=== PATIENT | female | born 1945 | race Hispanic/Latino ===

== ENCOUNTER 2021-03-24 02:32 | Observation (INO) | payer OTHER ==
[2021-03-24] MEDS ORDERED: D5 0.45 NS 0 ML IV ONE ×2 (02:41→08:39)
--- OUTSIDE RECORDS SUMMARY | 2021-03-24 02:44 | XMS REPORT | Continuity of Care Document ---
:1945 Author Organization [place] [facility] t Address [address] [place] [address] Care Team Providers Name Role Phone LINDY, Sunday Primary Care Physician Unavailable Mansoor Gallo Attending Clinician Unavailable JAMAR LAN Attending Clinician Unavailable Jamar Lan MD Attending Clinician Only, Test Attending Clinician Unavailable Doctor Unassigned, Name Attending Clinician Unavailable Lindy SUH, Sunday Attending Clinician Pob, Lab Main Attending Clinician Unavailable LINDY, Sunday Attending Clinician Unavailable JAMAR LAN Admitting Clinician Unavailable Jamar Lan MD Admitting Clinician Payers Payer Name Policy Type Policy Number Effective Date Expiration Date Anahy asher [employer] [id number] 2020spring 00:00:00 MEDICARE PART A [id number] 2000 \\T\\ B 00:00:00 Problems Condition Condition Condition Status Onset Resolution Last Treating Co mments Source Name Details Category Date Date Treatment Clinician Date Cervical Cervical Disease Active Unive rs nerve root nerve root 3-08 [place] Spinal Spinal Disease Active Univers stenosis stenosis 3-08 [place] of of lumbar of [place] without without Branch neurogenic neurogenic claudicati claudicati on on Decreased Decreased Disease Active Uni vers activities activities 3-08 it y of of daily of daily 00:00: [place] living living 00 Medical (ADL) (ADL) Branch Chronic Chronic Disease Active Univers midline midline 3-08 ity of low back low back 00:00: [place] pain with pain with 00 Medi charito right-side right-side Br anch d sciatica d sciatica Vitamin B1 Vitamin B1 Disease Active U nivers deficiency deficiency 3-08 it y of 00:00: [place] [facility] B12 B12 Disease Active Univers deficiency deficiency 3-08 it y of 00:00: [place] [facility] Pyridoxine 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 3-08 it y of 00:00: [place] [facility] Vitamin D Vitamin D Disease Active Uni vers deficiency deficiency 3-08 it y of 00:00: [place] 00 Medical Branch Hypothyroi Hypothyroi Disease Active U nivers dism dism 2-19 ity of (acquired) (acquired) 00:[place] [facility] [place] Glaucoma Glaucoma Disease Active Unive rs suspect of suspect of 3-04 it y of both eyes both [facility] Senile Senile Disease Active Univers nuclear 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 00:[place] [facility] [place] Diabetes 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 00:00: [place] without without 00 Medical retinopath retinopath Br anch y y Osteopenia Osteopenia Disease Active U nivers 3-05 ity of 00:00: [place] 00 Medical Branch Arthropath Arthropath Disease Active Overview : Univers y of hand y of hand 3-05 ICD10 ity of 00:00: Diagnosis Term Medical 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 ICD10 Diagnosis Term Unified [employer] Engineer Utility Generalize Generalize Disease Active U nivers d d 08-25 ity of osteoarthr osteoarthr 00:00: [place] osis, osis, 00 Medical unspecifie unspecifie Br anch d site d site Allergies, Adverse Reactions, Alerts Allergy Allergy Status Severity Reaction(s) Onset Inactive Treating Comm ents Source Name Type Date Date Clinician Iodine Propensi Active Hives 2005-02 Univers ty to 02-14 ity of adverse 00:00: [place] reaction 00 Medical s Branch IODINE DRUG Active Hives 2005-02 Univers INGREDI 02-14 ity of 00:00: [place] 00 Medical Branch Codeine Propensi Active Rash Univers ty to 12 ity of adverse 00:00: [place] reaction 00 Medical s Branch CODEINE DRUG Active Rash Univers INGREDI 12 ity of 00:00: [place] 00 Medical Branch Social History Social Habit Start Date Stop Date Quantity Comments Source Exposure to Not sure [facility] SARS-CoV-2 [place] Medical (event) Branch Alcohol intake 2020-11-25 2020-11-25 Current University of 00:00:00 00:00:00 non-drinker of [facility] alcohol Branch (finding) Tobacco use and 2020-10-21 2020-10-21 Never used Universit y of exposure 00:00:00 00:00:00 [facility] Sex [birth year] Universit y of 00:00:00 00:00:00 [facility] Smoking Status Start Date Stop Date Source Never smoker [facility] Medications Ordered Filled Start Stop Current Ordering Indication Dosage Frequency Signature Comments Components Source Medication Medication Date Date Medication? Clinician (SIG) Name Name tetracaine 2020-02 Yes PRN, Univers (PONTOCAINE 0-14 Starting ity of ) 0.5 % 14:59: on [facility] ophthalmic 00 11/27/20 Medic al drops at 0959, Branch Until Discontinu ed, Routine, Intra-op gentamicin 2020-02 Yes PRN, Univers injection 0-14 Starting ity of 14:59: on [facility] 00 11/27/20 Medical at 0959, [place] Until Discontinu ed, JAYLEN, Intra-op eye block 2020-02 Yes PRN, Univers syringe 11 0-14 Starting ity o f mL 14:59: on [facility] 11/27/20 Medical at 0959, [place] Until Discontinu ed, Intra-op EPINEPHrine 2020-02 Yes PRN, Univer s (PF) 0-14 Starting ity of 1:1,000 (1 14:59: on [facility] mg/mL) 00 11/27/20 Medical (ADRENALIN at 0959, Bran h (PF)) Until injection Discontinu ed, Routine, Intra-op DUOVISC 2020-02 Yes PRN, Univers (DUOVISC 0-14 Starting ity of VISCO 14:59: on [facility] ELASTIC) 3 00 11/27/20 Medic al %-4 %(0.5 at 0959, Branch mL) 1 % Until (0.55 mL) Discontinu intraocular ed, injection Routine, Intra-op tetracaine 2020-02- No PRN, Univer s (PONTOCAINE 0-14 10-14 Starting ity of ) 0.5 % 14:59: 18:15 on [facility] ophthalmic 00 :30 11/27/20 Medic al drops at 0959, Branch Until [facility] 11/27/20 at 1315, Routine, Intra-op gentamicin 2020-02- No PRN, Univer s injection 0-14 10-14 Starting ity o f 14:59: 18:15 on [facility] [place] 00 :30 11/27/20 Medical at 0959, Branch Until [facility]ya 11/27/20 at 1315, JAYLEN, Intra-op eye block 2020-02- No PRN, Univers syringe 11 0-14 14 Starting ity of mL 14:59: 18:15 on [facility] [place] 00 :30 11/27/20 Medical at 0959, Branch Until [facility]ya 11/27/20 at 1315, Intra-op EPINEPHrine 2020-02- No PRN, Unive rs (PF) 0-14 14 Starting ity of 1:1,000 (1 14:59: 18:15 on [place] mg/mL) 00 :30 11/27/20 Medical (ADRENALIN at 0959, Bran h (PF)) Until Niya injection 11/27/20 at 1315, Routine, Intra-op DUOVISC 2020-02- No PRN, Univers (DUOVISC 0-11-27 Starting ity of VISCO 14:59: 18:15 on [facility] [place] ELASTIC) 3 00 :30 11/27/20 Medic al %-4 %(0.5 at 0959, Branch mL) 1 % Until Niya (0.55 mL) 11/27/20 intraocular at 1315, injection Routine, Intra-op dexamethaso 2020-02 Yes PRN, Univer s ne 0-14 Starting ity of (DECADRON 14:58: on [facility] [place] PHOSPHATE) 00 11/27/20 Medic al injection at 0958, Branch Until Discontinu ed, Routine, Intra-op ceFAZolin 2020-02 Yes CONTINUOUS Un concepción (ANCEF) 0-14 PRN, ity of injection 14:58: [place] 00 on [facility] Medical 11/27/20 Branch at 0958, Until Discontinu ed, JAYLEN, Intra-op dexamethaso 2020-02- No PRN, Unive rs ne 0-14 10-14 Starting ity of (DECADRON 14:58: 18:15 on [facility] [place] PHOSPHATE) 00 :30 11/27/20 Medic al injection at 0958, Branch Until Niya 11/27/20 at 1315, Routine, Intra-op ceFAZolin 2020-02- No CONTINUOUS U nivers (ANCEF) 0-14 10-14 PRN, ity of injection 14:58: 18:15 Starting [place] 00 :30 on [facility] Medical 11/27/20 Branch at 0958, Until [place] 11/27/20 at 1315, JAYLEN, Intra-op balanced 2020-02 Yes PRN, Univers salt soln 0-14 Starting ity of no.2 irrig. 14:57: on [place] (BSS) 00 11/27/20 Medical ophthalmic at 0957, Branc h solution Until Discontinu ed, Routine, Intra-op balanced 2020-02- No PRN, Univers salt soln 0-14 10-14 Starting ity o f no.2 irrig. 14:57: 18:15 on [place] (BSS) 00 :30 11/27/20 Medical ophthalmic at 0957, Branc h solution Until Niya 11/27/20 at 1315, Routine, Intra-op mydriatic 2020-02- No .5mL 0.5 mL, Univ ers #5 0-14 10-14 Right Eye, ity of ophthalmic 12:45: 13:03 ONCE, 1 [place] solution 00 :00 dose, On Medical 0.5 mL [facility]ya Branch syringe 11/27/20 at 0745, Routine, DSU Pre-op lactated 2020-02- No 1000mL at 42 Unive rs ringers IV 0-14 10-14 mL/hr, ity of infusion 12:45: 13:03 1,000 mL, [place] 1,000 mL 00 :00 IV Medical Infusion, Branch ONCE, 1 dose, On [place]ya 11/27/20 at 0745, Routine, DSU Pre-op mydriatic 2020-02- No .5mL 0.5 mL, Univ ers #5 0-14 10-14 Right Eye, ity of ophthalmic 12:45: 13:03 ONCE, 1 [place] solution 00 :00 dose, On Medical 0.5 mL [place] Branch syringe 11/27/20 at 0745, Routine, DSU Pre-op lactated 2020-02- No 1000mL at 42 Unive rs ringers IV 0-14 10-14 mL/hr, ity of infusion 12:45: 13:03 1,000 mL, [place] 1,000 mL 00 :00 IV Medical Infusion, Branch ONCE, 1 dose, On Niya 11/27/20 at 0745, Routine, DSU Pre-op BD VEO 2020-02 Yes [id number] USE Univ ers INSULIN 0-04 DIRECTED 4 ity of SYR, HALF 00:00: TIMES [place] UNIT, 0.3 00 DAILY Medical mL 31 gauge Branch x 15/64" Syrg BD VEO 2020-02 Yes [id number] USE Univ ers INSULIN 0-04 DIRECTED 4 ity of SYR, HALF 00:00: TIMES [place] UNIT, 0.3 00 DAILY Medical mL 31 gauge Branch x 15/64" Syrg BD VEO 2020-02 Yes [id number] USE Univ ers INSULIN 0-04 DIRECTED 4 ity of SYR, HALF 00:00: TIMES [place] UNIT, 0.3 00 DAILY Medical mL 31 gauge Branch x 15/64" Syrg gentamicin Yes PRN, Univers injection 10-23 Starting ity of 14:04: Niya 10/23/20 [place] 00 at 0904, Medical Until Branch Discontinu ed, JAYLEN, Intra-op EPINEPHrine Yes PRN, Univer s (PF) 10-23 Starting ity of 1:1,000 (1 14:04: [place] 10/23/20 [place] mg/mL) 00 at 0904, Medical (ADRENALIN Until Branch (PF)) Discontinu injection ed, Routine, Intra-op gentamicin Yes PRN, Univers injection 10-23 Starting ity of 14:04: [facility] 10/23/20 [place] 00 at 0904, Medical Until Branch Discontinu ed, JAYLEN, Intra-op EPINEPHrine Yes PRN, Univer s (PF) 10-23 Starting ity of 1:1,000 (1 14:04: [place] 10/23/20 [place] mg/mL) 00 at 0904, Medical (ADRENALIN Until Branch (PF)) Discontinu injection ed, Routine, Intra-op gentamicin 2020- No PRN, Univer s injection 10-23 Starting ity o f 14:04: 17:14 [facility]ya 10/23/20 [place] 00 :08 at 0904, Medical Until Niya Branch 10/23/20 at 1214, JAYLEN, Intra-op EPINEPHrine 2020- No PRN, Unive rs (PF) 10-23 Starting ity of 1:1,000 (1 14:04: 17:14 Niya 10/23/20 [place] mg/mL) 00 :08 at 0904, Medical (ADRENALIN Until Niya Bran ch (PF)) 10/23/20 at injection 1214, Routine, Intra-op gentamicin 2020- No PRN, Univer s injection 10-23 Starting ity o f 14:04: 17:14 Niya 10/23/20 [place] 00 :08 at 0904, Medical Until Niya Branch 10/23/20 at 1214, JAYLEN, Intra-op EPINEPHrine 2020- No PRN, Unive rs (PF) 10-23 Starting ity of 1:1,000 (1 14:04: 17:14 [facility]ya 10/23/20 [place] mg/mL) 00 :08 at 0904, Medical (ADRENALIN Until Niya Bran ch (PF)) 10/23/20 at injection 1214, Routine, Intra-op dexamethaso Yes PRN, Univer s ne 10-23 Starting ity of (DECADRON 14:03: [place] 10/23/20 [place] PHOSPHATE[place] 00 at 0903, Medic al injection Until Branch Discontinu ed, Routine, Intra-op ceFAZolin 0 Yes PRN, Univers (ANCEF) 10-23 Starting ity of injection 14:03: [place] 10/23/20 [place] 00 at 09, Medical Until Branch Discontinu ed, JAYLEN, Intra-op balanced 0 Yes PRN, Univers salt soln 10-23 Starting ity of no.2 irrig. 14:03: [place] 10/23/20 [place] (BSS) 00 at 09, Medical ophthalmic Until Branch solution Discontinu ed, Routine, Intra-op dexamethaso 0 Yes PRN, Univer s ne 10-23 Starting ity of (DECADRON 14:03: [place] 10/23/20 [place] PHOSPHATE[place] 00 at 0903, Medic al injection Until Branch Discontinu ed, Routine, Intra-op ceFAZolin Yes PRN, Univers (ANC) 10-23 Starting ity of injection 14:03: [place] 10/23/20 [place] 00 at 0903, Medical Until Branch Discontinu ed, JAYLEN, Intra-op balanced Yes PRN, [facility] 10-23 Starting ity of no.2 irrig. 14:03: [place] 10/23/20 [place] (BSS) 00 at 0903, Medical ophthalmic Until Branch solution Discontinu ed, Routine, Intra-op dexamethaso 2020- No PRN, Unive rs ne 10-23 Starting ity of (DECADRON 14:03: 17:14 [place] 10/23/20 [place] PHOSPHATE) 00 :08 at 09, Medic al injection Until Niya Branc h 10/23/20 at 1214, Routine, Intra-op ceFAZolin 2020- No PRN, Univers (ANC) 10-23 Starting ity of injection 14:03: 17:14 [place] 10/23/20 [place] 00 :08 at 0903, Medical Until [facility] Branch 10/23/20 at 1214, JAYLEN, Intra-op balanced 2020- No PRN, [facility] 10-23 Starting ity o f no.2 irrig. 14:03: 17:14 [place]ya 10/23/20 [place] (BSS) 00 :08 at 0903, Medical ophthalmic Until Niya Bran ch solution 10/23/20 at 1214, Routine, Intra-op dexamethaso 2020- No PRN, Unive rs ne 10-23 Starting ity of (DECADRON 14:03: 17:14 [place] 10/23/20 [place] PHOSPHATE) 00 :08 at 0903, Medic al injection Until Niya Branc h 10/23/20 at 1214, Routine, Intra-op ceFAZolin 2020- No PRN, Univers (ANC) 10-23 Starting ity of injection 14:03: 17:14 [place] 10/23/20 [place] 00 :08 at 0903, Medical Until [facility] Branch 10/23/20 at 1214, JAYLEN, Intra-op balanced 2020- No PRN, Univers [facility] soln 10-23 Starting ity o f no.2 irrig. 14:03: 17:14 Niya 10/23/20 [place] (BSS) 00 :08 at 0903, Medical ophthalmic Until Niya Bran ch solution 10/23/20 at 1214, Routine, Intra-op mydriatic 2020- No .5mL 0.5 mL, Univ ers #5 10-23 Left Eye, ity of ophthalmic 12:15: 12:22 ONCE, 1 [place] solution 00 :00 dose, Niya Medica l 0.5 mL 10/23/20 at Branch syringe 0715, Routine, DSU Pre-op lactated 2020- No 1000mL at 42 [facility] [place] [facility]ers IV 10-23 mL/hr, ity of infusion 12:15: 12:22 1,000 mL, [place] 1,000 mL 00 :00 IV Medical Infusion, Branch ONCE, 1 dose, Niya 10/23/20 at 0715, Routine, DSU Pre-op mydriatic 2020- No .5mL 0.5 mL, Univ ers #5 10-23 Left Eye, ity of ophthalmic 12:15: 12:22 ONCE, 1 [place] solution 00 :00 dose, Niya Medica l 0.5 mL 10/23/20 at Branch syringe 0715, Routine, DSU Pre-op lactated 2020- No 1000mL at 42 [facility] [place] [facility] ringers IV 10-23 mL/hr, ity of infusion 12:15: 12:22 1,000 mL, [place] 1,000 mL 00 :00 IV Medical Infusion, Branch ONCE, 1 dose, Niya 10/23/20 at 0715, Routine, DSU Pre-op mydriatic 2020- No .5mL 0.5 mL, Univ ers #5 10-23 Left Eye, ity of ophthalmic 12:15: 12:22 ONCE, 1 [place] solution 00 :00 dose, Niya Medica l 0.5 mL 10/23/20 at Branch syringe 0715, Routine, DSU Pre-op lactated 2020- No 1000mL at 42 Unive rs ringers IV 10-23 mL/hr, ity of infusion 12:15: 12:22 1,000 mL, [place] 1,000 mL 00 :00 IV Medical Infusion, Branch ONCE, 1 dose, Niya 10/23/20 at 0715, Routine, DSU Pre-op mydriatic 2020- No .5mL 0.5 mL, Univ ers #5 10-23 Left Eye, ity of ophthalmic 12:15: 12:22 ONCE, 1 [place] solution 00 :00 dose, Niya Medica l 0.5 mL 10/23/20 at Branch syringe 0715, Routine, DSU Pre-op lactated 2020- No 1000mL at 42 Unive rs ringers IV 10-23 mL/hr, ity of infusion 12:15: 12:22 1,000 mL, [place] 1,000 mL 00 :00 IV Medical Infusion, Branch ONCE, 1 dose, Niya 10/23/20 at 0715, Routine, DSU Pre-op BD VEO 2020-0 Yes [id number] USE Univ ers INSULIN 8-19 DIRECTED 4 ity of SYRINGE UF 00:00: TIMES [place] 0.3 mL DAILY Medical gauge x Branch 15/64" Syrg BD VEO 2020-0 Yes [id number] USE Univ ers INSULIN 8-19 DIRECTED 4 ity of SYRINGE UF 00:00: TIMES [place] 0.3 mL DAILY Medical gauge x Branch 15/64" Syrg BD VEO 2020-0 Yes [id number] USE Univ ers INSULIN 8-19 DIRECTED 4 ity of SYRINGE UF 00:00: TIMES [place] 0.3 mL DAILY Medical gauge x Branch 15/64" Syrg BD VEO 2020-0 Yes [id number] USE Univ ers INSULIN 8-19 DIRECTED 4 ity of SYRINGE UF 00:00: TIMES [place] 0.3 mL DAILY Medical gauge x Branch 15/64" Syrg BD VEO 2020-0 Yes [id number] USE Univ ers INSULIN 8-19 DIRECTED 4 ity of SYRINGE UF 00:00: TIMES [place] 0.3 mL DAILY Medical gauge x Branch 15/64" Syrg BD VEO 2020-0 Yes [id number] USE Univ ers INSULIN 8-19 DIRECTED 4 ity of SYRINGE UF 00:00: TIMES [place] 0.3 mL 31 DAILY Medical gauge x Branch 15/64" Syrg BD VEO 2020-0 Yes [id number] USE Univ ers INSULIN 8-19 DIRECTED 4 ity of SYRINGE UF 00:00: TIMES [place] 0.3 mL 31 DAILY Medical gauge x Branch 15/64" Syrg BD VEO 2020-0 Yes [id number] USE Univ ers INSULIN 8-19 DIRECTED 4 ity of SYRINGE UF 00:00: TIMES [place] 0.3 mL DAILY Medical gauge x Branch 15/64" Syrg BD VEO 2020-0 Yes [id number] USE Univ ers INSULIN 8-19 DIRECTED 4 ity of SYRINGE UF 00:00: TIMES [place] 0.3 mL DAILY Medical gauge x Branch 15/64" Syrg BD VEO 2020-0 Yes [id number] USE Univ ers INSULIN 8-19 DIRECTED 4 ity of SYRINGE UF 00:00: TIMES [place] 0.3 mL DAILY Medical gauge x Branch 15/64" Syrg BD VEO 2020-0 Yes [id number] USE Univ ers INSULIN 8-19 DIRECTED 4 ity of SYRINGE UF 00:00: TIMES [place] 0.3 mL DAILY Medical gauge x Branch 15/64" Syrg BD VEO 2020-0 Yes [id number] USE Univ ers INSULIN 8-19 DIRECTED 4 ity of SYRINGE UF 00:00: TIMES [place] 0.3 mL 31 DAILY Medical gauge x Branch 15/64" Syrg BD VEO 2020-0 Yes [id number] USE Univ ers INSULIN 8-19 DIRECTED 4 ity of SYRINGE UF 00:00: TIMES [place] 0.3 mL DAILY Medical gauge x Branch 15/64" Syrg BD VEO 2020-0 Yes [id number] USE Univ ers INSULIN 8-19 DIRECTED 4 ity of SYRINGE UF 00:00: TIMES [place] 0.3 mL 31 DAILY Medical gauge x Branch 15/64" Syrg BD VEO 2020-0 Yes [id number] USE Univ ers INSULIN 8-19 DIRECTED 4 ity of SYRINGE UF 00:00: TIMES [place] 0.3 mL 31 DAILY Medical gauge x Branch 15/64" Syrg BD VEO 2020-0 Yes [id number] USE Univ ers INSULIN 8-19 DIRECTED 4 ity of SYRINGE UF 00:00: TIMES [place] 0.3 mL 31 00 DAILY Medical gauge x Branch " Syrg EUTHYROX 2020-0 Yes [id number] TAKE 1 Un concepción 125 mcg 7-30 TABLET BY ity of tablet 00:00: MOUTH ONCE [place] 00 DAILY IN [facility] MORNING EUTHYROX 2020-0 Yes [id number] TAKE 1 Un concepción 125 mcg 7-30 TABLET BY ity of tablet 00:00: MOUTH ONCE [place] 00 DAILY IN [facility] MORNING EUTHYROX 2020-0 Yes [id number] TAKE 1 Un concepción 125 mcg 7-30 TABLET BY ity of tablet 00:00: MOUTH ONCE [place] 00 DAILY IN [facility] MORNING EUTHYROX 2020-0 Yes [id number] TAKE 1 Un concepción 125 mcg 7-30 TABLET BY ity of tablet 00:00: MOUTH ONCE [place] 00 DAILY IN [facility] MORNING EUTHYROX 2020-0 Yes [id number] TAKE 1 Un concepción 125 mcg 7-30 TABLET BY ity of tablet 00:00: MOUTH ONCE [place] 00 DAILY IN [facility] MORNING EUTHYROX 2020-0 Yes [id number] TAKE 1 Un concepción 125 mcg 7-30 TABLET BY ity of tablet 00:00: MOUTH ONCE [place] 00 DAILY IN [facility] MORNING EUTHYROX 2020-0 Yes [id number] TAKE 1 Un concepción 125 mcg 7-30 TABLET BY ity of tablet 00:00: MOUTH ONCE [place] 00 DAILY IN [facility] MORNING EUTHYROX 2020-0 Yes [id number] TAKE 1 Un concepción 125 mcg 7-30 TABLET BY ity of tablet 00:00: MOUTH ONCE [place] 00 DAILY IN [facility] MORNING EUTHYROX 2020-0 Yes [id number] TAKE 1 Un concepción 125 mcg 7-30 TABLET BY ity of tablet 00:00: MOUTH ONCE [place] 00 DAILY IN [facility] MORNING EUTHYROX 2020-0 Yes [id number] TAKE 1 Un concepción 125 mcg 7-30 TABLET BY ity of tablet 00:00: MOUTH ONCE [place] 00 DAILY IN [facility] MORNING EUTHYROX 2020-0 Yes [id number] TAKE 1 Un concepción 125 mcg 7-30 TABLET BY ity of tablet 00:00: MOUTH ONCE [place] 00 DAILY IN [facility] MORNING EUTHYROX 2020-0 Yes [id number] TAKE 1 Un concepción 125 mcg 7-30 TABLET BY ity of tablet 00:00: MOUTH ONCE [place] 00 DAILY IN [facility] MORNING EUTHYROX 2020-0 Yes [id number] TAKE 1 Un concepción 125 mcg 7-30 TABLET BY ity of tablet 00:00: MOUTH ONCE [place] 00 DAILY IN [facility] MORNING EUTHYROX 2020-0 Yes [id number] TAKE 1 Un concepción 125 mcg 7-30 TABLET BY ity of tablet 00:00: MOUTH ONCE [place] 00 DAILY IN [facility] [place] MORNING EUTHYROX 2020-0 Yes [id number] TAKE 1 Un concepción 125 mcg 7-30 TABLET BY ity of tablet 00:00: MOUTH ONCE [place] 00 DAILY IN [facility] MORNING EUTHYROX 2020-0 Yes [id number] TAKE 1 Un concepción 125 mcg 7-30 TABLET BY ity of tablet 00:00: MOUTH ONCE [place] 00 DAILY IN [facility] MORNING EUTHYROX 2020-0 Yes [id number] TAKE 1 Un concepción 125 mcg 7-30 TABLET BY ity of tablet 00:00: MOUTH ONCE [place] 00 DAILY IN [facility] [place] MORNING PREGABALIN 2020-0 Yes [id number] Take 1 Univers 300 mg 6-05 capsule by ity of capsule 00:00: mouth [place] 00 twice Medical daily Branch PREGABALIN 2020-0 Yes [id number] Take 1 Univers 300 mg 6-05 capsule by ity of capsule 00:00: mouth [place] 00 twice Medical daily Branch PREGABALIN 2020-0 Yes [id number] Take 1 Univers 300 mg 6-05 capsule by ity of capsule 00:00: mouth [place] 00 twice Medical daily Branch PREGABALIN 2020-0 Yes [id number] Take 1 Univers 300 mg 6-05 capsule by ity of capsule 00:00: mouth [place] 00 twice Medical daily Branch PREGABALIN 2020-0 Yes [id number] Take 1 Univers 300 mg 6-05 capsule by ity of capsule 00:00: mouth [place] 00 twice Medical daily Branch PREGABALIN 2020-0 Yes [id number] Take 1 Univers 300 mg 6-05 capsule by ity of capsule 00:00: mouth [place] 00 twice Medical daily Branch PREGABALIN 2020-0 Yes [id number] Take 1 Univers 300 mg 6-05 capsule by ity of capsule 00:00: mouth [place] 00 twice Medical daily Branch PREGABALIN 2020-0 Yes [id number] Take 1 Univers 300 mg 6-05 capsule by ity of capsule 00:00: mouth twice Medical daily Branch PREGABALIN 2020-0 Yes [id number] Take 1 Univers 300 mg 6-05 capsule by ity of capsule 00:00: mouth twice Medical daily Branch PREGABALIN 2020-0 Yes [id number] Take 1 Univers 300 mg 6-05 capsule by ity of capsule 00:00: mouth twice Medical daily Branch PREGABALIN 2020-0 Yes [id number] Take 1 Univers 300 mg 6-05 capsule by ity of capsule 00:00: mouth twice Medical daily Branch PREGABALIN 2020-0 Yes [id number] Take 1 Univers 300 mg 6-05 capsule by ity of capsule 00:00: mouth twice Medical daily Branch PREGABALIN 2020-0 Yes [id number] Take 1 Univers 300 mg 6-05 capsule by ity of capsule 00:00: mouth twice Medical daily Branch PREGABALIN 2020-0 Yes [id number] Take 1 Univers 300 mg 6-05 capsule by ity of capsule 00:00: mouth twice Medical daily Branch PREGABALIN 2020-0 Yes [id number] Take 1 Univers 300 mg 6-05 capsule by ity of capsule 00:00: mouth twice Medical daily Branch PREGABALIN 2020-0 Yes [id number] Take 1 Univers 300 mg 6-05 capsule by ity of capsule 00:00: mouth twice Medical daily Branch PREGABALIN 2020-0 Yes [id number] Take 1 Univers 300 mg 6-05 capsule by ity of capsule 00:00: mouth twice Medical daily Branch PREGABALIN 2020-0 Yes [id number] Take 1 Univers 300 mg 6-05 capsule by ity of capsule 00:00: mouth twice Medical daily Branch PREGABALIN 2020-0 Yes [id number] Take 1 Univers 300 mg 6-05 capsule by ity of capsule 00:00: mouth twice Medical daily Branch PREGABALIN 2020-0 Yes [id number] Take 1 Univers 300 mg 6-05 capsule by ity of capsule 00:00: mouth twice Medical daily Branch PREGABALIN 2020-0 Yes [id number] Take 1 Univers 300 mg 6-05 capsule by [facility] capsule 00:00: mouth twice Medical daily Branch PREGABALIN 2020-0 Yes [id number] Take 1 [facility] 300 mg 6-05 capsule by [facility] capsule 00:00: mouth 00 twice Medical daily Branch METFORMIN 2020-0 Yes [id number] TAKE 1 [facility] 1,000 mg 3-19 TABLET BY [facility] tablet 00:00: MOUTH 00 TWICE Medical DAILY WITH Branch MEALS FOR DIABETES METFORMIN 2020-0 Yes [id number] TAKE 1 [facility] 1,000 mg 3-19 TABLET BY [facility] of tablet 00:00: MOUTH 00 TWICE Medical DAILY WITH Branch MEALS FOR DIABETES METFORMIN 2020-0 Yes [id number] TAKE 1 [facility] 1,000 mg 3-19 TABLET BY [facility] tablet 00:00: MOUTH 00 TWICE Medical DAILY WITH Branch MEALS FOR DIABETES METFORMIN 2020-0 Yes [id number] TAKE 1 [facility] 1,000 mg 3-19 TABLET BY [facility] tablet 00:00: MOUTH 00 TWICE Medical DAILY WITH Branch MEALS FOR DIABETES METFORMIN 2020-0 Yes [id number] TAKE 1 [facility] 1,000 mg 3-19 TABLET BY [facility] of tablet 00:00: MOUTH TWICE Medical DAILY WITH Branch MEALS FOR DIABETES METFORMIN 2020-0 Yes [id number] TAKE 1 [facility] 1,000 mg 3-19 TABLET BY [facility] of tablet 00:00: MOUTH TWICE Medical DAILY WITH Branch MEALS FOR DIABETES METFORMIN 2020-0 Yes [id number] TAKE 1 [facility] 1,000 mg 3-19 TABLET BY [facility] tablet 00:00: MOUTH TWICE Medical DAILY WITH Branch MEALS FOR DIABETES METFORMIN 2020-0 Yes [id number] TAKE 1 [facility] 1,000 mg 3-19 TABLET BY [facility] of tablet 00:00: MOUTH TWICE Medical DAILY WITH Branch MEALS FOR DIABETES METFORMIN 2020-0 Yes [id number] TAKE 1 [facility] 1,000 mg 3-19 TABLET BY [facility] of tablet 00:00: MOUTH 00 TWICE Medical DAILY WITH Branch MEALS FOR DIABETES METFORMIN 2020-0 Yes [id number] TAKE 1 [facility] 1,000 mg 3-19 TABLET BY [facility] of tablet 00:00: MOUTH 00 TWICE Medical DAILY WITH Branch MEALS FOR DIABETES METFORMIN 2020-0 Yes [id number] TAKE 1 [facility] 1,000 mg 3-19 TABLET BY [facility] of tablet 00:00: MOUTH 00 TWICE Medical DAILY WITH Branch MEALS FOR DIABETES METFORMIN 2020-0 Yes [id number] TAKE 1 [facility] 1,000 mg 3-19 TABLET BY [facility] of tablet 00:00: MOUTH 00 TWICE Medical DAILY WITH Branch MEALS FOR DIABETES METFORMIN 2020-0 Yes [id number] TAKE 1 [facility] 1,000 mg 3-19 TABLET BY [facility] of tablet 00:00: MOUTH 00 TWICE Medical DAILY WITH Branch MEALS FOR DIABETES METFORMIN 2020-0 Yes [id number] TAKE 1 [facility] 1,000 mg 3-19 TABLET BY [facility] of tablet 00:00: MOUTH 00 TWICE Medical DAILY WITH Branch MEALS FOR DIABETES METFORMIN 2020-0 Yes [id number] TAKE 1 [facility] 1,000 mg 3-19 TABLET BY [facility] tablet 00:00: MOUTH 00 TWICE Medical DAILY WITH Branch MEALS FOR DIABETES METFORMIN 2020-0 Yes [id number] TAKE 1 [facility] 1,000 mg 3-19 TABLET BY [facility] of tablet 00:00: MOUTH 00 TWICE Medical DAILY WITH Branch MEALS FOR DIABETES METFORMIN 2020-0 Yes [id number] TAKE 1 [facility] 1,000 mg 3-19 TABLET BY [facility] of tablet 00:00: MOUTH 00 TWICE Medical DAILY WITH Branch MEALS FOR DIABETES METFORMIN 2020-0 Yes [id number] TAKE 1 [facility] 1,000 mg 3-19 TABLET BY [facility] of tablet 00:00: MOUTH 00 TWICE Medical DAILY WITH Branch MEALS FOR DIABETES METFORMIN 2020-0 Yes [id number] TAKE 1 [facility] 1,000 mg 3-19 TABLET BY [facility] of tablet 00:00: MOUTH 00 TWICE Medical DAILY WITH Branch MEALS FOR DIABETES METFORMIN 2020-0 Yes [id number] TAKE 1 [facility] 1,000 mg 3-19 TABLET BY [facility] of tablet 00:00: MOUTH 00 TWICE Medical DAILY WITH Branch MEALS FOR DIABETES METFORMIN 2020-0 Yes [id number] TAKE 1 [facility] 1,000 mg 3-19 TABLET BY [facility] of tablet 00:00: MOUTH 00 TWICE Medical DAILY WITH Branch MEALS FOR DIABETES METFORMIN 2020-0 Yes [id number] TAKE 1 [facility] 1,000 mg 3-19 TABLET BY [facility] of tablet 00:00: MOUTH 00 TWICE Medical DAILY WITH Branch MEALS FOR DIABETES METFORMIN 2020-0 Yes [id number] TAKE 1 [facility] 1,000 mg 3-19 TABLET BY [facility] tablet 00:00: MOUTH 00 TWICE Medical DAILY WITH Branch MEALS FOR DIABETES METFORMIN 2020-0 Yes [id number] TAKE 1 [facility] 1,000 mg 3-19 TABLET BY [facility] tablet 00:00: MOUTH TWICE Medical DAILY WITH Branch MEALS FOR DIABETES METFORMIN 2020-0 Yes [id number] TAKE 1 [facility] 1,000 mg 3-19 TABLET BY [facility] of tablet 00:00: MOUTH TWICE Medical DAILY WITH Branch MEALS FOR DIABETES blood sugar 2020-0 Yes [id number] Check [facility] diagnostic 3-06 sugars 2-3 [facility] of strip 00:00: times a day. Dx Medical Code Branch E11.9. Accu[employer]k guide me brand. blood sugar 2020-0 Yes [id number] Check [facility] diagnostic 3-06 sugars 2-3 ity of strip 00:00: times a day. Dx Medical Code Branch E11.9. Accu[employer]k guide me brand. blood sugar 2020-0 Yes [id number] Check [facility] diagnostic 3-06 sugars 2-3 ity of strip 00:00: times a day. Dx Medical Code Branch E11.9. [employer]k guide me brand. blood sugar 2020-0 Yes [id number] Check [facility] diagnostic 3-06 sugars 2-3 ity of strip 00:00: times a day. Dx Medical Code Branch E11.9. [employer]k guide me brand. blood sugar 2020-0 Yes [id number] Check [facility] diagnostic 3-06 sugars 2-3 ity of strip 00:00: times a day. Dx Medical Code Branch E11.9. [employer]k guide me brand. blood sugar 2020-0 Yes [id number] Check [facility] diagnostic 3-06 sugars 2-3 ity of strip 00:00: times a day. Dx Medical Code Branch E11.9. [employer] guide me brand. blood sugar 2020-0 Yes [id number] Check [facility] diagnostic 3-06 sugars 2-3 ity of strip 00:00: times a day. Dx Medical Code Branch E11.9. [employer] guide me brand. blood sugar 2020-0 Yes [id number] Check [facility] diagnostic 3-06 sugars 2-3 ity of strip 00:00: times a day. Dx Medical Code Branch E11.9. [employer]k guide me brand. blood sugar 2020-0 Yes [id number] Check [facility] diagnostic 3-06 sugars 2-3 ity of strip 00:00: times a day. Dx Medical Code Branch E11.9. [employer]k guide me brand. blood sugar 2020-0 Yes [id number] Check [facility] diagnostic 3-06 sugars 2-3 ity of strip 00:00: times a day. Dx Medical Code Branch E11.9. [employer]k guide me brand. blood sugar 2020-0 Yes [id number] Check [facility] diagnostic 3-06 sugars 2-3 ity of strip 00:00: times a day. Dx Medical Code Branch E11.9. [employer]k guide me brand. blood sugar 2020-0 Yes [id number] Check [facility] diagnostic 3-06 sugars 2-3 ity of strip 00:00: times a day. Dx Medical Code Branch E11.9. [employer]k guide me brand. blood sugar 2020-0 Yes [id number] Check [facility] diagnostic 3-06 sugars 2-3 ity of strip 00:00: times a day. Dx Medical Code Branch E11.9. Acc[employer]k guide me brand. blood sugar 2020-0 Yes [id number] Check [facility] diagnostic 3-06 sugars 2-3 ity of strip 00:00: times a day. Dx Medical Code Branch E11.9. Acc[employer]k guide me brand. blood sugar 2020-0 Yes [id number] Check [facility] diagnostic 3-06 sugars 2-3 ity of strip 00:00: times a day. Dx Medical Code Branch E11.9. [employer]k guide me brand. blood sugar 2020-0 Yes [id number] Check [facility] diagnostic 3-06 sugars 2-3 ity of strip 00:00: times a day. Dx Medical Code Branch E11.9. Acc[employer]k guide me brand. blood sugar 2020-0 Yes [id number] Check [facility] diagnostic 3-06 sugars 2-3 ity of strip 00:00: times a day. Dx Medical Code Branch E11.9. [employer]k guide me brand. blood sugar 2020-0 Yes [id number] Check [facility] diagnostic 3-06 sugars 2-3 ity of strip 00:00: times a day. Dx Medical Code Branch E11.9. [employer]k guide me brand. blood sugar 2020-0 Yes [id number] Check [facility] diagnostic 3-06 sugars 2-3 ity of strip 00:00: times a day. Dx Medical Code Branch E11.9. Acc[employer]k guide me brand. blood sugar 2020-0 Yes [id number] Check [facility] diagnostic 3-06 sugars 2-3 ity of strip 00:00: times a [place] 00 day. Dx Medical Code Branch E11.9. Accu[employer]k guide me brand. blood sugar 2020-0 Yes [id number] Check [facility] diagnostic 3-06 sugars 2-3 ity of strip 00:00: times a day. Dx Medical Code Branch E11.9. Accu[employer]k guide me brand. blood sugar 2020-0 Yes [id number] Check [facility] diagnostic 3-06 sugars 2-3 ity of strip 00:00: times a 00 day. Dx Medical Code Branch E11.9. Acc[employer]k guide me brand. blood sugar 2020-0 Yes [id number] Check [facility] diagnostic 3-06 sugars 2-3 ity of strip 00:00: times a day. Dx Medical Code Branch E11.9. Acc[employer]k guide me brand. blood sugar 2020-0 Yes [id number] Check [facility] diagnostic 3-06 sugars 2-3 ity of strip 00:00: times a day. Dx Medical Code Branch E11.9. Accu[employer]k guide me brand. blood sugar 2020-0 Yes [id number] Check [facility] diagnostic 3-06 sugars 2-3 ity of strip 00:00: times a day. Dx Medical Code Branch E11.9. Acc[employer]k guide me brand. blood sugar 2020-0 Yes [id number] Check [facility] diagnostic 3-06 sugars 2-3 ity of strip 00:00: times a day. Dx Medical Code Branch E11.9. Acc[employer]k guide me brand. blood sugar 2020-0 Yes [id number] Check [facility] diagnostic 3-06 sugars 2-3 ity of strip 00:00: times a 00 day. Dx Medical Code Branch E11.9. Acc[employer]k guide me brand. blood sugar 2020-0 Yes [id number] Check [facility] diagnostic 3-06 sugars 2-3 ity of strip 00:00: times a [place] day. Dx Medical Code Branch E11.9. AccuChek guide me brand. blood sugar 2020-0 Yes [id number] Check [facility] diagnostic 3-06 sugars 2-3 ity of strip 00:00: times a 00 day. Dx Medical Code Branch E11.9. Accu[employer]k guide me brand. pregabalin 2019-1 Yes [id number] 300mg Take 1 [facility] 300 mg 2-02 capsule by [facility] capsule 00:00: mouth 2 [place] (two) Medical times Branch daily. pregabalin 2018-02 Yes [id number] 300mg Take 1 [facility] 300 mg 2-02 capsule by [facility] of capsule 00:00: mouth 2 00 (two) Medical times Branch daily. pregabalin 2018-02 Yes [id number] 300mg Take 1 [facility] 300 mg 2-02 capsule by [facility] of capsule 00:00: mouth 2 [place] (two) Medical times Branch daily. pregabalin 2018-02 Yes [id number] 300mg Take 1 [facility] 300 mg 2-02 capsule by [facility] of capsule 00:00: mouth 2 [place] (two) Medical times Branch daily. pregabalin 2018-02 Yes [id number] 300mg Take 1 [facility] 300 mg 2-02 capsule by [facility] of capsule 00:00: mouth 2 [place] 00 (two) Medical times Branch daily. pregabalin 2018-02 Yes [id number] 300mg Take 1 [facility] 300 mg 2-02 capsule by [facility] of capsule 00:00: mouth 2 [place] (two) Medical times Branch daily. pregabalin 2018-02 Yes [id number] 300mg Take 1 [facility] 300 mg 2-02 capsule by [facility] of capsule 00:00: mouth 2 [place] (two) Medical times Branch daily. pregabalin 2018-02 Yes [id number] 300mg Take 1 [facility] 300 mg 2-02 capsule by [facility] of capsule 00:00: mouth 2 [place] 00 (two) Medical times Branch daily. pregabalin 2018-02 2020- No [id number] 300mg Take 1 [facility] 300 mg 2-02 06-05 capsule by [facility] of capsule 00:00: 00:00 mouth 2 [place] 00 :00 (two) Medical times Branch daily. losartan 2018-02 Yes [id number] 100mg Take 1 [facility] vers 100 mg 1-08 tablet by [facility] of tablet 00:00: mouth [place] 00 daily. For Medical blood Branch pressure atorvastati 2018-02 Yes [id number] 20mg Take 1 [facility] n (LIPITOR) 1-08 tablet by ity of 20 mg 00:00: mouth at [place] tablet 00 bedtime. Medical For Branch cholestero l insulin 2018-02 Yes [id number] 30U inject 30 [facility] glargine 1-08 Units ity of (LANTUS 00:00: under the [place] U-100 00 skin at Medical INSULIN) bedtime. Branch 100 unit/mL injection hydroCHLORO 2018-02 Yes [id number] 50mg Take 1 [facility] thiazide 50 1-08 tablet by [facility] of mg tablet 00:00: mouth [place] 00 daily. For Medical blood Branch pressure. losartan 2018-02 Yes [id number] 100mg Take 1 [facility] vers 100 mg 1-08 tablet by [facility] of tablet 00:00: mouth [place] 00 daily. For Medical blood Branch pressure atorvastati 2018-02 Yes [id number] 20mg Take 1 [facility] n (LIPITOR) 1-08 tablet by it[facility] of 20 mg 00:00: mouth at [place] tablet 00 bedtime. Medical For Branch cholestero l insulin 2018-02 Yes [id number] 30U inject 30 [facility] glargine 1-08 Units ity of (LANTUS 00:00: under the [place] U-100 00 skin at Medical INSULIN) bedtime. Branch 100 unit/mL injection hydroCHLORO 2018-02 Yes [id number] 50mg Take 1 [facility] thiazide 50 1-08 tablet by [facility] of mg tablet 00:00: mouth [place] 00 daily. For Medical blood Branch pressure. losartan 2018-02 Yes [id number] 100mg Take 1 [facility] vers 100 mg 1-08 tablet by [facility] of tablet 00:00: mouth [place] 00 daily. For Medical blood Branch pressure atorvastati 2018-02 Yes [id number] 20mg Take 1 [facility] n (LIPITOR) 1-08 tablet by [facility] of 20 mg 00:00: mouth at [place] tablet 00 bedtime. Medical For Branch cholestero l insulin 2018-02 Yes [id number] 30U inject 30 [facility] glargine 1-08 Units ity of (LANTUS 00:00: under the [place] U-100 00 skin at Medical INSULIN) bedtime. Branch 100 unit/mL injection hydroCHLORO 2018-02 Yes [id number] 50mg Take 1 [facility] thiazide 50 1-08 tablet by [facility] of mg tablet 00:00: mouth [place] 00 daily. For Medical blood Branch pressure. losartan 2018-02 Yes [id number] 100mg Take 1 [facility] vers 100 mg 1-08 tablet by [facility] of tablet 00:00: mouth [place] 00 daily. For Medical blood Branch pressure atorvastati 2018-02 Yes [id number] 20mg Take 1 [facility] n (LIPITOR) 1-08 tablet by ity of 20 mg 00:00: mouth at [place] tablet 00 bedtime. Medical For Branch cholestero l insulin 2018-02 Yes [id number] 30U inject 30 [facility] glargine 1-08 Units ity of (LANTUS 00:00: under the [place] U-100 00 skin at Medical INSULIN) bedtime. Branch 100 unit/mL injection hydroCHLORO 2018-02 Yes [id number] 50mg Take 1 [facility] thiazide 50 1-08 tablet by [facility] of mg tablet 00:00: mouth [place] 00 daily. For Medical blood Branch pressure. losartan 2018-02 Yes [id number] 100mg Take 1 [facility] vers 100 mg 1-08 tablet by [facility] of tablet 00:00: mouth [place] 00 daily. For Medical blood Branch pressure atorvastati 2018-02 Yes [id number] 20mg Take 1 [facility] n (LIPITOR) 1-08 tablet by ity of 20 mg 00:00: mouth at [place] tablet 00 bedtime. Medical For Branch cholestero l insulin 2018-02 Yes [id number] 30U inject 30 [facility] glargine 1-08 Units ity of (LANTUS 00:00: under the [place] U-100 00 skin at Medical INSULIN) bedtime. Branch 100 unit/mL injection hydroCHLORO 2018-02 Yes [id number] 50mg Take 1 [facility] n[facility] thiazide 50 1-08 tablet by [facility] of mg tablet 00:00: mouth [place] 00 daily. For Medical blood Branch pressure. losartan 2018-02 Yes [id number] 100mg Take 1 [facility] vers 100 mg 1-08 tablet by [facility] of tablet 00:00: mouth [place] 00 daily. For Medical blood Branch pressure atorvastati 2018-02 Yes [id number] 20mg Take 1 [facility] n (LIPITOR) 1-08 tablet by ity of 20 mg 00:00: mouth at [place] tablet 00 bedtime. Medical For Branch cholestero l insulin 2018-02 Yes [id number] 30U inject 30 [facility] glargine 1-08 Units ity of (LANTUS 00:00: under the [place] U-100 00 skin at Medical INSULIN) bedtime. Branch 100 unit/mL injection hydroCHLORO 2018-02 Yes [id number] 50mg Take 1 [facility] n[facility] thiazide 50 1-08 tablet by [facility] of mg tablet 00:00: mouth [place] 00 daily. For Medical blood Branch pressure. losartan 2018-02 Yes [id number] 100mg Take 1 [facility] vers 100 mg 1-08 tablet by [facility] of tablet 00:00: mouth [place] 00 daily. For Medical blood Branch pressure atorvastati 2018-02 Yes [id number] 20mg Take 1 [facility] n (LIPITOR) 1-08 tablet by ity of 20 mg 00:00: mouth at [place] tablet 00 bedtime. Medical For Branch cholestero l insulin 2018-02 Yes [id number] 30U inject 30 [facility] glargine 1-08 Units ity of (LANTUS 00:00: under the [place] U-100 00 skin at Medical INSULIN) bedtime. Branch 100 unit/mL injection hydroCHLORO 2018-02 Yes [id number] 50mg Take 1 [facility] n[facility] thiazide 50 1-08 tablet by ity of mg tablet 00:00: mouth [place] 00 daily. For Medical blood Branch pressure. losartan 2018-02 Yes [id number] 100mg Take 1 [facility] vers 100 mg 1-08 tablet by [facility] of tablet 00:00: mouth [place] 00 daily. For Medical blood Branch pressure atorvastati 2018-02 Yes [id number] 20mg Take 1 [facility] n (LIPITOR) 1-08 tablet by ity of 20 mg 00:00: mouth at [place] tablet 00 bedtime. Medical For Branch cholestero l insulin 2018-02 Yes [id number] 30U inject 30 [facility] glargine 1-08 Units ity of (LANTUS 00:00: under the [place] U-100 00 skin at Medical INSULIN) bedtime. Branch 100 unit/mL injection hydroCHLORO 2018-02 Yes [id number] 50mg Take 1 [facility] nivers thiazide 50 1-08 tablet by ity of mg tablet 00:00: mouth [place] 00 daily. For Medical blood Branch pressure. losartan 2018-02 Yes [id number] 100mg Take 1 [facility] vers 100 mg 1-08 tablet by [facility] of tablet 00:00: mouth [place] 00 daily. For Medical blood Branch pressure atorvastati 2018-02 Yes [id number] 20mg Take 1 [facility] n (LIPITOR) 1-08 tablet by ity of 20 mg 00:00: mouth at [place] tablet 00 bedtime. Medical For Branch cholestero l insulin 2018-02 Yes [id number] 30U inject 30 [facility] glargine 1-08 Units ity of (LANTUS 00:00: under the [place] U-100 00 skin at Medical INSULIN) bedtime. Branch 100 unit/mL injection hydroCHLORO 2018-02 Yes [id number] 50mg Take 1 [facility] nivers thiazide 50 1-08 tablet by ity of mg tablet 00:00: mouth [place] 00 daily. For Medical blood Branch pressure. losartan 2018-02 Yes [id number] 100mg Take 1 [facility] vers 100 mg 1-08 tablet by [facility]y of tablet 00:00: mouth [place] 00 daily. For Medical blood Branch pressure atorvastati 2018-02 Yes [id number] 20mg Take 1 [facility] n (LIPITOR) 1-08 tablet by ity of 20 mg 00:00: mouth at [place] tablet 00 bedtime. Medical For Branch cholestero l insulin 2018-02 Yes [id number] 30U inject 30 [facility] glargine 1-08 Units ity of (LANTUS 00:00: under the [place] U-100 00 skin at Medical INSULIN) bedtime. Branch 100 unit/mL injection hydroCHLORO 2018-02 Yes [id number] 50mg Take 1 [facility] n[facility] thiazide 50 1-08 tablet by ity of mg tablet 00:00: mouth [place] 00 daily. For Medical blood Branch pressure. losartan 2018-02 Yes [id number] 100mg Take 1 [facility] vers 100 mg 1-08 tablet by ity of tablet 00:00: mouth [place] 00 daily. For Medical blood Branch pressure atorvastati 2018-02 Yes [id number] 20mg Take 1 [facility] n (LIPITOR) 1-08 tablet by ity of 20 mg 00:00: mouth at [place] tablet 00 bedtime. Medical For Branch cholestero l insulin 2018-02 Yes [id number] 30U inject 30 [facility] glargine 1-08 Units ity of (LANTUS 00:00: under the [place] U-100 00 skin at Medical INSULIN) bedtime. Branch 100 unit/mL injection hydroCHLORO 2018-02 Yes [id number] 50mg Take 1 [facility] nivers thiazide 50 1-08 tablet by ity of mg tablet 00:00: mouth [place] 00 daily. For Medical blood Branch pressure. losartan 2018-02 Yes [id number] 100mg Take 1 [facility] vers 100 mg 1-08 tablet by ity of tablet 00:00: mouth [place] 00 daily. For Medical blood Branch pressure atorvastati 2018-02 Yes [id number] 20mg Take 1 [facility] n (LIPITOR) 1-08 tablet by ity of 20 mg 00:00: mouth at [place] tablet 00 bedtime. Medical For Branch cholestero l insulin 2018-02 Yes [id number] 30U inject 30 [facility] glargine 1-08 Units ity of (LANTUS 00:00: under the [place] U-100 00 skin at Medical INSULIN) bedtime. Branch 100 unit/mL injection hydroCHLORO 2018-02 Yes [id number] 50mg Take 1 [facility] nivers thiazide 50 1-08 tablet by ity of mg tablet 00:00: mouth [place] 00 daily. For Medical blood Branch pressure. losartan 2018-02 Yes [id number] 100mg Take 1 [facility] vers 100 mg 1-08 tablet by ity of tablet 00:00: mouth [place] 00 daily. For Medical blood Branch pressure atorvastati 2018-02 Yes [id number] 20mg Take 1 [facility] n (LIPITOR) 1-08 tablet by ity of 20 mg 00:00: mouth at [place] tablet 00 bedtime. Medical For Branch cholestero l insulin 2018-02 Yes [id number] 30U inject 30 [facility] glargine 1-08 Units ity of (LANTUS 00:00: under the [place] U-100 00 skin at Medical INSULIN) bedtime. Branch 100 unit/mL injection hydroCHLORO 2018-02 Yes [id number] 50mg Take 1 [facility] nivers thiazide 50 1-08 tablet by ity of mg tablet 00:00: mouth [place] 00 daily. For Medical blood Branch pressure. losartan 2018-02 Yes [id number] 100mg Take 1 [facility] vers 100 mg 1-08 tablet by ity of tablet 00:00: mouth [place] 00 daily. For Medical blood Branch pressure atorvastati 2018-02 Yes [id number] 20mg Take 1 [facility] n (LIPITOR) 1-08 tablet by ity of 20 mg 00:00: mouth at [place] tablet 00 bedtime. Medical For Branch cholestero l insulin 2018-02 Yes [id number] 30U inject 30 [facility] glargine 1-08 Units ity of (LANTUS 00:00: under the [place] U-100 00 skin at Medical INSULIN) bedtime. Branch 100 unit/mL injection hydroCHLORO 2018-02 Yes [id number] 50mg Take 1 [facility] nivers thiazide 50 1-08 tablet by ity of mg tablet 00:00: mouth [place] 00 daily. For Medical blood Branch pressure. losartan 2018-02 Yes [id number] 100mg Take 1 [facility] vers 100 mg 1-08 tablet by ity of tablet 00:00: mouth [place] 00 daily. For Medical blood Branch pressure atorvastati 2018-02 Yes [id number] 20mg Take 1 [facility] n (LIPITOR) 1-08 tablet by ity of 20 mg 00:00: mouth at [place] tablet 00 bedtime. Medical For Branch cholestero l losartan 2018-02 Yes [id number] 100mg Take 1 [facility] vers 100 mg 1-08 tablet by ity of tablet 00:00: mouth [place] 00 daily. For Medical blood Branch pressure atorvastati 2018-02 Yes [id number] 20mg Take 1 [facility] n (LIPITOR) 1-08 tablet by ity of 20 mg 00:00: mouth at [place] tablet 00 bedtime. Medical For Branch cholestero l insulin 2018-02 Yes [id number] 30U inject 30 [facility] glargine 1-08 Units ity of (LANTUS 00:00: under the [place] U-100 00 skin at Medical INSULIN) bedtime. Branch 100 unit/mL injection hydroCHLORO 2018-02 Yes [id number] 50mg Take 1 [facility] nivers thiazide 50 1-08 tablet by ity of mg tablet 00:00: mouth [place] 00 daily. For Medical blood Branch pressure. insulin 2018-02 Yes [id number] 30U inject 30 [facility] glargine 1-08 Units ity of (LANTUS 00:00: under the [place] U-100 00 skin at Medical INSULIN) bedtime. Branch 100 unit/mL injection hydroCHLORO 2018-02 Yes [id number] 50mg Take 1 [facility] nivers thiazide 50 1-08 tablet by ity of mg tablet 00:00: mouth [place] 00 daily. For Medical blood Branch pressure. losartan 2018-02 Yes [id number] 100mg Take 1 [facility] vers 100 mg 1-08 tablet by ity of tablet 00:00: mouth [place] 00 daily. For Medical blood Branch pressure atorvastati 2018-02 Yes [id number] 20mg Take 1 [facility] n (LIPITOR) 1-08 tablet by ity of 20 mg 00:00: mouth at [place] tablet 00 bedtime. Medical For Branch cholestero l insulin 2018-02 Yes [id number] 30U inject 30 [facility] glargine 1-08 Units ity of (LANTUS 00:00: under the [place] U-100 00 skin at Medical INSULIN) bedtime. Branch 100 unit/mL injection hydroCHLORO 2018-02 Yes [id number] 50mg Take 1 [facility] nivers thiazide 50 1-08 tablet by ity of mg tablet 00:00: mouth [place] 00 daily. For Medical blood Branch pressure. losartan 2018-02 Yes [id number] 100mg Take 1 [facility] vers 100 mg 1-08 tablet by ity of tablet 00:00: mouth [place] 00 daily. For Medical blood Branch pressure atorvastati 2018-02 Yes [id number] 20mg Take 1 [facility] n (LIPITOR) 1-08 tablet by ity of 20 mg 00:00: mouth at [place] tablet 00 bedtime. Medical For Branch cholestero l insulin 2018-02 Yes [id number] 30U inject 30 [facility] glargine 1-08 Units ity of (LANTUS 00:00: under the [place] U-100 00 skin at Medical INSULIN) bedtime. Branch 100 unit/mL injection hydroCHLORO 2018-02 Yes [id number] 50mg Take 1 [facility] nivers thiazide 50 1-08 tablet by ity of mg tablet 00:00: mouth [place] 00 daily. For Medical blood Branch pressure. losartan 2018-02 Yes [id number] 100mg Take 1 [facility] vers 100 mg 1-08 tablet by ity of tablet 00:00: mouth [place] 00 daily. For Medical blood Branch pressure atorvastati 2018-02 Yes [id number] 20mg Take 1 [facility] n (LIPITOR) 1-08 tablet by ity of 20 mg 00:00: mouth at [place] tablet 00 bedtime. Medical For Branch cholestero l insulin 2018-02 Yes [id number] 30U inject 30 [facility] glargine 1-08 Units ity of (LANTUS 00:00: under the [place] U-100 00 skin at Medical INSULIN) bedtime. Branch 100 unit/mL injection hydroCHLORO 2018-02 Yes [id number] 50mg Take 1 [facility] nivers thiazide 50 1-08 tablet by ity of mg tablet 00:00: mouth [place] 00 daily. For Medical blood Branch pressure. losartan 2018-02 Yes [id number] 100mg Take 1 [facility] vers 100 mg 1-08 tablet by ity of tablet 00:00: mouth [place] 00 daily. For Medical blood Branch pressure atorvastati 2018-02 Yes [id number] 20mg Take 1 [facility] n (LIPITOR) 1-08 tablet by ity of 20 mg 00:00: mouth at [place] tablet 00 bedtime. Medical For Branch cholestero l insulin 2018-02 Yes [id number] 30U inject 30 [facility] glargine 1-08 Units ity of (LANTUS 00:00: under the [place] U-100 00 skin at Medical INSULIN) bedtime. Branch 100 unit/mL injection hydroCHLORO 2018-02 Yes [id number] 50mg Take 1 [facility] nivers thiazide 50 1-08 tablet by ity of mg tablet 00:00: mouth [place] 00 daily. For Medical blood Branch pressure. losartan 2018-02 Yes [id number] 100mg Take 1 [facility] vers 100 mg 1-08 tablet by ity of tablet 00:00: mouth [place] 00 daily. For Medical blood Branch pressure atorvastati 2018-02 Yes [id number] 20mg Take 1 [facility] n (LIPITOR) 1-08 tablet by ity of 20 mg 00:00: mouth at [place] tablet 00 bedtime. Medical For Branch cholestero l insulin 2018-02 Yes [id number] 30U inject 30 [facility] glargine 1-08 Units ity of (LANTUS 00:00: under the [place] U-100 00 skin at Medical INSULIN) bedtime. Branch 100 unit/mL injection hydroCHLORO 2018-02 Yes [id number] 50mg Take 1 [facility] nivers thiazide 50 1-08 tablet by ity of mg tablet 00:00: mouth [place] 00 daily. For Medical blood Branch pressure. losartan 2018-02 Yes [id number] 100mg Take 1 [facility] vers 100 mg 1-08 tablet by ity of tablet 00:00: mouth [place] 00 daily. For Medical blood Branch pressure atorvastati 2018-02 Yes [id number] 20mg Take 1 [facility] (LIPITOR) 1-08 tablet by ity of 20 mg 00:00: mouth at [place] tablet 00 bedtime. Medical For Branch cholestero l insulin 2018-02 Yes [id number] 30U inject 30 [facility] glargine 1-08 Units ity of (LANTUS 00:00: under the [place] U-100 00 skin at Medical INSULIN) bedtime. Branch 100 unit/mL injection hydroCHLORO 2018-02 Yes [id number] 50mg Take 1 U nivers thiazide 50 1-08 tablet by ity of mg tablet 00:00: mouth [place] 00 daily. For Medical blood Branch pressure. losartan 2018-02 Yes [id number] 100mg Take 1 [facility] vers 100 mg 1-08 tablet by ity of tablet 00:00: mouth [place] 00 daily. For Medical blood Branch pressure atorvastati 2018-02 Yes [id number] 20mg Take 1 [facility] n (LIPITOR) 1-08 tablet by ity of 20 mg 00:00: mouth at [place] tablet 00 bedtime. Medical For Branch cholestero l insulin 2018-02 Yes [id number] 30U inject 30 [facility] glargine 1-08 Units ity of (LANTUS 00:00: under the [place] U-100 00 skin at Medical INSULIN) bedtime. Branch 100 unit/mL injection hydroCHLORO 2018-02 Yes [id number] 50mg Take 1 U nivers thiazide 50 1-08 tablet by ity of mg tablet 00:00: mouth [place] 00 daily. For Medical blood Branch pressure. losartan 2018-02 Yes [id number] 100mg Take 1 [facility] vers 100 mg 1-08 tablet by ity of tablet 00:00: mouth [place] 00 daily. For Medical blood Branch pressure atorvastati 2018-02 Yes [id number] 20mg Take 1 [facility] n (LIPITOR) 1-08 tablet by ity of 20 mg 00:00: mouth at [place] tablet 00 bedtime. Medical For Branch cholestero l insulin 2018-02 Yes [id number] 30U inject 30 [facility] glargine 1-08 Units ity of (LANTUS 00:00: under the [place] U-100 00 skin at Medical INSULIN) bedtime. Branch 100 unit/mL injection hydroCHLORO 2018-02 Yes [id number] 50mg Take 1 U nivers thiazide 50 1-08 tablet by ity of mg tablet 00:00: mouth [place] 00 daily. For Medical blood Branch pressure. losartan 2018-02 Yes [id number] 100mg Take 1 [facility] vers 100 mg 1-08 tablet by ity of tablet 00:00: mouth [place] 00 daily. For Medical blood Branch pressure atorvastati 2018-02 Yes [id number] 20mg Take 1 [facility] n (LIPITOR) 1-08 tablet by ity of 20 mg 00:00: mouth at [place] tablet 00 bedtime. Medical For Branch cholestero l insulin 2018-02 Yes [id number] 30U inject 30 [facility] glargine 1-08 Units ity of (LANTUS 00:00: under the [place] U-100 00 skin at Medical INSULIN) bedtime. Branch 100 unit/mL injection hydroCHLORO 2018-02 Yes [id number] 50mg Take 1 U nivers thiazide 50 1-08 tablet by ity of mg tablet 00:00: mouth [place] 00 daily. For Medical blood Branch pressure. losartan 2018-02 Yes [id number] 100mg Take 1 [facility] vers 100 mg 1-08 tablet by ity of tablet 00:00: mouth [place] 00 daily. For Medical blood Branch pressure atorvastati 2018-02 Yes [id number] 20mg Take 1 [facility] n (LIPITOR) 1-08 tablet by ity of 20 mg 00:00: mouth at [place] tablet 00 bedtime. Medical For Branch cholestero l insulin 2018-02 Yes [id number] 30U inject 30 [facility] glargine 1-08 Units ity of (LANTUS 00:00: under the [place] U-100 00 skin at Medical INSULIN) bedtime. Branch 100 unit/mL injection hydroCHLORO 2018-02 Yes [id number] 50mg Take 1 [facility] nivers thiazide 50 1-08 tablet by ity of mg tablet 00:00: mouth [place] 00 daily. For Medical blood Branch pressure. losartan 2018-02 Yes [id number] 100mg Take 1 [facility] vers 100 mg 1-08 tablet by ity of tablet 00:00: mouth [place] 00 daily. For Medical blood Branch pressure losartan 2018-02 Yes [id number] 100mg Take 1 [facility] vers 100 mg 1-08 tablet by ity of tablet 00:00: mouth [place] 00 daily. For Medical blood Branch pressure atorvastati 2018-02 Yes [id number] 20mg Take 1 [facility] n (LIPITOR) 1-08 tablet by ity of 20 mg 00:00: mouth at [place] tablet 00 bedtime. Medical For Branch cholestero l insulin 2018-02 Yes [id number] 30U inject 30 [facility] glargine 1-08 Units ity of (LANTUS 00:00: under the [place] U-100 00 skin at Medical INSULIN) bedtime. Branch 100 unit/mL injection hydroCHLORO 2018-02 Yes [id number] 50mg Take 1 U nivers thiazide 50 1-08 tablet by ity of mg tablet 00:00: mouth [place] 00 daily. For Medical blood Branch pressure. atorvastati 2018-02 Yes [id number] 20mg Take 1 [facility] n (LIPITOR) 1-08 tablet by ity of 20 mg 00:00: mouth at [place] tablet 00 bedtime. Medical For Branch cholestero l insulin 2018-02 Yes [id number] 30U inject 30 [facility] glargine 1-08 Units ity of (LANTUS 00:00: under the [place] U-100 00 skin at Medical INSULIN) bedtime. Branch 100 unit/mL injection hydroCHLORO 2018-02 Yes [id number] 50mg Take 1 U nivers thiazide 50 1-08 tablet by ity of mg tablet 00:00: mouth [place] 00 daily. For Medical blood Branch pressure. losartan 2018-02 Yes [id number] 100mg Take 1 [facility] vers 100 mg 1-08 tablet by ity of tablet 00:00: mouth [place] 00 daily. For Medical blood Branch pressure atorvastati 2018-02 Yes [id number] 20mg Take 1 [facility] n (LIPITOR) 1-08 tablet by ity of 20 mg 00:00: mouth at [place] tablet 00 bedtime. Medical For Branch cholestero l insulin 2018-02 Yes [id number] 30U inject 30 [facility] glargine 1-08 Units ity of (LANTUS 00:00: under the [place] U-100 00 skin at Medical INSULIN) bedtime. Branch 100 unit/mL injection hydroCHLORO 2018-02 Yes [id number] 50mg Take 1 U nivers thiazide 50 1-08 tablet by ity of mg tablet 00:00: mouth [place] 00 daily. For Medical blood Branch pressure. losartan 2018-02 Yes [id number] 100mg Take 1 [facility] vers 100 mg 1-08 tablet by ity of tablet 00:00: mouth [place] 00 daily. For Medical blood Branch pressure atorvastati 2018-02 Yes [id number] 20mg Take 1 [facility] n (LIPITOR) 1-08 tablet by ity of 20 mg 00:00: mouth at [place] tablet 00 bedtime. Medical For Branch cholestero l insulin 2018-02 Yes [id number] 30U inject 30 [facility] glargine 1-08 Units ity of (LANTUS 00:00: under the [place] U-100 00 skin at Medical INSULIN) bedtime. Branch 100 unit/mL injection hydroCHLORO 2018-02 Yes [id number] 50mg Take 1 [facility] nivers thiazide 50 1-08 tablet by ity of mg tablet 00:00: mouth [place] 00 daily. For Medical blood Branch pressure. losartan 2018-02 Yes [id number] 100mg Take 1 [facility] vers 100 mg 1-08 tablet by ity of tablet 00:00: mouth [place] 00 daily. For Medical blood Branch pressure atorvastati 2018-02 Yes [id number] 20mg Take 1 [facility] n (LIPITOR) 1-08 tablet by ity of 20 mg 00:00: mouth at [place] tablet 00 bedtime. Medical For Branch cholestero l insulin 2018-02 Yes [id number] 30U inject 30 [facility] glargine 1-08 Units ity of (LANTUS 00:00: under the [place] U-100 00 skin at Medical INSULIN) bedtime. Branch 100 unit/mL injection hydroCHLORO 2018-02 Yes [id number] 50mg Take 1 U nivers thiazide 50 1-08 tablet by ity of mg tablet 00:00: mouth [place] 00 daily. For Medical blood Branch pressure. insulin 2018-02 Yes [id number] 5U inject 5 U nivers regular 0-14 Units ity of human 00:00: under the [place] (HUMULIN R 00 skin 3 Medical REGULAR (three) Branch U-100 times INSULN) 100 daily unit/mL before injection meals. insulin 2018-02 Yes [id number] 5U inject 5 U nivers regular 0-14 Units ity of human 00:00: under the [place] (HUMULIN R 00 skin 3 Medical REGULAR (three) Branch U-100 times INSULN) 100 daily unit/mL before injection meals. insulin 2018-02 Yes [id number] 5U inject 5 U nivers regular 0-14 Units ity of human 00:00: under the [place] (HUMULIN R 00 skin 3 Medical REGULAR (three) Branch U-100 times INSULN) 100 daily unit/mL before injection meals. insulin 2018-02 Yes [id number] 5U inject 5 U nivers regular 0-14 Units ity of human 00:00: under the [place] (HUMULIN R 00 skin 3 Medical REGULAR (three) Branch U-100 times INSULN) 100 daily unit/mL before injection meals. insulin 2018-02 Yes [id number] 5U inject 5 U nivers regular 0-14 Units ity of human 00:00: under the [place] (HUMULIN R 00 skin 3 Medical REGULAR (three) Branch U-100 times INSULN) 100 daily unit/mL before injection meals. insulin 2018-02 Yes [id number] 5U inject 5 U nivers regular 0-14 Units ity of human 00:00: under the [place] (HUMULIN R 00 skin 3 Medical REGULAR (three) Branch U-100 times INSULN) 100 daily unit/mL before injection meals. insulin 2018-02 Yes [id number] 5U inject 5 U nivers regular 0-14 Units ity of human 00:00: under the [place] (HUMULIN R 00 skin 3 Medical REGULAR (three) Branch U-100 times INSULN) 100 daily unit/mL before injection meals. insulin 2018-02 Yes [id number] 5U inject 5 U nivers regular 0-14 Units ity of human 00:00: under the [place] (HUMULIN R 00 skin 3 Medical REGULAR (three) Branch U-100 times INSULN) 100 daily unit/mL before injection meals. insulin 2018-02 Yes [id number] 5U inject 5 U nivers regular 0-14 Units ity of human 00:00: under the [place] (HUMULIN R 00 skin 3 Medical REGULAR (three) Branch U-100 times INSULN) 100 daily unit/mL before injection meals. insulin 2018-02 Yes [id number] 5U inject 5 U nivers regular 0-14 Units ity of human 00:00: under the [place] (HUMULIN R 00 skin 3 Medical REGULAR (three) Branch U-100 times INSULN) 100 daily unit/mL before injection meals. insulin 2018-02 Yes [id number] 5U inject 5 U nivers regular 0-14 Units ity of human 00:00: under the [place] (HUMULIN R 00 skin 3 Medical REGULAR (three) Branch U-100 times INSULN) 100 daily unit/mL before injection meals. insulin 2018-02 Yes [id number] 5U inject 5 U nivers regular 0-14 Units ity of human 00:00: under the [place] (HUMULIN R 00 skin 3 Medical REGULAR (three) Branch U-100 times INSULN) 100 daily unit/mL before injection meals. insulin 2018-02 Yes [id number] 5U inject 5 U nivers regular 0-14 Units ity of human 00:00: under the [place] (HUMULIN R 00 skin 3 Medical REGULAR (three) Branch U-100 times INSULN) 100 daily unit/mL before injection meals. insulin 2018-02 Yes [id number] 5U inject 5 U nivers regular 0-14 Units ity of human 00:00: under the [place] (HUMULIN R 00 skin 3 Medical REGULAR (three) Branch U-100 times INSULN) 100 daily unit/mL before injection meals. insulin 2018-02 Yes [id number] 5U inject 5 U nivers regular 0-14 Units ity of human 00:00: under the [place] (HUMULIN R 00 skin 3 Medical REGULAR (three) Branch U-100 times INSULN) 100 daily unit/mL before injection meals. insulin 2018-02 Yes [id number] 5U inject 5 U nivers regular 0-14 Units ity of human 00:00: under the [place] (HUMULIN R 00 skin 3 Medical REGULAR (three) Branch U-100 times INSULN) 100 daily unit/mL before injection meals. insulin 2018-02 Yes [id number] 5U inject 5 U nivers regular 0-14 Units ity of human 00:00: under the [place] (HUMULIN R 00 skin 3 Medical REGULAR (three) Branch U-100 times INSULN) 100 daily unit/mL before injection meals. insulin 2018-02 Yes [id number] 5U inject 5 U nivers regular 0-14 Units ity of human 00:00: under the [place] (HUMULIN R 00 skin 3 Medical REGULAR (three) Branch U-100 times INSULN) 100 daily unit/mL before injection meals. insulin 2018-02 Yes [id number] 5U inject 5 U nivers regular 0-14 Units ity of human 00:00: under the [place] (HUMULIN R 00 skin 3 Medical REGULAR (three) Branch U-100 times INSULN) 100 daily unit/mL before injection meals. insulin 2018-02 Yes [id number] 5U inject 5 U nivers regular 0-14 Units ity of human 00:00: under the [place] (HUMULIN R 00 skin 3 Medical REGULAR (three) Branch U-100 times INSULN) 100 daily unit/mL before injection meals. insulin 2018-02 Yes [id number] 5U inject 5 U nivers regular 0-14 Units ity of human 00:00: under the [place] (HUMULIN R 00 skin 3 Medical REGULAR (three) Branch U-100 times INSULN) 100 daily unit/mL before injection meals. insulin 2018-02 Yes [id number] 5U inject 5 U nivers regular 0-14 Units ity of human 00:00: under the [place] (HUMULIN R 00 skin 3 Medical REGULAR (three) Branch U-100 times INSULN) 100 daily unit/mL before injection meals. insulin 2018-02 Yes [id number] 5U inject 5 U nivers regular 0-14 Units ity of human 00:00: under the [place] (HUMULIN R 00 skin 3 Medical REGULAR (three) Branch U-100 times INSULN) 100 daily unit/mL before injection meals. insulin 2018-02 Yes [id number] 5U inject 5 U nivers regular 0-14 Units ity of human 00:00: under the [place] (HUMULIN R 00 skin 3 Medical REGULAR (three) Branch U-100 times INSULN) 100 daily unit/mL before injection meals. insulin 2018-02 Yes [id number] 5U inject 5 U nivers regular 0-14 Units ity of human 00:00: under the [place] (HUMULIN R 00 skin 3 Medical REGULAR (three) Branch U-100 times INSULN) 100 daily unit/mL before injection meals. insulin 2018-02 Yes [id number] 5U inject 5 U nivers regular 0-14 Units ity of human 00:00: under the [place] (HUMULIN R 00 skin 3 Medical REGULAR (three) Branch U-100 times INSULN) 100 daily unit/mL before injection meals. insulin 2018-02 Yes [id number] 5U inject 5 U nivers regular 0-14 Units ity of human 00:00: under the [place] (HUMULIN R 00 skin 3 Medical REGULAR (three) Branch U-100 times INSULN) 100 daily unit/mL before injection meals. insulin 2018-02 Yes [id number] 5U inject 5 U nivers regular 0-14 Units ity of human 00:00: under the [place] (HUMULIN R 00 skin 3 Medical REGULAR (three) Branch U-100 times INSULN) 100 daily unit/mL before injection meals. insulin 2018-02 Yes [id number] 5U inject 5 U nivers regular 0-14 Units ity of human 00:00: under the [place] (HUMULIN R 00 skin 3 Medical REGULAR (three) Branch U-100 times INSULN) 100 daily unit/mL before injection meals. insulin 2018-02 Yes [id number] 5U inject 5 U nivers regular 0-14 Units ity of human 00:00: under the [place] (HUMULIN R 00 skin 3 Medical REGULAR (three) Branch U-100 times INSULN) 100 daily unit/mL before injection meals. insulin 2018- Yes [id number] 5U inject 5 U nivers regular 0-14 Units ity of human 00:00: under the [place] (HUMULIN R 00 skin 3 Medical REGULAR (three) Branch U-100 times INSULN) 100 daily unit/mL before injection meals. metFORMIN 2018-02 Yes [id number] 1000mg Take 1 [facility] 1,000 mg 0-07 tablet by ity of tablet 00:00: mouth (two) Medical times Branch daily with meals. For diabetes metFORMIN 2018-02 Yes [id number] 1000mg Take 1 [facility] 1,000 mg 0-07 tablet by ity of tablet 00:00: mouth (two) Medical times Branch daily with meals. For diabetes metFORMIN 2018-02 Yes [id number] 1000mg Take 1 [facility] 1,000 mg 0-07 tablet by ity of tablet 00:00: mouth (two) Medical times Branch daily with meals. For diabetes metFORMIN 2018-02 Yes [id number] 1000mg Take 1 [facility] 1,000 mg 0-07 tablet by ity of tablet 00:00: mouth (two) Medical times Branch daily with meals. For diabetes metFORMIN 2018-02 Yes [id number] 1000mg Take 1 [facility] 1,000 mg 0-07 tablet by ity of tablet 00:00: mouth [place] (two) Medical times Branch daily with meals. For diabetes metFORMIN 2018-02 Yes [id number] 1000mg Take 1 [facility] 1,000 mg 0-07 tablet by ity of tablet 00:00: mouth [place] (two) Medical times Branch daily with meals. For diabetes metFORMIN 2018-02 2020- No [id number] 1000mg Take 1 [facility] 1,000 mg 0-07 03-19 tablet by ity o f tablet 00:00: 00:00 mouth 2 [place] 00 :00 (two) Medical times Branch daily with meals. For diabetes meloxicam 2018- Yes [id number] 15mg Take 1 U nivers 15 mg 9-09 tablet by ity of tablet 00:00: mouth [place] 00 daily. Medical Branch meloxicam 2019-0 Yes [id number] 15mg Take 1 U nivers 15 mg 9-09 tablet by ity of tablet 00:00: mouth [place] 00 daily. Medical Branch meloxicam 2019-0 Yes [id number] 15mg Take 1 U nivers 15 mg 9-09 tablet by ity of tablet 00:00: mouth [place] 00 daily. [facility] Branch meloxicam 2018-0 Yes [id number] 15mg Take 1 U nivers 15 mg 9-09 tablet by ity of tablet 00:00: mouth [place] 00 daily. [facility] Branch meloxicam 2018-0 Yes [id number] 15mg Take 1 U nivers 15 mg 9-09 tablet by ity of tablet 00:00: mouth [place] 00 daily. [facility] Branch meloxicam 0 Yes [id number] 15mg Take 1 U nivers 15 mg 9-09 tablet by ity of tablet 00:00: mouth [place] 00 daily. [facility] Branch meloxicam 0 Yes [id number] 15mg Take 1 U nivers 15 mg 9-09 tablet by ity of tablet 00:00: mouth [place] 00 daily. [facility] Branch meloxicam 0 Yes [id number] 15mg Take 1 U nivers 15 mg 9-09 tablet by ity of tablet 00:00: mouth [place] 00 daily. [facility] Branch meloxicam 0 Yes [id number] 15mg Take 1 U nivers 15 mg 9-09 tablet by ity of tablet 00:00: mouth [place] 00 daily. [facility] Branch meloxicam 0 Yes [id number] 15mg Take 1 U nivers 15 mg 9-09 tablet by ity of tablet 00:00: mouth [place] 00 daily. [facility] Branch meloxicam 0 Yes [id number] 15mg Take 1 U nivers 15 mg 9-09 tablet by ity of tablet 00:00: mouth [place] 00 daily. [facility] Branch meloxicam 0 Yes [id number] 15mg Take 1 U nivers 15 mg 9-09 tablet by ity of tablet 00:00: mouth [place] 00 daily. [facility] Branch meloxicam 2019-0 Yes [id number] 15mg Take 1 U nivers 15 mg 9-09 tablet by ity of tablet 00:00: mouth [place] 00 daily. [facility] Branch meloxicam 2018-0 Yes [id number] 15mg Take 1 U nivers 15 mg 9-09 tablet by ity of tablet 00:00: mouth [place] 00 daily. [facility] Branch meloxicam 2018-0 Yes [id number] 15mg Take 1 U nivers 15 mg 9-09 tablet by ity of tablet 00:00: mouth [place] 00 daily. [facility] levothyroxi 20190 Yes [id number] 125ug Take 1 Univers ne 125 mcg 9-09 tablet by ity of tablet 00:00: mouth [place] 00 every Medical morning. [place] meloxicam 0 Yes [id number] 15mg Take 1 U nivers 15 mg 9-09 tablet by ity of tablet 00:00: mouth [place] 00 daily. [facility] levothyroxi 0 Yes [id number] 125ug Take 1 [facility] ne 125 mcg 9-09 tablet by ity of tablet 00:00: mouth [place] 00 every Medical morning. [place] meloxicam Yes [id number] 15mg Take 1 U nivers 15 mg 9-09 tablet by ity of tablet 00:00: mouth [place] 00 daily. [facility] levothyroxi 0 Yes [id number] 125ug Take 1 [facility] ne 125 mcg 9-09 tablet by ity of tablet 00:00: mouth [place] 00 every Medical morning. [place] meloxicam 0 Yes [id number] 15mg Take 1 U nivers 15 mg 9-09 tablet by ity of tablet 00:00: mouth [place] 00 daily. [facility] levothyroxi 0 Yes [id number] 125ug Take 1 [facility] ne 125 mcg 9-09 tablet by ity of tablet 00:00: mouth [place] 00 every Medical morning. [place] meloxicam 0 Yes [id number] 15mg Take 1 U nivers 15 mg 9-09 tablet by ity of tablet 00:00: mouth [place] 00 daily. [facility] levothyroxi 0 Yes [id number] 125ug Take 1 [facility] ne 125 mcg 9-09 tablet by ity of tablet 00:00: mouth [place] 00 every Medical morning. [place] meloxicam 0 Yes [id number] 15mg Take 1 U nivers 15 mg 9-09 tablet by ity of tablet 00:00: mouth [place] 00 daily. [facility] levothyroxi 0 Yes [id number] 125ug Take 1 [facility] ne 125 mcg 9-09 tablet by ity of tablet 00:00: mouth [place] 00 every Medical morning. [place] meloxicam 0 Yes [id number] 15mg Take 1 U nivers 15 mg 9-09 tablet by ity of tablet 00:00: mouth [place] 00 daily. [facility] levothyroxi 0 Yes [id number] 125ug Take 1 [facility] ne 125 mcg 9-09 tablet by ity of tablet 00:00: mouth [place] 00 every Medical morning. [place] meloxicam 0 Yes [id number] 15mg Take 1 U nivers 15 mg 9-09 tablet by ity of tablet 00:00: mouth [place] 00 daily. [facility] Branch levothyroxi 0 Yes [id number] 125ug Take 1 [facility] ne 125 mcg 9-09 tablet by ity of tablet 00:00: mouth [place] 00 every Medical morning. [place] meloxicam 0 Yes [id number] 15mg Take 1 U nivers 15 mg 9-09 tablet by ity of tablet 00:00: mouth [place] 00 daily. [facility] Branch levothyroxi Yes [id number] 125ug Take 1 [facility] ne 125 mcg 9-09 tablet by ity of tablet 00:00: mouth [place] 00 every Medical morning. [place] meloxicam Yes [id number] 15mg Take 1 U nivers 15 mg 9-09 tablet by ity of tablet 00:00: mouth [place] 00 daily. [facility] levothyroxi Yes [id number] 125ug Take 1 [facility] ne 125 mcg 9-09 tablet by ity of tablet 00:00: mouth [place] 00 every Medical morning. [place] meloxicam Yes [id number] 15mg Take 1 U nivers 15 mg 9-09 tablet by ity of tablet 00:00: mouth [place] 00 daily. [facility] levothyroxi 0 Yes [id number] 125ug Take 1 [facility] ne 125 mcg 9-09 tablet by ity of tablet 00:00: mouth [place] 00 every Medical morning. [place] meloxicam 0 Yes [id number] 15mg Take 1 U nivers 15 mg 9-09 tablet by ity of tablet 00:00: mouth [place] 00 daily. [facility] Branch levothyroxi 0 Yes [id number] 125ug Take 1 [facility] ne 125 mcg 9-09 tablet by ity of tablet 00:00: mouth [place] 00 every Medical morning. [place] meloxicam 0 Yes [id number] 15mg Take 1 U nivers 15 mg 9-09 tablet by ity of tablet 00:00: mouth [place] 00 daily. [facility] meloxicam 0 Yes [id number] 15mg Take 1 U nivers 15 mg 9-09 tablet by ity of tablet 00:00: mouth [place] 00 daily. [facility] Branch levothyroxi Yes [id number] 125ug Take 1 [facility] ne 125 mcg 9-09 tablet by ity of tablet 00:00: mouth [place] 00 every Medical morning. Branch meloxicam Yes [id number] 15mg Take 1 U nivers 15 mg 9-09 tablet by ity of tablet 00:00: mouth [place] 00 daily. [facility] Branch levothyroxi Yes [id number] 125ug Take 1 [facility] ne 125 mcg 9-09 tablet by ity of tablet 00:00: mouth [place] 00 every Medical morning. [place] meloxicam Yes [id number] 15mg Take 1 U nivers 15 mg 9-09 tablet by ity of tablet 00:00: mouth [place] 00 daily. [facility] levothyroxi Yes [id number] 125ug Take 1 [facility] ne 125 mcg 9-09 tablet by ity of tablet 00:00: mouth [place] 00 every Medical morning. [place] meloxicam Yes [id number] 15mg Take 1 U nivers 15 mg 9-09 tablet by ity of tablet 00:00: mouth [place] 00 daily. [facility] meloxicam Yes [id number] 15mg Take 1 U nivers 15 mg 9-09 tablet by ity of tablet 00:00: mouth [place] 00 daily. [facility] levothyroxi 2020- No [id number] 125ug Take 1 [facility] ne 125 mcg 9-09 07-30 tablet by ity of tablet 00:00: 00:00 mouth [place] 00 :00 every Medical morning. Branch GABAPENTIN Yes [id number] TAKE 3 [facility] 300 mg 8-19 CAPSULES ity of capsule 00:00: BY MOUTH [place] 00 THREE Medical TIMES Branch DAILY GABAPENTIN 2018- Yes [id number] TAKE 3 [facility] 300 mg 8-19 CAPSULES ity of capsule 00:00: BY MOUTH [place] 00 THREE Medical TIMES Branch DAILY GABAPENTIN 2019- Yes [id number] TAKE 3 [facility] 300 mg 8-19 CAPSULES ity of capsule 00:00: BY MOUTH [place] 00 THREE Medical TIMES Branch DAILY BD VEO Yes [id number] USE Univ ers INSULIN 09-14 DIRECTED ity of SYRINGE UF 00:00: FOUR [place] 0.3 mL 31 00 TIMES A Medica l gauge x DAY Branch " Syrg BD VEO 2019-0 Yes [id number] USE Univ ers INSULIN 8- DIRECTED ity of SYRING[place] UF 00:00: FOUR [place] 0.3 mL 31 00 TIMES A Medica l gauge x DAY Branch " Syrg BD VEO 2019-0 Yes [id number] USE Univ ers INSULIN 09-14 DIRECTED ity of SYRINGE UF 00:00: FOUR [place] 0.3 mL 31 00 TIMES A Medica l gauge x DAY Branch " Syrg BD VEO 2019-0 Yes [id number] USE Univ ers INSULIN 09-14 DIRECTED ity of SYRINGE UF 00:00: FOUR [place] 0.3 mL 31 00 TIMES A Medica l gauge x DAY Branch " Syrg BD VEO 2019-0 Yes [id number] USE Univ ers INSULIN 09-14 DIRECTED ity of SYRINGE UF 00:00: FOUR [place] 0.3 mL 00 TIMES A Medica l gauge x DAY Branch " Syrg BD VEO 2019-0 Yes [id number] USE Univ ers INSULIN 09-14 DIRECTED ity of SYRING[place] UF 00:00: FOUR [place] 0.3 mL 31 00 TIMES A Medica l gauge x DAY Branch " Syrg BD VEO 2019-0 Yes [id number] USE Univ ers INSULIN 09-14 DIRECTED ity of SYRINGE UF 00:00: FOUR [place] 0.3 mL 00 TIMES A Medica l gauge x DAY Branch " Syrg BD VEO 2019-0 Yes [id number] USE Univ ers INSULIN 09-14 DIRECTED ity of SYRINGE UF 00:00: FOUR [place] 0.3 mL 31 00 TIMES A Medica l gauge x DAY Branch " Syrg BD VEO 2019-0 Yes [id number] USE Univ ers INSULIN 09-14 DIRECTED ity of SYRINGE UF 00:00: FOUR [place] 0.3 mL 31 00 TIMES A Medica l gauge x DAY Branch " Syrg BD VEO 2019-0 Yes [id number] USE Univ ers INSULIN 8 DIRECTED ity of SYRING[place] UF 00:00: FOUR [place] 0.3 mL 31 00 TIMES A Medica l gauge x DAY Branch " Syrg BD VEO 2019-0 Yes [id number] USE Univ ers INSULIN 8- DIRECTED ity of SYRING[place] UF 00:00: FOUR [place] 0.3 mL 31 00 TIMES A Medica l gauge x DAY Branch 64" Syrg BD VEO 2019-0 Yes [id number] USE Univ ers INSULIN 09-14 DIRECTED ity of SYRING[place] UF 00:00: FOUR [place] 0.3 mL 31 00 TIMES A Medica l gauge x DAY Branch 64" Syrg BD VEO 2019-0 Yes [id number] USE Univ ers INSULIN 09-14 DIRECTED ity of SYRING[place] UF 00:00: FOUR [place] 0.3 mL 31 00 TIMES A Medica l gauge x DAY Branch " Syrg BD VEO 2019-0 Yes [id number] USE Univ ers INSULIN 09-14 DIRECTED ity of [place] UF 00:00: FOUR [place] 0.3 mL 31 00 TIMES A Medica l gauge x DAY Branch " Syrg BD VEO 2019-0 Yes [id number] USE Univ ers INSULIN 09-14 DIRECTED ity of [facility] 00:00: FOUR [place] 0.3 mL 31 00 TIMES A Medica l gauge x DAY Branch " Syrg BD VEO 2019-0 Yes [id number] USE Univ ers INSULIN 09-14 DIRECTED ity of [facility] 00:00: FOUR [place] 0.3 mL 31 00 TIMES A Medica l gauge x DAY Branch " Syrg BD VEO 2019-0 Yes [id number] USE Univ ers INSULIN 09-14 DIRECTED ity of [facility] 00:00: FOUR [place] 0.3 mL 31 00 TIMES A Medica l gauge x DAY Branch 64" Syrg BD VEO 2019-0 Yes [id number] USE Univ ers INSULIN 09-14 DIRECTED ity of [facility] 00:00: FOUR [place] 0.3 mL 31 00 TIMES A Medica l gauge x DAY Branch " Syrg BD VEO 2019-0 Yes [id number] USE Univ ers INSULIN 09-14 DIRECTED ity of [facility] 00:00: FOUR [place] 0.3 mL 31 00 TIMES A Medica l gauge x DAY Branch 1564" Syrg BD VEO 2019-0 2020- No [id number] USE Uni vers INSULIN 810-02 DIRECTED ity of [facility] 00:00: 00:00 FOUR [place] 0.3 mL 31 00 :00 TIMES A Medica l gauge x DAY Branch 1564" Syrg insulin 20190 Yes Use as Univers syringe-nee 7-26 directed, ity of dle U-100 00:00: QID, [place] 0.3 mL 31 DX:E11.9 Medica l gauge x Branch 15/64" Syrg insulin 2019-0 Yes Use as Univers syringe-nee 7-26 directed, ity of dle U-100 00:00: QID, [place] 0.3 mL DX:E11.9 Medica l gauge x Branch 1564" Syrg insulin 2019-0 Yes Use as Univers syringe-nee 7-26 directed, ity of dle U-100 00:00: QID, [place] 0.3 mL DX:E11.9 Medica l gauge x Branch 1564" Syrg insulin 2019-0 Yes Use as Univers syringe-nee 7-26 directed, ity of dle U-100 00:00: [facility], [place] 0.3 mL DX:E11.9 Medica l gauge x Branch 1564" Syrg insulin 2019-0 Yes Use as Univers syringe-nee 7-26 directed, ity of dle U-100 00:00: D [place] 0.3 mL DX:E11.9 Medica l gauge x Branch 1564" Syrg insulin 2019-0 Yes Use as Univers syringe-nee 7-26 directed, ity of dle U-100 00:00: [facility] [place] 0.3 mL DX:E11.9 Medica l gauge x Branch 1564" Syrg insulin 2019-0 Yes Use as Univers syringe-nee 7-26 directed, ity of dle U-100 00:00: [facility] [place] 0.3 mL DX:E11.9 Medica l gauge x Branch 1564" Syrg insulin 2019-0 Yes Use as Univers syringe-nee 7-26 directed, ity of dle U-100 00:00: D [place] 0.3 mL DX:E11.9 Medica l gauge x Branch 1564" Syrg insulin 2019-0 Yes Use as Univers syringe-nee 7-26 directed, ity of dle U-100 00:00: [facility]ley [place] 0.3 mL DX:E11.9 Medica l gauge x Branch 1564" Syrg insulin 2019-0 Yes Use as Univers syringe-nee 7-26 directed, ity of dle U-100 00:00: QID, [place] 0.3 mL 31 DX:E11.9 Medica l gauge x Branch 1564" Syrg insulin 2019-0 Yes Use as Univers syringe-nee 7-26 directed, ity of dle U-100 00:00: QID, [place] 0.3 mL 31 DX:E11.9 Medica l gauge x Branch 1564" Syrg insulin 2019-0 Yes Use as Univers syringe-nee 7-26 directed, ity of dle U-100 00:00: QID, [place] 0.3 mL DX:E11.9 Medica l gauge x Branch 1564" Syrg insulin 2019-0 Yes Use as Univers syringe-nee 7-26 directed, ity of dle U-100 00:00: QID, [place] 0.3 mL DX:E11.9 Medica l gauge x Branch 1564" Syrg insulin 2019-0 Yes Use as Univers syringe-nee 7-26 directed, ity of dle U-100 00:00: QID, [place] 0.3 mL DX:E11.9 Medica l gauge x Branch 1564" Syrg insulin 2019-0 Yes Use as Univers syringe-nee 7-26 directed, ity of dle U-100 00:00: QID, [place] 0.3 mL 31 DX:E11.9 Medica l gauge x Branch 1564" Syrg insulin 2019-0 Yes Use as Univers syringe-nee 7-26 directed, ity of dle U-100 00:00: QID, [place] 0.3 mL DX:E11.9 Medica l gauge x Branch 1564" Syrg insulin 2019-0 Yes Use as Univers syringe-nee 7-26 directed, ity of dle U-100 00:00: QID, [place] 0.3 mL DX:E11.9 Medica l gauge x Branch 1564" Syrg insulin 2019-0 Yes Use as Univers syringe-nee 7-26 directed, ity of dle U-100 00:00: QID, [place] 0.3 mL DX:E11.9 Medica l gauge x Branch 15/64" Syrg insulin 2019-0 Yes Use as Univers syringe-nee 09-08 directed, ity of dle U-100 00:00: QID, [place] 0.3 mL 31 00 DX:E11.9 Medica l gauge x Branch " Syrg insulin Yes Use as Univers syringe-nee 09-08 directed, ity of dle U-100 00:00: QID, [place] 0.3 mL 31 00 DX:E11.9 Medica l gauge x Branch " Syrg insulin 2020- No Use as Univers syringe-nee 09-0819 directed, it y of dle U-100 00:00: 00:00 QID, [place] 0.3 mL 31 00 :00 DX:E11.9 Medica l gauge x Branch " Syrg cholecalcif Yes [id number] Unsure of Univers tamika, 7-08 dose. ity of vitamin D3, 00:00: [place] 1,000 unit 00 Medical tablet Branch vitamin 2018- Yes [id number] 5000ug Take 5 U nivers B-12 1,000 7-08 tablets by ity of mcg tablet 00:00: mouth [place] 00 daily. Medical Branch vitamin B-1 Yes [id number] 50mg Take 1 Univers (VITAMIN 7-08 tablet by ity of B-1) 50 mg 00:00: mouth [place] tablet 00 daily. Medical Branch cholecalcif Yes [id number] Unsure of Univers tamika, 7-08 dose. ity of vitamin D3, 00:00: [place] 1,000 unit 00 Medical tablet Branch vitamin 2018- Yes [id number] 5000ug Take 5 U nivers B-12 1,000 7-08 tablets by ity of mcg tablet 00:00: mouth [place] 00 daily. Medical Branch vitamin B-1 Yes [id number] 50mg Take 1 Univers (VITAMIN 7-08 tablet by ity of B-1) 50 mg 00:00: mouth [place] tablet 00 daily. Medical Branch cholecalcif Yes [id number] Unsure of Univers tamika, 7-08 dose. ity of vitamin D3, 00:00: [place] 1,000 unit 00 Medical tablet Branch vitamin Yes [id number] 5000ug Take 5 U nivers B-12 1,000 7-08 tablets by ity of mcg tablet 00:00: mouth [place] 00 daily. Medical Branch vitamin B-1 Yes [id number] 50mg Take 1 Univers (VITAMIN 7-08 tablet by ity of B-1) 50 mg 00:00: mouth [place] tablet 00 daily. Medical Branch cholecalcif Yes [id number] Unsure of Univers tamika, 7-08 dose. ity of vitamin D3, 00:00: [place] 1,000 unit 00 Medical tablet Branch vitamin 2018-0 Yes [id number] 5000ug Take 5 U nivers B-12 1,000 7-08 tablets by ity of mcg tablet 00:00: mouth [place] 00 daily. Medical Branch vitamin B-1 Yes [id number] 50mg Take 1 Univers (VITAMIN 7-08 tablet by ity of B-1) 50 mg 00:00: mouth [place] tablet 00 daily. Medical Branch cholecalcif Yes [id number] Unsure of Univers tamika, 7-08 dose. ity of vitamin D3, 00:00: [place] 1,000 unit 00 Medical tablet Branch vitamin 2018-0 Yes [id number] 5000ug Take 5 U nivers B-12 1,000 7-08 tablets by ity of mcg tablet 00:00: mouth [place] 00 daily. Medical Branch vitamin B-1 Yes [id number] 50mg Take 1 Univers (VITAMIN 7-08 tablet by ity of B-1) 50 mg 00:00: mouth [place] tablet 00 daily. Medical Branch cholecalcif Yes [id number] Unsure of Univers tamika, 7-08 dose. ity of vitamin D3, 00:00: [place] 1,000 unit 00 Medical tablet Branch vitamin 2018-0 Yes [id number] 5000ug Take 5 U nivers B-12 1,000 7-08 tablets by ity of mcg tablet 00:00: mouth [place] 00 daily. Medical Branch vitamin B-1 Yes [id number] 50mg Take 1 Univers (VITAMIN 7-08 tablet by ity of B-1) 50 mg 00:00: mouth [place] tablet 00 daily. Medical Branch cholecalcif Yes [id number] Unsure of Univers tamika, 7-08 dose. ity of vitamin D3, 00:00: [place] 1,000 unit 00 Medical tablet Branch vitamin 2019-0 Yes [id number] 5000ug Take 5 U nivers B-12 1,000 7-08 tablets by ity of mcg tablet 00:00: mouth [place] 00 daily. Medical Branch vitamin B-1 Yes [id number] 50mg Take 1 Univers (VITAMIN 7-08 tablet by ity of B-1) 50 mg 00:00: mouth [place] tablet 00 daily. Medical Branch cholecalcif Yes [id number] Unsure of Univers tamika, 7-08 dose. ity of vitamin D3, 00:00: [place] 1,000 unit 00 Medical tablet Branch vitamin 2018- Yes [id number] 5000ug Take 5 U nivers B-12 1,000 7-08 tablets by ity of mcg tablet 00:00: mouth [place] 00 daily. Medical Branch vitamin B-1 Yes [id number] 50mg Take 1 Univers (VITAMIN 7-08 tablet by ity of B-1) 50 mg 00:00: mouth [place] tablet 00 daily. Medical Branch cholecalcif Yes [id number] Unsure of Univers tamika, 7-08 dose. ity of vitamin D3, 00:00: [place] 1,000 unit 00 Medical tablet Branch vitamin 2018- Yes [id number] 5000ug Take 5 U nivers B-12 1,000 7-08 tablets by ity of mcg tablet 00:00: mouth [place] 00 daily. Medical Branch vitamin B-1 Yes [id number] 50mg Take 1 Univers (VITAMIN 7-08 tablet by ity of B-1) 50 mg 00:00: mouth [place] tablet 00 daily. Medical Branch cholecalcif 2018- Yes [id number] Unsure of Univers tamika, 7-08 dose. ity of vitamin D3, 00:00: [place] 1,000 unit 00 Medical tablet Branch vitamin 2018- Yes [id number] 5000ug Take 5 U nivers B-12 1,000 7-08 tablets by ity of mcg tablet 00:00: mouth [place] 00 daily. Medical Branch vitamin B-1 Yes [id number] 50mg Take 1 Univers (VITAMIN 7-08 tablet by ity of B-1) 50 mg 00:00: mouth [place] tablet 00 daily. Medical Branch cholecalcif Yes [id number] Unsure of Univers tamika, 7-08 dose. ity of vitamin D3, 00:00: [place] 1,000 unit 00 Medical tablet Branch vitamin 2019-0 Yes [id number] 5000ug Take 5 U nivers B-12 1,000 7-08 tablets by ity of mcg tablet 00:00: mouth [place] 00 daily. Medical Branch vitamin B-1 Yes [id number] 50mg Take 1 Univers (VITAMIN 7-08 tablet by ity of B-1) 50 mg 00:00: mouth [place] tablet 00 daily. Medical Branch cholecalcif Yes [id number] Unsure of Univers tamika, 7-08 dose. ity of vitamin D3, 00:00: [place] 1,000 unit 00 Medical tablet Branch vitamin 2018- Yes [id number] 5000ug Take 5 U nivers B-12 1,000 7-08 tablets by ity of mcg tablet 00:00: mouth [place] 00 daily. Medical Branch vitamin B-1 Yes [id number] 50mg Take 1 Univers (VITAMIN 7-08 tablet by ity of B-1) 50 mg 00:00: mouth [place] tablet 00 daily. Medical Branch cholecalcif Yes [id number] Unsure of Univers tamika, 7-08 dose. ity of vitamin D3, 00:00: [place] 1,000 unit 00 Medical tablet Branch vitamin 2019-0 Yes [id number] 5000ug Take 5 U nivers B-12 1,000 7-08 tablets by ity of mcg tablet 00:00: mouth [place] 00 daily. Medical Branch vitamin B-1 Yes [id number] 50mg Take 1 Univers (VITAMIN 7-08 tablet by ity of B-1) 50 mg 00:00: mouth [place] tablet 00 daily. Medical Branch cholecalcif Yes [id number] Unsure of Univers tamika, 7-08 dose. ity of vitamin D3, 00:00: [place] 1,000 unit 00 Medical tablet Branch vitamin 2019- Yes [id number] 5000ug Take 5 U nivers B-12 1,000 7-08 tablets by ity of mcg tablet 00:00: mouth [place] 00 daily. Medical Branch vitamin B-1 2018- Yes [id number] 50mg Take 1 Univers (VITAMIN 7-08 tablet by ity of B-1) 50 mg 00:00: mouth [place] tablet 00 daily. Medical Branch cholecalcif 2018- Yes [id number] Unsure of Univers tamika, 7-08 dose. ity of vitamin D3, 00:00: [place] 1,000 unit 00 Medical tablet Branch vitamin 2018-0 Yes [id number] 5000ug Take 5 U nivers B-12 1,000 7-08 tablets by ity of mcg tablet 00:00: mouth [place] 00 daily. Medical Branch vitamin B-1 2018- Yes [id number] 50mg Take 1 Univers (VITAMIN 7-08 tablet by ity of B-1) 50 mg 00:00: mouth [place] tablet 00 daily. Medical Branch cholecalcif Yes [id number] Unsure of Univers tamika, 7-08 dose. ity of vitamin D3, 00:00: [place] 1,000 unit 00 Medical tablet Branch vitamin 2018-0 Yes [id number] 5000ug Take 5 U nivers B-12 1,000 7-08 tablets by ity of mcg tablet 00:00: mouth [place] 00 daily. Medical Branch vitamin B-1 Yes [id number] 50mg Take 1 Univers (VITAMIN 7-08 tablet by ity of B-1) 50 mg 00:00: mouth [place] tablet 00 daily. Medical Branch cholecalcif 2018- Yes [id number] Unsure of Univers tamika, 7-08 dose. ity of vitamin D3, 00:00: [place] 1,000 unit 00 Medical tablet Branch vitamin 2019-0 Yes [id number] 5000ug Take 5 U nivers B-12 1,000 7-08 tablets by ity of mcg tablet 00:00: mouth [place] 00 daily. Medical Branch vitamin B-1 2018- Yes [id number] 50mg Take 1 Univers (VITAMIN 7-08 tablet by ity of B-1) 50 mg 00:00: mouth [place] tablet 00 daily. Medical Branch cholecalcif 2018- Yes [id number] Unsure of Univers tamika, 7-08 dose. ity of vitamin D3, 00:00: [place] 1,000 unit 00 Medical tablet Branch vitamin 2019-0 Yes [id number] 5000ug Take 5 U nivers B-12 1,000 7-08 tablets by ity of mcg tablet 00:00: mouth [place] 00 daily. Medical Branch vitamin B-1 2018- Yes [id number] 50mg Take 1 Univers (VITAMIN 7-08 tablet by ity of B-1) 50 mg 00:00: mouth [place] tablet 00 daily. Medical Branch cholecalcif 2019- Yes [id number] Unsure of Univers tamika, 7-08 dose. ity of vitamin D3, 00:00: [place] 1,000 unit 00 Medical tablet Branch vitamin 2019-0 Yes [id number] 5000ug Take 5 U nivers B-12 1,000 7-08 tablets by ity of mcg tablet 00:00: mouth [place] 00 daily. Medical Branch vitamin B-1 2018- Yes [id number] 50mg Take 1 Univers (VITAMIN 7-08 tablet by ity of B-1) 50 mg 00:00: mouth [place] tablet 00 daily. Medical Branch cholecalcif 2018- Yes [id number] Unsure of Univers tamika, 7-08 dose. ity of vitamin D3, 00:00: [place] 1,000 unit 00 Medical tablet Branch vitamin 2019-0 Yes [id number] 5000ug Take 5 U nivers B-12 1,000 7-08 tablets by ity of mcg tablet 00:00: mouth [place] 00 daily. Medical Branch vitamin B-1 2018- Yes [id number] 50mg Take 1 Univers (VITAMIN 7-08 tablet by ity of B-1) 50 mg 00:00: mouth [place] tablet 00 daily. Medical Branch cholecalcif 2018- Yes [id number] Unsure of Univers tamika, 7-08 dose. ity of vitamin D3, 00:00: [place] 1,000 unit 00 Medical tablet Branch vitamin 2019-0 Yes [id number] 5000ug Take 5 U nivers B-12 1,000 7-08 tablets by ity of mcg tablet 00:00: mouth [place] 00 daily. Medical Branch vitamin B-1 2018- Yes [id number] 50mg Take 1 Univers (VITAMIN 7-08 tablet by ity of B-1) 50 mg 00:00: mouth [place] tablet 00 daily. Medical Branch cholecalcif 2018- Yes [id number] Unsure of Univers tamika, 7-08 dose. ity of vitamin D3, 00:00: [place] 1,000 unit 00 Medical tablet Branch vitamin 2019-0 Yes [id number] 5000ug Take 5 U nivers B-12 1,000 7-08 tablets by ity of mcg tablet 00:00: mouth [place] 00 daily. Medical Branch vitamin B-1 Yes [id number] 50mg Take 1 Univers (VITAMIN 7-08 tablet by ity of B-1) 50 mg 00:00: mouth [place] tablet 00 daily. Medical Branch cholecalcif Yes [id number] Unsure of Univers tamika, 7-08 dose. ity of vitamin D3, 00:00: [place] 1,000 unit 00 Medical tablet Branch vitamin 2018-0 Yes [id number] 5000ug Take 5 U nivers B-12 1,000 7-08 tablets by ity of mcg tablet 00:00: mouth [place] 00 daily. Medical Branch vitamin B-1 Yes [id number] 50mg Take 1 Univers (VITAMIN 7-08 tablet by ity of B-1) 50 mg 00:00: mouth [place] tablet 00 daily. Medical Branch cholecalcif Yes [id number] Unsure of Univers tamika, 7-08 dose. ity of vitamin D3, 00:00: [place] 1,000 unit 00 Medical tablet Branch vitamin 2019-0 Yes [id number] 5000ug Take 5 U nivers B-12 1,000 7-08 tablets by ity of mcg tablet 00:00: mouth [place] 00 daily. Medical Branch vitamin B-1 Yes [id number] 50mg Take 1 Univers (VITAMIN 7-08 tablet by ity of B-1) 50 mg 00:00: mouth [place] tablet 00 daily. Medical Branch cholecalcif Yes [id number] Unsure of Univers tamika, 7-08 dose. ity of vitamin D3, 00:00: [place] 1,000 unit 00 Medical tablet Branch vitamin 2019- Yes [id number] 5000ug Take 5 U nivers B-12 1,000 7-08 tablets by ity of mcg tablet 00:00: mouth [place] 00 daily. Medical Branch vitamin B-1 Yes [id number] 50mg Take 1 [facility] (VITAMIN 7-08 tablet by ity of B-1) 50 mg 00:00: mouth [place] tablet 00 daily. Medical Branch cholecalcif Yes [id number] Unsure of [facility] tamika, 7-08 dose. ity of vitamin D3, 00:00: [place] 1,000 unit 00 Medical tablet Branch vitamin 2019- Yes [id number] 5000ug Take 5 U nivers B-12 1,000 7-08 tablets by ity of mcg tablet 00:00: mouth [place] 00 daily. Medical Branch vitamin B-1 2018- Yes [id number] 50mg Take 1 [facility] (VITAMIN 7-08 tablet by ity of B-1) 50 mg 00:00: mouth [place] tablet 00 daily. Medical Branch cholecalcif 2018- Yes [id number] Unsure of [facility] tamika, 7-08 dose. ity of vitamin D3, 00:00: [place] 1,000 unit 00 Medical tablet Branch vitamin 2019-0 Yes [id number] 5000ug Take 5 U nivers B-12 1,000 7-08 tablets by ity of mcg tablet 00:00: mouth [place] 00 daily. Medical Branch vitamin B-1 Yes [id number] 50mg Take 1 [facility] (VITAMIN 7-08 tablet by ity of B-1) 50 mg 00:00: mouth [place] tablet 00 daily. Medical Branch cholecalcif 2018- Yes [id number] Unsure of [facility] tamika, 7-08 dose. ity of vitamin D3, 00:00: [place] 1,000 unit 00 Medical tablet Branch vitamin 2019-0 Yes [id number] 5000ug Take 5 U nivers B-12 1,000 7-08 tablets by ity of mcg tablet 00:00: mouth [place] 00 daily. Medical Branch vitamin B-1 Yes [id number] 50mg Take 1 Univers (VITAMIN 7-08 tablet by ity of B-1) 50 mg 00:00: mouth [place] tablet 00 daily. Medical Branch cholecalcif 2018- Yes [id number] Unsure of Univers tamika, 7-08 dose. ity of vitamin D3, 00:00: [place] 1,000 unit 00 Medical tablet Branch vitamin 2019-0 Yes [id number] 5000ug Take 5 U nivers B-12 1,000 7-08 tablets by ity of mcg tablet 00:00: mouth [place] 00 daily. Medical Branch vitamin B-1 2018- Yes [id number] 50mg Take 1 Univers (VITAMIN 7-08 tablet by ity of B-1) 50 mg 00:00: mouth [place] tablet 00 daily. Medical Branch cholecalcif 2018- Yes [id number] Unsure of Univers tamika, 7-08 dose. ity of vitamin D3, 00:00: [place] 1,000 unit 00 Medical tablet Branch vitamin 2019-0 Yes [id number] 5000ug Take 5 U nivers B-12 1,000 7-08 tablets by ity of mcg tablet 00:00: mouth [place] 00 daily. Medical Branch vitamin B-1 2018- Yes [id number] 50mg Take 1 Univers (VITAMIN 7-08 tablet by ity of B-1) 50 mg 00:00: mouth [place] tablet 00 daily. Medical Branch cholecalcif 2018- Yes [id number] Unsure of [facility] tamika, 7-08 dose. ity of vitamin D3, 00:00: [place] 1,000 unit 00 Medical tablet Branch cholecalcif 2018- Yes [id number] Unsure of [facility] tamika, 7-08 dose. ity of vitamin D3, 00:00: [place] 1,000 unit 00 Medical tablet Branch vitamin 2018-0 Yes [id number] 5000ug Take 5 U nivers B-12 1,000 7-08 tablets by ity of mcg tablet 00:00: mouth [place] 00 daily. Medical Branch vitamin B-1 Yes [id number] 50mg Take 1 Univers (VITAMIN 7-08 tablet by ity of B-1) 50 mg 00:00: mouth [place] tablet 00 daily. Medical Branch vitamin 2019-0 Yes [id number] 5000ug Take 5 U nivers B-12 1,000 7-08 tablets by ity of mcg tablet 00:00: mouth [place] 00 daily. Medical Branch vitamin B-1 Yes [id number] 50mg Take 1 [facility] (VITAMIN 7-08 tablet by ity of B-1) 50 mg 00:00: mouth [place] tablet 00 daily. Medical Branch cholecalcif 2018- Yes [id number] Unsure of [facility] tamika, 7-08 dose. ity of vitamin D3, 00:00: [place] 1,000 unit 00 Medical tablet Branch vitamin 2019-0 Yes [id number] 5000ug Take 5 U nivers B-12 1,000 7-08 tablets by ity of mcg tablet 00:00: mouth [place] 00 daily. Medical Branch vitamin B-1 Yes [id number] 50mg Take 1 [facility] (VITAMIN 7-08 tablet by ity of B-1) 50 mg 00:00: mouth [place] tablet 00 daily. Medical Branch cholecalcif 2018- Yes [id number] Unsure of Univers tamika, 7-08 dose. ity of vitamin D3, 00:00: [place] 1,000 unit 00 Medical tablet Branch vitamin Yes [id number] 5000ug Take 5 U nivers B-12 1,000 7-08 tablets by ity of mcg tablet 00:00: mouth [place] 00 daily. Medical Branch vitamin B-1 Yes [id number] 50mg Take 1 [facility] (VITAMIN 7-08 tablet by ity of B-1) 50 mg 00:00: mouth [place] tablet 00 daily. Medical Branch cholecalcif Yes [id number] Unsure of [facility] tamika, 7-08 dose. ity of vitamin D3, 00:00: [place] 1,000 unit 00 Medical tablet Branch vitamin Yes [id number] 5000ug Take 5 U nivers B-12 1,000 7-08 tablets by ity of mcg tablet 00:00: mouth [place] 00 daily. Medical Branch vitamin B-1 Yes [id number] 50mg Take 1 [facility] (VITAMIN 7-08 tablet by ity of B-1) 50 mg 00:00: mouth [place] tablet 00 daily. Medical Branch cholecalcif Yes [id number] Unsure of [facility] tamika, 7-08 dose. ity of vitamin D3, 00:00: [place] 1,000 unit 00 Medical tablet Branch vitamin Yes [id number] 5000ug Take 5 U nivers B-12 1,000 7-08 tablets by ity of mcg tablet 00:00: mouth [place] 00 daily. Medical [place] vitamin B-1 Yes [id number] 50mg Take 1 Univers (VITAMIN 7-08 tablet by ity of B-1) 50 mg 00:00: mouth [place] tablet 00 daily. Medical Branch Insulin 2019- No DX: E11.9 [facility] [place] [facility] ers Syringe-Nee 08-03 Use as ity o f dle U-100 00:00: 00:00 Skip [facility] (BD INSULIN 00 :00 QID Medical S[facility]ING[facility] Branch ULTRA-FINE) 0.3 mL 31 gauge x 5/16" Syrg turmeric 2018- Yes [id number] 1{tbl} Take 1 Univers root 4-11 tablet by ity of extract 500 00:00: mouth [place] mg Cap 00 daily. Medical Branch turmeric 2018- Yes [id number] 1{tbl} Take 1 [facility] root 4-11 tablet by ity of extract 500 00:00: mouth [place] mg Cap 00 daily. Medical Branch turmeric Yes [id number] 1{tbl} Take 1 [facility] root 4-11 tablet by ity of extract 500 00:00: mouth [place] mg Cap 00 daily. Medical Branch turmeric Yes [id number] 1{tbl} Take 1 Univers root 4-11 tablet by ity of extract 500 00:00: mouth [place] mg Cap 00 daily. Medical Branch turmeric Yes [id number] 1{tbl} Take 1 [facility] root 4-11 tablet by ity of extract 500 00:00: mouth [place] mg Cap 00 daily. Medical Branch turmeric Yes [id number] 1{tbl} Take 1 [facility] root 4-11 tablet by ity of extract 500 00:00: mouth [place] mg Cap 00 daily. Medical Branch turmeric Yes [id number] 1{tbl} Take 1 [facility] root 4-11 tablet by ity of extract 500 00:00: mouth [place] mg Cap 00 daily. Medical Branch turmeric Yes [id number] 1{tbl} Take 1 [facility] root 4-11 tablet by ity of extract 500 00:00: mouth [place] mg Cap 00 daily. Medical Branch turmeric Yes [id number] 1{tbl} Take 1 [facility] root 4-11 tablet by ity of extract 500 00:00: mouth [place] mg Cap 00 daily. Medical Branch turmeric Yes [id number] 1{tbl} Take 1 [facility] root 4-11 tablet by ity of extract 500 00:00: mouth [place] mg Cap 00 daily. Medical Branch turmeric 0 Yes [id number] 1{tbl} Take 1 [facility] root 4-11 tablet by ity of extract 500 00:00: mouth [place] mg Cap 00 daily. Medical Branch turmeric Yes [id number] 1{tbl} Take 1 [facility] root 4-11 tablet by ity of extract 500 00:00: mouth [place] mg Cap 00 daily. Medical Branch turmeric Yes [id number] 1{tbl} Take 1 [facility] root 4-11 tablet by ity of extract 500 00:00: mouth [place] mg Cap 00 daily. Medical Branch turmeric Yes [id number] 1{tbl} Take 1 [facility] root 4-11 tablet by ity of extract 500 00:00: mouth [place] mg Cap 00 daily. Medical Branch meloxicam Yes [id number] 15mg Take 1 U nivers 15 mg 4-11 tablet by ity of tablet 00:00: mouth [place] 00 daily. Medical Branch turmeric Yes [id number] 1{tbl} Take 1 [facility] root 4-11 tablet by ity of extract 500 00:00: mouth [place] mg Cap 00 daily. Medical Branch meloxicam Yes [id number] 15mg Take 1 U nivers 15 mg 4-11 tablet by ity of tablet 00:00: mouth [place] 00 daily. Medical Branch turmeric Yes [id number] 1{tbl} Take 1 [facility] root 4-11 tablet by ity of extract 500 00:00: mouth [place] mg Cap 00 daily. Medical Branch meloxicam Yes [id number] 15mg Take 1 U nivers 15 mg 4-11 tablet by ity of tablet 00:00: mouth [place] 00 daily. Medical Branch turmeric Yes [id number] 1{tbl} Take 1 [facility] root 4-11 tablet by ity of extract 500 00:00: mouth [place] mg Cap 00 daily. Medical Branch meloxicam Yes [id number] 15mg Take 1 U nivers 15 mg 4-11 tablet by ity of tablet 00:00: mouth [place] 00 daily. Medical Branch turmeric Yes [id number] 1{tbl} Take 1 [facility] root 4-11 tablet by ity of extract 500 00:00: mouth [place] mg Cap 00 daily. Medical Branch turmeric Yes [id number] 1{tbl} Take 1 [facility] root 4-11 tablet by ity of extract 500 00:00: mouth [place] mg Cap 00 daily. Medical Branch turmeric Yes [id number] 1{tbl} Take 1 [facility] root 4-11 tablet by ity of extract 500 00:00: mouth [place] mg Cap 00 daily. Medical Branch turmeric Yes [id number] 1{tbl} Take 1 [facility] root 4-11 tablet by ity of extract 500 00:00: mouth [place] mg Cap 00 daily. Medical Branch turmeric Yes [id number] 1{tbl} Take 1 [facility] root 4-11 tablet by ity of extract 500 00:00: mouth [place] mg Cap 00 daily. Medical Branch turmeric 0 Yes [id number] 1{tbl} Take 1 [facility] root 4-11 tablet by ity of extract 500 00:00: mouth [place] mg Cap 00 daily. Medical Branch turmeric Yes [id number] 1{tbl} Take 1 [facility] root 4-11 tablet by ity of extract 500 00:00: mouth [place] mg Cap 00 daily. Medical Branch turmeric 0 Yes [id number] 1{tbl} Take 1 [facility] root 4-11 tablet by ity of extract 500 00:00: mouth [place] mg Cap 00 daily. Medical Branch turmeric Yes [id number] 1{tbl} Take 1 [facility] root 4-11 tablet by ity of extract 500 00:00: mouth [place] mg Cap 00 daily. Medical Branch turmeric Yes [id number] 1{tbl} Take 1 [facility] root 4-11 tablet by ity of extract 500 00:00: mouth [place] mg Cap 00 daily. Medical Branch turmeric Yes [id number] 1{tbl} Take 1 [facility] root 4-11 tablet by ity of extract 500 00:00: mouth [place] mg Cap 00 daily. Medical Branch turmeric Yes [id number] 1{tbl} Take 1 [facility] root 4-11 tablet by ity of extract 500 00:00: mouth [place] mg Cap 00 daily. Medical Branch turmeric Yes [id number] 1{tbl} Take 1 [facility] root 4-11 tablet by ity of extract 500 00:00: mouth [place] mg Cap 00 daily. Medical Branch turmeric 0 Yes [id number] 1{tbl} Take 1 [facility] root 4-11 tablet by ity of extract 500 00:00: mouth [place] mg Cap 00 daily. Medical Branch turmeric 0 Yes [id number] 1{tbl} Take 1 [facility] root 4-11 tablet by ity of extract 500 00:00: mouth [place] mg Cap 00 daily. Medical Branch turmeric Yes [id number] 1{tbl} Take 1 [facility] root 4-11 tablet by ity of extract 500 00:00: mouth [place] mg Cap 00 daily. Medical Branch turmeric Yes [id number] 1{tbl} Take 1 [facility] root 4-11 tablet by ity of extract 500 00:00: mouth [place] mg Cap 00 daily. Medical Branch turmeric 2019- Yes [id number] 1{tbl} Take 1 [facility] root 4-11 tablet by ity of extract 500 00:00: mouth [place] mg Cap 00 daily. Medical Branch turmeric 2018- Yes [id number] 1{tbl} Take 1 [facility] root 4-11 tablet by ity of extract 500 00:00: mouth [place] mg Cap 00 daily. Medical Branch meloxicam 2019- No [id number] 15mg Take 1 [facility] 15 mg 4-11 09-09 tablet by ity of tablet 00:00: 00:00 mouth [place] 00 :00 daily. Medical [facility] gabapentin 2018- Yes [id number] 900mg Take 3 [facility] 300 mg 2-22 capsules [facility] capsule 00:00: [place] (three) [facility] times Branch daily. gabapentin 2018- Yes [id number] 900mg Take 3 [facility] 300 mg 2-22 capsules [facility] capsule 00:00: [place] (three) [facility] times [facility] daily. gabapentin 2019- No [id number] 900mg Take 3 [facility] 300 mg 2-22 08-15 capsules ity of capsule 00:00: 00:00 by mouth 3 [place] 00 :00 (three) Medical times Branch daily. levothyroxi Yes [id number] 125ug Take 1 [facility] ne 125 mcg 2-10 tablet by ity of tablet 00:00: mouth [place] 00 every Medical morning. Branch levothyroxi 2018- Yes [id number] 125ug Take 1 [facility] ne 125 mcg 2-10 tablet by ity of tablet 00:00: mouth [place] 00 every Medical morning. Branch levothyroxi Yes [id number] 125ug Take 1 [facility] ne 125 mcg 2-10 tablet by ity of tablet 00:00: mouth [place] 00 every Medical morning. Branch levothyroxi Yes [id number] 125ug Take 1 [facility] ne 125 mcg 2-10 tablet by ity of tablet 00:00: mouth [place] 00 every Medical morning. Branch levothyroxi 0 2019- No [id number] 125ug Take 1 [facility] ne 125 mcg 2-10 - tablet by ity of tablet 00:00: 00:00 mouth [place] 00 :00 every Medical morning. Branch hydroCHLORO 2017-02 Yes [id number] 50mg Take 1 U nivers thiazide 50 1-30 tablet by ity of mg tablet 00:00: mouth [place] 00 daily. For Medical blood Branch pressure. hydroCHLORO 2017-02 Yes [id number] 50mg Take 1 U nivers thiazide 50 1-30 tablet by ity of mg tablet 00:00: mouth [place] 00 daily. For Medical blood Branch pressure. hydroCHLORO 2017-02 Yes [id number] 50mg Take 1 U nivers thiazide 50 1-30 tablet by ity of mg tablet 00:00: mouth [place] 00 daily. For Medical blood Branch pressure. hydroCHLORO 2017-02 Yes [id number] 50mg Take 1 U nivers thiazide 50 1-30 tablet by ity of mg tablet 00:00: mouth [place] 00 daily. For Medical blood Branch pressure. hydroCHLORO 2017-02 Yes [id number] 50mg Take 1 U nivers thiazide 50 1-30 tablet by ity of mg tablet 00:00: mouth [place] 00 daily. For Medical blood Branch pressure. atorvastati 2017-02 Yes 20mg Take 1 [facility] ers n (LIPITOR) 1-12 tablet by ity of 20 mg 00:00: mouth at [place] tablet 00 bedtime. Medical For Branch cholestero l insulin 2017-02 Yes [id number] 5U inject 5 U nivers regular 1-12 Units ity of human 00:00: under the [place] (HUMULIN R 00 skin 3 Medical REGULAR (three) Branch U-100 times INSULN) 100 daily unit/mL before injection meals. losartan 2017-02 Yes [id number] 100mg Take 1 [facility] vers 100 mg 1-12 tablet by ity of tablet 00:00: mouth [place] 00 daily. For Medical blood Branch pressure metFORMIN 2017-02 Yes [id number] 1000mg Take 1 [facility] 1,000 mg 1-12 tablet by ity of tablet 00:00: mouth 2 [place] 00 (two) Medical times Branch daily with meals. For diabetes insulin 2017-02 Yes [id number] 30U inject 30 [facility] glargine 1-12 Units ity of (LANTUS 00:00: under the [place] U-100 00 skin at Medical INSULIN) bedtime. Branch 100 unit/mL injection atorvastati 2017-02 Yes 20mg Take 1 [facility] ers n (LIPITOR) 1-12 tablet by ity of 20 mg 00:00: mouth at [place] tablet 00 bedtime. Medical For Branch cholestero l insulin 2017-02 Yes [id number] 5U inject 5 U nivers regular 1-12 Units ity of human 00:00: under the [place] (HUMULIN R 00 skin 3 Medical REGULAR (three) Branch U-100 times INSULN) 100 daily unit/mL before injection meals. losartan 2017-02 Yes [id number] 100mg Take 1 [facility] vers 100 mg 1-12 tablet by ity of tablet 00:00: mouth [place] 00 daily. For Medical blood Branch pressure metFORMIN 2017-02 Yes [id number] 1000mg Take 1 [facility] 1,000 mg 1-12 tablet by ity of tablet 00:00: mouth 2 00 (two) Medical times Branch daily with meals. For diabetes insulin 2017-02 Yes [id number] 30U inject 30 [facility] glargine 1-12 Units ity of (LANTUS 00:00: under the [place] U-100 00 skin at Medical INSULIN) bedtime. Branch 100 unit/mL injection atorvastati 2017-02 Yes 20mg Take 1 [facility] ers n (LIPITOR) 1-12 tablet by ity of 20 mg 00:00: mouth at [place] tablet 00 bedtime. Medical For Branch cholestero l insulin 2017-02 Yes [id number] 5U inject 5 U nivers regular 1-12 Units ity of human 00:00: under the [place] (HUMULIN R 00 skin 3 Medical REGULAR (three) Branch U-100 times INSULN) 100 daily unit/mL before injection meals. losartan 2017-02 Yes [id number] 100mg Take 1 [facility] vers 100 mg 1-12 tablet by ity of tablet 00:00: mouth [place] 00 daily. For Medical blood Branch pressure metFORMIN 2017-02 Yes [id number] 1000mg Take 1 [facility] 1,000 mg 1-12 tablet by ity of tablet 00:00: mouth 2 00 (two) Medical times Branch daily with meals. For diabetes insulin 2017-02 Yes [id number] 30U inject 30 [facility] glargine 1-12 Units ity of (LANTUS 00:00: under the [place] U-100 00 skin at Medical INSULIN) bedtime. Branch 100 unit/mL injection atorvastati 2017-02 Yes 20mg Take 1 [facility] ers n (LIPITOR) 1-12 tablet by ity of 20 mg 00:00: mouth at [place] tablet 00 bedtime. Medical For Branch cholestero l insulin 2017-02 Yes [id number] 5U inject 5 U nivers regular 1-12 Units ity of human 00:00: under the [place] (HUMULIN R 00 skin 3 Medical REGULAR (three) Branch U-100 times INSULN) 100 daily unit/mL before injection meals. losartan 2017-02 Yes [id number] 100mg Take 1 [facility] vers 100 mg 1-12 tablet by ity of tablet 00:00: mouth [place] 00 daily. For Medical blood Branch pressure metFORMIN 2017-02 Yes [id number] 1000mg Take 1 [facility] 1,000 mg 1-12 tablet by ity of tablet 00:00: mouth 2 00 (two) Medical times Branch daily with meals. For diabetes insulin 2017-02 Yes [id number] 30U inject 30 [facility] glargine 1-12 Units ity of (LANTUS 00:00: under the [place] U-100 00 skin at Medical INSULIN) bedtime. Branch 100 unit/mL injection atorvastati 2017-02 Yes 20mg Take 1 [facility] ers n (LIPITOR) 1-12 tablet by ity of 20 mg 00:00: mouth at [place] tablet 00 bedtime. Medical For Branch cholestero l insulin 2017-02 Yes [id number] 5U inject 5 U nivers regular 1-12 Units ity of human 00:00: under the [place] (HUMULIN R 00 skin 3 Medical REGULAR (three) Branch U-100 times INSULN) 100 daily unit/mL before injection meals. losartan 2017-02 Yes [id number] 100mg Take 1 [facility] vers 100 mg 1-12 tablet by ity of tablet 00:00: mouth [place] 00 daily. For Medical blood Branch pressure metFORMIN 2017-02 Yes [id number] 1000mg Take 1 [facility] 1,000 mg 1-12 tablet by ity of tablet 00:00: mouth 2 [place] 00 (two) Medical times Branch daily with meals. For diabetes insulin 2017-02 Yes [id number] 30U inject 30 [facility] glargine 1-12 Units ity of (LANTUS 00:00: under the [place] U-100 00 skin at Medical INSULIN) bedtime. Branch 100 unit/mL injection Insulin Yes Check [facility] Syringes, 1-22 Fingerstic ity of Disposable, 00:00: k blood [place] 1 mL Syrg 00 glucose Medical qid. Branch Please dispense the relion syringes. RX#[id number] 4 ICD-E11.9 Insulin 0 Yes Check [facility] Syringes, 1-22 Fingerstic ity of Disposable, 00:00: k blood [place] 1 mL Syrg 00 glucose Medical qid. Branch Please dispense the [facility]ion syringes. RX#[id number] 4 ICD-E11.9 Insulin Yes Check [facility] Syringes, 1-22 Fingerstic ity of Disposable, 00:00: k blood [place] 1 mL Syrg 00 glucose Medical qid. Branch Please dispense the relion syringes. RX#[id number] 4 ICD-E11.9 Insulin Yes Check [facility] Syringes, 1-22 Fingerstic ity of Disposable, 00:00: k blood [place] 1 mL Syrg 00 glucose Medical qid. Branch Please dispense the relion syringes. RX#[id number] 4 ICD-E11.9 Insulin Yes Check [facility] Syringes, 1-22 Fingerstic ity of Disposable, 00:00: k blood [place] 1 mL Syrg 00 glucose Medical qid. Branch Please dispense the relion syringes. RX#[id number] 4 ICD-E11.9 Insulin Yes Check [facility] Syringes, 1-22 Fingerstic ity of Disposable, 00:00: k blood [place] 1 mL Syrg 00 glucose Medical qid. Branch Please dispense the relion syringes. RX#[id number] 4 ICD-E11.9 Insulin Yes Check [facility] Syringes, 1-22 Fingerstic ity of Disposable, 00:00: k blood [place] 1 mL Syrg 00 glucose Medical qid. Branch Please dispense the relion syringes. RX#[id number] 4 ICD-E11.9 Insulin Yes Check [facility] Syringes, 1-22 Fingerstic ity of Disposable, 00:00: k blood [place] 1 mL Syrg 00 glucose Medical qid. Branch Please dispense the relion syringes. RX#[id number] 4 ICD-E11.9 Insulin 0 Yes Check [facility] Syringes, 1-22 Fingerstic ity of Disposable, 00:00: k blood [place] 1 mL Syrg 00 glucose Medical qid. Branch Please dispense the relion syringes. RX#[id number] 4 ICD-E11.9 Insulin Yes Check [facility] Syringes, 1-22 Fingerstic ity of Disposable, 00:00: k blood [place] 1 mL Syrg 00 glucose Medical qid. Branch Please dispense the relion syringes. RX#[id number] 4 ICD-E11.9 Insulin Yes Check [facility] Syringes, 1-22 Fingerstic ity of Disposable, 00:00: k blood [place] 1 mL Syrg 00 glucose Medical qid. Branch Please dispense the relion syringes. RX#[id number] 4 ICD-E11.9 Insulin Yes Check [facility] Syringes, 1-22 Fingerstic ity of Disposable, 00:00: k blood [place] 1 mL Syrg 00 glucose Medical qid. Branch Please dispense the relion syringes. RX#[id number] 4 ICD-E11.9 Insulin Yes Check [facility] Syringes, 1-22 Fingerstic ity of Disposable, 00:00: k blood [place] 1 mL Syrg 00 glucose Medical qid. Branch Please dispense the relion syringes. RX#[id number] 4 ICD-E11.9 Insulin Yes Check [facility] Syringes, 1-22 Fingerstic ity of Disposable, 00:00: k blood [place] 1 mL Syrg 00 glucose Medical qid. Branch Please dispense the relion syringes. RX#[id number] 4 ICD-E11.9 Insulin Yes Check [facility] Syringes, 1-22 Fingerstic ity of Disposable, 00:00: k blood [place] 1 mL Syrg 00 glucose Medical qid. Branch Please dispense the relion syringes. RX#[id number] 4 ICD-E11.9 Insulin Yes Check [facility] Syringes, 1-22 Fingerstic ity of Disposable, 00:00: k blood [place] 1 mL Syrg 00 glucose Medical qid. Branch Please dispense the relion syringes. RX#[id number] 4 ICD-E11.9 Insulin Yes Check [facility] Syringes, 1-22 Fingerstic ity of Disposable, 00:00: k blood [place] 1 mL Syrg 00 glucose Medical qid. Branch Please dispense the relion syringes. RX#[id number] 4 ICD-E11.9 Insulin Yes Check [facility] Syringes, 1-22 Fingerstic ity of Disposable, 00:00: k blood [place] 1 mL Syrg 00 glucose Medical qid. Branch Please dispense the relion syringes. RX#[id number] 4 ICD-E11.9 Insulin 0 Yes Check [facility] Syringes, 1-22 Fingerstic ity of Disposable, 00:00: k blood [place] 1 mL Syrg 00 glucose Medical qid. Branch Please dispense the relion syringes. RX#[id number] 4 ICD-E11.9 Insulin 0 Yes Check [facility] Syringes, 1-22 Fingerstic ity of Disposable, 00:00: k blood [place] 1 mL Syrg 00 glucose Medical qid. Branch Please dispense the relion syringes. RX#[id number] 4 ICD-E11.9 Insulin Yes Check [facility] Syringes, 1-22 Fingerstic ity of Disposable, 00:00: k blood [place] 1 mL Syrg 00 glucose Medical qid. Branch Please dispense the relion syringes. RX#[id number] 4 ICD-E11.9 Insulin Yes Check [facility] Syringes, 1-22 Fingerstic ity of Disposable, 00:00: k blood [place] 1 mL Syrg 00 glucose Medical qid. Branch Please dispense the relion syringes. RX#[id number] 4 ICD-E11.9 Insulin 0 Yes Check [facility] Syringes, 1-22 Fingerstic ity of Disposable, 00:00: k blood [place] 1 mL Syrg 00 glucose Medical qid. Branch Please dispense the relion syringes. RX#[id number] 4 ICD-E11.9 Insulin Yes Check [facility] Syringes, 1-22 Fingerstic ity of Disposable, 00:00: k blood [place] 1 mL Syrg 00 glucose Medical qid. Branch Please dispense the relion syringes. RX#[id number] 4 ICD-E11.9 Insulin 0 Yes Check [facility] Syringes, 1-22 Fingerstic ity of Disposable, 00:00: k blood [place] 1 mL Syrg 00 glucose Medical qid. Branch Please dispense the relion syringes. RX#[id number] 4 ICD-E11.9 Insulin 0 Yes Check [facility] Syringes, 1-22 Fingerstic ity of Disposable, 00:00: k blood [place] 1 mL Syrg 00 glucose Medical qid. Branch Please dispense the relion syringes. RX#[id number] 4 ICD-E11.9 Insulin 0 Yes Check [facility] Syringes, 1-22 Fingerstic ity of Disposable, 00:00: k blood [place] 1 mL Syrg 00 glucose Medical qid. Branch Please dispense the relion syringes. RX#[id number] 4 ICD-E11.9 Insulin Yes Check [facility] Syringes, 1-22 Fingerstic ity of Disposable, 00:00: k blood [place] 1 mL Syrg 00 glucose Medical qid. Branch Please dispense the relion syringes. RX#[id number] 4 ICD-E11.9 Insulin Yes Check [facility] Syringes, 1-22 Fingerstic ity of Disposable, 00:00: k blood [place] 1 mL Syrg 00 glucose Medical qid. Branch Please dispense the relion syringes. RX#[id number] 4 ICD-E11.9 Insulin Yes Check [facility] Syringes, 1-22 Fingerstic ity of Disposable, 00:00: k blood [place] 1 mL Syrg 00 glucose Medical qid. Branch Please dispense the relion syringes. RX#[id number] 4 ICD-E11.9 Insulin Yes Check [facility] Syringes, 1-22 Fingerstic ity of Disposable, 00:00: k blood [place] 1 mL Syrg 00 glucose Medical qid. Branch Please dispense the relion syringes. RX#[id number] 4 ICD-E11.9 Insulin Yes Check [facility] Syringes, 1-22 Fingerstic ity of Disposable, 00:00: k blood [place] 1 mL Syrg 00 glucose Medical qid. Branch Please dispense the relion syringes. RX#[id number] 4 ICD-E11.9 Insulin Yes Check [facility] Syringes, 1-22 Fingerstic ity of Disposable, 00:00: k blood [place] 1 mL Syrg 00 glucose Medical qid. Branch Please dispense the relion syringes. RX#[id number] 4 ICD-E11.9 Insulin 0 Yes Check [facility] Syringes, 1-22 Fingerstic ity of Disposable, 00:00: k blood [place] 1 mL Syrg 00 glucose Medical qid. Branch Please dispense the relion syringes. RX#[id number] 4 ICD-E11.9 Insulin 2018-0 Yes Check [facility] Syringes, 1-22 Fingerstic ity of Disposable, 00:00: k blood [place] 1 mL Syrg 00 glucose Medical qid. Branch Please dispense the relion syringes. RX#[id number] 4 ICD-E11.9 Insulin 2017-0 Yes Check [facility] Syringes, 1-22 Fingerstic ity of Disposable, 00:00: k blood [place] 1 mL Syrg 00 glucose Medical qid. Branch Please dispense the relion syringes. RX#[id number] ICD-E11.9 Lancets & 2013-0 Yes [id number] Univ ers Blood 8-12 ity of Glucose 00:00: [place] Strips (ONE 00 Medical TOUCH Branch COMBO) Cmpk Lancets & 2013-0 Yes [id number] Univ ers Blood 8-12 ity of Glucose 00:00: [place] Strips ( 00 Medical TOUCH Branch COMBO) Cmpk Lancets & 2013-0 Yes [id number] [facility] ers Blood 8-12 ity of Glucose 00:00: [place] Strips ( 00 Medical TOUCH Branch COMBO) Cmpk Lancets & 2013-0 Yes [id number] [facility] ers Blood 8-12 ity of Glucose 00:00: [place] Strips (ONE 00 Medical TOUCH Branch COMBO) Cmpk Lancets & 2013-0 Yes [id number] Univ ers Blood 8-12 ity of Glucose 00:00: [place] Strips ( 00 Medical TOUCH Branch COMBO) Cmpk Lancets & 2013-0 Yes [id number] Univ ers Blood 8-12 ity of Glucose 00:00: [place] Strips ( 00 Medical TOUCH Branch COMBO) Cmpk Lancets & 2013-0 Yes [id number] Univ ers Blood 8-12 ity of Glucose 00:00: [place] Strips ( 00 Medical TOUCH Branch COMBO) Cmpk Lancets & 2013-0 Yes [id number] Univ ers Blood 8-12 ity of Glucose 00:00: [place] Strips ( 00 Medical TOUCH Branch COMBO) Cmpk Lancets & 2013-0 Yes [id number] Univ ers Blood 8-12 ity of Glucose 00:00: [place] Strips ( 00 Medical TOUCH Branch COMBO) Cmpk Lancets & 2013-0 Yes [id number] Univ ers Blood 8-12 ity of Glucose 00:00: [place] Strips ( 00 Medical TOUCH Branch COMBO) Cmpk Lancets & 2013-0 Yes [id number] Univ ers Blood 8-12 ity of Glucose 00:00: [place] Strips (ONE 00 Medical TOUCH Branch COMBO) Cmpk Lancets & 2013-0 Yes [id number] Univ ers Blood 8-12 ity of Glucose 00:00: [place] Strips (ONE 00 Medical TOUCH Branch COMBO) Cmpk Lancets & 2013-0 Yes [id number] Univ ers Blood 8-12 ity of Glucose 00:00: [place] Strips (ONE 00 Medical TOUCH Branch COMBO) Cmpk Lancets & 2013-0 Yes [id number] Univ ers Blood 8-12 ity of Glucose 00:00: [place] Strips (ONE 00 Medical TOUCH Branch COMBO) Cmpk Lancets & 2013-0 Yes [id number] Univ ers Blood 8-12 ity of Glucose 00:00: [place] Strips (ONE 00 Medical TOUCH Branch COMBO) Cmpk Lancets & 2013-0 Yes [id number] Univ ers Blood 8-12 ity of Glucose 00:00: [place] Strips (ONE 00 Medical TOUCH Branch COMBO) Cmpk Lancets & 2013-0 Yes [id number] Univ ers Blood 8-12 ity of Glucose 00:00: [place] Strips (ONE 00 Medical TOUCH Branch COMBO) Cmpk Lancets & 2013-0 Yes [id number] Univ ers Blood 8-12 ity of Glucose 00:00: [place] Strips (ONE 00 Medical TOUCH Branch COMBO) Cmpk Lancets & 2013-0 Yes [id number] Univ ers Blood 8-12 ity of Glucose 00:00: [place] Strips ( 00 Medical TOUCH Branch COMBO) Cmpk Lancets & 2013-0 Yes [id number] Univ ers Blood 8-12 ity of Glucose 00:00: [place] Strips (ONE 00 Medical TOUCH Branch COMBO) Cmpk Lancets & 2013-0 Yes [id number] Univ ers Blood 8-12 ity of Glucose 00:00: [place] Strips (ONE 00 Medical TOUCH Branch COMBO) Cmpk Lancets & 2013-0 Yes [id number] Univ ers Blood 8-12 ity of Glucose 00:00: [place] Strips (ONE 00 Medical TOUCH Branch COMBO) Cmpk Lancets & 2013-0 Yes [id number] Univ ers Blood 8-12 ity of Glucose 00:00: [place] Strips ( 00 Medical TOUCH Branch COMBO) Cmpk Lancets & 2013-0 Yes [id number] Univ ers Blood 8-12 ity of Glucose 00:00: [place] Strips (ONE 00 Medical TOUCH Branch COMBO) Cmpk Lancets & 2013-0 Yes [id number] Univ ers Blood 8-12 ity of Glucose 00:00: [place] Strips (ONE 00 Medical TOUCH Branch COMBO) Cmpk Lancets & 2013-0 Yes [id number] Univ ers Blood 8-12 ity of Glucose 00:00: [place] Strips (ONE 00 Medical TOUCH Branch COMBO) Cmpk Lancets & 2013-0 Yes [id number] Univ ers Blood 8-12 ity of Glucose 00:00: [place] Strips (ONE 00 Medical TOUCH Branch COMBO) Cmpk Lancets & 2013-0 Yes [id number] Univ ers Blood 8-12 ity of Glucose 00:00: [place] Strips (ONE 00 Medical TOUCH Branch COMBO) Cmpk Lancets & 2012-0 Yes [id number] Univ ers Blood 8-12 ity of Glucose 00:00: [place] Strips ( 00 Medical TOUCH Branch COMBO) Cmpk Lancets & 2013-0 Yes [id number] Univ ers Blood 8-12 ity of Glucose 00:00: [place] Strips ( 00 Medical TOUCH Branch COMBO) Cmpk Lancets & 2012-0 Yes [id number] Univ ers Blood 8-12 ity of Glucose 00:00: [place] Strips (ONE 00 Medical TOUCH Branch COMBO) Cmpk Lancets & 2013-0 Yes [id number] Univ ers Blood 8-12 ity of Glucose 00:00: [place] Strips ( 00 Medical TOUCH Branch COMBO) Cmpk Lancets & 2013-0 Yes [id number] Univ ers Blood 8-12 ity of Glucose 00:00: [place] Strips (ONE 00 Medical TOUCH Branch COMBO) Cmpk Lancets & 2013-0 Yes [id number] Univ ers Blood 8-12 ity of Glucose 00:00: [place] Strips ( 00 Medical TOUCH Branch COMBO) Cmpk Lancets & 2013-0 Yes [id number] Univ ers Blood 8-12 ity of Glucose 00:00: [place] Strips ( 00 Medical TOUCH Branch COMBO) Cmpk Lancets & 2013-0 Yes [id number] Univ ers Blood 8-12 ity of Glucose 00:00: [place] Strips ( 00 Medical TOUCH Branch COMBO) Cmpk Cushion 2011-02 Yes [id number] Univer s (CERVICAL 1-26 ity of PILLOW/COVE 00:00: [place] R) Mis 00 Medical Branch Cushion 2011-02 Yes [id number] Univer s (CERVICAL 1-26 ity of PILLOW/COVE 00:00: [place] R) Mis 00 Medical Branch Cushion 2011-02 Yes [id number] Univer s (CERVICAL 1-26 ity of PILLOW/COVE 00:00: [place] R) Mis 00 Medical Branch Cushion 2011-02 Yes [id number] Univer s (CERVICAL 1-26 ity of PILLOW/COVE 00:00: [place] R) Mis 00 Medical Branch Cushion 2011-02 Yes [id number] Univer s (CERVICAL 1-26 ity of PILLOW/COVE 00:00: [place] R) Mis 00 Medical Branch Cushion 2011-02 Yes [id number] Univer s (CERVICAL 1-26 ity of PILLOW/COVE 00:00: [place] R) Mis 00 Medical Branch Cushion 2011-02 Yes [id number] Univer s (CERVICAL 1-26 ity of PILLOW/COVE 00:00: [place] R) Mis 00 Medical Branch Cushion 2011-02 Yes [id number] Univer s (CERVICAL 1-26 ity of PILLOW/COVE 00:00: [place] R) Mis 00 Medical Branch Cushion 2011-02 Yes [id number] Univer s (CERVICAL 1-26 ity of PILLOW/COVE 00:00: [place] R) Mis 00 Medical Branch Cushion 2011-02 Yes [id number] Univer s (CERVICAL 1-26 ity of PILLOW/COVE 00:00: [place] R) Mis 00 Medical Branch Cushion 2011-02 Yes [id number] Univer s (CERVICAL 1-26 ity of PILLOW/COVE 00:00: [place] R) Mis 00 Medical Branch Cushion 2011-02 Yes [id number] Univer s (CERVICAL 1-26 ity of PILLOW/COVE 00:00: [place] R) Mis 00 Medical Branch Cushion 2011-02 Yes [id number] Univer s (CERVICAL 1-26 ity of PILLOW/COVE 00:00: [place] R) Mis 00 Medical Branch Cushion 2011-02 Yes [id number] Univer s (CERVICAL 1-26 ity of PILLOW/COVE 00:00: [place] R) Mis 00 Medical Branch Cushion 2011-02 Yes [id number] Univer s (CERVICAL 1-26 ity of PILLOW/COVE 00:00: [place] R) Mis 00 Medical Branch Cushion 2011-02 Yes [id number] Univer s (CERVICAL 1-26 ity of PILLOW/COVE 00:00: [place] R) Mis 00 Medical Branch Cushion 2011-02 Yes [id number] Univer s (CERVICAL 1-26 ity of PILLOW/COVE 00:00: [place] R) Mis 00 Medical Branch Cushion 2011-02 Yes [id number] Univer s (CERVICAL 1-26 ity of PILLOW/COVE 00:00: [place] R) Mis 00 Medical Branch Cushion 2011-02 Yes [id number] Univer s (CERVICAL 1-26 ity of PILLOW/COVE 00:00: [place] R) Mis Medical Branch Cushion 2011-02 Yes [id number] Univer s (CERVICAL 1-26 ity of PILLOW/COVE 00:00: [place] R) [facility] 00 Medical Branch Cushion 2011-02 Yes [id number] Univer s (CERVICAL 1-26 ity of PILLOW/COVE 00:00: [place] R) Mis 00 Medical Branch Cushion 2011-02 Yes [id number] Univer s (CERVICAL 1-26 ity of PILLOW/COVE 00:00: [place] R) Mis 00 Medical Branch Cushion 2011-02 Yes [id number] Univer s (CERVICAL 1-26 ity of PILLOW/COVE 00:00: [place] R) Mis 00 Medical Branch Cushion 2011-02 Yes [id number] Univer s (CERVICAL 1-26 ity of PILLOW/COVE 00:00: [place] R) Mis 00 Medical Branch Cushion 2011-02 Yes [id number] Univer s (CERVICAL 1-26 ity of PILLOW/COVE 00:00: [place] R) Mis 00 Medical Branch Cushion 2011-02 Yes [id number] Univer s (CERVICAL 1-26 ity of PILLOW/COVE 00:00: [place] R) Mis 00 Medical Branch Cushion 2011-02 Yes [id number] Univer s (CERVICAL 1-26 ity of PILLOW/COVE 00:00: [place] R) Mis 00 Medical Branch Cushion 2011-02 Yes [id number] Univer s (CERVICAL 1-26 ity of PILLOW/COVE 00:00: [place] R) [facility] 00 Medical Branch Cushion 2011-02 Yes [id number] Univer s (CERVICAL 1-26 ity of PILLOW/COVE 00:00: [place] R) [facility] 00 Medical Branch Cushion 2011-02 Yes [id number] Univer s (CERVICAL 1-26 ity of PILLOW/COVE 00:00: [place] R) [facility] 00 Medical Branch Cushion 2011-02 Yes [id number] Univer s (CERVICAL 1-26 ity of PILLOW/COVE 00:00: [place] R) [facility] 00 Medical Branch Cushion 2011-02 Yes [id number] Univer s (CERVICAL 1-26 ity of PILLOW/COVE 00:00: [place] R) [facility] 00 Medical Branch Cushion 2011-02 Yes [id number] Univer s (CERVICAL 1-26 ity of PILLOW/COVE 00:00: [place] R) [facility] 00 Medical Branch Cushion 2011-02 Yes [id number] Univer s (CERVICAL 1-26 ity of PILLOW/COVE 00:00: [place] R) [facility] 00 Medical Branch Cushion 2011-02 Yes [id number] Univer s (CERVICAL 1-26 ity of PILLOW/COVE 00:00: [place] R) [facility] 00 Medical Branch Cushion 2011-02 Yes [id number] Univer s (CERVICAL 1-26 ity of PILLOW/COVE 00:00: [place] R) [facility] 00 Medical Branch Immunizations Ordered Filled Immunization Date Status Comments [facility] e Immunization Name Name SARS-COV-2 COVID-19 2020-04-12 Completed Unive rsity of PFIZER VACCINE 00:00:00 [facility] SARS-COV-2 COVID-19 2020-04-12 Completed Unive rsity of PFIZER VACCINE 00:00:00 [facility] SARS-COV-2 COVID-19 2020-04-12 Completed Unive rsity of PFIZER VACCINE 00:00:00 [facility] SARS-COV-2 COVID-19 2020-04-12 Completed Unive rsity of PFIZER VACCINE 00:00:00 [facility] SARS-COV-2 COVID-19 2020-04-12 Completed Unive rsity of PFIZER VACCINE 00:00:00 [facility] SARS-COV-2 COVID-19 2020-04-12 Completed Unive rsity of PFIZER VACCINE 00:00:00 [facility] SARS-COV-2 COVID-19 2020-04-12 Completed Unive rsity of PFIZER VACCINE 00:00:00 [facility] SARS-COV-2 COVID-19 2020-04-12 Completed [facility] PFIZER VACCINE 00:00:00 [facility] SARS-COV-2 COVID-19 2020-04-12 Completed [facility] PFIZER VACCINE 00:00:00 [facility] SARS-COV-2 COVID-19 2020-04-12 Completed [facility] PFIZER VACCINE 00:00:00 [facility] SARS-COV-2 COVID-19 2020-04-12 Completed [facility] PFIZER VACCINE 00:00:00 [facility] SARS-COV-2 COVID-19 2020-04-12 Completed [facility] PFIZER VACCINE 00:00:00 [facility] SARS-COV-2 COVID-19 2020-04-12 Completed [facility] PFIZER VACCINE 00:00:00 [facility] SARS-COV-2 COVID-19 2020-04-12 Completed [facility] PFIZER VACCINE 00:00:00 [facility] SARS-COV-2 COVID-19 2020-04-12 Completed [facility] PFIZER VACCINE 00:00:00 [facility] SARS-COV-2 COVID-19 2020-03-15 Completed [facility] PFIZER VACCINE 00:00:00 [facility] SARS-COV-2 COVID-19 2020-03-15 Completed [facility] PFIZER VACCINE 00:00:00 [facility] SARS-COV-2 COVID-19 2020-03-15 Completed [facility] PFIZER VACCINE 00:00:00 [facility] SARS-COV-2 COVID-19 2020-03-15 Completed [facility] PFIZER VACCINE 00:00:00 [facility] SARS-COV-2 COVID-19 2020-03-15 Completed [facility] PFIZER VACCINE 00:00:00 [facility] SARS-COV-2 COVID-19 2020-03-15 Completed [facility] PFIZER VACCINE 00:00:00 [facility] SARS-COV-2 COVID-19 2020-03-15 Completed [facility] PFIZER VACCINE 00:00:00 [facility] SARS-COV-2 COVID-19 2020-03-15 Completed [facility] PFIZER VACCINE 00:00:00 [facility] SARS-COV-2 COVID-19 2020-03-15 Completed [facility] PFIZER VACCINE 00:00:00 [facility] SARS-COV-2 COVID-19 2020-03-15 Completed [facility] PFIZER VACCINE 00:00:00 [facility] SARS-COV-2 COVID-19 2020-03-15 Completed [facility] PFIZER VACCINE 00:00:00 [facility] SARS-COV-2 COVID-19 2020-03-15 Completed [facility] PFIZER VACCINE 00:00:00 [facility] SARS-COV-2 COVID-19 2020-03-15 Completed [facility] PFIZER VACCINE 00:00:00 [facility] SARS-COV-2 COVID-19 2020-03-15 Completed [facility] PFIZER VACCINE 00:00:00 [facility] SARS-COV-2 COVID-19 2020-03-15 Completed [facility] PFIZER VACCINE 00:00:00 [facility] Zoster Vaccine 2018-11-13 Completed [facility] Recombinant 00:00:00 [facility] Zoster Vaccine 2018-11-13 Completed [facility] Recombinant 00:00:00 [facility] Zoster Vaccine 2018-11-13 Completed [facility] Recombinant 00:00:00 [facility] Zoster Vaccine 2018-11-13 Completed [facility] Recombinant 00:00:00 [facility] Zoster Vaccine 2018-11-13 Completed [facility] Recombinant 00:00:00 [facility] Zoster Vaccine 2018-11-13 Completed [facility] Recombinant 00:00:00 [facility] Zoster Vaccine 2018-11-13 Completed [facility] Recombinant 00:00:00 [facility] Zoster Vaccine 2018-11-13 Completed [facility] Recombinant 00:00:00 [facility] Zoster Vaccine 2018-11-13 Completed [facility] Recombinant 00:00:00 [facility] Zoster Vaccine 2018-11-13 Completed [facility] Recombinant 00:00:00 [facility] Zoster Vaccine 2018-11-13 Completed [facility] Recombinant 00:00:00 [facility] Zoster Vaccine 2018-11-13 Completed [facility] Recombinant 00:00:00 [facility] Zoster Vaccine 2018-11-13 Completed [facility] Recombinant 00:00:00 [facility] Zoster Vaccine 2018-11-13 Completed [facility] Recombinant 00:00:00 [facility] Zoster Vaccine 2018-11-13 Completed [facility] Recombinant 00:00:00 [facility] Zoster Vaccine 2018-11-13 Completed [facility] Recombinant 00:00:00 [facility] Zoster Vaccine 2018-11-13 Completed [facility] Recombinant 00:00:00 [facility] Zoster Vaccine 2018-11-13 Completed [facility] Recombinant 00:00:00 [facility] Zoster Vaccine 2018-11-13 Completed [facility] Recombinant 00:00:00 [facility] Zoster Vaccine 2018-11-13 Completed [facility] Recombinant 00:00:00 [facility] Zoster Vaccine 2018-11-13 Completed [facility] Recombinant 00:00:00 [facility] Zoster Vaccine 2018-11-13 Completed [facility] Recombinant 00:00:00 [facility] Zoster Vaccine 2018-11-13 Completed [facility] Recombinant 00:00:00 [facility] Zoster Vaccine 2018-11-13 Completed [facility] Recombinant 00:00:00 [facility] Zoster Vaccine 2018-11-13 Completed [facility] Recombinant 00:00:00 [facility] Zoster Vaccine 2018-11-13 Completed [facility] Recombinant 00:00:00 [facility] Zoster Vaccine 2018-11-13 Completed [facility] Recombinant 00:00:00 [facility] Zoster Vaccine 2018-11-13 Completed [facility] Recombinant 00:00:00 [facility] Zoster Vaccine 2018-11-13 Completed [facility] Recombinant 00:00:00 [facility] Zoster Vaccine 2018-11-13 Completed [facility] Recombinant 00:00:00 [facility] Zoster Vaccine 2018-11-13 Completed [facility] Recombinant 00:00:00 [facility] Influenza Virus 2018-11-10 Completed [facility] Vaccine 00:00:00 [facility] Influenza Virus 2018-11-10 Completed [facility] Vaccine 00:00:00 [facility] Influenza Virus 2018-11-10 Completed [facility] Vaccine 00:00:00 [facility] Influenza Virus 2018-11-10 Completed [facility] Vaccine 00:00:00 [facility] Influenza Virus 2018-11-10 Completed [facility] Vaccine 00:00:00 [facility] Influenza Virus 2018-11-10 Completed [facility] Vaccine 00:00:00 [facility] Influenza Virus 2018-11-10 Completed [facility] Vaccine 00:00:00 [facility] Influenza Virus 2018-11-10 Completed [facility] Vaccine 00:00:00 [facility] Influenza Virus 2018-11-10 Completed [facility] Vaccine 00:00:00 [facility] Influenza Virus 2018-11-10 Completed [facility] Vaccine 00:00:00 [facility] Influenza Virus 2018-11-10 Completed [facility] Vaccine 00:00:00 [facility] Influenza Virus 2018-11-10 Completed [facility] Vaccine 00:00:00 [facility] Influenza Virus 2018-11-10 Completed [facility] Vaccine 00:00:00 [facility] Influenza Virus 2018-11-10 Completed [facility] Vaccine 00:00:00 [facility] Influenza Virus 2018-11-10 Completed [facility] Vaccine 00:00:00 [facility] Influenza Virus 2018-11-10 Completed [facility] Vaccine 00:00:00 [facility] Influenza Virus 2018-11-10 Completed [facility] Vaccine 00:00:00 [facility] Influenza Virus 2018-11-10 Completed [facility] Vaccine 00:00:00 [facility] Influenza Virus 2018-11-10 Completed [facility] Vaccine 00:00:00 [facility] Influenza Virus 2018-11-10 Completed [facility] Vaccine 00:00:00 [facility] Influenza Virus 2018-11-10 Completed [facility] Vaccine 00:00:00 [facility] Influenza Virus 2018-11-10 Completed [facility] Vaccine 00:00:00 [facility] Influenza Virus 2018-11-10 Completed [facility] Vaccine 00:00:00 [facility] Influenza Virus 2018-11-10 Completed [facility] Vaccine 00:00:00 [facility] Influenza Virus 2018-11-10 Completed [facility] Vaccine 00:00:00 [facility] Influenza Virus 2018-11-10 Completed [facility] Vaccine 00:00:00 [facility] Influenza Virus 2018-11-10 Completed [facility] Vaccine 00:00:00 [facility] Influenza Virus 2018-11-10 Completed [facility] Vaccine 00:00:00 [facility] Influenza Virus 2018-11-10 Completed [facility] Vaccine 00:00:00 [facility] Influenza Virus 2018-11-10 Completed [facility] Vaccine 00:00:00 [facility] Influenza Virus 2018-11-10 Completed [facility] Vaccine 00:00:00 [facility] Zoster Vaccine 2018-09-12 Completed [facility] Recombinant 00:00:00 [facility] Zoster Vaccine 2018-09-12 Completed [facility] Recombinant 00:00:00 [facility] Zoster Vaccine 2018-09-12 Completed [facility] Recombinant 00:00:00 [facility] Zoster Vaccine 2018-09-12 Completed [facility] Recombinant 00:00:00 [facility] Zoster Vaccine 2018-09-12 Completed [facility] Recombinant 00:00:00 [facility] Zoster Vaccine 2018-09-12 Completed [facility] Recombinant 00:00:00 [facility] Zoster Vaccine 2018-09-12 Completed [facility] Recombinant 00:00:00 [facility] Zoster Vaccine 2018-09-12 Completed [facility] Recombinant 00:00:00 [facility] Zoster Vaccine 2018-09-12 Completed [facility] Recombinant 00:00:00 [facility] Zoster Vaccine 2018-09-12 Completed [facility] Recombinant 00:00:00 [facility] Zoster Vaccine 2018-09-12 Completed [facility] Recombinant 00:00:00 [facility] Zoster Vaccine 2018-09-12 Completed [facility] Recombinant 00:00:00 [facility] Zoster Vaccine 2018-09-12 Completed [facility] Recombinant 00:00:00 [facility] Zoster Vaccine 2018-09-12 Completed [facility] Recombinant 00:00:00 [facility] Zoster Vaccine 2018-09-12 Completed [facility] Recombinant 00:00:00 [facility] Zoster Vaccine 2018-09-12 Completed [facility] Recombinant 00:00:00 [facility] Zoster Vaccine 2018-09-12 Completed [facility] Recombinant 00:00:00 [facility] Zoster Vaccine 2018-09-12 Completed [facility] Recombinant 00:00:00 [facility] Zoster Vaccine 2018-09-12 Completed [facility] Recombinant 00:00:00 [facility] Zoster Vaccine 2018-09-12 Completed [facility] Recombinant 00:00:00 [facility] Zoster Vaccine 2018-09-12 Completed [facility] Recombinant 00:00:00 [facility] Zoster Vaccine 2018-09-12 Completed [facility] Recombinant 00:00:00 [facility] Zoster Vaccine 2018-09-12 Completed [facility] Recombinant 00:00:00 [facility] Zoster Vaccine 2018-09-12 Completed [facility] Recombinant 00:00:00 [facility] Zoster Vaccine 2018-09-12 Completed [facility] Recombinant 00:00:00 [facility] Zoster Vaccine 2018-09-12 Completed [facility] Recombinant 00:00:00 [facility] Zoster Vaccine 2018-09-12 Completed [facility] Recombinant 00:00:00 [facility] Zoster Vaccine 2018-09-12 Completed [facility] Recombinant 00:00:00 [facility] Zoster Vaccine 2018-09-12 Completed [facility] Recombinant 00:00:00 [facility] Zoster Vaccine 2018-09-12 Completed [facility] Recombinant 00:00:00 [facility] Zoster Vaccine 2018-09-12 Completed [facility] Recombinant 00:00:00 [facility] Influenza Virus 2017-10-28 Completed [facility] Vaccine - Whole 00:00:00 [facility] Influenza Virus 2017-10-28 Completed [facility] Vaccine - Whole 00:00:00 [facility] Influenza Virus 2017-10-28 Completed [facility] Vaccine - Whole 00:00:00 [facility] Influenza Virus 2017-10-28 Completed [facility] Vaccine - Whole 00:00:00 [facility] Influenza Virus 2017-10-28 Completed [facility] Vaccine - Whole 00:00:00 [facility] Influenza Virus 2017-10-28 Completed [facility] Vaccine - Whole 00:00:00 [facility] Influenza Virus 2017-10-28 Completed [facility] Vaccine - Whole 00:00:00 [facility] Influenza Virus 2017-10-28 Completed [facility] Vaccine - Whole 00:00:00 [facility] Influenza Virus 2017-10-28 Completed [facility] Vaccine - Whole 00:00:00 [facility] Influenza Virus 2017-10-28 Completed [facility] Vaccine - Whole 00:00:00 [facility] Influenza Virus 2017-10-28 Completed [facility] Vaccine - Whole 00:00:00 [facility] Influenza Virus 2017-10-28 Completed [facility] Vaccine - Whole 00:00:00 [facility] Influenza Virus 2017-10-28 Completed [facility] Vaccine - Whole 00:00:00 [facility] Influenza Virus 2017-10-28 Completed [facility] Vaccine - Whole 00:00:00 [facility] Influenza Virus 2017-10-28 Completed [facility] Vaccine - Whole 00:00:00 [facility] Influenza Virus 2017-10-28 Completed [facility] Vaccine - Whole 00:00:00 [facility] Influenza Virus 2017-10-28 Completed [facility] Vaccine - Whole 00:00:00 [facility] Influenza Virus 2017-10-28 Completed [facility] Vaccine - Whole 00:00:00 [facility] Influenza Virus 2017-10-28 Completed [facility] Vaccine - Whole 00:00:00 [facility] Influenza Virus 2017-10-28 Completed [facility] Vaccine - Whole 00:00:00 [facility] Influenza Virus 2017-10-28 Completed [facility] Vaccine - Whole 00:00:00 [facility] Influenza Virus 2017-10-28 Completed [facility] Vaccine - Whole 00:00:00 [facility] Influenza Virus 2017-10-28 Completed [facility] Vaccine - Whole 00:00:00 [facility] Influenza Virus 2017-10-28 Completed [facility] Vaccine - Whole 00:00:00 [facility] Influenza Virus 2017-10-28 Completed [facility] Vaccine - Whole 00:00:00 [facility] Influenza Virus 2017-10-28 Completed [facility] Vaccine - Whole 00:00:00 [facility] Influenza Virus 2017-10-28 Completed [facility] Vaccine - Whole 00:00:00 [facility] Influenza Virus 2017-10-28 Completed [facility] Vaccine - Whole 00:00:00 [facility] Influenza Virus 2017-10-28 Completed [facility] Vaccine - Whole 00:00:00 [facility] Influenza Virus 2017-10-28 Completed [facility] Vaccine - Whole 00:00:00 [facility] Influenza Virus 2017-10-28 Completed [facility] Vaccine - Whole 00:00:00 [facility] Influenza Virus 2017-10-28 Completed [facility] Vaccine - Whole 00:00:00 [facility] Influenza Virus 2017-10-28 Completed [facility] Vaccine - Whole 00:00:00 [facility] Influenza Virus 2017-10-28 Completed [facility] Vaccine - Whole 00:00:00 [facility] Influenza Virus 2017-10-28 Completed [facility] Vaccine - Whole 00:00:00 [facility] Influenza Virus 2017-10-28 Completed [facility] Vaccine - Whole 00:00:00 [facility] Influenza High Dose 2015-11-21 Completed [facility] of 00:00:00 [facility] Influenza High Dose 2015-11-21 Completed [facility] of 00:00:00 [facility] Influenza High Dose 2015-11-21 Completed [facility] of 00:00:00 [facility] Influenza High Dose 2015-11-21 Completed [facility] of 00:00:00 [facility] Influenza High Dose 2015-11-21 Completed [facility] of 00:00:00 [facility] Influenza High Dose 2015-11-21 Completed [facility] of 00:00:00 [facility] Influenza High Dose 2015-11-21 Completed [facility] of 00:00:00 [facility] Influenza High Dose 2015-11-21 Completed [facility] of 00:00:00 [facility] Influenza High Dose 2015-11-21 Completed [facility] of 00:00:00 [facility] Influenza High Dose 2015-11-21 Completed [facility] of 00:00:00 [facility] Influenza High Dose 2015-11-21 Completed [facility] of 00:00:00 [facility] Influenza High Dose 2015-11-21 Completed [facility] of 00:00:00 [facility] Influenza High Dose 2015-11-21 Completed [facility] of 00:00:00 [facility] Influenza High Dose 2015-11-21 Completed [facility] of 00:00:00 [facility] Influenza High Dose 2015-11-21 Completed [facility] of 00:00:00 [facility] Influenza High Dose 2015-11-21 Completed [facility] of 00:00:00 [facility] Influenza High Dose 2015-11-21 Completed [facility] of 00:00:00 [facility] Influenza High Dose 2015-11-21 Completed [facility] of 00:00:00 [facility] Influenza High Dose 2015-11-21 Completed [facility] of 00:00:00 [facility] Influenza High Dose 2015-11-21 Completed [facility] of 00:00:00 [facility] Influenza High Dose 2015-11-21 Completed [facility] of 00:00:00 [facility] Influenza High Dose 2015-11-21 Completed [facility] of 00:00:00 [facility] Influenza High Dose 2015-11-21 Completed [facility] of 00:00:00 [facility] Influenza High Dose 2015-11-21 Completed [facility] of 00:00:00 [facility] Influenza High Dose 2015-11-21 Completed [facility] of 00:00:00 [facility] Influenza High Dose 2015-11-21 Completed [facility] of 00:00:00 [facility] Influenza High Dose 2015-11-21 Completed [facility] of 00:00:00 [facility] Influenza High Dose 2015-11-21 Completed [facility] of 00:00:00 [facility] Influenza High Dose 2015-11-21 Completed [facility] of 00:00:00 [facility] Influenza High Dose 2015-11-21 Completed [facility] of 00:00:00 [facility] Influenza High Dose 2015-11-21 Completed [facility] of 00:00:00 [facility] Influenza High Dose 2015-11-21 Completed [facility] of 00:00:00 [facility] Influenza High Dose 2015-11-21 Completed [facility] of 00:00:00 [facility] Influenza High Dose 2015-11-21 Completed [facility] of 00:00:00 [facility] Influenza High Dose 2015-11-21 Completed [facility] 00:00:00 [facility] Influenza High Dose 2015-11-21 Completed [facility] 00:00:00 [facility] Pneumococcal 2014-05-31 Completed [facility] Polysaccharide, 00:00:00 [place] [facility] PPSV[facility] (PNEUMOVAX) [facility] Pneumococcal 2014-05-31 Completed [facility] Polysaccharide, 00:00:00 [place] [facility] PPSV23 (PNEUMOVAX) [facility] Pneumococcal 2014-05-31 Completed [facility] Polysaccharide, 00:00:00 [place] [facility] PPSV23 (PNEUMOVAX) [facility] Pneumococcal 2014-05-31 Completed [facility] Polysaccharide, 00:00:00 [place] [facility] PPSV23 (PNEUMOVAX) [facility] Pneumococcal 2014-05-31 Completed [facility] f Polysaccharide, 00:00:00 [place] [facility] PPSV23 (PNEUMOVAX) [facility] Pneumococcal 2014-05-31 Completed [facility] f Polysaccharide, 00:00:00 [place] [facility] PPSV23 (PNEUMOVAX) [facility] Pneumococcal 2014-05-31 Completed [facility] f Polysaccharide, 00:00:00 [place] [facility] PPSV23 (PNEUMOVAX) [facility] Pneumococcal 2014-05-31 Completed [facility] f Polysaccharide, 00:00:00 [place] [facility] PPSV23 (PNEUMOVAX) [facility] Pneumococcal 2014-05-31 Completed [facility] f Polysaccharide, 00:00:00 [place] [facility] PPSV23 (PNEUMOVAX) [facility] Pneumococcal 2014-05-31 Completed [facility] f Polysaccharide, 00:00:00 [place] [facility] PPSV23 (PNEUMOVAX) [facility] Pneumococcal 2014-05-31 Completed [facility] f Polysaccharide, 00:00:00 [place] [facility] PPSV23 (PNEUMOVAX) [facility] Pneumococcal 2014-05-31 Completed [facility] f Polysaccharide, 00:00:00 [place] [facility] PPSV23 (PNEUMOVAX) [facility] Pneumococcal 2014-05-31 Completed [facility] f Polysaccharide, 00:00:00 [place] [facility] PPSV23 (PNEUMOVAX) [facility] Pneumococcal 2014-05-31 Completed [facility] f Polysaccharide, 00:00:00 [place] [facility] PPSV23 (PNEUMOVAX) [facility] Pneumococcal 2014-05-31 Completed [facility] f Polysaccharide, 00:00:00 [place] [facility] PPSV23 (PNEUMOVAX) [facility] Pneumococcal 2014-05-31 Completed [facility] f Polysaccharide, 00:00:00 [place] [facility] PPSV23 (PNEUMOVAX) [facility] Pneumococcal 2014-05-31 Completed [facility] Polysaccharide, 00:00:00 [place] [facility] PPSV23 (PNEUMOVAX) [facility] Pneumococcal 2014-05-31 Completed [facility] f Polysaccharide, 00:00:00 [place] [facility] PPSV23 (PNEUMOVAX) [facility] Pneumococcal 2014-05-31 Completed [facility] f Polysaccharide, 00:00:00 [place] [facility] PPSV23 (PNEUMOVAX) [facility] Pneumococcal 2014-05-31 Completed [facility] Polysaccharide, 00:00:00 [place] [facility] PPSV23 (PNEUMOVAX) [facility] Pneumococcal 2014-05-31 Completed [facility] f Polysaccharide, 00:00:00 [place] [facility] PPSV23 (PNEUMOVAX) [facility] Pneumococcal 2014-05-31 Completed [facility] Polysaccharide, 00:00:00 [place] [facility] PPSV23 (PNEUMOVAX) [facility] Pneumococcal 2014-05-31 Completed [facility] f Polysaccharide, 00:00:00 [place] [facility] PPSV23 (PNEUMOVAX) [facility] Pneumococcal 2014-05-31 Completed [facility] f Polysaccharide, 00:00:00 [place] [facility] PPSV23 (PNEUMOVAX) [facility] Pneumococcal 2014-05-31 Completed [facility] f Polysaccharide, 00:00:00 [place] [facility] PPSV23 (PNEUMOVAX) [facility] Pneumococcal 2014-05-31 Completed [facility] f Polysaccharide, 00:00:00 [place] [facility] PPSV23 (PNEUMOVAX) [facility] Pneumococcal 2014-05-31 Completed [facility] f Polysaccharide, 00:00:00 [place] [facility] PPSV23 (PNEUMOVAX) [facility] Pneumococcal 2014-05-31 Completed [facility] Polysaccharide, 00:00:00 [place] [facility] PPSV23 (PNEUMOVAX) [facility] Pneumococcal 2014-05-31 Completed [facility] f Polysaccharide, 00:00:00 [place] [facility] PPSV23 (PNEUMOVAX) [facility] Pneumococcal 2014-05-31 Completed [facility] Polysaccharide, 00:00:00 [place] [facility] PPSV23 (PNEUMOVAX) [facility] Pneumococcal 2014-05-31 Completed [facility] Polysaccharide, 00:00:00 [place] [facility] PPSV23 (PNEUMOVAX) Branch Pneumococcal 2014-05-31 Completed [facility] Polysaccharide, 00:00:00 [place] [facility] PPSV23 (PNEUMOVAX) Branch Pneumococcal 2014-05-31 Completed [facility] o f Polysaccharide, 00:00:00 [place] [facility] PPSV23 (PNEUMOVAX) Branch Pneumococcal 2014-05-31 Completed [facility] o f Polysaccharide, 00:00:00 [place] [facility] PPSV23 (PNEUMOVAX) Branch Pneumococcal 2014-05-31 Completed [facility] o f Polysaccharide, 00:00:00 [place] [facility] PPSV23 (PNEUMOVAX) Branch Pneumococcal 2014-05-31 Completed [facility] o f Polysaccharide, 00:00:00 [place] [facility] PPSV23 (PNEUMOVAX) Branch Influenza High Dose 2013-11-09 Completed Unive rsity of 00:00:00 [facility] Influenza High Dose 2013-11-09 Completed Unive rsity of 00:00:00 [facility] Influenza High Dose 2013-11-09 Completed Unive rsity of 00:00:00 [facility] Influenza High Dose 2013-11-09 Completed Unive rsity of 00:00:00 [facility] Influenza High Dose 2013-11-09 Completed Unive rsity of 00:00:00 [facility] Influenza High Dose 2013-11-09 Completed Unive rsity of 00:00:00 [facility] Influenza High Dose 2013-11-09 Completed Unive rsity of 00:00:00 [facility] Influenza High Dose 2013-11-09 Completed [facility]ive rsity of 00:00:00 [facility] Influenza High Dose 2013-11-09 Completed [facility]ive rsity of 00:00:00 [facility] Influenza High Dose 2013-11-09 Completed Unive rsity of 00:00:00 [facility] Influenza High Dose 2013-11-09 Completed [facility]ive rsity of 00:00:00 [facility] Influenza High Dose 2013-11-09 Completed [facility]ive rsity of 00:00:00 [facility] Influenza High Dose 2013-11-09 Completed [facility]ive rsity of 00:00:00 [facility] Influenza High Dose 2013-11-09 Completed Unive rsity of 00:00:00 [facility] Influenza High Dose 2013-11-09 Completed Unive rsity of 00:00:00 [facility] Influenza High Dose 2013-11-09 Completed [facility]ive rsity of 00:00:00 [facility] Influenza High Dose 2013-11-09 Completed Unive rsity of 00:00:00 [facility] Influenza High Dose 2013-11-09 Completed Unive rsity of 00:00:00 [facility] Influenza High Dose 2013-11-09 Completed Unive rsity of 00:00:00 [facility] Influenza High Dose 2013-11-09 Completed [facility]ive rsity of 00:00:00 [facility] Influenza High Dose 2013-11-09 Completed Unive rsity of 00:00:00 [facility] Influenza High Dose 2013-11-09 Completed Unive rsity of 00:00:00 [facility] Influenza High Dose 2013-11-09 Completed Unive rsity of 00:00:00 [facility] Influenza High Dose 2013-11-09 Completed Unive rsity of 00:00:00 [facility] Influenza High Dose 2013-11-09 Completed Unive rsity of 00:00:00 [facility] Influenza High Dose 2013-11-09 Completed [facility]ive rsity of 00:00:00 [facility] Influenza High Dose 2013-11-09 Completed Unive rsity of 00:00:00 [facility] Influenza High Dose 2013-11-09 Completed Unive rsity of 00:00:00 [facility] Influenza High Dose 2013-11-09 Completed Unive rsity of 00:00:00 [facility] Influenza High Dose 2013-11-09 Completed Unive rsity of 00:00:00 [facility] Influenza High Dose 2013-11-09 Completed Unive rsity of 00:00:00 [facility] Influenza High Dose 2013-11-09 Completed Unive rsity of 00:00:00 [facility] Influenza High Dose 2013-11-09 Completed Unive rsity of 00:00:00 [facility] Influenza High Dose 2013-11-09 Completed [facility]ive rsity of 00:00:00 [facility] Influenza High Dose 2013-11-09 Completed [facility]ive rsity of 00:00:00 [facility] Influenza High Dose 2013-11-09 Completed Unive rsity of 00:00:00 [facility] Pneumococcal 7 2012-11-29 Completed University of Conjugate, PCV7 00:00:00 [place] [facility] (Prevnar7) Branch Pneumococcal 7 2012-11-29 Completed [facility] of Conjugate, PCV7 00:00:00 [place] [facility] (Prevnar7) [facility] Pneumococcal 7 2012-11-29 Completed [facility] of Conjugate, PCV7 00:00:00 [place] [facility] (Prevnar7) [facility] Pneumococcal 7 2012-11-29 Completed [facility] of Conjugate, PCV7 00:00:00 [place] [facility] (Prevnar7) Branch Pneumococcal 7 2012-11-29 Completed [facility] of Conjugate, PCV7 00:00:00 [place] [facility] (Prevnar7) [facility] Pneumococcal 7 2012-11-29 Completed [facility] of Conjugate, PCV7 00:00:00 [place] [facility] (Prevnar7) [facility] Pneumococcal 7 2012-11-29 Completed [facility] of Conjugate, PCV7 00:00:00 [place] [facility] (Prevnar7) [facility] Pneumococcal 7 2012-11-29 Completed [facility] of Conjugate, PCV7 00:00:00 [place] [facility] (Prevnar7) [facility] Pneumococcal 7 2012-11-29 Completed [facility] of Conjugate, PCV7 00:00:00 [place] [facility] (Prevnar7) [facility] Pneumococcal 7 2012-11-29 Completed [facility] of Conjugate, PCV7 00:00:00 [place] [facility] (Prevnar7) [facility] Pneumococcal 7 2012-11-29 Completed [facility] of Conjugate, PCV7 00:00:00 [place] [facility] (Prevnar7) [facility] Pneumococcal 7 2012-11-29 Completed [facility] of Conjugate, PCV7 00:00:00 [place] [facility] (Prevnar7) [facility] Pneumococcal 7 2012-11-29 Completed [facility] of Conjugate, PCV7 00:00:00 [place] [facility] (Prevnar7) [facility] Pneumococcal 7 2012-11-29 Completed [facility] of Conjugate, PCV7 00:00:00 [place] [facility] (Prevnar7) Branch Pneumococcal 7 2012-11-29 Completed [facility] of Conjugate, PCV7 00:00:00 [place] [facility] (Prevnar7) Branch Pneumococcal 7 2012-11-29 Completed [facility] of Conjugate, PCV7 00:00:00 [place] [facility] (Prevnar7) [facility] Pneumococcal 7 2012-11-29 Completed [facility] of Conjugate, PCV7 00:00:00 [place] [facility] (Prevnar7) [facility] Pneumococcal 7 2012-11-29 Completed [facility] of Conjugate, PCV7 00:00:00 [place] [facility] (Prevnar7) [facility] Pneumococcal 7 2012-11-29 Completed [facility] of Conjugate, PCV7 00:00:00 [place] [facility] (Prevnar7) [facility] Pneumococcal 7 2012-11-29 Completed [facility] of Conjugate, PCV7 00:00:00 [place] [facility] (Prevnar7) [facility] Pneumococcal 7 2012-11-29 Completed [facility] of Conjugate, PCV7 00:00:00 [place] [facility] (Prevnar7) [facility] Pneumococcal 7 2012-11-29 Completed [facility] of Conjugate, PCV7 00:00:00 [place] [facility] (Prevnar7) [facility] Pneumococcal 7 2012-11-29 Completed [facility] of Conjugate, PCV7 00:00:00 [place] [facility] (Prevnar7) [facility] Pneumococcal 7 2012-11-29 Completed [facility] of Conjugate, PCV7 00:00:00 [place] [facility] (Prevnar7) [facility] Pneumococcal 7 2012-11-29 Completed [facility] of Conjugate, PCV7 00:00:00 [place] [facility] (Prevnar7) [facility] Pneumococcal 7 2012-11-29 Completed [facility] of Conjugate, PCV7 00:00:00 [place] [facility] (Prevnar7) [facility] Pneumococcal 7 2012-11-29 Completed [facility] of Conjugate, PCV7 00:00:00 [place] [facility] (Prevnar7) [facility] Pneumococcal 7 2012-11-29 Completed [facility] of Conjugate, PCV7 00:00:00 [place] [facility] (Prevnar7) [facility] Pneumococcal 7 2012-11-29 Completed [facility] of Conjugate, PCV7 00:00:00 [place] [facility] (Prevnar7) [facility] Pneumococcal 7 2012-11-29 Completed [facility] of Conjugate, PCV7 00:00:00 [place] [facility] (Prevnar7) [facility] Pneumococcal 7 2012-11-29 Completed [facility] of Conjugate, PCV7 00:00:00 [place] [facility] (Prevnar7) [facility] Pneumococcal 7 2012-11-29 Completed [facility] of Conjugate, PCV7 00:00:00 [place] [facility] (Prevnar7) [facility] Pneumococcal 7 2012-11-29 Completed [facility] of Conjugate, PCV7 00:00:00 [place] [facility] (Prevnar7) [facility] Pneumococcal 7 2012-11-29 Completed [facility] of Conjugate, PCV7 00:00:00 [place] [facility] (Prevnar7) Branch Pneumococcal 7 2012-11-29 Completed [facility] of Conjugate, PCV7 00:00:00 [place] [facility] (Prevnar7) [facility] Pneumococcal 7 2012-11-29 Completed [facility] of Conjugate, PCV7 00:00:00 [place] [facility] (Prevnar7) [facility] TD 2012-01-10 Completed [facility] of 00:00:00 [facility] 2012-01-10 Completed University of 00:00:00 [facility] Zoster(Zostavax)( 2012-01-10 Completed Unive rsity of ingles) 00:00:00 [facility] 2012-01-10 Completed University of 00:00:00 [facility] Zoster(Zostavax)( 2012-01-10 Completed Unive rsity of ingles) 00:00:00 [facility] Zoster(Zostavax)( 2012-01-10 Completed Unive rsity of ingles) 00:00:00 [facility] 2012-01-10 Completed University of 00:00:00 [facility] Zoster(Zostavax)( 2012-01-10 Completed Unive rsity of ingles) 00:00:00 [facility] 2012-01-10 Completed University of 00:00:00 [facility] Zoster(Zostavax)( 2012-01-10 Completed Unive rsity of ingles) 00:00:00 [facility] 2012-01-10 Completed University of 00:00:00 [facility] Zoster(Zostavax)( 2012-01-10 Completed Unive rsity of ingles) 00:00:00 [facility] 2012-01-10 Completed University of 00:00:00 [facility] Zoster(Zostavax)( 2012-01-10 Completed Unive rsity of ingles) 00:00:00 [facility] 2012-01-10 Completed University of 00:00:00 [facility] Zoster(Zostavax)( 2012-01-10 Completed Unive rsity of ingles) 00:00:00 [facility] 2012-01-10 Completed University of 00:00:00 [facility] Zoster(Zostavax)( 2012-01-10 Completed Unive rsity of ingles) 00:00:00 [facility] 2012-01-10 Completed University of 00:00:00 [facility] Zoster(Zostavax)( 2012-01-10 Completed Unive rsity of ingles) 00:00:00 [facility] 2012-01-10 Completed University of 00:00:00 [facility] Zoster(Zostavax)( 2012-01-10 Completed Unive rsity of ingles) 00:00:00 [facility] 2012-01-10 Completed University of 00:00:00 [facility] Zoster(Zostavax)( 2012-01-10 Completed Unive rsity of ingles) 00:00:00 [facility] 2012-01-10 Completed University of 00:00:00 [facility] 2012-01-10 Completed University of 00:00:00 [facility] Zoster(Zostavax)( 2012-01-10 Completed Unive rsity of ingles) 00:00:00 [facility] Zoster(Zostavax)( 2012-01-10 Completed Unive rsity of ingles) 00:00:00 [facility] 2012-01-10 Completed University of 00:00:00 [facility] Zoster(Zostavax)( 2012-01-10 Completed Unive rsity of ingles) 00:00:00 [facility] 2012-01-10 Completed University of 00:00:00 [facility] Zoster(Zostavax)( 2012-01-10 Completed Unive rsity of ingles) 00:00:00 [facility] 2012-01-10 Completed University of 00:00:00 [facility] Zoster(Zostavax)( 2012-01-10 Completed Unive rsity of ingles) 00:00:00 [facility] 2012-01-10 Completed University of 00:00:00 [facility] Zoster(Zostavax)( 2012-01-10 Completed Unive rsity of ingles) 00:00:00 [facility] 2012-01-10 Completed University of 00:00:00 [facility] Zoster(Zostavax)( 2012-01-10 Completed Unive rsity of ingles) 00:00:00 [facility] 2012-01-10 Completed University of 00:00:00 [facility] Zoster(Zostavax)( 2012-01-10 Completed Unive rsity of ingles) 00:00:00 [facility] 2012-01-10 Completed University of 00:00:00 [facility] Zoster(Zostavax)( 2012-01-10 Completed Unive rsity of ingles) 00:00:00 [facility] 2012-01-10 Completed University of 00:00:00 [facility] Zoster(Zostavax)( 2012-01-10 Completed Unive rsity of ingles) 00:00:00 [facility] 2012-01-10 Completed University of 00:00:00 [facility] Zoster(Zostavax)( 2012-01-10 Completed Unive rsity of ingles) 00:00:00 [facility] 2012-01-10 Completed University of 00:00:00 [facility] Zoster(Zostavax)( 2012-01-10 Completed Unive rsity of ingles) 00:00:00 [facility] 2012-01-10 Completed University of 00:00:00 [facility] 2012-01-10 Completed University of 00:00:00 [facility] Zoster(Zostavax)( 2012-01-10 Completed Unive rsity of ingles) 00:00:00 [facility] Zoster(Zostavax)( 2012-01-10 Completed Unive rsity of ingles) 00:00:00 [facility] 2012-01-10 Completed University of 00:00:00 [facility] Zoster(Zostavax)( 2012-01-10 Completed Unive rsity of ingles) 00:00:00 [facility] 2012-01-10 Completed University of 00:00:00 [facility] Zoster(Zostavax)( 2012-01-10 Completed Unive rsity of ingles) 00:00:00 [facility] 2012-01-10 Completed University of 00:00:00 [facility] Zoster(Zostavax)( 2012-01-10 Completed [facility] ingles) 00:00:00 [facility] Com[facility] of 00:00:00 [facility] Zoster(Zostavax)( 2012-01-10 Completed Unive rsity of ingles) 00:00:00 [facility] 2012-01-10 Completed University of 00:00:00 [facility] Zoster(Zostavax)( 2012-01-10 Completed Unive rsity of ingles) 00:00:00 [facility] 2012-01-10 Completed University of 00:00:00 [facility] Zoster(Zostavax)( 2012-01-10 Completed Unive rsity of ingles) 00:00:00 [facility] 2012-01-10 Completed University of 00:00:00 [facility] Zoster(Zostavax)( 2012-01-10 Completed Unive rsity of ingles) 00:00:00 [facility] 2012-01-10 Completed University of 00:00:00 [facility] Zoster(Zostavax)( 2012-01-10 Completed Unive rsity of ingles) 00:00:00 [facility] 2012-01-10 Completed University of 00:00:00 [facility] Zoster(Zostavax)( 2012-01-10 Completed Unive rsity of ingles) 00:00:00 [facility] 2012-01-10 Completed University of 00:00:00 [facility] Zoster(Zostavax)( 2012-01-10 Completed Unive rsity of ingles) 00:00:00 [facility] Influenza Virus 2011-12-16 Completed Universit y of Vaccine 00:00:00 [facility] Influenza Virus 2011-12-16 Completed Universit y of Vaccine 00:00:00 [facility] Influenza Virus 2011-12-16 Completed Universit y of Vaccine 00:00:00 [facility] Influenza Virus 2011-12-16 Completed Universit y of Vaccine 00:00:00 [facility] Influenza Virus 2011-12-16 Completed Universit y of Vaccine 00:00:00 [facility] Influenza Virus 2011-12-16 Completed Universit y of Vaccine 00:00:00 [facility] Influenza Virus 2011-12-16 Completed Universit y of Vaccine 00:00:00 [facility] Influenza Virus 2011-12-16 Completed Universit y of Vaccine 00:00:00 [facility] Influenza Virus 2011-12-16 Completed Universit y of Vaccine 00:00:00 [facility] Influenza Virus 2011-12-16 Completed Universit y of Vaccine 00:00:00 [facility] Influenza Virus 2011-12-16 Completed Universit y of Vaccine 00:00:00 [facility] Influenza Virus 2011-12-16 Completed Universit y of Vaccine 00:00:00 [facility] Influenza Virus 2011-12-16 Completed Universit y of Vaccine 00:00:00 [facility] Influenza Virus 2011-12-16 Completed Universit y of Vaccine 00:00:00 [facility] Influenza Virus 2011-12-16 Completed Universit y of Vaccine 00:00:00 [facility] Influenza Virus 2011-12-16 Completed [facility]it y of Vaccine 00:00:00 [facility] Influenza Virus 2011-12-16 Completed Universit y of Vaccine 00:00:00 [facility] Influenza Virus 2011-12-16 Completed [facility]it y of Vaccine 00:00:00 [facility] Influenza Virus 2011-12-16 Completed [facility]it y of Vaccine 00:00:00 [facility] Influenza Virus 2011-12-16 Completed Universit y of Vaccine 00:00:00 [facility] Influenza Virus 2011-12-16 Completed Universit y of Vaccine 00:00:00 [facility] Influenza Virus 2011-12-16 Completed Universit y of Vaccine 00:00:00 [facility] Influenza Virus 2011-12-16 Completed [facility]it y of Vaccine 00:00:00 [facility] Influenza Virus 2011-12-16 Completed [facility]it y of Vaccine 00:00:00 [facility] Influenza Virus 2011-12-16 Completed Universit y of Vaccine 00:00:00 [facility] Influenza Virus 2011-12-16 Completed Universit y of Vaccine 00:00:00 [facility] Influenza Virus 2011-12-16 Completed [facility]it y of Vaccine 00:00:00 [facility] Influenza Virus 2011-12-16 Completed [facility]it y of Vaccine 00:00:00 [facility] Influenza Virus 2011-12-16 Completed [facility]it y of Vaccine 00:00:00 [facility] Influenza Virus 2011-12-16 Completed [facility]it y of Vaccine 00:00:00 [facility] Influenza Virus 2011-12-16 Completed [facility]it y of Vaccine 00:00:00 [facility] Influenza Virus 2011-12-16 Completed [facility]it y of Vaccine 00:00:00 [facility] Influenza Virus 2011-12-16 Completed [facility]it y of Vaccine 00:00:00 [facility] Influenza Virus 2011-12-16 Completed [facility]it y of Vaccine 00:00:00 [facility] Influenza Virus 2011-12-16 Completed [facility]it y of Vaccine 00:00:00 [facility] Influenza Virus 2011-12-16 Completed [facility]it y of Vaccine 00:00:00 [facility] Influenza Virus 2008-11-18 Completed [facility]it y of Vaccine 00:00:00 [facility] Influenza Virus 2008-11-18 Completed [facility]it y of Vaccine 00:00:00 [facility] Influenza Virus 2008-11-18 Completed [facility]it y of Vaccine 00:00:00 [facility] Influenza Virus 2008-11-18 Completed [facility]it y of Vaccine 00:00:00 [facility] Influenza Virus 2008-11-18 Completed [facility]it y of Vaccine 00:00:00 [facility] Influenza Virus 2008-11-18 Completed [facility]it y of Vaccine 00:00:00 [facility] Influenza Virus 2008-11-18 Completed [facility]it y of Vaccine 00:00:00 [facility] Influenza Virus 2008-11-18 Completed [facility]it y of Vaccine 00:00:00 [facility] Influenza Virus 2008-11-18 Completed [facility]it y of Vaccine 00:00:00 [facility] Influenza Virus 2008-11-18 Completed [facility]it y of Vaccine 00:00:00 [facility] Influenza Virus 2008-11-18 Completed [facility]it y of Vaccine 00:00:00 [facility] Influenza Virus 2008-11-18 Completed [facility]it y of Vaccine 00:00:00 [facility] Influenza Virus 2008-11-18 Completed [facility]it y of Vaccine 00:00:00 [facility] Influenza Virus 2008-11-18 Completed [facility]it y of Vaccine 00:00:00 [facility] Influenza Virus 2008-11-18 Completed [facility]it y of Vaccine 00:00:00 [facility] Influenza Virus 2008-11-18 Completed [facility]it y of Vaccine 00:00:00 [facility] Influenza Virus 2008-11-18 Completed [facility]it y of Vaccine 00:00:00 [facility] Influenza Virus 2008-11-18 Completed [facility]it y of Vaccine 00:00:00 [facility] Influenza Virus 2008-11-18 Completed [facility]it y of Vaccine 00:00:00 [facility] Influenza Virus 2008-11-18 Completed [facility]it y of Vaccine 00:00:00 [facility] Influenza Virus 2008-11-18 Completed [facility]it y of Vaccine 00:00:00 [facility] Influenza Virus 2008-11-18 Completed [facility]it y of Vaccine 00:00:00 [facility] Influenza Virus 2008-11-18 Completed [facility]it y of Vaccine 00:00:00 [facility] Influenza Virus 2008-11-18 Completed [facility]it y of Vaccine 00:00:00 [facility] Influenza Virus 2008-11-18 Completed [facility]it y of Vaccine 00:00:00 [facility] Influenza Virus 2008-11-18 Completed [facility]it y of Vaccine 00:00:00 [facility] Influenza Virus 2008-11-18 Completed [facility]it y of Vaccine 00:00:00 [facility] Influenza Virus 2008-11-18 Completed Universit y of Vaccine 00:00:00 [facility] Influenza Virus 2008-11-18 Completed Universit y of Vaccine 00:00:00 [facility] Influenza Virus 2008-11-18 Completed [facility]it y of Vaccine 00:00:00 [facility] Influenza Virus 2008-11-18 Completed [facility]it y of Vaccine 00:00:00 [facility] Influenza Virus 2008-11-18 Completed [facility]it y of Vaccine 00:00:00 [facility] Influenza Virus 2008-11-18 Completed Universit y of Vaccine 00:00:00 [facility] Influenza Virus 2008-11-18 Completed Universit y of Vaccine 00:00:00 [facility] Influenza Virus 2008-11-18 Completed Universit y of Vaccine 00:00:00 [facility] Influenza Virus 2008-11-18 Completed Universit y of Vaccine 00:00:00 [facility] Pneumococcal 7 2007-03-13 Completed University of Conjugate, PCV7 00:00:00 [place] [facility] (Prevnar7) Branch Pneumococcal 7 2007-03-13 Completed University of Conjugate, PCV7 00:00:00 [place] [facility] (Prevnar7) [facility] Pneumococcal 7 2007-03-13 Completed [facility] of Conjugate, PCV7 00:00:00 [place] [facility] (Prevnar7) Branch Pneumococcal 7 2007-03-13 Completed [facility] of Conjugate, PCV7 00:00:00 [place] [facility] (Prevnar7) [facility] Pneumococcal 7 2007-03-13 Completed [facility] of Conjugate, PCV7 00:00:00 [place] [facility] (Prevnar7) [facility] Pneumococcal 7 2007-03-13 Completed [facility] of Conjugate, PCV7 00:00:00 [place] [facility] (Prevnar7) Branch Pneumococcal 7 2007-03-13 Completed [facility] of Conjugate, PCV7 00:00:00 [place] [facility] (Prevnar7) Branch Pneumococcal 7 2007-03-13 Completed [facility] of Conjugate, PCV7 00:00:00 [place] [facility] (Prevnar7) Branch Pneumococcal 7 2007-03-13 Completed [facility] of Conjugate, PCV7 00:00:00 [place] [facility] (Prevnar7) Branch Pneumococcal 7 2007-03-13 Completed [facility] of Conjugate, PCV7 00:00:00 [place] [facility] (Prevnar7) Branch Pneumococcal 7 2007-03-13 Completed [facility] of Conjugate, PCV7 00:00:00 [place] [facility] (Prevnar7) [facility] Pneumococcal 7 2007-03-13 Completed [facility] of Conjugate, PCV7 00:00:00 [place] [facility] (Prevnar7) Branch Pneumococcal 7 2007-03-13 Completed [facility] of Conjugate, PCV7 00:00:00 [place] [facility] (Prevnar7) Branch Pneumococcal 7 2007-03-13 Completed [facility] of Conjugate, PCV7 00:00:00 [place] [facility] (Prevnar7) Branch Pneumococcal 7 2007-03-13 Completed [facility] of Conjugate, PCV7 00:00:00 [place] [facility] (Prevnar7) [facility] Pneumococcal 7 2007-03-13 Completed [facility] of Conjugate, PCV7 00:00:00 [place] [facility] (Prevnar7) [facility] Pneumococcal 7 2007-03-13 Completed University of Conjugate, PCV7 00:00:00 [place] [facility] (Prevnar7) Branch Pneumococcal 7 2007-03-13 Completed University of Conjugate, PCV7 00:00:00 [place] [facility] (Prevnar7) [facility] Pneumococcal 7 2007-03-13 Completed University of Conjugate, PCV7 00:00:00 [place] [facility] (Prevnar7) [facility] Pneumococcal 7 2007-03-13 Completed University of Conjugate, PCV7 00:00:00 [place] [facility] (Prevnar7) [facility] Pneumococcal 7 2007-03-13 Completed University of Conjugate, PCV7 00:00:00 [place] [facility] (Prevnar7) [facility] Pneumococcal 7 2007-03-13 Completed University of Conjugate, PCV7 00:00:00 [place] [facility] (Prevnar7) [facility] Pneumococcal 7 2007-03-13 Completed University of Conjugate, PCV7 00:00:00 [place] [facility] (Prevnar7) [facility] Pneumococcal 7 2007-03-13 Completed University of Conjugate, PCV7 00:00:00 [place] [facility] (Prevnar7) [facility] Pneumococcal 7 2007-03-13 Completed University of Conjugate, PCV7 00:00:00 [place] [facility] (Prevnar7) [facility] Pneumococcal 7 2007-03-13 Completed University of Conjugate, PCV7 00:00:00 [place] [facility] (Prevnar7) [facility] Pneumococcal 7 2007-03-13 Completed University of Conjugate, PCV7 00:00:00 [place] [facility] (Prevnar7) [facility] Pneumococcal 7 2007-03-13 Completed University of Conjugate, PCV7 00:00:00 [place] [facility] (Prevnar7) [facility] Pneumococcal 7 2007-03-13 Completed University of Conjugate, PCV7 00:00:00 [place] [facility] (Prevnar7) [facility] Pneumococcal 7 2007-03-13 Completed University of Conjugate, PCV7 00:00:00 [place] [facility] (Prevnar7) [facility] Pneumococcal 7 2007-03-13 Completed University of Conjugate, PCV7 00:00:00 [place] [facility] (Prevnar7) [facility] Pneumococcal 7 2007-03-13 Completed University of Conjugate, PCV7 00:00:00 [place] [facility] (Prevnar7) [facility] Pneumococcal 7 2007-03-13 Completed University of Conjugate, PCV7 00:00:00 [place] [facility] (Prevnar7) [facility] Pneumococcal 7 2007-03-13 Completed University of Conjugate, PCV7 00:00:00 [place] [facility] (Prevnar7) [facility] Pneumococcal 7 2007-03-13 Completed University of Conjugate, PCV7 00:00:00 [place] [facility] (Prevnar7) [facility] Pneumococcal 7 2007-03-13 Completed University of Conjugate, PCV7 00:00:00 [place] [facility] (Prevnar7) [facility] Vital Signs Vital Name Observation Time Observation Value Comments Source Systolic blood 2020-11-27 15:26:00 138 mm[Hg] Univer sity of pressure [facility] Diastolic blood 2020-11-27 15:26:00 73 mm[Hg] Unive rsity of pressure [facility] Heart rate 2020-11-27 15:26:00 66 /min [facility] [place] [facility] Respiratory rate 2020-11-27 15:26:00 18 /min Univ ersity of [facility] Oxygen saturation in 2020-11-27 15:26:00 98 /min University of Arterial blood by [facility] charito Pulse oximetry Branch Body temperature 2020-11-27 15:11:00 36.11 Lena Univ [facility]ity [facility] [place] [facility] [place] Body weight 2020-11-14 15:22:00 74.8 kg [facility] [place] [facility] [place] BMI 2020-11-14 15:22:00 33.31 kg/m2 [facility] [place] [facility] Systolic blood 2020-11-27 15:26:00 138 mm[Hg] Univer sity of pressure [place] [facility] Diastolic blood 2020-11-27 15:26:00 73 mm[Hg] Unive rsity of pressure [facility] Heart rate 2020-11-27 15:26:00 66 /min [facility] [place] [facility] Respiratory rate 2020-11-27 15:26:00 18 /min Univ ers[facility] [place] [facility] Oxygen saturation in 2020-11-27 15:26:00 98 /min University of Arterial blood by [facility] charito Pulse oximetry Branch Body temperature 2020-11-27 15:11:00 36.11 Lena Univ [facility] [place] [facility] Body weight 2020-11-14 15:22:00 74.8 kg [facility] [place] [facility] BMI 2020-11-14 15:22:00 33.31 kg/m2 [facility] [place] [facility] Systolic blood 2020-10-23 14:43:00 150 mm[Hg] Univer sity of pressure [place] [facility] Diastolic blood 2020-10-23 14:43:00 66 mm[Hg] Unive rsity of pressure [place] [facility] Heart rate 2020-10-23 14:43:00 68 /min [facility] [place] [facility] Oxygen saturation in 2020-10-23 14:43:00 98 /min University of Arterial blood by [facility] charito Pulse oximetry Branch Respiratory rate 2020-10-23 14:30:00 9 /min Univ ers[facility] [place] [facility] Body temperature 2020-10-23 14:17:00 36.5 Lena [facility] [place] [facility] Body height 2020-10-21 16:49:00 149.9 cm [facility] [place] [facility] Body weight 2020-10-21 16:49:00 74.844 kg [facility] [place] [facility] BMI 2020-10-21 16:49:00 33.33 kg/m2 [facility] [place] [facility] Systolic blood 2020-10-23 14:43:00 150 mm[Hg] Univer sity of pressure [place] [facility] Diastolic blood 2020-10-23 14:43:00 66 mm[Hg] Unive rsity of pressure [place] [facility] Heart rate 2020-10-23 14:43:00 68 /min [facility] [place] [facility] Oxygen saturation in 2020-10-23 14:43:00 98 /min University of Arterial blood by [facility] charito Pulse oximetry Branch Respiratory rate 2020-10-23 14:30:00 9 /min Univ [facility] [place] [facility] Body temperature 2020-10-23 14:17:00 36.5 Lena [facility] [place] [facility] Body height 2020-10-21 16:49:00 149.9 cm [facility] [place] [facility] Body weight 2020-10-21 16:49:00 74.844 kg [facility] [place] [facility] BMI 2020-10-21 16:49:00 33.33 kg/m2 [facility] [place] [facility] Systolic blood 2019-08-10 17:19:00 113 mm[Hg] Univer sity of pressure [place] [facility] Diastolic blood 2019-08-10 17:19:00 58 mm[Hg] Unive rsity of pressure [place] [facility] Heart rate 2019-08-10 17:19:00 88 /min [facility] [place] [facility] Body temperature 2019-08-10 17:19:00 36.28 Lena [facility] [place] [facility] Respiratory rate 2019-08-10 17:19:00 18 /min Univ [facility] [place] [facility] Body weight 2019-08-10 17:19:00 75.751 kg [facility] [place] [facility] BMI 2019-08-10 17:19:00 33.17 kg/m2 [facility] [place] [facility] Oxygen saturation in 2019-08-10 17:19:00 96 /min University of Arterial blood by [facility] Pulse oximetry Branch Systolic blood 2019-08-10 17:19:00 113 mm[Hg] Univer sity of pressure [place] [facility] Diastolic blood 2019-08-10 17:19:00 58 mm[Hg] Unive rsity of pressure [place] [facility] Heart rate 2019-08-10 17:19:00 88 /min [facility] [place] [facility] Body temperature 2019-08-10 17:19:00 36.28 Lena [facility] [place] [facility] Respiratory rate 2019-08-10 17:19:00 18 /min Univ [facility] [place] [facility] Body weight 2019-08-10 17:19:00 75.751 kg [facility] [place] [facility] BMI 2019-08-10 17:19:00 33.17 kg/m2 [facility] [place] [facility] Oxygen saturation in 2019-08-10 17:19:00 96 /min University of Arterial blood by [facility] Pulse oximetry Branch Systolic blood 2019-04-20 16:06:00 123 mm[Hg] Univer sity of pressure [place] [facility] Diastolic blood 2019-04-20 16:06:00 75 mm[Hg] Unive rsity of pressure [place] [facility] Heart rate 2019-04-20 16:06:00 83 /min [facility] [place] [facility] Body temperature 2019-04-20 16:06:00 35.83 Lena [facility] [place] [facility] Respiratory rate 2019-04-20 16:06:00 20 /min [facility] [place] [facility] Body weight 2019-04-20 16:06:00 75.161 kg [facility] [place] [facility] BMI 2019-04-20 16:06:00 32.91 kg/m2 [facility] [place] [facility] Oxygen saturation in 2019-04-20 16:06:00 98 /min University of Arterial blood by [facility] Pulse oximetry Branch Procedures Procedure Date / Time Performing Source Performed Clinician PHACOEMULSIFICATION OF 2020-11-27 Edyta [facility] CATARACT WITH INTRAOCULAR 14:38:00 Jamar Nicholson l [place] LENS IMPLANT POCT GLUCOSE (AUTOMATED) 2020-11-27 Edyta [facility] 12:52:00 [facility] POCT GLUCOSE (AUTOMATED) 2020-11-27 Edyta [facility] 12:52:00 [facility] COVID-19 (ID NOW RAPID [facility] 16:23[facility]00 [facility] ASSIGNMENT OF BENEFITS 2020-11-25 Doctor Unassigned, [facility] 16:10:46 [facility] PHACOEMULSIFICATION OF 2020-10-23 Edyta [facility] CATARACT WITH INTRAOCULAR 13:42:00 Jamar Nicholson l [place] LENS IMPLANT POCT GLUCOSE(AGE >30DAYS) 2020-10-23 Hortensia Wu [facility] 12:00:00 Medical [place] POCT GLUCOSE(AGE >30DAYS) 2020-10-23 Hortensia Wu [facility] 12:00:00 Medical [place] POCT GLUCOSE (AUTOMATED) 2020-10-23 Edyta [facility] 11:59:00 [facility] POCT GLUCOSE (AUTOMATED) 2020-10-23 Edyta [facility] 11:59:00 [facility] CBC WITH DIFF 2020-10-16 Edyta [facility] 17:47:00 [facility] ASSIGNMENT OF BENEFITS 2020-10-16 Doctor Unassigned, [facility] 17:07:52 [facility] DME/SUPPLY JUSTIFICATION 2019-08-16 Doctor Unassigned, [facility] 05:01:00 [facility] POCT HEMOGLOBIN A1C TEST [facility]:57[facility] Zehra [facility] ASSIGNMENT OF BENEFITS 2019-04-20 Doctor Unassigned, [facility] 15:34:46 [facility] REFERRAL- REQUEST/RESPONSE 2019-01-23 Doctor Unassgeorge, [facility] 06:01:00 [facility] Encounters Start End Encounter Admission Attending Care Care Encounter Source Date/Time Date/Time Type Type Clinicians Facility Department ID 2021-03-11 Outpatient Gallo, [facility] [id number] [facility] 14:40:07 [facility] 2021-03-11 Outpatient Gallo, [facility] STL[facility] [id number] [facility] 14:16:28 [facility] [id number] 2021-03-11 Outpatient Gallo, [facility] STLC [id number] [facility] 14:11:10 Roland [id number] [facility] 2021-03-11 Outpatient Gallo, [facility] STLC [id number] [facility] 14:10:16 Roland [id number] [facility] 2020-12-16 Outpatient R EDYTA [facility] [id number] Univers 05:02:12 [facility] 2020-12-15 Outpatient EDYTA [facility] [id number] Univers 19:17:29 [facility] 2021-03-19 2021-03-19 ambulatory [facility]LMLC [facility] [id number] [facility] 2021-03-18 2021-03-18 ambulatory [facility]LML[facility] [id number] [facility] 2021-03-13 2021-03-13 ambulatory [facility]LMLC [facility]C [id number] [facility] 2021-03-10 2021-03-10 ambulatory [facility]LMLC [facility] [id number] [facility] 2021-03-09 2021-03-09 ambulatory [facility]LMLC [facility]LMLC [id number] [facility] 2021-01-23 2021-01-23 ambulatory [facility]LMLC [facility] [id number] [facility] 2020-12-24 2020-12-24 ambulatory [facility]LMLC [facility] [id number] [facility] 2020-12-22 2020-12-22 ambulatory [facility]LMLC STLMLC [id number] [facility] 00[facility]00 [facility] 2020-11-27 2020-11-27 [facility] 1.2.840.114 [id number] Univers 07:37:00 10:50:00 Encounter Khoi Mancilla [id number] ity [place] [phone] [facility] 071 Branch 2020-11-27 2020-11-27 Surgery [facility] 1.2.840.114 [id number] Univers 09:51:00 10:28:00 Khoi Mancilla 350.1.13.10 i ty of [place] 4.2.7.2.686 [facility] Surgical [phone] [facility] 020 Branch 2020-11-25 2020-11-25 Outpatient R [facility] [id number] Univers 11:30:00 11:30:00 [id number] ity of [facility] 2020-11-25 2020-11-25 [facility] [id number] Univers 11:30:00 11:30:00 KHOI cotto [facility] 2020-11-25 2020-11-25 Laboratory Only, Adc Test [facility] 1.2.840. 114 [id number] Univers 11:13:10 11:28:10 Only Khoi Lan 350.1.1 3.10 it[place].2.686 [place] [phone] [facility] 353 Branch 2020-11-25 2020-11-25 Orders Doctor NAE 1.2.840.114 [id number] Univers 00:00:00 00:00:00 Only Unassigned, JESUS 350.1.13.10 ity of [place] [facility] 4.2.7.2.686 Kyle as [phone] [facility] 009 Branch 2020-11-11 2020-11-11 [facility] 1.2.840.114 [id number] Univers 00:00:00 00:00:00 Zehra Mancilla 350.1.13.10 [place] [phone] [facility] 231 Branch [facility] 2020-10-23 2020-10-23 Hospital [facility] 1.2.840.114 [id number] Univers 06:56:00 10:08:00 Encounter Khoi Mancilla 350.1.13.10 ity [place] 4[place]2.[place] [phone] [facility] 071 Branch 2020-10-23 2020-10-23 Surgery [facility] 1.2.840.114 [id number] Univers 09:07:00 09:44:00 Khoi Mancilla 350.1.13.10 i ty of [place] 4[place]2.686 [place] [phone] [facility] 020 Branch 2020-10-21 2020-10-21 Laboratory Only, Adc Test [facility] 1.2.840. 114 [id number] Univers 11:48:01 12:03:01 Only Khoi Lan 350.1.1 3.10 [place].2.686 [place] [phone] [facility] 353 Branch 2020-10-21 2020-10-21 Outpatient R [facility] [id number] Univers 11:45:00 11:45:00 [id number] ity [facility] 2020-10-21 2020-10-21 Outpatient R [facility] [id number] Univers 11:45:00 11:45:00 ity of [facility] 2020-10-16 2020-10-16 Outpatient R [facility] [id number] Univers 13:45:00 13:45:00 [id number] ity of [facility] 2020-10-16 2020-10-16 Outpatient R EDYTA [facility] [id number] Univers 13:45:00 13:45:00 KHOI ity [facility] 2020-10-16 2020-10-16 [employer] Korin, [place] Lab Main [facility] 1.2.8 40.114 [id number] Univers 12:13:01 12:28:01 Visit Khoi Lan Laurent 350.1.1 3.10 ity [place] [phone] Wi dical nal [address] [place] [address] 2020-10-16 2020-10-16 Orders Doctor NAE 1.2.840.114 [id number] Univers 00:00:00 00:00:00 Only Unassigned, JESUS 350.1.13.10 ity of [facility] 4.2.7.2.686 Kyle as [phone] [address] 2020-04-12 2020-04-12 Outpatient [facility] [id number] Univers 08:45:00 08:45:00 ity of [facility] 2020-04-05 2020-04-05 Outpatient [facility] [id number] Univers 08:45:00 08:45:00 ity [facility] 2020-03-15 2020-03-15 Outpatient [facility] [id number] Univers 10:30:00 [facility]30[facility] 2019-10-30 2019-10-30 [facility] [id number] Univers 10:20:00 10:20:00 ZEHRA [id number] ity [facility] 2019-10-08 2019-10-08 [facility] [id number] Univers 09:20:00 09:20:00 ZEHRA [id number] [facility] 2019-09-29 2019-09-29 [facility] 1.2.840.114 [id number] Univers 00:00:00 00:00:00 Zehra Mancilla 350.1.13.10 ity [place] [phone] Wi dical nal [address] [facility] 2019-09-29 2019-09-29 Refill [facility], [facility] 1.2.840.114 [id number] 00:00:00 00:00:00 Zehra Mancilla 350.1.13.10 [place] 4.2.7.2.686 Professio [phone] [address] 2019-09-08 2019-09-08 Refill [facility], [facility] 1.2.840.114 [id number] [facility] 00:00:00 00:00:00 Zehramatteo Mancilla 350.1.13.10 ity [place] 4[place].2.[place] [phone] [address] 2019-09-08 2019-09-08 Refill [facility], [facility] 1.2.840.114 [id number] 00:00:00 00:00:00 Zehra Mancilla 350.1.13.10 [place] 4.2.7.2.686 Professio [phone] [address] 2019-08-16 2019-08-16 Orders Doctor NAE 1.2.840.114 [id number] Univers 00:00:00 00:00:00 Only Unassigned, JESUS 350.1.13.10 ity of [place] [facility] 4.2.7.2.686 Kyle as [phone] [address] 2019-08-16 2019-08-16 Orders Doctor SONI 1.2.840.114 [id number] 00:00:00 00:00:00 Only Unassigned, JESUS 350.1.13.10 [facility] 4.2.7.2.686 [id number] [facility] 2019-08-10 2019-08-10 Office [facility] 1.2.840.114 [id number] [facility] 12:12:21 12:52:21 Visit Zehra Mancilla 350.1.13.10 ity [place] [phone] [address] 2019-08-10 2019-08-10 [facility] 1.2.840.114 [id number] 12:12:21 12:52:21 Visit Zehra Alvaradoton 350.1.13.10 [place] 4.2.7.2.686 Professio [phone] [address] 2019-08-10 2019-08-10 [facility] [id number] Univers 12:20:00 12:20:00 ZEHRA [id number] ity [facility] 2019-08-10 2019-08-10 [facility] [id number] Univers 12:20:00 12:20:00 [facility] 2019-08-07 2019-08-07 [facility] 12.840.114 [id number] Univers 00:00:00 00:00:00 Zehra A [place] 350.1.13.10 ity [place] 4[place]2.7.2.[place] [phone] [address] 2019-07-20 2019-07-20 [facility] 1.2.840.114 [id number] Univers 00:00:00 00:00:00 Zehra A [place] 350.1.13.10 ity [place] 4.2.7.2.[place] [phone] [address] 2019-07-19 2019-07-19 [facility] 1.2.840.114 [id number] Univers 00:00:00 00:00:00 Zehra A [place] 350.1.13.10 ity [place] 4[place]2.[place].2.[place] [phone] [address] 2019-07-16 2019-07-16 [facility] 1.2.840.114 [id number] Univers 00:00:00 00:00:00 Zehra A [place] 350.1.13.10 ity [place] 4[place].2.[place] [phone] [address] 2019-05-21 2019-05-21 Outpatient R LINDY [facility] [id number] Univers 00:00:00 00:00:00 ZEHRA [id number] ity [facility] 2019-05-02 2019-05-02 [facility] 1.2.840.114 [id number] Univers 00:00:00 00:00:00 Zehra Mancilla 350.1.13.10 it[place] 4[place].2.[place] [phone] [address] 2019-04-24 2019-04-24 [facility] 1.2.840.114 [id number] Univers 00:00:00 00:00:00 Zehra Mancilla 350.1.13.10 ity [place] 4[place].2.[place] [phone] [address] 2019-04-20 2019-04-20 [facility] 1.2.840.114 [id number] Univers 09:35:10 11:39:26 Visit Zehra Mancilla 350.1.13.10 ity [place] 4[place].2.[place] [phone] [address] 2019-04-20 2019-04-20 [facility] [id number] Univers 09:40:00 09:40:00 ZEHRA [id number] ity of [facility] 2019-04-20 2019-04-20 [facility] [id number] Univers 09:40:00 09:40:00 ZEHRA ity of [facility] 2019-04-20 2019-04-20 Orders Doctor SONI 1.2.840.114 [id number] Univers 00:00:00 00:00:00 Only Unassigned, JESUS 350.1.13.10 ity of [place] [facility] 4.2.7.2.686 Kyle as [phone] [address] 2019-01-23 2019-01-23 Orders Doctor NAE 1.2.840.114 [id number] Univers 00:00:00 00:00:00 Only Unassigned, JESUS 350.1.13.10 ity of [place] [facility] 4.2.7.2.686 Kyle as [phone] [address] 2018-10-20 2018-10-20 [facility] [place], [facility] 1.2.840.114 [id number] Univers 00:00:00 00:00:00 Zehra A [place] 350.1.13.10 it[place] 4[place] [phone] [facility] 0[address] [facility] 2018-10-19 2018-10-19 [facility] 1.2.840.114 [id number] Univers 00:00:00 00:00:00 Zehra A [place] 350.1.13.10 ity [place] [phone] [facility] [address] [facility] 2018-09-28 2018-09-28 [facility] 1.2.840.114 [id number] Univers 00:00:00 00:00:00 Zehra A [place] 350.1.13.10 ity [place] 4[place].2.[place] [phone] [address] 2018-09-08 2018-09-08 [place] [facility] 1.2.840.114 [id number] Univers 00:00:00 00:00:00 Zehra A [place] 350.1.13.10 ity [place] 4[place].2.[place] [phone] [address] 2018-09-08 2018-09-[address] [facility] 1.2.840.114 [id number] Univers 00:00:00 00:00:00 Zehra A [place] 350.1.13.10 it[place] 4[place].2.[place] [phone] [address] Results Test Description Test Time Test Comments Results Result Comments Source POCT GLUCOSE (AUTOMATED) 2020-11-27 13:02:24 Test Item Value Reference Range Interpretation Comme nts POCT GLU (test code = 6400751212) 152 mg/dL 70-110 H Lab Interpretation (test code = 98635-2) Abnormal [facility] GLUCOSE (AUTOMATED)2020-11-27 13:02:24 Test Item Value Reference Range Interpretation Comments POCT GLU (test code = 6872529463) 152 mg/dL 70-110 H Lab Interpretation (test code = Abnormal 20477-3) [facility] [id number] 12:52:00 Test Item Value Reference Range Interpretation Comments POCT Glu (age>30days) (test code = 152 mg/dL 70-110 A 3342) Lab Interpretation (test code = Abnormal 70613-1) [facility] [id number] 12:52:00 Test Item Value Reference Range Interpretation Comments POCT Glu (age>30days) (test code = 152 mg/dL 70-110 A 3342) Lab Interpretation (test code = Abnormal 11511-1) [facility] GLUCOSE (AUTOMATED)2020-10-23 12:02:13 Test Item Value Reference Range Interpretation Comments POCT GLU (test code = 5210143370) 90 mg/dL 70-110 Lab Interpretation (test code = Normal 36418-0) [facility] GLUCOSE (AUTOMATED)2020-10-23 12:02:13 Test Item Value Reference Range Interpretation Comments POCT GLU (test code = 9055766233) 90 mg/dL 70-110 Lab Interpretation (test code = Normal 08433-7) [facility] GLUCOSE (AUTOMATED)2020-10-23 12:02:13 Test Item Value Reference Range Interpretation Comments POCT GLU (test code = 3035424787) 90 mg/dL 70-110 Lab Interpretation (test code = Normal 71781-7) [facility] GLUCOSE (AUTOMATED)2020-10-23 12:02:13 Test Item Value Reference Range Interpretation Comments POCT GLU (test code = 8106757556) 90 mg/dL 70-110 Lab Interpretation (test code = Normal 89928-5) [facility] [id number] 12:00:00 Test Item Value Reference Range Interpretation Comments POCT Glu (age>30days) (test code = 90 mg/dL 70-110 3342) [facility] [id number] 12:00:00 Test Item Value Reference Range Interpretation Comments POCT Glu (age>30days) (test code = 90 mg/dL 70-110 3342) [facility] [id number] 12:00:00 Test Item Value Reference Range Interpretation Comments POCT Glu (age>30days) (test code = 90 mg/dL 70-110 3342) [facility] [id number] 12:00:00 Test Item Value Reference Range Interpretation Comments POCT Glu (age>30days) (test code = 90 mg/dL 70-110 3342) [facility] WITH [id number] 17:49:32 Test Item Value Reference Range Interpretation Comments WBC (test code = See_Comment [Automated 3553-2) message] The sy stem which generated this result transmitted reference range : 4.30 - 11.10 10*3/?L. The reference range was not used to interpret this result as normal/abnormal . RBC (test code = See_Comment [Automated 9-8) message] The sy stem which generated this result transmitted reference range : 3.93 - 5.25 10*6/?L. The reference range was not used to interpret this result as normal/abnormal . HGB (test code = 12.0 g/dL 11.6-15.0 718-7) HCT (test code = 37.6 % 35.7-45.2 4544-3) MCV (test code = 93.8 fL 80.6-95.5 787-2) MCH (test code = 29.9 pg 25.9-32.8 785-6) MCHC (test code = 31.9 g/dL 31.6-35.1 786-4) RDW-SD (test code = 52.9 fL 39.0-49.9 H 16779-4) RDW-CV (test code = 15.3 % 12.0-15.5 788-0) PLT (test code = See_Comment [Automated 497-3) message] The sy stem which generated this result transmitted reference range : 166 - 358 10*3/ ?L. The reference r loree was not used to interpret this result as normal/abnormal . MPV (test code = 10.8 fL 9.5-12.9 65956-2) NRBC/100 WBC (test See_Comment [Automat ed code = 0674162099) message] The system which generated this result transmitted reference range : 0.0 - 10.0 /100 WBCs. The refer ence range was not u sed to interpret th is result as normal/abnormal . NRBC x10^3 (test code <0.01 See_Comment [Auto mated = [id number]) message] The s ystem which generated this result transmitted reference range : 10*3/?L. The reference range was not used to interpret this result as normal/abnormal . GRAN MAT (NEUT) % 66.3 % (test code = 770-8) IMM GRAN % (test code 0.40 % = 5497792814) LYMPH % (test code = 23.9 % 736-9) MONO % (test code = 6.6 % 5905-5) EOS % (test code = 1.9 % 713-8) BASO % (test code = 0.9 % 706-2) GRAN MAT x10^3(ANC) 5.19 10*3/uL 1.88-7.09 (test code = 4891887848) IMM GRAN x10^3 (test 0.03 10*3/uL 0.00-0.06 code = 3367673125) LYMPH x10^3 (test code 1.87 10*3/uL 1.32-3.29 = 731-0) MONO x10^3 (test code 0.52 10*3/uL 0.33-0.92 = 742-7) EOS x10^3 (test code = 0.15 10*3/uL 0.03-0.39 711-2) BASO x10^3 (test code 0.07 10*3/uL 0.01-0.07 = 704-7) Lab Interpretation Abnormal (test code = 98835-8) [facility] WITH [id number] 17:49:32 Test Item Value Reference Range Interpretation Comments WBC (test code = See_Comment [Automated 6690-2) message] The sy stem which generated this result transmitted reference range : 4.30 - 11.10 10*3/?L. The reference range was not used to interpret this result as normal/abnormal . RBC (test code = See_Comment [Automated 789-8) message] The sy stem which generated this result transmitted reference range : 3.93 - 5.25 10*6/?L. The reference range was not used to interpret this result as normal/abnormal . HGB (test code = 12.0 g/dL 11.6-15.0 718-7) HCT (test code = 37.6 % 35.7-45.2 4544-3) MCV (test code = 93.8 fL 80.6-95.5 787-2) MCH (test code = 29.9 pg 25.9-32.8 785-6) MCHC (test code = 31.9 g/dL 31.6-35.1 786-4) RDW-SD (test code = 52.9 fL 39.0-49.9 H 85584-3) RDW-CV (test code = 15.3 % 12.0-15.5 788-0) PLT (test code = See_Comment [Automated 777-3) message] The sy stem which generated this result transmitted reference range : 166 - 358 10*3/ ?L. The reference r loree was not used to interpret this result as normal/abnormal . MPV (test code = 10.8 fL 9.5-12.9 13838-9) NRBC/100 WBC (test See_Comment [Automat ed code = 8316885159) message] The system which generated this result transmitted reference range : 0.0 - 10.0 /100 WBCs. The refer ence range was not u sed to interpret th is result as normal/abnormal . NRBC x10^3 (test code <0.01 See_Comment [Auto mated = 1169017005) message] The s ystem which generated this result transmitted reference range : 10*3/?L. The reference range was not used to interpret this result as normal/abnormal . GRAN MAT (NEUT) % 66.3 % (test code = 770-8) IMM GRAN % (test code 0.40 % = 1653497986) LYMPH % (test code = 23.9 % 736-9) MONO % (test code = 6.6 % 5905-5) EOS % (test code = 1.9 % 713-8) BASO % (test code = 0.9 % 706-2) GRAN MAT x10^3(ANC) 5.19 10*3/uL 1.88-7.09 (test code = 2066233258) IMM GRAN x10^3 (test 0.03 10*3/uL 0.00-0.06 code = 4385422127) LYMPH x10^3 (test code 1.87 10*3/uL 1.32-3.29 = 731-0) MONO x10^3 (test code 0.52 10*3/uL 0.33-0.92 = 742-7) EOS x10^3 (test code = 0.15 10*3/uL 0.03-0.39 711-2) BASO x10^3 (test code 0.07 10*3/uL 0.01-0.07 = 704-7) Lab Interpretation Abnormal (test code = 09852-6) [facility] HEMOGLOBIN A1C [id number] 16:57:00 Test Item Value Reference Range Interpretation Comments POCT HBA1C (test code = 4548-4) 7.6 % 4-6 A Lab Interpretation (test code = Abnormal 33507-3) [facility] HEMOGLOBIN A1C [id number] 16:57:00 Test Item Value Reference Range Interpretation Comments POCT HBA1C (test code = 4548-4) 7.6 % 4-6 A Lab Interpretation (test code = Abnormal 08439-7) [facility]
[2021-03-24 03:09] LABS: Protime INR 1.02
[2021-03-24 03:10] LABS: Absolute Lymphocytes (CBC) 1.1 K/uL (0.7-4.9); Hematocrit 33.1 % (36.0-45.0); Lymphocytes % 7.3 % (15.3-44.8); MPV 9.2 fL (7.6-11.3); RBC Red Blood Cell Count 3.62 M/uL (3.86-4.86)
[2021-03-24 03:24] LABS: Albumin 3.3 g/dL (3.4-5.0); Bilirubin Direct 0.1 mg/dL (0-0.2); Bilirubin Total 0.3 mg/dL (0.2-1.0); Potassium 3.2 mmol/L (3.5-5.1); Troponin High Sensitivity 9.2 pg/mL (<58.9)
[2021-03-24 03:38] LABS: Urine Blood Negative (Negative); Urine Glucose Negative (Negative); Urine Protein Negative (Negative); Urine pH 6.5 (5.0-7.0)
[2021-03-24 04:08] LABS: Blood Morphology Comment NOT SEEN (NOT SEEN); Platelet Estimate ADEQ
--- NOTE | 2021-03-24 04:25 | EDPHYS ---
Physician Documentation [facility] Name: Hortensia Bergman Age: 75 yrs Sex: Female : 1945 Arrival Date: 03/24/2021 Time: 02:34 Bed 8 Private MD: ED Physician Miguel Vieira HPI: 03/24 02:41 This 75 yrs old Female presents to ER via EMS with complaints of LOW bg and zay dysuria. 02:41 The patient presents with urinary symptoms, dysuria, frequency, hesitancy, urgency. zay Onset: The symptoms/episode began/occurred just prior to arrival. Modifying factors: The symptoms are alleviated by nothing, the symptoms are aggravated by nothing. Associated signs and symptoms: Pertinent positives: dysuria, urinary frequency. Severity of symptoms: At their worst the symptoms were moderate, in the emergency department the symptoms are unchanged. Onset: The symptoms/episode began/occurred just prior to arrival. Associated signs and symptoms: Pertinent positives: decreased urine output, urinary incontinence. The patient presents with confusion, decreased mental status, decreased responsiveness. Possible causes: low blood sugar, the patient uses insulin, the patient takes and oral hypoglycemic, seizure, sepsis. Historical: - Allergies: 02:38 Codeine; as6 02:38 Iodine; as6 - Home Meds: 02:38 atorvastatin 20 mg Oral tab [Active]; Humulin R 100 unit/mL cap [Active]; as6 hydrochlorothiazide 50 mg Oral tab 1 tab once daily [Active]; Lantus 100 unit/mL Sub-Q cap [Active]; levothyroxine 100 mcg tab 1 tab once daily [Active]; losartan 100 mg Oral tab [Active]; metformin 1,000 mg Oral tab 1 tab 2 times per day [Active]; - PMHx: 02:38 abd hernia; diabetes mellitus; Hypercholesterolemia; Hypertensive disorder; as6 - Immunization history:: Client reports receiving the 2nd dose of the Covid vaccine, pfizer. - Social history:: Smoking status: Patient denies any tobacco usage or history of. ROS: 02:43 Constitutional: Negative for fever, chills, and weight loss, Eyes: Negative for injury, zay pain, redness, and discharge, ENT: Negative for injury, pain, and discharge, Neck: Negative for injury, pain, and swelling, Cardiovascular: Negative for chest pain, palpitations, and edema, Respiratory: Negative for shortness of breath, cough, wheezing, and pleuritic chest pain, Abdomen/GI: Negative for abdominal pain, nausea, vomiting, diarrhea, and constipation, Back: Negative for injury and pain, MS/Extremity: Negative for injury and deformity, Skin: Negative for injury, rash, and discoloration, Psych: Negative for depression, anxiety, suicide ideation, homicidal ideation, and hallucinations, Allergy/Immunology: Negative for hives, rash, and allergies, Endocrine: Negative for neck swelling, polydipsia, polyuria, polyphagia, and marked weight changes, Hematologic/Lymphatic: Negative for swollen nodes, abnormal bleeding, and unusual bruising. 02:43 : Positive for urinary symptoms, burning with urination. Exam: 02:43 Constitutional: This is a well developed, well nourished patient who is awake, alert, zay and in no acute distress. Head/Face: Normocephalic, atraumatic. Eyes: Pupils equal round and reactive to light, extra-ocular motions intact. Lids and lashes normal. Conjunctiva and sclera are non-icteric and not injected. Cornea within normal limits. Periorbital areas with no swelling, redness, or edema. ENT: Nares patent. No nasal discharge, no septal abnormalities noted. Tympanic membranes are normal and external auditory canals are clear. Oropharynx with no redness, swelling, or masses, exudates, or evidence of obstruction, uvula midline. Mucous membranes moist. Neck: Trachea midline, no thyromegaly or masses palpated, and no cervical lymphadenopathy. Supple, full range of motion without nuchal rigidity, or vertebral point tenderness. No Meningismus. Chest/axilla: Normal chest wall appearance and motion. Nontender with no deformity. No lesions are appreciated. Cardiovascular: Regular rate and rhythm with a normal S1 and S2. No gallops, murmurs, or rubs. Normal PMI, no JVD. No pulse deficits. Respiratory: Lungs have equal breath sounds bilaterally, clear to auscultation and percussion. No rales, rhonchi or wheezes noted. No increased work of breathing, no retractions or nasal flaring. Back: No spinal tenderness. No costovertebral tenderness. Full range of motion. Female : Normal external genitalia. Skin: Warm, dry with normal turgor. Normal color with no rashes, no lesions, and no evidence of cellulitis. MS/ Extremity: Pulses equal, no cyanosis. Neurovascular intact. Full, normal range of motion. Neuro: Awake and alert, GCS 15, oriented to person, place, time, and situation. Cranial nerves II-XII grossly intact. Motor strength 5/5 in all extremities. Sensory grossly intact. Cerebellar exam normal. Normal gait. Psych: Awake, alert, with orientation to person, place and time. Behavior, mood, and affect are within normal limits. 02:43 Abdomen/GI: Inspection: abdomen appears normal, Bowel sounds: normal, Palpation: mild abdominal tenderness, in the suprapubic area, Liver: no appreciated palpable abnormalities, Hernia: not appreciated. 02:43 Back: pain, is absent, ROM is normal, normal spinal alignment noted, CVA tenderness, is absent, vertebral tenderness, is not appreciated, muscle spasm, is not present, Straight leg raises: of both lower extremities does not illicit pain. 03:13 ECG was reviewed by the Attending Physician. zay Vital Signs: 02:35 BP 125 / 51; Pulse 91; Resp 21 S; Temp 97.9(TE); Pulse Ox 96% on R/A; Weight 74.84 kg as6 (R); Height 4 ft. 11 in. (149.86 cm) (R); Pain 9/10; 04:10 BP 129 / 41; Pulse 82; Resp 20 S; Pulse Ox 96% on R/A; al4 05:00 BP 121 / 65; Pulse 82; Resp 18; Pulse Ox 98% ; al4 06:00 BP 124 / 60; Pulse 85; Resp 16; Pulse Ox 97% on R/A; al4 02:35 Body Mass Index 33.33 (74.84 kg, 149.86 cm) as6 MDM: 02:41 Patient medically screened. zay 02:45 Differential diagnosis: kidney stone. Differential Diagnosis: electrolyte abnormality, zay hypoglycemia, overdose, volume depletion. Data reviewed: vital signs, nurses notes, lab test result(s), EKG, radiologic studies, CT scan, plain films. Data interpreted: feather stitcher: rate is 91 beats/min, rhythm is regular, Pulse oximetry: on room air is 96 %. Test interpretation: by ED physician or midlevel provider: ECG, plain radiologic studies. Counseling: I had a detailed discussion with the patient and/or guardian regarding: the historical points, exam findings, and any diagnostic results supporting the discharge/admit diagnosis, lab results, radiology results. 03/24 02:36 Order name: Basic Metabolic Panel; Complete Time: 05:59 [facility] 03/24 02:36 Order name: CBC with Diff; Complete Time: 04:24 [facility] 03/24 02:36 Order name: LFT's; Complete Time: 05:59 [facility] 03/24 02:36 Order name: Magnesium; Complete Time: 05:59 [facility] 03/24 02:36 Order name: NT PRO-BNP; Complete Time: 05:59 [facility] 03/24 02:36 Order name: PT-INR; Complete Time: 03:17 [facility] 03/24 02:36 Order name: Troponin HS; Complete Time: 05:59 [facility] 03/24 02:41 Order name: Urine Culture [facility] 03/24 02:48 Order name: Glucose, Ancillary Testing; Complete Time: 03:17 [facility] 03/24 03:15 Order name: Manual Differential; Complete Time: 04:24 [facility] 03/24 03:39 Order name: Urine Dipstick-Ancillary; Complete Time: 03:46 [facility] 03/24 05:29 Order name: Glucose, Ancillary Testing; Complete Time: 05:59 [facility] 03/24 07:30 Order name: Glucose, Ancillary Testing [facility] 03/24 11:50 Order name: Glucose, Ancillary Testing [facility] 03/24 02:36 Order name: XRAY Chest (1 view) [facility] 03/24 02:36 Order name: EKG; Complete Time: 02:37 [facility] 03/24 02:36 Order name: Cardiac monitoring; Complete Time: 02:37 [facility] 03/24 02:36 Order name: EKG - Nurse/Tech; Complete Time: 02:41 [facility] 03/24 02:36 Order name: IV Saline Lock; Complete Time: 02:45 [facility] 03/24 02:36 Order name: Diet Regular; Complete Time: 02:37 [facility] 03/24 02:46 Order name: CT Stone Protocol [facility] 03/24 13:00 Order name: COVID-19/FLU A+B [facility] 03/24 14:38 Order name: US [facility] 03/24 15:01 Order name: Glucose, Ancillary Testing [facility] 03/24 02:36 Order name: Labs collected and sent; Complete Time: 03:17 [facility] 03/24 02:36 Order name: O2 Per Protocol; Complete Time: 02:37 [facility] 03/24 02:36 Order name: O2 Sat Monitoring; Complete Time: 02:37 [facility] 03/24 02:36 Order name: Urine Dipstick-Ancillary (obtain specimen); Complete Time: 04:22 [facility] 03/24 02:41 Order name: Bladder Scanner: PVR; Complete Time: 03:34 zay 03/24 03:47 Order name: PO challenge: juice x2; Complete Time: 05:29 [facility] 03/24 04:25 Order name: Valdez; Complete Time: 04:28 [facility] EC:13 Rate is 84 beats/min. Rhythm is regular. QRS [place] is Normal. [place] interval is normal. QRS zay interval is normal. QT interval is normal. No Q waves. T waves are Normal. No ST changes noted. Clinical impression: NSR w/ Non-specific ST/T Changes and No evidence of ischemia. Interpreted by me. Reviewed by me. Administered Medications: 02:48 Drug: D5-1/2 NS 1000 ml Route: IV; Rate: 125 ml/hr; Site: left antecubital; as6 04:24 CANCELLED (Duplicate Order): Cipro (ciprofloxacin) 500 mg PO once zay 05:28 Drug: Cipro (ciprofloxacin) 400 mg Volume: 200 ml; Route: IVPB; Infused Over: 60 mins; as6 Site: left antecubital; 06:30 Follow up: IV Status: Completed infusion al4 05:28 Drug: D50W 50 ml Route: IVP; Site: left antecubital; as6 05:28 CANCELLED (Duplicate Order): D50W 50 ml IVP once; (1 amp) [facility] 06:29 Drug: Magnesium Sulfate 1 grams Route: IVPB; Infused Over: 30 mins; Site: left al4 antecubital; 07:01 Follow up: IV Status: Completed infusion al4 Disposition Summary: 03/24/21 04:23 Hospitalization Ordered Hospitalization Status: Observation zay Provider: Faustino Barksdale cha Condition: Fair(03/24/21 04:23) zay Problem: new(03/24/21 04:23) zay Symptoms: have improved(03/24/21 04:23) zay Bed/Room Type: Standard zay Location: Telemetry/MedSurg (observation)(03/24/21 14:09) bd Room Assignment: 221(03/24/21 14:09) bd Diagnosis - UTI/ Urinary tract infection, site not specified(03/24/21 04:23) zay - Adverse effect of insulin and oral hypoglycemic [antidiabetic] drugs(03/24/21 04:23)zay - Hypoglycemia, unspecified(03/24/21 04:23) zay - Altered mental status, unspecified - hypoglycemia zay - Hypokalemia(03/24/21 04:23) zay - Elevated white blood cell count zay - Retention of urine, unspecified - 1500 cc(03/24/21 04:27) zay - Hypomagnesemia zay Forms: - Medication Reconciliation Form zay - SBAR form zay Signatures: Dispatcher [employer] EDMel Cancino Corey, MD MD cha Garcia, Cindy, RN RN Agustin Hernández RN RN as6 Freddy Lopez Corrections: (The following items were deleted from the chart) 04:19 04:18 Home zay zay 04:19 04:18 new zay zay 04:19 04:18 have improved zay zay 04:19 04:18 Stable zay zay 04:19 04:18 Hypoglycemia, unspecified zay zay 04:19 04:18 Adverse effect of insulin and oral hypoglycemic [antidiabetic] drugs zay zay 04:19 04:18 UTI/ Urinary tract infection, site not specified zay zay 04:19 04:18 Retention of urine, unspecified zay zay 04:19 04:18 Hypokalemia zay zay 04:24 04:02 Cipro (ciprofloxacin) 500 mg PO once ordered. zay zay 04:27 04:23 Retention of urine, unspecified zay zay 05:05 04:23 Telemetry/MedSurg (observation) zay cg 05:05 04:23 zay cg 05:28 05:28 D50W 50 ml IVP once; (1 amp) ordered. zay zay 14: 05:05 [facility] ER HOLD cg bd 14: 05:05 ERHOLD- cg bd
--- NOTE | 2021-03-24 04:25 | ER ---
Nurse's Notes [facility] Name: Hortensia Bergman Age: 75 yrs Sex: Female : 1945 Arrival Date: 03/24/2021 Time: 02:34 Bed 8 Private MD: Diagnosis: UTI/ Urinary tract infection, site not specified;Adverse effect of insulin and oral hypoglycemic [antidiabetic] drugs;Hypoglycemia, unspecified;Altered mental status, unspecified-hypoglycemia;Hypokalemia;Retention of urine, unspecified-1500 cc;Elevated white blood cell count;Hypomagnesemia Presentation: 03/24 02:35 Chief complaint: EMS states: called out for altered mental status and hypoglycemia. on as6 seen pt blood sugar was 59, EMS gave oral glucose gel, blood sugar improved to 116. Coronavirus screen: At this time, the client does not indicate any symptoms associated with coronavirus-19. Ebola Screen: No symptoms or risks identified at this time. Initial Sepsis Screen: Does the patient meet any 2 criteria? No. Patient's initial sepsis screen is negative. Does the patient have a suspected source of infection? No. Patient's initial sepsis screen is negative. Risk Assessment: Do you want to hurt yourself or someone else? Patient reports no desire to harm self or others. Onset of symptoms was March 24, 2021. 02:35 Method Of Arrival: EMS: [facility] as6 02:35 Acuity: SPARKLE 3 as6 Historical: - Allergies: 02:38 Codeine; as6 02:38 Iodine; as6 - Home Meds: 02:38 atorvastatin 20 mg Oral tab [Active]; Humulin R 100 unit/mL cap [Active]; as6 hydrochlorothiazide 50 mg Oral tab 1 tab once daily [Active]; Lantus 100 unit/mL Sub-Q cap [Active]; levothyroxine 100 mcg tab 1 tab once daily [Active]; losartan 100 mg Oral tab [Active]; metformin 1,000 mg Oral tab 1 tab 2 times per day [Active]; - PMHx: 02:38 abd hernia; diabetes mellitus; Hypercholesterolemia; Hypertensive disorder; as6 - Immunization history:: Client reports receiving the 2nd dose of the Covid vaccine, pfizer. - Social history:: Smoking status: Patient denies any tobacco usage or history of. Screenin:41 Abuse screen: Denies threats or abuse. Denies injuries from another. Nutritional as6 screening: No deficits noted. Nutritional screening: No deficits noted. Tuberculosis screening: No symptoms or risk factors identified. Fall Risk None identified. Assessment: 02:42 General: Appears in no apparent distress. Pain: Complains of pain in back Is chronic. as6 : Reports urinary frequency. 04:19 Reassessment: Patient and/or family updated on plan of care and expected duration. Pain al4 level reassessed. Daughter at bedside. . 05:30 Reassessment: Patient and/or family updated on plan of care and expected duration. Pain al4 level reassessed. 06:25 Reassessment: Patient and/or family updated on plan of care and expected duration. Pain al4 level reassessed. Daughter at bedside. Vital Signs: 02:35 BP 125 / 51; Pulse 91; Resp 21 S; Temp 97.9(TE); Pulse Ox 96% on R/A; Weight 74.84 kg as6 (R); Height 4 ft. 11 in. (149.86 cm) (R); Pain 9/10; 04:10 BP 129 / 41; Pulse 82; Resp 20 S; Pulse Ox 96% on R/A; al4 05:00 BP 121 / 65; Pulse 82; Resp 18; Pulse Ox 98% ; al4 06:00 BP 124 / 60; Pulse 85; Resp 16; Pulse Ox 97% on R/A; al4 02:35 Body Mass Index 33.33 (74.84 kg, 149.86 cm) as6 ED Course: 02:34 Patient arrived in ED. as6 02:34 Miguel Vieira MD is Attending Physician. zay 02:38 Triage completed. as6 02:41 Arm band placed on right wrist. as6 02:41 Placed in gown. Bed in low position. Call light in reach. Side rails up X2. Cardiac as6 monitor on. Pulse ox on. NIBP on. Warm blanket given. 02:43 Agustin Yepez, LUDY is Primary Nurse. as6 02:45 Inserted saline lock: 22 gauge in left antecubital area, using aseptic technique. Blood as6 collected. 02:53 XRAY Chest (1 view) In Process Unspecified. EDMS 03:32 CT Stone Protocol In Process Unspecified. EDMS 04:13 Valdez cath inserted, using sterile technique, 16 Fr., by in, balloon inflated, other al4 with LUDY Velez, Edward Anne, Dr. Vieira. 04:18 Emeterio Mcginnis MD is Referral Physician. zay 04:20 Faustino Barksdale is Hospitalizing Provider. zay 07:47 Primary Nurse role handed off by Agustin Yepez, LUDY bd Administered Medications: 02:48 Drug: D5-1/2 NS 1000 ml Route: IV; Rate: 125 ml/hr; Site: left antecubital; as6 04:24 CANCELLED (Duplicate Order): Cipro (ciprofloxacin) 500 mg PO once zay 05:28 Drug: Cipro (ciprofloxacin) 400 mg Volume: 200 ml; Route: IVPB; Infused Over: 60 mins; as6 Site: left antecubital; 06:30 Follow up: IV Status: Completed infusion al4 05:28 Drug: D50W 50 ml Route: IVP; Site: left antecubital; as6 05:28 CANCELLED (Duplicate Order): D50W 50 ml IVP once; (1 amp) zay 06:29 Drug: Magnesium Sulfate 1 grams Route: IVPB; Infused Over: 30 mins; Site: left al4 antecubital; 07:01 Follow up: IV Status: Completed infusion al4 Outcome: 04:18 Discharge ordered by . zay 04:23 Decision to Hospitalize by Provider. zay 15:14 Patient left the ED. ph Signatures: Dispatcher [employer] EDMS Mel Guan Corey, MD MD cha Hall, Patricia RN RN Agustin Yepez RN RN as6 Freddy Lopez al4 Corrections: (The following items were deleted from the chart) 02:49 02:45 Inserted saline lock: 22 gauge in right antecubital area, using aseptic as6 technique. Blood collected. as6 06:25 06:25 Reassessment: Patient is alert, oriented x 3, equal unlabored respirations, skin al4 warm/dry/pink. al4
[2021-03-24] MEDS ORDERED: CIPROFLOXACIN 400mg IV 0 MG/0 ML BAG IV ONE (05:21)
[2021-03-24] MEDS ORDERED: D50W 25 GM/50 ML SYRINGE IV ONE (05:21)
--- NOTE | 2021-03-24 05:24 | P.HP ---
Certification for Inpatient Patient admitted to: Inpatient With expected LOS: <2 Midnights Patient will require the following post-hospital care: None Practitioner: I am a practitioner with admitting privileges, knowledge of patient current condition, hospital course, and medical plan of care. Services: Services provided to patient in accordance with Admission requirements found in Title 42 Section 412.3 of the Code of Federal Regulations Patient History Date of Service: 03/24/21 Reason for admission: UTI, urinary retention, hypoglycemia History of Present Illness: Ms. Bergman is a 75 yo F with DM, HLD, HTN, hypothyroidism who presents with episode of hypoglycemia and previous diagnosis of UTI. She was diagnosed with a UTI by her PCP and has been taking cefpodoxime since 03/19. She reports dysuria, hesitancy, urgency, urinary retention. Denies fever, nausea, vomiting, diarrhea. At home, her sister noticed that she was talking and not making any sense. She checked her blood sugar and it was 59. They called EMS who administered oral glucose and her BG improved to 116. She is on insulin and metformin at home. At bedside, she is alert and oriented and able to answer questions. She says she does not remember the episode with her sister. WBC 15.3 Hgb 10.8 Na 135 K 3.2 BUN 22 Cr 1.39 GFR 37 Allergies codeine Allergy (Unverified 01/31/14 17:15) Unknown iodine Allergy (Unverified 01/31/14 17:15) Unknown - Past Medical/Surgical History -: DM -: HLD -: hypothyroidism -: HTN -: neuropathy -: sugar -: back surgery -: hernia repair - Family History Family History: Reviewed- Non-Contributory - Social History Smoking Status: Never smoker Alcohol use: No CD- Drugs: No Caffeine use: Yes Place of Residence: Home Review of Systems 10-point ROS is otherwise unremarkable General: Unremarkable Eyes: Unremarkable ENT: Unremarkable Respiratory: Unremarkable Cardiovascular: Unremarkable Gastrointestinal: Unremarkable Genitourinary: Dysuria, Urgency, Retention, As per HPI Musculoskeletal: Unremarkable Integumentary: Unremarkable Neurological: Confusion Physical Examination - Physical Exam General: Alert, In no apparent distress HEENT: Atraumatic, PERRLA, Mucous membr. moist/pink, EOMI, Sclerae nonicteric Neck: Supple, 2+ carotid pulse no bruit, No LAD, Without JVD or thyroid abnormality Respiratory: Clear to auscultation bilaterally, Normal air movement Cardiovascular: Regular rate/rhythm, Normal S1 S2 Gastrointestinal: Normal bowel sounds, No tenderness Musculoskeletal: No tenderness Integumentary: No rashes Neurological: Normal speech, Normal strength at 5/5 x4 extr, Normal tone, Normal affect Lymphatics: No axilla or inguinal lymphadenopathy Urinary: Brewer catheter - Studies Laboratory Data (last 24 hrs) 03/24/21 02:45: PT 11.7, INR 1.02 03/24/21 02:45: WBC 15.30 H D, Hgb 10.8 L, Hct 33.1 L, Plt Count 208 03/24/21 02:45: Sodium 135 L, Potassium 3.2 L, BUN 22 H, Creatinine 1.39 H, Glucose 80, Total Bilirubin 0.3, AST 12 L, ALT 18, Alkaline Phosphatase 62 Assessment and Plan - Problems (Diagnosis) (1) UTI (urinary tract infection) Current Visit: Yes Status: Acute Qualifiers: Urinary tract infection type: site unspecified Hematuria presence: without hematuria Qualified Code(s): N39.0 - Urinary tract infection, site not specifi ed (2) Urinary retention Current Visit: Yes Status: Acute (3) T2DM (type 2 diabetes mellitus) Current Visit: Yes Status: Acute Qualifiers: Diabetes mellitus half-way insulin use: with termite technician use Diabetes mellitus complication status: with hypoglycemia Diabetes mellitus complication detail: without coma Qualified Code(s): E11.649 - Type 2 diabetes mellitus with hypoglycemia without coma; Z79.4 - medical terminologist (current) use of insulin (4) HLD (hyperlipidemia) Current Visit: Yes Status: Chronic Qualifiers: Hyperlipidemia type: unspecified Qualified Code(s): E78.5 - Hyperlipidemia, unspecified (5) HTN (hypertension) Current Visit: Yes Status: Chronic Qualifiers: Hypertension type: primary hypertension Qualified Code(s): I10 - Essential (primary) hypertension (6) Hypothyroid Current Visit: Yes Status: Chronic Qualifiers: Hypothyroidism type: unspecified Qualified Code(s): E03.9 - Hypothyroidism, unspecified - Plan continue IV ciprofloxacin brewer placed UA, urine culture, blood culture pending continue IV D5 1/2 NS, monitor BG frequently, A1c pending anemia workup pending potassium replacement protocol reconcile home medications DVT ppx Discharge Plan: Home Plan to discharge in: 48 Hours - Advance Directives Does patient have a Living Will: No Does patient have a Durable POA for Healthcare: No - Code Status/Comfort Care Code Status Assessed: Yes (full code ) Critical Care: No Time Spent Managing Pts Care (In Minutes): 70
[2021-03-24] MEDS ORDERED: ONDANSETRON 4 MG/2 ML VIAL IV PRN (05:31)
[2021-03-24] MEDS ORDERED: D5 0.45 NS 1,000 ML IV SCH (05:31)
[2021-03-24 05:57] LABS: Magnesium 1.4
[2021-03-24] MEDS: CIPROFLOXACIN 400mg IV 400 MG/200 ML BAG IV SCH ×2 (06:00→17:12)
[2021-03-24] MEDS ORDERED: MAGNESIUM SULFATE 1 gm IVPB 1 GM/100 ML BAG IV ONE (06:05)
[2021-03-24] MEDS: INSULIN -REGULAR HUMAN 50 UNIT/0.5 ML ML SQ SCH ×4 (07:30→20:18)
--- NOTE | 2021-03-24 07:59 | RAD REPORT ---
EXAM DESCRIPTION: Phu Single View03/24/2021 2:53 am CLINICAL HISTORY: Cough COMPARISON: March 24 2021 FINDINGS: The lungs appear clear of acute infiltrate. The heart is normal size IMPRESSION: No acute abnormalities displayed
[2021-03-24] MEDS ORDERED: CIPROFLOXACIN 400mg IV 400 MG/200 ML BAG IV ONE (08:39)
[2021-03-24] MEDS ORDERED: ENOXAPARIN 30 MG/0.3 ML SQ ONE (08:39)
--- NOTE | 2021-03-24 08:58 | EKG ---
Test Date: 2021-03-24 Test Time: 02:52:25 Dust Mixer: DRU MEASUREMENT RESULTS: Intervals: Rate: 84 WV: 162 QRSD: 74 QT: 434 QTc: 512 [place]: P: 48 WV: 162 QRS: 16 T: 56 INTERPRETIVE STATEMENTS: Normal sinus rhythm Nonspecific T wave abnormality Abnormal ECG Compared to ECG 03/18/2021 18:52:47 No significant changes Electronically Signed On 03-24-21 08:57:16 LOAN UNDERWRITER by Rock Langley
[2021-03-24] MEDS: ENOXAPARIN 30 MG/0.3 ML SQ SCH (09:00)
[2021-03-24 09:49] VITALS: BMI 33.3
[2021-03-24] MEDS ORDERED: INSULIN -REGULAR HUMAN 50 UNIT/0.5 ML ML ONE (12:43)
[2021-03-24] MEDS ORDERED: D5 0.45 NS 1,000 ML IV ONE (12:43)
[2021-03-24 12:59] LABS: SARS-COV-2 RT PCR NEGATIVE (NEGATIVE)
[2021-03-24] MEDS ORDERED: NA CHLORIDE 0.9% 1,000 ML ONE (14:04)
--- NOTE | 2021-03-24 14:35 | RAD REPORT ---
EXAM DESCRIPTION: US - Renal Ultrasound-Complete - 03/24/2021 2:19 pm CLINICAL HISTORY: [place] COMPARISON: Stone Protocol dated 03/24/2021 FINDINGS: The right kidney measures 11.6 x 4.8 x 4.2 cm. The left kidney measures 11.0 x 5.3 x 4.3 cm. Renal cortical thickness and echogenicity are normal. No hydronephrosis or suspicious renal mass. A 13 millimeter simple cyst is present lateral right kidney. Urinary bladder fully contracted around a Valdez catheter. IMPRESSION: No hydronephrosis or suspicious renal mass. Bladder fully contracted around a Valdez catheter.
--- NOTE | 2021-03-24 14:49 | RAD REPORT ---
EXAM DESCRIPTION: CT - Stone Protocol - 03/24/2021 5:23 am CLINICAL HISTORY: ABD PAIN COMPARISON: None Available. TECHNIQUE: CT of the abdomen and pelvis without IV contrast. Evaluation of the solid organs and vasc ulature is suboptimal due to lack of IV contrast. This exam was performed according to our department al dose-optimization program, which includes automated exposure control, adjustment of the mA and/or kV according to patient size and/or use of iterative reconstruction technique. FINDINGS: Lung Bases: The visualized lung bases are clear. Bones: Multilevel endplate spondylosis and facet arthropathy. Osteoarthritic change of the hips. Abdomen: Liver: The liver has normal size and density. Gallbladder: Prior cholecystectomy. Spleen, Pancreas, and Adrenal Glands: The spleen, pancreas, and adrenal glands are unremarkable. Kidneys: The kidneys have normal size without evidence of hydronephrosis. No obstructing ureteral charito culi. Vasculature: Aortoiliac atherosclerosis. IVC is unremarkable. Stomach: The stomach and duodenum have normal course. Duodenal diverticulum. Other: No free intraperitoneal air. No free fluid or lymphadenopathy. Pelvis: Bladder: Distention of the urinary bladder with mild trabeculation. Bowel: No dilated loops of large or small bowel. Large right ventral hernia containing nondilated l oops of small bowel. Scattered diverticula colon. Wall thickening of the cecum. Appendix: Not visualized. Pelvis: Uterus is not enlarged. IMPRESSION: 1. Large right ventral hernia containing nondilated loops of small bowel. 2. Wall thickening of the cecum. This could be seen with nonspecific colitis. Correlation for histo ry of appropriate colorectal cancer screening recommended. Colonoscopy may be beneficial to exclude o ther causes of bowel wall thickening. 3. Distention of the urinary bladder with mild trabeculation. This could be seen with chronic bladd er outlet obstruction or neuromuscular dysfunction. 4. Diverticulosis without evidence of acute diverticulitis. Electronically signed by: Sunny Macias 03/24/2021 3:50 AM ERECTING ENGINEER Due to temporary technical issues with the PACS/Fluency reporting system, reports are being signed by the in house radiologists without review as a courtesy to insure prompt reporting. The interpreting radiologist is fully responsible for the content of the report.
[2021-03-24] MEDS ORDERED: MAGNESIUM OXIDE 400 MG TAB PO ONE (15:19)
[2021-03-24] MEDS ORDERED: POTASSIUM 25 MEQ EFFERV TAB PO ONE (15:19)
[2021-03-24 15:36] VITALS: O2SAT 97
[2021-03-24] MEDS: NA CHLORIDE 0.9% 1,000 ML IV SCH (15:54)
[2021-03-24] MEDS: ACETAMINOPHEN 500 MG TAB PO PRN ×2 (15:58→20:23)
[2021-03-24] MEDS ORDERED: CIPROFLOXACIN 400mg IV 400 MG/200 ML BAG IV SCH (17:00)
[2021-03-25] MEDS: NA CHLORIDE 0.9% 1,000 ML IV SCH ×2 (05:00→10:06)
[2021-03-25 05:53] LABS: Albumin 2.8 g/dL (3.4-5.0); Bilirubin Total 0.3 mg/dL (0.2-1.0); Ferritin 64.3 ng/mL (8-388); Phosphorus 2.4 mg/dL (2.5-4.9); Potassium 4.1 mmol/L (3.5-5.1); Protein, Total 6.1 g/dL (6.4-8.2)
[2021-03-25 05:55] LABS: Absolute Lymphocytes (CBC) 1.5 K/uL (0.7-4.9); Hematocrit 32.7 % (36.0-45.0); Lymphocytes % 19.3 % (15.3-44.8); MPV 9.5 fL (7.6-11.3); RBC Red Blood Cell Count 3.55 M/uL (3.86-4.86)
[2021-03-25] MEDS: CIPROFLOXACIN 400mg IV 400 MG/200 ML BAG IV SCH (06:00)
[2021-03-25 06:25] LABS: Thyroid Stimulating Hormone 3.65 uIU/mL (0.360-3.740)
[2021-03-25] MEDS: INSULIN -REGULAR HUMAN 50 UNIT/0.5 ML ML SQ SCH ×2 (07:30→11:30)
[2021-03-25] MEDS: ENOXAPARIN 30 MG/0.3 ML SQ SCH (09:32)
[2021-03-25] MEDS: POTASS/SODIUM PHOSPHATE 1 PKT POWD.PACK PO SCH ×3 (09:32→12:31)
[2021-03-25] MEDS ORDERED: SOD FERRIC GLUC COMPLX/SUCROSE 250 MG in NA CHLORIDE 0.9% 250 ML IV SCH (12:00)
[2021-03-25] MEDS ORDERED: CYANOCOBALAMIN 1000MCG/ML INJ IM ONE (12:00)
[2021-03-25 12:15] LABS: Magnesium 1.5
[2021-03-25 13:24] VITALS: BP 135/62; TEMP 97
== END 2021-03-25 16:05 | disposition home or self-care (01) ==
LOC: ER 02:32 → ERHOLD 04:37 → INTOOBSV 04:37 → 2ND 15:09
PROVIDERS: ADMIT Hospitalist; ATTEND Hospitalist
DX: E11.649 Type 2 diabetes mellitus with hypoglycemia without coma (principal); N39.0 Urinary tract infection, site not specified; R33.9 Retention of urine, unspecified; E11.40 Type 2 diabetes mellitus with diabetic neuropathy, unspecified; I10 Essential (primary) hypertension; E78.5 Hyperlipidemia, unspecified; E03.9 Hypothyroidism, unspecified; E87.6 Hypokalemia; E83.42 Hypomagnesemia; Z79.4 Long term (current) use of insulin; Z88.6 Allergy status to analgesic agent; Z91.041 Radiographic dye allergy status; Z90.49 Acquired absence of other specified parts of digestive tract; Z20.822 Contact with and (suspected) exposure to COVID-19
CPT/HCPCS: 96365; 93005; 87088; 85025 ×2; 87086; 80048; 36415 ×2; 83735 ×2; 84100; 85610; 80061; 82947 ×9; 80076; 84443; 87077; 87186; 81003; 83036; 84484; 84439; 82728; 82607; 83540; 80053; 83880; 0240U; 82747; 84466; 76377; 74176; 71045; 76770; 51702; 96375; 99285; J3420; J1650 ×2; J3475; J2916; J7799; J7050; J7030 ×3; J0744 ×3; G0378 ×3

== ENCOUNTER 2021-03-27 09:56 | Emergency (ER) | payer OTHER ==
--- OUTSIDE RECORDS SUMMARY | 2021-03-27 10:09 | XMS REPORT | Continuity of Care Document ---
:1945 Author Organization [facility] t Address [address] [place] [address] Care Team Providers Name Role Phone LINDY, [...] Number Effective Date Expiration Date Anahy asher Vurb [id number] 2020spring 00:00:00 MEDICARE PART A [id number] 2000 \\T\\ B 00:00:00 Problems Condition Condition [...] y of both eyes [facility] Senile Senile Disease Active [...] ICD10 ity of 00:00: Diagnosis Term Medical Stitcher Operator Branch Utility Cervicalgi Cervicalgi Disease Active U nivers a a 3-05 ity of 00:00: [place] 00 Medical Branch Encounter Encounter Disease Active Overview: Univers for for 5-23 ICD10 ity of routine routine 00:00: Diagnosis [place] gynecologi gynecologi 00 Term Me dical charito charito Stitcher Operator Branch examinatio examinatio Utility n n Insomnia Insomnia Disease Active Overview: Un concepción 2-26 Formattin ity of 00:00: g of this [place] 00 note Medical might be Branch different from the original. 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 use of use of ICD10 insulin insulin Diagnosis Term Stitcher Operator Utility Essential Essential Disease Active Uni vers hypertensi hypertensi 7-12 it y of on, benign [place] HLD HLD Disease Active Overview: Shira alejo (hyperlipi (hyperlipi 08-25 Formattin ity of demia) demia) 00:00: g of this [place] 00 note Medical might be Branch different from the original. ICD10 Diagnosis Term Stitcher Operator Utility Generalize Generalize Disease Active U nivers [...] Quantity Comments Source Exposure to Not sure [facility] SARS-CoV-2 [place] Medical (event) Branch Alcohol intake 2020-11-25 2020-11-25 Current University of 00:00:00 00:00:00 non-drinker of [facility] alcohol Branch (finding) Tobacco use and 2020-10-21 2020-10-21 Never used Universit y of exposure 00:00:00 00:00:00 [facility] Sex [birth year] Universit y of 00:00:00 00:00:00 [facility] Smoking Status Start Date Stop Date Source Never smoker [facility] Medications Ordered Filled Start Stop Current Ordering Indication Dosage Frequency Signature Comments Components Source Medication Medication Date Date Medication? Clinician (SIG) Name Name tetracaine 2020-02 Yes PRN, Univers (PONTOCAINE 0-14 Starting ity of ) 0.5 % 14:59: on [facility] ophthalmic 00 11/27/20 Medic al drops at 0959, Branch Until Discontinu ed, Routine, Intra-op gentamicin 2020-02 Yes PRN, Univers injection 0-14 Starting ity of 14:59: on [place] [facility] 00 11/27/20 Medical at 0959, [place] Until Discontinu ed, JAYLEN, Intra-op eye block 2020-02 Yes PRN, Univers syringe 11 0-14 Starting ity o f mL 14:59: on [place] [facility] 11/27/20 Medical at 0959, [place] Until Discontinu ed, Intra-op EPINEPHrine 2020-02 Yes PRN, Univer s (PF) 0-14 Starting ity of 1:1,000 (1 14:59: on [place] [facility] mg/mL) 00 11/27/20 Medical (ADRENALIN at 0959, Bran h (PF)) Until injection Discontinu ed, Routine, Intra-op DUOVISC 2020-02 Yes PRN, Univers (DUOVISC 0-14 Starting ity of VISCO 14:59: on [place] [facility] ELASTIC) 3 00 11/27/20 Medic al %-4 %(0.5 at 0959, Branch mL) 1 % Until (0.55 mL) Discontinu intraocular ed, injection Routine, Intra-op tetracaine 2020-02- No PRN, Univer s (PONTOCAINE 0-14 10-14 Starting ity of ) 0.5 % 14:59: 18:15 on [place] [facility] ophthalmic 00 :30 11/27/20 Medic al drops at 0959, Branch Until [facility] 11/27/20 at 1315, Routine, Intra-op gentamicin 2020-02- [...] Routine, DSU Pre-op BD VEO 2020-02 Yes [id number] USE Univ ers INSULIN 0-04 DIRECTED 4 ity of SYR, HALF 00:00: TIMES [place] UNIT, 0.3 00 DAILY Medical mL 31 gauge Branch x 15/64" Syrg BD VEO 2020-02 Yes [id number] USE Univ ers INSULIN 0-04 DIRECTED 4 ity of SYR, HALF 00:00: TIMES [place] UNIT, 0.3 00 DAILY Medical mL 31 gauge Branch x 15/64" Syrg BD VEO 2020-02 Yes [id number] USE Univ ers INSULIN 0-04 DIRECTED 4 [...] Discontinu ed, JAYLEN, Intra-op balanced Yes PRN, [facility] 10-23 Starting ity of no.2 irrig. 14:03: [...] [place] 00 :08 at 0903, Medical Until [facility] Branch 10/23/20 at 1214, JAYLEN, Intra-op balanced 2020- No PRN, [facility] 10-23 Starting ity o f no.2 irrig. [...] [place] 00 :08 at 0903, Medical Until [facility] Branch 10/23/20 at 1214, JAYLEN, Intra-op balanced 2020- No PRN, Univers [facility] 10-23 Starting ity o f no.2 [...] Pre-op lactated 2020- No [facility] mL/hr, ity of [...] Pre-op lactated 2020- No 1000mL [facility] 10-23 mL/hr, ity of [...] 1 [place] as solution 00 :00 dose, [place] Med[facility] l 0.5 mL 10/23/20 at Branch syringe 0715, Routine, DSU Pre-op lactated 2020- No 1000mL at 42 Unive rs ringers IV 10-23 mL/hr, ity of infusion 12:15: 12:22 1,000 mL, [place] as 1,000 mL 00 :00 IV Medical Infusion, Branch ONCE, 1 dose, Niya 10/23/20 at 0715, Routine, DSU Pre-op BD VEO 2020-0 Yes [id number] USE Univ ers INSULIN 8-19 DIRECTED 4 ity of SYRINGE UF 00:00: TIMES [place] 0.3 mL DAILY Medical gauge x Branch 15/64" Syrg BD VEO 2020-0 Yes [id number] USE Univ ers INSULIN 8-19 DIRECTED 4 ity of SYRINGE UF 00:00: TIMES [place] 0.3 mL DAILY Medical gauge x Branch 15/64" Syrg BD VEO 2020-0 Yes [id number] USE Univ ers INSULIN 8-19 DIRECTED 4 ity of SYRINGE UF 00:00: TIMES [place] 0.3 mL DAILY Medical gauge x Branch 15/64" Syrg BD VEO 2020-0 Yes [id number] USE Univ ers INSULIN 8-19 DIRECTED 4 ity of SYRINGE UF 00:00: TIMES [place] 0.3 mL DAILY Medical gauge x Branch 15/64" Syrg BD VEO 2020-0 Yes [id number] USE Univ ers INSULIN 8-19 DIRECTED 4 ity of SYRINGE UF 00:00: TIMES [place] 0.3 mL DAILY Medical gauge x Branch 15/64" Syrg BD VEO 2020-0 Yes [id number] USE Univ ers INSULIN 8-19 DIRECTED 4 ity of SYRINGE UF 00:00: TIMES [place] 0.3 mL 31 DAILY Medical gauge x Branch 15/64" Syrg BD VEO 2020-0 Yes [id number] USE Univ ers INSULIN 8-19 DIRECTED 4 ity of SYRINGE UF 00:00: TIMES [place] 0.3 mL 31 DAILY Medical gauge x Branch 15/64" Syrg BD VEO 2020-0 Yes [id number] USE Univ ers INSULIN 8-19 DIRECTED 4 ity of SYRINGE UF 00:00: TIMES [place] 0.3 mL DAILY Medical gauge x Branch 15/64" Syrg BD VEO 2020-0 Yes [id number] USE Univ ers INSULIN 8-19 DIRECTED 4 ity of SYRINGE UF 00:00: TIMES [place] 0.3 mL DAILY Medical gauge x Branch 15/64" Syrg BD VEO 2020-0 Yes [id number] USE Univ ers INSULIN 8-19 DIRECTED 4 ity of SYRINGE UF 00:00: TIMES [place] 0.3 mL DAILY Medical gauge x Branch 15/64" Syrg BD VEO 2020-0 Yes [id number] USE Univ ers INSULIN 8-19 DIRECTED 4 ity of SYRINGE UF 00:00: TIMES [place] 0.3 mL DAILY Medical gauge x Branch 15/64" Syrg BD VEO 2020-0 Yes [id number] USE Univ ers INSULIN 8-19 DIRECTED 4 ity of SYRINGE UF 00:00: TIMES [place] 0.3 mL 31 DAILY Medical gauge x Branch 15/64" Syrg BD VEO 2020-0 Yes [id number] USE Univ ers INSULIN 8-19 DIRECTED 4 ity of SYRINGE UF 00:00: TIMES [place] 0.3 mL DAILY Medical gauge x Branch 15/64" Syrg BD VEO 2020-0 Yes [id number] USE Univ ers INSULIN 8-19 DIRECTED 4 ity of SYRINGE UF 00:00: TIMES [place] 0.3 mL 31 DAILY Medical gauge x Branch 15/64" Syrg BD VEO 2020-0 Yes [id number] USE Univ ers INSULIN 8-19 DIRECTED 4 ity of SYRINGE UF 00:00: TIMES [place] 0.3 mL 31 DAILY Medical gauge x Branch 15/64" Syrg BD VEO 2020-0 Yes [id number] USE Univ ers INSULIN 8-19 DIRECTED 4 ity of SYRINGE UF 00:00: TIMES [place] 0.3 mL 31 00 DAILY Medical gauge x Branch " Syrg EUTHYROX 2020-0 Yes [id number] TAKE 1 Un concepción 125 mcg 7-30 TABLET BY ity of tablet 00:00: MOUTH ONCE [place] 00 DAILY IN [facility] MORNING EUTHYROX 2020-0 Yes [id number] TAKE 1 Un concepción 125 mcg 7-30 TABLET BY ity of tablet 00:00: MOUTH ONCE [place] 00 DAILY IN [facility] MORNING EUTHYROX 2020-0 Yes [id number] TAKE 1 Un concepción 125 mcg 7-30 TABLET BY ity of tablet 00:00: MOUTH ONCE [place] 00 DAILY IN [facility] MORNING EUTHYROX 2020-0 Yes [id number] TAKE 1 Un concepción 125 mcg 7-30 TABLET BY ity of tablet 00:00: MOUTH ONCE [place] 00 DAILY IN [facility] MORNING EUTHYROX 2020-0 Yes [id number] TAKE 1 Un concepción 125 mcg 7-30 TABLET BY ity of tablet 00:00: MOUTH ONCE [place] 00 DAILY IN [facility] MORNING EUTHYROX 2020-0 Yes [id number] TAKE 1 Un concepción 125 mcg 7-30 TABLET BY ity of tablet 00:00: MOUTH ONCE [place] 00 DAILY IN [facility] MORNING EUTHYROX 2020-0 Yes [id number] TAKE 1 Un concepción 125 mcg 7-30 TABLET BY ity of tablet 00:00: MOUTH ONCE [place] 00 DAILY IN [facility] MORNING EUTHYROX 2020-0 Yes [id number] TAKE 1 Un concepción 125 mcg 7-30 TABLET BY ity of tablet 00:00: MOUTH ONCE [place] 00 DAILY IN [facility] MORNING EUTHYROX 2020-0 Yes [id number] TAKE 1 Un concepción 125 mcg 7-30 TABLET BY ity of tablet 00:00: MOUTH ONCE [place] 00 DAILY IN [facility] MORNING EUTHYROX 2020-0 Yes [id number] TAKE 1 Un concepción 125 mcg 7-30 TABLET BY ity of tablet 00:00: MOUTH ONCE [place] 00 DAILY IN [facility] MORNING EUTHYROX 2020-0 Yes [id number] TAKE 1 Un concepción 125 mcg 7-30 TABLET BY ity of tablet 00:00: MOUTH ONCE [place] 00 DAILY IN [facility] MORNING EUTHYROX 2020-0 Yes [id number] TAKE 1 Un concepción 125 mcg 7-30 TABLET BY ity of tablet 00:00: MOUTH ONCE [place] 00 DAILY IN [facility] MORNING EUTHYROX 2020-0 Yes [id number] TAKE 1 Un concepción 125 mcg 7-30 TABLET BY ity of tablet 00:00: MOUTH ONCE [place] 00 DAILY IN [facility] MORNING EUTHYROX 2020-0 Yes [id number] TAKE 1 Un concepción 125 mcg 7-30 TABLET BY ity of tablet 00:00: MOUTH ONCE [place] 00 DAILY IN [facility] [place] MORNING EUTHYROX 2020-0 Yes [id number] TAKE 1 Un concepción 125 mcg 7-30 TABLET BY ity of tablet 00:00: MOUTH ONCE [place] 00 DAILY IN [facility] MORNING EUTHYROX 2020-0 Yes [id number] TAKE 1 Un concepción 125 mcg 7-30 TABLET BY ity of tablet 00:00: MOUTH ONCE [place] 00 DAILY IN [facility] MORNING EUTHYROX 2020-0 Yes [id number] TAKE 1 Un concepción 125 mcg 7-30 TABLET BY ity of tablet 00:00: MOUTH ONCE [place] 00 DAILY IN [facility] [place] MORNING PREGABALIN 2020-0 Yes [id number] Take 1 Univers 300 mg 6-05 capsule by ity of capsule 00:00: mouth [place] 00 twice Medical daily Branch PREGABALIN 2020-0 Yes [id number] Take 1 Univers 300 mg 6-05 capsule by ity of capsule 00:00: mouth [place] 00 twice Medical daily Branch PREGABALIN 2020-0 Yes [id number] Take 1 Univers 300 mg 6-05 capsule by ity of capsule 00:00: mouth [place] 00 twice Medical daily Branch PREGABALIN 2020-0 Yes [id number] Take 1 Univers 300 mg 6-05 capsule by ity of capsule 00:00: mouth [place] 00 twice Medical daily Branch PREGABALIN 2020-0 Yes [id number] Take 1 Univers 300 mg 6-05 capsule by ity of capsule 00:00: mouth [place] 00 twice Medical daily Branch PREGABALIN 2020-0 Yes [id number] Take 1 Univers 300 mg 6-05 capsule by ity of capsule 00:00: mouth [place] 00 twice Medical daily Branch PREGABALIN 2020-0 Yes [id number] Take 1 Univers 300 mg 6-05 capsule by ity of capsule 00:00: mouth [place] 00 twice Medical daily Branch PREGABALIN 2020-0 Yes [id number] Take 1 Univers 300 mg 6-05 capsule by ity of capsule 00:00: mouth twice Medical daily Branch PREGABALIN 2020-0 Yes [id number] Take 1 Univers 300 mg 6-05 capsule by ity of capsule 00:00: mouth twice Medical daily Branch PREGABALIN 2020-0 Yes [id number] Take 1 Univers 300 mg 6-05 capsule by ity of capsule 00:00: mouth twice Medical daily Branch PREGABALIN 2020-0 Yes [id number] Take 1 Univers 300 mg 6-05 capsule by ity of capsule 00:00: mouth twice Medical daily Branch PREGABALIN 2020-0 Yes [id number] Take 1 Univers 300 mg 6-05 capsule by ity of capsule 00:00: mouth twice Medical daily Branch PREGABALIN 2020-0 Yes [id number] Take 1 Univers 300 mg 6-05 capsule by ity of capsule 00:00: mouth twice Medical daily Branch PREGABALIN 2020-0 Yes [id number] Take 1 Univers 300 mg 6-05 capsule by ity of capsule 00:00: mouth twice Medical daily Branch PREGABALIN 2020-0 Yes [id number] Take 1 Univers 300 mg 6-05 capsule by ity of capsule 00:00: mouth twice Medical daily Branch PREGABALIN 2020-0 Yes [id number] Take 1 Univers 300 mg 6-05 capsule by ity of capsule 00:00: mouth twice Medical daily Branch PREGABALIN 2020-0 Yes [id number] Take 1 Univers 300 mg 6-05 capsule by ity of capsule 00:00: mouth twice Medical daily Branch PREGABALIN 2020-0 Yes [id number] Take 1 Univers 300 mg 6-05 capsule by ity of capsule 00:00: mouth twice Medical daily Branch PREGABALIN 2020-0 Yes [id number] Take 1 Univers 300 mg 6-05 capsule by ity of capsule 00:00: mouth twice Medical daily Branch PREGABALIN 2020-0 Yes [id number] Take 1 Univers 300 mg 6-05 capsule by ity of capsule 00:00: mouth twice Medical daily Branch PREGABALIN 2020-0 Yes [id number] Take 1 Univers 300 mg 6-05 capsule by ity of capsule 00:00: mouth twice Medical daily Branch PREGABALIN 2020-0 Yes [id number] Take 1 Univers 300 mg 6-05 capsule by ity of capsule 00:00: mouth 00 twice Medical daily Branch METFORMIN 2020-0 Yes [id number] TAKE 1 U nivers 1,000 mg 3-19 TABLET BY ity of tablet 00:00: MOUTH 00 TWICE Medical DAILY WITH Branch MEALS FOR DIABETES METFORMIN 2020-0 Yes [id number] TAKE 1 U nivers 1,000 mg 3-19 TABLET BY ity of tablet 00:00: MOUTH 00 TWICE Medical DAILY WITH Branch MEALS FOR DIABETES METFORMIN 2020-0 Yes [id number] TAKE 1 U nivers 1,000 mg 3-19 TABLET BY ity of tablet 00:00: MOUTH 00 TWICE Medical DAILY WITH Branch MEALS FOR DIABETES METFORMIN 2020-0 Yes [id number] TAKE 1 U nivers 1,000 mg 3-19 TABLET BY ity of tablet 00:00: MOUTH 00 TWICE Medical DAILY WITH Branch MEALS FOR DIABETES METFORMIN 2020-0 Yes [id number] TAKE 1 U nivers 1,000 mg 3-19 TABLET BY ity of tablet 00:00: MOUTH TWICE Medical DAILY WITH Branch MEALS FOR DIABETES METFORMIN 2020-0 Yes [id number] TAKE 1 U nivers 1,000 mg 3-19 TABLET BY ity of tablet 00:00: MOUTH TWICE Medical DAILY WITH Branch MEALS FOR DIABETES METFORMIN 2020-0 Yes [id number] TAKE 1 U nivers 1,000 mg 3-19 TABLET BY ity of tablet 00:00: MOUTH TWICE Medical DAILY WITH Branch MEALS FOR DIABETES METFORMIN 2020-0 Yes [id number] TAKE 1 U nivers 1,000 mg 3-19 TABLET BY ity of tablet 00:00: MOUTH TWICE Medical DAILY WITH Branch MEALS FOR DIABETES METFORMIN 2020-0 Yes [id number] TAKE 1 U nivers 1,000 mg 3-19 TABLET BY ity of tablet 00:00: MOUTH 00 TWICE Medical DAILY WITH Branch MEALS FOR DIABETES METFORMIN 2020-0 Yes [id number] TAKE 1 U nivers 1,000 mg 3-19 TABLET BY ity of tablet 00:00: MOUTH 00 TWICE Medical DAILY WITH Branch MEALS FOR DIABETES METFORMIN 2020-0 Yes [id number] TAKE 1 U nivers 1,000 mg 3-19 TABLET BY ity of tablet 00:00: MOUTH 00 TWICE Medical DAILY WITH Branch MEALS FOR DIABETES METFORMIN 2020-0 Yes [id number] TAKE 1 U nivers 1,000 mg 3-19 TABLET BY ity of tablet 00:00: MOUTH 00 TWICE Medical DAILY WITH Branch MEALS FOR DIABETES METFORMIN 2020-0 Yes [id number] TAKE 1 U nivers 1,000 mg 3-19 TABLET BY ity of tablet 00:00: MOUTH 00 TWICE Medical DAILY WITH Branch MEALS FOR DIABETES METFORMIN 2020-0 Yes [id number] TAKE 1 U nivers 1,000 mg 3-19 TABLET BY ity of tablet 00:00: MOUTH 00 TWICE Medical DAILY WITH Branch MEALS FOR DIABETES METFORMIN 2020-0 Yes [id number] TAKE 1 U nivers 1,000 mg 3-19 TABLET BY ity of tablet 00:00: MOUTH 00 TWICE Medical DAILY WITH Branch MEALS FOR DIABETES METFORMIN 2020-0 Yes [id number] TAKE 1 U nivers 1,000 mg 3-19 TABLET BY ity of tablet 00:00: MOUTH 00 TWICE Medical DAILY WITH Branch MEALS FOR DIABETES METFORMIN 2020-0 Yes [id number] TAKE 1 U nivers 1,000 mg 3-19 TABLET BY ity of tablet 00:00: MOUTH 00 TWICE Medical DAILY WITH Branch MEALS FOR DIABETES METFORMIN 2020-0 Yes [id number] TAKE 1 U nivers 1,000 mg 3-19 TABLET BY ity of tablet 00:00: MOUTH 00 TWICE Medical DAILY WITH Branch MEALS FOR DIABETES METFORMIN 2020-0 Yes [id number] TAKE 1 U nivers 1,000 mg 3-19 TABLET BY ity of tablet 00:00: MOUTH 00 TWICE Medical DAILY WITH Branch MEALS FOR DIABETES METFORMIN 2020-0 Yes [id number] TAKE 1 U nivers 1,000 mg 3-19 TABLET BY ity of tablet 00:00: MOUTH 00 TWICE Medical DAILY WITH Branch MEALS FOR DIABETES METFORMIN 2020-0 Yes [id number] TAKE 1 U nivers 1,000 mg 3-19 TABLET BY ity of tablet 00:00: MOUTH 00 TWICE Medical DAILY WITH Branch MEALS FOR DIABETES METFORMIN 2020-0 Yes [id number] TAKE 1 U nivers 1,000 mg 3-19 TABLET BY ity of tablet 00:00: MOUTH 00 TWICE Medical DAILY WITH Branch MEALS FOR DIABETES METFORMIN 2020-0 Yes [id number] TAKE 1 U nivers 1,000 mg 3-19 TABLET BY ity of tablet 00:00: MOUTH 00 TWICE Medical DAILY WITH Branch MEALS FOR DIABETES METFORMIN 2020-0 Yes [id number] TAKE 1 U nivers 1,000 mg 3-19 TABLET BY ity of tablet 00:00: MOUTH TWICE Medical DAILY WITH Branch MEALS FOR DIABETES METFORMIN 2020-0 Yes [id number] TAKE 1 U nivers 1,000 mg 3-19 TABLET BY ity of tablet 00:00: MOUTH TWICE Medical DAILY WITH Branch MEALS FOR DIABETES blood sugar 2020-0 Yes [id number] Check Univers diagnostic 3-06 sugars 2-3 ity of strip 00:00: times a day. Dx Medical Code Branch E11.9. AccuChek guide me brand. blood sugar 2020-0 Yes [id number] Check Univers diagnostic 3-06 sugars 2-3 ity of strip 00:00: times a day. Dx Medical Code Branch E11.9. AccuChek guide me brand. blood sugar 2020-0 Yes [id number] Check Univers diagnostic 3-06 sugars 2-3 ity of strip 00:00: times a day. Dx Medical Code Branch E11.9. AccuChek guide me brand. blood sugar 2020-0 Yes [id number] Check Univers diagnostic 3-06 sugars 2-3 ity of strip 00:00: times a day. Dx Medical Code Branch E11.9. AccuChek guide me brand. blood sugar 2020-0 Yes [id number] Check Univers diagnostic 3-06 sugars 2-3 ity of strip 00:00: times a day. Dx Medical Code Branch E11.9. AccuChek guide me brand. blood sugar 2020-0 Yes [id number] Check Univers diagnostic 3-06 sugars 2-3 ity of strip 00:00: times a day. Dx Medical Code Branch E11.9. AccuChek guide me brand. blood sugar 2020-0 Yes [id number] Check Univers diagnostic 3-06 sugars 2-3 ity of strip 00:00: times a day. Dx Medical Code Branch E11.9. AccuChek guide me brand. blood sugar 2020-0 Yes [id number] Check Univers diagnostic 3-06 sugars 2-3 ity of strip 00:00: times a day. Dx Medical Code Branch E11.9. AccuChek guide me brand. blood sugar 2020-0 Yes [id number] Check Univers diagnostic 3-06 sugars 2-3 ity of strip 00:00: times a day. Dx Medical Code Branch E11.9. AccuChek guide me brand. blood sugar 2020-0 Yes [id number] Check Univers diagnostic 3-06 sugars 2-3 ity of strip 00:00: times a day. Dx Medical Code Branch E11.9. AccuChek guide me brand. blood sugar 2020-0 Yes [id number] Check Univers diagnostic 3-06 sugars 2-3 ity of strip 00:00: times a day. Dx Medical Code Branch E11.9. AccuChek guide me brand. blood sugar 2020-0 Yes [id number] Check Univers diagnostic 3-06 sugars 2-3 ity of strip 00:00: times a day. Dx Medical Code Branch E11.9. AccuChek guide me brand. blood sugar 2020-0 Yes [id number] Check Univers diagnostic 3-06 sugars 2-3 ity of strip 00:00: times a day. Dx Medical Code Branch E11.9. AccuChek guide me brand. blood sugar 2020-0 Yes [id number] Check Univers diagnostic 3-06 sugars 2-3 ity of strip 00:00: times a day. Dx Medical Code Branch E11.9. AccuChek guide me brand. blood sugar 2020-0 Yes [id number] Check Univers diagnostic 3-06 sugars 2-3 ity of strip 00:00: times a day. Dx Medical Code Branch E11.9. AccuChek guide me brand. blood sugar 2020-0 Yes [id number] Check Univers diagnostic 3-06 sugars 2-3 ity of strip 00:00: times a day. Dx Medical Code Branch E11.9. AccuChek guide me brand. blood sugar 2020-0 Yes [id number] Check Univers diagnostic 3-06 sugars 2-3 ity of strip 00:00: times a day. Dx Medical Code Branch E11.9. AccuChek guide me brand. blood sugar 2020-0 Yes [id number] Check Univers diagnostic 3-06 sugars 2-3 ity of strip 00:00: times a day. Dx Medical Code Branch E11.9. AccuChek guide me brand. blood sugar 2020-0 Yes [id number] Check Univers diagnostic 3-06 sugars 2-3 ity of strip 00:00: times a day. Dx Medical Code Branch E11.9. AccuChek guide me brand. blood sugar 2020-0 Yes [id number] Check Univers diagnostic 3-06 sugars 2-3 ity of strip 00:00: times a [place] 00 day. Dx Medical Code Branch E11.9. AccuChek guide me brand. blood sugar 2020-0 Yes [id number] Check Univers diagnostic 3-06 sugars 2-3 ity of strip 00:00: times a day. Dx Medical Code Branch E11.9. AccuChek guide me brand. blood sugar 2020-0 Yes [id number] Check Univers diagnostic 3-06 sugars 2-3 ity of strip 00:00: times a 00 day. Dx Medical Code Branch E11.9. AccuChek guide me brand. blood sugar 2020-0 Yes [id number] Check Univers diagnostic 3-06 sugars 2-3 ity of strip 00:00: times a day. Dx Medical Code Branch E11.9. AccuChek guide me brand. blood sugar 2020-0 Yes [id number] Check Univers diagnostic 3-06 sugars 2-3 ity of strip 00:00: times a day. Dx Medical Code Branch E11.9. AccuChek guide me brand. blood sugar 2020-0 Yes [id number] Check Univers diagnostic 3-06 sugars 2-3 ity of strip 00:00: times a day. Dx Medical Code Branch E11.9. AccuChek guide me brand. blood sugar 2020-0 Yes [id number] Check Univers diagnostic 3-06 sugars 2-3 ity of strip 00:00: times a day. Dx Medical Code Branch E11.9. AccuChek guide me brand. blood sugar 2020-0 Yes [id number] Check Univers diagnostic 3-06 sugars 2-3 ity of strip 00:00: times a 00 day. Dx Medical Code Branch E11.9. AccuChek guide me brand. blood sugar 2020-0 Yes [id number] Check Univers diagnostic 3-06 sugars 2-3 ity of strip 00:00: times a [place] day. Dx Medical Code Branch E11.9. AccuChek guide me brand. blood sugar 2020-0 Yes [id number] Check Univers diagnostic 3-06 sugars 2-3 ity of strip 00:00: times a 00 day. Dx Medical Code Branch E11.9. AccuChek guide me brand. pregabalin 2019-1 Yes [id number] 300mg Take 1 Univers 300 mg 2-02 capsule by ity of capsule 00:00: mouth 2 [place] (two) Medical times Branch daily. pregabalin 2018-02 Yes [id number] 300mg Take 1 Univers 300 mg 2-02 capsule by ity of capsule 00:00: mouth 2 00 (two) Medical times Branch daily. pregabalin 2018-02 Yes [id number] 300mg Take 1 Univers 300 mg 2-02 capsule by ity of capsule 00:00: mouth 2 [place] (two) Medical times Branch daily. pregabalin 2018-02 Yes [id number] 300mg Take 1 Univers 300 mg 2-02 capsule by ity of capsule 00:00: mouth 2 [place] (two) Medical times Branch daily. pregabalin 2018-02 Yes [id number] 300mg Take 1 Univers 300 mg 2-02 capsule by ity of capsule 00:00: mouth 2 [place] 00 (two) Medical times Branch daily. pregabalin 2018-02 Yes [id number] 300mg Take 1 Univers 300 mg 2-02 capsule by ity of capsule 00:00: mouth 2 [place] (two) Medical times Branch daily. pregabalin 2018-02 Yes [id number] 300mg Take 1 Univers 300 mg 2-02 capsule by ity of capsule 00:00: mouth 2 [place] (two) Medical times Branch daily. pregabalin 2018-02 Yes [id number] 300mg Take 1 Univers 300 mg 2-02 capsule by ity of capsule 00:00: mouth 2 [place] 00 (two) Medical times Branch daily. pregabalin 2018-02 2020- No [id number] 300mg Take 1 Univers 300 mg 2-02 06-05 capsule by ity of capsule 00:00: 00:00 mouth 2 [place] 00 :00 (two) Medical times Branch daily. losartan 2018-02 Yes [id number] 100mg Take 1 Uni vers 100 mg 1-08 tablet by ity of tablet 00:00: mouth [place] 00 daily. For Medical blood Branch pressure atorvastati 2018-02 Yes [id number] 20mg Take 1 Univers n (LIPITOR) 1-08 tablet by ity of 20 mg 00:00: mouth at [place] tablet 00 bedtime. Medical For Branch cholestero l insulin 2018-02 Yes [id number] 30U inject 30 Univers glargine 1-08 Units ity of (LANTUS 00:00: under the [place] U-100 00 skin at Medical INSULIN) bedtime. Branch 100 unit/mL injection hydroCHLORO 2018-02 Yes [id number] 50mg Take 1 [facility] thiazide 50 1-08 tablet by [facility] of mg tablet 00:00: mouth [place] 00 daily. For Medical blood Branch pressure. losartan 2018-02 Yes [id number] 100mg Take 1 [facility] vers 100 mg 1-08 tablet by [facility] of tablet 00:00: mouth [place] 00 daily. For Medical blood Branch pressure atorvastati 2018-02 Yes [id number] 20mg Take 1 [facility] (LIPITOR) 1-08 tablet by it[facility] of 20 mg 00:00: mouth at [place] tablet 00 bedtime. Medical For [facility] cholestero l insulin 2018-02 Yes [id number] 30U inject 30 [facility] glargine 1-08 Units ity of (LANTUS 00:00: under the [place] U-100 00 skin at Medical INSULIN) bedtime. Branch 100 unit/mL injection hydroCHLORO 2018-02 Yes [id number] 50mg Take 1 [facility] n[facility] thiazide 50 1-08 tablet by [facility]y of mg tablet 00:00: mouth [place] 00 daily. For Medical blood Branch pressure. losartan 2018-02 Yes [id number] 100mg Take 1 [facility] vers 100 mg 1-08 tablet by [facility] of tablet 00:00: mouth [place] 00 daily. For Medical blood Branch pressure atorvastati 2018-02 Yes [id number] 20mg Take 1 [facility] (LIPITOR) 1-08 tablet by ity of 20 mg 00:00: mouth at [place] tablet 00 bedtime. Medical For [facility] cholestero l insulin 2018-02 Yes [id number] 30U inject 30 [facility] glargine 1-08 Units ity of (LANTUS 00:00: under the [place] U-100 00 skin at Medical INSULIN) bedtime. Branch 100 unit/mL injection hydroCHLORO 2018-02 Yes [id number] 50mg Take 1 [facility] thiazide 50 1-08 tablet by [facility] of mg tablet 00:00: mouth [place] 00 daily. For Medical blood Branch pressure. losartan 2018-02 Yes [id number] 100mg Take 1 [facility] vers 100 mg 1-08 tablet by [facility] of tablet 00:00: mouth [place] 00 daily. For Medical blood Branch pressure atorvastati 2018-02 Yes [id number] 20mg Take 1 [facility] (LIPITOR) 1-08 tablet by ity of 20 mg 00:00: mouth at [place] tablet 00 bedtime. Medical For [facility] cholestero l insulin 2018-02 Yes [id number] 30U inject 30 [facility] glargine 1-08 Units ity of (LANTUS 00:00: under the [place] U-100 00 skin at Medical INSULIN) bedtime. Branch 100 unit/mL injection hydroCHLORO 2018-02 Yes [id number] 50mg Take 1 [facility] n[facility] thiazide 50 1-08 tablet by [facility] of mg tablet 00:00: mouth [place] 00 daily. For Medical blood Branch pressure. losartan 2018-02 Yes [id number] 100mg Take 1 [facility] vers 100 mg 1-08 tablet by [facility] of tablet 00:00: mouth [place] 00 daily. For Medical blood Branch pressure atorvastati 2018-02 Yes [id number] 20mg Take 1 [facility] (LIPITOR) 1-08 tablet by ity of 20 mg 00:00: mouth at [place] tablet 00 bedtime. Medical For [facility] cholestero l insulin 2018-02 Yes [id number] 30U inject 30 [facility] glargine 1-08 Units ity of (LANTUS 00:00: under the [place] U-100 00 skin at Medical INSULIN) bedtime. Branch 100 unit/mL injection hydroCHLORO 2018-02 Yes [id number] 50mg Take 1 [facility] thiazide 50 1-08 tablet by [facility] of mg tablet 00:00: mouth [place] 00 daily. For Medical blood Branch pressure. losartan 2018-02 Yes [id number] 100mg Take 1 [facility] vers 100 mg 1-08 tablet by [facility] of tablet 00:00: mouth [place] 00 daily. For Medical blood Branch pressure atorvastati 2018-02 Yes [id number] 20mg Take 1 [facility] (LIPITOR) 1-08 tablet by [facility] of 20 mg 00:00: mouth at [place] tablet 00 bedtime. Medical For [facility] cholestero l insulin 2018-02 Yes [id number] 30U inject 30 [facility] glargine 1-08 Units ity of (LANTUS 00:00: under the [place] U-100 00 skin at Medical INSULIN) bedtime. Branch 100 unit/mL injection hydroCHLORO 2018-02 Yes [id number] 50mg Take 1 [facility] n[facility] thiazide 50 1-08 tablet by ity of mg tablet 00:00: mouth [place] 00 daily. For Medical blood Branch pressure. losartan 2018-02 Yes [id number] 100mg Take 1 [facility] vers 100 mg 1-08 tablet by [facility] of tablet 00:00: mouth [place] 00 daily. For Medical blood Branch pressure atorvastati 2018-02 Yes [id number] 20mg Take 1 [facility] (LIPITOR) 1-08 tablet by ity of 20 mg 00:00: mouth at [place] tablet 00 bedtime. Medical For [facility] cholestero l insulin 2018-02 Yes [id number] 30U inject 30 [facility] glargine 1-08 Units ity of (LANTUS 00:00: under the [place] U-100 00 skin at Medical INSULIN) bedtime. Branch 100 unit/mL injection hydroCHLORO 2018-02 Yes [id number] 50mg Take 1 [facility] n[facility] thiazide 50 1-08 tablet by [facility]y of mg tablet 00:00: mouth [place] 00 daily. For Medical blood Branch pressure. losartan 2018-02 Yes [id number] 100mg Take 1 [facility] vers 100 mg 1-08 tablet by [facility] of tablet 00:00: mouth [place] 00 daily. For Medical blood Branch pressure atorvastati 2018-02 Yes [id number] 20mg Take 1 [facility] (LIPITOR) 1-08 tablet by ity of 20 mg 00:00: mouth at [place] tablet 00 bedtime. Medical For [facility] cholestero l insulin 2018-02 Yes [id number] 30U inject 30 [facility] glargine 1-08 Units ity of (LANTUS 00:00: under the [place] U-100 00 skin at Medical INSULIN) bedtime. Branch 100 unit/mL injection hydroCHLORO 2018-02 Yes [id number] 50mg Take 1 [facility] nivers thiazide 50 1-08 tablet by ity of mg tablet 00:00: mouth [place] 00 daily. For Medical blood Branch pressure. losartan 2018-02 Yes [id number] 100mg Take 1 [facility] vers 100 mg 1-08 tablet by [facility] of tablet 00:00: mouth [place] 00 daily. For Medical blood Branch pressure atorvastati 2018-02 Yes [id number] 20mg Take 1 [facility] (LIPITOR) 1-08 tablet by ity of 20 mg 00:00: mouth at [place] tablet 00 bedtime. Medical For [facility] cholestero l insulin 2018-02 Yes [id number] 30U inject 30 [facility] glargine 1-08 Units ity of (LANTUS 00:00: under the [place] U-100 00 skin at Medical INSULIN) bedtime. Branch 100 unit/mL injection hydroCHLORO 2018-02 Yes [id number] 50mg Take 1 [facility] n[facility] thiazide 50 1-08 tablet by ity of mg tablet 00:00: mouth [place] 00 daily. For Medical blood Branch pressure. losartan 2018-02 Yes [id number] 100mg Take 1 [facility] vers 100 mg 1-08 tablet by [facility] of tablet 00:00: mouth [place] 00 daily. For Medical blood Branch pressure atorvastati 2018-02 Yes [id number] 20mg Take 1 [facility] (LIPITOR) 1-08 tablet by ity of 20 mg 00:00: mouth at [place] tablet 00 bedtime. Medical For [facility] cholestero l insulin 2018-02 Yes [id number] 30U inject 30 [facility] glargine 1-08 Units ity of (LANTUS 00:00: under the [place] U-100 00 skin at Medical INSULIN) bedtime. Branch 100 unit/mL injection hydroCHLORO 2018-02 Yes [id number] 50mg Take 1 [facility] n[facility] thiazide 50 1-08 tablet by ity of mg tablet 00:00: mouth [place] 00 daily. For Medical blood Branch pressure. losartan 2018-02 Yes [id number] 100mg Take 1 [facility] vers 100 mg 1-08 tablet by [facility] of tablet 00:00: mouth [place] 00 daily. For Medical blood Branch pressure atorvastati 2018-02 Yes [id number] 20mg Take 1 [facility] (LIPITOR) 1-08 tablet by ity of 20 mg 00:00: mouth at [place] tablet 00 bedtime. Medical For Branch cholestero l insulin 2018-02 Yes [id number] 30U inject 30 [facility] glargine 1-08 Units ity of (LANTUS 00:00: under the [place] U-100 00 skin at Medical INSULIN) bedtime. Branch 100 unit/mL injection hydroCHLORO 2018-02 Yes [id number] 50mg Take 1 [facility] n[facility] thiazide 50 1-08 tablet by ity of mg tablet 00:00: mouth [place] 00 daily. For Medical blood Branch pressure. losartan 2018-02 Yes [id number] 100mg Take 1 [facility] vers 100 mg 1-08 tablet by [facility] of tablet 00:00: mouth [place] 00 daily. For Medical blood Branch pressure atorvastati 2018-02 Yes [id number] 20mg Take 1 [facility] (LIPITOR) 1-08 tablet by ity of 20 mg 00:00: mouth at [place] tablet 00 bedtime. Medical For Branch cholestero l insulin 2018-02 Yes [id number] 30U inject 30 [facility] glargine 1-08 Units ity of (LANTUS 00:00: under the [place] U-100 00 skin at Medical INSULIN) bedtime. Branch 100 unit/mL injection hydroCHLORO 2018-02 Yes [id number] 50mg Take 1 [facility] n[facility] thiazide 50 1-08 tablet by ity of mg tablet 00:00: mouth [place] 00 daily. For Medical blood Branch pressure. losartan 2018-02 Yes [id number] 100mg Take 1 [facility] vers 100 mg 1-08 tablet by [facility] of tablet 00:00: mouth [place] 00 daily. For Medical blood Branch pressure atorvastati 2018-02 Yes [id number] 20mg Take 1 [facility] (LIPITOR) 1-08 tablet by ity of 20 mg 00:00: mouth at [place] tablet 00 bedtime. Medical For [facility] cholestero l insulin 2018-02 Yes [id number] 30U inject 30 [facility] glargine 1-08 Units ity of (LANTUS 00:00: under the [place] U-100 00 skin at Medical INSULIN) bedtime. Branch 100 unit/mL injection hydroCHLORO 2018-02 Yes [id number] 50mg Take 1 [facility] n[facility] thiazide 50 1-08 tablet by ity of mg tablet 00:00: mouth [place] 00 daily. For Medical blood Branch pressure. losartan 2018-02 Yes [id number] 100mg Take 1 [facility] vers 100 mg 1-08 tablet by [facility] of tablet 00:00: mouth [place] 00 daily. For Medical blood Branch pressure atorvastati 2018-02 Yes [id number] 20mg Take 1 [facility] (LIPITOR) 1-08 tablet by ity of 20 mg 00:00: mouth at [place] tablet 00 bedtime. Medical For [facility] cholestero l insulin 2018-02 Yes [id number] 30U inject 30 [facility] glargine 1-08 Units ity of (LANTUS 00:00: under the [place] U-100 00 skin at Medical INSULIN) bedtime. Branch 100 unit/mL injection hydroCHLORO 2018-02 Yes [id number] 50mg Take 1 [facility] n[facility] thiazide 50 1-08 tablet by ity of mg tablet 00:00: mouth [place] 00 daily. For Medical blood Branch pressure. losartan 2018-02 Yes [id number] 100mg Take 1 [facility] vers 100 mg 1-08 tablet by [facility] of tablet 00:00: mouth [place] 00 daily. For Medical blood Branch pressure atorvastati 2018-02 Yes [id number] 20mg Take 1 [facility] (LIPITOR) 1-08 tablet by ity of 20 mg 00:00: mouth at [place] tablet 00 bedtime. Medical For Branch cholestero l losartan 2018-02 Yes [id number] 100mg Take 1 [facility] vers 100 mg 1-08 tablet by ity of tablet 00:00: mouth [place] 00 daily. For Medical blood Branch pressure atorvastati 2018-02 Yes [id number] 20mg Take 1 [facility] (LIPITOR) 1-08 tablet by ity of 20 mg 00:00: mouth at [place] tablet 00 bedtime. Medical For Branch cholestero l insulin 2018-02 Yes [id number] 30U inject 30 [facility] glargine 1-08 Units ity of (LANTUS 00:00: under the [place] U-100 00 skin at Medical INSULIN) bedtime. Branch 100 unit/mL injection hydroCHLORO 2018-02 Yes [id number] 50mg Take 1 [facility] nivers thiazide 50 1-08 tablet by ity of mg tablet 00:00: mouth [place] 00 daily. For Medical blood Branch pressure. insulin 2018-02 Yes [id number] 30U inject 30 [facility] glargine 1-08 Units ity of (LANTUS 00:00: under the [place] U-100 00 skin at Medical INSULIN) bedtime. Branch 100 unit/mL injection hydroCHLORO 2018-02 Yes [id number] 50mg Take 1 [facility] nivers thiazide 50 1-08 tablet by ity of mg tablet 00:00: mouth [place] 00 daily. For Medical blood Branch pressure. losartan 2018-02 Yes [id number] 100mg Take 1 [facility] vers 100 mg 1-08 tablet by [facility]y of tablet 00:00: mouth [place] 00 daily. For Medical blood Branch pressure atorvastati 2018-02 Yes [id number] 20mg Take 1 [facility] (LIPITOR) 1-08 tablet by ity of 20 mg 00:00: mouth at [place] tablet 00 bedtime. Medical For Branch cholestero l insulin 2018-02 Yes [id number] 30U inject 30 [facility] glargine 1-08 Units ity of (LANTUS 00:00: under the [place] U-100 00 skin at Medical INSULIN) bedtime. Branch 100 unit/mL injection hydroCHLORO 2018-02 Yes [id number] 50mg Take 1 [facility] nivers thiazide 50 1-08 tablet by ity of mg tablet 00:00: mouth [place] 00 daily. For Medical blood Branch pressure. losartan 2018-02 Yes [id number] 100mg Take 1 [facility] vers 100 mg 1-08 tablet by [facility]y of tablet 00:00: mouth [place] 00 daily. For Medical blood Branch pressure atorvastati 2018-02 Yes [id number] 20mg Take 1 [facility] n (LIPITOR) 1-08 tablet by ity of 20 mg 00:00: mouth at [place] tablet 00 bedtime. Medical For Branch cholestero l insulin 2018-02 Yes [id number] 30U inject 30 [facility] glargine 1-08 Units ity of (LANTUS 00:00: under the [place] U-100 00 skin at Medical INSULIN) bedtime. Branch 100 unit/mL injection hydroCHLORO 2018-02 Yes [id number] 50mg Take 1 [facility] nivers thiazide 50 1-08 tablet by ity of mg tablet 00:00: mouth [place] 00 daily. For Medical blood Branch pressure. losartan 2018-02 Yes [id number] 100mg Take 1 [facility] vers 100 mg 1-08 tablet by [facility]y of tablet 00:00: mouth [place] 00 daily. For Medical blood Branch pressure atorvastati 2018-02 Yes [id number] 20mg Take 1 [facility] n (LIPITOR) 1-08 tablet by ity of 20 mg 00:00: mouth at [place] tablet 00 bedtime. Medical For Branch cholestero l insulin 2018-02 Yes [id number] 30U inject 30 [facility] glargine 1-08 Units ity of (LANTUS 00:00: under the [place] U-100 00 skin at Medical INSULIN) bedtime. Branch 100 unit/mL injection hydroCHLORO 2018-02 Yes [id number] 50mg Take 1 [facility] nivers thiazide 50 1-08 tablet by ity of mg tablet 00:00: mouth [place] 00 daily. For Medical blood Branch pressure. losartan 2018-02 Yes [id number] 100mg Take 1 [facility] vers 100 mg 1-08 tablet by [facility]y of tablet 00:00: mouth [place] 00 daily. For Medical blood Branch pressure atorvastati 2018-02 Yes [id number] 20mg Take 1 [facility] n (LIPITOR) 1-08 tablet by ity of 20 mg 00:00: mouth at [place] tablet 00 bedtime. Medical For Branch cholestero l insulin 2018-02 Yes [id number] 30U inject 30 [facility] glargine 1-08 Units ity of (LANTUS 00:00: under the [place] U-100 00 skin at Medical INSULIN) bedtime. Branch 100 unit/mL injection hydroCHLORO 2018-02 Yes [id number] 50mg Take 1 [facility] nivers thiazide 50 1-08 tablet by ity of mg tablet 00:00: mouth [place] 00 daily. For Medical blood Branch pressure. losartan 2018-02 Yes [id number] 100mg Take 1 [facility] vers 100 mg 1-08 tablet by [facility]y of tablet 00:00: mouth [place] 00 daily. For Medical blood Branch pressure atorvastati 2018-02 Yes [id number] 20mg Take 1 [facility] n (LIPITOR) 1-08 tablet by ity of 20 mg 00:00: mouth at [place] tablet 00 bedtime. Medical For [facility] cholestero l insulin 2018-02 Yes [id number] 30U inject 30 [facility] glargine 1-08 Units ity of (LANTUS 00:00: under the [place] U-100 00 skin at Medical INSULIN) bedtime. Branch 100 unit/mL injection hydroCHLORO 2018-02 Yes [id number] 50mg Take 1 [facility] nivers thiazide 50 1-08 tablet by ity of mg tablet 00:00: mouth [place] 00 daily. For Medical blood Branch pressure. losartan 2018-02 Yes [id number] 100mg Take 1 [facility] vers 100 mg 1-08 tablet by ity of tablet 00:00: mouth [place] 00 daily. For Medical blood Branch pressure atorvastati 2018-02 Yes [id number] 20mg Take 1 [facility] n (LIPITOR) 1-08 tablet by ity of 20 mg 00:00: mouth at [place] tablet 00 bedtime. Medical For Branch cholestero l insulin 2018-02 Yes [id number] 30U inject 30 [facility] glargine 1-08 Units ity of (LANTUS 00:00: under the [place] U-100 00 skin at Medical INSULIN) bedtime. Branch 100 unit/mL injection hydroCHLORO 2018-02 Yes [id number] 50mg Take 1 [facility] nivers thiazide 50 1-08 tablet by ity of mg tablet 00:00: mouth [place] 00 daily. For Medical blood Branch pressure. losartan 2018-02 Yes [id number] 100mg Take 1 [facility] vers 100 mg 1-08 tablet by [facility]y of tablet 00:00: mouth [place] 00 daily. For Medical blood Branch pressure atorvastati 2018-02 Yes [id number] 20mg Take 1 [facility] n (LIPITOR) 1-08 tablet by ity of 20 mg 00:00: mouth at [place] tablet 00 bedtime. Medical For Branch cholestero l insulin 2018-02 Yes [id number] 30U inject 30 [facility] glargine 1-08 Units ity of (LANTUS 00:00: under the [place] U-100 00 skin at Medical INSULIN) bedtime. Branch 100 unit/mL injection hydroCHLORO 2018-02 Yes [id number] 50mg Take 1 [facility] nivers thiazide 50 1-08 tablet by ity of mg tablet 00:00: mouth [place] 00 daily. For Medical blood Branch pressure. losartan 2018-02 Yes [id number] 100mg Take 1 [facility] vers 100 mg 1-08 tablet by ity of tablet 00:00: mouth [place] 00 daily. For Medical blood Branch pressure atorvastati 2018-02 Yes [id number] 20mg Take 1 [facility] n (LIPITOR) 1-08 tablet by ity of 20 mg 00:00: mouth at [place] tablet 00 bedtime. Medical For Branch cholestero l insulin 2018-02 Yes [id number] 30U inject 30 [facility] glargine 1-08 Units ity of (LANTUS 00:00: under the [place] U-100 00 skin at Medical INSULIN) bedtime. Branch 100 unit/mL injection hydroCHLORO 2018-02 Yes [id number] 50mg Take 1 [facility] nivers thiazide 50 1-08 tablet by ity of mg tablet 00:00: mouth [place] 00 daily. For Medical blood Branch pressure. losartan 2018-02 Yes [id number] 100mg Take 1 [facility] vers 100 mg 1-08 tablet by ity of tablet 00:00: mouth [place] 00 daily. For Medical blood Branch pressure atorvastati 2018-02 Yes [id number] 20mg Take 1 [facility] n (LIPITOR) 1-08 tablet by ity of 20 mg 00:00: mouth at [place] tablet 00 bedtime. Medical For Branch cholestero l insulin 2018-02 Yes [id number] 30U inject 30 [facility] glargine 1-08 Units ity of (LANTUS 00:00: under the [place] U-100 00 skin at Medical INSULIN) bedtime. Branch 100 unit/mL injection hydroCHLORO 2018-02 Yes [id number] 50mg Take 1 [facility] nivers thiazide 50 1-08 tablet by ity of mg tablet 00:00: mouth [place] 00 daily. For Medical blood Branch pressure. losartan 2018-02 Yes [id number] 100mg Take 1 [facility] vers 100 mg 1-08 tablet by ity of tablet 00:00: mouth [place] 00 daily. For Medical blood Branch pressure atorvastati 2018-02 Yes [id number] 20mg Take 1 [facility] n (LIPITOR) 1-08 tablet by ity of 20 mg 00:00: mouth at [place] tablet 00 bedtime. Medical For Branch cholestero l insulin 2018-02 Yes [id number] 30U inject 30 [facility] glargine 1-08 Units ity of (LANTUS 00:00: under the [place] U-100 00 skin at Medical INSULIN) bedtime. Branch 100 unit/mL injection hydroCHLORO 2018-02 Yes [id number] 50mg Take 1 [facility] nivers thiazide 50 1-08 tablet by ity of mg tablet 00:00: mouth [place] 00 daily. For Medical blood Branch pressure. losartan 2018-02 Yes [id number] 100mg Take 1 [facility] vers 100 mg 1-08 tablet by ity of tablet 00:00: mouth [place] 00 daily. For Medical blood Branch pressure losartan 2018-02 Yes [id number] 100mg Take 1 [facility] vers 100 mg 1-08 tablet by ity of tablet 00:00: mouth [place] 00 daily. For Medical blood Branch pressure atorvastati 2018-02 Yes [id number] 20mg Take 1 [facility] n (LIPITOR) 1-08 tablet by ity of 20 mg 00:00: mouth at [place] tablet 00 bedtime. Medical For Branch cholestero l insulin 2018-02 Yes [id number] 30U inject 30 [facility] glargine 1-08 Units ity of (LANTUS 00:00: under the [place] U-100 00 skin at Medical INSULIN) bedtime. Branch 100 unit/mL injection hydroCHLORO 2018-02 Yes [id number] 50mg Take 1 U nivers thiazide 50 1-08 tablet by ity of mg tablet 00:00: mouth [place] 00 daily. For Medical blood Branch pressure. atorvastati 2018-02 Yes [id number] 20mg Take 1 [facility] n (LIPITOR) 1-08 tablet by ity of 20 mg 00:00: mouth at [place] tablet 00 bedtime. Medical For Branch cholestero l insulin 2018-02 Yes [id number] 30U inject 30 [facility] glargine 1-08 Units ity of (LANTUS 00:00: under the [place] U-100 00 skin at Medical INSULIN) bedtime. Branch 100 unit/mL injection hydroCHLORO 2018-02 Yes [id number] 50mg Take 1 U nivers thiazide 50 1-08 tablet by ity of mg tablet 00:00: mouth [place] 00 daily. For Medical blood Branch pressure. losartan 2018-02 Yes [id number] 100mg Take 1 [facility] vers 100 mg 1-08 tablet by ity of tablet 00:00: mouth [place] 00 daily. For Medical blood Branch pressure atorvastati 2018-02 Yes [id number] 20mg Take 1 [facility] n (LIPITOR) 1-08 tablet by ity of 20 mg 00:00: mouth at [place] tablet 00 bedtime. Medical For Branch cholestero l insulin 2018-02 Yes [id number] 30U inject 30 [facility] glargine 1-08 Units ity of (LANTUS 00:00: under the [place] U-100 00 skin at Medical INSULIN) bedtime. Branch 100 unit/mL injection hydroCHLORO 2018-02 Yes [id number] 50mg Take 1 U nivers thiazide 50 1-08 tablet by ity of mg tablet 00:00: mouth [place] 00 daily. For Medical blood Branch pressure. losartan 2018-02 Yes [id number] 100mg Take 1 [facility] vers 100 mg 1-08 tablet by ity of tablet 00:00: mouth [place] 00 daily. For Medical blood Branch pressure atorvastati 2018-02 Yes [id number] 20mg Take 1 [facility] n (LIPITOR) 1-08 tablet by ity of 20 mg 00:00: mouth at [place] tablet 00 bedtime. Medical For Branch cholestero l insulin 2018-02 Yes [id number] 30U inject 30 [facility] glargine 1-08 Units ity of (LANTUS 00:00: under the [place] U-100 00 skin at Medical INSULIN) bedtime. Branch 100 unit/mL injection hydroCHLORO 2018-02 Yes [id number] 50mg Take 1 [facility] nivers thiazide 50 1-08 tablet by ity of mg tablet 00:00: mouth [place] 00 daily. For Medical blood Branch pressure. losartan 2018-02 Yes [id number] 100mg Take 1 [facility] vers 100 mg 1-08 tablet by [facility]y of tablet 00:00: mouth [place] 00 daily. For Medical blood Branch pressure atorvastati 2018-02 Yes [id number] 20mg Take 1 [facility] n (LIPITOR) 1-08 tablet by ity of 20 mg 00:00: mouth at [place] tablet 00 bedtime. Medical For Branch cholestero l insulin 2018-02 Yes [id number] 30U inject 30 [facility] glargine 1-08 Units ity of (LANTUS 00:00: under the [place] U-100 00 skin at Medical INSULIN) bedtime. Branch 100 unit/mL injection hydroCHLORO 2018-02 Yes [id number] 50mg Take 1 U nivers thiazide 50 1-08 tablet by ity of mg tablet 00:00: mouth [place] 00 daily. For Medical blood Branch pressure. insulin 2018-02 Yes [id number] 5U inject 5 U nivers regular 0-14 Units ity of human 00:00: under the [place] (HUMULIN R 00 skin 3 Medical REGULAR (three) Branch U-100 times INSULN) 100 daily unit/mL before injection meals. insulin 2018-02 Yes [id number] 5U inject 5 U nivers regular 0-14 Units ity of human 00:00: under the [place] (HUMULIN R 00 skin 3 Medical REGULAR (three) Branch U-100 times INSULN) 100 daily unit/mL before injection meals. insulin 2018-02 Yes [id number] 5U inject 5 U nivers regular 0-14 Units ity of human 00:00: under the [place] (HUMULIN R 00 skin 3 Medical REGULAR (three) Branch U-100 times INSULN) 100 daily unit/mL before injection meals. insulin 2018-02 Yes [id number] 5U inject 5 U nivers regular 0-14 Units ity of human 00:00: under the [place] (HUMULIN R 00 skin 3 Medical REGULAR (three) Branch U-100 times INSULN) 100 daily unit/mL before injection meals. insulin 2018-02 Yes [id number] 5U inject 5 U nivers regular 0-14 Units ity of human 00:00: under the [place] (HUMULIN R 00 skin 3 Medical REGULAR (three) Branch U-100 times INSULN) 100 daily unit/mL before injection meals. insulin 2018-02 Yes [id number] 5U inject 5 U nivers regular 0-14 Units ity of human 00:00: under the [place] (HUMULIN R 00 skin 3 Medical REGULAR (three) Branch U-100 times INSULN) 100 daily unit/mL before injection meals. insulin 2018-02 Yes [id number] 5U inject 5 U nivers regular 0-14 Units ity of human 00:00: under the [place] (HUMULIN R 00 skin 3 Medical REGULAR (three) Branch U-100 times INSULN) 100 daily unit/mL before injection meals. insulin 2018-02 Yes [id number] 5U inject 5 U nivers regular 0-14 Units ity of human 00:00: under the [place] (HUMULIN R 00 skin 3 Medical REGULAR (three) Branch U-100 times INSULN) 100 daily unit/mL before injection meals. insulin 2018-02 Yes [id number] 5U inject 5 U nivers regular 0-14 Units ity of human 00:00: under the [place] (HUMULIN R 00 skin 3 Medical REGULAR (three) Branch U-100 times INSULN) 100 daily unit/mL before injection meals. insulin 2018-02 Yes [id number] 5U inject 5 U nivers regular 0-14 Units ity of human 00:00: under the [place] (HUMULIN R 00 skin 3 Medical REGULAR (three) Branch U-100 times INSULN) 100 daily unit/mL before injection meals. insulin 2018-02 Yes [id number] 5U inject 5 U nivers regular 0-14 Units ity of human 00:00: under the [place] (HUMULIN R 00 skin 3 Medical REGULAR (three) Branch U-100 times INSULN) 100 daily unit/mL before injection meals. insulin 2018-02 Yes [id number] 5U inject 5 U nivers regular 0-14 Units ity of human 00:00: under the [place] (HUMULIN R 00 skin 3 Medical REGULAR (three) Branch U-100 times INSULN) 100 daily unit/mL before injection meals. insulin 2018-02 Yes [id number] 5U inject 5 U nivers regular 0-14 Units ity of human 00:00: under the [place] (HUMULIN R 00 skin 3 Medical REGULAR (three) Branch U-100 times INSULN) 100 daily unit/mL before injection meals. insulin 2018-02 Yes [id number] 5U inject 5 U nivers regular 0-14 Units ity of human 00:00: under the [place] (HUMULIN R 00 skin 3 Medical REGULAR (three) Branch U-100 times INSULN) 100 daily unit/mL before injection meals. insulin 2018-02 Yes [id number] 5U inject 5 U nivers regular 0-14 Units ity of human 00:00: under the [place] (HUMULIN R 00 skin 3 Medical REGULAR (three) Branch U-100 times INSULN) 100 daily unit/mL before injection meals. insulin 2018-02 Yes [id number] 5U inject 5 U nivers regular 0-14 Units ity of human 00:00: under the [place] (HUMULIN R 00 skin 3 Medical REGULAR (three) Branch U-100 times INSULN) 100 daily unit/mL before injection meals. insulin 2018-02 Yes [id number] 5U inject 5 U nivers regular 0-14 Units ity of human 00:00: under the [place] (HUMULIN R 00 skin 3 Medical REGULAR (three) Branch U-100 times INSULN) 100 daily unit/mL before injection meals. insulin 2018-02 Yes [id number] 5U inject 5 U nivers regular 0-14 Units ity of human 00:00: under the [place] (HUMULIN R 00 skin 3 Medical REGULAR (three) Branch U-100 times INSULN) 100 daily unit/mL before injection meals. insulin 2018-02 Yes [id number] 5U inject 5 U nivers regular 0-14 Units ity of human 00:00: under the [place] (HUMULIN R 00 skin 3 Medical REGULAR (three) Branch U-100 times INSULN) 100 daily unit/mL before injection meals. insulin 2018-02 Yes [id number] 5U inject 5 U nivers regular 0-14 Units ity of human 00:00: under the [place] (HUMULIN R 00 skin 3 Medical REGULAR (three) Branch U-100 times INSULN) 100 daily unit/mL before injection meals. insulin 2018-02 Yes [id number] 5U inject 5 U nivers regular 0-14 Units ity of human 00:00: under the [place] (HUMULIN R 00 skin 3 Medical REGULAR (three) Branch U-100 times INSULN) 100 daily unit/mL before injection meals. insulin 2018-02 Yes [id number] 5U inject 5 U nivers regular 0-14 Units ity of human 00:00: under the [place] (HUMULIN R 00 skin 3 Medical REGULAR (three) Branch U-100 times INSULN) 100 daily unit/mL before injection meals. insulin 2018-02 Yes [id number] 5U inject 5 U nivers regular 0-14 Units ity of human 00:00: under the [place] (HUMULIN R 00 skin 3 Medical REGULAR (three) Branch U-100 times INSULN) 100 daily unit/mL before injection meals. insulin 2018-02 Yes [id number] 5U inject 5 U nivers regular 0-14 Units ity of human 00:00: under the [place] (HUMULIN R 00 skin 3 Medical REGULAR (three) Branch U-100 times INSULN) 100 daily unit/mL before injection meals. insulin 2018-02 Yes [id number] 5U inject 5 U nivers regular 0-14 Units ity of human 00:00: under the [place] (HUMULIN R 00 skin 3 Medical REGULAR (three) Branch U-100 times INSULN) 100 daily unit/mL before injection meals. insulin 2018-02 Yes [id number] 5U inject 5 U nivers regular 0-14 Units ity of human 00:00: under the [place] (HUMULIN R 00 skin 3 Medical REGULAR (three) Branch U-100 times INSULN) 100 daily unit/mL before injection meals. insulin 2018-02 Yes [id number] 5U inject 5 U nivers regular 0-14 Units ity of human 00:00: under the [place] (HUMULIN R 00 skin 3 Medical REGULAR (three) Branch U-100 times INSULN) 100 daily unit/mL before injection meals. insulin 2018-02 Yes [id number] 5U inject 5 U nivers regular 0-14 Units ity of human 00:00: under the [place] (HUMULIN R 00 skin 3 Medical REGULAR (three) Branch U-100 times INSULN) 100 daily unit/mL before injection meals. insulin 2018-02 Yes [id number] 5U inject 5 U nivers regular 0-14 Units ity of human 00:00: under the [place] (HUMULIN R 00 skin 3 Medical REGULAR (three) Branch U-100 times INSULN) 100 daily unit/mL before injection meals. insulin 2018-02 Yes [id number] 5U inject 5 U nivers regular 0-14 Units ity of human 00:00: under the [place] (HUMULIN R 00 skin 3 Medical REGULAR (three) Branch U-100 times INSULN) 100 daily unit/mL before injection meals. insulin 2018- Yes [id number] 5U inject 5 U nivers regular 0-14 Units ity of human 00:00: under the [place] (HUMULIN R 00 skin 3 Medical REGULAR (three) Branch U-100 times INSULN) 100 daily unit/mL before injection meals. metFORMIN 2018-02 Yes [id number] 1000mg Take 1 [facility] 1,000 mg 0-07 tablet by ity of tablet 00:00: mouth (two) Medical times Branch daily with meals. For diabetes metFORMIN 2018-02 Yes [id number] 1000mg Take 1 [facility] 1,000 mg 0-07 tablet by ity of tablet 00:00: mouth (two) Medical times Branch daily with meals. For diabetes metFORMIN 2018-02 Yes [id number] 1000mg Take 1 [facility] 1,000 mg 0-07 tablet by ity of tablet 00:00: mouth (two) Medical times Branch daily with meals. For diabetes metFORMIN 2018-02 Yes [id number] 1000mg Take 1 [facility] 1,000 mg 0-07 tablet by ity of tablet 00:00: mouth (two) Medical times Branch daily with meals. For diabetes metFORMIN 2018-02 Yes [id number] 1000mg Take 1 [facility] 1,000 mg 0-07 tablet by ity of tablet 00:00: mouth [place] (two) Medical times Branch daily with meals. For diabetes metFORMIN 2018-02 Yes [id number] 1000mg Take 1 [facility] 1,000 mg 0-07 tablet by ity of tablet 00:00: mouth [place] (two) Medical times Branch daily with meals. For diabetes metFORMIN 2018-02 2020- No [id number] 1000mg Take 1 [facility] 1,000 mg 0-07 03-19 tablet by ity o f tablet 00:00: 00:00 mouth 2 [place] 00 :00 (two) Medical times Branch daily with meals. For diabetes meloxicam 2018- Yes [id number] 15mg Take 1 U nivers 15 mg 9-09 tablet by ity of tablet 00:00: mouth [place] 00 daily. Medical Branch meloxicam 2019-0 Yes [id number] 15mg Take 1 U nivers 15 mg 9-09 tablet by ity of tablet 00:00: mouth [place] 00 daily. Medical Branch meloxicam 2019-0 Yes [id number] 15mg Take 1 U nivers 15 mg 9-09 tablet by ity of tablet 00:00: mouth [place] 00 daily. [facility] Branch meloxicam 2018-0 Yes [id number] 15mg Take 1 U nivers 15 mg 9-09 tablet by ity of tablet 00:00: mouth [place] 00 daily. [facility] Branch meloxicam 2018-0 Yes [id number] 15mg Take 1 U nivers 15 mg 9-09 tablet by ity of tablet 00:00: mouth [place] 00 daily. [facility] Branch meloxicam 0 Yes [id number] 15mg Take 1 U nivers 15 mg 9-09 tablet by ity of tablet 00:00: mouth [place] 00 daily. [facility] Branch meloxicam 0 Yes [id number] 15mg Take 1 U nivers 15 mg 9-09 tablet by ity of tablet 00:00: mouth [place] 00 daily. [facility] Branch meloxicam 0 Yes [id number] 15mg Take 1 U nivers 15 mg 9-09 tablet by ity of tablet 00:00: mouth [place] 00 daily. [facility] Branch meloxicam 0 Yes [id number] 15mg Take 1 U nivers 15 mg 9-09 tablet by ity of tablet 00:00: mouth [place] 00 daily. [facility] Branch meloxicam 0 Yes [id number] 15mg Take 1 U nivers 15 mg 9-09 tablet by ity of tablet 00:00: mouth [place] 00 daily. [facility] Branch meloxicam 0 Yes [id number] 15mg Take 1 U nivers 15 mg 9-09 tablet by ity of tablet 00:00: mouth [place] 00 daily. [facility] Branch meloxicam 0 Yes [id number] 15mg Take 1 U nivers 15 mg 9-09 tablet by ity of tablet 00:00: mouth [place] 00 daily. [facility] Branch meloxicam 2019-0 Yes [id number] 15mg Take 1 U nivers 15 mg 9-09 tablet by ity of tablet 00:00: mouth [place] 00 daily. [facility] Branch meloxicam 2018-0 Yes [id number] 15mg Take 1 U nivers 15 mg 9-09 tablet by ity of tablet 00:00: mouth [place] 00 daily. [facility] Branch meloxicam 2018-0 Yes [id number] 15mg Take 1 U nivers 15 mg 9-09 tablet by ity of tablet 00:00: mouth [place] 00 daily. [facility] levothyroxi 20190 Yes [id number] 125ug Take 1 [facility] ne 125 mcg 9-09 tablet by ity of tablet 00:00: mouth [place] 00 every Medical morning. [place] meloxicam 0 Yes [id number] 15mg Take 1 U nivers 15 mg 9-09 tablet by ity of tablet 00:00: mouth [place] 00 daily. [facility] levothyroxi 0 Yes [id number] 125ug Take 1 [facility] ne 125 mcg 9-09 tablet by ity of tablet 00:00: mouth [place] 00 every Medical morning. [place] meloxicam Yes [id number] 15mg Take 1 U nivers 15 mg 9-09 tablet by ity of tablet 00:00: mouth [place] 00 daily. [facility] levothyroxi 0 Yes [id number] 125ug Take 1 [facility] ne 125 mcg 9-09 tablet by ity of tablet 00:00: mouth [place] 00 every Medical morning. [place] meloxicam 0 Yes [id number] 15mg Take 1 U nivers 15 mg 9-09 tablet by ity of tablet 00:00: mouth [place] 00 daily. [facility] levothyroxi 0 Yes [id number] 125ug Take 1 [facility] ne 125 mcg 9-09 tablet by ity of tablet 00:00: mouth [place] 00 every Medical morning. [place] meloxicam 0 Yes [id number] 15mg Take 1 U nivers 15 mg 9-09 tablet by ity of tablet 00:00: mouth [place] 00 daily. [facility] levothyroxi 0 Yes [id number] 125ug Take 1 [facility] ne 125 mcg 9-09 tablet by ity of tablet 00:00: mouth [place] 00 every Medical morning. [place] meloxicam 0 Yes [id number] 15mg Take 1 U nivers 15 mg 9-09 tablet by ity of tablet 00:00: mouth [place] 00 daily. [facility] levothyroxi 0 Yes [id number] 125ug Take 1 [facility] ne 125 mcg 9-09 tablet by ity of tablet 00:00: mouth [place] 00 every Medical morning. [place] meloxicam 0 Yes [id number] 15mg Take 1 U nivers 15 mg 9-09 tablet by ity of tablet 00:00: mouth [place] 00 daily. [facility] levothyroxi 0 Yes [id number] 125ug Take 1 [facility] ne 125 mcg 9-09 tablet by ity of tablet 00:00: mouth [place] 00 every Medical morning. [place] meloxicam 0 Yes [id number] 15mg Take 1 U nivers 15 mg 9-09 tablet by ity of tablet 00:00: mouth [place] 00 daily. [facility] Branch levothyroxi 0 Yes [id number] 125ug Take 1 [facility] ne 125 mcg 9-09 tablet by ity of tablet 00:00: mouth [place] 00 every Medical morning. [place] meloxicam 0 Yes [id number] 15mg Take 1 U nivers 15 mg 9-09 tablet by ity of tablet 00:00: mouth [place] 00 daily. [facility] Branch levothyroxi Yes [id number] 125ug Take 1 [facility] ne 125 mcg 9-09 tablet by ity of tablet 00:00: mouth [place] 00 every Medical morning. [place] meloxicam Yes [id number] 15mg Take 1 U nivers 15 mg 9-09 tablet by ity of tablet 00:00: mouth [place] 00 daily. [facility] levothyroxi Yes [id number] 125ug Take 1 [facility] ne 125 mcg 9-09 tablet by ity of tablet 00:00: mouth [place] 00 every Medical morning. [place] meloxicam Yes [id number] 15mg Take 1 U nivers 15 mg 9-09 tablet by ity of tablet 00:00: mouth [place] 00 daily. [facility] levothyroxi 0 Yes [id number] 125ug Take 1 [facility] ne 125 mcg 9-09 tablet by ity of tablet 00:00: mouth [place] 00 every Medical morning. [place] meloxicam 0 Yes [id number] 15mg Take 1 U nivers 15 mg 9-09 tablet by ity of tablet 00:00: mouth [place] 00 daily. [facility] Branch levothyroxi 0 Yes [id number] 125ug Take 1 [facility] ne 125 mcg 9-09 tablet by ity of tablet 00:00: mouth [place] 00 every Medical morning. [place] meloxicam 0 Yes [id number] 15mg Take 1 U nivers 15 mg 9-09 tablet by ity of tablet 00:00: mouth [place] 00 daily. [facility] meloxicam 0 Yes [id number] 15mg Take 1 U nivers 15 mg 9-09 tablet by ity of tablet 00:00: mouth [place] 00 daily. [facility] Branch levothyroxi Yes [id number] 125ug Take 1 [facility] ne 125 mcg 9-09 tablet by ity of tablet 00:00: mouth [place] 00 every Medical morning. Branch meloxicam Yes [id number] 15mg Take 1 U nivers 15 mg 9-09 tablet by ity of tablet 00:00: mouth [place] 00 daily. [facility] Branch levothyroxi Yes [id number] 125ug Take 1 [facility] ne 125 mcg 9-09 tablet by ity of tablet 00:00: mouth [place] 00 every Medical morning. [place] meloxicam Yes [id number] 15mg Take 1 U nivers 15 mg 9-09 tablet by ity of tablet 00:00: mouth [place] 00 daily. [facility] levothyroxi Yes [id number] 125ug Take 1 [facility] ne 125 mcg 9-09 tablet by ity of tablet 00:00: mouth [place] 00 every Medical morning. [place] meloxicam Yes [id number] 15mg Take 1 U nivers 15 mg 9-09 tablet by ity of tablet 00:00: mouth [place] 00 daily. [facility] meloxicam Yes [id number] 15mg Take 1 U nivers 15 mg 9-09 tablet by ity of tablet 00:00: mouth [place] 00 daily. [facility] levothyroxi 2020- No [id number] 125ug Take 1 [facility] ne 125 mcg 9-09 07-30 tablet by ity of tablet 00:00: 00:00 mouth [place] 00 :00 every Medical morning. Branch GABAPENTIN Yes [id number] TAKE 3 [facility] 300 mg 8-19 CAPSULES ity of capsule 00:00: BY MOUTH [place] 00 THREE Medical TIMES Branch DAILY GABAPENTIN 2018- Yes [id number] TAKE 3 [facility] 300 mg 8-19 CAPSULES ity of capsule 00:00: BY MOUTH [place] 00 THREE Medical TIMES Branch DAILY GABAPENTIN 2019- Yes [id number] TAKE 3 [facility] 300 mg 8-19 CAPSULES ity of capsule 00:00: BY MOUTH [place] 00 THREE Medical TIMES Branch DAILY BD VEO Yes [id number] USE Univ ers INSULIN 09-14 DIRECTED ity of SYRINGE UF 00:00: FOUR [place] 0.3 mL 31 00 TIMES A Medica l gauge x DAY Branch " Syrg BD VEO 2019-0 Yes [id number] USE Univ ers INSULIN 8- DIRECTED ity of [place] UF 00:00: FOUR [place] 0.3 mL 31 00 TIMES A Medica l gauge x DAY Branch " Syrg BD VEO 2019-0 Yes [id number] USE Univ ers INSULIN 09-14 DIRECTED ity of [place]YR[place] UF 00:00: FOUR [place] 0.3 mL 31 00 TIMES A Medica l gauge x DAY Branch " Syrg BD VEO 2019-0 Yes [id number] USE Univ ers INSULIN 09-14 DIRECTED ity of SYR[place] UF 00:00: FOUR [place] 0.3 mL 31 00 TIMES A Medica l gauge x DAY Branch " Syrg BD VEO 2019-0 Yes [id number] USE Univ ers INSULIN 09-14 DIRECTED ity of SYRING[place] UF 00:00: FOUR [place] 0.3 mL 00 TIMES A Medica l gauge x DAY Branch " Syrg BD VEO 2019-0 Yes [id number] USE Univ ers INSULIN 09-14 DIRECTED ity of [place]YR[place] UF 00:00: FOUR [place] 0.3 mL 31 00 TIMES A Medica l gauge x DAY Branch " Syrg BD VEO 2019-0 Yes [id number] USE Univ ers INSULIN 09-14 DIRECTED ity of SYRING[place] UF 00:00: FOUR [place] 0.3 mL 00 TIMES A Medica l gauge x DAY Branch " Syrg BD VEO 2019-0 Yes [id number] USE Univ ers INSULIN 09-14 DIRECTED ity of [place] UF 00:00: FOUR [place] 0.3 mL 31 00 TIMES A Medica l gauge x DAY Branch " Syrg BD VEO 2019-0 Yes [id number] USE Univ ers INSULIN 09-14 DIRECTED ity of [place]YR[place] UF 00:00: FOUR [place] 0.3 mL 31 00 TIMES A Medica l gauge x DAY Branch " Syrg BD VEO 2019-0 Yes [id number] USE Univ ers INSULIN 8 DIRECTED ity of [place]YR[place] UF 00:00: FOUR [place] 0.3 mL 31 00 TIMES A Medica l gauge x DAY Branch " Syrg BD VEO 2019-0 Yes [id number] USE Univ ers INSULIN 8- DIRECTED ity of [place] UF 00:00: FOUR [place] 0.3 mL 31 00 TIMES A Medica l gauge x DAY Branch 64" Syrg BD VEO 2019-0 Yes [id number] USE Univ ers INSULIN 09-14 DIRECTED ity of [place]YR[place] UF 00:00: FOUR [place] 0.3 mL 31 00 TIMES A Medica l gauge x DAY Branch 64" Syrg BD VEO 2019-0 Yes [id number] USE Univ ers INSULIN 09-14 DIRECTED ity of [place] UF 00:00: FOUR [place] 0.3 mL 31 00 TIMES A Medica l gauge x DAY Branch " Syrg BD VEO 2019-0 Yes [id number] USE Univ ers INSULIN 09-14 DIRECTED ity of [place] UF 00:00: FOUR [place] 0.3 mL 31 00 TIMES A Medica l gauge x DAY Branch " Syrg BD VEO 2019-0 Yes [id number] USE Univ ers INSULIN 09-14 DIRECTED ity of [place] UF 00:00: FOUR [place] 0.3 mL 31 00 TIMES A Medica l gauge x DAY Branch " Syrg BD VEO 2019-0 Yes [id number] USE Univ ers INSULIN 09-14 DIRECTED ity of [place] UF 00:00: FOUR [place] 0.3 mL 31 00 TIMES A Medica l gauge x DAY Branch " Syrg BD VEO 2019-0 Yes [id number] USE Univ ers INSULIN 09-14 DIRECTED ity of [place] UF 00:00: FOUR [place] 0.3 mL 31 00 TIMES A Medica l gauge x DAY Branch 64" Syrg BD VEO 2019-0 Yes [id number] USE Univ ers INSULIN 09-14 DIRECTED ity of [place] UF 00:00: FOUR [place] 0.3 mL 31 00 TIMES A Medica l gauge x DAY Branch " Syrg BD VEO 2019-0 Yes [id number] USE Univ ers INSULIN 09-14 DIRECTED ity of [place] UF 00:00: FOUR [place] 0.3 mL 31 00 TIMES A Medica l gauge x DAY Branch 1564" Syrg BD VEO 2019-0 2020- No [id number] USE Uni vers INSULIN 810-02 DIRECTED ity [...] 7-26 directed, ity of dle U-100 00:00: [facility], [place] 0.3 mL DX:E11.9 Medica l gauge x Branch 1564" Syrg insulin 2019-0 Yes Use as Univers syringe-nee 7-26 directed, ity of dle U-100 00:00: D [place] 0.3 mL DX:E11.9 Medica l gauge x Branch 1564" Syrg insulin 2019-0 Yes Use as Univers syringe-nee 7-26 directed, ity of dle U-100 00:00: [facility] [place] 0.3 mL DX:E11.9 Medica l gauge x Branch 1564" Syrg insulin 2019-0 Yes Use as Univers syringe-nee 7-26 directed, ity of dle U-100 00:00: [facility] [place] 0.3 mL DX:E11.9 Medica l [...] gauge x Branch " Syrg cholecalcif Yes [id number] Unsure of [facility] tamika, 7-08 dose. ity of vitamin D3, 00:00: [place] 1,000 unit 00 Medical tablet Branch vitamin 2018- Yes [id number] 5000ug Take 5 U nivers B-12 1,000 7-08 tablets by ity of mcg tablet 00:00: mouth [place] 00 daily. Medical Branch vitamin B-1 Yes [id number] 50mg Take 1 [facility] (VITAMIN 7-08 tablet by ity of B-1) 50 mg 00:00: mouth [place] tablet 00 daily. Medical Branch cholecalcif Yes [id number] Unsure of [facility] tamika, 7-08 dose. ity of vitamin D3, 00:00: [place] 1,000 unit 00 Medical tablet Branch vitamin 2018- Yes [id number] 5000ug Take 5 U nivers B-12 1,000 7-08 tablets by ity of mcg tablet 00:00: mouth [place] 00 daily. Medical Branch vitamin B-1 Yes [id number] 50mg Take 1 [facility] (VITAMIN 7-08 tablet by ity of B-1) 50 mg 00:00: mouth [place] tablet 00 daily. Medical Branch cholecalcif Yes [id number] Unsure of [facility] tamika, 7-08 dose. ity of vitamin D3, 00:00: [place] 1,000 unit 00 Medical tablet Branch vitamin Yes [id number] 5000ug Take 5 U nivers B-12 1,000 7-08 tablets by ity of mcg tablet 00:00: mouth [place] 00 daily. Medical Branch vitamin B-1 Yes [id number] 50mg Take 1 [facility] (VITAMIN 7-08 tablet by ity of B-1) 50 mg 00:00: mouth [place] tablet 00 daily. Medical Branch cholecalcif Yes [id number] Unsure of [facility] tamika, 7-08 dose. ity of vitamin D3, 00:00: [place] 1,000 unit 00 Medical tablet Branch vitamin 2018-0 Yes [id number] 5000ug Take 5 U nivers B-12 1,000 7-08 tablets by ity of mcg tablet 00:00: mouth [place] 00 daily. Medical Branch vitamin B-1 Yes [id number] 50mg Take 1 [facility] (VITAMIN 7-08 tablet by ity of B-1) 50 mg 00:00: mouth [place] tablet 00 daily. Medical Branch cholecalcif Yes [id number] Unsure of [facility] tamika, 7-08 dose. ity of vitamin D3, 00:00: [place] 1,000 unit 00 Medical tablet Branch vitamin 2018-0 Yes [id number] 5000ug Take 5 U nivers B-12 1,000 7-08 tablets by ity of mcg tablet 00:00: mouth [place] 00 daily. Medical Branch vitamin B-1 Yes [id number] 50mg Take 1 [facility] (VITAMIN 7-08 tablet by ity of B-1) 50 mg 00:00: mouth [place] tablet 00 daily. Medical Branch cholecalcif Yes [id number] Unsure of [facility] tamika, 7-08 dose. ity of vitamin D3, 00:00: [place] 1,000 unit 00 Medical tablet Branch vitamin 2018-0 Yes [id number] 5000ug Take 5 U nivers B-12 1,000 7-08 tablets by ity of mcg tablet 00:00: mouth [place] 00 daily. Medical Branch vitamin B-1 Yes [id number] 50mg Take 1 [facility] (VITAMIN 7-08 tablet by ity of B-1) 50 mg 00:00: mouth [place] tablet 00 daily. Medical Branch cholecalcif Yes [id number] Unsure of [facility] tamika, 7-08 dose. ity of vitamin D3, 00:00: [place] 1,000 unit 00 Medical tablet Branch vitamin 2019-0 Yes [id number] 5000ug Take 5 U nivers B-12 1,000 7-08 tablets by ity of mcg tablet 00:00: mouth [place] 00 daily. Medical Branch vitamin B-1 Yes [id number] 50mg Take 1 [facility] (VITAMIN 7-08 tablet by ity of B-1) 50 mg 00:00: mouth [place] tablet 00 daily. Medical Branch cholecalcif Yes [id number] Unsure of [facility] tamika, 7-08 dose. ity of vitamin D3, 00:00: [place] 1,000 unit 00 Medical tablet Branch vitamin 2018- Yes [id number] 5000ug Take 5 U nivers B-12 1,000 7-08 tablets by ity of mcg tablet 00:00: mouth [place] 00 daily. Medical Branch vitamin B-1 Yes [id number] 50mg Take 1 [facility] (VITAMIN 7-08 tablet by ity of B-1) 50 mg 00:00: mouth [place] tablet 00 daily. Medical Branch cholecalcif Yes [id number] Unsure of [facility] tamika, 7-08 dose. ity of vitamin D3, 00:00: [place] 1,000 unit 00 Medical tablet Branch vitamin 2018- Yes [id number] 5000ug Take 5 U nivers B-12 1,000 7-08 tablets by ity of mcg tablet 00:00: mouth [place] 00 daily. Medical Branch vitamin B-1 Yes [id number] 50mg Take 1 [facility] (VITAMIN 7-08 tablet by ity of B-1) 50 mg 00:00: mouth [place] tablet 00 daily. Medical Branch cholecalcif 2018- Yes [id number] Unsure of [facility] tamika, 7-08 dose. ity of vitamin D3, 00:00: [place] 1,000 unit 00 Medical tablet Branch vitamin 2018- Yes [id number] 5000ug Take 5 U nivers B-12 1,000 7-08 tablets by ity of mcg tablet 00:00: mouth [place] 00 daily. Medical Branch vitamin B-1 Yes [id number] 50mg Take 1 [facility] (VITAMIN 7-08 tablet by ity of B-1) 50 mg 00:00: mouth [place] tablet 00 daily. Medical Branch cholecalcif Yes [id number] Unsure of [facility] tamika, 7-08 dose. ity of vitamin D3, 00:00: [place] 1,000 unit 00 Medical tablet Branch vitamin 2019-0 Yes [id number] 5000ug Take 5 U nivers B-12 1,000 7-08 tablets by ity of mcg tablet 00:00: mouth [place] 00 daily. Medical Branch vitamin B-1 Yes [id number] 50mg Take 1 [facility] (VITAMIN 7-08 tablet by ity of B-1) 50 mg 00:00: mouth [place] tablet 00 daily. Medical Branch cholecalcif Yes [id number] Unsure of [facility] tamika, 7-08 dose. ity of vitamin D3, 00:00: [place] 1,000 unit 00 Medical tablet Branch vitamin 2018- Yes [id number] 5000ug Take 5 U nivers B-12 1,000 7-08 tablets by ity of mcg tablet 00:00: mouth [place] 00 daily. Medical Branch vitamin B-1 Yes [id number] 50mg Take 1 [facility] (VITAMIN 7-08 tablet by ity of B-1) 50 mg 00:00: mouth [place] tablet 00 daily. Medical Branch cholecalcif Yes [id number] Unsure of [facility] tamika, 7-08 dose. ity of vitamin D3, 00:00: [place] 1,000 unit 00 Medical tablet Branch vitamin 2019-0 Yes [id number] 5000ug Take 5 U nivers B-12 1,000 7-08 tablets by ity of mcg tablet 00:00: mouth [place] 00 daily. Medical Branch vitamin B-1 Yes [id number] 50mg Take 1 [facility] (VITAMIN 7-08 tablet by ity of B-1) 50 mg 00:00: mouth [place] tablet 00 daily. Medical Branch cholecalcif Yes [id number] Unsure of [facility] tamika, 7-08 dose. ity of vitamin D3, 00:00: [place] 1,000 unit 00 Medical tablet Branch vitamin 2019- Yes [id number] 5000ug Take 5 U nivers B-12 1,000 7-08 tablets by ity of mcg tablet 00:00: mouth [place] 00 daily. Medical Branch vitamin B-1 2018- Yes [id number] 50mg Take 1 [facility] (VITAMIN 7-08 tablet by ity of B-1) 50 mg 00:00: mouth [place] tablet 00 daily. Medical Branch cholecalcif 2018- Yes [id number] Unsure of [facility] tamika, 7-08 dose. ity of vitamin D3, 00:00: [place] 1,000 unit 00 Medical tablet Branch vitamin 2018-0 Yes [id number] 5000ug Take 5 U nivers B-12 1,000 7-08 tablets by ity of mcg tablet 00:00: mouth [place] 00 daily. Medical Branch vitamin B-1 2018- Yes [id number] 50mg Take 1 [facility] (VITAMIN 7-08 tablet by ity of B-1) 50 mg 00:00: mouth [place] tablet 00 daily. Medical Branch cholecalcif Yes [id number] Unsure of [facility] tamika, 7-08 dose. ity of vitamin D3, 00:00: [place] 1,000 unit 00 Medical tablet Branch vitamin 2018-0 Yes [id number] 5000ug Take 5 U nivers B-12 1,000 7-08 tablets by ity of mcg tablet 00:00: mouth [place] 00 daily. Medical Branch vitamin B-1 Yes [id number] 50mg Take 1 [facility] (VITAMIN 7-08 tablet by ity of B-1) 50 mg 00:00: mouth [place] tablet 00 daily. Medical Branch cholecalcif 2018- Yes [id number] Unsure of [facility] tamika, 7-08 dose. ity of vitamin D3, 00:00: [place] 1,000 unit 00 Medical tablet Branch vitamin 2019-0 Yes [id number] 5000ug Take 5 U nivers B-12 1,000 7-08 tablets by ity of mcg tablet 00:00: mouth [place] 00 daily. Medical Branch vitamin B-1 2018- Yes [id number] 50mg Take 1 [facility] (VITAMIN 7-08 tablet by ity of B-1) 50 mg 00:00: mouth [place] tablet 00 daily. Medical Branch cholecalcif 2018- Yes [id number] Unsure of [facility] tamika, 7-08 dose. ity of vitamin D3, 00:00: [place] 1,000 unit 00 Medical tablet Branch vitamin 2019-0 Yes [id number] 5000ug Take 5 U nivers B-12 1,000 7-08 tablets by ity of mcg tablet 00:00: mouth [place] 00 daily. Medical Branch vitamin B-1 2018- Yes [id number] 50mg Take 1 [facility] (VITAMIN 7-08 tablet by ity of B-1) 50 mg 00:00: mouth [place] tablet 00 daily. Medical Branch cholecalcif 2019- Yes [id number] Unsure of [facility] tamika, 7-08 dose. ity of vitamin D3, 00:00: [place] 1,000 unit 00 Medical tablet Branch vitamin 2019-0 Yes [id number] 5000ug Take 5 U nivers B-12 1,000 7-08 tablets by ity of mcg tablet 00:00: mouth [place] 00 daily. Medical Branch vitamin B-1 2018- Yes [id number] 50mg Take 1 [facility] (VITAMIN 7-08 tablet by ity of B-1) 50 mg 00:00: mouth [place] tablet 00 daily. Medical Branch cholecalcif 2018- Yes [id number] Unsure of [facility] tamika, 7-08 dose. ity of vitamin D3, 00:00: [place] 1,000 unit 00 Medical tablet Branch vitamin 2019-0 Yes [id number] 5000ug Take 5 U nivers B-12 1,000 7-08 tablets by ity of mcg tablet 00:00: mouth [place] 00 daily. Medical Branch vitamin B-1 2018- Yes [id number] 50mg Take 1 [facility] (VITAMIN 7-08 tablet by ity of B-1) 50 mg 00:00: mouth [place] tablet 00 daily. Medical Branch cholecalcif 2018- Yes [id number] Unsure of [facility] tamika, 7-08 dose. ity of vitamin D3, 00:00: [place] 1,000 unit 00 Medical tablet Branch vitamin 2019-0 Yes [id number] 5000ug Take 5 U nivers B-12 1,000 7-08 tablets by ity of mcg tablet 00:00: mouth [place] 00 daily. Medical Branch vitamin B-1 2018- Yes [id number] 50mg Take 1 [facility] (VITAMIN 7-08 tablet by ity of B-1) 50 mg 00:00: mouth [place] tablet 00 daily. Medical Branch cholecalcif 2018- Yes [id number] Unsure of [facility] tamika, 7-08 dose. ity of vitamin D3, 00:00: [place] 1,000 unit 00 Medical tablet Branch vitamin 2019-0 Yes [id number] 5000ug Take 5 U nivers B-12 1,000 7-08 tablets by ity of mcg tablet 00:00: mouth [place] 00 daily. Medical Branch vitamin B-1 Yes [id number] 50mg Take 1 [facility] (VITAMIN 7-08 tablet by ity of B-1) 50 mg 00:00: mouth [place] tablet 00 daily. Medical Branch cholecalcif Yes [id number] Unsure of [facility] tamika, 7-08 dose. ity of vitamin D3, 00:00: [place] 1,000 unit 00 Medical tablet Branch vitamin 2018-0 Yes [id number] 5000ug Take 5 U nivers B-12 1,000 7-08 tablets by ity of mcg tablet 00:00: mouth [place] 00 daily. Medical Branch vitamin B-1 Yes [id number] 50mg Take 1 [facility] (VITAMIN 7-08 tablet by ity of B-1) 50 mg 00:00: mouth [place] tablet 00 daily. Medical Branch cholecalcif Yes [id number] Unsure of [facility] tamika, 7-08 dose. ity of vitamin D3, 00:00: [place] 1,000 unit 00 Medical tablet Branch vitamin 2019-0 Yes [id number] 5000ug Take 5 U nivers B-12 1,000 7-08 tablets by ity of mcg tablet 00:00: mouth [place] 00 daily. Medical Branch vitamin B-1 Yes [id number] 50mg Take 1 [facility] (VITAMIN 7-08 tablet by ity of B-1) 50 mg 00:00: mouth [place] tablet 00 daily. Medical Branch cholecalcif Yes [id number] Unsure of [facility] tamika, 7-08 dose. ity of vitamin D3, 00:00: [place] 1,000 unit 00 Medical tablet Branch vitamin 2019- Yes [id number] 5000ug Take 5 U nivers B-12 1,000 7-08 tablets by ity of mcg tablet 00:00: mouth [place] 00 daily. Medical Branch vitamin B-1 Yes [id number] 50mg Take 1 [facility] (VITAMIN 7-08 tablet by ity of B-1) 50 mg 00:00: mouth [place] tablet 00 daily. Medical Branch cholecalcif Yes [id number] Unsure of [facility] tamika, 7-08 dose. ity of vitamin D3, 00:00: [place] 1,000 unit 00 Medical tablet Branch vitamin 2019- Yes [id number] 5000ug Take 5 U nivers B-12 1,000 7-08 tablets by ity of mcg tablet 00:00: mouth [place] 00 daily. Medical Branch vitamin B-1 2018- Yes [id number] 50mg Take 1 [facility] (VITAMIN 7-08 tablet by ity of B-1) 50 mg 00:00: mouth [place] tablet 00 daily. Medical Branch cholecalcif 2018- Yes [id number] Unsure of [facility] tamika, 7-08 dose. ity of vitamin D3, 00:00: [place] 1,000 unit 00 Medical tablet Branch vitamin 2019-0 Yes [id number] 5000ug Take 5 U nivers B-12 1,000 7-08 tablets by ity of mcg tablet 00:00: mouth [place] 00 daily. Medical Branch vitamin B-1 Yes [id number] 50mg Take 1 [facility] (VITAMIN 7-08 tablet by ity of B-1) 50 mg 00:00: mouth [place] tablet 00 daily. Medical Branch cholecalcif 2018- Yes [id number] Unsure of [facility] tamika, 7-08 dose. ity of vitamin D3, 00:00: [place] 1,000 unit 00 Medical tablet Branch vitamin 2019-0 Yes [id number] 5000ug Take 5 U nivers B-12 1,000 7-08 tablets by ity of mcg tablet 00:00: mouth [place] 00 daily. Medical Branch vitamin B-1 Yes [id number] 50mg Take 1 [facility] (VITAMIN 7-08 tablet by ity of B-1) 50 mg 00:00: mouth [place] tablet 00 daily. Medical Branch cholecalcif 2018- Yes [id number] Unsure of [facility] tamika, 7-08 dose. ity of vitamin D3, 00:00: [place] 1,000 unit 00 Medical tablet Branch vitamin 2019-0 Yes [id number] 5000ug Take 5 U nivers B-12 1,000 7-08 tablets by ity of mcg tablet 00:00: mouth [place] 00 daily. Medical Branch vitamin B-1 2018- Yes [id number] 50mg Take 1 [facility] (VITAMIN 7-08 tablet by ity of B-1) 50 mg 00:00: mouth [place] tablet 00 daily. Medical Branch cholecalcif 2018- Yes [id number] Unsure of [facility] tamika, 7-08 dose. ity of vitamin D3, 00:00: [place] 1,000 unit 00 Medical tablet Branch vitamin 2019-0 Yes [id number] 5000ug Take 5 U nivers B-12 1,000 7-08 tablets by ity of mcg tablet 00:00: mouth [place] 00 daily. Medical Branch vitamin B-1 2018- Yes [id number] 50mg Take 1 [facility] (VITAMIN 7-08 tablet by ity of B-1) 50 mg 00:00: mouth [place] tablet 00 daily. Medical Branch cholecalcif 2018- Yes [id number] Unsure of [facility] tamika, 7-08 dose. ity of vitamin D3, 00:00: [place] 1,000 unit 00 Medical tablet Branch cholecalcif 2018- Yes [id number] Unsure of [facility] tamika, 7-08 dose. ity of vitamin D3, 00:00: [place] 1,000 unit 00 Medical tablet Branch vitamin 2018-0 Yes [id number] 5000ug Take 5 U nivers B-12 1,000 7-08 tablets by ity of mcg tablet 00:00: mouth [place] 00 daily. Medical Branch vitamin B-1 Yes [id number] 50mg Take 1 [facility] (VITAMIN 7-08 tablet by ity of B-1) 50 mg 00:00: mouth [place] tablet 00 daily. Medical Branch vitamin 2019-0 Yes [id number] 5000ug Take 5 U nivers B-12 1,000 7-08 tablets by ity of mcg tablet 00:00: mouth [place] 00 daily. Medical Branch vitamin B-1 Yes [id number] 50mg Take 1 [facility] (VITAMIN 7-08 tablet by ity of B-1) 50 mg 00:00: mouth [place] tablet 00 daily. Medical Branch cholecalcif 2018- Yes [id number] Unsure of [facility] tamika, 7-08 dose. ity of vitamin D3, 00:00: [place] 1,000 unit 00 Medical tablet Branch vitamin 2019-0 Yes [id number] 5000ug Take 5 U nivers B-12 1,000 7-08 tablets by ity of mcg tablet 00:00: mouth [place] 00 daily. Medical Branch vitamin B-1 Yes [id number] 50mg Take 1 [facility] (VITAMIN 7-08 tablet by ity of B-1) 50 mg 00:00: mouth [place] tablet 00 daily. Medical Branch cholecalcif 2018- Yes [id number] Unsure of [facility] tamika, 7-08 dose. ity of vitamin D3, 00:00: [place] 1,000 unit 00 Medical tablet Branch vitamin Yes [id number] 5000ug Take 5 U nivers B-12 1,000 7-08 tablets by ity of mcg tablet 00:00: mouth [place] 00 daily. Medical Branch vitamin B-1 Yes [id number] 50mg Take 1 [facility] (VITAMIN 7-08 tablet by ity of B-1) 50 mg 00:00: mouth [place] tablet 00 daily. Medical Branch cholecalcif Yes [id number] Unsure of [facility] tamika, 7-08 dose. ity of vitamin D3, 00:00: [place] 1,000 unit 00 Medical tablet Branch vitamin Yes [id number] 5000ug Take 5 U nivers B-12 1,000 7-08 tablets by ity of mcg tablet 00:00: mouth [place] 00 daily. Medical Branch vitamin B-1 Yes [id number] 50mg Take 1 [facility] (VITAMIN 7-08 tablet by ity of B-1) 50 mg 00:00: mouth [place] tablet 00 daily. Medical Branch cholecalcif Yes [id number] Unsure of [facility] tamika, 7-08 dose. ity of vitamin D3, 00:00: [place] 1,000 unit 00 Medical tablet Branch vitamin Yes [id number] 5000ug Take 5 U nivers B-12 1,000 7-08 tablets by ity of mcg tablet 00:00: mouth [place] 00 daily. Medical [place] vitamin B-1 Yes [id number] 50mg Take 1 [facility] (VITAMIN 7-08 tablet by ity of B-1) 50 mg 00:00: mouth [place] tablet 00 daily. Medical Branch Insulin 2019- No DX: E11.9 [facility] ers Syringe-Nee 08-03 Use as ity o f dle U-100 00:00: 00:00 [place] (BD INSULIN 00 :00 QID Medical SYRINGE Branch ULTRA-FINE) 0.3 mL 31 gauge x 5/16" Syrg turmeric 2018- Yes [id number] 1{tbl} Take 1 [facility] root 4-11 tablet by ity of extract 500 00:00: mouth [place] mg Cap 00 daily. Medical Branch turmeric 2018- Yes [id number] 1{tbl} Take 1 [facility] root 4-11 tablet by ity of extract 500 00:00: mouth [place] mg Cap 00 daily. Medical Branch turmeric Yes [id number] 1{tbl} Take 1 [facility] root 4-11 tablet by ity of extract 500 00:00: mouth [place] mg Cap 00 daily. Medical Branch turmeric Yes [id number] 1{tbl} Take 1 [facility] root 4-11 tablet by ity of extract 500 00:00: mouth [place] mg Cap 00 daily. Medical Branch turmeric Yes [id number] 1{tbl} Take 1 [facility] root 4-11 tablet by ity of extract 500 00:00: mouth [place] mg Cap 00 daily. Medical Branch turmeric Yes [id number] 1{tbl} Take 1 [facility] root 4-11 tablet by ity of extract 500 00:00: mouth [place] mg Cap 00 daily. Medical Branch turmeric Yes [id number] 1{tbl} Take 1 [facility] root 4-11 tablet by ity of extract 500 00:00: mouth [place] mg Cap 00 daily. Medical Branch turmeric Yes [id number] 1{tbl} Take 1 [facility] root 4-11 tablet by ity of extract 500 00:00: mouth [place] mg Cap 00 daily. Medical Branch turmeric Yes [id number] 1{tbl} Take 1 [facility] root 4-11 tablet by ity of extract 500 00:00: mouth [place] mg Cap 00 daily. Medical Branch turmeric Yes [id number] 1{tbl} Take 1 [facility] root 4-11 tablet by ity of extract 500 00:00: mouth [place] mg Cap 00 daily. Medical Branch turmeric 0 Yes [id number] 1{tbl} Take 1 [facility] root 4-11 tablet by ity of extract 500 00:00: mouth [place] mg Cap 00 daily. Medical Branch turmeric Yes [id number] 1{tbl} Take 1 [facility] root 4-11 tablet by ity of extract 500 00:00: mouth [place] mg Cap 00 daily. Medical Branch turmeric Yes [id number] 1{tbl} Take 1 [facility] root 4-11 tablet by ity of extract 500 00:00: mouth [place] mg Cap 00 daily. Medical Branch turmeric Yes [id number] 1{tbl} Take 1 [facility] root 4-11 tablet by ity of extract 500 00:00: mouth [place] mg Cap 00 daily. Medical Branch meloxicam Yes [id number] 15mg Take 1 U nivers 15 mg 4-11 tablet by ity of tablet 00:00: mouth [place] 00 daily. Medical Branch turmeric Yes [id number] 1{tbl} Take 1 [facility] root 4-11 tablet by ity of extract 500 00:00: mouth [place] mg Cap 00 daily. Medical Branch meloxicam Yes [id number] 15mg Take 1 U nivers 15 mg 4-11 tablet by ity of tablet 00:00: mouth [place] 00 daily. Medical Branch turmeric Yes [id number] 1{tbl} Take 1 [facility] root 4-11 tablet by ity of extract 500 00:00: mouth [place] mg Cap 00 daily. Medical Branch meloxicam Yes [id number] 15mg Take 1 U nivers 15 mg 4-11 tablet by ity of tablet 00:00: mouth [place] 00 daily. Medical Branch turmeric Yes [id number] 1{tbl} Take 1 [facility] root 4-11 tablet by ity of extract 500 00:00: mouth [place] mg Cap 00 daily. Medical Branch meloxicam Yes [id number] 15mg Take 1 U nivers 15 mg 4-11 tablet by ity of tablet 00:00: mouth [place] 00 daily. Medical Branch turmeric Yes [id number] 1{tbl} Take 1 [facility] root 4-11 tablet by ity of extract 500 00:00: mouth [place] mg Cap 00 daily. Medical Branch turmeric Yes [id number] 1{tbl} Take 1 [facility] root 4-11 tablet by ity of extract 500 00:00: mouth [place] mg Cap 00 daily. Medical Branch turmeric Yes [id number] 1{tbl} Take 1 [facility] root 4-11 tablet by ity of extract 500 00:00: mouth [place] mg Cap 00 daily. Medical Branch turmeric Yes [id number] 1{tbl} Take 1 [facility] root 4-11 tablet by ity of extract 500 00:00: mouth [place] mg Cap 00 daily. Medical Branch turmeric Yes [id number] 1{tbl} Take 1 [facility] root 4-11 tablet by ity of extract 500 00:00: mouth [place] mg Cap 00 daily. Medical Branch turmeric 0 Yes [id number] 1{tbl} Take 1 [facility] root 4-11 tablet by ity of extract 500 00:00: mouth [place] mg Cap 00 daily. Medical Branch turmeric Yes [id number] 1{tbl} Take 1 [facility] root 4-11 tablet by ity of extract 500 00:00: mouth [place] mg Cap 00 daily. Medical Branch turmeric 0 Yes [id number] 1{tbl} Take 1 [facility] root 4-11 tablet by ity of extract 500 00:00: mouth [place] mg Cap 00 daily. Medical Branch turmeric Yes [id number] 1{tbl} Take 1 [facility] root 4-11 tablet by ity of extract 500 00:00: mouth [place] mg Cap 00 daily. Medical Branch turmeric Yes [id number] 1{tbl} Take 1 [facility] root 4-11 tablet by ity of extract 500 00:00: mouth [place] mg Cap 00 daily. Medical Branch turmeric Yes [id number] 1{tbl} Take 1 [facility] root 4-11 tablet by ity of extract 500 00:00: mouth [place] mg Cap 00 daily. Medical Branch turmeric Yes [id number] 1{tbl} Take 1 [facility] root 4-11 tablet by ity of extract 500 00:00: mouth [place] mg Cap 00 daily. Medical Branch turmeric Yes [id number] 1{tbl} Take 1 [facility] root 4-11 tablet by ity of extract 500 00:00: mouth [place] mg Cap 00 daily. Medical Branch turmeric 0 Yes [id number] 1{tbl} Take 1 [facility] root 4-11 tablet by ity of extract 500 00:00: mouth [place] mg Cap 00 daily. Medical Branch turmeric 0 Yes [id number] 1{tbl} Take 1 [facility] root 4-11 tablet by ity of extract 500 00:00: mouth [place] mg Cap 00 daily. Medical Branch turmeric Yes [id number] 1{tbl} Take 1 [facility] root 4-11 tablet by ity of extract 500 00:00: mouth [place] mg Cap 00 daily. Medical Branch turmeric Yes [id number] 1{tbl} Take 1 [facility] root 4-11 tablet by ity of extract 500 00:00: mouth [place] mg Cap 00 daily. Medical Branch turmeric 2019- Yes [id number] 1{tbl} Take 1 [facility] root 4-11 tablet by ity of extract 500 00:00: mouth [place] mg Cap 00 daily. Medical Branch turmeric 2018- Yes [id number] 1{tbl} Take 1 [facility] root 4-11 tablet by ity of extract 500 00:00: mouth [place] mg Cap 00 daily. Medical Branch meloxicam 2019- No [id number] 15mg Take 1 [facility] 15 mg 4-11 09-09 tablet by ity of tablet 00:00: 00:00 mouth [place] 00 :00 daily. Medical Branch gabapentin 2018- Yes [id number] 900mg Take 3 [facility] 300 mg 2-22 capsules ity of capsule 00:00: [place] mouth 3 [place] 00 (three) Medical times Branch daily. gabapentin 2018- Yes [id number] 900mg Take 3 [facility] 300 mg 2-22 capsules ity of capsule 00:00: [place] mouth 3 [place] 00 (three) Medical times Branch daily. gabapentin 2019- No [id number] 900mg Take 3 [facility] 300 mg 2-22 08-15 capsules ity of capsule 00:00: 00:00 by mouth 3 [place] 00 :00 (three) Medical times Branch daily. levothyroxi Yes [id number] 125ug Take 1 [facility] ne 125 mcg 2-10 tablet by ity of tablet 00:00: mouth [place] 00 every Medical morning. Branch levothyroxi 2018- Yes [id number] 125ug Take 1 [facility] ne 125 mcg 2-10 tablet by ity of tablet 00:00: mouth [place] 00 every Medical morning. Branch levothyroxi Yes [id number] 125ug Take 1 [facility] ne 125 mcg 2-10 tablet by ity of tablet 00:00: mouth [place] 00 every Medical morning. Branch levothyroxi Yes [id number] 125ug Take 1 [facility] ne 125 mcg 2-10 tablet by ity of tablet 00:00: mouth [place] 00 every Medical morning. Branch levothyroxi 0 2019- No [id number] 125ug Take 1 [facility] ne 125 mcg 2-10 - tablet by ity of tablet 00:00: 00:00 mouth [place] 00 :00 every Medical morning. Branch hydroCHLORO 2017-02 Yes [id number] 50mg Take 1 U nivers thiazide 50 1-30 tablet by ity of mg tablet 00:00: mouth [place] 00 daily. For Medical blood Branch pressure. hydroCHLORO 2017-02 Yes [id number] 50mg Take 1 U nivers thiazide 50 1-30 tablet by ity of mg tablet 00:00: mouth [place] 00 daily. For Medical blood Branch pressure. hydroCHLORO 2017-02 Yes [id number] 50mg Take 1 U nivers thiazide 50 1-30 tablet by ity of mg tablet 00:00: mouth [place] 00 daily. For Medical blood Branch pressure. hydroCHLORO 2017-02 Yes [id number] 50mg Take 1 U nivers thiazide 50 1-30 tablet by ity of mg tablet 00:00: mouth [place] 00 daily. For Medical blood Branch pressure. hydroCHLORO 2017-02 Yes [id number] 50mg Take 1 U nivers thiazide 50 1-30 tablet by ity of mg tablet 00:00: mouth [place] 00 daily. For Medical blood Branch pressure. atorvastati 2017-02 Yes 20mg Take 1 Univ ers n (LIPITOR) 1-12 tablet by ity of 20 mg 00:00: mouth at [place] tablet 00 bedtime. Medical For Branch cholestero l insulin 2017-02 Yes [id number] 5U inject 5 U nivers regular 1-12 Units ity of human 00:00: under the [place] (HUMULIN R 00 skin 3 Medical REGULAR (three) Branch U-100 times INSULN) 100 daily unit/mL before injection meals. losartan 2017-02 Yes [id number] 100mg Take 1 [facility] vers 100 mg 1-12 tablet by ity of tablet 00:00: mouth [place] 00 daily. For Medical blood Branch pressure metFORMIN 2017-02 Yes [id number] 1000mg Take 1 [facility] 1,000 mg 1-12 tablet by ity of tablet 00:00: mouth 2 [place] 00 (two) Medical times Branch daily with meals. For diabetes insulin 2017-02 Yes [id number] 30U inject 30 [facility] glargine 1-12 Units ity of (LANTUS 00:00: under the [place] U-100 00 skin at Medical INSULIN) bedtime. Branch 100 unit/mL injection atorvastati 2017-02 Yes 20mg Take 1 [facility] ers n (LIPITOR) 1-12 tablet by ity of 20 mg 00:00: mouth at [place] tablet 00 bedtime. Medical For Branch cholestero l insulin 2017-02 Yes [id number] 5U inject 5 U nivers regular 1-12 Units ity of human 00:00: under the [place] (HUMULIN R 00 skin 3 Medical REGULAR (three) Branch U-100 times INSULN) 100 daily unit/mL before injection meals. losartan 2017-02 Yes [id number] 100mg Take 1 [facility] vers 100 mg 1-12 tablet by ity of tablet 00:00: mouth [place] 00 daily. For Medical blood Branch pressure metFORMIN 2017-02 Yes [id number] 1000mg Take 1 [facility] 1,000 mg 1-12 tablet by ity of tablet 00:00: mouth 2 00 (two) Medical times Branch daily with meals. For diabetes insulin 2017-02 Yes [id number] 30U inject 30 [facility] glargine 1-12 Units ity of (LANTUS 00:00: under the [place] U-100 00 skin at Medical INSULIN) bedtime. Branch 100 unit/mL injection atorvastati 2017-02 Yes 20mg Take 1 Univ ers n (LIPITOR) 1-12 tablet by ity of 20 mg 00:00: mouth at [place] tablet 00 bedtime. Medical For Branch cholestero l insulin 2017-02 Yes [id number] 5U inject 5 U nivers regular 1-12 Units ity of human 00:00: under the [place] (HUMULIN R 00 skin 3 Medical REGULAR (three) Branch U-100 times INSULN) 100 daily unit/mL before injection meals. losartan 2017-02 Yes [id number] 100mg Take 1 [facility] vers 100 mg 1-12 tablet by ity of tablet 00:00: mouth [place] 00 daily. For Medical blood Branch pressure metFORMIN 2017-02 Yes [id number] 1000mg Take 1 [facility] 1,000 mg 1-12 tablet by ity of tablet 00:00: mouth 2 00 (two) Medical times Branch daily with meals. For diabetes insulin 2017-02 Yes [id number] 30U inject 30 [facility] glargine 1-12 Units ity of (LANTUS 00:00: under the [place] U-100 00 skin at Medical INSULIN) bedtime. Branch 100 unit/mL injection atorvastati 2017-02 Yes 20mg Take 1 [facility] ers n (LIPITOR) 1-12 tablet by ity of 20 mg 00:00: mouth at [place] tablet 00 bedtime. Medical For Branch cholestero l insulin 2017-02 Yes [id number] 5U inject 5 U nivers regular 1-12 Units ity of human 00:00: under the [place] (HUMULIN R 00 skin 3 Medical REGULAR (three) Branch U-100 times INSULN) 100 daily unit/mL before injection meals. losartan 2017-02 Yes [id number] 100mg Take 1 [facility] vers 100 mg 1-12 tablet by ity of tablet 00:00: mouth [place] 00 daily. For Medical blood Branch pressure metFORMIN 2017-02 Yes [id number] 1000mg Take 1 [facility] 1,000 mg 1-12 tablet by ity of tablet 00:00: mouth 2 00 (two) Medical times Branch daily with meals. For diabetes insulin 2017-02 Yes [id number] 30U inject 30 [facility] glargine 1-12 Units ity of (LANTUS 00:00: under the [place] U-100 00 skin at Medical INSULIN) bedtime. Branch 100 unit/mL injection atorvastati 2017-02 Yes 20mg Take 1 [facility] ers n (LIPITOR) 1-12 tablet by ity of 20 mg 00:00: mouth at [place] tablet 00 bedtime. Medical For Branch cholestero l insulin 2017-02 Yes [id number] 5U inject 5 U nivers regular 1-12 Units ity of human 00:00: under the [place] (HUMULIN R 00 skin 3 Medical REGULAR (three) Branch U-100 times INSULN) 100 daily unit/mL before injection meals. losartan 2017-02 Yes [id number] 100mg Take 1 [facility] vers 100 mg 1-12 tablet by ity of tablet 00:00: mouth [place] 00 daily. For Medical blood Branch pressure metFORMIN 2017-02 Yes [id number] 1000mg Take 1 [facility] 1,000 mg 1-12 tablet by ity of tablet 00:00: mouth 2 [place] 00 (two) Medical times Branch daily with meals. For diabetes insulin 2017-02 Yes [id number] 30U inject 30 [facility] glargine 1-12 Units ity of (LANTUS 00:00: under the [place] U-100 00 skin at Medical INSULIN) bedtime. Branch 100 unit/mL injection Insulin Yes Check [facility] Syringes, 1-22 Fingerstic ity of Disposable, 00:00: k blood [place] 1 mL Syrg 00 glucose Medical qid. Branch Please dispense the relion syringes. RX#[id number] 4 ICD-E11.9 Insulin 0 Yes Check [facility] Syringes, 1-22 Fingerstic ity of Disposable, 00:00: k blood [place] 1 mL Syrg 00 glucose Medical qid. Branch Please dispense the relion syringes. RX#[id number] 4 ICD-E11.9 Insulin Yes Check [facility] Syringes, 1-22 Fingerstic ity of Disposable, 00:00: k blood [place] 1 mL Syrg 00 glucose Medical qid. Branch Please dispense the relion syringes. RX#[id number] 4 ICD-E11.9 Insulin Yes Check [facility] Syringes, 1-22 Fingerstic ity of Disposable, 00:00: k blood [place] 1 mL Syrg 00 glucose Medical qid. Branch Please dispense the relion syringes. RX#[id number] 4 ICD-E11.9 Insulin Yes Check [facility] Syringes, 1-22 [place]ingerstic ity of Disposable, 00:00: k blood [place] 1 mL Syrg 00 glucose Medical qid. Branch Please dispense the relion syringes. [id number] 4 ICD-E11.9 Insulin Yes Check [facility] Syringes, 1-22 Fingerstic ity of Disposable, 00:00: k blood [place] 1 mL Syrg 00 glucose Medical qid. Branch Please dispense the relion syringes. RX#[id number] 4 ICD-E11.9 Insulin Yes Check [facility] Syringes, 1-22 Fingerstic ity of Disposable, 00:00: k blood [place] 1 mL Syrg 00 glucose Medical qid. Branch Please dispense the relion syringes. [id number] 4 ICD-E11.9 Insulin Yes Check [facility] Syringes, 1-22 [place]ingerstic ity of Disposable, 00:00: k blood [place] 1 mL Syrg 00 glucose Medical qid. Branch Please dispense the relion syringes. RX#[id number] 4 ICD-E11.9 Insulin 0 Yes Check [facility] Syringes, 1-22 [place] ity of Disposable, 00:00: k blood [place] 1 mL Syrg 00 glucose Medical qid. Branch Please dispense the relion syringes. [id number] 4 ICD-E11.9 Insulin Yes Check [facility] Syringes, 1-22 [place]ingerstic ity of Disposable, 00:00: k blood [place] 1 mL Syrg 00 glucose Medical qid. Branch Please dispense the relion syringes. [id number] 4 ICD-E11.9 Insulin Yes Check [facility] Syringes, 1-22 [place] ity of Disposable, 00:00: k blood [place] 1 mL Syrg 00 glucose Medical qid. Branch Please dispense the relion syringes. [id number] 4 ICD-E11.9 Insulin Yes Check [facility] Syringes, 1-22 [place] ity of Disposable, 00:00: k blood [place] 1 mL Syrg 00 glucose Medical qid. Branch Please dispense the relion syringes. [id number] 4 ICD-E11.9 Insulin Yes Check [facility] Syringes, 1-22 [place] ity of Disposable, 00:00: k blood [place] 1 mL Syrg 00 glucose Medical qid. Branch Please dispense the relion syringes. RX#[id number] 4 ICD-E11.9 Insulin Yes Check [facility] Syringes, 1-22 [place]ingerstic ity of Disposable, 00:00: k blood [place] 1 mL Syrg 00 glucose Medical qid. Branch Please dispense the relion syringes. [id number] 4 ICD-E11.9 Insulin Yes Check [facility] Syringes, 1-22 [place]ingerstic ity of Disposable, 00:00: k blood [place] 1 mL Syrg 00 glucose Medical qid. Branch Please dispense the relion syringes. [id number] 4 ICD-E11.9 Insulin Yes Check [facility] Syringes, 1-22 [place]ingerstic ity of Disposable, 00:00: k blood [place] 1 mL Syrg 00 glucose Medical qid. Branch Please dispense the relion syringes. [id number] 4 ICD-E11.9 Insulin Yes Check [facility] Syringes, 1-22 [place]ingerstic ity of Disposable, 00:00: k blood [place] 1 mL Syrg 00 glucose Medical qid. Branch Please dispense the relion syringes. [id number] 4 ICD-E11.9 Insulin Yes Check [facility] Syringes, 1-22 Fingerstic ity of Disposable, 00:00: k blood [place] 1 mL Syrg 00 glucose Medical qid. Branch Please dispense the relion syringes. RX#[id number] 4 ICD-E11.9 Insulin 0 Yes Check [facility] Syringes, 1-22 Fingerstic ity of Disposable, 00:00: k blood [place] 1 mL Syrg 00 glucose Medical qid. Branch Please dispense the relion syringes. [id number] 4 ICD-E11.9 Insulin 0 Yes Check [facility] Syringes, 1-22 Fingerstic ity of Disposable, 00:00: k blood [place] 1 mL Syrg 00 glucose Medical qid. Branch Please dispense the relion syringes. [id number] 4 ICD-E11.9 Insulin Yes Check [facility] Syringes, 1-22 Fingerstic ity of Disposable, 00:00: k blood [place] 1 mL Syrg 00 glucose Medical qid. Branch Please dispense the relion syringes. [id number] 4 ICD-E11.9 Insulin Yes Check [facility] Syringes, 1-22 Fingerstic ity of Disposable, 00:00: k blood [place] 1 mL Syrg 00 glucose Medical qid. Branch Please dispense the relion syringes. RX#[id number] 4 ICD-E11.9 Insulin 0 Yes Check [facility] Syringes, 1-22 Fingerstic ity of Disposable, 00:00: k blood [place] 1 mL Syrg 00 glucose Medical qid. Branch Please dispense the relion syringes. [id number] 4 ICD-E11.9 Insulin Yes Check [facility] Syringes, 1-22 Fingerstic ity of Disposable, 00:00: k blood [place] 1 mL Syrg 00 glucose Medical qid. Branch Please dispense the relion syringes. [id number] 4 ICD-E11.9 Insulin 0 Yes Check [facility] Syringes, 1-22 Fingerstic ity of Disposable, 00:00: k blood [place] 1 mL Syrg 00 glucose Medical qid. Branch Please dispense the relion syringes. RX#[id number] 4 ICD-E11.9 Insulin 0 Yes Check [facility] Syringes, 1-22 Fingerstic ity of Disposable, 00:00: k blood [place] 1 mL Syrg 00 glucose Medical qid. Branch Please dispense the relion syringes. [id number] 4 ICD-E11.9 Insulin 0 Yes Check [facility] Syringes, 1-22 Fingerstic ity of Disposable, 00:00: k blood [place] 1 mL Syrg 00 glucose Medical qid. Branch Please dispense the relion syringes. [id number] 4 ICD-E11.9 Insulin Yes Check [facility] Syringes, 1-22 Fingerstic ity of Disposable, 00:00: k blood [place] 1 mL Syrg 00 glucose Medical qid. Branch Please dispense the relion syringes. [id number] 4 ICD-E11.9 Insulin Yes Check [facility] Syringes, 1-22 Fingerstic ity of Disposable, 00:00: k blood [place] 1 mL Syrg 00 glucose Medical qid. Branch Please dispense the relion syringes. RX#[id number] 4 ICD-E11.9 Insulin Yes Check [facility] Syringes, 1-22 Fingerstic ity of Disposable, 00:00: k blood [place] 1 mL Syrg 00 glucose Medical qid. Branch Please dispense the relion syringes. RX#[id number] 4 ICD-E11.9 Insulin Yes Check [facility] Syringes, 1-22 Fingerstic ity of Disposable, 00:00: k blood [place] 1 mL Syrg 00 glucose Medical qid. Branch Please dispense the relion syringes. RX#[id number] ICD-E11.9 Insulin Yes Check Univers Syringes, 1-22 Fingerstic ity of Disposable, 00:00: k blood [place] as 1 mL Syrg 00 glucose Medical qid. Branch Please dispense the relion syringes. RX#[id number] ICD-E11.9 Insulin Yes Check Univers Syringes, 1-22 Fingerstic ity of Disposable, 00:00: k blood [place] as 1 mL Syrg 00 glucose Medical qid. Branch Please dispense the relion syringes. RX#[id number] ICD-E11.9 Insulin 0 Yes Check Univers Syringes, 1-22 Fingerstic ity of Disposable, 00:00: k blood [place] as 1 mL Syrg 00 glucose Medical qid. Branch Please dispense the relion syringes. RX#[id number] ICD-E11.9 Insulin 2018-0 Yes Check Univers Syringes, 1-22 Fingerstic ity of Disposable, 00:00: k blood [place] as 1 mL Syrg 00 glucose Medical qid. Branch Please dispense the relion syringes. RX#[id number] ICD-E11.9 Insulin 2017-0 Yes Check Univers Syringes, 1-22 Fingerstic ity of Disposable, 00:00: k blood [place] as 1 mL Syrg 00 glucose Medical qid. Branch Please dispense the relion syringes. RX#[id number] ICD-E11.9 Lancets & 2013-0 Yes [id number] Univ ers Blood 8-12 ity of Glucose 00:00: [place] Strips (ONE 00 Medical TOUCH Branch COMBO) Cmpk Lancets & 2013-0 Yes [id number] Univ ers Blood 8-12 ity of Glucose 00:00: [place] Strips ( 00 Medical TOUCH Branch COMBO) Cmpk Lancets & 2013-0 Yes [id number] Univ ers Blood 8-12 ity of Glucose 00:00: [place] Strips ( 00 Medical TOUCH Branch COMBO) Cmpk Lancets & 2013-0 Yes [id number] Univ ers Blood 8-12 ity of Glucose 00:00: [place] Strips (ONE 00 Medical TOUCH Branch COMBO) Cmpk Lancets & 2013-0 Yes [id number] Univ ers Blood 8-12 ity of Glucose 00:00: [place] Strips ( 00 Medical TOUCH Branch COMBO) Cmpk Lancets & 2013-0 Yes [id number] Univ ers Blood 8-12 ity of Glucose 00:00: [place] Strips ( 00 Medical TOUCH Branch COMBO) Cmpk Lancets & 2013-0 Yes [id number] Univ ers Blood 8-12 ity of Glucose 00:00: [place] Strips ( 00 Medical TOUCH Branch COMBO) Cmpk Lancets & 2013-0 Yes [id number] Univ ers Blood 8-12 ity of Glucose 00:00: [place] Strips ( 00 Medical TOUCH Branch COMBO) Cmpk Lancets & 2013-0 Yes [id number] Univ ers Blood 8-12 ity of Glucose 00:00: [place] Strips ( 00 Medical TOUCH Branch COMBO) Cmpk Lancets & 2013-0 Yes [id number] Univ ers Blood 8-12 ity of Glucose 00:00: [place] Strips ( 00 Medical TOUCH Branch COMBO) Cmpk Lancets & 2013-0 Yes [id number] Univ ers Blood 8-12 ity of Glucose 00:00: [place] Strips (ONE 00 Medical TOUCH Branch COMBO) Cmpk Lancets & 2013-0 Yes [id number] Univ ers Blood 8-12 ity of Glucose 00:00: [place] Strips (ONE 00 Medical TOUCH Branch COMBO) Cmpk Lancets & 2013-0 Yes [id number] Univ ers Blood 8-12 ity of Glucose 00:00: [place] Strips (ONE 00 Medical TOUCH Branch COMBO) Cmpk Lancets & 2013-0 Yes [id number] Univ ers Blood 8-12 ity of Glucose 00:00: [place] Strips (ONE 00 Medical TOUCH Branch COMBO) Cmpk Lancets & 2013-0 Yes [id number] Univ ers Blood 8-12 ity of Glucose 00:00: [place] Strips (ONE 00 Medical TOUCH Branch COMBO) Cmpk Lancets & 2013-0 Yes [id number] Univ ers Blood 8-12 ity of Glucose 00:00: [place] Strips (ONE 00 Medical TOUCH Branch COMBO) Cmpk Lancets & 2013-0 Yes [id number] Univ ers Blood 8-12 ity of Glucose 00:00: [place] Strips (ONE 00 Medical TOUCH Branch COMBO) Cmpk Lancets & 2013-0 Yes [id number] Univ ers Blood 8-12 ity of Glucose 00:00: [place] Strips (ONE 00 Medical TOUCH Branch COMBO) Cmpk Lancets & 2013-0 Yes [id number] Univ ers Blood 8-12 ity of Glucose 00:00: [place] Strips ( 00 Medical TOUCH Branch COMBO) Cmpk Lancets & 2013-0 Yes [id number] Univ ers Blood 8-12 ity of Glucose 00:00: [place] Strips (ONE 00 Medical TOUCH Branch COMBO) Cmpk Lancets & 2013-0 Yes [id number] Univ ers Blood 8-12 ity of Glucose 00:00: [place] Strips (ONE 00 Medical TOUCH Branch COMBO) Cmpk Lancets & 2013-0 Yes [id number] Univ ers Blood 8-12 ity of Glucose 00:00: [place] Strips (ONE 00 Medical TOUCH Branch COMBO) Cmpk Lancets & 2013-0 Yes [id number] Univ ers Blood 8-12 ity of Glucose 00:00: [place] Strips ( 00 Medical TOUCH Branch COMBO) Cmpk Lancets & 2013-0 Yes [id number] Univ ers Blood 8-12 ity of Glucose 00:00: [place] Strips (ONE 00 Medical TOUCH Branch COMBO) Cmpk Lancets & 2013-0 Yes [id number] Univ ers Blood 8-12 ity of Glucose 00:00: [place] Strips (ONE 00 Medical TOUCH Branch COMBO) Cmpk Lancets & 2013-0 Yes [id number] Univ ers Blood 8-12 ity of Glucose 00:00: [place] Strips (ONE 00 Medical TOUCH Branch COMBO) Cmpk Lancets & 2013-0 Yes [id number] Univ ers Blood 8-12 ity of Glucose 00:00: [place] Strips (ONE 00 Medical TOUCH Branch COMBO) Cmpk Lancets & 2013-0 Yes [id number] Univ ers Blood 8-12 ity of Glucose 00:00: [place] Strips (ONE 00 Medical TOUCH Branch COMBO) Cmpk Lancets & 2012-0 Yes [id number] Univ ers Blood 8-12 ity of Glucose 00:00: [place] Strips ( 00 Medical TOUCH Branch COMBO) Cmpk Lancets & 2013-0 Yes [id number] Univ ers Blood 8-12 ity of Glucose 00:00: [place] Strips ( 00 Medical TOUCH Branch COMBO) Cmpk Lancets & 2012-0 Yes [id number] Univ ers Blood 8-12 ity of Glucose 00:00: [place] Strips (ONE 00 Medical TOUCH Branch COMBO) Cmpk Lancets & 2013-0 Yes [id number] Univ ers Blood 8-12 ity of Glucose 00:00: [place] Strips ( 00 Medical TOUCH Branch COMBO) Cmpk Lancets & 2013-0 Yes [id number] Univ ers Blood 8-12 ity of Glucose 00:00: [place] Strips (ONE 00 Medical TOUCH Branch COMBO) Cmpk Lancets & 2013-0 Yes [id number] Univ ers Blood 8-12 ity of Glucose 00:00: [place] Strips ( 00 Medical TOUCH Branch COMBO) Cmpk Lancets & 2013-0 Yes [id number] Univ ers Blood 8-12 ity of Glucose 00:00: [place] Strips ( 00 Medical TOUCH Branch COMBO) Cmpk Lancets & 2013-0 Yes [id number] Univ ers Blood 8-12 ity of Glucose 00:00: [place] Strips ( 00 Medical TOUCH Branch COMBO) Cmpk Cushion 2011-02 Yes [id number] Univer s (CERVICAL 1-26 ity of PILLOW/COVE 00:00: [place] R) Mis 00 Medical Branch Cushion 2011-02 Yes [id number] Univer s (CERVICAL 1-26 ity of PILLOW/COVE 00:00: [place] R) Mis 00 Medical Branch Cushion 2011-02 Yes [id number] Univer s (CERVICAL 1-26 ity of PILLOW/COVE 00:00: [place] R) Mis 00 Medical Branch Cushion 2011-02 Yes [id number] Univer s (CERVICAL 1-26 ity of PILLOW/COVE 00:00: [place] R) Mis 00 Medical Branch Cushion 2011-02 Yes [id number] Univer s (CERVICAL 1-26 ity of PILLOW/COVE 00:00: [place] R) Mis 00 Medical Branch Cushion 2011-02 Yes [id number] Univer s (CERVICAL 1-26 ity of PILLOW/COVE 00:00: [place] R) Mis 00 Medical Branch Cushion 2011-02 Yes [id number] Univer s (CERVICAL 1-26 ity of PILLOW/COVE 00:00: [place] R) Mis 00 Medical Branch Cushion 2011-02 Yes [id number] Univer s (CERVICAL 1-26 ity of PILLOW/COVE 00:00: [place] R) Mis 00 Medical Branch Cushion 2011-02 Yes [id number] Univer s (CERVICAL 1-26 ity of PILLOW/COVE 00:00: [place] R) Mis 00 Medical Branch Cushion 2011-02 Yes [id number] Univer s (CERVICAL 1-26 ity of PILLOW/COVE 00:00: [place] R) Mis 00 Medical Branch Cushion 2011-02 Yes [id number] Univer s (CERVICAL 1-26 ity of PILLOW/COVE 00:00: [place] R) Mis 00 Medical Branch Cushion 2011-02 Yes [id number] Univer s (CERVICAL 1-26 ity of PILLOW/COVE 00:00: [place] R) Mis 00 Medical Branch Cushion 2011-02 Yes [id number] Univer s (CERVICAL 1-26 ity of PILLOW/COVE 00:00: [place] R) Mis 00 Medical Branch Cushion 2011-02 Yes [id number] Univer s (CERVICAL 1-26 ity of PILLOW/COVE 00:00: [place] R) Mis 00 Medical Branch Cushion 2011-02 Yes [id number] Univer s (CERVICAL 1-26 ity of PILLOW/COVE 00:00: [place] R) Mis 00 Medical Branch Cushion 2011-02 Yes [id number] Univer s (CERVICAL 1-26 ity of PILLOW/COVE 00:00: [place] R) Mis 00 Medical Branch Cushion 2011-02 Yes [id number] Univer s (CERVICAL 1-26 ity of PILLOW/COVE 00:00: [place] R) Mis 00 Medical Branch Cushion 2011-02 Yes [id number] Univer s (CERVICAL 1-26 ity of PILLOW/COVE 00:00: [place] R) Mis 00 Medical Branch Cushion 2011-02 Yes [id number] Univer s (CERVICAL 1-26 ity of PILLOW/COVE 00:00: [place] R) Mis Medical Branch Cushion 2011-02 Yes [id number] Univer s (CERVICAL 1-26 ity of PILLOW/COVE 00:00: [place] R) [facility] 00 Medical Branch Cushion 2011-02 Yes [id number] Univer s (CERVICAL 1-26 ity of PILLOW/COVE 00:00: [place] R) Mis 00 Medical Branch Cushion 2011-02 Yes [id number] Univer s (CERVICAL 1-26 ity of PILLOW/COVE 00:00: [place] R) Mis 00 Medical Branch Cushion 2011-02 Yes [id number] Univer s (CERVICAL 1-26 ity of PILLOW/COVE 00:00: [place] R) Mis 00 Medical Branch Cushion 2011-02 Yes [id number] Univer s (CERVICAL 1-26 ity of PILLOW/COVE 00:00: [place] R) Mis 00 Medical Branch Cushion 2011-02 Yes [id number] Univer s (CERVICAL 1-26 ity of PILLOW/COVE 00:00: [place] R) Mis 00 Medical Branch Cushion 2011-02 Yes [id number] Univer s (CERVICAL 1-26 ity of PILLOW/COVE 00:00: [place] R) Mis 00 Medical Branch Cushion 2011-02 Yes [id number] Univer s (CERVICAL 1-26 ity of PILLOW/COVE 00:00: [place] R) Mis 00 Medical Branch Cushion 2011-02 Yes [id number] Univer s (CERVICAL 1-26 ity of PILLOW/COVE 00:00: [place] R) [facility] 00 Medical Branch Cushion 2011-02 Yes [id number] Univer s (CERVICAL 1-26 ity of PILLOW/COVE 00:00: [place] R) [facility] 00 Medical Branch Cushion 2011-02 Yes [id number] Univer s (CERVICAL 1-26 ity of PILLOW/COVE 00:00: [place] R) [facility] 00 Medical Branch Cushion 2011-02 Yes [id number] Univer s (CERVICAL 1-26 ity of PILLOW/COVE 00:00: [place] R) [facility] 00 Medical Branch Cushion 2011-02 Yes [id number] Univer s (CERVICAL 1-26 ity of PILLOW/COVE 00:00: [place] R) [facility] 00 Medical Branch Cushion 2011-02 Yes [id number] Univer s (CERVICAL 1-26 ity of PILLOW/COVE 00:00: [place] R) [facility] 00 Medical Branch Cushion 2011-02 Yes [id number] Univer s (CERVICAL 1-26 ity of PILLOW/COVE 00:00: [place] R) [facility] 00 Medical Branch Cushion 2011-02 Yes [id number] Univer s (CERVICAL 1-26 ity of PILLOW/COVE 00:00: [place] R) [facility] 00 Medical Branch Cushion 2011-02 Yes [id number] Univer s (CERVICAL 1-26 ity of PILLOW/COVE 00:00: [place] R) [facility] 00 Medical Branch Immunizations Ordered Filled Immunization Date Status Comments [facility] e Immunization Name Name SARS-COV-2 COVID-19 2020-04-12 Completed Unive rsity of PFIZER VACCINE 00:00:00 [facility] SARS-COV-2 COVID-19 2020-04-12 Completed Unive rsity of PFIZER VACCINE 00:00:00 [facility] SARS-COV-2 COVID-19 2020-04-12 Completed Unive rsity of PFIZER VACCINE 00:00:00 [facility] SARS-COV-2 COVID-19 2020-04-12 Completed Unive rsity of PFIZER VACCINE 00:00:00 [facility] SARS-COV-2 COVID-19 2020-04-12 Completed Unive rsity of PFIZER VACCINE 00:00:00 [facility] SARS-COV-2 COVID-19 2020-04-12 Completed Unive rsity of PFIZER VACCINE 00:00:00 [facility] SARS-COV-2 COVID-19 2020-04-12 Completed Unive rsity of PFIZER VACCINE 00:00:00 [facility] SARS-COV-2 COVID-19 2020-04-12 Completed Unive rsity of PFIZER VACCINE 00:00:00 [facility] SARS-COV-2 COVID-19 2020-04-12 Completed Unive rsity of PFIZER VACCINE 00:00:00 [facility] SARS-COV-2 COVID-19 2020-04-12 Completed Unive rsity of PFIZER VACCINE 00:00:00 [facility] SARS-COV-2 COVID-19 2020-04-12 Completed Unive rsity of PFIZER VACCINE 00:00:00 [facility] SARS-COV-2 COVID-19 2020-04-12 Completed Unive rsity of PFIZER VACCINE 00:00:00 [facility] SARS-COV-2 COVID-19 2020-04-12 Completed Unive rsity of PFIZER VACCINE 00:00:00 [facility] SARS-COV-2 COVID-19 2020-04-12 Completed Unive rsity of PFIZER VACCINE 00:00:00 [facility] SARS-COV-2 COVID-19 2020-04-12 Completed Unive rsity of PFIZER VACCINE 00:00:00 [facility] SARS-COV-2 COVID-19 2020-03-15 Completed Unive rsity of PFIZER VACCINE 00:00:00 [facility] SARS-COV-2 COVID-19 2020-03-15 Completed Unive rsity of PFIZER VACCINE 00:00:00 [facility] SARS-COV-2 COVID-19 2020-03-15 Completed Unive rsity of PFIZER VACCINE 00:00:00 [facility] SARS-COV-2 COVID-19 2020-03-15 Completed Unive rsity of PFIZER VACCINE 00:00:00 [facility] SARS-COV-2 COVID-19 2020-03-15 Completed Unive rsity of PFIZER VACCINE 00:00:00 [facility] SARS-COV-2 COVID-19 2020-03-15 Completed Unive rsity of PFIZER VACCINE 00:00:00 [facility] SARS-COV-2 COVID-19 2020-03-15 Completed Unive rsity of PFIZER VACCINE 00:00:00 [facility] SARS-COV-2 COVID-19 2020-03-15 Completed Unive rsity of PFIZER VACCINE 00:00:00 [facility] SARS-COV-2 COVID-19 2020-03-15 Completed Unive rsity of PFIZER VACCINE 00:00:00 [facility] SARS-COV-2 COVID-19 2020-03-15 Completed Unive rsity of PFIZER VACCINE 00:00:00 [facility] SARS-COV-2 COVID-19 2020-03-15 Completed Unive rsity of PFIZER VACCINE 00:00:00 [facility] SARS-COV-2 COVID-19 2020-03-15 Completed Unive rsity of PFIZER VACCINE 00:00:00 [facility] SARS-COV-2 COVID-19 2020-03-15 Completed Unive rsity of PFIZER VACCINE 00:00:00 [facility] SARS-COV-2 COVID-19 2020-03-15 Completed Unive rsity of PFIZER VACCINE 00:00:00 [facility] SARS-COV-2 COVID-19 2020-03-15 Completed Unive rsity of PFIZER VACCINE 00:00:00 [facility] Zoster Vaccine 2018-11-13 Completed University of Recombinant 00:00:00 [facility] Zoster Vaccine 2018-11-13 Completed University of Recombinant 00:00:00 [facility] Zoster Vaccine 2018-11-13 Completed University of Recombinant 00:00:00 [facility] Zoster Vaccine 2018-11-13 Completed University of Recombinant 00:00:00 [facility] Zoster Vaccine 2018-11-13 Completed University of Recombinant 00:00:00 [facility] Zoster Vaccine 2018-11-13 Completed University of Recombinant 00:00:00 [facility] Zoster Vaccine 2018-11-13 Completed University of Recombinant 00:00:00 [facility] Zoster Vaccine 2018-11-13 Completed University of Recombinant 00:00:00 [facility] Zoster Vaccine 2018-11-13 Completed University of Recombinant 00:00:00 [facility] Zoster Vaccine 2018-11-13 Completed University of Recombinant 00:00:00 [facility] Zoster Vaccine 2018-11-13 Completed University of Recombinant 00:00:00 [facility] Zoster Vaccine 2018-11-13 Completed University of Recombinant 00:00:00 [facility] Zoster Vaccine 2018-11-13 Completed University of Recombinant 00:00:00 [facility] Zoster Vaccine 2018-11-13 Completed University of Recombinant 00:00:00 [facility] Zoster Vaccine 2018-11-13 Completed University of Recombinant 00:00:00 [facility] Zoster Vaccine 2018-11-13 Completed University of Recombinant 00:00:00 [facility] Zoster Vaccine 2018-11-13 Completed University of Recombinant 00:00:00 [facility] Zoster Vaccine 2018-11-13 Completed University of Recombinant 00:00:00 [facility] Zoster Vaccine 2018-11-13 Completed University of Recombinant 00:00:00 [facility] Zoster Vaccine 2018-11-13 Completed University of Recombinant 00:00:00 [facility] Zoster Vaccine 2018-11-13 Completed University of Recombinant 00:00:00 [facility] Zoster Vaccine 2018-11-13 Completed University of Recombinant 00:00:00 [facility] Zoster Vaccine 2018-11-13 Completed University of Recombinant 00:00:00 [facility] Zoster Vaccine 2018-11-13 Completed University of Recombinant 00:00:00 [facility] Zoster Vaccine 2018-11-13 Completed University of Recombinant 00:00:00 [facility] Zoster Vaccine 2018-11-13 Completed University of Recombinant 00:00:00 [facility] Zoster Vaccine 2018-11-13 Completed University of Recombinant 00:00:00 [facility] Zoster Vaccine 2018-11-13 Completed University of Recombinant 00:00:00 [facility] Zoster Vaccine 2018-11-13 Completed University of Recombinant 00:00:00 [facility] Zoster Vaccine 2018-11-13 Completed University of Recombinant 00:00:00 [facility] Zoster Vaccine 2018-11-13 Completed University of Recombinant 00:00:00 [facility] Influenza Virus 2018-11-10 Completed Universit y of Vaccine 00:00:00 [facility] Influenza Virus 2018-11-10 Completed Universit y of Vaccine 00:00:00 [facility] Influenza Virus 2018-11-10 Completed Universit y of Vaccine 00:00:00 [facility] Influenza Virus 2018-11-10 Completed Universit y of Vaccine 00:00:00 [facility] Influenza Virus 2018-11-10 Completed Universit y of Vaccine 00:00:00 [facility] Influenza Virus 2018-11-10 Completed Universit y of Vaccine 00:00:00 [facility] Influenza Virus 2018-11-10 Completed Universit y of Vaccine 00:00:00 [facility] Influenza Virus 2018-11-10 Completed Universit y of Vaccine 00:00:00 [facility] Influenza Virus 2018-11-10 Completed Universit y of Vaccine 00:00:00 [facility] Influenza Virus 2018-11-10 Completed Universit y of Vaccine 00:00:00 [facility] Influenza Virus 2018-11-10 Completed Universit y of Vaccine 00:00:00 [facility] Influenza Virus 2018-11-10 Completed Universit y of Vaccine 00:00:00 [facility] Influenza Virus 2018-11-10 Completed Universit y of Vaccine 00:00:00 [facility] Influenza Virus 2018-11-10 Completed Universit y of Vaccine 00:00:00 [facility] Influenza Virus 2018-11-10 Completed Universit y of Vaccine 00:00:00 [facility] Influenza Virus 2018-11-10 Completed Universit y of Vaccine 00:00:00 [facility] Influenza Virus 2018-11-10 Completed Universit y of Vaccine 00:00:00 [facility] Influenza Virus 2018-11-10 Completed Universit y of Vaccine 00:00:00 [facility] Influenza Virus 2018-11-10 Completed Universit y of Vaccine 00:00:00 [facility] Influenza Virus 2018-11-10 Completed Universit y of Vaccine 00:00:00 [facility] Influenza Virus 2018-11-10 Completed Universit y of Vaccine 00:00:00 [facility] Influenza Virus 2018-11-10 Completed Universit y of Vaccine 00:00:00 [facility] Influenza Virus 2018-11-10 Completed Universit y of Vaccine 00:00:00 [facility] Influenza Virus 2018-11-10 Completed Universit y of Vaccine 00:00:00 [facility] Influenza Virus 2018-11-10 Completed Universit y of Vaccine 00:00:00 [facility] Influenza Virus 2018-11-10 Completed Universit y of Vaccine 00:00:00 [facility] Influenza Virus 2018-11-10 Completed Universit y of Vaccine 00:00:00 [facility] Influenza Virus 2018-11-10 Completed Universit y of Vaccine 00:00:00 [facility] Influenza Virus 2018-11-10 Completed Universit y of Vaccine 00:00:00 [facility] Influenza Virus 2018-11-10 Completed Universit y of Vaccine 00:00:00 [facility] Influenza Virus 2018-11-10 Completed Universit y of Vaccine 00:00:00 [facility] Zoster Vaccine 2018-09-12 Completed University of Recombinant 00:00:00 [facility] Zoster Vaccine 2018-09-12 Completed University of Recombinant 00:00:00 [facility] Zoster Vaccine 2018-09-12 Completed University of Recombinant 00:00:00 [facility] Zoster Vaccine 2018-09-12 Completed University of Recombinant 00:00:00 [facility] Zoster Vaccine 2018-09-12 Completed University of Recombinant 00:00:00 [facility] Zoster Vaccine 2018-09-12 Completed University of Recombinant 00:00:00 [facility] Zoster Vaccine 2018-09-12 Completed University of Recombinant 00:00:00 [facility] Zoster Vaccine 2018-09-12 Completed University of Recombinant 00:00:00 [facility] Zoster Vaccine 2018-09-12 Completed University of Recombinant 00:00:00 [facility] Zoster Vaccine 2018-09-12 Completed University of Recombinant 00:00:00 [facility] Zoster Vaccine 2018-09-12 Completed University of Recombinant 00:00:00 [facility] Zoster Vaccine 2018-09-12 Completed University of Recombinant 00:00:00 [facility] Zoster Vaccine 2018-09-12 Completed University of Recombinant 00:00:00 [facility] Zoster Vaccine 2018-09-12 Completed University of Recombinant 00:00:00 [facility] Zoster Vaccine 2018-09-12 Completed University of Recombinant 00:00:00 [facility] Zoster Vaccine 2018-09-12 Completed University of Recombinant 00:00:00 [facility] Zoster Vaccine 2018-09-12 Completed University of Recombinant 00:00:00 [facility] Zoster Vaccine 2018-09-12 Completed University of Recombinant 00:00:00 [facility] Zoster Vaccine 2018-09-12 Completed University of Recombinant 00:00:00 [facility] Zoster Vaccine 2018-09-12 Completed University of Recombinant 00:00:00 [facility] Zoster Vaccine 2018-09-12 Completed University of Recombinant 00:00:00 [facility] Zoster Vaccine 2018-09-12 Completed University of Recombinant 00:00:00 [facility] Zoster Vaccine 2018-09-12 Completed University of Recombinant 00:00:00 [facility] Zoster Vaccine 2018-09-12 Completed University of Recombinant 00:00:00 [facility] Zoster Vaccine 2018-09-12 Completed University of Recombinant 00:00:00 [facility] Zoster Vaccine 2018-09-12 Completed University of Recombinant 00:00:00 [facility] Zoster Vaccine 2018-09-12 Completed University of Recombinant 00:00:00 [facility] Zoster Vaccine 2018-09-12 Completed University of Recombinant 00:00:00 [facility] Zoster Vaccine 2018-09-12 Completed [facility] of Recombinant 00:00:00 [facility] Zoster Vaccine 2018-09-12 Completed [facility] of Recombinant 00:00:00 [facility] Zoster Vaccine 2018-09-12 Completed [facility] of Recombinant 00:00:00 [facility] Influenza Virus 2017-10-28 Completed Universit y of Vaccine - Whole 00:00:[address] [facility] Influenza Virus 2017-10-28 Completed Universit y of Vaccine - Whole 00:00:[address] [facility] Influenza Virus 2017-10-28 Completed Universit y of Vaccine - Whole 00:00:[address] [facility] Influenza Virus 2017-10-28 Completed Universit y of Vaccine - Whole 00:00:[address] [facility] Influenza Virus 2017-10-28 Completed Universit y of Vaccine - Whole 00:00:[address] [facility] Influenza Virus 2017-10-28 Completed Universit y of Vaccine - Whole 00:00:[address] [facility] Influenza Virus 2017-10-28 Completed Universit y of Vaccine - Whole 00:00:[address] [facility] Influenza Virus 2017-10-28 Completed Universit y of Vaccine - Whole 00:00:[address] [facility] Influenza Virus 2017-10-28 Completed Universit y of Vaccine - Whole 00:00:[address] [facility] Influenza Virus 2017-10-28 Completed Universit y of Vaccine - Whole 00:00:[address] [facility] Influenza Virus 2017-10-28 Completed Universit y of Vaccine - Whole 00:00:[address] [facility] Influenza Virus 2017-10-28 Completed Universit y of Vaccine - Whole 00:00:[address] [facility] Influenza Virus 2017-10-28 Completed Universit y of Vaccine - Whole 00:00:[address] [facility] Influenza Virus 2017-10-28 Completed Universit y of Vaccine - Whole 00:00:[address] [facility] Influenza Virus 2017-10-28 Completed Universit y of Vaccine - Whole 00:00:[address] [facility] Influenza Virus 2017-10-28 Completed Universit y of Vaccine - Whole 00:00:[address] [facility] Influenza Virus 2017-10-28 Completed [facility]it y of Vaccine - Whole 00:00:[address] [facility] Influenza Virus 2017-10-28 Completed [facility]it y of Vaccine - Whole 00:00:[address] [facility] Influenza Virus 2017-10-28 Completed Universit y of Vaccine - Whole 00:00:[address] [facility] Influenza Virus 2017-10-28 Completed [facility]it y of Vaccine - Whole 00:00:[address] [facility] Influenza Virus 2017-10-28 Completed Universit y of Vaccine - Whole 00:00:[address] [facility] Influenza Virus 2017-10-28 Completed Universit y of Vaccine - Whole 00:00:[address] [facility] Influenza Virus 2017-10-28 Completed [facility]it y of Vaccine - Whole 00:00:[address] [facility] Influenza Virus 2017-10-28 Completed Universit y of Vaccine - Whole 00:00:[address] [facility] Influenza Virus 2017-10-28 Completed Universit y of Vaccine - Whole 00:00:[address] [facility] Influenza Virus 2017-10-28 Completed Universit y of Vaccine - Whole 00:00:[address] [facility] Influenza Virus 2017-10-28 Completed [facility]it y of Vaccine - Whole 00:00:[address] [facility] Influenza Virus 2017-10-28 Completed [facility]it y of Vaccine - Whole 00:00:[address] [facility] Influenza Virus 2017-10-28 Completed [facility]it y of Vaccine - Whole 00:00:[address] [facility] Influenza Virus 2017-10-28 Completed [facility]it y of Vaccine - Whole 00:00:[address] [facility] Influenza Virus 2017-10-28 Completed [facility]it y of Vaccine - Whole 00:00:[address] [facility] Influenza Virus 2017-10-28 Completed Universit y of Vaccine - Whole 00:00:[address] [facility] Influenza Virus 2017-10-28 Completed Universit y of Vaccine - Whole 00:00:[address] [facility] Influenza Virus 2017-10-28 Completed Universit y of Vaccine - Whole 00:00:[address] [facility] Influenza Virus 2017-10-28 Completed Universit y of Vaccine - Whole 00:00:[address] [facility] Influenza Virus 2017-10-28 Completed Universit y of Vaccine - Whole 00:00:[address] [facility] Influenza High Dose 2015-11-21 Completed Unive rsity of 00:00:00 [facility] Influenza High Dose 2015-11-21 Completed Unive rsity of 00:00:00 [facility] Influenza High Dose 2015-11-21 Completed Unive rsity of 00:00:00 [facility] Influenza High Dose 2015-11-21 Completed Unive rsity of 00:00:00 [facility] Influenza High Dose 2015-11-21 Completed Unive rsity of 00:00:00 [facility] Influenza High Dose 2015-11-21 Completed Unive rsity of 00:00:00 [facility] Influenza High Dose 2015-11-21 Completed Unive rsity of 00:00:00 [facility] Influenza High Dose 2015-11-21 Completed Unive rsity of 00:00:00 [facility] Influenza High Dose 2015-11-21 Completed Unive rsity of 00:00:00 [facility] Influenza High Dose 2015-11-21 Completed Unive rsity of 00:00:00 [facility] Influenza High Dose 2015-11-21 Completed Unive rsity of 00:00:00 [facility] Influenza High Dose 2015-11-21 Completed Unive rsity of 00:00:00 [facility] Influenza High Dose 2015-11-21 Completed Unive rsity of 00:00:00 [facility] Influenza High Dose 2015-11-21 Completed Unive rsity of 00:00:00 [facility] Influenza High Dose 2015-11-21 Completed Unive rsity of 00:00:00 [facility] Influenza High Dose 2015-11-21 Completed Unive rsity of 00:00:00 [facility] Influenza High Dose 2015-11-21 Completed Unive rsity of 00:00:00 [facility] Influenza High Dose 2015-11-21 Completed Unive rsity of 00:00:00 [facility] Influenza High Dose 2015-11-21 Completed Unive rsity of 00:00:00 [facility] Influenza High Dose 2015-11-21 Completed Unive rsity of 00:00:00 [facility] Influenza High Dose 2015-11-21 Completed Unive rsity of 00:00:00 [facility] Influenza High Dose 2015-11-21 Completed Unive rsity of 00:00:00 [facility] Influenza High Dose 2015-11-21 Completed Unive rsity of 00:00:00 [facility] Influenza High Dose 2015-11-21 Completed Unive rsity of 00:00:00 [facility] Influenza High Dose 2015-11-21 Completed Unive rsity of 00:00:00 [facility] Influenza High Dose 2015-11-21 Completed Unive rsity of 00:00:00 [facility] Influenza High Dose 2015-11-21 Completed Unive rsity of 00:00:00 [facility] Influenza High Dose 2015-11-21 Completed Unive rsity of 00:00:00 [facility] Influenza High Dose 2015-11-21 Completed Unive rsity of 00:00:00 [facility] Influenza High Dose 2015-11-21 Completed Unive rsity of 00:00:00 [facility] Influenza High Dose 2015-11-21 Completed Unive rsity of 00:00:00 [facility] Influenza High Dose 2015-11-21 Completed Unive rsity of 00:00:00 [facility] Influenza High Dose 2015-11-21 Completed Unive rsity of 00:00:00 [facility] Influenza High Dose 2015-11-21 Completed Unive rsity of 00:00:00 [facility] Influenza High Dose 2015-11-21 Completed Unive rsity of 00:00:00 [facility] Influenza High Dose 2015-11-21 Completed Unive rsity of 00:00:00 [facility] Pneumococcal 2014-05-31 Completed University o f Polysaccharide, [...] Dose 2013-11-09 Completed Unive rsity of 00:00:00 [facility] Influenza High Dose 2013-11-09 Completed Unive rsity of 00:00:00 [facility] Influenza High Dose 2013-11-09 Completed Unive rsity of 00:00:00 [facility] Influenza High Dose 2013-11-09 Completed Unive rsity of 00:00:00 [facility] Influenza High Dose 2013-11-09 Completed Unive rsity of 00:00:00 [facility] Influenza High Dose 2013-11-09 Completed Unive rsity of 00:00:00 [facility] Influenza High Dose 2013-11-09 Completed Unive rsity of 00:00:00 [facility] Influenza High Dose 2013-11-09 Completed Unive rsity of 00:00:00 [facility] Influenza High Dose 2013-11-09 Completed Unive rsity of 00:00:00 [facility] Influenza High Dose 2013-11-09 Completed Unive rsity of 00:00:00 [facility] Influenza High Dose 2013-11-09 Completed Unive rsity of 00:00:00 [facility] Influenza High Dose 2013-11-09 Completed Unive rsity of 00:00:00 [facility] Influenza High Dose 2013-11-09 Completed Unive rsity of 00:00:00 [facility] Influenza High Dose 2013-11-09 Completed Unive rsity of 00:00:00 [facility] Influenza High Dose 2013-11-09 Completed Unive rsity of 00:00:00 [facility] Influenza High Dose 2013-11-09 Completed Unive rsity of 00:00:00 [facility] Influenza High Dose 2013-11-09 Completed Unive rsity of 00:00:00 [facility] Influenza High Dose 2013-11-09 Completed Unive rsity of 00:00:00 [facility] Influenza High Dose 2013-11-09 Completed Unive rsity of 00:00:00 [facility] Influenza High Dose 2013-11-09 Completed Unive rsity of 00:00:00 [facility] Influenza High Dose 2013-11-09 Completed Unive rsity of 00:00:00 [facility] Influenza High Dose 2013-11-09 Completed Unive rsity of 00:00:00 [facility] Influenza High Dose 2013-11-09 Completed Unive rsity of 00:00:00 [facility] Influenza High Dose 2013-11-09 Completed Unive rsity of 00:00:00 [facility] Influenza High Dose 2013-11-09 Completed Unive rsity of 00:00:00 [facility] Influenza High Dose 2013-11-09 Completed Unive rsity of 00:00:00 [facility] Influenza High Dose 2013-11-09 Completed Unive rsity of 00:00:00 [facility] Influenza High Dose 2013-11-09 Completed Unive rsity of 00:00:00 [facility] Influenza High Dose 2013-11-09 Completed Unive rsity of 00:00:00 [facility] Influenza High Dose 2013-11-09 Completed Unive rsity of 00:00:00 [facility] Influenza High Dose 2013-11-09 Completed Unive rsity of 00:00:00 [facility] Influenza High Dose 2013-11-09 Completed Unive rsity of 00:00:00 [facility] Influenza High Dose 2013-11-09 Completed Unive rsity of 00:00:00 [facility] Influenza High Dose 2013-11-09 Completed Unive rsity of 00:00:00 [facility] Influenza High Dose 2013-11-09 Completed Unive rsity of 00:00:00 [facility] Influenza High Dose 2013-11-09 Completed Unive rsity of 00:00:00 [facility] Pneumococcal 7 2012-11-29 Completed University of Conjugate, [...] Branch TD 2012-01-10 Completed [facility] of 00:00:00 [facility] 2012-01-10 Completed [facility] of 00:00:00 [facility] Zoster(Zostavax)( 2012-01-10 Completed Unive rsity of ingles) 00:00:00 [facility] 2012-01-10 Completed [facility] of 00:00:00 [facility] Zoster(Zostavax)( 2012-01-10 Completed Unive rsity of ingles) 00:00:00 [facility] Zoster(Zostavax)( 2012-01-10 Completed Unive rsity of ingles) 00:00:00 [facility] 2012-01-10 Completed [facility] of 00:00:00 [facility] Zoster(Zostavax)( 2012-01-10 Completed Unive rsity of ingles) 00:00:00 [facility] 2012-01-10 Completed University of 00:00:00 [facility] Zoster(Zostavax)( 2012-01-10 Completed Unive rsity of ingles) 00:00:00 [facility] 2012-01-10 Completed University of 00:00:00 [facility] Zoster(Zostavax)( 2012-01-10 Completed Unive rsity of ingles) 00:00:00 [facility] 2012-01-10 Completed University of 00:00:00 [facility] Zoster(Zostavax)( 2012-01-10 Completed Unive rsity of ingles) 00:00:00 [facility] 2012-01-10 Completed University of 00:00:00 [facility] Zoster(Zostavax)( 2012-01-10 Completed Unive rsity of ingles) 00:00:00 [facility] 2012-01-10 Completed University of 00:00:00 [facility] Zoster(Zostavax)( 2012-01-10 Completed Unive rsity of ingles) 00:00:00 [facility] 2012-01-10 Completed University of 00:00:00 [facility] Zoster(Zostavax)( 2012-01-10 Completed Unive rsity of ingles) 00:00:00 [facility] 2012-01-10 Completed University of 00:00:00 [facility] Zoster(Zostavax)( 2012-01-10 Completed Unive rsity of ingles) 00:00:00 [facility] 2012-01-10 Completed University of 00:00:00 [facility] Zoster(Zostavax)( 2012-01-10 Completed Unive rsity of ingles) 00:00:00 [facility] 2012-01-10 Completed University of 00:00:00 [facility] 2012-01-10 Completed [facility] of 00:00:00 [facility] Zoster(Zostavax)( 2012-01-10 Completed Unive rsity of ingles) 00:00:00 [facility] Zoster(Zostavax)( 2012-01-10 Completed Unive rsity of ingles) 00:00:00 [facility] 2012-01-10 Completed University of 00:00:00 [facility] Zoster(Zostavax)( 2012-01-10 Completed Unive rsity of ingles) 00:00:00 [facility] 2012-01-10 Completed University of 00:00:00 [facility] Zoster(Zostavax)( 2012-01-10 Completed Unive rsity of ingles) 00:00:00 [facility] 2012-01-10 Completed University of 00:00:00 [facility] Zoster(Zostavax)( 2012-01-10 Completed Unive rsity of ingles) 00:00:00 [facility] 2012-01-10 Completed University of 00:00:00 [facility] Zoster(Zostavax)( 2012-01-10 Completed Unive rsity of ingles) 00:00:00 [facility] 2012-01-10 Completed University of 00:00:00 [facility] Zoster(Zostavax)( 2012-01-10 Completed Unive rsity of ingles) 00:00:00 [facility] 2012-01-10 Completed [facility] of 00:00:00 [facility] Zoster(Zostavax)( 2012-01-10 Completed Unive rsity of ingles) 00:00:00 [facility] 2012-01-10 Completed University of 00:00:00 [facility] Zoster(Zostavax)( 2012-01-10 Completed Unive rsity of ingles) 00:00:00 [facility] 2012-01-10 Completed [facility] of 00:00:00 [facility] Zoster(Zostavax)( 2012-01-10 Completed Unive rsity of ingles) 00:00:00 [facility] 2012-01-10 Completed [facility] of 00:00:00 [facility] Zoster(Zostavax)( 2012-01-10 Completed Unive rsity of ingles) 00:00:00 [facility] 2012-01-10 Completed [facility] of 00:00:00 [facility] Zoster(Zostavax)( 2012-01-10 Completed Unive rsity of ingles) 00:00:00 [facility] 2012-01-10 Completed University of 00:00:00 [facility] 2012-01-10 Completed [facility] of 00:00:00 [facility] Zoster(Zostavax)( 2012-01-10 Completed Unive rsity of ingles) 00:00:00 [facility] Zoster(Zostavax)( 2012-01-10 Completed Unive rsity of ingles) 00:00:00 [facility] 2012-01-10 Completed [facility] of 00:00:00 [facility] Zoster(Zostavax)( 2012-01-10 Completed Unive rsity of ingles) 00:00:00 [facility] 2012-01-10 Completed [facility] of 00:00:00 [facility] Zoster(Zostavax)( 2012-01-10 Completed Unive rsity of ingles) 00:00:00 [facility] 2012-01-10 Completed [facility] of 00:00:00 [facility] Zoster(Zostavax)( 2012-01-10 Completed Unive rsity of ingles) 00:00:00 [facility] 2012-01-10 Completed [facility] of 00:00:00 [facility] Zoster(Zostavax)( 2012-01-10 Completed Unive rsity of ingles) 00:00:00 [facility] 2012-01-10 Completed [facility] of 00:00:00 [facility] Zoster(Zostavax)( 2012-01-10 Completed Unive rsity of ingles) 00:00:00 [facility] 2012-01-10 Completed [facility] of 00:00:00 [facility] Zoster(Zostavax)( 2012-01-10 Completed Unive rsity of ingles) 00:00:00 [facility] 2012-01-10 Completed [facility] of 00:00:00 [facility] Zoster(Zostavax)( 2012-01-10 Completed Unive rsity of ingles) 00:00:00 [facility] 2012-01-10 Completed [facility] of 00:00:00 [facility] Zoster(Zostavax)( 2012-01-10 Completed Unive rsity of ingles) 00:00:00 [facility] 2012-01-10 Completed [facility] of 00:00:00 [facility] Zoster(Zostavax)( 2012-01-10 Completed Unive rsity of ingles) 00:00:00 [facility] 2012-01-10 Completed University of 00:00:00 [facility] Zoster(Zostavax)( 2012-01-10 Completed Unive rsity of ingles) 00:00:00 [facility] Influenza Virus 2011-12-16 Completed Universit y of Vaccine 00:00:00 [facility] Influenza Virus 2011-12-16 Completed Universit y of Vaccine 00:00:00 [facility] Influenza Virus 2011-12-16 Completed Universit y of Vaccine 00:00:00 [facility] Influenza Virus 2011-12-16 Completed Universit y of Vaccine 00:00:00 [facility] Influenza Virus 2011-12-16 Completed Universit y of Vaccine 00:00:00 [facility] Influenza Virus 2011-12-16 Completed Universit y of Vaccine 00:00:00 [facility] Influenza Virus 2011-12-16 Completed Universit y of Vaccine 00:00:00 [facility] Influenza Virus 2011-12-16 Completed Universit y of Vaccine 00:00:00 [facility] Influenza Virus 2011-12-16 Completed Universit y of Vaccine 00:00:00 [facility] Influenza Virus 2011-12-16 Completed Universit y of Vaccine 00:00:00 [facility] Influenza Virus 2011-12-16 Completed Universit y of Vaccine 00:00:00 [facility] Influenza Virus 2011-12-16 Completed Universit y of Vaccine 00:00:00 [facility] Influenza Virus 2011-12-16 Completed Universit y of Vaccine 00:00:00 [facility] Influenza Virus 2011-12-16 Completed Universit y of Vaccine 00:00:00 [facility] Influenza Virus 2011-12-16 Completed Universit y of Vaccine 00:00:00 [facility] Influenza Virus 2011-12-16 Completed Universit y of Vaccine 00:00:00 [facility] Influenza Virus 2011-12-16 Completed Universit y of Vaccine 00:00:00 [facility] Influenza Virus 2011-12-16 Completed Universit y of Vaccine 00:00:00 [facility] Influenza Virus 2011-12-16 Completed Universit y of Vaccine 00:00:00 [facility] Influenza Virus 2011-12-16 Completed Universit y of Vaccine 00:00:00 [facility] Influenza Virus 2011-12-16 Completed Universit y of Vaccine 00:00:00 [facility] Influenza Virus 2011-12-16 Completed Universit y of Vaccine 00:00:00 [facility] Influenza Virus 2011-12-16 Completed Universit y of Vaccine 00:00:00 [facility] Influenza Virus 2011-12-16 Completed Universit y of Vaccine 00:00:00 [facility] Influenza Virus 2011-12-16 Completed Universit y of Vaccine 00:00:00 [facility] Influenza Virus 2011-12-16 Completed Universit y of Vaccine 00:00:00 [facility] Influenza Virus 2011-12-16 Completed Universit y of Vaccine 00:00:00 [facility] Influenza Virus 2011-12-16 Completed Universit y of Vaccine 00:00:00 [facility] Influenza Virus 2011-12-16 Completed Universit y of Vaccine 00:00:00 [facility] Influenza Virus 2011-12-16 Completed Universit y of Vaccine 00:00:00 [facility] Influenza Virus 2011-12-16 Completed Universit y of Vaccine 00:00:00 [facility] Influenza Virus 2011-12-16 Completed [facility] y [facility] Vaccine 00:00:00 [facility] [facility] Influenza Virus 2011-12-16 Completed Universit y of Vaccine 00:00:00 [facility] Influenza Virus 2011-12-16 Completed Universit y of Vaccine 00:00:00 [facility] Influenza Virus 2011-12-16 Completed Universit y of Vaccine 00:00:00 [facility] Influenza Virus 2011-12-16 Completed Universit y of Vaccine 00:00:00 [facility] Influenza Virus 2008-11-18 Completed Universit y of Vaccine 00:00:00 [facility] Influenza Virus 2008-11-18 Completed Universit y of Vaccine 00:00:00 [facility] Influenza Virus 2008-11-18 Completed Universit y of Vaccine 00:00:00 [facility] Influenza Virus 2008-11-18 Completed Universit y of Vaccine 00:00:00 [facility] Influenza Virus 2008-11-18 Completed Universit y of Vaccine 00:00:00 [facility] Influenza Virus 2008-11-18 Completed Universit y of Vaccine 00:00:00 [facility] Influenza Virus 2008-11-18 Completed Universit y of Vaccine 00:00:00 [facility] Influenza Virus 2008-11-18 Completed Universit y of Vaccine 00:00:00 [facility] Influenza Virus 2008-11-18 Completed Universit y of Vaccine 00:00:00 [facility] Influenza Virus 2008-11-18 Completed Universit y of Vaccine 00:00:00 [facility] Influenza Virus 2008-11-18 Completed Universit y of Vaccine 00:00:00 [facility] Influenza Virus 2008-11-18 Completed Universit y of Vaccine 00:00:00 [facility] Influenza Virus 2008-11-18 Completed Universit y of Vaccine 00:00:00 [facility] Influenza Virus 2008-11-18 Completed Universit y of Vaccine 00:00:00 [facility] Influenza Virus 2008-11-18 Completed Universit y of Vaccine 00:00:00 [facility] Influenza Virus 2008-11-18 Completed Universit y of Vaccine 00:00:00 [facility] Influenza Virus 2008-11-18 Completed Universit y of Vaccine 00:00:00 [facility] Influenza Virus 2008-11-18 Completed Universit y of Vaccine 00:00:00 [facility] Influenza Virus 2008-11-18 Completed Universit y of Vaccine 00:00:00 [facility] Influenza Virus 2008-11-18 Completed Universit y of Vaccine 00:00:00 [facility] Influenza Virus 2008-11-18 Completed Universit y of Vaccine 00:00:00 [facility] Influenza Virus 2008-11-18 Completed Universit y of Vaccine 00:00:00 [facility] Influenza Virus 2008-11-18 Completed Universit y of Vaccine 00:00:00 [facility] Influenza Virus 2008-11-18 Completed Universit y of Vaccine 00:00:00 [facility] Influenza Virus 2008-11-18 Completed Universit y of Vaccine 00:00:00 [facility] Influenza Virus 2008-11-18 Completed Universit y of Vaccine 00:00:00 [facility] Influenza Virus 2008-11-18 Completed Universit y of Vaccine 00:00:00 [facility] Influenza Virus 2008-11-18 Completed Universit y of Vaccine 00:00:00 [facility] Influenza Virus 2008-11-18 Completed Universit y of Vaccine 00:00:00 [facility] Influenza Virus 2008-11-18 Completed Universit y of Vaccine 00:00:00 [facility] Influenza Virus 2008-11-18 Completed Universit y of Vaccine 00:00:00 [facility] Influenza Virus 2008-11-18 Completed Universit y of Vaccine 00:00:00 [facility] Influenza Virus 2008-11-18 Completed Universit y of Vaccine 00:00:00 [facility] Influenza Virus 2008-11-18 Completed Universit y of Vaccine 00:00:00 [facility] Influenza Virus 2008-11-18 Completed Universit y of Vaccine 00:00:00 [facility] Influenza Virus 2008-11-18 Completed Universit y of [...] 15:26:00 138 mm[Hg] Univer sity of pressure [facility] Diastolic blood 2020-11-27 15:26:00 73 mm[Hg] Unive rsity of pressure [facility] Heart rate 2020-11-27 15:26:00 66 /min [facility] [place] [facility] Respiratory rate 2020-11-27 15:26:00 18 /min Univ ersity of [facility] Branch Oxygen saturation in 2020-11-27 15:26:00 98 /min University of Arterial blood by [facility] charito Pulse oximetry Branch Body temperature 2020-11-27 15:11:00 36.11 Lena Univ [facility] [place] [facility] [place] Body weight 2020-11-14 15:22:00 74.8 kg [facility] [place] [facility] [place] BMI 2020-11-14 15:22:00 33.31 kg/m2 Universi ty [...] 98 /min University of Arterial blood by [facility] charito Pulse oximetry Branch Body temperature 2020-11-27 [...] 98 /min University of Arterial blood by [facility] charito Pulse oximetry Branch Respiratory rate 2020-10-23 [...] 98 /min University of Arterial blood by [facility] charito Pulse oximetry Branch Respiratory rate 2020-10-23 [...] 96 /min University of Arterial blood by [facility] Pulse oximetry Branch Systolic blood 2019-08-10 17:19:00 [...] 96 /min University of Arterial blood by [facility] Pulse oximetry Branch Systolic blood 2019-04-20 16:06:00 [...] 98 /min University of Arterial blood by [facility] Pulse oximetry Branch Procedures Procedure Date / Time Performing Source Performed Clinician PHACOEMULSIFICATION OF 2020-11-27 Edyta [facility] CATARACT WITH INTRAOCULAR 14:38:00 Jamar Nicholson l [place] LENS IMPLANT POCT GLUCOSE (AUTOMATED) 2020-11-27 Edyta [facility] 12:52:00 [facility] POCT GLUCOSE (AUTOMATED) 2020-11-27 Edyta [facility] 12:52:00 [facility] COVID-19 (ID NOW RAPID 2020-11-25 [facility] TESTING) 16:23:00 [facility] ASSIGNMENT OF BENEFITS 2020-11-25 [facility] 16[facility]10:46 [facility] PHACOEMULSIFICATION OF 2020-10-23 Edyta [facility] CATARACT WITH INTRAOCULAR 13:42:00 Jamar Nicholson l [place] LENS IMPLANT POCT GLUCOSE(AGE >30DAYS) 2020-10-23 [facility] 12:00:00 Medical [place] POCT GLUCOSE(AGE >30DAYS) 2020-10-23 [facility] 12:00:00 Medical [place] POCT GLUCOSE (AUTOMATED) 2020-10-23 Edyta [facility] 11:59:00 [facility] POCT GLUCOSE (AUTOMATED) 2020-10-23 Edyta [facility] 11:59:00 [facility] CBC WITH DIFF 2020-10-16 Edyta [facility] 17:47:00 [facility] ASSIGNMENT OF BENEFITS 2020-10-16 [facility] 17:07:52 [facility] DME/SUPPLY JUSTIFICATION 2019-08-16 Doctor Unassigned, [facility] 05:01:00 [facility] POCT HEMOGLOBIN A1C TEST [facility] 16[facility]57:[facility] Zehra Brand [facility] ASSIGNMENT OF BENEFITS 2019-04-20 [facility] 15:34:46 [facility] REFERRAL- REQUEST/RESPONSE 2019-01-23 Doctor Unassgeorge, [facility] 06:01:00 [facility] Encounters Start End Encounter Admission Attending Care Care Encounter Source Date/Time Date/Time Type Type Clinicians Facility Department ID 2021-03-26 [facility] [id number] 13:28:02 [facility] 2021-03-11 Outpatient Gallo, [facility] [id number] 14:40:07 [facility] 2021-03-11 Outpatient Gallo, [facility] [id number] 14:16:28 [facility] [id number] [facility] 2021-03-11 Out[facility] Gallo, [facility] [id number] 14:11:10 Roland [id number] [facility] 2021-03-11 Outpatient Gallo, [facility] [id number] 14:10:16 Roland [id number] [facility] 2020-12-16 Outpatient R EDYTA, [facility] [id number] Univers 05:02:12 [facility] 2020-12-15 Outpatient EDYTA, [facility] [id number] Univers 19:17:29 [facility] 2021-03-26 2021-03-26 [facility] [id number] [facility] 2021-03-25 2021-03-25 ambulatory [facility] [id number] [facility] 2021-03-19 2021-03-19 ambulatory [facility] [id number] [facility] 2021-03-18 2021-03-18 ambulatory [facility] [id number] [facility] 2021-03-13 2021-03-13 ambulatory [facility] [id number] [facility] 2021-03-10 2021-03-10 ambulatory [facility] [id number] [facility] 2021-03-09 2021-03-09 ambulatory [facility] [id number] [facility] 2021-01-23 2021-01-23 ambulatory [facility] [id number] [facility] 2020-12-24 2020-12-24 ambulatory [facility] [id number] [facility] 2020-12-22 2020-12-22 ambulatory [facility] [id number] [facility] 2020-11-27 2020-11-27 [facility] 1.2.840.114 [id number] Univers 07:37:00 10:50:00 Encounter Khoi Mancilla [id number] ity [place] [phone] [facility] 071 [place] 2020-11-27 2020-11-27 Surgery [facility] 1.2.840.114 [id number] Univers 09:51:00 10:28:00 Khoi Mancilla 350.1.13.10 i ty of [place] [phone] [facility] 020 Branch 2020-11-25 2020-11-25 Outpatient R [facility] [id number] Univers 11:30:00 11:30:00 [id number] [facility] 2020-11-25 2020-11-25 Outpatient [facility] [id number] Univers 11:30:00 11:30:00 KHOI [facility] 2020-11-25 2020-11-25 Laboratory Only, Adc Test [facility] 1.2.840. 114 [id number] Univers 11:13:10 11:28:10 Only Khoi Lan Laurent 350.1.1 3.10 [place] [phone] [facility] 353 Branch 2020-11-25 2020-11-25 Orders Doctor NAE 1.2.840.114 [id number] Univers 00:00:00 00:00:00 Only Unassigned, JESUS 350.1.13.10 ity of [place] [facility] 4.2.7.2.686 Kyle as [phone] [facility] 009 Branch 2020-11-11 2020-11-11 [facility] 1.2.840.114 [id number] Univers 00:00:00 00:00:00 Zehra Mancilla 350.1.13.10 [place] [phone] Nd dical nal 231 Branch Building 2020-10-23 2020-10-23 Hospital [facility] 1.2.840.114 [id number] Univers 06:56:00 10:08:00 Encounter Khoi Mancilla 350.1.13.10 ity of [place] [phone] [facility] 071 Branch 2020-10-23 2020-10-23 Surgery [facility] 1.2.840.114 [id number] Univers 09:07:00 09:44:00 Khoi Mancilla 350.1.13.10 i ty of [place] [phone] [facility] 020 Branch 2020-10-21 2020-10-21 Laboratory Only, Adc Test [facility] 1.2.840. 114 [id number] Univers 11:48:01 12:03:01 Only Khoi Lan Jamar Mancilla 350.1.1 3.10 [place] [phone] [facility] 353 Branch 2020-10-21 2020-10-21 Outpatient R [facility] [id number] Univers 11:45:00 11:45:00 [id number] ity of [facility] 2020-10-21 2020-10-21 Outpatient R [facility] [id number] Univers 11:45:00 11:45:00 ity of [facility] 2020-10-16 2020-10-16 Outpatient R [facility] [id number] Univers 13:45:00 13:45:00 [id number] ity of [facility] 2020-10-16 2020-10-16 Outpatient R EDYTA, [facility] [id number] Univers 13:45:00 13:45:00 KHOI ity [facility] 2020-10-16 2020-10-16 Truss Builder Korin, [facility] Main [facility] 1.2.8 40.114 [id number] Univers 12:13:01 12:28:01 Visit Khoi Lan 350.1.1 3.10 it[place] [phone] Nd dical [facility] 353 [facility] 2020-10-16 2020-10-16 Orders Doctor NAE 1.2.840.114 [id number] Univers 00:00:00 00:00:00 Only Unassigned, JESUS 350.1.13.10 ity of [place] [facility] 4.2.7.2.686 Kyle as [phone] [address] 2020-04-12 2020-04-12 Outpatient [facility] [id number] Univers 08:45:00 08:45:00 ity of [facility] 2020-04-05 2020-04-05 Outpatient [facility] [id number] Univers 08:45:00 08:45:00 ity of [facility] 2020-03-15 2020-03-15 Outpatient [facility] [id number] Univers 10:30:00 10:30:00 ity [facility] 2019-10-30 2019-10-30 Outpatient R LINDY, [facility] [id number] Univers 10:20:00 10:20:00 [facility] [id number] 2019-10-08 2019-10-08 [facility] [id number] Univers 09:20:00 09:20:00 ZEHRA [id number] ity [facility] 2019-09-29 2019-09-29 [facility] 1.2.840.114 [id number] 00:00:00 00:00:00 Zehra Mancilla 350.1.13.10 [place] 4.2.7.2.686 Professio [phone] [address] 2019-09-29 2019-09-29 Refill [place], [facility] 1.2.840.114 [id number] [facility] 00:00:00 00:00:00 Zehra Alvaradoton 350.1.13.10 [place] [phone] [address] 2019-09-08 2019-09-08 [facility] [place] 1.2.840.114 [id number] 00:00:00 00:00:00 Zehra Alvaradoton 350.1.13.10 [place] 4.2.7.2.686 Professio [phone] [address] 2019-09-08 2019-09-08 [facility] [place], [facility] 1.2.840.114 [id number] Univers 00:00:00 00:00:00 Zehra Alvaradoton 350.1.13.10 [place] [phone] [address] 2019-08-16 2019-08-16 Orders Doctor SONI 1.2.840.114 [id number] 00:00:00 00:00:00 Only Unassigned, JESUS 350.1.13.10 [place] [facility] 4.2.7.2.686 [id number] 009 2019-08-16 2019-08-16 Orders Doctor SONI 1.2.840.114 [id number] Univers 00:00:00 00:00:00 Only Unassigned, JESUS 350.1.13.10 ity of [place] [facility] 4.2.7.2.686 Kyle as [phone] [address] 2019-08-10 2019-08-10 Office [place], [facility] 1.2.840.114 [id number] 12:12:21 12:52:21 Visit Zehra Mancilla 350.1.13.10 [place] 4.2.7.2.686 Professio [phone] [address] 2019-08-10 2019-08-10 [facility] 1.2.840.114 [id number] [facility] 12:12:21 12:52:21 Visit Zehra Mancilla 350.1.13.10 it[place] [phone] [address] 2019-08-10 2019-08-10 [facility] [id number] Univers 12:20:00 12:20:00 [facility]EHRA [id number] [facility] 2019-08-10 2019-08-10 [id number] Univers 12:20:00 12:20:00 ZEHRA [facility] 2019-08-07 2019-08-07 Telephone [facility] 1.2.840.114 [id number] Univers 00:00:00 00:00:00 Zehra Mancilla 350.1.13.10 it[place] [phone] [address] 2019-07-20 2019-07-20 [facility] 1.2.840.114 [id number] Univers 00:00:00 00:00:00 Zehra Mancilla 350.1.13.10 ity [place]2.[place] [phone] [address] 2019-07-19 2019-07-19 [facility] 1.2.840.114 [id number] Univers 00:00:00 00:00:00 Zehra Brand [place] 350.1.13.10 ity [place] 4[place].2.[place] [phone] [address] 2019-07-16 2019-07-16 [facility] 12.840.114 [id number] [facility] 00:00:00 00:00:00 Zehra Brand [place] 350.1.13.10 ity [place] 4[place].2.[place] [phone] [address] 2019-05-21 2019-05-21 [facility] [id number] Univers 00:00:00 00:00:00 ZEHRA ity [facility] 2019-05-02 2019-05-02 [facility] 1.2.840.114 [id number] [facility] 00:00:00 00:00:00 Zehra Alvaradoton 350.1.13.10 ity of [place]2.[place] [phone] [address] 2019-04-24 2019-04-[address] [facility] 1.2.840.114 [id number] [facility] 00:00:00 00:00:00 Zehra Alvaradoton 350.1.13.10 ity of [place] 4[place].2.[place] [phone] [address] 2019-04-20 2019-04-[address] [facility] 12.840.114 [id number] Univers 09:35:10 11:39:26 Visit Zehra Alvaradoton 350.1.13.10 ity of [place].2.[place] [phone] [address] 2019-04-20 2019-04-20 [facility] [id number] Univers 09:40:00 09:40:00 ZEHRA ity [facility] 2019-04-20 2019-04-20 Outpatient R LINDY [facility] [id number] Univers 09:40:00 09:40:00 ZEHRA ity of [facility] 2019-04-20 2019-04-20 Orders Doctor NAE 1.2.840.114 [id number] Univers 00:00:00 00:00:00 Only Unassigned, JESUS 350.1.13.10 ity of [place] [facility] 4.2.7.2.686 Kyle as [phone] [address] 2019-01-23 2019-01-23 Orders Doctor NAE 1.2.840.114 [id number] Univers 00:00:00 00:00:00 Only Unassigned, JESUS 350.1.13.10 ity of [place] [facility] 4.2.7.2.686 Kyle as [phone] [address] 2018-10-20 2018-10-20 [facility] 1.2.840.114 [id number] Univers 00:00:00 00:00:00 Zehra A [place] 350.1.13.10 ity [place] [phone] [facility] 044 [facility] 2018-10-19 2018-10-19 Telephone [facility] 1.2.840.114 [id number] Univers 00:00:00 00:00:00 Zehra A [place] 350.1.13.10 ity [place] 4[place].2.[place] [phone] [address] 2018-09-28 2018-09-28 [facility] 1.2.840.114 [id number] Univers 00:00:00 00:00:00 Zehra A [place] 350.1.13.10 ity [place] 4[place].2.[place] [phone] [address] 2018-09-08 2018-09-08 Telephone [place], [facility] 1.2.840.114 [id number] Univers 00:00:00 00:00:00 Zehra A [place] 350.1.13.10 ity of [place] 4[place].2.[place] [phone] Nd dic[address] 2018-09-08 2018-09-08 Talya Israel [facility] 1.2.840.114 [id number] Univers 00:00:00 00:00:00 Zehra Mancilla 350.1.13.10 it[place]2.[place] [phone] [address] Results Test Description Test Time Test Comments Results Result Comments Source POCT GLUCOSE (AUTOMATED) 2020-11-27 13:02:24 Test Item Value Reference Range Interpretation Comme nts POCT GLU (test code = 9866803134) 152 mg/dL 70-110 H Lab Interpretation (test code = 76506-8) Abnormal [facility] GLUCOSE (AUTOMATED)2020-11-27 13:02:24 Test Item Value Reference Range Interpretation Comments POCT GLU (test code = 6161701780) 152 mg/dL 70-110 H Lab Interpretation (test code = Abnormal 91188-9) [facility] [id number] 12:52:00 Test Item Value Reference Range Interpretation Comments POCT Glu (age>30days) (test code = 152 mg/dL 70-110 A 3342) Lab Interpretation (test code = Abnormal 09331-1) [facility] [id number] 12:52:00 Test Item Value Reference Range Interpretation Comments POCT Glu (age>30days) (test code = 152 mg/dL 70-110 A 3342) Lab Interpretation (test code = Abnormal 95131-6) [facility] GLUCOSE (AUTOMATED)2020-10-23 12:02:13 Test Item Value Reference Range Interpretation Comments POCT GLU (test code = 5839114739) 90 mg/dL 70-110 Lab Interpretation (test code = Normal 83134-3) [facility] GLUCOSE (AUTOMATED)2020-10-23 12:02:13 Test Item Value Reference Range Interpretation Comments POCT GLU (test code = 5736837977) 90 mg/dL 70-110 Lab Interpretation (test code = Normal 64125-5) [facility] GLUCOSE (AUTOMATED)2020-10-23 12:02:13 Test Item Value Reference Range Interpretation Comments POCT GLU (test code = 0132448765) 90 mg/dL 70-110 Lab Interpretation (test code = Normal 34204-6) [facility] GLUCOSE (AUTOMATED)2020-10-23 12:02:13 Test Item Value Reference Range Interpretation Comments POCT GLU (test code = 1352930847) 90 mg/dL 70-110 Lab Interpretation (test code = Normal 66860-1) [facility] [id number] 12:00:00 Test Item Value Reference Range Interpretation Comments POCT Glu (age>30days) (test code = 90 mg/dL 70-110 3342) [facility] [id number] 12:00:00 Test Item Value Reference Range Interpretation Comments POCT Glu (age>30days) (test code = 90 mg/dL 70-110 3342) [facility] [id number] 12:00:00 Test Item Value Reference Range Interpretation Comments POCT Glu (age>30days) (test code = 90 mg/dL 70-110 3342) [facility] [id number] 12:00:00 Test Item Value Reference Range Interpretation Comments POCT Glu (age>30days) (test code = 90 mg/dL 70-110 3342) [facility] WITH [id number] 17:49:32 Test Item Value Reference Range Interpretation Comments WBC (test code = See_Comment [Automated 3790-2) message] The sy stem which generated this result transmitted reference range : 4.30 - 11.10 10*3/?L. The reference range was not used to interpret this result as normal/abnormal . RBC (test code = See_Comment [Automated 149-8) message] The sy stem which generated this [...] (test code = 52.9 fL 39.0-49.9 H 82871-9) RDW-CV (test code = 15.3 % 12.0-15.5 788-0) PLT (test code = See_Comment [Automated 777-3) message] The sy stem which generated this result transmitted reference range : 166 - 358 10*3/ ?L. The reference r loree was not used to interpret this result as normal/abnormal . MPV (test code = 10.8 fL 9.5-12.9 51377-3) NRBC/100 WBC (test See_Comment [Automat ed code = 3241309477) message] The system which generated this result transmitted reference range : 0.0 - 10.0 /100 WBCs. The refer ence range was not u sed to interpret th is result as normal/abnormal . NRBC x10^3 (test code <0.01 See_Comment [Auto mated = 0623761757) message] The s ystem which generated this result transmitted reference range : 10*3/?L. The reference range was not used to interpret this result as normal/abnormal . GRAN MAT (NEUT) % 66.3 % (test code = 770-8) IMM GRAN % (test code 0.40 % = 1332842616) LYMPH % (test code = 23.9 % 736-9) MONO % (test code = 6.6 % 5905-5) EOS % (test code = 1.9 % 713-8) BASO % (test code = 0.9 % 706-2) GRAN MAT x10^3(ANC) 5.19 10*3/uL 1.88-7.09 (test code = 7661609070) IMM GRAN x10^3 (test 0.03 10*3/uL 0.00-0.06 code = 5912111717) LYMPH x10^3 (test code 1.87 10*3/uL 1.32-3.29 = 731-0) MONO x10^3 (test code 0.52 10*3/uL 0.33-0.92 = 742-7) EOS x10^3 (test code = 0.15 10*3/uL 0.03-0.39 711-2) BASO x10^3 (test code 0.07 10*3/uL 0.01-0.07 = 704-7) Lab Interpretation Abnormal (test code = 99598-5) [facility] WITH [id number] 17:49:32 Test Item Value Reference Range Interpretation [...] (test code = 52.9 fL 39.0-49.9 H 95161-6) RDW-CV (test code = 15.3 % 12.0-15.5 788-0) PLT (test code = See_Comment [Automated 777-3) message] The sy stem which generated this result transmitted reference range : 166 - 358 10*3/ ?L. The reference r loree was not used to interpret this result as normal/abnormal . MPV (test code = 10.8 fL 9.5-12.9 27155-9) NRBC/100 WBC (test See_Comment [Automat ed code = [id number]) message] The system which generated this result transmitted reference range : 0.0 - 10.0 /100 WBCs. The refer ence range was not u sed to interpret th is result as normal/abnormal . NRBC x10^3 (test code <0.01 See_Comment [Auto mated = [id number]) message] The s ystem which generated this result transmitted reference range : 10*3/?L. The reference range was not used to interpret this result as normal/abnormal . GRAN MAT (NEUT) % 66.3 % (test code = 770-8) IMM GRAN % (test code 0.40 % = 4786393018) LYMPH % (test code = 23.9 % 736-9) MONO % (test code = 6.6 % 5905-5) EOS % (test code = 1.9 % 713-8) BASO % (test code = 0.9 % 706-2) GRAN MAT x10^3(ANC) 5.19 10*3/uL 1.88-7.09 (test code = 3189379035) IMM GRAN x10^3 (test 0.03 10*3/uL 0.00-0.06 code = 5554477359) LYMPH x10^3 (test code 1.87 10*3/uL 1.32-3.29 = 731-0) MONO x10^3 (test code 0.52 10*3/uL 0.33-0.92 = 742-7) EOS x10^3 (test code = 0.15 10*3/uL 0.03-0.39 711-2) BASO x10^3 (test code 0.07 10*3/uL 0.01-0.07 = 704-7) Lab Interpretation Abnormal (test code = 37581-1) [facility] HEMOGLOBIN A1C [id number] 16:57:00 Test Item Value Reference Range Interpretation Comments POCT HBA1C (test code = 4548-4) 7.6 % 4-6 A Lab Interpretation (test code = Abnormal 65599-3) [facility] HEMOGLOBIN A1C [id number] 16:57:00 Test Item Value Reference Range Interpretation Comments POCT HBA1C (test code = 4548-4) 7.6 % 4-6 A Lab Interpretation (test code = Abnormal 67835-4) [facility]
[2021-03-27 11:08] LABS: Absolute Lymphocytes (CBC) 1.7 K/uL (0.7-4.9); Hematocrit 33.5 % (36.0-45.0); Lymphocytes % 21.6 % (15.3-44.8); MPV 8.9 fL (7.6-11.3); RBC Red Blood Cell Count 3.64 M/uL (3.86-4.86)
[2021-03-27 11:26] LABS: Potassium 3.6 mmol/L (3.5-5.1)
--- NOTE | 2021-03-27 11:35 | RAD REPORT ---
EXAM DESCRIPTION: CT - Stone Protocol - 03/27/2021 11:10 am CLINICAL HISTORY: Flank pain. urinary retention COMPARISON: Stone Protocol dated 03/24/2021 TECHNIQUE: Axial images were obtained without oral or IV contrast. Lack of contrast limits solid org an and vascular assessment. The [id number] spans the entirety of the system partially obscuring uppermost abdomen and lung bases. Coronal reformatted images were obtained and reviewed. All CT scans are performed using dose optimization technique as appropriate and may include automated exposure control or mA/KV adjustment according to patient size. FINDINGS: The lower lung [place] are clear. Cholecystectomy. Imaged portions of the liver and spleen show no suspicious findings on non-contrast imaging. The panc reas and adrenal glands are normal. No pathologic lymphadenopathy in the abdomen or pelvis. No urinary tract stones or obstructive uropathy. Urinary bladder is decompressed by means of a Valdez catheter. No bowel obstruction, free air, free fluid or abscess. The appendix is not identified as a discrete s tructure, however, no secondary findings of appendicitis are identified. Mild sigmoid diverticulosis is present. Moderate to large right lower quadrant ventral hernia containing fat and predominately s mall bowel without obstruction or incarceration. Moderate lumbosacral degenerative changes. IMPRESSION: No urinary tract stones or obstructive uropathy. Moderate right lower quadrant ventral hernia to the right of midline containing small bowel without o bstruction.
[2021-03-27 12:55] LABS: Urine Blood Trace-intact (Negative); Urine Glucose Negative (Negative); Urine Protein Negative (Negative); Urine Specific Gravity <=1.005 (1.005-1.030)
[2021-03-27 13:14] LABS: Urine Bacteria NONE SEEN /HPF (<20); Urine RBC NONE SEEN /HPF (NONE SEEN)
--- NOTE | 2021-03-27 13:17 | ER ---
Nurse's Notes [facility] Name: Hortensia Bergman Age: 75 yrs Sex: Female : 1945 Arrival Date: 03/27/2021 Time: 10:00 Bed 26 Private MD: Roland Gallo Diagnosis: Retention of urine, unspecified Presentation: 03/27 10:09 Chief complaint: Patient states: Unable to urinate well since last night, just ll1 dribbling. States she was admitted last week with a similar problem (had brewer during last admission). Fighting this UTI for at least 3 weeks. Currently on Cipro. No fever. Coronavirus screen: Vaccine status: Patient reports receiving the 2nd dose of the covid vaccine. Client denies travel out of the [place] in the last 14 days. At this time, the client does not indicate any symptoms associated with coronavirus-19. Ebola Screen: Patient denies travel to an Ebola-affected area in the 21 days before illness onset. Initial Sepsis Screen: Does the patient meet any 2 criteria? No. Patient's initial sepsis screen is negative. Does the patient have a suspected source of infection? Yes: Dysuria/Frequency/Urgency/UTI. Risk Assessment: Do you want to hurt yourself or someone else? Patient reports no desire to harm self or others. Onset of symptoms was March 07, 2021. 10:09 Method Of Arrival: Ambulatory ll1 10:09 Acuity: SPARKLE 3 ll1 Triage Assessment: 10:13 General: Appears uncomfortable, Behavior is calm, cooperative, appropriate for age. ll1 Pain: Complains of pain in pelvis Quality of pain is described as pressure. : Reports burning with urination, inability to void, urgency, urinary frequency. Historical: - Allergies: 10:12 Codeine; ll1 10:12 Iodine; ll1 - Home Meds: 11:22 atorvastatin 20 mg Oral tab [Active]; Humulin R 100 unit/mL cap [Active]; eo2 hydrochlorothiazide 50 mg Oral tab 1 tab once daily [Active]; Lantus 100 unit/mL Sub-Q cap [Active]; levothyroxine 100 mcg tab 1 tab once daily [Active]; losartan 100 mg Oral tab [Active]; metformin 1,000 mg Oral tab 1 tab 2 times per day [Active]; - PMHx: 10:12 abd hernia; diabetes mellitus; Hypercholesterolemia; Hypertensive disorder; ll1 - PSHx: 10:12 None; ll1 - Immunization history:: Client reports receiving the 2nd dose of the Covid vaccine. - Social history:: Smoking status: Patient denies any tobacco usage or history of. Screenin:30 Abuse screen: Denies threats or abuse. Denies injuries from another. Has been eo2 threatened or abused. Nutritional screening: No deficits noted. Tuberculosis screening: No symptoms or risk factors identified. Fall Risk Ambulatory Aid- Crutches/Cane/Walker (15 pts). Assessment: 10:45 General: Appears in no apparent distress. uncomfortable, Behavior is calm, cooperative. eo2 Neuro: Level of Consciousness is awake, alert, obeys commands, Oriented to person, place, time, situation, Denies dizziness, headache. Cardiovascular: Denies chest pain, shortness of breath. Respiratory: Airway is patent Trachea midline Respiratory effort is even, unlabored, Respiratory pattern is regular, symmetrical, Breath sounds are clear bilaterally. Denies shortness of breath. GI: Abdomen is round Bowel sounds present X 4 quads. Patient currently denies abdominal pain. : Urine is clear, Reports burning with urination, inability to void, since last night. Vital Signs: 10:09 BP 99 / 53; Pulse 88; Resp 17; Temp 98.1; Pulse Ox 98% ; Weight 74.39 kg; Height 4 ft. ll1 11 in. (149.86 cm); Pain 3/10; 10:30 BP 109 / 50; Pulse 80; Resp 15; Pulse Ox 99% ; eo2 12:21 BP 108 / 55; Pulse 74; Resp 15; Pulse Ox 99% ; Pain 8/10; eo2 13:00 BP 115 / 60; Pulse 72; Resp 15; Pulse Ox 98% ; Pain 8/10; eo2 13:44 BP 122 / 62; Pulse 78; Resp 15; Pulse Ox 97% ; Pain 7/10; eo2 10:09 Body Mass Index 33.12 (74.39 kg, 149.86 cm) ll1 12:21 pt reports headache eo2 ED Course: 10:00 Patient arrived in ED. mr 10:00 Roland Gallo DO is Private Physician. mr 10:10 Helen Hester, RN is Primary Nurse. eo2 10:12 Triage completed. ll1 10:12 Arm band placed on Patient placed in an exam room, on a stretcher. ll1 10:30 Patient has correct armband on for positive identification. Pulse ox on. NIBP on. Door eo2 closed. Noise minimized. Warm blanket given. 10:30 No provider procedures requiring assistance completed. eo2 10:33 C[facility] Mu[facility]C [facility] kb 10:34 Miguel Vieira MD is Attending Physician. kb 10:47 Bladder scan completed. 979ml. eo2 10:50 Inserted saline lock: 22 gauge in right antecubital area, using aseptic technique. eo2 Blood collected. 10:58 Brewer cath inserted, using sterile technique, 16 Fr., by la, balloon inflated, to eo2 gravity drainage. 11:10 CT Stone Protocol In Process Unspecified. EDMS 11:23 Basic Metabolic Panel Sent. eo2 13:15 Emeterio Mcginnis MD is Referral Physician. kb 13:58 IV discontinued, intact. eo2 Administered Medications: 13:50 Drug: Tylenol 1000 mg Route: PO; eo2 13:58 Follow up: Response: No adverse reaction eo2 Outcome: 13:17 Discharge ordered by . kb 13:58 Discharged to home ambulatory, with family. eo2 13:58 Condition: stable 13:58 Discharge instructions given to patient, family, Instructed on discharge instructions, follow up and referral plans. Demonstrated understanding of instructions, follow-up care. 14:06 Patient left the ED. eo2 Signatures: Dispatcher [employer] EDGA Carly Muñoz FNP-C FNP-Ckb Ann Little Juana Gutierrez, RN RN ll1 Helen Hester, LUDY RN eo2
--- NOTE | 2021-03-27 13:17 | EDPHYS ---
Physician Documentation [facility] Name: Hortensia Bergman Age: 75 yrs Sex: Female : 1945 Arrival Date: 03/27/2021 Time: 10:00 Bed 26 Private MD: Sabino [facility] ED Physician Miguel Vieira HPI: 03/27 10:46 This 75 yrs old Female presents to ER via Ambulatory with complaints of kb Urinary Problem. 10:46 The patient presents with urinary symptoms, urinary retention. Onset: The kb symptoms/episode began/occurred 2 week(s) ago. Modifying factors: The symptoms are alleviated by nothing, the symptoms are aggravated by nothing. Associated signs and symptoms: Pertinent positives: urinary retention. Severity of symptoms: At their worst the symptoms were moderate, in the emergency department the symptoms are unchanged. The patient has experienced a previous episode. The patient has been recently seen by a physician:. Pt states she has the urge to urinate, but is unable to fully empty bladder. States she can only go a little bit at a time. Daughter states this has been going on for 2 weeks and pt has been in and out of the hospital for it. . Historical: - Allergies: 10:12 Codeine; ll1 10:12 Iodine; ll1 - Home Meds: 11:22 atorvastatin 20 mg Oral tab [Active]; Humulin R 100 unit/mL cap [Active]; eo2 hydrochlorothiazide 50 mg Oral tab 1 tab once daily [Active]; Lantus 100 unit/mL Sub-Q cap [Active]; levothyroxine 100 mcg tab 1 tab once daily [Active]; losartan 100 mg Oral tab [Active]; metformin 1,000 mg Oral tab 1 tab 2 times per day [Active]; - PMHx: 10:12 abd hernia; diabetes mellitus; Hypercholesterolemia; Hypertensive disorder; ll1 - PSHx: 10:12 None; ll1 - Immunization history:: Client reports receiving the 2nd dose of the Covid vaccine. - Social history:: Smoking status: Patient denies any tobacco usage or history of. ROS: 10:43 Constitutional: Negative for fever, chills, and weight loss. kb 10:43 : Positive for difficulty urinating. 10:43 All other systems are negative. Exam: 10:43 Constitutional: This is a well developed, well nourished patient who is awake, alert, kb and in no acute distress. Head/Face: Normocephalic, atraumatic. ENT: Moist Mucous membranes Respiratory: Respirations even and unlabored. No increased work of breathing. Talking in full sentences Skin: Warm, dry with normal turgor. Normal color. MS/ Extremity: Pulses equal, no cyanosis. Neurovascular intact. Full, normal range of motion. Neuro: Awake and alert, GCS 15, oriented to person, place, time, and situation. Moves all extremities. Normal gait. Psych: Awake, alert, with orientation to person, place and time. Behavior, mood, and affect are within normal limits. 10:43 Abdomen/GI: Inspection: abdomen appears normal, Bowel sounds: normal, Palpation: soft, in all quadrants, moderate abdominal tenderness, in the suprapubic area. Vital Signs: 10:09 BP 99 / 53; Pulse 88; Resp 17; Temp 98.1; Pulse Ox 98% ; Weight 74.39 kg; Height 4 ft. ll1 11 in. (149.86 cm); Pain 3/10; 10:30 BP 109 / 50; Pulse 80; Resp 15; Pulse Ox 99% ; eo2 12:21 BP 108 / 55; Pulse 74; Resp 15; Pulse Ox 99% ; Pain 8/10; eo2 13:00 BP 115 / 60; Pulse 72; Resp 15; Pulse Ox 98% ; Pain 8/10; eo2 13:44 BP 122 / 62; Pulse 78; Resp 15; Pulse Ox 97% ; Pain 7/10; eo2 10:09 Body Mass Index 33.12 (74.39 kg, 149.86 cm) ll1 12:21 pt reports headache eo2 MDM: 10:34 Patient medically screened. kb 10:43 Data reviewed: vital signs, nurses notes. Data interpreted: Pulse oximetry: on room air kb is 98 %. Interpretation: normal. 13:15 Counseling: I had a detailed discussion with the patient and/or guardian regarding: the kb historical points, exam findings, and any diagnostic results supporting the discharge/admit diagnosis, lab results, radiology results, the need for outpatient follow up, a family practitioner, to return to the emergency department if symptoms worsen or persist or if there are any questions or concerns that arise at home. 03/27 10:37 Order name: CBC with Diff; Complete Time: 11:19 kb 03/27 10:37 Order name: Basic Metabolic Panel; Complete Time: 11:26 kb 03/27 10:37 Order name: CT Stone Protocol; Complete Time: 11:46 kb 03/27 12:38 Order name: Urine Microscopic Only; Complete Time: 13:14 kb 03/27 12:55 Order name: Urine Dipstick-Ancillary; Complete Time: 13:06 EDMS 03/27 10:35 Order name: Bladder Scanner; Complete Time: 11:17 kb 03/27 10:37 Order name: IV Start; Complete Time: 11:17 kb 03/27 10:46 Order name: Valdez; Complete Time: 11:17 kb 03/27 12:38 Order name: Urine Dipstick-Ancillary (obtain specimen); Complete Time: 13:35 kb 03/27 13:15 Order name: Leg Bag; Complete Time: 13:56 kb Administered Medications: 13:50 Drug: Tylenol 1000 mg Route: PO; eo2 13:58 Follow up: Response: No adverse reaction eo2 Disposition: 15:22 Co-signature as Attending Physician, Miguel Vieira MD I agree with the assessment and zay plan of care. Disposition Summary: 03/27/21 13:17 Discharge Ordered Location: Home kb Condition: Stable kb Diagnosis - Retention of urine, unspecified kb Followup: kb - With: Emergency Department - When: As needed - Reason: Worsening of condition Followup: kb - With: Private Physician - When: 2 - 3 days - Reason: Recheck today's complaints, Continuance of care, Re-evaluation by your physician Followup: kb - With: Emeterio Mcginnis MD - When: 2 - 3 days - Reason: Recheck today's complaints Discharge Instructions: - Discharge Summary Sheet kb - Acute Urinary Retention, Female, [id number] kb Forms: - Medication Reconciliation Form kb - Thank You Letter kb - Antibiotic Education kb - Prescription Opioid Use kb Signatures: Dispatcher [employer] Carly Rudolph FNP-C FNP-Miguel Weeks MD MD cha Lewis, Lynsay, RN RN ll1 Helen Hester RN RN eo2
[2021-03-27] MEDS ORDERED: ACETAMINOPHEN 500 MG TAB ONE (13:39)
[2021-03-27 14:34] VITALS: TEMP 98.1
[2021-03-27 14:39] VITALS: BP 122/62; O2SAT 97
== END 2021-03-27 14:06 | disposition home or self-care (01) ==
LOC: ER 09:56
DX: R33.9 Retention of urine, unspecified (principal); I10 Essential (primary) hypertension; E11.9 Type 2 diabetes mellitus without complications; E78.00 Pure hypercholesterolemia, unspecified; Z79.4 Long term (current) use of insulin; Z88.5 Allergy status to narcotic agent; Z91.048 Other nonmedicinal substance allergy status
CPT/HCPCS: 36415; 51702; 74176; 76377; 80048; 81003; 81015; 85025; 99284

== ENCOUNTER 2021-03-30 15:17 | Emergency (ER) | payer OTHER ==
--- OUTSIDE RECORDS SUMMARY | 2021-03-30 15:31 | XMS REPORT | Continuity of Care Document ---
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 00:00: [place] without without 00 Medical retinopath retinopath Br anch y y Osteopenia Osteopenia Disease Active U nivers 3-05 ity of 00:00: [place] 00 Medical Branch Arthropath Arthropath Disease Active Overview : Univers y of hand y of hand 3-05 ICD10 ity of 00:00: Diagnosis Term Medical Ssn/Ssbn Assistant Navigator Branch Utility Cervicalgi Cervicalgi Disease Active U nivers a a 3-05 ity of 00:00: [place] 00 Medical Branch Encounter Encounter Disease Active Overview: Univers for for 5-23 ICD10 ity of routine routine 00:00: Diagnosis [place] gynecologi gynecologi 00 Term Me dical charito charito Ssn/Ssbn Assistant Navigator Branch examinatio examinatio Utility n n Insomnia Insomnia Disease Active Overview: Un concepción 2-26 Formattin ity of 00:00: g of this [place] 00 note Medical might be Branch different from the original. ICD10 Diagnosis Term Ssn/Ssbn Assistant Navigator Utility Type 2 Type 2 Disease Active Overview: Shira alejo diabetes diabetes 12 Formattin ity of mellitus mellitus 00:00: g of this [place] as without without 00 note Medical complicati complicati might be Branch on, with on, with different long-term long-term from the current current original. use of use of ICD10 insulin insulin Diagnosis Term Ssn/Ssbn Assistant Navigator Utility Essential Essential Disease Active Uni vers hypertensi hypertensi 7-12 it y of on, benign [place], benign 00:[place]: [place] 00 [place] HLD HLD Disease Active Overview: Shira alejo (hyperlipi (hyperlipi 08-25 Formattin ity of demia) demia) 00:00: g of this [place] 00 note Medical might be Branch different from the original. ICD10 Diagnosis Term Ssn/Ssbn Assistant Navigator Utility Generalize Generalize Disease Active U nivers [...] Quantity Comments Source Exposure to Not sure [facility] SARS-CoV-2 [place] Medical (event) Branch Alcohol intake 2020-11-25 2020-11-25 Current University of 00:00:00 00:00:00 non-drinker of [facility] [place] [facility] alcohol Branch (finding) Tobacco use and 2020-10-21 2020-10-21 Never used Universit y of exposure 00:00:00 00:00:00 [facility] Sex [birth year] Universit y of 00:00:00 00:00:00 [facility] Smoking Status Start Date Stop Date Source Never smoker [facility] Medications Ordered Filled Start Stop Current Ordering Indication Dosage Frequency Signature Comments Components Source Medication Medication Date Date Medication? Clinician (SIG) Name Name tetracaine 2020-02 Yes PRN, Univers (PONTOCAINE 0-14 Starting ity of ) 0.5 % 14:59: on [facility] ophthalmic 00 11/27/20 Medic al drops at 0959, Branch Until Discontinu ed, Routine, Intra-op gentamicin 2020-02 Yes PRN, Univers injection 0-14 Starting ity of 14:59: on [facility] 00 11/27/20 Medical at 0959, [place] Until Discontinu ed, JAYLEN, Intra-op eye block 2020-02 Yes PRN, Univers syringe 11 0-14 Starting ity o f mL 14:59: on [facility] 11/27/20 Medical at 0959, [place] Until Discontinu ed, Intra-op EPINEPHrine 2020-02 Yes PRN, Univer s (PF) 0-14 Starting ity of 1:1,000 (1 14:59: on [facility] mg/mL) 00 11/27/20 Medical (ADRENALIN at 0959, Bran h (PF)) Until injection Discontinu ed, Routine, Intra-op DUOVISC 2020-02 Yes PRN, Univers (DUOVISC 0-14 Starting ity of VISCO 14:59: on [facility] ELASTIC) 3 00 11/27/20 Medic al %-4 %(0.5 at 0959, Branch mL) 1 % Until (0.55 mL) Discontinu intraocular ed, injection Routine, Intra-op tetracaine 2020-02- No PRN, Univer s (PONTOCAINE 0-14 10-14 Starting ity of ) 0.5 % 14:59: 18:15 on [facility] ophthalmic 00 :30 11/27/20 Medic al drops at 0959, Branch Until [facility] 11/27/20 at 1315, Routine, Intra-op gentamicin 2020-02- [...] Routine, DSU Pre-op BD VEO 2020-02 Yes [id number] USE Univ ers INSULIN 0-04 DIRECTED 4 ity of SYR, HALF 00:00: TIMES [place] UNIT, 0.3 00 DAILY Medical mL 31 gauge Branch x 15/64" Syrg BD VEO 2020-02 Yes [id number] USE Univ ers INSULIN 0-04 DIRECTED 4 ity of SYR, HALF 00:00: TIMES [place] UNIT, 0.3 00 DAILY Medical mL 31 gauge Branch x 15/64" Syrg BD VEO 2020-02 Yes [id number] USE Univ ers INSULIN 0-04 DIRECTED 4 [...] ity of no.2 irrig. 14:03: [place] 10/23/20 [place] (BSS) 00 at 09, Medical ophthalmic Until [...] Discontinu ed, JAYLEN, Intra-op balanced Yes PRN, [facility] 10-23 Starting ity of no.2 irrig. [...] [place]as 00 :08 at 0903, Medical Until [facility] Branch 10/23/20 at 1214, JAYLEN, Intra-op balanced 2020- No PRN, [facility] 10-23 Starting ity o f no.2 [...] [place] 00 :08 at 0903, Medical Until [facility] Branch 10/23/20 at 1214, JAYLEN, Intra-op balanced 2020- No PRN, Univers [facility] 10-23 Starting ity o f no.2 [...] Pre-op lactated 2020- [facility] mL/hr, ity of [...] Pre-op lactated 2020- No 1000[facility] 10-23 mL/hr, ity of [...] Routine, DSU Pre-op BD VEO 2020-0 Yes [id number] USE Univ ers INSULIN 8-19 DIRECTED 4 ity of SYRINGE UF 00:00: TIMES [place] 0.3 mL DAILY Medical gauge x Branch 15/64" Syrg BD VEO 2020-0 Yes [id number] USE Univ ers INSULIN 8-19 DIRECTED 4 ity of SYRINGE UF 00:00: TIMES [place] 0.3 mL DAILY Medical gauge x Branch 15/64" Syrg BD VEO 2020-0 Yes [id number] USE Univ ers INSULIN 8-19 DIRECTED 4 ity of SYRINGE UF 00:00: TIMES [place] 0.3 mL DAILY Medical gauge x Branch 15/64" Syrg BD VEO 2020-0 Yes [id number] USE Univ ers INSULIN 8-19 DIRECTED 4 ity of SYRINGE UF 00:00: TIMES [place] 0.3 mL DAILY Medical gauge x Branch 15/64" Syrg BD VEO 2020-0 Yes [id number] USE Univ ers INSULIN 8-19 DIRECTED 4 ity of SYRINGE UF 00:00: TIMES [place] 0.3 mL DAILY Medical gauge x Branch 15/64" Syrg BD VEO 2020-0 Yes [id number] USE Univ ers INSULIN 8-19 DIRECTED 4 ity of SYRINGE UF 00:00: TIMES [place] 0.3 mL 31 DAILY Medical gauge x Branch 15/64" Syrg BD VEO 2020-0 Yes [id number] USE Univ ers INSULIN 8-19 DIRECTED 4 ity of SYRINGE UF 00:00: TIMES [place] 0.3 mL 31 DAILY Medical gauge x Branch 15/64" Syrg BD VEO 2020-0 Yes [id number] USE Univ ers INSULIN 8-19 DIRECTED 4 ity of SYRINGE UF 00:00: TIMES [place] 0.3 mL DAILY Medical gauge x Branch 15/64" Syrg BD VEO 2020-0 Yes [id number] USE Univ ers INSULIN 8-19 DIRECTED 4 ity of SYRINGE UF 00:00: TIMES [place] 0.3 mL DAILY Medical gauge x Branch 15/64" Syrg BD VEO 2020-0 Yes [id number] USE Univ ers INSULIN 8-19 DIRECTED 4 ity of SYRINGE UF 00:00: TIMES [place] 0.3 mL DAILY Medical gauge x Branch 15/64" Syrg BD VEO 2020-0 Yes [id number] USE Univ ers INSULIN 8-19 DIRECTED 4 ity of SYRINGE UF 00:00: TIMES [place] 0.3 mL DAILY Medical gauge x Branch 15/64" Syrg BD VEO 2020-0 Yes [id number] USE Univ ers INSULIN 8-19 DIRECTED 4 ity of SYRINGE UF 00:00: TIMES [place] 0.3 mL 31 DAILY Medical gauge x Branch 15/64" Syrg BD VEO 2020-0 Yes [id number] USE Univ ers INSULIN 8-19 DIRECTED 4 ity of SYRINGE UF 00:00: TIMES [place] 0.3 mL DAILY Medical gauge x Branch 15/64" Syrg BD VEO 2020-0 Yes [id number] USE Univ ers INSULIN 8-19 DIRECTED 4 ity of SYRINGE UF 00:00: TIMES [place] 0.3 mL 31 DAILY Medical gauge x Branch 15/64" Syrg BD VEO 2020-0 Yes [id number] USE Univ ers INSULIN 8-19 DIRECTED 4 ity of SYRINGE UF 00:00: TIMES [place] 0.3 mL 31 DAILY Medical gauge x Branch 15/64" Syrg BD VEO 2020-0 Yes [id number] USE Univ ers INSULIN 8-19 DIRECTED 4 ity of SYRINGE UF 00:00: TIMES [place] 0.3 mL 31 00 DAILY Medical gauge x Branch " Syrg EUTHYROX 2020-0 Yes [id number] TAKE 1 Un concepción 125 mcg 7-30 TABLET BY ity of tablet 00:00: MOUTH ONCE [place] 00 DAILY IN [facility] MORNING EUTHYROX 2020-0 Yes [id number] TAKE 1 Un concepción 125 mcg 7-30 TABLET BY ity of tablet 00:00: MOUTH ONCE [place] 00 DAILY IN [facility] MORNING EUTHYROX 2020-0 Yes [id number] TAKE 1 Un concepción 125 mcg 7-30 TABLET BY ity of tablet 00:00: MOUTH ONCE [place] 00 DAILY IN [facility] MORNING EUTHYROX 2020-0 Yes [id number] TAKE 1 Un concepción 125 mcg 7-30 TABLET BY ity of tablet 00:00: MOUTH ONCE [place] 00 DAILY IN [facility] MORNING EUTHYROX 2020-0 Yes [id number] TAKE 1 Un concepción 125 mcg 7-30 TABLET BY ity of tablet 00:00: MOUTH ONCE [place] 00 DAILY IN [facility] MORNING EUTHYROX 2020-0 Yes [id number] TAKE 1 Un concepción 125 mcg 7-30 TABLET BY ity of tablet 00:00: MOUTH ONCE [place] 00 DAILY IN [facility] MORNING EUTHYROX 2020-0 Yes [id number] TAKE 1 Un concepción 125 mcg 7-30 TABLET BY ity of tablet 00:00: MOUTH ONCE [place] 00 DAILY IN [facility] MORNING EUTHYROX 2020-0 Yes [id number] TAKE 1 Un concepción 125 mcg 7-30 TABLET BY ity of tablet 00:00: MOUTH ONCE [place] 00 DAILY IN [facility] MORNING EUTHYROX 2020-0 Yes [id number] TAKE 1 Un concepción 125 mcg 7-30 TABLET BY ity of tablet 00:00: MOUTH ONCE [place] 00 DAILY IN [facility] MORNING EUTHYROX 2020-0 Yes [id number] TAKE 1 Un concepción 125 mcg 7-30 TABLET BY ity of tablet 00:00: MOUTH ONCE [place] 00 DAILY IN [facility] MORNING EUTHYROX 2020-0 Yes [id number] TAKE 1 Un concepción 125 mcg 7-30 TABLET BY ity of tablet 00:00: MOUTH ONCE [place] 00 DAILY IN [facility] MORNING EUTHYROX 2020-0 Yes [id number] TAKE 1 Un concepción 125 mcg 7-30 TABLET BY ity of tablet 00:00: MOUTH ONCE [place] 00 DAILY IN [facility] MORNING EUTHYROX 2020-0 Yes [id number] TAKE 1 Un concepción 125 mcg 7-30 TABLET BY ity of tablet 00:00: MOUTH ONCE [place] 00 DAILY IN [facility] MORNING EUTHYROX 2020-0 Yes [id number] TAKE 1 Un concepción 125 mcg 7-30 TABLET BY ity of tablet 00:00: MOUTH ONCE [place] 00 DAILY IN [facility] THE [place] MORNING EUTHYROX 2020-0 Yes [id number] TAKE 1 Un concepción 125 mcg 7-30 TABLET BY ity of tablet 00:00: MOUTH ONCE [place] 00 DAILY IN [facility] MORNING EUTHYROX 2020-0 Yes [id number] TAKE 1 Un concepción 125 mcg 7-30 TABLET BY ity of tablet 00:00: MOUTH ONCE [place] 00 DAILY IN [facility] MORNING EUTHYROX 2020-0 Yes [id number] TAKE 1 Un concepción 125 mcg 7-30 TABLET BY ity of tablet 00:00: MOUTH ONCE [place] 00 DAILY IN [facility] THE [place] MORNING PREGABALIN 2020-0 Yes [id number] Take 1 Univers 300 mg 6-05 capsule by ity of capsule 00:00: mouth [place] 00 twice Medical daily Branch PREGABALIN 2020-0 Yes [id number] Take 1 Univers 300 mg 6-05 capsule by ity of capsule 00:00: mouth [place] 00 twice Medical daily Branch PREGABALIN 2020-0 Yes [id number] Take 1 Univers 300 mg 6-05 capsule by ity of capsule 00:00: mouth [place] 00 twice Medical daily Branch PREGABALIN 2020-0 Yes [id number] Take 1 Univers 300 mg 6-05 capsule by ity of capsule 00:00: mouth [place] 00 twice Medical daily Branch PREGABALIN 2020-0 Yes [id number] Take 1 Univers 300 mg 6-05 capsule by ity of capsule 00:00: mouth [place] 00 twice Medical daily Branch PREGABALIN 2020-0 Yes [id number] Take 1 Univers 300 mg 6-05 capsule by ity of capsule 00:00: mouth [place] 00 twice Medical daily Branch PREGABALIN 2020-0 Yes [id number] Take 1 Univers 300 mg 6-05 capsule by ity of capsule 00:00: mouth [place] 00 twice Medical daily Branch PREGABALIN 2020-0 Yes [id number] Take 1 Univers 300 mg 6-05 capsule by ity of capsule 00:00: mouth twice Medical daily Branch PREGABALIN 2020-0 Yes [id number] Take 1 Univers 300 mg 6-05 capsule by ity of capsule 00:00: mouth twice Medical daily Branch PREGABALIN 2020-0 Yes [id number] Take 1 Univers 300 mg 6-05 capsule by ity of capsule 00:00: mouth twice Medical daily Branch PREGABALIN 2020-0 Yes [id number] Take 1 Univers 300 mg 6-05 capsule by ity of capsule 00:00: mouth twice Medical daily Branch PREGABALIN 2020-0 Yes [id number] Take 1 Univers 300 mg 6-05 capsule by ity of capsule 00:00: mouth twice Medical daily Branch PREGABALIN 2020-0 Yes [id number] Take 1 Univers 300 mg 6-05 capsule by ity of capsule 00:00: mouth twice Medical daily Branch PREGABALIN 2020-0 Yes [id number] Take 1 Univers 300 mg 6-05 capsule by ity of capsule 00:00: mouth twice Medical daily Branch PREGABALIN 2020-0 Yes [id number] Take 1 Univers 300 mg 6-05 capsule by ity of capsule 00:00: mouth twice Medical daily Branch PREGABALIN 2020-0 Yes [id number] Take 1 Univers 300 mg 6-05 capsule by ity of capsule 00:00: mouth twice Medical daily Branch PREGABALIN 2020-0 Yes [id number] Take 1 Univers 300 mg 6-05 capsule by ity of capsule 00:00: mouth twice Medical daily Branch PREGABALIN 2020-0 Yes [id number] Take 1 Univers 300 mg 6-05 capsule by ity of capsule 00:00: mouth twice Medical daily Branch PREGABALIN 2020-0 Yes [id number] Take 1 Univers 300 mg 6-05 capsule by ity of capsule 00:00: mouth twice Medical daily Branch PREGABALIN 2020-0 Yes [id number] Take 1 Univers 300 mg 6-05 capsule by ity of capsule 00:00: mouth twice Medical daily Branch PREGABALIN 2020-0 Yes [id number] Take 1 Univers 300 mg 6-05 capsule by ity of capsule 00:00: mouth twice Medical daily Branch PREGABALIN 2020-0 Yes [id number] Take 1 Univers 300 mg 6-05 capsule by ity of capsule 00:00: mouth 00 twice Medical daily Branch METFORMIN 2020-0 Yes [id number] TAKE 1 U nivers 1,000 mg 3-19 TABLET BY ity of tablet 00:00: MOUTH 00 TWICE Medical DAILY WITH Branch MEALS FOR DIABETES METFORMIN 2020-0 Yes [id number] TAKE 1 U nivers 1,000 mg 3-19 TABLET BY ity of tablet 00:00: MOUTH 00 TWICE Medical DAILY WITH Branch MEALS FOR DIABETES METFORMIN 2020-0 Yes [id number] TAKE 1 U nivers 1,000 mg 3-19 TABLET BY ity of tablet 00:00: MOUTH 00 TWICE Medical DAILY WITH Branch MEALS FOR DIABETES METFORMIN 2020-0 Yes [id number] TAKE 1 U nivers 1,000 mg 3-19 TABLET BY ity of tablet 00:00: MOUTH 00 TWICE Medical DAILY WITH Branch MEALS FOR DIABETES METFORMIN 2020-0 Yes [id number] TAKE 1 U nivers 1,000 mg 3-19 TABLET BY ity of tablet 00:00: MOUTH TWICE Medical DAILY WITH Branch MEALS FOR DIABETES METFORMIN 2020-0 Yes [id number] TAKE 1 U nivers 1,000 mg 3-19 TABLET BY ity of tablet 00:00: MOUTH TWICE Medical DAILY WITH Branch MEALS FOR DIABETES METFORMIN 2020-0 Yes [id number] TAKE 1 U nivers 1,000 mg 3-19 TABLET BY ity of tablet 00:00: MOUTH TWICE Medical DAILY WITH Branch MEALS FOR DIABETES METFORMIN 2020-0 Yes [id number] TAKE 1 U nivers 1,000 mg 3-19 TABLET BY ity of tablet 00:00: MOUTH TWICE Medical DAILY WITH Branch MEALS FOR DIABETES METFORMIN 2020-0 Yes [id number] TAKE 1 U nivers 1,000 mg 3-19 TABLET BY ity of tablet 00:00: MOUTH 00 TWICE Medical DAILY WITH Branch MEALS FOR DIABETES METFORMIN 2020-0 Yes [id number] TAKE 1 U nivers 1,000 mg 3-19 TABLET BY ity of tablet 00:00: MOUTH 00 TWICE Medical DAILY WITH Branch MEALS FOR DIABETES METFORMIN 2020-0 Yes [id number] TAKE 1 U nivers 1,000 mg 3-19 TABLET BY ity of tablet 00:00: MOUTH 00 TWICE Medical DAILY WITH Branch MEALS FOR DIABETES METFORMIN 2020-0 Yes [id number] TAKE 1 U nivers 1,000 mg 3-19 TABLET BY ity of tablet 00:00: MOUTH 00 TWICE Medical DAILY WITH Branch MEALS FOR DIABETES METFORMIN 2020-0 Yes [id number] TAKE 1 U nivers 1,000 mg 3-19 TABLET BY ity of tablet 00:00: MOUTH 00 TWICE Medical DAILY WITH Branch MEALS FOR DIABETES METFORMIN 2020-0 Yes [id number] TAKE 1 U nivers 1,000 mg 3-19 TABLET BY ity of tablet 00:00: MOUTH 00 TWICE Medical DAILY WITH Branch MEALS FOR DIABETES METFORMIN 2020-0 Yes [id number] TAKE 1 U nivers 1,000 mg 3-19 TABLET BY ity of tablet 00:00: MOUTH 00 TWICE Medical DAILY WITH Branch MEALS FOR DIABETES METFORMIN 2020-0 Yes [id number] TAKE 1 U nivers 1,000 mg 3-19 TABLET BY ity of tablet 00:00: MOUTH 00 TWICE Medical DAILY WITH Branch MEALS FOR DIABETES METFORMIN 2020-0 Yes [id number] TAKE 1 U nivers 1,000 mg 3-19 TABLET BY ity of tablet 00:00: MOUTH 00 TWICE Medical DAILY WITH Branch MEALS FOR DIABETES METFORMIN 2020-0 Yes [id number] TAKE 1 U nivers 1,000 mg 3-19 TABLET BY ity of tablet 00:00: MOUTH 00 TWICE Medical DAILY WITH Branch MEALS FOR DIABETES METFORMIN 2020-0 Yes [id number] TAKE 1 U nivers 1,000 mg 3-19 TABLET BY ity of tablet 00:00: MOUTH 00 TWICE Medical DAILY WITH Branch MEALS FOR DIABETES METFORMIN 2020-0 Yes [id number] TAKE 1 U nivers 1,000 mg 3-19 TABLET BY ity of tablet 00:00: MOUTH 00 TWICE Medical DAILY WITH Branch MEALS FOR DIABETES METFORMIN 2020-0 Yes [id number] TAKE 1 U nivers 1,000 mg 3-19 TABLET BY ity of tablet 00:00: MOUTH 00 TWICE Medical DAILY WITH Branch MEALS FOR DIABETES METFORMIN 2020-0 Yes [id number] TAKE 1 U nivers 1,000 mg 3-19 TABLET BY ity of tablet 00:00: MOUTH 00 TWICE Medical DAILY WITH Branch MEALS FOR DIABETES METFORMIN 2020-0 Yes [id number] TAKE 1 U nivers 1,000 mg 3-19 TABLET BY ity of tablet 00:00: MOUTH 00 TWICE Medical DAILY WITH Branch MEALS FOR DIABETES METFORMIN 2020-0 Yes [id number] TAKE 1 U nivers 1,000 mg 3-19 TABLET BY ity of tablet 00:00: MOUTH TWICE Medical DAILY WITH Branch MEALS FOR DIABETES METFORMIN 2020-0 Yes [id number] TAKE 1 U nivers 1,000 mg 3-19 TABLET BY ity of tablet 00:00: MOUTH TWICE Medical DAILY WITH Branch MEALS FOR DIABETES blood sugar 2020-0 Yes [id number] Check Univers diagnostic 3-06 sugars 2-3 ity of strip 00:00: times a day. Dx Medical Code Branch E11.9. AccuChek guide me brand. blood sugar 2020-0 Yes [id number] Check Univers diagnostic 3-06 sugars 2-3 ity of strip 00:00: times a day. Dx Medical Code Branch E11.9. AccuChek guide me brand. blood sugar 2020-0 Yes [id number] Check Univers diagnostic 3-06 sugars 2-3 ity of strip 00:00: times a day. Dx Medical Code Branch E11.9. AccuChek guide me brand. blood sugar 2020-0 Yes [id number] Check Univers diagnostic 3-06 sugars 2-3 ity of strip 00:00: times a day. Dx Medical Code Branch E11.9. AccuChek guide me brand. blood sugar 2020-0 Yes [id number] Check Univers diagnostic 3-06 sugars 2-3 ity of strip 00:00: times a day. Dx Medical Code Branch E11.9. AccuChek guide me brand. blood sugar 2020-0 Yes [id number] Check Univers diagnostic 3-06 sugars 2-3 ity of strip 00:00: times a day. Dx Medical Code Branch E11.9. AccuChek guide me brand. blood sugar 2020-0 Yes [id number] Check Univers diagnostic 3-06 sugars 2-3 ity of strip 00:00: times a day. Dx Medical Code Branch E11.9. AccuChek guide me brand. blood sugar 2020-0 Yes [id number] Check Univers diagnostic 3-06 sugars 2-3 ity of strip 00:00: times a day. Dx Medical Code Branch E11.9. AccuChek guide me brand. blood sugar 2020-0 Yes [id number] Check Univers diagnostic 3-06 sugars 2-3 ity of strip 00:00: times a day. Dx Medical Code Branch E11.9. AccuChek guide me brand. blood sugar 2020-0 Yes [id number] Check Univers diagnostic 3-06 sugars 2-3 ity of strip 00:00: times a day. Dx Medical Code Branch E11.9. AccuChek guide me brand. blood sugar 2020-0 Yes [id number] Check Univers diagnostic 3-06 sugars 2-3 ity of strip 00:00: times a day. Dx Medical Code Branch E11.9. AccuChek guide me brand. blood sugar 2020-0 Yes [id number] Check Univers diagnostic 3-06 sugars 2-3 ity of strip 00:00: times a day. Dx Medical Code Branch E11.9. AccuChek guide me brand. blood sugar 2020-0 Yes [id number] Check Univers diagnostic 3-06 sugars 2-3 ity of strip 00:00: times a day. Dx Medical Code Branch E11.9. AccuChek guide me brand. blood sugar 2020-0 Yes [id number] Check Univers diagnostic 3-06 sugars 2-3 ity of strip 00:00: times a day. Dx Medical Code Branch E11.9. AccuChek guide me brand. blood sugar 2020-0 Yes [id number] Check Univers diagnostic 3-06 sugars 2-3 ity of strip 00:00: times a day. Dx Medical Code Branch E11.9. AccuChek guide me brand. blood sugar 2020-0 Yes [id number] Check Univers diagnostic 3-06 sugars 2-3 ity of strip 00:00: times a day. Dx Medical Code Branch E11.9. AccuChek guide me brand. blood sugar 2020-0 Yes [id number] Check Univers diagnostic 3-06 sugars 2-3 ity of strip 00:00: times a day. Dx Medical Code Branch E11.9. AccuChek guide me brand. blood sugar 2020-0 Yes [id number] Check Univers diagnostic 3-06 sugars 2-3 ity of strip 00:00: times a day. Dx Medical Code Branch E11.9. AccuChek guide me brand. blood sugar 2020-0 Yes [id number] Check Univers diagnostic 3-06 sugars 2-3 ity of strip 00:00: times a day. Dx Medical Code Branch E11.9. AccuChek guide me brand. blood sugar 2020-0 Yes [id number] Check Univers diagnostic 3-06 sugars 2-3 ity of strip 00:00: times a [place] 00 day. Dx Medical Code Branch E11.9. AccuChek guide me brand. blood sugar 2020-0 Yes [id number] Check Univers diagnostic 3-06 sugars 2-3 ity of strip 00:00: times a day. Dx Medical Code Branch E11.9. AccuChek guide me brand. blood sugar 2020-0 Yes [id number] Check Univers diagnostic 3-06 sugars 2-3 ity of strip 00:00: times a 00 day. Dx Medical Code Branch E11.9. AccuChek guide me brand. blood sugar 2020-0 Yes [id number] Check Univers diagnostic 3-06 sugars 2-3 ity of strip 00:00: times a day. Dx Medical Code Branch E11.9. AccuChek guide me brand. blood sugar 2020-0 Yes [id number] Check Univers diagnostic 3-06 sugars 2-3 ity of strip 00:00: times a day. Dx Medical Code Branch E11.9. AccuChek guide me brand. blood sugar 2020-0 Yes [id number] Check Univers diagnostic 3-06 sugars 2-3 ity of strip 00:00: times a day. Dx Medical Code Branch E11.9. AccuChek guide me brand. blood sugar 2020-0 Yes [id number] Check Univers diagnostic 3-06 sugars 2-3 ity of strip 00:00: times a day. Dx Medical Code Branch E11.9. AccuChek guide me brand. blood sugar 2020-0 Yes [id number] Check Univers diagnostic 3-06 sugars 2-3 ity of strip 00:00: times a 00 day. Dx Medical Code Branch E11.9. AccuChek guide me brand. blood sugar 2020-0 Yes [id number] Check Univers diagnostic 3-06 sugars 2-3 ity of strip 00:00: times a [place] day. Dx Medical Code Branch E11.9. AccuChek guide me brand. blood sugar 2020-0 Yes [id number] Check Univers diagnostic 3-06 sugars 2-3 ity of strip 00:00: times a 00 day. Dx Medical Code Branch E11.9. AccuChek guide me brand. pregabalin 2019-1 Yes [id number] 300mg Take 1 [facility] 300 mg 2-02 capsule by ity of capsule 00:00: mouth 2 [place] (two) Medical times Branch daily. pregabalin 2018-02 Yes [id number] 300mg Take 1 [facility] 300 mg 2-02 capsule by ity of capsule 00:00: mouth 2 00 (two) Medical times Branch daily. pregabalin 2018-02 Yes [id number] 300mg Take 1 [facility] 300 mg 2-02 capsule by ity of capsule 00:00: mouth 2 [place] (two) Medical times Branch daily. pregabalin 2018-02 Yes [id number] 300mg Take 1 [facility] 300 mg 2-02 capsule by ity of capsule 00:00: mouth 2 [place] (two) Medical times Branch daily. pregabalin 2018-02 Yes [id number] 300mg Take 1 [facility] 300 mg 2-02 capsule by ity of capsule 00:00: mouth 2 [place] 00 (two) Medical times Branch daily. pregabalin 2018-02 Yes [id number] 300mg Take 1 [facility] 300 mg 2-02 capsule by ity of capsule 00:00: mouth 2 [place] (two) Medical times Branch daily. pregabalin 2018-02 Yes [id number] 300mg Take 1 [facility] 300 mg 2-02 capsule by ity of capsule 00:00: mouth 2 [place] (two) Medical times Branch daily. pregabalin 2018-02 Yes [id number] 300mg Take 1 [facility] 300 mg 2-02 capsule by ity of capsule 00:00: mouth 2 [place] 00 (two) Medical times Branch daily. pregabalin 2018-02 2020- No [id number] 300mg Take 1 [facility] 300 mg 2-02 06-05 capsule by ity of capsule 00:00: 00:00 mouth 2 [place] 00 :00 (two) Medical times Branch daily. losartan 2018-02 Yes [id number] 100mg Take 1 Uni vers 100 mg 1-08 tablet by ity of tablet 00:00: mouth [place] 00 daily. For Medical blood Branch pressure atorvastati 2018-02 Yes [id number] 20mg Take 1 Univers n (LIPITOR) 1-08 tablet by ity of 20 mg 00:00: mouth at [place] tablet 00 bedtime. Medical For Branch cholestero l insulin 2018-02 Yes [id number] 30U inject 30 [facility] glargine 1-08 Units ity of (LANTUS 00:00: under the [place] U-100 00 skin at Medical INSULIN) bedtime. Branch 100 unit/mL injection hydroCHLORO 2018-02 Yes [id number] 50mg Take 1 [facility] nivers thiazide 50 1-08 tablet by ity of mg tablet 00:00: mouth [place] 00 daily. For Medical blood Branch pressure. losartan 2018-02 Yes [id number] 100mg Take 1 [facility] vers 100 mg 1-08 tablet by ity of tablet 00:00: mouth [place] 00 daily. For Medical blood Branch pressure atorvastati 2018-02 Yes [id number] 20mg Take 1 [facility] n (LIPITOR) 1-08 tablet by ity of 20 mg 00:00: mouth at [place] tablet 00 bedtime. Medical For Branch cholestero l insulin 2018-02 Yes [id number] 30U inject 30 [facility] glargine 1-08 Units ity of (LANTUS 00:00: under the [place] U-100 00 skin at Medical INSULIN) bedtime. Branch 100 unit/mL injection hydroCHLORO 2018-02 Yes [id number] 50mg Take 1 [facility] nivers thiazide 50 1-08 tablet by ity of mg tablet 00:00: mouth [place] 00 daily. For Medical blood Branch pressure. losartan 2018-02 Yes [id number] 100mg Take 1 [facility] vers 100 mg 1-08 tablet by ity of tablet 00:00: mouth [place] 00 daily. For Medical blood Branch pressure atorvastati 2018-02 Yes [id number] 20mg Take 1 [facility] n (LIPITOR) 1-08 tablet by ity of 20 mg 00:00: mouth at [place] tablet 00 bedtime. Medical For Branch cholestero l insulin 2018-02 Yes [id number] 30U inject 30 [facility] glargine 1-08 Units ity of (LANTUS 00:00: under the [place] U-100 00 skin at Medical INSULIN) bedtime. Branch 100 unit/mL injection hydroCHLORO 2018-02 Yes [id number] 50mg Take 1 [facility] nivers thiazide 50 1-08 tablet by ity of mg tablet 00:00: mouth [place] 00 daily. For Medical blood Branch pressure. losartan 2018-02 Yes [id number] 100mg Take 1 [facility] vers 100 mg 1-08 tablet by ity of tablet 00:00: mouth [place] 00 daily. For Medical blood Branch pressure atorvastati 2018-02 Yes [id number] 20mg Take 1 [facility] n (LIPITOR) 1-08 tablet by ity of 20 mg 00:00: mouth at [place] tablet 00 bedtime. Medical For Branch cholestero l insulin 2018-02 Yes [id number] 30U inject 30 [facility] glargine 1-08 Units ity of (LANTUS 00:00: under the [place] U-100 00 skin at Medical INSULIN) bedtime. Branch 100 unit/mL injection hydroCHLORO 2018-02 Yes [id number] 50mg Take 1 [facility] nivers thiazide 50 1-08 tablet by ity of mg tablet 00:00: mouth [place] 00 daily. For Medical blood Branch pressure. losartan 2018-02 Yes [id number] 100mg Take 1 [facility] vers 100 mg 1-08 tablet by ity of tablet 00:00: mouth [place] 00 daily. For Medical blood Branch pressure atorvastati 2018-02 Yes [id number] 20mg Take 1 [facility] n (LIPITOR) 1-08 tablet by ity of 20 mg 00:00: mouth at [place] tablet 00 bedtime. Medical For Branch cholestero l insulin 2018-02 Yes [id number] 30U inject 30 [facility] glargine 1-08 Units ity of (LANTUS 00:00: under the [place] U-100 00 skin at Medical INSULIN) bedtime. Branch 100 unit/mL injection hydroCHLORO 2018-02 Yes [id number] 50mg Take 1 [facility] nivers thiazide 50 1-08 tablet by ity of mg tablet 00:00: mouth [place] 00 daily. For Medical blood Branch pressure. losartan 2018-02 Yes [id number] 100mg Take 1 [facility] vers 100 mg 1-08 tablet by ity of tablet 00:00: mouth [place] 00 daily. For Medical blood Branch pressure atorvastati 2018-02 Yes [id number] 20mg Take 1 [facility] n (LIPITOR) 1-08 tablet by ity of 20 mg 00:00: mouth at [place] tablet 00 bedtime. Medical For Branch cholestero l insulin 2018-02 Yes [id number] 30U inject 30 [facility] glargine 1-08 Units ity of (LANTUS 00:00: under the [place] U-100 00 skin at Medical INSULIN) bedtime. Branch 100 unit/mL injection hydroCHLORO 2018-02 Yes [id number] 50mg Take 1 [facility] nivers thiazide 50 1-08 tablet by ity of mg tablet 00:00: mouth [place] 00 daily. For Medical blood Branch pressure. losartan 2018-02 Yes [id number] 100mg Take 1 [facility] vers 100 mg 1-08 tablet by ity of tablet 00:00: mouth [place] 00 daily. For Medical blood Branch pressure atorvastati 2018-02 Yes [id number] 20mg Take 1 [facility] n (LIPITOR) 1-08 tablet by ity of 20 mg 00:00: mouth at [place] tablet 00 bedtime. Medical For Branch cholestero l insulin 2018-02 Yes [id number] 30U inject 30 [facility] glargine 1-08 Units ity of (LANTUS 00:00: under the [place] U-100 00 skin at Medical INSULIN) bedtime. Branch 100 unit/mL injection hydroCHLORO 2018-02 Yes [id number] 50mg Take 1 [facility] nivers thiazide 50 1-08 tablet by ity of mg tablet 00:00: mouth [place] 00 daily. For Medical blood Branch pressure. losartan 2018-02 Yes [id number] 100mg Take 1 [facility] vers 100 mg 1-08 tablet by ity of tablet 00:00: mouth [place] 00 daily. For Medical blood Branch pressure atorvastati 2018-02 Yes [id number] 20mg Take 1 [facility] n (LIPITOR) 1-08 tablet by ity of 20 mg 00:00: mouth at [place] tablet 00 bedtime. Medical For Branch cholestero l insulin 2018-02 Yes [id number] 30U inject 30 [facility] glargine 1-08 Units ity of (LANTUS 00:00: under the [place] U-100 00 skin at Medical INSULIN) bedtime. Branch 100 unit/mL injection hydroCHLORO 2018-02 Yes [id number] 50mg Take 1 U nivers thiazide 50 1-08 tablet by ity of mg tablet 00:00: mouth [place] 00 daily. For Medical blood Branch pressure. losartan 2018-02 Yes [id number] 100mg Take 1 [facility] vers 100 mg 1-08 tablet by ity of tablet 00:00: mouth [place] 00 daily. For Medical blood Branch pressure atorvastati 2018-02 Yes [id number] 20mg Take 1 [facility] n (LIPITOR) 1-08 tablet by ity of 20 mg 00:00: mouth at [place] tablet 00 bedtime. Medical For Branch cholestero l insulin 2018-02 Yes [id number] 30U inject 30 [facility] glargine 1-08 Units ity of (LANTUS 00:00: under the [place] U-100 00 skin at Medical INSULIN) bedtime. Branch 100 unit/mL injection hydroCHLORO 2018-02 Yes [id number] 50mg Take 1 [facility] nivers thiazide 50 1-08 tablet by ity of mg tablet 00:00: mouth [place] 00 daily. For Medical blood Branch pressure. losartan 2018-02 Yes [id number] 100mg Take 1 [facility] vers 100 mg 1-08 tablet by ity of tablet 00:00: mouth [place] 00 daily. For Medical blood Branch pressure atorvastati 2018-02 Yes [id number] 20mg Take 1 [facility] n (LIPITOR) 1-08 tablet by ity of 20 mg 00:00: mouth at [place] tablet 00 bedtime. Medical For Branch cholestero l insulin 2018-02 Yes [id number] 30U inject 30 [facility] glargine 1-08 Units ity of (LANTUS 00:00: under the [place] U-100 00 skin at Medical INSULIN) bedtime. Branch 100 unit/mL injection hydroCHLORO 2018-02 Yes [id number] 50mg Take 1 [facility] nivers thiazide 50 1-08 tablet by ity of mg tablet 00:00: mouth [place] 00 daily. For Medical blood Branch pressure. losartan 2018-02 Yes [id number] 100mg Take 1 [facility] vers 100 mg 1-08 tablet by ity of tablet 00:00: mouth [place] 00 daily. For Medical blood Branch pressure atorvastati 2018-02 Yes [id number] 20mg Take 1 [facility] n (LIPITOR) 1-08 tablet by ity of 20 mg 00:00: mouth at [place] tablet 00 bedtime. Medical For Branch cholestero l insulin 2018-02 Yes [id number] 30U inject 30 [facility] glargine 1-08 Units ity of (LANTUS 00:00: under the [place] U-100 00 skin at Medical INSULIN) bedtime. Branch 100 unit/mL injection hydroCHLORO 2018-02 Yes [id number] 50mg Take 1 [facility] nivers thiazide 50 1-08 tablet by ity of mg tablet 00:00: mouth [place] 00 daily. For Medical blood Branch pressure. losartan 2018-02 Yes [id number] 100mg Take 1 [facility] vers 100 mg 1-08 tablet by ity of tablet 00:00: mouth [place] 00 daily. For Medical blood Branch pressure atorvastati 2018-02 Yes [id number] 20mg Take 1 [facility] n (LIPITOR) 1-08 tablet by ity of 20 mg 00:00: mouth at [place] tablet 00 bedtime. Medical For Branch cholestero l insulin 2018-02 Yes [id number] 30U inject 30 [facility] glargine 1-08 Units ity of (LANTUS 00:00: under the [place] U-100 00 skin at Medical INSULIN) bedtime. Branch 100 unit/mL injection hydroCHLORO 2018-02 Yes [id number] 50mg Take 1 U nivers thiazide 50 1-08 tablet by ity of mg tablet 00:00: mouth [place] 00 daily. For Medical blood Branch pressure. losartan 2018-02 Yes [id number] 100mg Take 1 [facility] vers 100 mg 1-08 tablet by ity of tablet 00:00: mouth [place] 00 daily. For Medical blood Branch pressure atorvastati 2018-02 Yes [id number] 20mg Take 1 [facility] n (LIPITOR) 1-08 tablet by ity of 20 mg 00:00: mouth at [place] tablet 00 bedtime. Medical For Branch cholestero l insulin 2018-02 Yes [id number] 30U inject 30 [facility] glargine 1-08 Units ity of (LANTUS 00:00: under the [place] U-100 00 skin at Medical INSULIN) bedtime. Branch 100 unit/mL injection hydroCHLORO 2018-02 Yes [id number] 50mg Take 1 U nivers thiazide 50 1-08 tablet by ity of mg tablet 00:00: mouth [place] 00 daily. For Medical blood Branch pressure. losartan 2018-02 Yes [id number] 100mg Take 1 [facility] vers 100 mg 1-08 tablet by ity of tablet 00:00: mouth [place] 00 daily. For Medical blood Branch pressure atorvastati 2018-02 Yes [id number] 20mg Take 1 [facility] n (LIPITOR) 1-08 tablet by ity of 20 mg 00:00: mouth at [place] tablet 00 bedtime. Medical For Branch cholestero l insulin 2018-02 Yes [id number] 30U inject 30 [facility] glargine 1-08 Units ity of (LANTUS 00:00: under the [place] U-100 00 skin at Medical INSULIN) bedtime. Branch 100 unit/mL injection hydroCHLORO 2018-02 Yes [id number] 50mg Take 1 U nivers thiazide 50 1-08 tablet by ity of mg tablet 00:00: mouth [place] 00 daily. For Medical blood Branch pressure. losartan 2018-02 Yes [id number] 100mg Take 1 [facility] vers 100 mg 1-08 tablet by ity of tablet 00:00: mouth [place] 00 daily. For Medical blood Branch pressure atorvastati 2018-02 Yes [id number] 20mg Take 1 [facility] n (LIPITOR) 1-08 tablet by ity of 20 mg 00:00: mouth at [place] tablet 00 bedtime. Medical For Branch cholestero l losartan 2018-02 Yes [id number] 100mg Take 1 [facility] vers 100 mg 1-08 tablet by ity of tablet 00:00: mouth [place] 00 daily. For Medical blood Branch pressure atorvastati 2018-02 Yes [id number] 20mg Take 1 [facility] n (LIPITOR) 1-08 tablet by ity of 20 mg 00:00: mouth at [place] tablet 00 bedtime. Medical For Branch cholestero l insulin 2018-02 Yes [id number] 30U inject 30 [facility] glargine 1-08 Units ity of (LANTUS 00:00: under the [place] U-100 00 skin at Medical INSULIN) bedtime. Branch 100 unit/mL injection hydroCHLORO 2018-02 Yes [id number] 50mg Take 1 U nivers thiazide 50 1-08 tablet by ity of mg tablet 00:00: mouth [place] 00 daily. For Medical blood Branch pressure. insulin 2018-02 Yes [id number] 30U inject 30 [facility] glargine 1-08 Units ity of (LANTUS 00:00: under the [place] U-100 00 skin at Medical INSULIN) bedtime. Branch 100 unit/mL injection hydroCHLORO 2018-02 Yes [id number] 50mg Take 1 U nivers thiazide 50 1-08 tablet by ity of mg tablet 00:00: mouth [place] 00 daily. For Medical blood Branch pressure. losartan 2018-02 Yes [id number] 100mg Take 1 [facility] vers 100 mg 1-08 tablet by ity of tablet 00:00: mouth [place] 00 daily. For Medical blood Branch pressure atorvastati 2018-02 Yes [id number] 20mg Take 1 [facility] n (LIPITOR) 1-08 tablet by ity of 20 mg 00:00: mouth at [place] tablet 00 bedtime. Medical For Branch cholestero l insulin 2018-02 Yes [id number] 30U inject 30 [facility] glargine 1-08 Units ity of (LANTUS 00:00: under the [place] U-100 00 skin at Medical INSULIN) bedtime. Branch 100 unit/mL injection hydroCHLORO 2018-02 Yes [id number] 50mg Take 1 U nivers thiazide 50 1-08 tablet by ity of mg tablet 00:00: mouth [place] 00 daily. For Medical blood Branch pressure. losartan 2018-02 Yes [id number] 100mg Take 1 [facility] vers 100 mg 1-08 tablet by ity of tablet 00:00: mouth [place] 00 daily. For Medical blood Branch pressure atorvastati 2018-02 Yes [id number] 20mg Take 1 [facility] n (LIPITOR) 1-08 tablet by ity of 20 mg 00:00: mouth at [place] tablet 00 bedtime. Medical For Branch cholestero l insulin 2018-02 Yes [id number] 30U inject 30 [facility] glargine 1-08 Units ity of (LANTUS 00:00: under the [place] U-100 00 skin at Medical INSULIN) bedtime. Branch 100 unit/mL injection hydroCHLORO 2018-02 Yes [id number] 50mg Take 1 U nivers thiazide 50 1-08 tablet by ity of mg tablet 00:00: mouth [place] 00 daily. For Medical blood Branch pressure. losartan 2018-02 Yes [id number] 100mg Take 1 [facility] vers 100 mg 1-08 tablet by ity of tablet 00:00: mouth [place] 00 daily. For Medical blood Branch pressure atorvastati 2018-02 Yes [id number] 20mg Take 1 [facility] n (LIPITOR) 1-08 tablet by ity of 20 mg 00:00: mouth at [place] tablet 00 bedtime. Medical For Branch cholestero l insulin 2018-02 Yes [id number] 30U inject 30 [facility] glargine 1-08 Units ity of (LANTUS 00:00: under the [place] U-100 00 skin at Medical INSULIN) bedtime. Branch 100 unit/mL injection hydroCHLORO 2018-02 Yes [id number] 50mg Take 1 U nivers thiazide 50 1-08 tablet by ity of mg tablet 00:00: mouth [place] 00 daily. For Medical blood Branch pressure. losartan 2018-02 Yes [id number] 100mg Take 1 [facility] vers 100 mg 1-08 tablet by ity of tablet 00:00: mouth [place] 00 daily. For Medical blood Branch pressure atorvastati 2018-02 Yes [id number] 20mg Take 1 [facility] n (LIPITOR) 1-08 tablet by ity of 20 mg 00:00: mouth at [place] tablet 00 bedtime. Medical For Branch cholestero l insulin 2018-02 Yes [id number] 30U inject 30 [facility] glargine 1-08 Units ity of (LANTUS 00:00: under the [place] U-100 00 skin at Medical INSULIN) bedtime. Branch 100 unit/mL injection hydroCHLORO 2018-02 Yes [id number] 50mg Take 1 U nivers thiazide 50 1-08 tablet by ity of mg tablet 00:00: mouth [place] 00 daily. For Medical blood Branch pressure. losartan 2018-02 Yes [id number] 100mg Take 1 [facility] vers 100 mg 1-08 tablet by ity of tablet 00:00: mouth [place] 00 daily. For Medical blood Branch pressure atorvastati 2018-02 Yes [id number] 20mg Take 1 [facility] n (LIPITOR) 1-08 tablet by ity of 20 mg 00:00: mouth at [place] tablet 00 bedtime. Medical For Branch cholestero l insulin 2018-02 Yes [id number] 30U inject 30 [facility] glargine 1-08 Units ity of (LANTUS 00:00: under the [place] U-100 00 skin at Medical INSULIN) bedtime. Branch 100 unit/mL injection hydroCHLORO 2018-02 Yes [id number] 50mg Take 1 U nivers thiazide 50 1-08 tablet by ity of mg tablet 00:00: mouth [place] 00 daily. For Medical blood Branch pressure. losartan 2018-02 Yes [id number] 100mg Take 1 [facility] vers 100 mg 1-08 tablet by ity of tablet 00:00: mouth [place] 00 daily. For Medical blood Branch pressure atorvastati 2018-02 Yes [id number] 20mg Take 1 [facility] n (LIPITOR) 1-08 tablet by ity of 20 mg 00:00: mouth at [place] tablet 00 bedtime. Medical For Branch cholestero l insulin 2018-02 Yes [id number] 30U inject 30 [facility] glargine 1-08 Units ity of (LANTUS 00:00: under the [place] U-100 00 skin at Medical INSULIN) bedtime. Branch 100 unit/mL injection hydroCHLORO 2018-02 Yes [id number] 50mg Take 1 U nivers thiazide 50 1-08 tablet by ity of mg tablet 00:00: mouth [place] 00 daily. For Medical blood Branch pressure. losartan 2018-02 Yes [id number] 100mg Take 1 [facility] vers 100 mg 1-08 tablet by ity of tablet 00:00: mouth [place] 00 daily. For Medical blood Branch pressure atorvastati 2018-02 Yes [id number] 20mg Take 1 [facility] n (LIPITOR) 1-08 tablet by ity of 20 mg 00:00: mouth at [place] tablet 00 bedtime. Medical For Branch cholestero l insulin 2018-02 Yes [id number] 30U inject 30 [facility] glargine 1-08 Units ity of (LANTUS 00:00: under the [place] U-100 00 skin at Medical INSULIN) bedtime. Branch 100 unit/mL injection hydroCHLORO 2018-02 Yes [id number] 50mg Take 1 U nivers thiazide 50 1-08 tablet by ity of mg tablet 00:00: mouth [place] 00 daily. For Medical blood Branch pressure. losartan 2018-02 Yes [id number] 100mg Take 1 [facility] vers 100 mg 1-08 tablet by ity of tablet 00:00: mouth [place] 00 daily. For Medical blood Branch pressure atorvastati 2018-02 Yes [id number] 20mg Take 1 [facility] n (LIPITOR) 1-08 tablet by ity of 20 mg 00:00: mouth at [place] tablet 00 bedtime. Medical For Branch cholestero l insulin 2018-02 Yes [id number] 30U inject 30 [facility] glargine 1-08 Units ity of (LANTUS 00:00: under the [place] U-100 00 skin at Medical INSULIN) bedtime. Branch 100 unit/mL injection hydroCHLORO 2018-02 Yes [id number] 50mg Take 1 U nivers thiazide 50 1-08 tablet by ity of mg tablet 00:00: mouth [place] 00 daily. For Medical blood Branch pressure. losartan 2018-02 Yes [id number] 100mg Take 1 [facility] vers 100 mg 1-08 tablet by ity of tablet 00:00: mouth [place] 00 daily. For Medical blood Branch pressure atorvastati 2018-02 Yes [id number] 20mg Take 1 [facility] n (LIPITOR) 1-08 tablet by ity of 20 mg 00:00: mouth at [place] tablet 00 bedtime. Medical For Branch cholestero l insulin 2018-02 Yes [id number] 30U inject 30 [facility] glargine 1-08 Units ity of (LANTUS 00:00: under the [place] U-100 00 skin at Medical INSULIN) bedtime. Branch 100 unit/mL injection hydroCHLORO 2018-02 Yes [id number] 50mg Take 1 U nivers thiazide 50 1-08 tablet by ity of mg tablet 00:00: mouth [place] 00 daily. For Medical blood Branch pressure. losartan 2018-02 Yes [id number] 100mg Take 1 [facility] vers 100 mg 1-08 tablet by ity of tablet 00:00: mouth [place] 00 daily. For Medical blood Branch pressure atorvastati 2018-02 Yes [id number] 20mg Take 1 [facility] n (LIPITOR) 1-08 tablet by ity of 20 mg 00:00: mouth at [place] tablet 00 bedtime. Medical For Branch cholestero l insulin 2018-02 Yes [id number] 30U inject 30 [facility] glargine 1-08 Units ity of (LANTUS 00:00: under the [place] U-100 00 skin at Medical INSULIN) bedtime. Branch 100 unit/mL injection hydroCHLORO 2018-02 Yes [id number] 50mg Take 1 U nivers thiazide 50 1-08 tablet by ity of mg tablet 00:00: mouth [place] 00 daily. For Medical blood Branch pressure. losartan 2018-02 Yes [id number] 100mg Take 1 [facility] vers 100 mg 1-08 tablet by ity of tablet 00:00: mouth [place] 00 daily. For Medical blood Branch pressure losartan 2018-02 Yes [id number] 100mg Take 1 [facility] vers 100 mg 1-08 tablet by ity of tablet 00:00: mouth [place] 00 daily. For Medical blood Branch pressure atorvastati 2018-02 Yes [id number] 20mg Take 1 [facility] n (LIPITOR) 1-08 tablet by ity of 20 mg 00:00: mouth at [place] tablet 00 bedtime. Medical For Branch cholestero l insulin 2018-02 Yes [id number] 30U inject 30 [facility] glargine 1-08 Units ity of (LANTUS 00:00: under the [place] U-100 00 skin at Medical INSULIN) bedtime. Branch 100 unit/mL injection hydroCHLORO 2018-02 Yes [id number] 50mg Take 1 U nivers thiazide 50 1-08 tablet by ity of mg tablet 00:00: mouth [place] 00 daily. For Medical blood Branch pressure. atorvastati 2018-02 Yes [id number] 20mg Take 1 [facility] n (LIPITOR) 1-08 tablet by ity of 20 mg 00:00: mouth at [place] tablet 00 bedtime. Medical For Branch cholestero l insulin 2018-02 Yes [id number] 30U inject 30 [facility] glargine 1-08 Units ity of (LANTUS 00:00: under the [place] U-100 00 skin at Medical INSULIN) bedtime. Branch 100 unit/mL injection hydroCHLORO 2018-02 Yes [id number] 50mg Take 1 U nivers thiazide 50 1-08 tablet by ity of mg tablet 00:00: mouth [place] 00 daily. For Medical blood Branch pressure. losartan 2018-02 Yes [id number] 100mg Take 1 [facility] vers 100 mg 1-08 tablet by ity of tablet 00:00: mouth [place] 00 daily. For Medical blood Branch pressure atorvastati 2018-02 Yes [id number] 20mg Take 1 [facility] n (LIPITOR) 1-08 tablet by ity of 20 mg 00:00: mouth at [place] tablet 00 bedtime. Medical For Branch cholestero l insulin 2018-02 Yes [id number] 30U inject 30 [facility] glargine 1-08 Units ity of (LANTUS 00:00: under the [place] U-100 00 skin at Medical INSULIN) bedtime. Branch 100 unit/mL injection hydroCHLORO 2018-02 Yes [id number] 50mg Take 1 U nivers thiazide 50 1-08 tablet by ity of mg tablet 00:00: mouth [place] 00 daily. For Medical blood Branch pressure. losartan 2018-02 Yes [id number] 100mg Take 1 [facility] vers 100 mg 1-08 tablet by ity of tablet 00:00: mouth [place] 00 daily. For Medical blood Branch pressure atorvastati 2018-02 Yes [id number] 20mg Take 1 [facility] n (LIPITOR) 1-08 tablet by ity of 20 mg 00:00: mouth at [place] tablet 00 bedtime. Medical For Branch cholestero l insulin 2018-02 Yes [id number] 30U inject 30 [facility] glargine 1-08 Units ity of (LANTUS 00:00: under the [place] U-100 00 skin at Medical INSULIN) bedtime. Branch 100 unit/mL injection hydroCHLORO 2018-02 Yes [id number] 50mg Take 1 U nivers thiazide 50 1-08 tablet by ity of mg tablet 00:00: mouth [place] 00 daily. For Medical blood Branch pressure. losartan 2018-02 Yes [id number] 100mg Take 1 [facility] vers 100 mg 1-08 tablet by ity of tablet 00:00: mouth [place] 00 daily. For Medical blood Branch pressure atorvastati 2018-02 Yes [id number] 20mg Take 1 [facility] n (LIPITOR) 1-08 tablet by ity of 20 mg 00:00: mouth at [place] tablet 00 bedtime. Medical For Branch cholestero l insulin 2018-02 Yes [id number] 30U inject 30 [facility] glargine 1-08 Units ity of (LANTUS 00:00: under the [place] U-100 00 skin at Medical INSULIN) bedtime. Branch 100 unit/mL injection hydroCHLORO 2018-02 Yes [id number] 50mg Take 1 U nivers thiazide 50 1-08 tablet by ity of mg tablet 00:00: mouth [place] 00 daily. For Medical blood Branch pressure. insulin 2018-02 Yes [id number] 5U inject 5 U nivers regular 0-14 Units ity of human 00:00: under the [place] (HUMULIN R 00 skin 3 Medical REGULAR (three) Branch U-100 times INSULN) 100 daily unit/mL before injection meals. insulin 2018-02 Yes [id number] 5U inject 5 U nivers regular 0-14 Units ity of human 00:00: under the [place] (HUMULIN R 00 skin 3 Medical REGULAR (three) Branch U-100 times INSULN) 100 daily unit/mL before injection meals. insulin 2018-02 Yes [id number] 5U inject 5 U nivers regular 0-14 Units ity of human 00:00: under the [place] (HUMULIN R 00 skin 3 Medical REGULAR (three) Branch U-100 times INSULN) 100 daily unit/mL before injection meals. insulin 2018-02 Yes [id number] 5U inject 5 U nivers regular 0-14 Units ity of human 00:00: under the [place] (HUMULIN R 00 skin 3 Medical REGULAR (three) Branch U-100 times INSULN) 100 daily unit/mL before injection meals. insulin 2018-02 Yes [id number] 5U inject 5 U nivers regular 0-14 Units ity of human 00:00: under the [place] (HUMULIN R 00 skin 3 Medical REGULAR (three) Branch U-100 times INSULN) 100 daily unit/mL before injection meals. insulin 2018-02 Yes [id number] 5U inject 5 U nivers regular 0-14 Units ity of human 00:00: under the [place] (HUMULIN R 00 skin 3 Medical REGULAR (three) Branch U-100 times INSULN) 100 daily unit/mL before injection meals. insulin 2018-02 Yes [id number] 5U inject 5 U nivers regular 0-14 Units ity of human 00:00: under the [place] (HUMULIN R 00 skin 3 Medical REGULAR (three) Branch U-100 times INSULN) 100 daily unit/mL before injection meals. insulin 2018-02 Yes [id number] 5U inject 5 U nivers regular 0-14 Units ity of human 00:00: under the [place] (HUMULIN R 00 skin 3 Medical REGULAR (three) Branch U-100 times INSULN) 100 daily unit/mL before injection meals. insulin 2018-02 Yes [id number] 5U inject 5 U nivers regular 0-14 Units ity of human 00:00: under the [place] (HUMULIN R 00 skin 3 Medical REGULAR (three) Branch U-100 times INSULN) 100 daily unit/mL before injection meals. insulin 2018-02 Yes [id number] 5U inject 5 U nivers regular 0-14 Units ity of human 00:00: under the [place] (HUMULIN R 00 skin 3 Medical REGULAR (three) Branch U-100 times INSULN) 100 daily unit/mL before injection meals. insulin 2018-02 Yes [id number] 5U inject 5 U nivers regular 0-14 Units ity of human 00:00: under the [place] (HUMULIN R 00 skin 3 Medical REGULAR (three) Branch U-100 times INSULN) 100 daily unit/mL before injection meals. insulin 2018-02 Yes [id number] 5U inject 5 U nivers regular 0-14 Units ity of human 00:00: under the [place] (HUMULIN R 00 skin 3 Medical REGULAR (three) Branch U-100 times INSULN) 100 daily unit/mL before injection meals. insulin 2018-02 Yes [id number] 5U inject 5 U nivers regular 0-14 Units ity of human 00:00: under the [place] (HUMULIN R 00 skin 3 Medical REGULAR (three) Branch U-100 times INSULN) 100 daily unit/mL before injection meals. insulin 2018-02 Yes [id number] 5U inject 5 U nivers regular 0-14 Units ity of human 00:00: under the [place] (HUMULIN R 00 skin 3 Medical REGULAR (three) Branch U-100 times INSULN) 100 daily unit/mL before injection meals. insulin 2018-02 Yes [id number] 5U inject 5 U nivers regular 0-14 Units ity of human 00:00: under the [place] (HUMULIN R 00 skin 3 Medical REGULAR (three) Branch U-100 times INSULN) 100 daily unit/mL before injection meals. insulin 2018-02 Yes [id number] 5U inject 5 U nivers regular 0-14 Units ity of human 00:00: under the [place] (HUMULIN R 00 skin 3 Medical REGULAR (three) Branch U-100 times INSULN) 100 daily unit/mL before injection meals. insulin 2018-02 Yes [id number] 5U inject 5 U nivers regular 0-14 Units ity of human 00:00: under the [place] (HUMULIN R 00 skin 3 Medical REGULAR (three) Branch U-100 times INSULN) 100 daily unit/mL before injection meals. insulin 2018-02 Yes [id number] 5U inject 5 U nivers regular 0-14 Units [facility]y of human 00:00: under the [place] (HUMULIN R 00 skin 3 Medical REGULAR (three) Branch U-100 times INSULN) 100 daily unit/mL before injection meals. insulin 2018-02 Yes [id number] 5U inject 5 U nivers regular 0-14 Units ity of human 00:00: under the [place] (HUMULIN R 00 skin 3 Medical REGULAR (three) Branch U-100 times INSULN) 100 daily unit/mL before injection meals. insulin 2018-02 Yes [id number] 5U inject 5 U nivers regular 0-14 Units ity of human 00:00: under the [place] (HUMULIN R 00 skin 3 Medical REGULAR (three) Branch U-100 times INSULN) 100 daily unit/mL before injection meals. insulin 2018-02 Yes [id number] 5U inject 5 U nivers regular 0-14 Units ity of human 00:00: under the [place] (HUMULIN R 00 skin 3 Medical REGULAR (three) Branch U-100 times INSULN) 100 daily unit/mL before injection meals. insulin 2018-02 Yes [id number] 5U inject 5 U nivers regular 0-14 Units ity of human 00:00: under the [place] (HUMULIN R 00 skin 3 Medical REGULAR (three) Branch U-100 times INSULN) 100 daily unit/mL before injection meals. insulin 2018-02 Yes [id number] 5U inject 5 U nivers regular 0-14 Units ity of human 00:00: under the [place] (HUMULIN R 00 skin 3 Medical REGULAR (three) Branch U-100 times INSULN) 100 daily unit/mL before injection meals. insulin 2018-02 Yes [id number] 5U inject 5 U nivers regular 0-14 Units ity of human 00:00: under the [place] (HUMULIN R 00 skin 3 Medical REGULAR (three) Branch U-100 times INSULN) 100 daily unit/mL before injection meals. insulin 2018-02 Yes [id number] 5U inject 5 U nivers regular 0-14 Units ity of human 00:00: under the [place] (HUMULIN R 00 skin 3 Medical REGULAR (three) Branch U-100 times INSULN) 100 daily unit/mL before injection meals. insulin 2018-02 Yes [id number] 5U inject 5 U nivers regular 0-14 Units ity of human 00:00: under the [place] (HUMULIN R 00 skin 3 Medical REGULAR (three) Branch U-100 times INSULN) 100 daily unit/mL before injection meals. insulin 2018-02 Yes [id number] 5U inject 5 U nivers regular 0-14 Units ity of human 00:00: under the [place] (HUMULIN R 00 skin 3 Medical REGULAR (three) Branch U-100 times INSULN) 100 daily unit/mL before injection meals. insulin 2018-02 Yes [id number] 5U inject 5 U nivers regular 0-14 Units ity of human 00:00: under the [place] (HUMULIN R 00 skin 3 Medical REGULAR (three) Branch U-100 times INSULN) 100 daily unit/mL before injection meals. insulin 2018-02 Yes [id number] 5U inject 5 U nivers regular 0-14 Units ity of human 00:00: under the [place] (HUMULIN R 00 skin 3 Medical REGULAR (three) Branch U-100 times INSULN) 100 daily unit/mL before injection meals. insulin 2018-02 Yes [id number] 5U inject 5 U nivers regular 0-14 Units ity of human 00:00: under the [place] (HUMULIN R 00 skin 3 Medical REGULAR (three) Branch U-100 times INSULN) 100 daily unit/mL before injection meals. insulin 2018- Yes [id number] 5U inject 5 U nivers regular 0-14 Units ity of human 00:00: under the [place] (HUMULIN R 00 skin 3 Medical REGULAR (three) Branch U-100 times INSULN) 100 daily unit/mL before injection meals. metFORMIN 2018-02 Yes [id number] 1000mg Take 1 [facility] 1,000 mg 0-07 tablet by ity of tablet 00:00: mouth (two) Medical times Branch daily with meals. For diabetes metFORMIN 2018-02 Yes [id number] 1000mg Take 1 [facility] 1,000 mg 0-07 tablet by ity of tablet 00:00: mouth (two) Medical times Branch daily with meals. For diabetes metFORMIN 2018-02 Yes [id number] 1000mg Take 1 [facility] 1,000 mg 0-07 tablet by ity of tablet 00:00: mouth (two) Medical times Branch daily with meals. For diabetes metFORMIN 2018-02 Yes [id number] 1000mg Take 1 [facility] 1,000 mg 0-07 tablet by ity of tablet 00:00: mouth (two) Medical times Branch daily with meals. For diabetes metFORMIN 2018-02 Yes [id number] 1000mg Take 1 [facility] 1,000 mg 0-07 tablet by ity of tablet 00:00: mouth [place] (two) Medical times Branch daily with meals. For diabetes metFORMIN 2018-02 Yes [id number] 1000mg Take 1 [facility] 1,000 mg 0-07 tablet by ity of tablet 00:00: mouth [place] (two) Medical times Branch daily with meals. For diabetes metFORMIN 2018-02 2020- No [id number] 1000mg Take 1 [facility] 1,000 mg 0-07 03-19 tablet by ity o f tablet 00:00: 00:00 mouth 2 [place] 00 :00 (two) Medical times Branch daily with meals. For diabetes meloxicam 2018- Yes [id number] 15mg Take 1 U nivers 15 mg 9-09 tablet by ity of tablet 00:00: mouth [place] 00 daily. Medical Branch meloxicam 2019-0 Yes [id number] 15mg Take 1 U nivers 15 mg 9-09 tablet by ity of tablet 00:00: mouth [place] 00 daily. Medical Branch meloxicam 2019-0 Yes [id number] 15mg Take 1 U nivers 15 mg 9-09 tablet by ity of tablet 00:00: mouth [place] 00 daily. [facility] Branch meloxicam 2018-0 Yes [id number] 15mg Take 1 U nivers 15 mg 9-09 tablet by ity of tablet 00:00: mouth [place] 00 daily. [facility] Branch meloxicam 2018-0 Yes [id number] 15mg Take 1 U nivers 15 mg 9-09 tablet by ity of tablet 00:00: mouth [place] 00 daily. [facility] Branch meloxicam 0 Yes [id number] 15mg Take 1 U nivers 15 mg 9-09 tablet by ity of tablet 00:00: mouth [place] 00 daily. [facility] Branch meloxicam 0 Yes [id number] 15mg Take 1 U nivers 15 mg 9-09 tablet by ity of tablet 00:00: mouth [place] 00 daily. [facility] Branch meloxicam 0 Yes [id number] 15mg Take 1 U nivers 15 mg 9-09 tablet by ity of tablet 00:00: mouth [place] 00 daily. [facility] Branch meloxicam 0 Yes [id number] 15mg Take 1 U nivers 15 mg 9-09 tablet by ity of tablet 00:00: mouth [place] 00 daily. [facility] Branch meloxicam 0 Yes [id number] 15mg Take 1 U nivers 15 mg 9-09 tablet by ity of tablet 00:00: mouth [place] 00 daily. [facility] Branch meloxicam 0 Yes [id number] 15mg Take 1 U nivers 15 mg 9-09 tablet by ity of tablet 00:00: mouth [place] 00 daily. [facility] Branch meloxicam 0 Yes [id number] 15mg Take 1 U nivers 15 mg 9-09 tablet by ity of tablet 00:00: mouth [place] 00 daily. [facility] Branch meloxicam 2019-0 Yes [id number] 15mg Take 1 U nivers 15 mg 9-09 tablet by ity of tablet 00:00: mouth [place] 00 daily. [facility] Branch meloxicam 2018-0 Yes [id number] 15mg Take 1 U nivers 15 mg 9-09 tablet by ity of tablet 00:00: mouth [place] 00 daily. [facility] Branch meloxicam 2018-0 Yes [id number] 15mg Take 1 U nivers 15 mg 9-09 tablet by ity of tablet 00:00: mouth [place] 00 daily. [facility] levothyroxi 20190 Yes [id number] 125ug Take 1 Univers ne 125 mcg 9-09 tablet by ity of tablet 00:00: mouth [place] 00 every Medical morning. [place] meloxicam 0 Yes [id number] 15mg Take 1 U nivers 15 mg 9-09 tablet by ity of tablet 00:00: mouth [place] 00 daily. [facility] levothyroxi 0 Yes [id number] 125ug Take 1 Univers ne 125 mcg 9-09 tablet by ity of tablet 00:00: mouth [place] 00 every Medical morning. [place] meloxicam Yes [id number] 15mg Take 1 U nivers 15 mg 9-09 tablet by ity of tablet 00:00: mouth [place] 00 daily. [facility] levothyroxi 0 Yes [id number] 125ug Take 1 Univers ne 125 mcg 9-09 tablet by ity of tablet 00:00: mouth [place] 00 every Medical morning. [place] meloxicam 0 Yes [id number] 15mg Take 1 U nivers 15 mg 9-09 tablet by ity of tablet 00:00: mouth [place] 00 daily. [facility] levothyroxi 0 Yes [id number] 125ug Take 1 Univers ne 125 mcg 9-09 tablet by ity of tablet 00:00: mouth [place] 00 every Medical morning. [place] meloxicam 0 Yes [id number] 15mg Take 1 U nivers 15 mg 9-09 tablet by ity of tablet 00:00: mouth [place] 00 daily. [facility] levothyroxi 0 Yes [id number] 125ug Take 1 Univers ne 125 mcg 9-09 tablet by ity of tablet 00:00: mouth [place] 00 every Medical morning. [place] meloxicam 0 Yes [id number] 15mg Take 1 U nivers 15 mg 9-09 tablet by ity of tablet 00:00: mouth [place] 00 daily. [facility] levothyroxi 0 Yes [id number] 125ug Take 1 [facility] ne 125 mcg 9-09 tablet by ity of tablet 00:00: mouth [place] 00 every Medical morning. [place] meloxicam 0 Yes [id number] 15mg Take 1 U nivers 15 mg 9-09 tablet by ity of tablet 00:00: mouth [place] 00 daily. [facility] levothyroxi 0 Yes [id number] 125ug Take 1 Univers ne 125 mcg 9-09 tablet by ity of tablet 00:00: mouth [place] 00 every Medical morning. [place] meloxicam 0 Yes [id number] 15mg Take 1 U nivers 15 mg 9-09 tablet by ity of tablet 00:00: mouth [place] 00 daily. [facility] Branch levothyroxi 0 Yes [id number] 125ug Take 1 [facility] ne 125 mcg 9-09 tablet by ity of tablet 00:00: mouth [place] 00 every Medical morning. [place] meloxicam 0 Yes [id number] 15mg Take 1 U nivers 15 mg 9-09 tablet by ity of tablet 00:00: mouth [place] 00 daily. [facility] Branch levothyroxi Yes [id number] 125ug Take 1 Univers ne 125 mcg 9-09 tablet by ity of tablet 00:00: mouth [place] 00 every Medical morning. [place] meloxicam Yes [id number] 15mg Take 1 U nivers 15 mg 9-09 tablet by ity of tablet 00:00: mouth [place] 00 daily. [facility] levothyroxi Yes [id number] 125ug Take 1 Univers ne 125 mcg 9-09 tablet by ity of tablet 00:00: mouth [place] 00 every Medical morning. [place] meloxicam Yes [id number] 15mg Take 1 U nivers 15 mg 9-09 tablet by ity of tablet 00:00: mouth [place] 00 daily. [facility] levothyroxi 0 Yes [id number] 125ug Take 1 [facility] ne 125 mcg 9-09 tablet by ity of tablet 00:00: mouth [place] 00 every Medical morning. [place] meloxicam 0 Yes [id number] 15mg Take 1 U nivers 15 mg 9-09 tablet by ity of tablet 00:00: mouth [place] 00 daily. [facility] Branch levothyroxi 0 Yes [id number] 125ug Take 1 [facility] ne 125 mcg 9-09 tablet by ity of tablet 00:00: mouth [place] 00 every Medical morning. [place] meloxicam 0 Yes [id number] 15mg Take 1 U nivers 15 mg 9-09 tablet by ity of tablet 00:00: mouth [place] 00 daily. [facility] meloxicam 0 Yes [id number] 15mg Take 1 U nivers 15 mg 9-09 tablet by ity of tablet 00:00: mouth [place] 00 daily. [facility] Branch levothyroxi Yes [id number] 125ug Take 1 [facility] ne 125 mcg 9-09 tablet by ity of tablet 00:00: mouth [place] 00 every Medical morning. Branch meloxicam Yes [id number] 15mg Take 1 U nivers 15 mg 9-09 tablet by ity of tablet 00:00: mouth [place] 00 daily. [facility] Branch levothyroxi Yes [id number] 125ug Take 1 Univers ne 125 mcg 9-09 tablet by ity of tablet 00:00: mouth [place] 00 every Medical morning. [place] meloxicam Yes [id number] 15mg Take 1 U nivers 15 mg 9-09 tablet by ity of tablet 00:00: mouth [place] 00 daily. [facility] levothyroxi Yes [id number] 125ug Take 1 [facility] ne 125 mcg 9-09 tablet by ity of tablet 00:00: mouth [place] 00 every Medical morning. [place] meloxicam Yes [id number] 15mg Take 1 U nivers 15 mg 9-09 tablet by ity of tablet 00:00: mouth [place] 00 daily. [facility] meloxicam Yes [id number] 15mg Take 1 U nivers 15 mg 9-09 tablet by ity of tablet 00:00: mouth [place] 00 daily. [facility] levothyroxi 2020- No [id number] 125ug Take 1 [facility] ne 125 mcg 9-09 07-30 tablet by ity of tablet 00:00: 00:00 mouth [place] 00 :00 every Medical morning. Branch GABAPENTIN Yes [id number] TAKE 3 [facility] 300 mg 8-19 CAPSULES ity of capsule 00:00: BY MOUTH [place] 00 THREE Medical TIMES Branch DAILY GABAPENTIN 2018- Yes [id number] TAKE 3 [facility] 300 mg 8-19 CAPSULES ity of capsule 00:00: BY MOUTH [place] 00 THREE Medical TIMES Branch DAILY GABAPENTIN 2019- Yes [id number] TAKE 3 [facility] 300 mg 8-19 CAPSULES ity of capsule 00:00: BY MOUTH [place] 00 THREE Medical TIMES Branch DAILY BD VEO Yes [id number] USE Univ ers INSULIN 09-14 DIRECTED ity of SYRINGE UF 00:00: FOUR [place] 0.3 mL 31 00 TIMES A Medica l gauge x DAY Branch " Syrg BD VEO 2019-0 Yes [id number] USE Univ ers INSULIN 8- DIRECTED ity of [place] UF 00:00: FOUR [place] 0.3 mL 31 00 TIMES A Medica l gauge x DAY Branch " Syrg BD VEO 2019-0 Yes [id number] USE Univ ers INSULIN 09-14 DIRECTED ity of [place] UF 00:00: FOUR [place] 0.3 mL 31 00 TIMES A Medica l gauge x DAY Branch " Syrg BD VEO 2019-0 Yes [id number] USE Univ ers INSULIN 09-14 DIRECTED ity of [place] UF 00:00: FOUR [place] 0.3 mL 31 00 TIMES A Medica l gauge x DAY Branch " Syrg BD VEO 2019-0 Yes [id number] USE Univ ers INSULIN 09-14 DIRECTED ity of [place] UF 00:00: FOUR [place] 0.3 mL 00 TIMES A Medica l gauge x DAY Branch " Syrg BD VEO 2019-0 Yes [id number] USE Univ ers INSULIN 09-14 DIRECTED ity of [place] UF 00:00: FOUR [place] 0.3 mL 31 00 TIMES A Medica l gauge x DAY Branch " Syrg BD VEO 2019-0 Yes [id number] USE Univ ers INSULIN 09-14 DIRECTED ity of [place] UF 00:00: FOUR [place] 0.3 mL 00 TIMES A Medica l gauge x DAY Branch " Syrg BD VEO 2019-0 Yes [id number] USE Univ ers INSULIN 09-14 DIRECTED ity of [place] UF 00:00: FOUR [place] 0.3 mL 31 00 TIMES A Medica l gauge x DAY Branch " Syrg BD VEO 2019-0 Yes [id number] USE Univ ers INSULIN 09-14 DIRECTED ity of [place] UF 00:00: FOUR [place] 0.3 mL 31 00 TIMES A Medica l gauge x DAY Branch " Syrg BD VEO 2019-0 Yes [id number] USE Univ ers INSULIN 8 DIRECTED ity of [place] UF 00:00: FOUR [place] 0.3 mL 31 00 TIMES A Medica l gauge x DAY Branch " Syrg BD VEO 2019-0 Yes [id number] USE Univ ers INSULIN 8- DIRECTED ity of [place] UF 00:00: FOUR [place] 0.3 mL 31 00 TIMES A Medica l gauge x DAY Branch 64" Syrg BD VEO 2019-0 Yes [id number] USE Univ ers INSULIN 09-14 DIRECTED ity of [place] UF 00:00: FOUR [place] 0.3 mL 31 00 TIMES A Medica l gauge x DAY Branch 64" Syrg BD VEO 2019-0 Yes [id number] USE Univ ers INSULIN 09-14 DIRECTED ity of [place] UF 00:00: FOUR [place] 0.3 mL 31 00 TIMES A Medica l gauge x DAY Branch " Syrg BD VEO 2019-0 Yes [id number] USE Univ ers INSULIN 09-14 DIRECTED ity of [place] UF 00:00: FOUR [place] 0.3 mL 31 00 TIMES A Medica l gauge x DAY Branch " Syrg BD VEO 2019-0 Yes [id number] USE Univ ers INSULIN 09-14 DIRECTED ity of [place] UF 00:00: FOUR [place] 0.3 mL 31 00 TIMES A Medica l gauge x DAY Branch " Syrg BD VEO 2019-0 Yes [id number] USE Univ ers INSULIN 09-14 DIRECTED ity of [place] UF 00:00: FOUR [place] 0.3 mL 31 00 TIMES A Medica l gauge x DAY Branch " Syrg BD VEO 2019-0 Yes [id number] USE Univ ers INSULIN 09-14 DIRECTED ity of [place] UF 00:00: FOUR [place] 0.3 mL 31 00 TIMES A Medica l gauge x DAY Branch 64" Syrg BD VEO 2019-0 Yes [id number] USE Univ ers INSULIN 09-14 DIRECTED ity of [place] UF 00:00: FOUR [place] 0.3 mL 31 00 TIMES A Medica l gauge x DAY Branch " Syrg BD VEO 2019-0 Yes [id number] USE Univ ers INSULIN 09-14 DIRECTED ity of [place] UF 00:00: FOUR [place] 0.3 mL 31 00 TIMES A Medica l gauge x DAY Branch 1564" Syrg BD VEO 2019-0 2020- No [id number] USE Uni vers INSULIN 810-02 DIRECTED ity of [place] UF 00:00: 00:00 FOUR [place] 0.3 mL 31 00 :00 TIMES A Medica l gauge x DAY Branch 1564" Syrg insulin [id number] Yes Use as [facility] syringe-nee 7-26 directed, ity of dle U-100 00:00: QID, [place] 0.3 mL 31 DX:E11.9 Medica l gauge x Branch 15/64" Syrg insulin 2019-0 Yes Use as [facility] syringe-nee 7-26 directed, ity of dle U-100 00:00: QID, [place] 0.3 mL DX:E11.9 Medica l gauge x Branch 1564" Syrg insulin 2019-0 Yes Use as [facility] syringe-nee 7-26 directed, ity of dle U-100 00:00: QID, [place] 0.3 mL DX:E11.9 Medica l gauge x Branch 1564" Syrg insulin 2019-0 Yes Use as [facility] syringe-nee 7-26 directed, ity of dle U-100 00:00: [facility], [place] 0.3 mL DX:E11.9 Medica l gauge x Branch 1564" Syrg insulin 2019-0 Yes Use as Univers syringe-nee 7-26 directed, ity of dle U-100 00:00: D [place] 0.3 mL DX:E11.9 Medica l gauge x Branch 1564" Syrg insulin 2019-0 Yes Use as Univers syringe-nee 7-26 directed, ity of dle U-100 00:00: [facility] [place] 0.3 mL DX:E11.9 Medica l gauge x Branch 1564" Syrg insulin 2019-0 Yes Use as [facility] syringe-nee 7-26 directed, ity of dle U-100 00:00: [facility] [place] 0.3 mL DX:E11.9 Medica l gauge x Branch 1564" Syrg insulin 2019-0 Yes Use as [facility] syringe-nee 7-26 directed, ity of dle U-100 00:00: D [place] 0.3 mL DX:E11.9 Medica l gauge x Branch 1564" Syrg insulin 2019-0 Yes Use as [facility] syringe-nee 7-26 directed, ity of dle U-100 00:00: [facility] 0.3 mL DX:E11.9 Medica l gauge x Branch 1564" Syrg insulin 2019-0 Yes Use as [facility] syringe-nee 7-26 directed, ity of dle U-100 00:00: QID, [place] 0.3 mL 31 DX:E11.9 Medica l gauge x Branch 1564" Syrg insulin 2019-0 Yes Use as [facility] syringe-nee 7-26 directed, ity of dle U-100 00:00: QID, [place] 0.3 mL 31 DX:E11.9 Medica l gauge x Branch 1564" Syrg insulin 2019-0 Yes Use as [facility] syringe-nee 7-26 directed, ity of dle U-100 00:00: QID, [place] 0.3 mL DX:E11.9 Medica l gauge x Branch 1564" Syrg insulin 2019-0 Yes Use as [facility] syringe-nee 7-26 directed, ity of dle U-100 00:00: QID, [place] 0.3 mL DX:E11.9 Medica l gauge x Branch 1564" Syrg insulin 2019-0 Yes Use as [facility] syringe-nee 7-26 directed, ity of dle U-100 00:00: QID, [place] 0.3 mL DX:E11.9 Medica l gauge x Branch 1564" Syrg insulin 2019-0 Yes Use as [facility] syringe-nee 7-26 directed, ity of dle U-100 00:00: QID, [place] 0.3 mL 31 DX:E11.9 Medica l gauge x Branch 1564" Syrg insulin 2019-0 Yes Use as [facility] syringe-nee 7-26 directed, ity of dle U-100 00:00: QID, [place] 0.3 mL DX:E11.9 Medica l gauge x Branch 1564" Syrg insulin 2019-0 Yes Use as [facility] syringe-nee 7-26 directed, ity of dle U-100 00:00: QID, [place] 0.3 mL DX:E11.9 Medica l gauge x Branch 1564" Syrg insulin 2019-0 Yes Use as [facility] syringe-nee 7-26 directed, ity of dle U-100 00:00: QID, [place] 0.3 mL DX:E11.9 Medica l gauge x [...] gauge x Branch " Syrg cholecalcif Yes [id number] Unsure of [facility] tamika, 7-08 dose. ity of vitamin D3, 00:00: [place] 1,000 unit 00 Medical tablet Branch vitamin 2018- Yes [id number] 5000ug Take 5 U nivers B-12 1,000 7-08 tablets by ity of mcg tablet 00:00: mouth [place] 00 daily. Medical Branch vitamin B-1 Yes [id number] 50mg Take 1 Univers (VITAMIN 7-08 tablet by ity of B-1) 50 mg 00:00: mouth [place] tablet 00 daily. Medical Branch cholecalcif Yes [id number] Unsure of [facility] tamika, 7-08 dose. ity of vitamin D3, 00:00: [place] 1,000 unit 00 Medical tablet Branch vitamin 2018- Yes [id number] 5000ug Take 5 U nivers B-12 1,000 7-08 tablets by ity of mcg tablet 00:00: mouth [place] 00 daily. Medical Branch vitamin B-1 Yes [id number] 50mg Take 1 Univers (VITAMIN 7-08 tablet by ity of B-1) 50 mg 00:00: mouth [place] tablet 00 daily. Medical Branch cholecalcif Yes [id number] Unsure of [facility] tamika, 7-08 dose. ity of vitamin D3, 00:00: [place] 1,000 unit 00 Medical tablet Branch vitamin Yes [id number] 5000ug Take 5 U nivers B-12 1,000 7-08 tablets by ity of mcg tablet 00:00: mouth [place] 00 daily. Medical Branch vitamin B-1 Yes [id number] 50mg Take 1 Univers (VITAMIN 7-08 tablet by ity of B-1) 50 mg 00:00: mouth [place] tablet 00 daily. Medical Branch cholecalcif Yes [id number] Unsure of [facility] tamika, 7-08 dose. ity of vitamin D3, 00:00: [place] 1,000 unit 00 Medical tablet Branch vitamin 2018-0 Yes [id number] 5000ug Take 5 U nivers B-12 1,000 7-08 tablets by ity of mcg tablet 00:00: mouth [place] 00 daily. Medical Branch vitamin B-1 Yes [id number] 50mg Take 1 [facility] (VITAMIN 7-08 tablet by ity of B-1) 50 mg 00:00: mouth [place] tablet 00 daily. Medical Branch cholecalcif Yes [id number] Unsure of [facility] tamika, 7-08 dose. ity of vitamin D3, 00:00: [place] 1,000 unit 00 Medical tablet Branch vitamin 2018-0 Yes [id number] 5000ug Take 5 U nivers B-12 1,000 7-08 tablets by ity of mcg tablet 00:00: mouth [place] 00 daily. Medical Branch vitamin B-1 Yes [id number] 50mg Take 1 [facility] (VITAMIN 7-08 tablet by ity of B-1) 50 mg 00:00: mouth [place] tablet 00 daily. Medical Branch cholecalcif Yes [id number] Unsure of [facility] tamika, 7-08 dose. ity of vitamin D3, 00:00: [place] 1,000 unit 00 Medical tablet Branch vitamin 2018-0 Yes [id number] 5000ug Take 5 U nivers B-12 1,000 7-08 tablets by ity of mcg tablet 00:00: mouth [place] 00 daily. Medical Branch vitamin B-1 Yes [id number] 50mg Take 1 [facility] (VITAMIN 7-08 tablet by ity of B-1) 50 mg 00:00: mouth [place] tablet 00 daily. Medical Branch cholecalcif Yes [id number] Unsure of [facility] tamika, 7-08 dose. ity of vitamin D3, 00:00: [place] 1,000 unit 00 Medical tablet Branch vitamin 2019-0 Yes [id number] 5000ug Take 5 U nivers B-12 1,000 7-08 tablets by ity of mcg tablet 00:00: mouth [place] 00 daily. Medical Branch vitamin B-1 Yes [id number] 50mg Take 1 [facility] (VITAMIN 7-08 tablet by ity of B-1) 50 mg 00:00: mouth [place] tablet 00 daily. Medical Branch cholecalcif Yes [id number] Unsure of [facility] tamika, 7-08 dose. ity of vitamin D3, 00:00: [place] 1,000 unit 00 Medical tablet Branch vitamin 2018- Yes [id number] 5000ug Take 5 U nivers B-12 1,000 7-08 tablets by ity of mcg tablet 00:00: mouth [place] 00 daily. Medical Branch vitamin B-1 Yes [id number] 50mg Take 1 [facility] (VITAMIN 7-08 tablet by ity of B-1) 50 mg 00:00: mouth [place] tablet 00 daily. Medical Branch cholecalcif Yes [id number] Unsure of [facility] tamika, 7-08 dose. ity of vitamin D3, 00:00: [place] 1,000 unit 00 Medical tablet Branch vitamin 2018- Yes [id number] 5000ug Take 5 U nivers B-12 1,000 7-08 tablets by ity of mcg tablet 00:00: mouth [place] 00 daily. Medical Branch vitamin B-1 Yes [id number] 50mg Take 1 [facility] (VITAMIN 7-08 tablet by ity of B-1) 50 mg 00:00: mouth [place] tablet 00 daily. Medical Branch cholecalcif 2018- Yes [id number] Unsure of [facility] tamika, 7-08 dose. ity of vitamin D3, 00:00: [place] 1,000 unit 00 Medical tablet Branch vitamin 2018- Yes [id number] 5000ug Take 5 U nivers B-12 1,000 7-08 tablets by ity of mcg tablet 00:00: mouth [place] 00 daily. Medical Branch vitamin B-1 Yes [id number] 50mg Take 1 [facility] (VITAMIN 7-08 tablet by ity of B-1) 50 mg 00:00: mouth [place] tablet 00 daily. Medical Branch cholecalcif Yes [id number] Unsure of [facility] tamika, 7-08 dose. ity of vitamin D3, 00:00: [place] 1,000 unit 00 Medical tablet Branch vitamin 2019-0 Yes [id number] 5000ug Take 5 U nivers B-12 1,000 7-08 tablets by ity of mcg tablet 00:00: mouth [place] 00 daily. Medical Branch vitamin B-1 Yes [id number] 50mg Take 1 [facility] (VITAMIN 7-08 tablet by ity of B-1) 50 mg 00:00: mouth [place] tablet 00 daily. Medical Branch cholecalcif Yes [id number] Unsure of [facility] tamika, 7-08 dose. ity of vitamin D3, 00:00: [place] 1,000 unit 00 Medical tablet Branch vitamin 2018- Yes [id number] 5000ug Take 5 U nivers B-12 1,000 7-08 tablets by ity of mcg tablet 00:00: mouth [place] 00 daily. Medical Branch vitamin B-1 Yes [id number] 50mg Take 1 [facility] (VITAMIN 7-08 tablet by ity of B-1) 50 mg 00:00: mouth [place] tablet 00 daily. Medical Branch cholecalcif Yes [id number] Unsure of [facility] tamika, 7-08 dose. ity of vitamin D3, 00:00: [place] 1,000 unit 00 Medical tablet Branch vitamin 2019-0 Yes [id number] 5000ug Take 5 U nivers B-12 1,000 7-08 tablets by ity of mcg tablet 00:00: mouth [place] 00 daily. Medical Branch vitamin B-1 Yes [id number] 50mg Take 1 [facility] (VITAMIN 7-08 tablet by ity of B-1) 50 mg 00:00: mouth [place] tablet 00 daily. Medical Branch cholecalcif Yes [id number] Unsure of [facility] tamika, 7-08 dose. ity of vitamin D3, 00:00: [place] 1,000 unit 00 Medical tablet Branch vitamin 2019- Yes [id number] 5000ug Take 5 U nivers B-12 1,000 7-08 tablets by ity of mcg tablet 00:00: mouth [place] 00 daily. Medical Branch vitamin B-1 2018- Yes [id number] 50mg Take 1 [facility] (VITAMIN 7-08 tablet by ity of B-1) 50 mg 00:00: mouth [place] tablet 00 daily. Medical Branch cholecalcif 2018- Yes [id number] Unsure of [facility] tamika, 7-08 dose. ity of vitamin D3, 00:00: [place] 1,000 unit 00 Medical tablet Branch vitamin 2018-0 Yes [id number] 5000ug Take 5 U nivers B-12 1,000 7-08 tablets by ity of mcg tablet 00:00: mouth [place] 00 daily. Medical Branch vitamin B-1 2018- Yes [id number] 50mg Take 1 [facility] (VITAMIN 7-08 tablet by ity of B-1) 50 mg 00:00: mouth [place] tablet 00 daily. Medical Branch cholecalcif Yes [id number] Unsure of [facility] tamika, 7-08 dose. ity of vitamin D3, 00:00: [place] 1,000 unit 00 Medical tablet Branch vitamin 2018-0 Yes [id number] 5000ug Take 5 U nivers B-12 1,000 7-08 tablets by ity of mcg tablet 00:00: mouth [place] 00 daily. [facility] vitamin B-1 Yes [id number] 50mg Take 1 [facility] (VITAMIN 7-08 tablet by ity of B-1) 50 mg 00:00: mouth [place] tablet 00 daily. Medical Branch cholecalcif 2018- Yes [id number] Unsure of [facility] tamika, 7-08 dose. ity of vitamin D3, 00:00: [place] 1,000 unit 00 Medical tablet Branch vitamin 2019-0 Yes [id number] 5000ug Take 5 U nivers B-12 1,000 7-08 tablets by ity of mcg tablet 00:00: mouth [place] 00 daily. Medical [facility] vitamin B-1 2018- Yes [id number] 50mg Take 1 [facility] (VITAMIN 7-08 tablet by ity of B-1) 50 mg 00:00: mouth [place] tablet 00 daily. Medical [facility] cholecalcif 2018- Yes [id number] Unsure of [facility] tamika, 7-08 dose. ity of vitamin D3, 00:00: [place] 1,000 unit 00 Medical tablet Branch vitamin 2019-0 Yes [id number] 5000ug Take 5 U nivers B-12 1,000 7-08 tablets by ity of mcg tablet 00:00: mouth [place] 00 daily. Medical [facility] vitamin B-1 2018- Yes [id number] 50mg Take 1 [facility] (VITAMIN 7-08 tablet by ity of B-1) 50 mg 00:00: mouth [place] tablet 00 daily. Medical Branch cholecalcif 2019- Yes [id number] Unsure of [facility] tamika, 7-08 dose. ity of vitamin D3, 00:00: [place] 1,000 unit 00 Medical tablet Branch vitamin 2019-0 Yes [id number] 5000ug Take 5 U nivers B-12 1,000 7-08 tablets by ity of mcg tablet 00:00: mouth [place] 00 daily. Medical Branch vitamin B-1 2018- Yes [id number] 50mg Take 1 [facility] (VITAMIN 7-08 tablet by ity of B-1) 50 mg 00:00: mouth [place] tablet 00 daily. Medical Branch cholecalcif 2018- Yes [id number] Unsure of [facility] tamika, 7-08 dose. ity of vitamin D3, 00:00: [place] 1,000 unit 00 Medical tablet Branch vitamin 2019-0 Yes [id number] 5000ug Take 5 U nivers B-12 1,000 7-08 tablets by ity of mcg tablet 00:00: mouth [place] 00 daily. Medical Branch vitamin B-1 2018- Yes [id number] 50mg Take 1 [facility] (VITAMIN 7-08 tablet by ity of B-1) 50 mg 00:00: mouth [place] tablet 00 daily. Medical Branch cholecalcif 2018- Yes [id number] Unsure of [facility] tamika, 7-08 dose. ity of vitamin D3, 00:00: [place] 1,000 unit 00 Medical tablet Branch vitamin 2019-0 Yes [id number] 5000ug Take 5 U nivers B-12 1,000 7-08 tablets by ity of mcg tablet 00:00: mouth [place] 00 daily. Medical [facility] vitamin B-1 2018- Yes [id number] 50mg Take 1 [facility] (VITAMIN 7-08 tablet by ity of B-1) 50 mg 00:00: mouth [place] tablet 00 daily. Medical Branch cholecalcif 2018- Yes [id number] Unsure of [facility] tamika, 7-08 dose. ity of vitamin D3, 00:00: [place] 1,000 unit 00 Medical tablet Branch vitamin 2019-0 Yes [id number] 5000ug Take 5 [facility] nivers B-12 1,000 7-08 tablets by ity of mcg tablet 00:00: mouth [place] 00 daily. Medical Branch vitamin B-1 Yes [id number] 50mg Take 1 [facility] (VITAMIN 7-08 tablet by ity of B-1) 50 mg 00:00: mouth [place] tablet 00 daily. Medical Branch cholecalcif Yes [id number] Unsure of [facility] tamika, 7-08 dose. ity of vitamin D3, 00:00: [place] 1,000 unit 00 Medical tablet Branch vitamin 2018-0 Yes [id number] 5000ug Take 5 U nivers B-12 1,000 7-08 tablets by ity of mcg tablet 00:00: mouth [place] 00 daily. Medical Branch vitamin B-1 Yes [id number] 50mg Take 1 [facility] (VITAMIN 7-08 tablet by ity of B-1) 50 mg 00:00: mouth [place] tablet 00 daily. Medical Branch cholecalcif Yes [id number] Unsure of [facility] tamika, 7-08 dose. ity of vitamin D3, 00:00: [place] 1,000 unit 00 Medical tablet Branch vitamin 2019-0 Yes [id number] 5000ug Take 5 [facility] nivers B-12 1,000 7-08 tablets by ity of mcg tablet 00:00: mouth [place] 00 daily. Medical Branch vitamin B-1 Yes [id number] 50mg Take 1 [facility] (VITAMIN 7-08 tablet by ity of B-1) 50 mg 00:00: mouth [place] tablet 00 daily. Medical Branch cholecalcif Yes [id number] Unsure of [facility] tamika, 7-08 dose. ity of vitamin D3, 00:00: [place] 1,000 unit 00 Medical tablet Branch vitamin 2019- Yes [id number] 5000ug Take 5 U nivers B-12 1,000 7-08 tablets by ity of mcg tablet 00:00: mouth [place] 00 daily. Medical Branch vitamin B-1 Yes [id number] 50mg Take 1 [facility] (VITAMIN 7-08 tablet by ity of B-1) 50 mg 00:00: mouth [place] tablet 00 daily. Medical Branch cholecalcif Yes [id number] Unsure of [facility] tamika, 7-08 dose. ity of vitamin D3, 00:00: [place] 1,000 unit 00 Medical tablet Branch vitamin 2019- Yes [id number] 5000ug Take 5 U nivers B-12 1,000 7-08 tablets by ity of mcg tablet 00:00: mouth [place] 00 daily. Medical Branch vitamin B-1 2018- Yes [id number] 50mg Take 1 [facility] (VITAMIN 7-08 tablet by ity of B-1) 50 mg 00:00: mouth [place] tablet 00 daily. Medical Branch cholecalcif 2018- Yes [id number] Unsure of [facility] tamika, 7-08 dose. ity of vitamin D3, 00:00: [place] 1,000 unit 00 Medical tablet Branch vitamin 2019-0 Yes [id number] 5000ug Take 5 U nivers B-12 1,000 7-08 tablets by ity of mcg tablet 00:00: mouth [place] 00 daily. Medical Branch vitamin B-1 Yes [id number] 50mg Take 1 [facility] (VITAMIN 7-08 tablet by ity of B-1) 50 mg 00:00: mouth [place] tablet 00 daily. Medical Branch cholecalcif 2018- Yes [id number] Unsure of [facility] tamika, 7-08 dose. ity of vitamin D3, 00:00: [place] 1,000 unit 00 Medical tablet Branch vitamin 2019-0 Yes [id number] 5000ug Take 5 U nivers B-12 1,000 7-08 tablets by ity of mcg tablet 00:00: mouth [place] 00 daily. Medical Branch vitamin B-1 Yes [id number] 50mg Take 1 [facility] (VITAMIN 7-08 tablet by ity of B-1) 50 mg 00:00: mouth [place] tablet 00 daily. Medical Branch cholecalcif 2018- Yes [id number] Unsure of [facility] tamika, 7-08 dose. ity of vitamin D3, 00:00: [place] 1,000 unit 00 Medical tablet Branch vitamin 2019-0 Yes [id number] 5000ug Take 5 U nivers B-12 1,000 7-08 tablets by ity of mcg tablet 00:00: mouth [place] 00 daily. Medical [facility] vitamin B-1 2018- Yes [id number] 50mg Take 1 [facility] (VITAMIN 7-08 tablet by ity of B-1) 50 mg 00:00: mouth [place] tablet 00 daily. Medical Branch cholecalcif 2018- Yes [id number] Unsure of [facility] tamika, 7-08 dose. ity of vitamin D3, 00:00: [place] 1,000 unit 00 Medical tablet Branch vitamin 2019-0 Yes [id number] 5000ug Take 5 U nivers B-12 1,000 7-08 tablets by ity of mcg tablet 00:00: mouth [place] 00 daily. Medical [facility] vitamin B-1 2018- Yes [id number] 50mg Take 1 [facility] (VITAMIN 7-08 tablet by ity of B-1) 50 mg 00:00: mouth [place] tablet 00 daily. Medical Branch cholecalcif 2018- Yes [id number] Unsure of [facility] tamika, 7-08 dose. ity of vitamin D3, 00:00: [place] 1,000 unit 00 Medical tablet Branch cholecalcif 2018- Yes [id number] Unsure of [facility] tamika, 7-08 dose. ity of vitamin D3, 00:00: [place] 1,000 unit 00 Medical tablet Branch vitamin 2018-0 Yes [id number] 5000ug Take 5 U nivers B-12 1,000 7-08 tablets by ity of mcg tablet 00:00: mouth [place] 00 daily. Medical Branch vitamin B-1 Yes [id number] 50mg Take 1 [facility] (VITAMIN 7-08 tablet by ity of B-1) 50 mg 00:00: mouth [place] tablet 00 daily. Medical Branch vitamin 2019-0 Yes [id number] 5000ug Take 5 U nivers B-12 1,000 7-08 tablets by ity of mcg tablet 00:00: mouth [place] 00 daily. Medical Branch vitamin B-1 Yes [id number] 50mg Take 1 [facility] (VITAMIN 7-08 tablet by ity of B-1) 50 mg 00:00: mouth [place] tablet 00 daily. Medical Branch cholecalcif 2018- Yes [id number] Unsure of [facility] tamika, 7-08 dose. ity of vitamin D3, 00:00: [place] 1,000 unit 00 Medical tablet Branch vitamin 2019-0 Yes [id number] 5000ug Take 5 U nivers B-12 1,000 7-08 tablets by ity of mcg tablet 00:00: mouth [place] 00 daily. Medical Branch vitamin B-1 Yes [id number] 50mg Take 1 [facility] (VITAMIN 7-08 tablet by ity of B-1) 50 mg 00:00: mouth [place] tablet 00 daily. Medical Branch cholecalcif 2018- Yes [id number] Unsure of [facility] tamika, 7-08 dose. ity of vitamin D3, 00:00: [place] 1,000 unit 00 Medical tablet Branch vitamin Yes [id number] 5000ug Take 5 U nivers B-12 1,000 7-08 tablets by ity of mcg tablet 00:00: mouth [place] 00 daily. Medical Branch vitamin B-1 Yes [id number] 50mg Take 1 [facility] (VITAMIN 7-08 tablet by ity of B-1) 50 mg 00:00: mouth [place] tablet 00 daily. Medical Branch cholecalcif Yes [id number] Unsure of [facility] tamika, 7-08 dose. ity of vitamin D3, 00:00: [place] 1,000 unit 00 Medical tablet Branch vitamin Yes [id number] 5000ug Take 5 U nivers B-12 1,000 7-08 tablets by ity of mcg tablet 00:00: mouth [place] 00 daily. Medical Branch vitamin B-1 Yes [id number] 50mg Take 1 [facility] (VITAMIN 7-08 tablet by ity of B-1) 50 mg 00:00: mouth [place] tablet 00 daily. Medical Branch cholecalcif Yes [id number] Unsure of [facility] tamika, 7-08 dose. ity of vitamin D3, 00:00: [place] 1,000 unit 00 Medical tablet Branch vitamin Yes [id number] 5000ug Take 5 U nivers B-12 1,000 7-08 tablets by ity of mcg tablet 00:00: mouth [place] 00 daily. Medical [place] vitamin B-1 Yes [id number] 50mg Take 1 [facility] (VITAMIN 7-08 tablet by ity of B-1) 50 mg 00:00: mouth [place] tablet 00 daily. Medical Branch Insulin 2019- No DX: E11.9 [facility] ers Syringe-Nee 08-03 Use as ity o f dle U-100 00:00: 00:00 [place] (BD INSULIN 00 :00 QID Medical SYRINGE Branch ULTRA-FINE) 0.3 mL 31 gauge x 5/16" Syrg turmeric 2018- Yes [id number] 1{tbl} Take 1 [facility] root 4-11 tablet by ity of extract 500 00:00: mouth [place] mg Cap 00 daily. Medical Branch turmeric 2018- Yes [id number] 1{tbl} Take 1 [facility] root 4-11 tablet by ity of extract 500 00:00: mouth [place] mg Cap 00 daily. Medical Branch turmeric Yes [id number] 1{tbl} Take 1 [facility] root 4-11 tablet by ity of extract 500 00:00: mouth [place] mg Cap 00 daily. Medical Branch turmeric Yes [id number] 1{tbl} Take 1 [facility] root 4-11 tablet by ity of extract 500 00:00: mouth [place] mg Cap 00 daily. Medical Branch turmeric Yes [id number] 1{tbl} Take 1 [facility] root 4-11 tablet by ity of extract 500 00:00: mouth [place] mg Cap 00 daily. Medical Branch turmeric Yes [id number] 1{tbl} Take 1 [facility] root 4-11 tablet by ity of extract 500 00:00: mouth [place] mg Cap 00 daily. Medical Branch turmeric Yes [id number] 1{tbl} Take 1 [facility] root 4-11 tablet by ity of extract 500 00:00: mouth [place] mg Cap 00 daily. Medical Branch turmeric Yes [id number] 1{tbl} Take 1 [facility] root 4-11 tablet by ity of extract 500 00:00: mouth [place] mg Cap 00 daily. Medical Branch turmeric Yes [id number] 1{tbl} Take 1 [facility] root 4-11 tablet by ity of extract 500 00:00: mouth [place] mg Cap 00 daily. Medical Branch turmeric Yes [id number] 1{tbl} Take 1 [facility] root 4-11 tablet by ity of extract 500 00:00: mouth [place] mg Cap 00 daily. Medical Branch turmeric 0 Yes [id number] 1{tbl} Take 1 [facility] root 4-11 tablet by ity of extract 500 00:00: mouth [place] mg Cap 00 daily. Medical Branch turmeric Yes [id number] 1{tbl} Take 1 [facility] root 4-11 tablet by ity of extract 500 00:00: mouth [place] mg Cap 00 daily. Medical Branch turmeric Yes [id number] 1{tbl} Take 1 [facility] root 4-11 tablet by ity of extract 500 00:00: mouth [place] mg Cap 00 daily. Medical Branch turmeric Yes [id number] 1{tbl} Take 1 [facility] root 4-11 tablet by ity of extract 500 00:00: mouth [place] mg Cap 00 daily. Medical Branch meloxicam Yes [id number] 15mg Take 1 U nivers 15 mg 4-11 tablet by ity of tablet 00:00: mouth [place] 00 daily. Medical Branch turmeric Yes [id number] 1{tbl} Take 1 [facility] root 4-11 tablet by ity of extract 500 00:00: mouth [place] mg Cap 00 daily. Medical Branch meloxicam Yes [id number] 15mg Take 1 U nivers 15 mg 4-11 tablet by ity of tablet 00:00: mouth [place] 00 daily. Medical Branch turmeric Yes [id number] 1{tbl} Take 1 [facility] root 4-11 tablet by ity of extract 500 00:00: mouth [place] mg Cap 00 daily. Medical Branch meloxicam Yes [id number] 15mg Take 1 U nivers 15 mg 4-11 tablet by ity of tablet 00:00: mouth [place] 00 daily. Medical Branch turmeric Yes [id number] 1{tbl} Take 1 [facility] root 4-11 tablet by ity of extract 500 00:00: mouth [place] mg Cap 00 daily. Medical Branch meloxicam Yes [id number] 15mg Take 1 U nivers 15 mg 4-11 tablet by ity of tablet 00:00: mouth [place] 00 daily. Medical Branch turmeric Yes [id number] 1{tbl} Take 1 [facility] root 4-11 tablet by ity of extract 500 00:00: mouth [place] mg Cap 00 daily. Medical Branch turmeric Yes [id number] 1{tbl} Take 1 [facility] root 4-11 tablet by ity of extract 500 00:00: mouth [place] mg Cap 00 daily. Medical Branch turmeric Yes [id number] 1{tbl} Take 1 [facility] root 4-11 tablet by ity of extract 500 00:00: mouth [place] mg Cap 00 daily. Medical Branch turmeric Yes [id number] 1{tbl} Take 1 [facility] root 4-11 tablet by ity of extract 500 00:00: mouth [place] mg Cap 00 daily. Medical Branch turmeric Yes [id number] 1{tbl} Take 1 [facility] root 4-11 tablet by ity of extract 500 00:00: mouth [place] mg Cap 00 daily. Medical Branch turmeric 0 Yes [id number] 1{tbl} Take 1 [facility] root 4-11 tablet by ity of extract 500 00:00: mouth [place] mg Cap 00 daily. Medical Branch turmeric Yes [id number] 1{tbl} Take 1 [facility] root 4-11 tablet by ity of extract 500 00:00: mouth [place] mg Cap 00 daily. Medical Branch turmeric 0 Yes [id number] 1{tbl} Take 1 [facility] root 4-11 tablet by ity of extract 500 00:00: mouth [place] mg Cap 00 daily. Medical Branch turmeric Yes [id number] 1{tbl} Take 1 [facility] root 4-11 tablet by ity of extract 500 00:00: mouth [place] mg Cap 00 daily. Medical Branch turmeric Yes [id number] 1{tbl} Take 1 [facility] root 4-11 tablet by ity of extract 500 00:00: mouth [place] mg Cap 00 daily. Medical Branch turmeric Yes [id number] 1{tbl} Take 1 [facility] root 4-11 tablet by ity of extract 500 00:00: mouth [place] mg Cap 00 daily. Medical Branch turmeric Yes [id number] 1{tbl} Take 1 [facility] root 4-11 tablet by ity of extract 500 00:00: mouth [place] mg Cap 00 daily. Medical Branch turmeric Yes [id number] 1{tbl} Take 1 [facility] root 4-11 tablet by ity of extract 500 00:00: mouth [place] mg Cap 00 daily. Medical Branch turmeric 0 Yes [id number] 1{tbl} Take 1 [facility] root 4-11 tablet by ity of extract 500 00:00: mouth [place] mg Cap 00 daily. Medical Branch turmeric 0 Yes [id number] 1{tbl} Take 1 [facility] root 4-11 tablet by ity of extract 500 00:00: mouth [place] mg Cap 00 daily. Medical Branch turmeric Yes [id number] 1{tbl} Take 1 [facility] root 4-11 tablet by ity of extract 500 00:00: mouth [place] mg Cap 00 daily. Medical Branch turmeric Yes [id number] 1{tbl} Take 1 [facility] root 4-11 tablet by ity of extract 500 00:00: mouth [place] mg Cap 00 daily. Medical Branch turmeric 2019- Yes [id number] 1{tbl} Take 1 [facility] root 4-11 tablet by ity of extract 500 00:00: mouth [place] mg Cap 00 daily. Medical Branch turmeric 2018- Yes [id number] 1{tbl} Take 1 [facility] root 4-11 tablet by ity of extract 500 00:00: mouth [place] mg Cap 00 daily. Medical Branch meloxicam 2019- No [id number] 15mg Take 1 [facility] 15 mg 4-11 09-09 tablet by ity of tablet 00:00: 00:00 mouth [place] 00 :00 daily. Medical Branch gabapentin 2018- Yes [id number] 900mg Take 3 [facility] 300 mg 2-22 capsules ity of capsule 00:00: by mouth 3 [place] 00 (three) Medical times Branch daily. gabapentin 2018- Yes [id number] 900mg Take 3 [facility] 300 mg 2-22 capsules ity of capsule 00:00: [place] mouth [place] 00 (three) Medical times Branch daily. gabapentin 2019- No [id number] 900mg Take 3 [facility] 300 mg 2-22 08-15 capsules ity of capsule 00:00: 00:00 by mouth 3 [place] 00 :00 (three) Medical times Branch daily. levothyroxi Yes [id number] 125ug Take 1 [facility] ne 125 mcg 2-10 tablet by ity of tablet 00:00: mouth [place] 00 every Medical morning. Branch levothyroxi 2018- Yes [id number] 125ug Take 1 [facility] ne 125 mcg 2-10 tablet by ity of tablet 00:00: mouth [place] 00 every Medical morning. Branch levothyroxi Yes [id number] 125ug Take 1 [facility] ne 125 mcg 2-10 tablet by ity of tablet 00:00: mouth [place] 00 every Medical morning. Branch levothyroxi Yes [id number] 125ug Take 1 [facility] ne 125 mcg 2-10 tablet by ity of tablet 00:00: mouth [place] 00 every Medical morning. Branch levothyroxi 0 2019- No [id number] 125ug Take 1 [facility] ne 125 mcg 2-10 - tablet by ity of tablet 00:00: 00:00 mouth [place] 00 :00 every Medical morning. Branch hydroCHLORO 2017-02 Yes [id number] 50mg Take 1 U nivers thiazide 50 1-30 tablet by ity of mg tablet 00:00: mouth [place] 00 daily. For Medical blood Branch pressure. hydroCHLORO 2017-02 Yes [id number] 50mg Take 1 U nivers thiazide 50 1-30 tablet by ity of mg tablet 00:00: mouth [place] 00 daily. For Medical blood Branch pressure. hydroCHLORO 2017-02 Yes [id number] 50mg Take 1 U nivers thiazide 50 1-30 tablet by ity of mg tablet 00:00: mouth [place] 00 daily. For Medical blood Branch pressure. hydroCHLORO 2017-02 Yes [id number] 50mg Take 1 U nivers thiazide 50 1-30 tablet by ity of mg tablet 00:00: mouth [place] 00 daily. For Medical blood Branch pressure. hydroCHLORO 2017-02 Yes [id number] 50mg Take 1 U nivers thiazide 50 1-30 tablet by ity of mg tablet 00:00: mouth [place] 00 daily. For Medical blood Branch pressure. atorvastati 2017-02 Yes 20mg Take 1 [facility] ers n (LIPITOR) 1-12 tablet by ity of 20 mg 00:00: mouth at [place] tablet 00 bedtime. Medical For Branch cholestero l insulin 2017-02 Yes [id number] 5U inject 5 U nivers regular 1-12 Units ity of human 00:00: under the [place] (HUMULIN R 00 skin 3 Medical REGULAR (three) Branch U-100 times INSULN) 100 daily unit/mL before injection meals. losartan 2017-02 Yes [id number] 100mg Take 1 [facility] vers 100 mg 1-12 tablet by ity of tablet 00:00: mouth [place] 00 daily. For Medical blood Branch pressure metFORMIN 2017-02 Yes [id number] 1000mg Take 1 [facility] 1,000 mg 1-12 tablet by ity of tablet 00:00: mouth 2 [place] 00 (two) Medical times Branch daily with meals. For diabetes insulin 2017-02 Yes [id number] 30U inject 30 [facility] glargine 1-12 Units ity of (LANTUS 00:00: under the [place] U-100 00 skin at Medical INSULIN) bedtime. Branch 100 unit/mL injection atorvastati 2017-02 Yes 20mg Take 1 [facility] ers n (LIPITOR) 1-12 tablet by ity of 20 mg 00:00: mouth at [place] tablet 00 bedtime. Medical For Branch cholestero l insulin 2017-02 Yes [id number] 5U inject 5 U nivers regular 1-12 Units ity of human 00:00: under the [place] (HUMULIN R 00 skin 3 Medical REGULAR (three) Branch U-100 times INSULN) 100 daily unit/mL before injection meals. losartan 2017-02 Yes [id number] 100mg Take 1 [facility] vers 100 mg 1-12 tablet by ity of tablet 00:00: mouth [place] 00 daily. For Medical blood Branch pressure metFORMIN 2017-02 Yes [id number] 1000mg Take 1 [facility] 1,000 mg 1-12 tablet by ity of tablet 00:00: mouth 2 00 (two) Medical times Branch daily with meals. For diabetes insulin 2017-02 Yes [id number] 30U inject 30 [facility] glargine 1-12 Units ity of (LANTUS 00:00: under the [place] U-100 00 skin at Medical INSULIN) bedtime. Branch 100 unit/mL injection atorvastati 2017-02 Yes 20mg Take 1 [facility] ers n (LIPITOR) 1-12 tablet by ity of 20 mg 00:00: mouth at [place] tablet 00 bedtime. Medical For Branch cholestero l insulin 2017-02 Yes [id number] 5U inject 5 U nivers regular 1-12 Units ity of human 00:00: under the [place] (HUMULIN R 00 skin 3 Medical REGULAR (three) Branch U-100 times INSULN) 100 daily unit/mL before injection meals. losartan 2017-02 Yes [id number] 100mg Take 1 [facility] vers 100 mg 1-12 tablet by ity of tablet 00:00: mouth [place] 00 daily. For Medical blood Branch pressure metFORMIN 2017-02 Yes [id number] 1000mg Take 1 [facility] 1,000 mg 1-12 tablet by ity of tablet 00:00: mouth 2 00 (two) Medical times Branch daily with meals. For diabetes insulin 2017-02 Yes [id number] 30U inject 30 [facility] glargine 1-12 Units ity of (LANTUS 00:00: under the [place] U-100 00 skin at Medical INSULIN) bedtime. Branch 100 unit/mL injection atorvastati 2017-02 Yes 20mg Take 1 [facility] ers n (LIPITOR) 1-12 tablet by ity of 20 mg 00:00: mouth at [place] tablet 00 bedtime. Medical For Branch cholestero l insulin 2017-02 Yes [id number] 5U inject 5 U nivers regular 1-12 Units ity of human 00:00: under the [place] (HUMULIN R 00 skin 3 Medical REGULAR (three) Branch U-100 times INSULN) 100 daily unit/mL before injection meals. losartan 2017-02 Yes [id number] 100mg Take 1 [facility] vers 100 mg 1-12 tablet by ity of tablet 00:00: mouth [place] 00 daily. For Medical blood Branch pressure metFORMIN 2017-02 Yes [id number] 1000mg Take 1 [facility] 1,000 mg 1-12 tablet by ity of tablet 00:00: mouth 2 00 (two) Medical times Branch daily with meals. For diabetes insulin 2017-02 Yes [id number] 30U inject 30 [facility] glargine 1-12 Units ity of (LANTUS 00:00: under the [place] U-100 00 skin at Medical INSULIN) bedtime. Branch 100 unit/mL injection atorvastati 2017-02 Yes 20mg Take 1 [facility] ers n (LIPITOR) 1-12 tablet by ity of 20 mg 00:00: mouth at [place] tablet 00 bedtime. Medical For Branch cholestero l insulin 2017-02 Yes [id number] 5U inject 5 U nivers regular 1-12 Units ity of human 00:00: under the [place] (HUMULIN R 00 skin 3 Medical REGULAR (three) Branch U-100 times INSULN) 100 daily unit/mL before injection meals. losartan 2017-02 Yes [id number] 100mg Take 1 [facility] vers 100 mg 1-12 tablet by ity of tablet 00:00: mouth [place] 00 daily. For Medical blood Branch pressure metFORMIN 2017-02 Yes [id number] 1000mg Take 1 [facility] 1,000 mg 1-12 tablet by ity of tablet 00:00: mouth 2 [place] 00 (two) Medical times Branch daily with meals. For diabetes insulin 2017-02 Yes [id number] 30U inject 30 [facility] glargine 1-12 Units ity of (LANTUS 00:00: under the [place] U-100 00 skin at Medical INSULIN) bedtime. Branch 100 unit/mL injection Insulin Yes Check [facility] Syringes, 1-22 Fingerstic ity of Disposable, 00:00: k blood [place] 1 mL Syrg 00 glucose Medical qid. Branch Please dispense the relion syringes. RX#[id number] 4 ICD-E11.9 Insulin 0 Yes Check [facility] Syringes, 1-22 Fingerstic ity of Disposable, 00:00: k blood [place] 1 mL Syrg 00 glucose Medical qid. Branch Please dispense the relion syringes. RX#[id number] 4 ICD-E11.9 Insulin Yes Check [facility] Syringes, 1-22 Fingerstic ity of Disposable, 00:00: k blood [place] 1 mL Syrg 00 glucose Medical qid. Branch Please dispense the relion syringes. RX#[id number] 4 ICD-E11.9 Insulin Yes Check [facility] Syringes, 1-22 Fingerstic ity of Disposable, 00:00: k blood [place] 1 mL Syrg 00 glucose Medical qid. Branch Please dispense the relion syringes. RX#[id number] 4 ICD-E11.9 Insulin Yes Check [facility] Syringes, 1-22 Fingerstic ity of Disposable, 00:00: k blood [place] 1 mL Syrg 00 glucose Medical qid. Branch Please dispense the relion syringes. RX#[id number] 4 ICD-E11.9 Insulin Yes Check [facility] Syringes, 1-22 Fingerstic ity of Disposable, 00:00: k blood [place] 1 mL Syrg 00 glucose Medical qid. Branch Please dispense the relion syringes. RX#[id number] 4 ICD-E11.9 Insulin Yes Check [facility] Syringes, 1-22 Fingerstic ity of Disposable, 00:00: k blood [place] 1 mL Syrg 00 glucose Medical qid. Branch Please dispense the relion syringes. RX#[id number] 4 ICD-E11.9 Insulin Yes Check [facility] Syringes, 1-22 Fingerstic ity of Disposable, 00:00: k blood [place] 1 mL Syrg 00 glucose Medical qid. Branch Please dispense the relion syringes. RX#[id number] 4 ICD-E11.9 Insulin 0 Yes Check [facility] Syringes, 1-22 Fingerstic ity of Disposable, 00:00: k blood [place] 1 mL Syrg 00 glucose Medical qid. Branch Please dispense the relion syringes. RX#[id number] 4 ICD-E11.9 Insulin Yes Check [facility] Syringes, 1-22 Fingerstic ity of Disposable, 00:00: k blood [place] 1 mL Syrg 00 glucose Medical qid. Branch Please dispense the relion syringes. RX#[id number] 4 ICD-E11.9 Insulin Yes Check [facility] Syringes, 1-22 Fingerstic ity of Disposable, 00:00: k blood [place] 1 mL Syrg 00 glucose Medical qid. Branch Please dispense the relion syringes. RX#[id number] 4 ICD-E11.9 Insulin Yes Check [facility] Syringes, 1-22 Fingerstic ity of Disposable, 00:00: k blood [place] 1 mL Syrg 00 glucose Medical qid. Branch Please dispense the relion syringes. RX#[id number] 4 ICD-E11.9 Insulin Yes Check [facility] Syringes, 1-22 Fingerstic ity of Disposable, 00:00: k blood [place] 1 mL Syrg 00 glucose Medical qid. Branch Please dispense the relion syringes. RX#[id number] 4 ICD-E11.9 Insulin Yes Check [facility] Syringes, 1-22 Fingerstic ity of Disposable, 00:00: k blood [place] 1 mL Syrg 00 glucose Medical qid. Branch Please dispense the relion syringes. RX#[id number] 4 ICD-E11.9 Insulin Yes Check [facility] Syringes, 1-22 Fingerstic ity of Disposable, 00:00: k blood [place] 1 mL Syrg 00 glucose Medical qid. Branch Please dispense the relion syringes. RX#[id number] 4 ICD-E11.9 Insulin Yes Check [facility] Syringes, 1-22 Fingerstic ity of Disposable, 00:00: k blood [place] 1 mL Syrg 00 glucose Medical qid. Branch Please dispense the relion syringes. RX#[id number] 4 ICD-E11.9 Insulin Yes Check [facility] Syringes, 1-22 Fingerstic ity of Disposable, 00:00: k blood [place] 1 mL Syrg 00 glucose Medical qid. Branch Please dispense the relion syringes. RX#[id number] ICD-E11.9 Insulin Yes Check [facility] Syringes, 1-22 Fingerstic ity of Disposable, 00:00: k blood Kyle as 1 mL Syrg 00 glucose Medical qid. Branch Please dispense the relion syringes. RX#[id number] ICD-E11.9 Insulin 0 Yes Check [facility] Syringes, 1-22 Fingerstic ity of Disposable, 00:00: k blood [place] as 1 mL Syrg 00 glucose Medical qid. Branch Please dispense the relion syringes. RX#[id number] ICD-E11.9 Insulin 0 Yes Check Univers Syringes, 1-22 Fingerstic ity of Disposable, 00:00: k blood [place] as 1 mL Syrg 00 glucose Medical qid. Branch Please dispense the relion syringes. RX#[id number] ICD-E11.9 Insulin Yes Check [facility] Syringes, 1-22 Fingerstic ity of Disposable, 00:00: k blood [place] as 1 mL Syrg 00 glucose Medical qid. Branch Please dispense the relion syringes. RX#[id number] ICD-E11.9 Insulin Yes Check [facility] Syringes, 1-22 Fingerstic ity of Disposable, 00:00: k blood [place] as 1 mL Syrg 00 glucose Medical qid. Branch Please dispense the relion syringes. RX#[id number] ICD-E11.9 Insulin 0 Yes Check [facility] Syringes, 1-22 Fingerstic ity of Disposable, 00:00: k blood [place] as 1 mL Syrg 00 glucose Medical qid. Branch Please dispense the relion syringes. RX#[id number] ICD-E11.9 Insulin Yes Check [facility] Syringes, 1-22 Fingerstic ity of Disposable, 00:00: k blood [place] as 1 mL Syrg 00 glucose Medical qid. Branch Please dispense the relion syringes. RX#[id number] ICD-E11.9 Insulin 0 Yes Check [facility] Syringes, 1-22 Fingerstic ity of Disposable, 00:00: k blood [place] as 1 mL Syrg 00 glucose Medical qid. Branch Please dispense the relion syringes. RX#[id number] ICD-E11.9 Insulin 0 Yes Check [facility] Syringes, 1-22 Fingerstic ity of Disposable, 00:00: k blood [place] as 1 mL Syrg 00 glucose Medical qid. Branch Please dispense the relion syringes. RX#[id number] ICD-E11.9 Insulin 0 Yes Check [facility] Syringes, 1-22 Fingerstic ity of Disposable, 00:00: k blood [place] as 1 mL Syrg 00 glucose Medical qid. Branch Please dispense the relion syringes. RX#[id number] ICD-E11.9 Insulin Yes Check [facility] Syringes, 1-22 Fingerstic ity of Disposable, 00:00: k blood [place] as 1 mL Syrg 00 glucose Medical qid. Branch Please dispense the relion syringes. RX#[id number] ICD-E11.9 Insulin Yes Check [facility] Syringes, 1-22 Fingerstic ity of Disposable, 00:00: k blood [place] as 1 mL Syrg 00 glucose Medical qid. Branch Please dispense the relion syringes. RX#[id number] ICD-E11.9 Insulin Yes Check [facility] Syringes, 1-22 Fingerstic ity of Disposable, 00:00: k blood [place] as 1 mL Syrg 00 glucose Medical qid. Branch Please dispense the relion syringes. RX#[id number] ICD-E11.9 Insulin Yes Check [facility] Syringes, 1-22 Fingerstic ity of Disposable, 00:00: k blood [place] as 1 mL Syrg 00 glucose Medical qid. Branch Please dispense the relion syringes. RX#[id number] ICD-E11.9 Insulin Yes Check [facility] Syringes, 1-22 Fingerstic ity of Disposable, 00:00: k blood [place] as 1 mL Syrg 00 glucose Medical qid. Branch Please dispense the relion syringes. RX#[id number] ICD-E11.9 Insulin Yes Check [facility] Syringes, 1-22 Fingerstic ity of Disposable, 00:00: k blood [place] as 1 mL Syrg 00 glucose Medical qid. Branch Please dispense the relion syringes. RX#[id number] ICD-E11.9 Insulin 0 Yes Check [facility] Syringes, 1-22 Fingerstic ity of Disposable, 00:00: k blood [place] as 1 mL Syrg 00 glucose Medical qid. Branch Please dispense the relion syringes. RX#[id number] ICD-E11.9 Insulin 2018-0 Yes Check [facility] Syringes, 1-22 Fingerstic ity of Disposable, 00:00: k blood [place] as 1 mL Syrg 00 glucose Medical qid. Branch Please dispense the relion syringes. RX#[id number] ICD-E11.9 Insulin 2017-0 Yes Check [facility] Syringes, 1-22 Fingerstic ity of Disposable, 00:00: k blood [place] as 1 mL Syrg 00 glucose Medical qid. Branch Please dispense the relion syringes. RX#[id number] ICD-E11.9 Lancets & 2013-0 Yes [id number] Univ ers Blood 8-12 ity of Glucose 00:00: [place] Strips (ONE 00 Medical TOUCH Branch COMBO) Cmpk Lancets & 2013-0 Yes [id number] Univ ers Blood 8-12 ity of Glucose 00:00: [place] Strips ( 00 Medical TOUCH Branch COMBO) Cmpk Lancets & 2013-0 Yes [id number] Univ ers Blood 8-12 ity of Glucose 00:00: [place] Strips ( 00 Medical TOUCH Branch COMBO) Cmpk Lancets & 2013-0 Yes [id number] Univ ers Blood 8-12 ity of Glucose 00:00: [place] Strips (ONE 00 Medical TOUCH Branch COMBO) Cmpk Lancets & 2013-0 Yes [id number] Univ ers Blood 8-12 ity of Glucose 00:00: [place] Strips ( 00 Medical TOUCH Branch COMBO) Cmpk Lancets & 2013-0 Yes [id number] Univ ers Blood 8-12 ity of Glucose 00:00: [place] Strips ( 00 Medical TOUCH Branch COMBO) Cmpk Lancets & 2013-0 Yes [id number] Univ ers Blood 8-12 ity of Glucose 00:00: [place] Strips ( 00 Medical TOUCH Branch COMBO) Cmpk Lancets & 2013-0 Yes [id number] Univ ers Blood 8-12 ity of Glucose 00:00: [place] Strips ( 00 Medical TOUCH Branch COMBO) Cmpk Lancets & 2013-0 Yes [id number] Univ ers Blood 8-12 ity of Glucose 00:00: [place] Strips ( 00 Medical TOUCH Branch COMBO) Cmpk Lancets & 2013-0 Yes [id number] Univ ers Blood 8-12 ity of Glucose 00:00: [place] Strips ( 00 Medical TOUCH Branch COMBO) Cmpk Lancets & 2013-0 Yes [id number] Univ ers Blood 8-12 ity of Glucose 00:00: [place] Strips (ONE 00 Medical TOUCH Branch COMBO) Cmpk Lancets & 2013-0 Yes [id number] Univ ers Blood 8-12 ity of Glucose 00:00: [place] Strips (ONE 00 Medical TOUCH Branch COMBO) Cmpk Lancets & 2013-0 Yes [id number] Univ ers Blood 8-12 ity of Glucose 00:00: [place] Strips (ONE 00 Medical TOUCH Branch COMBO) Cmpk Lancets & 2013-0 Yes [id number] Univ ers Blood 8-12 ity of Glucose 00:00: [place] Strips (ONE 00 Medical TOUCH Branch COMBO) Cmpk Lancets & 2013-0 Yes [id number] Univ ers Blood 8-12 ity of Glucose 00:00: [place] Strips (ONE 00 Medical TOUCH Branch COMBO) Cmpk Lancets & 2013-0 Yes [id number] Univ ers Blood 8-12 ity of Glucose 00:00: [place] Strips (ONE 00 Medical TOUCH Branch COMBO) Cmpk Lancets & 2013-0 Yes [id number] Univ ers Blood 8-12 ity of Glucose 00:00: [place] Strips (ONE 00 Medical TOUCH Branch COMBO) Cmpk Lancets & 2013-0 Yes [id number] Univ ers Blood 8-12 ity of Glucose 00:00: [place] Strips (ONE 00 Medical TOUCH Branch COMBO) Cmpk Lancets & 2013-0 Yes [id number] Univ ers Blood 8-12 ity of Glucose 00:00: [place] Strips ( 00 Medical TOUCH Branch COMBO) Cmpk Lancets & 2013-0 Yes [id number] Univ ers Blood 8-12 ity of Glucose 00:00: [place] Strips (ONE 00 Medical TOUCH Branch COMBO) Cmpk Lancets & 2013-0 Yes [id number] Univ ers Blood 8-12 ity of Glucose 00:00: [place] Strips (ONE 00 Medical TOUCH Branch COMBO) Cmpk Lancets & 2013-0 Yes [id number] Univ ers Blood 8-12 ity of Glucose 00:00: [place] Strips (ONE 00 Medical TOUCH Branch COMBO) Cmpk Lancets & 2013-0 Yes [id number] Univ ers Blood 8-12 ity of Glucose 00:00: [place] Strips ( 00 Medical TOUCH Branch COMBO) Cmpk Lancets & 2013-0 Yes [id number] Univ ers Blood 8-12 ity of Glucose 00:00: [place] Strips (ONE 00 Medical TOUCH Branch COMBO) Cmpk Lancets & 2013-0 Yes [id number] Univ ers Blood 8-12 ity of Glucose 00:00: [place] Strips (ONE 00 Medical TOUCH Branch COMBO) Cmpk Lancets & 2013-0 Yes [id number] Univ ers Blood 8-12 ity of Glucose 00:00: [place] Strips (ONE 00 Medical TOUCH Branch COMBO) Cmpk Lancets & 2013-0 Yes [id number] Univ ers Blood 8-12 ity of Glucose 00:00: [place] Strips (ONE 00 Medical TOUCH Branch COMBO) Cmpk Lancets & 2013-0 Yes [id number] Univ ers Blood 8-12 ity of Glucose 00:00: [place] Strips (ONE 00 Medical TOUCH Branch COMBO) Cmpk Lancets & 2012-0 Yes [id number] Univ ers Blood 8-12 ity of Glucose 00:00: [place] Strips ( 00 Medical TOUCH Branch COMBO) Cmpk Lancets & 2013-0 Yes [id number] Univ ers Blood 8-12 ity of Glucose 00:00: [place] Strips ( 00 Medical TOUCH Branch COMBO) Cmpk Lancets & 2012-0 Yes [id number] Univ ers Blood 8-12 ity of Glucose 00:00: [place] Strips (ONE 00 Medical TOUCH Branch COMBO) Cmpk Lancets & 2013-0 Yes [id number] Univ ers Blood 8-12 ity of Glucose 00:00: [place] Strips ( 00 Medical TOUCH Branch COMBO) Cmpk Lancets & 2013-0 Yes [id number] Univ ers Blood 8-12 ity of Glucose 00:00: [place] Strips (ONE 00 Medical TOUCH Branch COMBO) Cmpk Lancets & 2013-0 Yes [id number] Univ ers Blood 8-12 ity of Glucose 00:00: [place] Strips ( 00 Medical TOUCH Branch COMBO) Cmpk Lancets & 2013-0 Yes [id number] Univ ers Blood 8-12 ity of Glucose 00:00: [place] Strips ( 00 Medical TOUCH Branch COMBO) Cmpk Lancets & 2013-0 Yes [id number] Univ ers Blood 8-12 ity of Glucose 00:00: [place] Strips ( 00 Medical TOUCH Branch COMBO) Cmpk Cushion 2011-02 Yes [id number] Univer s (CERVICAL 1-26 ity of PILLOW/COVE 00:00: [place] R) Mis 00 Medical Branch Cushion 2011-02 Yes [id number] Univer s (CERVICAL 1-26 ity of PILLOW/COVE 00:00: [place] R) Mis 00 Medical Branch Cushion 2011-02 Yes [id number] Univer s (CERVICAL 1-26 ity of PILLOW/COVE 00:00: [place] R) Mis 00 Medical Branch Cushion 2011-02 Yes [id number] Univer s (CERVICAL 1-26 ity of PILLOW/COVE 00:00: [place] R) Mis 00 Medical Branch Cushion 2011-02 Yes [id number] Univer s (CERVICAL 1-26 ity of PILLOW/COVE 00:00: [place] R) Mis 00 Medical Branch Cushion 2011-02 Yes [id number] Univer s (CERVICAL 1-26 ity of PILLOW/COVE 00:00: [place] R) Mis 00 Medical Branch Cushion 2011-02 Yes [id number] Univer s (CERVICAL 1-26 ity of PILLOW/COVE 00:00: [place] R) Mis 00 Medical Branch Cushion 2011-02 Yes [id number] Univer s (CERVICAL 1-26 ity of PILLOW/COVE 00:00: [place] R) Mis 00 Medical Branch Cushion 2011-02 Yes [id number] Univer s (CERVICAL 1-26 ity of PILLOW/COVE 00:00: [place] R) Mis 00 Medical Branch Cushion 2011-02 Yes [id number] Univer s (CERVICAL 1-26 ity of PILLOW/COVE 00:00: [place] R) Mis 00 Medical Branch Cushion 2011-02 Yes [id number] Univer s (CERVICAL 1-26 ity of PILLOW/COVE 00:00: [place] R) Mis 00 Medical Branch Cushion 2011-02 Yes [id number] Univer s (CERVICAL 1-26 ity of PILLOW/COVE 00:00: [place] R) Mis 00 Medical Branch Cushion 2011-02 Yes [id number] Univer s (CERVICAL 1-26 ity of PILLOW/COVE 00:00: [place] R) Mis 00 Medical Branch Cushion 2011-02 Yes [id number] Univer s (CERVICAL 1-26 ity of PILLOW/COVE 00:00: [place] R) Mis 00 Medical Branch Cushion 2011-02 Yes [id number] Univer s (CERVICAL 1-26 ity of PILLOW/COVE 00:00: [place] R) Mis 00 Medical Branch Cushion 2011-02 Yes [id number] Univer s (CERVICAL 1-26 ity of PILLOW/COVE 00:00: [place] R) Mis 00 Medical Branch Cushion 2011-02 Yes [id number] Univer s (CERVICAL 1-26 ity of PILLOW/COVE 00:00: [place] R) Mis 00 Medical Branch Cushion 2011-02 Yes [id number] Univer s (CERVICAL 1-26 ity of PILLOW/COVE 00:00: [place] R) Mis 00 Medical Branch Cushion 2011-02 Yes [id number] Univer s (CERVICAL 1-26 ity of PILLOW/COVE 00:00: [place] R) Mis Medical Branch Cushion 2011-02 Yes [id number] Univer s (CERVICAL 1-26 ity of PILLOW/COVE 00:00: [place] R) [facility] 00 Medical Branch Cushion 2011-02 Yes [id number] Univer s (CERVICAL 1-26 ity of PILLOW/COVE 00:00: [place] R) Mis 00 Medical Branch Cushion 2011-02 Yes [id number] Univer s (CERVICAL 1-26 ity of PILLOW/COVE 00:00: [place] R) Mis 00 Medical Branch Cushion 2011-02 Yes [id number] Univer s (CERVICAL 1-26 ity of PILLOW/COVE 00:00: [place] R) Mis 00 Medical Branch Cushion 2011-02 Yes [id number] Univer s (CERVICAL 1-26 ity of PILLOW/COVE 00:00: [place] R) Mis 00 Medical Branch Cushion 2011-02 Yes [id number] Univer s (CERVICAL 1-26 ity of PILLOW/COVE 00:00: [place] R) Mis 00 Medical Branch Cushion 2011-02 Yes [id number] Univer s (CERVICAL 1-26 ity of PILLOW/COVE 00:00: [place] R) Mis 00 Medical Branch Cushion 2011-02 Yes [id number] Univer s (CERVICAL 1-26 ity of PILLOW/COVE 00:00: [place] R) Mis 00 Medical Branch Cushion 2011-02 Yes [id number] Univer s (CERVICAL 1-26 ity of PILLOW/COVE 00:00: [place] R) [facility] 00 Medical Branch Cushion 2011-02 Yes [id number] Univer s (CERVICAL 1-26 ity of PILLOW/COVE 00:00: [place] R) [facility] 00 Medical Branch Cushion 2011-02 Yes [id number] Univer s (CERVICAL 1-26 ity of PILLOW/COVE 00:00: [place] R) [facility] 00 Medical Branch Cushion 2011-02 Yes [id number] Univer s (CERVICAL 1-26 ity of PILLOW/COVE 00:00: [place] R) [facility] 00 Medical Branch Cushion 2011-02 Yes [id number] Univer s (CERVICAL 1-26 ity of PILLOW/COVE 00:00: [place] R) [facility] 00 Medical Branch Cushion 2011-02 Yes [id number] Univer s (CERVICAL 1-26 ity of PILLOW/COVE 00:00: [place] R) [facility] 00 Medical Branch Cushion 2011-02 Yes [id number] Univer s (CERVICAL 1-26 ity of PILLOW/COVE 00:00: [place] R) [facility] 00 Medical Branch Cushion 2011-02 Yes [id number] Univer s (CERVICAL 1-26 ity of PILLOW/COVE 00:00: [place] R) [facility] 00 Medical Branch Cushion 2011-02 Yes [id number] Univer s (CERVICAL 1-26 ity of PILLOW/COVE 00:00: [place] R) [facility] 00 Medical Branch Immunizations Ordered Filled Immunization Date Status Comments [facility] e Immunization Name Name SARS-COV-2 COVID-19 2020-04-12 Completed Unive rsity of PFIZER VACCINE 00:00:00 [facility] SARS-COV-2 COVID-19 2020-04-12 Completed Unive rsity of PFIZER VACCINE 00:00:00 [facility] SARS-COV-2 COVID-19 2020-04-12 Completed Unive rsity of PFIZER VACCINE 00:00:00 [facility] SARS-COV-2 COVID-19 2020-04-12 Completed Unive rsity of PFIZER VACCINE 00:00:00 [facility] SARS-COV-2 COVID-19 2020-04-12 Completed Unive rsity of PFIZER VACCINE 00:00:00 [facility] SARS-COV-2 COVID-19 2020-04-12 Completed Unive rsity of PFIZER VACCINE 00:00:00 [facility] SARS-COV-2 COVID-19 2020-04-12 Completed Unive rsity of PFIZER VACCINE 00:00:00 [facility] SARS-COV-2 COVID-19 2020-04-12 Completed Unive rsity of PFIZER VACCINE 00:00:00 [facility] SARS-COV-2 COVID-19 2020-04-12 Completed Unive rsity of PFIZER VACCINE 00:00:00 [facility] [place] [facility] SARS-COV-2 COVID-19 2020-04-12 Completed Unive rsity of PFIZER VACCINE 00:00:00 [facility] SARS-COV-2 COVID-19 2020-04-12 Completed Unive rsity of PFIZER VACCINE 00:00:00 [facility] SARS-COV-2 COVID-19 2020-04-12 Completed Unive rsity of PFIZER VACCINE 00:00:00 [facility] SARS-COV-2 COVID-19 2020-04-12 Completed Unive rsity of PFIZER VACCINE 00:00:00 [facility] SARS-COV-2 COVID-19 2020-04-12 Completed Unive rsity of PFIZER VACCINE 00:00:00 [facility] SARS-COV-2 COVID-19 2020-04-12 Completed Unive rsity of PFIZER VACCINE 00:00:00 [facility] SARS-COV-2 COVID-19 2020-03-15 Completed Unive rsity of PFIZER VACCINE 00:00:00 [facility] SARS-COV-2 COVID-19 2020-03-15 Completed Unive rsity of PFIZER VACCINE 00:00:00 [facility] SARS-COV-2 COVID-19 2020-03-15 Completed Unive rsity of PFIZER VACCINE 00:00:00 [facility] SARS-COV-2 COVID-19 2020-03-15 Completed Unive rsity of PFIZER VACCINE 00:00:00 [facility] SARS-COV-2 COVID-19 2020-03-15 Completed Unive rsity of PFIZER VACCINE 00:00:00 [facility] SARS-COV-2 COVID-19 2020-03-15 Completed Unive rsity of PFIZER VACCINE 00:00:00 [facility] SARS-COV-2 COVID-19 2020-03-15 Completed Unive rsity of PFIZER VACCINE 00:00:00 [facility] SARS-COV-2 COVID-19 2020-03-15 Completed Unive rsity of PFIZER VACCINE 00:00:00 [facility] SARS-COV-2 COVID-19 2020-03-15 Completed Unive rsity of PFIZER VACCINE 00:00:00 [facility] SARS-COV-2 COVID-19 2020-03-15 Completed Unive rsity of PFIZER VACCINE 00:00:00 [facility] SARS-COV-2 COVID-19 2020-03-15 Completed Unive rsity of PFIZER VACCINE 00:00:00 [facility] SARS-COV-2 COVID-19 2020-03-15 Completed Unive rsity of PFIZER VACCINE 00:00:00 [facility] SARS-COV-2 COVID-19 2020-03-15 Completed Unive rsity of PFIZER VACCINE 00:00:00 [facility] SARS-COV-2 COVID-19 2020-03-15 Completed Unive rsity of PFIZER VACCINE 00:00:00 [facility] SARS-COV-2 COVID-19 2020-03-15 Completed Unive rsity of PFIZER VACCINE 00:00:00 [facility] Zoster Vaccine 2018-11-13 Completed University of Recombinant 00:00:00 [facility] Zoster Vaccine 2018-11-13 Completed University of Recombinant 00:00:00 [facility] Zoster Vaccine 2018-11-13 Completed University of Recombinant 00:00:00 [facility] Zoster Vaccine 2018-11-13 Completed University of Recombinant 00:00:00 [facility] Zoster Vaccine 2018-11-13 Completed University of Recombinant 00:00:00 [facility] Zoster Vaccine 2018-11-13 Completed University of Recombinant 00:00:00 [facility] Zoster Vaccine 2018-11-13 Completed University of Recombinant 00:00:00 [facility] Zoster Vaccine 2018-11-13 Completed University of Recombinant 00:00:00 [facility] Zoster Vaccine 2018-11-13 Completed University of Recombinant 00:00:00 [facility] Zoster Vaccine 2018-11-13 Completed University of Recombinant 00:00:00 [facility] Zoster Vaccine 2018-11-13 Completed University of Recombinant 00:00:00 [facility] Zoster Vaccine 2018-11-13 Completed University of Recombinant 00:00:00 [facility] Zoster Vaccine 2018-11-13 Completed University of Recombinant 00:00:00 [facility] Zoster Vaccine 2018-11-13 Completed University of Recombinant 00:00:00 [facility] Zoster Vaccine 2018-11-13 Completed University of Recombinant 00:00:00 [facility] Zoster Vaccine 2018-11-13 Completed University of Recombinant 00:00:00 [facility] Zoster Vaccine 2018-11-13 Completed University of Recombinant 00:00:00 [facility] Zoster Vaccine 2018-11-13 Completed University of Recombinant 00:00:00 [facility] Zoster Vaccine 2018-11-13 Completed University of Recombinant 00:00:00 [facility] Zoster Vaccine 2018-11-13 Completed University of Recombinant 00:00:00 [facility] Zoster Vaccine 2018-11-13 Completed University of Recombinant 00:00:00 [facility] Zoster Vaccine 2018-11-13 Completed University of Recombinant 00:00:00 [facility] Zoster Vaccine 2018-11-13 Completed University of Recombinant 00:00:00 [facility] Zoster Vaccine 2018-11-13 Completed University of Recombinant 00:00:00 [facility] Zoster Vaccine 2018-11-13 Completed University of Recombinant 00:00:00 [facility] Zoster Vaccine 2018-11-13 Completed University of Recombinant 00:00:00 [facility] Zoster Vaccine 2018-11-13 Completed University of Recombinant 00:00:00 [facility] Zoster Vaccine 2018-11-13 Completed University of Recombinant 00:00:00 [facility] Zoster Vaccine 2018-11-13 Completed University of Recombinant 00:00:00 [facility] Zoster Vaccine 2018-11-13 Completed University of Recombinant 00:00:00 [facility] Zoster Vaccine 2018-11-13 Completed University of Recombinant 00:00:00 [facility] Influenza Virus 2018-11-10 Completed Universit y of Vaccine 00:00:00 [facility] Influenza Virus 2018-11-10 Completed Universit y of Vaccine 00:00:00 [facility] Influenza Virus 2018-11-10 Completed Universit y of Vaccine 00:00:00 [facility] Influenza Virus 2018-11-10 Completed Universit y of Vaccine 00:00:00 [facility] Influenza Virus 2018-11-10 Completed Universit y of Vaccine 00:00:00 [facility] Influenza Virus 2018-11-10 Completed Universit y of Vaccine 00:00:00 [facility] Influenza Virus 2018-11-10 Completed Universit y of Vaccine 00:00:00 [facility] Influenza Virus 2018-11-10 Completed Universit y of Vaccine 00:00:00 [facility] Influenza Virus 2018-11-10 Completed Universit y of Vaccine 00:00:00 [facility] Influenza Virus 2018-11-10 Completed Universit y of Vaccine 00:00:00 [facility] Influenza Virus 2018-11-10 Completed Universit y of Vaccine 00:00:00 [facility] Influenza Virus 2018-11-10 Completed Universit y of Vaccine 00:00:00 [facility] Influenza Virus 2018-11-10 Completed Universit y of Vaccine 00:00:00 [facility] Influenza Virus 2018-11-10 Completed Universit y of Vaccine 00:00:00 [facility] Influenza Virus 2018-11-10 Completed Universit y of Vaccine 00:00:00 [facility] Influenza Virus 2018-11-10 Completed Universit y of Vaccine 00:00:00 [facility] Influenza Virus 2018-11-10 Completed Universit y of Vaccine 00:00:00 [facility] Influenza Virus 2018-11-10 Completed Universit y of Vaccine 00:00:00 [facility] Influenza Virus 2018-11-10 Completed Universit y of Vaccine 00:00:00 [facility] Influenza Virus 2018-11-10 Completed Universit y of Vaccine 00:00:00 [facility] Influenza Virus 2018-11-10 Completed Universit y of Vaccine 00:00:00 [facility] Influenza Virus 2018-11-10 Completed Universit y of Vaccine 00:00:00 [facility] Influenza Virus 2018-11-10 Completed Universit y of Vaccine 00:00:00 [facility] Influenza Virus 2018-11-10 Completed Universit y of Vaccine 00:00:00 [facility] Influenza Virus 2018-11-10 Completed Universit y of Vaccine 00:00:00 [facility] Influenza Virus 2018-11-10 Completed Universit y of Vaccine 00:00:00 [facility] Influenza Virus 2018-11-10 Completed Universit y of Vaccine 00:00:00 [facility] Influenza Virus 2018-11-10 Completed Universit y of Vaccine 00:00:00 [facility] Influenza Virus 2018-11-10 Completed Universit y of Vaccine 00:00:00 [facility] Influenza Virus 2018-11-10 Completed Universit y of Vaccine 00:00:00 [facility] Influenza Virus 2018-11-10 Completed Universit y of Vaccine 00:00:00 [facility] Zoster Vaccine 2018-09-12 Completed University of Recombinant 00:00:00 [facility] Zoster Vaccine 2018-09-12 Completed University of Recombinant 00:00:00 [facility] Zoster Vaccine 2018-09-12 Completed University of Recombinant 00:00:00 [facility] Zoster Vaccine 2018-09-12 Completed University of Recombinant 00:00:00 [facility] Zoster Vaccine 2018-09-12 Completed University of Recombinant 00:00:00 [facility] Zoster Vaccine 2018-09-12 Completed University of Recombinant 00:00:00 [facility] Zoster Vaccine 2018-09-12 Completed University of Recombinant 00:00:00 [facility] Zoster Vaccine 2018-09-12 Completed University of Recombinant 00:00:00 [facility] Zoster Vaccine 2018-09-12 Completed University of Recombinant 00:00:00 [facility] Zoster Vaccine 2018-09-12 Completed University of Recombinant 00:00:00 [facility] Zoster Vaccine 2018-09-12 Completed University of Recombinant 00:00:00 [facility] Zoster Vaccine 2018-09-12 Completed University of Recombinant 00:00:00 [facility] Zoster Vaccine 2018-09-12 Completed University of Recombinant 00:00:00 [facility] Zoster Vaccine 2018-09-12 Completed [facility] Recombinant 00:00:00 [facility] Zoster Vaccine 2018-09-12 Completed [facility] Recombinant 00:00:00 [facility] Zoster Vaccine 2018-09-12 Completed [facility] Recombinant 00:00:00 [facility] Zoster Vaccine 2018-09-12 Completed [facility] Recombinant 00:00:00 [facility] Zoster Vaccine 2018-09-12 Completed [facility] Recombinant 00:00:00 [facility] Zoster Vaccine 2018-09-12 Completed [facility] Recombinant 00:00:00 [facility] Zoster Vaccine 2018-09-12 Completed [facility] Recombinant 00:00:00 [facility] Zoster Vaccine 2018-09-12 Completed [facility] Recombinant 00:00:00 [facility] Zoster Vaccine 2018-09-12 Completed [facility] Recombinant 00:00:00 [facility] Zoster Vaccine 2018-09-12 Completed [facility] Recombinant 00:00:00 [facility] Zoster Vaccine 2018-09-12 Completed [facility] Recombinant 00:00:00 [facility] Zoster Vaccine 2018-09-12 Completed [facility] Recombinant 00:00:00 [facility] Zoster Vaccine 2018-09-12 Completed [facility] Recombinant 00:00:00 [facility] Zoster Vaccine 2018-09-12 Completed [facility] Recombinant 00:00:00 [facility] Zoster Vaccine 2018-09-12 Completed [facility] Recombinant 00:00:00 [facility] Zoster Vaccine 2018-09-12 Completed [facility] Recombinant 00:00:00 [facility] Zoster Vaccine 2018-09-12 Completed [facility] Recombinant 00:00:00 [facility] Zoster Vaccine 2018-09-12 Completed [facility] Recombinant 00:00:00 [facility] Influenza Virus 2017-10-28 Completed Universit y of Vaccine - Whole 00:00:00 [facility] Influenza Virus 2017-10-28 Completed [facility]it y of Vaccine - Whole 00:00:00 [facility] Influenza Virus 2017-10-28 Completed [facility]it y of Vaccine - Whole 00:00:00 [facility] Influenza Virus 2017-10-28 Completed [facility] y of Vaccine - Whole 00:00:00 [facility] Influenza Virus 2017-10-28 Completed [facility] y of Vaccine - Whole 00:00:00 [facility] Influenza Virus 2017-10-28 Completed [facility] y of Vaccine - Whole 00:00:00 [facility] Influenza Virus 2017-10-28 Completed [facility] y of Vaccine - Whole 00:00:00 [facility] Influenza Virus 2017-10-28 Completed [facility] y of Vaccine - Whole 00:00:00 [facility] Influenza Virus 2017-10-28 Completed [facility] y of Vaccine - Whole 00:00:00 [facility] Influenza Virus 2017-10-28 Completed [facility] y of Vaccine - Whole 00:00:00 [facility] Influenza Virus 2017-10-28 Completed [facility] y of Vaccine - Whole 00:00:00 [facility] Influenza Virus 2017-10-28 Completed [facility] y of Vaccine - Whole 00:00:00 [facility] Influenza Virus 2017-10-28 Completed [facility] y of Vaccine - Whole 00:00:00 [facility] Influenza Virus 2017-10-28 Completed [facility] of Vaccine - Whole 00:00:00 [facility] Influenza Virus 2017-10-28 Completed [facility] y of Vaccine - Whole 00:00:00 [facility] Influenza Virus 2017-10-28 Completed [facility] y of Vaccine - Whole 00:00:00 [facility] Influenza Virus 2017-10-28 Completed [facility] y of Vaccine - Whole 00:00:00 [facility] Influenza Virus 2017-10-28 Completed [facility] y of Vaccine - Whole 00:00:00 [facility] Influenza Virus 2017-10-28 Completed [facility] y of Vaccine - Whole 00:00:00 [facility] Influenza Virus 2017-10-28 Completed [facility] y of Vaccine - Whole 00:00:00 [facility] Influenza Virus 2017-10-28 Completed [facility] y of Vaccine - Whole 00:00:00 [facility] Influenza Virus 2017-10-28 Completed [facility] y of Vaccine - Whole 00:00:00 [facility] Influenza Virus 2017-10-28 Completed [facility] y of Vaccine - Whole 00:00:00 [facility] Influenza Virus 2017-10-28 Completed [facility] y of Vaccine - Whole 00:00:00 [facility] Influenza Virus 2017-10-28 Completed [facility] y of Vaccine - Whole 00:00:00 [facility] Influenza Virus 2017-10-28 Completed [facility] y of Vaccine - Whole 00:00:00 [facility] Influenza Virus 2017-10-28 Completed [facility] y of Vaccine - Whole 00:00:00 [facility] Influenza Virus 2017-10-28 Completed [facility] y of Vaccine - Whole 00:00:00 [facility] Influenza Virus 2017-10-28 Completed [facility] y of Vaccine - Whole 00:00:00 [facility] Influenza Virus 2017-10-28 Completed [facility] y of Vaccine - Whole 00:00:00 [facility] Influenza Virus 2017-10-28 Completed [facility] of Vaccine - Whole 00:00:00 [facility] Influenza Virus 2017-10-28 Completed [facility] of Vaccine - Whole 00:00:00 [facility] Influenza Virus 2017-10-28 Completed [facility] of Vaccine - Whole 00:00:00 [facility] Influenza Virus 2017-10-28 Completed [facility] of Vaccine - Whole 00:00:00 [facility] Influenza Virus 2017-10-28 Completed [facility] y of Vaccine - Whole 00:00:00 [facility] Influenza Virus 2017-10-28 Completed [facility] y of Vaccine - Whole 00:00:00 [facility] Influenza High Dose 2015-11-21 Completed Unive rsity of 00:00:00 [facility] Influenza High Dose 2015-11-21 Completed Unive rsity of 00:00:00 [facility] Influenza High Dose 2015-11-21 Completed Unive rsity of 00:00:00 [facility] Influenza High Dose 2015-11-21 Completed Unive rsity of 00:00:00 [facility] Influenza High Dose 2015-11-21 Completed Unive rsity of 00:00:00 [facility] Influenza High Dose 2015-11-21 Completed Unive rsity of 00:00:00 [facility] Influenza High Dose 2015-11-21 Completed Unive rsity of 00:00:00 [facility] Influenza High Dose 2015-11-21 Completed Unive rsity of 00:00:00 [facility] Influenza High Dose 2015-11-21 Completed Unive rsity of 00:00:00 [facility] Influenza High Dose 2015-11-21 Completed Unive rsity of 00:00:00 [facility] Influenza High Dose 2015-11-21 Completed Unive rsity of 00:00:00 [facility] Influenza High Dose 2015-11-21 Completed Unive rsity of 00:00:00 [facility] Influenza High Dose 2015-11-21 Completed Unive rsity of 00:00:00 [facility] Influenza High Dose 2015-11-21 Completed Unive rsity of 00:00:00 [facility] Influenza High Dose 2015-11-21 Completed Unive rsity of 00:00:00 [facility] Influenza High Dose 2015-11-21 Completed Unive rsity of 00:00:00 [facility] Influenza High Dose 2015-11-21 Completed Unive rsity of 00:00:00 [facility] Influenza High Dose 2015-11-21 Completed Unive rsity of 00:00:00 [facility] Influenza High Dose 2015-11-21 Completed Unive rsity of 00:00:00 [facility] Influenza High Dose 2015-11-21 Completed Unive rsity of 00:00:00 [facility] Influenza High Dose 2015-11-21 Completed Unive rsity of 00:00:00 [facility] Influenza High Dose 2015-11-21 Completed Unive rsity of 00:00:00 [facility] Influenza High Dose 2015-11-21 Completed Unive rsity of 00:00:00 [facility] Influenza High Dose 2015-11-21 Completed Unive rsity of 00:00:00 [facility] Influenza High Dose 2015-11-21 Completed Unive rsity of 00:00:00 [facility] Influenza High Dose 2015-11-21 Completed Unive rsity of 00:00:00 [facility] Influenza High Dose 2015-11-21 Completed Unive rsity of 00:00:00 [facility] Influenza High Dose 2015-11-21 Completed Unive rsity of 00:00:00 [facility] Influenza High Dose 2015-11-21 Completed Unive rsity of 00:00:00 [facility] Influenza High Dose 2015-11-21 Completed Unive rsity of 00:00:00 [facility] Influenza High Dose 2015-11-21 Completed Unive rsity of 00:00:00 [facility] Influenza High Dose 2015-11-21 Completed Unive rsity of 00:00:00 [facility] Influenza High Dose 2015-11-21 Completed Unive rsity of 00:00:00 [facility] Influenza High Dose 2015-11-21 Completed Unive rsity of 00:00:00 [facility] Influenza High Dose 2015-11-21 Completed Unive rsity of 00:00:00 [facility] Influenza High Dose 2015-11-21 Completed Unive rsity of 00:00:00 [facility] Pneumococcal 2014-05-31 Completed University o f Polysaccharide, [...] Dose 2013-11-09 Completed Unive rsity of 00:00:00 [facility] Influenza High Dose 2013-11-09 Completed Unive rsity of 00:00:00 [facility] Influenza High Dose 2013-11-09 Completed Unive rsity of 00:00:00 [facility] Influenza High Dose 2013-11-09 Completed Unive rsity of 00:00:00 [facility] Influenza High Dose 2013-11-09 Completed Unive rsity of 00:00:00 [facility] Influenza High Dose 2013-11-09 Completed Unive rsity of 00:00:00 [facility] Influenza High Dose 2013-11-09 Completed Unive rsity of 00:00:00 [facility] Influenza High Dose 2013-11-09 Completed Unive rsity of 00:00:00 [facility] Influenza High Dose 2013-11-09 Completed Unive rsity of 00:00:00 [facility] Influenza High Dose 2013-11-09 Completed Unive rsity of 00:00:00 [facility] Influenza High Dose 2013-11-09 Completed Unive rsity of 00:00:00 [facility] Influenza High Dose 2013-11-09 Completed Unive rsity of 00:00:00 [facility] Influenza High Dose 2013-11-09 Completed Unive rsity of 00:00:00 [facility] Influenza High Dose 2013-11-09 Completed Unive rsity of 00:00:00 [facility] Influenza High Dose 2013-11-09 Completed Unive rsity of 00:00:00 [facility] Influenza High Dose 2013-11-09 Completed Unive rsity of 00:00:00 [facility] Influenza High Dose 2013-11-09 Completed Unive rsity of 00:00:00 [facility] Influenza High Dose 2013-11-09 Completed Unive rsity of 00:00:00 [facility] Influenza High Dose 2013-11-09 Completed Unive rsity of 00:00:00 [facility] Influenza High Dose 2013-11-09 Completed Unive rsity of 00:00:00 [facility] Influenza High Dose 2013-11-09 Completed Unive rsity of 00:00:00 [facility] Influenza High Dose 2013-11-09 Completed Unive rsity of 00:00:00 [facility] Influenza High Dose 2013-11-09 Completed Unive rsity of 00:00:00 [facility] Influenza High Dose 2013-11-09 Completed Unive rsity of 00:00:00 [facility] Influenza High Dose 2013-11-09 Completed Unive rsity of 00:00:00 [facility] Influenza High Dose 2013-11-09 Completed Unive rsity of 00:00:00 [facility] Influenza High Dose 2013-11-09 Completed Unive rsity of 00:00:00 [facility] Influenza High Dose 2013-11-09 Completed Unive rsity of 00:00:00 [facility] Influenza High Dose 2013-11-09 Completed Unive rsity of 00:00:00 [facility] Influenza High Dose 2013-11-09 Completed Unive rsity of 00:00:00 [facility] Influenza High Dose 2013-11-09 Completed Unive rsity of 00:00:00 [facility] Influenza High Dose 2013-11-09 Completed Unive rsity of 00:00:00 [facility] Influenza High Dose 2013-11-09 Completed Unive rsity of 00:00:00 [facility] Influenza High Dose 2013-11-09 Completed Unive rsity of 00:00:00 [facility] Influenza High Dose 2013-11-09 Completed Unive rsity of 00:00:00 [facility] Influenza High Dose 2013-11-09 Completed Unive rsity of 00:00:00 [facility] Pneumococcal 7 2012-11-29 Completed [facility] of Conjugate, [...] 2012-11-29 Completed [facility] of Conjugate, PCV7 00:00:00 [place] [facility] (Prevnar7) [facility] TD 2012-01-10 Completed [facility] 00:00:00 [facility] 2012-01-10 Completed [facility] of 00:00:00 [facility] Zoster(Zostavax)( 2012-01-10 Completed Unive rsity of ingles) 00:00:00 [facility] 2012-01-10 Completed [facility] of 00:00:00 [facility] Zoster(Zostavax)( 2012-01-10 Completed Unive rsity of ingles) 00:00:00 [facility] Zoster(Zostavax)( 2012-01-10 Completed Unive rsity of ingles) 00:00:00 [facility] 2012-01-10 Completed [facility] of 00:00:00 [facility] Zoster(Zostavax)( 2012-01-10 Completed Unive rsity of ingles) 00:00:00 [facility] 2012-01-10 Completed [facility] of 00:00:00 [facility] Zoster(Zostavax)( 2012-01-10 Completed Unive rsity of ingles) 00:00:00 [facility] 2012-01-10 Completed [facility] of 00:00:00 [facility] Zoster(Zostavax)( 2012-01-10 Completed Unive rsity of ingles) 00:00:00 [facility] 2012-01-10 Completed [facility] of 00:00:00 [facility] Zoster(Zostavax)( 2012-01-10 Completed Unive rsity of ingles) 00:00:00 [facility] 2012-01-10 Completed [facility] of 00:00:00 [facility] Zoster(Zostavax)( 2012-01-10 Completed Unive rsity of ingles) 00:00:00 [facility] 2012-01-10 Completed [facility] of 00:00:00 [facility] Zoster(Zostavax)( 2012-01-10 Completed Unive rsity of ingles) 00:00:00 [facility] 2012-01-10 Completed [facility] of 00:00:00 [facility] Zoster(Zostavax)( 2012-01-10 Completed Unive rsity of ingles) 00:00:00 [facility] 2012-01-10 Completed [facility] of 00:00:00 [facility] Zoster(Zostavax)( 2012-01-10 Completed Unive rsity of ingles) 00:00:00 [facility] 2012-01-10 Completed [facility] of 00:00:00 [facility] Zoster(Zostavax)( 2012-01-10 Completed Unive rsity of ingles) 00:00:00 [facility] 2012-01-10 Completed [facility] of 00:00:00 [facility] 2012-01-10 Completed [facility] of 00:00:00 [facility] Zoster(Zostavax)( 2012-01-10 Completed Unive rsity of ingles) 00:00:00 [facility] Zoster(Zostavax)( 2012-01-10 Completed Unive rsity of ingles) 00:00:00 [facility] 2012-01-10 Completed [facility] of 00:00:00 [facility] Zoster(Zostavax)( 2012-01-10 Completed Unive rsity of ingles) 00:00:00 [facility] 2012-01-10 Completed [facility] of 00:00:00 [facility] Zoster(Zostavax)( 2012-01-10 Completed Unive rsity of ingles) 00:00:00 [facility] 2012-01-10 Completed University of 00:00:00 [facility] Zoster(Zostavax)( 2012-01-10 Completed Unive rsity of ingles) 00:00:00 [facility] 2012-01-10 Completed [facility] of 00:00:00 [facility] Zoster(Zostavax)( 2012-01-10 Completed Unive rsity of ingles) 00:00:00 [facility] 2012-01-10 Completed [facility] of 00:00:00 [facility] Zoster(Zostavax)( 2012-01-10 Completed Unive rsity of ingles) 00:00:00 [facility] 2012-01-10 Completed [facility] of 00:00:00 [facility] Zoster(Zostavax)( 2012-01-10 Completed Unive rsity of ingles) 00:00:00 [facility] 2012-01-10 Completed [facility] of 00:00:00 [facility] Zoster(Zostavax)( 2012-01-10 Completed Unive rsity of ingles) 00:00:00 [facility] 2012-01-10 Completed [facility] of 00:00:00 [facility] Zoster(Zostavax)( 2012-01-10 Completed Unive rsity of ingles) 00:00:00 [facility] 2012-01-10 Completed [facility] of 00:00:00 [facility] Zoster(Zostavax)( 2012-01-10 Completed Unive rsity of ingles) 00:00:00 [facility] 2012-01-10 Completed [facility] of 00:00:00 [facility] Zoster(Zostavax)( 2012-01-10 Completed Unive rsity of ingles) 00:00:00 [facility] 2012-01-10 Completed [facility] of 00:00:00 [facility] 2012-01-10 Completed [facility] of 00:00:00 [facility] Zoster(Zostavax)( 2012-01-10 Completed Unive rsity of ingles) 00:00:00 [facility] Zoster(Zostavax)( 2012-01-10 Completed Unive rsity of ingles) 00:00:00 [facility] 2012-01-10 Completed [facility] of 00:00:00 [facility] Zoster(Zostavax)( 2012-01-10 Completed Unive rsity of ingles) 00:00:00 [facility] 2012-01-10 Completed [facility] of 00:00:00 [facility] Zoster(Zostavax)( 2012-01-10 Completed Unive rsity of ingles) 00:00:00 [facility] 2012-01-10 Completed [facility] of 00:00:00 [facility] Zoster(Zostavax)( 2012-01-10 Completed Unive rsity of ingles) 00:00:00 [facility] 2012-[facility]-10 Completed [facility] of 00:00:00 [facility] Zoster(Zostavax)( 2012-01-10 Completed Unive rsity of ingles) 00:00:00 [facility] 2012-01-10 Completed [facility] of 00:00:00 [facility] Zoster(Zostavax)( 2012-01-10 Completed Unive rsity of ingles) 00:00:00 [facility] 2012-01-10 Completed [facility] of 00:00:00 [facility] Zoster(Zostavax)( 2012-01-10 Completed Unive rsity of ingles) 00:00:00 [facility] 2012-01-10 Completed University of 00:00:00 [facility] Zoster(Zostavax)( 2012-01-10 Completed Unive rsity of ingles) 00:00:00 [facility] 2012-01-10 Completed University of 00:00:00 [facility] Zoster(Zostavax)( 2012-01-10 Completed Unive rsity of ingles) 00:00:00 [facility] 2012-01-10 Completed [facility] of 00:00:00 [facility] Zoster(Zostavax)( 2012-01-10 Completed Unive rsity of ingles) 00:00:00 [facility] 2012-01-10 Completed [facility] of 00:00:00 [facility] Zoster(Zostavax)( 2012-01-10 Completed Unive rsity of ingles) 00:00:00 [facility] Influenza Virus 2011-12-16 Completed Universit y of Vaccine 00:00:00 [facility] Influenza Virus 2011-12-16 Completed Universit y of Vaccine 00:00:00 [facility] Influenza Virus 2011-12-16 Completed Universit y of Vaccine 00:00:00 [facility] Influenza Virus 2011-12-16 Completed Universit y of Vaccine 00:00:00 [facility] Influenza Virus 2011-12-16 Completed Universit y of Vaccine 00:00:00 [facility] Influenza Virus 2011-12-16 Completed Universit y of Vaccine 00:00:00 [facility] Influenza Virus 2011-12-16 Completed Universit y of Vaccine 00:00:00 [facility] Influenza Virus 2011-12-16 Completed [facility]it y of Vaccine 00:00:00 [facility] Influenza Virus 2011-12-16 Completed [facility]it y of Vaccine 00:00:00 [facility] Influenza Virus 2011-12-16 Completed [facility]it y of Vaccine 00:00:00 [facility] Influenza Virus 2011-12-16 Completed [facility]it y of Vaccine 00:00:00 [facility] Influenza Virus 2011-12-16 Completed [facility]it y of Vaccine 00:00:00 [facility] Influenza Virus 2011-12-16 Completed [facility]it y of Vaccine 00:00:00 [facility] Influenza Virus 2011-12-16 Completed Universit y of Vaccine 00:00:00 [facility] Influenza Virus 2011-12-16 Completed [facility]it y of Vaccine 00:00:00 [facility] Influenza Virus 2011-12-16 Completed [facility]it y of Vaccine 00:00:00 [facility] Influenza Virus 2011-12-16 Completed [facility]it y of Vaccine 00:00:00 [facility] Influenza Virus 2011-12-16 Completed [facility]it y of Vaccine 00:00:00 [facility] Influenza Virus 2011-12-16 Completed [facility]it y of Vaccine 00:00:00 [facility] Influenza Virus 2011-12-16 Completed [facility]it y of Vaccine 00:00:00 [facility] Influenza Virus 2011-12-16 Completed Universit y of Vaccine 00:00:00 [facility] Influenza Virus 2011-12-16 Completed Universit y of Vaccine 00:00:00 [facility] Influenza Virus 2011-12-16 Completed Universit y of Vaccine 00:00:00 [facility] Influenza Virus 2011-12-16 Completed [facility]it y of Vaccine 00:00:00 [facility] Influenza Virus 2011-12-16 Completed Universit y of Vaccine 00:00:00 [facility] Influenza Virus 2011-12-16 Completed [facility]it y of Vaccine 00:00:00 [facility] Influenza Virus 2011-12-16 Completed [facility]it y of Vaccine 00:00:00 [facility] Influenza Virus 2011-12-16 Completed [facility]it y of Vaccine 00:00:00 [facility] Influenza Virus 2011-12-16 Completed [facility]it y of Vaccine 00:00:00 [facility] Influenza Virus 2011-12-16 Completed [facility]it y of Vaccine 00:00:00 [facility] Influenza Virus 2011-12-16 Completed [facility]it y of Vaccine 00:00:00 [facility] Influenza Virus 2011-12-16 Completed [facility]it y of Vaccine 00:00:00 [facility] Influenza Virus 2011-12-16 Completed [facility]it y of Vaccine 00:00:00 [facility] Influenza Virus 2011-12-16 Completed [facility]it y of Vaccine 00:00:00 [facility] Influenza Virus 2011-12-16 Completed [facility]it y of Vaccine 00:00:00 [facility] Influenza Virus 2011-12-16 Completed [facility]it y of Vaccine 00:00:00 [facility] Influenza Virus 2008-11-18 Completed [facility]it y of Vaccine 00:00:00 [facility] Influenza Virus 2008-11-18 Completed [facility]it y of Vaccine 00:00:00 [facility] Influenza Virus 2008-11-18 Completed [facility]it y of Vaccine 00:00:00 [facility] Influenza Virus 2008-11-18 Completed [facility]it y of Vaccine 00:00:00 [facility] Influenza Virus 2008-11-18 Completed [facility]it y of Vaccine 00:00:00 [facility] Influenza Virus 2008-11-18 Completed Universit y of Vaccine 00:00:00 [facility] Influenza Virus 2008-11-18 Completed Universit y of Vaccine 00:00:00 [facility] Influenza Virus 2008-11-18 Completed Universit y of Vaccine 00:00:00 [facility] Influenza Virus 2008-11-18 Completed Universit y of Vaccine 00:00:00 [facility] Influenza Virus 2008-11-18 Completed Universit y of Vaccine 00:00:00 [facility] Influenza Virus 2008-11-18 Completed Universit y of Vaccine 00:00:00 [facility] Influenza Virus 2008-11-18 Completed Universit y of Vaccine 00:00:00 [facility] Influenza Virus 2008-11-18 Completed Universit y of Vaccine 00:00:00 [facility] Influenza Virus 2008-11-18 Completed Universit y of Vaccine 00:00:00 [facility] Influenza Virus 2008-11-18 Completed Universit y of Vaccine 00:00:00 [facility] Influenza Virus 2008-11-18 Completed Universit y of Vaccine 00:00:00 [facility] Influenza Virus 2008-11-18 Completed Universit y of Vaccine 00:00:00 [facility] Influenza Virus 2008-11-18 Completed Universit y of Vaccine 00:00:00 [facility] Influenza Virus 2008-11-18 Completed Universit y of Vaccine 00:00:00 [facility] Influenza Virus 2008-11-18 Completed Universit y of Vaccine 00:00:00 [facility] Influenza Virus 2008-11-18 Completed Universit y of Vaccine 00:00:00 [facility] Influenza Virus 2008-11-18 Completed Universit y of Vaccine 00:00:00 [facility] Influenza Virus 2008-11-18 Completed Universit y of Vaccine 00:00:00 [facility] Influenza Virus 2008-11-18 Completed Universit y of Vaccine 00:00:00 [facility] Influenza Virus 2008-11-18 Completed Universit y of Vaccine 00:00:00 [facility] Influenza Virus 2008-11-18 Completed Universit y of Vaccine 00:00:00 [facility] Influenza Virus 2008-11-18 Completed Universit y of Vaccine 00:00:00 [facility] Influenza Virus 2008-11-18 Completed Universit y of Vaccine 00:00:00 [facility] Influenza Virus 2008-11-18 Completed Universit y of Vaccine 00:00:00 [facility] Influenza Virus 2008-11-18 Completed Universit y of Vaccine 00:00:00 [facility] Influenza Virus 2008-11-18 Completed Universit y of Vaccine 00:00:00 [facility] Influenza Virus 2008-11-18 Completed Universit y of Vaccine 00:00:00 [facility] Influenza Virus 2008-11-18 Completed Universit y of Vaccine 00:00:00 [facility] Influenza Virus 2008-11-18 Completed Universit y of Vaccine 00:00:00 [facility] Influenza Virus 2008-11-18 Completed Universit y of Vaccine 00:00:00 [facility] Influenza Virus 2008-11-18 Completed Universit y of Vaccine 00:00:00 [facility] Pneumococcal 7 2007-03-13 Completed University [...] 2007-03-13 Completed University of Conjugate, PCV7 00:00:00 [facility] [place] [facility] (Prevnar7) [facility] Pneumococcal 7 2007-03-13 Completed University of Conjugate, PCV7 00:00:00 [facility] (Prevnar7) [facility] Vital Signs Vital Name Observation Time Observation Value Comments Source Systolic blood 2020-11-27 15:26:00 138 mm[Hg] Univer sity of pressure [facility] Diastolic blood 2020-11-27 15:26:00 73 mm[Hg] Unive rsity of pressure [facility] Heart rate 2020-11-27 15:26:00 66 /min Universi ty of [facility] Respiratory rate 2020-11-27 15:26:00 18 /min Univ ersity of [facility] Oxygen saturation in 2020-11-27 15:26:00 98 /min University of Arterial blood by [facility] charito Pulse oximetry Branch Body temperature 2020-11-27 15:11:00 36.11 Lena Univ ersity of [place] [facility] [place] Body weight 2020-11-14 15:22:00 74.8 kg Universi ty of [facility] [place] BMI 2020-11-14 15:22:00 33.31 kg/m2 Universi ty of [facility] Systolic blood 2020-11-27 15:26:00 138 mm[Hg] Univer sity of pressure [facility] Diastolic blood 2020-11-27 15:26:00 73 mm[Hg] Unive rsity of pressure [facility] Heart rate 2020-11-27 15:26:00 66 /min Universi ty of [facility] Respiratory rate 2020-11-27 15:26:00 18 /min Univ ersity of [facility] Oxygen saturation in 2020-11-27 15:26:00 98 /min University of Arterial blood by [facility] charito Pulse oximetry Branch Body temperature 2020-11-27 15:11:00 36.11 Lena Univ ersity of [facility] Body weight 2020-11-14 15:22:00 74.8 kg Universi ty of [facility] BMI 2020-11-14 15:22:00 33.31 kg/m2 Universi ty of [facility] Systolic blood 2020-10-23 14:43:00 150 mm[Hg] Univer sity of pressure [facility] Diastolic blood 2020-10-23 14:43:00 66 mm[Hg] Unive rsity of pressure [facility] Heart rate 2020-10-23 14:43:00 68 /min Universi ty of [facility] Oxygen saturation in 2020-10-23 14:43:00 98 /min University of Arterial blood by [facility] charito Pulse oximetry Branch Respiratory rate 2020-10-23 14:30:00 9 /min Univ ersity of [facility] Body temperature 2020-10-23 14:17:00 36.5 Lena Univ ersity of [facility] Body height 2020-10-21 16:49:00 149.9 cm Universi ty of [facility] Body weight 2020-10-21 16:49:00 74.844 kg Universi ty of [facility] BMI 2020-10-21 16:49:00 33.33 kg/m2 Universi ty of [facility] Systolic blood 2020-10-23 14:43:00 150 mm[Hg] Univer sity of pressure [facility] Diastolic blood 2020-10-23 14:43:00 66 mm[Hg] Unive rsity of pressure [facility] Heart rate 2020-10-23 14:43:00 68 /min Universi ty of [facility] Oxygen saturation in 2020-10-23 14:43:00 98 /min University of Arterial blood by [facility] charito Pulse oximetry Branch Respiratory rate 2020-10-23 14:30:00 9 /min Univ ersity of [facility] Body temperature 2020-10-23 14:17:00 36.5 Lena Univ ersity of [facility] Body height 2020-10-21 16:49:00 149.9 cm Universi ty of [facility] Body weight 2020-10-21 16:49:00 74.844 kg Universi ty of [facility] BMI 2020-10-21 16:49:00 33.33 kg/m2 Universi ty of [facility] Systolic blood 2019-08-10 17:19:00 113 mm[Hg] Univer sity of pressure [facility] Diastolic blood 2019-08-10 17:19:00 58 mm[Hg] Unive rsity of pressure [facility] Heart rate 2019-08-10 17:19:00 88 /min Universi ty of [facility] Body temperature 2019-08-10 17:19:00 36.28 Lena Univ ersity of [facility] Respiratory rate 2019-08-10 17:19:00 18 /min Univ ersity of [facility] Body weight 2019-08-10 17:19:00 75.751 kg Universi ty of [facility] BMI 2019-08-10 17:19:00 33.17 kg/m2 Universi ty of [facility] Oxygen saturation in 2019-08-10 17:19:00 96 /min University of Arterial blood by [facility] Pulse oximetry Branch Systolic blood 2019-08-10 17:19:00 113 mm[Hg] Univer sity of pressure [facility] Diastolic blood 2019-08-10 17:19:00 58 mm[Hg] Unive rsity of pressure [facility] Heart rate 2019-08-10 17:19:00 88 /min Universi ty of [facility] Body temperature 2019-08-10 17:19:00 36.28 Lena Univ ersity of [facility] Respiratory rate 2019-08-10 17:19:00 18 /min Univ ersity of [facility] Body weight 2019-08-10 17:19:00 75.751 kg Universi ty of [facility] BMI 2019-08-10 17:19:00 33.17 kg/m2 Universi ty of [facility] Oxygen saturation in 2019-08-10 17:19:00 96 /min University of Arterial blood by [facility] Pulse oximetry Branch Systolic blood 2019-04-20 16:06:00 123 mm[Hg] Univer sity of pressure [facility] Diastolic blood 2019-04-20 16:06:00 75 mm[Hg] Unive rsity of pressure [facility] Heart rate 2019-04-20 16:06:00 83 /min Universi ty of [facility] Body temperature 2019-04-20 16:06:00 35.83 Lena Univ ersity of [facility] Respiratory rate 2019-04-20 16:06:00 20 /min Univ ersity of [facility] Body weight 2019-04-20 16:06:00 75.161 kg Universi ty of [facility] BMI 2019-04-20 16:06:00 32.91 kg/m2 Universi ty of [facility] Oxygen saturation in 2019-04-20 16:06:00 98 /min University of Arterial blood by [facility] Pulse oximetry Branch Procedures Procedure Date / Time Performing Source Performed Clinician PHACOEMULSIFICATION OF 2020-11-27 Edyta [facility] CATARACT WITH INTRAOCULAR 14:38:00 Jamar Nicholson l [place] LENS IMPLANT POCT GLUCOSE (AUTOMATED) 2020-11-27 Edyta [facility] 12:52:00 [facility] POCT GLUCOSE (AUTOMATED) 2020-11-27 Edyta [facility] 12:52:00 [facility] COVID-19 (ID NOW RAPID [facility] 16:23:00 [facility] ASSIGNMENT OF BENEFITS 2020-11-25 Doctor Unassigned, [facility] 16:10:46 [facility] PHACOEMULSIFICATION OF 2020-10-23 Edyta [facility] CATARACT WITH INTRAOCULAR 13:42:00 Jamar Nicholson l [place] LENS IMPLANT POCT GLUCOSE(AGE >30DAYS) 2020-10-23 Hortensia Wu [facility] 12:00:00 Medical [place] POCT GLUCOSE(AGE >30DAYS) 2020-10-23 Hortensia Wu [facility] 12:00:00 Medical [place] POCT GLUCOSE (AUTOMATED) 2020-10-23 Edyta [facility] 11:59:00 [facility] POCT GLUCOSE (AUTOMATED) 2020-10-23 Edyta [facility] 11:59:00 [facility] CBC WITH DIFF 2020-10-16 Edyta [facility] xas 17:47:00 [facility] ASSIGNMENT OF BENEFITS 2020-10-16 Doctor Unassigned, [facility] 17:07:52 [facility] DME/SUPPLY JUSTIFICATION 2019-08-16 Doctor Unassigned, [facility] 05:01:00 [facility] POCT HEMOGLOBIN A[facility]C TEST [facility]:57[facility] ASSIGNMENT OF BENEFITS 2019-04-20 Doctor Unassigned, [facility] 15:34:46 [facility] REFERRAL- REQUEST/RESPONSE 2019-01-23 Doctor Unassgeorge, [facility] 06:01:00 [facility] Encounters Start End Encounter Admission Attending Care Care Encounter Source Date/Time Date/Time Type Type Clinicians Facility Department ID 2021-03-30 [facility] [id number] [facility] 08:52:01 [facility] 2021-03-26 Outpatient Gallo, [facility] [id number] [facility] 13:28:02 [facility] 2021-03-11 Outpatient Gallo, [facility] [id number] 14:40:07 [facility] 2021-03-11 Outpatient Gallo, [facility] [id number] 14:16:28 [facility] [id number] 2021-03-11 Outpatient Gallo, STLC [facility] [id number] 14:11:10 Roland [id number] [facility] 2021-03-11 [facility] [id number] 14:10:16 [facility] [id number] 2020-12-16 Outpatient R EDYTA [facility] OPH [id number] Univers 05:02:12 [facility] 2020-12-15 Outpatient EDYTA, [facility] OPH [id number] Univers 19:17:29 [facility] 2021-03-26 2021-03-26 [facility] [id number] [facility] 2021-03-25 2021-03-25 ambulatory [facility] [id number] [facility] 2021-03-19 2021-03-19 ambulatory [facility]ML[facility] [id number] [facility] 2021-03-18 2021-03-18 ambulatory [facility] [id number] [facility] 2021-03-13 2021-03-13 ambulatory [facility]LMLC [facility] [id number] [facility] 2021-03-10 2021-03-10 ambulatory [facility]LMLC [facility] [id number] [facility] 2021-03-09 2021-03-09 ambulatory [facility]LMLC [facility] [id number] [facility] 2021-01-23 2021-01-23 ambulatory [facility]LMLC [facility] [id number] [facility] 2020-12-24 2020-12-24 ambulatory [facility]LMLC [facility] [id number] [facility] 2020-12-22 2020-12-22 ambulatory [facility]LML[facility] [id number] [facility] 2020-11-27 2020-11-27 [facility] 1.2.840.114 [id number] Univers 07:37:00 10:50:00 Encounter Khoi Mancilla [id number] ity [place] [id number] [facility] 071 Branch 2020-11-27 2020-11-27 Surgery [facility] 1.2.840.114 [id number] Univers 09:51:00 10:28:00 Khoi Mancilla [id number] i ty of [place] [id number] [facility] 020 Branch 2020-11-25 2020-11-25 Outpatient R [facility] [id number] Univers 11:30:00 11:30:00 [id number] ity of [facility] 2020-11-25 2020-11-25 Outpatient R [facility] [id number] Univers 11:30:00 11:30:00 KHOI ity of [facility] 2020-11-25 2020-11-25 Laboratory Only, Adc Test [facility] 1.2.840. 114 [id number] Univers 11:13:10 11:28:10 Only Khoi Lan 350.1.1 3.10 ity [place] [id number] [facility] 353 Branch 2020-11-25 2020-11-25 Orders Doctor NAE 1.2.840.114 [id number] Univers 00:00:00 00:00:00 Only Unassigned, JESUS [id number] ity of [place] [facility] 4.2.7.2.686 Kyle as [phone] [facility] 009 Branch 2020-11-11 2020-11-[address] [facility] [place], [facility] 1.2.840.114 [id number] Univers 00:00:00 00:00:00 Zehra Mancilla 350.1.13.10 ity [place] [phone] N[place] dical [facility] 231 Branch Building 2020-10-23 2020-10-23 [facility] 1.2.840.114 [id number] Univers 06:56:00 10:08:00 Encounter Khoi Mancilla [id number] ity of [place] [id number] [facility] 071 Branch 2020-10-23 2020-10-23 Surgery [facility] 1.2.840.114 [id number] Univers 09:07:00 09:44:00 Khoi Mancilla 350.1.13.10 i ty of [place] [id number] [facility] 020 Branch 2020-10-21 2020-10-21 Laboratory Only, Adc Test [facility] 1.2.840. 114 [id number] Univers 11:48:01 12:03:01 Only Khoi Lan 350.1.1 3.10 ity of [place] [id number] [facility] 353 Branch 2020-10-21 2020-10-21 Outpatient R [facility] [id number] Univers 11:45:00 11:45:00 [id number] ity of [facility] 2020-10-21 2020-10-21 Outpatient R [facility] [id number] Univers 11:45:00 11:45:00 ity of [facility] 2020-10-16 2020-10-16 Outpatient R [facility] [id number] Univers 13:45:00 13:45:00 [id number] it[facility] 2020-10-16 2020-10-16 Outpatient R EDYTA [facility] [id number] Univers 13:45:00 13:45:00 KHOI [facility] 2020-10-16 2020-10-16 Assistant Boiler Operator Korin, Adc Lab Main [facility] 1.2.8 40.114 [id number] Univers 12:13:01 12:28:01 Visit Khoi Lan 350.1.1 3.10 ity [facility] 4[place].2.[place] [facility] [phone] Nv dical [address] 2020-10-16 2020-10-16 Orders Doctor NAE 1.2.840.114 [id number] Univers 00:00:00 00:00:00 Only Unassigned, JESUS 350.1.13.10 ity of [place] [facility] 4.2.7.2.686 Kyle as [phone] [facility] 009 Branch 2020-04-12 2020-04-12 Outpatient [facility] [id number] Univers 08:45:00 08:45:00 ity of [facility] 2020-04-05 2020-04-05 Outpatient [facility] [id number] Univers 08:45:00 08:45:00 ity of [facility] 2020-03-15 2020-03-15 Outpatient [facility] [id number] Univers 10:30:00 10:30:00 ity [facility] 2019-10-30 2019-10-30 Outpatient R LINDY [facility] [id number] Univers 10:20:00 10:20:00 ZEHRA [id number] ity [facility] 2019-10-08 2019-10-08 Outpatient R LINDY [facility] [id number] Univers 09:20:00 09:20:00 ZEHRA [id number] it[facility] 2019-09-29 2019-09-29 [facility] [place] 1.2.840.114 [id number] [facility] 00:00:00 00:00:00 Zehra A [place] 350.1.13.10 ity [place] [phone] [address] 2019-09-29 2019-09-29 [facility] [place] 1.2.840.114 [id number] 00:00:00 00:00:00 Zehra A [place] 350.1.13.10 [place] 4.2.7.2.686 Professio [phone] [address] 2019-09-08 2019-09-08 [facility] 1.2.840.114 [id number] [facility] 00:00:00 00:00:00 Zehra A [place] 350.1.13.10 ity [place] [phone] [address] 2019-09-08 2019-09-08 [facility] 1.2.840.114 [id number] 00:00:00 00:00:00 Zehra A [place] 350.1.13.10 [place] 4.2.7.2.686 Professio [phone] [address] 2019-08-16 2019-08-16 Orders Doctor NAE 1.2.840.114 [id number] Univers 00:00:00 00:00:00 Only Unassigned, JESUS 350.1.13.10 ity of [place] [facility] 4.2.7.2.686 Kyle as [phone] [address] 2019-08-16 2019-08-16 Orders Doctor NAE 1.2.840.114 [id number] 00:00:00 00:00:00 Only Unassigned, JESUS 350.1.13.10 [place] [facility] 4.2.7.2.686 [id number] [facility][note 3] 2019-08-10 2019-08-10 [facility] 1.2.840.114 [id number] [facility] 12:12:21 12:52:21 Visit Zehra Mancilla 350.1.13.10 ity [place] [phone] [address] 2019-08-10 2019-08-10 Office [facility] 1.2.840.114 [id number] 12:12:21 12:52:21 Visit Zehra Mancilla 350.1.13.10 [place] 4.2.7.2.686 Professio [phone] [address] 2019-08-10 2019-08-10 [id number] Univers 12:20:00 12:20:00 ZEHRA [id number] it[facility] 2019-08-10 2019-08-10 [id number] Univers 12:20:00 12:20:00 ZEHRA it[facility] 2019-08-07 2019-08-07 [facility] 1.2.840.114 [id number] Univers 00:00:00 00:00:00 Zehra Alvaradoton 350.1.13.10 ity of [place] [phone] [address] 2019-07-20 2019-07-20 [facility] 1.2.840.114 [id number] [facility] 00:00:00 00:00:00 Zehra A [place] 350.1.13.10 ity of [place] 4[place]2.7.2.[place] [phone] [address] 2019-07-19 2019-07-19 Telephone [facility] 1.2.840.114 [id number] Univers 00:00:00 00:00:00 Zehra A [place] 350.1.13.10 ity of [place] 4[place].2.[place] [phone] [address] 2019-07-16 2019-07-16 Refill [facility] 12.840.114 [id number] Univers 00:00:00 00:00:00 Zehra A [place] 350.1.13.10 ity of [place] 4[place].2.[place] [phone] [address] 2019-05-21 2019-05-21 [facility] [id number] Univers 00:00:00 00:00:00 ZEHRA [id number] ity of [facility] 2019-05-02 2019-05-02 [facility] 1.2.840.114 [id number] Univers 00:00:00 00:00:00 Zehra A [place] 350.1.13.10 it[place] 4[place] [phone] [address] 2019-04-24 2019-04-24 [facility] 1.2.840.114 [id number] Univers 00:00:00 00:00:00 Zehra A [place] 350.1.13.10 it[place] 4[place] [phone] [address] 2019-04-20 2019-04-20 [facility] 12.840.114 [id number] Univers 09:35:10 11:39:26 Visit Zehra A [place] 350.1.13.10 ity of [place] 4[place]2.[place].2.[place] [phone] [address] 2019-04-20 2019-04-20 Outpatient R LINDY [facility] [id number] Univers 09:40:00 09:40:00 ZEHRA [id number] ity of [facility] 2019-04-20 2019-04-20 [id number] Univers 09:40:00 09:40:00 ZEHRA ity of [facility] 2019-04-20 2019-04-20 Orders Doctor NAE 1.2.840.114 [id number] Univers 00:00:00 00:00:00 Only Unassigned, JESUS 350.1.13.10 ity of [place] [facility] 4.2.7.2.686 Kyle as [phone] [address] 2019-01-23 2019-01-23 Orders Doctor NAE 1.2.840.114 [id number] Univers 00:00:00 00:00:00 Only Unassigned, JESUS 350.1.13.10 ity of [place] [facility] 4.2.7.2.686 Kyle as [phone] [address] 2018-10-20 2018-10-[address] [facility] [place], [facility] 1.2.840.114 [id number] Univers 00:00:00 00:00:00 Zehra A [place] 350.1.13.10 it[place] [phone] [facility] 044 [facility] 2018-10-19 2018-10-19 [place] [facility] 1.2.840.114 [id number] Univers 00:00:00 00:00:00 Zehra A [place] 350.1.13.10 ity of [place] [phone] [facility] 231 [facility] 2018-09-28 2018-09-28 [facility] 1.2.840.114 [id number] Univers 00:00:00 00:00:00 Zehra A [place] 350.1.13.10 ity of [place] 4[place]2.7.2.[place] [phone] Nv [address] 2018-09-08 2018-09-08 Telephone Lindy [facility] 1.2.840.114 [id number] Univers 00:00:00 00:00:00 Zehra Mancilla 350.1.13.10 [place] [phone] [address] 2018-09-08 2018-09-08 Refill Lindy [facility] 1.2.840.114 [id number] Univers 00:00:00 00:00:00 Zehra Mancilla 350.1.13.10 it[place] of [place] [phone] [address] Results Test Description Test Time Test Comments Results Result Comments Source POCT GLUCOSE (AUTOMATED) 2020-11-27 13:02:24 Test Item Value Reference Range Interpretation Comme nts POCT GLU (test code = 6400906699) 152 mg/dL 70-110 H Lab Interpretation (test code = 15861-3) Abnormal [facility] GLUCOSE (AUTOMATED)2020-11-27 13:02:24 Test Item Value Reference Range Interpretation Comments POCT GLU (test code = 0296832552) 152 mg/dL 70-110 H Lab Interpretation (test code = Abnormal 45748-6) [facility] [id number] 12:52:00 Test Item Value Reference Range Interpretation Comments POCT Glu (age>30days) (test code = 152 mg/dL 70-110 A 3342) Lab Interpretation (test code = Abnormal 34771-5) [facility] [id number] 12:52:00 Test Item Value Reference Range Interpretation Comments POCT Glu (age>30days) (test code = 152 mg/dL 70-110 A 3342) Lab Interpretation (test code = Abnormal 87451-0) [facility] GLUCOSE (AUTOMATED)2020-10-23 12:02:13 Test Item Value Reference Range Interpretation Comments POCT GLU (test code = 1828344404) 90 mg/dL 70-110 Lab Interpretation (test code = Normal 25548-0) [facility] GLUCOSE (AUTOMATED)2020-10-23 12:02:13 Test Item Value Reference Range Interpretation Comments POCT GLU (test code = 9129507601) 90 mg/dL 70-110 Lab Interpretation (test code = Normal 75848-9) [facility] GLUCOSE (AUTOMATED)2020-10-23 12:02:13 Test Item Value Reference Range Interpretation Comments POCT GLU (test code = 1725743552) 90 mg/dL 70-110 Lab Interpretation (test code = Normal 62388-1) [facility] GLUCOSE (AUTOMATED)2020-10-23 12:02:13 Test Item Value Reference Range Interpretation Comments POCT GLU (test code = 1658237172) 90 mg/dL 70-110 Lab Interpretation (test code = Normal 63514-5) [facility] [id number] 12:00:00 Test Item Value Reference Range Interpretation Comments POCT Glu (age>30days) (test code = 90 mg/dL 70-110 3342) [facility] [id number] 12:00:00 Test Item Value Reference Range Interpretation Comments POCT Glu (age>30days) (test code = 90 mg/dL 70-110 3342) [facility] [id number] 12:00:00 Test Item Value Reference Range Interpretation Comments POCT Glu (age>30days) (test code = 90 mg/dL 70-110 3342) [facility] [id number] 12:00:00 Test Item Value Reference Range Interpretation Comments POCT Glu (age>30days) (test code = 90 mg/dL 70-110 3342) [facility] WITH [id number] 17:49:32 Test Item Value Reference Range Interpretation [...] (test code = 52.9 fL 39.0-49.9 H 05901-8) RDW-CV (test code = 15.3 % 12.0-15.5 788-0) PLT (test code = See_Comment [Automated 777-3) message] The sy stem which generated this result transmitted reference range : 166 - 358 10*3/ ?L. The reference r loree was not used to interpret this result as normal/abnormal . MPV (test code = 10.8 fL 9.5-12.9 16654-6) NRBC/100 WBC (test See_Comment [Automat ed code = 8287603711) message] The system which generated this result transmitted reference range : 0.0 - 10.0 /100 WBCs. The refer ence range was not u sed to interpret th is result as normal/abnormal . NRBC x10^3 (test code <0.01 See_Comment [Auto mated = 7097631613) message] The s ystem which generated this result transmitted reference range : 10*3/?L. The reference range was not used to interpret this result as normal/abnormal . GRAN MAT (NEUT) % 66.3 % (test code = 770-8) IMM GRAN % (test code 0.40 % = 4672746910) LYMPH % (test code = 23.9 % 736-9) MONO % (test code = 6.6 % 5905-5) EOS % (test code = 1.9 % 713-8) BASO % (test code = 0.9 % 706-2) GRAN MAT x10^3(ANC) 5.19 10*3/uL 1.88-7.09 (test code = 0491290165) IMM GRAN x10^3 (test 0.03 10*3/uL 0.00-0.06 code = 1467814336) LYMPH x10^3 (test code 1.87 10*3/uL 1.32-3.29 = 731-0) MONO x10^3 (test code 0.52 10*3/uL 0.33-0.92 = 742-7) EOS x10^3 (test code = 0.15 10*3/uL 0.03-0.39 711-2) BASO x10^3 (test code 0.07 10*3/uL 0.01-0.07 = 704-7) Lab Interpretation Abnormal (test code = 66394-7) [facility] WITH [id number] 17:49:32 Test Item Value Reference Range Interpretation Comments WBC (test code = See_Comment [Automated 6890-2) message] The sy stem which generated this result transmitted reference range : 4.30 - 11.10 10*3/?L. The reference range was not used to interpret this result as normal/abnormal . RBC (test code = See_Comment [Automated 409-8) message] The sy stem which generated this [...] (test code = 52.9 fL 39.0-49.9 H 57067-3) RDW-CV (test code = 15.3 % 12.0-15.5 788-0) PLT (test code = See_Comment [Automated 777-3) message] The sy stem which generated this result transmitted reference range : 166 - 358 10*3/ ?L. The reference r loree was not used to interpret this result as normal/abnormal . MPV (test code = 10.8 fL 9.5-12.9 75603-7) NRBC/100 WBC (test See_Comment [Automat ed code = 4520821971) message] The system which generated this result transmitted reference range : 0.0 - 10.0 /100 WBCs. The refer ence range was not u sed to interpret th is result as normal/abnormal . NRBC x10^3 (test code <0.01 See_Comment [Auto mated = 0994880468) message] The s ystem which generated this result transmitted reference range : 10*3/?L. The reference range was not used to interpret this result as normal/abnormal . GRAN MAT (NEUT) % 66.3 % (test code = 770-8) IMM GRAN % (test code 0.40 % = 7512461381) LYMPH % (test code = 23.9 % 736-9) MONO % (test code = 6.6 % 5905-5) EOS % (test code = 1.9 % 713-8) BASO % (test code = 0.9 % 706-2) GRAN MAT x10^3(ANC) 5.19 10*3/uL 1.88-7.09 (test code = 6225921311) IMM GRAN x10^3 (test 0.03 10*3/uL 0.00-0.06 code = 7201926056) LYMPH x10^3 (test code 1.87 10*3/uL 1.32-3.29 = 731-0) MONO x10^3 (test code 0.52 10*3/uL 0.33-0.92 = 742-7) EOS x10^3 (test code = 0.15 10*3/uL 0.03-0.39 711-2) BASO x10^3 (test code 0.07 10*3/uL 0.01-0.07 = 704-7) Lab Interpretation Abnormal (test code = 43753-1) [facility] HEMOGLOBIN A1C [id number] 16:57:00 Test Item Value Reference Range Interpretation Comments POCT HBA1C (test code = 4548-4) 7.6 % 4-6 A Lab Interpretation (test code = Abnormal 33926-8) [facility] HEMOGLOBIN A1C [id number] 16:57:00 Test Item Value Reference Range Interpretation Comments POCT HBA1C (test code = 4548-4) 7.6 % 4-6 A Lab Interpretation (test code = Abnormal 90883-5) [facility]
--- NOTE | 2021-03-30 16:18 | EDPHYS ---
Physician Documentation [facility] Name: Hortensia Bergman Age: 75 yrs Sex: Female : 1945 Arrival Date: 03/30/2021 Time: 15:19 Bed 15 Private MD: Sabino [facility] ED Physician Jackson Monreal HPI: 03/30 15:39 This 75 yrs old Female presents to ER via Ambulatory with complaints of pm1 Problem With Urinary Catheter - removal. 15:39 The patient presents with urinary symptoms, urinary retention. pm1 15:39 Onset: The symptoms/episode began/occurred 1 week(s) ago. Modifying factors: The pm1 symptoms are alleviated by nothing, the symptoms are aggravated by nothing. Associated signs and symptoms: Pertinent negatives: fever, abdominal pain, flank pain. Severity of symptoms: in the emergency department the symptoms have improved. The patient has been recently been admitted at [facility], was discharged last week. Patient was admitted to the hospital for hypoglycemia, UTI, urinary retention. Discharged home with Cipro and plan of care to follow up with urology for her urinary retention. Patient came to the ER after calling her PCP, Dr. Gallo because she was having difficulty with following up with urologist due to insurance issues - they don't accept her insurance. Patient came to the ER today with a request to remove her Brewer catheter. Historical: - Allergies: 15:23 Codeine; ll1 15:23 Iodine; ll1 - PMHx: 15:23 abd hernia; diabetes mellitus; Hypercholesterolemia; Hypertensive disorder; ll1 - Immunization history:: Client reports receiving the 2nd dose of the Covid vaccine. - Social history:: Smoking status: Patient denies any tobacco usage or history of. ROS: 15:39 Negative for urinary symptoms, pelvic pain, flank pain, vaginal itching. pm1 15:39 Constitutional: Negative for fever, chills, and weight loss, Cardiovascular: Negative for chest pain, palpitations, and edema, Respiratory: Negative for shortness of breath, cough, wheezing, and pleuritic chest pain, Abdomen/GI: Negative for abdominal pain, nausea, vomiting, diarrhea, and constipation, Skin: Negative for injury, rash, and discoloration, Neuro: Negative for headache, weakness, numbness, tingling, and seizure. 15:39 All other systems are negative. Exam: 15:39 Constitutional: This is a well developed, well nourished patient who is awake, alert, pm1 and in no acute distress. Head/Face: Normocephalic, atraumatic. 15:39 Back: No spinal tenderness. No costovertebral tenderness. Full range of motion. Skin: Warm, dry with normal turgor. Normal color with no rashes, no lesions, and no evidence of cellulitis. MS/ Extremity: Pulses equal, no cyanosis. Neurovascular intact. Full, normal range of motion. 15:39 Eyes: Exam is negative for acute changes, Periorbital structures: appear normal, Pupils: no acute changes, Conjunctiva: no acute changes, no injection, Sclera: no acute changes, icterus, is not appreciated. 15:39 Cardiovascular: Exam negative for acute changes, Rate: normal, Rhythm: regular, Pulses: no pulse deficits are appreciated, Edema: is not appreciated. 15:39 Respiratory: Exam negative for acute changes, respiratory distress, shortness of breath. 15:39 Abdomen/GI: Inspection: abdomen appears normal, Palpation: abdomen is soft and non-tender, in all quadrants. 15:39 : Bladder: distension, is not appreciated, tenderness, is not appreciated, a brewer is noted, urine is clear. 15:39 Neuro: Exam negative for acute changes, Orientation: is normal, Mentation: is normal, Motor: is normal, moves all fours. Vital Signs: 15:23 BP 135 / 64; Pulse 87; Resp 17; Temp 97.1; Pulse Ox 98% ; Weight 74.39 kg; Height 4 ft. ll1 11 in. (149.86 cm); Pain 0/10; 15:45 BP 132 / 58; Pulse 87; Resp 16; Pulse Ox 98% ; vg1 15:23 Body Mass Index 33.12 (74.39 kg, 149.86 cm) ll1 MDM: 15:32 Patient medically screened. pm1 15:39 Data reviewed: vital signs. pm1 15:59 ED course: Brewer catheter will not be removed in the ER because patient will likely pm1 return to the ER for urine retention. The possible cause is Lyrica and she taking a high dosage that will need to be titrated down. Reviewing prior medical records and labs, patient is on the appropriate medication for UTI based on urine cultures from hospitalization. 16:12 Physician consultation: Roland Sabino ROSS was called at 16:05, was contacted at 16:05, pm1 regarding consult, patient's condition, Discussed patient's Lyrica and it is possible cause for the patient's symptoms. Patient is currently taking 300 mg TID and the expected maximum daily dose of 300 mg. Recommended titration off the medication and he would like the patient to take 300 mg BID, follow up with urology and she has a scheduled appointment with him next week. Discussed with the patient and her daughter my discussion with Dr. Gallo and the expected plan of care. Administered Medications: No medications were administered Disposition: 17:24 Co-signature as Attending Physician, Jackson Monreal MD I agree with the assessment and rn plan of care. Attestation: The patient's history, exam findings, diagnostics, and a summary of any interventions or procedures was reviewed in detail with Shine Ladd NP. Disposition Summary: 03/30/21 16:18 Discharge Ordered Location: Home pm1 Problem: new pm1 Symptoms: have improved pm1 Condition: Stable pm1 Diagnosis - Retention of urine, unspecified pm1 - Adverse effect of other drugs, medicaments and biological substances - Lyrica pm1 Followup: pm1 - With: Emergency Department - When: As needed - Reason: Worsening of condition Followup: pm1 - With: Private Physician - When: 2 - 3 days - Reason: Recheck today's complaints, Continuance of care, Re-evaluation by your physician Discharge Instructions: - Discharge Summary Sheet pm1 - Acute Urinary Retention, Female pm1 Forms: - Medication Reconciliation Form pm1 - Thank You Letter pm1 - Antibiotic Education pm1 - Prescription Opioid Use pm1 Signatures: Jackson Monreal MD MD rn Marinas, Patrick, NP ROADS SUPERINTENDENT pm1 Juana Gutierrez, RN RN ll1
--- NOTE | 2021-03-30 16:18 | ER ---
Nurse's Notes [facility] Name: Hortensia Bergman Age: 75 yrs Sex: Female : 1945 Arrival Date: 03/30/2021 Time: 15:19 Bed 15 Private MD: Roland Gallo Diagnosis: Retention of urine, unspecified;Adverse effect of other drugs, medicaments and biological substances-Lyrica Presentation: 03/30 15:23 Chief complaint: Patient states: Has urinary catheter in since her last visit here ll1 Tuesday. Unable to get into urologist until next week. Dr. Gallo told her to come get evaluated in the ED since she is unable to see urologist quickly. Coronavirus screen: Vaccine status: Patient reports receiving the 2nd dose of the covid vaccine. Client denies travel out of the [place] in the last 14 days. At this time, the client does not indicate any symptoms associated with coronavirus-19. Ebola Screen: Patient denies travel to an Ebola-affected area in the 21 days before illness onset. Initial Sepsis Screen: Does the patient meet any 2 criteria? No. Patient's initial sepsis screen is negative. Does the patient have a suspected source of infection? Yes: Dysuria/Frequency/Urgency/UTI. Risk Assessment: Do you want to hurt yourself or someone else? Patient reports no desire to harm self or others. Onset of symptoms was March 27, 2021. 15:23 Method Of Arrival: Ambulatory ll1 15:23 Acuity: SPARKLE 4 ll1 Historical: - Allergies: 15:23 Codeine; ll1 15:23 Iodine; ll1 - PMHx: 15:23 abd hernia; diabetes mellitus; Hypercholesterolemia; Hypertensive disorder; ll1 - Immunization history:: Client reports receiving the 2nd dose of the Covid vaccine. - Social history:: Smoking status: Patient denies any tobacco usage or history of. Screenin:44 Abuse screen: Denies threats or abuse. Nutritional screening: No deficits noted. vg1 Tuberculosis screening: No symptoms or risk factors identified. Fall Risk No fall in past 12 months (0 pts). No secondary diagnosis (0 pts). No IV (0 pts). Ambulatory Aid- None/Bed Rest/Nurse Assist (0 pts). Gait- Normal/Bed Rest/Wheelchair (0 pts) Mental Status- Oriented to own ability (0 pts). Total Landry Fall Scale indicates No Risk (0-24 pts). Assessment: 15:43 General: Appears in no apparent distress. comfortable, Behavior is calm, cooperative. vg1 Pain: Denies pain. Neuro: Level of Consciousness is awake, alert, obeys commands, Oriented to person, place, time, situation. Cardiovascular: Patient's skin is warm and dry. Respiratory: Airway is patent Respiratory effort is even, unlabored. GI: No signs and/or symptoms were reported involving the gastrointestinal system. : Valdez in place suprapubic catheter in place to gravity drainage Urine is clear, Genitalia appear normal Denies pain. EENT: No signs and/or symptoms were reported regarding the EENT system. Derm: Skin is intact, is healthy with good turgor. Musculoskeletal: Circulation, motion, and sensation intact. Vital Signs: 15:23 BP 135 / 64; Pulse 87; Resp 17; Temp 97.1; Pulse Ox 98% ; Weight 74.39 kg; Height 4 ft. ll1 11 in. (149.86 cm); Pain 0/10; 15:45 BP 132 / 58; Pulse 87; Resp 16; Pulse Ox 98% ; vg1 15:23 Body Mass Index 33.12 (74.39 kg, 149.86 cm) ll1 ED Course: 15:19 Patient arrived in ED. am2 15:20 Roland Gallo, is Private Physician. am2 15:23 Arm band placed on. ll1 15:27 Triage completed. ll1 15:28 [facility]add [facility] pm1 15:28 Jackson Monreal MD is Attending Physician. pm1 15:33 Geno Cota, LUDY is Primary Nurse. vg1 15:44 Patient has correct armband on for positive identification. Placed in gown. Bed in low vg1 position. Call light in reach. Side rails up X 1. Adult w/ patient. 16:40 No provider procedures requiring assistance completed. Patient did not have IV access vg1 during this emergency room visit. Administered Medications: No medications were administered Outcome: 16:18 Discharge ordered by . pm1 16:40 Discharged to home ambulatory, with family. vg1 16:40 Condition: good 16:40 Discharge instructions given to patient, family, Instructed on discharge instructions, follow up and referral plans. Demonstrated understanding of instructions, follow-up care. 16:40 Patient left the ED. vg1 Signatures: Shine Ladd NP ARMORER TECHNICIAN pm1 Kathleen Pickard am2 Geno Cota RN RN vg1 Juana Gutierrez RN RN ll1
[2021-03-30 18:41] VITALS: TEMP 97.1; O2SAT 98
[2021-03-30 18:42] VITALS: BP 132/58
== END 2021-03-30 16:40 | disposition home or self-care (01) ==
LOC: ER 15:17
DX: R33.9 Retention of urine, unspecified (principal); T42.6X5A Adverse effect of other antiepileptic and sedative-hypnotic drugs, initial encounter; I10 Essential (primary) hypertension; Z88.5 Allergy status to narcotic agent; Z91.048 Other nonmedicinal substance allergy status
CPT/HCPCS: 99281

== ENCOUNTER 2021-04-08 14:34 | Emergency (ER) | payer OTHER ==
--- OUTSIDE RECORDS SUMMARY | 2021-04-08 14:37 | XMS REPORT | Continuity of Care Document ---
:1945 Author Organization [facility] t Address [address] [place] [address] Care Team Providers Name Role Phone Lindy SUH, A Primary Care Physician Mansoor Gallo Attending Clinician Unavailable Nurse, Surgery Gu Attending Clinician Unavailable Gramm WA[employer], A Attending Clinician GRAMM, A Attending Clinician Unavailable Doctor Unassigned, Name Attending Clinician Unavailable Lindy SUH, A Attending Clinician Payers Payer Name Policy Type Policy Number Effective Date Expiration Date S ource Problems Condition Condition Condition Status Onset Resolution Last Treating Co mments Source Name Details Category Date Date Treatment Clinician Date Cervical Cervical Disease Active Unive rs nerve root nerve root 3-08 [place] Branch Spinal Spinal Disease Active 2020- Univers stenosis stenosis 3-08 [place] of of lumbar [place] without without Branch neurogenic neurogenic claudicati claudicati on on Decreased Decreased Disease Active Uni vers activities activities 3-08 it y of of daily of daily 00:00: [place] living living 00 Medical (ADL) (ADL) Branch Chronic Chronic Disease Active 2019- Univers midline midline 3-08 ity of low back low back 00:00: [place] pain with pain with 00 Medi charito right-side right-side Br anch d sciatica d sciatica Vitamin B1 Vitamin B1 Disease Active U nivers deficiency deficiency 3-08 it y of 00:00: Medical Branch B12 B12 Disease Active Univers deficiency deficiency 3-08 it y of 00:00: Medical Branch Pyridoxine 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 3-08 it y of 00:00: Medical Branch Vitamin D Vitamin D Disease Active Uni vers deficiency deficiency 3-08 it y of 00:00: Medical Branch Hypothyroi Hypothyroi Disease Active U nivers dism dism 2-19 ity of (acquired) (acquired) [place] Glaucoma Glaucoma Disease Active Unive rs suspect of suspect of 3-04 it y of both eyes both eyes 00:00[place] Senile Senile Disease Active Univers nuclear 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 00:[place] Osteopenia Osteopenia Disease Active U nivers 3-05 ity of 00:00: Medical Branch Insomnia Insomnia Disease Active Overview: Un concepción 2-26 Formattin ity of 00:00: g of this [place] note Medical might be Branch different from the original. 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 use of use of ICD10 insulin insulin Diagnosis Term Tape Duplicator Utility Essential Essential Disease Active Uni vers hypertensi hypertensi 7-12 it y of on, benign on, benign 00:00: [place] HLD HLD Disease Active Overview: Univlamonte s (hyperlipi (hyperlipi 7-12 Formattin ity of demia) demia) 00:00: g of this note Medical might be Branch different from the original. ICD10 Diagnosis Term Tape Duplicator Utility Generalize Generalize Disease Active U nivers d d 7-12 ity of osteoarthr osteoarthr 00:[place] osis[place] osis, 00 Medical unspecifie unspecifie Br [...] Codeine Propensi Active Rash Univers ty to 08-25 ity of adverse 00:00: [place] reaction 00 Medical s Branch CODEINE DRUG Active Rash Univers INGREDI 08-25 ity of 00:00: [place] 00 Medical Branch Social History Social Habit Start Date Stop Date Quantity Comments Source Exposure to Not sure [facility] SARS-CoV-2 [place] Medical (event) Branch Alcohol intake 2021-04-03 2021-04-03 Current University 00:00:00 00:00:00 non-drinker of [facility] alcohol Branch (finding) Sex [birth year] Universit y of 00:00:00 00:00:00 [facility] Smoking Status Start Date Stop Date Source Never smoker [facility] Medications Ordered Filled Start Stop Current Ordering Indication Dosage Frequency Signature Comments Components Source Medication Medication Date Date Medication? Clinician (SIG) Name Name BD DEANO 2020-02 Yes [id number] USE Univ ers INSULIN 0-04 DIRECTED 4 ity of SYR, HALF 00:00: TIMES [place] UNIT, 0.3 00 DAILY Medical mL 31 gauge Branch x 15/64" Syrg BD VEO 2020-02 Yes [id number] USE Univ ers INSULIN 0-04 DIRECTED 4 ity of SYR, HALF 00:00: TIMES [place] UNIT, 0.3 00 DAILY Medical mL 31 gauge Branch x 15/64" Syrg BD VEO 2020-02 Yes [id number] USE Univ ers INSULIN 0-04 DIRECTED 4 ity of SYR, HALF 00:00: TIMES [place] UNIT, 0.3 00 DAILY Medical mL 31 gauge Branch x 15/64" Syrg BD VEO 0 Yes [id number] USE Univ ers INSULIN 8-19 DIRECTED 4 ity of SYRINGE UF 00:00: TIMES [place] 0.3 mL 31 DAILY Medical gauge x Branch 15/64" Syrg BD VEO 2020-0 Yes [id number] USE Univ ers INSULIN 8-19 DIRECTED 4 ity of SYRINGE UF 00:00: TIMES [place] 0.3 mL DAILY Medical gauge x Branch 15/64" Syrg BD VEO 2020-0 Yes [id number] USE Univ ers INSULIN 8-19 DIRECTED 4 ity of SYRINGE UF 00:00: TIMES [place] 0.3 mL DAILY Medical gauge x Branch 15/64" Syrg EUTHYROX 2020-0 Yes [id number] TAKE 1 Un concepción 125 mcg 7-30 TABLET BY ity of tablet 00:00: MOUTH ONCE 00 DAILY IN Medical THE Branch MORNING EUTHYROX 2020-0 Yes [id number] TAKE 1 Un concepción 125 mcg 7-30 TABLET BY ity of tablet 00:00: MOUTH ONCE DAILY IN Medical THE Branch MORNING EUTHYROX 2020-0 Yes [id number] TAKE 1 Un concepción 125 mcg 7-30 TABLET BY ity of tablet 00:00: MOUTH ONCE 00 DAILY IN Medical THE Branch MORNING PREGABALIN 2020-0 Yes [id number] Take 1 Univers 300 mg 6-05 capsule by ity of capsule 00:00: mouth 00 twice Medical daily Branch PREGABALIN 2020-0 Yes [id number] Take 1 Univers 300 mg 6-05 capsule by ity of capsule 00:00: mouth 00 twice Medical daily Branch PREGABALIN 2020-0 Yes [id number] Take 1 Univers 300 mg 6-05 capsule by ity of capsule 00:00: mouth 00 twice Medical daily Branch METFORMIN 2020-0 Yes [id number] TAKE 1 U nivers 1,000 mg 3-19 TABLET BY ity of tablet 00:00: MOUTH 00 TWICE Medical DAILY WITH Branch MEALS FOR DIABETES METFORMIN 2020-0 Yes [id number] TAKE 1 U nivers 1,000 mg 3-19 TABLET BY ity of tablet 00:00: MOUTH 00 TWICE Medical DAILY WITH Branch MEALS FOR DIABETES METFORMIN 2020-0 Yes [id number] TAKE 1 U nivers 1,000 mg 3-19 TABLET BY ity of tablet 00:00: MOUTH 00 TWICE Medical DAILY WITH Branch MEALS FOR DIABETES blood sugar 2020-0 Yes [id number] Check Univers diagnostic 3-06 sugars 2-3 ity of strip 00:00: times a [place] 00 day. Dx Medical Code Branch E11.9. AccuChek guide me brand. blood sugar 2020-0 Yes [id number] Check Univers diagnostic 3-06 sugars 2-3 ity of strip 00:00: times a [place] 00 day. Dx Medical Code Branch E11.9. AccuChek guide me brand. blood sugar 2020-0 Yes [id number] Check Univers diagnostic 3-06 sugars 2-3 ity of strip 00:00: times a [place] 00 day. Dx Medical Code Branch E11.9. AccuChek guide me brand. losartan 2018-02 Yes [id number] 100mg Take 1 Uni vers 100 mg 1-08 tablet by ity of tablet 00:00: mouth [place] 00 daily. For Medical blood Branch pressure atorvastati 2018-02 Yes [id number] 20mg Take 1 Univers n (LIPITOR) 1-08 tablet by ity of 20 mg 00:00: mouth at [place] tablet 00 bedtime. Medical For Branch cholestero l insulin 2018-02 Yes [id number] 30U inject 30 Univers glargine 1-08 Units ity of (LANTUS 00:00: under the [place] U-100 00 skin at Medical INSULIN) bedtime. Branch 100 unit/mL injection hydroCHLORO 2018-02 Yes [id number] 50mg Take 1 U nivers thiazide 50 1-08 tablet by ity of mg tablet 00:00: mouth [place] 00 daily. For Medical blood Branch pressure. losartan 2018-02 Yes [id number] 100mg Take 1 Uni vers 100 mg 1-08 tablet by ity of tablet 00:00: mouth [place] 00 daily. For Medical blood Branch pressure atorvastati 2018-02 Yes [id number] 20mg Take 1 Univers n (LIPITOR) 1-08 tablet by ity of 20 mg 00:00: mouth at [place] tablet 00 bedtime. Medical For Branch cholestero l insulin 2018-02 Yes [id number] 30U inject 30 Univers glargine 1-08 Units ity of (LANTUS 00:00: under the [place] U-100 00 skin at Medical INSULIN) bedtime. Branch 100 unit/mL injection hydroCHLORO 2018-02 Yes [id number] 50mg Take 1 U nivers thiazide 50 1-08 tablet by ity of mg tablet 00:00: mouth [place] 00 daily. For Medical blood Branch pressure. losartan 2018-02 Yes [id number] 100mg Take 1 Uni vers 100 mg 1-08 tablet by ity of tablet 00:00: mouth [place] 00 daily. For Medical blood Branch pressure atorvastati 2018-02 Yes [id number] 20mg Take 1 Univers n (LIPITOR) 1-08 tablet by ity of 20 mg 00:00: mouth at [place] tablet 00 bedtime. Medical For Branch cholestero l insulin 2018-02 Yes [id number] 30U inject 30 Univers glargine 1-08 Units ity of (LANTUS 00:00: under the [place] U-100 00 skin at Medical INSULIN) bedtime. Branch 100 unit/mL injection hydroCHLORO 2018-02 Yes [id number] 50mg Take 1 U nivers thiazide 50 1-08 tablet by ity of mg tablet 00:00: mouth [place] 00 daily. For Medical blood Branch pressure. insulin 2018-02 Yes [id number] 5U inject 5 U nivers regular 0-14 Units ity of human 00:00: under the [place] (HUMULIN R 00 skin 3 Medical REGULAR (three) Branch U-100 times INSULN) 100 daily unit/mL before injection meals. insulin 2018-02 Yes [id number] 5U inject 5 U nivers regular 0-14 Units ity of human 00:00: under the [place] (HUMULIN R 00 skin 3 Medical REGULAR (three) Branch U-100 times INSULN) 100 daily unit/mL before injection meals. insulin 2018-02 Yes [id number] 5U inject 5 U nivers regular 0-14 Units ity of human 00:00: under the [place] (HUMULIN R 00 skin 3 Medical REGULAR (three) Branch U-100 times INSULN) 100 daily unit/mL before injection meals. meloxicam Yes [id number] 15mg Take 1 U nivers 15 mg 9-09 tablet by ity of tablet 00:00: mouth [place] 00 daily. Medical Branch meloxicam Yes [id number] 15mg Take 1 U nivers 15 mg 9-09 tablet by ity of tablet 00:00: mouth [place] 00 daily. Medical Branch meloxicam Yes [id number] 15mg Take 1 U nivers 15 mg 9-09 tablet by ity of tablet 00:00: mouth [place] 00 daily. Medical Branch vitamin Yes [id number] 5000ug Take 5 U nivers B-12 1,000 7-08 tablets by ity of mcg tablet 00:00: mouth [place] 00 daily. Medical Branch vitamin B-1 Yes [id number] 50mg Take 1 Univers (VITAMIN 7-08 tablet by ity of B-1) 50 mg 00:00: mouth [place] tablet 00 daily. Medical Branch cholecalcif Yes [id number] Unsure of Univers tamika, 7-08 dose. ity of vitamin D3, 00:00: [place] 1,000 unit 00 Medical tablet Branch vitamin 2018-0 Yes [id number] 5000ug Take 5 U nivers B-12 1,000 7-08 tablets by ity of mcg tablet 00:00: mouth [place] 00 daily. Medical Branch vitamin B-1 Yes [id number] 50mg Take 1 Univers (VITAMIN 7-08 tablet by ity of B-1) 50 mg 00:00: mouth [place] tablet 00 daily. Medical Branch cholecalcif Yes [id number] Unsure of Univers tamika, 7-08 dose. ity of vitamin D3, 00:00: [place] 1,000 unit 00 Medical tablet Branch vitamin 2018- Yes [id number] 5000ug Take 5 U nivers B-12 1,000 7-08 tablets by ity of mcg tablet 00:00: mouth [place] 00 daily. Medical Branch vitamin B-1 Yes [id number] 50mg Take 1 Univers (VITAMIN 7-08 tablet by ity of B-1) 50 mg 00:00: mouth [place] tablet 00 daily. Medical Branch cholecalcif Yes [id number] Unsure of Univers tamika, 7-08 dose. ity of vitamin D3, 00:00: [place] 1,000 unit 00 Medical tablet Branch turmeric Yes [id number] 1{tbl} Take 1 Univers root 4-11 tablet by ity of extract 500 00:00: mouth [place] mg Cap 00 daily. Medical Branch turmeric 2018- Yes [id number] 1{tbl} Take 1 Univers root 4-11 tablet by ity of extract 500 00:00: mouth [place] mg Cap 00 daily. Medical Branch turmeric 2018- Yes [id number] 1{tbl} Take 1 Univers root 4-11 tablet by ity of extract 500 00:00: mouth [place] mg Cap 00 daily. Medical Branch Insulin 2018-0 Yes Check Univers Syringes, 1-22 Fingerstic ity of Disposable, 00:00: k blood [place] as 1 mL Syrg 00 glucose Medical qid. Branch Please dispense the relion syringes. RX#[id number] ICD-E11.9 Insulin Yes Check Univers Syringes, 1-22 Fingerstic ity of Disposable, 00:00: k blood [place] as 1 mL Syrg 00 glucose Medical qid. Branch Please dispense the relion syringes. RX#[id number] ICD-E11.9 Insulin Yes Check Univers Syringes, 1-22 Fingerstic ity of Disposable, 00:00: k blood [place] as 1 mL Syrg 00 glucose Medical qid. Branch Please dispense the relion syringes. RX#[id number] ICD-E11.9 Lancets & 2012-0 Yes [id number] Univ ers Blood 8-12 ity of Glucose 00:00: [place] Strips (ONE 00 Medical TOUCH Branch COMBO) [facility] & 2012-0 Yes [id number] Univ ers Blood 8-12 ity of Glucose 00:00: [place] Strips (ONE 00 Medical TOUCH Branch COMBO) [facility] Lancets & 2013-0 Yes [id number] Univ ers Blood 8-12 ity of Glucose 00:00: [place] Strips (ONE 00 Medical TOUCH Branch COMBO) [facility] Cushion 2011-02 Yes [id number] Univer s (CERVICAL 1-26 ity of PILLOW/COVE 00:00: [place] R) [facility] 00 Medical Branch Cushion 2011-02 Yes [id number] Univer s (CERVICAL 1-26 ity of PILLOW/COVE 00:00: [place] R) [facility] 00 Medical Branch Cushion 2011-02 Yes [id number] Univer s (CERVICAL 1-26 ity of PILLOW/COVE 00:00: [place] R) [facility] 00 [facility] Immunizations Ordered Filled Immunization Date Status Comments [facility] e Immunization Name Name SARS-COV-2 COVID-19 2020-04-12 Completed Unive rsity of PFIZER VACCINE 00:00:00 [facility] SARS-COV-2 COVID-19 2020-04-12 Completed Unive rsity of PFIZER VACCINE 00:00:00 [facility] SARS-COV-2 COVID-19 2020-04-12 Completed Unive rsity of PFIZER VACCINE 00:00:00 [facility] SARS-COV-2 COVID-19 2020-03-15 Completed Unive rsity of PFIZER VACCINE 00:00:00 [facility] SARS-COV-2 COVID-19 2020-03-15 Completed Unive rsity of PFIZER VACCINE 00:00:00 [facility] SARS-COV-2 COVID-19 2020-03-15 Completed Unive rsity of PFIZER VACCINE 00:00:00 [facility] Zoster Vaccine 2018-11-13 Completed University of Recombinant 00:00:00 [facility] Zoster Vaccine 2018-11-13 Completed University of Recombinant 00:00:00 [facility] Zoster Vaccine 2018-11-13 Completed University of Recombinant 00:00:00 [facility] Influenza Virus 2018-11-10 Completed Universit y of Vaccine 00:00:00 [facility] Influenza Virus 2018-11-10 Completed Universit y of Vaccine 00:00:00 [facility] Influenza Virus 2018-11-10 Completed Universit y of Vaccine 00:00:00 [facility] Zoster Vaccine 2018-09-12 Completed University of Recombinant 00:00:00 [facility] Zoster Vaccine 2018-09-12 Completed University of Recombinant 00:00:00 [facility] Zoster Vaccine 2018-09-12 Completed University of Recombinant 00:00:00 [facility] Influenza Virus 2017-10-28 Completed Universit y of Vaccine - Whole 00:00:00 [facility] Influenza Virus 2017-10-28 Completed Universit y of Vaccine - Whole 00:00:00 [facility] Influenza Virus 2017-10-28 Completed Universit y of Vaccine - Whole 00:00:00 [facility] Influenza High Dose 2015-11-21 Completed Unive rsity of 00:00:00 [facility] Influenza High Dose 2015-11-21 Completed Unive rsity of 00:00:00 [facility] Influenza High Dose 2015-11-21 Completed Unive rsity of 00:00:00 [facility] Pneumococcal 2014-05-31 Completed University o f Polysaccharide, 00:00:00 [facility] PPSV23 (PNEUMOVAX) [place] Pneumococcal 2014-05-31 Completed University o f Polysaccharide, 00:00:00 [facility] PPSV23 (PNEUMOVAX) [place] Pneumococcal 2014-05-31 Completed University o f Polysaccharide, 00:00:00 [facility] ical PPSV23 (PNEUMOVAX) Branch Influenza High Dose 2013-11-09 Completed Unive rsity of 00:00:00 [facility] Influenza High Dose 2013-11-09 Completed Unive rsity of 00:00:00 [facility] Influenza High Dose 2013-11-09 Completed Unive rsity of 00:00:00 [facility] Pneumococcal 7 2012-11-29 Completed University of Conjugate, PCV7 00:00:00 [place] Med ical (Prevnar7) Branch Pneumococcal 7 2012-11-29 Completed University of Conjugate, PCV7 00:00:00 [facility] ical (Prevnar7) Branch Pneumococcal 7 2012-11-29 Completed University of Conjugate, PCV7 00:00:00 [facility] ical (Prevnar7) Branch TDAP 2012-01-10 Completed University of 00:00:00 [facility] Zoster(Zostavax)( 2012-01-10 Completed Unive rsity of ingles) [facility] [facility] University of 00:00:00 [facility] Zoster(Zostavax)( 2012-01-10 Completed Unive rsity of ingles) 00:00[facility] [facility] 2012-01-10 Completed University of 00:00:00 [facility] Zoster(Zostavax)( 2012-01-10 Completed Unive rsity of ingles) 00:00:00 [facility] Influenza Virus 2011-12-16 Completed Universit y of Vaccine 00:00:00 [facility] Influenza Virus 2011-12-16 Completed Universit y of Vaccine 00:00:00 [facility] Influenza Virus 2011-12-16 Completed Universit y of Vaccine 00:00:00 [facility] Influenza Virus 2008-11-18 Completed Universit y of Vaccine 00:00:00 [facility] Influenza Virus 2008-11-18 Completed Universit y of Vaccine 00:00:00 [facility] Influenza Virus 2008-11-18 Completed Universit y of Vaccine 00:00:00 [facility] Pneumococcal 7 2007-03-13 Completed University of Conjugate, PCV7 00:00:00 [facility] ical (Prevnar7) Branch Pneumococcal 7 2007-03-13 Completed University of Conjugate, PCV7 00:00:00 [place] Med ical (Prevnar7) Branch Pneumococcal 7 2007-03-13 Completed University [facility], PCV7 00:00:00 [place] ical (Prevnar7) [place] Vital Signs Vital Name Observation Time Observation Value Comments Source Body weight 2021-04-03 21:32:00 73.301 kg [facility] BMI 2021-04-03 21:32:00 32.64 kg/m2 [facility] Systolic blood 2021-04-01 14:38:00 130 mm[Hg] Univer sity [facility] Diastolic blood 2021-04-01 14:38:00 65 mm[Hg] Unive rsity [facility] Heart rate 2021-04-01 14:38:00 85 /min [facility] Body temperature 2021-04-01 14:38:00 36 Lena [facility] 2021-04-01 14:38:00 16 /min [facility] Body height 2021-04-01 14:38:00 149.9 cm [facility] Body weight 2021-04-01 14:38:00 74.027 kg [facility] BMI 2021-04-01 14:38:00 32.96 kg/m2 [facility] Oxygen saturation in 2021-04-01 14:38:00 97 /min [facility] blood by [facility] Pulse oximetry Branch Procedures Procedure Date / Time Performed Performing Clinician [facility] e REFERRAL- 2021-03-31 06:01:00 Doctor Unassigned, No [facility] REQUEST/RESPONSE Name Medical Branch Encounters Start End Encounter Admission Attending Care Care Encounter Source Date/Time Date/Time Type Type Clinicians Facility Department ID 2021-03-30 Outpatient [facility] [id number] [facility] [facility] 08[facility]01 [facility] 2021-03-26 Outpatient Gallo [facility] [id number] [facility] 13:28:02 [facility] 2021-03-11 Outpatient Gall[facility] [id number] 14[facility]40:07 [facility] 2021-03-11 Out[facility] Gallo, [id number] [facility] 2021-03-11 Outpatient Gallo, [facility] 14[facility] [id number] [facility] 2021-03-11 Outpatient Gallo, [facility] 14:[facility] [id number] [facility] 2021-04-03 2021-04-03 Nurse Nurse, [facility] Surgery [facility] [id number]. [id number] Univers 15:00:00 15:00:00 Visit Karolina Macias [id number] ity [id number] [phone] [place] [address] 2021-04-03 2021-04-03 Outpatient R MELY, [facility] [id number] Univers 15:00:00 14:31:18 KAROLINA cotto [facility] 2021-04-01 2021-04-01 [facility] [id number] Univers 09:00:00 10:54:30 Visit Karolina MANCILLA [id number] ity [facility] [id number] PROF[place] [phone] [place] [address] 2021-03-31 2021-03-31 Orders Doctor NAE [id number] Univers 00:00:00 00:00:00 Only Unassigned, JESUS [id number] [facility] [id number] [place] as [phone] [address] 2021-03-30 2021-03-30 ambulatory [facility] [id number] [facility] 2021-03-30 2021-03-30 ambulatory [facility] [id number] [facility] 2021-03-30 2021-03-30 ambulatory [facility] [id number] [facility] 2021-03-26 2021-03-26 ambulatory [facility] [id number] [facility] 2021-03-25 2021-03-25 ambulatory [facility] [id number] [facility] 2021-03-19 2021-03-19 ambulatory [facility] [id number] [facility] 2021-03-18 2021-03-18 ambulatory [facility] [id number] [facility] 2021-03-13 2021-03-13 ambulatory [facility] [id number] [facility] 2021-03-10 2021-03-10 ambulatory [facility] [id number] [facility] 2021-03-09 2021-03-09 ambulatory [facility] [id number] [facility] 2021-01-23 2021-01-23 ambulatory [facility] [id number] [facility] 2020-12-24 2020-12-24 ambulatory [facility] [id number] [facility] 2020-12-22 2020-12-22 ambulatory [facility] [id number] [facility] 2019-09-29 2019-09-29 [facility] [id number] 00:00:00 00:00:00 Zehra Mancilla [id number] [place] [id number] Professio [phone] [facility] 231 [facility] 2019-09-08 2019-09-08 [facility] [id number] 00:00:00 00:00:00 Zehra Mancilla [id number] [place] [id number] Professio [phone] [facility] 044 [facility] 2019-08-16 2019-08-16 Orders Doctor NAE [id number] 00:00:00 00:00:00 Only Unassigned, JESUS [id number] [place] [facility] [id number] 2019-08-10 2019-08-10 [facility] [id number] 12:12:21 12:52:21 Visit Zehra Mancilla [id number] [place] [id number] Professio [phone] [address] Results This patient has no known results.
--- NOTE | 2021-04-08 16:41 | RAD REPORT ---
EXAM DESCRIPTION: RAD - Chest Single View - 04/08/2021 4:36 pm CLINICAL HISTORY: CONGESTION Chest pain. COMPARISON: Chest Single View dated 03/24/2021; Chest Single View dated 03/18/2021; ABDOMEN ACUTE SERIES dated 01/31/2014 FINDINGS: Portable technique limits examination quality. Mild bilateral pulmonary opacities may represent a viral infection or mild pulmonary edema. The heart is mildly enlarged in size. No displaced fractures.
[2021-04-08 17:00] LABS: Urine Blood 2+ (Negative); Urine Glucose Negative (Negative); Urine Protein Negative (Negative); Urine Specific Gravity 1.015 (1.005-1.030); Urine pH 6.5 (5.0-7.0)
[2021-04-08 17:01] LABS: Absolute Lymphocytes (CBC) 2.2 K/uL (0.7-4.9); Hematocrit 35.3 % (36.0-45.0); Lymphocytes % 25.2 % (15.3-44.8); MPV 9.8 fL (7.6-11.3); RBC Red Blood Cell Count 3.81 M/uL (3.86-4.86)
[2021-04-08 17:26] LABS: Albumin 3.6 g/dL (3.4-5.0); Bilirubin Total 0.3 mg/dL (0.2-1.0); Potassium 4.2 mmol/L (3.5-5.1); Protein, Total 7.1 g/dL (6.4-8.2); Troponin High Sensitivity 7.5 pg/mL (<58.9)
--- NOTE | 2021-04-08 18:03 | EDPHYS ---
Physician Documentation [facility] Name: Hortensia Bergman Age: 75 yrs Sex: Female : 1945 Arrival Date: 04/08/2021 Time: 14:35 Bed 30 Private MD: [facility] ED Physician Simona Felton HPI: 04/08 16:06 This 75 yrs old Female presents to ER via Ambulatory with complaints of Feet ma2 Swelling. 16:07 This 75 yrs old Female presents to ER via Ambulatory with complaints of Feet ma2 Swelling. 16:06 Onset: The symptoms/episode began/occurred gradually, 1 day(s) ago. Severity of ma2 symptoms: At their worst the symptoms were mild in the emergency department the symptoms are unchanged. 16:07 The patient has not experienced similar symptoms in the past. ma2 Historical: - Allergies: 14:59 Codeine; ap3 14:59 Iodine; ap3 - Home Meds: 14:59 atorvastatin 20 mg Oral tab [Active]; Humulin R 100 unit/mL cap [Active]; ap3 hydrochlorothiazide 50 mg Oral tab 1 tab once daily [Active]; Lantus 100 unit/mL Sub-Q cap [Active]; levothyroxine 100 mcg tab 1 tab once daily [Active]; losartan 100 mg Oral tab [Active]; metformin 1,000 mg Oral tab 1 tab 2 times per day [Active]; Folic Acid Oral [Active]; - PMHx: 14:59 abd hernia; diabetes mellitus; Hypercholesterolemia; Hypertensive disorder; ap3 - Immunization history:: Client reports receiving the 2nd dose of the Covid vaccine, Pneumococcal vaccine is up to date, Flu vaccine is up to date. - Social history:: Smoking status: Patient denies any tobacco usage or history of. Patient/guardian denies using alcohol, street drugs, The patient lives with family. - Family history:: not pertinent. - Hospitalizations: : No recent hospitalization is reported. ROS: 16:07 Constitutional: Negative for fever, chills, and weight loss. ma2 16:07 All other systems are negative. Exam: 16:07 Constitutional: This is a well developed, well nourished patient who is awake, alert, ma2 and in no acute distress. Neck: Trachea midline, no thyromegaly or masses palpated, and no cervical lymphadenopathy. Supple, full range of motion without nuchal rigidity, or vertebral point tenderness. No Meningismus. Chest/axilla: Normal chest wall appearance and motion. Nontender with no deformity. No lesions are appreciated. Cardiovascular: Regular rate and rhythm with a normal S1 and S2. No gallops, murmurs, or rubs. Normal PMI, no JVD. No pulse deficits. Respiratory: Lungs have equal breath sounds bilaterally, clear to auscultation and percussion. No rales, rhonchi or wheezes noted. No increased work of breathing, no retractions or nasal flaring. Abdomen/GI: Soft, non-tender, with normal bowel sounds. No distension or tympany. No guarding or rebound. No evidence of tenderness throughout. Skin: Warm, dry with normal turgor. Normal color with no rashes, no lesions, and no evidence of cellulitis. MS/ Extremity: Patient has 1+ bilateral pitting edema does not extend proximal to the ankles, no signs of DVT, or poor circulation. Otherwise pulses equal, no cyanosis. Neurovascular intact. Full, normal range of motion. Neuro: Awake and alert, GCS 15, oriented to person, place, time, and situation. Cranial nerves II-XII grossly intact. Motor strength 5/5 in all extremities. Sensory grossly intact. Cerebellar exam normal. Normal gait. Vital Signs: 14:57 BP 142 / 58; Pulse 84; Resp 18; Temp 97.9; Pulse Ox 98% ; Weight 73.94 kg; Height 4 ft. ap3 11 in. (149.86 cm); 16:27 BP 132 / 64; Pulse 82; Resp 18; Pulse Ox 98% ; ss7 18:13 BP 116 / 61; Pulse 82; Resp 18; Pulse Ox 97% on R/A; ss7 14:57 Body Mass Index 32.92 (73.94 kg, 149.86 cm) ap3 MDM: 15:27 Patient medically screened. ma2 18:01 Differential Diagnosis Mild lower extremity edema pitting equal bilaterally, I ma2 discussed with Dr. Gallo and he stated that he would like to rule out renal failure, history patient is on Val[place] catheter, patient has good urine output at this time, UA with mild microscopic hematuria otherwise no UTI, no renal failure on blood work lab work unremarkable, patient has mild pulmonary edema, however she needs an outpatient echocardiography,. Data reviewed: vital signs, nurses notes. Counseling: I had a detailed discussion with the patient and/or guardian regarding: the historical points, exam findings, and any diagnostic results supporting the discharge/admit diagnosis, the presence of at least one elevated blood pressure reading (>120/80) during this emergency department visit, the need for outpatient follow up. Response to treatment: the patient's symptoms have markedly improved after treatment. 04/08 15:27 Order name: CBC with Diff; Complete Time: 17:24 mn2 04/08 15:27 Order name: CMP; Complete Time: 17:44 mn2 04/08 15:28 Order name: Troponin High Sensitivity; Complete Time: 17:44 mn2 04/08 15:28 Order name: Chest Single View XRAY; Complete Time: 17:24 mn2 04/08 15:46 Order name: Urine Dipstick-Ancillary (obtain specimen); Complete Time: 17:37 mn2 04/08 17:00 Order name: Urine Dipstick-Ancillary; Complete Time: 17:24 EDMS Administered Medications: No medications were administered Disposition Summary: 04/08/21 18:02 Discharge Ordered Location: Home ma2 Condition: Stable ma2 Diagnosis - Edema, unspecified ma2 Followup: ma2 - With: Roland Gallo, - When: Tomorrow - Reason: If symptoms return, Continuance of care Discharge Instructions: - Discharge Summary Sheet ma2 - Edema, [id number] ma2 Forms: - Medication Reconciliation Form ma2 - Thank You Letter ma2 - Antibiotic Education ma2 - Prescription Opioid Use ma2 Prescriptions: - Lasix 20 mg Oral Tablet - take 1 tablet by ORAL route once daily; 20 tablet; Refills: 0, Product ma2 Selection Permitted Signatures: Dispatcher [employer] EDMS Simona Felton MD MD ma2 Kathleen Nogueira RN RN ap3
--- NOTE | 2021-04-08 18:03 | ER ---
Nurse's Notes [facility] Name: Hortensia Bergman Age: 75 yrs Sex: Female : 1945 Arrival Date: 04/08/2021 Time: 14:35 Bed 30 Private MD: Roland Gallo Diagnosis: Edema, unspecified Presentation: 04/08 14:57 Chief complaint: Patient states: she is presenting to the ED today complaining of SKYLAR ap3 lower extremity swelling that began yesterday. Patient reports she has a urinary catheter in X's 3 weeks, but had it changed yesterday. She states the reason the catheter was initially placed was due to her inability to void on her own. Coronavirus screen: At this time, the client does not indicate any symptoms associated with coronavirus-19. Ebola Screen: No symptoms or risks identified at this time. Initial Sepsis Screen: Does the patient meet any 2 criteria? No. Patient's initial sepsis screen is negative. Does the patient have a suspected source of infection? No. Patient's initial sepsis screen is negative. Risk Assessment: Do you want to hurt yourself or someone else? Patient reports no desire to harm self or others. Onset of symptoms was April 07, 2021. 14:57 Method Of Arrival: Ambulatory ap3 14:57 Acuity: SPARKLE 3 ap3 Triage Assessment: 15:00 General: Appears in no apparent distress. Behavior is calm, cooperative, appropriate ap3 for age. Pain: Denies pain. Neuro: Level of Consciousness is awake, alert, obeys commands, Oriented to person, place, time, situation, Appropriate for age. Cardiovascular: Patient's skin is warm and dry. Respiratory: Airway is patent. : Brewer in place brewer bag present under the patients clothing. Derm:. Musculoskeletal: Musculoskeletal: Swelling present in left and right ankles. Historical: - Allergies: 14:59 Codeine; ap3 14:59 Iodine; ap3 - Home Meds: 14:59 atorvastatin 20 mg Oral tab [Active]; Humulin R 100 unit/mL cap [Active]; ap3 hydrochlorothiazide 50 mg Oral tab 1 tab once daily [Active]; Lantus 100 unit/mL Sub-Q cap [Active]; levothyroxine 100 mcg tab 1 tab once daily [Active]; losartan 100 mg Oral tab [Active]; metformin 1,000 mg Oral tab 1 tab 2 times per day [Active]; Folic Acid Oral [Active]; - PMHx: 14:59 abd hernia; diabetes mellitus; Hypercholesterolemia; Hypertensive disorder; ap3 - Immunization history:: Client reports receiving the 2nd dose of the Covid vaccine, Pneumococcal vaccine is up to date, Flu vaccine is up to date. - Social history:: Smoking status: Patient denies any tobacco usage or history of. Patient/guardian denies using alcohol, street drugs, The patient lives with family. - Family history:: not pertinent. - Hospitalizations: : No recent hospitalization is reported. Screenin:02 Abuse screen: Denies threats or abuse. Nutritional screening: No deficits noted. ap3 Tuberculosis screening: No symptoms or risk factors identified. 18:23 Fall Risk IV access (20 points). ss7 Assessment: 17:00 General: Appears in no apparent distress. comfortable, Behavior is calm, cooperative, ss7 appropriate for age. Neuro: No deficits noted. Level of Consciousness is awake, alert, obeys commands, Oriented to person, place, time, situation, Reports. Cardiovascular: Reports BLE edema Heart tones S1 S2 Patient's skin is warm and dry. 1-2+ swelling to bilateral feet. Respiratory: No deficits noted. Breath sounds are clear bilaterally. GI: No deficits noted. Bowel sounds present X 4 quads. : Brewer in place to gravity drainage Pt present with indwelling catheter from home. leg pag. EENT: No deficits noted. Derm: No deficits noted. Musculoskeletal: No deficits noted. Vital Signs: 14:57 BP 142 / 58; Pulse 84; Resp 18; Temp 97.9; Pulse Ox 98% ; Weight 73.94 kg; Height 4 ft. ap3 11 in. (149.86 cm); 16:27 BP 132 / 64; Pulse 82; Resp 18; Pulse Ox 98% ; ss7 18:13 BP 116 / 61; Pulse 82; Resp 18; Pulse Ox 97% on R/A; ss7 14:57 Body Mass Index 32.92 (73.94 kg, 149.86 cm) ap3 ED Course: 14:35 Patient arrived in ED. am2 14:35 Roland Gallo DO is Private Physician. am2 14:59 Triage completed. ap3 15:02 Arm band placed on right wrist. ap3 15:27 Alzahri, Mohammad, MD is Attending Physician. ma2 16:14 Chitra Rodriguez, RN is Primary Nurse. ss7 16:36 Chest Single View XRAY In Process Unspecified. EDMS 17:07 Troponin High Sensitivity Sent. ss7 17:07 CMP Sent. ss7 17:07 CBC with Diff Sent. ss7 18:02 Roland Gallo DO is Referral Physician. ma2 18:22 No provider procedures requiring assistance completed. Inserted saline lock: 22 gauge ss7 in left forearm, using aseptic technique. IV discontinued, intact. 18:23 Patient has correct armband on for positive identification. Bed in low position. Call ss7 light in reach. Side rails up X2. Adult w/ patient. Administered Medications: No medications were administered Outcome: 18:02 Discharge ordered by . mn2 18:22 Discharged to home ss7 18:22 Condition: good 18:22 Discharge instructions given to patient. 18:23 Patient left the ED. 7 Signatures: Dispatcher [employer] EDMS Kathleen Pickard 2 Simona Felton MD MD mn2 Kathleen Nogueira RN RN ap3 Chitra Rodriguez, RN RN ss7
[2021-04-08 19:13] VITALS: BP 142/58; TEMP 97.9; O2SAT 98
== END 2021-04-08 18:23 | disposition home or self-care (01) ==
LOC: ER 14:34
DX: R60.9 Edema, unspecified (principal); I10 Essential (primary) hypertension; E11.9 Type 2 diabetes mellitus without complications; Z79.4 Long term (current) use of insulin; Z88.5 Allergy status to narcotic agent; Z91.048 Other nonmedicinal substance allergy status
CPT/HCPCS: 36415; 71045; 80053; 81003; 84484; 85025; 99283

== ENCOUNTER 2022-06-24 15:38 | Emergency (ER) | payer OTHER ==
--- OUTSIDE RECORDS SUMMARY | 2022-06-24 15:49 | XMS REPORT | Continuity of Care Document ---
:1945 Author Organization [facility] t Address [address] [place] [address] Care Team Providers Name Role Phone Sabino Roland M Primary Care Physician Roland Gallo Attending Clinician Unavailable KHOI LAN Attending Clinician Unavailable APLA GODFREY Attending Clinician Unavailable Alpa Godfrey MD Attending Clinician Nurse, [facility] Attending Clinician Unavailable Doctor Unassigned, [place] Attending Clinician Unavailable Unknown, Attending Attending Clinician Unavailable Nurse, Bls Urogyn Attending Clinician Unavailable Estrella Pond Attending Clinician ESTRELLA SMITH Attending Clinician Unavailable JAMAR LEMUS Attending Clinician Unavailable Faustino Ralph MD Attending Clinician [phone] FAUSTINO RALPH Attending Clinician Unavailable UZAIR Attending Clinician Unavailable Jamar Lemus MD Attending Clinician Nurse, [facility] Surgery Gu Attending Clinician Unavailable Karolina Medeiros Attending Clinician KAROLINA BOONE Attending Clinician Unavailable Khoi Lan MD Attending Clinician Only, Adc Test Attending Clinician Unavailable Zehra Israel MD Attending Clinician [phone] Pob, [facility] Lab Main Attending Clinician Unavailable ZEHRA ISRAEL Attending Clinician Unavailable KHOI LAN Admitting Clinician Unavailable GENAROJewelNAE Admitting Clinician Unavailable Khoi Lan MD Admitting Clinician Payers Payer Name Policy Type Policy Number Effective Date Expiration Date Anahy asher [employer] [id number] 2020spring 00:00:00 MEDICARE PART A [id number] 2000 \\T\\ B 00:00:00 [facility] C1 [id number] [facility] C1 [id number] [facility] Problems Condition Condition Condition Status Onset Resolution [...] sciatica Vitamin B1 Vitamin B1 Disease Active 2019-0 U nivers deficiency deficiency 3-08 it y of 00:00: [place] 00 [facility] Branch B12 B12 Disease Active 0 Univers deficiency deficiency 3-08 it y of 00:00: [place] 00 Medical Branch Pyridoxine Pyridoxine Disease Active 2020-0 U nivers deficiency deficiency 3-08 it y of 00:00: [place] 00 Medical Branch Vitamin D Vitamin D Disease Active 2019-0 Uni vers deficiency deficiency 3-08 it y of 00:00: [place] 00 Medical Branch Glaucoma Glaucoma Disease Active Unive rs suspect of suspect of 3-04 it y of [place] eyes both eyes 00:[place] Senile Senile Disease Active Univers nuclear 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 [place] Glaucoma Glaucoma Disease Active Unive rs suspect of suspect of 3-04 it y of [place] eyes both eyes 00:[place] Osteopenia Osteopenia Disease Active U nivers 3-05 ity of 00:00: [place] [facility] Insomnia Insomnia Disease Active Overview: Un concepción 2-26 Formattin ity of 00:00: g of this note Medical might be Branch different from the original. 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 use of use of ICD10 insulin insulin Diagnosis Term Election Assistant Utility Essential Essential Disease Active Uni vers hypertensi hypertensi 7-12 it y of on, benign [place], benign [place] HLD HLD Disease Active Overview: Univer s (hyperlipi (hyperlipi 7-12 Formattin ity of demia) demia) 00:00: g of this note Medical might be Branch different from the original. ICD10 Diagnosis Term Election Assistant Utility Generalize Generalize Disease Active U nivers d d 7-12 ity of osteoarthr [place]oarthr [place] osis[place]sis, 00 Medical unspecifie unspecifie Br anch d site d site [id number] Hypoglycem Problem C ommon 80947 ia due to Spirit type 2 - [facility] diabetes [facility] [id number] Iron Problem Common deficiency Spirit anemia, - [facility]I unspecifie St d iron [facility] deficiency Medica l anemia Center type [id number] Urinary Problem Commo n incontinen Spirit ce, - [facility]I unspecifie [facility] d type [facility] Indwelling Indwelling Problem C ommon urinary urinary Spirit catheter catheter - [facility] present present [facility] [id number] Body mass Problem Com mon index Spirit [BMI] - CHI 32.0-32.9, [facility] [id number] Diabetic Problem Comm on polyneurop Spirit athy - [facility]I associated St with type [facility] 2 diabetes Medica l mellitus [place] [id number] Essential Problem Comm on (primary) Spirit hypertensi - [facility] on [facility] [id number] Hypothyroi Problem Co mmon dism Spirit (acquired) - [facility] [id number] intermediate Problem Com mon (current) Spirit use of - [facility] insulin [facility] [id number] Other Problem Common obesity Spirit due to - [facility] excess [facility] [id number] Type 2 Problem Common diabetes Spirit mellitus - [facility] with [facility] [id number] Mixed Problem Common hyperlipid Spirit emia - [facility] Allergies, Adverse Reactions, Alerts Allergy Allergy Status Severity Reaction(s) Onset Inactive Treating Comm ents Source Name Type Date Date Clinician Iodine Propensi Active Hives 2005-02 Univers ty to 02-14 ity of adverse 00:00: [place] reaction 00 [facility] IODINE DRUG Active Hives 2005-02 Univers INGREDI 02-14 ity of 00:00: [place] 00 [facility] Codeine Propensi Active Rash 2005- Univers ty to 712 ity of adverse 00:00: [place] reaction 00 [facility] CODEINE DRUG Active Rash 2005- Univers INGREDI 12 ity of 00:00: [place] 00 [facility] codeine codeine Active hives Common Spirit - [facility] 463 Drug Active hives Common allergy Spirit - [facility] Social History Social Habit Start Date Stop Date Quantity Comments Source Sex Assigned At Common Sp ruth - [facility] History of Common Spirit - Tobacco Use [facility] Exposure to 2022-06-13 2022-06-23 Not sure [facility] SARS-CoV-2 00:00:00 12:16:00 [facility] (event) Branch Alcohol intake 2022-06-23 2022-06-23 Current [facility] 00:00:00 00:00:00 non-drinker of [facility] alcohol Branch (finding) Smoking Status Start Date Stop Date Source Never smoked tobacco [facility] Medications Ordered Filled Start Stop Current Ordering Indication Dosage Frequency Signature Comments Components Source Medication Medication Date Date Medication? Clinician (SIG) Name Name Insulin Insulin 2021-02 No Insulin Syringe 31G Syringe 31G 0-20 Syringe X 5/16" 0.3 X 5/16" 0.3 00:00: 31G X ML ML 00 516" 0.3 ML sulfamethox 2021-02- No [id number] 1{tbl} Take 1 Univers azole-trime 0-04 10-10 tablet by it y of oprim 00:00: 04:59 mouth in [place] (BACTRIM 00 :00 the Medical DS) 800-160 morning Branc h mg per and 1 tablet tablet in the evening. Do all this for 5 days. Lantus 100 Lantus 100 No QD Lantus 100 UNIT/ML UNIT/ML 6-13 UNIT/ML 00:00: 00 Lantus 100 Lantus 100 2021-0 No QD Lantus 100 UNIT/ML UNIT/ML 6-13 UNIT/ML 00:00: 00 Lantus 100 Lantus 100 2021-0 No QD Lantus 100 UNIT/ML UNIT/ML 6-13 UNIT/ML 00:00: 00 Lantus 100 Lantus 100 2021-0 No QD Lantus 100 UNIT/ML UNIT/ML 6-13 UNIT/ML 00:00: 00 Lantus 100 Lantus 100 2021-0 No QD Lantus 100 UNIT/ML UNIT/ML 6-13 UNIT/ML 00:00: 00 tamsulosin Yes [id number] .4mg Take 1 Univers 0.4 mg 24 4-21 capsule by ity of hr capsule 00:00: mouth 00 daily. Medical Branch estradioL Yes [id number] 2g Insert 2 g Univers 0.01 % (0.1 4-21 into ity of mg/gram) 00:00: vagina [place] vaginal 00 weekly. Medical cream Every Branch night for 2 weeks then 3 times a week tamsulosin 2021-0 Yes [id number] .4mg Take 1 Univers 0.4 mg 24 4-21 capsule by ity of hr capsule 00:00: mouth [place] 00 daily. Medical Branch estradioL Yes [id number] 2g Insert 2 g Univers 0.01 % (0.1 4-21 into ity of mg/gram) 00:00: vagina [place] vaginal 00 weekly. Medical cream Every Branch night for 2 weeks then 3 times a week tamsulosin 2-0 Yes [id number] .4mg Take 1 Univers 0.4 mg 24 4-21 capsule by ity of hr capsule 00:00: mouth [place] 00 daily. [facility] estradioL 2021-0 Yes [id number] 2g Insert 2 g Univers 0.01 % (0.1 4-21 into ity of mg/gram) 00:00: vagina [place] vaginal 00 weekly. Medical cream Every Branch night for 2 weeks then 3 times a week tamsulosin 2021-0 Yes [id number] .4mg Take 1 Univers 0.4 mg 24 4-21 capsule by ity of hr capsule 00:00: mouth [place] 00 daily. [facility] estradioL 2021-0 Yes [id number] 2g Insert 2 g Univers 0.01 % (0.1 4-21 into ity of mg/gram) 00:00: vagina [place] vaginal 00 weekly. Medical cream Every Branch night for 2 weeks then 3 times a week tamsulosin 2021-0 Yes [id number] .4mg Take 1 Univers 0.4 mg 24 4-21 capsule by ity of hr capsule 00:00: mouth [place] 00 daily. [facility] estradioL 2021-0 Yes [id number] 2g Insert 2 g Univers 0.01 % (0.1 4-21 into ity of mg/gram) 00:00: vagina [place] vaginal 00 weekly. Medical cream Every Branch night for 2 weeks then 3 times a week tamsulosin 2021-0 Yes [id number] .4mg Take 1 Univers 0.4 mg 24 4-21 capsule by ity of hr capsule 00:00: mouth [place] 00 daily. [facility] estradioL 2021-0 Yes [id number] 2g Insert 2 g Univers 0.01 % (0.1 4-21 into ity of mg/gram) 00:00: vagina [place] vaginal 00 weekly. Medical cream Every Branch night for 2 weeks then 3 times a week tamsulosin 2-0 Yes [id number] .4mg Take 1 Univers 0.4 mg 24 4-21 capsule by ity of hr capsule 00:00: mouth [place] 00 daily. [facility] estradioL 2-0 Yes [id number] 2g Insert 2 g Univers 0.01 % (0.1 4-21 into ity of mg/gram) 00:00: vagina [place] vaginal 00 weekly. Medical cream Every Branch night for 2 weeks then 3 times a week tamsulosin 2-0 Yes [id number] .4mg Take 1 Univers 0.4 mg 24 4-21 capsule by ity of hr capsule 00:00: mouth [place] 00 daily. [facility] estradioL 2021-0 Yes [id number] 2g Insert 2 g Univers 0.01 % (0.1 4-21 into ity of mg/gram) 00:00: vagina [place] vaginal 00 weekly. Medical cream Every Branch night for 2 weeks then 3 times a week tamsulosin 2021-0 Yes [id number] .4mg Take 1 Univers 0.4 mg 24 4-21 capsule by ity of hr capsule 00:00: mouth [place] 00 daily. [facility] estradioL 2021-0 Yes [id number] 2g Insert 2 g Univers 0.01 % (0.1 4-21 into ity of mg/gram) 00:00: vagina [place] vaginal 00 weekly. Medical cream Every Branch night for 2 weeks then 3 times a week tamsulosin 2021-0 Yes [id number] .4mg Take 1 Univers 0.4 mg 24 4-21 capsule by ity of hr capsule 00:00: mouth [place] 00 daily. [facility] estradioL 2021-0 Yes [id number] 2g Insert 2 g Univers 0.01 % (0.1 4-21 into ity of mg/gram) 00:00: vagina [place] vaginal 00 weekly. Medical cream Every Branch night for 2 weeks then 3 times a week tamsulosin 2021-0 Yes [id number] .4mg Take 1 Univers 0.4 mg 24 4-21 capsule by ity of hr capsule 00:00: mouth [place] 00 daily. [facility] estradioL 2-0 Yes [id number] 2g Insert 2 g Univers 0.01 % (0.1 4-21 into ity of mg/gram) 00:00: vagina [place] vaginal 00 weekly. Medical cream Every Branch night for 2 weeks then 3 times a week tamsulosin 2-0 Yes [id number] .4mg Take 1 Univers 0.4 mg 24 4-21 capsule by ity of hr capsule 00:00: mouth [place] 00 daily. [facility] estradioL 2021-0 Yes [id number] 2g Insert 2 g Univers 0.01 % (0.1 4-21 into ity of mg/gram) 00:00: vagina [place] vaginal 00 weekly. Medical cream Every Branch night for 2 weeks then 3 times a week tamsulosin 2-0 Yes [id number] .4mg Take 1 Univers 0.4 mg 24 4-21 capsule by ity of hr capsule 00:00: mouth [place] 00 daily. [facility] estradioL 2-0 Yes [id number] 2g Insert 2 g Univers 0.01 % (0.1 4-21 into ity of mg/gram) 00:00: vagina [place] vaginal 00 weekly. Medical cream Every Branch night for 2 weeks then 3 times a week tamsulosin 2-0 Yes [id number] .4mg Take 1 Univers 0.4 mg 24 4-21 capsule by ity of hr capsule 00:00: mouth [place] 00 daily. [facility] estradioL 2-0 Yes [id number] 2g Insert 2 g Univers 0.01 % (0.1 4-21 into ity of mg/gram) 00:00: vagina [place] vaginal 00 weekly. Medical cream Every Branch night for 2 weeks then 3 times a week tamsulosin 2-0 Yes [id number] .4mg Take 1 Univers 0.4 mg 24 4-21 capsule by ity of hr capsule 00:00: mouth [place] 00 daily. [facility] estradioL 2021-0 Yes [id number] 2g Insert 2 g Univers 0.01 % (0.1 4-21 into ity of mg/gram) 00:00: vagina [place] vaginal 00 weekly. Medical cream Every Branch night for 2 weeks then 3 times a week tamsulosin 2-0 Yes [id number] .4mg Take 1 Univers 0.4 mg 24 4-21 capsule by ity of hr capsule 00:00: mouth [place] 00 daily. [facility] estradioL 2-0 Yes [id number] 2g Insert 2 g Univers 0.01 % (0.1 4-21 into ity of mg/gram) 00:00: vagina [place] vaginal 00 weekly. Medical cream Every Branch night for 2 weeks then 3 times a week tamsulosin 2-0 Yes [id number] .4mg Take 1 Univers 0.4 mg 24 4-21 capsule by ity of hr capsule 00:00: mouth [place] 00 daily. [facility] estradioL 2-0 Yes [id number] 2g Insert 2 g Univers 0.01 % (0.1 4-21 into ity of mg/gram) 00:00: vagina [place] vaginal 00 weekly. Medical cream Every Branch night for 2 weeks then 3 times a week tamsulosin 2022-0 Yes [id number] .4mg Take 1 Univers 0.4 mg 24 4-21 capsule by ity of hr capsule 00:00: mouth [place] 00 daily. [facility] estradioL 2-0 Yes [id number] 2g Insert 2 g Univers 0.01 % (0.1 4-21 into ity of mg/gram) 00:00: vagina [place] vaginal 00 weekly. Medical cream Every Branch night for 2 weeks then 3 times a week tamsulosin 2022-0 Yes [id number] .4mg Take 1 Univers 0.4 mg 24 4-21 capsule by ity of hr capsule 00:00: mouth [place] 00 daily. [facility] estradioL 2-0 Yes [id number] 2g Insert 2 g Univers 0.01 % (0.1 4-21 into ity of mg/gram) 00:00: vagina [place] vaginal 00 weekly. Medical cream Every Branch night for 2 weeks then 3 times a week tamsulosin 2-0 Yes [id number] .4mg Take 1 Univers 0.4 mg 24 4-21 capsule by ity of hr capsule 00:00: mouth [place] 00 daily. [facility] estradioL 2-0 Yes [id number] 2g Insert 2 g Univers 0.01 % (0.1 4-21 into ity of mg/gram) 00:00: vagina [place] vaginal 00 weekly. Medical cream Every Branch night for 2 weeks then 3 times a week tamsulosin 2-0 Yes [id number] .4mg Take 1 Univers 0.4 mg 24 4-21 capsule by ity of hr capsule 00:00: mouth [place] 00 daily. [facility] estradioL 2-0 Yes [id number] 2g Insert 2 g Univers 0.01 % (0.1 4-21 into ity of mg/gram) 00:00: vagina [place] vaginal 00 weekly. Medical cream Every Branch night for 2 weeks then 3 times a week Pregabalin Pregabalin 2022-0 No 1{capsu TID Pregabalin 300 MG 300 MG 3-30 le} 300 MG 00:00: 00 Pregabalin Pregabalin 2022-0 No 1{capsu TID Pregabalin 300 MG 300 MG 3-30 le} 300 MG 00:00: 00 Pregabalin Pregabalin 2022-0 No 1{capsu TID Pregabalin 300 MG 300 MG 3-30 le} 300 MG 00:00: 00 Pregabalin Pregabalin 2022-0 No 1{capsu TID Pregabalin 300 MG 300 MG 3-30 le} 300 MG 00:00: 00 Pregabalin Pregabalin 2022-0 No 1{capsu TID Pregabalin 300 MG 300 MG 3-30 le} 300 MG 00:00: 00 Pregabalin Pregabalin 2022-0 No 1{capsu TID Pregabalin 300 MG 300 MG 3-30 le} 300 MG 00:00: 00 Pregabalin Pregabalin 2022-0 No 1{capsu TID Pregabalin 300 MG 300 MG 3-30 le} 300 MG 00:00: 00 furosemide 2022-0 Yes 20mg Take 20 mg U nivers 20 mg 3-15 by mouth ity of tablet 00:00: daily. [address] furosemide 2022-0 Yes 20mg Take 20 mg U nivers 20 mg 3-15 by mouth ity of tablet 00:00: daily. [place] [facility] furosemide 2022-0 Yes 20mg Take 20 mg U nivers 20 mg 3-15 by mouth ity of tablet 00:00: daily. [address] furosemide 2022-0 Yes 20mg Take 20 mg U nivers 20 mg 3-15 by mouth ity of tablet 00:00: daily. [place] [facility] furosemide 2022-0 Yes 20mg Take 20 mg U nivers 20 mg 3-15 by mouth ity of tablet 00:00: daily. [address] furosemide 2022-0 Yes 20mg Take 20 mg U nivers 20 mg 3-15 by mouth ity of tablet 00:00: daily. [address] furosemide 2022-0 Yes 20mg Take 20 mg U nivers 20 mg 3-15 by mouth ity of tablet 00:00: daily. [address] furosemide 2022-0 Yes 20mg Take 20 mg U nivers 20 mg 3-15 by mouth ity of tablet 00:00: daily. [address] furosemide 2022-0 Yes 20mg Take 20 mg U nivers 20 mg 3-15 by mouth ity of tablet 00:00: daily. [address] furosemide 2022-0 Yes 20mg Take 20 mg U nivers 20 mg 3-15 by mouth ity of tablet 00:00: daily. [address] furosemide 2022-0 Yes 20mg Take 20 mg U nivers 20 mg 3-15 by mouth ity of tablet 00:00: daily. [place] [facility] furosemide 2022-0 Yes 20mg Take 20 mg U nivers 20 mg 3-15 by mouth ity of tablet 00:00: daily. [place] [facility] furosemide 2022-0 Yes 20mg Take 20 mg U nivers 20 mg 3-15 by mouth ity of tablet 00:00: daily. [place] [facility] furosemide 2-0 Yes 20mg Take 20 mg U nivers 20 mg 3-15 by mouth ity of tablet 00:00: daily. [place] [facility] furosemide 2-0 Yes 20mg Take 20 mg U nivers 20 mg 3-15 by mouth ity of tablet 00:00: daily. [place] [facility] furosemide 2-0 Yes 20mg Take 20 mg U nivers 20 mg 3-15 by mouth ity of tablet 00:00: daily. [place] [facility] furosemide 2-0 Yes 20mg Take 20 mg U nivers 20 mg 3-15 by mouth ity of tablet 00:00: daily. [place] [facility] furosemide 2-0 Yes 20mg Take 20 mg U nivers 20 mg 3-15 by mouth ity of tablet 00:00: daily. [place] [facility] furosemide 2-0 Yes 20mg Take 20 mg U nivers 20 mg 3-15 by mouth ity of tablet 00:00: daily. [place] [facility] furosemide 2-0 Yes 20mg Take 20 mg U nivers 20 mg 3-15 by mouth ity of tablet 00:00: daily. [place] [facility] furosemide 2-0 Yes 20mg Take 20 mg U nivers 20 mg 3-15 by mouth ity of tablet 00:00: daily. [address] foLIC acid 2021-0 Yes 1mg Take 1 mg Un concepción 1 mg tablet 3-14 by mouth ity of 00:00: daily. [address] foLIC acid 2021-0 Yes 1mg Take 1 mg Un concepción 1 mg tablet 3-14 by mouth ity of 00:00: daily. [address] foLIC acid 2-0 Yes 1mg Take 1 mg Un concepción 1 mg tablet 3-14 by mouth ity of 00:00: daily. [address] foLIC acid 2021-0 Yes 1mg Take 1 mg Un concepción 1 mg tablet 3-14 by mouth ity of 00:00: daily. Medical Branch foLIC acid 2022-0 Yes 1mg Take 1 mg Un concepción 1 mg tablet 3-14 by mouth ity of 00:00: daily. Medical Branch foLIC acid 2022-0 Yes 1mg Take 1 mg Un concepción 1 mg tablet 3-14 by mouth ity of 00:00: daily. Medical Branch foLIC acid 2022-0 Yes 1mg Take 1 mg Un concepción 1 mg tablet 3-14 by mouth ity of 00:00: daily. Medical Branch foLIC acid 2022-0 Yes 1mg Take 1 mg Un concepción 1 mg tablet 3-14 by mouth ity of 00:00: daily. [place] [facility] foLIC acid 2022-0 Yes 1mg Take 1 mg Un concepción 1 mg tablet 3-14 by mouth ity of 00:00: daily. Medical Branch foLIC acid 2022-0 Yes 1mg Take 1 mg Un concepción 1 mg tablet 3-14 by mouth ity of 00:00: daily. Medical Branch foLIC acid 2022-0 Yes 1mg Take 1 mg Un concepción 1 mg tablet 3-14 by mouth ity of 00:00: daily. [place] [facility] foLIC acid 2-0 Yes 1mg Take 1 mg Un concepción 1 mg tablet 3-14 by mouth ity of 00:00: daily. [place] [facility] foLIC acid 2022-0 Yes 1mg Take 1 mg Un concepción 1 mg tablet 3-14 by mouth ity of 00:00: daily. Medical Branch foLIC acid 2022-0 Yes 1mg Take 1 mg Un concepción 1 mg tablet 3-14 by mouth ity of 00:00: daily. [place] [facility] foLIC acid 2022-0 Yes 1mg Take 1 mg Un concepción 1 mg tablet 3-14 by mouth ity of 00:00: daily. [place] [facility] foLIC acid 2022-0 Yes 1mg Take 1 mg Un concepción 1 mg tablet 3-14 by mouth ity of 00:00: daily. [place] [facility] foLIC acid 2022-0 Yes 1mg Take 1 mg Un concepción 1 mg tablet 3-14 by mouth ity of 00:00: daily. [place] [facility] foLIC acid 2022-0 Yes 1mg Take 1 mg Un concepción 1 mg tablet 3-14 by mouth ity of 00:00: daily. [place] [facility] foLIC acid 2021-0 Yes 1mg Take 1 mg Un concepción 1 mg tablet 3-14 by mouth ity of 00:00: daily. [place] [facility] foLIC acid 2021-0 Yes 1mg Take 1 mg Un concepción 1 mg tablet 3-14 by mouth ity of 00:00: daily. [place] [facility] foLIC acid 2021-0 Yes 1mg Take 1 mg Un concepción 1 mg tablet 3-14 by mouth ity of 00:00: daily. [address] Bactrim DS Bactrim DS 2021-0 2021- No 1{table BID Bactrim DS 800-160 MG 800-160 MG 03-13 t} 800-160 MG 00:00: 00:00 00 :00 Pregabalin Pregabalin 2020-1 No 1{capsu TID 300 MG 300 MG 2-10 le} 00:00: 00 Pregabalin Pregabalin 2020-1 No 1{capsu TID 300 MG 300 MG 2-10 le} 00:00: 00 Pregabalin Pregabalin 2020-1 No 1{capsu TID Pregabalin 300 MG 300 MG 2-10 le} 300 MG 00:00: 00 Pregabalin Pregabalin 2020-1 No 1{capsu TID Pregabalin 300 MG 300 MG 2-10 le} 300 MG 00:00: 00 Pregabalin Pregabalin 2020-1 No 1{capsu TID Pregabalin 300 MG 300 MG 2-10 le} 300 MG 00:00: 00 Pregabalin Pregabalin 2020-1 No 1{capsu TID Pregabalin 300 MG 300 MG 2-10 le} 300 MG 00:00: 00 BD VEO 2020- Yes [id number] USE Univ ers INSULIN 0-04 DIRECTED 4 ity of SYR, HALF 00:00: TIMES [place] UNIT, 0.3 00 DAILY Medical mL 31 gauge Branch x 15/64" Syrg BD VEO 2020-02 Yes [id number] USE Univ ers INSULIN 0-04 DIRECTED 4 ity of SYR, HALF 00:00: TIMES [place] UNIT, 0.3 00 DAILY Medical mL 31 gauge Branch x 15/64" Syrg BD VEO 2020-02 Yes [id number] USE Univ ers INSULIN 0-04 DIRECTED 4 ity of SYR, HALF 00:00: TIMES [place] UNIT, 0.3 00 DAILY Medical mL 31 gauge Branch x 15/64" Syrg BD VEO 2020-02 Yes [id number] USE Univ ers INSULIN 0-04 DIRECTED 4 ity of SYR, HALF 00:00: TIMES [place] UNIT, 0.3 00 DAILY Medical mL 31 gauge Branch x 15/64" Syrg BD VEO 2020-02 Yes [id number] USE Univ ers INSULIN 0-04 DIRECTED 4 ity of SYR, HALF 00:00: TIMES [place] UNIT, 0.3 00 DAILY Medical mL 31 gauge Branch x 15/64" Syrg BD VEO 2020-02 Yes [id number] USE Univ ers INSULIN 0-04 DIRECTED 4 ity of SYR, HALF 00:00: TIMES [place] UNIT, 0.3 00 DAILY Medical mL 31 gauge Branch x 15/64" Syrg BD VEO 2020-02 Yes [id number] USE Univ ers INSULIN 0-04 DIRECTED 4 ity of SYR, HALF 00:00: TIMES [place] UNIT, 0.3 00 DAILY Medical mL 31 gauge Branch x 15/64" Syrg BD VEO 2020-02 Yes [id number] USE Univ ers INSULIN 0-04 DIRECTED 4 ity of SYR, HALF 00:00: TIMES [place] UNIT, 0.3 00 DAILY Medical mL 31 gauge Branch x 15/64" Syrg BD VEO 2020-02 Yes [id number] USE Univ ers INSULIN 0-04 DIRECTED 4 ity of SYR, HALF 00:00: TIMES [place] UNIT, 0.3 00 DAILY Medical mL 31 gauge Branch x 15/64" Syrg BD VEO 2020-02 Yes [id number] USE Univ ers INSULIN 0-04 DIRECTED 4 ity of SYR, HALF 00:00: TIMES [place] UNIT, 0.3 00 DAILY Medical mL 31 gauge Branch x 15/64" Syrg BD VEO 2020-02 Yes [id number] USE Univ ers INSULIN 0-04 DIRECTED 4 ity of SYR, HALF 00:00: TIMES [place] UNIT, 0.3 00 DAILY Medical mL 31 gauge Branch x 15/64" Syrg BD VEO 2020-02 Yes [id number] USE Univ ers INSULIN 0-04 DIRECTED 4 ity of SYR, HALF 00:00: TIMES [place] UNIT, 0.3 00 DAILY Medical mL 31 gauge Branch x 15/64" Syrg BD VEO 2020-02 Yes [id number] USE Univ ers INSULIN 0-04 DIRECTED 4 ity of SYR, HALF 00:00: TIMES [place] UNIT, 0.3 00 DAILY Medical mL 31 gauge Branch x 15/64" Syrg BD VEO 2020-02 Yes [id number] USE Univ ers INSULIN 0-04 DIRECTED 4 ity of SYR, HALF 00:00: TIMES [place] UNIT, 0.3 00 DAILY Medical mL 31 gauge Branch x 15/64" Syrg BD VEO 2020-02 Yes [id number] USE Univ ers INSULIN 0-04 DIRECTED 4 ity of SYR, HALF 00:00: TIMES [place] UNIT, 0.3 00 DAILY Medical mL 31 gauge Branch x 15/64" Syrg BD VEO 2020-02 Yes [id number] USE Univ ers INSULIN 0-04 DIRECTED 4 ity of SYR, HALF 00:00: TIMES [place] UNIT, 0.3 00 DAILY Medical mL 31 gauge Branch x 15/64" Syrg BD VEO 2020-02 Yes [id number] USE Univ ers INSULIN 0-04 DIRECTED 4 ity of SYR, HALF 00:00: TIMES [place] UNIT, 0.3 00 DAILY Medical mL 31 gauge Branch x 15/64" Syrg BD VEO 2020-02 Yes [id number] [facility] INSULIN 0-04 DIRECTED 4 ity of SYR, HALF 00:00: TIMES [place] UNIT, 0.3 00 DAILY Medical mL 31 gauge Branch x 15/64" Syrg BD VEO 2020-02 Yes [id number] USE [facility] INSULIN 0-04 DIRECTED 4 ity of SYR, HALF 00:00: TIMES [place] UNIT, 0.3 00 DAILY Medical mL 31 gauge Branch x 15/64" Syrg BD VEO 2020-02 Yes [id number] USE [facility] INSULIN 0-04 DIRECTED 4 ity of SYR, HALF 00:00: TIMES [place] UNIT, 0.3 00 DAILY Medical mL 31 gauge Branch x 15/64" Syrg BD VEO 2020-02 Yes [id number] USE [facility] INSULIN 0-04 DIRECTED 4 ity of SYR, HALF 00:00: TIMES [place] UNIT, 0.3 00 DAILY Medical mL 31 gauge Branch x 15/64" Syrg BD VEO 2020-0 Yes [id number] USE [facility] INSULIN 8-19 DIRECTED 4 ity of SYRINGE UF 00:00: TIMES [place] 0.3 mL 31 DAILY Medical gauge x Branch 15/64" Syrg BD VEO 2020-0 Yes [id number] USE [facility] INSULIN 8-19 DIRECTED 4 ity of SYRINGE UF 00:00: TIMES [place] 0.3 mL 31 DAILY Medical gauge x Branch 15/64" Syrg BD VEO 2020-0 Yes [id number] USE [facility] INSULIN 8-19 DIRECTED 4 ity of SYRINGE UF 00:00: TIMES [place] 0.3 mL 31 DAILY Medical gauge x Branch 15/64" Syrg BD VEO 2020-0 Yes [id number] USE [facility] INSULIN 8-19 DIRECTED 4 ity of SYRINGE UF 00:00: TIMES [place] 0.3 mL 31 DAILY Medical gauge x Branch 15/64" Syrg BD VEO 2020-0 Yes [id number] USE [facility] INSULIN 8-19 DIRECTED 4 ity of SYRINGE UF 00:00: TIMES [place] 0.3 mL DAILY Medical gauge x Branch 15/64" Syrg BD VEO 2020-0 Yes [id number] USE [facility] INSULIN 8-19 DIRECTED 4 ity of SYRINGE UF 00:00: TIMES [place] 0.3 mL DAILY Medical gauge x Branch 15/64" Syrg BD VEO 2020-0 Yes [id number] USE [facility] INSULIN 8-19 DIRECTED 4 ity of SYRINGE UF 00:00: TIMES [place] 0.3 mL 31 DAILY Medical gauge x Branch 15/64" Syrg BD VEO 2020-0 Yes [id number] USE [facility] INSULIN 8-19 DIRECTED 4 ity of SYRINGE UF 00:00: TIMES [place] 0.3 mL 31 DAILY Medical gauge x Branch 15/64" Syrg BD VEO 2020-0 Yes [id number] USE [facility] INSULIN 8-19 DIRECTED 4 ity of SYRINGE UF 00:00: TIMES [place] 0.3 mL 31 DAILY Medical gauge x Branch 15/64" Syrg BD VEO 2020-0 Yes [id number] USE [facility] INSULIN 8-19 DIRECTED 4 ity of SYRINGE UF 00:00: TIMES [place] 0.3 mL 31 DAILY Medical gauge x Branch 15/64" Syrg BD VEO 2020-0 Yes [id number] USE [facility] INSULIN 8-19 DIRECTED 4 ity of SYRINGE UF 00:00: TIMES [place] 0.3 mL 31 DAILY Medical gauge x Branch 15/64" Syrg BD VEO 2020-0 Yes [id number] USE [facility] INSULIN 8-19 DIRECTED 4 ity of SYRINGE UF 00:00: TIMES [place] 0.3 mL 31 DAILY Medical gauge x Branch 15/64" Syrg BD VEO 2020-0 Yes [id number] USE [facility] INSULIN 8-19 DIRECTED 4 ity of SYRINGE UF 00:00: TIMES [place] 0.3 mL DAILY Medical gauge x Branch 15/64" Syrg BD VEO 2020-0 Yes [id number] USE [facility] INSULIN 8-19 DIRECTED 4 ity of SYRINGE UF 00:00: TIMES [place] 0.3 mL 31 DAILY Medical gauge x Branch 15/64" Syrg BD VEO 2020-0 Yes [id number] USE [facility] INSULIN 8-19 DIRECTED 4 ity of SYRINGE UF 00:00: TIMES [place] 0.3 mL DAILY Medical gauge x Branch 15/64" Syrg BD VEO 2020-0 Yes [id number] USE [facility] INSULIN 8-19 DIRECTED 4 ity of SYRINGE UF 00:00: TIMES [place] 0.3 mL 31 DAILY Medical gauge x Branch 15/64" Syrg BD VEO 2020-0 Yes [id number] USE [facility] INSULIN 8-19 DIRECTED 4 ity of SYRINGE UF 00:00: TIMES [place] 0.3 mL 31 DAILY Medical gauge x Branch 15/64" Syrg BD VEO 2020-0 Yes [id number] USE [facility] INSULIN 8-19 DIRECTED 4 ity of SYRINGE UF 00:00: TIMES [place] 0.3 mL 31 DAILY Medical gauge x Branch 15/64" Syrg BD VEO 2020-0 Yes [id number] USE [facility] INSULIN 8-19 DIRECTED 4 ity of SYRINGE UF 00:00: TIMES [place] 0.3 mL 31 DAILY Medical gauge x Branch 15/64" Syrg BD VEO 2020-0 Yes [id number] USE [facility] INSULIN 8-19 DIRECTED 4 ity of SYRINGE UF 00:00: TIMES [place] 0.3 mL 31 DAILY Medical gauge x Branch 15/64" Syrg BD VEO 2020-0 Yes [id number] USE [facility] INSULIN 8-19 DIRECTED 4 ity of SYRINGE UF 00:00: TIMES [place] 0.3 mL 31 00 DAILY Medical gauge x Branch " Syrg EUTHYROX 2020-0 Yes [id number] TAKE 1 Un concepción 125 mcg 7-30 TABLET BY ity of tablet 00:00: MOUTH ONCE [place] 00 DAILY IN [facility] MORNING EUTHYROX 2020-0 Yes [id number] TAKE 1 Un concepc[facility] 125 mcg 7-30 TABLET BY ity of tablet 00:00: MOUTH ONCE [place] 00 DAILY IN [facility] MORNING EUTHYROX 2020-0 Yes [id number] TAKE 1 Un conce[facility] 125 mcg 7-30 TABLET BY ity of tablet 00:00: MOUTH ONCE [place] 00 DAILY IN [facility] MORNING EUTHYROX 2020-0 Yes [id number] TAKE 1 Un conce[facility] 125 mcg 7-30 TABLET BY ity of tablet 00:00: MOUTH ONCE [place] 00 DAILY IN [facility] MORNING EUTHYROX 2020-0 Yes [id number] TAKE 1 Un conce[facility] 125 mcg 7-30 TABLET BY ity of tablet 00:00: MOUTH ONCE [place] 00 DAILY IN [facility] MORNING EUTHYROX 2020-0 Yes [id number] TAKE 1 Un concepc[facility] 125 mcg 7-30 TABLET BY ity of tablet 00:00: MOUTH ONCE [place] 00 DAILY IN [facility] MORNING EUTHYROX 2020-0 Yes [id number] TAKE 1 Un concepc[facility] 125 mcg 7-30 TABLET BY ity of tablet 00:00: MOUTH ONCE [place] 00 DAILY IN [facility] MORNING EUTHYROX 2020-0 Yes [id number] TAKE 1 Un concepc[facility] 125 mcg 7-30 TABLET BY ity of tablet 00:00: MOUTH ONCE [place] 00 DAILY IN [facility] MORNING EUTHYROX 2020-0 Yes [id number] TAKE 1 Un concepción 125 mcg 7-30 TABLET BY ity of tablet 00:00: MOUTH ONCE [place] 00 DAILY IN [facility] MORNING EUTHYROX 2020-0 Yes [id number] TAKE 1 Un concepción 125 mcg 7-30 TABLET BY ity of tablet 00:00: MOUTH ONCE [place] 00 DAILY IN [facility] MORNING EUTHYROX 2020-0 Yes [id number] TAKE 1 Un concepción 125 mcg 7-30 TABLET BY ity of tablet 00:00: MOUTH ONCE [place] 00 DAILY IN [facility] MORNING EUTHYROX 2020-0 Yes [id number] TAKE 1 Un concepc[facility] 125 mcg 7-30 TABLET BY ity of tablet 00:00: MOUTH ONCE [place] 00 DAILY IN [facility] MORNING EUTHYROX 2020-0 Yes [id number] TAKE 1 Un concepc[facility] 125 mcg 7-30 TABLET BY ity of tablet 00:00: MOUTH ONCE [place] 00 DAILY IN [facility] MORNING EUTHYROX 2020-0 Yes [id number] TAKE 1 Un concepción 125 mcg 7-30 TABLET BY ity of tablet 00:00: MOUTH ONCE [place] 00 DAILY IN [facility] MORNING EUTHYROX 2020-0 Yes [id number] TAKE 1 Un concepción 125 mcg 7-30 TABLET BY ity of tablet 00:00: MOUTH ONCE [place] 00 DAILY IN [facility] MORNING EUTHYROX 2020-0 Yes [id number] TAKE 1 Un concepción 125 mcg 7-30 TABLET BY ity of tablet 00:00: MOUTH ONCE [place] 00 DAILY IN [facility] MORNING EUTHYROX 2020-0 Yes [id number] TAKE 1 Un ocncepción 125 mcg 7-30 TABLET BY ity of tablet 00:00: MOUTH ONCE [place] 00 DAILY IN [facility] MORNING EUTHYROX 2020-0 Yes [id number] TAKE 1 Un concepción 125 mcg 7-30 TABLET BY ity of tablet 00:00: MOUTH ONCE [place] 00 DAILY IN [facility] MORNING EUTHYROX 2020-0 Yes [id number] TAKE 1 Un concepción 125 mcg 7-30 TABLET BY ity of tablet 00:00: MOUTH ONCE [place] 00 DAILY IN [facility] MORNING EUTHYROX 2020-0 Yes [id number] TAKE 1 Un concepción 125 mcg 7-30 TABLET BY ity of tablet 00:00: MOUTH ONCE [place] 00 DAILY IN [facility] MORNING EUTHYROX 2020-0 Yes [id number] TAKE 1 Un concepción 125 mcg 7-30 TABLET BY ity of tablet 00:00: MOUTH ONCE [place] 00 DAILY IN [facility] MORNING PREGABALIN 2020-0 Yes [id number] Take 1 Univers 300 mg 6-05 capsule by ity of capsule 00:00: mouth [place] 00 twice Medical daily [place] PREGABALIN 2020-0 Yes [id number] Take 1 Univers 300 mg 6-05 capsule by ity of capsule 00:00: mouth [place] 00 twice Medical daily [place] PREGABALIN 2020-0 Yes [id number] Take 1 Univers 300 mg 6-05 capsule by ity of capsule 00:00: mouth [place] 00 twice Medical daily [place] PREGABALIN 2020-0 Yes [id number] Take 1 [facility] 300 mg 6-05 capsule by ity of capsule 00:00: mouth twice Medical daily Branch PREGABALIN 2020-0 Yes [id number] Take 1 [facility] 300 mg 6-05 capsule by ity of capsule 00:00: mouth twice Medical daily Branch PREGABALIN 2020-0 Yes [id number] Take 1 [facility] 300 mg 6-05 capsule by ity of capsule 00:00: mouth twice Medical daily Branch PREGABALIN 2020-0 Yes [id number] Take 1 [facility] 300 mg 6-05 capsule by ity of capsule 00:00: mouth twice Medical daily Branch PREGABALIN 2020-0 Yes [id number] Take 1 [facility] 300 mg 6-05 capsule by ity of capsule 00:00: mouth twice Medical daily Branch PREGABALIN 2020-0 Yes [id number] Take 1 [facility] 300 mg 6-05 capsule by ity of capsule 00:00: mouth twice Medical daily Branch PREGABALIN 2020-0 Yes [id number] Take 1 [facility] 300 mg 6-05 capsule by ity of capsule 00:00: mouth twice Medical daily Branch PREGABALIN 2020-0 Yes [id number] Take 1 [facility] 300 mg 6-05 capsule by ity of capsule 00:00: mouth twice Medical daily Branch PREGABALIN 2020-0 Yes [id number] Take 1 [facility] 300 mg 6-05 capsule by ity of capsule 00:00: mouth twice Medical daily Branch PREGABALIN 2020-0 Yes [id number] Take 1 [facility] 300 mg 6-05 capsule by [facility] capsule [facility] daily Branch PREGABALIN 2020-0 Yes [id number] Take 1 [facility] 300 mg 6-05 capsule by ity of capsule 00:00: mouth twice Medical daily Branch PREGABALIN 2020-0 Yes [id number] Take 1 [facility] 300 mg 6-05 capsule by ity of capsule 00:00: mouth twice Medical daily Branch PREGABALIN 2020-0 Yes [id number] Take 1 [facility] 300 mg 6-05 capsule by ity of capsule 00:00: mouth twice Medical daily Branch PREGABALIN 2020-0 Yes [id number] Take 1 [facility] 300 mg 6-05 capsule by ity of capsule 00:00: mouth twice Medical daily Branch PREGABALIN 2020-0 Yes [id number] Take 1 [facility] 300 mg 6-05 capsule by ity of capsule 00:00: mouth twice Medical daily Branch PREGABALIN 2020-0 Yes [id number] Take 1 [facility] 300 mg 6-05 capsule by ity of capsule 00:00: twice Medical daily Branch PREGABALIN 2020-0 Yes [id number] Take 1 [facility] 300 mg 6-05 capsule by ity of capsule 00:00: mouth twice Medical daily Branch PREGABALIN 2020-0 Yes [id number] Take 1 [facility] 300 mg 6-05 capsule by ity of capsule 00:00: mouth twice Medical daily Branch METFORMIN 2020-0 Yes [id number] TAKE 1 U nivers 1,000 mg 3-19 TABLET BY ity of tablet 00:00: TWICE Medical DAILY WITH Branch MEALS FOR DIABETES METFORMIN 2020-0 Yes [id number] TAKE 1 U nivers 1,000 mg 3-19 TABLET BY ity of tablet 00:00: TWICE Medical DAILY WITH Branch MEALS FOR DIABETES METFORMIN 2020-0 Yes [id number] TAKE 1 U nivers 1,000 mg 3-19 TABLET BY ity of tablet 00:00: TWICE Medical DAILY WITH Branch MEALS FOR DIABETES METFORMIN 2020-0 Yes [id number] TAKE 1 U nivers 1,000 mg 3-19 TABLET BY ity of tablet 00:00: TWICE Medical DAILY WITH Branch MEALS FOR DIABETES METFORMIN 2020-0 Yes [id number] TAKE 1 U nivers 1,000 mg 3-19 TABLET BY ity of tablet 00:00: TWICE Medical DAILY WITH Branch MEALS FOR DIABETES METFORMIN 2020-0 Yes [id number] TAKE 1 U nivers 1,000 mg 3-19 TABLET BY ity of tablet 00:00: MOUTH TWICE Medical DAILY WITH Branch MEALS FOR DIABETES METFORMIN 2020-0 Yes [id number] TAKE 1 U nivers 1,000 mg 3-19 TABLET BY ity of tablet 00:00: MOUTH 00 TWICE Medical DAILY WITH Branch MEALS FOR DIABETES METFORMIN 2020-0 Yes [id number] TAKE 1 U nivers 1,000 mg 3-19 TABLET BY ity of tablet 00:00: TWICE Medical DAILY WITH Branch MEALS FOR DIABETES METFORMIN 2020-0 Yes [id number] TAKE 1 U nivers 1,000 mg 3-19 TABLET BY ity of tablet 00:00: MOUTH 00 TWICE Medical DAILY WITH Branch MEALS FOR DIABETES METFORMIN 2020-0 Yes [id number] TAKE 1 U nivers 1,000 mg 3-19 TABLET BY ity of tablet 00:00: MOUTH 00 TWICE Medical DAILY WITH Branch MEALS FOR DIABETES METFORMIN 2020-0 Yes [id number] TAKE 1 U nivers 1,000 mg 3-19 TABLET BY ity of tablet 00:00: MOUTH 00 TWICE Medical DAILY WITH Branch MEALS FOR DIABETES METFORMIN 2020-0 Yes [id number] TAKE 1 U nivers 1,000 mg 3-19 TABLET BY ity of tablet 00:00: MOUTH 00 TWICE Medical DAILY WITH Branch MEALS FOR DIABETES METFORMIN 2020-0 Yes [id number] TAKE 1 U nivers 1,000 mg 3-19 TABLET BY ity of tablet 00:00: MOUTH 00 TWICE Medical DAILY WITH Branch MEALS FOR DIABETES METFORMIN 2020-0 Yes [id number] TAKE 1 U nivers 1,000 mg 3-19 TABLET BY ity of tablet 00:00: MOUTH 00 TWICE Medical DAILY WITH Branch MEALS FOR DIABETES METFORMIN 2020-0 Yes [id number] TAKE 1 U nivers 1,000 mg 3-19 TABLET BY ity of tablet 00:00: MOUTH 00 TWICE Medical DAILY WITH Branch MEALS FOR DIABETES METFORMIN 2020-0 Yes [id number] TAKE 1 U nivers 1,000 mg 3-19 TABLET BY ity of tablet 00:00: MOUTH 00 TWICE Medical DAILY WITH Branch MEALS FOR DIABETES METFORMIN 2020-0 Yes [id number] TAKE 1 U nivers 1,000 mg 3-19 TABLET BY ity of tablet 00:00: MOUTH 00 TWICE Medical DAILY WITH Branch MEALS FOR DIABETES METFORMIN 2020-0 Yes [id number] TAKE 1 U nivers 1,000 mg 3-19 TABLET BY ity of tablet 00:00: MOUTH 00 TWICE Medical DAILY WITH Branch MEALS FOR DIABETES METFORMIN 2020-0 Yes [id number] TAKE 1 U nivers 1,000 mg 3-19 TABLET BY ity of tablet 00:00: MOUTH 00 TWICE Medical DAILY WITH Branch MEALS FOR DIABETES METFORMIN 2020-0 Yes [id number] TAKE 1 U nivers 1,000 mg 3-19 TABLET BY ity of tablet 00:00: MOUTH 00 TWICE Medical DAILY WITH Branch MEALS FOR DIABETES METFORMIN 2020-0 Yes [id number] TAKE 1 U nivers 1,000 mg 3-19 TABLET BY ity of tablet 00:00: MOUTH 00 TWICE Medical DAILY WITH Branch MEALS FOR DIABETES blood sugar 2020-0 Yes [id number] Check [facility] diagnostic 3-06 sugars 2-3 ity of strip 00:00: times a day. Dx Medical Code Branch E11.9. AccuChek guide me brand. blood sugar 2020-0 Yes [id number] Check [facility] diagnostic 3-06 sugars 2-3 ity of strip 00:00: times a day. Dx Medical Code Branch E11.9. AccuChek guide me brand. blood sugar 2020-0 Yes [id number] Check [facility] diagnostic 3-06 sugars 2-3 ity of strip 00:00: times a day. Dx Medical Code Branch E11.9. AccuChek guide me brand. blood sugar 2020-0 Yes [id number] Check [facility] diagnostic 3-06 sugars 2-3 ity of strip 00:00: times a day. Dx Medical Code Branch E11.9. AccuChek guide me brand. blood sugar 2020-0 Yes [id number] Check [facility] diagnostic 3-06 sugars 2-3 ity of strip 00:00: times a day. Dx Medical Code Branch E11.9. AccuChek guide me brand. blood sugar 2020-0 Yes [id number] Check [facility] diagnostic 3-06 sugars 2-3 ity of strip 00:00: times a day. Dx Medical Code Branch E11.9. AccuChek guide me brand. blood sugar 2020-0 Yes [id number] Check [facility] diagnostic 3-06 sugars 2-3 ity of strip 00:00: times a day. Dx Medical Code Branch E11.9. AccuChek guide me brand. blood sugar 2020-0 Yes [id number] Check [facility] diagnostic 3-06 sugars 2-3 ity of strip 00:00: times a day. Dx Medical Code Branch E11.9. AccuChek guide me brand. blood sugar 2020-0 Yes [id number] Check [facility] diagnostic 3-06 sugars 2-3 ity of strip 00:00: times a day. Dx Medical Code Branch E11.9. AccuChek guide me brand. blood sugar 2020-0 Yes [id number] Check [facility] diagnostic 3-06 sugars 2-3 ity of strip 00:00: times a day. Dx Medical Code Branch E11.9. AccuChek guide me brand. blood sugar 2020-0 Yes [id number] Check [facility] diagnostic 3-06 sugars 2-3 ity of strip 00:00: times a day. Dx Medical Code Branch E11.9. AccuChek guide me brand. blood sugar 2020-0 Yes [id number] Check [facility] diagnostic 3-06 sugars 2-3 ity of strip 00:00: times a day. Dx Medical Code Branch E11.9. AccuChek guide me brand. blood sugar 2020-0 Yes [id number] Check [facility] diagnostic 3-06 sugars 2-3 ity of strip 00:00: times a day. Dx Medical Code Branch E11.9. AccuChek guide me brand. blood sugar 2020-0 Yes [id number] Check [facility] diagnostic 3-06 sugars 2-3 ity of strip 00:00: times a day. Dx Medical Code Branch E11.9. AccuChek guide me brand. blood sugar 2020-0 Yes [id number] Check [facility] diagnostic 3-06 sugars 2-3 ity of strip 00:00: times a day. Dx Medical Code Branch E11.9. AccuChek guide me brand. blood sugar 2020-0 Yes [id number] Check [facility] diagnostic 3-06 sugars 2-3 ity of strip 00:00: times a day. Dx Medical Code Branch E11.9. AccuChek guide me brand. blood sugar 2020-0 Yes [id number] Check [facility] diagnostic 3-06 sugars 2-3 ity of strip 00:00: times a day. Dx Medical Code Branch E11.9. AccuChek guide me brand. blood sugar 2020-0 Yes [id number] Check [facility] diagnostic 3-06 sugars 2-3 ity of strip 00:00: times a day. Dx Medical Code Branch E11.9. AccuChek guide me brand. blood sugar 2020-0 Yes [id number] Check [facility] diagnostic 3-06 sugars 2-3 ity of strip 00:00: times a day. Dx Medical Code Branch E11.9. AccuChek guide me brand. blood sugar 2020-0 Yes [id number] Check [facility] diagnostic 3-06 sugars 2-3 ity of strip 00:00: times a [place] 00 day. Dx Medical Code Branch E11.9. AccuChek guide me brand. blood sugar 2019-0 Yes [id number] Check [facility] diagnostic 3-06 sugars 2-3 ity of strip 00:00: times a [place] 00 day. Dx Medical Code Branch E11.9. AccuChek guide me brand. losartan 2018-02 Yes [id number] 100mg Take 1 Uni vers 100 mg 1-08 tablet by ity of tablet 00:00: mouth [place] 00 daily. For Medical blood Branch pressure atorvastati 2018-02 Yes [id number] 20mg Take 1 Univers n (LIPITOR) 1-08 tablet by ity of 20 mg 00:00: mouth at [place] tablet 00 bedtime. Medical For Branch cholestero l insulin 2018-02 Yes [id number] 30U inject 30 [facility] glargine 1-08 Units ity of (LANTUS 00:00: under the [place] U-100 00 skin at Medical INSULIN) bedtime. Branch 100 unit/mL injection hydroCHLORO 2018-02 Yes [id number] 50mg Take 1 U nivers thiazide 50 1-08 tablet by ity of mg tablet 00:00: mouth [place] 00 daily. For Medical blood Branch pressure. losartan 2018-02 Yes [id number] 100mg Take 1 Uni vers 100 mg 1-08 tablet by ity of tablet 00:00: mouth [place] 00 daily. For Medical blood Branch pressure atorvastati 2018-02 Yes [id number] 20mg Take 1 Univers n (LIPITOR) 1-08 tablet by ity of 20 mg 00:00: mouth at [place] tablet 00 bedtime. Medical For Branch cholestero l insulin 2018-02 Yes [id number] 30U inject 30 [facility] glargine 1-08 Units ity of (LANTUS 00:00: under the [place] U-100 00 skin at Medical INSULIN) bedtime. Branch 100 unit/mL injection hydroCHLORO 2018-02 Yes [id number] 50mg Take 1 U nivers thiazide 50 1-08 tablet by ity of mg tablet 00:00: mouth [place] 00 daily. For Medical blood Branch pressure. losartan 2018-02 Yes [id number] 100mg Take 1 Uni vers 100 mg 1-08 tablet by ity of tablet 00:00: mouth [place] 00 daily. For Medical blood Branch pressure atorvastati 2018-02 Yes [id number] 20mg Take 1 Univers n (LIPITOR) 1-08 tablet by ity of 20 mg 00:00: mouth at [place] tablet 00 bedtime. Medical For Branch cholestero l insulin 2018-02 Yes [id number] 30U inject 30 [facility] glargine 1-08 Units ity of (LANTUS 00:00: under the [place] U-100 00 skin at Medical INSULIN) bedtime. Branch 100 unit/mL injection hydroCHLORO 2018-02 Yes [id number] 50mg Take 1 U nivers thiazide 50 1-08 tablet by ity of mg tablet 00:00: mouth [place] 00 daily. For Medical blood Branch pressure. losartan 2018-02 Yes [id number] 100mg Take 1 Uni vers 100 mg 1-08 tablet by ity of tablet 00:00: mouth [place] 00 daily. For Medical blood Branch pressure atorvastati 2018-02 Yes [id number] 20mg Take 1 Univers n (LIPITOR) 1-08 tablet by ity of 20 mg 00:00: mouth at [place] tablet 00 bedtime. Medical For Branch cholestero l insulin 2018-02 Yes [id number] 30U inject 30 [facility] glargine 1-08 Units ity of (LANTUS 00:00: under the [place] U-100 00 skin at Medical INSULIN) bedtime. Branch 100 unit/mL injection hydroCHLORO 2018-02 Yes [id number] 50mg Take 1 U nivers thiazide 50 1-08 tablet by ity of mg tablet 00:00: mouth [place] 00 daily. For Medical blood Branch pressure. losartan 2018-02 Yes [id number] 100mg Take 1 Uni vers 100 mg 1-08 tablet by ity of tablet 00:00: mouth [place] 00 daily. For Medical blood Branch pressure atorvastati 2018-02 Yes [id number] 20mg Take 1 [facility] n (LIPITOR) 1-08 tablet by ity of 20 mg 00:00: mouth at [place] tablet 00 bedtime. Medical For Branch cholestero l insulin 2018-02 Yes [id number] 30U inject 30 [facility] glargine 1-08 Units ity of (LANTUS 00:00: under the [place] U-100 00 skin at Medical INSULIN) bedtime. Branch 100 unit/mL injection hydroCHLORO 2018-02 Yes [id number] 50mg Take 1 U nivers thiazide 50 1-08 tablet by ity of mg tablet 00:00: mouth [place] 00 daily. For Medical blood Branch pressure. losartan 2018-02 Yes [id number] 100mg Take 1 Uni vers 100 mg 1-08 tablet by ity of tablet 00:00: mouth [place] 00 daily. For Medical blood Branch pressure atorvastati 2018-02 Yes [id number] 20mg Take 1 [facility] n (LIPITOR) 1-08 tablet by ity of 20 mg 00:00: mouth at [place] tablet 00 bedtime. Medical For Branch cholestero l insulin 2018-02 Yes [id number] 30U inject 30 [facility] glargine 1-08 Units ity of (LANTUS 00:00: under the [place] U-100 00 skin at Medical INSULIN) bedtime. Branch 100 unit/mL injection hydroCHLORO 2018-02 Yes [id number] 50mg Take 1 U nivers thiazide 50 1-08 tablet by ity of mg tablet 00:00: mouth [place] 00 daily. For Medical blood Branch pressure. losartan 2018-02 Yes [id number] 100mg Take 1 Uni vers 100 mg 1-08 tablet by ity of tablet 00:00: mouth [place] 00 daily. For Medical blood Branch pressure atorvastati 2018-02 Yes [id number] 20mg Take 1 [facility] n (LIPITOR) 1-08 tablet by ity of 20 mg 00:00: mouth at [place] tablet 00 bedtime. Medical For Branch cholestero l insulin 2018-02 Yes [id number] 30U inject 30 [facility] glargine 1-08 Units ity of (LANTUS 00:00: under the [place] U-100 00 skin at Medical INSULIN) bedtime. Branch 100 unit/mL injection hydroCHLORO 2018-02 Yes [id number] 50mg Take 1 U nivers thiazide 50 1-08 tablet by ity of mg tablet 00:00: mouth [place] 00 daily. For Medical blood Branch pressure. losartan 2018-02 Yes [id number] 100mg Take 1 [facility] vers 100 mg 1-08 tablet by ity of tablet 00:00: mouth [place] 00 daily. For Medical blood Branch pressure atorvastati 2018-02 Yes [id number] 20mg Take 1 [facility] n (LIPITOR) 1-08 tablet by ity of 20 mg 00:00: mouth at [place] tablet 00 bedtime. Medical For Branch cholestero l insulin 2018-02 Yes [id number] 30U inject 30 [facility] glargine 1-08 Units ity of (LANTUS 00:00: under the [place] U-100 00 skin at Medical INSULIN) bedtime. Branch 100 unit/mL injection hydroCHLORO 2018-02 Yes [id number] 50mg Take 1 U nivers thiazide 50 1-08 tablet by ity of mg tablet 00:00: mouth [place] 00 daily. For Medical blood Branch pressure. losartan 2018-02 Yes [id number] 100mg Take 1 [facility] vers 100 mg 1-08 tablet by ity of tablet 00:00: mouth [place] 00 daily. For Medical blood Branch pressure atorvastati 2018-02 Yes [id number] 20mg Take 1 [facility] n (LIPITOR) 1-08 tablet by ity of 20 mg 00:00: mouth at [place] tablet 00 bedtime. Medical For Branch cholestero l insulin 2018-02 Yes [id number] 30U inject 30 [facility] glargine 1-08 Units ity of (LANTUS 00:00: under the [place] U-100 00 skin at Medical INSULIN) bedtime. Branch 100 unit/mL injection hydroCHLORO 2018-02 Yes [id number] 50mg Take 1 U nivers thiazide 50 1-08 tablet by ity of mg tablet 00:00: mouth [place] 00 daily. For Medical blood Branch pressure. losartan 2018-02 Yes [id number] 100mg Take 1 [facility] vers 100 mg 1-08 tablet by ity of tablet 00:00: mouth [place] 00 daily. For Medical blood Branch pressure atorvastati 2018-02 Yes [id number] 20mg Take 1 [facility] n (LIPITOR) 1-08 tablet by ity of 20 mg 00:00: mouth at [place] tablet 00 bedtime. Medical For Branch cholestero l insulin 2018-02 Yes [id number] 30U inject 30 [facility] glargine 1-08 Units ity of (LANTUS 00:00: under the [place] U-100 00 skin at Medical INSULIN) bedtime. Branch 100 unit/mL injection hydroCHLORO 2018-02 Yes [id number] 50mg Take 1 U nivers thiazide 50 1-08 tablet by ity of mg tablet 00:00: mouth [place] 00 daily. For Medical blood Branch pressure. losartan 2018-02 Yes [id number] 100mg Take 1 [facility] vers 100 mg 1-08 tablet by ity of tablet 00:00: mouth [place] 00 daily. For Medical blood Branch pressure atorvastati 2018-02 Yes [id number] 20mg Take 1 [facility] n (LIPITOR) 1-08 tablet by ity of 20 mg 00:00: mouth at [place] tablet 00 bedtime. Medical For Branch cholestero l insulin 2018-02 Yes [id number] 30U inject 30 [facility] glargine 1-08 Units ity of (LANTUS 00:00: under the [place] U-100 00 skin at Medical INSULIN) bedtime. Branch 100 unit/mL injection hydroCHLORO 2018-02 Yes [id number] 50mg Take 1 U nivers thiazide 50 1-08 tablet by ity of mg tablet 00:00: mouth [place] 00 daily. For Medical blood Branch pressure. losartan 2018-02 Yes [id number] 100mg Take 1 [facility] vers 100 mg 1-08 tablet by ity of tablet 00:00: mouth [place] 00 daily. For Medical blood Branch pressure atorvastati 2018-02 Yes [id number] 20mg Take 1 [facility] n (LIPITOR) 1-08 tablet by ity of 20 mg 00:00: mouth at [place] tablet 00 bedtime. Medical For Branch cholestero l insulin 2018-02 Yes [id number] 30U inject 30 [facility] glargine 1-08 Units ity of (LANTUS 00:00: under the [place] U-100 00 skin at Medical INSULIN) bedtime. Branch 100 unit/mL injection hydroCHLORO 2018-02 Yes [id number] 50mg Take 1 U nivers thiazide 50 1-08 tablet by ity of mg tablet 00:00: mouth [place] 00 daily. For Medical blood Branch pressure. losartan 2018-02 Yes [id number] 100mg Take 1 [facility] vers 100 mg 1-08 tablet by ity of tablet 00:00: mouth [place] 00 daily. For Medical blood Branch pressure atorvastati 2018-02 Yes [id number] 20mg Take 1 [facility] n (LIPITOR) 1-08 tablet by ity of 20 mg 00:00: mouth at [place] tablet 00 bedtime. Medical For Branch cholestero l insulin 2018-02 Yes [id number] 30U inject 30 [facility] glargine 1-08 Units ity of (LANTUS 00:00: under the [place] U-100 00 skin at Medical INSULIN) bedtime. Branch 100 unit/mL injection hydroCHLORO 2018-02 Yes [id number] 50mg Take 1 U nivers thiazide 50 1-08 tablet by ity of mg tablet 00:00: mouth [place] 00 daily. For Medical blood Branch pressure. losartan 2018-02 Yes [id number] 100mg Take 1 [facility] vers 100 mg 1-08 tablet by ity of tablet 00:00: mouth [place] 00 daily. For Medical blood Branch pressure atorvastati 2018-02 Yes [id number] 20mg Take 1 [facility] n (LIPITOR) 1-08 tablet by ity of 20 mg 00:00: mouth at [place] tablet 00 bedtime. Medical For Branch cholestero l insulin 2018-02 Yes [id number] 30U inject 30 [facility] glargine 1-08 Units ity of (LANTUS 00:00: under the [place] U-100 00 skin at Medical INSULIN) bedtime. Branch 100 unit/mL injection hydroCHLORO 2018-02 Yes [id number] 50mg Take 1 U nivers thiazide 50 1-08 tablet by ity of mg tablet 00:00: mouth [place] 00 daily. For Medical blood Branch pressure. losartan 2018-02 Yes [id number] 100mg Take 1 [facility] vers 100 mg 1-08 tablet by ity of tablet 00:00: mouth [place] 00 daily. For Medical blood Branch pressure atorvastati 2018-02 Yes [id number] 20mg Take 1 [facility] n (LIPITOR) 1-08 tablet by ity of 20 mg 00:00: mouth at [place] tablet 00 bedtime. Medical For Branch cholestero l insulin 2018-02 Yes [id number] 30U inject 30 [facility] glargine 1-08 Units ity of (LANTUS 00:00: under the [place] U-100 00 skin at Medical INSULIN) bedtime. Branch 100 unit/mL injection hydroCHLORO 2018-02 Yes [id number] 50mg Take 1 U nivers thiazide 50 1-08 tablet by ity of mg tablet 00:00: mouth [place] 00 daily. For Medical blood Branch pressure. losartan 2018-02 Yes [id number] 100mg Take 1 [facility] vers 100 mg 1-08 tablet by ity of tablet 00:00: mouth [place] 00 daily. For Medical blood Branch pressure atorvastati 2018-02 Yes [id number] 20mg Take 1 [facility] n (LIPITOR) 1-08 tablet by ity of 20 mg 00:00: mouth at [place] tablet 00 bedtime. Medical For Branch cholestero l insulin 2018-02 Yes [id number] 30U inject 30 [facility] glargine 1-08 Units ity of (LANTUS 00:00: under the [place] U-100 00 skin at Medical INSULIN) bedtime. Branch 100 unit/mL injection hydroCHLORO 2018-02 Yes [id number] 50mg Take 1 [facility] nivers thiazide 50 1-08 tablet by ity of mg tablet 00:00: mouth [place] 00 daily. For Medical blood Branch pressure. losartan 2018-02 Yes [id number] 100mg Take 1 [facility] vers 100 mg 1-08 tablet by ity of tablet 00:00: mouth [place] 00 daily. For Medical blood Branch pressure atorvastati 2018-02 Yes [id number] 20mg Take 1 [facility] n (LIPITOR) 1-08 tablet by ity of 20 mg 00:00: mouth at [place] tablet 00 bedtime. Medical For Branch cholestero l insulin 2018-02 Yes [id number] 30U inject 30 [facility] glargine 1-08 Units ity of ([facility]ANTUS 00:00: under the [place] U-100 00 skin at Medical INSULIN) bedtime. Branch 100 unit/mL injection hydroCHLORO 2018-02 Yes [id number] 50mg Take 1 [facility] nivers thiazide 50 1-08 tablet by ity of mg tablet 00:00: mouth [place] 00 daily. For Medical blood Branch pressure. losartan 2018-02 Yes [id number] 100mg Take 1 [facility] vers 100 mg 1-08 tablet by ity of tablet 00:00: mouth [place] 00 daily. For Medical blood Branch pressure atorvastati 2018-02 Yes [id number] 20mg Take 1 [facility] n (LIPITOR) 1-08 tablet by ity of 20 mg 00:00: mouth at [place] tablet 00 bedtime. Medical For Branch cholestero l insulin 2018-02 Yes [id number] 30U inject 30 [facility] glargine 1-08 Units ity of ([facility]ANTUS 00:00: under the [place] U-100 00 skin at Medical INSULIN) bedtime. Branch 100 unit/mL injection hydroCHLORO 2018-02 Yes [id number] 50mg Take 1 U nivers thiazide 50 1-08 tablet by ity of mg tablet 00:00: mouth [place] 00 daily. For Medical blood Branch pressure. losartan 2018-02 Yes [id number] 100mg Take 1 [facility] vers 100 mg 1-08 tablet by ity of tablet 00:00: mouth [place] 00 daily. For Medical blood Branch pressure atorvastati 2018-02 Yes [id number] 20mg Take 1 [facility] n (LIPITOR) 1-08 tablet by ity of 20 mg 00:00: mouth at [place] tablet 00 bedtime. Medical For Branch cholestero l insulin 2018-02 Yes [id number] 30U inject 30 [facility] glargine 1-08 Units ity of ([facility]ANTUS 00:00: under the [place] U-100 00 skin at Medical INSULIN) bedtime. Branch 100 unit/mL injection hydroCHLORO 2018-02 Yes [id number] 50mg Take 1 U nivers thiazide 50 1-08 tablet by ity of mg tablet 00:00: mouth [place] 00 daily. For Medical blood Branch pressure. losartan 2018-02 Yes [id number] 100mg Take 1 [facility] vers 100 mg 1-08 tablet by ity of tablet 00:00: mouth [place] 00 daily. For Medical blood Branch pressure atorvastati 2018-02 Yes [id number] 20mg Take 1 [facility] n (LIPITOR) 1-08 tablet by ity of 20 mg 00:00: mouth at [place] tablet 00 bedtime. Medical For Branch cholestero l insulin 2018-02 Yes [id number] 30U inject 30 [facility] glargine 1-08 Units ity of ([facility]ANTUS 00:00: under the [place] U-100 00 skin at Medical INSULIN) bedtime. Branch 100 unit/mL injection hydroCHLORO 2018-02 Yes [id number] 50mg Take 1 U nivers thiazide 50 1-08 tablet by ity of mg tablet 00:00: mouth [place] 00 daily. For Medical blood Branch pressure. losartan 2018-02 Yes [id number] 100mg Take 1 [facility] vers 100 mg 1-08 tablet by ity of tablet 00:00: mouth [place] 00 daily. For Medical blood Branch pressure atorvastati 2018-02 Yes [id number] 20mg Take 1 [facility] n (LIPITOR) 1-08 tablet by ity of 20 mg 00:00: mouth at [place] tablet 00 bedtime. Medical For Branch cholestero l insulin 2018-02 Yes [id number] 30U inject 30 [facility] glargine 1-08 Units ity of (LANTUS 00:00: under the [place] U-100 00 skin at Medical INSULIN) bedtime. Branch 100 unit/mL injection hydroCHLORO 2018-02 Yes [id number] 50mg Take 1 U nivers thiazide 50 1-08 tablet by ity of mg tablet 00:00: mouth [place] 00 daily. For Medical blood Branch pressure. insulin 2018-02 Yes [id number] 5U inject 5 U nivers regular 0-14 Units ity of human 00:00: under the [place] (HUMULIN R 00 skin 3 Medical REGULAR (three) Branch U-100 times INSULN) 100 daily unit/mL before injection meals. insulin 2018-02 Yes [id number] 5U inject 5 U nivers regular 0-14 Units ity of human 00:00: under the [place] (HUMULIN R 00 skin 3 Medical REGULAR (three) Branch U-100 times INSULN) 100 daily unit/mL before injection meals. insulin 2018-02 Yes [id number] 5U inject 5 U nivers regular 0-14 Units ity of human 00:00: under the [place] (HUMULIN R 00 skin 3 Medical REGULAR (three) Branch U-100 times INSULN) 100 daily unit/mL before injection meals. insulin 2018-02 Yes [id number] 5U inject 5 U nivers regular 0-14 Units ity of human 00:00: under the [place] (HUMULIN R 00 skin 3 Medical REGULAR (three) Branch U-100 times INSULN) 100 daily unit/mL before injection meals. insulin 2018-02 Yes [id number] 5U inject 5 U nivers regular 0-14 Units ity of human 00:00: under the [place] (HUMULIN R 00 skin 3 Medical REGULAR (three) Branch U-100 times INSULN) 100 daily unit/mL before injection meals. insulin 2018-02 Yes [id number] 5U inject 5 U nivers regular 0-14 Units ity of human 00:00: under the [place] (HUMULIN R 00 skin 3 Medical REGULAR (three) Branch U-100 times INSULN) 100 daily unit/mL before injection meals. insulin 2018-02 Yes [id number] 5U inject 5 U nivers regular 0-14 Units ity of human 00:00: under the [place] (HUMULIN R 00 skin 3 Medical REGULAR (three) Branch U-100 times INSULN) 100 daily unit/mL before injection meals. insulin 2018-02 Yes [id number] 5U inject 5 U nivers regular 0-14 Units ity of human 00:00: under the [place] (HUMULIN R 00 skin 3 Medical REGULAR (three) Branch U-100 times INSULN) 100 daily unit/mL before injection meals. insulin 2018-02 Yes [id number] 5U inject 5 U nivers regular 0-14 Units ity of human 00:00: under the [place] (HUMULIN R 00 skin 3 Medical REGULAR (three) Branch U-100 times INSULN) 100 daily unit/mL before injection meals. insulin 2018-02 Yes [id number] 5U inject 5 U nivers regular 0-14 Units ity of human 00:00: under the [place] (HUMULIN R 00 skin 3 Medical REGULAR (three) Branch U-100 times INSULN) 100 daily unit/mL before injection meals. insulin 2018-02 Yes [id number] 5U inject 5 U nivers regular 0-14 Units ity of human 00:00: under the [place] (HUMULIN R 00 skin 3 Medical REGULAR (three) Branch U-100 times INSULN) 100 daily unit/mL before injection meals. insulin 2018-02 Yes [id number] 5U inject 5 U nivers regular 0-14 Units ity of human 00:00: under the [place] (HUMULIN R 00 skin 3 Medical REGULAR (three) Branch U-100 times INSULN) 100 daily unit/mL before injection meals. insulin 2018-02 Yes [id number] 5U inject 5 U nivers regular 0-14 Units ity of human 00:00: under the [place] (HUMULIN R 00 skin 3 Medical REGULAR (three) Branch U-100 times INSULN) 100 daily unit/mL before injection meals. insulin 2018-02 Yes [id number] 5U inject 5 U nivers regular 0-14 Units ity of human 00:00: under the [place] (HUMULIN R 00 skin 3 Medical REGULAR (three) Branch U-100 times INSULN) 100 daily unit/mL before injection meals. insulin 2018-02 Yes [id number] 5U inject 5 U nivers regular 0-14 Units ity of human 00:00: under the [place] (HUMULIN R 00 skin 3 Medical REGULAR (three) Branch U-100 times INSULN) 100 daily unit/mL before injection meals. insulin 2018-02 Yes [id number] 5U inject 5 U nivers regular 0-14 Units ity of human 00:00: under the [place] (HUMULIN R 00 skin 3 Medical REGULAR (three) Branch U-100 times INSULN) 100 daily unit/mL before injection meals. insulin 2018-02 Yes [id number] 5U inject 5 U nivers regular 0-14 Units ity of human 00:00: under the [place] (HUMULIN R 00 skin 3 Medical REGULAR (three) Branch U-100 times INSULN) 100 daily unit/mL before injection meals. insulin 2018-02 Yes [id number] 5U inject 5 U nivers regular 0-14 Units ity of human 00:00: under the [place] (HUMULIN R 00 skin 3 Medical REGULAR (three) Branch U-100 times INSULN) 100 daily unit/mL before injection meals. insulin 2018-02 Yes [id number] 5U inject 5 U nivers regular 0-14 Units ity of human 00:00: under the [place] (HUMULIN R 00 skin 3 Medical REGULAR (three) Branch U-100 times INSULN) 100 daily unit/mL before injection meals. insulin 2018-02 Yes [id number] 5U inject 5 U nivers regular 0-14 Units ity of human 00:00: under the [place] (HUMULIN R 00 skin 3 Medical REGULAR (three) Branch U-100 times INSULN) 100 daily unit/mL before injection meals. insulin 2018-02 Yes [id number] 5U inject 5 U nivers regular 0-14 Units ity of human 00:00: under the [place] (HUMULIN R 00 skin 3 Medical REGULAR (three) Branch U-100 times INSULN) 100 daily unit/mL before injection meals. meloxicam Yes [id number] 15mg Take 1 U nivers 15 mg 9-09 tablet by ity of tablet 00:00: mouth [place] 00 daily. Medical Branch meloxicam Yes [id number] 15mg Take 1 U nivers 15 mg 9-09 tablet by ity of tablet 00:00: mouth [place] 00 daily. [facility] Branch meloxicam Yes [id number] 15mg Take 1 U nivers 15 mg 9-09 tablet by ity of tablet 00:00: mouth [place] 00 daily. [facility] Branch meloxicam Yes [id number] 15mg Take 1 U nivers 15 mg 9-09 tablet by ity of tablet 00:00: mouth [place] 00 daily. [facility] Branch meloxicam Yes [id number] 15mg Take 1 U nivers 15 mg 9-09 tablet by ity of tablet 00:00: mouth [place] 00 daily. [facility] Branch meloxicam Yes [id number] 15mg Take 1 U nivers 15 mg 9-09 tablet by ity of tablet 00:00: mouth [place] 00 daily. Medical Branch meloxicam 2019-0 Yes [id number] 15mg Take 1 U nivers 15 mg 9-09 tablet by ity of tablet 00:00: mouth [place] 00 daily. Medical Branch meloxicam 2018-0 Yes [id number] 15mg Take 1 U nivers 15 mg 9-09 tablet by ity of tablet 00:00: mouth [place] 00 daily. Medical Branch meloxicam 2018-0 Yes [id number] 15mg Take 1 U nivers 15 mg 9-09 tablet by ity of tablet 00:00: mouth [place] 00 daily. Medical Branch meloxicam 0 Yes [id number] 15mg Take 1 U nivers 15 mg 9-09 tablet by ity of tablet 00:00: mouth [place] 00 daily. [facility] Branch meloxicam 0 Yes [id number] 15mg Take 1 U nivers 15 mg 9-09 tablet by ity of tablet 00:00: mouth [place] 00 daily. [facility] Branch meloxicam 2018-0 Yes [id number] 15mg Take 1 U nivers 15 mg 9-09 tablet by ity of tablet 00:00: mouth [place] 00 daily. Medical Branch meloxicam 0 Yes [id number] 15mg Take 1 U nivers 15 mg 9-09 tablet by ity of tablet 00:00: mouth [place] 00 daily. [facility] Branch meloxicam 2018-0 Yes [id number] 15mg Take 1 U nivers 15 mg 9-09 tablet by ity of tablet 00:00: mouth [place] 00 daily. [facility] Branch meloxicam 2018-0 Yes [id number] 15mg Take 1 U nivers 15 mg 9-09 tablet by ity of tablet 00:00: mouth [place] 00 daily. Medical Branch meloxicam 2019-0 Yes [id number] 15mg Take 1 U nivers 15 mg 9-09 tablet by ity of tablet 00:00: mouth [place] 00 daily. [facility] Branch meloxicam 2019-0 Yes [id number] 15mg Take 1 U nivers 15 mg 9-09 tablet by ity of tablet 00:00: mouth [place] 00 daily. [facility] Branch meloxicam 2018-0 Yes [id number] 15mg Take 1 U nivers 15 mg 9-09 tablet by ity of tablet 00:00: mouth [place] 00 daily. [facility] Branch meloxicam 2018-0 Yes [id number] 15mg Take 1 U nivers 15 mg 9-09 tablet by ity of tablet 00:00: mouth [place] 00 daily. Medical Branch meloxicam 2019-0 Yes [id number] 15mg Take 1 U nivers 15 mg 9-09 tablet by ity of tablet 00:00: mouth [place] 00 daily. Medical Branch meloxicam 2019-0 Yes [id number] 15mg Take 1 U nivers 15 mg 9-09 tablet by ity of tablet 00:00: mouth [place] 00 daily. Medical Branch cholecalcif 2018- Yes [id number] Unsure of [facility] tamika, 7-08 dose. ity of vitamin D3, 00:00: [place] 1,000 unit 00 Medical tablet Branch vitamin 2018-0 Yes [id number] 5000ug Take 5 U nivers B-12 1,000 7-08 tablets by ity of mcg tablet 00:00: mouth [place] 00 daily. Medical Branch vitamin B-1 Yes [id number] 50mg Take 1 [facility] (VITAMIN 7-08 tablet by ity of B-1) 50 mg 00:00: mouth [place] tablet 00 daily. Medical Branch cholecalcif Yes [id number] Unsure of [facility] tamika, 7-08 dose. ity of vitamin D3, 00:00: [place] 1,000 unit 00 Medical tablet Branch vitamin 2018- Yes [id number] 5000ug Take 5 U nivers B-12 1,000 7-08 tablets by ity of mcg tablet 00:00: mouth [place] 00 daily. Medical Branch vitamin B-1 Yes [id number] 50mg Take 1 [facility] (VITAMIN 7-08 tablet by ity of B-1) 50 mg 00:00: mouth [place] tablet 00 daily. Medical Branch cholecalcif Yes [id number] Unsure of [facility] tamika, 7-08 dose. ity of vitamin D3, 00:00: [place] 1,000 unit 00 Medical tablet Branch vitamin 2018- Yes [id number] 5000ug Take 5 U nivers B-12 1,000 7-08 tablets by ity of mcg tablet 00:00: mouth [place] 00 daily. Medical Branch vitamin B-1 Yes [id number] 50mg Take 1 [facility] (VITAMIN 7-08 tablet by ity of B-1) 50 mg 00:00: mouth [place] tablet 00 daily. Medical Branch cholecalcif Yes [id number] Unsure of [facility] tamika, 7-08 dose. ity of vitamin D3, 00:00: [place] 1,000 unit 00 Medical tablet Branch vitamin 2019-0 Yes [id number] 5000ug Take 5 U nivers B-12 1,000 7-08 tablets by ity of mcg tablet 00:00: mouth [place] 00 daily. Medical Branch vitamin B-1 2018- Yes [id number] 50mg Take 1 [facility] (VITAMIN 7-08 tablet by ity of B-1) 50 mg 00:00: mouth [place] tablet 00 daily. Medical Branch cholecalcif Yes [id number] Unsure of [facility] tamika, 7-08 dose. ity of vitamin D3, 00:00: [place] 1,000 unit 00 Medical tablet Branch vitamin 2019- Yes [id number] 5000ug Take 5 U nivers B-12 1,000 7-08 tablets by ity of mcg tablet 00:00: mouth [place] 00 daily. Medical Branch vitamin B-1 Yes [id number] 50mg Take 1 [facility] (VITAMIN 7-08 tablet by ity of B-1) 50 mg 00:00: mouth [place] tablet 00 daily. Medical Branch cholecalcif Yes [id number] Unsure of [facility] tamika, 7-08 dose. ity of vitamin D3, 00:00: [place] 1,000 unit 00 Medical tablet Branch vitamin 2019-0 Yes [id number] 5000ug Take 5 U nivers B-12 1,000 7-08 tablets by ity of mcg tablet 00:00: mouth [place] 00 daily. Medical Branch vitamin B-1 Yes [id number] 50mg Take 1 [facility] (VITAMIN 7-08 tablet by ity of B-1) 50 mg 00:00: mouth [place] tablet 00 daily. Medical Branch cholecalcif Yes [id number] Unsure of [facility] tamika, 7-08 dose. ity of vitamin D3, 00:00: [place] 1,000 unit 00 Medical tablet Branch vitamin 2019-0 Yes [id number] 5000ug Take 5 U nivers B-12 1,000 7-08 tablets by ity of mcg tablet 00:00: mouth [place] 00 daily. Medical Branch vitamin B-1 2018- Yes [id number] 50mg Take 1 [facility] (VITAMIN 7-08 tablet by ity of B-1) 50 mg 00:00: mouth [place] tablet 00 daily. Medical Branch cholecalcif 2018- Yes [id number] Unsure of [facility] tamika, 7-08 dose. ity of vitamin D3, 00:00: [place] 1,000 unit 00 Medical tablet Branch vitamin 2019-0 Yes [id number] 5000ug Take 5 U nivers B-12 1,000 7-08 tablets by ity of mcg tablet 00:00: mouth [place] 00 daily. Medical Branch vitamin B-1 2018- Yes [id number] 50mg Take 1 [facility] (VITAMIN 7-08 tablet by ity of B-1) 50 mg 00:00: mouth [place] tablet 00 daily. Medical Branch cholecalcif 2018- Yes [id number] Unsure of [facility] tamika, 7-08 dose. ity of vitamin D3, 00:00: [place] 1,000 unit 00 Medical tablet Branch vitamin 2018-0 Yes [id number] 5000ug Take 5 U nivers B-12 1,000 7-08 tablets by ity of mcg tablet 00:00: mouth [place] 00 daily. Medical Branch vitamin B-1 Yes [id number] 50mg Take 1 [facility] (VITAMIN 7-08 tablet by ity of B-1) 50 mg 00:00: mouth [place] tablet 00 daily. Medical Branch cholecalcif Yes [id number] Unsure of [facility] tamika, 7-08 dose. ity of vitamin D3, 00:00: [place] 1,000 unit 00 Medical tablet Branch vitamin 2019-0 Yes [id number] 5000ug Take 5 U nivers B-12 1,000 7-08 tablets by ity of mcg tablet 00:00: mouth [place] 00 daily. Medical Branch vitamin B-1 2018- Yes [id number] 50mg Take 1 [facility] (VITAMIN 7-08 tablet by ity of B-1) 50 mg 00:00: mouth [place] tablet 00 daily. Medical Branch cholecalcif 2018- Yes [id number] Unsure of [facility] tamika, 7-08 dose. ity of vitamin D3, 00:00: [place] 1,000 unit 00 Medical tablet Branch vitamin 2019-0 Yes [id number] 5000ug Take 5 U nivers B-12 1,000 7-08 tablets by ity of mcg tablet 00:00: mouth [place] 00 daily. Medical Branch vitamin B-1 2018- Yes [id number] 50mg Take 1 [facility] (VITAMIN 7-08 tablet by ity of B-1) 50 mg 00:00: mouth [place] tablet 00 daily. Medical Branch cholecalcif 2019- Yes [id number] Unsure of [facility] tamika, 7-08 dose. ity of vitamin D3, 00:00: [place] 1,000 unit 00 Medical tablet Branch vitamin 2019-0 Yes [id number] 5000ug Take 5 U nivers B-12 1,000 7-08 tablets by ity of mcg tablet 00:00: mouth [place] 00 daily. Medical Branch vitamin B-1 2018- Yes [id number] 50mg Take 1 [facility] (VITAMIN 7-08 tablet by ity of B-1) 50 mg 00:00: mouth [place] tablet 00 daily. Medical Branch cholecalcif 2018- Yes [id number] Unsure of [facility] tamika, 7-08 dose. ity of vitamin D3, 00:00: [place] 1,000 unit 00 Medical tablet Branch vitamin 2019-0 Yes [id number] 5000ug Take 5 U nivers B-12 1,000 7-08 tablets by ity of mcg tablet 00:00: mouth [place] 00 daily. Medical Branch vitamin B-1 2018- Yes [id number] 50mg Take 1 [facility] (VITAMIN 7-08 tablet by ity of B-1) 50 mg 00:00: mouth [place] tablet 00 daily. Medical Branch cholecalcif 2018- Yes [id number] Unsure of [facility] tamika, 7-08 dose. ity of vitamin D3, 00:00: [place] 1,000 unit 00 Medical tablet Branch vitamin 2019-0 Yes [id number] 5000ug Take 5 U nivers B-12 1,000 7-08 tablets by ity of mcg tablet 00:00: mouth [place] 00 daily. Medical Branch vitamin B-1 2018- Yes [id number] 50mg Take 1 [facility] (VITAMIN 7-08 tablet by ity of B-1) 50 mg 00:00: mouth [place] tablet 00 daily. Medical Branch cholecalcif 2018- Yes [id number] Unsure of [facility] tamika, 7-08 dose. ity of vitamin D3, 00:00: [place] 1,000 unit 00 Medical tablet Branch vitamin 2019-0 Yes [id number] 5000ug Take 5 U nivers B-12 1,000 7-08 tablets by ity of mcg tablet 00:00: mouth [place] 00 daily. Medical Branch vitamin B-1 Yes [id number] 50mg Take 1 [facility] (VITAMIN 7-08 tablet by ity of B-1) 50 mg 00:00: mouth [place] tablet 00 daily. Medical Branch cholecalcif Yes [id number] Unsure of [facility] tamika, 7-08 dose. ity of vitamin D3, 00:00: [place] 1,000 unit 00 Medical tablet Branch vitamin 2018- Yes [id number] 5000ug Take 5 U nivers B-12 1,000 7-08 tablets by ity of mcg tablet 00:00: mouth [place] 00 daily. Medical Branch vitamin B-1 Yes [id number] 50mg Take 1 [facility] (VITAMIN 7-08 tablet by ity of B-1) 50 mg 00:00: mouth [place] tablet 00 daily. Medical Branch cholecalcif Yes [id number] Unsure of [facility] tamika, 7-08 dose. ity of vitamin D3, 00:00: [place] 1,000 unit 00 Medical tablet Branch vitamin 2018- Yes [id number] 5000ug Take 5 U nivers B-12 1,000 7-08 tablets by ity of mcg tablet 00:00: mouth [place] 00 daily. Medical Branch vitamin B-1 Yes [id number] 50mg Take 1 [facility] (VITAMIN 7-08 tablet by ity of B-1) 50 mg 00:00: mouth [place] tablet 00 daily. Medical Branch cholecalcif Yes [id number] Unsure of [facility] tamika, 7-08 dose. ity of vitamin D3, 00:00: [place] 1,000 unit 00 Medical tablet Branch vitamin 2018- Yes [id number] 5000ug Take 5 U nivers B-12 1,000 7-08 tablets by ity of mcg tablet 00:00: mouth [place] 00 daily. Medical Branch vitamin B-1 Yes [id number] 50mg Take 1 [facility] (VITAMIN 7-08 tablet by ity of B-1) 50 mg 00:00: mouth [place] tablet 00 daily. Medical Branch cholecalcif Yes [id number] Unsure of [facility] tamika, 7-08 dose. ity of vitamin D3, 00:00: [place] 1,000 unit 00 Medical tablet Branch vitamin 2019- Yes [id number] 5000ug Take 5 U nivers B-12 1,000 7-08 tablets by ity of mcg tablet 00:00: mouth [place] 00 daily. Medical Branch vitamin B-1 Yes [id number] 50mg Take 1 [facility] (VITAMIN 7-08 tablet by ity of B-1) 50 mg 00:00: mouth [place] tablet 00 daily. Medical Branch cholecalcif 2018- Yes [id number] Unsure of [facility] tamika, 7-08 dose. ity of vitamin D3, 00:00: [place] 1,000 unit 00 Medical tablet Branch vitamin 2018-0 Yes [id number] 5000ug Take 5 U nivers B-12 1,000 7-08 tablets by ity of mcg tablet 00:00: mouth [place] 00 daily. Medical Branch vitamin B-1 Yes [id number] 50mg Take 1 [facility] (VITAMIN 7-08 tablet by ity of B-1) 50 mg 00:00: mouth [place] tablet 00 daily. Medical Branch cholecalcif Yes [id number] Unsure of [facility] tamika, 7-08 dose. ity of vitamin D3, 00:00: [place] 1,000 unit 00 Medical tablet Branch vitamin 2018- Yes [id number] 5000ug Take 5 U nivers B-12 1,000 7-08 tablets by ity of mcg tablet 00:00: mouth [place] 00 daily. Medical Branch vitamin B-1 Yes [id number] 50mg Take 1 [facility] (VITAMIN 7-08 tablet by ity of B-1) 50 mg 00:00: mouth [place] tablet 00 daily. Medical Branch turmeric Yes [id number] 1{tbl} Take 1 [facility] root 4-11 tablet by ity of extract 500 00:00: mouth [place] mg Cap 00 daily. Medical Branch turmeric Yes [id number] 1{tbl} Take 1 [facility] root 4-11 tablet by ity of extract 500 00:00: mouth [place] mg Cap 00 daily. Medical Branch turmeric Yes [id number] 1{tbl} Take 1 [facility] root 4-11 tablet by ity of extract 500 00:00: mouth [place] mg Cap 00 daily. Medical Branch turmeric Yes [id number] 1{tbl} Take 1 [facility] root 4-11 tablet by ity of extract 500 00:00: mouth [place] mg Cap 00 daily. Medical Branch turmeric Yes [id number] 1{tbl} Take 1 [facility] root 4-11 tablet by ity of extract 500 00:00: mouth [place] mg Cap 00 daily. Medical Branch turmeric Yes [id number] 1{tbl} Take 1 [facility] root 4-11 tablet by ity of extract 500 00:00: mouth [place] mg Cap 00 daily. Medical Branch turmeric Yes [id number] 1{tbl} Take 1 [facility] root 4-11 tablet by ity of extract 500 00:00: mouth [place] mg Cap 00 daily. Medical Branch turmeric Yes [id number] 1{tbl} Take 1 [facility] root 4-11 tablet by ity of extract 500 00:00: mouth [place] mg Cap 00 daily. Medical Branch turmeric Yes [id number] 1{tbl} Take 1 [facility] root 4-11 tablet by ity of extract 500 00:00: mouth [place] mg Cap 00 daily. Medical Branch turmeric Yes [id number] 1{tbl} Take 1 [facility] root 4-11 tablet by ity of extract 500 00:00: mouth [place] mg Cap 00 daily. Medical Branch turmeric Yes [id number] 1{tbl} Take 1 [facility] root 4-11 tablet by ity of extract 500 00:00: mouth [place] mg Cap 00 daily. Medical Branch turmeric Yes [id number] 1{tbl} Take 1 [facility] root 4-11 tablet by ity of extract 500 00:00: mouth [place] mg Cap 00 daily. [facility] turmeric Yes [id number] 1{tbl} Take 1 [facility] root 4-11 tablet by ity of extract 500 00:00: mouth [place] mg Cap 00 daily. [facility] turmeric Yes [id number] 1{tbl} Take 1 [facility] root 4-11 tablet by ity of extract 500 00:00: mouth [place] mg Cap 00 daily. [facility] turmeric Yes [id number] 1{tbl} Take 1 [facility] root 4-11 tablet by ity of extract 500 00:00: mouth [place] mg Cap 00 daily. [facility] turmeric Yes [id number] 1{tbl} Take 1 [facility] root 4-11 tablet by ity of extract 500 00:00: mouth [place] mg Cap 00 daily. [facility] turmeric Yes [id number] 1{tbl} Take 1 [facility] root 4-11 tablet by ity of extract 500 00:00: mouth [place] mg Cap 00 daily. [facility] turmeric Yes [id number] 1{tbl} Take 1 [facility] root 4-11 tablet by ity of extract 500 00:00: mouth [place] mg Cap 00 daily. [facility] turmeric Yes [id number] 1{tbl} Take 1 [facility] root 4-11 tablet by ity of extract 500 00:00: mouth [place] mg Cap 00 daily. [facility] turmeric Yes [id number] 1{tbl} Take 1 [facility] root 4-11 tablet by ity of extract 500 00:00: mouth [place] mg Cap 00 daily. [facility] turmeric Yes [id number] 1{tbl} Take 1 [facility] root 4-11 tablet by ity of extract 500 00:00: mouth [place] mg Cap 00 daily. [facility] Insulin Yes Check [facility] Syringes, 1-22 Fingerstic ity of Disposable, 00:00: k blood [place] as 1 mL Syrg 00 glucose Medical qid. Branch Please dispense the relion syringes. RX#[id number] 4 ICD-E11.9 Insulin Yes Check [facility] Syringes, 1-22 Fingerstic ity of Disposable, 00:00: k blood [place] as 1 mL Syrg 00 glucose Medical qid. Branch Please dispense the relion syringes. RX#[id number] 4 ICD-E11.9 Insulin Yes Check [facility] Syringes, 1-22 Fingerstic ity of Disposable, 00:00: k blood [place] as 1 mL Syrg 00 glucose Medical qid. Branch Please dispense the relion syringes. RX#[id number] 4 ICD-E11.9 Insulin Yes Check [facility] Syringes, 1-22 Fingerstic ity of Disposable, 00:00: k blood [place] as 1 mL Syrg 00 glucose Medical qid. Branch Please dispense the relion syringes. RX#[id number] 4 ICD-E11.9 Insulin 0 Yes Check [facility] Syringes, 1-22 Fingerstic ity of Disposable, 00:00: k blood [place] as 1 mL Syrg 00 glucose Medical qid. Branch Please dispense the relion syringes. RX#[id number] 4 ICD-E11.9 Insulin 2018-0 Yes Check [facility] Syringes, 1-22 Fingerstic ity of Disposable, 00:00: k blood [place] as 1 mL Syrg 00 glucose Medical qid. Branch Please dispense the relion syringes. RX#[id number] 4 ICD-E11.9 Insulin Yes Check [facility] Syringes, 1-22 Fingerstic ity of Disposable, 00:00: k blood [place] as 1 mL Syrg 00 glucose Medical qid. Branch Please dispense the relion syringes. RX#[id number] 4 ICD-E11.9 Insulin Yes Check [facility] Syringes, 1-22 Fingerstic ity of Disposable, 00:00: k blood [place] as 1 mL Syrg 00 glucose Medical qid. Branch Please dispense the relion syringes. RX#[id number] 4 ICD-E11.9 Insulin Yes Check [facility] Syringes, 1-22 Fingerstic ity of Disposable, 00:00: k blood [place] as 1 mL Syrg 00 glucose Medical qid. Branch Please dispense the relion syringes. RX#[id number] ICD-E11.9 Insulin Yes Check [facility] Syringes, 1-22 Fingerstic ity of Disposable, 00:00: k blood [place] as 1 mL Syrg 00 glucose Medical qid. Branch Please dispense the relion syringes. RX#[id number] 4 ICD-E11.9 Insulin Yes Check [facility] Syringes, 1-22 Fingerstic ity of Disposable, 00:00: k blood [place] as 1 mL Syrg 00 glucose Medical qid. Branch Please dispense the relion syringes. RX#[id number] 4 ICD-E11.9 Insulin Yes Check [facility] Syringes, 1-22 Fingerstic ity of Disposable, 00:00: k blood [place] as 1 mL Syrg 00 glucose Medical qid. Branch Please dispense the relion syringes. RX#[id number] 4 ICD-E11.9 Insulin Yes Check [facility] Syringes, 1-22 Fingerstic ity of Disposable, 00:00: k blood [place] as 1 mL Syrg 00 glucose Medical qid. Branch Please dispense the relion syringes. RX#[id number] 4 ICD-E11.9 Insulin Yes Check [facility] Syringes, 1-22 Fingerstic ity of Disposable, 00:00: k blood [place] as 1 mL Syrg 00 glucose Medical qid. Branch Please dispense the relion syringes. RX#[id number] 4 ICD-E11.9 Insulin Yes Check [facility] Syringes, 1-22 Fingerstic ity of Disposable, 00:00: k blood [place] as 1 mL Syrg 00 glucose Medical qid. Branch Please dispense the relion syringes. RX#[id number] 4 ICD-E11.9 Insulin Yes Check [facility] Syringes, 1-22 Fingerstic ity of Disposable, 00:00: k blood [place] as 1 mL Syrg 00 glucose Medical qid. Branch Please dispense the relion syringes. RX#[id number] 4 ICD-E11.9 Insulin Yes Check [facility] Syringes, 1-22 Fingerstic ity of Disposable, 00:00: k blood [place] 1 mL Syrg 00 glucose Medical qid. Branch Please dispense the relion syringes. RX#[id number] 4 ICD-E11.9 Insulin Yes Check [facility] Syringes, 1-22 Fingerstic ity of Disposable, 00:00: k blood [place] as 1 mL Syrg 00 glucose Medical qid. Branch Please dispense the relion syringes. RX#[id number] 4 ICD-E11.9 Insulin Yes Check [facility] Syringes, 1-22 Fingerstic ity of Disposable, 00:00: k blood [place] 1 mL Syrg 00 glucose Medical qid. Branch Please dispense the relion syringes. RX#[id number] 4 ICD-E11.9 Insulin Yes Check [facility] Syringes, 1-22 Fingerstic ity of Disposable, 00:00: k blood [place] as 1 mL Syrg 00 glucose Medical qid. Branch Please dispense the relion syringes. RX#[id number] 4 ICD-E11.9 Insulin Yes Check [facility] Syringes, 1-22 Fingerstic ity of Disposable, 00:00: k blood [place] 1 mL Syrg 00 glucose Medical qid. Branch Please dispense the relion syringes. RX#[id number] 4 ICD-E11.9 Lancets & 2013-0 Yes [id number] Univ ers Blood 8-12 ity of Glucose 00:00: [place] Strips (ONE 00 Medical TOUCH Branch COMBO) Cmpk Lancets & 2013-0 Yes [id number] [facility] ers Blood 8-12 ity of Glucose 00:00: [place] Strips (ONE 00 Medical TOUCH Branch COMBO) Cmpk Lancets & 2013-0 Yes [id number] [facility] ers Blood 8-12 ity of Glucose 00:00: [place] Strips (ONE 00 Medical TOUCH Branch COMBO) Cmpk Lancets & 2013-0 Yes [id number] [facility] ers Blood 8-12 ity of Glucose 00:00: [place] Strips (ONE 00 Medical TOUCH Branch COMBO) Cmpk Lancets & 2013-0 Yes [id number] Univ ers Blood 8-12 ity of Glucose 00:00: [place] Strips (ONE 00 Medical TOUCH Branch COMBO) Cmpk Lancets & 2013-0 Yes [id number] Univ ers Blood 8-12 ity of Glucose 00:00: [place] Strips (ONE 00 Medical TOUCH Branch COMBO) Cmpk Lancets & 2013-0 Yes [id number] Univ ers Blood 8-12 ity of Glucose 00:00: [place] Strips (ONE 00 Medical TOUCH Branch COMBO) Cmpk Lancets & 2013-0 Yes [id number] Univ ers Blood 8-12 ity of Glucose 00:00: [place] Strips (ONE 00 Medical TOUCH Branch COMBO) Cmpk Lancets & 2013-0 Yes [id number] Univ ers Blood 8-12 ity of Glucose 00:00: [place] Strips (ONE 00 Medical TOUCH Branch COMBO) Cmpk Lancets & 2013-0 Yes [id number] Univ ers Blood 8-12 ity of Glucose 00:00: [place] Strips ( 00 Medical TOUCH Branch COMBO) Cmpk Lancets & 2013-0 Yes [id number] Univ ers Blood 8-12 ity of Glucose 00:00: [place] Strips (ONE 00 Medical TOUCH Branch COMBO) Cmpk Lancets & 2013-0 Yes [id number] Univ ers Blood 8-12 ity of Glucose 00:00: [place] Strips (ONE 00 Medical TOUCH Branch COMBO) Cmpk Lancets & 2013-0 Yes [id number] Univ ers Blood 8-12 ity of Glucose 00:00: [place] Strips (ONE 00 Medical TOUCH Branch COMBO) Cmpk Lancets & 2013-0 Yes [id number] Univ ers Blood 8-12 ity of Glucose 00:00: [place] Strips ( 00 Medical TOUCH Branch COMBO) Cmpk Lancets & 2013-0 Yes [id number] Univ ers Blood 8-12 ity of Glucose 00:00: [place] Strips (ONE 00 Medical TOUCH Branch COMBO) Cmpk Lancets & 2013-0 Yes [id number] Univ ers Blood 8-12 ity of Glucose 00:00: [place] Strips (ONE 00 Medical TOUCH Branch COMBO) Cmpk Lancets & 2013-0 Yes [id number] Univ ers Blood 8-12 ity of Glucose 00:00: [place] Strips (ONE 00 Medical TOUCH Branch COMBO) Cmpk Lancets & 2013-0 Yes [id number] Univ ers Blood 8-12 ity of Glucose 00:00: [place] Strips (ONE 00 Medical TOUCH Branch COMBO) Cmpk Lancets & 2013-0 Yes [id number] Univ ers Blood 8-12 ity of Glucose 00:00: [place] Strips (ONE 00 Medical TOUCH Branch COMBO) Cmpk Lancets & 2013-0 Yes [id number] Univ ers Blood 8-12 ity of Glucose 00:00: [place] Strips (ONE 00 [facility]) [facility] [id number] [facility] ers Blood 8-12 ity of Glucose 00:00: [place] Strips (ONE 00 [facility] T[facility] COMBO) [facility] Yes [id number] [facility] s (CERVICAL 1-26 ity of PILLOW/COVE 00:00: [place] R[place] [facility] [place] [facility] Cushion 2011-02 Yes [id number] [facility] s (CERVICAL 1-26 ity of PILLOW/COVE 00:00: [place] R) [facility] [place] [facility] Cushion 2011-02 Yes [id number] Univer s (CERVICAL 1-26 ity of PILLOW/COVE 00:00: [place] R) [facility] [place] [facility] Cushion 2011-02 Yes [id number] Univer s (CERVICAL 1-26 ity of PILLOW/COVE 00:00: [place] R) [facility] [place] [facility] Cushion 2011-02 Yes [id number] Univer s (CERVICAL 1-26 ity of PILLOW/COVE 00:00: [place] R) [facility] [place] [facility] Cushion 2011-02 Yes [id number] [facility] s (CERVICAL 1-26 ity of PILLOW/COVE 00:00: [place] R) [facility] [place] [facility] Cushion 2011-02 Yes [id number] Univer s (CERVICAL 1-26 ity of PILLOW/COVE 00:00: [place] R) Mis 00 Medical Branch Cushion 2011-02 Yes [id number] Un[facility] s (CERVICAL 1-26 ity of PILLOW/COVE 00:00: [place] R) Mis 00 Medical Branch Cushion 2011-02 Yes [id number] Un[facility] s (CERVICAL 1-26 ity of PILLOW/COVE 00:00: [place] R) Mis 00 Medical Branch Cushion 2011-02 Yes [id number] Un[facility] s (CERVICAL 1-26 ity of PILLOW/COVE 00:00: [place] R) Mis 00 Medical Branch Cushion 2011-02 Yes [id number] Un[facility] s (CERVICAL 1-26 ity of PILLOW/COVE 00:00: [place] R) [facility] [place] [facility] Cushion 2011-02 Yes [id number] [facility] s (CERVICAL 1-26 ity of PILLOW/COVE 00:00: [place] R) [facility] [place] [facility] Cushion 2011-02 Yes [id number] Univer s (CERVICAL 1-26 ity of PILLOW/COVE 00:00: [place] R) [facility] [place] [facility] Cushion 2011-02 Yes [id number] Univer s (CERVICAL 1-26 ity of PILLOW/COVE 00:00: [place] R) Mis 00 Medical Branch Cushion 2011-02 Yes [id number] Univer s (CERVICAL 1-26 ity of PILLOW/COVE 00:00: [place] R) Mis 00 Medical Branch Cushion 2011-02 Yes [id number] Univer s (CERVICAL 1-26 ity of PILLOW/COVE 00:00: [place] R) Mis 00 Medical Branch Cushion 2011-02 Yes [id number] Univer s (CERVICAL 1-26 ity of PILLOW/COVE 00:00: [place] R) Mis 00 Medical Branch Cushion 2011-02 Yes [id number] Univer s (CERVICAL 1-26 ity of PILLOW/COVE 00:00: [place] R) Mis 00 Medical Branch Cushion 2011-02 Yes [id number] Univer s (CERVICAL 1-26 ity of PILLOW/COVE 00:00: [place] R) Mis 00 Medical Branch Cushion 2011-02 Yes [id number] Univer s (CERVICAL 1-26 ity of PILLOW/COVE 00:00: [place] R) Mis 00 Medical Branch Cushion Yes [id number] Univ s (CERVICAL 03-11 ity of PILLOW/COVE 00:00: [place] R) [facility] [place] [facility] Lantus Lantus No QD SoloStar SoloStar 100 UNIT/ML 100 UNIT/ML Zinc Zinc No Metformin Metformin No 1{table QD HCl 1000 MG HCl 1000 MG t_with_ meals} Losartan Losartan No 1{table QD Potassium Potassium t} 100 MG 100 MG hydroCHLORO hydroCHLORO No 1{table QD thiazide 50 thiazide 50 t_in_th MG MG e_morni ng} Super Super No Calcium 600 Calcium 600 + D3 + D3 Vitamin B12 Vitamin B12 No Atorvastati Atorvastati No 1{table QD n Calcium n Calcium t} 20 MG 20 MG Euthyrox Euthyrox No QD 100 MCG 100 MCG HumuLIN R HumuLIN R No TID 100 UNIT/ML 100 UNIT/ML Zinc Zinc No Euthyrox Euthyrox No QD 100 MCG 100 MCG Pyridium Pyridium No 1{table TID 200 MG 200 MG t_after _meals} Atorvastati Atorvastati No 1{table QD n Calcium n Calcium t} 20 MG 20 MG Lantus Lantus No QD SoloStar SoloStar 100 UNIT/ML 100 UNIT/ML Losartan Losartan No 1{table QD Potassium Potassium t} 100 MG 100 MG Super Super No Calcium 600 Calcium 600 + D3 + D3 Metformin Metformin No 1{table QD HCl 1000 MG HCl 1000 MG t_with_ meals} Vitamin B12 Vitamin B12 No hydroCHLORO hydroCHLORO No 1{table QD thiazide 50 thiazide 50 t_in_th MG MG e_morni ng} HumuLIN R HumuLIN R No TID 100 UNIT/ML 100 UNIT/ML Macrobid Macrobid No BID 100 MG 100 MG Vitamin B12 Vitamin B12 No Vitamin B12 Euthyrox Euthyrox No QD Euthyrox 100 MCG 100 MCG 100 MCG Pyridium Pyridium No 1{table TID Pyridium 200 MG 200 MG t_after 200 MG _meals} Atorvastati Atorvastati No 1{table QD Atorvastat n Calcium n Calcium t} in Calcium 20 MG 20 MG 20 MG Lantus Lantus No QD Lantus SoloStar SoloStar SoloStar 100 UNIT/ML 100 UNIT/ML 100 UNIT/ML Super Super No Super Calcium 600 Calcium 600 Calcium + D3 + D3 600 + D3 Zinc Zinc No Zinc hydroCHLORO hydroCHLORO No 1{table QD hydroCHLOR thiazide 50 thiazide 50 t_in_th Othiazide MG MG e_morni 50 MG ng} Macrobid Macrobid No BID Macrobid 100 MG 100 MG 100 MG Losartan Losartan No 1{table QD Losartan Potassium Potassium t} Potassium 100 MG 100 MG 100 MG HumuLIN R HumuLIN R No TID HumuLIN R 100 UNIT/ML 100 UNIT/ML 100 UNIT/ML Metformin Metformin No 1{table QD Metformin HCl 1000 MG HCl 1000 MG t_with_ HCl 1000 meals} MG Zinc Zinc No Zinc Euthyrox Euthyrox No QD Euthyrox 100 MCG 100 MCG 100 MCG Pyridium Pyridium No 1{table TID Pyridium 200 MG 200 MG t_after 200 MG _meals} Atorvastati Atorvastati No 1{table QD Atorvastat n Calcium n Calcium t} in Calcium 20 MG 20 MG 20 MG Lantus Lantus No QD Lantus SoloStar SoloStar SoloStar 100 UNIT/ML 100 UNIT/ML 100 UNIT/ML Losartan Losartan No 1{table QD Losartan Potassium Potassium t} Potassium 100 MG 100 MG 100 MG Super Super No Super Calcium 600 Calcium 600 Calcium + D3 + D3 600 + D3 Metformin Metformin No 1{table QD Metformin HCl 1000 MG HCl 1000 MG t_with_ HCl 1000 meals} MG Vitamin B12 Vitamin B12 No Vitamin B12 hydroCHLORO hydroCHLORO No 1{table QD hydroCHLOR thiazide 50 thiazide 50 t_in_th Othiazide MG MG e_morni 50 MG ng} HumuLIN R HumuLIN R No TID HumuLIN R 100 UNIT/ML 100 UNIT/ML 100 UNIT/ML Macrobid Macrobid No BID Macrobid 100 MG 100 MG 100 MG Zinc Zinc No Zinc Euthyrox Euthyrox No QD Euthyrox 100 MCG 100 MCG 100 MCG Pyridium Pyridium No 1{table TID Pyridium 200 MG 200 MG t_after 200 MG _meals} Atorvastati Atorvastati No 1{table QD Atorvastat n Calcium n Calcium t} in Calcium 20 MG 20 MG 20 MG Lantus Lantus No QD Lantus SoloStar SoloStar SoloStar 100 UNIT/ML 100 UNIT/ML 100 UNIT/ML Losartan Losartan No 1{table QD Losartan Potassium Potassium t} Potassium 100 MG 100 MG 100 MG Super Super No Super Calcium 600 Calcium 600 Calcium + D3 + D3 600 + D3 Metformin Metformin No 1{table QD Metformin HCl 1000 MG HCl 1000 MG t_with_ HCl 1000 meals} MG Vitamin B12 Vitamin B12 No Vitamin B12 hydroCHLORO hydroCHLORO No 1{table QD hydroCHLOR thiazide 50 thiazide 50 t_in_th Othiazide MG MG e_morni 50 MG ng} HumuLIN R HumuLIN R No TID HumuLIN R 100 UNIT/ML 100 UNIT/ML 100 UNIT/ML Macrobid Macrobid No BID Macrobid 100 MG 100 MG 100 MG Metformin Metformin No 1{table QD Metformin HCl 1000 MG HCl 1000 MG t_with_ HCl 1000 meals} MG Atorvastati Atorvastati No 1{table QD Atorvastat n Calcium n Calcium t} in Calcium 20 MG 20 MG 20 MG Macrobid Macrobid No BID Macrobid 100 MG 100 MG 100 MG Ciprofloxac Ciprofloxac No 1{table BID Ciprofloxa in HCl 500 in HCl 500 t} sarah HCl MG MG 500 MG Pyridium Pyridium No 1{table TID Pyridium 200 MG 200 MG t_after 200 MG _meals} Lantus Lantus No QD Lantus SoloStar SoloStar SoloStar 100 UNIT/ML 100 UNIT/ML 100 UNIT/ML Vitamin B12 Vitamin B12 No Vitamin B12 Folic Acid Folic Acid No 1{table QD Folic Acid 1 MG 1 MG t} 1 MG Losartan Losartan No 1{table QD Losartan Potassium Potassium t} Potassium 100 MG 100 MG 100 MG Zinc Zinc No Zinc Pregabalin Pregabalin No 1{capsu TID Pregabalin 300 MG 300 MG le} 300 MG Euthyrox Euthyrox No QD Euthyrox 100 MCG 100 MCG 100 MCG Super Super No Super Calcium 600 Calcium 600 Calcium + D3 + D3 600 + D3 hydroCHLORO hydroCHLORO No 1{table QD hydroCHLOR thiazide 50 thiazide 50 t_in_th Othiazide MG MG e_morni 50 MG ng} Metformin Metformin No 1{table QD Metformin HCl 1000 MG HCl 1000 MG t_with_ HCl 1000 meals} MG Atorvastati Atorvastati No 1{table QD Atorvastat n Calcium n Calcium t} in Calcium 20 MG 20 MG 20 MG Macrobid Macrobid No BID Macrobid 100 MG 100 MG 100 MG Ciprofloxac Ciprofloxac No 1{table BID Ciprofloxa in HCl 500 in HCl 500 t} sarah HCl MG MG 500 MG Pyridium Pyridium No 1{table TID Pyridium 200 MG 200 MG t_after 200 MG _meals} Lantus Lantus No QD Lantus SoloStar SoloStar SoloStar 100 UNIT/ML 100 UNIT/ML 100 UNIT/ML Vitamin B12 Vitamin B12 No Vitamin B12 Folic Acid Folic Acid No 1{table QD Folic Acid 1 MG 1 MG t} 1 MG Losartan Losartan No 1{table QD Losartan Potassium Potassium t} Potassium 100 MG 100 MG 100 MG Zinc Zinc No Zinc Pregabalin Pregabalin No 1{capsu TID Pregabalin 300 MG 300 MG le} 300 MG Euthyrox Euthyrox No QD Euthyrox 100 MCG 100 MCG 100 MCG Super Super No Super Calcium 600 Calcium 600 Calcium + D3 + D3 600 + D3 hydroCHLORO hydroCHLORO No 1{table QD hydroCHLOR thiazide 50 thiazide 50 t_in_th Othiazide MG MG e_morni 50 MG ng} Zinc Zinc No Zinc Ciprofloxac Ciprofloxac No 1{table BID Ciprofloxa in HCl 500 in HCl 500 t} sarah HCl MG MG 500 MG Pyridium Pyridium No 1{table TID Pyridium 200 MG 200 MG t_after 200 MG _meals} Macrobid Macrobid No BID Macrobid 100 MG 100 MG 100 MG Pregabalin Pregabalin No 1{capsu BID Pregabalin 300 MG 300 MG le} 300 MG Vitamin B12 Vitamin B12 No Vitamin B12 Metformin Metformin No 1{table QD Metformin HCl 1000 MG HCl 1000 MG t_with_ HCl 1000 meals} MG Atorvastati Atorvastati No 1{table QD Atorvastat n Calcium n Calcium t} in Calcium 20 MG 20 MG 20 MG Losartan Losartan No 1{table QD Losartan Potassium Potassium t} Potassium 100 MG 100 MG 100 MG Super Super No Super Calcium 600 Calcium 600 Calcium + D3 + D3 600 + D3 Lantus Lantus No QD Lantus SoloStar SoloStar SoloStar 100 UNIT/ML 100 UNIT/ML 100 UNIT/ML Euthyrox Euthyrox No QD Euthyrox 100 MCG 100 MCG 100 MCG Folic Acid Folic Acid No 1{table QD Folic Acid 1 MG 1 MG t} 1 MG hydroCHLORO hydroCHLORO No 1{table QD hydroCHLOR thiazide 50 thiazide 50 t_in_th Othiazide MG MG e_morni 50 MG ng} Zinc Zinc No Zinc Ciprofloxac Ciprofloxac No 1{table BID Ciprofloxa in HCl 500 in HCl 500 t} sarah HCl MG MG 500 MG Pyridium Pyridium No 1{table TID Pyridium 200 MG 200 MG t_after 200 MG _meals} Macrobid Macrobid No BID Macrobid 100 MG 100 MG 100 MG Pregabalin Pregabalin No 1{capsu BID Pregabalin 300 MG 300 MG le} 300 MG Vitamin B12 Vitamin B12 No Vitamin B12 Metformin Metformin No 1{table QD Metformin HCl 1000 MG HCl 1000 MG t_with_ HCl 1000 meals} MG Atorvastati Atorvastati No 1{table QD Atorvastat n Calcium n Calcium t} in Calcium 20 MG 20 MG 20 MG Losartan Losartan No 1{table QD Losartan Potassium Potassium t} Potassium 100 MG 100 MG 100 MG Super Super No Super Calcium 600 Calcium 600 Calcium + D3 + D3 600 + D3 Lantus Lantus No QD Lantus SoloStar SoloStar SoloStar 100 UNIT/ML 100 UNIT/ML 100 UNIT/ML Euthyrox Euthyrox No QD Euthyrox 100 MCG 100 MCG 100 MCG Folic Acid Folic Acid No 1{table QD Folic Acid 1 MG 1 MG t} 1 MG hydroCHLORO hydroCHLORO No 1{table QD hydroCHLOR thiazide 50 thiazide 50 t_in_th Othiazide MG MG e_morni 50 MG ng} Zinc Zinc No Zinc Ciprofloxac Ciprofloxac No 1{table BID Ciprofloxa in HCl 500 in HCl 500 t} sarah HCl MG MG 500 MG Pyridium Pyridium No 1{table TID Pyridium 200 MG 200 MG t_after 200 MG _meals} Macrobid Macrobid No BID Macrobid 100 MG 100 MG 100 MG Pregabalin Pregabalin No 1{capsu BID Pregabalin 300 MG 300 MG le} 300 MG Vitamin B12 Vitamin B12 No Vitamin B12 Metformin Metformin No 1{table QD Metformin HCl 1000 MG HCl 1000 MG t_with_ HCl 1000 meals} MG Atorvastati Atorvastati No 1{table QD Atorvastat n Calcium n Calcium t} in Calcium 20 MG 20 MG 20 MG Losartan Losartan No 1{table QD Losartan Potassium Potassium t} Potassium 100 MG 100 MG 100 MG Super Super No Super Calcium 600 Calcium 600 Calcium + D3 + D3 600 + D3 Lantus Lantus No QD Lantus SoloStar SoloStar SoloStar 100 UNIT/ML 100 UNIT/ML 100 UNIT/ML Euthyrox Euthyrox No QD Euthyrox 100 MCG 100 MCG 100 MCG Folic Acid Folic Acid No 1{table QD Folic Acid 1 MG 1 MG t} 1 MG hydroCHLORO hydroCHLORO No 1{table QD hydroCHLOR thiazide 50 thiazide 50 t_in_th Othiazide MG MG e_morni 50 MG ng} Zinc Zinc No Zinc Ciprofloxac Ciprofloxac No 1{table BID Ciprofloxa in HCl 500 in HCl 500 t} sarah HCl MG MG 500 MG Pyridium Pyridium No 1{table TID Pyridium 200 MG 200 MG t_after 200 MG _meals} Macrobid Macrobid No BID Macrobid 100 MG 100 MG 100 MG Pregabalin Pregabalin No 1{capsu BID Pregabalin 300 MG 300 MG le} 300 MG Vitamin B12 Vitamin B12 No Vitamin B12 Metformin Metformin No 1{table QD Metformin HCl 1000 MG HCl 1000 MG t_with_ HCl 1000 meals} MG Atorvastati Atorvastati No 1{table QD Atorvastat n Calcium n Calcium t} in Calcium 20 MG 20 MG 20 MG Losartan Losartan No 1{table QD Losartan Potassium Potassium t} Potassium 100 MG 100 MG 100 MG Super Super No Super Calcium 600 Calcium 600 Calcium + D3 + D3 600 + D3 Lantus Lantus No QD Lantus SoloStar SoloStar SoloStar 100 UNIT/ML 100 UNIT/ML 100 UNIT/ML Euthyrox Euthyrox No QD Euthyrox 100 MCG 100 MCG 100 MCG Folic Acid Folic Acid No 1{table QD Folic Acid 1 MG 1 MG t} 1 MG hydroCHLORO hydroCHLORO No 1{table QD hydroCHLOR thiazide 50 thiazide 50 t_in_th Othiazide MG MG e_morni 50 MG ng} Zinc Zinc No Zinc Ciprofloxac Ciprofloxac No 1{table BID Ciprofloxa in HCl 500 in HCl 500 t} sarah HCl MG MG 500 MG Pyridium Pyridium No 1{table TID Pyridium 200 MG 200 MG t_after 200 MG _meals} Macrobid Macrobid No BID Macrobid 100 MG 100 MG 100 MG Pregabalin Pregabalin No 1{capsu BID Pregabalin 300 MG 300 MG le} 300 MG Vitamin B12 Vitamin B12 No Vitamin B12 Metformin Metformin No 1{table QD Metformin HCl 1000 MG HCl 1000 MG t_with_ HCl 1000 meals} MG Atorvastati Atorvastati No 1{table QD Atorvastat n Calcium n Calcium t} in Calcium 20 MG 20 MG 20 MG Losartan Losartan No 1{table QD Losartan Potassium Potassium t} Potassium 100 MG 100 MG 100 MG Super Super No Super Calcium 600 Calcium 600 Calcium + D3 + D3 600 + D3 Lantus Lantus No QD Lantus SoloStar SoloStar SoloStar 100 UNIT/ML 100 UNIT/ML 100 UNIT/ML Euthyrox Euthyrox No QD Euthyrox 100 MCG 100 MCG 100 MCG Folic Acid Folic Acid No 1{table QD Folic Acid 1 MG 1 MG t} 1 MG hydroCHLORO hydroCHLORO No 1{table QD hydroCHLOR thiazide 50 thiazide 50 t_in_th Othiazide MG MG e_morni 50 MG ng} Macrobid Macrobid No BID Macrobid 100 MG 100 MG 100 MG Pregabalin Pregabalin No 1{capsu QD Pregabalin 300 MG 300 MG le} 300 MG Metformin Metformin No 1{table QD Metformin HCl 1000 MG HCl 1000 MG t_with_ HCl 1000 meals} MG hydroCHLORO hydroCHLORO No 1{table QD hydroCHLOR thiazide 50 thiazide 50 t_in_th Othiazide MG MG e_morni 50 MG ng} Lantus Lantus No QD Lantus SoloStar SoloStar SoloStar 100 UNIT/ML 100 UNIT/ML 100 UNIT/ML Atorvastati Atorvastati No 1{table QD Atorvastat n Calcium n Calcium t} in Calcium 20 MG 20 MG 20 MG Pyridium Pyridium No 1{table TID Pyridium 200 MG 200 MG t_after 200 MG _meals} Vitamin B12 Vitamin B12 No Vitamin B12 Losartan Losartan No 1{table QD Losartan Potassium Potassium t} Potassium 100 MG 100 MG 100 MG Ciprofloxac Ciprofloxac No 1{table BID Ciprofloxa in HCl 500 in HCl 500 t} sarah HCl MG MG 500 MG Super Super No Super Calcium 600 Calcium 600 Calcium + D3 + D3 600 + D3 Euthyrox Euthyrox No QD Euthyrox 125 MCG 125 MCG 125 MCG Zinc Zinc No Zinc Macrobid Macrobid No BID Macrobid 100 MG 100 MG 100 MG Pregabalin Pregabalin No 1{capsu QD Pregabalin 300 MG 300 MG le} 300 MG Metformin Metformin No 1{table QD Metformin HCl 1000 MG HCl 1000 MG t_with_ HCl 1000 meals} MG hydroCHLORO hydroCHLORO No 1{table QD hydroCHLOR thiazide 50 thiazide 50 t_in_th Othiazide MG MG e_morni 50 MG ng} Lantus Lantus No QD Lantus SoloStar SoloStar SoloStar 100 UNIT/ML 100 UNIT/ML 100 UNIT/ML Atorvastati Atorvastati No 1{table QD Atorvastat n Calcium n Calcium t} in Calcium 20 MG 20 MG 20 MG Pyridium Pyridium No 1{table TID Pyridium 200 MG 200 MG t_after 200 MG _meals} Vitamin B12 Vitamin B12 No Vitamin B12 Losartan Losartan No 1{table QD Losartan Potassium Potassium t} Potassium 100 MG 100 MG 100 MG Ciprofloxac Ciprofloxac No 1{table BID Ciprofloxa in HCl 500 in HCl 500 t} sarah HCl MG MG 500 MG Super Super No Super Calcium 600 Calcium 600 Calcium + D3 + D3 600 + D3 Euthyrox Euthyrox No QD Euthyrox 125 MCG 125 MCG 125 MCG Zinc Zinc No Zinc Macrobid Macrobid No BID Macrobid 100 MG 100 MG 100 MG Pregabalin Pregabalin No 1{capsu QD Pregabalin 300 MG 300 MG le} 300 MG Metformin Metformin No 1{table QD Metformin HCl 1000 MG HCl 1000 MG t_with_ HCl 1000 meals} MG hydroCHLORO hydroCHLORO No 1{table QD hydroCHLOR thiazide 50 thiazide 50 t_in_th Othiazide MG MG e_morni 50 MG ng} Lantus Lantus No QD Lantus SoloStar SoloStar SoloStar 100 UNIT/ML 100 UNIT/ML 100 UNIT/ML Atorvastati Atorvastati No 1{table QD Atorvastat n Calcium n Calcium t} in Calcium 20 MG 20 MG 20 MG Pyridium Pyridium No 1{table TID Pyridium 200 MG 200 MG t_after 200 MG _meals} Vitamin B12 Vitamin B12 No Vitamin B12 Losartan Losartan No 1{table QD Losartan Potassium Potassium t} Potassium 100 MG 100 MG 100 MG Ciprofloxac Ciprofloxac No 1{table BID Ciprofloxa in HCl 500 in HCl 500 t} sarah HCl MG MG 500 MG Super Super No Super Calcium 600 Calcium 600 Calcium + D3 + D3 600 + D3 Euthyrox Euthyrox No QD Euthyrox 125 MCG 125 MCG 125 MCG Zinc Zinc No Zinc Macrobid Macrobid No BID Macrobid 100 MG 100 MG 100 MG hydroCHLORO hydroCHLORO No 1{table QD hydroCHLOR thiazide 50 thiazide 50 t_in_th Othiazide MG MG e_morni 50 MG ng} Lantus Lantus No QD Lantus SoloStar SoloStar SoloStar 100 UNIT/ML 100 UNIT/ML 100 UNIT/ML Metformin Metformin No 1{table QD Metformin HCl 1000 MG HCl 1000 MG t_with_ HCl 1000 meals} MG Atorvastati Atorvastati No 1{table QD Atorvastat n Calcium n Calcium t} in Calcium 20 MG 20 MG 20 MG Pyridium Pyridium No 1{table TID Pyridium 200 MG 200 MG t_after 200 MG _meals} Vitamin B12 Vitamin B12 No Vitamin B12 Losartan Losartan No 1{table QD Losartan Potassium Potassium t} Potassium 100 MG 100 MG 100 MG Ciprofloxac Ciprofloxac No 1{table BID Ciprofloxa in HCl 500 in HCl 500 t} sarah HCl MG MG 500 MG Super Super No Super Calcium 600 Calcium 600 Calcium + D3 + D3 600 + D3 Euthyrox Euthyrox No QD Euthyrox 125 MCG 125 MCG 125 MCG Zinc Zinc No Zinc Furosemide Furosemide No 1{table QD Furosemide 20 MG 20 MG t} 20 MG Zinc Zinc No Zinc Atorvastati Atorvastati No 1{table QD Atorvastat n Calcium n Calcium t} in Calcium 20 MG 20 MG 20 MG Ciprofloxac Ciprofloxac No 1{table BID Ciprofloxa in HCl 500 in HCl 500 t} sarah HCl MG MG 500 MG Pyridium Pyridium No 1{table TID Pyridium 200 MG 200 MG t_after 200 MG _meals} Macrobid Macrobid No BID Macrobid 100 MG 100 MG 100 MG Vitamin B12 Vitamin B12 No Vitamin B12 Lantus Lantus No QD Lantus SoloStar SoloStar SoloStar 100 UNIT/ML 100 UNIT/ML 100 UNIT/ML Folic Acid Folic Acid No 1{table QD Folic Acid 1 MG 1 MG t} 1 MG Losartan Losartan No 1{table QD Losartan Potassium Potassium t} Potassium 100 MG 100 MG 100 MG Metformin Metformin No 1{table BID Metformin HCl 1000 MG HCl 1000 MG t_with_ HCl 1000 meals} MG Super Super No Super Calcium 600 Calcium 600 Calcium + D3 + D3 600 + D3 hydroCHLORO hydroCHLORO No 1{table QD hydroCHLOR thiazide 50 thiazide 50 t_in_th Othiazide MG MG e_morni 50 MG ng} Euthyrox Euthyrox No QD Euthyrox 125 MCG 125 MCG 125 MCG Furosemide Furosemide No 1{table QD Furosemide 20 MG 20 MG t} 20 MG Metformin Metformin No 1{table BID Metformin HCl 1000 MG HCl 1000 MG t_with_ HCl 1000 meals} MG Pyridium Pyridium No 1{table TID Pyridium 200 MG 200 MG t_after 200 MG _meals} Macrobid Macrobid No BID Macrobid 100 MG 100 MG 100 MG Ciprofloxac Ciprofloxac No 1{table BID Ciprofloxa in HCl 500 in HCl 500 t} sarah HCl MG MG 500 MG Vitamin B12 Vitamin B12 No Vitamin B12 Zinc Zinc No Zinc Atorvastati Atorvastati No 1{table QD Atorvastat n Calcium n Calcium t} in Calcium 20 MG 20 MG 20 MG Losartan Losartan No 1{table QD Losartan Potassium Potassium t} Potassium 100 MG 100 MG 100 MG hydroCHLORO hydroCHLORO No 1{table QD hydroCHLOR thiazide 50 thiazide 50 t_in_th Othiazide MG MG e_morni 50 MG ng} Super Super No Super Calcium 600 Calcium 600 Calcium + D3 + D3 600 + D3 Folic Acid Folic Acid No 1{table QD Folic Acid 1 MG 1 MG t} 1 MG Euthyrox Euthyrox No QD Euthyrox 125 MCG 125 MCG 125 MCG Pyridium Pyridium No 1{table TID Pyridium 200 MG 200 MG t_after 200 MG _meals} Ciprofloxac Ciprofloxac No 1{table BID Ciprofloxa in HCl 500 in HCl 500 t} sarah HCl MG MG 500 MG Euthyrox Euthyrox No QD Euthyrox 125 MCG 125 MCG 125 MCG Metformin Metformin No 1{table BID Metformin HCl 1000 MG HCl 1000 MG t_with_ HCl 1000 meals} MG Lantus Lantus No QD Lantus SoloStar SoloStar SoloStar 100 UNIT/ML 100 UNIT/ML 100 UNIT/ML Losartan Losartan No 1{table QD Losartan Potassium Potassium t} Potassium 100 MG 100 MG 100 MG Zinc Zinc No Zinc Vitamin B12 Vitamin B12 No Vitamin B12 Atorvastati Atorvastati No 1{table QD Atorvastat n Calcium n Calcium t} in Calcium 20 MG 20 MG 20 MG Macrobid Macrobid No BID Macrobid 100 MG 100 MG 100 MG Super Super No Super Calcium 600 Calcium 600 Calcium + D3 + D3 600 + D3 Furosemide Furosemide No 1{table QD Furosemide 20 MG 20 MG t} 20 MG hydroCHLORO hydroCHLORO No 1{table QD hydroCHLOR thiazide 50 thiazide 50 t_in_th Othiazide MG MG e_morni 50 MG ng} metFORMIN metFORMIN No metFORMIN HCl 1000 MG HCl 1000 MG HCl 1000 MG Folic Acid Folic Acid No 1{table QD Folic Acid 1 MG 1 MG t} 1 MG Pyridium Pyridium No 1{table TID Pyridium 200 MG 200 MG t_after 200 MG _meals} Ciprofloxac Ciprofloxac No 1{table BID Ciprofloxa in HCl 500 in HCl 500 t} sarah HCl MG MG 500 MG Euthyrox Euthyrox No QD Euthyrox 125 MCG 125 MCG 125 MCG Metformin Metformin No 1{table BID Metformin HCl 1000 MG HCl 1000 MG t_with_ HCl 1000 meals} MG Lantus Lantus No QD Lantus SoloStar SoloStar SoloStar 100 UNIT/ML 100 UNIT/ML 100 UNIT/ML Losartan Losartan No 1{table QD Losartan Potassium Potassium t} Potassium 100 MG 100 MG 100 MG Zinc Zinc No Zinc Vitamin B12 Vitamin B12 No Vitamin B12 Atorvastati Atorvastati No 1{table QD Atorvastat n Calcium n Calcium t} in Calcium 20 MG 20 MG 20 MG Macrobid Macrobid No BID Macrobid 100 MG 100 MG 100 MG Super Super No Super Calcium 600 Calcium 600 Calcium + D3 + D3 600 + D3 Furosemide Furosemide No 1{table QD Furosemide 20 MG 20 MG t} 20 MG hydroCHLORO hydroCHLORO No 1{table QD hydroCHLOR thiazide 50 thiazide 50 t_in_th Othiazide MG MG e_morni 50 MG ng} metFORMIN metFORMIN No metFORMIN HCl 1000 MG HCl 1000 MG HCl 1000 MG Folic Acid Folic Acid No 1{table QD Folic Acid 1 MG 1 MG t} 1 MG Pyridium Pyridium No 1{table TID Pyridium 200 MG 200 MG t_after 200 MG _meals} Ciprofloxac Ciprofloxac No 1{table BID Ciprofloxa in HCl 500 in HCl 500 t} sarah HCl MG MG 500 MG Euthyrox Euthyrox No QD Euthyrox 125 MCG 125 MCG 125 MCG Metformin Metformin No 1{table BID Metformin HCl 1000 MG HCl 1000 MG t_with_ HCl 1000 meals} MG Lantus Lantus No QD Lantus SoloStar SoloStar SoloStar 100 UNIT/ML 100 UNIT/ML 100 UNIT/ML Losartan Losartan No 1{table QD Losartan Potassium Potassium t} Potassium 100 MG 100 MG 100 MG Zinc Zinc No Zinc Vitamin B12 Vitamin B12 No Vitamin B12 Atorvastati Atorvastati No 1{table QD Atorvastat n Calcium n Calcium t} in Calcium 20 MG 20 MG 20 MG Macrobid Macrobid No BID Macrobid 100 MG 100 MG 100 MG Super Super No Super Calcium 600 Calcium 600 Calcium + D3 + D3 600 + D3 Furosemide Furosemide No 1{table QD Furosemide 20 MG 20 MG t} 20 MG hydroCHLORO hydroCHLORO No 1{table QD hydroCHLOR thiazide 50 thiazide 50 t_in_th Othiazide MG MG e_morni 50 MG ng} metFORMIN metFORMIN No metFORMIN HCl 1000 MG HCl 1000 MG HCl 1000 MG Folic Acid Folic Acid No 1{table QD Folic Acid 1 MG 1 MG t} 1 MG Losartan Losartan No 1{table QD Losartan Potassium Potassium t} Potassium 100 MG 100 MG 100 MG Super Super No Super Calcium 600 Calcium 600 Calcium + D3 + D3 600 + D3 hydroCHLORO hydroCHLORO No 1{table QD hydroCHLOR thiazide 50 thiazide 50 t_in_th Othiazide MG MG e_morni 50 MG ng} Zinc Zinc No Zinc Pyridium Pyridium No 1{table TID Pyridium 200 MG 200 MG t_after 200 MG _meals} Macrobid Macrobid No BID Macrobid 100 MG 100 MG 100 MG Metformin Metformin No 1{table BID Metformin HCl 1000 MG HCl 1000 MG t_with_ HCl 1000 meals} MG Lantus Lantus No QD Lantus SoloStar SoloStar SoloStar 100 UNIT/ML 100 UNIT/ML 100 UNIT/ML Atorvastati Atorvastati No 1{table QD Atorvastat n Calcium n Calcium t} in Calcium 20 MG 20 MG 20 MG Folic Acid Folic Acid No 1{table QD Folic Acid 1 MG 1 MG t} 1 MG Vitamin B12 Vitamin B12 No Vitamin B12 metFORMIN metFORMIN No metFORMIN HCl 1000 MG HCl 1000 MG HCl 1000 MG Ciprofloxac Ciprofloxac No 1{table BID Ciprofloxa in HCl 500 in HCl 500 t} sarah HCl MG MG 500 MG Furosemide Furosemide No 1{table QD Furosemide 20 MG 20 MG t} 20 MG Euthyrox Euthyrox No QD Euthyrox 125 MCG 125 MCG 125 MCG HumuLIN HumuLIN No TID HumuLIN 70/30 70/30 70/30 KwikPen KwikPen KwikPen (70-30) 100 (70-30) 100 (70-30) UNIT/ML UNIT/ML 100 UNIT/ML Euthyrox Euthyrox No QD Euthyrox 100 MCG 100 MCG 100 MCG Super Super No Super Calcium 600 Calcium 600 Calcium + D3 + D3 600 + D3 Atorvastati Atorvastati No 1{table QD Atorvastat n Calcium n Calcium t} in Calcium 20 MG 20 MG 20 MG Losartan Losartan No 1{table QD Losartan Potassium Potassium t} Potassium 100 MG 100 MG 100 MG hydroCHLORO hydroCHLORO No 1{table QD hydroCHLOR thiazide 50 thiazide 50 t_in_th Othiazide MG MG e_morni 50 MG ng} Pregabalin Pregabalin No 1{capsu TID Pregabalin 300 MG 300 MG le} 300 MG Zinc Zinc No Zinc Lantus Lantus No QD Lantus SoloStar SoloStar SoloStar 100 UNIT/ML 100 UNIT/ML 100 UNIT/ML Vitamin B12 Vitamin B12 No Vitamin B12 Metformin Metformin No 1{table QD Metformin HCl 1000 MG HCl 1000 MG t_with_ HCl 1000 meals} MG Lantus Lantus No QD Lantus SoloStar SoloStar SoloStar 100 UNIT/ML 100 UNIT/ML 100 UNIT/ML Zinc Zinc No Zinc Metformin Metformin No 1{table QD Metformin HCl 1000 MG HCl 1000 MG t_with_ HCl 1000 meals} MG Losartan Losartan No 1{table QD Losartan Potassium Potassium t} Potassium 100 MG 100 MG 100 MG hydroCHLORO hydroCHLORO No 1{table QD hydroCHLOR thiazide 50 thiazide 50 t_in_th Othiazide MG MG e_morni 50 MG ng} Super Super No Super Calcium 600 Calcium 600 Calcium + D3 + D3 600 + D3 Vitamin B12 Vitamin B12 No Vitamin B12 Atorvastati Atorvastati No 1{table QD Atorvastat n Calcium n Calcium t} in Calcium 20 MG 20 MG 20 MG Euthyrox Euthyrox No QD Euthyrox 100 MCG 100 MCG 100 MCG HumuLIN R HumuLIN R No TID HumuLIN R 100 UNIT/ML 100 UNIT/ML 100 UNIT/ML Folic Acid Folic Acid No 1{table QD Folic Acid 1 MG 1 MG 06-12 t} 1 MG 00:00 :00 Folic Acid Folic Acid 2021- No 1{table QD Folic Acid 1 MG 1 MG 0612 t} 1 MG 00:00 :00 Folic Acid Folic Acid 2021- No 1{table QD Folic Acid 1 MG 1 MG 0612 t} 1 MG 00:00 :00 Folic Acid Folic Acid 2021- No 1{table QD Folic Acid 1 MG 1 MG 0612 t} 1 MG 00:00 :00 Immunizations Ordered Filled Immunization Date Status Comments [facility] e Immunization Name Name FluAD FluAD 2020-12-14 Completed [facility] - 08:30:00 [facility] FluAD FluAD 2020-12-14 Completed [facility] - 08:30:00 [facility] FluAD FluAD 2020-12-14 Completed [facility] - 08:30:00 [facility] FluAD FluAD 2020-12-14 Completed [facility] - 08:30:00 [facility] FluAD FluAD 2020-12-14 Completed [facility] - 08:30:00 [facility] FluAD FluAD 2020-12-14 Completed [facility] - 08:30:00 [facility] FluAD FluAD 2020-12-14 Completed [facility] - 08:30:00 [facility] FluAD FluAD 2020-12-14 Completed [facility] - 08:30:00 [facility] FluAD FluAD 2020-12-14 Completed [facility] - 08:30:00 [facility] FluAD FluAD 2020-12-14 Completed [facility] - 08:30:00 [facility] FluAD FluAD 2020-12-14 Completed [facility] - 08:30:00 [facility] FluAD FluAD 2020-12-14 Completed [facility] - 08:30:00 [facility] FluAD FluAD 2020-12-14 Completed [facility] - 08:30:00 [facility] FluAD FluAD 2020-12-14 Completed [facility] - 08:30:00 [facility] FluAD FluAD 2020-12-14 Completed [facility] - 08:30:00 [facility] FluAD FluAD 2020-12-14 Completed [facility] - 08:30:00 [facility] FluAD FluAD 2020-12-14 Completed [facility] - 08:30:00 [facility] FluAD FluAD 2020-12-14 Completed [facility] - 08:30:00 [facility] FluAD FluAD 2020-12-14 Completed [facility] - 08:30:00 [facility] FluAD FluAD 2020-12-14 Completed [facility] - 08:30:00 [facility] FluAD FluAD 2020-12-14 Completed [facility] - 08:30:00 [facility] FluAD FluAD 2020-12-14 Completed [facility] - 08:30:00 [facility] FluAD FluAD 2020-12-14 Completed [facility] - 08:30:00 [facility] SARS-COV-2 COVID-19 2020-04-12 Completed [facility] PFIZER VACCINE 00:00:00 [facility] SARS-COV-2 COVID-19 2020-04-12 Completed [facility] PFIZER VACCINE 00:00:00 [facility] SARS-COV-2 COVID-19 2020-04-12 Completed [facility] PFIZER VACCINE 00:00:00 [facility] SARS-COV-2 COVID-19 2020-04-12 Completed [facility] PFIZER VACCINE 00:00:00 [facility] SARS-COV-2 COVID-19 2020-04-12 Completed [facility] PFIZER VACCINE 00:00:00 [facility] SARS-COV-2 COVID-19 2020-04-12 Completed [facility] PFIZER VACCINE 00:00:00 [facility] SARS-COV-2 COVID-19 2020-04-12 Completed [facility] PFIZER VACCINE 00:00:00 [facility] SARS-COV-2 COVID-19 2020-04-12 Completed [facility] PFIZER VACCINE 00:00:00 [facility] SARS-COV-2 COVID-19 2020-04-12 Completed [facility] PFIZER VACCINE 00:00:00 [facility] SARS-COV-2 COVID-19 2020-04-12 Completed [facility] PFIZER VACCINE 00:00:00 [facility] SARS-COV-2 COVID-19 2020-04-12 Completed [facility] PFIZER VACCINE 00:00:00 [facility] SARS-COV-2 COVID-19 2020-04-12 Completed [facility] PFIZER VACCINE 00:00:00 [facility] SARS-COV-2 COVID-19 2020-04-12 Completed [facility] PFIZER VACCINE 00:00:00 [facility] SARS-COV-2 COVID-19 2020-04-12 Completed [facility] PFIZER VACCINE 00:00:00 [facility] SARS-COV-2 COVID-19 2020-04-12 Completed [facility] PFIZER VACCINE 00:00:00 [facility] SARS-COV-2 COVID-19 2020-04-12 Completed [facility] PFIZER VACCINE 00:00:00 [facility] SARS-COV-2 COVID-19 2020-04-12 Completed [facility] PFIZER VACCINE 00:00:00 [facility] SARS-COV-2 COVID-19 2020-04-12 Completed [facility] PFIZER VACCINE 00:00:00 [facility] SARS-COV-2 COVID-19 2020-04-12 Completed [facility] PFIZER VACCINE 00:00:00 [facility] SARS-COV-2 COVID-19 2020-04-12 Completed [facility] PFIZER VACCINE 00:00:00 [facility] SARS-COV-2 COVID-19 2020-04-12 Completed [facility] PFIZER VACCINE 00:00:00 [facility] SARS-COV-2 COVID-19 2020-03-15 Completed [facility] PFIZER VACCINE 00:00:00 [facility] SARS-COV-2 COVID-19 2020-03-15 Completed [facility] PFIZER VACCINE 00:00:00 [facility] SARS-COV-2 COVID-19 2020-03-15 Completed [facility] PFIZER VACCINE 00:00:00 [facility] SARS-COV-2 COVID-19 2020-03-15 Completed [facility] PFIZER VACCINE 00:00:00 [facility] SARS-COV-2 COVID-19 2020-03-15 Completed [facility] PFIZER VACCINE 00:00:00 [facility] SARS-COV-2 COVID-19 2020-03-15 Completed [facility] PFIZER VACCINE 00:00:00 [facility] SARS-COV-2 COVID-19 2020-03-15 Completed [facility] PFIZER VACCINE 00:00:00 [facility] SARS-COV-2 COVID-19 2020-03-15 Completed [facility] PFIZER VACCINE 00:00:00 [facility] SARS-COV-2 COVID-19 2020-03-15 Completed [facility] PFIZER VACCINE 00:00:00 [facility] SARS-COV-2 COVID-19 2020-03-15 Completed [facility] PFIZER VACCINE 00:00:00 [facility] SARS-COV-2 COVID-19 2020-03-15 Completed [facility] PFIZER VACCINE 00:00:00 [facility] SARS-COV-2 COVID-19 2020-03-15 Completed [facility] PFIZER VACCINE 00:00:00 [facility] SARS-COV-2 COVID-19 2020-03-15 Completed [facility] PFIZER VACCINE 00:00:00 [facility] SARS-COV-2 COVID-19 2020-03-15 Completed [facility] PFIZER VACCINE 00:00:00 [facility] SARS-COV-2 COVID-19 2020-03-15 Completed [facility] PFIZER VACCINE 00:00:00 [facility] SARS-COV-2 COVID-19 2020-03-15 Completed [facility] PFIZER VACCINE 00:00:00 [facility] SARS-COV-2 COVID-19 2020-03-15 Completed [facility] PFIZER VACCINE 00:00:00 [facility] SARS-COV-2 COVID-19 2020-03-15 Completed [facility] PFIZER VACCINE 00:00:00 [facility] SARS-COV-2 COVID-19 2020-03-15 Completed [facility] PFIZER VACCINE 00:00:00 [facility] SARS-COV-2 COVID-19 2020-03-15 Completed [facility] PFIZER VACCINE 00:00:00 [facility] SARS-COV-2 COVID-19 2020-03-15 Completed [facility] PFIZER VACCINE 00:00:00 [facility] Zoster Vaccine 2018-11-13 Completed [facility] Recombinant 00:00:00 [facility] Zoster Vaccine 2018-11-13 Completed [facility] Recombinant 00:00:00 [facility] Zoster Vaccine 2018-11-13 Completed [facility] Recombinant 00:00:00 [facility] Zoster Vaccine 2018-11-13 Completed [facility] Recombinant 00:00:00 [facility] Zoster Vaccine 2018-11-13 Completed [facility] Recombinant 00:00:00 [facility] Zoster Vaccine 2018-11-13 Completed [facility] Recombinant 00:00:00 [facility] Zoster Vaccine 2018-11-13 Completed [facility] Recombinant 00:00:00 [facility] Zoster Vaccine 2018-11-13 Completed [facility] Recombinant 00:00:00 [facility] Zoster Vaccine 2018-11-13 Completed [facility] Recombinant 00:00:00 [facility] Zoster Vaccine 2018-11-13 Completed [facility] Recombinant 00:00:00 [facility] Zoster Vaccine 2018-11-13 Completed [facility] Recombinant 00:00:00 [facility] Zoster Vaccine 2018-11-13 Completed [facility] Recombinant 00:00:00 [facility] Zoster Vaccine 2018-11-13 Completed [facility] Recombinant 00:00:00 [facility] Zoster Vaccine 2018-11-13 Completed [facility] Recombinant 00:00:00 [facility] Zoster Vaccine 2018-11-13 Completed [facility] Recombinant 00:00:00 [facility] Zoster Vaccine 2018-11-13 Completed [facility] Recombinant 00:00:00 [facility] Zoster Vaccine 2018-11-13 Completed [facility] Recombinant 00:00:00 [facility] Zoster Vaccine 2018-11-13 Completed [facility] Recombinant 00:00:00 [facility] Zoster Vaccine 2018-11-13 Completed [facility] Recombinant 00:00:00 [facility] Zoster Vaccine 2018-11-13 Completed [facility] Recombinant 00:00:00 [facility] Zoster Vaccine 2018-11-13 Completed [facility] Recombinant 00:00:00 [facility] Influenza Virus 2018-11-10 Completed [facility] Vaccine 00:00:00 [facility] Influenza Virus 2018-11-10 Completed [facility] Vaccine 00:00:00 [facility] Influenza Virus 2018-11-10 Completed [facility] Vaccine 00:00:00 [facility] Influenza Virus 2018-11-10 Completed [facility] Vaccine 00:00:00 [facility] Influenza Virus 2018-11-10 Completed [facility] Vaccine 00:00:00 [facility] Influenza Virus 2018-11-10 Completed [facility] Vaccine 00:00:00 [facility] Influenza Virus 2018-11-10 Completed [facility] Vaccine 00:00:00 [facility] Influenza Virus 2018-11-10 Completed [facility] Vaccine 00:00:00 [facility] Influenza Virus 2018-11-10 Completed [facility] Vaccine 00:00:00 [facility] Influenza Virus 2018-11-10 Completed [facility] Vaccine 00:00:00 [facility] Influenza Virus 2018-11-10 Completed [facility] Vaccine 00:00:00 [facility] Influenza Virus 2018-11-10 Completed [facility] Vaccine 00:00:00 [facility] Influenza Virus 2018-11-10 Completed [facility] Vaccine 00:00:00 [facility] Influenza Virus 2018-11-10 Completed [facility] Vaccine 00:00:00 [facility] Influenza Virus 2018-11-10 Completed [facility] Vaccine 00:00:00 [facility] Influenza Virus 2018-11-10 Completed [facility] Vaccine 00:00:00 [facility] Influenza Virus 2018-11-10 Completed [facility] Vaccine 00:00:00 [facility] Influenza Virus 2018-11-10 Completed [facility] Vaccine 00:00:00 [facility] Influenza Virus 2018-11-10 Completed [facility] Vaccine 00:00:00 [facility] Influenza Virus 2018-11-10 Completed [facility] Vaccine 00:00:00 [facility] Influenza Virus 2018-11-10 Completed [facility] Vaccine 00:00:00 [facility] Zoster Vaccine 2018-09-12 Completed [facility] Recombinant 00:00:00 [facility] Zoster Vaccine 2018-09-12 Completed [facility] Recombinant 00:00:00 [facility] Zoster Vaccine 2018-09-12 Completed [facility] Recombinant 00:00:00 [facility] Zoster Vaccine 2018-09-12 Completed [facility] Recombinant 00:00:00 [facility] Zoster Vaccine 2018-09-12 Completed [facility] Recombinant 00:00:00 [facility] Zoster Vaccine 2018-09-12 Completed [facility] Recombinant 00:00:00 [facility] Zoster Vaccine 2018-09-12 Completed [facility] Recombinant 00:00:00 [facility] Zoster Vaccine 2018-09-12 Completed [facility] Recombinant 00:00:00 [facility] Zoster Vaccine 2018-09-12 Completed [facility] Recombinant 00:00:00 [facility] Zoster Vaccine 2018-09-12 Completed [facility] Recombinant 00:00:00 [facility] Zoster Vaccine 2018-09-12 Completed [facility] Recombinant 00:00:00 [facility] Zoster Vaccine 2018-09-12 Completed [facility] Recombinant 00:00:00 [facility] Zoster Vaccine 2018-09-12 Completed University of Recombinant 00:00:00 [facility] Zoster Vaccine 2018-09-12 Completed University of Recombinant 00:00:00 [facility] Zoster Vaccine 2018-09-12 Completed University of Recombinant 00:00:00 [facility] Zoster Vaccine 2018-09-12 Completed University of Recombinant 00:00:00 [facility] Zoster Vaccine 2018-09-12 Completed University of Recombinant 00:00:00 [facility] Zoster Vaccine 2018-09-12 Completed University of Recombinant 00:00:00 [facility] Zoster Vaccine 2018-09-12 Completed University of Recombinant 00:00:00 [facility] Zoster Vaccine 2018-09-12 Completed University of Recombinant 00:00:00 [facility] Zoster Vaccine 2018-09-12 Completed University of Recombinant 00:00:00 [facility] Influenza Virus 2017-10-28 Completed Universit y of Vaccine - Whole 00:00:00 [facility] Influenza Virus 2017-10-28 Completed Universit y of Vaccine - Whole 00:00:00 [facility] Influenza Virus 2017-10-28 Completed Universit y of Vaccine - Whole 00:00:00 [facility] Influenza Virus 2017-10-28 Completed Universit y of Vaccine - Whole 00:00:00 [facility] Influenza Virus 2017-10-28 Completed Universit y of Vaccine - Whole 00:00:00 [facility] Influenza Virus 2017-10-28 Completed Universit y of Vaccine - Whole 00:00:00 [facility] Influenza Virus 2017-10-28 Completed Universit y of Vaccine - Whole 00:00:00 [facility] Influenza Virus 2017-10-28 Completed Universit y of Vaccine - Whole 00:00:00 [facility] Influenza Virus 2017-10-28 Completed Universit y of Vaccine - Whole 00:00:00 [facility] Influenza Virus 2017-10-28 Completed Universit y of Vaccine - Whole 00:00:00 [facility] Influenza Virus 2017-10-28 Completed Universit y of Vaccine - Whole 00:00:00 [facility] Influenza Virus 2017-10-28 Completed Universit y of Vaccine - Whole 00:00:00 [facility] Influenza Virus 2017-10-28 Completed Universit y of Vaccine - Whole 00:00:00 [facility] Influenza Virus 2017-10-28 Completed Universit y of Vaccine - Whole 00:00:00 [facility] Influenza Virus 2017-10-28 Completed Universit y of Vaccine - Whole 00:00:00 [facility] Influenza Virus 2017-10-28 Completed Universit y of Vaccine - Whole 00:00:00 [facility] Influenza Virus 2017-10-28 Completed Universit y of Vaccine - Whole 00:00:00 [facility] Influenza Virus 2017-10-28 Completed Universit y of Vaccine - Whole 00:00:00 [facility] Influenza Virus 2017-10-28 Completed Universit y of Vaccine - Whole 00:00:00 [facility] Influenza Virus 2017-10-28 Completed Universit y of Vaccine - Whole 00:00:00 [facility] Influenza Virus 2017-10-28 Completed Universit y of Vaccine - Whole 00:00:00 [facility] Influenza High Dose 2015-11-21 Completed Unive rsity of 00:00:00 [facility] Influenza High Dose 2015-11-21 Completed Unive rsity of 00:00:00 [facility] Influenza High Dose 2015-11-21 Completed Unive rsity of 00:00:00 [facility] Influenza High Dose 2015-11-21 Completed Unive rsity of 00:00:00 [facility] Influenza High Dose 2015-11-21 Completed Unive rsity of 00:00:00 [facility] Influenza High Dose 2015-11-21 Completed Unive rsity of 00:00:00 [facility] Influenza High Dose 2015-11-21 Completed Unive rsity of 00:00:00 [facility] Influenza High Dose 2015-11-21 Completed Unive rsity of 00:00:00 [facility] Influenza High Dose 2015-11-21 Completed Unive rsity of 00:00:00 [facility] Influenza High Dose 2015-11-21 Completed Unive rsity of 00:00:00 [facility] Influenza High Dose 2015-11-21 Completed Unive rsity of 00:00:00 [facility] Influenza High Dose 2015-11-21 Completed Unive rsity of 00:00:00 [facility] Influenza High Dose 2015-11-21 Completed Unive rsity of 00:00:00 [facility] Influenza High Dose 2015-11-21 Completed Unive rsity of 00:00:00 [facility] Influenza High Dose 2015-11-21 Completed Unive rsity of 00:00:00 [facility] Influenza High Dose 2015-11-21 Completed Unive rsity of 00:00:00 [facility] Influenza High Dose 2015-11-21 Completed Unive rsity of 00:00:00 [facility] Influenza High Dose 2015-11-21 Completed Unive rsity of 00:00:00 [facility] Influenza High Dose 2015-11-21 Completed Unive rsity of 00:00:00 [facility] Influenza High Dose 2015-11-21 Completed Unive rsity of 00:00:00 [facility] Influenza High Dose 2015-11-21 Completed Unive rsity of 00:00:00 [facility] Pneumococcal 2014-05-31 Completed University o f [...] Dose 2013-11-09 Completed Unive rsity of 00:00:00 [facility] Branch Influenza High Dose 2013-11-09 Completed Unive rsity of 00:00:00 [facility] Influenza High Dose 2013-11-09 Completed Unive rsity of 00:00:00 [facility] Influenza High Dose 2013-11-09 Completed Unive rsity of 00:00:00 [facility] Influenza High Dose 2013-11-09 Completed Unive rsity of 00:00:00 [facility] Influenza High Dose 2013-11-09 Completed Unive rsity of 00:00:00 [facility] Influenza High Dose 2013-11-09 Completed Unive rsity of 00:00:00 [facility] Influenza High Dose 2013-11-09 Completed Unive rsity of 00:00:00 [facility] Influenza High Dose 2013-11-09 Completed Unive rsity of 00:00:00 [facility] Influenza High Dose 2013-11-09 Completed Unive rsity of 00:00:00 [facility] Influenza High Dose 2013-11-09 Completed Unive rsity of 00:00:00 [facility] Influenza High Dose 2013-11-09 Completed Unive rsity of 00:00:00 [facility] Influenza High Dose 2013-11-09 Completed Unive rsity of 00:00:00 [facility] Influenza High Dose 2013-11-09 Completed Unive rsity of 00:00:00 [facility] Influenza High Dose 2013-11-09 Completed Unive rsity of 00:00:00 [facility] Influenza High Dose 2013-11-09 Completed Unive rsity of 00:00:00 [facility] Influenza High Dose 2013-11-09 Completed Unive rsity of 00:00:00 [facility] Influenza High Dose 2013-11-09 Completed Unive rsity of 00:00:00 [facility] Influenza High Dose 2013-11-09 Completed Unive rsity of 00:00:00 [facility] Influenza High Dose 2013-11-09 Completed Unive rsity of 00:00:00 [facility] Influenza High Dose 2013-11-09 Completed Unive rsity of 00:00:00 [facility] Pneumococcal 7 2012-11-29 Completed University of Conjugate, PCV7 00:00:00 [place] [facility] (Pre[facility]ar[facility] Pneumococcal 7 2012-11-29 Completed University of Conjugate, PCV7 00:00:00 [place] [facility] (Prevnar7) [facility] Pneumococcal 7 2012-11-29 [...] PCV7 00:00:00 [place] [facility] (Pre[facility] 7 2012-11-29 Completed University of Conjugate, PCV7 00:00:00 [facility] ical (Prevnar7) Branch [facility] 2012-01-10 Completed University of 00:00:00 [facility] Zoster(Zostavax)( 2012-01-10 Completed Unive rsity of ingles) 00:00:00 [facility] 2012-01-10 Completed University of 00:00:00 [facility] Zoster(Zostavax)( 2012-01-10 Completed Unive rsity of ingles) 00:00:00 [facility] 2012-01-10 Completed University of 00:00:00 [facility] Zoster(Zostavax)( 2012-01-10 Completed Unive rsity of ingles) 00:00:00 [facility] 2012-01-10 Completed University of 00:00:00 [facility] Zoster(Zostavax)( 2012-01-10 Completed Unive rsity of ingles) 00:00:00 [facility] 2012-01-10 Completed University of 00:00:00 [facility] Zoster(Zostavax)( 2012-01-10 Completed Unive rsity of ingles) 00:00:00 [facility] 2012-01-10 Completed University of 00:00:00 [facility] Zoster(Zostavax)( 2012-01-10 Completed Unive rsity of ingles) 00:00:00 [facility] 2012-01-10 Completed University of 00:00:00 [facility] Zoster(Zostavax)( 2012-01-10 Completed Unive rsity of ingles) 00:00:00 [facility] 2012-01-10 Completed University of 00:00:00 [facility] Zoster(Zostavax)( 2012-01-10 Completed Unive rsity of ingles) 00:00:00 [facility] 2012-01-10 Completed University of 00:00:00 [facility] Zoster(Zostavax)( 2012-01-10 Completed Unive rsity of ingles) 00:00:00 [facility] 2012-01-10 Completed University of 00:00:00 [facility] Zoster(Zostavax)( 2012-01-10 Completed Unive rsity of ingles) 00:00:00 [facility] 2012-01-10 Completed University of 00:00:00 [facility] Zoster(Zostavax)( 2012-01-10 Completed Unive rsity of ingles) 00:00:00 [facility] 2012-01-10 Completed University of 00:00:00 [facility] Zoster(Zostavax)( 2012-01-10 Completed Unive rsity of ingles) 00:00:00 [facility] 2012-01-10 Completed University of 00:00:00 [facility] Zoster(Zostavax)( 2012-01-10 Completed Unive rsity of ingles) 00:00:00 [facility] 2012-01-10 Completed University of 00:00:00 [facility] Zoster(Zostavax)( 2012-01-10 Completed Unive rsity of ingles) 00:00:00 [facility] 2012-01-10 Completed University of 00:00:00 [facility] Zoster(Zostavax)( 2012-01-10 Completed Unive rsity of ingles) 00:00:00 [facility] 2012-01-10 Completed University of 00:00:00 [facility] Zoster(Zostavax)( 2012-01-10 Completed Unive rsity of ingles) 00:00:00 [facility] 2012-01-10 Completed University of 00:00:00 [facility] Zoster(Zostavax)( 2012-01-10 Completed Unive rsity of ingles) 00:00:00 [facility] 2012-01-10 Completed University of 00:00:00 [facility] Zoster(Zostavax)( 2012-01-10 Completed Unive rsity of ingles) 00:00:00 [facility] 2012-01-10 Completed University of 00:00:00 [facility] Zoster(Zostavax)( 2012-01-10 Completed Unive rsity of ingles) 00:00:00 [facility] 2012-01-10 Completed University of 00:00:00 [facility] Zoster(Zostavax)( 2012-01-10 Completed Unive rsity of laurita) 00:00:00 [facility] TDAP 2012-01-10 Completed University of 00:00:00 [facility] Zoster(Zostavax)(Sh 2012-01-10 Completed Unive rsity of laurita) 00:00:00 [facility] Influenza Virus 2011-12-16 Completed Universit y of Vaccine 00:00:00 [facility] Influenza Virus 2011-12-16 Completed Universit y of Vaccine 00:00:00 [facility] Influenza Virus 2011-12-16 Completed Universit y of Vaccine 00:00:00 [facility] Influenza Virus 2011-12-16 Completed Universit y of Vaccine 00:00:00 [facility] Influenza Virus 2011-12-16 Completed Universit y of Vaccine 00:00:00 [facility] Influenza Virus 2011-12-16 Completed Universit y of Vaccine 00:00:00 [facility] Influenza Virus 2011-12-16 Completed Universit y of Vaccine 00:00:00 [facility] Influenza Virus 2011-12-16 Completed Universit y of Vaccine 00:00:00 [facility] Influenza Virus 2011-12-16 Completed Universit y of Vaccine 00:00:00 [facility] Influenza Virus 2011-12-16 Completed Universit y of Vaccine 00:00:00 [facility] Influenza Virus 2011-12-16 Completed Universit y of Vaccine 00:00:00 [facility] Influenza Virus 2011-12-16 Completed Universit y of Vaccine 00:00:00 [facility] Influenza Virus 2011-12-16 Completed Universit y of Vaccine 00:00:00 [facility] Influenza Virus 2011-12-16 Completed Universit y of Vaccine 00:00:00 [facility] Influenza Virus 2011-12-16 Completed Universit y of Vaccine 00:00:00 [facility] Influenza Virus 2011-12-16 Completed Universit y of Vaccine 00:00:00 [facility] Influenza Virus 2011-12-16 Completed Universit y of Vaccine 00:00:00 [facility] Influenza Virus 2011-12-16 Completed Universit y of Vaccine 00:00:00 [facility] Influenza Virus 2011-12-16 Completed Universit y of Vaccine 00:00:00 [facility] Influenza Virus 2011-12-16 Completed Universit y of Vaccine 00:00:00 [facility] Influenza Virus 2011-12-16 Completed Universit y of Vaccine 00:00:00 [facility] Influenza Virus 2008-11-18 Completed Universit y of Vaccine 00:00:00 [facility] Influenza Virus 2008-11-18 Completed Universit y of Vaccine 00:00:00 [facility] Influenza Virus 2008-11-18 Completed Universit y of Vaccine 00:00:00 [facility] Influenza Virus 2008-11-18 Completed Universit y of Vaccine 00:00:00 [facility] Influenza Virus 2008-11-18 Completed Universit y of Vaccine 00:00:00 [facility] Influenza Virus 2008-11-18 Completed Universit y of Vaccine 00:00:00 [facility] Influenza Virus 2008-11-18 Completed Universit y of Vaccine 00:00:00 [facility] Influenza Virus 2008-11-18 Completed Universit y of Vaccine 00:00:00 [facility] Influenza Virus 2008-11-18 Completed Universit y of Vaccine 00:00:00 [facility] Influenza Virus 2008-11-18 Completed Universit y of Vaccine 00:00:00 [facility] Influenza Virus 2008-11-18 Completed Universit y of Vaccine 00:00:00 [facility] Influenza Virus 2008-11-18 Completed Universit y of Vaccine 00:00:00 [facility] Influenza Virus 2008-11-18 Completed Universit y of Vaccine 00:00:00 [facility] Influenza Virus 2008-11-18 Completed Universit y of Vaccine 00:00:00 [facility] Influenza Virus 2008-11-18 Completed Universit y of Vaccine 00:00:00 [facility] Influenza Virus 2008-11-18 Completed Universit y of Vaccine 00:00:00 [facility] Influenza Virus 2008-11-18 Completed Universit y of Vaccine 00:00:00 [facility] Influenza Virus 2008-11-18 Completed Universit y of Vaccine 00:00:00 [facility] Influenza Virus 2008-11-18 Completed Universit y of Vaccine 00:00:00 [facility] Influenza Virus 2008-11-18 Completed Universit y of Vaccine 00:00:00 [facility] Influenza Virus 2008-11-18 Completed Universit y of Vaccine 00:00:00 [facility] Pneumococcal 7 2007-03-13 Completed University of Conjugate, PCV7 00:00:00 [place] [facility] (Prevnar7) [place] Pneumococcal 7 2007-03-13 Completed University of Conjugate, [...] 2007-03-13 Completed University of Conjugate, PCV7 00:00:00 [place] [facility] (Prevnar7) [facility] Pneumococcal 7 2007-03-13 Completed University of Conjugate, PCV7 00:00:00 [place] [facility] (Prevnar7) [facility] Vital Signs Vital Name Observation Time Observation Value Comments Source Systolic blood 2022-06-23 17:57:00 126 mm[Hg] Univer sity of pressure [facility] Diastolic blood 2022-06-23 17:57:00 65 mm[Hg] Unive rsity of pressure [facility] Heart rate 2022-06-23 17:57:00 84 /min Universi ty of [facility] Body temperature 2022-06-23 17:57:00 36.72 [place] Univ ersity [facility] Respiratory rate 2022-06-23 17:57:00 16 /min Univ ersity of [facility] Body height 2022-06-23 17:57:00 149.9 cm Universi ty of [facility] Body weight 2022-06-23 17:57:00 65.137 kg Universi ty of [facility] BMI 2022-06-23 17:57:00 29.00 kg/m2 Universi ty of [facility] Oxygen saturation in 2022-06-23 17:57:00 95 /min [facility] Arterial blood by [facility] Pulse oximetry Branch Systolic blood 2022-03-03 17:12:00 109 mm[Hg] Univer sity of pressure [facility] Diastolic blood 2022-03-03 17:12:00 67 mm[Hg] Unive rsity of pressure [facility] Heart rate 2022-03-03 17:12:00 95 /min Universi ty of [facility] Body temperature 2022-03-03 17:12:00 36.89 [place] Univ ersity of [facility] Respiratory rate 2022-03-03 17:12:00 18 /min Univ ersity of [facility] Body height 2022-03-03 17:12:00 149.9 cm Universi ty of [facility] Body weight 2022-03-03 17:12:00 63.912 kg Universi ty of [facility] BMI 2022-03-03 17:12:00 28.46 kg/m2 Universi ty of [facility] Oxygen saturation in 2022-03-03 17:12:00 98 /min University of Arterial blood by [facility] charito Pulse oximetry Branch Systolic blood 2022-01-06 19:11:00 102 mm[Hg] Univer sity of pressure [facility] Diastolic blood 2022-01-06 19:11:00 61 mm[Hg] Unive rsity of pressure [facility] Heart rate 2022-01-06 19:11:00 101 /min Universi ty of [facility] Body temperature 2022-01-06 19:11:00 36.83 [place] Univ ersity of [facility] Respiratory rate 2022-01-06 19:11:00 16 /min Univ ersity of [facility] Body height 2022-01-06 19:11:00 149.9 cm Universi ty of [facility] Body weight 2022-01-06 19:11:00 62.279 kg Universi ty of [facility] BMI 2022-01-06 19:11:00 27.73 kg/m2 Universi ty of [facility] Oxygen saturation in 2022-01-06 19:11:00 95 /min University of Arterial blood by [facility] Pulse oximetry Branch Systolic blood 2021-12-15 18:56:00 115 mm[Hg] Univer sity of pressure [facility] Diastolic blood 2021-12-15 18:56:00 65 mm[Hg] Unive rsity of pressure [facility] Heart rate 2021-12-15 18:56:00 98 /min Universi ty of [facility] Body temperature 2021-12-15 18:56:00 36.89 [place] Univ ersity of [facility] Body height 2021-12-15 18:56:00 149.9 cm Universi ty of [facility] Body weight 2021-12-15 18:56:00 64.229 kg Universi ty of [place] [facility] BMI 2021-12-15 18:56:00 28.60 kg/m2 Universi ty of [facility] Oxygen saturation in 2021-12-15 18:56:00 97 /min University of Arterial blood by [facility] charito Pulse oximetry Branch Systolic blood 2021-12-09 18:11:00 127 mm[Hg] Univer sity of pressure [facility] Diastolic blood 2021-12-09 18:11:00 77 mm[Hg] Unive rsity of pressure [facility] Heart rate 2021-12-09 18:11:00 87 /min [facility]i ty [facility] [place] [facility] [place] Body temperature 2021-12-09 18:11:00 37 [place] Univ ersity of [facility] Respiratory rate 2021-12-09 18:11:00 18 /min Univ ersity of [facility] Body height 2021-12-09 18:11:00 149.9 cm Universi ty of [place] [facility] [place] Body weight 2021-12-09 18:11:00 64.184 kg Universi ty of [facility] BMI 2021-12-09 18:11:00 28.58 kg/m2 Universi ty of [facility] Oxygen saturation in 2021-12-09 18:11:00 98 /min University of Arterial blood by [facility] Pulse oximetry Branch Systolic blood 2021-11-11 18:21:00 110 mm[Hg] Univer sity of [facility] Diastolic blood 2021-11-11 18:21:00 64 mm[Hg] Unive rsity of pressure [facility] [place] Heart rate 2021-11-11 18:21:00 103 /min Universi ty of [facility] Body temperature 2021-11-11 18:21:00 36.94 [place] Univ ersity of [facility] [place] Respiratory rate 2021-11-11 18:21:00 18 /min Univ ersity of [facility] Body height 2021-11-11 18:21:00 149.9 cm Universi ty of [place] [facility] [place] Body weight 2021-11-11 18:21:00 63.594 kg [facility]i ty of [place] [facility] [place] BMI 2021-11-11 18:21:00 28.32 kg/m2 Universi ty of [facility] Oxygen saturation in 2021-11-11 18:21:00 97 /min University of Arterial blood by [facility] Pulse oximetry Branch height 2021-10-27 10:50:00 59.5 [in_i] [facility] weight 2021-10-27 10:50:00 142.5 [lb_av] [facility] temperature 2021-10-27 10:50:00 97.4 [degF] [facility] bmi 2021-10-27 10:50:00 28.3 kg/m2 Common [facility] oximetry 2021-10-27 10:50:00 94 % Common [facility] respiratory rate 2021-10-27 10:50:00 16 /min Comm [facility] blood pressure 2021-10-27 10:50:00 115 mm[Hg] Common [facility] - systolic [facility] blood pressure 2021-10-27 10:50:00 57 mm[Hg] Common [facility] - diastolic [facility] Systolic blood 2021-10-14 20:05:00 146 mm[Hg] Univer sity of [facility] Diastolic blood 2021-10-14 20:05:00 77 mm[Hg] Unive rsity [facility] Heart rate 2021-10-14 20:05:00 86 /min [facility] Body temperature 2021-10-14 20:05:[address] [facility] rate 2021-10-14 20:05:00 18 /min [facility] Body height 2021-10-14 20:05:00 149.9 cm [facility] Body weight 2021-10-14 20:05:00 64.547 kg [facility] BMI 2021-10-14 20:05:00 28.74 kg/m2 [facility] Oxygen saturation in 2021-10-14 20:05:00 98 /min [facility] Arterial blood by [facility] Pulse oximetry Branch height 2021-07-24 10:50:00 59 [in_i] Common [facility] weight 2021-07-24 10:50:00 148.2 [lb_av] Common [facility] temperature 2021-07-24 10:50:00 98.1 [degF] Common [facility] bmi 2021-07-24 10:50:00 29.93 kg/m2 [facility] oximetry 2021-07-24 10:50:00 100 % Common [facility] respiratory rate 2021-07-24 10:50:00 18 /min Comm on [facility] blood pressure 2021-07-24 10:50:00 120 mm[Hg] Common [facility] - systolic [facility] blood pressure 2021-07-24 10:50:00 57 mm[Hg] Common [facility] - diastolic [facility] height 2021-04-27 13:30:00 59 [in_i] Common [facility] weight 2021-04-27 13:30:00 161.0 [lb_av] Common [facility] temperature 2021-04-27 13:30:00 97.3 [degF] Common [facility] bmi 2021-04-27 13:30:00 32.51 kg/m2 [facility] oximetry 2021-04-27 13:30:00 97 % [facility] respiratory rate 2021-04-27 13:30:00 17 /min Comm on [facility] blood pressure 2021-04-27 13:30:00 111 mm[Hg] Common [facility] - systolic [facility] blood pressure 2021-04-27 13:30:00 50 mm[Hg] Common [facility] - diastolic [facility] height 2021-04-27 13:40:00 59 [in_i] [facility] weight 2021-04-27 13:40:00 161 [lb_av] Common S [facility] temperature 2021-04-27 13:40:00 97.3 [degF] Common S [facility] bmi 2021-04-27 13:40:00 32.51 kg/m2 Common [facility] oximetry 2021-04-27 13:40:00 97 % [facility] respiratory rate 2021-04-27 13:40:00 17 /min Comm on [facility] blood pressure 2021-04-27 13:40:00 111 mm[Hg] Common [facility] - systolic [facility] blood pressure 2021-04-27 13:40:00 50 mm[Hg] Common [facility] - diastolic [facility] height 2021-03-26 14:00:00 59 [in_i] Common [facility] weight 2021-03-26 14:00:00 164.4 [lb_av] Common [facility] temperature 2021-03-26 14:00:00 96.8 [degF] Common [facility] bmi 2021-03-26 14:00:00 33.2 kg/m2 Common S [facility] oximetry 2021-03-26 14:00:00 98 % Common S [facility] respiratory rate 2021-03-26 14:00:00 18 /min Comm on [facility] blood pressure 2021-03-26 14:00:00 108 mm[Hg] Common [facility] - systolic [facility] blood pressure 2021-03-26 14:00:00 52 mm[Hg] Common [facility] - diastolic [facility] height 2021-03-10 13:30:00 59 [in_i] Common S [facility] weight 2021-03-10 13:30:00 158 [lb_av] [facility] S [facility] temperature 2021-03-10 13:30:00 97.0 [degF] Common [facility] bmi 2021-03-10 13:30:00 31.91 kg/m2 Common [facility] oximetry 2021-03-10 13:30:00 98 % [facility] 2021-03-10 13:30:00 18 /min Comm on [facility] blood pressure 2021-03-10 13:30:00 126 mm[Hg] Common [facility] - systolic [facility] blood pressure 2021-03-10 13:30:00 71 mm[Hg] Common [facility] - diastolic [facility] height 2021-01-23 09:00:00 59 [in_i] [facility] weight 2021-01-23 09:00:00 158.8 [lb_av] Common [facility] temperature 2021-01-23 09:00:00 97.2 [degF] [facility] bmi 2021-01-23 09:00:00 32.07 kg/m2 [facility] oximetry 2021-01-23 09:00:00 98 % [facility] respiratory rate 2021-01-23 09:00:00 17 /min Comm on [facility] blood pressure 2021-01-23 09:00:00 131 mm[Hg] Common [facility] systolic [facility] blood pressure 2021-01-23 09:00:00 59 mm[Hg] Common [facility] diastolic [facility] Procedures Procedure Date / Time Performing Clinician Source Performed [facility] PATIENT FINANCIAL 2022-04-28 14:33:31 Doctor Unassigned, No [facility] URINALYSIS MICROSCOPIC 2021-11-11 19:24:00 Alpa Godfrey [facility] URINE CULTURE 2021-11-11 19:24:00 Alpa Godfrey [facility] ASSIGNMENT OF BENEFITS 2021-11-11 18:03:09 Doctor Unassigned, No General acute hospital REFERRAL- 2021-11-03 05:01:00 Doctor Unassigned, No [facility] REQUEST/RESPONSE [facility] Encounters Start End Encounter Admission Attending Care Care Encounter Source Date/Time Date/Time Type Type Clinicians Facility Department ID 2022-01-22 Outpatient Gallo, STLMLC STLC [id number] Common 11:14:02 Roland [id number] [facility] 2021-04-16 Outpatient Gallo, STLMLC STLC [id number] Common 17:04:01 Roland [facility] 2021-04-09 Outpatient Gallo, STLMLC STLMLC [id number] Common 09:00:02 Roland [facility] 2021-04-08 Outpatient Gallo, STLMLC [facility] [id number] Common 15:59:02 Roland [facility] 2021-03-30 Outpatient Gallo, STLMLC [facility] [id number] Common 08:52:01 Roland [facility] 2021-03-26 Outpatient Gallo, STLMLC STLC [id number] Common 13:28:02 Roland [facility] 2021-03-11 Outpatient Gallo, STLMLC [facility] [id number] Common 14:40:07 Roland [facility] 2021-03-11 Outpatient Gallo, STLC [facility] [id number] Common 14:16:28 Roland [facility] 2021-03-11 Outpatient Gallo, [facility] [id number] Common 14:11:10 Roland [facility] 2021-03-11 [facility] [id number] Common 14:10:16 Roland [id number] [facility] 2020-12-16 Outpatient Jordyn LAN [facility] OPH [id number] Univers 05:02:12 [facility] 2020-12-15 Outpatient EDYTARUST OPH [id number] Univers 19:17:29 KHOI [facility] 2022-07-21 2022-07-21 Outpatient R [facility] [id number] Univers 10:00:00 [facility] 2022-06-23 Office [facility] 1.2.840.114 [id number] Univers 13:00:00 13:15:00 Visit [facility] [id number] it y of [place] 4.2.7.2.686 [facility] [id number] [address] OFFICE BUILDING 2022-06-23 2022-06-23 Outpatient [facility] [id number] Univers 13:00:00 13:00:00 [facility] 2022-05-26 2022-05-26 Outpatient [facility] [id number] Univers 14:00:00 14:00:00 BILAL ity [facility] 2022-05-26 2022-05-26 Nurse Nurse, [facility] Urology [facility] 1.2.840 .114 [id number] Univers 14:00:00 14:00:00 Visit Alpa Godfrey HEALTH 350.1.13.10 [place] [id number] [address] OFFICE BUILDING 2022-04-28 2022-04-28 Outpatient [facility] [id number] Univers 10:00:00 10:04:15 BILAL ity [facility] 2022-04-28 2022-04-28 Nurse Nurse, [facility] 1.2.840 .114 [id number] Univers 10:00:00 10:04:15 Visit Alpa Godfrey HEALTH 350.1.13.10 [place] [id number] [address] OFFICE BUILDING 2022-04-28 2022-04-28 Orders Doctor NAE 1.2.840.114 [id number] Univers 00:00:00 00:00:00 Only Unassigned, JESUS 350.1.13.10 ity of [place] [facility] 4.2.7.2.686 Kyle as [id number] [address] 2022-03-31 2022-03-31 Nurse Nurse, [facility] 1.2.840 .114 [id number] Univers 10:30:00 11:00:00 Visit Unknown, Attending HEALTH 350.1.13.10 ity of Alpa Godfrey [place] 4.2.7.2.686 [place] [id number] [address] OFFICE BUILDING 2022-03-31 2022-03-31 Outpatient R EPIFANIO [facility] [id number] Univers 10:30:00 10:30:00 BILAL ity [facility] 2022-03-03 2022-03-03 Nurse Nurse, Melani Denise [facility] 1.2.840. 114 [id number] Univers 11:00:00 11:18:57 Visit Alpa Godfrey HEALTH 350.1.13.10 [place] [id number] [address] OFFICE BUILDING 2022-03-03 2022-03-03 Outpatient R EPIFANIO [facility] [id number] Univers 11:00:00 11:00:00 BILAL ity [facility] 2022-02-03 2022-02-03 Nurse Nurse, Melani Denise [facility] 1.2.840. 114 [id number] Univers 13:00:00 13:57:24 [facility] 350.1.13.10 [place] of [place] [id number] [address] OFFICE [facility] 2022-02-03 2022-02-03 Outpatient R [facility] [id number] Univers 13:00:00 13:00:00 ESTRELLA ity [facility] 2022-02-02 2022-02-02 Outpatient R JAMAR LEMUS [facility] [id number] Univers 13:00:00 13:00:00 ity of [facility] 2022-01-06 2022-01-06 Nurse Nurse, Melani Denise [facility] 1.2.840. 114 [id number] Univers 13:00:00 13:58:14 Visit Epifanio [facility] 350.1.13.10 it[place] of [place] [id number] [address] OFFICE [facility] 2022-01-06 2022-01-06 Outpatient R EPIFANIO [facility] [id number] Univers 13:00:00 13:00:00 [facility] 2021-12-15 2021-12-15 Office EsauRUST 1.2.840.114 [id number] Univers 14:30:00 14:45:00 Visit [facility] [id number] it y of [place] [facility] 4.2.7.2.686 Kyle as CENTER - [id number] Med [address] 2021-12-15 2021-12-15 Outpatient R ESAU [facility] [id number] Univers 14:30:00 14:30:00 FAUSTINO itbenita [facility] 2021-12-09 2021-12-09 Outpatient R EPIFANIO [facility] [id number] Univers 13:00:00 13:50:42 BILAL ity [facility] 2021-12-09 2021-12-09 Nurse Nurse, Melani Denise [facility] 1.2.840. 114 [id number] Univers 13:00:00 13:50:42 Visit Cayetano Godfreyct HEALTH 350.1.13.10 it[place] of [place] [id number] [address] OFFICE [facility] 2021-12-09 2021-12-09 Telephone Epifanio [facility] 1.2.974.208 [id number] Univers 00:00:00 00:00:00 Bilal HEALTH 350.1.13.10 it [place] [id number] [facility] [address] OFFICE BUILDING 2021-12-03 2021-12-03 (TEL) STLC STLMLC [id number] Co mmon 00:00:00 00:00:00 [facility] 2021-11-16 2021-11-16 Telephone Epifanio [facility] 1.2.834.301 [id number] Univers 00:00:00 00:00:00 Bilal HEALTH 350.1.13.10 it [place] [id number] [facility] [address] OFFICE BUILDING 2021-11-11 2021-11-11 Nurse Nurse, Melani Denise [facility] 1.2.840. 114 [id number] Univers 13:00:00 15:58:43 Visit Cayetano Godfreyct HEALTH 350.1.13.10 [place] [id number] [address] OFFICE BUILDING 2021-11-11 2021-11-11 Outpatient Jordyn GODFREY [facility] [id number] Univers 13:00:00 13:00:00 BILAL ity [facility] 2021-11-11 2021-11-11 Orders Doctor NAE 1.2.840.114 [id number] Univers 00:00:00 00:00:00 Only Unassigned, JESUS 350.1.13.10 ity of [place] [facility] 4.2.7.2.686 Kyle as [id number] [address] 2021-11-03 2021-11-03 Orders Doctor NAE 1.2.840.114 [id number] Univers 00:00:00 00:00:00 Only Unassigned, JESUS 350.1.13.10 ity of [place] [facility] 4.2.7.2.686 Kyle as [id number] [address] 2021-11-02 2021-11-02 (TEL) STLMLC STLMLC [id number] Co mmon 00:00:00 00:00:00 [facility] 2021-10-27 2021-10-27 OFFICE [facility] [id number] Co mmon 00:00:00 00:00:00 VISIT [facility] LEVEL [address] [facility] 2021-10-27 2021-10-27 (TEL) STLMLC STLMLC [id number] Co mmon 00:00:00 00:00:00 [facility] 2021-10-14 2021-10-14 Office [facility] 1.2.840.114 [id number] Univers 16:45:00 16:45:00 Visit [facility] 350.1.13.10 it y of [place]2.[place].2.686 [place] [facility] [id number] [facility] [address] OFFICE BUILDING 2021-10-14 2021-10-14 Outpatient [facility] [id number] Univers 16:45:00 15:48:20 BILAL ity [facility] 2021-10-14 2021-10-14 Outpatient [facility] [id number] Univers 16:45:00 15:48:20 BILAL ity [facility] 2021-09-28 2021-09-28 Telephone IVY Smith 1.2.840.114 [id number] Univers 00:00:00 00:00:00 Estrella HEALTH 350.1.13.10 i ty of [place] [id number] [address] 2021-09-16 2021-09-16 Nurse Nurse, Melani Denise [facility] 1.2.840. 114 [id number] Univers 15:30:00 16:00:[address] [facility] 350.1.13.10 [place] [id number] [address] OFFICE BUILDING 2021-09-16 2021-09-16 Outpatient Jordyn SMITH [facility] [id number] Univers 15:30:00 15:30:00 [facility] 2021-09-16 2021-09-16 [facility] [id number] Univers 15:30:00 15:30:00 [facility] 2021-09-14 2021-09-14 Outpatient TENA [facility] [address]64 [place] 00:00:00 00:00:00 HN 0801 da [facility] 2021-08-19 2021-08-19 Nurse Nurse, Melani Denise [facility] 1.2.840. 114 [id number] Univers 13:30:00 14:36:[address] [facility] 350.1.13.10 it[place] of [place].2.[place] [id number] [address] OFFICE BUILDING 2021-08-19 2021-08-19 Outpatient Jordyn SMITH [facility] [id number] Univers 13:30:00 13:30:00 [facility] 2021-07-28 2021-07-28 Outpatient JAMAR JOSEPH [facility] [id number] Univers 13:15:00 14:01:42 ity [facility] 2021-07-28 2021-07-28 Office Jamar Lemus [facility] 1.2.840.114 [id number] Univers 13:15:00 14:01:42 Visit HEALTH 350.1.13.10 it y of [place]2.7.2.[place] [id number] [place] [address] [address] OFFICE BUILDING 2021-07-27 2021-07-27 (TEL) [facility] [id number] Co mmon 00:00:00 00:00:00 [facility] 2021-07-24 2021-07-24 OFFICE [facility] [id number] Co mmon 00:00:00 00:00:00 VISIT Spirit ESTAB PT - CHI LEVEL [address] [facility] 2021-07-22 2021-07-22 Outpatient R JAMAR LEMUS [facility] [id number] Univers 14:29:30 23:59:00 ity [facility] 2021-07-22 2021-07-22 Hospital Jamar Lemus [facility] 1.2.840.114 [id number] Univers 14:29:30 23:59:00 Encounter HEALTH 350.1.13.10 it[place] of [place] [id number] [address] ([facility]) 2021-07-22 2021-07-22 Outpatient R EPIFANIO [facility] [id number] Univers 13:30:00 14:26:35 BILAL ity [facility] 2021-07-22 2021-07-22 Office Epifanio AZARIA 1.2.840.114 [id number] Univers 13:30:00 14:26:35 Visit [facility] 350.1.13.10 it y of [place].2.[place] [id number] [place] [address] [address] OFFICE BUILDING 2021-07-22 2021-07-22 Outpatient R EPIFANIO [facility] [id number] Univers 13:30:00 14:26:35 BILAL ity [facility] 2021-07-14 2021-07-14 Outpatient R JAMAR LEMUS [facility] [id number] Univers 14:30:00 14:36:48 ity [facility] 2021-07-14 2021-07-14 Office Jamar Lemus [facility] 1.2.840.114 [id number] Univers 14:30:00 14:36:48 Visit HEALTH 350.1.13.10 it y of [place].2.[place] [id number] [facility] [address] OFFICE BUILDING 2021-07-07 2021-07-07 (TEL) STLMLC STLMLC [id number] Co mmon 00:00:00 00:00:00 [facility] 2021-07-06 2021-07-06 Telephone [facility] 1.2.680.149 [id number] Univers 00:00:00 00:00:00 Bilal HEALTH 350.1.13.10 it [place].2.[place] [id number] [facility] [address] OFFICE BUILDING 2021-06-29 2021-06-29 Telephone [facility] 1.2.347.721 [id number] Univers 00:00:00 00:00:00 Bilal HEALTH 350.1.13.10 it y of [place] [id number] [facility] [address] OFFICE BUILDING 2021-06-24 2021-06-24 Outpatient [facility] [id number] Univers 13:30:00 17:00:44 BILAL ity [facility] 2021-06-24 2021-06-24 Office [facility] 1.2.840.114 [id number] Univers 13:30:00 13:45:00 Visit Bilal HEALTH 350.1.13.10 it y of [place].2.[place] [id number] [facility] [address] OFFICE BUILDING 2021-06-16 2021-06-16 Outpatient Jordyn GODFREY [facility] [id number] Univers 09:30:00 09:30:00 BILAL ity [facility] 2021-06-16 2021-06-16 Outpatient [facility] [id number] Univers 09:30:00 09:30:00 BILAL ity [facility] 2021-06-09 2021-06-09 Outpatient [facility] [id number] Univers 09:45:00 11:04:20 BILAL ity of [facility] 2021-06-09 2021-06-09 Outpatient Jordyn GODFREY [facility] [id number] Univers 09:45:00 11:04:20 BILAL ity of [facility] 2021-06-09 2021-06-09 Office EpifanioRUST 1.2.840.114 [id number] Univers 09:45:00 11:04:20 Visit Bilal HEALTH 350.1.13.10 it y of [place] 4.2.7.2.686 [facility] [id number] Medi charito PRIMARY & [address] SPECIALTY CARE 2021-06-09 2021-06-09 Outpatient Jordyn GODFREY [facility] [id number] Univers 09:45:00 11:04:20 BILAL ity of [facility] 2021-06-09 2021-06-09 Outpatient Jordyn GODFREY [facility] [id number] Univers 09:45:00 11:04:20 BILAL ity of [facility] 2021-06-04 2021-06-04 Outpatient Jordyn GODFREY [facility] [id number] Univers 13:45:00 14:33:13 BILAL ity of [facility] 2021-06-04 2021-06-04 Outpatient [facility] [id number] Univers 13:45:00 14:33:13 BILAL ity of [facility] 2021-06-04 2021-06-04 Office [facility] 1.2.840.114 [id number] Univers 13:45:00 14:33:13 Visit Bilal HEALTH 350.1.13.10 it [place] of [place] 4.2.7.2.686 [facility] [id number] Medi charito PRIMARY & [address] SPECIALTY CARE 2021-05-13 2021-05-13 Telephone EpifanioRUST 1.2.639.700 [id number] Univers 00:00:00 00:00:00 Bilal HEALTH 350.1.13.10 it [place] of [place] 4.2.7.2.686 [facility] [id number] Medi charito PRIMARY & [address] SPECIALTY CARE 2021-05-072021-05-07 Outpatient [facility] [id number] Univers 13:00:00 15:08:05 BILAL ity [facility] 2021-05-07 2021-05-07 Office EpifanioRUST 1.2.840.114 [id number] Univers 13:00:00 15:08:05 Visit [facility] 350.1.13.10 it [facility] 4.2.7.2.686 [facility] [id number] [facility] PRIMARY & [address] SPECIALTY CARE 2021-05-07 2021-05-07 Outpatient [facility]ordyn [facility] [id number] Univers 13:00:00 15:08:05 BILAL ity [facility] 2021-05-07 2021-05-07 Orders Doctor SONI 1.2.840.114 [id number] Univers 00:00:00 00:00:00 Only Unassigned, JESUS 350.1.13.10 ity of [facility] 4.2.7.[address] [place] [address] [id number] [place] [address] [address] 2021-04-27 2021-04-27 OFFICE [facility] [id number] Co mmon 00:00:00 00:00:00 VISIT Spirit ESTAB PT - CHI LEVEL [address] [facility] 2021-04-27 2021-04-27 (TEL) [facility] STLC [id number] Co mmon 00:00:00 00:00:00 [facility] 2021-04-27 2021-04-27 SUB ANNUAL [facility] [id number] Common 00:00:00 00:00:00 MCR Spirit WELLNESS - CHI VISIT [facility] 2021-04-17 2021-04-17 (TEL) [facility] STLC [id number] Co mmon 00:00:00 00:00:00 [facility] 2021-04-14 2021-04-14 Outpatient [facility] [id number] Univers 15:00:00 16:01:53 BILAL ity [facility] 2021-04-14 2021-04-14 Office [facility] 1.2.840.114 [id number] Univers 15:00:00 16:01:53 Visit [facility] 350.1.13.10 it y of [place] 4[place]2.7.2.686 [place] [facility] [id number] [facility] PRIMARY & [address] SPECIALTY CARE 2021-04-14 2021-04-14 Outpatient Jorydn GODFREY [facility] [id number] Univers 15:00:00 16:01:53 BILAL ity of [facility] 2021-04-14 2021-04-14 Outpatient [facility] [id number] Univers 15:00:00 16:01:53 BILAL ity [facility] 2021-04-08 2021-04-08 (TEL) STLC [facility] [id number] Co mmon 00:00:00 00:00:00 [facility] 2021-04-03 2021-04-03 Nurse Nurse, [facility] Surgery [facility] 1.2. 840.114 [id number] Univers 15:00:00 15:00:00 Visit Karolina Boone 350.1.13.10 ity of [place].2.686 [place] [facility] [id number] [place]ical N[place] [address] [place] [address] 2021-04-03 2021-04-03 Out[facility] [id number] Univers 15:00:00 14:31:18 KAROLINA ity [facility] 2021-04-03 2021-04-03 [facility] [id number] Univers 15:00:00 14:31:18 KAROLINA ity [facility] 2021-04-01 2021-04-01 Outpatient R MELY, [facility] [id number] Univers 09:00:00 10:54:30 KAROLINA ity [facility] 2021-04-01 2021-04-01 Office MelyRUST [id number] Univers 09:00:00 10:54:30 Visit Karolina BETTS [id number] [id number] [id number] [place] [address] [place] [address] 2021-04-01 2021-04-01 Outpatient R GRAMM, [facility] [id number] Univers 09:00:00 10:54:30 KAROLINA cotto [facility] 2021-04-01 2021-04-01 Outpatient R GRAMM, [facility] [id number] Univers 09:00:00 10:54:30 KAROLINA cotto [facility] 2021-03-31 2021-03-31 Orders Doctor NAE [id number] Univers 00:00:00 00:00:00 Only Unassigned, JESUS 350.1.13.10 ity of [facility] 4.2.7.2.686 Kyle as [phone] [address] 2021-03-30 2021-03-30 (TEL) STLMLC STLMLC [id number] Co mmon 00:00:00 00:00:00 [facility] 2021-03-30 2021-03-30 (TEL) STLMLC STLMLC [id number] Co mmon 00:00:00 00:00:00 [facility] 2021-03-30 2021-03-30 (TEL) STLMLC STLMLC [id number] Co mmon 00:00:00 00:00:00 [facility] 2021-03-26 2021-03-26 (HOSP F/U) STLMLC STLMLC [id number] Common 00:00:00 00:00:00 [facility] 2021-03-25 2021-03-25 (TEL) STLMLC STLMLC [id number] Co mmon 00:00:00 00:00:00 [facility] 2021-03-19 2021-03-19 (TEL) STLMLC STLMLC [id number] Co mmon 00:00:00 00:00:00 [facility] 2021-03-18 2021-03-18 (TEL) STLMLC STLMLC [id number] Co mmon 00:00:00 00:00:00 [facility] 2021-03-13 2021-03-13 (TEL) STLMLC STLMLC [id number] Co mmon 00:00:00 00:00:[address] [facility] 2021-03-10 2021-03-10 OFFICE STLMLC STLMLC [id number] Co mmon 00:00:00 00:00:00 VISIT Spirit ESTAB PT - CHI LEVEL [address] [facility] 2021-03-09 2021-03-09 (TEL) STLMLC STLMLC [id number] Co mmon 00:00:00 00:00:00 Spirit - [facility] 2021-01-23 2021-01-23 OFFICE STLMLC STLMLC [id number] Co mmon 00:00:00 00:00:00 VISIT NEW [facility] it PT LEVEL 4 - [facility] 2020-12-24 2020-12-24 (TEL) STLMLC STLMLC [id number] Co mmon 00:00:00 00:00:00 [facility] 2020-12-22 2020-12-22 (TEL) STLMLC STLMLC [id number] Co mmon 00:00:00 00:00:00 [facility] 2020-11-27 2020-11-27 [facility] 1.2.840.114 [id number] Univers 07:37:00 10:50:00 Encounter Khoi Betts 350.1.13.10 ity [place] [phone] [facility] [address] 2020-11-27 2020-11-[address] [facility] 1.2.840.114 [id number] Univers 09:51:00 10:28:00 Khoi Betts 350.1.13.10 i ty [place] [phone] [facility] [address] 2020-11-25 2020-11-25 [facility] [id number] Univers 11:30:00 11:30:00 KHOI cotto [facility] 2020-11-25 2020-11-25 Laboratory Only, Adc Test [facility] 1.2.840. 114 [id number] Univers 11:13:10 11:28:10 Only Khoi Lan Laurent 350.1.1 3.10 [place] [phone] [facility] [address] 2020-11-25 2020-11-25 Orders Doctor NAE 1.2.840.114 [id number] Univers 00:00:00 00:00:00 Only Unassigned, JESUS 350.1.13.10 ity of [place] [facility] 4.2.7.2.686 Kyle as [phone] [facility] [address] 2020-11-11 2020-11-11 [facility] 1.2.840.114 [id number] Univers 00:00:00 00:00:00 Zehra Betts 350.1.13.10 it[place] [phone] [facility] [address] Building 2020-10-23 2020-10-[address] [facility] 1.2.840.114 [id number] Univers 06:56:00 10:08:00 Encounter Khoi Betts 350.1.13.10 ity of [place] [phone] [facility] [address] 2020-10-23 2020-10-[address] [facility] 1.2.840.114 [id number] Univers 09:07:00 09:44:00 Khoi Betts 350.1.13.10 i ty [place] [phone] [facility] [address] 2020-10-21 2020-10-21 Laboratory Only, Adc Test [facility] 1.2.840. 114 [id number] Univers 11:48:01 12:03:01 Only Khoi Lan Jamar Betts 350.1.1 3.10 ity [place] [id number] [facility] [address] 2020-10-21 2020-10-21 Outpatient R [facility] [id number] Univers 11:45:00 11:45:00 ity of [facility] 2020-10-16 2020-10-16 Outpatient R EDYTA, [facility] [id number] Univers 13:45:00 13:45:00 KHOI ity [facility] 2020-10-16 2020-10-16 [employer] Operator Korin, [place] Lab Main [facility] 1.2.8 40.114 [id number] Univers 12:13:01 12:28:01 Visit Khoi Lan 350.1.1 3.10 it[place] of [place] [phone] [place] [address] 2020-10-16 2020-10-16 Orders Doctor NAE 1.2.840.114 [id number] Univers 00:00:00 00:00:00 Only Unassigned, JESUS 350.1.13.10 ity of [place] [facility] 4.2.7.2.686 Kyle as [phone] [address] 2020-04-12 2020-04-12 Outpatient [facility] [id number] Univers 08:45:00 08:45:00 ity of [facility] 2020-04-05 2020-04-05 Outpatient [facility] [id number] Univers 08:45:00 08:45:00 ity of [facility] 2020-03-15 2020-03-15 Outpatient [facility] [id number] Univers 10:30:00 10:30:00 ity [facility] 2019-09-29 2019-09-29 Talya IsraelRUST 1.2.840.114 [id number] 00:00:00 00:00:00 Zehra Betts 350.1.13.10 [place] 4.2.7.2.686 Professio [phone] [address] 2019-09-29 2019-09-29 Talya IsraelRUST 1.2.840.114 [id number] Univers 00:00:00 00:00:00 Zehra Betts 350.1.13.10 [place] [phone] [address] 2019-09-08 2019-09-08 Refill [facility] 1.2.840.114 [id number] 00:00:00 00:00:00 Zehra Betts 350.1.13.10 [place] 4.2.7.2.686 Professio [phone] [address] 2019-09-08 2019-09-08 Refill [facility] 1.2.840.114 [id number] [facility] 00:00:00 00:00:00 Zehra Betts 350.1.13.10 ity [place] [phone] [address] 2019-08-16 2019-08-16 Orders Doctor NAE 1.2.840.114 [id number] 00:00:00 00:00:00 Only Unassigned, JESUS 350.1.13.10 [place] [facility] [phone] [facility] 2019-08-16 2019-08-16 Orders Doctor NAE 1.2.840.114 [id number] [facility] 00:00:00 00:00:00 Only Unassigned, JESUS 350.1.13.10 ity of [place] [facility] 4.2.7.2.686 Kyle as [phone] [address] 2019-08-10 2019-08-10 Office [facility] 1.2.840.114 [id number] [facility] 12:12:21 12:52:21 Visit Zehra Betts 350.1.13.10 it[place] of [place] [phone] [address] 2019-08-10 2019-08-10 Office [facility] 1.2.840.114 [id number] 12:12:21 12:52:21 Visit Zehra Betts 350.1.13.10 [place] 4.2.7.2.686 Professio [phone] [address] 2019-08-10 2019-08-10 [facility] [id number] Univers 12:20:00 12:20:00 ZEHRA ity of [facility] 2019-08-07 2019-08-07 [facility] 1.2.840.114 [id number] Univers 00:00:00 00:00:00 Zehra A [place] 350.1.13.10 ity of [place] [phone] [address] 2019-07-20 2019-07-20 [facility] 1.2.840.114 [id number] Univers 00:00:00 00:00:00 Zehra A [place] 350.1.13.10 [place] [phone] [address] 2019-07-19 2019-07-19 [facility] 1.2.840.114 [id number] Univers 00:00:00 00:00:00 Zehra A [place] 350.1.13.10 it[place] [phone] [address] 2019-07-16 2019-07-16 [facility] 1.2.840.114 [id number] Univers 00:00:00 00:00:00 Zehra A [place] 350.1.13.10 it[place] of [place] [phone] [address] 2019-05-02 2019-05-02 [facility] 1.2.840.114 [id number] Univers 00:00:00 00:00:00 Zehra A [place] 350.1.13.10 ity of [place] [phone] [address] 2019-04-24 2019-04-24 [facility] 1.2.840.114 [id number] Univers 00:00:00 00:00:00 Zehra A [place] 350.1.13.10 it[place] of [place] [phone] [facility] [address] [facility] 2019-04-20 2019-04-20 Office [facility] 1.2.840.114 [id number] Univers 09:35:10 11:39:26 Visit Zehra A [place] 350.1.13.10 ity of [place] [phone] [address] 2019-04-20 2019-04-20 [facility] [id number] [facility] 09:40:00 09:40:00 ZEHRA ity of [facility] 2019-04-20 2019-04-20 Orders Doctor SONI 1.2.840.114 [id number] Univers 00:00:00 00:00:00 Only Unassigned, JESUS 350.1.13.10 ity of [place] [facility] 4.2.7.2.686 Kyle as [phone] [address] 2019-01-23 2019-01-23 Orders Doctor NAE 1.2.840.114 [id number] Univers 00:00:00 00:00:00 Only Unassigned, JESUS 350.1.13.10 ity of [place] [facility] 4.2.7.2.686 Kyle as [phone] [address] 2018-10-20 2018-10-20 Refill [facility] 1.2.840.114 [id number] Univers 00:00:00 00:00:00 Zehra A [place] 350.1.13.10 ity [place] [phone] [facility] 044 [facility] 2018-10-19 2018-10-19 [facility] 1.2.840.114 [id number] Univers 00:00:00 00:00:00 Zehra A [place] 350.1.13.10 ity of [place] [phone] [address] 2018-09-28 2018-09-28 [facility] 1.2.840.114 [id number] Univers 00:00:00 00:00:00 Zehra A [place] 350.1.13.10 it[place] [phone] [address] 2018-09-08 2018-09-08 [facility] 1.2.840.114 [id number] Univers 00:00:00 00:00:00 Zehra A [place] 350.1.13.10 it[place] [phone] [address] 2018-09-08 2018-09-08 [facility] [place], [employer] 1.2.840.114 [id number] Univers 00:00:00 00:00:00 Zehra A [place] 350.1.13.10 [place] [phone] [address] Results This patient has no known results.
--- NOTE | 2022-06-24 16:17 | EDPHYS ---
Physician Documentation [facility] Name: Hortensia Bergman Age: 76 yrs Sex: Female : 1945 Arrival Date: 06/24/2022 Time: 15:38 Bed 20 Private MD: Ramiro Galloh ED Physician Neo Stuart HPI: 06/24 15:54 This 76 yrs old Female presents to ER via Ambulatory with complaints of cp Problem With Urinary Catheter. 15:55 The patient presents with The patient presents with brewer catheter out of bladder. cp 15:56 Onset: The symptoms/episode began/occurred just prior to arrival. Associated signs and cp symptoms: The patient has no apparent associated signs or symptoms. Historical: - Allergies: 15:47 Codeine; iw 15:47 Iodine; iw - PMHx: 15:47 abd hernia; diabetes mellitus; Hypercholesterolemia; Hypertensive disorder; iw - Immunization history:: Adult Immunizations up to date. - Social history:: Smoking status: unknown. ROS: 15:58 Eyes: Negative for injury, pain, redness, and discharge. cp 15:58 Constitutional: Negative for body aches, chills, fever, poor PO intake. 15:58 Cardiovascular: Negative for chest pain. 15:58 Respiratory: Negative for cough, shortness of breath, wheezing. 15:58 Abdomen/GI: Negative for vomiting, diarrhea, constipation. 15:58 : Positive for brewer catheter problem, Negative for hematuria, flank pain. 15:58 Neuro: Negative for altered mental status, headache, weakness. 15:58 All other systems are negative. Exam: 16:00 Head/Face: Normocephalic, atraumatic. cp 16:00 Constitutional: The patient appears in no acute distress, alert, awake, non-toxic, well developed, well nourished, uncomfortable. 16:00 Chest/axilla: Inspection: normal. 16:00 Cardiovascular: Rate: normal. 16:00 Respiratory: the patient does not display signs of respiratory distress, Respirations: normal, no use of accessory muscles, no retractions, labored breathing, is not present. 16:00 Abdomen/GI: Exam negative for discomfort, distension, guarding, Inspection: obese 16:00 Neuro: Orientation: to person, place \T\ time. Mentation: is normal, Gait: is steady. Vital Signs: 15:46 BP 139 / 86; Pulse 98; Resp 16; Temp 98.1; Pulse Ox 96% on R/A; iw 17:30 BP 131 / 81; Pulse 91; Resp 17; ll1 MDM: 15:47 Patient medically screened. cp 16:15 Data reviewed: vital signs, nurses notes. cp 16:15 ED course: Brewer catheter replaced by nursing staff. cp 06/24 16:01 Order name: Brewer; Complete Time: 16:55 cp Administered Medications: No medications were administered Disposition: 06/25 09:01 Co-signature as Attending Physician, Neo Stuart MD I reviewed the patient's care rt provided by the Advanced Practice Provider and agree with the diagnosis and treatment plan. Disposition Summary: 06/24/22 16:16 Discharge Ordered Location: Home cp Problem: new cp Symptoms: have improved cp Condition: Stable cp Diagnosis - Displacement of indwelling urethral catheter, initial encounter cp Followup: cp - With: Private Physician - When: 1 - 2 days - Reason: Worsening of condition Discharge Instructions: - Discharge Summary Sheet cp - Indwelling Urinary Catheter Insertion, Care After cp Forms: - Medication Reconciliation Form cp - Thank You Letter cp - Antibiotic Education cp - Prescription Opioid Use cp Signatures: Nidia German RN RN iw Miguel Hunt PA PA cp Lewis, Lynsay, RN RN ll1 Neo Stuart MD MD rt Corrections: (The following items were deleted from the chart) 06/24 15:58 15:55 The patient presents with cp cp
--- NOTE | 2022-06-24 16:17 | ER ---
Nurse's Notes [facility] Name: Hortensia Bergman Age: 76 yrs Sex: Female : 1945 Arrival Date: 06/24/2022 Time: 15:38 Bed 20 Private MD: Roland Gallo Diagnosis: Displacement of indwelling urethral catheter, initial encounter Presentation: 06/24 15:46 Chief complaint: Patient states: had a brewer placed yesterday and it fell out. iw Coronavirus screen: At this time, the client does not indicate any symptoms associated with coronavirus-19. Ebola Screen: Patient negative for fever greater than or equal to 101.5 degrees Fahrenheit, and additional compatible Ebola Virus Disease symptoms Patient denies exposure to infectious person. Patient denies travel to an Ebola-affected area in the 21 days before illness onset. No symptoms or risks identified at this time. Initial Sepsis Screen: Does the patient meet any 2 criteria? No. Patient's initial sepsis screen is negative. Does the patient have a suspected source of infection? No. Patient's initial sepsis screen is negative. Risk Assessment: Do you want to hurt yourself or someone else? Patient reports no desire to harm self or others. Onset of symptoms was June 24, 2022. 15:46 Method Of Arrival: Ambulatory iw 15:46 Acuity: SPARKLE 4 iw Triage Assessment: 17:38 Pain: Denies pain. ll1 Historical: - Allergies: 15:47 Codeine; iw 15:47 Iodine; iw - PMHx: 15:47 abd hernia; diabetes mellitus; Hypercholesterolemia; Hypertensive disorder; iw - Immunization history:: Adult Immunizations up to date. - Social history:: Smoking status: unknown. Screenin:31 [facility] ED Fall Risk Assessment (Adult) Score/Fall Risk Level 0 - 2 = Low Risk ll1 Oriented to surroundings, Maintained a safe environment, Educated pt \T\ family on fall prevention, incl call for assistance when getting out of bed, Hourly rounding (assess needs \T\ fall precautionary measures) done. Abuse screen: Denies threats or abuse. Nutritional screening: No deficits noted. Tuberculosis screening: No symptoms or risk factors identified. Assessment: 17:30 General: Appears uncomfortable, Behavior is cooperative, appropriate for age. General: ll1 need brewer catheter replaced. : Reports inability to void, needs new brewer cath. Vital Signs: 15:46 BP 139 / 86; Pulse 98; Resp 16; Temp 98.1; Pulse Ox 96% on R/A; iw 17:30 BP 131 / 81; Pulse 91; Resp 17; ll1 ED Course: 15:40 Patient arrived in ED. mr 15:41 Roland Gallo, DO is Private Physician. mr 15:41 Miguel Hunt PA is PHCP. cp 15:41 Neo Stuart MD is Attending Physician. cp 15:47 Triage completed. iw 15:47 Arm band placed on. iw 15:56 Juana Gutierrez, RN is Primary Nurse. ll1 16:55 Brewer cath inserted, using sterile technique, 16 Fr., by me, by ED staff, balloon ll1 inflated, to gravity drainage. 17:37 No provider procedures requiring assistance completed. Patient did not have IV access ll1 during this emergency room visit. 17:38 Patient has correct armband on for positive identification. Call light in reach. ll1 Cardiac monitoring not applicable on this patient. Administered Medications: No medications were administered Medication: 17:38 VIS not applicable for this client. ll1 Output: 17:25 Urine: 700ml (Brewer); Total: 700ml. ll1 Outcome: 16:16 Discharge ordered by . cp 17:37 Discharged to home ambulatory. ll1 17:37 Condition: stable 17:37 Discharge instructions given to patient, Instructed on discharge instructions, follow up and referral plans. Demonstrated understanding of instructions, follow-up care. 17:38 Patient left the ED. ll1 Signatures: Ann Little mr Nidia German RN RN Miguel Hunt PA PA cp Juana Gutierrez, RN RN ll1
[2022-06-24 17:48] VITALS: TEMP 98.1; O2SAT 96
[2022-06-24 17:50] VITALS: BP 131/81
== END 2022-06-24 17:38 | disposition home or self-care (01) ==
LOC: ER 15:38
DX: T83.021A Displacement of indwelling urethral catheter, initial encounter (principal)
CPT/HCPCS: 51702; 99284

== ENCOUNTER 2022-08-04 02:52 | Emergency (ER) | payer OTHER ==
--- OUTSIDE RECORDS SUMMARY | 2022-08-04 03:03 | XMS REPORT | Continuity of Care Document ---
:1945 Author Organization [facility] t Address [address] [place] [address] Care Team Providers Name Role Phone Roland Gallo Primary Care Physician Roland Gallo Attending Clinician Unavailable KHOI LAN Attending Clinician Unavailable Nurse, [facility] Attending Clinician Unavailable Alpa Godfrey MD Attending Clinician ALPA GODFREY Attending Clinician Unavailable Doctor Unassigned, [place] Attending Clinician Unavailable Unknown, Attending Attending Clinician Unavailable Nurse, Bls Urogyn Attending Clinician Unavailable Estrella Pond Attending Clinician ESTRELLA SMITH Attending Clinician Unavailable JAMAR LEMUS Attending Clinician Unavailable Faustino Ralph MD Attending Clinician [phone] FAUSTINO RALPH Attending Clinician Unavailable UZAIR Attending Clinician Unavailable Jamar Lemus MD Attending Clinician Nurse, [facility] Surgery Gu Attending Clinician Unavailable Karolina Medeiros Attending Clinician KAROLINA BOONE Attending Clinician Unavailable Khoi Lan MD Attending Clinician Only, Adc Test Attending Clinician Unavailable Zehra Israel MD Attending Clinician [phone] Pob, [facility] Lab Main Attending Clinician Unavailable ZEHRA ISRAEL Attending Clinician Unavailable KHOI LAN Admitting Clinician Unavailable GENAROJewelNAE Admitting Clinician Unavailable Khoi Lan MD Admitting Clinician Payers Payer Name Policy Type Policy Number Effective Date Expiration Date Anahy asher Nymirum [id number] 2020spring 00:00:00 MEDICARE PART A [id number] 2000 \\T\\ B 00:00:00 [facility] C1 [id number] [facility] C1 [id number] [facility] Problems Condition Condition Condition Status Onset Resolution [...] deficiency deficiency 3-08 it y of 00:00: [place] 00 Medical Branch Vitamin D Vitamin D [...] different from the original. 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 use of use of ICD10 insulin insulin Diagnosis Term Mushroom Cultivator Utility Essential Essential Disease Active Uni vers hypertensi hypertensi 7-12 it y of on, benign [place], benign [place] HLD HLD Disease Active Overview: Univer s (hyperlipi (hyperlipi 7-12 Formattin ity of demia) demia) 00:00: g of this note Medical might be Branch different from the original. ICD10 Diagnosis Term Mushroom Cultivator Utility Generalize Generalize Disease Active U nivers d d 7-12 ity of osteoarthr [place]oarthr [place] osis[place]sis, 00 Medical unspecifie unspecifie Br anch d site d site [id number] Hypoglycem Problem C ommon 18928 ia due to Spirit type 2 - [facility] diabetes [facility] [id number] Iron Problem Common deficiency Spirit anemia, - [facility] unspecifie St d iron [facility] deficiency Medica l anemia Center type [id number] Urinary Problem Commo n incontinen Spirit ce, - [facility]I unspecifie St d type [facility] Indwelling Indwelling Problem C ommon urinary urinary Spirit catheter catheter - [facility] present present [facility] [id number] Body mass Problem Com mon index Spirit [BMI] - [facility] 32.0-32.9, [facility] [id number] Diabetic Problem Comm on polyneurop Spirit athy - [facility] associated [facility] with type [facility] 2 diabetes Medica l mellitus [facility] [id number] Essential Problem Comm on (primary) Spirit hypertensi - [facility] on [facility] [id number] Hypothyroi Problem Co mmon dism Spirit (acquired) - [facility] [id number] medical terminologist Problem Com mon (current) Spirit use of - [facility] insulin [facility] [id number] Other Problem Common obesity Spirit due to - [facility] excess [facility] [id number] Type 2 Problem Common diabetes Spirit mellitus - [facility] with [facility] [id number] Mixed Problem Common hyperlipid Spirit emia - [facility] Allergies, Adverse Reactions, Alerts Allergy Allergy Status Severity Reaction(s) Onset Inactive Treating Comm ents Source Name Type Date Date Clinician Iodine Propensi Active Hives 2005-02 Univers ty to 02-14 ity of adverse 00:00: [place] reaction 00 Medical [facility] IODINE DRUG Active Hives 2005-02 Univers INGREDI 02-14 ity of 00:00: [place] 00 [facility] Codeine Propensi Active Rash 2005- Univers ty to 712 ity of adverse 00:00: [place] reaction 00 [facility] CODEINE DRUG Active Rash 2005- Univers INGREDI 712 ity of 00:00: [place] 00 Medical Chromo codeine codeine Active hives Common Spirit - [facility] 463 Drug Active hives Common allergy Spirit - [facility] Social History Social Habit Start Date Stop Date Quantity Comments Source Sex Assigned At Common Sp ruth - [facility] History of Common Spirit - Tobacco Use [facility] Alcohol intake 2022-07-21 2022-07-21 Current University of 00:00:00 00:00:00 non-drinker of [facility] alcohol Branch (finding) Exposure to 2022-06-13 2022-06-23 Not sure [facility]-CoV-2 00:00:00 12:16:00 [place] Medical (event) Branch Smoking Status Start Date Stop Date Source Never smoked tobacco [facility] Medications Ordered Filled Start Stop Current Ordering Indication Dosage Frequency Signature Comments Components Source Medication Medication Date Date Medication? Clinician (SIG) Name Name Insulin Insulin 2021-02 No Insulin Syringe 31G Syringe 31G 0-20 Syringe X 5/16" 0.3 X 5/16" 0.3 00:00: 31G X ML ML 00 516" 0.3 ML sulfamethox 2021-02- No [id number] 1{tbl} Take 1 Univers azole-trime 0-04 10-10 tablet by it y of oprim 00:00: 04:59 mouth in [place] (BACTRIM 00 :00 the Medical DS) 800-160 [...] UNIT/ML 6-13 UNIT/ML 00:00: 00 tamsulosin Yes [id number] .4mg Take 1 Univers 0.4 mg 24 4-21 capsule by ity of hr capsule 00:00: mouth 00 daily. Medical Branch estradioL Yes [id number] 2g Insert 2 g Univers 0.01 % (0.1 4-21 into ity of mg/gram) 00:00: vagina [place] vaginal 00 weekly. Medical cream Every Branch night for 2 weeks then 3 times a week tamsulosin 2021-0 Yes [id number] .4mg Take 1 Univers 0.4 mg 24 4-21 capsule by ity of hr capsule 00:00: mouth [place] 00 daily. Medical Branch estradioL Yes [id number] 2g Insert 2 g Univers 0.01 % (0.1 4-21 into ity of mg/gram) 00:00: vagina [place] vaginal 00 weekly. Medical cream Every Branch night for 2 weeks then 3 times a week tamsulosin 2-0 Yes [id number] .4mg Take 1 Univers 0.4 mg 24 4-21 capsule by ity of hr capsule 00:00: mouth [place] 00 daily. [facility] estradioL 2021-0 Yes [id number] 2g Insert 2 g Univers 0.01 % (0.1 4-21 into ity of mg/gram) 00:00: vagina [place] vaginal 00 weekly. Medical cream Every Branch night for 2 weeks then 3 times a week tamsulosin 2021-0 Yes [id number] .4mg Take 1 Univers 0.4 mg 24 4-21 capsule by ity of hr capsule 00:00: mouth [place] 00 daily. [facility] estradioL 2021-0 Yes [id number] 2g Insert 2 g Univers 0.01 % (0.1 4-21 into ity of mg/gram) 00:00: vagina [place] vaginal 00 weekly. Medical cream Every Branch night for 2 weeks then 3 times a week tamsulosin 2021-0 Yes [id number] .4mg Take 1 Univers 0.4 mg 24 4-21 capsule by ity of hr capsule 00:00: mouth [place] 00 daily. [facility] estradioL 2021-0 Yes [id number] 2g Insert 2 g Univers 0.01 % (0.1 4-21 into ity of mg/gram) 00:00: vagina [place] vaginal 00 weekly. Medical cream Every Branch night for 2 weeks then 3 times a week tamsulosin 2021-0 Yes [id number] .4mg Take 1 Univers 0.4 mg 24 4-21 capsule by ity of hr capsule 00:00: mouth [place] 00 daily. [facility] estradioL 2021-0 Yes [id number] 2g Insert 2 g Univers 0.01 % (0.1 4-21 into ity of mg/gram) 00:00: vagina [place] vaginal 00 weekly. Medical cream Every Branch night for 2 weeks then 3 times a week tamsulosin 2-0 Yes [id number] .4mg Take 1 Univers 0.4 mg 24 4-21 capsule by ity of hr capsule 00:00: mouth [place] 00 daily. [facility] estradioL 2-0 Yes [id number] 2g Insert 2 g Univers 0.01 % (0.1 4-21 into ity of mg/gram) 00:00: vagina [place] vaginal 00 weekly. Medical cream Every Branch night for 2 weeks then 3 times a week tamsulosin 2-0 Yes [id number] .4mg Take 1 Univers 0.4 mg 24 4-21 capsule by ity of hr capsule 00:00: mouth [place] 00 daily. [facility] estradioL 2021-0 Yes [id number] 2g Insert 2 g Univers 0.01 % (0.1 4-21 into ity of mg/gram) 00:00: vagina [place] vaginal 00 weekly. Medical cream Every Branch night for 2 weeks then 3 times a week tamsulosin 2021-0 Yes [id number] .4mg Take 1 Univers 0.4 mg 24 4-21 capsule by ity of hr capsule 00:00: mouth [place] 00 daily. [facility] estradioL 2021-0 Yes [id number] 2g Insert 2 g Univers 0.01 % (0.1 4-21 into ity of mg/gram) 00:00: vagina [place] vaginal 00 weekly. Medical cream Every Branch night for 2 weeks then 3 times a week tamsulosin 2021-0 Yes [id number] .4mg Take 1 Univers 0.4 mg 24 4-21 capsule by ity of hr capsule 00:00: mouth [place] 00 daily. [facility] estradioL 2021-0 Yes [id number] 2g Insert 2 g Univers 0.01 % (0.1 4-21 into ity of mg/gram) 00:00: vagina [place] vaginal 00 weekly. Medical cream Every Branch night for 2 weeks then 3 times a week tamsulosin 2021-0 Yes [id number] .4mg Take 1 Univers 0.4 mg 24 4-21 capsule by ity of hr capsule 00:00: mouth [place] 00 daily. [facility] estradioL 2-0 Yes [id number] 2g Insert 2 g Univers 0.01 % (0.1 4-21 into ity of mg/gram) 00:00: vagina [place] vaginal 00 weekly. Medical cream Every Branch night for 2 weeks then 3 times a week tamsulosin 2-0 Yes [id number] .4mg Take 1 Univers 0.4 mg 24 4-21 capsule by ity of hr capsule 00:00: mouth [place] 00 daily. [facility] estradioL 2021-0 Yes [id number] 2g Insert 2 g Univers 0.01 % (0.1 4-21 into ity of mg/gram) 00:00: vagina [place] vaginal 00 weekly. Medical cream Every Branch night for 2 weeks then 3 times a week tamsulosin 2-0 Yes [id number] .4mg Take 1 Univers 0.4 mg 24 4-21 capsule by ity of hr capsule 00:00: mouth [place] 00 daily. [facility] estradioL 2-0 Yes [id number] 2g Insert 2 g Univers 0.01 % (0.1 4-21 into ity of mg/gram) 00:00: vagina [place] vaginal 00 weekly. Medical cream Every Branch night for 2 weeks then 3 times a week tamsulosin 2-0 Yes [id number] .4mg Take 1 Univers 0.4 mg 24 4-21 capsule by ity of hr capsule 00:00: mouth [place] 00 daily. [facility] estradioL 2-0 Yes [id number] 2g Insert 2 g Univers 0.01 % (0.1 4-21 into ity of mg/gram) 00:00: vagina [place] vaginal 00 weekly. Medical cream Every Branch night for 2 weeks then 3 times a week tamsulosin 2-0 Yes [id number] .4mg Take 1 Univers 0.4 mg 24 4-21 capsule by ity of hr capsule 00:00: mouth [place] 00 daily. [facility] estradioL 2021-0 Yes [id number] 2g Insert 2 g Univers 0.01 % (0.1 4-21 into ity of mg/gram) 00:00: vagina [place] vaginal 00 weekly. Medical cream Every Branch night for 2 weeks then 3 times a week tamsulosin 2-0 Yes [id number] .4mg Take 1 Univers 0.4 mg 24 4-21 capsule by ity of hr capsule 00:00: mouth [place] 00 daily. [facility] estradioL 2-0 Yes [id number] 2g Insert 2 g Univers 0.01 % (0.1 4-21 into ity of mg/gram) 00:00: vagina [place] vaginal 00 weekly. Medical cream Every Branch night for 2 weeks then 3 times a week tamsulosin 2-0 Yes [id number] .4mg Take 1 Univers 0.4 mg 24 4-21 capsule by ity of hr capsule 00:00: mouth [place] 00 daily. [facility] estradioL 2-0 Yes [id number] 2g Insert 2 g Univers 0.01 % (0.1 4-21 into ity of mg/gram) 00:00: vagina [place] vaginal 00 weekly. Medical cream Every Branch night for 2 weeks then 3 times a week tamsulosin 2022-0 Yes [id number] .4mg Take 1 Univers 0.4 mg 24 4-21 capsule by ity of hr capsule 00:00: mouth [place] 00 daily. [facility] estradioL 2-0 Yes [id number] 2g Insert 2 g Univers 0.01 % (0.1 4-21 into ity of mg/gram) 00:00: vagina [place] vaginal 00 weekly. Medical cream Every Branch night for 2 weeks then 3 times a week tamsulosin 2-0 Yes [id number] .4mg Take 1 Univers 0.4 mg 24 4-21 capsule by ity of hr capsule 00:00: mouth [place] 00 daily. [facility] estradioL 2021-0 Yes [id number] 2g Insert 2 g Univers 0.01 % (0.1 4-21 into ity of mg/gram) 00:00: vagina [place] vaginal 00 weekly. Medical cream Every Branch night for 2 weeks then 3 times a week tamsulosin 2021-0 Yes [id number] .4mg Take 1 Univers 0.4 mg 24 4-21 capsule by ity of hr capsule 00:00: mouth [place] 00 daily. [facility] estradioL 2021-0 Yes [id number] 2g Insert 2 g Univers 0.01 % (0.1 4-21 into ity of mg/gram) 00:00: vagina [place] vaginal 00 weekly. Medical cream Every Branch night for 2 weeks then 3 times a week tamsulosin 2021-0 Yes [id number] .4mg Take 1 Univers 0.4 mg 24 4-21 capsule by ity of hr capsule 00:00: mouth [place] 00 daily. [facility] estradioL 2-0 Yes [id number] 2g Insert 2 g Univers 0.01 % (0.1 4-21 into ity of mg/gram) 00:00: vagina [place] vaginal 00 weekly. Medical cream Every Branch night for 2 weeks then 3 times a week tamsulosin 2-0 Yes [id number] .4mg Take 1 Univers 0.4 mg 24 4-21 capsule by ity of hr capsule 00:00: mouth [place] 00 daily. [facility] estradioL 2-0 Yes [id number] 2g Insert 2 g Univers 0.01 % (0.1 4-21 into ity of mg/gram) 00:00: vagina [place] vaginal 00 weekly. Medical cream Every Branch night for 2 weeks then 3 times a week tamsulosin 2022-0 Yes [id number] .4mg Take 1 Univers 0.4 mg 24 4-21 capsule by ity of hr capsule 00:00: mouth [place] 00 daily. [facility] Branch estradioL 2-0 Yes [id number] 2g Insert 2 g Univers 0.01 % (0.1 4-21 into ity of mg/gram) 00:00: vagina [place] [facility] 00 weekly. Medical cream Every Branch night for 2 weeks then 3 times a week Pregabalin Pregabalin 2021-0 No 1{capsu TID Pregabalin 300 MG 300 MG 3-30 le} 300 MG 00:00: 00 Pregabalin Pregabalin 2021-0 No 1{capsu TID Pregabalin 300 MG 300 MG 3-30 le} 300 MG 00:00: 00 Pregabalin Pregabalin 2-0 No 1{capsu TID Pregabalin 300 MG 300 MG 3-30 le} 300 MG 00:00: 00 Pregabalin Pregabalin 2-0 No 1{capsu TID Pregabalin 300 MG 300 MG 3-30 le} 300 MG 00:00: 00 Pregabalin Pregabalin 2021-0 No 1{capsu TID Pregabalin 300 MG 300 MG 3-30 le} 300 MG 00:00: 00 Pregabalin Pregabalin 2021-0 No 1{capsu TID Pregabalin 300 MG 300 MG 3-30 le} 300 MG 00:00: 00 Pregabalin Pregabalin 2-0 No 1{capsu TID Pregabalin 300 MG 300 MG 3-30 le} 300 MG 00:00: 00 furosemide 2-0 Yes 20mg Take 20 mg U nivers 20 mg 3-15 by mouth ity of tablet 00:00: daily. [place] [facility] furosemide 2021-0 Yes 20mg Take 20 mg U nivers 20 mg 3-15 by mouth ity of tablet 00:00: daily. [place] [facility] furosemide 2-0 Yes 20mg Take 20 mg U nivers 20 mg 3-15 by mouth ity of tablet 00:00: daily. [address] furosemide 2-0 Yes 20mg Take 20 mg U nivers 20 mg 3-15 by mouth ity of tablet 00:00: daily. [address] furosemide 2-0 Yes 20mg Take 20 mg U nivers 20 mg 3-15 by mouth ity of tablet 00:00: daily. [place] [facility] Branch furosemide 2022-0 Yes 20mg Take 20 mg U nivers 20 mg 3-15 by mouth ity of tablet 00:00: daily. [place] [facility] Branch furosemide 2022-0 Yes 20mg Take 20 mg U nivers 20 mg 3-15 by mouth ity of tablet 00:00: daily. [place] [facility] Branch furosemide 2022-0 Yes 20mg Take 20 mg U nivers 20 mg 3-15 by mouth ity of tablet 00:00: daily. [place] [facility] Branch furosemide 2022-0 Yes 20mg Take 20 mg U nivers 20 mg 3-15 by mouth ity of tablet 00:00: daily. [place] [facility] furosemide 2022-0 Yes 20mg Take 20 mg U nivers 20 mg 3-15 by mouth ity of tablet 00:00: daily. [place] [facility] furosemide 2022-0 Yes 20mg Take 20 mg U nivers 20 mg 3-15 by mouth ity of tablet 00:00: daily. [place] [facility] furosemide 2022-0 Yes 20mg Take 20 mg U nivers 20 mg 3-15 by mouth ity of tablet 00:00: daily. [place] [facility] furosemide 2022-0 Yes 20mg Take 20 mg U nivers 20 mg 3-15 by mouth ity of tablet 00:00: daily. [place] [facility] furosemide 2022-0 Yes 20mg Take 20 mg U nivers 20 mg 3-15 by mouth ity of tablet 00:00: daily. [place] [facility] furosemide 2022-0 Yes 20mg Take 20 mg U nivers 20 mg 3-15 by mouth ity of tablet 00:00: daily. [place] [facility] furosemide 2022-0 Yes 20mg Take 20 mg U nivers 20 mg 3-15 by mouth ity of tablet 00:00: daily. [place] [facility] furosemide 2022-0 Yes 20mg Take 20 mg U nivers 20 mg 3-15 by mouth ity of tablet 00:00: daily. [place] [facility] furosemide 2022-0 Yes 20mg Take 20 mg U nivers 20 mg 3-15 by mouth ity of tablet 00:00: daily. [place] [facility] furosemide 2022-0 Yes 20mg Take 20 mg U nivers 20 mg 3-15 by mouth ity of tablet 00:00: daily. [address] Branch furosemide 2022-0 Yes 20mg Take 20 mg U nivers 20 mg 3-15 by mouth ity of tablet 00:00: daily. [place] Medical Branch furosemide 2022-0 Yes 20mg Take 20 mg U nivers 20 mg 3-15 by mouth ity of tablet 00:00: daily. [place] [facility] furosemide 2022-0 Yes 20mg Take 20 mg U nivers 20 mg 3-15 by mouth ity of tablet 00:00: daily. [place] [facility] Branch furosemide 2022-0 Yes 20mg Take 20 mg U nivers 20 mg 3-15 by mouth ity of tablet 00:00: daily. [place] [facility] foLIC acid 2-0 Yes 1mg Take 1 mg Un concepción 1 mg tablet 3-14 by mouth ity of 00:00: daily. [place] [facility] foLIC acid 2-0 Yes 1mg Take 1 mg Un concepción 1 mg tablet 3-14 by mouth ity of 00:00: daily. [place] [facility] foLIC acid 2-0 Yes 1mg Take 1 mg Un concepción 1 mg tablet 3-14 by mouth ity of 00:00: daily. [place] [facility] foLIC acid 2-0 Yes 1mg Take 1 mg Un concepción 1 mg tablet 3-14 by mouth ity of 00:00: daily. [place] [facility] foLIC acid 2-0 Yes 1mg Take 1 mg Un concepción 1 mg tablet 3-14 by mouth ity of 00:00: daily. [place] [facility] foLIC acid 2022-0 Yes 1mg Take 1 mg Un concepción 1 mg tablet 3-14 by mouth ity of 00:00: daily. [place] [facility] foLIC acid 2022-0 Yes 1mg Take 1 mg Un concepción 1 mg tablet 3-14 by mouth ity of 00:00: daily. [place] [facility] foLIC acid 2022-0 Yes 1mg Take 1 mg Un concepción 1 mg tablet 3-14 by mouth ity of 00:00: daily. [place] [facility] foLIC acid 2022-0 Yes 1mg Take 1 mg Un concepción 1 mg tablet 3-14 by mouth ity of 00:00: daily. [place] [facility] foLIC acid 2022-0 Yes 1mg Take 1 mg Un concepción 1 mg tablet 3-14 by mouth ity of 00:00: daily. [facility] Branch foLIC acid 2021-0 Yes 1mg Take 1 mg Un concepción 1 mg tablet 3-14 by mouth ity of 00:00: daily. Medical Branch foLIC acid 2021-0 Yes 1mg Take 1 mg Un concepción 1 mg tablet 3-14 by mouth ity of 00:00: daily. [facility] Branch foLIC acid 2021-0 Yes 1mg Take 1 mg Un concepción 1 mg tablet 3-14 by mouth ity of 00:00: daily. [facility] Branch foLIC acid 2021-0 Yes 1mg Take 1 mg Un concepción 1 mg tablet 3-14 by mouth ity of 00:00: daily. [place] [facility] Branch foLIC acid 2021-0 Yes 1mg Take 1 mg Un concepción 1 mg tablet 3-14 by mouth ity of 00:00: daily. [place] [facility] Branch foLIC acid 2021-0 Yes 1mg Take 1 mg Un concepción 1 mg tablet 3-14 by mouth ity of 00:00: daily. [place] [facility] Branch foLIC acid 2021-0 Yes 1mg Take 1 mg Un concepción 1 mg tablet 3-14 by mouth ity of 00:00: daily. [place] [facility] Branch foLIC acid 2021-0 Yes 1mg Take 1 mg Un concepción 1 mg tablet 3-14 by mouth ity of 00:00: daily. [place] [facility] Branch foLIC acid 2021-0 Yes 1mg Take 1 mg Un concepción 1 mg tablet 3-14 by mouth ity of 00:00: daily. [place] [facility] Branch foLIC acid 2021-0 Yes 1mg Take 1 mg Un concepción 1 mg tablet 3-14 by mouth ity of 00:00: daily. [place] [facility] Branch foLIC acid 2021-0 Yes 1mg Take 1 mg Un concepción 1 mg tablet 3-14 by mouth ity of 00:00: daily. [place] [facility] Branch foLIC acid 2021-0 Yes 1mg Take 1 mg Un concepción 1 mg tablet 3-14 by mouth ity of 00:00: daily. [place] [facility] Branch foLIC acid 2021-0 Yes 1mg Take 1 mg Un concepción 1 mg tablet 3-14 by mouth ity of 00:00: daily. [place] [facility] Bactrim DS Bactrim DS 2-0 2022- No 1{table BID Bactrim DS 800-160 MG 800-160 MG 03-13 t} 800-160 MG 00:00: 00:00 00 :00 Pregabalin Pregabalin 2020-02 No 1{capsu TID 300 MG 300 MG 2-10 le} 00:00: 00 Pregabalin Pregabalin 2020-02 No 1{capsu TID 300 MG 300 MG 2-10 le} 00:00: 00 Pregabalin Pregabalin 2020-02 No 1{capsu TID Pregabalin 300 MG 300 MG 2-10 le} 300 MG 00:00: 00 Pregabalin Pregabalin 2020-02 No 1{capsu TID Pregabalin 300 MG 300 MG 2-10 le} 300 MG 00:00: 00 Pregabalin Pregabalin 2020-02 No 1{capsu TID Pregabalin 300 MG 300 MG 2-10 le} 300 MG 00:00: 00 Pregabalin Pregabalin 2020-02 No 1{capsu TID Pregabalin 300 MG 300 MG 2-10 le} 300 MG 00:00: 00 BD VEO 2020-02 Yes [id number] USE Univ ers INSULIN 0-04 DIRECTED 4 ity of SYR, HALF 00:00: TIMES [place] UNIT, 0.3 00 DAILY Medical mL 31 gauge Branch x 15/64" Syrg BD VEO 2020-02 Yes [id number] USE Univ ers INSULIN 0-04 DIRECTED 4 ity of SYR, HALF 00:00: TIMES [place] UNIT, 0.3 00 DAILY Medical mL 31 gauge Branch x 15/64" Syrg BD VEO 2020-02 Yes [id number] USE Univ ers INSULIN 0-04 DIRECTED 4 ity of SYR, HALF 00:00: TIMES [place] UNIT, 0.3 00 DAILY Medical mL 31 gauge Branch x 15/64" Syrg BD VEO 2020-02 Yes [id number] USE Univ ers INSULIN 0-04 DIRECTED 4 ity of SYR, HALF 00:00: TIMES [place] UNIT, 0.3 00 DAILY Medical mL 31 gauge Branch x 15/64" Syrg BD VEO 2020-02 Yes [id number] USE Univ ers INSULIN 0-04 DIRECTED 4 ity of SYR, HALF 00:00: TIMES [place] UNIT, 0.3 00 DAILY Medical mL 31 gauge Branch x 15/64" Syrg BD VEO 2020-02 Yes [id number] USE Univ ers INSULIN 0-04 DIRECTED 4 ity of SYR, HALF 00:00: TIMES [place] UNIT, 0.3 00 DAILY Medical mL 31 gauge Branch x 15/64" Syrg BD VEO 2020-02 Yes [id number] USE Univ ers INSULIN 0-04 DIRECTED 4 ity of SYR, HALF 00:00: TIMES [place] UNIT, 0.3 00 DAILY Medical mL 31 gauge Branch x 15/64" Syrg BD VEO 2020-02 Yes [id number] USE Univ ers INSULIN 0-04 DIRECTED 4 ity of SYR, HALF 00:00: TIMES [place] UNIT, 0.3 00 DAILY Medical mL 31 gauge Branch x 15/64" Syrg BD VEO 2020-02 Yes [id number] USE Univ ers INSULIN 0-04 DIRECTED 4 ity of SYR, HALF 00:00: TIMES [place] UNIT, 0.3 00 DAILY Medical mL 31 gauge Branch x 15/64" Syrg BD VEO 2020-02 Yes [id number] USE Univ ers INSULIN 0-04 DIRECTED 4 ity of SYR, HALF 00:00: TIMES [place] UNIT, 0.3 00 DAILY Medical mL 31 gauge Branch x 15/64" Syrg BD VEO 2020-02 Yes [id number] USE Univ ers INSULIN 0-04 DIRECTED 4 ity of SYR, HALF 00:00: TIMES [place] UNIT, 0.3 00 DAILY Medical mL 31 gauge Branch x 15/64" Syrg BD VEO 2020-02 Yes [id number] USE Univ ers INSULIN 0-04 DIRECTED 4 ity of SYR, HALF 00:00: TIMES [place] UNIT, 0.3 00 DAILY Medical mL 31 gauge Branch x 15/64" Syrg BD VEO 2020-02 Yes [id number] USE Univ ers INSULIN 0-04 DIRECTED 4 ity of SYR, HALF 00:00: TIMES [place] UNIT, 0.3 00 DAILY Medical mL 31 gauge Branch x 15/64" Syrg BD VEO 2020-02 Yes [id number] USE Univ ers INSULIN 0-04 DIRECTED 4 ity of SYR, HALF 00:00: TIMES [place] UNIT, 0.3 00 DAILY Medical mL 31 gauge Branch x 15/64" Syrg BD VEO 2020-02 Yes [id number] USE Univ ers INSULIN 0-04 DIRECTED 4 ity of SYR, HALF 00:00: TIMES [place] UNIT, 0.3 00 DAILY Medical mL 31 gauge Branch x 15/64" Syrg BD VEO 2020-02 Yes [id number] USE Univ ers INSULIN 0-04 DIRECTED 4 ity of SYR, HALF 00:00: TIMES [place] UNIT, 0.3 00 DAILY Medical mL 31 gauge Branch x 15/64" Syrg BD VEO 2020-02 Yes [id number] USE [facility] ers INSULIN 0-04 DIRECTED 4 ity of SYR, HALF 00:00: TIMES [place] UNIT, 0.3 00 DAILY Medical mL 31 gauge Branch x 15/64" Syrg BD VEO 2020-02 Yes [id number] USE [facility] ers INSULIN 0-04 DIRECTED 4 ity of SYR, HALF 00:00: TIMES [place] UNIT, 0.3 00 DAILY Medical mL 31 gauge Branch x 15/64" Syrg BD VEO 2020-02 Yes [id number] USE Univ ers INSULIN 0-04 DIRECTED 4 ity of SYR, HALF 00:00: TIMES [place] UNIT, 0.3 00 DAILY Medical mL 31 gauge Branch x 15/64" Syrg BD VEO 2020-02 Yes [id number] USE Univ ers INSULIN 0-04 DIRECTED 4 ity of SYR, HALF 00:00: TIMES [place] UNIT, 0.3 00 DAILY Medical mL 31 gauge Branch x 15/64" Syrg BD VEO 2020-02 Yes [id number] USE Univ ers INSULIN 0-04 DIRECTED 4 ity of SYR, HALF 00:00: TIMES [place] UNIT, 0.3 00 DAILY Medical mL 31 gauge Branch x 15/64" Syrg BD VEO 2020-02 Yes [id number] USE Univ ers INSULIN 0-04 DIRECTED 4 ity of SYR, HALF 00:00: TIMES [place] UNIT, 0.3 00 DAILY Medical mL 31 gauge Branch x 15/64" Syrg BD VEO 2020-02 Yes [id number] USE Univ ers INSULIN 0-04 DIRECTED 4 ity of SYR, HALF 00:00: TIMES [place] UNIT, 0.3 00 DAILY Medical mL 31 gauge Branch x 15/64" Syrg BD VEO 2019-0 Yes [id number] USE Univ ers INSULIN 8-19 DIRECTED 4 ity of SYRINGE UF 00:00: TIMES [place] 0.3 mL 31 00 DAILY Medical gauge x Branch 15/64" Syrg BD VEO 2020-0 Yes [id number] USE Univ ers INSULIN 8-19 DIRECTED 4 ity of SYRINGE UF 00:00: TIMES [place] 0.3 mL 31 DAILY Medical gauge x Branch 15/64" Syrg BD VEO 2020-0 Yes [id number] USE Univ ers INSULIN 8-19 DIRECTED 4 ity of SYRINGE UF 00:00: TIMES [place] 0.3 mL 31 DAILY Medical gauge x Branch 15/64" Syrg BD VEO 2020-0 Yes [id number] USE Univ ers INSULIN 8-19 DIRECTED 4 ity of SYRINGE UF 00:00: TIMES [place] 0.3 mL DAILY Medical gauge x Branch 15/64" Syrg BD VEO 2020-0 Yes [id number] USE Univ ers INSULIN 8-19 DIRECTED 4 ity of SYRINGE UF 00:00: TIMES [place] 0.3 mL DAILY Medical gauge x Branch 15/64" Syrg BD VEO 2020-0 Yes [id number] USE Univ ers INSULIN 8-19 DIRECTED 4 ity of SYRINGE UF 00:00: TIMES [place] 0.3 mL DAILY Medical gauge x Branch 15/64" Syrg BD VEO 2020-0 Yes [id number] USE Univ ers INSULIN 8-19 DIRECTED 4 ity of SYRINGE UF 00:00: TIMES [place] 0.3 mL DAILY Medical gauge x Branch 15/64" Syrg BD VEO 2020-0 Yes [id number] USE Univ ers INSULIN 8-19 DIRECTED 4 ity of SYRINGE UF 00:00: TIMES [place] 0.3 mL DAILY Medical gauge x Branch 15/64" Syrg BD VEO 2020-0 Yes [id number] USE Univ ers INSULIN 8-19 DIRECTED 4 ity of SYRINGE UF 00:00: TIMES [place] 0.3 mL DAILY Medical gauge x Branch 15/64" Syrg BD VEO 2020-0 Yes [id number] USE Univ ers INSULIN 8-19 DIRECTED 4 ity of SYRINGE UF 00:00: TIMES [place] 0.3 mL 31 DAILY Medical gauge x Branch 15/64" Syrg BD VEO 2020-0 Yes [id number] USE Univ ers INSULIN 8-19 DIRECTED 4 ity of SYRINGE UF 00:00: TIMES [place] 0.3 mL 31 DAILY Medical gauge x Branch 15/64" Syrg BD VEO 2020-0 Yes [id number] USE Univ ers INSULIN 8-19 DIRECTED 4 ity of SYRINGE UF 00:00: TIMES [place] 0.3 mL 31 00 DAILY Medical gauge x Branch 15/64" Syrg BD VEO 2020-0 Yes [id number] USE Univ ers INSULIN 8-19 DIRECTED 4 ity of SYRINGE UF 00:00: TIMES [place] 0.3 mL 31 DAILY Medical gauge x Branch 15/64" Syrg BD VEO 2020-0 Yes [id number] USE Univ ers INSULIN 8- DIRECTED 4 ity of SYRINGE UF 00:00: TIMES [place] 0.3 mL 31 DAILY Medical gauge x Branch 15/64" Syrg BD VEO 2020-0 Yes [id number] USE Univ ers INSULIN 8- DIRECTED 4 ity of SYRINGE UF 00:00: TIMES [place] 0.3 mL 31 DAILY Medical gauge x Branch 15/64" Syrg BD VEO 2020-0 Yes [id number] USE Univ ers INSULIN 8- DIRECTED 4 ity of SYRINGE UF 00:00: TIMES [place] 0.3 mL DAILY Medical gauge x Branch 15/64" Syrg BD VEO 2020-0 Yes [id number] USE Univ ers INSULIN 8- DIRECTED 4 ity of SYRINGE UF 00:00: TIMES [place] 0.3 mL 31 DAILY Medical gauge x Branch 15/64" Syrg BD VEO 2020-0 Yes [id number] USE Univ ers INSULIN 8- DIRECTED 4 ity of SYRINGE UF 00:00: TIMES [place] 0.3 mL 31 00 DAILY Medical gauge x Branch 15/64" Syrg BD VEO 2020-0 Yes [id number] USE Univ ers INSULIN 8-19 DIRECTED 4 ity of SYRINGE UF 00:00: TIMES [place] 0.3 mL 31 00 DAILY Medical gauge x Branch 15/64" Syrg BD VEO 2020-0 Yes [id number] USE Univ ers INSULIN 8-19 DIRECTED 4 ity of SYRINGE UF 00:00: TIMES [place] 0.3 mL 31 DAILY Medical gauge x Branch 15/64" Syrg BD VEO 2020-0 Yes [id number] USE Univ ers INSULIN 8-19 DIRECTED 4 ity of SYRINGE UF 00:00: TIMES [place] 0.3 mL 31 00 DAILY Medical gauge x Branch 15/64" Syrg BD VEO 2020-0 Yes [id number] USE Univ ers INSULIN 8-19 DIRECTED 4 ity of SYRINGE UF 00:00: TIMES [place] 0.3 mL 31 00 DAILY Medical gauge x Branch 15/64" Syrg BD VEO 2020-0 Yes [id number] USE Univ ers INSULIN 819 DIRECTED 4 ity of SYRINGE UF 00:00: TIMES [place] 0.3 mL 31 00 DAILY Medical gauge x Branch 15/64" Syrg EUTHYROX 2020-0 Yes [id number] TAKE 1 Un concepción 125 mcg 7-30 TABLET BY ity of tablet 00:00: MOUTH ONCE [place] 00 DAILY IN [facility] MORNING EUTHYROX 2020-0 Yes [id number] TAKE 1 Un concepción 125 mcg 7-30 TABLET BY ity of tablet 00:00: MOUTH ONCE [place] 00 DAILY IN [facility] MORNING EUTHYROX 2020-0 Yes [id number] TAKE 1 Un concepción 125 mcg 7-30 TABLET BY ity of tablet 00:00: MOUTH ONCE [place] 00 DAILY IN [facility] MORNING EUTHYROX 2020-0 Yes [id number] TAKE 1 Un concepción 125 mcg 7-30 TABLET BY ity of tablet 00:00: MOUTH ONCE [place] 00 DAILY IN [facility] MORNING EUTHYROX 2020-0 Yes [id number] TAKE 1 Un concepción 125 mcg 7-30 TABLET BY ity of tablet 00:00: MOUTH ONCE [place] 00 DAILY IN [facility] MORNING EUTHYROX 2020-0 Yes [id number] TAKE 1 Un concepción 125 mcg 7-30 TABLET BY ity of tablet 00:00: MOUTH ONCE [place] 00 DAILY IN [facility] MORNING EUTHYROX 2020-0 Yes [id number] TAKE 1 Un concepción 125 mcg 7-30 TABLET BY ity of tablet 00:00: MOUTH ONCE [place] 00 DAILY IN [facility] MORNING EUTHYROX 2020-0 Yes [id number] TAKE 1 Un concepción 125 mcg 7-30 TABLET BY ity of tablet 00:00: MOUTH ONCE [place] 00 DAILY IN [facility] MORNING EUTHYROX 2020-0 Yes [id number] TAKE 1 Un concepción 125 mcg 7-30 TABLET BY ity of tablet 00:00: MOUTH ONCE [place] 00 DAILY IN [facility] MORNING EUTHYROX 2020-0 Yes [id number] TAKE 1 Un concepción 125 mcg 7-30 TABLET BY ity of tablet 00:00: MOUTH ONCE [place] 00 DAILY IN [facility] MORNING EUTHYROX 2020-0 Yes [id number] TAKE 1 Un concepción 125 mcg 7-30 TABLET BY ity of tablet 00:00: MOUTH ONCE [place] 00 DAILY IN [facility] MORNING EUTHYROX 2020-0 Yes [id number] TAKE 1 Un concepción 125 mcg 7-30 TABLET BY ity of tablet 00:00: MOUTH ONCE [place] 00 DAILY IN [facility] MORNING EUTHYROX 2020-0 Yes [id number] TAKE 1 Un concepción 125 mcg 7-30 TABLET BY ity of tablet 00:00: MOUTH ONCE [place] 00 DAILY IN [facility] MORNING EUTHYROX 2020-0 Yes [id number] TAKE 1 Un concepción 125 mcg 7-30 TABLET BY ity of tablet 00:00: MOUTH ONCE [place] 00 DAILY IN [facility] MORNING EUTHYROX 2020-0 Yes [id number] TAKE 1 Un concepción 125 mcg 7-30 TABLET BY ity of tablet 00:00: MOUTH ONCE [place] 00 DAILY IN [facility] MORNING EUTHYROX 2020-0 Yes [id number] TAKE 1 Un concepción 125 mcg 7-30 TABLET BY ity of tablet 00:00: MOUTH ONCE [place] 00 DAILY IN [facility] MORNING EUTHYROX 2020-0 Yes [id number] TAKE 1 Un concepción 125 mcg 7-30 TABLET BY ity of tablet 00:00: MOUTH ONCE [place] 00 DAILY IN [facility] MORNING EUTHYROX 2020-0 Yes [id number] TAKE 1 Un concepción 125 mcg 7-30 TABLET BY ity of tablet 00:00: MOUTH ONCE [place] 00 DAILY IN [facility] MORNING EUTHYROX 2020-0 Yes [id number] TAKE 1 Un concepción 125 mcg 7-30 TABLET BY ity of tablet 00:00: MOUTH ONCE [place] 00 DAILY IN [facility] MORNING EUTHYROX 2020-0 Yes [id number] TAKE 1 Un concepción 125 mcg 7-30 TABLET BY ity of tablet 00:00: MOUTH ONCE [place] 00 DAILY IN [facility] MORNING EUTHYROX 2020-0 Yes [id number] TAKE 1 Un concepción 125 mcg 7-30 TABLET BY ity of tablet 00:00: MOUTH ONCE [place] 00 DAILY IN [facility] MORNING EUTHYROX 2020-0 Yes [id number] TAKE 1 Un concepción 125 mcg 7-30 TABLET BY ity of tablet 00:00: MOUTH ONCE [place] 00 DAILY IN [facility] MORNING EUTHYROX 2020-0 Yes [id number] TAKE 1 Un concepción 125 mcg 7-30 TABLET BY ity of tablet 00:00: MOUTH ONCE [place] 00 DAILY IN Medical THE Branch MORNING PREGABALIN 2020-0 Yes [id number] Take 1 Univers 300 mg 6-05 capsule by ity of capsule 00:00: mouth [place] 00 twice Medical daily Branch PREGABALIN 2020-0 Yes [id number] Take 1 Univers 300 mg 6-05 capsule by ity of capsule 00:00: mouth 00 twice Medical daily Branch PREGABALIN 2020-0 Yes [id number] Take 1 Univers 300 mg 6-05 capsule by ity of capsule 00:00: mouth [place] 00 twice Medical daily Branch PREGABALIN 2020-0 Yes [id number] Take 1 Univers 300 mg 6-05 capsule by ity of capsule 00:00: mouth 00 twice Medical daily Branch PREGABALIN 2020-0 Yes [id number] Take 1 Univers 300 mg 6-05 capsule by ity of capsule 00:00: mouth twice Medical daily Branch PREGABALIN 2020-0 Yes [id number] Take 1 [facility] 300 mg 6-05 capsule by ity of capsule 00:00: mouth twice Medical daily Branch PREGABALIN 2020-0 Yes [id number] Take 1 [facility] 300 mg 6-05 capsule by ity of capsule 00:00: mouth 00 twice Medical daily Branch PREGABALIN 2020-0 Yes [id number] Take 1 [facility] 300 mg 6-05 capsule by ity of capsule 00:00: mouth twice Medical daily Branch PREGABALIN 2020-0 Yes [id number] Take 1 [facility] 300 mg 6-05 capsule by ity of capsule 00:00: mouth twice Medical daily Branch PREGABALIN 2020-0 Yes [id number] Take 1 [facility] 300 mg 6-05 capsule by ity of capsule 00:00: mouth twice Medical daily Branch PREGABALIN 2020-0 Yes [id number] Take 1 [facility] 300 mg 6-05 capsule by ity of capsule 00:00: mouth twice Medical daily Branch PREGABALIN 2020-0 Yes [id number] Take 1 [facility] 300 mg 6-05 capsule by ity of capsule 00:00: mouth twice Medical daily Branch PREGABALIN 2020-0 Yes [id number] Take 1 [facility] 300 mg 6-05 capsule by ity of capsule 00:00: mouth 00 twice Medical daily Branch PREGABALIN 2020-0 Yes [id number] Take 1 Univers 300 mg 6-05 capsule by ity of capsule 00:00: mouth twice Medical daily Branch PREGABALIN 2020-0 Yes [id number] Take 1 Univers 300 mg 6-05 capsule by ity of capsule 00:00: mouth 00 twice Medical daily Branch PREGABALIN 2020-0 Yes [id number] Take 1 [facility] 300 mg 6-05 capsule by ity of capsule 00:00: mouth twice Medical daily Branch PREGABALIN 2020-0 Yes [id number] Take 1 Univers 300 mg 6-05 capsule by ity of capsule 00:00: mouth twice Medical daily Branch PREGABALIN 2020-0 Yes [id number] Take 1 Univers 300 mg 6-05 capsule by ity of capsule 00:00: mouth twice Medical daily Branch PREGABALIN 2020-0 Yes [id number] Take 1 Univers 300 mg 6-05 capsule by ity of capsule 00:00: mouth twice Medical daily Branch PREGABALIN 2020-0 Yes [id number] Take 1 Univers 300 mg 6-05 capsule by ity of capsule 00:00: mouth twice Medical daily Branch PREGABALIN 2020-0 Yes [id number] Take 1 [facility] 300 mg 6-05 capsule by ity of capsule 00:00: mouth 00 twice Medical daily Branch PREGABALIN 2020-0 Yes [id number] Take 1 Univers 300 mg 6-05 capsule by ity of capsule 00:00: mouth twice Medical daily Branch PREGABALIN 2020-0 Yes [id number] Take 1 Univers 300 mg 6-05 capsule by ity of capsule 00:00: mouth twice Medical daily Branch METFORMIN 2020-0 Yes [id number] TAKE 1 U nivers 1,000 mg 3-19 TABLET BY ity of tablet 00:00: MOUTH TWICE Medical DAILY WITH Branch MEALS FOR DIABETES METFORMIN 2020-0 Yes [id number] TAKE 1 U nivers 1,000 mg 3-19 TABLET BY ity of tablet 00:00: MOUTH 00 TWICE Medical DAILY WITH Branch MEALS FOR DIABETES METFORMIN 2020-0 Yes [id number] TAKE 1 U nivers 1,000 mg 3-19 TABLET BY ity of tablet 00:00: MOUTH TWICE Medical DAILY WITH Branch MEALS FOR DIABETES METFORMIN 2020-0 Yes [id number] TAKE 1 U nivers 1,000 mg 3-19 TABLET BY ity of tablet 00:00: MOUTH 00 TWICE Medical DAILY WITH Branch MEALS FOR DIABETES METFORMIN 2020-0 Yes [id number] TAKE 1 U nivers 1,000 mg 3-19 TABLET BY ity of tablet 00:00: MOUTH 00 TWICE Medical DAILY WITH Branch MEALS FOR DIABETES METFORMIN 2020-0 Yes [id number] TAKE 1 U nivers 1,000 mg 3-19 TABLET BY ity of tablet 00:00: MOUTH 00 TWICE Medical DAILY WITH Branch MEALS FOR DIABETES METFORMIN 2020-0 Yes [id number] TAKE 1 U nivers 1,000 mg 3-19 TABLET BY ity of tablet 00:00: MOUTH 00 TWICE Medical DAILY WITH Branch MEALS FOR DIABETES METFORMIN 2020-0 Yes [id number] TAKE 1 U nivers 1,000 mg 3-19 TABLET BY ity of tablet 00:00: MOUTH 00 TWICE Medical DAILY WITH Branch MEALS FOR DIABETES METFORMIN 2020-0 Yes [id number] TAKE 1 U nivers 1,000 mg 3-19 TABLET BY ity of tablet 00:00: MOUTH 00 TWICE Medical DAILY WITH Branch MEALS FOR DIABETES METFORMIN 2020-0 Yes [id number] TAKE 1 U nivers 1,000 mg 3-19 TABLET BY ity of tablet 00:00: MOUTH 00 TWICE Medical DAILY WITH Branch MEALS FOR DIABETES METFORMIN 2020-0 Yes [id number] TAKE 1 U nivers 1,000 mg 3-19 TABLET BY ity of tablet 00:00: MOUTH 00 TWICE Medical DAILY WITH Branch MEALS FOR DIABETES METFORMIN 2020-0 Yes [id number] TAKE 1 U nivers 1,000 mg 3-19 TABLET BY ity of tablet 00:00: MOUTH 00 TWICE Medical DAILY WITH Branch MEALS FOR DIABETES METFORMIN 2020-0 Yes [id number] TAKE 1 U nivers 1,000 mg 3-19 TABLET BY ity of tablet 00:00: MOUTH 00 TWICE Medical DAILY WITH Branch MEALS FOR DIABETES METFORMIN 2020-0 Yes [id number] TAKE 1 U nivers 1,000 mg 3-19 TABLET BY ity of tablet 00:00: MOUTH 00 TWICE Medical DAILY WITH Branch MEALS FOR DIABETES METFORMIN 2020-0 Yes [id number] TAKE 1 U nivers 1,000 mg 3-19 TABLET BY ity of tablet 00:00: MOUTH 00 TWICE Medical DAILY WITH Branch MEALS FOR DIABETES METFORMIN 2020-0 Yes [id number] TAKE 1 U nivers 1,000 mg 3-19 TABLET BY ity of tablet 00:00: MOUTH TWICE Medical DAILY WITH Branch MEALS FOR DIABETES METFORMIN 2020-0 Yes [id number] TAKE 1 U nivers 1,000 mg 3-19 TABLET BY ity of tablet 00:00: 00 TWICE Medical DAILY WITH Branch MEALS FOR DIABETES METFORMIN 2020-0 Yes [id number] TAKE 1 U nivers 1,000 mg 3-19 TABLET BY ity of tablet 00:00: TWICE Medical DAILY WITH Branch MEALS FOR DIABETES METFORMIN 2020-0 Yes [id number] TAKE 1 U nivers 1,000 mg 3-19 TABLET BY ity of tablet 00:00: 00 TWICE Medical DAILY WITH Branch MEALS FOR DIABETES METFORMIN 2020-0 Yes [id number] TAKE 1 U nivers 1,000 mg 3-19 TABLET BY ity of tablet 00:00: TWICE Medical DAILY WITH Branch MEALS FOR DIABETES METFORMIN 2020-0 Yes [id number] TAKE 1 U nivers 1,000 mg 3-19 TABLET BY ity of tablet 00:00: TWICE Medical DAILY WITH Branch MEALS FOR DIABETES METFORMIN 2020-0 Yes [id number] TAKE 1 U nivers 1,000 mg 3-19 TABLET BY ity of tablet 00:00: TWICE Medical DAILY WITH Branch MEALS FOR DIABETES METFORMIN 2020-0 Yes [id number] TAKE 1 U nivers 1,000 mg 3-19 TABLET BY ity of tablet 00:00: TWICE Medical DAILY WITH Branch MEALS FOR DIABETES blood sugar 2020-0 Yes [id number] Check [facility] diagnostic 3-06 sugars 2-3 ity of strip 00:00: times a day. Dx Medical Code Branch E11.9. AccuChek guide me brand. blood sugar 2020-0 Yes [id number] Check Univers diagnostic 3-06 sugars 2-3 ity of strip 00:00: times a day. Dx Medical Code Branch E11.9. AccuChek guide me brand. blood sugar 2020-0 Yes [id number] Check Univers diagnostic 3-06 sugars 2-3 ity of strip 00:00: times a day. Dx Medical Code Branch E11.9. AccuChek guide me brand. blood sugar 2020-0 Yes [id number] Check Univers diagnostic 3-06 sugars 2-3 ity of strip 00:00: times a [place] 00 day. Dx Medical Code Branch E11.9. AccuChek guide me brand. blood sugar 2020-0 Yes [id number] Check Univers diagnostic 3-06 sugars 2-3 ity of strip 00:00: times a [place] day. Dx Medical Code Branch E11.9. AccuChek guide me brand. blood sugar 2020-0 Yes [id number] Check Univers diagnostic 3-06 sugars 2-3 ity of strip 00:00: times a day. Dx Medical Code Branch E11.9. AccuChek guide me brand. blood sugar 2020-0 Yes [id number] Check Univers diagnostic 3-06 sugars 2-3 ity of strip 00:00: times a day. Dx Medical Code Branch E11.9. AccuChek guide me brand. blood sugar 2020-0 Yes [id number] Check Univers diagnostic 3-06 sugars 2-3 ity of strip 00:00: times a day. Dx Medical Code Branch E11.9. AccuChek guide me brand. blood sugar 2020-0 Yes [id number] Check Univers diagnostic 3-06 sugars 2-3 ity of strip 00:00: times a [place] 00 day. Dx Medical Code Branch E11.9. AccuChek guide me brand. blood sugar 2020-0 Yes [id number] Check Univers diagnostic 3-06 sugars 2-3 ity of strip 00:00: times a day. Dx Medical Code Branch E11.9. AccuChek guide me brand. blood sugar 2020-0 Yes [id number] Check Univers diagnostic 3-06 sugars 2-3 ity of strip 00:00: times a day. Dx Medical Code Branch E11.9. AccuChek guide me brand. blood sugar 2020-0 Yes [id number] Check Univers diagnostic 3-06 sugars 2-3 ity of strip 00:00: times a [place] 00 day. Dx Medical Code Branch E11.9. AccuChek guide me brand. blood sugar 2020-0 Yes [id number] Check Univers diagnostic 3-06 sugars 2-3 ity of strip 00:00: times a [place] 00 day. Dx Medical Code Branch E11.9. AccuChek guide me brand. blood sugar 2020-0 Yes [id number] Check Univers diagnostic 3-06 sugars 2-3 ity of strip 00:00: times a [place] 00 day. Dx Medical Code Branch E11.9. AccuChek guide me brand. blood sugar 2020-0 Yes [id number] Check Univers diagnostic 3-06 sugars 2-3 ity of strip 00:00: times a day. Dx Medical Code Branch E11.9. AccuChek guide me brand. blood sugar 2020-0 Yes [id number] Check Univers diagnostic 3-06 sugars 2-3 ity of strip 00:00: times a day. Dx Medical Code Branch E11.9. AccuChek guide me brand. blood sugar 2020-0 Yes [id number] Check Univers diagnostic 3-06 sugars 2-3 ity of strip 00:00: times a day. Dx Medical Code Branch E11.9. AccuChek guide me brand. blood sugar 2020-0 Yes [id number] Check Univers diagnostic 3-06 sugars 2-3 ity of strip 00:00: times a day. Dx Medical Code Branch E11.9. AccuChek guide me brand. blood sugar 2020-0 Yes [id number] Check Univers diagnostic 3-06 sugars 2-3 ity of strip 00:00: times a day. Dx Medical Code Branch E11.9. AccuChek guide me brand. blood sugar 2020-0 Yes [id number] Check Univers diagnostic 3-06 sugars 2-3 ity of strip 00:00: times a day. Dx Medical Code Branch E11.9. AccuChek guide me brand. blood sugar 2020-0 Yes [id number] Check Univers diagnostic 3-06 sugars 2-3 ity of strip 00:00: times a day. Dx Medical Code Branch E11.9. AccuChek guide me brand. blood sugar 2020-0 Yes [id number] Check Univers diagnostic 3-06 sugars 2-3 ity of strip 00:00: times a day. Dx Medical Code Branch E11.9. AccuChek guide me brand. blood sugar 2020-0 Yes [id number] Check Univers diagnostic 3-06 sugars 2-3 ity of strip 00:00: times a day. Dx Medical Code Branch E11.9. AccuChek guide me brand. losartan 2018-02 Yes [id number] 100mg Take 1 Uni vers 100 mg 1-08 tablet by ity of tablet 00:00: mouth 00 daily. For Medical blood Branch pressure atorvastati 2018-02 Yes [id number] 20mg Take 1 Univers n (LIPITOR) 1-08 tablet by ity of 20 mg 00:00: mouth at [place] tablet 00 bedtime. Medical For Branch cholestero l insulin 2018-02 Yes [id number] 30U inject 30 [facility] glargine 1-08 Units ity of (LANTUS 00:00: under the [place] U-100 00 skin at Medical INSULIN) bedtime. Branch 100 unit/mL injection hydroCHLORO 2018-02 Yes [id number] 50mg Take 1 U nivers thiazide 50 1-08 tablet by ity of mg tablet 00:00: mouth [place] 00 daily. For Medical blood Branch pressure. losartan 2018-02 Yes [id number] 100mg Take 1 Uni vers 100 mg 1-08 tablet by ity of tablet 00:00: mouth [place] 00 daily. For Medical blood Branch pressure atorvastati 2018-02 Yes [id number] 20mg Take 1 Univers n (LIPITOR) 1-08 tablet by ity of 20 mg 00:00: mouth at [place] tablet 00 bedtime. Medical For Branch cholestero l insulin 2018-02 Yes [id number] 30U inject 30 Univers glargine 1-08 Units ity of (LANTUS 00:00: under the [place] U-100 00 skin at Medical INSULIN) bedtime. Branch 100 unit/mL injection hydroCHLORO 2018-02 Yes [id number] 50mg Take 1 U nivers thiazide 50 1-08 tablet by ity of mg tablet 00:00: mouth [place] 00 daily. For Medical blood Branch pressure. losartan 2018-02 Yes [id number] 100mg Take 1 Uni vers 100 mg 1-08 tablet by ity of tablet 00:00: mouth [place] 00 daily. For Medical blood Branch pressure atorvastati 2018-02 Yes [id number] 20mg Take 1 Univers n (LIPITOR) 1-08 tablet by ity of 20 mg 00:00: mouth at [place] tablet 00 bedtime. Medical For Branch cholestero l insulin 2018-02 Yes [id number] 30U inject 30 Univers glargine 1-08 Units ity of (LANTUS 00:00: under the [place] U-100 00 skin at Medical INSULIN) bedtime. Branch 100 unit/mL injection hydroCHLORO 2018-02 Yes [id number] 50mg Take 1 U nivers thiazide 50 1-08 tablet by ity of mg tablet 00:00: mouth [place] 00 daily. For Medical blood Branch pressure. losartan 2018-02 Yes [id number] 100mg Take 1 Uni vers 100 mg 1-08 tablet by ity of tablet 00:00: mouth [place] 00 daily. For Medical blood Branch pressure atorvastati 2018-02 Yes [id number] 20mg Take 1 Univers n (LIPITOR) 1-08 tablet by ity of 20 mg 00:00: mouth at [place] tablet 00 bedtime. Medical For Branch cholestero l insulin 2018-02 Yes [id number] 30U inject 30 [facility] glargine 1-08 Units ity of (LANTUS 00:00: under the [place] U-100 00 skin at Medical INSULIN) bedtime. Branch 100 unit/mL injection hydroCHLORO 2018-02 Yes [id number] 50mg Take 1 U nivers thiazide 50 1-08 tablet by ity of mg tablet 00:00: mouth [place] 00 daily. For Medical blood Branch pressure. losartan 2018-02 Yes [id number] 100mg Take 1 Uni vers 100 mg 1-08 tablet by ity of tablet 00:00: mouth [place] 00 daily. For Medical blood Branch pressure atorvastati 2018-02 Yes [id number] 20mg Take 1 [facility] n (LIPITOR) 1-08 tablet by ity of 20 mg 00:00: mouth at [place] tablet 00 bedtime. Medical For Branch cholestero l insulin 2018-02 Yes [id number] 30U inject 30 [facility] glargine 1-08 Units ity of (LANTUS 00:00: under the [place] U-100 00 skin at Medical INSULIN) bedtime. Branch 100 unit/mL injection hydroCHLORO 2018-02 Yes [id number] 50mg Take 1 U nivers thiazide 50 1-08 tablet by ity of mg tablet 00:00: mouth [place] 00 daily. For Medical blood Branch pressure. losartan 2018-02 Yes [id number] 100mg Take 1 Uni vers 100 mg 1-08 tablet by ity of tablet 00:00: mouth [place] 00 daily. For Medical blood Branch pressure atorvastati 2018-02 Yes [id number] 20mg Take 1 [facility] n (LIPITOR) 1-08 tablet by ity of 20 mg 00:00: mouth at [place] tablet 00 bedtime. Medical For Branch cholestero l insulin 2018-02 Yes [id number] 30U inject 30 [facility] glargine 1-08 Units ity of (LANTUS 00:00: under the [place] U-100 00 skin at Medical INSULIN) bedtime. Branch 100 unit/mL injection hydroCHLORO 2018-02 Yes [id number] 50mg Take 1 U nivers thiazide 50 1-08 tablet by ity of mg tablet 00:00: mouth [place] 00 daily. For Medical blood Branch pressure. losartan 2018-02 Yes [id number] 100mg Take 1 [facility] vers 100 mg 1-08 tablet by ity of tablet 00:00: mouth [place] 00 daily. For Medical blood Branch pressure atorvastati 2018-02 Yes [id number] 20mg Take 1 [facility] n (LIPITOR) 1-08 tablet by ity of 20 mg 00:00: mouth at [place] tablet 00 bedtime. Medical For Branch cholestero l insulin 2018-02 Yes [id number] 30U inject 30 [facility] glargine 1-08 Units ity of (LANTUS 00:00: under the [place] U-100 00 skin at Medical INSULIN) bedtime. Branch 100 unit/mL injection hydroCHLORO 2018-02 Yes [id number] 50mg Take 1 U nivers thiazide 50 1-08 tablet by ity of mg tablet 00:00: mouth [place] 00 daily. For Medical blood Branch pressure. losartan 2018-02 Yes [id number] 100mg Take 1 Uni vers 100 mg 1-08 tablet by ity of tablet 00:00: mouth [place] 00 daily. For Medical blood Branch pressure atorvastati 2018-02 Yes [id number] 20mg Take 1 [facility] n (LIPITOR) 1-08 tablet by ity of 20 mg 00:00: mouth at [place] tablet 00 bedtime. Medical For Branch cholestero l insulin 2018-02 Yes [id number] 30U inject 30 [facility] glargine 1-08 Units ity of (LANTUS 00:00: under the [place] U-100 00 skin at Medical INSULIN) bedtime. Branch 100 unit/mL injection hydroCHLORO 2018-02 Yes [id number] 50mg Take 1 U nivers thiazide 50 1-08 tablet by ity of mg tablet 00:00: mouth [place] 00 daily. For Medical blood Branch pressure. losartan 2018-02 Yes [id number] 100mg Take 1 [facility] vers 100 mg 1-08 tablet by ity of tablet 00:00: mouth [place] 00 daily. For Medical blood Branch pressure atorvastati 2018-02 Yes [id number] 20mg Take 1 [facility] n (LIPITOR) 1-08 tablet by ity of 20 mg 00:00: mouth at [place] tablet 00 bedtime. [facility] cholestero l insulin 2018-02 Yes [id number] 30U inject 30 [facility] glargine 1-08 Units ity of (LANTUS 00:00: under the [place] U-100 00 skin at Medical INSULIN) bedtime. Branch 100 unit/mL injection hydroCHLORO 2018-02 Yes [id number] 50mg Take 1 U nivers thiazide 50 1-08 tablet by ity of mg tablet 00:00: mouth [place] 00 daily. For Medical blood Branch pressure. losartan 2018-02 Yes [id number] 100mg Take 1 [facility] vers 100 mg 1-08 tablet by ity of tablet 00:00: mouth [place] 00 daily. For Medical blood Branch pressure atorvastati 2018-02 Yes [id number] 20mg Take 1 [facility] n (LIPITOR) 1-08 tablet by ity of 20 mg 00:00: mouth at [place] tablet 00 bedtime. [facility] cholestero l insulin 2018-02 Yes [id number] 30U inject 30 [facility] glargine 1-08 Units ity of (LANTUS 00:00: under the [place] U-100 00 skin at Medical INSULIN) bedtime. Branch 100 unit/mL injection hydroCHLORO 2018-02 Yes [id number] 50mg Take 1 [facility] nivers thiazide 50 1-08 tablet by ity of mg tablet 00:00: mouth [place] 00 daily. For Medical blood Branch pressure. losartan 2018-02 Yes [id number] 100mg Take 1 [facility] vers 100 mg 1-08 tablet by ity of tablet 00:00: mouth [place] 00 daily. For Medical blood Branch pressure atorvastati 2018-02 Yes [id number] 20mg Take 1 [facility] n (LIPITOR) 1-08 tablet by ity of 20 mg 00:00: mouth at [place] tablet 00 bedtime. [facility] cholestero l insulin 2018-02 Yes [id number] 30U inject 30 [facility] glargine 1-08 Units ity of (LANTUS 00:00: under the [place] U-100 00 skin at Medical INSULIN) bedtime. Branch 100 unit/mL injection hydroCHLORO 2018-02 Yes [id number] 50mg Take 1 [facility] nivers thiazide 50 1-08 tablet by ity of mg tablet 00:00: mouth [place] 00 daily. For Medical blood Branch pressure. losartan 2018-02 Yes [id number] 100mg Take 1 [facility] vers 100 mg 1-08 tablet by ity of tablet 00:00: mouth [place] 00 daily. For Medical blood Branch pressure atorvastati 2018-02 Yes [id number] 20mg Take 1 [facility] n (LIPITOR) 1-08 tablet by ity of 20 mg 00:00: mouth at [place] tablet 00 bedtime. [facility] cholestero l insulin 2018-02 Yes [id number] 30U inject 30 [facility] glargine 1-08 Units ity of (LANTUS 00:00: under the [place] U-100 00 skin at Medical INSULIN) bedtime. Branch 100 unit/mL injection hydroCHLORO 2018-02 Yes [id number] 50mg Take 1 [facility] nivers thiazide 50 1-08 tablet by ity of mg tablet 00:00: mouth [place] 00 daily. For Medical blood Branch pressure. losartan 2018-02 Yes [id number] 100mg Take 1 [facility] vers 100 mg 1-08 tablet by ity of tablet 00:00: mouth [place] 00 daily. For Medical blood Branch pressure atorvastati 2018-02 Yes [id number] 20mg Take 1 [facility] n (LIPITOR) 1-08 tablet by ity of 20 mg 00:00: mouth at [place] tablet 00 bedtime. [facility] cholestero l insulin 2018-02 Yes [id number] 30U inject 30 [facility] glargine 1-08 Units ity of (LANTUS 00:00: under the [place] U-100 00 skin at Medical INSULIN) bedtime. Branch 100 unit/mL injection hydroCHLORO 2018-02 Yes [id number] 50mg Take 1 [facility] nivers thiazide 50 1-08 tablet by ity of mg tablet 00:00: mouth [place] 00 daily. For Medical blood Branch pressure. losartan 2018-02 Yes [id number] 100mg Take 1 [facility] vers 100 mg 1-08 tablet by ity of tablet 00:00: mouth [place] 00 daily. For Medical blood Branch pressure atorvastati 2018-02 Yes [id number] 20mg Take 1 [facility] n (LIPITOR) 1-08 tablet by ity of 20 mg 00:00: mouth at [place] tablet 00 bedtime. [facility] cholestero l insulin 2018-02 Yes [id number] 30U inject 30 [facility] glargine 1-08 Units ity of (LANTUS 00:00: under the [place] U-100 00 skin at Medical INSULIN) bedtime. Branch 100 unit/mL injection hydroCHLORO 2018-02 Yes [id number] 50mg Take 1 [facility] nivers thiazide 50 1-08 tablet by ity of mg tablet 00:00: mouth [place] 00 daily. For Medical blood Branch pressure. losartan 2018-02 Yes [id number] 100mg Take 1 [facility] vers 100 mg 1-08 tablet by ity of tablet 00:00: mouth [place] 00 daily. For Medical blood Branch pressure atorvastati 2018-02 Yes [id number] 20mg Take 1 [facility] n (LIPITOR) 1-08 tablet by ity of 20 mg 00:00: mouth at [place] tablet 00 bedtime. [facility] cholestero l insulin 2018-02 Yes [id number] 30U inject 30 [facility] glargine 1-08 Units ity of (LANTUS 00:00: under the [place] U-100 00 skin at Medical INSULIN) bedtime. Branch 100 unit/mL injection hydroCHLORO 2018-02 Yes [id number] 50mg Take 1 [facility] nivers thiazide 50 1-08 tablet by ity of mg tablet 00:00: mouth [place] 00 daily. For Medical blood Branch pressure. losartan 2018-02 Yes [id number] 100mg Take 1 [facility] vers 100 mg 1-08 tablet by ity of tablet 00:00: mouth [place] 00 daily. For Medical blood Branch pressure atorvastati 2018-02 Yes [id number] 20mg Take 1 [facility] n (LIPITOR) 1-08 tablet by ity of 20 mg 00:00: mouth at [place] tablet 00 bedtime. [facility] cholestero l insulin 2018-02 Yes [id number] 30U inject 30 [facility] glargine 1-08 Units ity of (LANTUS 00:00: under the [place] U-100 00 skin at Medical INSULIN) bedtime. Branch 100 unit/mL injection hydroCHLORO 2018-02 Yes [id number] 50mg Take 1 [facility] nivers thiazide 50 1-08 tablet by ity of mg tablet 00:00: mouth [place] 00 daily. For Medical blood Branch pressure. losartan 2018-02 Yes [id number] 100mg Take 1 [facility] vers 100 mg 1-08 tablet by ity of tablet 00:00: mouth [place] 00 daily. For Medical blood Branch pressure atorvastati 2018-02 Yes [id number] 20mg Take 1 [facility] n (LIPITOR) 1-08 tablet by ity of 20 mg 00:00: mouth at [place] tablet 00 bedtime. [facility] cholestero l insulin 2018-02 Yes [id number] 30U inject 30 [facility] glargine 1-08 Units ity of (LANTUS 00:00: under the [place] U-100 00 skin at Medical INSULIN) bedtime. Branch 100 unit/mL injection hydroCHLORO 2018-02 Yes [id number] 50mg Take 1 [facility] nivers thiazide 50 1-08 tablet by ity of mg tablet 00:00: mouth [place] 00 daily. For Medical blood Branch pressure. losartan 2018-02 Yes [id number] 100mg Take 1 [facility] vers 100 mg 1-08 tablet by ity of tablet 00:00: mouth [place] 00 daily. For Medical blood Branch pressure atorvastati 2018-02 Yes [id number] 20mg Take 1 [facility] n (LIPITOR) 1-08 tablet by ity of 20 mg 00:00: mouth at [place] tablet 00 bedtime. [facility] cholestero l insulin 2018-02 Yes [id number] 30U inject 30 [facility] glargine 1-08 Units ity of (LANTUS 00:00: under the [place] U-100 00 skin at Medical INSULIN) bedtime. Branch 100 unit/mL injection hydroCHLORO 2018-02 Yes [id number] 50mg Take 1 [facility] nivers thiazide 50 1-08 tablet by ity of mg tablet 00:00: mouth [place] 00 daily. For Medical blood Branch pressure. losartan 2018-02 Yes [id number] 100mg Take 1 [facility] vers 100 mg 1-08 tablet by ity of tablet 00:00: mouth [place] 00 daily. For Medical blood Branch pressure atorvastati 2018-02 Yes [id number] 20mg Take 1 [facility] n (LIPITOR) 1-08 tablet by ity of 20 mg 00:00: mouth at [place] tablet 00 bedtime. [facility] cholestero l insulin 2018-02 Yes [id number] 30U inject 30 [facility] glargine 1-08 Units ity of (LANTUS 00:00: under the [place] U-100 00 skin at Medical INSULIN) bedtime. Branch 100 unit/mL injection hydroCHLORO 2018-02 Yes [id number] 50mg Take 1 [facility] nivers thiazide 50 1-08 tablet by ity of mg tablet 00:00: mouth [place] 00 daily. For Medical blood Branch pressure. losartan 2018-02 Yes [id number] 100mg Take 1 [facility] vers 100 mg 1-08 tablet by ity of tablet 00:00: mouth [place] 00 daily. For Medical blood Branch pressure atorvastati 2018-02 Yes [id number] 20mg Take 1 [facility] n (LIPITOR) 1-08 tablet by ity of 20 mg 00:00: mouth at [place] tablet 00 bedtime. [facility] cholestero l insulin 2018-02 Yes [id number] 30U inject 30 [facility] glargine 1-08 Units ity of (LANTUS 00:00: under the [place] U-100 00 skin at Medical INSULIN) bedtime. Branch 100 unit/mL injection hydroCHLORO 2018-02 Yes [id number] 50mg Take 1 U nivers thiazide 50 1-08 tablet by ity of mg tablet 00:00: mouth [place] 00 daily. For Medical blood Branch pressure. losartan 2018-02 Yes [id number] 100mg Take 1 [facility] vers 100 mg 1-08 tablet by ity of tablet 00:00: mouth [place] 00 daily. For Medical blood Branch pressure atorvastati 2018-02 Yes [id number] 20mg Take 1 [facility] n (LIPITOR) 1-08 tablet by ity of 20 mg 00:00: mouth at [place] tablet 00 bedtime. [facility] For [facility] cholestero l insulin 2018-02 Yes [id number] 30U inject 30 [facility] glargine 1-08 Units ity of (LANTUS 00:00: under the [place] U-100 00 skin at Medical INSULIN) bedtime. Branch 100 unit/mL injection hydroCHLORO 2018-02 Yes [id number] 50mg Take 1 U nivers thiazide 50 1-08 tablet by ity of mg tablet 00:00: mouth [place] 00 daily. For Medical blood Branch pressure. losartan 2018-02 Yes [id number] 100mg Take 1 [facility] vers 100 mg 1-08 tablet by ity of tablet 00:00: mouth [place] 00 daily. For Medical blood Branch pressure atorvastati 2018-02 Yes [id number] 20mg Take 1 [facility] n (LIPITOR) 1-08 tablet by ity of 20 mg 00:00: mouth at [place] tablet 00 bedtime. [facility] cholestero l insulin 2018-02 Yes [id number] 30U inject 30 [facility] glargine 1-08 Units ity of (LANTUS 00:00: under the [place] U-100 00 skin at Medical INSULIN) bedtime. Branch 100 unit/mL injection hydroCHLORO 2018-02 Yes [id number] 50mg Take 1 U nivers thiazide 50 1-08 tablet by ity of mg tablet 00:00: mouth [place] 00 daily. For Medical blood Branch pressure. losartan 2018-02 Yes [id number] 100mg Take 1 [facility] vers 100 mg 1-08 tablet by ity of tablet 00:00: mouth [place] 00 daily. For Medical blood Branch pressure atorvastati 2018-02 Yes [id number] 20mg Take 1 [facility] n (LIPITOR) 1-08 tablet by ity of 20 mg 00:00: mouth at [place] tablet 00 bedtime. [facility] For [facility] cholestero l insulin 2018-02 Yes [id number] 30U inject 30 [facility] glargine 1-08 Units ity of (LANTUS 00:00: under the [place] U-100 00 skin at Medical INSULIN) bedtime. Branch 100 unit/mL injection hydroCHLORO 2018-02 Yes [id number] 50mg Take 1 U nivers thiazide 50 1-08 tablet by ity of mg tablet 00:00: mouth [place] 00 daily. For Medical blood Branch pressure. insulin 2018-02 Yes [id number] 5U inject 5 U nivers regular 0-14 Units ity of human 00:00: under the [place] (HUMULIN R 00 skin 3 Medical REGULAR (three) Branch U-100 times INSULN) 100 daily unit/mL before injection meals. insulin 2018-02 Yes [id number] 5U inject 5 U nivers regular 0-14 Units ity of human 00:00: under the [place] (HUMULIN R 00 skin 3 Medical REGULAR (three) Branch U-100 times INSULN) 100 daily unit/mL before injection meals. insulin 2018-02 Yes [id number] 5U inject 5 U nivers regular 0-14 Units ity of human 00:00: under the [place] (HUMULIN R 00 skin 3 Medical REGULAR (three) Branch U-100 times INSULN) 100 daily unit/mL before injection meals. insulin 2018-02 Yes [id number] 5U inject 5 U nivers regular 0-14 Units ity of human 00:00: under the [place] (HUMULIN R 00 skin 3 Medical REGULAR (three) Branch U-100 times INSULN) 100 daily unit/mL before injection meals. insulin 2018-02 Yes [id number] 5U inject 5 U nivers regular 0-14 Units ity of human 00:00: under the [place] (HUMULIN R 00 skin 3 Medical REGULAR (three) Branch U-100 times INSULN) 100 daily unit/mL before injection meals. insulin 2018-02 Yes [id number] 5U inject 5 U nivers regular 0-14 Units ity of human 00:00: under the [place] (HUMULIN R 00 skin 3 Medical REGULAR (three) Branch U-100 times INSULN) 100 daily unit/mL before injection meals. insulin 2018-02 Yes [id number] 5U inject 5 U nivers regular 0-14 Units ity of human 00:00: under the [place] (HUMULIN R 00 skin 3 Medical REGULAR (three) Branch U-100 times INSULN) 100 daily unit/mL before injection meals. insulin 2018-02 Yes [id number] 5U inject 5 U nivers regular 0-14 Units ity of human 00:00: under the [place] (HUMULIN R 00 skin 3 Medical REGULAR (three) Branch U-100 times INSULN) 100 daily unit/mL before injection meals. insulin 2018-02 Yes [id number] 5U inject 5 U nivers regular 0-14 Units ity of human 00:00: under the [place] (HUMULIN R 00 skin 3 Medical REGULAR (three) Branch U-100 times INSULN) 100 daily unit/mL before injection meals. insulin 2018-02 Yes [id number] 5U inject 5 U nivers regular 0-14 Units ity of human 00:00: under the [place] (HUMULIN R 00 skin 3 Medical REGULAR (three) Branch U-100 times INSULN) 100 daily unit/mL before injection meals. insulin 2018-02 Yes [id number] 5U inject 5 U nivers regular 0-14 Units ity of human 00:00: under the [place] (HUMULIN R 00 skin 3 Medical REGULAR (three) Branch U-100 times INSULN) 100 daily unit/mL before injection meals. insulin 2018-02 Yes [id number] 5U inject 5 U nivers regular 0-14 Units ity of human 00:00: under the [place] (HUMULIN R 00 skin 3 Medical REGULAR (three) Branch U-100 times INSULN) 100 daily unit/mL before injection meals. insulin 2018-02 Yes [id number] 5U inject 5 U nivers regular 0-14 Units ity of human 00:00: under the [place] (HUMULIN R 00 skin 3 Medical REGULAR (three) Branch U-100 times INSULN) 100 daily unit/mL before injection meals. insulin 2018-02 Yes [id number] 5U inject 5 U nivers regular 0-14 Units ity of human 00:00: under the [place] (HUMULIN R 00 skin 3 Medical REGULAR (three) Branch U-100 times INSULN) 100 daily unit/mL before injection meals. insulin 2018-02 Yes [id number] 5U inject 5 U nivers regular 0-14 Units ity of human 00:00: under the [place] (HUMULIN R 00 skin 3 Medical REGULAR (three) Branch U-100 times INSULN) 100 daily unit/mL before injection meals. insulin 2018-02 Yes [id number] 5U inject 5 U nivers regular 0-14 Units ity of human 00:00: under the [place] (HUMULIN R 00 skin 3 Medical REGULAR (three) Branch U-100 times INSULN) 100 daily unit/mL before injection meals. insulin 2018-02 Yes [id number] 5U inject 5 U nivers regular 0-14 Units ity of human 00:00: under the [place] (HUMULIN R 00 skin 3 Medical REGULAR (three) Branch U-100 times INSULN) 100 daily unit/mL before injection meals. insulin 2018-02 Yes [id number] 5U inject 5 U nivers regular 0-14 Units ity of human 00:00: under the [place] (HUMULIN R 00 skin 3 Medical REGULAR (three) Branch U-100 times INSULN) 100 daily unit/mL before injection meals. insulin 2018-02 Yes [id number] 5U inject 5 U nivers regular 0-14 Units ity of human 00:00: under the [place] (HUMULIN R 00 skin 3 Medical REGULAR (three) Branch U-100 times INSULN) 100 daily unit/mL before injection meals. insulin 2018-02 Yes [id number] 5U inject 5 U nivers regular 0-14 Units ity of human 00:00: under the [place] (HUMULIN R 00 skin 3 Medical REGULAR (three) Branch U-100 times INSULN) 100 daily unit/mL before injection meals. insulin 2018-02 Yes [id number] 5U inject 5 U nivers regular 0-14 Units ity of human 00:00: under the [place] (HUMULIN R 00 skin 3 Medical REGULAR (three) Branch U-100 times INSULN) 100 daily unit/mL before injection meals. insulin 2018-02 Yes [id number] 5U inject 5 U nivers regular 0-14 Units ity of human 00:00: under the [place] (HUMULIN R 00 skin 3 Medical REGULAR (three) Branch U-100 times INSULN) 100 daily unit/mL before injection meals. insulin 2018-02 Yes [id number] 5U inject 5 U nivers regular 0-14 Units ity of human 00:00: under the [place] (HUMULIN R 00 skin 3 Medical REGULAR (three) Branch U-100 times INSULN) 100 daily unit/mL before injection meals. meloxicam Yes [id number] 15mg Take 1 U nivers 15 mg 9-09 tablet by ity of tablet 00:00: mouth [place] 00 daily. [facility] Branch meloxicam Yes [id number] 15mg Take 1 U nivers 15 mg 9-09 tablet by ity of tablet 00:00: mouth [place] 00 daily. [facility] Branch meloxicam Yes [id number] 15mg Take 1 U nivers 15 mg 9-09 tablet by ity of tablet 00:00: mouth [place] 00 daily. [facility] Branch meloxicam Yes [id number] 15mg Take 1 U nivers 15 mg 9-09 tablet by ity of tablet 00:00: mouth [place] 00 daily. [facility] Branch meloxicam Yes [id number] 15mg Take 1 U nivers 15 mg 9-09 tablet by ity of tablet 00:00: mouth [place] 00 daily. [facility] Branch meloxicam Yes [id number] 15mg Take 1 U nivers 15 mg 9-09 tablet by ity of tablet 00:00: mouth [place] 00 daily. [facility] Branch meloxicam Yes [id number] 15mg Take 1 U nivers 15 mg 9-09 tablet by ity of tablet 00:00: mouth [place] 00 daily. [facility] Branch meloxicam Yes [id number] 15mg Take 1 U nivers 15 mg 9-09 tablet by ity of tablet 00:00: mouth [place] 00 daily. [facility] Branch meloxicam Yes [id number] 15mg Take 1 U nivers 15 mg 9-09 tablet by ity of tablet 00:00: mouth [place] 00 daily. Medical Branch meloxicam 2019-0 Yes [id number] 15mg Take 1 U nivers 15 mg 9-09 tablet by ity of tablet 00:00: mouth [place] 00 daily. [facility] Branch meloxicam 2018-0 Yes [id number] 15mg Take 1 U nivers 15 mg 9-09 tablet by ity of tablet 00:00: mouth [place] 00 daily. [facility] Branch meloxicam 2018-0 Yes [id number] 15mg Take 1 U nivers 15 mg 9-09 tablet by ity of tablet 00:00: mouth [place] 00 daily. [facility] Branch meloxicam 0 Yes [id number] 15mg Take 1 U nivers 15 mg 9-09 tablet by ity of tablet 00:00: mouth [place] 00 daily. [facility] Branch meloxicam 0 Yes [id number] 15mg Take 1 U nivers 15 mg 9-09 tablet by ity of tablet 00:00: mouth [place] 00 daily. [facility] Branch meloxicam 2018-0 Yes [id number] 15mg Take 1 U nivers 15 mg 9-09 tablet by ity of tablet 00:00: mouth [place] 00 daily. [facility] Branch meloxicam 0 Yes [id number] 15mg Take 1 U nivers 15 mg 9-09 tablet by ity of tablet 00:00: mouth [place] 00 daily. [facility] Branch meloxicam 0 Yes [id number] 15mg Take 1 U nivers 15 mg 9-09 tablet by ity of tablet 00:00: mouth [place] 00 daily. [facility] Branch meloxicam 0 Yes [id number] 15mg Take 1 U nivers 15 mg 9-09 tablet by ity of tablet 00:00: mouth [place] 00 daily. [facility] Branch meloxicam 2018-0 Yes [id number] 15mg Take 1 U nivers 15 mg 9-09 tablet by ity of tablet 00:00: mouth [place] 00 daily. [facility] Branch meloxicam 2019-0 Yes [id number] 15mg Take 1 U nivers 15 mg 9-09 tablet by ity of tablet 00:00: mouth [place] 00 daily. [facility] Branch meloxicam 2018-0 Yes [id number] 15mg Take 1 U nivers 15 mg 9-09 tablet by ity of tablet 00:00: mouth [place] 00 daily. [facility] Branch meloxicam 2018-0 Yes [id number] 15mg Take 1 U nivers 15 mg 9-09 tablet by ity of tablet 00:00: mouth [place] 00 daily. Medical Branch meloxicam 2019- Yes [id number] 15mg Take 1 U nivers 15 mg 9-09 tablet by ity of tablet 00:00: mouth [place] 00 daily. Medical Branch cholecalcif 2018- Yes [id number] Unsure of [facility] tamika, 7-08 dose. ity of vitamin D3, 00:00: [place] 1,000 unit 00 Medical tablet Branch vitamin 2019-0 Yes [id number] 5000ug Take 5 U nivers B-12 1,000 7-08 tablets by ity of mcg tablet 00:00: mouth [place] 00 daily. Medical Branch vitamin B-1 Yes [id number] 50mg Take 1 [facility] (VITAMIN 7-08 tablet by ity of B-1) 50 mg 00:00: mouth [place] tablet 00 daily. Medical Branch cholecalcif Yes [id number] Unsure of [facility] tamika, 7-08 dose. ity of vitamin D3, 00:00: [place] 1,000 unit 00 Medical tablet Branch vitamin 2019- Yes [id number] 5000ug Take 5 U nivers B-12 1,000 7-08 tablets by ity of mcg tablet 00:00: mouth [place] 00 daily. Medical Branch vitamin B-1 Yes [id number] 50mg Take 1 [facility] (VITAMIN 7-08 tablet by ity of B-1) 50 mg 00:00: mouth [place] tablet 00 daily. Medical Branch cholecalcif Yes [id number] Unsure of [facility] tamika, 7-08 dose. ity of vitamin D3, 00:00: [place] 1,000 unit 00 Medical tablet Branch vitamin 2019-0 Yes [id number] 5000ug Take 5 U nivers B-12 1,000 7-08 tablets by ity of mcg tablet 00:00: mouth [place] 00 daily. Medical Branch vitamin B-1 2018- Yes [id number] 50mg Take 1 [facility] (VITAMIN 7-08 tablet by ity of B-1) 50 mg 00:00: mouth [place] tablet 00 daily. Medical Branch cholecalcif Yes [id number] Unsure of [facility] tamika, 7-08 dose. ity of vitamin D3, 00:00: [place] 1,000 unit 00 Medical tablet Branch vitamin 2019- Yes [id number] 5000ug Take 5 U nivers B-12 1,000 7-08 tablets by ity of mcg tablet 00:00: mouth [place] 00 daily. Medical Branch vitamin B-1 Yes [id number] 50mg Take 1 [facility] (VITAMIN 7-08 tablet by ity of B-1) 50 mg 00:00: mouth [place] tablet 00 daily. Medical Branch cholecalcif Yes [id number] Unsure of [facility] tamika, 7-08 dose. ity of vitamin D3, 00:00: [place] 1,000 unit 00 Medical tablet Branch vitamin 2018-0 Yes [id number] 5000ug Take 5 U nivers B-12 1,000 7-08 tablets by ity of mcg tablet 00:00: mouth [place] 00 daily. Medical Branch vitamin B-1 Yes [id number] 50mg Take 1 [facility] (VITAMIN 7-08 tablet by ity of B-1) 50 mg 00:00: mouth [place] tablet 00 daily. Medical Branch cholecalcif Yes [id number] Unsure of [facility] tamika, 7-08 dose. ity of vitamin D3, 00:00: [place] 1,000 unit 00 Medical tablet Branch vitamin 2018-0 Yes [id number] 5000ug Take 5 U nivers B-12 1,000 7-08 tablets by ity of mcg tablet 00:00: mouth [place] 00 daily. Medical Branch vitamin B-1 Yes [id number] 50mg Take 1 [facility] (VITAMIN 7-08 tablet by ity of B-1) 50 mg 00:00: mouth [place] tablet 00 daily. Medical Branch cholecalcif 2018- Yes [id number] Unsure of [facility] tamika, 7-08 dose. ity of vitamin D3, 00:00: [place] 1,000 unit 00 Medical tablet Branch vitamin 2018-0 Yes [id number] 5000ug Take 5 U nivers B-12 1,000 7-08 tablets by ity of mcg tablet 00:00: mouth [place] 00 daily. Medical Branch vitamin B-1 Yes [id number] 50mg Take 1 [facility] (VITAMIN 7-08 tablet by ity of B-1) 50 mg 00:00: mouth [place] tablet 00 daily. Medical Branch cholecalcif 2018- Yes [id number] Unsure of [facility] tamika, 7-08 dose. ity of vitamin D3, 00:00: [place] 1,000 unit 00 Medical tablet Branch vitamin 2019- Yes [id number] 5000ug Take 5 U nivers B-12 1,000 7-08 tablets by ity of mcg tablet 00:00: mouth [place] 00 daily. Medical Branch vitamin B-1 Yes [id number] 50mg Take 1 [facility] (VITAMIN 7-08 tablet by ity of B-1) 50 mg 00:00: mouth [place] tablet 00 daily. Medical Branch cholecalcif Yes [id number] Unsure of [facility] tamika, 7-08 dose. ity of vitamin D3, 00:00: [place] 1,000 unit 00 Medical tablet Branch vitamin Yes [id number] 5000ug Take 5 U nivers B-12 1,000 7-08 tablets by ity of mcg tablet 00:00: mouth [place] 00 daily. Medical Branch vitamin B-1 Yes [id number] 50mg Take 1 [facility] (VITAMIN 7-08 tablet by ity of B-1) 50 mg 00:00: mouth [place] tablet 00 daily. Medical Branch cholecalcif Yes [id number] Unsure of [facility] tamika, 7-08 dose. ity of vitamin D3, 00:00: [place] 1,000 unit 00 Medical tablet Branch vitamin 2018- Yes [id number] 5000ug Take 5 U nivers B-12 1,000 7-08 tablets by ity of mcg tablet 00:00: mouth [place] 00 daily. Medical Branch vitamin B-1 Yes [id number] 50mg Take 1 [facility] (VITAMIN 7-08 tablet by ity of B-1) 50 mg 00:00: mouth [place] tablet 00 daily. Medical Branch cholecalcif Yes [id number] Unsure of [facility] tamika, 7-08 dose. ity of vitamin D3, 00:00: [place] 1,000 unit 00 Medical tablet Branch vitamin 2018- Yes [id number] 5000ug Take 5 U nivers B-12 1,000 7-08 tablets by ity of mcg tablet 00:00: mouth [place] 00 daily. Medical Branch vitamin B-1 Yes [id number] 50mg Take 1 [facility] (VITAMIN 7-08 tablet by ity of B-1) 50 mg 00:00: mouth [place] tablet 00 daily. Medical Branch cholecalcif Yes [id number] Unsure of [facility] tamika, 7-08 dose. ity of vitamin D3, 00:00: [place] 1,000 unit 00 Medical tablet Branch vitamin 2019-0 Yes [id number] 5000ug Take 5 U nivers B-12 1,000 7-08 tablets by ity of mcg tablet 00:00: mouth [place] 00 daily. Medical Branch vitamin B-1 Yes [id number] 50mg Take 1 [facility] (VITAMIN 7-08 tablet by ity of B-1) 50 mg 00:00: mouth [place] tablet 00 daily. Medical Branch cholecalcif Yes [id number] Unsure of [facility] tamika, 7-08 dose. ity of vitamin D3, 00:00: [place] 1,000 unit 00 Medical tablet Branch vitamin 2018- Yes [id number] 5000ug Take 5 U nivers B-12 1,000 7-08 tablets by ity of mcg tablet 00:00: mouth [place] 00 daily. Medical Branch vitamin B-1 Yes [id number] 50mg Take 1 [facility] (VITAMIN 7-08 tablet by ity of B-1) 50 mg 00:00: mouth [place] tablet 00 daily. Medical Branch cholecalcif Yes [id number] Unsure of [facility] tamika, 7-08 dose. ity of vitamin D3, 00:00: [place] 1,000 unit 00 Medical tablet Branch vitamin 2019-0 Yes [id number] 5000ug Take 5 U nivers B-12 1,000 7-08 tablets by ity of mcg tablet 00:00: mouth [place] 00 daily. Medical Branch vitamin B-1 Yes [id number] 50mg Take 1 [facility] (VITAMIN 7-08 tablet by ity of B-1) 50 mg 00:00: mouth [place] tablet 00 daily. [facility] cholecalcif 2018- Yes [id number] Unsure of [facility] tamika, 7-08 dose. ity of vitamin D3, 00:00: [place] 1,000 unit 00 Medical tablet Branch vitamin 2019-0 Yes [id number] 5000ug Take 5 U nivers B-12 1,000 7-08 tablets by ity of mcg tablet 00:00: mouth [place] 00 daily. Medical Branch vitamin B-1 Yes [id number] 50mg Take 1 [facility] (VITAMIN 7-08 tablet by ity of B-1) 50 mg 00:00: mouth [place] tablet 00 daily. [facility] cholecalcif 2018- Yes [id number] Unsure of [facility] tamika, 7-08 dose. ity of vitamin D3, 00:00: [place] 1,000 unit 00 Medical tablet Branch vitamin 2018-0 Yes [id number] 5000ug Take 5 U nivers B-12 1,000 7-08 tablets by ity of mcg tablet 00:00: mouth [place] 00 daily. [facility] vitamin B-1 2018- Yes [id number] 50mg Take 1 [facility] (VITAMIN 7-08 tablet by ity of B-1) 50 mg 00:00: mouth [place] tablet 00 daily. [facility] cholecalcif Yes [id number] Unsure of [facility] tamika, 7-08 dose. ity of vitamin D3, 00:00: [place] 1,000 unit 00 Medical tablet Branch vitamin 2018- Yes [id number] 5000ug Take 5 U nivers B-12 1,000 7-08 tablets by ity of mcg tablet 00:00: mouth [place] 00 daily. Medical [facility] vitamin B-1 Yes [id number] 50mg Take 1 [facility] (VITAMIN 7-08 tablet by ity of B-1) 50 mg 00:00: mouth [place] tablet 00 daily. [facility] cholecalcif 2018- Yes [id number] Unsure of [facility] tamika, 7-08 dose. ity of vitamin D3, 00:00: [place] 1,000 unit 00 Medical tablet Branch vitamin 2019-0 Yes [id number] 5000ug Take 5 U nivers B-12 1,000 7-08 tablets by ity of mcg tablet 00:00: mouth [place] 00 daily. [facility] vitamin B-1 2018- Yes [id number] 50mg Take 1 [facility] (VITAMIN 7-08 tablet by ity of B-1) 50 mg 00:00: mouth [place] tablet 00 daily. [facility] cholecalcif 2018- Yes [id number] Unsure of [facility] tamika, 7-08 dose. ity of vitamin D3, 00:00: [place] 1,000 unit 00 Medical tablet Branch vitamin 2018- Yes [id number] 5000ug Take 5 U nivers B-12 1,000 7-08 tablets by ity of mcg tablet 00:00: mouth [place] 00 daily. [facility] vitamin B-1 2018- Yes [id number] 50mg Take 1 [facility] (VITAMIN 7-08 tablet by ity of B-1) 50 mg 00:00: mouth [place] tablet 00 daily. [facility] cholecalcif 2018- Yes [id number] Unsure of [facility] tamika, 7-08 dose. ity of vitamin D3, 00:00: [place] 1,000 unit 00 Medical tablet Branch vitamin 2019-0 Yes [id number] 5000ug Take 5 U nivers B-12 1,000 7-08 tablets by ity of mcg tablet 00:00: mouth [place] 00 daily. [facility] vitamin B-1 2018- Yes [id number] 50mg Take 1 [facility] (VITAMIN 7-08 tablet by ity of B-1) 50 mg 00:00: mouth [place] tablet 00 daily. [facility] cholecalcif Yes [id number] Unsure of [facility] tamika, 7-08 dose. ity of vitamin D3, 00:00: [place] 1,000 unit 00 Medical tablet Branch vitamin 2019-0 Yes [id number] 5000ug Take 5 U nivers B-12 1,000 7-08 tablets by ity of mcg tablet 00:00: mouth [place] 00 daily. [facility] vitamin B-1 Yes [id number] 50mg Take 1 [facility] (VITAMIN 7-08 tablet by ity of B-1) 50 mg 00:00: mouth [place] tablet 00 daily. [facility] cholecalcif 2018- Yes [id number] Unsure of [facility] tamika, 7-08 dose. ity of vitamin D3, 00:00: [place] 1,000 unit 00 Medical tablet Branch vitamin 2019-0 Yes [id number] 5000ug Take 5 U nivers B-12 1,000 7-08 tablets by ity of mcg tablet 00:00: mouth [place] 00 daily. [facility] vitamin B-1 2018- Yes [id number] 50mg Take 1 [facility] (VITAMIN 7-08 tablet by ity of B-1) 50 mg 00:00: mouth [place] tablet 00 daily. [facility] cholecalcif 2018- Yes [id number] Unsure of [facility] tamika, 7-08 dose. ity of vitamin D3, 00:00: [place] 1,000 unit 00 Medical tablet Branch vitamin 2019-0 Yes [id number] 5000ug Take 5 U nivers B-12 1,000 7-08 tablets by ity of mcg tablet 00:00: mouth [place] 00 daily. [facility] vitamin B-1 2018-0 Yes [id number] 50mg Take 1 [facility] (VITAMIN 7-08 tablet by ity of B-1) 50 mg 00:00: mouth [place] tablet 00 daily. [facility] turmeric 2018-0 Yes [id number] 1{tbl} Take 1 [facility] root 4-11 tablet by ity of extract 500 00:00: mouth [place] mg Cap 00 daily. Medical [facility] turmeric 2018-0 Yes [id number] 1{tbl} Take 1 [facility] root 4-11 tablet by ity of extract 500 00:00: mouth [place] mg Cap 00 daily. [facility] Branch turmeric 0 Yes [id number] 1{tbl} Take 1 [facility] root 4-11 tablet by ity of extract 500 00:00: mouth [place] mg Cap 00 daily. Medical Branch turmeric Yes [id number] 1{tbl} Take 1 [facility] root 4-11 tablet by ity of extract 500 00:00: mouth [place] mg Cap 00 daily. Medical Branch turmeric Yes [id number] 1{tbl} Take 1 [facility] root 4-11 tablet by ity of extract 500 00:00: mouth [place] mg Cap 00 daily. Medical Branch turmeric Yes [id number] 1{tbl} Take 1 [facility] root 4-11 tablet by ity of extract 500 00:00: mouth [place] mg Cap 00 daily. Medical Branch turmeric Yes [id number] 1{tbl} Take 1 [facility] root 4-11 tablet by ity of extract 500 00:00: mouth [place] mg Cap 00 daily. [facility] turmeric 2018-0 Yes [id number] 1{tbl} Take 1 [facility] root 4-11 tablet by ity of extract 500 00:00: mouth [place] mg Cap 00 daily. [facility] turmeric 0 Yes [id number] 1{tbl} Take 1 [facility] root 4-11 tablet by ity of extract 500 00:00: mouth [place] mg Cap 00 daily. [facility] turmeric 0 Yes [id number] 1{tbl} Take 1 [facility] root 4-11 tablet by ity of extract 500 00:00: mouth [place] mg Cap 00 daily. [facility] turmeric 2018- Yes [id number] 1{tbl} Take 1 [facility] root 4-11 tablet by ity of extract 500 00:00: mouth [place] mg Cap 00 daily. [facility] turmeric 2019-0 Yes [id number] 1{tbl} Take 1 [facility] root 4-11 tablet by ity of extract 500 00:00: mouth [place] mg Cap 00 daily. [facility] turmeric 0 Yes [id number] 1{tbl} Take 1 [facility] root 4-11 tablet by ity of extract 500 00:00: mouth [place] mg Cap 00 daily. [facility] turmeric 0 Yes [id number] 1{tbl} Take 1 [facility] root 4-11 tablet by ity of extract 500 00:00: mouth [place] mg Cap 00 daily. [facility] turmeric 0 Yes [id number] 1{tbl} Take 1 [facility] root 4-11 tablet by ity of extract 500 00:00: mouth [place] mg Cap 00 daily. [facility] turmeric Yes [id number] 1{tbl} Take 1 [facility] root 4-11 tablet by ity of extract 500 00:00: mouth [place] mg Cap 00 daily. Medical Branch turmeric Yes [id number] 1{tbl} Take 1 [facility] root 4-11 tablet by ity of extract 500 00:00: mouth [place] mg Cap 00 daily. [facility] turmeric Yes [id number] 1{tbl} Take 1 [facility] root 4-11 tablet by ity of extract 500 00:00: mouth [place] mg Cap 00 daily. [facility] turmeric Yes [id number] 1{tbl} Take 1 [facility] root 4-11 tablet by ity of extract 500 00:00: mouth [place] mg Cap 00 daily. Medical Branch turmeric 0 Yes [id number] 1{tbl} Take 1 [facility] root 4-11 tablet by ity of extract 500 00:00: mouth [place] mg Cap 00 daily. [facility] turmeric 0 Yes [id number] 1{tbl} Take 1 [facility] root 4-11 tablet by ity of extract 500 00:00: mouth [place] mg Cap 00 daily. Medical Branch turmeric 0 Yes [id number] 1{tbl} Take 1 [facility] root 4-11 tablet by ity of extract 500 00:00: mouth [place] mg Cap 00 daily. Medical Branch turmeric 0 Yes [id number] 1{tbl} Take 1 [facility] root 4-11 tablet by ity of extract 500 00:00: mouth [place] mg Cap 00 daily. Medical Branch Insulin Yes Check [facility] Syringes, 1-22 Fingerstic ity of Disposable, 00:00: k blood [place] 1 mL Syrg 00 glucose Medical qid. Branch Please dispense the relion syringes. RX#[id number] 4 ICD-E11.9 Insulin Yes Check [facility] Syringes, 1-22 Fingerstic ity of Disposable, 00:00: k blood [place] 1 mL Syrg 00 glucose Medical qid. Branch Please dispense the relion syringes. RX#[id number] 4 ICD-E11.9 Insulin Yes Check [facility] Syringes, 1-22 Fingerstic ity of Disposable, 00:00: k blood [place] 1 mL Syrg 00 glucose Medical qid. Branch Please dispense the relion syringes. RX#[id number] 4 ICD-E11.9 Insulin Yes Check [facility] Syringes, 1-22 Fingerstic ity of Disposable, 00:00: k blood [place] 1 mL Syrg 00 glucose Medical qid. Branch Please dispense the relion syringes. RX#[id number] 4 ICD-E11.9 Insulin Yes Check [facility] Syringes, 1-22 Fingerstic ity of Disposable, 00:00: k blood [place] 1 mL Syrg 00 glucose Medical qid. Branch Please dispense the relion syringes. RX#[id number] 4 ICD-E11.9 Insulin Yes Check [facility] Syringes, 1-22 Fingerstic ity of Disposable, 00:00: k blood [place] 1 mL Syrg 00 glucose Medical qid. Branch Please dispense the relion syringes. RX#[id number] 4 ICD-E11.9 Insulin Yes Check [facility] Syringes, 1-22 Fingerstic ity of Disposable, 00:00: k blood [place] 1 mL Syrg 00 glucose Medical qid. Branch Please dispense the relion syringes. RX#[id number] 4 ICD-E11.9 Insulin Yes Check [facility] Syringes, 1-22 Fingerstic ity of Disposable, 00:00: k blood [place] 1 mL Syrg 00 glucose Medical qid. Branch Please dispense the relion syringes. RX#[id number] 4 ICD-E11.9 Insulin Yes Check [facility] Syringes, 1-22 Fingerstic ity of Disposable, 00:00: k blood [place] 1 mL Syrg 00 glucose Medical qid. Branch Please dispense the relion syringes. RX#[id number] 4 ICD-E11.9 Insulin 0 Yes Check [facility] Syringes, 1-22 Fingerstic ity of Disposable, 00:00: k blood [place] 1 mL Syrg 00 glucose Medical qid. Branch Please dispense the relion syringes. RX#[id number] 4 ICD-E11.9 Insulin 0 Yes Check [facility] Syringes, 1-22 Fingerstic ity of Disposable, 00:00: k blood [place] 1 mL Syrg 00 glucose Medical qid. Branch Please dispense the relion syringes. RX#[id number] 4 ICD-E11.9 Insulin Yes Check [facility] Syringes, 1-22 Fingerstic ity of Disposable, 00:00: k blood [place] 1 mL Syrg 00 glucose Medical qid. Branch Please dispense the relion syringes. RX#[id number] 4 ICD-E11.9 Insulin Yes Check [facility] Syringes, 1-22 Fingerstic ity of Disposable, 00:00: k blood [place] 1 mL Syrg 00 glucose Medical qid. Branch Please dispense the relion syringes. RX#[id number] 4 ICD-E11.9 Insulin 0 Yes Check [facility] Syringes, 1-22 Fingerstic ity of Disposable, 00:00: k blood [place] 1 mL Syrg 00 glucose Medical qid. Branch Please dispense the relion syringes. RX#[id number] 4 ICD-E11.9 Insulin Yes Check [facility] Syringes, 1-22 Fingerstic ity of Disposable, 00:00: k blood [place] 1 mL Syrg 00 glucose Medical qid. Branch Please dispense the relion syringes. RX#[id number] 4 ICD-E11.9 Insulin 0 Yes Check [facility] Syringes, 1-22 Fingerstic ity of Disposable, 00:00: k blood [place] 1 mL Syrg 00 glucose Medical qid. Branch Please dispense the relion syringes. RX#[id number] 4 ICD-E11.9 Insulin 0 Yes Check [facility] Syringes, 1-22 Fingerstic ity of Disposable, 00:00: k blood [place] 1 mL Syrg 00 glucose Medical qid. Branch Please dispense the relion syringes. RX#[id number] 4 ICD-E11.9 Insulin 0 Yes Check [facility] Syringes, 1-22 Fingerstic ity of Disposable, 00:00: k blood [place] 1 mL Syrg 00 glucose Medical qid. Branch Please dispense the relion syringes. RX#[id number] 4 ICD-E11.9 Insulin 0 Yes Check [facility] Syringes, 1-22 Fingerstic ity of Disposable, 00:00: k blood [place] 1 mL Syrg 00 glucose Medical qid. Branch Please dispense the relion syringes. RX#[id number] 4 ICD-E11.9 Insulin 0 Yes Check [facility] Syringes, 1-22 Fingerstic ity of Disposable, 00:00: k blood [place] 1 mL Syrg 00 glucose Medical qid. Branch Please dispense the relion syringes. RX#[id number] 4 ICD-E11.9 Insulin Yes Check [facility] Syringes, 1-22 Fingerstic ity of Disposable, 00:00: k blood [place] 1 mL Syrg 00 glucose Medical qid. Branch Please dispense the relion syringes. RX#[id number] 4 ICD-E11.9 Insulin Yes Check [facility] Syringes, 1-22 Fingerstic ity of Disposable, 00:00: k blood [place] 1 mL Syrg 00 glucose Medical qid. Branch Please dispense the relion syringes. RX#[id number] 4 ICD-E11.9 Insulin 0 Yes Check [facility] Syringes, 1-22 Fingerstic ity of Disposable, 00:00: k blood [place] 1 mL Syrg 00 glucose Medical qid. Branch Please dispense the relion syringes. RX#[id number] ICD-E11.9 Lancets & 2013-0 Yes [id number] Univ ers Blood 8-12 ity of Glucose 00:00: [place] Strips (ONE 00 Medical TOUCH Branch COMBO) [facility] Lancets & 2013-0 Yes [id number] Univ ers Blood 8-12 ity of Glucose 00:00: [place] Strips ( Medical TOUCH Branch COMBO) Cmpk Lancets & 2013-0 Yes [id number] Univ ers Blood 8-12 ity of Glucose 00:00: [place] Strips (ONE Medical TOUCH Branch COMBO) Cmpk Lancets & 2013-0 Yes [id number] Univ ers Blood 8-12 ity of Glucose 00:00: [place] Strips (ONE 00 Medical TOUCH Branch COMBO) Cmpk Lancets & 2013-0 Yes [id number] Univ ers Blood 8-12 ity of Glucose 00:00: [place] Strips (ONE 00 Medical TOUCH Branch COMBO) Cmpk Lancets & 2013-0 Yes [id number] Univ ers Blood 8-12 ity of Glucose 00:00: [place] Strips (ONE 00 Medical TOUCH Branch COMBO) Cmpk Lancets & 2013-0 Yes [id number] Univ ers Blood 8-12 ity of Glucose 00:00: [place] Strips (ONE 00 Medical TOUCH Branch COMBO) Cmpk Lancets & 2013-0 Yes [id number] Univ ers Blood 8-12 ity of Glucose 00:00: [place] Strips (ONE 00 Medical TOUCH Branch COMBO) Cmpk Lancets & 2013-0 Yes [id number] Univ ers Blood 8-12 ity of Glucose 00:00: [place] Strips ( 00 Medical TOUCH Branch COMBO) Cmpk Lancets & 2013-0 Yes [id number] Univ ers Blood 8-12 ity of Glucose 00:00: [place] Strips ( 00 Medical TOUCH Branch COMBO) Cmpk Lancets & 2013-0 Yes [id number] Univ ers Blood 8-12 ity of Glucose 00:00: [place] Strips (ONE 00 Medical TOUCH Branch COMBO) Cmpk Lancets & 2013-0 Yes [id number] Univ ers Blood 8-12 ity of Glucose 00:00: [place] Strips ( 00 Medical TOUCH Branch COMBO) Cmpk Lancets & 2013-0 Yes [id number] Univ ers Blood 8-12 ity of Glucose 00:00: [place] Strips (ONE 00 Medical TOUCH Branch COMBO) Cmpk Lancets & 2013-0 Yes [id number] Univ ers Blood 8-12 ity of Glucose 00:00: [place] Strips (ONE 00 Medical TOUCH Branch COMBO) Cmpk Lancets & 2013-0 Yes [id number] Univ ers Blood 8-12 ity of Glucose 00:00: [place] Strips (ONE 00 Medical TOUCH Branch COMBO) Cmpk Lancets & 2013-0 Yes [id number] Univ ers Blood 8-12 ity of Glucose 00:00: [place] Strips ( 00 Medical TOUCH Branch COMBO) Cmpk Lancets & 2013-0 Yes [id number] Univ ers Blood 8-12 ity of Glucose 00:00: [place] Strips (ONE 00 Medical TOUCH Branch COMBO) Cmpk Lancets & 2013-0 Yes [id number] Univ ers Blood 8-12 ity of Glucose 00:00: [place] Strips (ONE 00 Medical TOUCH Branch COMBO) Cmpk Lancets & 2013-0 Yes [id number] Univ ers Blood 8-12 ity of Glucose 00:00: [place] Strips (ONE 00 Medical TOUCH Branch COMBO) Cmpk Lancets & 2013-0 Yes [id number] Univ ers Blood 8-12 ity of Glucose 00:00: [place] Strips (ONE 00 Medical TOUCH Branch COMBO) Cmpk Lancets & 2013-0 Yes [id number] Univ ers Blood 8-12 ity of Glucose 00:00: [place] Strips (ONE 00 Medical TOUCH Branch COMBO) Cmpk Lancets & 2013-0 Yes [id number] Univ ers Blood 8-12 ity of Glucose 00:00: [place] Strips (ONE 00 Medical TOUCH Branch COMBO) Cmpk Lancets & 2013-0 Yes [id number] Univ ers Blood 8-12 ity of Glucose 00:00: [place] Strips (ONE 00 Medical TOUCH Branch COMBO) [facility] Cushion 2011-02 Yes [id number] Univer s (CERVICAL 1-26 ity of PILLOW/COVE 00:00: [place] R) [facility] 00 Medical Branch Cushion 2011-02 Yes [id number] Univer s (CERVICAL 1-26 ity of PILLOW/COVE 00:00: [place] R) [facility] 00 Medical Branch Cushion 2011-02 Yes [id number] Univer s (CERVICAL 1-26 ity of PILLOW/COVE 00:00: [place] R) [facility] 00 Medical Branch Cushion 2011- Yes [id number] Univer s (CERVICAL 1-26 ity of PILLOW/COVE 00:00: [place] R) [facility] 00 Medical Branch Cushion 2011- Yes [id number] Univer s (CERVICAL 1-26 ity of PILLOW/COVE 00:00: [place] R) [facility] Medical Branch Cushion 2011-02 Yes [id number] Univer s (CERVICAL 1-26 ity of PILLOW/COVE 00:00: [place] R) [facility] Medical Branch Cushion 2011-02 Yes [id number] Univer s (CERVICAL 1-26 ity of PILLOW/COVE 00:00: [place] R) Mis 00 Medical Branch Cushion 2011-02 Yes [id number] Univer s (CERVICAL 1-26 ity of PILLOW/COVE 00:00: [place] R) Mis 00 Medical Branch Cushion 2011-02 Yes [id number] Univer s (CERVICAL 1-26 ity of PILLOW/COVE 00:00: [place] R) Mis 00 Medical Branch Cushion 2011-02 Yes [id number] Univer s (CERVICAL 1-26 ity of PILLOW/COVE 00:00: [place] R) Mis 00 Medical Branch Cushion 2011-02 Yes [id number] Univer s (CERVICAL 1-26 ity of PILLOW/COVE 00:00: [place] R) Mis Medical Branch Cushion 2011-02 Yes [id number] Univer s (CERVICAL 1-26 ity of PILLOW/COVE 00:00: [place] R) Mis Medical Branch Cushion 2011-02 Yes [id number] Univer s (CERVICAL 1-26 ity of PILLOW/COVE 00:00: [place] R) Mis 00 Medical Branch Cushion 2011-02 Yes [id number] Univer s (CERVICAL 1-26 ity of PILLOW/COVE 00:00: [place] R) Mis 00 Medical Branch Cushion 2011-02 Yes [id number] Univer s (CERVICAL 1-26 ity of PILLOW/COVE 00:00: [place] R) Mis 00 Medical Branch Cushion 2011-02 Yes [id number] Univer s (CERVICAL 1-26 ity of PILLOW/COVE 00:00: [place] R) Mis 00 Medical Branch Cushion 2011-02 Yes [id number] Univer s (CERVICAL 1-26 ity of PILLOW/COVE 00:00: [place] R) Mis 00 Medical Branch Cushion 2011-02 Yes [id number] Univer s (CERVICAL 1-26 ity of PILLOW/COVE 00:00: [place] R) Mis 00 Medical Branch Cushion 2011-02 Yes [id number] Univer s (CERVICAL 1-26 ity of PILLOW/COVE 00:00: [place] R) Mis 00 Medical Branch Cushion 2011-02 Yes [id number] Univer s (CERVICAL 1-26 ity of PILLOW/COVE 00:00: [place] R) Mis 00 Medical Branch Cushion 2011-02 Yes [id number] Univer s (CERVICAL 1-26 ity of PILLOW/COVE 00:00: [place] R) [facility] Medical Branch Cushion 2011-02 Yes [id number] Univer s (CERVICAL 1-26 ity of PILLOW/COVE 00:00: [place] R) [place] [address] Medical Branch Cushion 2011-02 Yes [id number] Univer s (CERVICAL 1-26 ity of PILLOW/COVE 00:00: [place] R) [address] Branch Lantus Lantus No QD [facility] [...] UNIT/ML 100 UNIT/ML Folic Acid Folic Acid 2021- No 1{table [...] MG 06-12 t} 1 MG 00:00 :00 Immunizations Ordered Filled Immunization Date Status Comments Sour e Immunization Name Name FluAD FluAD 2020-12-14 Completed [facility] - 08:30:00 [facility] FluAD FluAD 2020-12-14 Completed [facility] - 08:30:00 [facility] FluAD FluAD 2020-12-14 Completed [facility] - 08:30:00 [facility] FluAD FluAD 2020-12-14 Completed [facility] - 08:30:00 [facility] FluAD FluAD 2020-12-14 Completed [facility] - 08:30:00 [facility] FluAD FluAD 2020-12-14 Completed [facility] - 08:30:00 [facility] FluAD FluAD 2020-12-14 Completed [facility] - 08:30:00 [facility] FluAD FluAD 2020-12-14 Completed [facility] - 08:30:00 [facility] FluAD FluAD 2020-12-14 Completed [facility] - 08:30:00 [facility] FluAD FluAD 2020-12-14 Completed [facility] - 08:30:00 [facility] FluAD FluAD 2020-12-14 Completed [facility] - 08:30:00 [facility] FluAD FluAD 2020-12-14 Completed [facility] - 08:30:00 [facility] FluAD FluAD 2020-12-14 Completed [facility] - 08:30:00 [facility] FluAD FluAD 2020-12-14 Completed [facility] - 08:30:00 [facility] FluAD FluAD 2020-12-14 Completed [facility] - 08:30:00 [facility] FluAD FluAD 2020-12-14 Completed [facility] - 08:30:00 [facility] FluAD FluAD 2020-12-14 Completed [facility] - 08:30:00 [facility] FluAD FluAD 2020-12-14 Completed [facility] - 08:30:00 [facility] FluAD FluAD 2020-12-14 Completed [facility] - 08:30:00 [facility] FluAD FluAD 2020-12-14 Completed [facility] - 08:30:00 [facility] FluAD FluAD 2020-12-14 Completed [facility] - 08:30:00 [facility] FluAD FluAD 2020-12-14 Completed [facility] - 08:30:00 [facility] FluAD FluAD 2020-12-14 Completed [facility] - 08:30:00 [facility] SARS-COV-2 COVID-19 2020-04-12 Completed Unive rsity of PFIZER VACCINE 00:00:00 [facility] SARS-COV-2 COVID-19 2020-04-12 Completed Unive rsity of PFIZER VACCINE 00:00:00 [facility] SARS-COV-2 COVID-19 2020-04-12 Completed Unive rsity of PFIZER VACCINE 00:00:00 [facility] SARS-COV-2 COVID-19 2020-04-12 Completed Unive rsity of PFIZER VACCINE 00:00:00 [facility] SARS-COV-2 COVID-19 2020-04-12 Completed Unive rsity of PFIZER VACCINE 00:00:00 [facility] SARS-COV-2 COVID-19 2020-04-12 Completed Unive rsity of PFIZER VACCINE 00:00:00 [facility] SARS-COV-2 COVID-19 2020-04-12 Completed Unive rsity of PFIZER VACCINE 00:00:00 [facility] SARS-COV-2 COVID-19 2020-04-12 Completed Unive rsity of PFIZER VACCINE 00:00:00 [facility] SARS-COV-2 COVID-19 2020-04-12 Completed Unive rsity of PFIZER VACCINE 00:00:00 [facility] SARS-COV-2 COVID-19 2020-04-12 Completed Unive rsity of PFIZER VACCINE 00:00:00 [facility] SARS-COV-2 COVID-19 2020-04-12 Completed Unive rsity of PFIZER VACCINE 00:00:00 [facility] SARS-COV-2 COVID-19 2020-04-12 Completed Unive rsity of PFIZER VACCINE 00:00:00 [facility] SARS-COV-2 COVID-19 2020-04-12 Completed Unive rsity of PFIZER VACCINE 00:00:00 [facility] SARS-COV-2 COVID-19 2020-04-12 Completed Unive rsity of PFIZER VACCINE 00:00:00 [facility] SARS-COV-2 COVID-19 2020-04-12 Completed Unive rsity of PFIZER VACCINE 00:00:00 [facility] SARS-COV-2 COVID-19 2020-04-12 Completed Unive rsity of PFIZER VACCINE 00:00:00 [facility] SARS-COV-2 COVID-19 2020-04-12 Completed Unive rsity of PFIZER VACCINE 00:00:00 [facility] Branch SARS-COV-2 COVID-19 2020-04-12 Completed Unive rsity of PFIZER VACCINE 00:00:00 [facility] SARS-COV-2 COVID-19 2020-04-12 Completed Unive rsity of PFIZER VACCINE 00:00:00 [facility] SARS-COV-2 COVID-19 2020-04-12 Completed Unive rsity of PFIZER VACCINE 00:00:00 [facility] SARS-COV-2 COVID-19 2020-04-12 Completed Unive rsity of PFIZER VACCINE 00:00:00 [place] [facility] SARS-COV-2 COVID-19 2020-04-12 Completed Unive rsity of PFIZER VACCINE 00:00:00 [facility] SARS-COV-2 COVID-19 2020-04-12 Completed Unive rsity of PFIZER VACCINE 00:00:00 [facility] SARS-COV-2 COVID-19 2020-03-15 Completed Unive rsity of PFIZER VACCINE 00:00:00 [facility] SARS-COV-2 COVID-19 2020-03-15 Completed Unive rsity of PFIZER VACCINE 00:00:00 [facility] SARS-COV-2 COVID-19 2020-03-15 Completed Unive rsity of PFIZER VACCINE 00:00:00 [facility] SARS-COV-2 COVID-19 2020-03-15 Completed Unive rsity of PFIZER VACCINE 00:00:00 [facility] SARS-COV-2 COVID-19 2020-03-15 Completed Unive rsity of PFIZER VACCINE 00:00:00 [facility] SARS-COV-2 COVID-19 2020-03-15 Completed Unive rsity of PFIZER VACCINE 00:00:00 [facility] SARS-COV-2 COVID-19 2020-03-15 Completed Unive rsity of PFIZER VACCINE 00:00:00 [facility] SARS-COV-2 COVID-19 2020-03-15 Completed Unive rsity of PFIZER VACCINE 00:00:00 [facility] SARS-COV-2 COVID-19 2020-03-15 Completed Unive rsity of PFIZER VACCINE 00:00:00 [facility] SARS-COV-2 COVID-19 2020-03-15 Completed Unive rsity of PFIZER VACCINE 00:00:00 [facility] SARS-COV-2 COVID-19 2020-03-15 Completed Unive rsity of PFIZER VACCINE 00:00:00 [facility] SARS-COV-2 COVID-19 2020-03-15 Completed Unive rsity of PFIZER VACCINE 00:00:00 [facility] SARS-COV-2 COVID-19 2020-03-15 Completed Unive rsity of PFIZER VACCINE 00:00:00 [facility] SARS-COV-2 COVID-19 2020-03-15 Completed Unive rsity of PFIZER VACCINE 00:00:00 [facility] SARS-COV-2 COVID-19 2020-03-15 Completed Unive rsity of PFIZER VACCINE 00:00:00 [facility] SARS-COV-2 COVID-19 2020-03-15 Completed Unive rsity of PFIZER VACCINE 00:00:00 [facility] SARS-COV-2 COVID-19 2020-03-15 Completed Unive rsity of PFIZER VACCINE 00:00:00 [facility] SARS-COV-2 COVID-19 2020-03-15 Completed Unive rsity of PFIZER VACCINE 00:00:00 [facility] SARS-COV-2 COVID-19 2020-03-15 Completed [facility] PFIZER VACCINE 00:00:00 [facility] SARS-COV-2 COVID-19 2020-03-15 Completed [facility] PFIZER VACCINE 00:00:00 [facility] SARS-COV-2 COVID-19 2020-03-15 Completed [facility] PFIZER VACCINE 00:00:00 [facility] SARS-COV-2 COVID-19 2020-03-15 Completed [facility] of PFIZER VACCINE 00:00:00 [facility] SARS-COV-2 COVID-19 2020-03-15 Completed [facility] of PFIZER VACCINE 00:00:00 [facility] Zoster Vaccine 2018-11-13 Completed [facility] Recombinant 00:00:00 [facility] Zoster Vaccine 2018-11-13 Completed University of Recombinant 00:00:00 [facility] Zoster Vaccine 2018-11-13 Completed [facility] of Recombinant 00:00:00 [facility] Zoster Vaccine 2018-11-13 Completed [facility] of Recombinant 00:00:00 [facility] Zoster Vaccine 2018-11-13 Completed [facility] of Recombinant 00:00:00 [facility] Zoster Vaccine 2018-11-13 Completed [facility] Recombinant 00:00:00 [facility] Zoster Vaccine 2018-11-13 Completed [facility] Recombinant 00:00:00 [facility] Zoster Vaccine 2018-11-13 Completed [facility] Recombinant 00:00:00 [facility] Zoster Vaccine 2018-11-13 Completed [facility] of Recombinant 00:00:00 [facility] Zoster Vaccine 2018-11-13 Completed [facility] of Recombinant 00:00:00 [facility] Zoster Vaccine 2018-11-13 Completed [facility] Recombinant 00:00:00 [facility] Zoster Vaccine 2018-11-13 Completed [facility] Recombinant 00:00:00 [facility] Zoster Vaccine 2018-11-13 Completed [facility] Recombinant 00:00:00 [facility] Zoster Vaccine 2018-11-13 Completed [facility] Recombinant 00:00:00 [facility] Zoster Vaccine 2018-11-13 Completed [facility] of Recombinant 00:00:00 [facility] Zoster Vaccine 2018-11-13 Completed [facility] of Recombinant 00:00:00 [facility] Zoster Vaccine 2018-11-13 Completed [facility] of Recombinant 00:00:00 [facility] Zoster Vaccine 2018-11-13 Completed [facility] of Recombinant 00:00:00 [facility] Zoster Vaccine 2018-11-13 Completed [facility] of Recombinant 00:00:00 [facility] Zoster Vaccine 2018-11-13 Completed [facility] of Recombinant 00:00:00 [facility] Zoster Vaccine 2018-11-13 Completed [facility] of Recombinant 00:00:00 [facility] Zoster Vaccine 2018-11-13 Completed [facility] of Recombinant 00:00:00 [facility] Zoster Vaccine 2018-11-13 Completed [facility] Recombinant 00:00:00 [facility] Influenza Virus 2018-11-10 Completed [facility] Vaccine 00:00:00 [facility] Influenza Virus 2018-11-10 Completed [facility] Vaccine 00:00:00 [facility] Influenza Virus 2018-11-10 Completed [facility] Vaccine 00:00:00 [facility] Influenza Virus 2018-11-10 Completed [facility] Vaccine 00:00:00 [facility] Influenza Virus 2018-11-10 Completed [facility] Vaccine 00:00:00 [facility] Influenza Virus 2018-11-10 Completed [facility] Vaccine 00:00:00 [facility] Influenza Virus 2018-11-10 Completed [facility] Vaccine 00:00:00 [facility] Influenza Virus 2018-11-10 Completed [facility] Vaccine 00:00:00 [facility] Influenza Virus 2018-11-10 Completed [facility] Vaccine 00:00:00 [facility] Influenza Virus 2018-11-10 Completed [facility] Vaccine 00:00:00 [facility] Influenza Virus 2018-11-10 Completed [facility] Vaccine 00:00:00 [facility] Influenza Virus 2018-11-10 Completed [facility] Vaccine 00:00:00 [facility] Influenza Virus 2018-11-10 Completed [facility] Vaccine 00:00:00 [facility] Influenza Virus 2018-11-10 Completed [facility] Vaccine 00:00:00 [facility] Influenza Virus 2018-11-10 Completed [facility] Vaccine 00:00:00 [facility] Influenza Virus 2018-11-10 Completed [facility] Vaccine 00:00:00 [facility] Influenza Virus 2018-11-10 Completed [facility] Vaccine 00:00:00 [facility] Influenza Virus 2018-11-10 Completed [facility] Vaccine 00:00:00 [facility] Influenza Virus 2018-11-10 Completed [facility] Vaccine 00:00:00 [facility] Influenza Virus 2018-11-10 Completed [facility] Vaccine 00:00:00 [facility] Influenza Virus 2018-11-10 Completed [facility] Vaccine 00:00:00 [facility] Influenza Virus 2018-11-10 Completed [facility] Vaccine 00:00:00 [facility] Influenza Virus 2018-11-10 Completed [facility] Vaccine 00:00:00 [facility] Zoster Vaccine 2018-09-12 Completed [facility] of Recombinant 00:00:00 [facility] Zoster Vaccine 2018-09-12 Completed [facility] Recombinant 00:00:00 [facility] Zoster Vaccine 2018-09-12 Completed [facility] of Recombinant 00:00:00 [facility] Zoster Vaccine 2018-09-12 Completed [facility] of Recombinant 00:00:00 [facility] Zoster Vaccine 2018-09-12 Completed [facility] of Recombinant 00:00:00 [facility] Zoster Vaccine 2018-09-12 Completed [facility] Recombinant 00:00:00 [facility] Zoster Vaccine 2018-09-12 Completed [facility] of Recombinant 00:00:00 [facility] Zoster Vaccine 2018-09-12 Completed [facility] of Recombinant 00:00:00 [facility] Zoster Vaccine 2018-09-12 Completed [facility] of Recombinant 00:00:00 [facility] Zoster Vaccine 2018-09-12 Completed [facility] Recombinant 00:00:00 [facility] Zoster Vaccine 2018-09-12 Completed [facility] of Recombinant 00:00:00 [facility] Zoster Vaccine 2018-09-12 Completed [facility] Recombinant 00:00:00 [facility] Zoster Vaccine 2018-09-12 Completed [facility] Recombinant 00:00:00 [facility] Zoster Vaccine 2018-09-12 Completed [facility] Recombinant 00:00:00 [facility] Zoster Vaccine 2018-09-12 Completed [facility] Recombinant 00:00:00 [facility] Zoster Vaccine 2018-09-12 Completed [facility] of Recombinant 00:00:00 [facility] Zoster Vaccine 2018-09-12 Completed [facility] of Recombinant 00:00:00 [facility] Zoster Vaccine 2018-09-12 Completed [facility] of Recombinant 00:00:00 [facility] Zoster Vaccine 2018-09-12 Completed [facility] Recombinant 00:00:00 [facility] Zoster Vaccine 2018-09-12 Completed [facility] Recombinant 00:00:00 [facility] Zoster Vaccine 2018-09-12 Completed [facility] of Recombinant 00:00:00 [facility] Zoster Vaccine 2018-09-12 Completed [facility] of Recombinant 00:00:00 [facility] Zoster Vaccine 2018-09-12 Completed [facility] Recombinant 00:00:00 [facility] Influenza Virus 2017-10-28 Completed [facility]it [facility] of Vaccine - Whole 00:00:00 [facility] Influenza Virus 2017-10-28 Completed [facility] of Vaccine - Whole 00:00:00 [facility] Influenza Virus 2017-10-28 Completed [facility] of Vaccine - Whole 00:00:00 [facility] Influenza Virus 2017-10-28 Completed [facility] of Vaccine - Whole 00:00:00 [facility] Influenza Virus 2017-10-28 Completed [facility] of Vaccine - Whole 00:00:00 [facility] Influenza Virus 2017-10-28 Completed [facility] Vaccine - Whole 00:00:00 [facility] Influenza Virus 2017-10-28 Completed [facility] Vaccine - Whole 00:00:00 [facility] Influenza Virus 2017-10-28 Completed [facility] of Vaccine - Whole 00:00:00 [facility] Influenza Virus 2017-10-28 Completed [facility] Vaccine - Whole 00:00:00 [facility] Influenza Virus 2017-10-28 Completed [facility] Vaccine - Whole 00:00:00 [facility] Influenza Virus 2017-10-28 Completed [facility] of Vaccine - Whole 00:00:00 [facility] Influenza Virus 2017-10-28 Completed [facility] of Vaccine - Whole 00:00:00 [facility] Influenza Virus 2017-10-28 Completed [facility] of Vaccine - Whole 00:00:00 [facility] Influenza Virus 2017-10-28 Completed [facility] of Vaccine - Whole 00:00:00 [facility] Influenza Virus 2017-10-28 Completed [facility] of Vaccine - Whole 00:00:00 [facility] Influenza Virus 2017-10-28 Completed [facility] Vaccine - Whole 00:00:00 [facility] Influenza Virus 2017-10-28 Completed [facility] Vaccine - Whole 00:00:00 [facility] Influenza Virus 2017-10-28 Completed [facility] of Vaccine - Whole 00:00:00 [facility] Influenza Virus 2017-10-28 Completed [facility] Vaccine - Whole 00:00:00 [facility] Influenza Virus 2017-10-28 Completed [facility] Vaccine - Whole 00:00:00 [facility] Influenza Virus 2017-10-28 Completed [facility] of Vaccine - Whole 00:00:00 [facility] Influenza Virus 2017-10-28 Completed [facility] of Vaccine - Whole 00:00:00 [facility] Influenza Virus 2017-10-28 Completed [facility] Vaccine - Whole 00:00:00 [facility] Influenza High Dose 2015-11-21 Completed [facility] 00:00:00 [facility] Influenza High Dose 2015-11-21 Completed [facility] of 00:00:00 [facility] Influenza High Dose 2015-11-21 Completed [facility] of 00:00:00 [facility] Influenza High Dose 2015-11-21 Completed [facility] of 00:00:00 [facility] Influenza High Dose 2015-11-21 Completed [facility] of 00:00:00 [facility] Influenza High Dose 2015-11-21 Completed [facility] of 00:00:00 [facility] Influenza High Dose 2015-11-21 Completed [facility] of 00:00:00 [facility] Influenza High Dose 2015-11-21 Completed [facility] of 00:00:00 [facility] Influenza High Dose 2015-11-21 Completed [facility] of 00:00:00 [facility] Influenza High Dose 2015-11-21 Completed [facility] of 00:00:00 [facility] Influenza High Dose 2015-11-21 Completed [facility] of 00:00:00 [facility] Influenza High Dose 2015-11-21 Completed [facility] of 00:00:00 [facility] Influenza High Dose 2015-11-21 Completed [facility] of 00:00:00 [facility] Influenza High Dose 2015-11-21 Completed [facility] of 00:00:00 [facility] Influenza High Dose 2015-11-21 Completed [facility] of 00:00:00 [facility] Influenza High Dose 2015-11-21 Completed [facility] of 00:00:00 [facility] Influenza High Dose 2015-11-21 Completed [facility] of 00:00:00 [facility] Influenza High Dose 2015-11-21 Completed [facility] of 00:00:00 [facility] Influenza High Dose 2015-11-21 Completed [facility] of 00:00:00 [facility] Influenza High Dose 2015-11-21 Completed [facility] of 00:00:00 [facility] Influenza High Dose 2015-11-21 Completed [facility] of 00:00:00 [facility] Influenza High Dose 2015-11-21 Completed [facility] of 00:00:00 [facility] Influenza High Dose 2015-11-21 Completed [facility] of 00:00:00 [facility] Pneumococcal 2014-05-31 Completed University o f Polysaccharide, [...] [facility] Influenza High Dose 2013-11-09 Completed [facility] of 00:00:00 [facility] Influenza High Dose 2013-11-09 Completed [facility] of 00:00:00 [facility] Influenza High Dose 2013-11-09 Completed [facility] of 00:00:00 [facility] Influenza High Dose 2013-11-09 Completed [facility] of 00:00:00 [facility] Influenza High Dose 2013-11-09 Completed [facility] of 00:00:00 [facility] Influenza High Dose 2013-11-09 Completed [facility] of 00:00:00 [facility] Influenza High Dose 2013-11-09 Completed [facility] of 00:00:00 [facility] Influenza High Dose 2013-11-09 Completed [facility] of 00:00:00 [facility] Influenza High Dose 2013-11-09 Completed [facility] of 00:00:00 [facility] Influenza High Dose 2013-11-09 Completed [facility] of 00:00:00 [facility] Influenza High Dose 2013-11-09 Completed [facility] of 00:00:00 [facility] Influenza High Dose 2013-11-09 Completed [facility] of 00:00:00 [facility] Influenza High Dose 2013-11-09 Completed [facility] of 00:00:00 [facility] Influenza High Dose 2013-11-09 Completed [facility] of 00:00:00 [facility] Influenza High Dose 2013-11-09 Completed [facility] of 00:00:00 [facility] Influenza High Dose 2013-11-09 Completed [facility] of 00:00:00 [facility] Influenza High Dose 2013-11-09 Completed [facility] of 00:00:00 [facility] Influenza High Dose 2013-11-09 Completed [facility] of 00:00:00 [facility] Influenza High Dose 2013-11-09 Completed [facility] of 00:00:00 [facility] Influenza High Dose 2013-11-09 Completed [facility] of 00:00:00 [facility] Influenza High Dose 2013-11-09 Completed [facility] of 00:00:00 [facility] Influenza High Dose 2013-11-09 Completed [facility] of 00:00:00 [facility] Pneumococcal 7 2012-11-29 Completed [facility] of Conjugate, PCV7 00:00:00 [facility] Pneumococcal 7 2012-11-29 Completed [facility] Conjugate, PCV7 00:00:00 [facility] ([facility] Pneumococcal 7 2012-11-29 [...] 2012-11-29 Completed [facility] of Conjugate, PCV7 00:00:00 [facility] ical (Prevnar7) Branch Pneumococcal 7 2012-11-29 Completed [facility] of Conjugate, PCV7 00:00:00 [facility] (Pre[facility]ar[facility] Pneumococcal 7 2012-11-29 Completed [facility] Conjugate, PCV7 00:00:00 [facility] (Pre[facility]ar[facility] Pneumococcal 7 2012-11-29 Completed [facility] of Conjugate, PCV7 00:00:00 [facility] ical (Prevnar7) Branch [facility] 2012-01-10 Completed [facility] of 00:00:00 [facility] Zoster(Zostavax)( 2012-01-10 Completed Unive rsity of ingles) 00:00:[address] [facility] [place] [place] 2012-01-10 Completed [facility] of 00:00:00 [facility] Zoster(Zostavax)( 2012-01-10 Completed Unive rsity of ingles) 00:00:[address] [facility] [place] [place] 2012-01-10 Completed [facility] of 00:00:00 [facility] Zoster(Zostavax)( 2012-01-10 Completed Unive rsity of ingles) 00:00:[address] [facility] [place] [place] 2012-01-10 Completed [facility] of 00:00:00 [facility] Zoster(Zostavax)( 2012-01-10 Completed Unive rsity of ingles) 00:00:[address] [facility] [place] [place] 2012-01-10 Completed [facility] of 00:00:00 [facility] Zoster(Zostavax)( 2012-01-10 Completed Unive rsity of ingles) 00:00:[address] [facility] [place] [place] 2012-01-10 Completed [facility] of 00:00:00 [facility] Zoster(Zostavax)( 2012-01-10 Completed Unive rsity of ingles) 00:00:[address] [facility] [place] [place] 2012-01-10 Completed [facility] of 00:00:00 [facility] Zoster(Zostavax)( 2012-01-10 Completed Unive rsity of ingles) 00:00:[address] [facility] [place] [place] 2012-01-10 Completed [facility] of 00:00:00 [facility] Zoster(Zostavax)( 2012-01-10 Completed Unive rsity of ingles) 00:00:[address] [facility] [place] [place] 2012-01-10 Completed [facility] of 00:00:00 [facility] Zoster(Zostavax)( 2012-01-10 Completed Unive rsity of ingles) 00:00:[address] [facility] [place] [place] 2012-01-10 Completed [facility] of 00:00:00 [facility] Zoster(Zostavax)( 2012-01-10 Completed Unive rsity of ingles) 00:00:[address] [facility] [place] [place] 2012-01-10 Completed [facility] of 00:00:00 [facility] Zoster(Zostavax)( 2012-01-10 Completed Unive rsity of ingles) 00:00:[address] [facility] [place] [place] 2012-01-10 Completed [facility] of 00:00:00 [facility] Zoster(Zostavax)( 2012-01-10 Completed Unive rsity of ingles) 00:00:[address] [facility] [place] [place] 2012-01-10 Completed [facility] of 00:00:00 [facility] Zoster(Zostavax)( 2012-01-10 Completed Unive rsity of ingles) 00:00:[address] [facility] [place] [place] 2012-01-10 Completed [facility] of 00:00:00 [facility] Zoster(Zostavax)( 2012-01-10 Completed Unive rsity of ingles) 00:00:[address] [facility] [place] [place] 2012-01-10 Completed [facility] of 00:00:00 [facility] Zoster(Zostavax)( 2012-01-10 Completed Unive rsity of ingles) 00:00:[address] [facility] [place] [place] 2012-01-10 Completed [facility] of 00:00:00 [facility] Zoster(Zostavax)( 2012-01-10 Completed Unive rsity of ingles) 00:00:[address] [facility] [place] [place] 2012-01-10 Completed [facility] of 00:00:00 [facility] Zoster(Zostavax)( 2012-01-10 Completed Unive rsity of ingles) 00:00:[address] [facility] [place] [place] 2012-01-10 Completed [facility] of 00:00:00 [facility] Zoster(Zostavax)( 2012-01-10 Completed Unive rsity of ingles) 00:00:[address] [facility] [place] [place] 2012-01-10 Completed [facility] of 00:00:00 [facility] Zoster(Zostavax)( 2012-01-10 Completed [facility]ive rsity of ingles) 00:00:00 [facility] TDAP 2012-01-10 Completed [facility] 00:00:00 [facility] Zoster(Zostavax)( 2012-01-10 Completed [facility]ive rsity of ingles) 00:00:00 [facility] TDAP 2012-01-10 Completed [facility] 00:00:00 [facility] Zoster(Zostavax)( 2012-01-10 Completed Unive rsity of ingles) 00:00:00 [facility] TDAP 2012-01-10 Completed [facility] 00:00:00 [facility] Zoster(Zostavax)( 2012-01-10 Completed Unive rsity of ingles) 00:00:00 [facility] TDAP 2012-01-10 Completed [facility] of 00:00:00 [facility] Zoster(Zostavax)( 2012-01-10 Completed [facility]ive rsity of ingles) 00:00:00 [facility] Influenza Virus 2011-12-16 Completed Universit y of Vaccine 00:00:00 [facility] Influenza Virus 2011-12-16 Completed [facility]it y of Vaccine 00:00:00 [facility] Influenza Virus 2011-12-16 Completed [facility]it y of Vaccine 00:00:00 [facility] Influenza Virus 2011-12-16 Completed [facility] y of Vaccine 00:00:00 [facility] Influenza Virus 2011-12-16 Completed [facility] y of Vaccine 00:00:00 [facility] Influenza Virus 2011-12-16 Completed [facility] y of Vaccine 00:00:00 [facility] Influenza Virus 2011-12-16 Completed [facility] y of Vaccine 00:00:00 [facility] Influenza Virus 2011-12-16 Completed [facility] y of Vaccine 00:00:00 [facility] Influenza Virus 2011-12-16 Completed [facility]it y of Vaccine 00:00:00 [facility] Influenza Virus 2011-12-16 Completed [facility] y of Vaccine 00:00:00 [facility] Influenza Virus 2011-12-16 Completed [facility]it y of Vaccine 00:00:00 [facility] Influenza Virus 2011-12-16 Completed [facility] y of Vaccine 00:00:00 [facility] Influenza Virus 2011-12-16 Completed [facility] y of Vaccine 00:00:00 [facility] Influenza Virus 2011-12-16 Completed [facility] y of Vaccine 00:00:00 [facility] Influenza Virus 2011-12-16 Completed [facility] y of Vaccine 00:00:00 [facility] Influenza Virus 2011-12-16 Completed [facility] y of Vaccine 00:00:00 [facility] Influenza Virus 2011-12-16 Completed [facility] y of Vaccine 00:00:00 [facility] Influenza Virus 2011-12-16 Completed [facility] y of Vaccine 00:00:00 [facility] Influenza Virus 2011-12-16 Completed [facility] y of Vaccine 00:00:00 [facility] Influenza Virus 2011-12-16 Completed [facility] y of Vaccine 00:00:00 [facility] Influenza Virus 2011-12-16 Completed [facility] y of Vaccine 00:00:00 [facility] Influenza Virus 2011-12-16 Completed Universit y of Vaccine 00:00:00 [facility] Influenza Virus 2011-12-16 Completed Universit y of Vaccine 00:00:00 [facility] Influenza Virus 2008-11-18 Completed Universit y of Vaccine 00:00:00 [facility] Influenza Virus 2008-11-18 Completed Universit y of Vaccine 00:00:00 [facility] Influenza Virus 2008-11-18 Completed Universit y of Vaccine 00:00:00 [facility] Influenza Virus 2008-11-18 Completed Universit y of Vaccine 00:00:00 [facility] Influenza Virus 2008-11-18 Completed Universit y of Vaccine 00:00:00 [facility] Influenza Virus 2008-11-18 Completed Universit y of Vaccine 00:00:00 [facility] Influenza Virus 2008-11-18 Completed Universit y of Vaccine 00:00:00 [facility] Influenza Virus 2008-11-18 Completed Universit y of Vaccine 00:00:00 [facility] Influenza Virus 2008-11-18 Completed Universit y of Vaccine 00:00:00 [facility] Influenza Virus 2008-11-18 Completed Universit y of Vaccine 00:00:00 [facility] Influenza Virus 2008-11-18 Completed Universit y of Vaccine 00:00:00 [facility] Influenza Virus 2008-11-18 Completed Universit y of Vaccine 00:00:00 [facility] Influenza Virus 2008-11-18 Completed Universit y of Vaccine 00:00:00 [facility] Influenza Virus 2008-11-18 Completed Universit y of Vaccine 00:00:00 [facility] Influenza Virus 2008-11-18 Completed Universit y of Vaccine 00:00:00 [facility] Influenza Virus 2008-11-18 Completed Universit y of Vaccine 00:00:00 [facility] Influenza Virus 2008-11-18 Completed Universit y of Vaccine 00:00:00 [facility] Influenza Virus 2008-11-18 Completed Universit y of Vaccine 00:00:00 [facility] Influenza Virus 2008-11-18 Completed Universit y of Vaccine 00:00:00 [facility] Influenza Virus 2008-11-18 Completed Universit y of Vaccine 00:00:00 [facility] Influenza Virus 2008-11-18 Completed Universit y of Vaccine 00:00:00 [facility] Influenza Virus 2008-11-18 Completed Universit y of Vaccine 00:00:00 [facility] Influenza Virus 2008-11-18 Completed Universit y of Vaccine 00:00:00 [facility] Pneumococcal 7 2007-03-13 Completed University of Conjugate, [...] PCV7 00:00:00 [place] [facility] (Prevnar7) [facility] Vital Signs Vital Name Observation Time Observation Value Comments Source Systolic blood 2022-06-23 17:57:00 126 mm[Hg] Univer sity of pressure [facility] Diastolic blood 2022-06-23 17:57:00 65 mm[Hg] Unive rsity of pressure [facility] Heart rate 2022-06-23 17:57:00 84 /min [facility] Body temperature 2022-06-23 17:57:00 36.72 Lena [facility] Respiratory rate 2022-06-23 17:57:00 16 /min [facility] Body height 2022-06-23 17:57:00 149.9 cm [facility] [place] [facility] Body weight 2022-06-23 17:57:00 65.137 kg [facility] [place] [facility] BMI 2022-06-23 17:57:00 29.00 kg/m2 [facility] [place] [facility] Oxygen saturation in 2022-06-23 17:57:00 95 /min University of Arterial blood by [place] [facility] Pulse oximetry Branch Systolic blood 2022-03-03 17:12:00 109 mm[Hg] Univer sity of pressure [facility] Diastolic blood 2022-03-03 17:12:00 67 mm[Hg] Unive rsity of pressure [facility] Heart rate 2022-03-03 17:12:00 95 /min [facility] Body temperature 2022-03-03 17:12:00 36.89 Lena Univ ersity [facility] [place] [facility] Respiratory rate 2022-03-03 17:12:00 18 /min Univ ersity [facility] Body height 2022-03-03 17:12:00 149.9 cm [facility] [place] [facility] Body weight 2022-03-03 17:12:00 63.912 kg [facility] [place] [facility] BMI 2022-03-03 17:12:00 28.46 kg/m2 [facility] [place] [facility] Oxygen saturation in 2022-03-03 17:12:00 98 /min University of Arterial blood by [facility] Pulse oximetry Branch Systolic blood 2022-01-06 19:11:00 102 mm[Hg] Univer sity of pressure [facility] Diastolic blood 2022-01-06 19:11:00 61 mm[Hg] Unive rsity of pressure [facility] Heart rate 2022-01-06 19:11:00 101 /min [facility] [place] [facility] Body temperature 2022-01-06 19:11:00 36.83 Lena Univ ers[facility] [place] [facility] Respiratory rate 2022-01-06 19:11:00 16 /min Univ ersity [facility] [place] [facility] Body height 2022-01-06 19:11:00 149.9 cm [facility] [place] [facility] Body weight 2022-01-06 19:11:00 62.279 kg [facility] [place] [facility] BMI 2022-01-06 19:11:00 27.73 kg/m2 [facility] [place] [facility] Oxygen saturation in 2022-01-06 19:11:00 95 /min University of Arterial blood by [place] [facility] Pulse oximetry Branch Systolic blood 2021-12-15 18:56:00 115 mm[Hg] Univer sity of pressure [facility] Diastolic blood 2021-12-15 18:56:00 65 mm[Hg] Unive rsity of pressure [facility] Heart rate 2021-12-15 18:56:00 98 /min [facility] Body temperature 2021-12-15 18:56:00 36.89 Lena Univ ers[facility] [place] [facility] Body height 2021-12-15 18:56:00 149.9 cm [facility] Body weight 2021-12-15 18:56:00 64.229 kg [facility] [place] [facility] BMI 2021-12-15 18:56:00 28.60 kg/m2 [facility] [place] [facility] Oxygen saturation in 2021-12-15 18:56:00 97 /min University of Arterial blood by [facility] Pulse oximetry Branch Systolic blood 2021-12-09 18:11:00 127 mm[Hg] Univer sity of pressure [facility] Diastolic blood 2021-12-09 18:11:00 77 mm[Hg] Unive rsity of pressure [facility] Heart rate 2021-12-09 18:11:00 87 /min [facility] Body temperature 2021-12-09 18:11:00 37 Lena Univ [facility] [place] [facility] Respiratory rate 2021-12-09 18:11:00 18 /min Univ ersity [facility] Body height 2021-12-09 18:11:00 149.9 cm [facility] Body weight 2021-12-09 18:11:00 64.184 kg [facility] [place] [facility] BMI 2021-12-09 18:11:00 28.58 kg/m2 [facility] [place] [facility] Oxygen saturation in 2021-12-09 18:11:00 98 /min University of Arterial blood by [place] [facility] Pulse oximetry Branch Systolic blood 2021-11-11 18:21:00 110 mm[Hg] Univer sity of pressure [facility] Diastolic blood 2021-11-11 18:21:00 64 mm[Hg] Unive rsity of pressure [facility] Heart rate 2021-11-11 18:21:00 103 /min [facility] 2021-11-11 18:21:00 36.94 L[facility] 2021-11-11 18:21:00 18 /min [facility] Body height 2021-11-11 18:21:00 149.9 cm [facility] Body weight 2021-11-11 18:21:00 63.594 kg [facility] BMI 2021-11-11 18:21:00 28.32 kg/m2 [facility] Oxygen saturation in 2021-11-11 18:21:00 97 /min [facility] Arterial blood by [facility] Pulse oximetry Branch height 2021-10-27 10:50:00 59.5 [in_i] Common [facility] weight 2021-10-27 10:50:00 142.5 [lb_av] Common [facility] temperature 2021-10-27 10:50:00 97.4 [degF] Common [facility] bmi 2021-10-27 10:50:00 28.3 kg/m2 [facility] oximetry 2021-10-27 10:50:00 94 % Common [facility] respiratory rate 2021-10-27 10:50:00 16 /min Comm on [facility] blood pressure 2021-10-27 10:50:00 115 mm[Hg] Common [facility] - systolic [facility] blood pressure 2021-10-27 10:50:00 57 mm[Hg] Common [facility] - diastolic [facility] Systolic blood 2021-10-14 20:05:00 146 mm[Hg] Univer sity of [facility] Diastolic blood 2021-10-14 20:05:00 77 mm[Hg] Unive rsity of [facility] Heart rate 2021-10-14 20:05:00 86 /min Universi ty of [facility] Body temperature 2021-10-14 20:05:00 36.94 Lena [facility] ersity of [facility] Respiratory rate 2021-10-14 20:05:00 18 /min [facility] Body height 2021-10-14 20:05:00 149.9 cm Universi ty of [facility] Body weight 2021-10-14 20:05:00 64.547 kg Universi ty of [facility] BMI 2021-10-14 20:05:00 28.74 kg/m2 Universi ty [facility] Oxygen saturation in 2021-10-14 20:05:00 98 /min [facility] Arterial blood by [facility] Pulse oximetry Branch height 2021-07-24 10:50:00 59 [in_i] [facility] weight 2021-07-24 10:50:00 148.2 [lb_av] [facility] temperature 2021-07-24 10:50:00 98.1 [degF] [facility] bmi 2021-07-24 10:50:00 29.93 kg/m2 [facility] oximetry 2021-07-24 10:50:00 100 % [facility] respiratory rate 2021-07-24 10:50:00 18 /min Comm on [facility] blood pressure 2021-07-24 10:50:00 120 mm[Hg] Common [facility] - systolic [facility] blood pressure 2021-07-24 10:50:00 57 mm[Hg] [facility] - diastolic [facility] height 2021-04-27 13:30:00 59 [in_i] [facility] weight 2021-04-27 13:30:00 161.0 [lb_av] [facility] temperature 2021-04-27 13:30:00 97.3 [degF] [facility] bmi 2021-04-27 13:30:00 32.51 kg/m2 [facility] oximetry 2021-04-27 13:30:00 97 % [facility] respiratory rate 2021-04-27 13:30:00 17 /min Comm on [facility] blood pressure 2021-04-27 13:30:00 111 mm[Hg] Common [facility] - systolic [facility] blood pressure 2021-04-27 13:30:00 50 mm[Hg] Common [facility] - diastolic [facility] height 2021-04-27 13:40:00 59 [in_i] Common [facility] weight 2021-04-27 13:40:00 161 [lb_av] [facility] temperature 2021-04-27 13:40:00 97.3 [degF] [facility] bmi 2021-04-27 13:40:00 32.51 kg/m2 [facility] oximetry 2021-04-27 13:40:00 97 % [facility] respiratory rate 2021-04-27 13:40:00 17 /min Comm on [facility] blood pressure 2021-04-27 13:40:00 111 mm[Hg] Common [facility] - systolic [facility] blood pressure 2021-04-27 13:40:00 50 mm[Hg] Common [facility] - diastolic [facility] height 2021-03-26 14:00:00 59 [in_i] Common [facility] weight 2021-03-26 14:00:00 164.4 [lb_av] Common [facility] temperature 2021-03-26 14:00:00 96.8 [degF] Common [facility] bmi 2021-03-26 14:00:00 33.2 kg/m2 [facility] oximetry 2021-03-26 14:00:00 98 % [facility] respiratory rate 2021-03-26 14:00:00 18 /min Comm on [facility] blood pressure 2021-03-26 14:00:00 108 mm[Hg] [facility] blood pressure 2021-03-26 14:00:00 52 mm[Hg] [facility] - diastolic [facility] height 2021-03-10 13:30:00 59 [in_i] Common [facility] weight 2021-03-10 13:30:00 158 [lb_av] Common [facility] temperature 2021-03-10 13:30:00 97.0 [degF] Common [facility] bmi 2021-03-10 13:30:00 31.91 kg/m2 Common [facility] oximetry 2021-03-10 13:30:00 98 % [facility] respiratory rate 2021-03-10 13:30:00 18 /min Comm on [facility] blood pressure 2021-03-10 13:30:00 126 mm[Hg] Common [facility] - systolic [facility] blood pressure 2021-03-10 13:30:00 71 mm[Hg] Common [facility] - diastolic [facility] height 2021-01-23 09:00:00 59 [in_i] Common [facility] weight 2021-01-23 09:00:00 158.8 [lb_av] Common [facility] temperature 2021-01-23 09:00:00 97.2 [degF] Common [facility] bmi 2021-01-23 09:00:00 32.07 kg/m2 [facility] oximetry 2021-01-23 09:00:00 98 % Common [facility] respiratory rate 2021-01-23 09:00:00 17 /min Comm on [facility] blood pressure 2021-01-23 09:00:00 131 mm[Hg] Common [facility] - systolic [facility] blood pressure 2021-01-23 09:00:00 59 mm[Hg] Common [facility] Procedures Procedure Date / Time Performing Clinician Source Performed [facility] PATIENT FINANCIAL 2022-04-28 14:33:31 Doctor Unassigned, No [facility] POLICY Name [facility] URINALYSIS MICROSCOPIC 2021-11-11 19:24:00 Alpa Godfrey [facility] URINE CULTURE 2021-11-11 19:24:00 Alpa Godfrey [place] [facility] ASSIGNMENT OF BENEFITS 2021-11-11 18:03:09 Doctor Unassigned, No [facility] Branch REFERRAL- 2021-11-03 05:01:00 Doctor Unassigned, No [facility] REQUEST/RESPONSE Name [facility] Encounters Start End Encounter Admission Attending Care Care Encounter Source Date/Time Date/Time Type Type Clinicians Facility Department ID 2022-01-22 Outpatient Gallo, STLMLC STLMLC [id number] Common 11:14:02 [facility] 2021-04-16 Outpatient Gallo, STLMLC STLMLC [id number] Common 17:04:01 [facility] 2021-04-09 Outpatient Gallo, STLMLC STLMLC [id number] Common 09:00:02 Roland [facility] 2021-04-08 Outpatient Gallo, STLMLC STLMLC [id number] Common 15:59:02 [facility] 2021-03-30 Outpatient Gallo, STLMLC STLMLC [id number] Common 08:52:01 Roland [facility] 2021-03-26 Outpatient Gallo, STLMLC STLMLC [id number] Common 13:28:02 Roland [facility] 2021-03-11 Outpatient Gallo, STLMLC STLMLC [id number] Common 14:40:07 Roland [facility] 2021-03-11 Outpatient Gallo, STLMLC STLMLC [id number] Common 14:16:28 [facility] 2021-03-11 Outpatient Gallo, STLMLC STLMLC [id number] Common 14:11:10 Roland 22092 [facility] 2021-03-11 Outpatient GINGER Gallo [facility] [id number] Common 14:10:16 Roland 21966 [facility] 2020-12-16 [facility] [id number] Univers 05:02:12 KHOI [facility] 2020-12-15 [facility] [id number] Univers 19:17:29 KHOI [facility] 2022-08-25 2022-08-25 Outpatient R [facility] [id number] Univers 10:00:00 10:00:00 ity [facility] 2022-07-21 2022-07-21 Nurse Nurse, [facility] 1.2.840 .114 [id number] Univers 10:00:00 10:30:00 [facility] [id number] ity of [place] [id number] [facility] s [place] [id number] [address] OFFICE BUILDING 2022-07-21 2022-07-21 Outpatient [facility] [id number] Univers 10:00:00 10:00:[address] [facility] 2022-06-23 2022-06-23 Office [facility] 1.2.840.114 [id number] Univers 13:00:00 13:15:00 Visit [facility] [id number] it y [place] [id number] [place] [id number] [address] OFFICE BUILDING 2022-06-23 2022-06-23 Outpatient [facility] [id number] Univers 13:00:00 13:00:00 BILPA ity [facility] 2022-05-26 2022-05-26 Outpatient [facility] [id number] Univers 14:00:00 14:00:00 BILAL ity [facility] 2022-05-26 2022-05-26 Nurse Nurse, [facility] 1.2.840 .114 [id number] Univers 14:00:00 14:00:00 Visit Alpa Godfrey [id number] [id number] [id number] [address] OFFICE BUILDING 2022-04-28 2022-04-28 Outpatient R EPIFANIO [facility] [id number] Univers 10:00:00 10:04:15 BILAL ity [facility] 2022-04-28 2022-04-28 Nurse Nurse, [facility] Urology [facility] 1.2.840 .114 [id number] Univers 10:00:00 10:04:15 Visit Alpa Godfrey HEALTH [id number] [id number] [id number] [address] OFFICE BUILDING 2022-04-28 2022-04-28 Orders Doctor NAE 1.2.840.114 [id number] Univers 00:00:00 00:00:00 Only Unassigned, JESUS [id number] [place]y [place] [facility] [id number] Kyle as [id number] [address] 2022-03-31 2022-03-31 Nurse Nurse, [facility] Urology [facility] 1.2.840 .114 [id number] Univers 10:30:00 11:00:00 Visit Unknown, Attending HEALTH [id number] ity of Alpa Godfrey [place] [id number] [place] [id number] [address] OFFICE BUILDING 2022-03-31 2022-03-31 Outpatient R EPIFANIO [facility] [id number] Univers 10:30:00 10:30:00 BILAL ity [facility] 2022-03-03 2022-03-03 Nurse Nurse, Melani Denise [facility] 1.2.840. 114 [id number] Univers 11:00:00 11:18:57 Visit Alpa Godfrey HEALTH [id number] [id number] [id number] [place] [id number] [employer] OFFICE BUILDING 2022-03-03 2022-03-03 Outpatient R [facility] [id number] Univers 11:00:00 11:00:00 [facility] 2022-02-03 2022-02-03 Nurse Nurse, Melani Denise [facility] 1.2.840. 114 [id number] Univers 13:00:00 13:57:24 Visit Estrella Smith [facility] [id number] [id number] [id number] [address] OFFICE [facility] 2022-02-03 2022-02-03 Outpatient R [facility] [id number] Univers 13:00:00 13:00:00 ESTRELLA [facility] 2022-02-02 2022-02-02 Outpatient R JAMAR LEMUS [facility] [id number] Univers 13:00:00 13:00:00 ity [facility] 2022-01-06 2022-01-06 Nurse Nurse, Melani Denise [facility] 1.2.840. 114 [id number] Univers 13:00:00 13:58:14 Visit Epifanio [facility] [id number] [id number] [id number] [address] OFFICE [facility] 2022-01-06 2022-01-06 Outpatient Jordyn [facility] [id number] Univers 13:00:00 13:00:00 [facility] 2021-12-15 2021-12-15 Office [facility] 1.2.840.114 [id number] Univers 14:30:00 14:45:[address] [facility] [id number] it y of [place] CANCER [id number] Kyle as CENTER - [phone] [address] 2021-12-15 2021-12-15 Outpatient R [facility] [id number] Univers 14:30:00 14:30:00 FAUSTINO [facility] 2021-12-09 2021-12-09 Outpatient R [facility] [id number] Univers 13:00:00 13:50:42 BILAL ity [facility] 2021-12-09 2021-12-09 Nurse Nurse, Melani Denise [facility] 1.2.840. 114 [id number] Univers 13:00:00 13:50:42 Visit Cayetano Godfreynm BHAVIK [id number] [id number] [id number] [address] OFFICE [facility] 2021-12-09 2021-12-09 Telephone Epifanio [facility] 1.2.619.826 [id number] Univers 00:00:00 00:00:00 Bilal HEALTH [id number] it [id number] [id number] [address] OFFICE [facility] 2021-12-03 2021-12-03 (TEL) STLC STLC [id number] Co mmon 00:00:00 00:00:00 [facility] 2021-11-16 2021-11-16 Telephone Epifanio [facility] 1.2.313.804 [id number] Univers 00:00:00 00:00:00 Bilal HEALTH [id number] [id number] [id number] [address] OFFICE [facility] 2021-11-11 2021-11-11 Nurse Nurse, Melani Denise [facility] 1.2.840. 114 [id number] Univers 13:00:00 15:58:43 [facility] [id number] [id number] [id number] [address] OFFICE [facility] 2021-11-11 2021-11-11 Outpatient R EPIFANIO [facility] [id number] Univers 13:00:00 13:00:00 BILAL ity [facility] 2021-11-11 2021-11-11 Orders Doctor NAE 1.2.840.114 [id number] Univers 00:00:00 00:00:00 Only Unassigned, JESUS [id number] ity of [place] [facility] 4.2.7.2.686 Kyle as [id number] [address] 2021-11-03 2021-11-03 Orders Doctor NAE 1.2.840.114 [id number] Univers 00:00:00 00:00:00 Only Unassigned, JESUS [id number] ity of [place] [facility] [id number] Kyle as [id number] [address] 2021-11-02 2021-11-02 (TEL) STLC STLC [id number] Co mmon 00:00:00 00:00:00 [facility] 2021-10-27 2021-10-27 [facility] [id number] Co mmon 00:00:00 00:00:00 VISIT [facility] 4 [facility] 2021-10-27 2021-10-27 [facility] [id number] Co mmon 00:00:00 00:00:00 [facility] 2021-10-14 2021-10-14 Office [facility] 1.2.840.114 [id number] Univers 16:45:00 16:45:00 Visit [facility] [id number] [id number] [id number] [address] OFFICE BUILDING 2021-10-14 2021-10-14 Outpatient [facility] [id number] Univers 16:45:00 15:48:20 BILAL ity [facility] 2021-10-14 2021-10-14 Outpatient [facility] [id number] Univers 16:45:00 15:48:20 BILAL ity [facility] 2021-09-28 2021-09-28 Telephone IVY Smith 1.2.840.114 [id number] Univers 00:00:00 00:00:00 Estrella Y HEALTH [id number] i ty of [id number] [id number] [address] 2021-09-16 2021-09-16 Nurse Nurse, Bls Urogyn [facility] 1.2.840. 114 [id number] Univers 15:30:00 16:00:00 Visit Estrella Smith HEALTH [id number] it[id number] [id number] [place] [address] [employer] OFFICE BUILDING 2021-09-16 2021-09-16 Outpatient R АЛЕКСАНДР [facility] [id number] Univers 15:30:00 15:30:00 ESTRELLA ity [facility] 2021-09-16 2021-09-16 Outpatient R АЛЕКСАНДР [facility] [id number] Univers 15:30:00 15:30:00 ESTRELLA ity [facility] 2021-09-14 2021-09-14 Outpatient [facility] [id number] [place] 00:00:00 00:00:00 HN 0801 da [facility] 2021-08-19 2021-08-19 Nurse Nurse, Melani Denise [facility] 1.2.840. 114 [id number] Univers 13:30:00 14:36:36 Visit Estrella Smith [facility] 350.1.13.10 [place] [phone] [address] OFFICE BUILDING 2021-08-19 2021-08-19 Outpatient Jordyn SMITH [facility] [id number] Univers 13:30:00 13:30:00 ESTRELLA ity [facility] 2021-07-28 2021-07-28 Outpatient JAMAR JOSEPH [facility] [id number] Univers 13:15:00 14:01:42 ity [facility] 2021-07-28 2021-07-28 Office Jamar Lemus [facility] 1.2.840.114 [id number] Univers 13:15:00 14:01:42 Visit HEALTH 350.1.13.10 it [place] [id number] [facility] [address] OFFICE BUILDING 2021-07-27 2021-07-27 (TEL) STLMLC STLMLC [id number] Co mmon 00:00:00 00:00:00 Spirit - [facility] 2021-07-24 2021-07-24 OFFICE STLMLC STLMLC [id number] Co mmon 00:00:00 00:00:00 VISIT Spirit IRWIN PT - CHI LEVEL 4 [facility] 2021-07-22 2021-07-22 Outpatient JAMAR JOSEPH [facility] [id number] Univers 14:29:30 23:59:00 ity of [facility] 2021-07-22 2021-07-22 Hospital Jamar Lemus [facility] 1.2.840.114 [id number] Univers 14:29:30 23:59:00 Encounter HEALTH 350.1.13.10 [place] [phone] [address] ([facility]) 2021-07-22 2021-07-22 Outpatient Jordyn GODFREY [facility] [id number] Univers 13:30:00 14:26:35 BILAL ity of [facility] 2021-07-22 2021-07-22 Office Epifanio [facility] 1.2.840.114 [id number] Univers 13:30:00 14:26:35 Visit Bilal HEALTH 350.1.13.10 it [place] [phone] [address] OFFICE BUILDING 2021-07-22 2021-07-22 Outpatient Jordyn GODFREY [facility] [id number] Univers 13:30:00 14:26:35 BILAL ity of [facility] 2021-07-14 2021-07-14 Outpatient R JAMAR LEMUS [facility] [id number] Univers 14:30:00 14:36:48 ity of [facility] 2021-07-14 2021-07-14 Office Jamar Lemus [facility] 1.2.840.114 [id number] Univers 14:30:00 14:36:48 Visit HEALTH 350.1.13.10 it [place] [id number] [address] OFFICE BUILDING 2021-07-07 2021-07-07 (TEL) STLC STLC [id number] Co mmon 00:00:00 00:00:00 [facility] 2021-07-06 2021-07-06 Telephone [facility] 1.2.318.843 [id number] Univers 00:00:00 00:00:00 Bilal HEALTH 350.1.13.10 it [place] [id number] [facility] [address] OFFICE BUILDING 2021-06-29 2021-06-29 Telephone [facility] 1.2.205.470 [id number] Univers 00:00:00 00:00:00 Bilal HEALTH 350.1.13.10 it [place] of [place] [phone] [facility] [address] OFFICE [facility] 2021-06-24 2021-06-24 Outpatient [facility] [id number] Univers 13:30:00 17:00:44 BILAL ity [facility] 2021-06-24 2021-06-24 Office [facility] 1.2.840.114 [id number] Univers 13:30:00 13:45:00 Visit Bilal HEALTH 350.1.13.10 it [place] of [place] [phone] [facility] [address] OFFICE BUILDING 2021-06-16 2021-06-16 Outpatient [facility] [id number] Univers 09:30:00 09:30:00 BILAL ity of [facility] 2021-06-16 2021-06-16 Outpatient [facility] [id number] Univers 09:30:00 09:30:00 BILAL ity of [facility] 2021-06-09 2021-06-09 Outpatient [facility] [id number] Univers 09:45:00 11:04:20 BILAL ity [facility] 2021-06-09 2021-06-09 Outpatient [facility] [id number] Univers 09:45:00 11:04:20 BILAL ity of [facility] 2021-06-09 2021-06-09 Office [facility] 1.2.840.114 [id number] Univers 09:45:00 11:04:20 Visit Bilal HEALTH 350.1.13.10 it y of [place] 4.2.7.2.686 [facility] [phone] [facility] PRIMARY & [address] SPECIALTY CARE 2021-06-09 2021-06-09 Outpatient R [facility] [id number] Univers 09:45:00 11:04:20 BILAL ity of [facility] 2021-06-09 2021-06-09 Outpatient R [facility] [id number] Univers 09:45:00 11:04:20 BILAL ity of [facility] 2021-06-04 2021-06-04 Outpatient R [facility] [id number] Univers 13:45:00 14:33:13 BILAL ity of [facility] 2021-06-04 2021-06-04 Outpatient R [facility] [id number] Univers 13:45:00 14:33:13 BILAL ity of [facility] 2021-06-04 2021-06-04 Office [facility] 1.2.840.114 [id number] Univers 13:45:00 14:33:13 Visit Bilal HEALTH 350.1.13.10 it y of [place] 4.2.7.2.686 [facility] [phone] [facility] PRIMARY & [address] SPECIALTY CARE 2021-05-13 2021-05-13 Telephone [facility] 1.2.129.766 [id number] Univers 00:00:00 00:00:00 Bilal HEALTH 350.1.13.10 it y of [place] 4.2.7.2.686 [facility] [phone] [facility] PRIMARY & [address] SPECIALTY CARE 2021-05-07 2021-05-07 Outpatient R [facility] [id number] Univers 13:00:00 15:08:05 BILAL ity of [facility] 2021-05-07 2021-05-07 Office [facility] 1.2.840.114 [id number] Univers 13:00:00 15:08:05 Visit Bilal HEALTH 350.1.13.10 it y of [place] 4.2.7.2.[address] [place] [address] [id number] [facility] PRIMARY & [address] SPECIALTY CARE 2021-05-07 2021-05-07 Outpatient [facility]ordyn [facility] [id number] Univers 13:00:00 15:08:05 BILAL ity [facility] 2021-05-07 2021-05-07 Orders Doctor SONI 1.2.840.114 [id number] Univers 00:00:00 00:00:00 Only Unassigned, JESUS 350.1.13.[address] [facility] 4.2.7..[address] [place] [address] [phone] [facility] [address] 2021-04-27 2021-04-27 [facility] [id number] Co mmon 00:00:00 00:00:00 VISIT Spirit ESTAB PT - CHI LEVEL 4 [facility] 2021-04-27 2021-04-27 (TEL) STLC STLC [id number] Co mmon 00:00:00 00:00:00 Spirit - [facility] 2021-04-27 2021-04-27 [facility] [id number] Common 00:00:00 00:00:00 MCR Spirit WELLNESS - CHI VISIT [facility] 2021-04-17 2021-04-17 (TEL) [facility] [id number] Co mmon 00:00:00 00:00:00 Spirit - [facility] 2021-04-14 2021-04-14 Outpatient [facility] [id number] Univers 15:00:00 16:01:53 BILAL ity [facility] 2021-04-14 2021-04-14 Office [facility] 1.2.840.114 [id number] Univers 15:00:00 16:01:53 Visit Bilal HEALTH 350.1.13.10 it y of [place] 4.2.7.2.[address] [place] [address] [phone] [facility] PRIMARY & [address] SPECIALTY CARE 2021-04-14 2021-04-14 Outpatient R EPIFANIO, [facility] [id number] Univers 15:00:00 16:01:53 BILAL ity [facility] 2021-04-14 2021-04-14 Outpatient R EPIFANIO, [facility] [id number] Univers 15:00:00 16:01:53 BILAL ity [facility] 2021-04-08 2021-04-08 [facility] [id number] Co mmon 00:00:00 00:00:00 [facility] 2021-04-03 2021-04-03 Nurse Nurse, Adc Surgery [facility] 1.2. 840.114 [id number] Univers 15:00:00 15:00:00 Visit Karolina Boone 350.1.13.10 ity [facility] [place] [phone] Nj dic[address] 2021-04-03 2021-04-03 Outpatient R [facility] [id number] Univers 15:00:00 14:31:18 KAROLINA itbenita [facility] 2021-04-03 2021-04-03 Outpatient R [facility] [id number] Univers 15:00:00 14:31:18 KAROLINATARSHA cotto [facility] 2021-04-01 2021-04-01 Outpatient R MELY, [facility] [id number] Univers 09:00:00 10:54:30 KAROLINA cotto [facility] 2021-04-01 2021-04-01 Office [facility] 1.2.840.114 [id number] Univers 09:00:00 10:54:30 Visit Karolina BETTS 350.1.13.10 ity of [place] [phone] Nj dical NAL [address] [place] [address] 2021-04-01 2021-04-01 Outpatient R GRAMM, [facility] [id number] Univers 09:00:00 10:54:30 KAROLINA ity [facility] 2021-04-01 2021-04-01 Outpatient R [facility] [id number] Univers 09:00:00 10:54:30 KAROLINA ity of [facility] 2021-03-31 2021-03-31 Orders Doctor NAE 1.2.840.114 [id number] Univers 00:00:00 00:00:00 Only Unassigned, JESUS 350.1.13.10 ity of [place] [facility] 4.2.7.2.686 Kyle as [phone] [address] 2021-03-30 2021-03-30 (TEL) STLMLC STLMLC [id number] Co mmon 00:00:00 00:00:00 [facility] 2021-03-30 2021-03-30 (TEL) STLMLC STLMLC [id number] Co mmon 00:00:00 00:00:00 [facility] 2021-03-30 2021-03-30 (TEL) STLMLC STLMLC [id number] Co mmon 00:00:00 00:00:00 [facility] 2021-03-26 2021-03-26 (HOSP F/U) STLMLC STLMLC [id number] Common 00:00:00 00:00:00 [facility] 2021-03-25 2021-03-25 (TEL) STLMLC STLMLC [id number] Co mmon 00:00:00 00:00:00 [facility] 2021-03-19 2021-03-19 (TEL) STLMLC STLMLC [id number] Co mmon 00:00:00 00:00:00 [facility] 2021-03-18 2021-03-18 (TEL) STLMLC STLMLC [id number] Co mmon 00:00:00 00:00:00 [facility] 2021-03-13 2021-03-13 (TEL) STLMLC STLMLC [id number] Co mmon 00:00:00 00:00:00 [facility] 2021-03-10 2021-03-10 OFFICE STLMLC STLMLC [id number] Co mmon 00:00:00 00:00:00 VISIT Spirit ESTAB PT - CHI LEVEL 2 [facility] 2021-03-09 2021-03-09 (TEL) STLMLC STLMLC [id number] Co mmon 00:00:00 00:00:00 Spirit [facility] 2021-01-23 2021-01-23 OFFICE STLMLC STLMLC [id number] Co mmon 00:00:00 00:00:00 VISIT NEW [facility] it PT LEVEL 4 - [facility] 2020-12-24 2020-12-24 (TEL) STLMLC STLMLC [id number] Co mmon 00:00:00 00:00:00 [facility] 2020-12-22 2020-12-22 (TEL) STLMLC STLMLC [id number] Co mmon 00:00:00 00:00:00 [facility] 2020-11-27 2020-11-27 [facility] 1.2.840.114 [id number] Univers 07:37:00 10:50:00 Encounter Khoi Betts 350.1.13.10 ity of [place] [phone] [facility] [address] 2020-11-27 2020-11-27 Surgery [facility] 1.2.840.114 [id number] Univers 09:51:00 10:28:00 Khoi Betts 350.1.13.10 i ty of [place] [phone] [facility] [address] 2020-11-25 2020-11-25 Outpatient [facility] [id number] Univers 11:30:00 11:30:00 KHOI cotto of [facility] 2020-11-25 2020-11-25 Laboratory Only, Adc Test [facility] 1.2.840. 114 [id number] Univers 11:13:10 11:28:10 Only Khoi Lan 350.1.1 3.10 ity of [place].2.686 [place] [id number] [place] [address] [address] 2020-11-25 2020-11-25 Orders Doctor NAE 1.2.840.114 [id number] Univers 00:00:00 00:00:00 Only Unassigned, JESUS 350.1.13.10 ity of [place] [facility] 4.2.7.2.686 Kyle as [phone] [facility] [address] 2020-11-11 2020-11-11 [facility] 1.2.840.114 [id number] Univers 00:00:00 00:00:00 Zehra Betts 350.1.13.10 ity of [place] [phone] [facility] [address] [facility] 2020-10-23 2020-10-23 [facility] 1.2.840.114 [id number] Univers 06:56:00 10:08:00 Encounter Khoi Betts 350.1.13.10 ity of [place] [phone] [facility] [address] 2020-10-23 2020-10-23 Surgery [facility] 1.2.840.114 [id number] Univers 09:07:00 09:44:00 Khoi Betts 350.1.13.10 i ty of [place].2.[place] [id number] [facility] [address] 2020-10-21 2020-10-21 Laboratory Only, Adc Test [facility] 1.2.840. 114 [id number] Univers 11:48:01 12:03:01 Only Khoi Lan 350.1.1 3.10 ity of [place] [id number] [facility] [address] 2020-10-21 2020-10-21 Outpatient R [facility] [id number] Univers 11:45:00 11:45:00 ity of [facility] 2020-10-16 2020-10-16 Outpatient R [facility] [id number] Univers 13:45:00 13:45:00 KHOI cotto [facility] 2020-10-16 2020-10-16 Machinist Apprentice Wood Korin, Adc Lab Main [facility] 1.2.8 40.114 [id number] Univers 12:13:01 12:28:01 Visit Khoi Lan 350.1.1 3.10 ity of [place] [phone] [address] 2020-10-16 2020-10-16 Orders Doctor NAE 1.2.840.114 [id number] Univers 00:00:00 00:00:00 Only Unassigned, JESUS 350.1.13.10 ity of [place] [facility] 4.2.7.2.686 Kyle as [phone] [address] 2020-04-12 2020-04-12 Outpatient [facility] [id number] Univers 08:45:00 08:45:00 ity of [facility] 2020-04-05 2020-04-05 Outpatient [facility] [id number] Univers 08:45:00 08:45:00 ity of [facility] 2020-03-15 2020-03-15 Outpatient [facility] [id number] Univers 10:30:00 10:30:[facility] 2019-09-29 2019-09-29 [facility] 1.2.840.114 [id number] 00:00:00 00:00:00 Zehra Betts 350.1.13.10 [place] 4.2.7.2.686 Professio [phone] [address] 2019-09-29 2019-09-29 [facility] [place] 1.2.840.114 [id number] Univers 00:00:00 00:00:00 Zehra Betts 350.1.13.10 ity of [place] [phone] [address] 2019-09-08 2019-09-08 [facility] [place] 1.2.840.114 [id number] 00:00:00 00:00:00 Zehra Betts 350.1.13.10 [place] 4.2.7.2.686 Professio [phone] [address] 2019-09-08 2019-09-08 [facility] 1.2.840.114 [id number] Univers 00:00:00 00:00:00 Zehra Betts 350.1.13.10 ity of [place] [phone] Nj dic[address] 2019-08-16 2019-08-16 Orders Doctor NAE 1.2.840.114 [id number] 00:00:00 00:00:00 Only Unassigned, JESUS 350.1.13.10 [place] [facility] 4.2.7.2.686 [id number] [facility] 2019-08-16 2019-08-16 Orders Doctor NAE 1.2.840.114 [id number] Univers 00:00:00 00:00:00 Only Unassigned, JESUS 350.1.13.10 ity of [place] [facility] 4.2.7.2.686 Kyle as [phone] [address] 2019-08-10 2019-08-10 Office [place] 1.2.840.114 [id number] [facility] 12:12:21 12:52:21 Visit Zehra Betts 350.1.13.10 ity of [place] [phone] [address] 2019-08-10 2019-08-10 Office [facility] 1.2.840.114 [id number] 12:12:21 12:52:21 Visit Zehra Betts 350.1.13.10 [place] 4.2.7.2.686 Professio [phone] [address] 2019-08-10 2019-08-10 Outpatient R LINDY [facility] [id number] [facility] 12:20:00 12:20:00 ZEHRA ity of [facility] 2019-08-07 2019-08-07 Telephone [facility] 1.2.840.114 [id number] Univers 00:00:00 00:00:00 Zehra [place] 350.1.13.10 ity of [place] [phone] Nj dical nal 231 [facility] 2019-07-20 2019-07-20 [facility] 12.840.114 7 [id number] Univers 00:00:00 00:00:00 Zehra A [place] 350.1.13.10 ity of [place] [phone] Nj dic[address] 2019-07-19 2019-07-[address]114 7 [id number] Univers 00:00:00 00:00:00 Zehra A [place] 350.1.13.10 ity of [place] [phone] [facility] 044 [facility] 2019-07-16 2019-07-16 [facility] 1.2.840.114 [id number] Univers 00:00:00 00:00:00 Zehra A [place] 350.1.13.10 ity of [place] 4[place].2.[place] [phone] Nj dical nal 231 [facility] 2019-05-02 2019-05-02 [facility] 12.840.114 [id number] Univers 00:00:00 00:00:00 Zehra A [place] 350.1.13.10 ity of [place] [phone] Nj dical formerly [facility] 231 [facility] 2019-04-24 2019-04-24 [facility] 1.2.840.114 [id number] Univers 00:00:00 00:00:00 Zehra A [place] 350.1.13.10 ity of [place] 4[place].2.[place] [phone] Nj [address] 2019-04-20 2019-04-20 Office [facility] 1.2.840.114 [id number] Univers 09:35:10 11:39:26 Visit Zehra Betts 350.1.13.10 ity of [place] 4[place] [phone] [address] 2019-04-20 2019-04-20 Outpatient [facility] [id number] Univers 09:40:00 09:40:00 ZEHRA ity of [facility] 2019-04-20 2019-04-20 Orders Doctor SONI 1.2.840.114 [id number] Univers 00:00:00 00:00:00 Only Unassigned, JESUS 350.1.13.10 ity of [place] [facility] 4.2.7.2.686 Kyle as [phone] [address] 2019-01-23 2019-01-23 Orders Doctor SONI 1.2.840.114 [id number] Univers 00:00:00 00:00:00 Only Unassigned, JESUS 350.1.13.10 ity of [place] [facility] 4.2.7.2.686 Kyle as [phone] [address] 2018-10-20 2018-10-20 [facility] 1.2.840.114 [id number] Univers 00:00:00 00:00:00 Zehra Betts 350.1.13.10 ity of [place] [phone] [address] 2018-10-19 2018-10-19 Telephone [facility] 1.2.840.114 [id number] Univers 00:00:00 00:00:00 Zehra Betts 350.1.13.10 it[place] of [place] [phone] [address] 2018-09-28 2018-09-28 [facility]ill [facility] 1.2.840.114 [id number] Univers 00:00:00 00:00:00 Zehra Alvaradoton 350.1.13.10 ity of [place] [phone] [address] 2018-09-08 2018-09-[address]114 7 [id number] Univers 00:00:00 00:00:00 Zehra Alvaradoton 350.1.13.10 ity of [place] [phone] [address] 2018-09-08 2018-09-08 [place] [address].2.840.114 705 [id number] Univers 00:00:00 00:00:00 Zehra Alvaradoton 350.1.13.10 ity of [place] [phone] [address] Results This patient has no known results.
[2022-08-04 04:08] LABS: Renal Epithelial <5 /HPF (None Seen); Urine Bacteria <20 /HPF (<20); Urine RBC None Seen /HPF (None Seen)
[2022-08-04 04:09] LABS: Specific Gravity 1.006 (1.005-1.030); Urine Bilirubin NEGATIVE (Negative); Urine Blood Negative (Negative); Urine Glucose Negative (Negative); Urine Protein NEGATIVE (Negative); Urine Urobilinogen Normal (Normal)
[2022-08-04 04:10] LABS: Urine Clarity Clear (Clear); Urine Color Colorless (Yellow)
--- NOTE | 2022-08-04 04:16 | EDPHYS ---
Physician Documentation [facility] Name: Hortensia Bergman Age: 76 yrs Sex: Female : 1945 Arrival Date: 08/04/2022 Time: 02:52 Bed 4 Private MD: ED Physician Jas Gallo HPI: 08/04 03:09 This 76 yrs old Female presents to ER via Unassigned with complaints of sp3 Problem With Urinary Catheter. 03:09 76-year-old female with PMH listed in the nursing note and also indwelling catheter for sp3 over 1 year presents with chief complaint of failure to produce urine and urinary distention in her bladder along with mild lower abdominal pain since yesterday evening. Patient denies any other symptoms including fever, blood in her urine, upper abdominal pain, significant abdominal pain, flank pain, chest pain, shortness of breath, focal neurological problem, or any other signs or symptoms on ROS at this time.. Historical: - Allergies: 03:41 Codeine; lg3 03:41 Iodine; lg3 - PMHx: 03:41 abd hernia; diabetes mellitus; Hypercholesterolemia; Hypertensive disorder; lg3 - PSHx: 03:41 Appendectomy; Cholecystectomy; lg3 - Immunization history:: Adult Immunizations up to date, Client reports receiving the 2nd dose of the Covid vaccine, Flu vaccine is up to date. - Social history:: Smoking status: Patient denies any tobacco usage or history of. Patient/guardian denies using alcohol, street drugs. ROS: 03:10 Constitutional: Negative for fever, chills, and weight loss, Eyes: Negative for injury, sp3 pain, redness, and discharge, Neck: Negative for injury, pain, and swelling, Cardiovascular: Negative for chest pain, palpitations, and edema, Respiratory: Negative for shortness of breath, cough, wheezing, and pleuritic chest pain, Abdomen/GI: Negative for abdominal pain, nausea, vomiting, diarrhea, and constipation, Back: Negative for injury and pain, MS/Extremity: Negative for injury and deformity, Skin: Negative for injury, rash, and discoloration, Neuro: Negative for headache, weakness, numbness, tingling, and seizure, Psych: Negative for depression, anxiety, suicide ideation, homicidal ideation, and hallucinations, Allergy/Immunology: Negative for hives, rash, and allergies, Endocrine: Negative for neck swelling, polydipsia, polyuria, polyphagia, and marked weight changes. 03:10 All other systems are negative. Exam: 03:10 Constitutional: This is a well developed, well nourished patient who is awake, alert, sp3 and in no acute distress. Head/Face: Normocephalic, atraumatic. Neck: Trachea midline, no thyromegaly or masses palpated, and no cervical lymphadenopathy. Supple, full range of motion without nuchal rigidity, or vertebral point tenderness. No Meningismus. Chest/axilla: Normal chest wall appearance and motion. Nontender with no deformity. No lesions are appreciated. Cardiovascular: Regular rate and rhythm with a normal S1 and S2. No gallops, murmurs, or rubs. Normal PMI, no JVD. No pulse deficits. Respiratory: Lungs have equal breath sounds bilaterally, clear to auscultation and percussion. No rales, rhonchi or wheezes noted. No increased work of breathing, no retractions or nasal flaring. Back: No spinal tenderness. No costovertebral tenderness. Full range of motion. Skin: Warm, dry with normal turgor. Normal color with no rashes, no lesions, and no evidence of cellulitis. MS/ Extremity: Pulses equal, no cyanosis. Neurovascular intact. Full, normal range of motion. Neuro: Awake and alert, GCS 15, oriented to person, place, time, and situation. Cranial nerves II-XII grossly intact. Motor strength 5/5 in all extremities. Sensory grossly intact. Cerebellar exam normal. Normal gait. 03:10 Abdomen/GI: Distended bladder noted. No abdominal pain, rebound or guarding or other peritoneal signs noted.. Vital Signs: 03:40 BP 156 / 81; Pulse 91; Resp 17 S; Temp 97.9(O); Pulse Ox 100% on R/A; Weight 63.5 kg lg3 (R); Height 4 ft. 11 in. (R); Pain 0/10; 04:25 BP 97 / 68; Pulse 77; Resp 19; Pulse Ox 97% ; Pain 0/10; jj7 03:40 Body Mass Index 28.28 (63.50 kg, 149.86 cm) lg3 03:40 Pain Scale: Adult lg3 04:25 Pain Scale: Adult jj7 MDM: 02:57 Patient medically screened. sp3 03:11 Data reviewed: vital signs, nurses notes, lab test result(s). ED course: 76-year-old sp3 female with urinary bladder distention secondary to likely catheter malfunction. We will have nursing staff change catheter and send urine for analysis and disposition based on whether patient has an infection or not. Follow-up with her urologist and PCP on discharge.. 04:15 ED course: Valdez successfully placed. Urine analysis demonstrates no infection we will sp3 safely discharge patient home at this time.. 08/04 03:09 Order name: UAM; Complete Time: 04:15 sp3 08/04 03:09 Order name: Urine Culture sp3 08/04 03:48 Order name: Valdez Leg Bag; Complete Time: 03:48 lg3 Administered Medications: No medications were administered Disposition Summary: 08/04/22 04:16 Discharge Ordered Location: Home sp3 Condition: Stable sp3 Diagnosis - Valdez catheter malfunction, urinary retention sp3 Followup: sp3 - With: Private Physician - When: Upon discharge from the Emergency Department - Reason: Continuance of care Discharge Instructions: - Discharge Summary Sheet sp3 - Indwelling Urinary Catheter Care, Adult sp3 Forms: - Medication Reconciliation Form sp3 - Thank You Letter sp3 - Antibiotic Education sp3 - Prescription Opioid Use sp3 Signatures: Dispatcher [employer] Junie Mason, RN RN lg3 Jas Gallo MD MD sp3
--- NOTE | 2022-08-04 04:16 | ER ---
Nurse's Notes [facility] Name: Hortensia Bergman Age: 76 yrs Sex: Female : 1945 Arrival Date: 08/04/2022 Time: 02:52 Bed 4 Private MD: Diagnosis: Valdez catheter malfunction, urinary retention Presentation: 08/04 03:40 Chief complaint: Patient states: Valdez placed at home at 2230 with no output. lg3 Coronavirus screen: Client denies travel out of the [place] in the last 14 days. At this time, the client does not indicate any symptoms associated with coronavirus-19. Ebola Screen: No symptoms or risks identified at this time. Initial Sepsis Screen: Does the patient meet any 2 criteria? No. Patient's initial sepsis screen is negative. Does the patient have a suspected source of infection? No. Patient's initial sepsis screen is negative. Risk Assessment: Do you want to hurt yourself or someone else? Patient reports no desire to harm self or others. Onset of symptoms was August 03, 2022. 03:40 Method Of Arrival: Ambulatory lg3 03:40 Acuity: SPARKLE 4 lg3 Triage Assessment: 03:41 General: Appears in no apparent distress. uncomfortable, Behavior is calm, cooperative. lg3 Pain: Complains of pain in bladder. EENT: No deficits noted. No signs and/or symptoms were reported regarding the EENT system. Neuro: No deficits noted. Small Agitation-Sedation Scale (RASS): 0 - Alert and Calm Level of Consciousness is awake, alert, obeys commands, Oriented to person, place, time, situation. Cardiovascular: No deficits noted. Denies chest pain, shortness of breath, Capillary refill < 3 seconds Clubbing of nail beds is absent JVD is absent Patient's skin is warm and dry. Respiratory: No deficits noted. Airway is patent Respiratory effort is even, unlabored, Respiratory pattern is regular, symmetrical. GI: No deficits noted. No signs and/or symptoms were reported involving the gastrointestinal system. Abdomen is round non-distended. : Valdez in place to gravity drainage Last void was August 03, 2022. at 22:30. Bladder is distended Reports inability to void. Derm: No deficits noted. No signs and/or symptoms reported regarding the dermatologic system. Skin is intact, is healthy with good turgor, Skin is dry, Skin is normal, Skin temperature is warm. Musculoskeletal: No deficits noted. No signs and/or symptoms reported regarding the musculoskeletal system. Circulation, motion, and sensation intact. Range of motion: intact in all extremities. Historical: - Allergies: 03:41 Codeine; lg3 03:41 Iodine; lg3 - PMHx: 03:41 abd hernia; diabetes mellitus; Hypercholesterolemia; Hypertensive disorder; lg3 - PSHx: 03:41 Appendectomy; Cholecystectomy; lg3 - Immunization history:: Adult Immunizations up to date, Client reports receiving the 2nd dose of the Covid vaccine, Flu vaccine is up to date. - Social history:: Smoking status: Patient denies any tobacco usage or history of. Patient/guardian denies using alcohol, street drugs. Screenin:44 [facility] ED Fall Risk Assessment (Adult) History of falling in the last 3 months, lg3 including since admission No falls in past 3 months (0 pts). Abuse screen: Denies threats or abuse. Denies injuries from another. Nutritional screening: No deficits noted. Tuberculosis screening: No symptoms or risk factors identified. Assessment: 03:44 General: see triage assessment . lg3 Vital Signs: 03:40 BP 156 / 81; Pulse 91; Resp 17 S; Temp 97.9(O); Pulse Ox 100% on R/A; Weight 63.5 kg lg3 (R); Height 4 ft. 11 in. (R); Pain 0/10; 04:25 BP 97 / 68; Pulse 77; Resp 19; Pulse Ox 97% ; Pain 0/10; jj7 03:40 Body Mass Index 28.28 (63.50 kg, 149.86 cm) lg3 03:40 Pain Scale: Adult lg3 04:25 Pain Scale: Adult jj7 ED Course: 02:54 Patient arrived in ED. ja2 02:57 aJs Gallo MD is Attending Physician. sp3 03:40 Junie Merino, LUDY is Primary Nurse. lg3 03:41 Triage completed. lg3 03:41 Arm band placed on right wrist. lg3 03:43 Urine Culture Sent. as7 03:43 UAM Sent. as7 03:44 Patient has correct armband on for positive identification. Placed in gown. Bed in low lg3 position. Call light in reach. Side rails up X 1. Client placed on continuous cardiac and pulse oximetry monitoring. NIBP monitoring applied. Door closed. Noise minimized. Warm blanket given. 03:45 Valdez cath removed intact, balloon deflated, 15ml of clear yellow urine noted in leg lg3 bag at time of removal. 03:46 Valdez cath inserted, using sterile technique, 16 Fr., by nd, balloon inflated, to lg3 gravity drainage, urine specimen collected. returned clear yellow urine. Patient tolerated well. 640ml clear yellow urine output noted post insertion. 04:24 No provider procedures requiring assistance completed. Patient did not have IV access jj7 during this emergency room visit. Administered Medications: No medications were administered Medication: 03:48 VIS not applicable for this client. lg3 Outcome: 04:16 Discharge ordered by . [email or web address] 04:24 Discharged to home ambulatory. jj7 04:24 Condition: improved 04:24 Discharge instructions given to patient, Instructed on discharge instructions, follow up and referral plans. Demonstrated understanding of instructions, follow-up care. 04:27 Patient left the ED. jj7 Signatures: Junie Merino, RN RN lg3 Jas Gallo MD MD sp3 Tamie Munoz Juwairiyah, RN RN jj7 [place] [email or web address]
[2022-08-04 04:33] VITALS: TEMP 97.9
[2022-08-04 04:34] VITALS: BP 97/68; O2SAT 97
== END 2022-08-04 04:27 | disposition home or self-care (01) ==
LOC: ER 02:52
PROC: 0T2BX0Z Change Drainage Device in Bladder, External Approach (ICD-10-PCS; principal; 2022-08-04)
DX: T83.018A Breakdown (mechanical) of other urinary catheter, initial encounter (principal); R33.9 Retention of urine, unspecified; Z88.5 Allergy status to narcotic agent; Z91.048 Other nonmedicinal substance allergy status
CPT/HCPCS: 81001; 87086; 87088

== ENCOUNTER 2022-11-02 02:42 | Emergency (ER) | payer OTHER ==
--- OUTSIDE RECORDS SUMMARY | 2022-11-02 02:51 | XMS REPORT | Continuity of Care Document ---
:1945 Author Organization [facility] t Address [address] [place] [address] Care Team Providers Name Role Phone Sabino Roland M Primary Care Physician Roland Gallo Attending Clinician Unavailable KHOI LAN Attending Clinician Unavailable Nurse, [facility] Urology Attending Clinician Unavailable Alpa Godfrey MD Attending Clinician ALPA GODFREY Attending Clinician Unavailable Unknown, Attending Attending Clinician Unavailable Doctor Unassigned, [place] Attending Clinician Unavailable Nurse, Bls Urogyn Attending Clinician Unavailable Estrella Pond Attending Clinician ESTRELLA SMITH Attending Clinician Unavailable JAMAR LEMUS Attending Clinician Unavailable Faustino Ralph MD Attending Clinician [phone] FAUSTINO RALPH Attending Clinician Unavailable Jamar Lemus MD Attending Clinician Nurse, Adc Surgery Gu Attending Clinician Unavailable Gramm Karolina [place] Attending Clinician KAROLINA BOONE Attending Clinician Unavailable Khoi Lan MD Attending Clinician Only, Adc Test Attending Clinician Unavailable Zehra Israel MD Attending Clinician [phone] Pob, Ad[facility] Lab Main Attending Clinician Unavailable ZEHRA ISRAEL Attending Clinician Unavailable KHOI LAN Admitting Clinician Unavailable Khoi Lan MD Admitting Clinician Payers Payer Name Policy Type Policy Number Effective Date Expiration Date Anahy asher [employer]panda / [employer] [id number] 00:00:00 MEDICARE PART A [id number] 2000 \\T\\ B 00:00:00 [facility] [id number] [facility] C1 [id number] [facility] Problems Condition Condition Condition Status Onset Resolution [...] sciatica Vitamin B1 Vitamin B1 Disease Active 2020-0 U nivers deficiency deficiency 3-08 it y of 00:00: [place] 00 [facility] Branch B12 B12 Disease Active 2020- Univers deficiency deficiency 3-08 it y of 00:00: [place] 00 [facility] Branch Pyridoxine Pyridoxine Disease Active 2020-0 U nivers deficiency deficiency 3-08 it y of 00:00: [place] 00 Medical Branch Vitamin D Vitamin D Disease Active 2020-0 Uni vers deficiency deficiency 3-08 it y of 00:00: [place] 00 Medical Branch Glaucoma Glaucoma Disease Active [...] ity of 00:00: [place] 00 Medical Branch Insomnia Insomnia Disease Active Overview: Un concepción 2-26 Formattin ity of 00:00: g of this [place] 00 note Medical might be Branch different from the original. 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 use of use of ICD10 insulin insulin Diagnosis Term Director Of Sustainability Programs Utility Essential Essential Disease Active Uni vers hypertensi hypertensi 7-12 it y of on, benign [place], benign [place] HLD HLD Disease Active Overview: Univer s (hyperlipi (hyperlipi 7-12 Formattin ity of demia) demia) 00:00: g of this [place] 00 note Medical might be Branch different from the original. ICD10 Diagnosis Term Director Of Sustainability Programs Utility Generalize Generalize Disease Active U nivers d d 7-12 ity of osteoarthr [place]oarthr [place] osis, osis, 00 Medical unspecifie unspecifie Br anch d site d site [id number] Hypoglycem Problem C ommon [address] ia due to Spirit type 2 - [facility] diabetes [facility] [id number] Iron Problem Common deficiency Spirit anemia, - [facility] unspecifie [facility] iron [facility] deficiency Medica l anemia Center type [id number] Urinary Problem Commo n incontinen Spirit ce, - [facility] unspecifie [facility] Indwelling Indwelling Problem C ommon urinary urinary Spirit catheter catheter - [facility]I present present [facility] [id number] Body mass Problem Com mon index Spirit [BMI] - CHI 32.0-32.9, [facility] [id number] Diabetic Problem Comm on polyneurop Spirit athy - [facility]I associated [facility] with type [facility] 2 diabetes Medica l mellitus Center [id number] Essential Problem Comm on (primary) Spirit hypertensi - [facility] on [facility] [id number] Hypothyroi Problem Co mmon dism Spirit (acquired) - [facility] [id number] MCC Problem Com mon (current) Spirit use of - [facility] insulin [facility] [id number] Other Problem Common obesity Spirit due to - [facility] excess [facility] [id number] Type 2 Problem Common diabetes Spirit mellitus - [facility] with [facility] [id number] Mixed Problem Common hyperlipid Spirit emia - [facility] Allergies, Adverse Reactions, Alerts Allergy Allergy Status Severity Reaction(s) Onset Inactive Treating Comm ents Source Name Type Date Date Clinician Iodine Propensi Active Hives 2005-02 Univers ty to 02-14 ity of adverse 00:00: [place] reaction 00 [facility] [place] IODINE DRUG Active Hives 2005-02 Univers INGREDI 02-14 ity of 00:00: [place] 00 [facility] Codeine Propensi Active Rash 2005- Univers ty to 08-25 ity of adverse 00:00: [place] reaction 00 [facility] CODEINE DRUG Active Rash 2005- Univers INGREDI 08-25 ity of 00:00: [place] 00 [facility] codeine codeine Active hives Common Spirit - [facility] 463 Drug Active hives Common allergy Spirit - [facility] Social History Social Habit Start Date Stop Date Quantity Comments Source Gender identity Universit y [facility] Sexual orientation Univer sity [facility] Sex Assigned At Common Sp ruth - [facility] History of Tobacco Common Spirit - Use [facility] Alcohol intake 2022-08-25 2022-08-25 Current University of 00:00:00 00:00:00 non-drinker of [facility] [place] alcohol Webber (finding) Exposure to 2022-06-13 2022-06-23 Not sure University [facility]-CoV-2 (event) 00:00:00 12:16:00 [facility] History of Social 2021-06-04 2021-06-04 Univers ity of function 00:00:00 00:00:00 [facility] Smoking Status Start Date Stop Date Source Never smoked tobacco [facility] [place] [facility] Medications Ordered Filled Start Stop Current Ordering Indication Dosage Frequency Signature Comments Components Source Medication Medication Date Date Medication? Clinician (SIG) Name Name fluconazole 2022- Yes [id number] 150mg Take 1 Univers 150 mg 08-25- tablet by ity of tablet 00:00: 04:59 [place] :[place] now for 1 Medical dose. Branch Repeat dosage in 72 hours if symptoms persist. Nitrofurant 2022- Yes 100mg Take 1 Un concepción oin&Nit. 6 07-04 capsule by ity of Macrocryst 00:00: 04:59 [place] (MACROBID[place] 00 :00 the Medical 100 mg morning Branch capsule and 1 capsule in the evening. Do all this for 5 days. Insulin Insulin 2021-02 No Insulin Syringe 31G Syringe 31G 0-20 Syringe X 5/16" 0.3 X 5/16" 0.3 00:00: 31G X ML ML 00 5/16" 0.3 ML sulfamethox 2021-02- No [id number] 1{tbl} Take 1 Univers azole-trime 0-04 10-10 tablet by it y of thoprim 00:00: 04:59 mouth in [place] (BACTRIM 00 :00 the Medical DS) 800-160 morning Branc h mg per and 1 tablet tablet in the evening. Do all this for 5 days. Lantus 100 Lantus 100 No QD Lantus 100 UNIT/ML UNIT/ML 6-13 UNIT/ML 00:00: 00 Lantus 100 Lantus 100 No QD Lantus 100 UNIT/ML UNIT/ML 6-13 UNIT/ML 00:00: 00 Lantus 100 Lantus 100 0 No QD Lantus 100 UNIT/ML UNIT/ML 6-13 UNIT/ML 00:00: 00 Lantus 100 Lantus 100 No QD Lantus 100 UNIT/ML UNIT/ML 6-13 UNIT/ML 00:00: 00 Lantus 100 Lantus 100 No QD Lantus 100 UNIT/ML UNIT/ML 6-13 UNIT/ML 00:00: 00 tamsulosin Yes [id number] .4mg Take 1 Univers 0.4 mg 24 4-21 capsule by ity of hr capsule 00:00: mouth [place] 00 daily. [facility] estradioL 2-0 Yes [id number] 2g Insert 2 g Univers 0.01 % (0.1 4-21 into ity of mg/gram) 00:00: vagina [place] vaginal 00 weekly. Medical cream Every Branch night for 2 weeks then 3 times a week tamsulosin 2-0 Yes [id number] .4mg Take 1 Univers 0.4 mg 24 4-21 capsule by ity of hr capsule 00:00: mouth [place] 00 daily. [facility] estradioL 2021-0 Yes [id number] 2g Insert 2 g Univers 0.01 % (0.1 4-21 into ity of mg/gram) 00:00: vagina [place] vaginal 00 weekly. Medical cream Every Branch night for 2 weeks then 3 times a week tamsulosin 2021-0 Yes [id number] .4mg Take 1 Univers 0.4 mg 24 4-21 capsule by ity of hr capsule 00:00: mouth [place] 00 daily. [facility] estradioL 2021-0 Yes [id number] 2g Insert 2 g Univers 0.01 % (0.1 4-21 into ity of mg/gram) 00:00: vagina [place] vaginal 00 weekly. Medical cream Every Branch night for 2 weeks then 3 times a week tamsulosin 2-0 Yes [id number] .4mg Take 1 Univers 0.4 mg 24 4-21 capsule by ity of hr capsule 00:00: mouth [place] 00 daily. [facility] estradioL 2-0 Yes [id number] 2g Insert 2 g Univers 0.01 % (0.1 4-21 into ity of mg/gram) 00:00: vagina [place] vaginal 00 weekly. Medical cream Every Branch night for 2 weeks then 3 times a week tamsulosin 2-0 Yes [id number] .4mg Take 1 Univers 0.4 mg 24 4-21 capsule by ity of hr capsule 00:00: mouth [place] 00 daily. [facility] estradioL 2-0 Yes [id number] 2g Insert 2 g Univers 0.01 % (0.1 4-21 into ity of mg/gram) 00:00: vagina [place] vaginal 00 weekly. Medical cream Every Branch night for 2 weeks then 3 times a week tamsulosin 2022-0 Yes [id number] .4mg Take 1 Univers 0.4 mg 24 4-21 capsule by ity of hr capsule 00:00: mouth [place] 00 daily. [facility] estradioL 2-0 Yes [id number] 2g Insert 2 g Univers 0.01 % (0.1 4-21 into ity of mg/gram) 00:00: vagina [place] vaginal 00 weekly. Medical cream Every Branch night for 2 weeks then 3 times a week tamsulosin 2-0 Yes [id number] .4mg Take 1 Univers 0.4 mg 24 4-21 capsule by ity of hr capsule 00:00: mouth [place] 00 daily. [facility] estradioL 2021-0 Yes [id number] 2g Insert 2 g Univers 0.01 % (0.1 4-21 into ity of mg/gram) 00:00: vagina [place] vaginal 00 weekly. Medical cream Every Branch night for 2 weeks then 3 times a week tamsulosin 2-0 Yes [id number] .4mg Take 1 Univers 0.4 mg 24 4-21 capsule by ity of hr capsule 00:00: mouth [place] 00 daily. [facility] estradioL 2021-0 Yes [id number] 2g Insert 2 g Univers 0.01 % (0.1 4-21 into ity of mg/gram) 00:00: vagina [place] vaginal 00 weekly. Medical cream Every Branch night for 2 weeks then 3 times a week tamsulosin 2-0 Yes [id number] .4mg Take 1 Univers 0.4 mg 24 4-21 capsule by ity of hr capsule 00:00: mouth [place] 00 daily. [facility] estradioL 2-0 Yes [id number] 2g Insert 2 g Univers 0.01 % (0.1 4-21 into ity of mg/gram) 00:00: vagina [place] vaginal 00 weekly. Medical cream Every Branch night for 2 weeks then 3 times a week tamsulosin 2-0 Yes [id number] .4mg Take 1 Univers 0.4 mg 24 4-21 capsule by ity of hr capsule 00:00: mouth [place] 00 daily. [facility] estradioL 2-0 Yes [id number] 2g Insert 2 g Univers 0.01 % (0.1 4-21 into ity of mg/gram) 00:00: vagina [place] vaginal 00 weekly. Medical cream Every Branch night for 2 weeks then 3 times a week tamsulosin 2022-0 Yes [id number] .4mg Take 1 Univers 0.4 mg 24 4-21 capsule by ity of hr capsule 00:00: mouth [place] 00 daily. [facility] estradioL 2-0 Yes [id number] 2g Insert 2 g Univers 0.01 % (0.1 4-21 into ity of mg/gram) 00:00: vagina [place] vaginal 00 weekly. Medical cream Every Branch night for 2 weeks then 3 times a week tamsulosin 2-0 Yes [id number] .4mg Take 1 Univers 0.4 mg 24 4-21 capsule by ity of hr capsule 00:00: mouth [place] 00 daily. [facility] estradioL 2-0 Yes [id number] 2g Insert 2 g Univers 0.01 % (0.1 4-21 into ity of mg/gram) 00:00: vagina [place] vaginal 00 weekly. Medical cream Every Branch night for 2 weeks then 3 times a week tamsulosin 2-0 Yes [id number] .4mg Take 1 Univers 0.4 mg 24 4-21 capsule by ity of hr capsule 00:00: mouth [place] 00 daily. [facility] estradioL 2-0 Yes [id number] 2g Insert 2 g Univers 0.01 % (0.1 4-21 into ity of mg/gram) 00:00: vagina [place] vaginal 00 weekly. Medical cream Every Branch night for 2 weeks then 3 times a week tamsulosin 2-0 Yes [id number] .4mg Take 1 Univers 0.4 mg 24 4-21 capsule by ity of hr capsule 00:00: mouth [place] 00 daily. [facility] estradioL 2-0 Yes [id number] 2g Insert 2 g Univers 0.01 % (0.1 4-21 into ity of mg/gram) 00:00: vagina [place] vaginal 00 weekly. Medical cream Every Branch night for 2 weeks then 3 times a week tamsulosin 2022-0 Yes [id number] .4mg Take 1 Univers 0.4 mg 24 4-21 capsule by ity of hr capsule 00:00: mouth [place] 00 daily. [facility] estradioL 2-0 Yes [id number] 2g Insert 2 g Univers 0.01 % (0.1 4-21 into ity of mg/gram) 00:00: vagina [place] vaginal 00 weekly. Medical cream Every Branch night for 2 weeks then 3 times a week tamsulosin 2022-0 Yes [id number] .4mg Take 1 Univers 0.4 mg 24 4-21 capsule by ity of hr capsule 00:00: mouth [place] 00 daily. [facility] estradioL 2-0 Yes [id number] 2g Insert 2 g Univers 0.01 % (0.1 4-21 into ity of mg/gram) 00:00: vagina [place] vaginal 00 weekly. Medical cream Every Branch night for 2 weeks then 3 times a week tamsulosin 2-0 Yes [id number] .4mg Take 1 Univers 0.4 mg 24 4-21 capsule by ity of hr capsule 00:00: mouth [place] 00 daily. [facility] estradioL 2-0 Yes [id number] 2g Insert 2 g Univers 0.01 % (0.1 4-21 into ity of mg/gram) 00:00: vagina [place] vaginal 00 weekly. Medical cream Every Branch night for 2 weeks then 3 times a week tamsulosin 2-0 Yes [id number] .4mg Take 1 Univers 0.4 mg 24 4-21 capsule by ity of hr capsule 00:00: mouth [place] 00 daily. [facility] estradioL 2-0 Yes [id number] 2g Insert 2 g Univers 0.01 % (0.1 4-21 into ity of mg/gram) 00:00: vagina [place] vaginal 00 weekly. Medical cream Every Branch night for 2 weeks then 3 times a week tamsulosin 2-0 Yes [id number] .4mg Take 1 Univers 0.4 mg 24 4-21 capsule by ity of hr capsule 00:00: mouth [place] 00 daily. [facility] estradioL 2-0 Yes [id number] 2g Insert 2 g Univers 0.01 % (0.1 4-21 into ity of mg/gram) 00:00: vagina [place] vaginal 00 weekly. Medical cream Every Branch night for 2 weeks then 3 times a week tamsulosin 2022-0 Yes [id number] .4mg Take 1 Univers 0.4 mg 24 4-21 capsule by ity of hr capsule 00:00: mouth [place] 00 daily. [facility] estradioL 2-0 Yes [id number] 2g Insert 2 g Univers 0.01 % (0.1 4-21 into ity of mg/gram) 00:00: vagina [place] vaginal 00 weekly. Medical cream Every Branch night for 2 weeks then 3 times a week tamsulosin 2022-0 Yes [id number] .4mg Take 1 Univers 0.4 mg 24 4-21 capsule by ity of hr capsule 00:00: mouth [place] 00 daily. [facility] estradioL 2-0 Yes [id number] 2g Insert 2 g Univers 0.01 % (0.1 4-21 into ity of mg/gram) 00:00: vagina [place] vaginal 00 weekly. Medical cream Every Branch night for 2 weeks then 3 times a week tamsulosin 2-0 Yes [id number] .4mg Take 1 Univers 0.4 mg 24 4-21 capsule by ity of hr capsule 00:00: mouth [place] 00 daily. [facility] estradioL 2-0 Yes [id number] 2g Insert 2 g Univers 0.01 % (0.1 4-21 into ity of mg/gram) 00:00: vagina [place] vaginal 00 weekly. Medical cream Every Branch night for 2 weeks then 3 times a week tamsulosin 2-0 Yes [id number] .4mg Take 1 Univers 0.4 mg 24 4-21 capsule by ity of hr capsule 00:00: mouth [place] 00 daily. [facility] estradioL 2-0 Yes [id number] 2g Insert 2 g Univers 0.01 % (0.1 4-21 into ity of mg/gram) 00:00: vagina [place] vaginal 00 weekly. Medical cream Every Branch night for 2 weeks then 3 times a week tamsulosin 2-0 Yes [id number] .4mg Take 1 Univers 0.4 mg 24 4-21 capsule by ity of hr capsule 00:00: mouth [place] 00 daily. [facility] estradioL 2-0 Yes [id number] 2g Insert 2 g Univers 0.01 % (0.1 4-21 into ity of mg/gram) 00:00: vagina [place] vaginal 00 weekly. Medical cream Every Branch night for 2 weeks then 3 times a week tamsulosin 2022-0 Yes [id number] .4mg Take 1 Univers 0.4 mg 24 4-21 capsule by ity of hr capsule 00:00: mouth [place] 00 daily. [facility] estradioL 2-0 Yes [id number] 2g Insert 2 g Univers 0.01 % (0.1 4-21 into ity of mg/gram) 00:00: vagina [place] vaginal 00 weekly. Medical cream Every Branch night for 2 weeks then 3 times a week tamsulosin 2022-0 Yes [id number] .4mg Take 1 Univers 0.4 mg 24 4-21 capsule by ity of hr capsule 00:00: mouth [place] 00 daily. [facility] estradioL 2-0 Yes [id number] 2g Insert 2 g Univers 0.01 % (0.1 4-21 into ity of mg/gram) 00:00: vagina [place] vaginal 00 weekly. Medical cream Every Branch night for 2 weeks then 3 times a week tamsulosin 2022-0 Yes [id number] .4mg Take 1 Univers 0.4 mg 24 4-21 capsule by ity of hr capsule 00:00: mouth [place] 00 daily. [facility] estradioL 2-0 Yes [id number] 2g Insert 2 g Univers 0.01 % (0.1 4-21 into ity of mg/gram) 00:00: vagina [place] vaginal 00 weekly. Medical cream Every Branch night for 2 weeks then 3 times a week tamsulosin 2-0 Yes [id number] .4mg Take 1 Univers 0.4 mg 24 4-21 capsule by ity of hr capsule 00:00: mouth [place] 00 daily. [facility] estradioL 2-0 Yes [id number] 2g Insert 2 g Univers 0.01 % (0.1 4-21 into ity of mg/gram) 00:00: vagina [place] vaginal 00 weekly. Medical cream Every Branch night for 2 weeks then 3 times a week tamsulosin 2-0 Yes [id number] .4mg Take 1 Univers 0.4 mg 24 4-21 capsule by ity of hr capsule 00:00: mouth [place] 00 daily. [facility] estradioL 2-0 Yes [id number] 2g Insert 2 g Univers 0.01 % (0.1 4-21 into ity of mg/gram) 00:00: vagina [place] vaginal 00 weekly. Medical cream Every Branch night for 2 weeks then 3 times a week tamsulosin 2022-0 Yes [id number] .4mg Take 1 Univers 0.4 mg 24 4-21 capsule by ity of hr capsule 00:00: mouth [place] 00 daily. [facility] estradioL 2-0 Yes [id number] 2g Insert 2 g Univers 0.01 % (0.1 4-21 into ity of mg/gram) 00:00: vagina [place] vaginal 00 weekly. Medical cream Every Branch night for 2 weeks then 3 times a week tamsulosin 2022-0 Yes [id number] .4mg Take 1 Univers 0.4 mg 24 4-21 capsule by ity of hr capsule 00:00: mouth [place] 00 daily. [facility] estradioL 2022-0 Yes [id number] 2g Insert 2 g Univers 0.01 % (0.1 4-21 into ity of mg/gram) 00:00: [facility] 00 weekly. Medical cream Every Branch night [...] 3-30 le} 300 MG 00:00: 00 furosemide 2021-0 Yes 20mg Take 20 mg U nivers 20 mg 3-15 by mouth ity of tablet 00:00: daily. [address] furosemide 2-0 Yes 20mg Take 20 mg U nivers 20 mg 3-15 by mouth ity of tablet 00:00: daily. [address] furosemide 2-0 Yes 20mg Take 20 mg U nivers 20 mg 3-15 by mouth ity of tablet 00:00: daily. [address] furosemide 2-0 Yes 20mg Take 20 mg U nivers 20 mg 3-15 by mouth ity of tablet 00:00: daily. [address] furosemide 2-0 Yes 20mg Take 20 mg U nivers 20 mg 3-15 by mouth ity of tablet 00:00: daily. [address] furosemide 2-0 Yes 20mg Take 20 mg U nivers 20 mg 3-15 by mouth ity of tablet 00:00: daily. [place] [facility] Branch furosemide 2022-0 Yes 20mg Take 20 mg U nivers 20 mg 3-15 by mouth ity of tablet 00:00: daily. [place] [facility] furosemide 2022-0 Yes 20mg Take 20 mg U nivers 20 mg 3-15 by mouth ity of tablet 00:00: daily. [place] [facility] Branch furosemide 2022-0 Yes 20mg Take 20 mg U nivers 20 mg 3-15 by mouth ity of tablet 00:00: daily. [place] [facility] furosemide 2022-0 Yes 20mg Take 20 mg U nivers 20 mg 3-15 by mouth ity of tablet 00:00: daily. [place] [facility] furosemide 2022-0 Yes 20mg Take 20 mg U nivers 20 mg 3-15 by mouth ity of tablet 00:00: daily. [place] [facility] furosemide 2022-0 Yes 20mg Take 20 mg U nivers 20 mg 3-15 by mouth ity of tablet 00:00: daily. [place] [facility] furosemide 2022-0 Yes 20mg Take 20 mg U nivers 20 mg 3-15 by mouth ity of tablet 00:00: daily. [place] [facility] furosemide 2022-0 Yes 20mg Take 20 mg U nivers 20 mg 3-15 by mouth ity of tablet 00:00: daily. [place] [facility] furosemide 2022-0 Yes 20mg Take 20 mg U nivers 20 mg 3-15 by mouth ity of tablet 00:00: daily. [place] [facility] furosemide 2022-0 Yes 20mg Take 20 mg U nivers 20 mg 3-15 by mouth ity of tablet 00:00: daily. [place] [facility] furosemide 2022-0 Yes 20mg Take 20 mg U nivers 20 mg 3-15 by mouth ity of tablet 00:00: daily. [place] [facility] furosemide 2022-0 Yes 20mg Take 20 mg U nivers 20 mg 3-15 by mouth ity of tablet 00:00: daily. [place] [facility] Branch furosemide 2022-0 Yes 20mg Take 20 mg U nivers 20 mg 3-15 by mouth ity of tablet 00:00: daily. [place] [facility] furosemide 2022-0 Yes 20mg Take 20 mg U nivers 20 mg 3-15 by mouth ity of tablet 00:00: daily. [place] [facility] furosemide 2022-0 Yes 20mg Take 20 mg U nivers 20 mg 3-15 by mouth ity of tablet 00:00: daily. [place] [facility] Branch furosemide 2022-0 Yes 20mg Take 20 mg U nivers 20 mg 3-15 by mouth ity of tablet 00:00: daily. [place] [facility] furosemide 2022-0 Yes 20mg Take 20 mg U nivers 20 mg 3-15 by mouth ity of tablet 00:00: daily. [place] [facility] furosemide 2022-0 Yes 20mg Take 20 mg U nivers 20 mg 3-15 by mouth ity of tablet 00:00: daily. [place] [facility] furosemide 2022-0 Yes 20mg Take 20 mg U nivers 20 mg 3-15 by mouth ity of tablet 00:00: daily. [place] [facility] furosemide 2022-0 Yes 20mg Take 20 mg U nivers 20 mg 3-15 by mouth ity of tablet 00:00: daily. [place] [facility] furosemide 2022-0 Yes 20mg Take 20 mg U nivers 20 mg 3-15 by mouth ity of tablet 00:00: daily. [place] [facility] furosemide 2022-0 Yes 20mg Take 20 mg U nivers 20 mg 3-15 by mouth ity of tablet 00:00: daily. [place] [facility] furosemide 2022-0 Yes 20mg Take 20 mg U nivers 20 mg 3-15 by mouth ity of tablet 00:00: daily. [place] [facility] furosemide 2022-0 Yes 20mg Take 20 mg U nivers 20 mg 3-15 by mouth ity of tablet 00:00: daily. [place] [facility] furosemide 2022-0 Yes 20mg Take 20 mg U nivers 20 mg 3-15 by mouth ity of tablet 00:00: daily. [place] [facility] foLIC acid 2-0 Yes 1mg Take 1 mg Un concepción 1 mg tablet 3-14 by mouth ity of 00:00: daily. [place] [facility] foLIC acid 2022-0 Yes 1mg Take 1 mg Un concepción 1 mg tablet 3-14 by mouth ity of 00:00: daily. [place] [facility] foLIC acid 2022-0 Yes 1mg Take [...] 3-14 by mouth ity of 00:00: daily. [place] [facility] foLIC acid 2022-0 Yes 1mg Take 1 mg Un concepción 1 mg tablet 3-14 by mouth ity of 00:00: daily. [place] [facility] foLIC acid 2022-0 Yes 1mg Take 1 mg Un concepción 1 mg tablet 3-14 by mouth ity of 00:00: daily. [place] [facility] foLIC acid 2022-0 Yes 1mg Take 1 mg Un concepción 1 mg tablet 3-14 by mouth ity of 00:00: daily. [place] [facility] foLIC acid 2022-0 Yes 1mg Take 1 mg Un concepción 1 mg tablet 3-14 by mouth ity of 00:00: daily. [place] [facility] foLIC acid 2022-0 Yes 1mg Take 1 mg Un concepción 1 mg tablet 3-14 by mouth ity of 00:00: daily. [place] [facility] foLIC acid 2022-0 Yes 1mg Take 1 mg Un concepción 1 mg tablet 3-14 by mouth ity of 00:00: daily. [facility] foLIC acid 2022-0 Yes 1mg Take 1 mg Un concepción 1 mg tablet 3-14 by mouth ity of 00:00: daily. [facility] foLIC acid 2022-0 Yes 1mg Take 1 mg Un concepción 1 mg tablet 3-14 by mouth ity of 00:00: daily. [facility] foLIC acid 2022-0 Yes 1mg Take 1 mg Un concepción 1 mg tablet 3-14 by mouth ity of 00:00: daily. [facility] foLIC acid 2022-0 Yes 1mg Take 1 mg Un concepción 1 mg tablet 3-14 by mouth ity of 00:00: daily. [facility] foLIC acid 2022-0 Yes 1mg Take 1 mg Un concepción 1 mg tablet 3-14 by mouth ity of 00:00: daily. [facility] foLIC acid 2022-0 Yes 1mg Take 1 mg Un concepción 1 mg tablet 3-14 by mouth ity of 00:00: daily. [facility] foLIC acid 2022-0 Yes 1mg Take 1 mg Un concepción 1 mg tablet 3-14 by mouth ity of 00:00: daily. [facility] foLIC acid 2022-0 Yes 1mg Take 1 mg Un concepción 1 mg tablet 3-14 by mouth ity of 00:00: daily. [facility] foLIC acid 2022-0 Yes 1mg Take 1 mg Un concepción 1 mg tablet 3-14 by mouth ity of 00:00: daily. [facility] foLIC acid 2022-0 Yes 1mg Take 1 mg Un concepción 1 mg tablet 3-14 by mouth ity of 00:00: daily. [facility] foLIC acid 2022-0 Yes 1mg Take 1 mg Un concepción 1 mg tablet 3-14 by mouth ity of 00:00: daily. [facility] foLIC acid 2022-0 Yes 1mg Take 1 mg Un concepción 1 mg tablet 3-14 by mouth ity of 00:00: daily. [facility] foLIC acid 2022-0 Yes 1mg Take 1 mg Un concepción 1 mg tablet 3-14 by mouth ity of 00:00: daily. [facility] foLIC acid 2022-0 Yes 1mg Take 1 mg Un concepción 1 mg tablet 3-14 by mouth ity of 00:00: daily. [facility] foLIC acid 2022-0 Yes 1mg Take 1 mg Un concepción 1 mg tablet 3-14 by mouth ity of 00:00: daily. [facility] foLIC acid 2022-0 Yes 1mg Take 1 mg Un concepción 1 mg tablet 3-14 by mouth ity of 00:00: daily. [facility] foLIC acid 2022-0 Yes 1mg Take 1 mg Un concepción 1 mg tablet 3-14 by mouth ity of 00:00: daily. [facility] foLIC acid 2022-0 Yes 1mg Take 1 mg Un concepción 1 mg tablet 3-14 by mouth ity of 00:00: daily. [place] [facility] Bactrim DS Bactrim DS 2-0 2- No 1{table BID Bactrim DS 800-160 MG [...] MG 00:00: 00 BD VEO 2020-02 Yes [id number] USE [facility] INSULIN 0-04 DIRECTED 4 ity of SYR, HALF 00:00: TIMES [place] UNIT, 0.3 00 DAILY Medical mL 31 gauge Branch x 15/64" Syrg BD VEO 2020-02 Yes [id number] USE [facility] INSULIN 0-04 DIRECTED 4 ity of SYR, HALF 00:00: TIMES [place] UNIT, 0.3 00 DAILY Medical mL 31 gauge Branch x 15/64" Syrg BD VEO 2020-02 Yes [id number] USE [facility] INSULIN 0-04 DIRECTED 4 ity of SYR, HALF 00:00: TIMES [place] UNIT, 0.3 00 DAILY Medical mL 31 gauge Branch x 15/64" Syrg BD VEO 2020-02 Yes [id number] USE [facility] INSULIN 0-04 DIRECTED 4 ity of SYR, HALF 00:00: TIMES [place] UNIT, 0.3 00 DAILY Medical mL 31 gauge Branch x 15/64" Syrg BD VEO 2020-02 Yes [id number] USE [facility] INSULIN 0-04 DIRECTED 4 ity of SYR, HALF 00:00: TIMES [place] UNIT, 0.3 00 DAILY Medical mL 31 gauge Branch x 15/64" Syrg BD VEO 2020-02 Yes [id number] USE [facility] INSULIN 0-04 DIRECTED 4 ity of SYR, HALF 00:00: TIMES [place] UNIT, 0.3 00 DAILY Medical mL 31 gauge Branch x 15/64" Syrg BD VEO 2020-02 Yes [id number] USE [facility] INSULIN 0-04 DIRECTED 4 ity of SYR, HALF 00:00: TIMES [place] UNIT, 0.3 00 DAILY Medical mL 31 gauge Branch x 15/64" Syrg BD VEO 2020-02 Yes [id number] USE [facility] INSULIN 0-04 DIRECTED 4 ity of SYR, HALF 00:00: TIMES [place] UNIT, 0.3 00 DAILY Medical mL 31 gauge Branch x 15/64" Syrg BD VEO 2020-02 Yes [id number] USE [facility] INSULIN 0-04 DIRECTED 4 ity of SYR, HALF 00:00: TIMES [place] UNIT, 0.3 00 DAILY Medical mL 31 gauge Branch x 15/64" Syrg BD VEO 2020-02 Yes [id number] USE [facility] INSULIN 0-04 DIRECTED 4 ity of SYR, HALF 00:00: TIMES [place] UNIT, 0.3 00 DAILY Medical mL 31 gauge Branch x 15/64" Syrg BD VEO 2020-02 Yes [id number] USE [facility] INSULIN 0-04 DIRECTED 4 ity of SYR, HALF 00:00: TIMES [place] UNIT, 0.3 00 DAILY Medical mL 31 gauge Branch x 15/64" Syrg BD VEO 2020-02 Yes [id number] USE [facility] INSULIN 0-04 DIRECTED 4 ity of SYR, HALF 00:00: TIMES [place] UNIT, 0.3 00 DAILY Medical mL 31 gauge Branch x 15/64" Syrg BD VEO 2020-02 Yes [id number] USE [facility] INSULIN 0-04 DIRECTED 4 ity of SYR, HALF 00:00: TIMES [place] UNIT, 0.3 00 DAILY Medical mL 31 gauge Branch x 15/64" Syrg BD VEO 2020-02 Yes [id number] USE [facility] INSULIN 0-04 DIRECTED 4 ity of SYR, HALF 00:00: TIMES [place] UNIT, 0.3 00 DAILY Medical mL 31 gauge Branch x 15/64" Syrg BD VEO 2020-02 Yes [id number] USE [facility] INSULIN 0-04 DIRECTED 4 ity of SYR, HALF 00:00: TIMES [place] UNIT, 0.3 00 DAILY Medical mL 31 gauge Branch x 15/64" Syrg BD VEO 2020-02 Yes [id number] USE [facility] INSULIN 0-04 DIRECTED 4 ity of SYR, HALF 00:00: TIMES [place] UNIT, 0.3 00 DAILY Medical mL 31 gauge Branch x 15/64" Syrg BD VEO 2020-02 Yes [id number] USE [facility] INSULIN 0-04 DIRECTED 4 ity of SYR, HALF 00:00: TIMES [place] UNIT, 0.3 00 DAILY Medical mL 31 gauge Branch x 15/64" Syrg BD VEO 2020-02 Yes [id number] USE [facility] INSULIN 0-04 DIRECTED 4 ity of SYR, HALF 00:00: TIMES [place] UNIT, 0.3 00 DAILY Medical mL 31 gauge Branch x 15/64" Syrg BD VEO 2020-02 Yes [id number] USE [facility] INSULIN 0-04 DIRECTED 4 ity of SYR, HALF 00:00: TIMES [place] UNIT, 0.3 00 DAILY Medical mL 31 gauge Branch x 15/64" Syrg BD VEO 2020-02 Yes [id number] USE [facility] INSULIN 0-04 DIRECTED 4 ity of SYR, HALF 00:00: TIMES [place] UNIT, 0.3 00 DAILY Medical mL 31 gauge Branch x 15/64" Syrg BD VEO 2020-02 Yes [id number] USE [facility] INSULIN 0-04 DIRECTED 4 ity of SYR, HALF 00:00: TIMES [place] UNIT, 0.3 00 DAILY Medical mL 31 gauge Branch x 15/64" Syrg BD VEO 2020-02 Yes [id number] USE [facility] INSULIN 0-04 DIRECTED 4 ity of SYR, HALF 00:00: TIMES [place] UNIT, 0.3 00 DAILY Medical mL 31 gauge Branch x 15/64" Syrg BD VEO 2020-02 Yes [id number] USE [facility] INSULIN 0-04 DIRECTED 4 ity of SYR, HALF 00:00: TIMES [place] UNIT, 0.3 00 DAILY Medical mL 31 gauge Branch x 15/64" Syrg BD VEO 2020-02 Yes [id number] USE [facility] INSULIN 0-04 DIRECTED 4 ity of SYR, HALF 00:00: TIMES [place] UNIT, 0.3 00 DAILY Medical mL 31 gauge Branch x 15/64" Syrg BD VEO 2020-02 Yes [id number] USE [facility] INSULIN 0-04 DIRECTED 4 ity of SYR, HALF 00:00: TIMES [place] UNIT, 0.3 00 DAILY Medical mL 31 gauge Branch x 15/64" Syrg BD VEO 2020-02 Yes [id number] USE [facility] INSULIN 0-04 DIRECTED 4 ity of SYR, HALF 00:00: TIMES [place] UNIT, 0.3 00 DAILY Medical mL 31 gauge Branch x 15/64" Syrg BD VEO 2020-02 Yes [id number] USE [facility] INSULIN 0-04 DIRECTED 4 ity of SYR, HALF 00:00: TIMES [place] UNIT, 0.3 00 DAILY Medical mL 31 gauge Branch x 15/64" Syrg BD VEO 2020-02 Yes [id number] USE [facility] INSULIN 0-04 DIRECTED 4 ity of SYR, HALF 00:00: TIMES [place] UNIT, 0.3 00 DAILY Medical mL 31 gauge Branch x 15/64" Syrg BD VEO 2020-02 Yes [id number] USE [facility] INSULIN 0-04 DIRECTED 4 ity of SYR, HALF 00:00: TIMES [place] UNIT, 0.3 00 DAILY Medical mL 31 gauge Branch x 15/64" Syrg BD VEO 2020-02 Yes [id number] USE [facility] INSULIN 0-04 DIRECTED 4 ity of SYR, HALF 00:00: TIMES [place] UNIT, 0.3 00 DAILY Medical mL 31 gauge Branch x 15/64" Syrg BD VEO 2020-02 Yes [id number] USE [facility] INSULIN 0-04 DIRECTED 4 ity of SYR, HALF 00:00: TIMES [place] UNIT, 0.3 00 DAILY Medical mL 31 gauge Branch x 15/64" Syrg BD VEO 2020-0 Yes [id number] USE [facility] INSULIN 8-19 DIRECTED 4 ity of SYRINGE UF 00:00: TIMES [place] 0.3 mL 31 00 DAILY Medical gauge x Branch 15/64" Syrg BD VEO 2020-0 Yes [id number] USE [facility] INSULIN 8-19 DIRECTED 4 ity of SYRINGE UF 00:00: TIMES [place] 0.3 mL 31 00 DAILY Medical gauge x Branch 15/64" Syrg BD VEO 2020-0 Yes [id number] USE [facility] INSULIN 8-19 DIRECTED 4 ity of SYRINGE UF 00:00: TIMES [place] 0.3 mL DAILY Medical gauge x Branch 15/64" Syrg BD VEO 2020-0 Yes [id number] USE [facility] INSULIN 8-19 DIRECTED 4 ity of SYRINGE UF 00:00: TIMES [place] 0.3 mL DAILY Medical gauge x Branch 15/64" Syrg BD VEO 2020-0 Yes [id number] USE [facility] INSULIN 8-19 DIRECTED 4 ity of SYRINGE UF 00:00: TIMES [place] 0.3 mL DAILY Medical gauge x Branch 15/64" Syrg BD VEO 2020-0 Yes [id number] USE [facility] ers INSULIN 8-19 DIRECTED 4 ity of SYRINGE UF 00:00: TIMES [place] 0.3 mL DAILY Medical gauge x Branch 15/64" Syrg BD VEO 2020-0 Yes [id number] USE [facility] INSULIN 8-19 DIRECTED 4 ity of SYRINGE UF 00:00: TIMES [place] 0.3 mL DAILY Medical gauge x Branch 15/64" Syrg BD VEO 2020-0 Yes [id number] USE [facility] INSULIN 8-19 DIRECTED 4 ity of SYRINGE UF 00:00: TIMES [place] 0.3 mL DAILY Medical gauge x Branch 15/64" Syrg BD VEO 2020-0 Yes [id number] USE [facility] INSULIN 8-19 DIRECTED 4 ity of SYRINGE UF 00:00: TIMES [place] 0.3 mL DAILY Medical gauge x Branch 15/64" Syrg BD VEO 2020-0 Yes [id number] USE [facility] INSULIN 8-19 DIRECTED 4 ity of SYRINGE UF 00:00: TIMES [place] 0.3 mL DAILY Medical gauge x Branch 15/64" Syrg BD VEO 2020-0 Yes [id number] USE [facility] INSULIN 8-19 DIRECTED 4 ity of SYRINGE UF 00:00: TIMES [place] 0.3 mL 31 DAILY Medical gauge x Branch 15/64" Syrg BD VEO 2020-0 Yes [id number] USE [facility] INSULIN 8-19 DIRECTED 4 ity of SYRINGE UF 00:00: TIMES [place] 0.3 mL 31 DAILY Medical gauge x Branch 15/64" Syrg BD VEO 2020-0 Yes [id number] USE [facility] INSULIN 8-19 DIRECTED 4 ity of SYRINGE UF 00:00: TIMES [place] 0.3 mL 31 DAILY Medical gauge x Branch 15/64" Syrg BD VEO 2020-0 Yes [id number] USE [facility] ers INSULIN 8-19 DIRECTED 4 ity of SYRINGE UF 00:00: TIMES [place] 0.3 mL 31 DAILY Medical gauge x Branch 15/64" Syrg BD VEO 2020-0 Yes [id number] USE [facility] INSULIN 8-19 DIRECTED 4 ity of SYRINGE UF 00:00: TIMES [place] 0.3 mL DAILY Medical gauge x Branch 15/64" Syrg BD VEO 2020-0 Yes [id number] USE [facility] INSULIN 8-19 DIRECTED 4 ity of SYRINGE UF 00:00: TIMES [place] 0.3 mL DAILY Medical gauge x Branch 15/64" Syrg BD VEO 2020-0 Yes [id number] USE [facility] INSULIN 8-19 DIRECTED 4 ity of SYRINGE UF 00:00: TIMES [place] 0.3 mL DAILY Medical gauge x Branch 15/64" Syrg BD VEO 2020-0 Yes [id number] USE [facility] INSULIN 8-19 DIRECTED 4 ity of SYRINGE UF 00:00: TIMES [place] 0.3 mL DAILY Medical gauge x Branch 15/64" Syrg BD VEO 2020-0 Yes [id number] USE [facility] INSULIN 8-19 DIRECTED 4 ity of SYRINGE UF 00:00: TIMES [place] 0.3 mL 31 DAILY Medical gauge x Branch 15/64" Syrg BD VEO 2020-0 Yes [id number] USE [facility] INSULIN 8-19 DIRECTED 4 ity of S[place]INGE UF 00:00: TIMES [place] 0.3 mL DAILY Medical gauge x Branch 15/64" Syrg BD VEO 2020-0 Yes [id number] USE [facility] INSULIN 8-19 DIRECTED 4 ity of SYRINGE UF 00:00: TIMES [place] 0.3 mL 31 DAILY Medical gauge x Branch 15/64" Syrg BD VEO 2020-0 Yes [id number] USE [facility] INSULIN 8-19 DIRECTED 4 ity of S[place]INGE UF 00:00: TIMES [place] 0.3 mL 31 DAILY Medical gauge x Branch 15/64" Syrg BD VEO 2020-0 Yes [id number] USE [facility] INSULIN 8-19 DIRECTED 4 ity of [place]ING[place] UF 00:00: TIMES [place] 0.3 mL DAILY Medical gauge x Branch 15/64" Syrg BD VEO 2020-0 Yes [id number] USE [facility] INSULIN 8-19 DIRECTED 4 ity of SYRINGE UF 00:00: TIMES [place] 0.3 mL DAILY Medical gauge x Branch 15/64" Syrg BD VEO 2020-0 Yes [id number] USE [facility] INSULIN 8-19 DIRECTED 4 ity of S[place]INGE UF 00:00: TIMES [place] 0.3 mL DAILY Medical gauge x Branch 15/64" Syrg BD VEO 2020-0 Yes [id number] USE [facility] INSULIN 8-19 DIRECTED 4 ity of [place]ING[place] UF 00:00: TIMES [place] 0.3 mL DAILY Medical gauge x Branch 15/64" Syrg BD VEO 2020-0 Yes [id number] USE [facility] INSULIN 8- DIRECTED 4 ity of [place]ING[place] UF 00:00: TIMES [place] 0.3 mL DAILY Medical gauge x Branch 15/64" Syrg BD VEO 2020-0 Yes [id number] USE [facility] INSULIN 8-19 DIRECTED 4 ity of [place]INGE UF 00:00: TIMES [place] 0.3 mL DAILY Medical gauge x Branch 15/64" Syrg BD VEO 2020-0 Yes [id number] USE [facility] INSULIN 8-19 DIRECTED 4 ity of S[place]INGE UF 00:00: TIMES [place] 0.3 mL DAILY Medical gauge x Branch 15/64" Syrg BD VEO 2020-0 Yes [id number] USE [facility] INSULIN 8-19 DIRECTED 4 ity of [place]ING[place] UF 00:00: TIMES [place] 0.3 mL DAILY Medical gauge x Branch 15/64" Syrg BD VEO 2020-0 Yes [id number] USE [facility] INSULIN 8-19 DIRECTED 4 ity of [place]ING[place] UF 00:00: TIMES [place] 0.3 mL 31 DAILY Medical gauge x Branch 15/64" Syrg EUTHYROX 2020-0 Yes [id number] TAKE 1 Un concepción 125 mcg 7-30 TABLET BY ity of tablet 00:00: MOUTH ONCE 00 DAILY IN Medical THE Branch MORNING EUTHYROX 2020-0 Yes [id number] TAKE 1 Un concepción 125 mcg 7-30 TABLET BY ity of tablet 00:00: MOUTH ONCE 00 DAILY IN [facility] MORNING EUTHYROX 2020-0 Yes [id number] TAKE 1 Un concepción 125 mcg 7-30 TABLET BY ity of tablet 00:00: MOUTH ONCE [place] 00 DAILY IN [facility] MORNING EUTHYROX 2020-0 Yes [id number] TAKE 1 Un concepción 125 mcg 7-30 TABLET BY ity of tablet 00:00: MOUTH ONCE [place] 00 DAILY IN [facility] MORNING EUTHYROX 2020-0 Yes [id number] TAKE 1 Un concepción 125 mcg 7-30 TABLET BY ity of tablet 00:00: MOUTH ONCE [place] 00 DAILY IN [facility] MORNING EUTHYROX 2020-0 Yes [id number] TAKE 1 Un concepción 125 mcg 7-30 TABLET BY ity of tablet 00:00: MOUTH ONCE [place] 00 DAILY IN [facility] MORNING EUTHYROX 2020-0 Yes [id number] TAKE 1 Un concepción 125 mcg 7-30 TABLET BY ity of tablet 00:00: MOUTH ONCE [place] 00 DAILY IN [facility] MORNING EUTHYROX 2020-0 Yes [id number] TAKE 1 Un concepción 125 mcg 7-30 TABLET BY ity of tablet 00:00: MOUTH ONCE [place] 00 DAILY IN [facility] MORNING EUTHYROX 2020-0 Yes [id number] TAKE 1 Un concepción 125 mcg 7-30 TABLET BY ity of tablet 00:00: MOUTH ONCE [place] 00 DAILY IN [facility] MORNING EUTHYROX 2020-0 Yes [id number] TAKE 1 Un concepción 125 mcg 7-30 TABLET BY ity of tablet 00:00: MOUTH ONCE [place] 00 DAILY IN [facility] MORNING EUTHYROX 2020-0 Yes [id number] TAKE 1 Un concepción 125 mcg 7-30 TABLET BY ity of tablet 00:00: MOUTH ONCE [place] 00 DAILY IN [facility] MORNING EUTHYROX 2020-0 Yes [id number] TAKE 1 Un concepción 125 mcg 7-30 TABLET BY ity of tablet 00:00: MOUTH ONCE [place] 00 DAILY IN [facility] MORNING EUTHYROX 2020-0 Yes [id number] TAKE 1 Un concepción 125 mcg 7-30 TABLET BY ity of tablet 00:00: MOUTH ONCE [place] 00 DAILY IN [facility] MORNING EUTHYROX 2020-0 Yes [id number] TAKE 1 Un concepción 125 mcg 7-30 TABLET BY ity of tablet 00:00: MOUTH ONCE [place] 00 DAILY IN [facility] MORNING EUTHYROX 2020-0 Yes [id number] TAKE 1 Un concepción 125 mcg 7-30 TABLET BY ity of tablet 00:00: MOUTH ONCE [place] 00 DAILY IN [facility] MORNING EUTHYROX 2020-0 Yes [id number] TAKE 1 Un concepción 125 mcg 7-30 TABLET BY ity of tablet 00:00: MOUTH ONCE [place] 00 DAILY IN [facility] MORNING EUTHYROX 2020-0 Yes [id number] TAKE 1 Un concepción 125 mcg 7-30 TABLET BY ity of tablet 00:00: MOUTH ONCE [place] 00 DAILY IN [facility] MORNING EUTHYROX 2020-0 Yes [id number] TAKE 1 Un concepción 125 mcg 7-30 TABLET BY ity of tablet 00:00: MOUTH ONCE [place] 00 DAILY IN [facility] MORNING EUTHYROX 2020-0 Yes [id number] TAKE 1 Un concepción 125 mcg 7-30 TABLET BY ity of tablet 00:00: MOUTH ONCE [place] 00 DAILY IN [facility] MORNING EUTHYROX 2020-0 Yes [id number] TAKE 1 Un concepción 125 mcg 7-30 TABLET BY ity of tablet 00:00: MOUTH ONCE [place] 00 DAILY IN [facility] MORNING EUTHYROX 2020-0 Yes [id number] TAKE 1 Un concepción 125 mcg 7-30 TABLET BY ity of tablet 00:00: MOUTH ONCE [place] 00 DAILY IN [facility] MORNING EUTHYROX 2020-0 Yes [id number] TAKE 1 Un concepción 125 mcg 7-30 TABLET BY ity of tablet 00:00: MOUTH ONCE [place] 00 DAILY IN [facility] MORNING EUTHYROX 2020-0 Yes [id number] TAKE 1 Un concepción 125 mcg 7-30 TABLET BY ity of tablet 00:00: MOUTH ONCE [place] 00 DAILY IN [facility] MORNING EUTHYROX 2020-0 Yes [id number] TAKE 1 Un concepción 125 mcg 7-30 TABLET BY ity of tablet 00:00: MOUTH ONCE [place] 00 DAILY IN [facility] MORNING EUTHYROX 2020-0 Yes [id number] TAKE 1 Un concepción 125 mcg 7-30 TABLET BY ity of tablet 00:00: MOUTH ONCE [place] 00 DAILY IN [facility] MORNING EUTHYROX 2020-0 Yes [id number] TAKE 1 Un concepción 125 mcg 7-30 TABLET BY ity of tablet 00:00: MOUTH ONCE [place] 00 DAILY IN [facility] MORNING EUTHYROX 2020-0 Yes [id number] TAKE 1 Un concepción 125 mcg 7-30 TABLET BY ity of tablet 00:00: MOUTH ONCE [place] 00 DAILY IN [facility] THE Branch MORNING EUTHYROX 2020-0 Yes [id number] TAKE 1 Un concepción 125 mcg 7-30 TABLET BY ity of tablet 00:00: MOUTH ONCE [place] 00 DAILY IN [facility] THE Branch MORNING EUTHYROX 2020-0 Yes [id number] TAKE 1 Un concepción 125 mcg 7-30 TABLET BY ity of tablet 00:00: MOUTH ONCE [place] 00 DAILY IN [facility] THE Branch MORNING EUTHYROX 2020-0 Yes [id number] TAKE 1 Un concepción 125 mcg 7-30 TABLET BY ity of tablet 00:00: MOUTH ONCE [place] 00 DAILY IN [facility] [place] MORNING EUTHYROX 2020-0 Yes [id number] TAKE 1 Un concepción 125 mcg 7-30 TABLET BY ity of tablet 00:00: MOUTH ONCE [place] 00 DAILY IN [facility] [place] MORNING PREGABALIN 2020-0 Yes [id number] Take 1 Univers 300 mg 6-05 capsule by ity of capsule 00:00: mouth [place] 00 twice Medical daily Branch PREGABALIN 2020-0 Yes [id number] Take 1 Univers 300 mg 6-05 capsule by ity of capsule 00:00: mouth [place] 00 twice Medical daily Branch PREGABALIN 2020-0 Yes [id number] Take 1 Univers 300 mg 6-05 capsule by ity of capsule 00:00: mouth [place] 00 twice Medical daily Branch PREGABALIN 2020-0 Yes [id number] Take 1 Univers 300 mg 6-05 capsule by ity of capsule 00:00: mouth [place] 00 twice Medical daily Branch PREGABALIN 2020-0 Yes [id number] Take 1 Univers 300 mg 6-05 capsule by ity of capsule 00:00: mouth [place] 00 twice Medical daily Branch PREGABALIN 2020-0 Yes [id number] Take 1 Univers 300 mg 6-05 capsule by ity of capsule 00:00: mouth [place] 00 twice Medical daily Branch PREGABALIN 2020-0 Yes [id number] Take 1 Univers 300 mg 6-05 capsule by ity of capsule 00:00: mouth [place] 00 twice Medical daily Branch PREGABALIN 2020-0 Yes [id number] Take 1 Univers 300 mg 6-05 capsule by ity of capsule 00:00: mouth [place] 00 twice Medical daily Branch PREGABALIN 2020-0 Yes [id number] Take 1 Univers 300 mg 6-05 capsule by ity of capsule 00:00: mouth twice Medical daily Branch PREGABALIN 2020-0 Yes [id number] Take 1 [facility] 300 mg 6-05 capsule by ity of capsule 00:00: mouth twice Medical daily Branch PREGABALIN 2020-0 Yes [id number] Take 1 [facility] 300 mg 6-05 capsule by ity of capsule 00:00: mouth twice Medical daily Branch PREGABALIN 2020-0 Yes [id number] Take 1 Univers 300 mg 6-05 capsule by ity of capsule 00:00: mouth twice Medical daily Branch PREGABALIN 2020-0 Yes [id number] Take 1 [facility] 300 mg 6-05 capsule by ity of capsule 00:00: mouth twice Medical daily Branch PREGABALIN 2020-0 Yes [id number] Take 1 [facility] 300 mg 6-05 capsule by ity of capsule 00:00: mouth twice Medical daily Branch PREGABALIN 2020-0 Yes [id number] Take 1 Univers 300 mg 6-05 capsule by ity of capsule 00:00: mouth twice Medical daily Branch PREGABALIN 2020-0 Yes [id number] Take 1 [facility] 300 mg 6-05 capsule by ity of capsule 00:00: mouth twice Medical daily Branch PREGABALIN 2020-0 Yes [id number] Take 1 [facility] 300 mg 6-05 capsule by ity of capsule 00:00: mouth twice Medical daily Branch PREGABALIN 2020-0 Yes [id number] Take 1 [facility] 300 mg 6-05 capsule by ity of capsule 00:00: mouth twice Medical daily Branch PREGABALIN 2020-0 Yes [id number] Take 1 [facility] 300 mg 6-05 capsule by ity of capsule 00:00: mouth twice Medical daily Branch PREGABALIN 2020-0 Yes [id number] Take 1 [facility] 300 mg 6-05 capsule by ity of capsule 00:00: mouth twice Medical daily Branch PREGABALIN 2020-0 Yes [id number] Take 1 [facility] 300 mg 6-05 capsule by ity of capsule 00:00: mouth twice Medical daily Branch PREGABALIN 2020-0 Yes [id number] Take 1 Univers 300 mg 6-05 capsule by ity of capsule 00:00: mouth twice Medical daily Branch PREGABALIN 2020-0 Yes [id number] Take 1 Univers 300 mg 6-05 capsule by ity of capsule 00:00: mouth 00 twice Medical daily Branch PREGABALIN 2020-0 Yes [id number] Take 1 Univers 300 mg 6-05 capsule by ity of capsule 00:00: mouth 00 twice Medical daily Branch PREGABALIN 2020-0 Yes [id number] Take 1 Univers 300 mg 6-05 capsule by ity of capsule 00:00: mouth 00 twice Medical daily Branch PREGABALIN 2020-0 Yes [id number] Take 1 Univers 300 mg 6-05 capsule by ity of capsule 00:00: mouth 00 twice Medical daily Branch PREGABALIN 2020-0 Yes [id number] Take 1 [facility] 300 mg 6-05 capsule by ity of capsule 00:00: mouth 00 twice Medical daily Branch PREGABALIN 2020-0 Yes [id number] Take 1 [facility] 300 mg 6-05 capsule by ity of capsule 00:00: mouth twice Medical daily Branch PREGABALIN 2020-0 Yes [id number] Take 1 [facility] 300 mg 6-05 capsule by ity of capsule 00:00: mouth twice Medical daily Branch PREGABALIN 2020-0 Yes [id number] Take 1 [facility] 300 mg 6-05 capsule by ity of capsule 00:00: mouth 00 twice Medical daily Branch PREGABALIN 2020-0 Yes [id number] Take 1 [facility] 300 mg 6-05 capsule by ity of capsule 00:00: mouth twice Medical daily Branch METFORMIN 2020-0 Yes [id number] TAKE 1 U nivers 1,000 mg 3-19 TABLET BY ity of tablet 00:00: MOUTH TWICE Medical DAILY WITH Branch MEALS FOR DIABETES METFORMIN 2020-0 Yes [id number] TAKE 1 U nivers 1,000 mg 3-19 TABLET BY ity of tablet 00:00: MOUTH 00 TWICE Medical DAILY WITH Branch MEALS FOR DIABETES METFORMIN 2020-0 Yes [id number] TAKE 1 U nivers 1,000 mg 3-19 TABLET BY ity of tablet 00:00: MOUTH 00 TWICE Medical DAILY WITH Branch MEALS FOR DIABETES METFORMIN 2020-0 Yes [id number] TAKE 1 U nivers 1,000 mg 3-19 TABLET BY ity of tablet 00:00: MOUTH 00 TWICE Medical DAILY WITH Branch MEALS FOR DIABETES METFORMIN 2020-0 Yes [id number] TAKE 1 U nivers 1,000 mg 3-19 TABLET BY ity of tablet 00:00: MOUTH 00 TWICE Medical DAILY WITH Branch MEALS FOR DIABETES METFORMIN 2020-0 Yes [id number] TAKE 1 U nivers 1,000 mg 3-19 TABLET BY ity of tablet 00:00: MOUTH 00 TWICE Medical DAILY WITH Branch MEALS FOR DIABETES METFORMIN 2020-0 Yes [id number] TAKE 1 U nivers 1,000 mg 3-19 TABLET BY ity of tablet 00:00: MOUTH 00 TWICE Medical DAILY WITH Branch MEALS FOR DIABETES METFORMIN 2020-0 Yes [id number] TAKE 1 U nivers 1,000 mg 3-19 TABLET BY ity of tablet 00:00: MOUTH 00 TWICE Medical DAILY WITH Branch MEALS FOR DIABETES METFORMIN 2020-0 Yes [id number] TAKE 1 U nivers 1,000 mg 3-19 TABLET BY ity of tablet 00:00: MOUTH 00 TWICE Medical DAILY WITH Branch MEALS FOR DIABETES METFORMIN 2020-0 Yes [id number] TAKE 1 U nivers 1,000 mg 3-19 TABLET BY ity of tablet 00:00: MOUTH 00 TWICE Medical DAILY WITH Branch MEALS FOR DIABETES METFORMIN 2020-0 Yes [id number] TAKE 1 U nivers 1,000 mg 3-19 TABLET BY ity of tablet 00:00: MOUTH 00 TWICE Medical DAILY WITH Branch MEALS FOR DIABETES METFORMIN 2020-0 Yes [id number] TAKE 1 U nivers 1,000 mg 3-19 TABLET BY ity of tablet 00:00: MOUTH 00 TWICE Medical DAILY WITH Branch MEALS FOR DIABETES METFORMIN 2020-0 Yes [id number] TAKE 1 U nivers 1,000 mg 3-19 TABLET BY ity of tablet 00:00: MOUTH 00 TWICE Medical DAILY WITH Branch MEALS FOR DIABETES METFORMIN 2020-0 Yes [id number] TAKE 1 U nivers 1,000 mg 3-19 TABLET BY ity of tablet 00:00: MOUTH 00 TWICE Medical DAILY WITH Branch MEALS FOR DIABETES METFORMIN 2020-0 Yes [id number] TAKE 1 U nivers 1,000 mg 3-19 TABLET BY ity of tablet 00:00: MOUTH 00 TWICE Medical DAILY WITH Branch MEALS FOR DIABETES METFORMIN 2020-0 Yes [id number] TAKE 1 U nivers 1,000 mg 3-19 TABLET BY ity of tablet 00:00: MOUTH 00 TWICE Medical DAILY WITH Branch MEALS FOR DIABETES METFORMIN 2020-0 Yes [id number] TAKE 1 U nivers 1,000 mg 3-19 TABLET BY ity of tablet 00:00: MOUTH 00 TWICE Medical DAILY WITH Branch MEALS FOR DIABETES METFORMIN 2020-0 Yes [id number] TAKE 1 U nivers 1,000 mg 3-19 TABLET BY ity of tablet 00:00: MOUTH 00 TWICE Medical DAILY WITH Branch MEALS FOR DIABETES METFORMIN 2020-0 Yes [id number] TAKE 1 U nivers 1,000 mg 3-19 TABLET BY ity of tablet 00:00: MOUTH 00 TWICE Medical DAILY WITH Branch MEALS FOR DIABETES METFORMIN 2020-0 Yes [id number] TAKE 1 [facility] n[facility] 1,000 mg 3-19 TABLET BY [facility] tablet 00:00: MOUTH 00 TWICE Medical DAILY WITH Branch MEALS FOR DIABETES METFORMIN 2020-0 Yes [id number] TAKE 1 [facility] n[facility] 1,000 mg 3-19 TABLET BY [facility] tablet 00:00: MOUTH 00 TWICE Medical DAILY WITH Branch MEALS FOR DIABETES METFORMIN 2020-0 Yes [id number] TAKE 1 [facility] 1,000 mg 3-19 TABLET BY [facility] tablet 00:00: MOUTH 00 TWICE Medical DAILY WITH Branch MEALS FOR DIABETES METFORMIN 2020-0 Yes [id number] TAKE 1 [facility] 1,000 mg 3-19 TABLET BY [facility] tablet 00:00: MOUTH 00 TWICE Medical DAILY WITH Branch MEALS FOR DIABETES METFORMIN 2020-0 Yes [id number] TAKE 1 [facility] 1,000 mg 3-19 TABLET BY [facility] tablet 00:00: MOUTH 00 TWICE Medical DAILY WITH Branch MEALS FOR DIABETES METFORMIN 2020-0 Yes [id number] TAKE 1 [facility] 1,000 mg 3-19 TABLET BY [facility] tablet 00:00: MOUTH 00 TWICE Medical DAILY WITH Branch MEALS FOR DIABETES METFORMIN 2020-0 Yes [id number] TAKE 1 [facility] 1,000 mg 3-19 TABLET BY [facility] tablet 00:00: MOUTH 00 TWICE Medical DAILY WITH Branch MEALS FOR DIABETES METFORMIN 2020-0 Yes [id number] TAKE 1 [facility] 1,000 mg 3-19 TABLET BY [facility] tablet 00:00: MOUTH 00 TWICE Medical DAILY WITH Branch MEALS FOR DIABETES METFORMIN 2020-0 Yes [id number] TAKE 1 [facility] 1,000 mg 3-19 TABLET BY [facility] tablet 00:00: MOUTH 00 TWICE Medical DAILY WITH Branch MEALS FOR DIABETES METFORMIN 2020-0 Yes [id number] TAKE 1 [facility] 1,000 mg 3-19 TABLET BY [facility] tablet 00:00: MOUTH TWICE Medical DAILY WITH Branch MEALS FOR DIABETES METFORMIN 2020-0 Yes [id number] TAKE 1 [facility] 1,000 mg 3-19 TABLET BY [facility] tablet 00:00: MOUTH TWICE Medical DAILY WITH Branch MEALS FOR DIABETES METFORMIN 2020-0 Yes [id number] TAKE 1 [facility] 1,000 mg 3-19 TABLET BY [facility] tablet 00:00: MOUTH TWICE Medical DAILY WITH Branch MEALS FOR DIABETES blood sugar 2020-0 Yes [id number] [facility] 3-06 sugars 2-3 [facility] of strip 00:00: times a day. Dx Medical Code Branch E11.9. Accu[employer]k guide me brand. blood sugar 2020-0 Yes [id number] Check [facility] diagnostic 3-06 sugars 2-3 [facility] of strip 00:00: times a day. Dx Medical Code Branch E11.9. [employer]k guide me brand. blood sugar 2020-0 Yes [id number] Check [facility] diagnostic 3-06 sugars 2-3 [facility] of strip 00:00: times a day. Dx Medical Code Branch E11.9. [employer]k guide me brand. blood sugar 2020-0 Yes [id number] Check [facility] diagnostic 3-06 sugars 2-3 ity of strip 00:00: times a day. Dx Medical Code Branch E11.9. [employer] guide me brand. blood sugar 2020-0 Yes [id number] Check [facility] diagnostic 3-06 sugars 2-3 ity of strip 00:00: times a day. Dx Medical Code Branch E11.9. [employer] guide me brand. blood sugar 2020-0 Yes [id number] Check [facility] diagnostic 3-06 sugars 2-3 ity of strip 00:00: times a day. Dx Medical Code Branch E11.9. [employer] guide me brand. blood sugar 2020-0 Yes [id number] Check [facility] diagnostic 3-06 sugars 2-3 ity of strip 00:00: times a day. Dx Medical Code Branch E11.9. [employer] guide me brand. blood sugar 2020-0 Yes [id number] Check [facility] diagnostic 3-06 sugars 2-3 ity of strip 00:00: times a day. Dx Medical Code Branch E11.9. [employer]k guide me brand. blood sugar 2020-0 Yes [id number] Check [facility] diagnostic 3-06 sugars 2-3 ity of strip 00:00: times a [place] 00 day. Dx Medical Code Branch E11.9. [employer]k guide me brand. blood sugar 2020-0 Yes [id number] Check [facility] diagnostic 3-06 sugars 2-3 ity of strip 00:00: times a [place] 00 day. Dx Medical Code Branch E11.9. [employer]k guide me brand. blood sugar 2020-0 Yes [id number] Check [facility] diagnostic 3-06 sugars 2-3 ity of strip 00:00: times a [place] 00 day. Dx Medical Code Branch E11.9. [employer]k guide me brand. blood sugar 2020-0 Yes [id number] Check [facility] diagnostic 3-06 sugars 2-3 ity of strip 00:00: times a [place] 00 day. Dx Medical Code Branch E11.9. [employer] guide me brand. blood sugar 2020-0 Yes [id number] Check [facility] diagnostic 3-06 sugars 2-3 ity of strip 00:00: times a [place] 00 day. Dx Medical Code Branch E11.9. [employer]k guide me brand. blood sugar 2020-0 Yes [id number] Check [facility] diagnostic 3-06 sugars 2-3 ity of strip 00:00: times a [place] 00 day. Dx Medical Code Branch E11.9. [employer]k guide me brand. blood sugar 2020-0 Yes [id number] Check [facility] diagnostic 3-06 sugars 2-3 ity of strip 00:00: times a [place] 00 day. Dx Medical Code Branch E11.9. [employer]k guide me brand. blood sugar 2020-0 Yes [id number] Check [facility] diagnostic 3-06 sugars 2-3 ity of strip 00:00: times a [place] 00 day. Dx Medical Code Branch E11.9. [employer]k guide me brand. blood sugar 2020-0 Yes [id number] Check [facility] diagnostic 3-06 sugars 2-3 ity of strip 00:00: times a [place] 00 day. Dx Medical Code Branch E11.9. Accu[employer]k guide me brand. blood sugar 2020-0 Yes [id number] Check [facility] diagnostic 3-06 sugars 2-3 ity of strip 00:00: times a [place] 00 day. Dx Medical Code Branch E11.9. Accu[employer]k guide me brand. blood sugar 2020-0 Yes [id number] Check [facility] diagnostic 3-06 sugars 2-3 ity of strip 00:00: times a [place] 00 day. Dx Medical Code Branch E11.9. [employer]k guide me brand. blood sugar 2020-0 Yes [id number] Check [facility] diagnostic 3-06 sugars 2-3 ity of strip 00:00: times a [place] 00 day. Dx Medical Code Branch E11.9. Accu[employer]k guide me brand. blood sugar 2020-0 Yes [id number] Check [facility] diagnostic 3-06 sugars 2-3 ity of strip 00:00: times a [place] 00 day. Dx Medical Code Branch E11.9. Acc[employer]k guide me brand. blood sugar 2020-0 Yes [id number] Check [facility] diagnostic 3-06 sugars 2-3 ity of strip 00:00: times a [place] 00 day. Dx Medical Code Branch E11.9. [employer]k guide me brand. blood sugar 2020-0 Yes [id number] Check [facility] diagnostic 3-06 sugars 2-3 ity of strip 00:00: times a [place] 00 day. Dx Medical Code Branch E11.9. Accu[employer]k guide me brand. blood sugar 2020-0 Yes [id number] Check [facility] diagnostic 3-06 sugars 2-3 ity of strip 00:00: times a [place] 00 day. Dx Medical Code Branch E11.9. Acc[employer]k guide me brand. blood sugar 2020-0 Yes [id number] Check [facility] diagnostic 3-06 sugars 2-3 ity of strip 00:00: times a [place] 00 day. Dx Medical Code Branch E11.9. [employer]k guide me brand. blood sugar 2020-0 Yes [id number] Check [facility] diagnostic 3-06 sugars 2-3 ity of strip 00:00: times a [place] 00 day. Dx Medical Code Branch E11.9. [employer]k guide me brand. blood sugar 2020-0 Yes [id number] Check [facility] diagnostic 3-06 sugars 2-3 ity of strip 00:00: times a [place] 00 day. Dx Medical Code Branch E11.9. Acc[employer]k guide me brand. blood sugar 2020-0 Yes [id number] Check [facility] diagnostic 3-06 sugars 2-3 ity of strip 00:00: times a [place] 00 day. Dx Medical Code Branch E11.9. Acc[employer]k guide me brand. blood sugar 2020-0 Yes [id number] Check [facility] diagnostic 3-06 sugars 2-3 ity of strip 00:00: times a [place] 00 day. Dx Medical Code Branch E11.9. [employer]k guide me brand. blood sugar 2020-0 Yes [id number] Check [facility] diagnostic 3-06 sugars 2-3 ity of strip 00:00: times a [place] 00 day. Dx Medical Code Branch E11.9. Acc[employer]k guide me brand. blood sugar 2020-0 Yes [id number] Check [facility] diagnostic 3-06 sugars 2-3 ity of strip 00:00: times a [place] 00 day. Dx Medical Code Branch E11.9. [employer] guide me brand. losartan 2018-02 Yes [id number] 100mg Take 1 [facility] vers 100 mg 1-08 tablet by [facility] tablet 00:00: mouth [place] 00 daily. For Medical blood Branch pressure atorvastati 2018-02 Yes [id number] 20mg Take 1 [facility] n (LIPITOR) 1-08 tablet by [facility] of 20 mg 00:00: mouth at [place] tablet 00 bedtime. Medical For Branch cholestero l insulin 2018-02 Yes [id number] 30U inject 30 [facility] glargine 1-08 Units ity of (LANTUS 00:00: under the [place] U-100 00 skin at Medical INSULIN) bedtime. Branch 100 unit/mL injection hydroCHLORO 2018-02 Yes [id number] 50mg Take 1 [facility] thiazide 50 1-08 tablet by [facility] of mg tablet 00:00: mouth [place] 00 daily. For Medical blood Branch pressure. losartan 2018-02 Yes [id number] 100mg Take 1 [facility] vers 100 mg 1-08 tablet by [facility] tablet 00:00: mouth [place] 00 daily. For Medical blood Branch pressure atorvastati 2018-02 Yes [id number] 20mg Take 1 [facility] n (LIPITOR) 1-08 tablet by [facility] of 20 mg 00:00: mouth at [place] tablet 00 bedtime. Medical For Branch cholestero l insulin 2018-02 Yes [id number] 30U inject 30 [facility] glargine 1-08 Units ity of (LANTUS 00:00: under the [place] U-100 00 skin at Medical INSULIN) bedtime. Branch 100 unit/mL injection hydroCHLORO 2018-02 Yes [id number] 50mg Take 1 [facility] thiazide 50 1-08 tablet by [facility] of mg tablet 00:00: mouth [place] 00 daily. For Medical blood Branch pressure. losartan 2018-02 Yes [id number] 100mg Take 1 [facility] vers 100 mg 1-08 tablet by [facility] of tablet 00:00: mouth [place] 00 daily. For Medical blood Branch pressure atorvastati 2018-02 Yes [id number] 20mg Take 1 [facility] n (LIPITOR) 1-08 tablet by [facility] of 20 mg 00:00: mouth at [place] tablet 00 bedtime. Medical For Branch cholestero l insulin 2018-02 Yes [id number] 30U inject 30 [facility] glargine 1-08 Units ity of (LANTUS 00:00: under the [place] U-100 00 skin at Medical INSULIN) bedtime. Branch 100 unit/mL injection hydroCHLORO 2018-02 Yes [id number] 50mg Take 1 [facility] thiazide 50 1-08 tablet by [facility] of mg tablet 00:00: mouth [place] 00 daily. For Medical blood Branch pressure. losartan 2018-02 Yes [id number] 100mg Take 1 [facility] vers 100 mg 1-08 tablet by [facility] of tablet 00:00: mouth [place] 00 daily. For Medical blood Branch pressure atorvastati 2018-02 Yes [id number] 20mg Take 1 [facility] n (LIPITOR) 1-08 tablet by [facility]y of 20 mg 00:00: mouth at [place] tablet 00 bedtime. Medical For Branch cholestero l insulin 2018-02 Yes [id number] 30U inject 30 [facility] glargine 1-08 Units ity of (LANTUS 00:00: under the [place] U-100 00 skin at Medical INSULIN) bedtime. Branch 100 unit/mL injection hydroCHLORO 2018-02 Yes [id number] 50mg Take 1 [facility] thiazide 50 1-08 tablet by [facility] of mg tablet 00:00: mouth [place] 00 daily. For Medical blood Branch pressure. losartan 2018-02 Yes [id number] 100mg Take 1 [facility] vers 100 mg 1-08 tablet by [facility] of tablet 00:00: mouth [place] 00 daily. For Medical blood Branch pressure atorvastati 2018-02 Yes [id number] 20mg Take 1 [facility] n (LIPITOR) 1-08 tablet by [facility]y of 20 mg 00:00: mouth at [place] tablet 00 bedtime. Medical For Branch cholestero l insulin 2018-02 Yes [id number] 30U inject 30 [facility] glargine 1-08 Units ity of (LANTUS 00:00: under the [place] U-100 00 skin at Medical INSULIN) bedtime. Branch 100 unit/mL injection hydroCHLORO 2018-02 Yes [id number] 50mg Take 1 [facility] thiazide 50 1-08 tablet by [facility] of mg tablet 00:00: mouth [place] 00 daily. For Medical blood Branch pressure. losartan 2018-02 Yes [id number] 100mg Take 1 [facility] vers 100 mg 1-08 tablet by [facility] of tablet 00:00: mouth [place] 00 daily. For Medical blood Branch pressure atorvastati 2018-02 Yes [id number] 20mg Take 1 [facility] n (LIPITOR) 1-08 tablet by ity of 20 mg 00:00: mouth at [place] tablet 00 bedtime. Medical For Branch cholestero l insulin 2018-02 Yes [id number] 30U inject 30 [facility] glargine 1-08 Units ity of (LANTUS 00:00: under the [place] U-100 00 skin at Medical INSULIN) bedtime. Branch 100 unit/mL injection hydroCHLORO 2018-02 Yes [id number] 50mg Take 1 [facility] thiazide 50 1-08 tablet by [facility] of mg tablet 00:00: mouth [place] 00 daily. For Medical blood Branch pressure. losartan 2018-02 Yes [id number] 100mg Take 1 [facility] vers 100 mg 1-08 tablet by [facility] of tablet 00:00: mouth [place] 00 daily. For Medical blood Branch pressure atorvastati 2018-02 Yes [id number] 20mg Take 1 [facility] n (LIPITOR) 1-08 tablet by ity of 20 mg 00:00: mouth at [place] tablet 00 bedtime. Medical For Branch cholestero l insulin 2018-02 Yes [id number] 30U inject 30 [facility] glargine 1-08 Units ity of (LANTUS 00:00: under the [place] U-100 00 skin at Medical INSULIN) bedtime. Branch 100 unit/mL injection hydroCHLORO 2018-02 Yes [id number] 50mg Take 1 [facility] thiazide 50 1-08 tablet by [facility] of mg tablet 00:00: mouth [place] 00 daily. For Medical blood Branch pressure. losartan 2018-02 Yes [id number] 100mg Take 1 [facility] vers 100 mg 1-08 tablet by [facility] of tablet 00:00: mouth [place] 00 daily. For Medical blood Branch pressure atorvastati 2018-02 Yes [id number] 20mg Take 1 [facility] n (LIPITOR) 1-08 tablet by ity of 20 mg 00:00: mouth at [place] tablet 00 bedtime. Medical For Branch cholestero l insulin 2018-02 Yes [id number] 30U inject 30 [facility] glargine 1-08 Units ity of (LANTUS 00:00: under the [place] U-100 00 skin at Medical INSULIN) bedtime. Branch 100 unit/mL injection hydroCHLORO 2018-02 Yes [id number] 50mg Take 1 [facility] n[facility] thiazide 50 1-08 tablet by [facility] of mg tablet 00:00: mouth [place] 00 daily. For Medical blood Branch pressure. losartan 2018-02 Yes [id number] 100mg Take 1 [facility] vers 100 mg 1-08 tablet by [facility] of tablet 00:00: mouth [place] 00 daily. For Medical blood Branch pressure atorvastati 2018-02 Yes [id number] 20mg Take 1 [facility] n (LIPITOR) 1-08 tablet by ity of 20 mg 00:00: mouth at [place] tablet 00 bedtime. Medical For Branch cholestero l insulin 2018-02 Yes [id number] 30U inject 30 [facility] glargine 1-08 Units ity of (LANTUS 00:00: under the [place] U-100 00 skin at Medical INSULIN) bedtime. Branch 100 unit/mL injection hydroCHLORO 2018-02 Yes [id number] 50mg Take 1 [facility] thiazide 50 1-08 tablet by [facility] of mg tablet 00:00: mouth [place] 00 daily. For Medical blood Branch pressure. losartan 2018-02 Yes [id number] 100mg Take 1 [facility] vers 100 mg 1-08 tablet by [facility] of tablet 00:00: mouth [place] 00 daily. For Medical blood Branch pressure atorvastati 2018-02 Yes [id number] 20mg Take 1 [facility] n (LIPITOR) 1-08 tablet by ity of 20 mg 00:00: mouth at [place] tablet 00 bedtime. Medical For Branch cholestero l insulin 2018-02 Yes [id number] 30U inject 30 [facility] glargine 1-08 Units ity of (LANTUS 00:00: under the [place] U-100 00 skin at Medical INSULIN) bedtime. Branch 100 unit/mL injection hydroCHLORO 2018-02 Yes [id number] 50mg Take 1 [facility] thiazide 50 1-08 tablet by [facility] of mg tablet 00:00: mouth [place] 00 daily. For Medical blood Branch pressure. losartan 2018-02 Yes [id number] 100mg Take 1 [facility] vers 100 mg 1-08 tablet by [facility] of tablet 00:00: mouth [place] 00 daily. For Medical blood Branch pressure atorvastati 2018-02 Yes [id number] 20mg Take 1 [facility] n (LIPITOR) 1-08 tablet by ity of 20 mg 00:00: mouth at [place] tablet 00 bedtime. Medical For Branch cholestero l insulin 2018-02 Yes [id number] 30U inject 30 [facility] glargine 1-08 Units ity of (LANTUS 00:00: under the [place] U-100 00 skin at Medical INSULIN) bedtime. Branch 100 unit/mL injection hydroCHLORO 2018-02 Yes [id number] 50mg Take 1 [facility] n[facility] thiazide 50 1-08 tablet by [facility] of mg tablet 00:00: mouth [place] 00 daily. For Medical blood Branch pressure. losartan 2018-02 Yes [id number] 100mg Take 1 [facility] vers 100 mg 1-08 tablet by [facility] of tablet 00:00: mouth [place] 00 daily. For Medical blood Branch pressure atorvastati 2018-02 Yes [id number] 20mg Take 1 [facility] n (LIPITOR) 1-08 tablet by ity of 20 mg 00:00: mouth at [place] tablet 00 bedtime. Medical For Branch cholestero l insulin 2018-02 Yes [id number] 30U inject 30 [facility] glargine 1-08 Units ity of (LANTUS 00:00: under the [place] U-100 00 skin at Medical INSULIN) bedtime. Branch 100 unit/mL injection hydroCHLORO 2018-02 Yes [id number] 50mg Take 1 [facility] n[facility] thiazide 50 1-08 tablet by [facility] of mg tablet 00:00: mouth [place] 00 daily. For Medical blood Branch pressure. losartan 2018-02 Yes [id number] 100mg Take 1 [facility] vers 100 mg 1-08 tablet by [facility] of tablet 00:00: mouth [place] 00 daily. For Medical blood Branch pressure atorvastati 2018-02 Yes [id number] 20mg Take 1 [facility] n (LIPITOR) 1-08 tablet by ity of 20 mg 00:00: mouth at [place] tablet 00 bedtime. Medical For Branch cholestero l insulin 2018-02 Yes [id number] 30U inject 30 [facility] glargine 1-08 Units ity of (LANTUS 00:00: under the [place] U-100 00 skin at Medical INSULIN) bedtime. Branch 100 unit/mL injection hydroCHLORO 2018-02 Yes [id number] 50mg Take 1 [facility] n[facility] thiazide 50 1-08 tablet by [facility] of mg tablet 00:00: mouth [place] 00 daily. For Medical blood Branch pressure. losartan 2018-02 Yes [id number] 100mg Take 1 [facility] vers 100 mg 1-08 tablet by [facility] of tablet 00:00: mouth [place] 00 daily. For Medical blood Branch pressure atorvastati 2018-02 Yes [id number] 20mg Take 1 [facility] n (LIPITOR) 1-08 tablet by ity of 20 mg 00:00: mouth at [place] tablet 00 bedtime. Medical For Branch cholestero l insulin 2018-02 Yes [id number] 30U inject 30 [facility] glargine 1-08 Units ity of (LANTUS 00:00: under the [place] U-100 00 skin at Medical INSULIN) bedtime. Branch 100 unit/mL injection hydroCHLORO 2018-02 Yes [id number] 50mg Take 1 [facility] n[facility] thiazide 50 1-08 tablet by [facility]y of mg tablet 00:00: mouth [place] 00 daily. For Medical blood Branch pressure. losartan 2018-02 Yes [id number] 100mg Take 1 [facility] vers 100 mg 1-08 tablet by [facility] of tablet 00:00: mouth [place] 00 daily. For Medical blood Branch pressure atorvastati 2018-02 Yes [id number] 20mg Take 1 [facility] n (LIPITOR) 1-08 tablet by ity of 20 mg 00:00: mouth at [place] tablet 00 bedtime. Medical For Branch cholestero l insulin 2018-02 Yes [id number] 30U inject 30 [facility] glargine 1-08 Units ity of (LANTUS 00:00: under the [place] U-100 00 skin at Medical INSULIN) bedtime. Branch 100 unit/mL injection hydroCHLORO 2018-02 Yes [id number] 50mg Take 1 [facility] n[facility] thiazide 50 1-08 tablet by [facility]y of mg tablet 00:00: mouth [place] 00 daily. For Medical blood Branch pressure. losartan 2018-02 Yes [id number] 100mg Take 1 [facility] vers 100 mg 1-08 tablet by [facility] of tablet 00:00: mouth [place] 00 daily. For Medical blood Branch pressure atorvastati 2018-02 Yes [id number] 20mg Take 1 [facility] n (LIPITOR) 1-08 tablet by ity of 20 mg 00:00: mouth at [place] tablet 00 bedtime. Medical For Branch cholestero l insulin 2018-02 Yes [id number] 30U inject 30 [facility] glargine 1-08 Units ity of (LANTUS 00:00: under the [place] U-100 00 skin at Medical INSULIN) bedtime. Branch 100 unit/mL injection hydroCHLORO 2018-02 Yes [id number] 50mg Take 1 [facility] n[facility] thiazide 50 1-08 tablet by [facility] of mg tablet 00:00: mouth [place] 00 daily. For Medical blood Branch pressure. losartan 2018-02 Yes [id number] 100mg Take 1 [facility] vers 100 mg 1-08 tablet by [facility] of tablet 00:00: mouth [place] 00 daily. For Medical blood Branch pressure atorvastati 2018-02 Yes [id number] 20mg Take 1 [facility] n (LIPITOR) 1-08 tablet by ity of 20 mg 00:00: mouth at [place] tablet 00 bedtime. Medical For Branch cholestero l insulin 2018-02 Yes [id number] 30U inject 30 [facility] glargine 1-08 Units ity of (LANTUS 00:00: under the [place] U-100 00 skin at Medical INSULIN) bedtime. Branch 100 unit/mL injection hydroCHLORO 2018-02 Yes [id number] 50mg Take 1 [facility] n[facility] thiazide 50 1-08 tablet by [facility]y of mg tablet 00:00: mouth [place] 00 daily. For Medical blood Branch pressure. losartan 2018-02 Yes [id number] 100mg Take 1 [facility] vers 100 mg 1-08 tablet by [facility] of tablet 00:00: mouth [place] 00 daily. For Medical blood Branch pressure atorvastati 2018-02 Yes [id number] 20mg Take 1 [facility] n (LIPITOR) 1-08 tablet by ity of 20 mg 00:00: mouth at [place] tablet 00 bedtime. Medical For Branch cholestero l insulin 2018-02 Yes [id number] 30U inject 30 [facility] glargine 1-08 Units ity of (LANTUS 00:00: under the [place] U-100 00 skin at Medical INSULIN) bedtime. Branch 100 unit/mL injection hydroCHLORO 2018-02 Yes [id number] 50mg Take 1 [facility] n[facility] thiazide 50 1-08 tablet by [facility]y of mg tablet 00:00: mouth [place] 00 daily. For Medical blood Branch pressure. losartan 2018-02 Yes [id number] 100mg Take 1 [facility] vers 100 mg 1-08 tablet by [facility] of tablet 00:00: mouth [place] 00 daily. For Medical blood Branch pressure atorvastati 2018-02 Yes [id number] 20mg Take 1 [facility] n (LIPITOR) 1-08 tablet by ity of 20 mg 00:00: mouth at [place] tablet 00 bedtime. Medical For Branch cholestero l insulin 2018-02 Yes [id number] 30U inject 30 [facility] glargine 1-08 Units ity of (LANTUS 00:00: under the [place] U-100 00 skin at Medical INSULIN) bedtime. Branch 100 unit/mL injection hydroCHLORO 2018-02 Yes [id number] 50mg Take 1 [facility] n[facility] thiazide 50 1-08 tablet by ity of mg tablet 00:00: mouth [place] 00 daily. For Medical blood Branch pressure. losartan 2018-02 Yes [id number] 100mg Take 1 [facility] vers 100 mg 1-08 tablet by [facility] of tablet 00:00: mouth [place] 00 daily. For Medical blood Branch pressure atorvastati 2018-02 Yes [id number] 20mg Take 1 [facility] n (LIPITOR) 1-08 tablet by ity of 20 mg 00:00: mouth at [place] tablet 00 bedtime. Medical For Branch cholestero l insulin 2018-02 Yes [id number] 30U inject 30 [facility] glargine 1-08 Units ity of (LANTUS 00:00: under the [place] U-100 00 skin at Medical INSULIN) bedtime. Branch 100 unit/mL injection hydroCHLORO 2018-02 Yes [id number] 50mg Take 1 [facility] n[facility] thiazide 50 1-08 tablet by ity of mg tablet 00:00: mouth [place] 00 daily. For Medical blood Branch pressure. losartan 2018-02 Yes [id number] 100mg Take 1 [facility] vers 100 mg 1-08 tablet by [facility] of tablet 00:00: mouth [place] 00 daily. For Medical blood Branch pressure atorvastati 2018-02 Yes [id number] 20mg Take 1 [facility] n (LIPITOR) 1-08 tablet by ity of 20 mg 00:00: mouth at [place] tablet 00 bedtime. Medical For Branch cholestero l insulin 2018-02 Yes [id number] 30U inject 30 [facility] glargine 1-08 Units ity of (LANTUS 00:00: under the [place] U-100 00 skin at Medical INSULIN) bedtime. Branch 100 unit/mL injection hydroCHLORO 2018-02 Yes [id number] 50mg Take 1 [facility] n[facility] thiazide 50 1-08 tablet by ity of mg tablet 00:00: mouth [place] 00 daily. For Medical blood Branch pressure. losartan 2018-02 Yes [id number] 100mg Take 1 [facility] vers 100 mg 1-08 tablet by [facility] of tablet 00:00: mouth [place] 00 daily. For Medical blood Branch pressure atorvastati 2018-02 Yes [id number] 20mg Take 1 [facility] n (LIPITOR) 1-08 tablet by ity of 20 mg 00:00: mouth at [place] tablet 00 bedtime. Medical For Branch cholestero l insulin 2018-02 Yes [id number] 30U inject 30 [facility] glargine 1-08 Units ity of (LANTUS 00:00: under the [place] U-100 00 skin at Medical INSULIN) bedtime. Branch 100 unit/mL injection hydroCHLORO 2018-02 Yes [id number] 50mg Take 1 [facility] n[facility] thiazide 50 1-08 tablet by ity of mg tablet 00:00: mouth [place] 00 daily. For Medical blood Branch pressure. losartan 2018-02 Yes [id number] 100mg Take 1 [facility] vers 100 mg 1-08 tablet by [facility]y of tablet 00:00: mouth [place] 00 daily. For Medical blood Branch pressure atorvastati 2018-02 Yes [id number] 20mg Take 1 [facility] n (LIPITOR) 1-08 tablet by ity of 20 mg 00:00: mouth at [place] tablet 00 bedtime. Medical For Branch cholestero l insulin 2018-02 Yes [id number] 30U inject 30 [facility] glargine 1-08 Units ity of (LANTUS 00:00: under the [place] U-100 00 skin at Medical INSULIN) bedtime. Branch 100 unit/mL injection hydroCHLORO 2018-02 Yes [id number] 50mg Take 1 [facility] n[facility] thiazide 50 1-08 tablet by ity of mg tablet 00:00: mouth [place] 00 daily. For Medical blood Branch pressure. losartan 2018-02 Yes [id number] 100mg Take 1 [facility] vers 100 mg 1-08 tablet by [facility]y of tablet 00:00: mouth [place] 00 daily. For Medical blood Branch pressure atorvastati 2018-02 Yes [id number] 20mg Take 1 [facility] n (LIPITOR) 1-08 tablet by ity of 20 mg 00:00: mouth at [place] tablet 00 bedtime. Medical For Branch cholestero l insulin 2018-02 Yes [id number] 30U inject 30 [facility] glargine 1-08 Units ity of (LANTUS 00:00: under the [place] U-100 00 skin at Medical INSULIN) bedtime. Branch 100 unit/mL injection hydroCHLORO 2018-02 Yes [id number] 50mg Take 1 [facility] n[facility] thiazide 50 1-08 tablet by ity of mg tablet 00:00: mouth [place] 00 daily. For Medical blood Branch pressure. losartan 2018-02 Yes [id number] 100mg Take 1 [facility] vers 100 mg 1-08 tablet by [facility] of tablet 00:00: mouth [place] 00 daily. For Medical blood Branch pressure atorvastati 2018-02 Yes [id number] 20mg Take 1 [facility] n (LIPITOR) 1-08 tablet by ity of 20 mg 00:00: mouth at [place] tablet 00 bedtime. Medical For Branch cholestero l insulin 2018-02 Yes [id number] 30U inject 30 [facility] glargine 1-08 Units ity of (LANTUS 00:00: under the [place] U-100 00 skin at Medical INSULIN) bedtime. Branch 100 unit/mL injection hydroCHLORO 2018-02 Yes [id number] 50mg Take 1 [facility] nivers thiazide 50 1-08 tablet by ity of mg tablet 00:00: mouth [place] 00 daily. For Medical blood Branch pressure. losartan 2018-02 Yes [id number] 100mg Take 1 [facility] vers 100 mg 1-08 tablet by [facility]y of tablet 00:00: mouth [place] 00 daily. For Medical blood Branch pressure atorvastati 2018-02 Yes [id number] 20mg Take 1 [facility] n (LIPITOR) 1-08 tablet by ity of 20 mg 00:00: mouth at [place] tablet 00 bedtime. Medical For Branch cholestero l insulin 2018-02 Yes [id number] 30U inject 30 [facility] glargine 1-08 Units ity of (LANTUS 00:00: under the [place] U-100 00 skin at Medical INSULIN) bedtime. Branch 100 unit/mL injection hydroCHLORO 2018-02 Yes [id number] 50mg Take 1 [facility] thiazide 50 1-08 tablet by [facility] of mg tablet 00:00: mouth [place] 00 daily. For Medical blood Branch pressure. losartan 2018-02 Yes [id number] 100mg Take 1 [facility] vers 100 mg 1-08 tablet by [facility]y of tablet 00:00: mouth [place] 00 daily. For Medical blood Branch pressure atorvastati 2018-02 Yes [id number] 20mg Take 1 [facility] n (LIPITOR) 1-08 tablet by ity of 20 mg 00:00: mouth at [place] tablet 00 bedtime. Medical For Branch cholestero l insulin 2018-02 Yes [id number] 30U inject 30 [facility] glargine 1-08 Units ity of (LANTUS 00:00: under the [place] U-100 00 skin at Medical INSULIN) bedtime. Branch 100 unit/mL injection hydroCHLORO 2018-02 Yes [id number] 50mg Take 1 [facility] thiazide 50 1-08 tablet by ity of mg tablet 00:00: mouth [place] 00 daily. For Medical blood Branch pressure. losartan 2018-02 Yes [id number] 100mg Take 1 [facility] vers 100 mg 1-08 tablet by [facility]y of tablet 00:00: mouth [place] 00 daily. For Medical blood Branch pressure atorvastati 2018-02 Yes [id number] 20mg Take 1 [facility] n (LIPITOR) 1-08 tablet by ity of 20 mg 00:00: mouth at [place] tablet 00 bedtime. Medical For Branch cholestero l insulin 2018-02 Yes [id number] 30U inject 30 [facility] glargine 1-08 Units ity of (LANTUS 00:00: under the [place] U-100 00 skin at Medical INSULIN) bedtime. Branch 100 unit/mL injection hydroCHLORO 2018-02 Yes [id number] 50mg Take 1 [facility] thiazide 50 1-08 tablet by ity of mg tablet 00:00: mouth [place] 00 daily. For Medical blood Branch pressure. losartan 2018-02 Yes [id number] 100mg Take 1 [facility] vers 100 mg 1-08 tablet by ity of tablet 00:00: mouth [place] 00 daily. For Medical blood Branch pressure atorvastati 2018-02 Yes [id number] 20mg Take 1 [facility] n (LIPITOR) 1-08 tablet by ity of 20 mg 00:00: mouth at [place] tablet 00 bedtime. Medical For Branch cholestero l insulin 2018-02 Yes [id number] 30U inject 30 [facility] glargine 1-08 Units ity of (LANTUS 00:00: under the [place] U-100 00 skin at Medical INSULIN) bedtime. Branch 100 unit/mL injection hydroCHLORO 2018-02 Yes [id number] 50mg Take 1 [facility] thiazide 50 1-08 tablet by ity of mg tablet 00:00: mouth [place] 00 daily. For Medical blood Branch pressure. losartan 2018-02 Yes [id number] 100mg Take 1 [facility] vers 100 mg 1-08 tablet by [facility]y of tablet 00:00: mouth [place] 00 daily. For Medical blood Branch pressure atorvastati 2018-02 Yes [id number] 20mg Take 1 [facility] n (LIPITOR) 1-08 tablet by ity of 20 mg 00:00: mouth at [place] tablet 00 bedtime. Medical For Branch cholestero l insulin 2018-02 Yes [id number] 30U inject 30 [facility] glargine 1-08 Units ity of (LANTUS 00:00: under the [place] U-100 00 skin at Medical INSULIN) bedtime. Branch 100 unit/mL injection hydroCHLORO 2018-02 Yes [id number] 50mg Take 1 [facility] thiazide 50 1-08 tablet by ity of mg tablet 00:00: mouth [place] 00 daily. For Medical blood Branch pressure. losartan 2018-02 Yes [id number] 100mg Take 1 [facility] vers 100 mg 1-08 tablet by ity of tablet 00:00: mouth [place] 00 daily. For Medical blood Branch pressure atorvastati 2018-02 Yes [id number] 20mg Take 1 [facility] n (LIPITOR) 1-08 tablet by ity of 20 mg 00:00: mouth at [place] tablet 00 bedtime. Medical For Branch cholestero l insulin 2018-02 Yes [id number] 30U inject 30 [facility] glargine 1-08 Units ity of (LANTUS 00:00: under the [place] U-100 00 skin at Medical INSULIN) bedtime. Branch 100 unit/mL injection hydroCHLORO 2018-02 Yes [id number] 50mg Take 1 [facility] thiazide 50 1-08 tablet by ity of mg tablet 00:00: mouth [place] 00 daily. For Medical blood Branch pressure. insulin 2018-02 Yes [id number] 5U inject 5 [facility] regular 0-14 Units ity of human 00:00: under the [place] (HUMULIN R 00 skin 3 Medical REGULAR (three) Branch U-100 times INSULN) 100 daily unit/mL before injection meals. insulin 2018-02 Yes [id number] 5U inject 5 [facility] regular 0-14 Units ity of human 00:00: under the [place] (HUMULIN R 00 skin 3 Medical REGULAR (three) Branch U-100 times INSULN) 100 daily unit/mL before injection meals. insulin 2018-02 Yes [id number] 5U inject 5 [facility] regular 0-14 Units ity of human 00:00: under the [place] (HUMULIN R 00 skin 3 Medical REGULAR (three) Branch U-100 times INSULN) 100 daily unit/mL before injection meals. insulin 2018-02 Yes [id number] 5U inject 5 [facility]ivers regular 0-14 Units ity of human 00:00: under the [place] (HUMULIN R 00 skin 3 Medical REGULAR (three) Branch U-100 times INSULN) 100 daily unit/mL before injection meals. insulin 2018-02 Yes [id number] 5U inject 5 [facility] n[facility] regular 0-14 Units ity of human 00:00: under the [place] (HUMULIN R 00 skin 3 Medical REGULAR (three) Branch U-100 times INSULN) 100 daily unit/mL before injection meals. insulin 2018-02 Yes [id number] 5U inject 5 [facility] nivers regular 0-14 Units ity of human 00:00: under the [place] (HUMULIN R 00 skin 3 Medical REGULAR (three) Branch U-100 times INSULN) 100 daily unit/mL before injection meals. insulin 2018-02 Yes [id number] 5U inject 5 [facility] nivers regular 0-14 Units ity of human 00:00: under the [place] (HUMULIN R 00 skin 3 Medical REGULAR (three) Branch U-100 times INSULN) 100 daily unit/mL before injection meals. insulin 2018-02 Yes [id number] 5U inject 5 [facility] nivers regular 0-14 Units ity of human 00:00: under the [place] (HUMULIN R 00 skin 3 Medical REGULAR (three) Branch U-100 times INSULN) 100 daily unit/mL before injection meals. insulin 2018-02 Yes [id number] 5U inject 5 [facility] nivers regular 0-14 Units ity of human 00:00: under the [place] (HUMULIN R 00 skin 3 Medical REGULAR (three) Branch U-100 times INSULN) 100 daily unit/mL before injection meals. insulin 2018-02 Yes [id number] 5U inject 5 [facility] nivers regular 0-14 Units ity of human 00:00: under the [place] (HUMULIN R 00 skin 3 Medical REGULAR (three) Branch U-100 times INSULN) 100 daily unit/mL before injection meals. insulin 2018-02 Yes [id number] 5U inject 5 [facility] nivers regular 0-14 Units ity of human 00:00: under the [place] (HUMULIN R 00 skin 3 Medical REGULAR (three) Branch U-100 times INSULN) 100 daily unit/mL before injection meals. insulin 2018-02 Yes [id number] 5U inject 5 [facility] nivers regular 0-14 Units ity of human 00:00: under the [place] (HUMULIN R 00 skin 3 Medical REGULAR (three) Branch U-100 times INSULN) 100 daily unit/mL before injection meals. insulin 2018-02 Yes [id number] 5U inject 5 [facility] nivers regular 0-14 Units ity of human 00:00: under the [place] (HUMULIN R 00 skin 3 Medical REGULAR (three) Branch U-100 times INSULN) 100 daily unit/mL before injection meals. insulin 2018-02 Yes [id number] 5U inject 5 [facility] nivers regular 0-14 Units ity of human 00:00: under the [place] (HUMULIN R 00 skin 3 Medical REGULAR (three) Branch U-100 times INSULN) 100 daily unit/mL before injection meals. insulin 2018-02 Yes [id number] 5U inject 5 [facility]ivers regular 0-14 Units ity of human 00:00: under the [place] (HUMULIN R 00 skin 3 Medical REGULAR (three) Branch U-100 times INSULN) 100 daily unit/mL before injection meals. insulin 2018-02 Yes [id number] 5U inject 5 [facility] nivers regular 0-14 Units ity of human 00:00: under the [place] (HUMULIN R 00 skin 3 Medical REGULAR (three) Branch U-100 times INSULN) 100 daily unit/mL before injection meals. insulin 2018-02 Yes [id number] 5U inject 5 [facility] nivers regular 0-14 Units ity of human 00:00: under the [place] (HUMULIN R 00 skin 3 Medical REGULAR (three) Branch U-100 times INSULN) 100 daily unit/mL before injection meals. insulin 2018-02 Yes [id number] 5U inject 5 [facility] nivers regular 0-14 Units ity of human 00:00: under the [place] (HUMULIN R 00 skin 3 Medical REGULAR (three) Branch U-100 times INSULN) 100 daily unit/mL before injection meals. insulin 2018-02 Yes [id number] 5U inject 5 [facility] nivers regular 0-14 Units ity of human 00:00: under the [place] (HUMULIN R 00 skin 3 Medical REGULAR (three) Branch U-100 times INSULN) 100 daily unit/mL before injection meals. insulin 2018-02 Yes [id number] 5U inject 5 [facility] nivers regular 0-14 Units ity of human 00:00: under the [place] (HUMULIN R 00 skin 3 Medical REGULAR (three) Branch U-100 times INSULN) 100 daily unit/mL before injection meals. insulin 2018-02 Yes [id number] 5U inject 5 [facility] regular 0-14 Units ity of human 00:00: under the [place] (HUMULIN R 00 skin 3 Medical REGULAR (three) Branch U-100 times INSULN) 100 daily unit/mL before injection meals. insulin 2018-02 Yes [id number] 5U inject 5 U nivers regular 0-14 Units ity of human 00:00: under the [place] (HUMULIN R 00 skin 3 Medical REGULAR (three) Branch U-100 times INSULN) 100 daily unit/mL before injection meals. insulin 2018-02 Yes [id number] 5U inject 5 [facility] nivers regular 0-14 Units ity of human 00:00: under the [place] (HUMULIN R 00 skin 3 Medical REGULAR (three) Branch U-100 times INSULN) 100 daily unit/mL before injection meals. insulin 2018-02 Yes [id number] 5U inject 5 U nivers regular 0-14 Units ity of human 00:00: under the [place] (HUMULIN R 00 skin 3 Medical REGULAR (three) Branch U-100 times INSULN) 100 daily unit/mL before injection meals. insulin 2018-02 Yes [id number] 5U inject 5 U nivers regular 0-14 Units ity of human 00:00: under the [place] (HUMULIN R 00 skin 3 Medical REGULAR (three) Branch U-100 times INSULN) 100 daily unit/mL before injection meals. insulin 2018-02 Yes [id number] 5U inject 5 [facility] nivers regular 0-14 Units ity of human 00:00: under the [place] (HUMULIN R 00 skin 3 Medical REGULAR (three) Branch U-100 times INSULN) 100 daily unit/mL before injection meals. insulin 2018-02 Yes [id number] 5U inject 5 U nivers regular 0-14 Units ity of human 00:00: under the [place] (HUMULIN R 00 skin 3 Medical REGULAR (three) Branch U-100 times INSULN) 100 daily unit/mL before injection meals. insulin 2018-02 Yes [id number] 5U inject 5 U nivers regular 0-14 Units ity of human 00:00: under the [place] (HUMULIN R 00 skin 3 Medical REGULAR (three) Branch U-100 times INSULN) 100 daily unit/mL before injection meals. insulin 2018-02 Yes [id number] 5U inject 5 U nivers regular 0-14 Units ity of human 00:00: under the [place] (HUMULIN R 00 skin 3 Medical REGULAR (three) Branch U-100 times INSULN) 100 daily unit/mL before injection meals. insulin 2018-02 Yes [id number] 5U inject 5 [facility] nivers regular 0-14 Units ity of human 00:00: under the [place] (HUMULIN R 00 skin 3 Medical REGULAR (three) Branch U-100 times INSULN) 100 daily unit/mL before injection meals. insulin 2018-02 Yes [id number] 5U inject 5 [facility] nivers regular 0-14 Units ity of human 00:00: under the [place] (HUMULIN R 00 skin 3 Medical REGULAR (three) Branch U-100 times INSULN) 100 daily unit/mL before injection meals. meloxicam Yes [id number] 15mg Take 1 U nivers 15 mg 9-09 tablet by ity of tablet 00:00: mouth [place] 00 daily. Medical Branch meloxicam Yes [id number] 15mg Take 1 U nivers 15 mg 9-09 tablet by ity of tablet 00:00: mouth [place] 00 daily. [facility] Branch meloxicam Yes [id number] 15mg Take 1 U nivers 15 mg 9-09 tablet by ity of tablet 00:00: mouth [place] 00 daily. [facility] meloxicam Yes [id number] 15mg Take 1 U nivers 15 mg 9-09 tablet by ity of tablet 00:00: mouth [place] 00 daily. [facility] Branch meloxicam Yes [id number] 15mg Take 1 U nivers 15 mg 9-09 tablet by ity of tablet 00:00: mouth [place] 00 daily. Medical Branch meloxicam 2019-0 Yes [id number] 15mg Take 1 U nivers 15 mg 9-09 tablet by ity of tablet 00:00: mouth [place] 00 daily. Medical Branch meloxicam 0 Yes [id number] 15mg Take 1 U nivers 15 mg 9-09 tablet by ity of tablet 00:00: mouth [place] 00 daily. Medical Branch meloxicam 0 Yes [id number] 15mg Take 1 [facility] nivers 15 mg 9-09 tablet by ity of tablet 00:00: mouth [place] 00 daily. Medical Branch meloxicam 0 Yes [id number] 15mg Take 1 [facility] nivers 15 mg 9-09 tablet by ity of tablet 00:00: mouth [place] 00 daily. Medical Branch meloxicam 0 Yes [id number] 15mg Take 1 [facility] nivers 15 mg 9-09 tablet by ity of tablet 00:00: mouth [place] 00 daily. Medical Branch meloxicam 0 Yes [id number] 15mg Take 1 [facility] nivers 15 mg 9-09 tablet by ity of tablet 00:00: mouth [place] 00 daily. Medical Branch meloxicam 0 Yes [id number] 15mg Take 1 [facility] nivers 15 mg 9-09 tablet by ity of tablet 00:00: mouth [place] 00 daily. Medical Branch meloxicam 0 Yes [id number] 15mg Take 1 U nivers 15 mg 9-09 tablet by ity of tablet 00:00: mouth [place] 00 daily. Medical Branch meloxicam 2018-0 Yes [id number] 15mg Take 1 [facility] nivers 15 mg 9-09 tablet by ity of tablet 00:00: mouth [place] 00 daily. [facility] Branch meloxicam 0 Yes [id number] 15mg Take 1 U nivers 15 mg 9-09 tablet by ity of tablet 00:00: mouth [place] 00 daily. Medical Branch meloxicam 0 Yes [id number] 15mg Take 1 U nivers 15 mg 9-09 tablet by ity of tablet 00:00: mouth [place] 00 daily. [facility] Branch meloxicam 0 Yes [id number] 15mg Take 1 U nivers 15 mg 9-09 tablet by ity of tablet 00:00: mouth [place] 00 daily. [facility] Branch meloxicam 0 Yes [id number] 15mg Take 1 U nivers 15 mg 9-09 tablet by ity of tablet 00:00: mouth [place] 00 daily. Medical Branch meloxicam 0 Yes [id number] 15mg Take 1 U nivers 15 mg 9-09 tablet by ity of tablet 00:00: mouth [place] 00 daily. Medical Branch meloxicam 0 Yes [id number] 15mg Take 1 U nivers 15 mg 9-09 tablet by ity of tablet 00:00: mouth [place] 00 daily. Medical Branch meloxicam 0 Yes [id number] 15mg Take 1 [facility] nivers 15 mg 9-09 tablet by ity of tablet 00:00: mouth [place] 00 daily. Medical Branch meloxicam 0 Yes [id number] 15mg Take 1 U nivers 15 mg 9-09 tablet by ity of tablet 00:00: mouth [place] 00 daily. [facility] Branch meloxicam 0 Yes [id number] 15mg Take 1 U nivers 15 mg 9-09 tablet by ity of tablet 00:00: mouth [place] 00 daily. Medical Branch meloxicam 0 Yes [id number] 15mg Take 1 U nivers 15 mg 9-09 tablet by ity of tablet 00:00: mouth [place] 00 daily. Medical Branch meloxicam 0 Yes [id number] 15mg Take 1 U nivers 15 mg 9-09 tablet by ity of tablet 00:00: mouth [place] 00 daily. Medical Branch meloxicam 0 Yes [id number] 15mg Take 1 U nivers 15 mg 9-09 tablet by ity of tablet 00:00: mouth [place] 00 daily. Medical Branch meloxicam 0 Yes [id number] 15mg Take 1 [facility] nivers 15 mg 9-09 tablet by ity of tablet 00:00: mouth [place] 00 daily. Medical Branch meloxicam 0 Yes [id number] 15mg Take 1 [facility] nivers 15 mg 9-09 tablet by ity of tablet 00:00: mouth [place] 00 daily. Medical Branch meloxicam 0 Yes [id number] 15mg Take 1 U nivers 15 mg 9-09 tablet by ity of tablet 00:00: mouth [place] 00 daily. Medical Branch meloxicam 0 Yes [id number] 15mg Take 1 [facility] nivers 15 mg 9-09 tablet by ity of tablet 00:00: mouth [place] 00 daily. Medical Branch meloxicam 0 Yes [id number] 15mg Take 1 U nivers 15 mg 9-09 tablet by ity of tablet 00:00: mouth [place] 00 daily. Medical Branch cholecalcif 2018- Yes [id number] Unsure of [facility] tamika, 7-08 dose. ity of vitamin D3, 00:00: [place] 1,000 unit 00 Medical tablet Branch vitamin 2019-0 Yes [id number] 5000ug Take 5 U nivers B-12 1,000 7-08 tablets by ity of mcg tablet 00:00: mouth [place] 00 daily. Medical Branch vitamin B-1 Yes [id number] 50mg Take 1 [facility] (VITAMIN 7-08 tablet by ity of B-1) 50 mg 00:00: mouth [place] tablet 00 daily. Medical Branch cholecalcif Yes [id number] Unsure of [facility] tamika, 7-08 dose. ity of vitamin D3, 00:00: [place] 1,000 unit 00 Medical tablet Branch vitamin 2019- Yes [id number] 5000ug Take 5 U nivers B-12 1,000 7-08 tablets by ity of mcg tablet 00:00: mouth [place] 00 daily. Medical Branch vitamin B-1 Yes [id number] 50mg Take 1 [facility] (VITAMIN 7-08 tablet by ity of B-1) 50 mg 00:00: mouth [place] tablet 00 daily. Medical Branch cholecalcif Yes [id number] Unsure of [facility] tamika, 7-08 dose. ity of vitamin D3, 00:00: [place] 1,000 unit 00 Medical tablet Branch vitamin 2019-0 Yes [id number] 5000ug Take 5 U nivers B-12 1,000 7-08 tablets by ity of mcg tablet 00:00: mouth [place] 00 daily. Medical Branch vitamin B-1 Yes [id number] 50mg Take 1 [facility] (VITAMIN 7-08 tablet by ity of B-1) 50 mg 00:00: mouth [place] tablet 00 daily. Medical Branch cholecalcif Yes [id number] Unsure of [facility] tamika, 7-08 dose. ity of vitamin D3, 00:00: [place] 1,000 unit 00 Medical tablet Branch vitamin 2019- Yes [id number] 5000ug Take 5 U nivers B-12 1,000 7-08 tablets by ity of mcg tablet 00:00: mouth [place] 00 daily. Medical Branch vitamin B-1 Yes [id number] 50mg Take 1 [facility] (VITAMIN 7-08 tablet by ity of B-1) 50 mg 00:00: mouth [place] tablet 00 daily. Medical Branch cholecalcif Yes [id number] Unsure of [facility] tamika, 7-08 dose. ity of vitamin D3, 00:00: [place] 1,000 unit 00 Medical tablet Branch vitamin 2018-0 Yes [id number] 5000ug Take 5 U nivers B-12 1,000 7-08 tablets by ity of mcg tablet 00:00: mouth [place] 00 daily. Medical Branch vitamin B-1 Yes [id number] 50mg Take 1 [facility] (VITAMIN 7-08 tablet by ity of B-1) 50 mg 00:00: mouth [place] tablet 00 daily. Medical Branch cholecalcif Yes [id number] Unsure of [facility] tamika, 7-08 dose. ity of vitamin D3, 00:00: [place] 1,000 unit 00 Medical tablet Branch vitamin 2018- Yes [id number] 5000ug Take 5 U nivers B-12 1,000 7-08 tablets by ity of mcg tablet 00:00: mouth [place] 00 daily. Medical Branch vitamin B-1 Yes [id number] 50mg Take 1 [facility] (VITAMIN 7-08 tablet by ity of B-1) 50 mg 00:00: mouth [place] tablet 00 daily. Medical Branch cholecalcif Yes [id number] Unsure of [facility] tamika, 7-08 dose. ity of vitamin D3, 00:00: [place] 1,000 unit 00 Medical tablet Branch vitamin 2018-0 Yes [id number] 5000ug Take 5 U nivers B-12 1,000 7-08 tablets by ity of mcg tablet 00:00: mouth [place] 00 daily. Medical Branch vitamin B-1 Yes [id number] 50mg Take 1 [facility] (VITAMIN 7-08 tablet by ity of B-1) 50 mg 00:00: mouth [place] tablet 00 daily. Medical Branch cholecalcif Yes [id number] Unsure of [facility] tamika, 7-08 dose. ity of vitamin D3, 00:00: [place] 1,000 unit 00 Medical tablet Branch vitamin 2018- Yes [id number] 5000ug Take 5 U nivers B-12 1,000 7-08 tablets by ity of mcg tablet 00:00: mouth [place] 00 daily. Medical Branch vitamin B-1 Yes [id number] 50mg Take 1 [facility] (VITAMIN 7-08 tablet by ity of B-1) 50 mg 00:00: mouth [place] tablet 00 daily. Medical Branch cholecalcif 2018- Yes [id number] Unsure of [facility] tamika, 7-08 dose. ity of vitamin D3, 00:00: [place] 1,000 unit 00 Medical tablet Branch vitamin 2019-0 Yes [id number] 5000ug Take 5 U nivers B-12 1,000 7-08 tablets by ity of mcg tablet 00:00: mouth [place] 00 daily. Medical Branch vitamin B-1 Yes [id number] 50mg Take 1 [facility] (VITAMIN 7-08 tablet by ity of B-1) 50 mg 00:00: mouth [place] tablet 00 daily. Medical Branch cholecalcif Yes [id number] Unsure of [facility] tamika, 7-08 dose. ity of vitamin D3, 00:00: [place] 1,000 unit 00 Medical tablet Branch vitamin 2019-0 Yes [id number] 5000ug Take 5 U nivers B-12 1,000 7-08 tablets by ity of mcg tablet 00:00: mouth [place] 00 daily. Medical Branch vitamin B-1 Yes [id number] 50mg Take 1 [facility] (VITAMIN 7-08 tablet by ity of B-1) 50 mg 00:00: mouth [place] tablet 00 daily. Medical Branch cholecalcif Yes [id number] Unsure of [facility] tamika, 7-08 dose. ity of vitamin D3, 00:00: [place] 1,000 unit 00 Medical tablet Branch vitamin 2018-0 Yes [id number] 5000ug Take 5 U nivers B-12 1,000 7-08 tablets by ity of mcg tablet 00:00: mouth [place] 00 daily. Medical Branch vitamin B-1 Yes [id number] 50mg Take 1 [facility] (VITAMIN 7-08 tablet by ity of B-1) 50 mg 00:00: mouth [place] tablet 00 daily. Medical Branch cholecalcif Yes [id number] Unsure of [facility] tamika, 7-08 dose. ity of vitamin D3, 00:00: [place] 1,000 unit 00 Medical tablet Branch vitamin 2019-0 Yes [id number] 5000ug Take 5 U nivers B-12 1,000 7-08 tablets by ity of mcg tablet 00:00: mouth [place] 00 daily. Medical Branch vitamin B-1 Yes [id number] 50mg Take 1 [facility] (VITAMIN 7-08 tablet by ity of B-1) 50 mg 00:00: mouth [place] tablet 00 daily. Medical Branch cholecalcif 2018- Yes [id number] Unsure of [facility] tamika, 7-08 dose. ity of vitamin D3, 00:00: [place] 1,000 unit 00 Medical tablet Branch vitamin 2019- Yes [id number] 5000ug Take 5 U nivers B-12 1,000 7-08 tablets by ity of mcg tablet 00:00: mouth [place] 00 daily. Medical Branch vitamin B-1 Yes [id number] 50mg Take 1 [facility] (VITAMIN 7-08 tablet by ity of B-1) 50 mg 00:00: mouth [place] tablet 00 daily. Medical Branch cholecalcif Yes [id number] Unsure of [facility] tamika, 7-08 dose. ity of vitamin D3, 00:00: [place] 1,000 unit 00 Medical tablet Branch vitamin 2018- Yes [id number] 5000ug Take 5 U nivers B-12 1,000 7-08 tablets by ity of mcg tablet 00:00: mouth [place] 00 daily. Medical Branch vitamin B-1 Yes [id number] 50mg Take 1 [facility] (VITAMIN 7-08 tablet by ity of B-1) 50 mg 00:00: mouth [place] tablet 00 daily. Medical Branch cholecalcif Yes [id number] Unsure of [facility] tamika, 7-08 dose. ity of vitamin D3, 00:00: [place] 1,000 unit 00 Medical tablet Branch vitamin 2018- Yes [id number] 5000ug Take 5 U nivers B-12 1,000 7-08 tablets by ity of mcg tablet 00:00: mouth [place] 00 daily. Medical Branch vitamin B-1 Yes [id number] 50mg Take 1 [facility] (VITAMIN 7-08 tablet by ity of B-1) 50 mg 00:00: mouth [place] tablet 00 daily. Medical Branch cholecalcif Yes [id number] Unsure of [facility] tamika, 7-08 dose. ity of vitamin D3, 00:00: [place] 1,000 unit 00 Medical tablet Branch vitamin 2019-0 Yes [id number] 5000ug Take 5 U nivers B-12 1,000 7-08 tablets by ity of mcg tablet 00:00: mouth [place] 00 daily. Medical Branch vitamin B-1 Yes [id number] 50mg Take 1 [facility] (VITAMIN 7-08 tablet by ity of B-1) 50 mg 00:00: mouth [place] tablet 00 daily. Medical Branch cholecalcif 2018- Yes [id number] Unsure of [facility] tamika, 7-08 dose. ity of vitamin D3, 00:00: [place] 1,000 unit 00 Medical tablet Branch vitamin 2018- Yes [id number] 5000ug Take 5 U nivers B-12 1,000 7-08 tablets by ity of mcg tablet 00:00: mouth [place] 00 daily. Medical Branch vitamin B-1 Yes [id number] 50mg Take 1 [facility] (VITAMIN 7-08 tablet by ity of B-1) 50 mg 00:00: mouth [place] tablet 00 daily. Medical Branch cholecalcif Yes [id number] Unsure of [facility] tamika, 7-08 dose. ity of vitamin D3, 00:00: [place] 1,000 unit 00 Medical tablet Branch vitamin 2019-0 Yes [id number] 5000ug Take 5 U nivers B-12 1,000 7-08 tablets by ity of mcg tablet 00:00: mouth [place] 00 daily. Medical Branch vitamin B-1 Yes [id number] 50mg Take 1 [facility] (VITAMIN 7-08 tablet by ity of B-1) 50 mg 00:00: mouth [place] tablet 00 daily. Medical Branch cholecalcif 2018- Yes [id number] Unsure of [facility] tamika, 7-08 dose. ity of vitamin D3, 00:00: [place] 1,000 unit 00 Medical tablet Branch vitamin 2018-0 Yes [id number] 5000ug Take 5 U nivers B-12 1,000 7-08 tablets by ity of mcg tablet 00:00: mouth [place] 00 daily. Medical Branch vitamin B-1 2018- Yes [id number] 50mg Take 1 [facility] (VITAMIN 7-08 tablet by ity of B-1) 50 mg 00:00: mouth [place] tablet 00 daily. Medical Branch cholecalcif 2018- Yes [id number] Unsure of [facility] tamika, 7-08 dose. ity of vitamin D3, 00:00: [place] 1,000 unit 00 Medical tablet Branch vitamin 2019-0 Yes [id number] 5000ug Take 5 U nivers B-12 1,000 7-08 tablets by ity of mcg tablet 00:00: mouth [place] 00 daily. Medical Branch vitamin B-1 Yes [id number] 50mg Take 1 [facility] (VITAMIN 7-08 tablet by ity of B-1) 50 mg 00:00: mouth [place] tablet 00 daily. Medical Branch cholecalcif 2018- Yes [id number] Unsure of [facility] tamika, 7-08 dose. ity of vitamin D3, 00:00: [place] 1,000 unit 00 Medical tablet Branch vitamin 2018-0 Yes [id number] 5000ug Take 5 U nivers B-12 1,000 7-08 tablets by ity of mcg tablet 00:00: mouth [place] 00 daily. Medical Branch vitamin B-1 Yes [id number] 50mg Take 1 [facility] (VITAMIN 7-08 tablet by ity of B-1) 50 mg 00:00: mouth [place] tablet 00 daily. Medical Branch cholecalcif 2018- Yes [id number] Unsure of [facility] tamika, 7-08 dose. ity of vitamin D3, 00:00: [place] 1,000 unit 00 Medical tablet Branch vitamin 2018-0 Yes [id number] 5000ug Take 5 U nivers B-12 1,000 7-08 tablets by ity of mcg tablet 00:00: mouth [place] 00 daily. Medical Branch vitamin B-1 Yes [id number] 50mg Take 1 [facility] (VITAMIN 7-08 tablet by ity of B-1) 50 mg 00:00: mouth [place] tablet 00 daily. Medical Branch cholecalcif 2018- Yes [id number] Unsure of [facility] tamika, 7-08 dose. ity of vitamin D3, 00:00: [place] 1,000 unit 00 Medical tablet Branch vitamin 2018-0 Yes [id number] 5000ug Take 5 U nivers B-12 1,000 7-08 tablets by ity of mcg tablet 00:00: mouth [place] 00 daily. Medical Branch vitamin B-1 2018- Yes [id number] 50mg Take 1 [facility] (VITAMIN 7-08 tablet by ity of B-1) 50 mg 00:00: mouth [place] tablet 00 daily. Medical Branch cholecalcif 2018- Yes [id number] Unsure of [facility] tamika, 7-08 dose. ity of vitamin D3, 00:00: [place] 1,000 unit 00 Medical tablet Branch vitamin 2019-0 Yes [id number] 5000ug Take 5 U nivers B-12 1,000 7-08 tablets by ity of mcg tablet 00:00: mouth [place] 00 daily. Medical Branch vitamin B-1 Yes [id number] 50mg Take 1 [facility] (VITAMIN 7-08 tablet by ity of B-1) 50 mg 00:00: mouth [place] tablet 00 daily. Medical Branch cholecalcif Yes [id number] Unsure of [facility] tamika, 7-08 dose. ity of vitamin D3, 00:00: [place] 1,000 unit 00 Medical tablet Branch vitamin 2018- Yes [id number] 5000ug Take 5 U nivers B-12 1,000 7-08 tablets by ity of mcg tablet 00:00: mouth [place] 00 daily. Medical Branch vitamin B-1 Yes [id number] 50mg Take 1 [facility] (VITAMIN 7-08 tablet by ity of B-1) 50 mg 00:00: mouth [place] tablet 00 daily. Medical Branch cholecalcif Yes [id number] Unsure of [facility] tamika, 7-08 dose. ity of vitamin D3, 00:00: [place] 1,000 unit 00 Medical tablet Branch vitamin 2019- Yes [id number] 5000ug Take 5 U nivers B-12 1,000 7-08 tablets by ity of mcg tablet 00:00: mouth [place] 00 daily. Medical Branch vitamin B-1 Yes [id number] 50mg Take 1 [facility] (VITAMIN 7-08 tablet by ity of B-1) 50 mg 00:00: mouth [place] tablet 00 daily. Medical Branch cholecalcif Yes [id number] Unsure of [facility] tamika, 7-08 dose. ity of vitamin D3, 00:00: [place] 1,000 unit 00 Medical tablet Branch vitamin 2019- Yes [id number] 5000ug Take 5 U nivers B-12 1,000 7-08 tablets by ity of mcg tablet 00:00: mouth [place] 00 daily. Medical Branch vitamin B-1 Yes [id number] 50mg Take 1 [facility] (VITAMIN 7-08 tablet by ity of B-1) 50 mg 00:00: mouth [place] tablet 00 daily. Medical Branch cholecalcif Yes [id number] Unsure of [facility] tamika, 7-08 dose. ity of vitamin D3, 00:00: [place] 1,000 unit 00 Medical tablet Branch vitamin 2018- Yes [id number] 5000ug Take 5 U nivers B-12 1,000 7-08 tablets by ity of mcg tablet 00:00: mouth [place] 00 daily. Medical Branch vitamin B-1 Yes [id number] 50mg Take 1 [facility] (VITAMIN 7-08 tablet by ity of B-1) 50 mg 00:00: mouth [place] tablet 00 daily. Medical Branch cholecalcif Yes [id number] Unsure of [facility] tamika, 7-08 dose. ity of vitamin D3, 00:00: [place] 1,000 unit 00 Medical tablet Branch vitamin 2018- Yes [id number] 5000ug Take 5 U nivers B-12 1,000 7-08 tablets by ity of mcg tablet 00:00: mouth [place] 00 daily. Medical Branch vitamin B-1 Yes [id number] 50mg Take 1 [facility] (VITAMIN 7-08 tablet by ity of B-1) 50 mg 00:00: mouth [place] tablet 00 daily. Medical Branch cholecalcif Yes [id number] Unsure of [facility] tamika, 7-08 dose. ity of vitamin D3, 00:00: [place] 1,000 unit 00 Medical tablet Branch vitamin 2018- Yes [id number] 5000ug Take 5 U nivers B-12 1,000 7-08 tablets by ity of mcg tablet 00:00: mouth [place] 00 daily. Medical Branch vitamin B-1 Yes [id number] 50mg Take 1 [facility] (VITAMIN 7-08 tablet by ity of B-1) 50 mg 00:00: mouth [place] tablet 00 daily. Medical Branch cholecalcif Yes [id number] Unsure of [facility] tamika, 7-08 dose. ity of vitamin D3, 00:00: [place] 1,000 unit 00 Medical tablet Branch vitamin 2019- Yes [id number] 5000ug Take 5 U nivers B-12 1,000 7-08 tablets by ity of mcg tablet 00:00: mouth [place] 00 daily. Medical Branch vitamin B-1 2019- Yes [id number] 50mg Take 1 [facility] (VITAMIN 7-08 tablet by ity of B-1) 50 mg 00:00: mouth [place] tablet 00 daily. Medical Branch turmeric Yes [id number] 1{tbl} Take 1 [facility] root 4-11 tablet by ity of extract 500 00:00: mouth [place] mg Cap 00 daily. Medical Branch turmeric Yes [id number] 1{tbl} Take 1 [facility] root 4-11 tablet by ity of extract 500 00:00: mouth [place] mg Cap 00 daily. Medical Branch turmeric Yes [id number] 1{tbl} Take 1 [facility] root 4-11 tablet by ity of extract 500 00:00: mouth [place] mg Cap 00 daily. Medical Branch turmeric Yes [id number] 1{tbl} Take 1 [facility] root 4-11 tablet by ity of extract 500 00:00: mouth [place] mg Cap 00 daily. Medical Branch turmeric Yes [id number] 1{tbl} Take 1 [facility] root 4-11 tablet by ity of extract 500 00:00: mouth [place] mg Cap 00 daily. Medical Branch turmeric Yes [id number] 1{tbl} Take 1 [facility] root 4-11 tablet by ity of extract 500 00:00: mouth [place] mg Cap 00 daily. Medical Branch turmeric Yes [id number] 1{tbl} Take 1 [facility] root 4-11 tablet by ity of extract 500 00:00: mouth [place] mg Cap 00 daily. Medical Branch turmeric Yes [id number] 1{tbl} Take 1 [facility] root 4-11 tablet by ity of extract 500 00:00: mouth [place] mg Cap 00 daily. Medical Branch turmeric Yes [id number] 1{tbl} Take 1 [facility] root 4-11 tablet by ity of extract 500 00:00: mouth [place] mg Cap 00 daily. Medical Branch turmeric Yes [id number] 1{tbl} Take 1 [facility] root 4-11 tablet by ity of extract 500 00:00: mouth [place] mg Cap 00 daily. Medical Branch turmeric Yes [id number] 1{tbl} Take 1 [facility] root 4-11 tablet by ity of extract 500 00:00: mouth [place] mg Cap 00 daily. Medical Branch turmeric Yes [id number] 1{tbl} Take 1 [facility] root 4-11 tablet by ity of extract 500 00:00: mouth [place] mg Cap 00 daily. Medical Branch turmeric Yes [id number] 1{tbl} Take 1 [facility] root 4-11 tablet by ity of extract 500 00:00: mouth [place] mg Cap 00 daily. Medical Branch turmeric Yes [id number] 1{tbl} Take 1 [facility] root 4-11 tablet by ity of extract 500 00:00: mouth [place] mg Cap 00 daily. Medical Branch turmeric Yes [id number] 1{tbl} Take 1 [facility] root 4-11 tablet by ity of extract 500 00:00: mouth [place] mg Cap 00 daily. Medical Branch turmeric Yes [id number] 1{tbl} Take 1 [facility] root 4-11 tablet by ity of extract 500 00:00: mouth [place] mg Cap 00 daily. Medical Branch turmeric Yes [id number] 1{tbl} Take 1 [facility] root 4-11 tablet by ity of extract 500 00:00: mouth [place] mg Cap 00 daily. Medical Branch turmeric Yes [id number] 1{tbl} Take 1 [facility] root 4-11 tablet by ity of extract 500 00:00: mouth [place] mg Cap 00 daily. Medical Branch turmeric Yes [id number] 1{tbl} Take 1 [facility] root 4-11 tablet by ity of extract 500 00:00: mouth [place] mg Cap 00 daily. Medical Branch turmeric Yes [id number] 1{tbl} Take 1 [facility] root 4-11 tablet by ity of extract 500 00:00: mouth [place] mg Cap 00 daily. Medical Branch turmeric Yes [id number] 1{tbl} Take 1 [facility] root 4-11 tablet by ity of extract 500 00:00: mouth [place] mg Cap 00 daily. Medical Branch turmeric Yes [id number] 1{tbl} Take 1 [facility] root 4-11 tablet by ity of extract 500 00:00: mouth [place] mg Cap 00 daily. Medical Branch turmeric Yes [id number] 1{tbl} Take 1 [facility] root 4-11 tablet by ity of extract 500 00:00: mouth [place] mg Cap 00 daily. Medical Branch turmeric Yes [id number] 1{tbl} Take 1 [facility] root 4-11 tablet by ity of extract 500 00:00: mouth [place] mg Cap 00 daily. Medical Branch turmeric Yes [id number] 1{tbl} Take 1 [facility] root 4-11 tablet by ity of extract 500 00:00: mouth [place] mg Cap 00 daily. Medical Branch turmeric Yes [id number] 1{tbl} Take 1 [facility] root 4-11 tablet by ity of extract 500 00:00: mouth [place] mg Cap 00 daily. Medical Branch turmeric Yes [id number] 1{tbl} Take 1 [facility] root 4-11 tablet by ity of extract 500 00:00: mouth [place] mg Cap 00 daily. Medical Branch turmeric Yes [id number] 1{tbl} Take 1 [facility] root 4-11 tablet by ity of extract 500 00:00: mouth [place] mg Cap 00 daily. Medical Branch turmeric Yes [id number] 1{tbl} Take 1 [facility] root 4-11 tablet by ity of extract 500 00:00: mouth [place] mg Cap 00 daily. Medical Branch turmeric Yes [id number] 1{tbl} Take 1 [facility] root 4-11 tablet by ity of extract 500 00:00: mouth [place] mg Cap 00 daily. Medical Branch turmeric Yes [id number] 1{tbl} Take 1 [facility] root 4-11 tablet by ity of extract 500 00:00: mouth [place] mg Cap 00 daily. Medical Branch Insulin Yes Check [facility] Syringes, 1-22 Fingerstic ity of Disposable, 00:00: k blood [place] 1 mL Syrg 00 glucose Medical qid. Branch Please dispense the relion syringes. RX#[id number] 4 ICD-E11.9 Insulin Yes Check [facility] Syringes, 1-22 [facility]inger[facility] ity of Disposable, 00:00: k blood [place] 1 mL Syrg 00 glucose Medical qid. Branch Please dispense the relion syringes. RX#[id number] 4 ICD-E11.9 Insulin 2017- Yes Check [facility] Syringes, 1-22 [facility]ingerstic ity of Disposable, 00:00: k blood [place] 1 mL Syrg 00 glucose Medical qid. Branch Please dispense the relion syringes. RX#[id number] 4 ICD-E11.9 Insulin Yes Check [facility] Syringes, 1-22 Fingerstic ity of Disposable, 00:00: k blood [place] 1 mL Syrg 00 glucose Medical qid. Branch Please dispense the relion syringes. RX#[id number] 4 ICD-E11.9 Insulin Yes Check [facility] Syringes, 1-22 [facility]ingerstic ity of Disposable, 00:00: k blood [place] 1 mL Syrg 00 glucose Medical qid. Branch Please dispense the relion syringes. RX#[id number] 4 ICD-E11.9 Insulin Yes Check [facility] Syringes, 1-22 Fingerstic ity of Disposable, 00:00: k blood [place] 1 mL Syrg 00 glucose Medical qid. Branch Please dispense the relion syringes. RX#[id number] 4 ICD-E11.9 Insulin Yes Check [facility] Syringes, 1-22 Fingerstic ity of Disposable, 00:00: k blood [place] 1 mL Syrg 00 glucose Medical qid. Branch Please dispense the relion syringes. RX#[id number] 4 ICD-E11.9 Insulin Yes Check [facility] Syringes, 1-22 Fingerstic ity of Disposable, 00:00: k blood [place] 1 mL Syrg 00 glucose Medical qid. Branch Please dispense the relion syringes. RX#[id number] 4 ICD-E11.9 Insulin Yes Check [facility] Syringes, 1-22 [facility]inger[facility] ity of Disposable, 00:00: k blood [place] 1 mL Syrg 00 glucose Medical qid. Branch Please dispense the relion syringes. RX#[id number] 4 ICD-E11.9 Insulin Yes Check [facility] Syringes, 1-22 Fingerstic ity of Disposable, 00:00: k blood [place] 1 mL Syrg 00 glucose Medical qid. Branch Please dispense the relion syringes. RX#[id number] ICD-E11.9 Insulin Yes Check [facility] Syringes, 1-22 [facility]ingerstic ity of Disposable, 00:00: k blood [place] 1 mL Syrg 00 glucose Medical qid. Branch Please dispense the relion syringes. RX#[id number] 4 ICD-E11.9 Insulin 0 Yes Check [facility] Syringes, 1-22 [facility]inger[facility] ity of Disposable, 00:00: k blood [place] 1 mL Syrg 00 glucose Medical qid. Branch Please dispense the relion syringes. RX#[id number] 4 ICD-E11.9 Insulin Yes Check [facility] Syringes, 1-22 [facility]inger[facility] ity of Disposable, 00:00: k blood [place] 1 mL Syrg 00 glucose Medical qid. Branch Please dispense the relion syringes. RX#[id number] 4 ICD-E11.9 Insulin Yes Check [facility] Syringes, 1-22 Fingerstic ity of Disposable, 00:00: k blood [place] 1 mL Syrg 00 glucose Medical qid. Branch Please dispense the relion syringes. RX#[id number] 4 ICD-E11.9 Insulin Yes Check [facility] Syringes, 1-22 Fingerstic ity of Disposable, 00:00: k blood [place] 1 mL Syrg 00 glucose Medical qid. Branch Please dispense the relion syringes. RX#[id number] 4 ICD-E11.9 Insulin Yes Check [facility] Syringes, 1-22 Fingerstic ity of Disposable, 00:00: k blood [place] 1 mL Syrg 00 glucose Medical qid. Branch Please dispense the relion syringes. RX#[id number] 4 ICD-E11.9 Insulin Yes Check [facility] Syringes, 1-22 Fingerstic ity of Disposable, 00:00: k blood [place] 1 mL Syrg 00 glucose Medical qid. Branch Please dispense the relion syringes. RX#[id number] 4 ICD-E11.9 Insulin Yes Check [facility] Syringes, 1-22 Fingerstic ity of Disposable, 00:00: k blood [place] 1 mL Syrg 00 glucose Medical qid. Branch Please dispense the relion syringes. RX#[id number] 4 ICD-E11.9 Insulin Yes Check [facility] Syringes, 1-22 Fingerstic ity of Disposable, 00:00: k blood [place] 1 mL Syrg 00 glucose Medical qid. Branch Please dispense the relion syringes. RX#[id number] ICD-E11.9 Insulin Yes Check [facility] Syringes, 1-22 Fingerstic ity of Disposable, 00:00: k blood [place] 1 mL Syrg 00 glucose Medical qid. Branch Please dispense the relion syringes. RX#[id number] 4 ICD-E11.9 Insulin Yes Check [facility] Syringes, 1-22 Fingerstic ity of Disposable, 00:00: k blood [place] 1 mL Syrg 00 glucose Medical qid. Branch Please dispense the relion syringes. RX#[id number] 4 ICD-E11.9 Insulin Yes Check [facility] Syringes, 1-22 Fingerstic ity of Disposable, 00:00: k blood [place] 1 mL Syrg 00 glucose Medical qid. Branch Please dispense the relion syringes. RX#[id number] 4 ICD-E11.9 Insulin Yes Check [facility] Syringes, 1-22 Fingerstic ity of Disposable, 00:00: k blood [place] 1 mL Syrg 00 glucose Medical qid. Branch Please dispense the relion syringes. RX#[id number] ICD-E11.9 Insulin Yes Check [facility] Syringes, 1-22 Fingerstic ity of Disposable, 00:00: k blood [place] as 1 mL Syrg 00 glucose Medical qid. Branch Please dispense the relion syringes. RX#[id number] 4 ICD-E11.9 Insulin Yes Check [facility] Syringes, 1-22 Fingerstic ity of Disposable, 00:00: k blood [place] as 1 mL Syrg 00 glucose Medical qid. Branch Please dispense the relion syringes. RX#[id number] 4 ICD-E11.9 Insulin Yes Check [facility] Syringes, 1-22 Fingerstic ity of Disposable, 00:00: k blood [place] as 1 mL Syrg 00 glucose Medical qid. Branch Please dispense the relion syringes. RX#[id number] 4 ICD-E11.9 Insulin Yes Check [facility] Syringes, 1-22 Fingerstic ity of Disposable, 00:00: k blood [place] 1 mL Syrg 00 glucose Medical qid. Branch Please dispense the relion syringes. RX#[id number] ICD-E11.9 Insulin Yes Check [facility] Syringes, 1-22 Fingerstic ity of Disposable, 00:00: k blood [place] as 1 mL Syrg 00 glucose Medical qid. Branch Please dispense the relion syringes. RX#[id number] 4 ICD-E11.9 Insulin Yes Check [facility] Syringes, 1-22 Fingerstic ity of Disposable, 00:00: k blood [place] as 1 mL Syrg 00 glucose Medical qid. Branch Please dispense the relion syringes. RX#[id number] 4 ICD-E11.9 Insulin Yes Check [facility] Syringes, 1-22 Fingerstic ity of Disposable, 00:00: k blood [place] 1 mL Syrg 00 glucose Medical qid. Branch Please dispense the relion syringes. RX#[id number] 4 ICD-E11.9 Insulin Yes Check [facility] Syringes, 1-22 Fingerstic ity of Disposable, 00:00: k blood [place] 1 mL Syrg 00 glucose Medical qid. Branch Please dispense the relion syringes. RX#[id number] ICD-E11.9 Lancets & 2013-0 Yes [id number] Univ ers Blood 8-12 ity of Glucose 00:00: [place] Strips (ONE 00 Medical TOUCH Branch COMBO) Cmpk Lancets & 2013-0 Yes [id number] Univ ers Blood 8-12 ity of Glucose 00:00: [place] Strips (ONE 00 Medical TOUCH Branch COMBO) Cmpk Lancets & 2013-0 Yes [id number] Univ ers Blood 8-12 ity of Glucose 00:00: [place] Strips ( 00 Medical TOUCH Branch COMBO) Cmpk Lancets & 2013-0 Yes [id number] Univ ers Blood 8-12 ity of Glucose 00:00: [place] Strips (ONE 00 Medical TOUCH Branch COMBO) Cmpk Lancets & 2013-0 Yes [id number] Univ ers Blood 8-12 ity of Glucose 00:00: [place] Strips (ONE 00 Medical TOUCH Branch COMBO) Cmpk Lancets & 2013-0 Yes [id number] Univ ers Blood 8-12 ity of Glucose 00:00: [place] Strips (ONE 00 Medical TOUCH Branch COMBO) Cmpk Lancets & 2013-0 Yes [id number] Univ ers Blood 8-12 ity of Glucose 00:00: [place] Strips (ONE 00 Medical TOUCH Branch COMBO) Cmpk Lancets & 2013-0 Yes [id number] Univ ers Blood 8-12 ity of Glucose 00:00: [place] Strips (ONE 00 Medical TOUCH Branch COMBO) Cmpk Lancets & 2013-0 Yes [id number] Univ ers Blood 8-12 ity of Glucose 00:00: [place] Strips (ONE 00 Medical TOUCH Branch COMBO) Cmpk Lancets & 2013-0 Yes [id number] Univ ers Blood 8-12 ity of Glucose 00:00: [place] Strips (ONE 00 Medical TOUCH Branch COMBO) Cmpk Lancets & 2013-0 Yes [id number] Univ ers Blood 8-12 ity of Glucose 00:00: [place] Strips (ONE 00 Medical TOUCH Branch COMBO) Cmpk Lancets & 2013-0 Yes [id number] Univ ers Blood 8-12 ity of Glucose 00:00: [place] Strips (ONE 00 Medical TOUCH Branch COMBO) Cmpk Lancets & 2012-0 Yes [id number] Univ ers Blood 8-12 ity of Glucose 00:00: [place] Strips ( 00 Medical TOUCH Branch COMBO) Cmpk Lancets & 2013-0 Yes [id number] Univ ers Blood 8-12 ity of Glucose 00:00: [place] Strips ( 00 Medical TOUCH Branch COMBO) Cmpk Lancets & 2012-0 Yes [id number] Univ ers Blood 8-12 ity of Glucose 00:00: [place] Strips (ONE 00 Medical TOUCH Branch COMBO) Cmpk Lancets & 2012-0 Yes [id number] Univ ers Blood 8-12 ity of Glucose 00:00: [place] Strips ( 00 Medical TOUCH Branch COMBO) Cmpk Lancets & 2013-0 Yes [id number] Univ ers Blood 8-12 ity of Glucose 00:00: [place] Strips (ONE 00 Medical TOUCH Branch COMBO) Cmpk Lancets & 2013-0 Yes [id number] Univ ers Blood 8-12 ity of Glucose 00:00: [place] Strips (ONE 00 Medical TOUCH Branch COMBO) Cmpk Lancets & 2013-0 Yes [id number] Univ ers Blood 8-12 ity of Glucose 00:00: [place] Strips (ONE 00 Medical TOUCH Branch COMBO) Cmpk Lancets & 2013-0 Yes [id number] Univ ers Blood 8-12 ity of Glucose 00:00: [place] Strips ( 00 Medical TOUCH Branch COMBO) Cmpk Lancets & 2012-0 Yes [id number] Univ ers Blood 8-12 ity of Glucose 00:00: [place] Strips (ONE 00 Medical TOUCH Branch COMBO) Cmpk Lancets & 2013-0 Yes [id number] Univ ers Blood 8-12 ity of Glucose 00:00: [place] Strips (ONE 00 Medical TOUCH Branch COMBO) Cmpk Lancets & 2013-0 Yes [id number] Univ ers Blood 8-12 ity of Glucose 00:00: [place] Strips (ONE 00 Medical TOUCH Branch COMBO) Cmpk Lancets & 2013-0 Yes [id number] Univ ers Blood 8-12 ity of Glucose 00:00: [place] Strips (ONE 00 Medical TOUCH Branch COMBO) Cmpk Lancets & 2013-0 Yes [id number] Univ ers Blood 8-12 ity of Glucose 00:00: [place] Strips (ONE 00 Medical TOUCH Branch COMBO) Cmpk Lancets & 2013-0 Yes [id number] Univ ers Blood 8-12 ity of Glucose 00:00: [place] Strips (ONE 00 Medical TOUCH Branch COMBO) Cmpk Lancets & 2013-0 Yes [id number] Univ ers Blood 8-12 ity of Glucose 00:00: [place] Strips (ONE 00 Medical TOUCH Branch COMBO) Cmpk Lancets & 2013-0 Yes [id number] Univ ers Blood 8-12 ity of Glucose 00:00: [place] Strips (ONE 00 Medical TOUCH Branch COMBO) Cmpk Lancets & 2013-0 Yes [id number] Univ ers Blood 8-12 ity of Glucose 00:00: [place] Strips (ONE 00 Medical TOUCH Branch COMBO) Cmpk Lancets & 2013-0 Yes [id number] Univ ers Blood 8-12 ity of Glucose 00:00: [place] Strips (ONE 00 Medical TOUCH Branch COMBO) Cmpk Lancets & 2013-0 Yes [id number] Univ ers Blood 8-12 ity of Glucose 00:00: [place] Strips (ONE 00 Medical TOUCH Branch COMBO) Cmpk Cushion 2011-02 Yes [id number] Univer s (CERVICAL 1-26 ity of PILLOW/COVE 00:00: [place] [facility] [place] [facility] [place] 2011-02 Yes [id number] Univer s (CERVICAL 1-26 ity of PILLOW/COVE 00:00: [place] R) Mis 00 Medical Branch Cushion 2011-02 Yes [id number] Univer s (CERVICAL 1-26 ity of PILLOW/COVE 00:00: [place] R) Mis 00 Medical Branch Cushion 2011-02 Yes [id number] Univer s (CERVICAL 1-26 ity of PILLOW/COVE 00:00: [place] R) Mis 00 Medical Branch Cushion 2011-02 Yes [id number] Univer s (CERVICAL 1-26 ity of PILLOW/COVE 00:00: [place] R) Mis 00 Medical Branch Cushion 2011-02 Yes [id number] Univer s (CERVICAL 1-26 ity of PILLOW/COVE 00:00: [place] R) Mis 00 Medical Branch Cushion 2011-02 Yes [id number] Univer s (CERVICAL 1-26 ity of PILLOW/COVE 00:00: [place] R) Mis Medical Branch Cushion 2011-02 Yes [id number] Univer s (CERVICAL 1-26 ity of PILLOW/COVE 00:00: [place] R) Mis Medical Branch Cushion 2011-02 Yes [id number] Univer s (CERVICAL 1-26 ity of PILLOW/COVE 00:00: [place] R) Mis 00 Medical Branch Cushion 2011-02 Yes [id number] Univer s (CERVICAL 1-26 ity of PILLOW/COVE 00:00: [place] R) Mis 00 Medical Branch Cushion 2011-02 Yes [id number] Univer s (CERVICAL 1-26 ity of PILLOW/COVE 00:00: [place] R) Mis Medical Branch Cushion 2011-02 Yes [id number] Univer s (CERVICAL 1-26 ity of PILLOW/COVE 00:00: [place] R) Mis 00 Medical Branch Cushion 2011-02 Yes [id number] Univer s (CERVICAL 1-26 ity of PILLOW/COVE 00:00: [place] R) Mis 00 Medical Branch Cushion 2011-02 Yes [id number] Univer s (CERVICAL 1-26 ity of PILLOW/COVE 00:00: [place] R) Mis 00 Medical Branch Cushion 2011-02 Yes [id number] Univer s (CERVICAL 1-26 ity of PILLOW/COVE 00:00: [place] R) Mis 00 Medical Branch Cushion 2011-02 Yes [id number] Univer s (CERVICAL 1-26 ity of PILLOW/COVE 00:00: [place] R) Mis 00 Medical Branch Cushion 2011-02 Yes [id number] Univer s (CERVICAL 1-26 ity of PILLOW/COVE 00:00: [place] R) Mis 00 Medical Branch Cushion 2011-02 Yes [id number] Univer s (CERVICAL 1-26 ity of PILLOW/COVE 00:00: [place] R) Mis 00 Medical Branch Cushion 2011-02 Yes [id number] Univer s (CERVICAL 1-26 ity of PILLOW/COVE 00:00: [place] R) Mis 00 Medical Branch Cushion 2011-02 Yes [id number] Univer s (CERVICAL 1-26 ity of PILLOW/COVE 00:00: [place] R) Mis 00 Medical Branch Cushion 2011-02 Yes [id number] Univer s (CERVICAL 1-26 ity of PILLOW/COVE 00:00: [place] R) Mis Medical Branch Cushion 2011-02 Yes [id number] Univer s (CERVICAL 1-26 ity of PILLOW/COVE 00:00: [place] R) Mis 00 Medical Branch Cushion 2011-02 Yes [id number] Univer s (CERVICAL 1-26 ity of PILLOW/COVE 00:00: [place] R) Mis 00 Medical Branch Cushion 2011-02 Yes [id number] Univer s (CERVICAL 1-26 ity of PILLOW/COVE 00:00: [place] R) Mis 00 Medical Branch Cushion 2011-02 Yes [id number] Univer s (CERVICAL 1-26 ity of PILLOW/COVE 00:00: [place] R) Mis 00 Medical Branch Cushion 2011-02 Yes [id number] Univer s (CERVICAL 1-26 ity of PILLOW/COVE 00:00: [place] R) Mis 00 Medical Branch Cushion 2011-02 Yes [id number] Univer s (CERVICAL 1-26 ity of PILLOW/COVE 00:00: [place] R) Mis 00 Medical Branch Cushion 2011-02 Yes [id number] Univer s (CERVICAL 1-26 ity of PILLOW/COVE 00:00: [place] R) Mis 00 Medical Branch Cushion 2011-02 Yes [id number] Univer s (CERVICAL 1-26 ity of PILLOW/COVE 00:00: [place] R) Mis 00 Medical Branch Cushion 2011-02 Yes [id number] Univer s (CERVICAL 1-26 ity of PILLOW/COVE 00:00: [place] R) [place] [address] Medical Branch Cushion 2012- Yes [id number] Univer s (CERVICAL 1- ity of PILLOW/COVE 00:00: [place] R) [address] Branch Lantus Lantus No QD [facility] [...] Immunizations Ordered Filled Immunization Date Status Comments Sourc e Immunization Name Name FluAD FluAD 2020-12-14 Completed [facility] - 08:30:00 [facility] FluAD FluAD 2020-12-14 Completed [facility] - 08:30:00 [facility] FluAD FluAD 2020-12-14 Completed [facility] - 08:30:00 [facility] FluAD FluAD 2020-12-14 Completed [facility] - 08:30:00 [facility] FluAD FluAD 2020-12-14 Completed [facility] - 08:30:00 [facility] FluAD FluAD 2020-12-14 Completed [facility] - 08:30:00 [facility] FluAD FluAD 2020-12-14 Completed [facility] - 08:30:00 [facility] FluAD FluAD 2020-12-14 Completed [facility] - 08:30:00 [facility] FluAD FluAD 2020-12-14 Completed [facility] - 08:30:00 [facility] FluAD FluAD 2020-12-14 Completed [facility] - 08:30:00 [facility] FluAD FluAD 2020-12-14 Completed [facility] - 08:30:00 [facility] FluAD FluAD 2020-12-14 Completed [facility] - 08:30:00 [facility] FluAD FluAD 2020-12-14 Completed [facility] - 08:30:00 [facility] FluAD FluAD 2020-12-14 Completed [facility] - 08:30:00 [facility] FluAD FluAD 2020-12-14 Completed [facility] - 08:30:00 [facility] FluAD FluAD 2020-12-14 Completed [facility] - 08:30:00 [facility] FluAD FluAD 2020-12-14 Completed [facility] - 08:30:00 [facility] FluAD FluAD 2020-12-14 Completed [facility] - 08:30:00 [facility] FluAD FluAD 2020-12-14 Completed [facility] - 08:30:00 [facility] FluAD FluAD 2020-12-14 Completed [facility] - 08:30:00 [facility] FluAD FluAD 2020-12-14 Completed [facility] - 08:30:00 [facility] FluAD FluAD 2020-12-14 Completed [facility] - 08:30:00 [facility] FluAD FluAD 2020-12-14 Completed [facility] - 08:30:00 [facility] SARS-COV-2 COVID-19 2020-04-12 Completed Unive rsity of PFIZER VACCINE 00:00:00 [facility] [place] SARS-COV-2 COVID-19 2020-04-12 Completed Unive rsity of PFIZER VACCINE 00:00:00 [facility] [place] SARS-COV-2 COVID-19 2020-04-12 Completed Unive rsity of PFIZER VACCINE 00:00:00 [facility] [place] SARS-COV-2 COVID-19 2020-04-12 Completed Unive rsity of PFIZER VACCINE 00:00:00 [facility] [place] SARS-COV-2 COVID-19 2020-04-12 Completed Unive rsity of PFIZER VACCINE 00:00:00 [facility] [place] SARS-COV-2 COVID-19 2020-04-12 Completed Unive rsity of PFIZER VACCINE 00:00:00 [facility] [place] SARS-COV-2 COVID-19 2020-04-12 Completed Unive rsity of PFIZER VACCINE 00:00:00 [place] [facility] SARS-COV-2 COVID-19 2020-04-12 Completed Unive rsity of PFIZER VACCINE 00:00:00 [facility] [facility] SARS-COV-2 COVID-19 2020-04-12 Completed [facility] PFIZER VACCINE 00:00:00 [facility] SARS-COV-2 COVID-19 2020-04-12 Completed [facility] PFIZER VACCINE 00:00:00 [facility] SARS-COV-2 COVID-19 2020-04-12 Completed [facility] PFIZER VACCINE 00:00:00 [facility] SARS-COV-2 COVID-19 2020-04-12 Completed [facility] PFIZER VACCINE 00:00:00 [facility] SARS-COV-2 COVID-19 2020-04-12 Completed [facility] PFIZER VACCINE 00:00:00 [facility] SARS-COV-2 COVID-19 2020-04-12 Completed [facility] PFIZER VACCINE 00:00:00 [facility] SARS-COV-2 COVID-19 2020-04-12 Completed [facility] PFIZER VACCINE 00:00:00 [facility] SARS-COV-2 COVID-19 2020-04-12 Completed [facility] PFIZER VACCINE 00:00:00 [facility] SARS-COV-2 COVID-19 2020-04-12 Completed [facility] PFIZER VACCINE 00:00:00 [facility] SARS-COV-2 COVID-19 2020-04-12 Completed [facility] PFIZER VACCINE 00:00:00 [facility] SARS-COV-2 COVID-19 2020-04-12 Completed [facility] PFIZER VACCINE 00:00:00 [facility] SARS-COV-2 COVID-19 2020-04-12 Completed [facility] PFIZER VACCINE 00:00:00 [facility] SARS-COV-2 COVID-19 2020-04-12 Completed [facility] PFIZER VACCINE 00:00:00 [facility] SARS-COV-2 COVID-19 2020-04-12 Completed [facility] PFIZER VACCINE 00:00:00 [facility] SARS-COV-2 COVID-19 2020-04-12 Completed [facility] PFIZER VACCINE 00:00:00 [facility] SARS-COV-2 COVID-19 2020-04-12 Completed [facility] PFIZER VACCINE 00:00:00 [facility] SARS-COV-2 COVID-19 2020-04-12 Completed [facility] PFIZER VACCINE 00:00:00 [facility] SARS-COV-2 COVID-19 2020-04-12 Completed [facility] PFIZER VACCINE 00:00:00 [facility] SARS-COV-2 COVID-19 2020-04-12 Completed [facility] PFIZER VACCINE 00:00:00 [facility] SARS-COV-2 COVID-19 2020-04-12 Completed [facility] PFIZER VACCINE 00:00:00 [facility] SARS-COV-2 COVID-19 2020-04-12 Completed [facility] PFIZER VACCINE 00:00:00 [facility] SARS-COV-2 COVID-19 2020-04-12 Completed [facility] PFIZER VACCINE 00:00:00 [facility] SARS-COV-2 COVID-19 2020-04-12 Completed [facility] PFIZER VACCINE 00:00:00 [facility] SARS-COV-2 COVID-19 2020-03-15 Completed [facility] PFIZER VACCINE 00:00:00 [facility] SARS-COV-2 COVID-19 2020-03-15 Completed [facility] PFIZER VACCINE 00:00:00 [facility] SARS-COV-2 COVID-19 2020-03-15 Completed [facility] PFIZER VACCINE 00:00:00 [facility] SARS-COV-2 COVID-19 2020-03-15 Completed [facility] PFIZER VACCINE 00:00:00 [facility] SARS-COV-2 COVID-19 2020-03-15 Completed [facility] PFIZER VACCINE 00:00:00 [facility] SARS-COV-2 COVID-19 2020-03-15 Completed [facility] PFIZER VACCINE 00:00:00 [facility] SARS-COV-2 COVID-19 2020-03-15 Completed [facility] PFIZER VACCINE 00:00:00 [facility] SARS-COV-2 COVID-19 2020-03-15 Completed [facility] PFIZER VACCINE 00:00:00 [facility] SARS-COV-2 COVID-19 2020-03-15 Completed [facility] PFIZER VACCINE 00:00:00 [facility] SARS-COV-2 COVID-19 2020-03-15 Completed [facility] PFIZER VACCINE 00:00:00 [facility] SARS-COV-2 COVID-19 2020-03-15 Completed [facility] PFIZER VACCINE 00:00:00 [facility] SARS-COV-2 COVID-19 2020-03-15 Completed [facility] PFIZER VACCINE 00:00:00 [facility] SARS-COV-2 COVID-19 2020-03-15 Completed [facility] PFIZER VACCINE 00:00:00 [facility] SARS-COV-2 COVID-19 2020-03-15 Completed [facility] PFIZER VACCINE 00:00:00 [facility] SARS-COV-2 COVID-19 2020-03-15 Completed [facility] PFIZER VACCINE 00:00:00 [facility] SARS-COV-2 COVID-19 2020-03-15 Completed [facility] PFIZER VACCINE 00:00:00 [facility] SARS-COV-2 COVID-19 2020-03-15 Completed [facility] PFIZER VACCINE 00:00:00 [facility] SARS-COV-2 COVID-19 2020-03-15 Completed [facility] PFIZER VACCINE 00:00:00 [facility] SARS-COV-2 COVID-19 2020-03-15 Completed [facility] PFIZER VACCINE 00:00:00 [facility] SARS-COV-2 COVID-19 2020-03-15 Completed [facility] PFIZER VACCINE 00:00:00 [facility] SARS-COV-2 COVID-19 2020-03-15 Completed [facility] PFIZER VACCINE 00:00:00 [facility] SARS-COV-2 COVID-19 2020-03-15 Completed [facility] PFIZER VACCINE 00:00:00 [facility] SARS-COV-2 COVID-19 2020-03-15 Completed [facility] PFIZER VACCINE 00:00:00 [facility] SARS-COV-2 COVID-19 2020-03-15 Completed [facility] PFIZER VACCINE 00:00:00 [facility] SARS-COV-2 COVID-19 2020-03-15 Completed [facility] PFIZER VACCINE 00:00:00 [facility] SARS-COV-2 COVID-19 2020-03-15 Completed [facility] PFIZER VACCINE 00:00:00 [facility] SARS-COV-2 COVID-19 2020-03-15 Completed [facility] PFIZER VACCINE 00:00:00 [facility] SARS-COV-2 COVID-19 2020-03-15 Completed [facility] PFIZER VACCINE 00:00:00 [facility] SARS-COV-2 COVID-19 2020-03-15 Completed [facility] PFIZER VACCINE 00:00:00 [facility] SARS-COV-2 COVID-19 2020-03-15 Completed [facility] PFIZER VACCINE 00:00:00 [facility] SARS-COV-2 COVID-19 2020-03-15 Completed [facility] PFIZER VACCINE 00:00:00 [facility] Zoster Vaccine 2018-11-13 Completed [facility] Recombinant 00:00:00 [facility] Zoster Vaccine 2018-11-13 Completed [facility] Recombinant 00:00:00 [facility] Zoster Vaccine 2018-11-13 Completed [facility] Recombinant 00:00:00 [facility] Zoster Vaccine 2018-11-13 Completed [facility] Recombinant 00:00:00 [facility] Zoster Vaccine 2018-11-13 Completed [facility] Recombinant 00:00:00 [facility] Zoster Vaccine 2018-11-13 Completed [facility] Recombinant 00:00:00 [facility] Zoster Vaccine 2018-11-13 Completed [facility] Recombinant 00:00:00 [facility] Zoster Vaccine 2018-11-13 Completed [facility] Recombinant 00:00:00 [facility] Zoster Vaccine 2018-11-13 Completed [facility] Recombinant 00:00:00 [facility] Zoster Vaccine 2018-11-13 Completed [facility] Recombinant 00:00:00 [facility] Zoster Vaccine 2018-11-13 Completed [facility] Recombinant 00:00:00 [facility] Zoster Vaccine 2018-11-13 Completed [facility] Recombinant 00:00:00 [facility] Zoster Vaccine 2018-11-13 Completed [facility] Recombinant 00:00:00 [facility] Zoster Vaccine 2018-11-13 Completed [facility] Recombinant 00:00:00 [facility] Zoster Vaccine 2018-11-13 Completed [facility] Recombinant 00:00:00 [facility] Zoster Vaccine 2018-11-13 Completed [facility] Recombinant 00:00:00 [facility] Zoster Vaccine 2018-11-13 Completed [facility] Recombinant 00:00:00 [facility] Zoster Vaccine 2018-11-13 Completed [facility] Recombinant 00:00:00 [facility] Zoster Vaccine 2018-11-13 Completed [facility] Recombinant 00:00:00 [facility] Zoster Vaccine 2018-11-13 Completed [facility] Recombinant 00:00:00 [facility] Zoster Vaccine 2018-11-13 Completed [facility] Recombinant 00:00:00 [facility] Zoster Vaccine 2018-11-13 Completed [facility] Recombinant 00:00:00 [facility] Zoster Vaccine 2018-11-13 Completed [facility] Recombinant 00:00:00 [facility] Zoster Vaccine 2018-11-13 Completed [facility] Recombinant 00:00:00 [facility] Zoster Vaccine 2018-11-13 Completed [facility] Recombinant 00:00:00 [facility] Zoster Vaccine 2018-11-13 Completed [facility] Recombinant 00:00:00 [facility] Zoster Vaccine 2018-11-13 Completed [facility] Recombinant 00:00:00 [facility] Zoster Vaccine 2018-11-13 Completed [facility] Recombinant 00:00:00 [facility] Zoster Vaccine 2018-11-13 Completed [facility] Recombinant 00:00:00 [facility] Zoster Vaccine 2018-11-13 Completed [facility] Recombinant 00:00:00 [facility] Zoster Vaccine 2018-11-13 Completed [facility] Recombinant 00:00:00 [facility] Influenza Virus 2018-11-10 Completed [facility] Vaccine 00:00:00 [facility] Influenza Virus 2018-11-10 Completed [facility] Vaccine 00:00:00 [facility] Influenza Virus 2018-11-10 Completed [facility] Vaccine 00:00:00 [facility] Influenza Virus 2018-11-10 Completed [facility] Vaccine 00:00:00 [facility] Influenza Virus 2018-11-10 Completed [facility] Vaccine 00:00:00 [facility] Influenza Virus 2018-11-10 Completed [facility] Vaccine 00:00:00 [facility] Influenza Virus 2018-11-10 Completed [facility] Vaccine 00:00:00 [facility] Influenza Virus 2018-11-10 Completed [facility] Vaccine 00:00:00 [facility] Influenza Virus 2018-11-10 Completed [facility] Vaccine 00:00:00 [facility] Influenza Virus 2018-11-10 Completed [facility] Vaccine 00:00:00 [facility] Influenza Virus 2018-11-10 Completed [facility] Vaccine 00:00:00 [facility] Influenza Virus 2018-11-10 Completed [facility] Vaccine 00:00:00 [facility] Influenza Virus 2018-11-10 Completed [facility] Vaccine 00:00:00 [facility] Influenza Virus 2018-11-10 Completed [facility] Vaccine 00:00:00 [facility] Influenza Virus 2018-11-10 Completed [facility] Vaccine 00:00:00 [facility] Influenza Virus 2018-11-10 Completed [facility] Vaccine 00:00:00 [facility] Influenza Virus 2018-11-10 Completed [facility] Vaccine 00:00:00 [facility] Influenza Virus 2018-11-10 Completed [facility] Vaccine 00:00:00 [facility] Influenza Virus 2018-11-10 Completed [facility] Vaccine 00:00:00 [facility] Influenza Virus 2018-11-10 Completed [facility] Vaccine 00:00:00 [facility] Influenza Virus 2018-11-10 Completed [facility] Vaccine 00:00:00 [facility] Influenza Virus 2018-11-10 Completed [facility] Vaccine 00:00:00 [facility] Influenza Virus 2018-11-10 Completed [facility] Vaccine 00:00:00 [facility] Influenza Virus 2018-11-10 Completed [facility] Vaccine 00:00:00 [facility] Influenza Virus 2018-11-10 Completed [facility] Vaccine 00:00:00 [facility] Influenza Virus 2018-11-10 Completed [facility] Vaccine 00:00:00 [facility] Influenza Virus 2018-11-10 Completed [facility] Vaccine 00:00:00 [facility] Influenza Virus 2018-11-10 Completed [facility] Vaccine 00:00:00 [facility] Influenza Virus 2018-11-10 Completed [facility] Vaccine 00:00:00 [facility] Influenza Virus 2018-11-10 Completed [facility] Vaccine 00:00:00 [facility] Influenza Virus 2018-11-10 Completed [facility] Vaccine 00:00:00 [facility] Zoster Vaccine 2018-09-12 Completed [facility] Recombinant 00:00:00 [facility] Zoster Vaccine 2018-09-12 Completed [facility] Recombinant 00:00:00 [facility] Zoster Vaccine 2018-09-12 Completed [facility] Recombinant 00:00:00 [facility] Zoster Vaccine 2018-09-12 Completed [facility] Recombinant 00:00:00 [facility] Zoster Vaccine 2018-09-12 Completed [facility] Recombinant 00:00:00 [facility] Zoster Vaccine 2018-09-12 Completed [facility] Recombinant 00:00:00 [facility] Zoster Vaccine 2018-09-12 Completed [facility] Recombinant 00:00:00 [facility] Zoster Vaccine 2018-09-12 Completed [facility] Recombinant 00:00:00 [facility] Zoster Vaccine 2018-09-12 Completed [facility] Recombinant 00:00:00 [facility] Zoster Vaccine 2018-09-12 Completed [facility] Recombinant 00:00:00 [facility] Zoster Vaccine 2018-09-12 Completed [facility] Recombinant 00:00:00 [facility] Zoster Vaccine 2018-09-12 Completed [facility] Recombinant 00:00:00 [facility] Zoster Vaccine 2018-09-12 Completed [facility] Recombinant 00:00:00 [facility] Zoster Vaccine 2018-09-12 Completed [facility] Recombinant 00:00:00 [facility] Zoster Vaccine 2018-09-12 Completed [facility] Recombinant 00:00:00 [facility] Zoster Vaccine 2018-09-12 Completed [facility] Recombinant 00:00:00 [facility] Zoster Vaccine 2018-09-12 Completed [facility] Recombinant 00:00:00 [facility] Zoster Vaccine 2018-09-12 Completed [facility] Recombinant 00:00:00 [facility] Zoster Vaccine 2018-09-12 Completed [facility] Recombinant 00:00:00 [facility] Zoster Vaccine 2018-09-12 Completed [facility] Recombinant 00:00:00 [facility] Zoster Vaccine 2018-09-12 Completed [facility] Recombinant 00:00:00 [facility] Zoster Vaccine 2018-09-12 Completed [facility] Recombinant 00:00:00 [facility] Zoster Vaccine 2018-09-12 Completed [facility] Recombinant 00:00:00 [facility] Zoster Vaccine 2018-09-12 Completed [facility] Recombinant 00:00:00 [facility] Zoster Vaccine 2018-09-12 Completed [facility] Recombinant 00:00:00 [facility] Zoster Vaccine 2018-09-12 Completed [facility] Recombinant 00:00:00 [facility] Zoster Vaccine 2018-09-12 Completed [facility] Recombinant 00:00:00 [facility] Zoster Vaccine 2018-09-12 Completed [facility] Recombinant 00:00:00 [facility] Zoster Vaccine 2018-09-12 Completed [facility] Recombinant 00:00:00 [facility] Zoster Vaccine 2018-09-12 Completed [facility] Recombinant 00:00:00 [facility] Zoster Vaccine 2018-09-12 Completed [facility] Recombinant 00:00:00 [facility] Influenza Virus 2017-10-28 Completed [facility] Vaccine - Whole 00:00:00 [facility] Influenza Virus 2017-10-28 Completed [facility] Vaccine - Whole 00:00:00 [facility] Influenza Virus 2017-10-28 Completed [facility] Vaccine - Whole 00:00:00 [facility] Influenza Virus 2017-10-28 Completed [facility] Vaccine - Whole 00:00:00 [facility] Influenza Virus 2017-10-28 Completed [facility] Vaccine - Whole 00:00:00 [facility] Influenza Virus 2017-10-28 Completed [facility] Vaccine - Whole 00:00:00 [facility] Influenza Virus 2017-10-28 Completed [facility] Vaccine - Whole 00:00:00 [facility] Influenza Virus 2017-10-28 Completed [facility] Vaccine - Whole 00:00:00 [facility] Influenza Virus 2017-10-28 Completed [facility] Vaccine - Whole 00:00:00 [facility] Influenza Virus 2017-10-28 Completed [facility] Vaccine - Whole 00:00:00 [facility] Influenza Virus 2017-10-28 Completed [facility] Vaccine - Whole 00:00:00 [facility] Influenza Virus 2017-10-28 Completed [facility] Vaccine - Whole 00:00:00 [facility] Influenza Virus 2017-10-28 Completed [facility] Vaccine - Whole 00:00:00 [facility] Influenza Virus 2017-10-28 Completed [facility] Vaccine - Whole 00:00:00 [facility] Influenza Virus 2017-10-28 Completed [facility] Vaccine - Whole 00:00:00 [facility] Influenza Virus 2017-10-28 Completed [facility] Vaccine - Whole 00:00:00 [facility] Influenza Virus 2017-10-28 Completed [facility] Vaccine - Whole 00:00:00 [facility] Influenza Virus 2017-10-28 Completed [facility] Vaccine - Whole 00:00:00 [facility] Influenza Virus 2017-10-28 Completed [facility] Vaccine - Whole 00:00:00 [facility] Influenza Virus 2017-10-28 Completed [facility] Vaccine - Whole 00:00:00 [facility] Influenza Virus 2017-10-28 Completed [facility] Vaccine - Whole 00:00:00 [facility] Influenza Virus 2017-10-28 Completed [facility] Vaccine - Whole 00:00:00 [facility] Influenza Virus 2017-10-28 Completed [facility] Vaccine - Whole 00:00:00 [facility] Influenza Virus 2017-10-28 Completed [facility] Vaccine - Whole 00:00:00 [facility] Influenza Virus 2017-10-28 Completed [facility] Vaccine - Whole 00:00:00 [facility] Influenza Virus 2017-10-28 Completed [facility] Vaccine - Whole 00:00:00 [facility] Influenza Virus 2017-10-28 Completed [facility] Vaccine - Whole 00:00:00 [facility] Influenza Virus 2017-10-28 Completed [facility] Vaccine - Whole 00:00:00 [facility] Influenza Virus 2017-10-28 Completed [facility] Vaccine - Whole 00:00:00 [facility] Influenza Virus 2017-10-28 Completed [facility] Vaccine - Whole 00:00:00 [facility] Influenza Virus 2017-10-28 Completed [facility] Vaccine - Whole 00:00:00 [facility] Influenza High Dose 2015-11-21 Completed [facility] 00:00:00 [facility] Influenza High Dose 2015-11-21 Completed [facility] 00:00:00 [facility] Influenza High Dose 2015-11-21 Completed [facility] 00:00:00 [facility] Influenza High Dose 2015-11-21 Completed [facility] 00:00:00 [facility] Influenza High Dose 2015-11-21 Completed [facility] 00:00:00 [facility] Influenza High Dose 2015-11-21 Completed [facility] 00:00:00 [facility] Influenza High Dose 2015-11-21 Completed [facility] 00:00:00 [facility] Influenza High Dose 2015-11-21 Completed [facility] 00:00:00 [facility] Influenza High Dose 2015-11-21 Completed [facility] 00:00:00 [facility] Influenza High Dose 2015-11-21 Completed [facility] 00:00:00 [facility] Influenza High Dose 2015-11-21 Completed [facility] 00:00:00 [facility] Influenza High Dose 2015-11-21 Completed [facility] 00:00:00 [facility] Influenza High Dose 2015-11-21 Completed [facility] 00:00:00 [facility] Influenza High Dose 2015-11-21 Completed [facility] 00:00:00 [facility] Influenza High Dose 2015-11-21 Completed [facility] 00:00:00 [facility] Influenza High Dose 2015-11-21 Completed [facility] 00[facility]00:00 [facility] [place] Influenza High Dose 2015-11-21 Completed Unive rsity of 00:00:00 [facility] [place] Influenza High Dose 2015-11-21 Completed Unive rsity of 00:00:00 [facility] [place] Influenza High Dose 2015-11-21 Completed Unive rsity of 00:00:00 [facility] [place] Influenza High Dose 2015-11-21 Completed Unive rsity of 00:00:00 [facility] [place] Influenza High Dose 2015-11-21 Completed Unive rsity of 00:00:00 [facility] [place] Influenza High Dose 2015-11-21 Completed Unive rsity of 00:00:00 [facility] [place] Influenza High Dose 2015-11-21 Completed Unive rsity of 00:00:00 [facility] [place] Influenza High Dose 2015-11-21 Completed Unive rsity of 00:00:00 [facility] [place] Influenza High Dose 2015-11-21 Completed Unive rsity of 00:00:00 [facility] [place] Influenza High Dose 2015-11-21 Completed Unive rsity of 00:00:00 [facility] [place] Influenza High Dose 2015-11-21 Completed Unive rsity of 00:00:00 [facility] [place] Influenza High Dose 2015-11-21 Completed Unive rsity of 00:00:00 [facility] [place] Influenza High Dose 2015-11-21 Completed Unive rsity of 00:00:00 [facility] [place] Influenza High Dose 2015-11-21 Completed Unive rsity of 00:00:00 [facility] [place] Influenza High Dose 2015-11-21 Completed Unive rsity of 00:00:00 [facility] [place] Pneumococcal 2014-05-31 Completed University o f Polysaccharide, [...] rsity of 00:00:00 [facility] [place] Influenza High Dose 2013-11-09 Completed Unive rsity of 00:00:00 [facility] [place] Influenza High Dose 2013-11-09 Completed Unive rsity of 00:00:00 [facility] [place] Influenza High Dose 2013-11-09 Completed Unive rsity of 00:00:00 [facility] [place] Influenza High Dose 2013-11-09 Completed Unive rsity of 00:00:00 [facility] [place] Influenza High Dose 2013-11-09 Completed Unive rsity of 00:00:00 [facility] [place] Influenza High Dose 2013-11-09 Completed Unive rsity of 00:00:00 [facility] [place] Influenza High Dose 2013-11-09 Completed Unive rsity of 00:00:00 [facility] [place] Influenza High Dose 2013-11-09 Completed Unive rsity of 00:00:00 [facility] [place] Influenza High Dose 2013-11-09 Completed Unive rsity of 00:00:00 [facility] [place] Influenza High Dose 2013-11-09 Completed Unive rsity of 00:00:00 [facility] [place] Influenza High Dose 2013-11-09 Completed Unive rsity of 00:00:00 [facility] [place] Influenza High Dose 2013-11-09 Completed Unive rsity of 00:00:00 [facility] [place] Influenza High Dose 2013-11-09 Completed Unive rsity of 00:00:00 [facility] [place] Influenza High Dose 2013-11-09 Completed Unive rsity of 00:00:00 [facility] [place] Influenza High Dose 2013-11-09 Completed Unive rsity of 00:00:00 [facility] [place] Influenza High Dose 2013-11-09 Completed Unive rsity of 00:00:00 [facility] [place] Influenza High Dose 2013-11-09 Completed Unive rsity of 00:00:00 [facility] [place] Influenza High Dose 2013-11-09 Completed Unive rsity of 00:00:00 [facility] [place] Influenza High Dose 2013-11-09 Completed Unive rsity of 00:00:00 [facility] [place] Influenza High Dose 2013-11-09 Completed Unive rsity of 00:00:00 [facility] [place] Influenza High Dose 2013-11-09 Completed Unive rsity of 00:00:00 [facility] [place] Influenza High Dose 2013-11-09 Completed Unive rsity of 00:00:00 [facility] [place] Influenza High Dose 2013-11-09 Completed Unive rsity of 00:00:00 [facility] [place] Influenza High Dose 2013-11-09 Completed Unive rsity of 00:00:00 [facility] [place] Influenza High Dose 2013-11-09 Completed Unive rsity of 00:00:00 [facility] [place] Influenza High Dose 2013-11-09 Completed Unive rsity of 00:00:00 [facility] [place] Influenza High Dose 2013-11-09 Completed Unive rsity of 00:00:00 [facility] [place] Influenza High Dose 2013-11-09 Completed Unive rsity of 00:00:00 [facility] [place] Influenza High Dose 2013-11-09 Completed Unive rsity of 00:00:00 [facility] [place] Influenza High Dose 2013-11-09 Completed Unive rsity of 00:00:00 [facility] [place] Pneumococcal 7 2012-11-29 Completed University of Conjugate, [...] 2012-11-29 Completed University of Conjugate, PCV7 00:00:00 [facility] ical (Prevnar7) Branch Pneumococcal 7 2012-11-29 Completed University of Conjugate, PCV7 00:00:00 [facility] ical (Prevnar7) Branch AP 2012-01-10 Completed University of 00:00:00 [facility] [place] Zoster(Zostavax)( 2012-01-10 Completed Unive rsity of ingles) 00:00:00 [facility] 2012-01-10 Completed University of 00:00:00 [facility] [place] Zoster(Zostavax)( 2012-01-10 Completed Unive rsity of ingles) 00:00:00 [facility] 2012-01-10 Completed University of 00:00:00 [facility] [place] Zoster(Zostavax)( 2012-01-10 Completed Unive rsity of ingles) 00:00:00 [facility] 2012-01-10 Completed University of 00:00:00 [facility] [place] Zoster(Zostavax)( 2012-01-10 Completed Unive rsity of ingles) 00:00:00 [facility] 2012-01-10 Completed University of 00:00:00 [facility] [place] Zoster(Zostavax)( 2012-01-10 Completed Unive rsity of ingles) 00:00:00 [facility] 2012-01-10 Completed University of 00:00:00 [facility] [place] Zoster(Zostavax)( 2012-01-10 Completed Unive rsity of ingles) 00:00:00 [facility] 2012-01-10 Completed University of 00:00:00 [facility] [place] Zoster(Zostavax)( 2012-01-10 Completed Unive rsity of ingles) 00:00:00 [facility] 2012-01-10 Completed University of 00:00:00 [facility] [place] Zoster(Zostavax)( 2012-01-10 Completed Unive rsity of ingles) 00:00:00 [facility] 2012-01-10 Completed University of 00:00:00 [facility] [place] Zoster(Zostavax)( 2012-01-10 Completed Unive rsity of ingles) 00:00:00 [facility] 2012-01-10 Completed University of 00:00:00 [facility] [place] Zoster(Zostavax)( 2012-01-10 Completed Unive rsity of ingles) 00:00:00 [facility] 2012-01-10 Completed University of 00:00:00 [facility] [place] Zoster(Zostavax)( 2012-01-10 Completed Unive rsity of ingles) 00:00:00 [facility] 2012-01-10 Completed University of 00:00:00 [facility] [place] Zoster(Zostavax)( 2012-01-10 Completed Unive rsity of ingles) 00:00:00 [facility] 2012-01-10 Completed University of 00:00:00 [facility] [place] Zoster(Zostavax)( 2012-01-10 Completed Unive rsity of ingles) 00:00:00 [facility] 2012-01-10 Completed University of 00:00:00 [facility] [place] Zoster(Zostavax)( 2012-01-10 Completed Unive rsity of ingles) 00:00:00 [facility] 2012-01-10 Completed University of 00:00:00 [facility] [place] Zoster(Zostavax)( 2012-01-10 Completed Unive rsity of ingles) 00:00:00 [facility] 2012-01-10 Completed University of 00:00:00 [facility] [place] Zoster(Zostavax)( 2012-01-10 Completed Unive rsity of ingles) 00:00:00 [facility] 2012-01-10 Completed University of 00:00:00 [facility] [place] Zoster(Zostavax)( 2012-01-10 Completed Unive rsity of ingles) 00:00:00 [facility] 2012-01-10 Completed University of 00:00:00 [facility] [place] Zoster(Zostavax)( 2012-01-10 Completed Unive rsity of ingles) 00:00:00 [facility] 2012-01-10 Completed University of 00:00:00 [facility] [place] Zoster(Zostavax)( 2012-01-10 Completed Unive rsity of ingles) 00:00:00 [facility] 2012-01-10 Completed University of 00:00:00 [facility] [place] Zoster(Zostavax)( 2012-01-10 Completed Unive rsity of ingles) 00:00:00 [facility] 2012-01-10 Completed University of 00:00:00 [facility] Zoster(Zostavax)( 2012-01-10 Completed Unive rsity of ingles) 00:00:00 [facility] 2012-01-10 Completed University of 00:00:00 [facility] Zoster(Zostavax)( 2012-01-10 Completed Unive rsity of ingles) 00:00:00 [facility] 2012-01-10 Completed University of 00:00:00 [facility] [place] Zoster(Zostavax)( 2012-01-10 Completed Unive rsity of ingles) 00:00:00 [facility] 2012-01-10 Completed University of 00:00:00 [facility] [place] Zoster(Zostavax)( 2012-01-10 Completed Unive rsity of ingles) 00:00:00 [facility] 2012-01-10 Completed University of 00:00:00 [facility] [place] Zoster(Zostavax)( 2012-01-10 Completed Unive rsity of ingles) 00:00:00 [facility] 2012-01-10 Completed University of 00:00:00 [facility] [place] Zoster(Zostavax)( 2012-01-10 Completed Unive rsity of ingles) 00:00:00 [facility] 2012-01-10 Completed University of 00:00:00 [facility] [place] Zoster(Zostavax)( 2012-01-10 Completed Unive rsity of ingles) 00:00:00 [facility] 2012-01-10 Completed University of 00:00:00 [facility] [place] Zoster(Zostavax)( 2012-01-10 Completed Unive rsity of ingles) 00:00:00 [facility] 2012-01-10 Completed University of 00:00:00 [facility] [place] Zoster(Zostavax)( 2012-01-10 Completed Unive rsity of ingles) 00:00:00 [facility] 2012-01-10 Completed University of 00:00:00 [facility] [place] Zoster(Zostavax)( 2012-01-10 Completed Unive rsity of ingles) 00:00:00 [facility] [place] TDAP 2012-01-10 Completed University of 00:00:00 [facility] [place] Zoster(Zostavax)( 2012-01-10 Completed Unive rsity of ingles) 00:00:00 [facility] [place] Influenza Virus 2011-12-16 Completed Universit y of Vaccine 00:00:00 [facility] [place] Influenza Virus 2011-12-16 Completed Universit y of Vaccine 00:00:00 [facility] [place] Influenza Virus 2011-12-16 Completed Universit y of Vaccine 00:00:00 [facility] [place] Influenza Virus 2011-12-16 Completed Universit y of Vaccine 00:00:00 [facility] [place] Influenza Virus 2011-12-16 Completed Universit y of Vaccine 00:00:00 [facility] [place] Influenza Virus 2011-12-16 Completed Universit y of Vaccine 00:00:00 [facility] [place] Influenza Virus 2011-12-16 Completed Universit y of Vaccine 00:00:00 [facility] [place] Influenza Virus 2011-12-16 Completed Universit y of Vaccine 00:00:00 [facility] [place] Influenza Virus 2011-12-16 Completed Universit y of Vaccine 00:00:00 [facility] [place] Influenza Virus 2011-12-16 Completed Universit y of Vaccine 00:00:00 [facility] [place] Influenza Virus 2011-12-16 Completed Universit y of Vaccine 00:00:00 [facility] [place] Influenza Virus 2011-12-16 Completed Universit y of Vaccine 00:00:00 [facility] [place] Influenza Virus 2011-12-16 Completed Universit y of Vaccine 00:00:00 [facility] [place] Influenza Virus 2011-12-16 Completed Universit y of Vaccine 00:00:00 [facility] [place] Influenza Virus 2011-12-16 Completed Universit y of Vaccine 00:00:00 [facility] [place] Influenza Virus 2011-12-16 Completed Universit y of Vaccine 00:00:00 [facility] [place] Influenza Virus 2011-12-16 Completed Universit y of Vaccine 00:00:00 [facility] [place] Influenza Virus 2011-12-16 Completed Universit y of Vaccine 00:00:00 [facility] [place] Influenza Virus 2011-12-16 Completed Universit y of Vaccine 00:00:00 [facility] [place] Influenza Virus 2011-12-16 Completed Universit y of Vaccine 00:00:00 [facility] [place] Influenza Virus 2011-12-16 Completed Universit y of Vaccine 00:00:00 [facility] [place] Influenza Virus 2011-12-16 Completed Universit y of Vaccine 00:00:00 [facility] [place] Influenza Virus 2011-12-16 Completed Universit y of Vaccine 00:00:00 [facility] [place] Influenza Virus 2011-12-16 Completed Universit y of Vaccine 00:00:00 [facility] [place] Influenza Virus 2011-12-16 Completed Universit y of Vaccine 00:00:00 [facility] [place] Influenza Virus 2011-12-16 Completed Universit y of Vaccine 00:00:00 [facility] [place] Influenza Virus 2011-12-16 Completed Universit y of Vaccine 00:00:00 [facility] [place] Influenza Virus 2011-12-16 Completed Universit y of Vaccine 00:00:00 [facility] [place] Influenza Virus 2011-12-16 Completed Universit y of Vaccine 00:00:00 [facility] [place] Influenza Virus 2011-12-16 Completed Universit y of Vaccine 00:00:00 [facility] [place] Influenza Virus 2011-12-16 Completed Universit y of Vaccine 00:00:00 [facility] [place] Influenza Virus 2008-11-18 Completed Universit y of Vaccine 00:00:00 [facility] [place] Influenza Virus 2008-11-18 Completed Universit y of Vaccine 00:00:00 [facility] [place] Influenza Virus 2008-11-18 Completed Universit y of Vaccine 00:00:00 [facility] [place] Influenza Virus 2008-11-18 Completed Universit y of Vaccine 00:00:00 [facility] [place] Influenza Virus 2008-11-18 Completed Universit y of Vaccine 00:00:00 [facility] [place] Influenza Virus 2008-11-18 Completed Universit y of Vaccine 00:00:00 [facility] [place] Influenza Virus 2008-11-18 Completed Universit y of Vaccine 00:00:00 [facility] [place] Influenza Virus 2008-11-18 Completed Universit y of Vaccine 00:00:00 [facility] [place] Influenza Virus 2008-11-18 Completed Universit y of Vaccine 00:00:00 [facility] [place] Influenza Virus 2008-11-18 Completed Universit y of Vaccine 00:00:00 [facility] [place] Influenza Virus 2008-11-18 Completed Universit y of Vaccine 00:00:00 [facility] [place] Influenza Virus 2008-11-18 Completed Universit y of Vaccine 00:00:00 [facility] [place] Influenza Virus 2008-11-18 Completed Universit y of Vaccine 00:00:00 [facility] [place] Influenza Virus 2008-11-18 Completed Universit y of Vaccine 00:00:00 [facility] [place] Influenza Virus 2008-11-18 Completed Universit y of Vaccine 00:00:00 [facility] [place] Influenza Virus 2008-11-18 Completed Universit y of Vaccine 00:00:00 [facility] [place] Influenza Virus 2008-11-18 Completed Universit y of Vaccine 00:00:00 [facility] [place] Influenza Virus 2008-11-18 Completed Universit y of Vaccine 00:00:00 [facility] [place] Influenza Virus 2008-11-18 Completed Universit y of Vaccine 00:00:00 [facility] [place] Influenza Virus 2008-11-18 Completed Universit y of Vaccine 00:00:00 [facility] [place] Influenza Virus 2008-11-18 Completed Universit y of Vaccine 00:00:00 [facility] [place] Influenza Virus 2008-11-18 Completed Universit y of Vaccine 00:00:00 [facility] [place] Influenza Virus 2008-11-18 Completed Universit y of Vaccine 00:00:00 [facility] [place] Influenza Virus 2008-11-18 Completed Universit y of Vaccine 00:00:00 [facility] [place] Influenza Virus 2008-11-18 Completed Universit y of Vaccine 00:00:00 [facility] [place] Influenza Virus 2008-11-18 Completed Universit y of Vaccine 00:00:00 [facility] [place] Influenza Virus 2008-11-18 Completed Universit y of Vaccine 00:00:00 [facility] [place] Influenza Virus 2008-11-18 Completed Universit y of Vaccine 00:00:00 [facility] [place] Influenza Virus 2008-11-18 Completed Universit y of Vaccine 00:00:00 [facility] [place] Influenza Virus 2008-11-18 Completed Universit y of Vaccine 00:00:00 [facility] [place] Influenza Virus 2008-11-18 Completed Universit y of Vaccine 00:00:00 [facility] [place] Pneumococcal 7 2007-03-13 Completed University of Conjugate, PCV7 00:00:00 [place] [facility] (Prevnar7[facility] Pneumococcal 7 2007-03-13 Completed University of Conjugate, PCV7 00:00:00 [place] [facility] (Prevnar7) [facility] Pneumococcal 7 2007-03-13 Completed University of Conjugate, PCV7 00:00:00 [place] [facility] (Prevnar7) [facility] Pneumococcal 7 2007-03-13 Completed University of Conjugate, PCV7 00:00:00 [place] [facility] (Prevnar7) [facility] Pneumococcal 7 2007-03-13 [...] Observation Time Observation Value Comments Source Body height 2022-09-22 15:37:00 149.9 cm [facility] Body weight 2022-09-22 15:37:00 64.864 kg [facility] BMI 2022-09-22 15:37:00 28.88 kg/m2 [facility] Respiratory rate 2022-08-25 15:38:00 12 /min [facility] Body height 2022-08-25 15:38:00 149.9 cm [facility] Body weight 2022-08-25 15:38:00 65.137 kg [facility] BMI 2022-08-25 15:38:00 29.00 kg/m2 [facility] Oxygen saturation in 2022-08-25 15:38:00 98 /min [facility] Arterial blood by [facility] Pulse oximetry Branch Systolic blood 2022-06-23 17:57:00 126 mm[Hg] Univer sity of pressure [facility] Diastolic blood 2022-06-23 17:57:00 65 mm[Hg] Unive rsity of pressure [facility] Heart rate 2022-06-23 17:57:00 84 /min [facility] Body temperature 2022-06-23 17:57:00 36.72 [place] [facility] Respiratory rate 2022-06-23 17:57:00 16 /min [facility] Body height 2022-06-23 17:57:00 149.9 cm [facility] Body weight 2022-06-23 17:57:00 65.137 kg [facility] BMI 2022-06-23 17:57:00 29.00 kg/m2 [facility] Oxygen saturation in 2022-06-23 17:57:00 95 /min University of Arterial blood by [place] [employer] [facility] Pulse oximetry Branch Systolic blood 2022-03-03 17:12:00 109 mm[Hg] Univer sity of pressure [facility] Diastolic blood 2022-03-03 17:12:00 67 mm[Hg] Unive rsity of pressure [facility] Heart rate 2022-03-03 17:12:00 95 /min [facility] Body temperature 2022-03-03 17:12:00 36.89 L[place] [facility] Respiratory rate 2022-03-03 17:12:00 18 /min [facility] Body height 2022-03-03 17:12:00 149.9 cm [facility] Body weight 2022-03-03 17:12:00 63.912 kg [facility] BMI 2022-03-03 17:12:00 28.46 kg/m2 [facility] Oxygen saturation in 2022-03-03 17:12:00 98 /min University of Arterial blood by [facility] Pulse oximetry Branch Systolic blood 2022-01-06 19:11:00 102 mm[Hg] Univer sity of pressure [facility] Diastolic blood 2022-01-06 19:11:00 61 mm[Hg] Unive rsity of pressure [facility] Heart rate 2022-01-06 19:11:00 101 /min [facility] Body temperature 2022-01-06 19:11:00 36.83 Lena [facility] Respiratory rate 2022-01-06 19:11:00 16 /min [facility] ers[facility] Body height 2022-01-06 19:11:00 149.9 cm [facility] Body weight 2022-01-06 19:11:00 62.279 kg [facility] BMI 2022-01-06 19:11:00 27.73 kg/m2 [facility] Oxygen saturation in 2022-01-06 19:11:00 95 /min [facility] Arterial blood by [place] [employer] charito Pulse oximetry Branch Systolic blood 2021-12-15 18:56:00 115 mm[Hg] [facility] Diastolic blood 2021-12-15 18:56:00 65 mm[Hg] [facility] Heart rate 2021-12-15 18:56:00 98 /min [facility] Body temperature 2021-12-15 18:56:00 36.89 Lena [facility] Body height 2021-12-15 18:56:00 149.9 cm [facility] Body weight 2021-12-15 18:56:00 64.229 kg [facility] BMI 2021-12-15 18:56:00 28.60 kg/m2 [facility] Oxygen saturation in 2021-12-15 18:56:00 97 /min [facility] Arterial blood by [place] [employer] charito Pulse oximetry Branch Systolic blood 2021-12-09 18:11:00 127 mm[Hg] [facility] Diastolic blood 2021-12-09 18:11:00 77 mm[Hg] [facility] Heart rate 2021-12-09 18:11:00 87 /min [facility] Body temperature 2021-12-09 18:11:00 37 Lena [facility] Respiratory rate 2021-12-09 18:11:00 18 /min [facility] Body height 2021-12-09 18:11:00 149.9 cm [facility] Body weight 2021-12-09 18:11:00 64.184 kg [facility] BMI 2021-12-09 18:11:00 28.58 kg/m2 [facility] Oxygen saturation in 2021-12-09 18:11:00 98 /min [facility] Arterial blood by [facility] Pulse oximetry Branch Systolic blood 2021-11-11 18:21:00 110 mm[Hg] [facility] Diastolic blood 2021-11-11 18:21:00 64 mm[Hg] Unive rsity of pressure [facility] Heart rate 2021-11-11 18:21:00 103 /min Universi [facility] of [facility] Body temperature 2021-11-11 18:21:00 36.94 Lena Univ ersity of [facility] Respiratory rate 2021-11-11 18:21:00 18 /min Univ ersity of [facility] Body height 2021-11-11 18:21:00 149.9 cm [facility] Body weight 2021-11-11 18:21:00 63.594 kg [facility] BMI 2021-11-11 18:21:00 28.32 kg/m2 Universi [facility] of [facility] Oxygen saturation in 2021-11-11 18:21:00 97 /min [facility] Arterial blood by [facility] Pulse oximetry Branch height 2021-10-27 10:50:00 59.5 [in_i] [facility] weight 2021-10-27 10:50:00 142.5 [lb_av] Common [facility] temperature 2021-10-27 10:50:00 97.4 [degF] Common [facility] bmi 2021-10-27 10:50:00 28.3 kg/m2 [facility] oximetry 2021-10-27 10:50:00 94 % [facility] respiratory rate 2021-10-27 10:50:00 16 /min Comm on [facility] blood pressure 2021-10-27 10:50:00 115 mm[Hg] Common [facility] - systolic [facility] blood pressure 2021-10-27 10:50:00 57 mm[Hg] Common [facility] - diastolic [facility] Systolic blood 2021-10-14 20:05:00 146 mm[Hg] Univer sity of [facility] Diastolic blood 2021-10-14 20:05:00 77 mm[Hg] Unive rsity of [facility] Heart rate 2021-10-14 20:05:00 86 /min Universi ty [facility] Body temperature 2021-10-14 20:05:00 36.94 Lena [facility] Res[facility] rate 2021-10-14 20:05:00 18 /min [facility] Body height 2021-10-14 20:05:00 149.9 cm Universi ty [facility] Body weight 2021-10-14 20:05:00 64.547 [facility] 2021-10-14 20:05:00 28.74 kg/m2 [facility] Oxygen saturation in 2021-10-14 20:05:00 98 /min [facility] Arterial blood by [facility] Pulse oximetry Branch height 2021-07-24 10:50:00 59 [in_i] Common [facility] weight 2021-07-24 10:50:00 148.2 [lb_av] Common [facility] temperature 2021-07-24 10:50:00 98.1 [degF] Common [facility] bmi 2021-07-24 10:50:00 29.93 kg/m2 [facility] oximetry 2021-07-24 10:50:00 100 % Common [facility] respiratory rate 2021-07-24 10:50:00 18 /min Comm on [facility] blood pressure 2021-07-24 10:50:00 120 mm[Hg] Common [facility] - systolic [facility] blood pressure 2021-07-24 10:50:00 57 mm[Hg] Common [facility] - diastolic [facility] height 2021-04-27 13:30:00 59 [in_i] Common [place] weight 2021-04-27 13:30:00 161.0 [lb_av] Common [facility] temperature 2021-04-27 13:30:00 97.3 [degF] Common [facility] [place] bmi 2021-04-27 13:30:00 32.51 kg/m2 Common S [facility] oximetry 2021-04-27 13:30:00 97 % Common [facility] respiratory rate 2021-04-27 13:30:00 17 /min Comm on [facility] blood pressure 2021-04-27 13:30:00 111 mm[Hg] Common [facility] - systolic [facility] blood pressure 2021-04-27 13:30:00 50 mm[Hg] Common [facility] - diastolic [facility] height 2021-04-27 13:40:00 59 [in_i] Common S [facility] weight 2021-04-27 13:40:00 161 [lb_av] Common [place] temperature 2021-04-27 13:40:00 97.3 [degF] [facility] bmi 2021-04-27 13:40:00 32.51 kg/m2 [facility] oximetry 2021-04-27 13:40:00 97 % Common S [facility] respiratory rate 2021-04-27 13:40:00 17 /min Comm on [facility] blood pressure 2021-04-27 13:40:00 111 mm[Hg] Common [facility] - systolic [facility] blood pressure 2021-04-27 13:40:00 50 mm[Hg] Common [facility] - diastolic [facility] height 2021-03-26 14:00:00 59 [in_i] Common [place] weight 2021-03-26 14:00:00 164.4 [lb_av] Common [facility] - [facility] temperature 2021-03-26 14:00:00 96.8 [degF] Common S pirit [facility] bmi 2021-03-26 14:00:00 33.2 kg/m2 Common S [facility] oximetry 2021-03-26 14:00:00 98 % Common S [facility] respiratory rate 2021-03-26 14:00:00 18 /min Comm on [facility] blood pressure 2021-03-26 14:00:00 108 mm[Hg] Common [facility] - systolic [facility] blood pressure 2021-03-26 14:00:00 52 mm[Hg] Common [facility] - diastolic [facility] height 2021-03-10 13:30:00 59 [in_i] Common [place] weight 2021-03-10 13:30:00 158 [lb_av] [facility] temperature 2021-03-10 13:30:00 97.0 [degF] Common S pirit [facility] bmi 2021-03-10 13:30:00 31.91 kg/m2 Common [place] oximetry 2021-03-10 13:30:00 98 % Common [facility] respiratory rate 2021-03-10 13:30:00 18 /min Comm on [facility] blood pressure 2021-03-10 13:30:00 126 mm[Hg] Common [facility] - systolic [facility] blood pressure 2021-03-10 13:30:00 71 mm[Hg] Common [facility] - diastolic [facility] height 2021-01-23 09:00:00 59 [in_i] Common S [facility] weight 2021-01-23 09:00:00 158.8 [lb_av] Common [facility] temperature 2021-01-23 09:00:00 97.2 [degF] [facility] bmi 2021-01-23 09:00:00 32.07 kg/m2 Common S pirit [facility] oximetry 2021-01-23 09:00:00 98 % Common S [facility] respiratory rate 2021-01-23 09:00:00 17 /min Comm on [facility] blood pressure 2021-01-23 09:00:00 131 mm[Hg] Common [facility] - systolic [facility] blood pressure 2021-01-23 09:00:00 59 mm[Hg] Common [facility] - diastolic [facility] Procedures Procedure Date / Time Performing Clinician Source Performed EXTERNAL PROVIDER 2022-08-10 05:01:00 Doctor Unassigned, No [facility] RECORDS Name [facility] PATIENT FINANCIAL 2022-04-28 14:33:31 Doctor Unassigned, No [facility] POLICY Name [facility] URINALYSIS MICROSCOPIC 2021-11-11 19:24:00 Alpa Godfrey [facility] URINE CULTURE 2021-11-11 19:24:00 Alpa Godfrey [place] o f [facility] ASSIGNMENT OF BENEFITS 2021-11-11 18:03:09 Doctor Unassigned, No [facility] Name [facility] REFERRAL- 2021-11-03 05:01:00 Doctor Unassigned, No [facility] REQUEST/RESPONSE [facility] Encounters Start End Encounter Admission Attending Care Care Encounter Source Date/Time Date/Time Type Type Clinicians Facility Department ID 2022-09-23 Outpatient Gallo, STLMLC STLC [id number] Common 14:51:00 Roland [id number] [facility] 2022-01-22 Outpatient Gallo, STLMLC STLC [id number] Common 11:14:02 Roland 20560 [facility] 2021-04-16 Outpatient Gallo, STLMLC STLMLC [id number] Common 17:04:01 Roland [facility] 2021-04-09 Outpatient Gallo, STLMLC STLC [id number] Common 09:00:02 Roland [facility] 2021-04-08 Outpatient Gallo, STLMLC STLC [id number] Common 15:59:02 Roland [facility] 2021-03-30 Outpatient Gallo, STLMLC STLC [id number] Common 08:52:01 Roland [facility] 2021-03-26 Outpatient Gallo, STLMLC STLC [id number] Common 13:28:02 Roland [facility] 2021-03-11 Outpatient Gallo, STLMLC STLC [id number] Common 14:40:07 Roland [facility] 2021-03-11 Outpatient Gallo, STLMLC STLC [id number] Common 14:16:28 Roland [facility] 2021-03-11 [facility] [id number] Common 14:11:10 Roland [facility] 2021-03-11 [facility] [id number] Common 14:10:16 Roland 90820 [facility] 2020-12-16 Outpatient R EDYTA [facility] [id number] Univers 05:02:12 [facility] 2020-12-15 Outpatient [facility] [id number] Univers 19:17:29 [facility] 2022-12-15 2022-12-15 Outpatient R [facility] [id number] Univers 09:30:00 09:30:00 ity [facility] 2022-10-20 2022-10-20 Nurse Nurse, [facility] Urology [facility] 1.2.840 .114 [id number] Univers 09:30:00 10:00:00 Visit Alpa Godfrey [facility] 350.1.13.10 ity of [place] 4.2.7.2.686 Elsa [place] [id number] [address] OFFICE BUILDING 2022-10-20 2022-10-20 Outpatient R EPIFANIO, [facility] [id number] Univers 09:30:00 09:30:00 [facility] 2022-09-22 2022-09-22 Nurse Nurse, [facility] Urology [facility] 1.2.840 .114 [id number] Univers 10:00:00 10:30:00 Visit Unknown, [facility] HEALTH 350.1.13.10 [place] [id number] [address] OFFICE BUILDING 2022-09-22 2022-09-[address] [facility] [id number] Univers 10:00:00 10:00:00 BILAL ity [facility] 2022-08-25 2022-08-25 Nurse Nurse, [facility] Urology [facility] 1.2.840 .114 [id number] Univers 10:00:00 10:30:00 Visit Cayetano Godfreyid HEALTH 350.1.13.10 [place] [id number] [address] OFFICE BUILDING 2022-08-25 2022-08-[address] [facility] [id number] Univers 10:00:00 10:00:00 BILAL ity [facility] 2022-08-25 2022-08-25 Telephone [facility] [id number] Univers 00:00:00 00:00:00 Bilal HEALTH 350.1.13.10 [place] [id number] [address] OFFICE BUILDING 2022-08-10 2022-08-10 Telephone [facility] [id number] Univers 00:00:00 00:00:00 Bilal HEALTH 350.1.13.10 [place] [id number] [address] OFFICE BUILDING 2022-08-10 2022-08-10 Orders Doctor NAE 1.2.840.114 [id number] Univers 00:00:00 00:00:00 Only Unassigned, JESUS 350.1.13.10 ity of [place] [facility] 4.2.7.2.686 Kyle as [id number] [address] 2022-08-10 2022-08-10 Telephone [facility] [id number] Univers 00:00:00 00:00:00 Bilal HEALTH 350.1.13.10 [place] [id number] [address] OFFICE BUILDING 2022-07-21 2022-07-21 Nurse Nurse, [facility] 1.2.840 .114 [id number] Univers 10:00:00 10:30:00 Visit Epifanio [facility] HEALTH 350.1.13.10 [place] [id number] [address] OFFICE BUILDING 2022-07-21 2022-07-21 Outpatient [facility] [id number] Univers 10:00:00 10:00:00 BILAL ity [facility] 2022-06-23 2022-06-23 Office [facility] 1.2.840.114 [id number] Univers 13:00:00 13:15:00 Visit [facility] HEALTH 350.1.13.10 [place] [id number] [address] OFFICE BUILDING 2022-06-23 2022-06-23 Outpatient [facility] [id number] Univers 13:00:00 13:00:00 BILAL ity [facility] 2022-05-26 2022-05-26 Outpatient [facility] [id number] Univers 14:00:00 14:00:00 BILAL ity [facility] 2022-05-26 2022-05-26 Nurse Nurse, [facility] 1.2.840 .114 [id number] Univers 14:00:00 14:00:00 Visit Epifanio [facility] HEALTH 350.1.13.10 [place] [id number] [address] OFFICE BUILDING 2022-04-28 2022-04-28 Outpatient [facility] [id number] Univers 10:00:00 10:04:15 BILAL ity [facility] 2022-04-28 2022-04-28 Nurse Nurse, [facility] Urology [facility] 1.2.840 .114 [id number] Univers 10:00:00 10:04:15 Visit Alpa Godfrey 350.1.13.10 [place] [id number] [facility] [address] OFFICE BUILDING 2022-04-28 2022-04-28 Orders Doctor NAE 1.2.840.114 [id number] Univers 00:00:00 00:00:00 Only Unassigned, JESUS 350.1.13.10 ity of [place] [facility] 4.2.7.2.686 Kyle as [phone] [address] 2022-03-31 2022-03-31 Nurse Nurse, [facility] Urology [facility] 1.2.840 .114 [id number] Univers 10:30:00 11:00:00 Visit Unknown, [facility] HEALTH 350.1.13.10 ity of Alpa Godfrey [place] 4.2.7.2.686 [place] [id number] [address] OFFICE BUILDING 2022-03-31 2022-03-31 Outpatient R EPIFANIO [facility] [id number] Univers 10:30:00 10:30:00 BILAL ity [facility] 2022-03-03 2022-03-03 Nurse Nurse, Melani Denise [facility] 1.2.840. 114 [id number] Univers 11:00:00 11:18:57 Visit Alpa Godfrey 350.1.13.10 [place] [id number] [facility] [address] OFFICE BUILDING 2022-03-03 2022-03-03 Outpatient R EPIFANIO [facility] [id number] Univers 11:00:00 11:00:00 BILAL ity [facility] 2022-02-03 2022-02-03 Nurse Nurse, Melani Denise [facility] 1.2.840. 114 [id number] Univers 13:00:00 13:57:24 Visit Estrella Smith HEALTH 350.1.13.10 [place] [id number] [address] OFFICE BUILDING 2022-02-03 2022-02-03 Outpatient R АЛЕКСАНДР, [facility] [id number] Univers 13:00:00 13:00:00 ESTRELLA ity [facility] 2022-02-02 2022-02-02 Outpatient R JAMAR LEMUS [facility] [id number] Univers 13:00:00 13:00:00 ity of [facility] 2022-01-06 2022-01-06 Nurse Nurse, Melani Denise [facility] 1.2.840. 114 [id number] Univers 13:00:00 13:58:14 Visit Epifanio [facility] 350.1.13.10 [place] [id number] [address] OFFICE BUILDING 2022-01-06 2022-01-06 [facility] [id number] Univers 13:00:00 13:00:00 BILAL ity [facility] 2021-12-15 2021-12-15 Office [facility] 1.2.840.114 [id number] Univers 14:30:00 14:45:00 Visit [facility] 350.1.13.10 it y of [place] CANCER 4.2.7.2.686 Kyle as CENTER - [phone] [address] 2021-12-15 2021-12-15 Outpatient R LOREE [facility] [id number] Univers 14:30:00 14:30:00 FAUSTINO ity [facility] 2021-12-09 2021-12-09 Outpatient R EPIFANIO [facility] [id number] Univers 13:00:00 13:50:42 BILAL ity [facility] 2021-12-09 2021-12-09 Nurse NurseMelani [facility] 1.2.840. 114 [id number] Univers 13:00:00 13:50:42 [facility] 350.1.13.10 [place] [id number] [address] OFFICE BUILDING 2021-12-09 2021-12-09 Telephone [facility] [id number] Univers 00:00:00 00:00:00 Bilal HEALTH 350.1.13.10 [place] [id number] [facility] [address] OFFICE BUILDING 2021-12-03 2021-12-03 (TEL[facility] [id number] Co mmon 00:00:00 00:00:00 Spirit - [facility] 2021-11-16 2021-11-16 Telephone [facility] [id number] Univers 00:00:00 00:00:00 Bilal HEALTH 350.1.13.10 [place] [id number] [facility] [address] OFFICE BUILDING 2021-11-11 2021-11-11 Nurse Nurse, Melani Denise [facility] 1.2.840. 114 [id number] Univers 13:00:00 15:58:43 [facility] 350.1.13.10 [place] [id number] [facility] [address] OFFICE BUILDING 2021-11-11 2021-11-11 Out[facility] [id number] Univers 13:00:00 13:00:00 BILAL ity of [facility] 2021-11-11 2021-11-11 Orders Doctor NAE 1.2.840.114 [id number] Univers 00:00:00 00:00:00 Only Unassigned, JESUS 350.1.13.10 ity of [place] [facility] 4.2.7.2.686 Kyle as [id number] [address] 2021-11-03 2021-11-03 Orders Doctor NAE 1.2.840.114 [id number] Univers 00:00:00 00:00:00 Only Unassigned, JESUS 350.1.13.10 ity of [place] [facility] 4.2.7.2.686 Kyle as [id number] [address] 2021-11-022021-11-02 (TEL) STLMLC STLC [id number] Co mmon 00:00:00 00:00:00 Spirit - [facility] 2021-10-27 2021-10-27 OFFICE STLMLC STLC [id number] Co mmon 00:00:00 00:00:00 VISIT [facility] LEVEL 4 [facility] 2021-10-27 2021-10-27 (TEL) STLMLC STLC [id number] Co mmon 00:00:00 00:00:00 [facility] 2021-10-14 2021-10-14 Office [facility] 1.2.840.114 [id number] Univers 16:45:00 16:45:00 Visit [facility] HEALTH 350.1.13.10 [place] [id number] [address] OFFICE BUILDING 2021-10-14 2021-10-14 [facility] [id number] Univers 16:45:00 15:48:20 BILAL ity [facility] 2021-10-14 2021-10-[address] [facility] [id number] Univers 16:45:00 15:48:20 BILAL ity [facility] 2021-09-28 2021-09-28 Telephone IVY Smith 1.2.840.114 [id number] Univers 00:00:00 00:00:00 Estrella HEALTH 350.1.13.10 i ty [place] [id number] [address] 2021-09-16 2021-09-16 Nurse Nurse, Melani Urogyn [facility] 1.2.840. 114 [id number] Univers 15:30:00 16:00:00 Visit Estrella Smith HEALTH 350.1.13.10 [place] [id number] [place] [address] [place] OFFICE BUILDING 2021-09-16 2021-09-16 [facility] [id number] Univers 15:30:00 15:30:00 [facility] 2021-09-[facility] 2021-09-16 Outpatient Jordyn SMITH [facility] [id number] Univers 15:30:00 15:30:00 [facility] 2021-08-19 2021-08-19 Nurse Nurse, Melani Denise [facility] 1.2.840. 114 [id number] Univers 13:30:00 14:36:36 Visit Estrella Smith [facility] 350.1.13.10 [place] [id number] [place] [address] OFFICE BUILDING 2021-08-19 2021-08-19 Outpatient Jordyn АЛЕКСАНДР, [facility] [id number] Univers 13:30:00 13:30:00 [facility] 2021-07-28 2021-07-28 Outpatient JAMAR JOSEPH [facility] [id number] Univers 13:15:00 14:01:42 ity [facility] 2021-07-28 2021-07-28 Office Jamar Lemus [facility] 1.2.840.114 [id number] Univers 13:15:00 14:01:42 Visit HEALTH 350.1.13.10 [place] [id number] [address] OFFICE BUILDING 2021-07-27 2021-07-27 (TEL) STLMLC STLMLC [id number] Co mmon 00:00:00 00:00:00 Spirit - [facility] 2021-07-24 2021-07-24 OFFICE STLMLC STLMLC [id number] Co mmon 00:00:00 00:00:00 VISIT Spirit ESTAB PT - [facility] LEVEL 4 [facility] 2021-07-22 2021-07-22 Outpatient JAMAR JOSEPH [facility] [id number] Univers 14:29:30 23:59:00 ity [facility] 2021-07-22 2021-07-22 Hospital Jamar Lemus [facility] 1.2.840.114 [id number] Univers 14:29:30 23:59:00 Encounter HEALTH 350.1.13.10 [place] [id number] [place] [address] [address] ([facility]) 2021-07-22 2021-07-22 Outpatient R EPIFANIO [facility] [id number] Univers 13:30:00 14:26:35 BILAL ity [facility] 2021-07-22 2021-07-22 Office [facility] 1.2.840.114 [id number] Univers 13:30:00 14:26:35 Visit [facility] HEALTH 350.1.13.10 it [place] [id number] [place] [address] [address] OFFICE BUILDING 2021-07-22 2021-07-22 Outpatient R EPIFANIO [facility] [id number] Univers 13:30:00 14:26:35 BILAL ity [facility] 2021-07-14 2021-07-14 Outpatient R JAMAR LEMUS [facility] [id number] Univers 14:30:00 14:36:48 ity of [facility] 2021-07-14 2021-07-14 Office Jamar Lemus [facility] 1.2.840.114 [id number] Univers 14:30:00 14:36:48 Visit HEALTH 350.1.13.10 it [place] [id number] [place] [address] [address] OFFICE BUILDING 2021-07-07 2021-07-07 (TEL) [facility] [id number] Co mmon 00:00:00 00:00:00 [facility] 2021-07-06 2021-07-06 Telephone [facility] [id number] [id number] Univers 00:00:00 00:00:00 Bilal HEALTH 350.1.13.10 it [place] [id number] [place] [address] [address] OFFICE BUILDING 2021-06-29 2021-06-29 Telephone [facility] [id number] [id number] Univers 00:00:00 00:00:00 Bilal HEALTH 350.1.13.10 it y of [place] 4.2.7.2.686 Elsa alejo [place] [phone] [facility] [address] OFFICE BUILDING 2021-06-24 2021-06-24 [facility] [id number] Univers 13:30:00 17:00:44 BILAL ity of [facility] 2021-06-24 2021-06-24 [facility] 1.2.840.114 [id number] Univers 13:30:00 13:45:00 Visit Bilal HEALTH 350.1.13.10 it y of [place] 4.2.7.2.686 Elsa alejo [place] [phone] [facility] [address] OFFICE BUILDING 2021-06-16 2021-06-16 Outpatient [facility] [id number] Univers 09:30:00 09:30:00 BILAL ity of [facility] 2021-06-16 2021-06-16 Outpatient [facility] [id number] Univers 09:30:00 09:30:00 BILAL ity of [facility] 2021-06-09 2021-06-09 Outpatient [facility] [id number] Univers 09:45:00 11:04:20 BILAL ity of [facility] 2021-06-09 2021-06-09 Outpatient [facility] [id number] Univers 09:45:00 11:04:20 BILAL ity of [facility] 2021-06-09 2021-06-09 Office [facility] 1.2.840.114 [id number] Univers 09:45:00 11:04:20 Visit Bilal HEALTH 350.1.13.10 it y of [place] 4.2.7.2.686 [facility] [phone] [facility] PRIMARY & [address] SPECIALTY CARE 2021-06-09 2021-06-09 Outpatient [facility] [id number] Univers 09:45:00 11:04:20 BILAL ity of [facility] 2021-06-09 2021-06-09 Outpatient [facility] [id number] Univers 09:45:00 11:04:20 BILAL ity of [facility] 2021-06-04 2021-06-04 Outpatient Jordyn GODFREY [facility] [id number] Univers 13:45:00 14:33:13 BILAL ity of [facility] 2021-06-04 2021-06-04 Outpatient Jordyn GODFREY [facility] [id number] Univers 13:45:00 14:33:13 BILAL ity of [facility] 2021-06-04 2021-06-04 Office [facility] 1.2.840.114 [id number] Univers 13:45:00 14:33:13 Visit Bilal HEALTH 350.1.13.10 it y of [place] 4.2.7.2.686 [facility] [phone] [facility] PRIMARY & [address] SPECIALTY CARE 2021-05-13 2021-05-13 Telephone [facility] 1.2.446.574 [id number] Univers 00:00:00 00:00:00 Bilal HEALTH 350.1.13.10 it y of [place] 4.2.7.2.686 [facility] [phone] [facility] PRIMARY & [address] SPECIALTY CARE 2021-05-07 2021-05-07 Outpatient Jordyn GODFREY [facility] [id number] Univers 13:00:00 15:08:05 BILAL ity of [facility] 2021-05-07 2021-05-07 Office [facility] 1.2.840.114 [id number] Univers 13:00:00 15:08:05 Visit Bilal HEALTH 350.1.13.10 it y of [place] 4.2.7.2.686 [facility] [id number] [facility] PRIMARY & [address] SPECIALTY CARE 2021-05-07 2021-05-07 Outpatient [facility] [id number] Univers 13:00:00 15:08:05 BILAL ity of [facility] 2021-05-07 2021-05-07 Orders Doctor SONI 1.2.840.114 [id number] Univers 00:00:00 00:00:00 Only Unassigned, JESUS 350.1.13.10 ity of [place] [facility] 4.2.7.2.686 [facility] [id number] [place] [address] [address] 2021-04-27 2021-04-27 OFFICE STLC STLC [id number] Co mmon 00:00:00 00:00:00 VISIT [facility] ESTAB PT - [facility] LEVEL 4 [facility] 2021-04-27 2021-04-27 (TEL) STLMLC STLMLC [id number] Co mmon 00:00:00 00:00:00 [facility] 2021-04-27 2021-04-27 SUB ANNUAL STLMLC STLMLC [id number] Common 00:00:00 00:00:00 MCR [facility] WELLNESS - [facility]I VISIT [facility] 2021-04-17 2021-04-17 (TEL) STLMLC STLMLC [id number] Co mmon 00:00:00 00:00:00 [facility] 2021-04-14 2021-04-14 Outpatient Jordyn GODFREY [facility] [id number] Univers 15:00:00 16:01:53 BILAL ity of [facility] 2021-04-14 2021-04-14 [facility] 1.2.840.114 [id number] Univers 15:00:00 16:01:53 Visit [facility] 350.1.13.10 [facility] 4.2.7.2.686 [facility] [phone] [facility] PRIMARY & [address] SPECIALTY CARE 2021-04-14 2021-04-14 Outpatient Jordyn GODFREY [facility] [id number] Univers 15:00:00 16:01:53 BILAL ity of [facility] 2021-04-14 2021-04-14 Outpatient Jordyn GODFREY [facility] [id number] Univers 15:00:00 16:01:53 BILAL ity [facility] 2021-04-08 2021-04-08 [facility] [id number] Co mmon 00:00:00 00:00:00 [facility] 2021-04-03 2021-04-03 Nurse Nurse, [facility] 1.2. 840.114 [id number] Univers 15:00:00 15:00:00 Visit Rody Boonejeovany BETTS 350.1.13.10 ity of [place] [phone] Al dical [address] 2021-04-03 2021-04-03 Outpatient R GRAMM, [facility] [id number] Univers 15:00:00 14:31:18 KAROLINA itbenita [facility] 2021-04-03 2021-04-03 Outpatient R GRAMM, [facility] [id number] Univers 15:00:00 14:31:18 KAROLINA cotto [facility] 2021-04-01 2021-04-01 Outpatient R GRAMM, [facility] [id number] Univers 09:00:00 10:54:30 KAROLINA cotto [facility] 2021-04-01 2021-04-01 Office [facility] 1.2.840.114 [id number] Univers 09:00:00 10:54:30 Visit Karolina BETTS 350.1.13.10 ity [facility] [place]2.[place] [phone] [address] 2021-04-01 2021-04-01 Outpatient R GRAMM, [facility] [id number] Univers 09:00:00 10:54:30 KAROLINA cotto [facility] 2021-04-01 2021-04-01 Outpatient [facility] [id number] Univers 09:00:00 10:54:30 KAROLINA benita [facility] 2021-03-31 2021-03-31 Orders Doctor SONI 1.2.840.114 [id number] Univers 00:00:00 00:00:00 Only Unassigned, JESUS 350.1.13.10 ity of [facility] 4.2.7.2.686 Kyle as [phone] [address] 2021-03-30 2021-03-30 [facility]TEL[facility] [id number] Co mmon 00:00:00 00:00:00 [facility] 2021-03-30 2021-03-30 (TEL) STLMLC STLMLC [id number] Co mmon 00:00:00 00:00:00 [facility] 2021-03-30 2021-03-30 (TEL) STLMLC STLMLC [id number] Co mmon 00:00:00 00:00:00 [facility] 2021-03-26 2021-03-26 (HOSP F/U) STLMLC STLMLC [id number] Common 00:00:00 00:00:00 [facility] 2021-03-25 2021-03-25 (TEL) STLMLC STLMLC [id number] Co mmon 00:00:00 00:00:00 [facility] 2021-03-19 2021-03-19 (TEL) STLMLC STLMLC [id number] Co mmon 00:00:00 00:00:00 [facility] 2021-03-18 2021-03-18 (TEL) STLMLC STLMLC [id number] Co mmon 00:00:00 00:00:00 [facility] 2021-03-13 2021-03-13 (TEL) STLMLC STLMLC [id number] Co mmon 00:00:00 00:00:00 [facility] 2021-03-10 2021-03-10 OFFICE STLMLC STLMLC [id number] Co mmon 00:00:00 00:00:00 VISIT [facility] ESTAB PT - [facility] LEVEL 2 [facility] 2021-03-09 2021-03-09 (TEL) STLMLC STLMLC [id number] Co mmon 00:00:00 00:00:00 [facility] 2021-01-23 2021-01-23 OFFICE STLMLC STLMLC [id number] Co mmon 00:00:00 00:00:00 VISIT [facility] PT LEVEL 4 - [facility] 2020-12-24 2020-12-24 (TEL) STLMLC STLMLC [id number] Co mmon 00:00:00 00:00:00 [facility] 2020-12-22 2020-12-22 (TEL) STLMLC STLMLC [id number] Co mmon 00:00:00 00:00:00 [facility] 2020-11-27 2020-11-27 [facility] 1.2.840.114 [id number] Univers 07:37:00 10:50:00 Encounter Khoi Betts 350.1.13.10 ity of [place] [phone] [facility] [address] 2020-11-27 2020-11-27 Surgery [facility] 1.2.840.114 [id number] Univers 09:51:00 10:28:00 Khoi Betts 350.1.13.10 i ty [place] [phone] [facility] [address] 2020-11-25 2020-11-25 Outpatient [facility] [id number] Univers 11:30:00 11:30:00 KHOI cotto of [facility] 2020-11-25 2020-11-25 Laboratory Only, Adc Test [facility] 1.2.840. 114 [id number] Univers 11:13:10 11:28:10 Only Khoi Lan 350.1.1 3.10 ity [place] [phone] [facility] [address] 2020-11-25 2020-11-25 Orders Doctor NAE 1.2.840.114 [id number] Univers 00:00:00 00:00:00 Only Unassigned, JESUS 350.1.13.10 ity of [place] [facility] 4.2.7.2.686 Kyle as [phone] [facility] [address] 2020-11-11 2020-11-11 [facility] 1.2.840.114 [id number] Univers 00:00:00 00:00:00 Zehra Betts 350.1.13.10 [place] [phone] Al dical nal [address] [facility] 2020-10-23 2020-10-23 Hospital Edyta, [facility] 1.2.840.114 [id number] Univers 06:56:00 10:08:00 Encounter Khoi Betts 350.1.13.10 ity of [place] [phone] [facility] [address] 2020-10-23 2020-10-23 Surgery [facility] 1.2.840.114 [id number] Univers 09:07:00 09:44:00 Khoi Betts 350.1.13.10 i ty of [place] [phone] [facility] [address] 2020-10-21 2020-10-21 Laboratory Only, Adc Test [facility] 1.2.840. 114 [id number] Univers 11:48:01 12:03:01 Only Khoi Lan 350.1.1 3.10 ity of [place] [id number] [facility] [address] 2020-10-21 2020-10-21 Outpatient R [facility] [id number] Univers 11:45:00 11:45:00 ity of [facility] 2020-10-16 2020-10-16 Outpatient [facility] [id number] Univers 13:45:00 13:45:00 KHOI cotto [facility] 2020-10-16 2020-10-16 Web Systems Developer Korin, Adc Lab Main [facility] 1.2.8 40.114 [id number] Univers 12:13:01 12:28:01 Visit Edyta Khoi Betts 350.1.1 3.10 ity of [place] [phone] Al dical formerly [facility] 353 [facility] 2020-10-16 2020-10-16 Orders Doctor NAE 1.2.840.114 [id number] Univers 00:00:00 00:00:00 Only Unassigned, JESUS 350.1.13.10 ity of [place] [facility] 4.2.7.2.686 Kyle as [phone] [address] 2020-04-12 2020-04-12 Outpatient [facility] [id number] Univers 08:45:00 08:45:00 ity [facility] 2020-04-05 2020-04-05 Outpatient [facility] [id number] Univers 08:45:00 08:45:00 ity [facility] 2020-03-15 2020-03-15 Outpatient [facility] [id number] Univers 10:30:00 10:30:00 [facility] 2019-09-29 2019-09-29 [facility] 1.2.840.114 [id number] 00:00:00 00:00:00 Zehra Alvaradoton 350.1.13.10 [place] 4.2.7.2.686 Professio [phone] [address] 2019-09-29 2019-09-29 [facility] 1.2.840.114 [id number] Univers 00:00:00 00:00:00 Zehra A [place] 350.1.13.10 ity of [place] [phone] [address] 2019-09-08 2019-09-08 [facility] 1.2.840.114 [id number] 00:00:00 00:00:00 Zehra A [place] 350.1.13.10 [place] 4.2.7.2.686 Professio [phone] [address] 2019-09-08 2019-09-08 [facility] 1.2.840.114 [id number] Univers 00:00:00 00:00:00 Zehra A [place] 350.1.13.10 ity [place] [phone] [address] 2019-08-16 2019-08-16 Orders Doctor SONI 1.2.840.114 [id number] 00:00:00 00:00:00 Only Unassigned, JESUS 350.1.13.10 [place] [facility] 4.2.7.2.686 [id number] [id number] 2019-08-16 2019-08-16 Orders Doctor NAE 1.2.840.114 [id number] Univers 00:00:00 00:00:00 Only Unassigned, JESUS 350.1.13.10 ity of [place] [facility] 4.2.7.2.686 Kyle as [phone] [address] 2019-08-10 2019-08-[address] [facility] 1.2.840.114 [id number] 12:12:21 12:52:21 Visit Zehra Betts 350.1.13.10 [place] 4.2.7.2.686 Professio [phone] [address] 2019-08-10 2019-08-[address] [facility] 1.2.840.114 [id number] [facility] 12:12:21 12:52:21 Visit Zehra Betts 350.1.13.10 ity of [place] [phone] [address] 2019-08-10 2019-08-10 [facility] [id number] [facility] 12:20:00 12:20:00 ZEHRA ity [facility] 2019-08-07 2019-08-07 [facility] 1.2.840.114 [id number] [facility] 00:00:00 00:00:00 Zehra Betts 350.1.13.10 [place] [phone] [address] 2019-07-20 2019-07-20 [facility] 1.2.840.114 [id number] [facility] 00:00:00 00:00:00 Zehra Betts 350.1.13.10 ity [place] [phone] [address] 2019-07-19 2019-07-[address] [facility] 1.2.840.114 [id number] Univers 00:00:00 00:00:00 Zehra A [place] 350.1.13.10 ity of [place] [phone] [facility] 044 [facility] 2019-07-16 2019-07-[address] [facility] 1.2.840.114 [id number] Univers 00:00:00 00:00:00 Zehra A [place] 350.1.13.10 ity of [place] [phone] [facility] 231 [facility] 2019-05-02 2019-05-02 [facility] 1.2.840.114 [id number] [facility] 00:00:00 00:00:00 Zehra A [place] 350.1.13.10 ity [place] [phone] [address] 2019-04-24 2019-04-24 [facility] 1.2.840.114 [id number] Univers 00:00:00 00:00:00 Zehra A [place] 350.1.13.10 ity of [place]2.[place] [phone] [address] 2019-04-20 2019-04-[address] [facility] 1.2.840.114 [id number] Univers 09:35:10 11:39:26 Visit Zehra A [place] 350.1.13.10 ity of [place] [phone] [address] 2019-04-20 2019-04-20 [id number] Univers 09:40:00 09:40:00 ZEHRA ity of [facility] 2019-04-20 2019-04-20 Orders Doctor SONI 1.2.840.114 [id number] Univers 00:00:00 00:00:00 Only Unassigned, JESUS 350.1.13.10 ity of [place] [facility] 4.2.7.2.686 Kyle as [phone] [address] 2019-01-23 2019-01-23 Orders Doctor NAE 1.2.840.114 [id number] Univers 00:00:00 00:00:00 Only Unassigned, JESUS 350.1.13.10 ity of [place] [facility] 4.2.7.2.686 Kyle as [phone] [address] 2018-10-20 2018-10-20 [facility] 1.2.840.114 [id number] Univers 00:00:00 00:00:00 Zehra A [place] 350.1.13.10 ity of [place] [phone] [facility] 044 [facility] 2018-10-19 2018-10-19 Telephone [facility] 1.2.840.114 [id number] Univers 00:00:00 00:00:00 Zehra A [place] 350.1.13.10 ity of [place] [phone] [address] 2018-09-28 2018-09-28 Refill Lindy, [facility] 1.2.840.114 [id number] Univers 00:00:00 00:00:00 Zehra A [place] 350.1.13.10 ity [place] [phone] [address] 2018-09-08 2018-09-08 Telephone [facility] 1.2.840.114 [id number] Univers 00:00:00 00:00:00 Zehra A [place] 350.1.13.10 ity of [place] [phone] [address] 2018-09-08 2018-09-08 Refill Lindy [facility] 1.2.840.114 [id number] [facility] 00:00:00 00:00:00 Zehra Betts 350.1.13.10 itGoldy 4.2.7.2.686 Elsa Bazzi [phone] Al dical nal [address] Building Results This patient has no known results.
--- NOTE | 2022-11-02 03:14 | EDPHYS ---
Physician Documentation [facility] Name: Hortensia Bergman Age: 77 yrs Sex: Female : 1945 Arrival Date: 11/02/2022 Time: 02:42 Bed 2 Private MD: Sabino [facility] ED Physician Usama Rascon HPI: 11/02 03:10 This 77 yrs old Female presents to ER via Ambulatory with complaints of sp4 Problem With Urinary Catheter. 03:10 77-year-old female presents with request for urinary catheter exchange. Patient states sp4 that her catheter has not been draining since midnight tonight. Patient feels bladder pressure and fullness.. Historical: - Allergies: 02:56 Codeine; as6 02:56 Iodine; as6 - PMHx: 02:56 abd hernia; diabetes mellitus; Hypercholesterolemia; Hypertensive disorder; as6 - PSHx: 02:56 Appendectomy; Cholecystectomy; as6 - Immunization history:: Client reports receiving the 2nd dose of the Covid vaccine, moderna. - Social history:: Smoking status: Patient denies any tobacco usage or history of. - Family history:: not pertinent. ROS: 03:10 Constitutional: Negative for fever, chills, and weight loss, : Negative for injury, sp4 bleeding, discharge, and swelling, positive nondraining urinary catheter 03:10 All other systems are negative, Exam: 03:10 Constitutional: This is a well developed, well nourished patient who is awake, alert, sp4 and in no acute distress. Head/Face: Normocephalic, atraumatic. Eyes: Pupils equal round and reactive to light, extra-ocular motions intact. Lids and lashes normal. Conjunctiva and sclera are not injected. Cornea within normal limits. Periorbital areas with no swelling, redness, or edema. ENT: Nares patent. No nasal discharge, no septal abnormalities noted. Tympanic membranes are normal and external auditory canals are clear. Oropharynx with no redness, swelling, or masses, exudates, or evidence of obstruction, uvula midline. Mucous membranes moist. Neck: Trachea midline, no thyromegaly or masses palpated, and no cervical lymphadenopathy. Supple, full range of motion without nuchal rigidity, or vertebral point tenderness. Chest/axilla: Normal chest wall appearance and motion. Nontender with no deformity. No lesions are appreciated. Cardiovascular: Regular rate and rhythm with a normal S1 and S2. No gallops, murmurs, or rubs. Normal PMI, no JVD. No pulse deficits. Respiratory: Lungs have equal breath sounds bilaterally, clear to auscultation and percussion. No rales, rhonchi or wheezes noted. No increased work of breathing, no retractions or nasal flaring. Abdomen/GI: Soft, non-tender, with normal bowel sounds. No distension or tympany. No guarding or rebound. No evidence of tenderness throughout. Back: No spinal tenderness. No costovertebral tenderness. Female : Normal external genitalia. Positive indwelling Valdez catheter with leg bag attached, urine turbid Skin: Warm, dry with normal turgor. Normal color with no rashes, no lesions, and no evidence of cellulitis. MS/ Extremity: Pulses equal, no cyanosis. Neurovascular intact. Full, normal range of motion. Neuro: Awake and alert, GCS 15, oriented to person, place, time, and situation. Cranial nerves II-XII grossly intact. Motor strength 5/5 in all extremities. Sensory grossly intact. Psych: Awake, alert, with orientation to person, place and time. Behavior, mood, and affect are within normal limits Vital Signs: 02:54 BP 150 / 68; Pulse 91; Resp 18 S; Temp 97.5(TE); Pulse Ox 98% on R/A; Weight 63.5 kg as6 (R); Height 4 ft. 11 in. (R); Pain 9/10; 02:54 Body Mass Index 28.28 (63.50 kg, 149.86 cm) as6 02:54 Pain Scale: Adult as6 MDM: 03:10 Differential Diagnosis Occluded urinary cath. Data reviewed: vital signs, nurses notes, sp4 old medical records. ED course: Catheter was exchanged and a new leg bag was provided, patient stable for discharge home. 03:14 Patient medically screened. sp4 11/02 03:10 Order name: Valdez; Complete Time: 03:33 sp4 11/02 03:10 Order name: Leg Bag; Complete Time: 03:33 sp4 Administered Medications: No medications were administered Disposition Summary: 11/02/22 03:14 Discharge Ordered Notes: Location: Home sp4 Problem: new sp4 Symptoms: have improved sp4 Condition: Stable sp4 Diagnosis - Mechanical complication of urinary (indwelling) catheter sp4 - Occluded urinary catheter sp4 Followup: sp4 - With: Private Physician - When: 2 - 3 days - Reason: Recheck today's complaints Discharge Instructions: - Discharge Summary Sheet sp4 - Indwelling Urinary Catheter Care, Adult, [id number] sp4 Forms: - Patient Portal Instructions sp4 Signatures: Agustin Yepez RN RN as6 Usama Rascon MD MD sp4
--- NOTE | 2022-11-02 03:14 | ER ---
Nurse's Notes [facility] Name: Hortensia Bergman Age: 77 yrs Sex: Female : 1945 Arrival Date: 11/02/2022 Time: 02:42 Bed 2 Private MD: Roland Gallo Diagnosis: Mechanical complication of urinary (indwelling) catheter;Occluded urinary catheter Presentation: 11/02 02:54 Chief complaint: Patient states: "I have a catheter and I emptied it around 0000 and it as6 feels clogged up and I'm having pain and pressure". Coronavirus screen: At this time, the client does not indicate any symptoms associated with coronavirus-19. Ebola Screen: No symptoms or risks identified at this time. Initial Sepsis Screen: Does the patient meet any 2 criteria? No. Patient's initial sepsis screen is negative. Does the patient have a suspected source of infection? No. Patient's initial sepsis screen is negative. Risk Assessment: Do you want to hurt yourself or someone else? Patient reports no desire to harm self or others. Onset of symptoms was November 02, 2022. 02:54 Method Of Arrival: Ambulatory as6 02:54 Acuity: SPARKLE 4 as6 Triage Assessment: 03:00 General: Appears in no apparent distress. uncomfortable, Behavior is calm, cooperative. jw7 Pain: Complains of pain in abdomen Pain does not radiate. Quality of pain is described as pressure, Pain began gradually, Is continuous. 03:00 EENT: No deficits noted. No signs and/or symptoms were reported regarding the EENT jw7 system. Neuro: No deficits noted. Small Agitation-Sedation Scale (RASS): 0 - Alert and Calm. Cardiovascular: No deficits noted. Respiratory: No deficits noted. GI: No deficits noted. No signs and/or symptoms were reported involving the gastrointestinal system. : Reports pain urgency. Derm: No deficits noted. No signs and/or symptoms reported regarding the dermatologic system. Musculoskeletal: No deficits noted. No signs and/or symptoms reported regarding the musculoskeletal system. Historical: - Allergies: 02:56 Codeine; as6 02:56 Iodine; as6 - PMHx: 02:56 abd hernia; diabetes mellitus; Hypercholesterolemia; Hypertensive disorder; as6 - PSHx: 02:56 Appendectomy; Cholecystectomy; as6 - Immunization history:: Client reports receiving the 2nd dose of the Covid vaccine, moderna. - Social history:: Smoking status: Patient denies any tobacco usage or history of. - Family history:: not pertinent. Screenin:33 [facility] ED Fall Risk Assessment (Adult) History of falling in the last 3 months, jw7 including since admission No falls in past 3 months (0 pts) Score/Fall Risk Level 0 - 2 = Low Risk. Abuse screen: Denies threats or abuse. Denies injuries from another. Nutritional screening: No deficits noted. Tuberculosis screening: No symptoms or risk factors identified. Vital Signs: 02:54 BP 150 / 68; Pulse 91; Resp 18 S; Temp 97.5(TE); Pulse Ox 98% on R/A; Weight 63.5 kg as6 (R); Height 4 ft. 11 in. (R); Pain 9/10; 02:54 Body Mass Index 28.28 (63.50 kg, 149.86 cm) as6 02:54 Pain Scale: Adult as6 ED Course: 02:44 Patient arrived in ED. mr 02:45 Roland Gallo, is Private Physician. mr 02:56 Triage completed. as6 02:57 Arm band placed on. as6 03:10 Usama Rascon MD is Attending Physician. sp4 03:33 Gabi Adhikari, LUDY is Primary Nurse. jw7 03:33 Patient has correct armband on for positive identification. Bed in low position. Call jw7 light in reach. Side rails up X2. 03:33 Valdez cath inserted, using sterile technique, 16 Fr., by mn, balloon inflated, to jw7 gravity drainage. 03:35 No provider procedures requiring assistance completed. Patient did not have IV access jw7 during this emergency room visit. 03:52 Provided Education on: discharge instructions. jw7 Administered Medications: No medications were administered Medication: 03:35 VIS not applicable for this client. jw7 Outcome: 03:14 Discharge ordered by . sp4 03:52 Discharged to home ambulatory, jw7 03:52 Condition: stable 03:52 Discharge instructions given to patient, Instructed on discharge instructions, follow up and referral plans. Demonstrated understanding of instructions, follow-up care, 03:52 Patient left the ED. jw7 Signatures: Ann Little, Evan Reg Agustin Leiva, RN RN as6 Gabi Adhikari, RN RN jw7 Usama Rascon MD MD sp4
[2022-11-02 04:19] VITALS: BP 150/68; TEMP 97.5; O2SAT 98
== END 2022-11-02 03:52 | disposition home or self-care (01) ==
LOC: ER 02:42
PROC: 0T9B80Z Drainage of Bladder with Drainage Device, Via Natural or Artificial Opening Endoscopic (ICD-10-PCS; principal; 2022-11-02)
DX: T83.098A Other mechanical complication of other urinary catheter, initial encounter (principal)

== ENCOUNTER 2023-06-03 16:57 | Emergency (ER) | payer OTHER ==
--- OUTSIDE RECORDS SUMMARY | 2023-06-03 17:06 | XMS REPORT | Continuity of Care Document ---
Author Name Unknown Address [address] [place] [address] [facility] Address [address] [place] [address] Care Team Providers Care Evp Managing Director Name Role Phone Ramiro Gallojaci Max Primary Care Physician [phone] Sabino Roland Mansoor Attending Clinician Unavailable KHOI LAN Attending Clinician ALPA Chew Attending Clinician Unavailable Nurse, [facility] Attending Clinician Alpa Tamayo MD Attending Clinician [phone] Doctor Unassigned, [place] Attending Clinician U navailable Unknown, Attending Attending Clinician Unavailab Ferguson, Bls Urogyn Attending Clinician UnavailEstrella Hernandes Attending Clinician [phone] ESTRELLA SMITH Attending Clinician UnavailJAMAR Woods Attending Clinician Unavailable Faustino Ralph MD Attending Clinician FAUSTINO RALPH Attending Clinician Molly talat DUNNE Attending Clinician Unavailable Jamar Lemus MD Attending Clinician [phone] Nurse, [facility] Surgery Gu Attending Clinician Karolina Judd Attending Clinician [phone] MELY KAROLINA Sunday Attending Clinician Unavailable Khoi Lan MD Attending Clinician [phone] Only, Adc Test Attending Clinician Unavailable Zehra Israel MD Attending Clinician + [phone] Pob, [facility] Lab Main Attending Clinician UnavailZEHRA Borges Attending Clinician KHOI Moffett Admitting Clinician Jefferson DUNNE Admitting Clinician Unavailable Khoi Lan MD Admitting Clinician [phone]- [phone] Payers Payer Name Policy Type Policy Number Effective Date Expirati on Date Source [employer] [place] [id number] 2020 00:00:00 MEDICARE PART A \\T\\ B [id number] 2000 00:00:[place] [id number] [facility] C1 [id number] [facility] Problems Condition Name Condition Details Condition Category Status Onset Date Resolution Date Last Treatment Date Treating Clinician Comments Source 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 compressio n Disease Active 2020-0 3- 00:00: 00 [facility] Spinal stenosis of lumbar region without neurogenic claudicati on Spinal stenosis of lumbar region without neurogenic claudicati on Disease Active 20200 - 00:00: 00 [facility] Decreased activities of daily living (ADL) Decreased activities of daily living (ADL) Disease Active 20200 3- 00:00: 00 [facility] 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 Disease Active 2020-0 3-08 00:00: 00 [facility] Vitamin B1 deficiency Vitamin B1 deficiency Disease Active 2020-0 3- 00:00: 00 [facility] B12 deficiency B12 deficiency Disease Active 20200 3-08 00:00: 00 [facility] Pyridoxine deficiency Pyridoxine deficiency Disease Active 2020-0 3- 00:00: 00 [facility] Vitamin D deficiency Vitamin D deficiency Disease Active 20200 3- 00:00: 00 [facility] Glaucoma suspect of both eyes Glaucoma suspect of both eyes Disease Active 04-17 00:00: 00 [facility] 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 [facility] Type 2 diabetes mellitus without complicati on, with long-term current use of insulin Type 2 diabetes mellitus without complicati on, with long-term current use of insulin Disease Active 08-25 00:00: 00 Overview: Formattin g of this note might be different from the original. 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 [facility] Essential hypertensi on, benign Essential hypertensi on, benign Disease Active 08-25 00:00: 00 [facility] HLD (hyperlipi demia) HLD (hyperlipi demia) Disease Active 08-25 00:00: 00 Overview: Formattin g of this note might be different from the original. 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 [facility] Generalize d osteoarthr osis, unspecifie d site Generalize d osteoarthr osis, unspecifie d site Disease Active 08-25 00:00: 00 [facility] [id number] Hypoglycem ia due to type 2 diabetes mellitus Problem [facility] [id number] Iron deficiency anemia, unspecifie d iron deficiency anemia type Problem [facility] [id number] Urinary incontinen ce, unspecifie d type Problem [facility] Echocardio gram abnormal Abnormal echocardio gram Problem [facility] [id number] Urinary catheter in place Problem [facility] [id number] Body mass index [BMI] 32.0-32.9, adult Problem [facility] [id number] Diabetic polyneurop athy associated with type 2 diabetes mellitus Problem [facility] [id number] Essential (primary) hypertensi on Problem [facility] [id number] Hypothyroi dism (acquired) Problem [facility] [id number] [facility] (current) use of insulin Problem [facility] [id number] Other obesity due to excess calories Problem [facility] [id number] Type 2 diabetes mellitus with hyperglyce alyssa Problem [facility] [id number] Mixed hyperlipid emia Problem [facility] Allergies, Adverse Reactions, Alerts Allergy Name Allergy Type Status Severity Reaction(s) Onset Date Inactive Date Treating Clinician Comments Source Iodine Propensi ty to adverse reaction s Active Hives 2005-02 00:00: 00 [facility] IODINE DRUG INGREDI Active Hives 2005-02 00:00: 00 [facility] Codeine Propensi ty to adverse reaction s Active Rash 08-25 00:00: 00 [facility] CODEINE DRUG INGREDI Active Rash 08-25 00:00: 00 [facility] codeine codeine Active hives [facility] 463 Drug allergy Active hives [facility] Social History Social Habit Start Date Stop Date Quantity Comments Source Gender identity [facility] Sexual orientation [facility] Sex Assigned At [facility] History of Tobacco Use [facility] Alcohol intake 2023-05-18 00:00:00 2023-05-18 00:00:00 Current non-drinker of alcohol (finding) [facility] Exposure to SARS-CoV-2 (event) 2022-06-13 00:00:00 2022-06-23 12:16:00 Not sure [facility] History of Social function 2021-06-04 00:00:00 2021-06-04 00:00:00 [facility] Smoking Status Start Date Stop Date Source Never smoked tobacco [facility] Medications Ordered Medication Name Filled Medication Name Start Date Stop Date Current Medication? Ordering Clinician Indication Dosage Frequency Signature (SIG) Comments Components Source Lantus 100 UNIT/ML Lantus 100 UNIT/ML 03-10 00:00: 00 No Lantus 100 UNIT/ML Cyanocobala min Cyanocobala min 03-10 00:00: 00 No 1000ug [facility] Lantus 100 UNIT/ML Lantus 100 UNIT/ML 03-10 00:00: 00 No Lantus 100 UNIT/ML Cyanocobala min Cyanocobala min 03-10 00:00: 00 No 1000ug [facility] Lantus 100 UNIT/ML Lantus 100 UNIT/ML 03-10 00:00: 00 No Lantus 100 UNIT/ML Cyanocobala min Cyanocobala min 03-10 00:00: 00 No 1000ug [facility] Lantus 100 UNIT/ML Lantus 100 UNIT/ML 03-10 00:00: 00 No Lantus 100 UNIT/ML Cyanocobala min Cyanocobala min 03-10 00:00: 00 No 1000ug [facility] Lantus 100 UNIT/ML Lantus 100 UNIT/ML 03-10 00:00: 00 No Lantus 100 UNIT/ML Cyanocobala min Cyanocobala min 03-10 00:00: 00 No 1000ug [facility] Cyanocobala min Cyanocobala min 2022-02 0- 00:00: 00 No 1000ug [facility] Cyanocobala min Cyanocobala min 2022-02 0- 00:00: 00 No 1000ug [facility] Cyanocobala min Cyanocobala min 2022-02 0- 00:00: 00 No 1000ug [facility] Cyanocobala min Cyanocobala min 2022-02 0-23 00:00: 00 No 1000ug [facility] Cyanocobala min Cyanocobala min 2022-02 0-23 00:00: 00 No 1000ug [facility] Cyanocobala min Cyanocobala min 2022-02 0-23 00:00: 00 No 1000ug [facility] Cyanocobala min Cyanocobala min 2022-02 0-23 00:00: 00 No 1000ug [facility] Cyanocobala min Cyanocobala min 2022-02 0-23 00:00: 00 No 1000ug [facility] Cyanocobala min Cyanocobala min 2022-02 0-23 00:00: 00 No 1000ug [facility] Cyanocobala min Cyanocobala min 2022-02 0-23 00:00: 00 No 1000ug [facility] Cyanocobala min Cyanocobala min 2022-02 0-23 00:00: 00 No 1000ug [facility] Cyanocobala min Cyanocobala min 2022-02 0-23 00:00: 00 No 1000ug [facility] Cyanocobala min Cyanocobala min 2022-02 0-23 00:00: 00 No 1000ug [facility] Cyanocobala min Cyanocobala min 2022-02 0-23 00:00: 00 No 1000ug [facility] Cyanocobala min Cyanocobala min 2022-02 0-23 00:00: 00 No 1000ug [facility] Cyanocobala min Cyanocobala min 2022-02 0-23 00:00: 00 No 1000ug [facility] Cyanocobala min Cyanocobala min 2022-02 0-23 00:00: 00 No 1000ug [facility] Cyanocobala min Cyanocobala min 2022-02 0-23 00:00: 00 No 1000ug [facility] Cyanocobala min Cyanocobala min 2022-0 7- 00:00: 00 No 1000ug [facility] Cyanocobala min Cyanocobala min 2022-0 - 00:00: 00 No 1000ug [facility] Cyanocobala min Cyanocobala min 2022-0 7- 00:00: 00 No 1000ug [facility] Cyanocobala min Cyanocobala min 2022-0 7- 00:00: 00 No 1000ug [facility] Cyanocobala min Cyanocobala min 2022-0 - 00:00: 00 No 1000ug [facility] Cyanocobala min Cyanocobala min 0 - 00:00: 00 No 1000ug [facility] Cyanocobala min Cyanocobala min 2022-0 - 00:00: 00 No 1000ug [facility] Cyanocobala min Cyanocobala min 0 - 00:00: 00 No 1000ug [facility] Cyanocobala min Cyanocobala min 0 - 00:00: 00 No 1000ug [facility] Cyanocobala min Cyanocobala min 0 - 00:00: 00 No 1000ug [facility] Cyanocobala min Cyanocobala min 0 - 00:00: 00 No 1000ug [facility] Cyanocobala min Cyanocobala min 2022-0 7- 00:00: 00 No 1000ug [facility] Cyanocobala min Cyanocobala min 2022-0 - 00:00: 00 No 1000ug [facility] Cyanocobala min Cyanocobala min 2022-0 7- 00:00: 00 No 1000ug [facility] Cyanocobala min Cyanocobala min 2022-0 7- 00:00: 00 No 1000ug [facility] Cyanocobala min Cyanocobala min 0 17 00:00: 00 No 1000ug [facility] Cyanocobala min Cyanocobala min 0 08-30 00:00: 00 No 1000ug [facility] Cyanocobala min Cyanocobala min 0 17 00:00: 00 No 1000ug [facility] fluconazole 150 mg tablet 08-25 00:00: 00 08-26 04:59 :00 No [id number] 150mg Take 1 tablet by mouth once now for 1 dose. Repeat dosage in 72 hours if symptoms persist. [facility] Nitrofurant oin&Nit. Macrocryst (MACROBID) 100 mg capsule 08-11 00:00: 00 08-17 04:59 :00 No 100mg Take 1 capsule by mouth in the morning and 1 capsule in the evening. Do all this for 5 days. [facility] Cyanocobala min Cyanocobala min 0 -17 00:00: 00 No 1000ug [facility] Cyanocobala min Cyanocobala min 0 -17 00:00: 00 No 1000ug [facility] Cyanocobala min Cyanocobala min 0 3-17 00:00: 00 No 1000ug [facility] Cyanocobala min Cyanocobala min 0 3-17 00:00: 00 No 1000ug [facility] Cyanocobala min Cyanocobala min 0 3-17 00:00: 00 No 1000ug [facility] Cyanocobala min Cyanocobala min 0 3-17 00:00: 00 No 1000ug [facility] Cyanocobala min Cyanocobala min 2022-0 3-17 00:00: 00 No 1000ug [facility] Cyanocobala min Cyanocobala min 2023-0 3-17 00:00: 00 No 1000ug [facility] Cyanocobala min Cyanocobala min 3-0 3-17 00:00: 00 No 1000ug [facility] Cyanocobala min Cyanocobala min 3-0 3-17 00:00: 00 No 1000ug [facility] Cyanocobala min Cyanocobala min 3-0 3-17 00:00: 00 No 1000ug [facility] Cyanocobala min Cyanocobala min 3-0 3-17 00:00: 00 No 1000ug [facility] Cyanocobala min Cyanocobala min 3-0 3-17 00:00: 00 No 1000ug [facility] Cyanocobala min Cyanocobala min 3-0 3-17 00:00: 00 No 1000ug [facility] Cyanocobala min Cyanocobala min 3-0 3-17 00:00: 00 No 1000ug [facility] Cyanocobala min Cyanocobala min 3-0 3-17 00:00: 00 No 1000ug [facility] Cyanocobala min Cyanocobala min 3-0 3-17 00:00: 00 No 1000ug [facility] Cyanocobala min Cyanocobala min 2022-0 3-17 00:00: 00 No 1000ug [facility] One Touch Glucose Monitor N/S One Touch Glucose Monitor N/S 2022-0 3-08 00:00: 00 No One Touch Glucose Monitor N/S One Touch Glucose Monitor N/S One Touch Glucose Monitor N/S 3-0 3-08 00:00: 00 No One Touch Glucose Monitor N/S One Touch Glucose Monitor N/S One Touch Glucose Monitor N/S 3-0 3-08 00:00: 00 No One Touch Glucose Monitor N/S One Touch Glucose Monitor N/S One Touch Glucose Monitor N/S 3-0 3-08 00:00: 00 No One Touch Glucose Monitor N/S One Touch Glucose Monitor N/S One Touch Glucose Monitor N/S 2023-0 3-08 00:00: 00 No One Touch Glucose Monitor N/S One Touch Glucose Monitor N/S One Touch Glucose Monitor N/S 2023-0 3-08 00:00: 00 No One Touch Glucose Monitor N/S One Touch Glucose Monitor N/S One Touch Glucose Monitor N/S 3-0 3-08 00:00: 00 No One Touch Glucose Monitor N/S One Touch Glucose Monitor N/S One Touch Glucose Monitor N/S 2023-0 3-08 00:00: 00 No One Touch Glucose Monitor N/S One Touch Glucose Monitor N/S One Touch Glucose Monitor N/S 3-0 3-08 00:00: 00 No One Touch Glucose Monitor N/S One Touch Glucose Monitor N/S One Touch Glucose Monitor N/S 3-0 3-08 00:00: 00 No One Touch Glucose Monitor N/S One Touch Glucose Monitor N/S One Touch Glucose Monitor N/S 2023-0 3-08 00:00: 00 No One Touch Glucose Monitor N/S One Touch Glucose Monitor N/S One Touch Glucose Monitor N/S 3-0 3-08 00:00: 00 No One Touch Glucose Monitor N/S One Touch Glucose Monitor N/S One Touch Glucose Monitor N/S 3-0 3-08 00:00: 00 No One Touch Glucose Monitor N/S One Touch Glucose Monitor N/S One Touch Glucose Monitor N/S 3-0 3-08 00:00: 00 No One Touch Glucose Monitor N/S One Touch Glucose Monitor N/S One Touch Glucose Monitor N/S 3-0 3-08 00:00: 00 No One Touch Glucose Monitor N/S One Touch Glucose Monitor N/S One Touch Glucose Monitor N/S 2023-0 3-08 00:00: 00 No One Touch Glucose Monitor N/S One Touch Glucose Monitor N/S One Touch Glucose Monitor N/S 2023-0 3-08 00:00: 00 No One Touch Glucose Monitor N/S One Touch Glucose Monitor N/S One Touch Glucose Monitor N/S 2023-0 3-08 00:00: 00 No One Touch Glucose Monitor N/S Insulin Syringe 31G X 5/16" 0.3 ML Insulin Syringe 31G X 5/16" 0.3 ML 2022-1 0-20 00:00: 00 No Insulin Syringe 31G X 5/16" 0.3 ML Insulin Syringe 31G X 5/16" 0.3 ML Insulin Syringe 31G X 5/16" 0.3 ML 2021-02 0-20 00:00: 00 No Insulin Syringe 31G X 5/16" 0.3 ML Insulin Syringe 31G X 5/16" 0.3 ML Insulin Syringe 31G X 5/16" 0.3 ML 2021-02 0-20 00:00: 00 No Insulin Syringe 31G X 5/16" 0.3 ML Insulin Syringe 31G X 5/16" 0.3 ML Insulin Syringe 31G X 5/16" 0.3 ML 2021-02 0-20 00:00: 00 No Insulin Syringe 31G X 5/16" 0.3 ML Insulin Syringe 31G X 5/16" 0.3 ML Insulin Syringe 31G X 5/16" 0.3 ML 2021-02 0-20 00:00: 00 No Insulin Syringe 31G X 5/16" 0.3 ML Insulin Syringe 31G X 5/16" 0.3 ML Insulin Syringe 31G X 5/16" 0.3 ML 2021-02 0-20 00:00: 00 No Insulin Syringe 31G X 5/16" 0.3 ML Insulin Syringe 31G X 5/16" 0.3 ML Insulin Syringe 31G X 5/16" 0.3 ML 2021-02 0-20 00:00: 00 No Insulin Syringe 31G X 5/16" 0.3 ML Insulin Syringe 31G X 5/16" 0.3 ML Insulin Syringe 31G X 5/16" 0.3 ML 2021-02 0-20 00:00: 00 No Insulin Syringe 31G X 5/16" 0.3 ML Insulin Syringe 31G X 5/16" 0.3 ML Insulin Syringe 31G X 5/16" 0.3 ML 2021-02 0-20 00:00: 00 No Insulin Syringe 31G X 5/16" 0.3 ML sulfamethox azole-trime thoprim (BACTRIM DS) 800-160 mg per tablet 2021-02 0-04 00:00: 00 11-23 04:59 :00 No [id number] 1{tbl} Take 1 tablet by mouth in the morning and 1 tablet in the evening. Do all this for 5 days. [facility] Lantus 100 UNIT/ML Lantus 100 UNIT/ML 6-13 00:00: 00 No QD Lantus 100 UNIT/ML Lantus 100 UNIT/ML Lantus 100 UNIT/ML 6-13 00:00: 00 No QD Lantus 100 UNIT/ML tamsulosin 0.4 mg 24 hr capsule 4-21 00:00: 00 Yes [id number] .4mg Take 1 capsule by mouth daily. [facility] Pregabalin 300 MG Pregabalin 300 MG 3-30 00:00: 00 No 1{capsu le} TID Pregabalin 300 MG Pregabalin 300 MG Pregabalin 300 MG 3-30 00:00: 00 No 1{capsu le} TID Pregabalin 300 MG Pregabalin 300 MG Pregabalin 300 MG 3-30 00:00: 00 No 1{capsu le} TID Pregabalin 300 MG furosemide 20 mg tablet 3-15 00:00: 00 Yes 20mg Take 20 mg by mouth daily. [facility] Bactrim DS 800-160 MG Bactrim DS 800-160 MG 1-28 00:00: 00 03-18 00:00 :00 No 1{table t} BID Bactrim DS 800-160 MG Pregabalin 300 MG Pregabalin 300 MG 2020-02 2-10 00:00: 00 No 1{capsu le} TID Pregabalin 300 MG Pregabalin 300 MG 2020-02 2-10 00:00: 00 No 1{capsu le} TID Pregabalin 300 MG BD VEO INSULIN SYR, HALF UNIT, 0.3 mL 31 gauge x 15/64" Syrg 2020-02 0-04 00:00: 00 Yes [id number] USE DIRECTED 4 TIMES DAILY [facility] PREGABALIN 300 mg capsule 6-05 00:00: 00 Yes [id number] Take 1 capsule by mouth twice daily [facility] blood sugar diagnostic strip 04-19 00:00: 00 Yes [id number] Check sugars 2-3 times a day. Dx Code E11.9. AccuChek guide me brand. [facility] blood sugar diagnostic strip 04-19 00:00: 00 Yes [id number] Check sugars 2-3 times a day. Dx Code E11.9. [employer] guide me brand. [facility] losartan 100 mg tablet 2018-02 00:00: 00 Yes [id number] 100mg Take 1 tablet by mouth daily. For blood pressure [facility] insulin glargine (LANTUS U-100 INSULIN) 100 unit/mL injection 2018-02 00:00: 00 Yes [id number] 30U inject 30 Units under the skin at bedtime. [facility] atorvastati n (LIPITOR) 20 mg tablet 2018-02 00:00: 00 Yes [id number] 20mg Take 1 tablet by mouth at bedtime. For cholestero l [facility] insulin regular human (HUMULIN R REGULAR U-100 INSULN) 100 unit/mL injection 2018-02 014 00:00: 00 Yes [id number] 5U inject 5 Units under the skin 3 (three) times daily before meals. [facility] meloxicam 15 mg tablet 10-23 00:00: 00 Yes [id number] 15mg Take 1 tablet by mouth daily. [facility] cholecalcif tamika, vitamin D3, 1,000 unit tablet 08-21 00:00: 00 Yes [id number] Unsure of dose. [facility] vitamin B-12 1,000 mcg tablet 08-21 00:00: 00 Yes [id number] 5000ug Take 5 tablets by mouth daily. [facility] vitamin B-1 (VITAMIN B-1) 50 mg tablet 08-21 00:00: 00 Yes [id number] 50mg Take 1 tablet by mouth daily. [facility] turmeric root extract 500 mg Cap 411 00:00: 00 Yes [id number] 1{tbl} Take 1 tablet by mouth daily. [facility] turmeric root extract 500 mg Cap 05-25 00:00: 00 Yes [id number] 1{tbl} Take 1 tablet by mouth daily. [facility] Insulin Syringes, Disposable, 1 mL Syrg 03-07 00:00: 00 Yes Check Fingerstic k blood glucose qid. Please dispense the relion syringes. RX#[id number] ICD-E11.9 [facility] Insulin Syringes, Disposable, 1 mL Syrg 03-07 00:00: 00 Yes Check Fingerstic k blood glucose qid. Please dispense the relion syringes. RX#[id number] ICD-E11.9 [facility] Lancets & Blood Glucose Strips (ONE TOUCH COMBO) [facility] 09-25 00:00: 00 Yes [id number] [facility] Lancets & Blood Glucose Strips (ONE TOUCH COMBO) [facility] 09-25 00:00: 00 Yes [id number] [facility] Cushion (CERVICAL PILLOW/COVE R) [facility] 2011-02 00:00: 00 Yes [id number] [facility] Cushion (CERVICAL PILLOW/COVE R) [facility] 2011-02 00:00: 00 Yes [id number] [facility] Metformin HCl 1000 MG Metformin HCl 1000 MG No 1{table t_with_ meals} BID Metformin HCl 1000 MG Levothyroxi ne Sodium 125 MCG Levothyroxi ne Sodium 125 MCG No Levothyrox ine Sodium 125 MCG OneTouch Ultra - OneTouch Ultra - No OneTouch Ultra - Furosemide 20 MG Furosemide 20 MG No 1{table t} QD Furosemide 20 MG BD Veo Insulin Syringe U/F 31G X 15/64" 0.3 ML BD Veo Insulin Syringe U/F 31G X 15/64" 0.3 ML No BD Veo Insulin Syringe U/F 31G X 15/64" 0.3 ML Estradiol 0.1 MG/GM Estradiol 0.1 MG/GM No Estradiol 0.1 MG/GM Euthyrox 125 MCG Euthyrox 125 MCG No QD Euthyrox 125 MCG Losartan Potassium 100 MG Losartan Potassium 100 MG No 1{table t} QD Losartan Potassium 100 MG Atorvastati n Calcium 20 MG Atorvastati n Calcium 20 MG No 1{table t} QD Atorvastat in Calcium 20 MG hydroCHLORO thiazide 50 MG hydroCHLORO thiazide 50 MG No 1{table t_in e_morni ng} QD hydroCHLOR Othiazide 50 MG Folic Acid 1 MG Folic Acid 1 MG No 1{table t} QD Folic Acid 1 MG Metformin HCl 1000 MG Metformin HCl 1000 MG No 1{table t_with_ meals} BID Metformin HCl 1000 MG Levothyroxi ne Sodium 125 MCG Levothyroxi ne Sodium 125 MCG No Levothyrox ine Sodium 125 MCG OneTouch Ultra - OneTouch Ultra - No OneTouch Ultra - Furosemide 20 MG Furosemide 20 MG No 1{table t} QD Furosemide 20 MG BD Veo Insulin Syringe U/F 31G X 15/" 0.3 ML BD Veo Insulin Syringe U/F 31G X 15" 0.3 ML No BD Veo Insulin Syringe U/F 31G X 15/64" 0.3 ML Estradiol 0.1 MG/GM Estradiol 0.1 MG/GM No Estradiol 0.1 MG/GM Euthyrox 125 MCG Euthyrox 125 MCG No QD Euthyrox 125 MCG Losartan Potassium 100 MG Losartan Potassium 100 MG No 1{table t} QD Losartan Potassium 100 MG Atorvastati n Calcium 20 MG Atorvastati n Calcium 20 MG No 1{table t} QD Atorvastat in Calcium 20 MG hydroCHLORO thiazide 50 MG hydroCHLORO thiazide 50 MG No 1{table t_in e_morni ng} QD hydroCHLOR Othiazide 50 MG Folic Acid 1 MG Folic Acid 1 MG No 1{table t} QD Folic Acid 1 MG Metformin HCl 1000 MG Metformin HCl 1000 MG No 1{table t_with_ meals} BID Metformin HCl 1000 MG Levothyroxi ne Sodium 125 MCG Levothyroxi ne Sodium 125 MCG No Levothyrox ine Sodium 125 MCG OneTouch Ultra - OneTouch Ultra - No OneTouch Ultra - Furosemide 20 MG Furosemide 20 MG No 1{table t} QD Furosemide 20 MG BD Veo Insulin Syringe U/F 31G X 15/64" 0.3 ML BD Veo Insulin Syringe U/F 31G X 15/64" 0.3 ML No BD Veo Insulin Syringe U/F 31G X 15/64" 0.3 ML Estradiol 0.1 MG/GM Estradiol 0.1 MG/GM No Estradiol 0.1 MG/GM Euthyrox 125 MCG Euthyrox 125 MCG No QD Euthyrox 125 MCG Losartan Potassium 100 MG Losartan Potassium 100 MG No 1{table t} QD Losartan Potassium 100 MG Atorvastati n Calcium 20 MG Atorvastati n Calcium 20 MG No 1{table t} QD Atorvastat in Calcium 20 MG hydroCHLORO thiazide 50 MG hydroCHLORO thiazide 50 MG No 1{table t_in e_morni ng} QD hydroCHLOR Othiazide 50 MG Folic Acid 1 MG Folic Acid 1 MG No 1{table t} QD Folic Acid 1 MG Lantus SoloStar 100 UNIT/ML Lantus SoloStar 100 UNIT/ML No QD Metformin HCl 1000 MG Metformin HCl 1000 MG No 1{table t_with_ meals} BID Metformin HCl 1000 MG Levothyroxi ne Sodium 125 MCG Levothyroxi ne Sodium 125 MCG No Levothyrox ine Sodium 125 MCG BD Veo Insulin Syringe U/F 31G X 15/64" 0.3 ML BD Veo Insulin Syringe U/F 31G X 15/64" 0.3 ML No BD Veo Insulin Syringe U/F 31G X 15/64" 0.3 ML Furosemide 20 MG Furosemide 20 MG No 1{table t} QD Furosemide 20 MG Zinc Zinc No OneTouch Ultra - OneTouch Ultra - No OneTouch Ultra - Estradiol 0.1 MG/GM Estradiol 0.1 MG/GM No Estradiol 0.1 MG/GM Euthyrox 125 MCG Euthyrox 125 MCG No QD Euthyrox 125 MCG Losartan Potassium 100 MG Losartan Potassium 100 MG No 1{table t} QD Losartan Potassium 100 MG Atorvastati n Calcium 20 MG Atorvastati n Calcium 20 MG No 1{table t} QD Atorvastat in Calcium 20 MG hydroCHLORO thiazide 50 MG hydroCHLORO thiazide 50 MG No 1{table t_in e_morni ng} QD hydroCHLOR Othiazide 50 MG Folic Acid 1 MG Folic Acid 1 MG No 1{table t} QD Folic Acid 1 MG Metformin HCl 1000 MG Metformin HCl 1000 MG No 1{table t_with_ meals} QD Losartan Potassium 100 MG Losartan Potassium 100 MG No 1{table t} QD hydroCHLORO thiazide 50 MG hydroCHLORO thiazide 50 MG No 1{table t_in_th e_morni ng} QD Atorvastati n Calcium 20 MG Atorvastati n Calcium 20 MG No 1{table t} QD Euthyrox 100 MCG Euthyrox 100 MCG No QD HumuLIN R 100 UNIT/ML HumuLIN R 100 UNIT/ML No TID Pyridium 200 MG Pyridium 200 MG No 1{table t_after _meals} TID Macrobid 100 MG Macrobid 100 MG No BID hydroCHLORO thiazide 50 MG hydroCHLORO thiazide 50 MG No 1{table t_in_ e_morni ng} QD hydroCHLOR Othiazide 50 MG HumuLIN R 100 UNIT/ML HumuLIN R 100 UNIT/ML No TID HumuLIN R 100 UNIT/ML Macrobid 100 MG Macrobid 100 MG No BID Macrobid 100 MG Zinc Zinc No Zinc Euthyrox 100 MCG Euthyrox 100 MCG No QD Euthyrox 100 MCG Pyridium 200 MG Pyridium 200 MG No 1{table t_after _meals} TID Pyridium 200 MG Atorvastati n Calcium 20 MG Atorvastati n Calcium 20 MG No 1{table t} QD Atorvastat in Calcium 20 MG Lantus SoloStar 100 UNIT/ML Lantus SoloStar 100 UNIT/ML No QD Lantus SoloStar 100 UNIT/ML Losartan Potassium 100 MG Losartan Potassium 100 MG No 1{table t} QD Losartan Potassium 100 MG Metformin HCl 1000 MG Metformin HCl 1000 MG No 1{table t_with_ meals} QD Metformin HCl 1000 MG Ciprofloxac in HCl 500 MG Ciprofloxac in HCl 500 MG No 1{table t} BID Ciprofloxa sarah HCl 500 MG Folic Acid 1 MG Folic Acid 1 MG No 1{table t} QD Folic Acid 1 MG Zinc Zinc No Zinc Ciprofloxac in HCl 500 MG Ciprofloxac in HCl 500 MG No 1{table t} BID Ciprofloxa sarah HCl 500 MG Pyridium 200 MG Pyridium 200 MG No 1{table t_after _meals} TID Pyridium 200 MG Macrobid 100 MG Macrobid 100 MG No BID Macrobid 100 MG Metformin HCl 1000 MG Metformin HCl 1000 MG No 1{table t_with_ meals} QD Metformin HCl 1000 MG Atorvastati n Calcium 20 MG Atorvastati n Calcium 20 MG No 1{table t} QD Atorvastat in Calcium 20 MG Losartan Potassium 100 MG Losartan Potassium 100 MG No 1{table t} QD Losartan Potassium 100 MG Lantus SoloStar 100 UNIT/ML Lantus SoloStar 100 UNIT/ML No QD Lantus SoloStar 100 UNIT/ML Euthyrox 100 MCG Euthyrox 100 MCG No QD Euthyrox 100 MCG Folic Acid 1 MG Folic Acid 1 MG No 1{table t} QD Folic Acid 1 MG hydroCHLORO thiazide 50 MG hydroCHLORO thiazide 50 MG No 1{table t_in_ e_morni ng} QD hydroCHLOR Othiazide 50 MG Euthyrox 125 MCG Euthyrox 125 MCG No QD Euthyrox 125 MCG Furosemide 20 MG Furosemide 20 MG No 1{table t} QD Furosemide 20 MG hydroCHLORO thiazide 50 MG hydroCHLORO thiazide 50 MG No 1{table t_in_ e_morni ng} QD hydroCHLOR Othiazide 50 MG Euthyrox 125 MCG Euthyrox 125 MCG No QD Euthyrox 125 MCG Furosemide 20 MG Furosemide 20 MG No 1{table t} QD Furosemide 20 MG Metformin HCl 1000 MG Metformin HCl 1000 MG No 1{table t_with_ meals} BID Metformin HCl 1000 MG Pyridium 200 MG Pyridium 200 MG No 1{table t_after _meals} TID Pyridium 200 MG Macrobid 100 MG Macrobid 100 MG No BID Macrobid 100 MG Ciprofloxac in HCl 500 MG Ciprofloxac in HCl 500 MG No 1{table t} BID Ciprofloxa sarah HCl 500 MG Vitamin B12 Vitamin B12 No Vi tamin B12 Atorvastati n Calcium 20 MG Atorvastati n Calcium 20 MG No 1{table t} QD Atorvastat in Calcium 20 MG Losartan Potassium 100 MG Losartan Potassium 100 MG No 1{table t} QD Losartan Potassium 100 MG Folic Acid 1 MG Folic Acid 1 MG No 1{table t} QD Folic Acid 1 MG Lantus SoloStar 100 UNIT/ML Lantus SoloStar 100 UNIT/ML No QD Lantus SoloStar 100 UNIT/ML Losartan Potassium 100 MG Losartan Potassium 100 MG No 1{table t} QD Losartan Potassium 100 MG Super Calcium 600 + D3 Super Calcium 600 + D3 No Super Calcium 600 + D3 hydroCHLORO thiazide 50 MG hydroCHLORO thiazide 50 MG No 1{table t_in_ e_morni ng} QD hydroCHLOR Othiazide 50 MG Pyridium 200 MG Pyridium 200 MG No 1{table t_after _meals} TID Pyridium 200 MG Macrobid 100 MG Macrobid 100 MG No BID Macrobid 100 MG Metformin HCl 1000 MG Metformin HCl 1000 MG No 1{table t_with_ meals} BID Metformin HCl 1000 MG Lantus SoloStar 100 UNIT/ML Lantus SoloStar 100 UNIT/ML No QD Lantus SoloStar 100 UNIT/ML Atorvastati n Calcium 20 MG Atorvastati n Calcium 20 MG No 1{table t} QD Atorvastat in Calcium 20 MG Folic Acid 1 MG Folic Acid 1 MG No 1{table t} QD Folic Acid 1 MG Ciprofloxac in HCl 500 MG Ciprofloxac in HCl 500 MG No 1{table t} BID Ciprofloxa sarah HCl 500 MG Furosemide 20 MG Furosemide 20 MG No 1{table t} QD Furosemide 20 MG Euthyrox 125 MCG Euthyrox 125 MCG No QD Euthyrox 125 MCG Euthyrox 125 MCG Euthyrox 125 MCG No QD Euthyrox 125 MCG Losartan Potassium 100 MG Losartan Potassium 100 MG No 1{table t} QD Losartan Potassium 100 MG Atorvastati n Calcium 20 MG Atorvastati n Calcium 20 MG No 1{table t} QD Atorvastat in Calcium 20 MG OneTouch Ultra - OneTouch Ultra - No OneTouch Ultra - hydroCHLORO thiazide 50 MG hydroCHLORO thiazide 50 MG No hydroCHLOR Othiazide 50 MG Lantus SoloStar 100 UNIT/ML Lantus SoloStar 100 UNIT/ML No QD Lantus SoloStar 100 UNIT/ML Metformin HCl 1000 MG Metformin HCl 1000 MG No 1{table t_with_ meals} BID Metformin HCl 1000 MG Lantus 100 UNIT/ML Lantus 100 UNIT/ML No QD Lantus 100 UNIT/ML Estradiol 0.1 MG/GM Estradiol 0.1 MG/GM No Estradiol 0.1 MG/GM Furosemide 20 MG Furosemide 20 MG No 1{table t} QD Furosemide 20 MG Folic Acid 1 MG Folic Acid 1 MG No 1{table t} QD Folic Acid 1 MG Euthyrox 125 MCG Euthyrox 125 MCG No QD Euthyrox 125 MCG Losartan Potassium 100 MG Losartan Potassium 100 MG No 1{table t} QD Losartan Potassium 100 MG Atorvastati n Calcium 20 MG Atorvastati n Calcium 20 MG No 1{table t} QD Atorvastat in Calcium 20 MG OneTouch Ultra - OneTouch Ultra - No OneTouch Ultra - hydroCHLORO thiazide 50 MG hydroCHLORO thiazide 50 MG No hydroCHLOR Othiazide 50 MG Lantus SoloStar 100 UNIT/ML Lantus SoloStar 100 UNIT/ML No QD Lantus SoloStar 100 UNIT/ML Metformin HCl 1000 MG Metformin HCl 1000 MG No 1{table t_with_ meals} BID Metformin HCl 1000 MG Lantus 100 UNIT/ML Lantus 100 UNIT/ML No QD Lantus 100 UNIT/ML Estradiol 0.1 MG/GM Estradiol 0.1 MG/GM No Estradiol 0.1 MG/GM Furosemide 20 MG Furosemide 20 MG No 1{table t} QD Furosemide 20 MG Folic Acid 1 MG Folic Acid 1 MG No 1{table t} QD Folic Acid 1 MG Euthyrox 125 MCG Euthyrox 125 MCG No QD Euthyrox 125 MCG Losartan Potassium 100 MG Losartan Potassium 100 MG No 1{table t} QD Losartan Potassium 100 MG Atorvastati n Calcium 20 MG Atorvastati n Calcium 20 MG No 1{table t} QD Atorvastat in Calcium 20 MG HumuLIN 70/30 KwikPen (70-30) 100 UNIT/ML HumuLIN 70/30 KwikPen (70-30) 100 UNIT/ML No TID HumuLIN 70/30 KwikPen (70-30) 100 UNIT/ML OneTouch Ultra - OneTouch Ultra - No OneTouch Ultra - hydroCHLORO thiazide 50 MG hydroCHLORO thiazide 50 MG No hydroCHLOR Othiazide 50 MG Lantus SoloStar 100 UNIT/ML Lantus SoloStar 100 UNIT/ML No QD Lantus SoloStar 100 UNIT/ML Metformin HCl 1000 MG Metformin HCl 1000 MG No 1{table t_with_ meals} BID Metformin HCl 1000 MG Lantus 100 UNIT/ML Lantus 100 UNIT/ML No QD Lantus 100 UNIT/ML Estradiol 0.1 MG/GM Estradiol 0.1 MG/GM No Estradiol 0.1 MG/GM Furosemide 20 MG Furosemide 20 MG No 1{table t} QD Furosemide 20 MG Folic Acid 1 MG Folic Acid 1 MG No 1{table t} QD Folic Acid 1 MG Euthyrox 125 MCG Euthyrox 125 MCG No QD Euthyrox 125 MCG Losartan Potassium 100 MG Losartan Potassium 100 MG No 1{table t} QD Losartan Potassium 100 MG Atorvastati n Calcium 20 MG Atorvastati n Calcium 20 MG No 1{table t} QD Atorvastat in Calcium 20 MG OneTouch Ultra - OneTouch Ultra - No OneTouch Ultra - hydroCHLORO thiazide 50 MG hydroCHLORO thiazide 50 MG No hydroCHLOR Othiazide 50 MG Lantus SoloStar 100 UNIT/ML Lantus SoloStar 100 UNIT/ML No QD Lantus SoloStar 100 UNIT/ML Metformin HCl 1000 MG Metformin HCl 1000 MG No 1{table t_with_ meals} BID Metformin HCl 1000 MG Lantus 100 UNIT/ML Lantus 100 UNIT/ML No QD Lantus 100 UNIT/ML Estradiol 0.1 MG/GM Estradiol 0.1 MG/GM No Estradiol 0.1 MG/GM Furosemide 20 MG Furosemide 20 MG No 1{table t} QD Furosemide 20 MG Folic Acid 1 MG Folic Acid 1 MG No 1{table t} QD Folic Acid 1 MG Euthyrox 125 MCG Euthyrox 125 MCG No QD Euthyrox 125 MCG Losartan Potassium 100 MG Losartan Potassium 100 MG No 1{table t} QD Losartan Potassium 100 MG Atorvastati n Calcium 20 MG Atorvastati n Calcium 20 MG No 1{table t} QD Atorvastat in Calcium 20 MG OneTouch Ultra - OneTouch Ultra - No OneTouch Ultra - hydroCHLORO thiazide 50 MG hydroCHLORO thiazide 50 MG No hydroCHLOR Othiazide 50 MG Lantus SoloStar 100 UNIT/ML Lantus SoloStar 100 UNIT/ML No QD Lantus SoloStar 100 UNIT/ML Metformin HCl 1000 MG Metformin HCl 1000 MG No 1{table t_with_ meals} BID Metformin HCl 1000 MG Lantus 100 UNIT/ML Lantus 100 UNIT/ML No QD Lantus 100 UNIT/ML Estradiol 0.1 MG/GM Estradiol 0.1 MG/GM No Estradiol 0.1 MG/GM Furosemide 20 MG Furosemide 20 MG No 1{table t} QD Furosemide 20 MG Folic Acid 1 MG Folic Acid 1 MG No 1{table t} QD Folic Acid 1 MG Euthyrox 125 MCG Euthyrox 125 MCG No QD Euthyrox 125 MCG Losartan Potassium 100 MG Losartan Potassium 100 MG No 1{table t} QD Losartan Potassium 100 MG Atorvastati n Calcium 20 MG Atorvastati n Calcium 20 MG No 1{table t} QD Atorvastat in Calcium 20 MG OneTouch Ultra - OneTouch Ultra - No OneTouch Ultra - hydroCHLORO thiazide 50 MG hydroCHLORO thiazide 50 MG No hydroCHLOR Othiazide 50 MG Lantus SoloStar 100 UNIT/ML Lantus SoloStar 100 UNIT/ML No QD Lantus SoloStar 100 UNIT/ML Metformin HCl 1000 MG Metformin HCl 1000 MG No 1{table t_with_ meals} BID Metformin HCl 1000 MG Lantus 100 UNIT/ML Lantus 100 UNIT/ML No QD Lantus 100 UNIT/ML Estradiol 0.1 MG/GM Estradiol 0.1 MG/GM No Estradiol 0.1 MG/GM Furosemide 20 MG Furosemide 20 MG No 1{table t} QD Furosemide 20 MG Folic Acid 1 MG Folic Acid 1 MG No 1{table t} QD Folic Acid 1 MG Euthyrox 125 MCG Euthyrox 125 MCG No QD Euthyrox 125 MCG Losartan Potassium 100 MG Losartan Potassium 100 MG No 1{table t} QD Losartan Potassium 100 MG Atorvastati n Calcium 20 MG Atorvastati n Calcium 20 MG No 1{table t} QD Atorvastat in Calcium 20 MG OneTouch Ultra - OneTouch Ultra - No OneTouch Ultra - hydroCHLORO thiazide 50 MG hydroCHLORO thiazide 50 MG No hydroCHLOR Othiazide 50 MG Lantus SoloStar 100 UNIT/ML Lantus SoloStar 100 UNIT/ML No QD Lantus SoloStar 100 UNIT/ML Metformin HCl 1000 MG Metformin HCl 1000 MG No 1{table t_with_ meals} BID Metformin HCl 1000 MG Lantus 100 UNIT/ML Lantus 100 UNIT/ML No QD Lantus 100 UNIT/ML Estradiol 0.1 MG/GM Estradiol 0.1 MG/GM No Estradiol 0.1 MG/GM Furosemide 20 MG Furosemide 20 MG No 1{table t} QD Furosemide 20 MG Folic Acid 1 MG Folic Acid 1 MG No 1{table t} QD Folic Acid 1 MG Euthyrox 125 MCG Euthyrox 125 MCG No QD Euthyrox 125 MCG Losartan Potassium 100 MG Losartan Potassium 100 MG No 1{table t} QD Losartan Potassium 100 MG Atorvastati n Calcium 20 MG Atorvastati n Calcium 20 MG No 1{table t} QD Atorvastat in Calcium 20 MG OneTouch Ultra - OneTouch Ultra - No OneTouch Ultra - hydroCHLORO thiazide 50 MG hydroCHLORO thiazide 50 MG No hydroCHLOR Othiazide 50 MG Lantus SoloStar 100 UNIT/ML Lantus SoloStar 100 UNIT/ML No QD Lantus SoloStar 100 UNIT/ML Metformin HCl 1000 MG Metformin HCl 1000 MG No 1{table t_with_ meals} BID Metformin HCl 1000 MG Lantus 100 UNIT/ML Lantus 100 UNIT/ML No QD Lantus 100 UNIT/ML Estradiol 0.1 MG/GM Estradiol 0.1 MG/GM No Estradiol 0.1 MG/GM Furosemide 20 MG Furosemide 20 MG No 1{table t} QD Furosemide 20 MG Folic Acid 1 MG Folic Acid 1 MG No 1{table t} QD Folic Acid 1 MG Euthyrox 125 MCG Euthyrox 125 MCG No QD Euthyrox 125 MCG Losartan Potassium 100 MG Losartan Potassium 100 MG No 1{table t} QD Losartan Potassium 100 MG Atorvastati n Calcium 20 MG Atorvastati n Calcium 20 MG No 1{table t} QD Atorvastat in Calcium 20 MG OneTouch Ultra - OneTouch Ultra - No OneTouch Ultra - hydroCHLORO thiazide 50 MG hydroCHLORO thiazide 50 MG No hydroCHLOR Othiazide 50 MG Lantus SoloStar 100 UNIT/ML Lantus SoloStar 100 UNIT/ML No QD Lantus SoloStar 100 UNIT/ML Metformin HCl 1000 MG Metformin HCl 1000 MG No 1{table t_with_ meals} BID Metformin HCl 1000 MG Estradiol 0.1 MG/GM Estradiol 0.1 MG/GM No Estradiol 0.1 MG/GM Lantus 100 UNIT/ML Lantus 100 UNIT/ML No QD Lantus 100 UNIT/ML BD Veo Insulin Syringe U/F 31G X 15/64" 0.3 ML BD Veo Insulin Syringe U/F 31G X 15/64" 0.3 ML No BD Veo Insulin Syringe U/F 31G X 15/64" 0.3 ML Furosemide 20 MG Furosemide 20 MG No 1{table t} QD Furosemide 20 MG Folic Acid 1 MG Folic Acid 1 MG No 1{table t} QD Folic Acid 1 MG Euthyrox 125 MCG Euthyrox 125 MCG No QD Euthyrox 125 MCG Losartan Potassium 100 MG Losartan Potassium 100 MG No 1{table t} QD Losartan Potassium 100 MG Atorvastati n Calcium 20 MG Atorvastati n Calcium 20 MG No 1{table t} QD Atorvastat in Calcium 20 MG OneTouch Ultra - OneTouch Ultra - No OneTouch Ultra - hydroCHLORO thiazide 50 MG hydroCHLORO thiazide 50 MG No hydroCHLOR Othiazide 50 MG Lantus SoloStar 100 UNIT/ML Lantus SoloStar 100 UNIT/ML No QD Lantus SoloStar 100 UNIT/ML Metformin HCl 1000 MG Metformin HCl 1000 MG No 1{table t_with_ meals} BID Metformin HCl 1000 MG Estradiol 0.1 MG/GM Estradiol 0.1 MG/GM No Estradiol 0.1 MG/GM Lantus 100 UNIT/ML Lantus 100 UNIT/ML No QD Lantus 100 UNIT/ML BD Veo Insulin Syringe U/F 31G X 15/64" 0.3 ML BD Veo Insulin Syringe U/F 31G X 15/64" 0.3 ML No BD Veo Insulin Syringe U/F 31G X 15/64" 0.3 ML Furosemide 20 MG Furosemide 20 MG No 1{table t} QD Furosemide 20 MG Folic Acid 1 MG Folic Acid 1 MG No 1{table t} QD Folic Acid 1 MG Euthyrox 125 MCG Euthyrox 125 MCG No QD Euthyrox 125 MCG Losartan Potassium 100 MG Losartan Potassium 100 MG No 1{table t} QD Losartan Potassium 100 MG Atorvastati n Calcium 20 MG Atorvastati n Calcium 20 MG No 1{table t} QD Atorvastat in Calcium 20 MG OneTouch Ultra - OneTouch Ultra - No OneTouch Ultra - hydroCHLORO thiazide 50 MG hydroCHLORO thiazide 50 MG No hydroCHLOR Othiazide 50 MG Lantus SoloStar 100 UNIT/ML Lantus SoloStar 100 UNIT/ML No QD Lantus SoloStar 100 UNIT/ML Metformin HCl 1000 MG Metformin HCl 1000 MG No 1{table t_with_ meals} BID Metformin HCl 1000 MG Estradiol 0.1 MG/GM Estradiol 0.1 MG/GM No Estradiol 0.1 MG/GM Lantus 100 UNIT/ML Lantus 100 UNIT/ML No QD Lantus 100 UNIT/ML BD Veo Insulin Syringe U/F 31G X 15/64" 0.3 ML BD Veo Insulin Syringe U/F 31G X 15/64" 0.3 ML No BD Veo Insulin Syringe U/F 31G X 15/64" 0.3 ML Furosemide 20 MG Furosemide 20 MG No 1{table t} QD Furosemide 20 MG Folic Acid 1 MG Folic Acid 1 MG No 1{table t} QD Folic Acid 1 MG Euthyrox 125 MCG Euthyrox 125 MCG No QD Euthyrox 125 MCG Losartan Potassium 100 MG Losartan Potassium 100 MG No 1{table t} QD Losartan Potassium 100 MG Atorvastati n Calcium 20 MG Atorvastati n Calcium 20 MG No 1{table t} QD Atorvastat in Calcium 20 MG OneTouch Ultra - OneTouch Ultra - No OneTouch Ultra - hydroCHLORO thiazide 50 MG hydroCHLORO thiazide 50 MG No hydroCHLOR Othiazide 50 MG Lantus SoloStar 100 UNIT/ML Lantus SoloStar 100 UNIT/ML No QD Lantus SoloStar 100 UNIT/ML Metformin HCl 1000 MG Metformin HCl 1000 MG No 1{table t_with_ meals} BID Metformin HCl 1000 MG Estradiol 0.1 MG/GM Estradiol 0.1 MG/GM No Estradiol 0.1 MG/GM Lantus 100 UNIT/ML Lantus 100 UNIT/ML No QD Lantus 100 UNIT/ML BD Veo Insulin Syringe U/F 31G X 15/64" 0.3 ML BD Veo Insulin Syringe U/F 31G X 15/64" 0.3 ML No BD Veo Insulin Syringe U/F 31G X 15/64" 0.3 ML Furosemide 20 MG Furosemide 20 MG No 1{table t} QD Furosemide 20 MG Folic Acid 1 MG Folic Acid 1 MG No 1{table t} QD Folic Acid 1 MG Euthyrox 125 MCG Euthyrox 125 MCG No QD Euthyrox 125 MCG Losartan Potassium 100 MG Losartan Potassium 100 MG No 1{table t} QD Losartan Potassium 100 MG Atorvastati n Calcium 20 MG Atorvastati n Calcium 20 MG No 1{table t} QD Atorvastat in Calcium 20 MG OneTouch Ultra - OneTouch Ultra - No OneTouch Ultra - hydroCHLORO thiazide 50 MG hydroCHLORO thiazide 50 MG No hydroCHLOR Othiazide 50 MG Lantus SoloStar 100 UNIT/ML Lantus SoloStar 100 UNIT/ML No QD Lantus SoloStar 100 UNIT/ML Metformin HCl 1000 MG Metformin HCl 1000 MG No 1{table t_with_ meals} BID Metformin HCl 1000 MG Estradiol 0.1 MG/GM Estradiol 0.1 MG/GM No Estradiol 0.1 MG/GM Lantus 100 UNIT/ML Lantus 100 UNIT/ML No QD Lantus 100 UNIT/ML BD Veo Insulin Syringe U/F 31G X 15/64" 0.3 ML BD Veo Insulin Syringe U/F 31G X 15/64" 0.3 ML No BD Veo Insulin Syringe U/F 31G X 15/64" 0.3 ML Furosemide 20 MG Furosemide 20 MG No 1{table t} QD Furosemide 20 MG Folic Acid 1 MG Folic Acid 1 MG No 1{table t} QD Folic Acid 1 MG Metformin HCl 1000 MG Metformin HCl 1000 MG No 1{table t_with_ meals} BID Metformin HCl 1000 MG Levothyroxi ne Sodium 125 MCG Levothyroxi ne Sodium 125 MCG No Levothyrox ine Sodium 125 MCG OneTouch Ultra - OneTouch Ultra - No OneTouch Ultra - Furosemide 20 MG Furosemide 20 MG No 1{table t} QD Furosemide 20 MG BD Veo Insulin Syringe U/F 31G X 15/64" 0.3 ML BD Veo Insulin Syringe U/F 31G X 15/64" 0.3 ML No BD Veo Insulin Syringe U/F 31G X 15/64" 0.3 ML Estradiol 0.1 MG/GM Estradiol 0.1 MG/GM No Estradiol 0.1 MG/GM Euthyrox 125 MCG Euthyrox 125 MCG No QD Euthyrox 125 MCG Losartan Potassium 100 MG Losartan Potassium 100 MG No 1{table t} QD Losartan Potassium 100 MG Atorvastati n Calcium 20 MG Atorvastati n Calcium 20 MG No 1{table t} QD Atorvastat in Calcium 20 MG hydroCHLORO thiazide 50 MG hydroCHLORO thiazide 50 MG No 1{table t_in_ e_morni ng} QD hydroCHLOR Othiazide 50 MG Folic Acid 1 MG Folic Acid 1 MG No 1{table t} QD Folic Acid 1 MG Immunizations Ordered Immunization Name Filled Immunization Name Date Status Comments Source FluAD FluAD 2020-12-14 08:30:00 Completed [facility] FluAD FluAD 2020-12-14 08:30:00 Completed [facility] FluAD FluAD 2020-12-14 08:30:00 Completed [facility] FluAD FluAD 2020-12-14 08:30:00 Completed [facility] FluAD FluAD 2020-12-14 08:30:00 Completed [facility] FluAD FluAD 2020-12-14 08:30:00 Completed [facility] FluAD FluAD 2020-12-14 08:30:00 Completed [facility] FluAD FluAD 2020-12-14 08:30:00 Completed [facility] FluAD FluAD 2020-12-14 08:30:00 Completed [facility] FluAD FluAD 2020-12-14 08:30:00 Completed [facility] FluAD FluAD 2020-12-14 08:30:00 Completed [facility] FluAD FluAD 2020-12-14 08:30:00 Completed [facility] FluAD FluAD 2020-12-14 08:30:00 Completed [facility] FluAD FluAD 2020-12-14 08:30:00 Completed [facility] FluAD FluAD 2020-12-14 08:30:00 Completed [facility] FluAD FluAD 2020-12-14 08:30:00 Completed [facility] FluAD FluAD 2020-12-14 08:30:00 Completed [facility] FluAD FluAD 2020-12-14 08:30:00 Completed [facility] FluAD FluAD 2020-12-14 08:30:00 Completed [facility] FluAD FluAD 2020-12-14 08:30:00 Completed [facility] FluAD FluAD 2020-12-14 08:30:00 Completed [facility] FluAD FluAD 2020-12-14 08:30:00 Completed [facility] FluAD FluAD 2020-12-14 08:30:00 Completed [facility] SARS-COV-2 COVID-19 PFIZER VACCINE 2020-04-12 00:00:00 Completed [facility] SARS-COV-2 COVID-19 PFIZER VACCINE 2020-04-12 00:00:00 Completed [facility] SARS-COV-2 COVID-19 PFIZER VACCINE 2020-04-12 00:00:00 Completed [facility] SARS-COV-2 COVID-19 PFIZER VACCINE 2020-04-12 00:00:00 Completed [facility] SARS-COV-2 COVID-19 PFIZER VACCINE 2020-04-12 00:00:00 Completed [facility] SARS-COV-2 COVID-19 PFIZER VACCINE 2020-04-12 00:00:00 Completed [facility] SARS-COV-2 COVID-19 PFIZER VACCINE 2020-04-12 00:00:00 Completed [facility] SARS-COV-2 COVID-19 PFIZER VACCINE 2020-04-12 00:00:00 Completed [facility] SARS-COV-2 COVID-19 PFIZER VACCINE 2020-04-12 00:00:00 Completed [facility] SARS-COV-2 COVID-19 PFIZER VACCINE 2020-04-12 00:00:00 Completed [facility] SARS-COV-2 COVID-19 PFIZER VACCINE 2020-04-12 00:00:00 Completed [facility] SARS-COV-2 COVID-19 PFIZER VACCINE 2020-04-12 00:00:00 Completed [facility] SARS-COV-2 COVID-19 PFIZER VACCINE 2020-04-12 00:00:00 Completed [facility] SARS-COV-2 COVID-19 PFIZER VACCINE 2020-04-12 00:00:00 Completed [facility] SARS-COV-2 COVID-19 PFIZER VACCINE 2020-04-12 00:00:00 Completed [facility] SARS-COV-2 COVID-19 PFIZER VACCINE 2020-04-12 00:00:00 Completed [facility] SARS-COV-2 COVID-19 PFIZER VACCINE 2020-04-12 00:00:00 Completed [facility] SARS-COV-2 COVID-19 PFIZER VACCINE 2020-04-12 00:00:00 Completed [facility] SARS-COV-2 COVID-19 PFIZER VACCINE 2020-04-12 00:00:00 Completed [facility] SARS-COV-2 COVID-19 PFIZER VACCINE 2020-04-12 00:00:00 Completed [facility] SARS-COV-2 COVID-19 PFIZER VACCINE 2020-04-12 00:00:00 Completed [facility] SARS-COV-2 COVID-19 PFIZER VACCINE 2020-04-12 00:00:00 Completed [facility] SARS-COV-2 COVID-19 PFIZER VACCINE 2020-04-12 00:00:00 Completed [facility] SARS-COV-2 COVID-19 PFIZER VACCINE 2020-04-12 00:00:00 Completed [facility] SARS-COV-2 COVID-19 PFIZER VACCINE 2020-04-12 00:00:00 Completed [facility] SARS-COV-2 COVID-19 PFIZER VACCINE 2020-04-12 00:00:00 Completed [facility] SARS-COV-2 COVID-19 PFIZER VACCINE 2020-04-12 00:00:00 Completed [facility] SARS-COV-2 COVID-19 PFIZER VACCINE 2020-04-12 00:00:00 Completed [facility] SARS-COV-2 COVID-19 PFIZER VACCINE 2020-04-12 00:00:00 Completed [facility] SARS-COV-2 COVID-19 PFIZER VACCINE 2020-04-12 00:00:00 Completed [facility] SARS-COV-2 COVID-19 PFIZER VACCINE 2020-04-12 00:00:00 Completed [facility] SARS-COV-2 COVID-19 PFIZER VACCINE 2020-03-15 00:00:00 Completed [facility] SARS-COV-2 COVID-19 PFIZER VACCINE 2020-03-15 00:00:00 Completed [facility] SARS-COV-2 COVID-19 PFIZER VACCINE 2020-03-15 00:00:00 Completed [facility] SARS-COV-2 COVID-19 PFIZER VACCINE 2020-03-15 00:00:00 Completed [facility] SARS-COV-2 COVID-19 PFIZER VACCINE 2020-03-15 00:00:00 Completed [facility] SARS-COV-2 COVID-19 PFIZER VACCINE 2020-03-15 00:00:00 Completed [facility] SARS-COV-2 COVID-19 PFIZER VACCINE 2020-03-15 00:00:00 Completed [facility] SARS-COV-2 COVID-19 PFIZER VACCINE 2020-03-15 00:00:00 Completed [facility] SARS-COV-2 COVID-19 PFIZER VACCINE 2020-03-15 00:00:00 Completed [facility] SARS-COV-2 COVID-19 PFIZER VACCINE 2020-03-15 00:00:00 Completed [facility] SARS-COV-2 COVID-19 PFIZER VACCINE 2020-03-15 00:00:00 Completed [facility] SARS-COV-2 COVID-19 PFIZER VACCINE 2020-03-15 00:00:00 Completed [facility] SARS-COV-2 COVID-19 PFIZER VACCINE 2020-03-15 00:00:00 Completed [facility] SARS-COV-2 COVID-19 PFIZER VACCINE 2020-03-15 00:00:00 Completed [facility] SARS-COV-2 COVID-19 PFIZER VACCINE 2020-03-15 00:00:00 Completed [facility] SARS-COV-2 COVID-19 PFIZER VACCINE 2020-03-15 00:00:00 Completed [facility] SARS-COV-2 COVID-19 PFIZER VACCINE 2020-03-15 00:00:00 Completed [facility] SARS-COV-2 COVID-19 PFIZER VACCINE 2020-03-15 00:00:00 Completed [facility] SARS-COV-2 COVID-19 PFIZER VACCINE 2020-03-15 00:00:00 Completed [facility] SARS-COV-2 COVID-19 PFIZER VACCINE 2020-03-15 00:00:00 Completed [facility] SARS-COV-2 COVID-19 PFIZER VACCINE 2020-03-15 00:00:00 Completed [facility] SARS-COV-2 COVID-19 PFIZER VACCINE 2020-03-15 00:00:00 Completed [facility] SARS-COV-2 COVID-19 PFIZER VACCINE 2020-03-15 00:00:00 Completed [facility] SARS-COV-2 COVID-19 PFIZER VACCINE 2020-03-15 00:00:00 Completed [facility] SARS-COV-2 COVID-19 PFIZER VACCINE 2020-03-15 00:00:00 Completed [facility] SARS-COV-2 COVID-19 PFIZER VACCINE 2020-03-15 00:00:00 Completed [facility] SARS-COV-2 COVID-19 PFIZER VACCINE 2020-03-15 00:00:00 Completed [facility] SARS-COV-2 COVID-19 PFIZER VACCINE 2020-03-15 00:00:00 Completed [facility] SARS-COV-2 COVID-19 PFIZER VACCINE 2020-03-15 00:00:00 Completed [facility] SARS-COV-2 COVID-19 PFIZER VACCINE 2020-03-15 00:00:00 Completed [facility] SARS-COV-2 COVID-19 PFIZER VACCINE 2020-03-15 00:00:00 Completed [facility] Zoster Vaccine Recombinant 2018-11-13 00:00:00 Completed [facility] Zoster Vaccine Recombinant 2018-11-13 00:00:00 Completed [facility] Zoster Vaccine Recombinant 2018-11-13 00:00:00 Completed [facility] Zoster Vaccine Recombinant 2018-11-13 00:00:00 Completed [facility] Zoster Vaccine Recombinant 2018-11-13 00:00:00 Completed [facility] Zoster Vaccine Recombinant 2018-11-13 00:00:00 Completed [facility] Zoster Vaccine Recombinant 2018-11-13 00:00:00 Completed [facility] Zoster Vaccine Recombinant 2018-11-13 00:00:00 Completed [facility] Zoster Vaccine Recombinant 2018-11-13 00:00:00 Completed [facility] Zoster Vaccine Recombinant 2018-11-13 00:00:00 Completed [facility] Zoster Vaccine Recombinant 2018-11-13 00:00:00 Completed [facility] Zoster Vaccine Recombinant 2018-11-13 00:00:00 Completed [facility] Zoster Vaccine Recombinant 2018-11-13 00:00:00 Completed [facility] Zoster Vaccine Recombinant 2018-11-13 00:00:00 Completed [facility] Zoster Vaccine Recombinant 2018-11-13 00:00:00 Completed [facility] Zoster Vaccine Recombinant 2018-11-13 00:00:00 Completed [facility] Zoster Vaccine Recombinant 2018-11-13 00:00:00 Completed [facility] Zoster Vaccine Recombinant 2018-11-13 00:00:00 Completed [facility] Zoster Vaccine Recombinant 2018-11-13 00:00:00 Completed [facility] Zoster Vaccine Recombinant 2018-11-13 00:00:00 Completed [facility] Zoster Vaccine Recombinant 2018-11-13 00:00:00 Completed [facility] Zoster Vaccine Recombinant 2018-11-13 00:00:00 Completed [facility] Zoster Vaccine Recombinant 2018-11-13 00:00:00 Completed [facility] Zoster Vaccine Recombinant 2018-11-13 00:00:00 Completed [facility] Zoster Vaccine Recombinant 2018-11-13 00:00:00 Completed [facility] Zoster Vaccine Recombinant 2018-11-13 00:00:00 Completed [facility] Zoster Vaccine Recombinant 2018-11-13 00:00:00 Completed [facility] Zoster Vaccine Recombinant 2018-11-13 00:00:00 Completed [facility] Zoster Vaccine Recombinant 2018-11-13 00:00:00 Completed [facility] Zoster Vaccine Recombinant 2018-11-13 00:00:00 Completed [facility] Zoster Vaccine Recombinant 2018-11-13 00:00:00 Completed [facility] Influenza Virus Vaccine 2018-11-10 00:00:00 Completed [facility] Influenza Virus Vaccine 2018-11-10 00:00:00 Completed [facility] Influenza Virus Vaccine 2018-11-10 00:00:00 Completed [facility] Influenza Virus Vaccine 2018-11-10 00:00:00 Completed [facility] Influenza Virus Vaccine 2018-11-10 00:00:00 Completed [facility] Influenza Virus Vaccine 2018-11-10 00:00:00 Completed [facility] Influenza Virus Vaccine 2018-11-10 00:00:00 Completed [facility] Influenza Virus Vaccine 2018-11-10 00:00:00 Completed [facility] Influenza Virus Vaccine 2018-11-10 00:00:00 Completed [facility] Influenza Virus Vaccine 2018-11-10 00:00:00 Completed [facility] Influenza Virus Vaccine 2018-11-10 00:00:00 Completed [facility] Influenza Virus Vaccine 2018-11-10 00:00:00 Completed [facility] Influenza Virus Vaccine 2018-11-10 00:00:00 Completed [facility] Influenza Virus Vaccine 2018-11-10 00:00:00 Completed [facility] Influenza Virus Vaccine 2018-11-10 00:00:00 Completed [facility] Influenza Virus Vaccine 2018-11-10 00:00:00 Completed [facility] Influenza Virus Vaccine 2018-11-10 00:00:00 Completed [facility] Influenza Virus Vaccine 2018-11-10 00:00:00 Completed [facility] Influenza Virus Vaccine 2018-11-10 00:00:00 Completed [facility] Influenza Virus Vaccine 2018-11-10 00:00:00 Completed [facility] Influenza Virus Vaccine 2018-11-10 00:00:00 Completed [facility] Influenza Virus Vaccine 2018-11-10 00:00:00 Completed [facility] Influenza Virus Vaccine 2018-11-10 00:00:00 Completed [facility] Influenza Virus Vaccine 2018-11-10 00:00:00 Completed [facility] Influenza Virus Vaccine 2018-11-10 00:00:00 Completed [facility] Influenza Virus Vaccine 2018-11-10 00:00:00 Completed [facility] Influenza Virus Vaccine 2018-11-10 00:00:00 Completed [facility] Influenza Virus Vaccine 2018-11-10 00:00:00 Completed [facility] Influenza Virus Vaccine 2018-11-10 00:00:00 Completed [facility] Influenza Virus Vaccine 2018-11-10 00:00:00 Completed [facility] Influenza Virus Vaccine 2018-11-10 00:00:00 Completed [facility] Zoster Vaccine Recombinant 2018-09-12 00:00:00 Completed [facility] Zoster Vaccine Recombinant 2018-09-12 00:00:00 Completed [facility] Zoster Vaccine Recombinant 2018-09-12 00:00:00 Completed [facility] Zoster Vaccine Recombinant 2018-09-12 00:00:00 Completed [facility] Zoster Vaccine Recombinant 2018-09-12 00:00:00 Completed [facility] Zoster Vaccine Recombinant 2018-09-12 00:00:00 Completed [facility] Zoster Vaccine Recombinant 2018-09-12 00:00:00 Completed [facility] Zoster Vaccine Recombinant 2018-09-12 00:00:00 Completed [facility] Zoster Vaccine Recombinant 2018-09-12 00:00:00 Completed [facility] Zoster Vaccine Recombinant 2018-09-12 00:00:00 Completed [facility] Zoster Vaccine Recombinant 2018-09-12 00:00:00 Completed [facility] Zoster Vaccine Recombinant 2018-09-12 00:00:00 Completed [facility] Zoster Vaccine Recombinant 2018-09-12 00:00:00 Completed [facility] Zoster Vaccine Recombinant 2018-09-12 00:00:00 Completed [facility] Zoster Vaccine Recombinant 2018-09-12 00:00:00 Completed [facility] Zoster Vaccine Recombinant 2018-09-12 00:00:00 Completed [facility] Zoster Vaccine Recombinant 2018-09-12 00:00:00 Completed [facility] Zoster Vaccine Recombinant 2018-09-12 00:00:00 Completed [facility] Zoster Vaccine Recombinant 2018-09-12 00:00:00 Completed [facility] Zoster Vaccine Recombinant 2018-09-12 00:00:00 Completed [facility] Zoster Vaccine Recombinant 2018-09-12 00:00:00 Completed [facility] Zoster Vaccine Recombinant 2018-09-12 00:00:00 Completed [facility] Zoster Vaccine Recombinant 2018-09-12 00:00:00 Completed [facility] Zoster Vaccine Recombinant 2018-09-12 00:00:00 Completed [facility] Zoster Vaccine Recombinant 2018-09-12 00:00:00 Completed [facility] Zoster Vaccine Recombinant 2018-09-12 00:00:00 Completed [facility] Zoster Vaccine Recombinant 2018-09-12 00:00:00 Completed [facility] Zoster Vaccine Recombinant 2018-09-12 00:00:00 Completed [facility] Zoster Vaccine Recombinant 2018-09-12 00:00:00 Completed [facility] Zoster Vaccine Recombinant 2018-09-12 00:00:00 Completed [facility] Zoster Vaccine Recombinant 2018-09-12 00:00:00 Completed [facility] Influenza Virus Vaccine - Whole 2017-10-28 00:00:00 Completed [facility] Influenza Virus Vaccine - Whole 2017-10-28 00:00:00 Completed [facility] Influenza Virus Vaccine - Whole 2017-10-28 00:00:00 Completed [facility] Influenza Virus Vaccine - Whole 2017-10-28 00:00:00 Completed [facility] Influenza Virus Vaccine - Whole 2017-10-28 00:00:00 Completed [facility] Influenza Virus Vaccine - Whole 2017-10-28 00:00:00 Completed [facility] Influenza Virus Vaccine - Whole 2017-10-28 00:00:00 Completed [facility] Influenza Virus Vaccine - Whole 2017-10-28 00:00:00 Completed [facility] Influenza Virus Vaccine - Whole 2017-10-28 00:00:00 Completed [facility] Influenza Virus Vaccine - Whole 2017-10-28 00:00:00 Completed [facility] Influenza Virus Vaccine - Whole 2017-10-28 00:00:00 Completed [facility] Influenza Virus Vaccine - Whole 2017-10-28 00:00:00 Completed [facility] Influenza Virus Vaccine - Whole 2017-10-28 00:00:00 Completed [facility] Influenza Virus Vaccine - Whole 2017-10-28 00:00:00 Completed [facility] Influenza Virus Vaccine - Whole 2017-10-28 00:00:00 Completed [facility] Influenza Virus Vaccine - Whole 2017-10-28 00:00:00 Completed [facility] Influenza Virus Vaccine - Whole 2017-10-28 00:00:00 Completed [facility] Influenza Virus Vaccine - Whole 2017-10-28 00:00:00 Completed [facility] Influenza Virus Vaccine - Whole 2017-10-28 00:00:00 Completed [facility] Influenza Virus Vaccine - Whole 2017-10-28 00:00:00 Completed [facility] Influenza Virus Vaccine - Whole 2017-10-28 00:00:00 Completed [facility] Influenza Virus Vaccine - Whole 2017-10-28 00:00:00 Completed [facility] Influenza Virus Vaccine - Whole 2017-10-28 00:00:00 Completed [facility] Influenza Virus Vaccine - Whole 2017-10-28 00:00:00 Completed [facility] Influenza Virus Vaccine - Whole 2017-10-28 00:00:00 Completed [facility] Influenza Virus Vaccine - Whole 2017-10-28 00:00:00 Completed [facility] Influenza Virus Vaccine - Whole 2017-10-28 00:00:00 Completed [facility] Influenza Virus Vaccine - Whole 2017-10-28 00:00:00 Completed [facility] Influenza Virus Vaccine - Whole 2017-10-28 00:00:00 Completed [facility] Influenza Virus Vaccine - Whole 2017-10-28 00:00:00 Completed [facility] Influenza Virus Vaccine - Whole 2017-10-28 00:00:00 Completed [facility] Influenza High Dose 2015-11-21 00:00:00 Completed [facility] Influenza High Dose 2015-11-21 00:00:00 Completed [facility] Influenza High Dose 2015-11-21 00:00:00 Completed [facility] Influenza High Dose 2015-11-21 00:00:00 Completed [facility] Influenza High Dose 2015-11-21 00:00:00 Completed [facility] Influenza High Dose 2015-11-21 00:00:00 Completed [facility] Influenza High Dose 2015-11-21 00:00:00 Completed [facility] Influenza High Dose 2015-11-21 00:00:00 Completed [facility] Influenza High Dose 2015-11-21 00:00:00 Completed [facility] Influenza High Dose 2015-11-21 00:00:00 Completed [facility] Influenza High Dose 2015-11-21 00:00:00 Completed [facility] Influenza High Dose 2015-11-21 00:00:00 Completed [facility] Influenza High Dose 2015-11-21 00:00:00 Completed [facility] Influenza High Dose 2015-11-21 00:00:00 Completed [facility] Influenza High Dose 2015-11-21 00:00:00 Completed [facility] Influenza High Dose 2015-11-21 00:00:00 Completed [facility] Influenza High Dose 2015-11-21 00:00:00 Completed [facility] Influenza High Dose 2015-11-21 00:00:00 Completed [facility] Influenza High Dose 2015-11-21 00:00:00 Completed [facility] Influenza High Dose 2015-11-21 00:00:00 Completed [facility] Influenza High Dose 2015-11-21 00:00:00 Completed [facility] Influenza High Dose 2015-11-21 00:00:00 Completed [facility] Influenza High Dose 2015-11-21 00:00:00 Completed [facility] Influenza High Dose 2015-11-21 00:00:00 Completed [facility] Influenza High Dose 2015-11-21 00:00:00 Completed [facility] Influenza High Dose 2015-11-21 00:00:00 Completed [facility] Influenza High Dose 2015-11-21 00:00:00 Completed [facility] Influenza High Dose 2015-11-21 00:00:00 Completed [facility] Influenza High Dose 2015-11-21 00:00:00 Completed [facility] Influenza High Dose 2015-11-21 00:00:00 Completed [facility] Influenza High Dose 2015-11-21 00:00:00 Completed [facility] Pneumococcal Polysaccharide, PPSV23 (PNEUMOVAX) 2014-05-31 00:00:00 Completed [facility] Pneumococcal Polysaccharide, PPSV23 (PNEUMOVAX) 2014-05-31 00:00:00 Completed [facility] Pneumococcal Polysaccharide, PPSV23 (PNEUMOVAX) 2014-05-31 00:00:00 Completed [facility] Pneumococcal Polysaccharide, PPSV23 (PNEUMOVAX) 2014-05-31 00:00:00 Completed [facility] Pneumococcal Polysaccharide, PPSV23 (PNEUMOVAX) 2014-05-31 00:00:00 Completed [facility] Pneumococcal Polysaccharide, PPSV23 (PNEUMOVAX) 2014-05-31 00:00:00 Completed [facility] Pneumococcal Polysaccharide, PPSV23 (PNEUMOVAX) 2014-05-31 00:00:00 Completed [facility] Pneumococcal Polysaccharide, PPSV23 (PNEUMOVAX) 2014-05-31 00:00:00 Completed [facility] Pneumococcal Polysaccharide, PPSV23 (PNEUMOVAX) 2014-05-31 00:00:00 Completed [facility] Pneumococcal Polysaccharide, PPSV23 (PNEUMOVAX) 2014-05-31 00:00:00 Completed [facility] Pneumococcal Polysaccharide, PPSV23 (PNEUMOVAX) 2014-05-31 00:00:00 Completed [facility] Pneumococcal Polysaccharide, PPSV23 (PNEUMOVAX) 2014-05-31 00:00:00 Completed [facility] Pneumococcal Polysaccharide, PPSV23 (PNEUMOVAX) 2014-05-31 00:00:00 Completed [facility] Pneumococcal Polysaccharide, PPSV23 (PNEUMOVAX) 2014-05-31 00:00:00 Completed [facility] Pneumococcal Polysaccharide, PPSV23 (PNEUMOVAX) 2014-05-31 00:00:00 Completed [facility] Pneumococcal Polysaccharide, PPSV23 (PNEUMOVAX) 2014-05-31 00:00:00 Completed [facility] Pneumococcal Polysaccharide, PPSV23 (PNEUMOVAX) 2014-05-31 00:00:00 Completed [facility] Pneumococcal Polysaccharide, PPSV23 (PNEUMOVAX) 2014-05-31 00:00:00 Completed [facility] Pneumococcal Polysaccharide, PPSV23 (PNEUMOVAX) 2014-05-31 00:00:00 Completed [facility] Pneumococcal Polysaccharide, PPSV23 (PNEUMOVAX) 2014-05-31 00:00:00 Completed [facility] Pneumococcal Polysaccharide, PPSV23 (PNEUMOVAX) 2014-05-31 00:00:00 Completed [facility] Pneumococcal Polysaccharide, PPSV23 (PNEUMOVAX) 2014-05-31 00:00:00 Completed [facility] Pneumococcal Polysaccharide, PPSV23 (PNEUMOVAX) 2014-05-31 00:00:00 Completed [facility] Pneumococcal Polysaccharide, PPSV23 (PNEUMOVAX) 2014-05-31 00:00:00 Completed [facility] Pneumococcal Polysaccharide, PPSV23 (PNEUMOVAX) 2014-05-31 00:00:00 Completed [facility] Pneumococcal Polysaccharide, PPSV23 (PNEUMOVAX) 2014-05-31 00:00:00 Completed [facility] Pneumococcal Polysaccharide, PPSV23 (PNEUMOVAX) 2014-05-31 00:00:00 Completed [facility] Pneumococcal Polysaccharide, PPSV23 (PNEUMOVAX) 2014-05-31 00:00:00 Completed [facility] Pneumococcal Polysaccharide, PPSV23 (PNEUMOVAX) 2014-05-31 00:00:00 Completed [facility] Pneumococcal Polysaccharide, PPSV23 (PNEUMOVAX) 2014-05-31 00:00:00 Completed [facility] Pneumococcal Polysaccharide, PPSV23 (PNEUMOVAX) 2014-05-31 00:00:00 Completed [facility] Influenza High Dose 2013-11-09 00:00:00 Completed [facility] Influenza High Dose 2013-11-09 00:00:00 Completed [facility] Influenza High Dose 2013-11-09 00:00:00 Completed [facility] Influenza High Dose 2013-11-09 00:00:00 Completed [facility] Influenza High Dose 2013-11-09 00:00:00 Completed [facility] Influenza High Dose 2013-11-09 00:00:00 Completed [facility] Influenza High Dose 2013-11-09 00:00:00 Completed [facility] Influenza High Dose 2013-11-09 00:00:00 Completed [facility] Influenza High Dose 2013-11-09 00:00:00 Completed [facility] Influenza High Dose 2013-11-09 00:00:00 Completed [facility] Influenza High Dose 2013-11-09 00:00:00 Completed [facility] Influenza High Dose 2013-11-09 00:00:00 Completed [facility] Influenza High Dose 2013-11-09 00:00:00 Completed [facility] Influenza High Dose 2013-11-09 00:00:00 Completed [facility] Influenza High Dose 2013-11-09 00:00:00 Completed [facility] Influenza High Dose 2013-11-09 00:00:00 Completed [facility] Influenza High Dose 2013-11-09 00:00:00 Completed [facility] Influenza High Dose 2013-11-09 00:00:00 Completed [facility] Influenza High Dose 2013-11-09 00:00:00 Completed [facility] Influenza High Dose 2013-11-09 00:00:00 Completed [facility] Influenza High Dose 2013-11-09 00:00:00 Completed [facility] Influenza High Dose 2013-11-09 00:00:00 Completed [facility] Influenza High Dose 2013-11-09 00:00:00 Completed [facility] Influenza High Dose 2013-11-09 00:00:00 Completed [facility] Influenza High Dose 2013-11-09 00:00:00 Completed [facility] Influenza High Dose 2013-11-09 00:00:00 Completed [facility] Influenza High Dose 2013-11-09 00:00:00 Completed [facility] Influenza High Dose 2013-11-09 00:00:00 Completed [facility] Influenza High Dose 2013-11-09 00:00:00 Completed [facility] Influenza High Dose 2013-11-09 00:00:00 Completed [facility] Influenza High Dose 2013-11-09 00:00:00 Completed [facility] Pneumococcal 7 Conjugate, PCV7 (Prevnar7) 2012-11-29 00:00:00 Completed [facility] Pneumococcal 7 Conjugate, PCV7 (Prevnar7) 2012-11-29 00:00:00 Completed [facility] Pneumococcal 7 Conjugate, PCV7 (Prevnar7) 2012-11-29 00:00:00 Completed [facility] Pneumococcal 7 Conjugate, PCV7 (Prevnar7) 2012-11-29 00:00:00 Completed [facility] Pneumococcal 7 Conjugate, PCV7 (Prevnar7) 2012-11-29 00:00:00 Completed [facility] Pneumococcal 7 Conjugate, PCV7 (Prevnar7) 2012-11-29 00:00:00 Completed [facility] Pneumococcal 7 Conjugate, PCV7 (Prevnar7) 2012-11-29 00:00:00 Completed [facility] Pneumococcal 7 Conjugate, PCV7 (Prevnar7) 2012-11-29 00:00:00 Completed [facility] Pneumococcal 7 Conjugate, PCV7 (Prevnar7) 2012-11-29 00:00:00 Completed [facility] Pneumococcal 7 Conjugate, PCV7 (Prevnar7) 2012-11-29 00:00:00 Completed [facility] Pneumococcal 7 Conjugate, PCV7 (Prevnar7) 2012-11-29 00:00:00 Completed [facility] Pneumococcal 7 Conjugate, PCV7 (Prevnar7) 2012-11-29 00:00:00 Completed [facility] Pneumococcal 7 Conjugate, PCV7 (Prevnar7) 2012-11-29 00:00:00 Completed [facility] Pneumococcal 7 Conjugate, PCV7 (Prevnar7) 2012-11-29 00:00:00 Completed [facility] Pneumococcal 7 Conjugate, PCV7 (Prevnar7) 2012-11-29 00:00:00 Completed [facility] Pneumococcal 7 Conjugate, PCV7 (Prevnar7) 2012-11-29 00:00:00 Completed [facility] Pneumococcal 7 Conjugate, PCV7 (Prevnar7) 2012-11-29 00:00:00 Completed [facility] Pneumococcal 7 Conjugate, PCV7 (Prevnar7) 2012-11-29 00:00:00 Completed [facility] Pneumococcal 7 Conjugate, PCV7 (Prevnar7) 2012-11-29 00:00:00 Completed [facility] Pneumococcal 7 Conjugate, PCV7 (Prevnar7) 2012-11-29 00:00:00 Completed [facility] Pneumococcal 7 Conjugate, PCV7 (Prevnar7) 2012-11-29 00:00:00 Completed [facility] Pneumococcal 7 Conjugate, PCV7 (Prevnar7) 2012-11-29 00:00:00 Completed [facility] Pneumococcal 7 Conjugate, PCV7 (Prevnar7) 2012-11-29 00:00:00 Completed [facility] Pneumococcal 7 Conjugate, PCV7 (Prevnar7) 2012-11-29 00:00:00 Completed [facility] Pneumococcal 7 Conjugate, PCV7 (Prevnar7) 2012-11-29 00:00:00 Completed [facility] Pneumococcal 7 Conjugate, PCV7 (Prevnar7) 2012-11-29 00:00:00 Completed [facility] Pneumococcal 7 Conjugate, PCV7 (Prevnar7) 2012-11-29 00:00:00 Completed [facility] Pneumococcal 7 Conjugate, PCV7 (Prevnar7) 2012-11-29 00:00:00 Completed [facility] Pneumococcal 7 Conjugate, PCV7 (Prevnar7) 2012-11-29 00:00:00 Completed [facility] Pneumococcal 7 Conjugate, PCV7 (Prevnar7) 2012-11-29 00:00:00 Completed [facility] Pneumococcal 7 Conjugate, PCV7 (Prevnar7) 2012-11-29 00:00:00 Completed [facility] TDAP 2012-01-10 00:00:00 Completed [facility] Zoster(Zostavax)([facility]) 2012-01-10 00:00:00 Completed [facility] TDAP 2012-01-10 00:00:00 Completed [facility] Zoster(Zostavax)([facility]) 2012-01-10 00:00:00 Completed [facility] TDAP 2012-01-10 00:00:00 Completed [facility] Zoster(Zostavax)([facility]) 2012-01-10 00:00:00 Completed [facility] TDAP 2012-01-10 00:00:00 Completed [facility] Zoster(Zostavax)([facility]) 2012[facility]01-10 [facility] Zoster(Zostavax[facility] 2012-01-10 [facility] Com[facility] Zoster(Zostavax)([facility]) 2012-01-10 00:00:00 Completed [facility] 2012-01-10 00:00:00 Completed [facility] Zoster(Zostavax)([facility]) 2012-01-10 [facility] Zoster[facility]ax[facility] [place] 2012-01-10 00:00:00 Completed [facility] TDAP 2012-01-10 00:00:00 Completed [facility] Zoster(Zostavax)([facility] 2012-01-10 00:00:00 Completed [facility] TDAP 2012-01-10 00:00:00 Completed [facility] Zoster(Zostavax)([facility] 2012-01-10 00:00:00 Completed [facility] TDAP 2012-01-10 00:00:00 Completed [facility] Zoster(Zostavax)([facility]) 2012-01-10 00:00:00 Completed [facility] TDAP 2012-01-10 00:00:00 Completed [facility] Zoster(Zostavax)([facility]) 2012-01-10 00:00:00 Completed [facility] TDAP 2012-01-10 00:00:00 Completed [facility] Zoster(Zostavax[facility]) 2012-01-10 00:00:00 Completed [facility] TDAP 2012-01-10 00:00:00 Completed [facility] Zoster(Zostavax)([facility]) 2012-01-10 00:00:00 Completed [facility] TDAP 2012-01-10 00:00:00 Completed [facility] Zoster(Zostavax[facility] 2012[facility]01-10 [facility] Zoster[facility]Zostavax[facility] 2012-01-10 00:00:00 Completed [facility] TDAP 2012-01-10 00:00:00 Completed [facility] Zoster(Zostavax)([facility]) 2012-01-10 00:00:00 Completed [facility] TDAP 2012-01-10 00:00:00 Completed [facility] Zoster(Zostavax)([facility]) 2012-01-10 00:00:00 Completed [facility] TDAP 2012-01-10 00:00:00 Completed [facility] Zoster(Zostavax)([facility]) 2012-01-10 00:00:00 Completed [facility] TDAP 2012-01-10 00:00:00 Completed [facility] Zoster(Zostavax)([facility]) 2012-01-10 00:00:00 Completed [facility] TDAP 2012-01-10 00:00:00 Completed [facility] Zoster(Zostavax[facility]) 2012-01-10 00:00:00 Completed [facility] TDAP 2012-01-10 00:00:00 Completed [facility] Zoster(Zostavax)([facility]) 2012-01-10 00:00:00 Completed [facility] TDAP 2012-01-10 00:00:00 Completed [facility] 2012-01-10 00:00:00 Completed [facility] TDAP 2012-01-10 00:00:00 Completed [facility]oster[facility] 2012-01-10 00:00:00 Completed [facility] TDAP 2012-01-10 00:00:00 Completed [facility] Zoster(Zostavax[facility]) 2012-01-10 00:00:00 Completed [facility] TDAP 2012-01-10 00:00:00 Completed [facility] 2012-01-10 00:00:00 Completed [facility] TDAP 2012-01-10 00:00:00 Completed [facility]oster[facility]Zost[facility] 2012-01-10 00:00:00 Completed [facility] TDAP 2012-01-10 00:00:00 Completed [facility] Zoster(Zostavax[facility]) 2012-01-10 00:00:00 Completed [facility] TDAP 2012-01-10 00:00:00 Completed [facility] Zoster(Zostavax)([facility]) 2012-01-10 00:00:00 Completed [facility] TDAP 2012-01-10 00:00:00 Completed [facility] Zoster(Zostavax)([facility]) 2012-01-10 00:00:00 Completed [facility] TDAP 2012-01-10 00:00:00 Completed [facility] Zoster(Zostavax)([facility]) 2012-01-10 00:00:00 Completed [facility] Influenza Virus Vaccine 2011-12-16 00:00:00 Completed [facility] Influenza Virus Vaccine 2011-12-16 00:00:00 Completed [facility] Influenza Virus Vaccine 2011-12-16 00:00:00 Completed [facility] Influenza Virus Vaccine 2011-12-16 00:00:00 Completed [facility] Influenza Virus Vaccine 2011-12-16 00:00:00 Completed [facility] Influenza Virus Vaccine 2011-12-16 00:00:00 Completed [facility] Influenza Virus Vaccine 2011-12-16 00:00:00 Completed [facility] Influenza Virus Vaccine 2011-12-16 00:00:00 Completed [facility] Influenza Virus Vaccine 2011-12-16 00:00:00 Completed [facility] Influenza Virus Vaccine 2011-12-16 00:00:00 Completed [facility] Influenza Virus Vaccine 2011-12-16 00:00:00 Completed [facility] Influenza Virus Vaccine 2011-12-16 00:00:00 Completed [facility] Influenza Virus Vaccine 2011-12-16 00:00:00 Completed [facility] Influenza Virus Vaccine 2011-12-16 00:00:00 Completed [facility] Influenza Virus Vaccine 2011-12-16 00:00:00 Completed [facility] Influenza Virus Vaccine 2011-12-16 00:00:00 Completed [facility] Influenza Virus Vaccine 2011-12-16 00:00:00 Completed [facility] Influenza Virus Vaccine 2011-12-16 00:00:00 Completed [facility] Influenza Virus Vaccine 2011-12-16 00:00:00 Completed [facility] Influenza Virus Vaccine 2011-12-16 00:00:00 Completed [facility] Influenza Virus Vaccine 2011-12-16 00:00:00 Completed [facility] Influenza Virus Vaccine 2011-12-16 00:00:00 Completed [facility] Influenza Virus Vaccine 2011-12-16 00:00:00 Completed [facility] Influenza Virus Vaccine 2011-12-16 00:00:00 Completed [facility] Influenza Virus Vaccine 2011-12-16 00:00:00 Completed [facility] Influenza Virus Vaccine 2011-12-16 00:00:00 Completed [facility] Influenza Virus Vaccine 2011-12-16 00:00:00 Completed [facility] Influenza Virus Vaccine 2011-12-16 00:00:00 Completed [facility] Influenza Virus Vaccine 2011-12-16 00:00:00 Completed [facility] Influenza Virus Vaccine 2011-12-16 00:00:00 Completed [facility] Influenza Virus Vaccine 2011-12-16 00:00:00 Completed [facility] Influenza Virus Vaccine 2008-11-18 00:00:00 Completed [facility] Influenza Virus Vaccine 2008-11-18 00:00:00 Completed [facility] Influenza Virus Vaccine 2008-11-18 00:00:00 Completed [facility] Influenza Virus Vaccine 2008-11-18 00:00:00 Completed [facility] Influenza Virus Vaccine 2008-11-18 00:00:00 Completed [facility] Influenza Virus Vaccine 2008-11-18 00:00:00 Completed [facility] Influenza Virus Vaccine 2008-11-18 00:00:00 Completed [facility] Influenza Virus Vaccine 2008-11-18 00:00:00 Completed [facility] Influenza Virus Vaccine 2008-11-18 00:00:00 Completed [facility] Influenza Virus Vaccine 2008-11-18 00:00:00 Completed [facility] Influenza Virus Vaccine 2008-11-18 00:00:00 Completed [facility] Influenza Virus Vaccine 2008-11-18 00:00:00 Completed [facility] Influenza Virus Vaccine 2008-11-18 00:00:00 Completed [facility] Influenza Virus Vaccine 2008-11-18 00:00:00 Completed [facility] Influenza Virus Vaccine 2008-11-18 00:00:00 Completed [facility] Influenza Virus Vaccine 2008-11-18 00:00:00 Completed [facility] Influenza Virus Vaccine 2008-11-18 00:00:00 Completed [facility] Influenza Virus Vaccine 2008-11-18 00:00:00 Completed [facility] Influenza Virus Vaccine 2008-11-18 00:00:00 Completed [facility] Influenza Virus Vaccine 2008-11-18 00:00:00 Completed [facility] Influenza Virus Vaccine 2008-11-18 00:00:00 Completed [facility] Influenza Virus Vaccine 2008-11-18 00:00:00 Completed [facility] Influenza Virus Vaccine 2008-11-18 00:00:00 Completed [facility] Influenza Virus Vaccine 2008-11-18 00:00:00 Completed [facility] Influenza Virus Vaccine 2008-11-18 00:00:00 Completed [facility] Influenza Virus Vaccine 2008-11-18 00:00:00 Completed [facility] Influenza Virus Vaccine 2008-11-18 00:00:00 Completed [facility] Influenza Virus Vaccine 2008-11-18 00:00:00 Completed [facility] Influenza Virus Vaccine 2008-11-18 00:00:00 Completed [facility] Influenza Virus Vaccine 2008-11-18 00:00:00 Completed [facility] Influenza Virus Vaccine 2008-11-18 00:00:00 Completed [facility] Pneumococcal 7 Conjugate, PCV7 (Prevnar7) 2007-03-13 00:00:00 Completed [facility] Pneumococcal 7 Conjugate, PCV7 (Prevnar7) 2007-03-13 00:00:00 Completed [facility] Pneumococcal 7 Conjugate, PCV7 (Prevnar7) 2007-03-13 00:00:00 Completed [facility] Pneumococcal 7 Conjugate, PCV7 (Prevnar7) 2007-03-13 00:00:00 Completed [facility] Pneumococcal 7 Conjugate, PCV7 (Prevnar7) 2007-03-13 00:00:00 Completed [facility] Pneumococcal 7 Conjugate, PCV7 (Prevnar7) 2007-03-13 00:00:00 Completed [facility] Pneumococcal 7 Conjugate, PCV7 (Prevnar7) 2007-03-13 00:00:00 Completed [facility] Pneumococcal 7 Conjugate, PCV7 (Prevnar7) 2007-03-13 00:00:00 Completed [facility] Pneumococcal 7 Conjugate, PCV7 (Prevnar7) 2007-03-13 00:00:00 Completed [facility] Pneumococcal 7 Conjugate, PCV7 (Prevnar7) 2007-03-13 00:00:00 Completed [facility] Pneumococcal 7 Conjugate, PCV7 (Prevnar7) 2007-03-13 00:00:00 Completed [facility] Pneumococcal 7 Conjugate, PCV7 (Prevnar7) 2007-03-13 00:00:00 Completed [facility] Pneumococcal 7 Conjugate, PCV7 (Prevnar7) 2007-03-13 00:00:00 Completed [facility] Pneumococcal 7 Conjugate, PCV7 (Prevnar7) 2007-03-13 00:00:00 Completed [facility] Pneumococcal 7 Conjugate, PCV7 (Prevnar7) 2007-03-13 00:00:00 Completed [facility] Pneumococcal 7 Conjugate, PCV7 (Prevnar7) 2007-03-13 00:00:00 Completed [facility] Pneumococcal 7 Conjugate, PCV7 (Prevnar7) 2007-03-13 00:00:00 Completed [facility] Pneumococcal 7 Conjugate, PCV7 (Prevnar7) 2007-03-13 00:00:00 Completed [facility] Pneumococcal 7 Conjugate, PCV7 (Prevnar7) 2007-03-13 00:00:00 Completed [facility] Pneumococcal 7 Conjugate, PCV7 (Prevnar7) 2007-03-13 00:00:00 Completed [facility] Pneumococcal 7 Conjugate, PCV7 (Prevnar7) 2007-03-13 00:00:00 Completed [facility] Pneumococcal 7 Conjugate, PCV7 (Prevnar7) 2007-03-13 00:00:00 Completed [facility] Pneumococcal 7 Conjugate, PCV7 (Prevnar7) 2007-03-13 00:00:00 Completed [facility] Pneumococcal 7 Conjugate, PCV7 (Prevnar7) 2007-03-13 00:00:00 Completed [facility] Pneumococcal 7 Conjugate, PCV7 (Prevnar7) 2007-03-13 00:00:00 Completed [facility] Pneumococcal 7 Conjugate, PCV7 (Prevnar7) 2007-03-13 00:00:00 Completed [facility] Pneumococcal 7 Conjugate, PCV7 (Prevnar7) 2007-03-13 00:00:00 Completed [facility] Pneumococcal 7 Conjugate, PCV7 (Prevnar7) 2007-03-13 00:00:00 Completed [facility] Pneumococcal 7 Conjugate, PCV7 (Prevnar7) 2007-03-13 00:00:00 Completed [facility] Pneumococcal 7 Conjugate, PCV7 (Prevnar7) 2007-03-13 00:00:00 Completed [facility] Pneumococcal 7 Conjugate, PCV7 (Prevnar7) 2007-03-13 00:00:00 Completed [facility] Pneumococcal 7 Conjugate, PCV7 (Prevnar7) Unknown Completed [facility] Influenza Virus Vaccine Unknown Completed [facility] TDAP Unknown Completed [facility] Influenza Virus Vaccine Unknown Completed [facility] Pneumococcal 7 Conjugate, PCV7 (Prevnar7) Unknown Completed [facility] Influenza High Dose Unknown Completed [facility] Pneumococcal Polysaccharide, PPSV23 (PNEUMOVAX) Unknown Completed [facility] Influenza High Dose Unknown Completed [facility] Zoster(Zostavax)([facility]) Unknown Completed [facility] Influenza Virus Vaccine - Whole Unknown Completed [facility] Influenza Virus Vaccine Unknown Completed [facility] Zoster Vaccine Recombinant Unknown Completed [facility] Zoster Vaccine Recombinant Unknown Completed [facility] SARS-COV-2 COVID-19 PFIZER VACCINE Unknown Completed [facility] SARS-COV-2 COVID-19 PFIZER VACCINE Unknown Completed [facility] Pneumococcal 7 Conjugate, PCV7 (Prevnar7) Unknown Completed [facility] Influenza Virus Vaccine Unknown Completed [facility] TDAP Unknown Completed [facility] Influenza Virus Vaccine Unknown Completed [facility] Pneumococcal 7 Conjugate, PCV7 (Prevnar7) Unknown Completed [facility] Influenza High Dose Unknown Completed [facility] Pneumococcal Polysaccharide, PPSV23 (PNEUMOVAX) Unknown Completed [facility] Influenza High Dose Unknown Completed [facility] Zoster(Zostavax)([facility]) Unknown Completed [facility] Influenza Virus Vaccine - Whole Unknown Completed [facility] Influenza Virus Vaccine Unknown Completed [facility] Zoster Vaccine Recombinant Unknown Completed [facility] Zoster Vaccine Recombinant Unknown Completed [facility] SARS-COV-2 COVID-19 PFIZER VACCINE Unknown Completed [facility] SARS-COV-2 COVID-19 PFIZER VACCINE Unknown Completed [facility] Pneumococcal 7 Conjugate, PCV7 (Prevnar7) Unknown Completed [facility] Influenza Virus Vaccine Unknown Completed [facility] TDAP Unknown Completed [facility] Influenza Virus Vaccine Unknown Completed [facility] Pneumococcal 7 Conjugate, PCV7 (Prevnar7) Unknown Completed [facility] Influenza High Dose Unknown Completed [facility] Pneumococcal Polysaccharide, PPSV23 (PNEUMOVAX) Unknown Completed [facility] Influenza High Dose Unknown Completed [facility] Zoster(Zostavax)([facility] ing[facility]) Unknown Completed [facility] Influenza Virus Vaccine - Whole Unknown Completed [facility] Influenza Virus Vaccine Unknown Completed [facility] Zoster Vaccine Recombinant Unknown Completed [facility] Zoster Vaccine Recombinant Unknown Completed [facility] SARS-COV-2 COVID-19 PFIZER VACCINE Unknown Completed [facility] SARS-COV-2 COVID-19 PFIZER VACCINE Unknown Completed [facility] Pneumococcal 7 Conjugate, PCV7 (Prevnar7) Unknown Completed [facility] Influenza Virus Vaccine Unknown Completed [facility] TDAP Unknown Completed [facility] Influenza Virus Vaccine Unknown Completed [facility] Pneumococcal 7 Conjugate, PCV7 (Prevnar7) Unknown Completed [facility] Influenza High Dose Unknown Completed [facility] Pneumococcal Polysaccharide, PPSV23 (PNEUMOVAX) Unknown Completed [facility] Influenza High Dose Unknown Completed [facility] Zoster(Zostavax)([facility]) Unknown Completed [facility] Influenza Virus Vaccine - Whole Unknown Completed [facility] Influenza Virus Vaccine Unknown Completed [facility] Zoster Vaccine Recombinant Unknown Completed [facility] Zoster Vaccine Recombinant Unknown Completed [facility] SARS-COV-2 COVID-19 PFIZER VACCINE Unknown Completed [facility] SARS-COV-2 COVID-19 PFIZER VACCINE Unknown Completed [facility] Pneumococcal 7 Conjugate, PCV7 (Prevnar7) Unknown Completed [facility] Influenza Virus Vaccine Unknown Completed [facility] TDAP Unknown Completed [facility] Influenza Virus Vaccine Unknown Completed [facility] Pneumococcal 7 Conjugate, PCV7 (Prevnar7) Unknown Completed [facility] Influenza High Dose Unknown Completed [facility] Pneumococcal Polysaccharide, PPSV23 (PNEUMOVAX) Unknown Completed [facility] Influenza High Dose Unknown Completed [facility] Zoster(Zostavax)([facility] ingles) Unknown Completed [facility] Influenza Virus Vaccine - Whole Unknown Completed [place] [facility] Influenza Virus Vaccine Unknown Completed [facility] Zoster Vaccine Recombinant Unknown Completed [facility] Zoster Vaccine Recombinant Unknown Completed [facility] SARS-COV-2 COVID-19 PFIZER VACCINE Unknown Completed [facility] SARS-COV-2 COVID-19 PFIZER VACCINE Unknown Completed [facility] Pneumococcal 7 Conjugate, PCV7 (Prevnar7) Unknown Completed [facility] Influenza Virus Vaccine Unknown Completed [facility] TDAP Unknown Completed [facility] Influenza Virus Vaccine Unknown Completed [facility] Pneumococcal 7 Conjugate, PCV7 (Prevnar7) Unknown Completed [facility] Influenza High Dose Unknown Completed [facility] Pneumococcal Polysaccharide, PPSV23 (PNEUMOVAX) Unknown Completed [facility] Influenza High Dose Unknown Completed [facility] Zoster(Zostavax)(Sh ingles) Unknown Completed [facility] Influenza Virus Vaccine - Whole Unknown Completed [facility] Influenza Virus Vaccine Unknown Completed [facility] Zoster Vaccine Recombinant Unknown Completed [facility] Zoster Vaccine Recombinant Unknown Completed [facility] SARS-COV-2 COVID-19 PFIZER VACCINE Unknown Completed [facility] SARS-COV-2 COVID-19 PFIZER VACCINE Unknown Completed [facility] Pneumococcal 7 Conjugate, PCV7 (Prevnar7) Unknown Completed [facility] Influenza Virus Vaccine Unknown Completed [facility] TDAP Unknown Completed [facility] Influenza Virus Vaccine Unknown Completed [facility] Pneumococcal 7 Conjugate, PCV7 (Prevnar7) Unknown Completed [facility] Influenza High Dose Unknown Completed [facility] Pneumococcal Polysaccharide, PPSV23 (PNEUMOVAX) Unknown Completed [facility] Influenza High Dose Unknown Completed [facility] Zoster(Zostavax)([facility]) Unknown Completed [facility] Influenza Virus Vaccine - Whole Unknown Completed [facility] Influenza Virus Vaccine Unknown Completed [facility] Zoster Vaccine Recombinant Unknown Completed [facility] Zoster Vaccine Recombinant Unknown Completed [facility] SARS-COV-2 COVID-19 PFIZER VACCINE Unknown Completed [facility] SARS-COV-2 COVID-19 PFIZER VACCINE Unknown Completed [facility] Pneumococcal 7 Conjugate, PCV7 (Prevnar7) Unknown Completed [facility] Influenza Virus Vaccine Unknown Completed [facility] TDAP Unknown Completed [facility] Influenza Virus Vaccine Unknown Completed [facility] Pneumococcal 7 Conjugate, PCV7 (Prevnar7) Unknown Completed [facility] Influenza High Dose Unknown Completed [facility] Pneumococcal Polysaccharide, PPSV23 (PNEUMOVAX) Unknown Completed [facility] Influenza High Dose Unknown Completed [facility] Zoster(Zostavax)(Sh ingles) Unknown Completed [facility] Influenza Virus Vaccine - Whole Unknown Completed [facility] Influenza Virus Vaccine Unknown Completed [facility] Zoster Vaccine Recombinant Unknown Completed [facility] Zoster Vaccine Recombinant Unknown Completed [facility] SARS-COV-2 COVID-19 PFIZER VACCINE Unknown Completed [facility] SARS-COV-2 COVID-19 PFIZER VACCINE Unknown Completed [facility] Pneumococcal 7 Conjugate, PCV7 (Prevnar7) Unknown Completed [facility] Influenza Virus Vaccine Unknown Completed [facility] TDAP Unknown Completed [facility] Influenza Virus Vaccine Unknown Completed [facility] Pneumococcal 7 Conjugate, PCV7 (Prevnar7) Unknown Completed [facility] Influenza High Dose Unknown Completed [facility] Pneumococcal Polysaccharide, PPSV23 (PNEUMOVAX) Unknown Completed [facility] Influenza High Dose Unknown Completed [facility] Zoster(Zostavax)([facility] ingles) Unknown Completed [facility] Influenza Virus Vaccine - Whole Unknown Completed [facility] Influenza Virus Vaccine Unknown Completed [facility] Zoster Vaccine Recombinant Unknown Completed [facility] Zoster Vaccine Recombinant Unknown Completed [facility] SARS-COV-2 COVID-19 PFIZER VACCINE Unknown Completed [facility] SARS-COV-2 COVID-19 PFIZER VACCINE Unknown Completed [facility] Pneumococcal 7 Conjugate, PCV7 (Prevnar7) Unknown Completed [facility] Influenza Virus Vaccine Unknown Completed [facility] TDAP Unknown Completed [facility] Influenza Virus Vaccine Unknown Completed [facility] Pneumococcal 7 Conjugate, PCV7 (Prevnar7) Unknown Completed [facility] Influenza High Dose Unknown Completed [facility] Pneumococcal Polysaccharide, PPSV23 (PNEUMOVAX) Unknown Completed [facility] Influenza High Dose Unknown Completed [facility] Zoster(Zostavax)([facility] ingles) Unknown Completed [facility] Influenza Virus Vaccine - Whole Unknown Completed [facility] Influenza Virus Vaccine Unknown Completed [facility] Zoster Vaccine Recombinant Unknown Completed [facility] Zoster Vaccine Recombinant Unknown Completed [facility] SARS-COV-2 COVID-19 PFIZER VACCINE Unknown Completed [facility] SARS-COV-2 COVID-19 PFIZER VACCINE Unknown Completed [facility] FluAD FluAD Unknown [facility] FluAD FluAD Unknown [facility] FluAD Unknown [facility] FluAD Unknown [facility] FluAD Unknown [facility] FluAD Unknown [facility] FluAD Unknown [facility] FluAD Unknown [facility] FluAD Unknown [facility] FluAD Unknown [facility] FluAD FluAD Unknown [facility] FluAD Unknown [facility] [facility] Unknown Completed [facility] FluAD FluAD Unknown Completed Common [facility] FluAD FluAD Unknown Completed Common [facility] FluAD FluAD Unknown Completed Common [facility] FluAD FluAD Unknown Completed Common [facility] FluAD FluAD Unknown Completed Common [facility] Vital Signs Vital Name Observation Time Observation Value Comments S ource Respiratory rate 2023-05-18 15:08:00 12 /min [facility] Body height 2023-05-18 15:08:00 149.9 cm [facility] Body weight 2023-05-18 15:08:00 64.864 kg [facility] BMI 2023-05-18 15:08:00 28.88 kg/m2 [facility] height 2023-03-10 10:50:00 59 [in_i] Commo n [facility] weight 2023-03-10 10:50:00 140.4 [lb_av] Co mmon [facility] temperature 2023-03-10 10:50:00 97.7 [degF] Com mon [facility] bmi 2023-03-10 10:50:00 28.35 kg/m2 Comm on [facility] oximetry 2023-03-10 10:50:00 99 % Commo n [facility] respiratory rate 2023-03-10 10:50:00 16 /min Common [facility] blood pressure systolic 2023-03-10 10:50:00 120 mm[Hg] [facility] blood pressure diastolic 2023-03-10 10:50:00 60 mm[Hg] Common [facility] height 2023-03-10 10:20:00 59 [in_i] Commo n [facility] weight 2023-03-10 10:20:00 140.4 [lb_av] Co mmon [facility] temperature 2023-03-10 10:20:00 97.7 [degF] Com mon [facility] bmi 2023-03-10 10:20:00 28.35 kg/m2 Comm on [facility] oximetry 2023-03-10 10:20:00 99 % Commo n [facility] blood pressure systolic 2023-03-10 10:20:00 120 mm[Hg] [facility] blood pressure diastolic 2023-03-10 10:20:00 60 mm[Hg] Common [facility] Respiratory rate 2023-02-16 19:08:00 12 /min [facility] Body height 2023-02-16 19:08:00 149.9 cm [facility] Body weight 2023-02-16 19:08:00 64.864 kg [facility] BMI 2023-02-16 19:08:00 28.88 kg/m2 [facility] Respiratory rate 2023-01-19 16:28:00 16 /min [facility] Body height 2023-01-19 16:28:00 149.9 cm [facility] Body weight 2023-01-19 16:28:00 64.864 kg [facility] BMI 2023-01-19 16:28:00 28.88 kg/m2 [facility] Respiratory rate 2022-12-15 14:58:00 12 /min [facility] Body height 2022-12-15 14:58:00 149.9 cm [facility] Body weight 2022-12-15 14:58:00 64.864 kg [facility] BMI 2022-12-15 14:58:00 28.88 kg/m2 [facility] height 2022-12-06 10:40:00 59 [in_i] Commo n [facility] weight 2022-12-06 10:40:00 144.6 [lb_av] Co [facility] temperature 2022-12-06 10:40:00 98.0 [degF] Com [facility] bmi 2022-12-06 10:40:00 29.2 kg/m2 Commo n [facility] oximetry 2022-12-06 10:40:00 96 % Commo n [facility] respiratory rate 2022-12-06 10:40:00 16 /min [facility] blood pressure systolic 2022-12-06 10:40:00 142 mm[Hg] Common [facility] blood pressure diastolic 2022-12-06 10:40:00 75 mm[Hg] [facility] height 2022-09-23 14:40:00 59 [in_i] Commo n [facility] weight 2022-09-23 14:40:00 142.6 [lb_av] Co mmon [facility] temperature 2022-09-23 14:40:00 97.9 [degF] Com [facility] bmi 2022-09-23 14:40:00 28.8 kg/m2 Commo n [facility] oximetry 2022-09-23 14:40:00 98 % Commo n [facility] respiratory rate 2022-09-23 14:40:00 18 /min [facility] blood pressure systolic 2022-09-23 14:40:00 137 mm[Hg] [facility] blood pressure diastolic 2022-09-23 14:40:00 63 mm[Hg] [facility] Body height 2022-09-22 15:37:00 149.9 cm [facility] Body weight 2022-09-22 15:37:00 64.864 kg [facility] BMI 2022-09-22 15:37:00 28.88 kg/m2 [facility] height 2022-08-30 10:20:00 59 [in_i] Commo n [facility] weight 2022-08-30 10:20:00 144.9 [lb_av] Co mmon [facility] temperature 2022-08-30 10:20:00 97.2 [degF] Com mon [facility] bmi 2022-08-30 10:20:00 29.26 kg/m2 Comm on [facility] oximetry 2022-08-30 10:20:00 98 % Commo n [facility] respiratory rate 2022-08-30 10:20:00 18 /min [facility] blood pressure systolic 2022-08-30 10:20:00 118 mm[Hg] [facility] blood pressure diastolic 2022-08-30 10:20:00 61 mm[Hg] [facility] Respiratory rate 2022-08-25 15:38:00 12 /min [facility] Body height 2022-08-25 15:38:00 149.9 cm [facility] Body weight 2022-08-25 15:38:00 65.137 kg [facility] BMI 2022-08-25 15:38:00 29.00 kg/m2 [facility] Oxygen saturation in Arterial blood by Pulse oximetry 2022-08-25 15:38:00 98 /min [facility] Systolic blood pressure 2022-06-23 17:57:00 126 mm[Hg] [facility] Diastolic blood pressure 2022-06-23 17:57:00 65 mm[Hg] [facility] Heart rate 2022-06-23 17:57:00 84 /min [facility] Body temperature 2022-06-23 17:57:00 36.72 Lena [facility] Respiratory rate 2022-06-23 17:57:00 16 /min [facility] Body height 2022-06-23 17:57:00 149.9 cm [facility] Body weight 2022-06-23 17:57:00 65.137 kg [facility] BMI 2022-06-23 17:57:00 29.00 kg/m2 [facility] Oxygen saturation in Arterial blood by Pulse oximetry 2022-06-23 17:57:00 95 /min [facility] height 2022-04-30 09:30:00 59 [in_i] Commo n [facility] weight 2022-04-30 09:30:00 144 [lb_av] Comm on [facility] temperature 2022-04-30 09:30:00 97.2 [degF] Com mon [facility] bmi 2022-04-30 09:30:00 29.08 kg/m2 Comm on [facility] oximetry 2022-04-30 09:30:00 99 % Commo n [facility] respiratory rate 2022-04-30 09:30:00 16 /min Common [facility] blood pressure systolic 2022-04-30 09:30:00 120 mm[Hg] Common [facility] blood pressure diastolic 2022-04-30 09:30:00 56 mm[Hg] Common [facility] height 2022-04-30 10:00:00 59 [in_i] Commo n [facility] weight 2022-04-30 10:00:00 144 [lb_av] Comm on [facility] temperature 2022-04-30 10:00:00 97.2 [degF] Com mon [facility] bmi 2022-04-30 10:00:00 29.08 kg/m2 Comm on [facility] oximetry 2022-04-30 10:00:00 99 % Commo n [facility] respiratory rate 2022-04-30 10:00:00 16 /min Common [facility] blood pressure systolic 2022-04-30 10:00:00 120 mm[Hg] Common [facility] blood pressure diastolic 2022-04-30 10:00:00 56 mm[Hg] Common [facility] Systolic blood pressure 2022-03-03 17:12:00 109 mm[Hg] [facility] Diastolic blood pressure 2022-03-03 17:12:00 67 mm[Hg] [facility] Heart rate 2022-03-03 17:12:00 95 /min [facility] Body temperature 2022-03-03 17:12:00 36.89 L[facility] Respiratory rate 2022-03-03 17:12:00 18 /min [facility] Body height 2022-03-03 17:12:00 149.9 cm [facility] Body weight 2022-03-03 17:12:00 63.912 kg [facility] BMI 2022-03-03 17:12:00 28.46 kg/m2 [facility] Oxygen saturation in Arterial blood by Pulse oximetry 2022-03-03 17:12:00 98 /min [facility] Systolic blood pressure 2022-01-06 19:11:00 102 mm[Hg] [facility] Diastolic blood pressure 2022-01-06 19:11:00 61 mm[Hg] [facility] Heart rate 2022-01-06 19:11:00 101 /min [facility] Body temperature 2022-01-06 19:11:00 36.83 L[facility] Respiratory rate 2022-01-06 19:11:00 16 /min [facility] Body height 2022-01-06 19:11:00 149.9 cm [facility] Body weight 2022-01-06 19:11:00 62.279 kg [facility] BMI 2022-01-06 19:11:00 27.73 kg/m2 [facility] Oxygen saturation in Arterial blood by Pulse oximetry 2022-01-06 19:11:00 95 /min [facility] Systolic blood pressure 2021-12-15 18:56:00 115 mm[Hg] [facility] Diastolic blood pressure 2021-12-15 18:56:00 65 mm[Hg] [facility] Heart rate 2021-12-15 18:56:00 98 /min [facility] Body temperature 2021-12-15 18:56:00 36.89 L[facility] Body height 2021-12-15 18:56:00 149.9 cm [facility] Body weight 2021-12-15 18:56:00 64.229 kg [facility] BMI 2021-12-15 18:56:00 28.60 kg/m2 [facility] Oxygen saturation in Arterial blood by Pulse oximetry 2021-12-15 18:56:00 97 /min [facility] Systolic blood pressure 2021-12-09 18:11:00 127 mm[Hg] [facility] Diastolic blood pressure 2021-12-09 18:11:00 77 mm[Hg] [facility] Heart rate 2021-12-09 18:11:00 87 /min [facility] Body temperature 2021-12-09 18:11:00 37 Lena [facility] Respiratory rate 2021-12-09 18:11:00 18 /min [facility] Body height 2021-12-09 18:11:00 149.9 cm [facility] Body weight 2021-12-09 18:11:00 64.184 kg [facility] BMI 2021-12-09 18:11:00 28.58 kg[facility] in Arterial blood by Pulse oximetry 2021-12-09 18:11:00 98 /min [facility] Systolic blood pressure 2021-11-11 18:21:00 110 mm[Hg] [facility] Diastolic blood pressure 2021-11-11 18:21:00 64 mm[Hg] [facility] Heart rate 2021-11-11 18:21:00 103 /min [facility] Body temperature 2021-11-11 18:21:00 36.94 L[facility] Respiratory rate 2021-11-11 18:21:00 18 /min [facility] Body height 2021-11-11 18:21:00 149.9 cm [facility] Body weight 2021-11-11 18:21:00 63.594 kg [facility] BMI 2021-11-11 18:21:00 28.32 kg/m2 [facility] Oxygen saturation in Arterial blood by Pulse oximetry 2021-11-11 18:21:00 97 /min [facility] height 2021-10-27 10:50:00 59.5 [in_i] Comm on [facility] weight 2021-10-27 10:50:00 142.5 [lb_av] Co mmon [facility] temperature 2021-10-27 10:50:00 97.4 [degF] Com mon [facility] bmi 2021-10-27 10:50:00 28.3 kg/m2 Commo n [facility] oximetry 2021-10-27 10:50:00 94 % Commo n [facility] respiratory rate 2021-10-27 10:50:00 16 /min Common [facility] blood pressure systolic 2021-10-27 10:50:00 115 mm[Hg] Common [facility] blood pressure diastolic 2021-10-27 10:50:00 57 mm[Hg] [facility] Systolic blood pressure 2021-10-14 20:05:00 146 mm[Hg] [facility] Diastolic blood pressure 2021-10-14 20:05:00 77 mm[Hg] [facility] Heart rate 2021-10-14 20:05:00 86 /min [facility] 2021-10-14 20:05:00 36.94 [facility] Respiratory rate 2021-10-14 20:05:00 18 /min [facility] Body height 2021-10-14 20:05:00 149.9 cm [facility] Body weight 2021-10-14 20:05:00 64.547 kg [facility] BMI 2021-10-14 20:05:00 28.74 kg/m2 [facility] Oxygen saturation in Arterial blood by Pulse oximetry 2021-10-14 20:05:00 98 /min [facility] height 2021-07-24 10:50:00 59 [in_i] Commo n [facility] weight 2021-07-24 10:50:00 148.2 [lb_av] Co [facility] temperature 2021-07-24 10:50:00 98.1 [degF] Com [facility] bmi 2021-07-24 10:50:00 29.93 kg/m2 Comm on [facility] oximetry 2021-07-24 10:50:00 100 % Commo n [facility] respiratory rate 2021-07-24 10:50:00 18 /min [facility] blood pressure systolic 2021-07-24 10:50:00 120 mm[Hg] [facility] blood pressure diastolic 2021-07-24 10:50:00 57 mm[Hg] Common [facility] height 2021-04-27 13:30:00 59 [in_i] Commo n [facility] weight 2021-04-27 13:30:00 161.0 [lb_av] Co on [facility] temperature 2021-04-27 13:30:00 97.3 [degF] Com [facility] bmi 2021-04-27 13:30:00 32.51 kg/m2 Comm on [facility] oximetry 2021-04-27 13:30:00 97 % Commo n [facility] respiratory rate 2021-04-27 13:30:00 17 /min Common [facility] blood pressure systolic 2021-04-27 13:30:00 111 mm[Hg] Common [facility] blood pressure diastolic 2021-04-27 13:30:00 50 mm[Hg] [facility] height 2021-04-27 13:40:00 59 [in_i] Commo n [facility] weight 2021-04-27 13:40:00 161 [lb_av] Comm on [facility] temperature 2021-04-27 13:40:00 97.3 [degF] Com mon [facility] bmi 2021-04-27 13:40:00 32.51 kg/m2 Comm on [facility] oximetry 2021-04-27 13:40:00 97 % Commo n [facility] respiratory rate 2021-04-27 13:40:00 17 /min Common [facility] blood pressure systolic 2021-04-27 13:40:00 111 mm[Hg] [facility] blood pressure diastolic 2021-04-27 13:40:00 50 mm[Hg] [facility] height 2021-03-26 14:00:00 59 [in_i] Commo n [facility] weight 2021-03-26 14:00:00 164.4 [lb_av] Co mmon [facility] temperature 2021-03-26 14:00:00 96.8 [degF] Com mon [facility] bmi 2021-03-26 14:00:00 33.2 kg/m2 Commo n [facility] oximetry 2021-03-26 14:00:00 98 % Commo n [facility] respiratory rate 2021-03-26 14:00:00 18 /min Common [facility] blood pressure systolic 2021-03-26 14:00:00 108 mm[Hg] [facility] blood pressure diastolic 2021-03-26 14:00:00 52 mm[Hg] [facility] height 2021-03-10 13:30:00 59 [in_i] Commo n [facility] weight 2021-03-10 13:30:00 158 [lb_av] Comm on [facility] temperature 2021-03-10 13:30:00 97.0 [degF] Com mon [facility] bmi 2021-03-10 13:30:00 31.91 kg/m2 Comm on [facility] oximetry 2021-03-10 13:30:00 98 % Commo n [facility] respiratory rate 2021-03-10 13:30:00 18 /min [facility] blood pressure systolic 2021-03-10 13:30:00 126 mm[Hg] Common [facility] blood pressure diastolic 2021-03-10 13:30:00 71 mm[Hg] Common [facility] height 2021-01-23 09:00:00 59 [in_i] Commo n [facility] weight 2021-01-23 09:00:00 158.8 [lb_av] Co mmon [facility] temperature 2021-01-23 09:00:00 97.2 [degF] Com mon [facility] bmi 2021-01-23 09:00:00 32.07 kg/m2 Comm on [facility] oximetry 2021-01-23 09:00:00 98 % Commo n [facility] respiratory rate 2021-01-23 09:00:00 17 /min [facility] blood pressure systolic 2021-01-23 09:00:00 131 mm[Hg] [facility] blood pressure diastolic 2021-01-23 09:00:00 59 mm[Hg] Common [facility] Procedures Procedure Date / Time Performed Performing Clinician Source ASSIGNMENT OF BENEFITS 2022-11-17 13:18:12 Docrosalba r Unassigned, [place] [facility] EXTERNAL PROVIDER RECORDS 2022-08-10 05:01:00 Doctor Unassigned, [place] [facility] PATIENT FINANCIAL POLICY 2022-04-28 14:33:31 Doctor Unassigned, [place] [facility] URINALYSIS MICROSCOPIC 2021-11-11 19:24:00 Cayetano Godfrey [facility] URINE CULTURE 2021-11-11 19:24:00 [facility] ASSIGNMENT OF BENEFITS 2021-11-11 18:03:09 Roshan r Unassigned, [place] [facility] REFERRAL- REQUEST/RESPONSE 2021-11-03 05:01:00 Doctor Unassigned, [place] [facility] Encounters Start Date/Time End Date/Time Encounter Type Admission Type Attending [facility] Care Facility Care Department Encounter ID Source 2023-03-10 15:35:00 Outpatient Gallo, [facility] [id number] [facility] 2022-09-23 14:51:00 Outpatient Gallo, [facility] [id number] [facility] 2022-01-22 11:14:02 Outpatient Gallo, [facility] [id number] [facility] 2021-04-16 17:04:01 Outpatient Gallo, [facility] [id number] [facility] 2021-04-09 09:00:02 Outpatient Gallo, [facility] [id number] [facility] 2021-04-08 15:59:02 Outpatient Gallo, [facility] [id number] [facility] 2021-03-30 08:52:01 Outpatient Gallo, [facility] [id number] [facility] 2021-03-26 13:28:02 [facility] [id number] [facility] 2021-03-11 14:40:07 [facility] [id number] [facility] 2021-03-11 14:16:28 [facility] [id number] [facility] 2021-03-11 14:11:10 [facility] [id number] [facility] 2021-03-11 14:10:16 [facility] [id number] [facility] 2020-12-16 05:02:12 Outpatient R [facility]I [facility] [id number] [facility] 2020-12-15 19:17:29 Outpatient KHOI LAN [facility] [id number] [facility] 2023-07-20 09:30:00 2023-07-20 09:30:00 Outpatient R [facility] [id number] [facility] 2023-06-22 13:00:00 2023-06-22 13:00:00 Outpatient Jordyn [facility] [id number] [facility] 2023-05-18 09:30:00 2023-05-18 10:00:00 Nurse Visit Nurse, Tara [facility] OFFICE BUILDING [id number] [facility] 2023-05-18 09:30:00 2023-05-18 09:30:00 Outpatient Jordyn [facility] [id number] [facility] 2023-04-20 09:30:00 2023-04-20 10:00:00 Nurse Visit Nurse, [facility] MEDICAL OFFICE BUILDING [id number] [facility] 2023-04-20 09:30:00 2023-04-20 09:30:00 Outpatient Jordyn [facility] [id number] [facility] 2023-04-07 00:00:00 2023-04-07 00:00:00 (TEL) STLC STLMLC [id number] [facility] 2023-03-30 00:00:00 2023-03-30 00:00:00 (TEL) STLC STLC [id number] [facility] 2023-03-23 09:30:00 2023-03-23 10:00:00 Nurse Visit Nurse, Tara [facility] MEDICAL OFFICE BUILDING [id number] [facility] 2023-03-23 09:30:00 2023-03-23 09:30:00 Outpatient Jordyn [facility] [id number] [facility] 2023-03-10 00:00:00 2023-03-10 00:00:00 SUB ANNUAL [facility] [id number] [facility] 2023-03-10 00:00:00 2023-03-10 00:00:00 (TEL) STLMLC STLMLC [id number] [facility] 2023-03-10 00:00:00 2023-03-10 00:00:00 OFFICE VISIT ESTAB PT LEVEL 4 STLC STLC [id number] [facility] 2023-02-16 10:00:00 2023-02-16 10:30:00 Nurse Visit Nurse, Tara [facility] MEDICAL OFFICE BUILDING [id number] [id number] [facility] 2023-02-16 10:00:00 2023-02-16 10:00:00 Outpatient Jordyn [facility] [id number] [facility] 2023-01-19 10:00:00 2023-01-19 10:26:42 Outpatient Jordyn [facility] [id number] [facility] 2023-01-19 10:00:00 2023-01-19 10:26:42 Nurse Visit Nurse, [facility] MEDICAL OFFICE BUILDING [id number] [id number] [facility] 2022-12-15 09:30:00 2022-12-15 09:59:18 Outpatient Jordyn [facility] [id number] [facility] 2022-12-15 09:30:00 2022-12-15 09:59:18 Nurse Visit Nurse, Cbc [facility] MEDICAL OFFICE BUILDING [id number] [id number] [id number] [facility] 2022-12-09 00:00:00 2022-12-09 00:00:00 [facility]TEL[facility] [id number] [facility] 2022-12-06 00:00:00 2022-12-06 00:00:00 OFFICE VISIT ESTAB PT LEVEL [address] [facility] ST[facility] [id number] [facility] 2022-11-17 08:30:00 2022-11-17 08:30:00 Outpatient Jordyn [facility] [id number] [facility] 2022-11-17 00:00:00 2022-11-17 00:00:00 Orders Only Doctor Unassigned, [place] [facility] [id number] 350.1.13.10 [id number] [facility] 2022-10-20 09:30:00 2022-10-20 10:00:00 Nurse Visit Nurse, [facility] MEDICAL OFFICE BUILDING [id number] [id number] [id number] [id number] [facility] 2022-10-20 09:30:00 2022-10-20 09:30:00 Outpatient Jordyn [facility] [id number] [facility] 2022-09-23 00:00:00 2022-09-23 00:00:00 (TEL) [facility] [id number] [facility] 2022-09-23 00:00:00 2022-09-23 00:00:00 OFFICE VISIT ESTAB PT [facility]EL [facility] [facility] [id number] [facility] 2022-09-22 10:00:00 2022-09-22 10:30:00 Nurse Visit Nurse, [facility] Urology Unknown, [facility] MEDICAL OFFICE BUILDING 1.2.840.114 350.1.13.10 4.2.7.2.686 [id number] [facility] 2022-09-22 10:00:00 2022-09-22 10:00:00 Outpatient R ALPA [facility]FREY [facility] [id number] [facility] 2022-08-30 00:00:00 2022-08-30 00:00:00 [facility]ICE [facility] [id number] [facility] 2022-08-25 10:00:00 2022-08-25 10:30:00 Nurse Visit Nurse, [facility] MEDICAL OFFICE BUILDING 1.2.840.114 350.1.13.10 4.2.7.2.686 [id number] [facility] 2022-08-25 10:00:00 2022-08-25 10:00:00 Outpatient R EPIFANIO [facility] [id number] [facility] 2022-08-25 00:00:00 2022-08-25 00:00:00 Telephone [facility] MEDICAL OFFICE BUILDING 1.2.840.114 350.1.13.10 4.2.7.2.686 [id number] [facility] 2022-08-25 00:00:00 2022-08-25 00:00:00 Patient Secure Msg Doctor Unassigned, [place] [facility] 1.2.840.114 350.1.13.10 4.2.7.2.686 [id number] [facility] 2022-08-10 00:00:00 2022-08-10 00:00:00 Telephone [facility] MEDICAL OFFICE BUILDING 1.2.840.114 350.1.13.10 4.2.7.2.686 [id number] [facility] 2022-08-10 00:00:00 2022-08-10 00:00:00 Orders Only Doctor Unassigned, [place] [facility] 1.2.840.114 350.1.13.10 4.2.7.2.686 [id number] [facility] 2022-08-10 00:00:00 2022-08-10 00:00:00 Telephone [facility] MEDICAL OFFICE BUILDING 1.2.840.114 350.1.13.10 4.2.7.2.686 [id number] [facility] 2022-07-21 10:00:00 2022-07-21 10:30:00 Nurse Visit Nurse, [facility] MEDICAL OFFICE BUILDING 1.2.840.114 350.1.13.10 4.2.7.2.686 [id number] [facility] 2022-07-21 10:00:00 2022-07-21 10:00:00 [facility] [id number] [facility] 2022-06-23 13:00:00 2022-06-23 13:15:00 [facility] 1.2.840.114 350.1.13.10 4.2.7.2.686 [id number] [facility] 2022-06-23 13:00:00 2022-06-23 13:00:00 Outpatient R EPIFANIO [facility] [id number] [facility] 2022-06-08 00:00:00 2022-06-08 00:00:00 (TEL) STLMLC STLMLC [id number] [facility] 2022-05-26 14:00:00 2022-05-26 14:00:00 Outpatient Jordyn [facility]Y [facility] [id number] [facility] 2022-05-26 14:00:00 2022-05-26 14:00:00 Nurse Visit Nurse, [facility]rology [facility] MEDICAL OFFICE BUILDING 1.2.840.114 350.1.13.10 4.2.7.2.686 [id number] [facility] 2022-05-05 00:00:00 2022-05-05 00:00:00 (TEL) STLMLC STLMLC [id number] [facility] 2022-04-30 00:00:00 2022-04-30 00:00:00 OFFICE VISIT ESTAB PT LEVEL 4 STLMLC STLMLC [id number] [facility] 2022-04-30 00:00:00 2022-04-30 00:00:00 SUB ANNUAL [facility] WELLNESS VISIT STLMLC STLMLC [id number] [facility] 2022-04-29 00:00:00 2022-04-29 00:00:00 (TEL) STLC STLC [id number] [facility] 2022-04-28 10:00:00 2022-04-28 10:04:15 [facility] [id number] 2022-04-28 10:00:00 2022-04-28 10:04:15 Nurse Visit Nurse, [facility] Urology [facility] MEDICAL OFFICE BUILDING 1.2.840.114 350.1.13.10 4.2.7.2.686 [id number] [facility] 2022-04-28 00:00:00 2022-04-28 00:00:00 Orders Only Doctor Unassigned, [place] [facility] 1.2.840.114 350.1.13.10 4.2.7.2.686 [id number] [facility] 2022-04-21 00:00:00 2022-04-21 00:00:00 [facility]EL[facility] [id number] [facility] 2022-04-20 00:00:00 2022-04-20 00:00:00 (TEL) STLC STLMLC [id number] [facility] 2022-04-20 00:00:00 2022-04-20 00:00:00 (TEL) STLC STLMLC [id number] [facility] 2022-03-31 10:30:00 2022-03-31 11:00:00 Nurse Visit Nurse, [facility] Urology Unknown, Attending [facility] MEDICAL OFFICE BUILDING 1.2.840.114 350.1.13.10 4.2.7.2.686 [id number] [facility] 2022-03-31 10:30:00 2022-03-31 10:30:00 Outpatient R EPIFANIO, [facility] [id number] [facility] 2022-03-03 11:00:00 2022-03-03 11:18:57 Nurse Visit Nurse, Melani Godfrey [facility] MEDICAL OFFICE BUILDING 1.2.840.114 350.1.13.10 4.2.7.2.686 [id number] [facility] 2022-03-03 11:00:00 2022-03-03 11:00:00 Outpatient Jordyn [facility]Y [facility] [id number] [facility] 2022-02-03 13:00:00 2022-02-03 13:57:24 Nurse Visit [facility], [facility] 1.2.840.114 350.1.13.10 4.2.7.2.686 [id number] [facility] 2022-02-03 13:00:00 2022-02-03 13:00:00 Outpatient Jordyn АЛЕКСАНДР ESTRELLA [facility] [id number] [facility] 2022-02-02 13:00:00 2022-02-02 13:00:00 Outpatient JAMAR JOSEPH [facility] [id number] [facility] 2022-01-06 13:00:00 2022-01-06 13:58:14 Nurse Visit NurseMelani [facility] MEDICAL OFFICE BUILDING 1.2.840.114 350.1.13.10 4.2.7.2.686 [id number] [facility] 2022-01-06 13:00:00 2022-01-06 13:00:00 Outpatient Jordyn GODFREY [facility] [id number] [facility] 2021-12-15 14:30:00 2021-12-15 14:45:00 Office Visit Faustino Ralph [facility] 1.2.840.114 350.1.13.10 4.2.7.2.686 [id number] [facility] 2021-12-15 14:30:00 2021-12-15 14:30:00 Outpatient R FAUSTINO RALPH [facility] [id number] [facility] 2021-12-09 13:00:00 2021-12-09 13:50:42 Outpatient R EPIFANIO [facility] [id number] [facility] 2021-12-09 13:00:00 2021-12-09 13:50:42 Nurse Visit Nurse, [facility] 1.2.840.114 350.1.13.10 4.2.7.2.686 [id number] [facility] 2021-12-09 00:00:00 2021-12-09 00:00:00 Telephone [facility] MEDICAL OFFICE BUILDING 1.2.840.114 350.1.13.10 4.2.7.2.686 [id number] [facility] 2021-12-03 00:00:00 2021-12-03 00:00:00 (TEL) STLMLC STLMLC [id number] [facility] 2021-11-16 00:00:00 2021-11-16 00:00:00 Telephone [facility] MEDICAL OFFICE BUILDING 1.2.840.114 350.1.13.10 4.2.7.2.686 [id number] [facility] 2021-11-11 13:00:00 2021-11-11 15:58:43 Nurse Visit Nurse, [facility] 1.2.840.114 350.1.13.10 4.2.7.2.686 [id number] [facility] 2021-11-11 13:00:00 2021-11-11 13:00:00 Outpatient R EPIFANIO [facility] [id number] [facility] 2021-11-11 00:00:00 2021-11-11 00:00:00 Orders Only Doctor Unassigned, [place] [facility] 1.2.840.114 350.1.13.10 4.2.7.2.686 [id number] [facility] 2021-11-03 00:00:00 2021-11-03 00:00:00 Orders Only Doctor Unassigned, [place] [facility] 1.2.840.114 350.1.13.10 4.2.7.2.686 [id number] [facility] 2021-11-02 00:00:00 2021-11-02 00:00:00 (TEL) STLMLC STLMLC [id number] [facility] 2021-10-27 00:00:00 2021-10-27 00:00:00 OFFICE VISIT ESTAB PT LEVEL 4 STLMLC STLMLC [id number] [facility] 2021-10-27 00:00:00 2021-10-27 00:00:00 (TEL) STLMLC STLMLC [id number] [facility] 2021-10-14 16:45:00 2021-10-14 16:45:00 Office Visit Epifanio [facility] MEDICAL OFFICE BUILDING 1.2.840.114 350.1.13.10 4.2.7.2.686 [id number] [facility] 2021-10-14 16:45:00 2021-10-14 15:48:20 Outpatient Jordyn QUIÑONEZEPIFANIO, [facility] [id number] [facility] 2021-10-14 16:45:00 2021-10-14 15:48:20 Outpatient Jordyn [facility]FREY [facility] [id number] [facility] 2021-09-28 00:00:00 2021-09-28 00:00:00 Telephone Estrella Smith [facility] 1..840.114 350.1.13.10 4.2.7.2.686 [id number] [facility] 2021-09-16 15:30:00 2021-09-16 16:00:00 Nurse Visit Nurse, Melani Smith [facility] MEDICAL OFFICE BUILDING 1.2.840.114 350.1.13.10 4.2.7.2.686 [id number] [facility] 2021-09-16 15:30:00 2021-09-16 15:30:00 Outpatient ESTRELLA SMITH [facility] [id number] [facility] 2021-09-16 15:30:00 2021-09-16 15:30:00 Outpatient ESTRELLA SMITH [facility] [id number] [facility] 2021-09-14 00:00:00 2021-09-14 00:00:00 Outpatient RAQUELONMAURISIO SERIVN [facility] [id number] [facility] 2021-08-19 13:30:00 2021-08-19 14:36:36 Nurse Visit Nurse, Melani Smith [facility] MEDICAL OFFICE BUILDING 1.2.840.114 350.1.13.10 4.2.7.2.686 [id number] [facility] 2021-08-19 13:30:00 2021-08-19 13:30:00 Outpatient ESTRELLA SMITH [facility] [id number] [facility] 2021-07-28 13:15:00 2021-07-28 14:01:42 Outpatient JAMAR JOSEPH [facility] [id number] [facility] 2021-07-28 13:15:00 2021-07-28 14:01:42 Office Visit Allan [facility] MEDICAL OFFICE BUILDING 1.2.840.114 350.1.13.10 4.2.7.2.686 [id number] [facility] 2021-07-27 00:00:00 2021-07-27 00:00:00 [facility] [id number] [facility] 2021-07-24 00:00:00 2021-07-24 00:00:00 OFFICE VISIT ESTAB PT LEVEL 4 STLMLC STLC [id number] [facility] 2021-07-22 14:29:30 2021-07-22 23:59:00 Outpatient R JAMAR LEMUS [facility] [id number] [facility] 2021-07-22 14:29:30 2021-07-22 23:59:00 Hospital Encounter Allan [facility] 1.2.840.114 350.1.13.10 4.2.7.2.686 [id number] [facility] 2021-07-22 13:30:00 2021-07-22 14:26:35 Outpatient R EPIFANIO [facility] [id number] [facility] 2021-07-22 13:30:00 2021-07-22 14:26:35 Office Visit Epifanio [facility] MEDICAL OFFICE BUILDING 1.2.840.114 350.1.13.10 4.2.7.2.686 [id number] [facility] 2021-07-22 13:30:00 2021-07-22 14:26:35 [facility] [id number] [facility] 2021-07-14 14:30:00 2021-07-14 14:36:48 Outpatient R ALLAN JAMAR [facility] [id number] [facility] 2021-07-14 14:30:00 2021-07-14 14:36:48 Office Visit Jamar Lemus [facility] MEDICAL OFFICE BUILDING 1.2.840.114 350.1.13.10 4.2.7.2.686 [id number] [facility] 2021-07-07 00:00:00 2021-07-07 00:00:00 (TEL) [facility] [id number] [facility] 2021-07-06 00:00:00 2021-07-06 00:00:00 Telephone Epifanio [facility] MEDICAL OFFICE BUILDING 1.2.840.114 350.1.13.10 4.2.7.2.686 [id number] [facility] 2021-06-29 00:00:00 2021-06-29 00:00:00 [facility] 1.2.840.114 350.1.13.10 4.2.7.2.686 [id number] [facility] 2021-06-24 13:30:00 2021-06-24 17:00:44 Outpatient R ALPA GODFREY [facility] [id number] [facility] 2021-06-24 13:30:00 2021-06-24 13:45:00 Office Visit Epifanio [facility] MEDICAL OFFICE BUILDING 1.2.840.114 350.1.13.10 4.2.7.2.686 [id number] [facility] 2021-06-16 09:30:00 2021-06-16 09:30:00 Outpatient R EPIFANIO [facility] [id number] [facility] 2021-06-16 09:30:00 2021-06-16 09:30:00 [facility] [id number] [facility] 2021-06-09 09:45:00 2021-06-09 11:04:20 Outpatient R ALPA GODFREY [facility] [id number] [facility] 2021-06-09 09:45:00 2021-06-09 11:04:20 Outpatient R ALPA GODFREY [facility] [id number] [facility] 2021-06-09 09:45:00 2021-06-09 11:04:20 Office Visit Epifanio [facility] PRIMARY [facility] SPECIALTY CARE 1.2.840.114 350.1.13.10 4.2.7.2.686 [id number] [facility] 2021-06-09 09:45:00 2021-06-09 11:04:20 Outpatient R ALPA GODFREY [facility] [id number] [facility] 2021-06-09 09:45:00 2021-06-09 11:04:20 Outpatient R EPIFANIO [facility] [id number] [facility] 2021-06-04 13:45:00 2021-06-04 14:33:13 Outpatient R EPIFANIO [facility] [id number] [facility] 2021-06-04 13:45:00 2021-06-04 14:33:13 [facility] [id number] [facility] 2021-06-04 13:45:00 2021-06-04 14:33:13 Office Visit Epifanio [facility] PRIMARY SPECIALTY CARE 1.2.840.114 350.1.13.10 4.2.7.2.686 [id number] [facility] 2021-05-13 00:00:00 2021-05-13 00:00:00 Telephone Epifanio [facility] PRIMARY [facility] SPECIALTY CARE 1.2.840.114 350.1.13.10 4.2.7.2.686 [id number] [facility] 2021-05-07 13:00:00 2021-05-07 15:08:05 [facility] [id number] [facility] 2021-05-07 13:00:00 2021-05-07 15:08:05 Office Visit Epifanio [facility] PRIMARY [facility] SPECIALTY CARE 1.2.840.114 350.1.13.10 4.2.7.2.686 [id number] [facility] 2021-05-07 13:00:00 2021-05-07 15:08:05 Outpatient Jordyn [facility]FREY [facility] [id number] [facility] 2021-05-07 00:00:00 2021-05-07 00:00:00 Orders Only Doctor Unassigned, [place] [facility] 1..840.114 350.1.13.10 4.2.7.2.686 [id number] [facility] 2021-04-27 00:00:00 2021-04-27 00:00:00 OFFICE VISIT [facility] [id number] [facility] 2021-04-27 00:00:00 2021-04-27 00:00:00 [facility]EL[facility] [id number] [facility] 2021-04-27 00:00:00 2021-04-27 00:00:00 SUB ANNUAL [facility] [id number] [facility] 2021-04-17 00:00:00 2021-04-17 00:00:00 [facility]EL[facility] [id number] [facility] 2021-04-14 15:00:00 2021-04-14 16:01:53 [facility] [id number] [facility] 2021-04-14 15:00:00 2021-04-14 16:01:53 Office Visit Epifanio [facility] PRIMARY & SPECIALTY CARE 1.2.840.114 350.1.13.10 4.2.7.2.686 [id number] [facility] 2021-04-14 15:00:00 2021-04-14 16:01:53 Outpatient R ALPA GODFREY [facility] [id number] [facility] 2021-04-14 15:00:00 2021-04-14 16:01:53 Outpatient R EPIFANIO [facility] [id number] [facility] 2021-04-08 00:00:00 2021-04-08 00:00:00 (TEL) STLMLC STLMLC [id number] [facility] 2021-04-03 15:00:00 2021-04-03 15:00:00 Nurse Visit Nurse, [facility] Surgery Karolina Mcfarland [facility] BUILDING 1.2.840.114 350.1.13.10 4.2.7.2.686 [id number] [facility] 2021-04-03 15:00:00 2021-04-03 14:31:18 Outpatient R KAROLINA BOONE [facility] [id number] [facility] 2021-04-03 15:00:00 2021-04-03 14:31:18 Outpatient R KAROLINA BOONE [facility] [id number] [facility] 2021-04-01 09:00:00 2021-04-01 10:54:30 Outpatient R KAROLINA BOONE [facility] [id number] [facility] 2021-04-01 09:00:00 2021-04-01 10:54:30 [facility] BUILD[facility] 1.2.840.114 350.1.13.10 4.2.7.2.686 [id number] [facility] 2021-04-01 09:00:00 2021-04-01 10:54:30 Outpatient R KAROLINA BOONE [facility] [id number] [facility] 2021-04-01 09:00:00 2021-04-01 10:54:30 Outpatient R KAROLINA BOONE [facility] [id number] [facility] 2021-03-31 00:00:00 2021-03-31 00:00:00 Orders Only Doctor Unassigned, [place] [facility] 1.2.840.114 350.1.13.10 4.2.7.2.686 [id number] [facility] 2021-03-30 00:00:00 2021-03-30 00:00:00 (TEL) STLMLC STLMLC [id number] [facility] 2021-03-30 00:00:00 2021-03-30 00:00:00 (TEL) STLMLC STLMLC [id number] [facility] 2021-03-30 00:00:00 2021-03-30 00:00:00 (TEL) STLMLC STLMLC [id number] [facility] 2021-03-26 00:00:00 2021-03-26 00:00:00 (HOSP F/U) Hospital Follow Up STLMLC STLMLC [id number] [facility] 2021-03-25 00:00:00 2021-03-25 00:00:00 (TEL) STLMLC STLMLC [id number] [facility] 2021-03-19 00:00:00 2021-03-19 00:00:00 (TEL) STLMLC STLMLC [id number] [facility] 2021-03-18 00:00:00 2021-03-18 00:00:00 (TEL) STLMLC STLMLC [id number] [facility] 2021-03-13 00:00:00 2021-03-13 00:00:00 (TEL) STLMLC STLMLC [id number] [facility] 2021-03-10 00:00:00 2021-03-10 00:00:00 OFFICE VISIT ESTAB PT LEVEL 2 STLMLC STLMLC [id number] [facility] 2021-03-09 00:00:00 2021-03-09 00:00:00 (TEL) STLMLC STLMLC [id number] [facility] 2021-01-23 00:00:00 2021-01-23 00:00:00 OFFICE VISIT NEW PT LEVEL 4 STLMLC STLMLC [id number] [facility] 2020-12-24 00:00:00 2020-12-24 00:00:00 (TEL) STLMLC STLMLC [id number] [facility] 2020-12-22 00:00:00 2020-12-22 00:00:00 (TEL) STLMLC STLMLC [id number] [facility] 2020-11-27 07:37:00 2020-11-27 10:50:00 Hospital Encounter Khoi Lan [facility] 1.2.840.114 350.1.13.10 4.2.7.2.686 [id number] [facility] 2020-11-27 09:51:00 2020-11-27 10:28:00 Surgery Khoi Lan [facility] 1.2.840.114 350.1.13.10 4.2.7.2.686 [id number] [facility] 2020-11-25 11:30:00 2020-11-25 11:30:00 Outpatient R EDYTAKHOI LEONARDO [facility] [id number] [facility] 2020-11-25 11:13:10 2020-11-25 11:28:10 Laboratory Only Only, Adc Test Edyta, Khio Jamar [facility] 1.2.840.114 350.1.13.10 4.2.7.2.686 [id number] [facility] 2020-11-25 00:00:00 2020-11-25 00:00:00 Orders Only Doctor Unassigned, [place] [facility] 1.2.840.114 350.1.13.10 4.2.7.2.686 [id number] [facility] 2020-11-11 00:00:00 2020-11-11 00:00:00 Talya Israel Zehra Sunday [facility] Professio [facility] 1.2.840.114 350.1.13.10 4.2.7.2.686 [id number] [facility] 2020-10-23 06:56:00 2020-10-23 10:08:00 Hospital Encounter Khoi Lan [facility] 1.2.840.114 350.1.13.10 4.2.7.2.686 [id number] [facility] 2020-10-23 09:07:00 2020-10-23 09:44:00 Surgery Edyta Khoi Jamar [facility] 1.2.840.114 350.1.13.10 4.2.7.2.686 [id number] [facility] 2020-10-21 11:48:01 2020-10-21 12:03:01 Laboratory Only Only, Adc Test Edyta Khoi Jamar [facility] 1.2.840.114 350.1.13.10 4.2.7.2.686 [id number] [facility] 2020-10-21 11:45:00 2020-10-21 11:45:00 Outpatient R [facility] [id number] [facility] 2020-10-16 13:45:00 2020-10-16 13:45:00 Outpatient R KHOI LAN [facility] [id number] [facility] 2020-10-16 12:13:01 2020-10-16 12:28:01 Floor Technician Visit Pob, Adc Lab Main EdytaKhoi leonardo [facility] 1.2.840.114 350.1.13.10 4.2.7.2.686 [id number] [facility] 2020-10-16 00:00:00 2020-10-16 00:00:00 Orders Only Doctor Unassigned, [place] [facility] 1.2840.114 350.1.13.10 4.2.7.2.686 [id number] [facility] 2020-04-12 08:45:00 2020-04-12 08:45:00 Outpatient [facility] [id number] [facility] 2020-04-05 08:45:00 2020-04-05 08:45:00 Outpatient [facility] [id number] [facility] 2020-03-15 10:30:00 2020-03-15 10:30:00 Outpatient [facility] [id number] [facility] 2019-09-29 00:00:00 2019-09-29 00:00:00 Refill Zehra Israel [facility] 1.2.840.114 350.1.13.10 4.2.7.2.686 [id number] 2019-09-29 00:00:00 2019-09-29 00:00:00 Refill Zehra Israel [facility] 1.2.840.114 350.1.13.10 4.2.7.2.686 [id number] 231 [id number] [facility] 2019-09-08 00:00:00 2019-09-08 00:00:00 Refill Zehra Israel [facility] 1.2.840.114 350.1.13.10 4.2.7.2.686 [id number] [id number] 2019-09-08 00:00:00 2019-09-08 00:00:00 Refill Zehra Israel [facility] 1.2.840.114 350.1.13.10 4.2.7.2.686 [id number] [facility] 2019-08-16 00:00:00 2019-08-16 00:00:00 Orders Only Doctor Unassigned, [place] [facility] 1.2.840.114 350.1.13.10 4.2.7.2.686 [id number] 2019-08-16 00:00:00 2019-08-16 00:00:00 Orders Only Doctor Unassigned, [place] [facility] 1.2.840.114 350.1.13.10 4.2.7.2.686 [id number] [facility] 2019-08-10 12:12:21 2019-08-10 12:52:21 Office Visit Zehra Israel [facility] 1.2.840.114 350.1.13.10 4.2.7.2.686 [id number] 2019-08-10 12:12:21 2019-08-10 12:52:21 Office Visit Zehra Israel [facility] 1.2.840.114 350.1.13.10 4.2.7.2.686 [id number] [facility] 2019-08-10 12:20:00 2019-08-10 12:20:00 Outpatient R [facility] [id number] [facility] 2019-08-07 00:00:00 2019-08-07 00:00:00 Telephone Zehra Israel [facility] Building 1.2.840.114 350.1.13.10 4.2.7.2.686 [id number] [facility] 2019-07-20 00:00:00 2019-07-20 00:00:00 Telephone Zehra Israel [facility] B[facility] n[facility] Building 1.2.840.114 350.1.13.10 4.2.7.2.686 [id number] [facility] 2019-07-19 00:00:00 2019-07-19 00:00:00 Telephone Zehra Israel [facility] Jluis nal Building 1.2.840.114 350.1.13.10 4.2.7.2.686 [id number] [id number] [facility] 2019-07-16 00:00:00 2019-07-16 00:00:00 Refill Zehra Israel [facility] Bazzi nal Building 1.2.840.114 350.1.13.10 4.2.7.2.686 [id number] 231 [id number] [facility] 2019-05-02 00:00:00 2019-05-02 00:00:00 Refill Zehra Israel [facility] B[facility] Building 1.2.840.114 350.1.13.10 4.2.7.2.686 [id number] 231 [id number] [facility] 2019-04-24 00:00:00 2019-04-24 00:00:00 Telephone Zehra Israel [facility] 1.2.840.114 350.1.13.10 4.2.7.2.686 [id number] 231 [id number] [facility] 2019-04-20 09:35:10 2019-04-20 11:39:26 Office Visit Zehra [place] [facility] [id number] 350.1.13.10 [id number] [id number] [facility] 2019-04-20 09:40:00 2019-04-20 09:40:00 Outpatient R [facility] [id number] [facility] 2019-04-20 00:00:00 2019-04-20 00:00:00 Orders Only Doctor Unassigned, [place] [facility] [id number] 350.1.13.10 4.2.7.2.686 [id number] [facility] 2019-01-23 00:00:00 2019-01-23 00:00:00 Orders Only Doctor Unassigned, [place] 1.2.840.114 350.1.13.10 4.2.7.2.686 [id number] [facility] 2018-10-20 00:00:00 2018-10-20 00:00:00 Refill Zehra [place] [facility] 1.2840.114 350.1.13.10 4.2.7.2.686 [id number] [facility] 2018-10-19 00:00:00 2018-10-19 00:00:00 Telephone Zehra [place] [facility] [id number] 350.1.13.10 4.2.7.2.686 [id number] [facility] 2018-09-28 00:00:00 2018-09-28 00:00:00 Refill Zehra [place] [facility] [id number] 350.1.13.10 4.2.7.2.686 [id number] [facility] 2018-09-08 00:00:00 2018-09-08 00:00:00 Telephone Zehra [place] [facility] 1.2840.114 350.1.13.10 4.2.7.2.686 [id number] [facility] 2018-09-08 00:00:00 2018-09-08 00:00:00 Zehra Senior [facility] Laurent Bazzi [facility] [id number] 350.1.13.10 4.2.7.2.686 [id number] [facility] Results Test Description Test Time Test Comments Results Result Co mments Source HEMOGLOBIN [id number] 00:00:00* Test Item Value Reference Range Interpretation Comme nts HEMOGLOBIN A1c (test code = 4548-4) 7.7 % See_Comment H [Automated messa ge] The system which generated this result transmitted reference range: 4.2-5.6 %. The reference range was not used to interpret this result as normal/abnormal. LIPID PANEL WITH REFLEX DIRECT [id number] 00:00:00* Test Item Value Reference Range Interpretation Comme nts CALC LDL CHOL (test code = 94763-8) 36 MG/DL See_Comment [Automated messa ge] The system which generated this result transmitted reference range: <100 MG/DL. The reference range was not used to interpret this result as normal/abnormal. CHOLESTEROL (test code = 2093-3) 113 MG/DL See_Comment [Automated messa ge] The system which generated this result transmitted reference range: <200 MG/DL. The reference range was not used to interpret this result as normal/abnormal. HDL CHOLESTEROL (test code = 2085-9) 55 MG/DL See_Comment [Automated [employer]] The system which generated this result transmitted reference range: >39 MG/DL. The reference range was not used to interpret this result as normal/abnormal. RISK RATIO LDL/HDL (test code = 92255-8) 0.65 RATIO See_Comment [Automated message] The system which generated this result transmitted reference range: <3.22 RATIO. The reference range was not used to interpret this result as normal/abnormal. TRIGLYCERIDES (test code = 2571-8) 139 MG/DL See_Comment [Automated messa ge] The system which generated this result transmitted reference range: <150 MG/DL. The reference range was not used to interpret this result as normal/abnormal. TSH + FREE T4 [id number] 00:00:00* Test Item Value Reference Range Interpretation Comme nts FREE T4 (THYROXINE) (test code = 3024-7) 1.74 NG/DL See_Comment [Automated message] The system which generated this result transmitted reference range: 0.80-1.90 NG/DL. The reference range was not used to interpret this result as normal/abnormal. TSH, THIRD GENERATION (test code = 59173-9) 1.420 UIU/ML See_Comment [Automated [employer]] The system which generated this result transmitted reference range: 0.400-4.100 UIU/ML. The reference range was not used to interpret this result as normal/abnormal. ALBUMIN/CREATININE RATIO, RANDOM [id number] 00:00:00* Test Item Value Reference Range Interpretation Comme nts ALBUMIN, URINE, RANDOM (test code = 74663-2) 2.6 MG/DL NOT ESTAB MG/DL CALC ALBUMIN/CREAT, RND (test code = 19043-7) 42 MG/G See_Comment H [Automated messa ge] The system which generated this result transmitted reference range: <30 MG/G. The reference range was not used to interpret this result as normal/abnormal. CREATININE, URINE, CONC. (test code = 2161-8) 62.4 MG/DL NOT ESTAB MG/DL COMPREHENSIVE METABOLIC [id number] 00:00:00* Test Item Value Reference Range Interpretation Comme nts ALBUMIN (test code = 1751-7) 4.6 G/DL See_Comment [Automated [employer]] The system which generated this result transmitted reference range: 3.5-5.2 G/DL. The reference range was not used to interpret this result as normal/abnormal. ALKALINE PHOSPHATASE (test code = 6768-6) 60 U/L See_Comment [Automated message] The system which generated this result transmitted reference range: 40-142 U/L. The reference range was not used to interpret this result as normal/abnormal. BILIRUBIN, TOTAL (test code = 1975-2) 0.3 MG/DL See_Comment [Automated message] The system which generated this result transmitted reference range: <=1.2 MG/DL. The reference range was not used to interpret this result as normal/abnormal. BUN (test code = 3094-0) 20 MG/DL See_Comment [Automated messa ge] The system which generated this result transmitted reference range: 8-23 MG/DL. The reference range was not used to interpret this result as normal/abnormal. CALCIUM (test code = 65984-3) 10.3 MG/DL See_Comment [Automated messa ge] The system which generated this result transmitted reference range: 8.5-10.5 MG/DL. The reference range was not used to interpret this result as normal/abnormal. CALC A/G RATIO (test code = 1759-0) 1.6 RATIO See_Comment [Automated messa ge] The system which generated this result transmitted reference range: 1.0-2.6 RATIO. The reference range was not used to interpret this result as normal/abnormal. CALC BUN/CREAT (test code = 3097-3) 23 RATIO See_Comment [Automated messa ge] The system which generated this result transmitted reference range: 6-28 RATIO. The reference range was not used to interpret this result as normal/abnormal. CALC GLOBULIN (test code = 35840-4) 2.8 G/DL See_Comment [Automated messa ge] The system which generated this result transmitted reference range: 1.9-3.7 G/DL. The reference range was not used to interpret this result as normal/abnormal. CARBON DIOXIDE (test code = 1963-8) 23 MEQ/L See_Comment [Automated messa ge] The system which generated this result transmitted reference range: 19-31 MEQ/L. The reference range was not used to interpret this result as normal/abnormal. CHLORIDE (test code = 2075-0) 96 MEQ/L See_Comment [Automated messa ge] The system which generated this result transmitted reference range: 95-107 MEQ/L. The reference range was not used to interpret this result as normal/abnormal. CREATININE (test code = 2160-0) 0.88 MG/DL See_Comment [Automated messa ge] The system which generated this result transmitted reference range: 0.60-1.30 MG/DL. The reference range was not used to interpret this result as normal/abnormal. eGFR (2020 CKD-EPI) (test code = 01609-7) 67 ML/MIN/1.73 See_Comment [Automated messa ge] The system which generated this result transmitted reference range: >60 ML/MIN/1.73. The reference range was not used to interpret this result as normal/abnormal. GLUCOSE (test code = 1558-6) 88 MG/DL See_Comment [Automated messa ge] The system which generated this result transmitted reference range: 70-99 MG/DL. The reference range was not used to interpret this result as normal/abnormal. POTASSIUM (test code = 2823-3) 4.1 MEQ/L See_Comment [Automated messa ge] The system which generated this result transmitted reference range: 3.5-5.4 MEQ/L. The reference range was not used to interpret this result as normal/abnormal. PROTEIN, TOTAL (test code = 2885-2) 7.4 G/DL See_Comment [Automated messa ge] The system which generated this result transmitted reference range: 6.1-8.3 G/DL. The reference range was not used to interpret this result as normal/abnormal. AST (test code = 1920-8) 14 U/L See_Comment [Automated messa ge] The system which generated this result transmitted reference range: 9-40 U/L. The reference range was not used to interpret this result as normal/abnormal. ALT (test code = 1742-6) 10 U/L See_Comment [Automated messa ge] The system which generated this result transmitted reference range: 5-40 U/L. The reference range was not used to interpret this result as normal/abnormal. SODIUM (test code = 2951-2) 138 MEQ/L See_Comment [Automated messa ge] The system which generated this result transmitted reference range: 133-146 MEQ/L. The reference range was not used to interpret this result as normal/abnormal.
--- NOTE | 2023-06-03 17:32 | EDPHYS ---
Physician Documentation [facility] Name: Hortensia Bergman Age: 77 yrs Sex: Female : 1945 Arrival Date: 06/03/2023 Time: 16:57 Bed 2 Private MD: Saibno [facility] ED Physician Jas Gallo HPI: 06/02 17:03 This 77 yrs old Female presents to ER via Ambulatory with complaints of sp3 Problem With Urinary Catheter. 17:03 77-year-old female with history of diabetes, hyperlipidemia, hypertension and chronic sp3 indwelling Valdez due to bladder dysfunction now presents to the ED with decreased outflow and leaking around the catheter itself coupled with abdominal bladder fullness. This has happened to her before. This particular Valdez has been in for approximately 3 weeks. She denies any fever, upper abdominal pain, back pain, or any other signs or symptoms on ROS at this time.. Historical: - Allergies: 17:00 Codeine; ll1 17:00 Iodine; ll1 - PMHx: 17:00 abd hernia; diabetes mellitus; Hypercholesterolemia; Hypertensive disorder; ll1 - PSHx: 17:00 Appendectomy; Cholecystectomy; ll1 - Immunization history:: Adult Immunizations up to date. - Infectious Disease History:: Denies. - Social history:: Smoking status: Patient denies any tobacco usage or history of. ROS: 17:05 Constitutional: Negative for fever, chills, and weight loss, Eyes: Negative for injury, sp3 pain, redness, and discharge, Neck: Negative for injury, pain, and swelling, Cardiovascular: Negative for chest pain, palpitations, and edema, Respiratory: Negative for shortness of breath, cough, wheezing, and pleuritic chest pain, Back: Negative for injury and pain, MS/Extremity: Negative for injury and deformity, Skin: Negative for injury, rash, and discoloration, Neuro: Negative for headache, weakness, numbness, tingling, and seizure, 17:05 All other systems are negative, Exam: 17:05 Constitutional: This is a well developed, well nourished patient who is awake, alert, sp3 and in no acute distress. Head/Face: Normocephalic, atraumatic. Neck: Trachea midline, no thyromegaly or masses palpated, and no cervical lymphadenopathy. Supple, full range of motion without nuchal rigidity, or vertebral point tenderness. No Meningismus. Chest/axilla: Normal chest wall appearance and motion. Nontender with no deformity. No lesions are appreciated. Cardiovascular: Regular rate and rhythm with a normal S1 and S2. No gallops, murmurs, or rubs. Normal PMI, no JVD. No pulse deficits. Respiratory: Lungs have equal breath sounds bilaterally, clear to auscultation and percussion. No rales, rhonchi or wheezes noted. No increased work of breathing, no retractions or nasal flaring. Back: No spinal tenderness. No costovertebral tenderness. Full range of motion. Skin: Warm, dry with normal turgor. Normal color with no rashes, no lesions, and no evidence of cellulitis. 17:05 Abdomen/GI: Distended bladder noted. Abdomen otherwise benign., Vital Signs: 17:02 BP 161 / 65; Pulse 97; Resp 16; Temp 97.6; Pulse Ox 99% ; Weight 64.41 kg; Height 4 ft. ll1 11 in. ; Pain 9/10; 17:28 BP 155 / 69; Pulse 80; Resp 18; Pulse Ox 99% on R/A; rs5 17:02 Body Mass Index 28.68 (64.41 kg, 149.86 cm) ll1 17:02 Pain Scale: Adult ll1 MDM: 17:06 Data reviewed: vital signs, nurses notes. ED course: Likely bladder malfunction in the sp3 77-year-old female. We will swap out Valdez catheter and placed on Bactrim 3 days for prophylaxis. Discharge home as long as we get adequate urine output. Follow-up with established urology.. 17:06 Patient medically screened. sp3 06/02 17:03 Order name: Valdez: D/C old and place new; Complete Time: 17:24 sp3 Administered Medications: No medications were administered Disposition Summary: 06/03/23 17:31 Discharge Ordered Notes: Location: Home sp3 Condition: Stable sp3 Diagnosis - Valdez catheter malfunction, Valdez replacement sp3 Followup: sp3 - With: Private Physician - When: Upon discharge from the Emergency Department - Reason: Continuance of care Discharge Instructions: - Discharge Summary Sheet sp3 - Indwelling Urinary Catheter Insertion, Care After sp3 Forms: - Medication Reconciliation Form sp3 - Thank You Letter sp3 - Antibiotic Education sp3 - Prescription Opioid Use sp3 - Patient Portal Instructions sp3 - Leadership Thank You Letter sp3 Prescriptions: - Bactrim DS 800-160 mg Oral Tablet - take 1 tablet ORAL route every 12 hours for 3 days; 6 tablet; Refills: 0, sp3 Product Selection Permitted Signatures: Juana Gutierrez RN RN ll1 Jas Gallo MD MD sp3 Ayaz Degroot RN RN rs5
--- NOTE | 2023-06-03 17:32 | ER ---
Nurse's Notes [facility] Name: Hortensia Bergman Age: 77 yrs Sex: Female : 1945 Arrival Date: 06/03/2023 Time: 16:57 Bed 2 Private MD: Roland Gallo Diagnosis: Valdez catheter malfunction, Valdez replacement Presentation: 06/02 17:02 Chief complaint: Patient states: Leaking from catheter site, started today. Coronavirus ll1 screen: Client denies travel out of the [place] in the last 14 days. At this time, the client does not indicate any symptoms associated with coronavirus-19. Ebola Screen: Patient denies travel to an Ebola-affected area in the 21 days before illness onset. Initial Sepsis Screen: Does the patient meet any 2 criteria? No. Patient's initial sepsis screen is negative. Does the patient have a suspected source of infection? No. Patient's initial sepsis screen is negative. Risk Assessment: Do you want to hurt yourself or someone else? Patient reports no desire to harm self or others. Onset of symptoms was June 03, 2023. 17:02 Method Of Arrival: Ambulatory ll1 17:02 Acuity: SPARKLE 4 ll1 Historical: - Allergies: 17:00 Codeine; ll1 17:00 Iodine; ll1 - PMHx: 17:00 abd hernia; diabetes mellitus; Hypercholesterolemia; Hypertensive disorder; ll1 - PSHx: 17:00 Appendectomy; Cholecystectomy; ll1 - Immunization history:: Adult Immunizations up to date. - Infectious Disease History:: Denies. - Social history:: Smoking status: Patient denies any tobacco usage or history of. Screenin:00 [facility] ED Fall Risk Assessment (Adult) History of falling in the last 3 months, rs5 including since admission No falls in past 3 months (0 pts) Confusion or Disorientation No (0 pts) Intoxicated or Sedated No (0 pts) Impaired Gait No (0 pts) Mobility Assist Device Used No (0 pt) Altered Elimination No (0 pt) Score/Fall Risk Level 0 - 2 = Low Risk Oriented to surroundings, Maintained a safe environment. 17:00 Abuse screen: Denies threats or abuse. Nutritional screening: No deficits noted. rs5 Tuberculosis screening: No symptoms or risk factors identified. Assessment: 17:02 General: Appears in no apparent distress. uncomfortable, Behavior is calm, cooperative. rs5 Pain: Complains of pain in pelvis Pain currently is 8 out of 10 on a pain scale. Quality of pain is described as aching, Is continuous. Neuro: Level of Consciousness is awake, alert, obeys commands, Oriented to person, place, time, situation. Cardiovascular: Patient's skin is warm and dry. Rhythm is regular. Respiratory: Airway is patent Respiratory effort is even, unlabored, Respiratory pattern is regular, symmetrical. GI: Abdomen is round non-distended, Abd is soft and non tender X 4 quads. : 3-way catheter in place Valdez in place to gravity drainage Reports inability to void, pt states "when I pee the urine goes around the catheter". 17:02 EENT: No signs and/or symptoms were reported regarding the EENT system. Derm: Skin is rs5 intact, Skin is pink, warm \\T\\ dry. Musculoskeletal: Range of motion: intact in all extremities. 17:28 Reassessment: Patient and/or family updated on plan of care and expected duration. Pain rs5 level reassessed. Patient is alert, oriented x 3, equal unlabored respirations, skin warm/dry/pink. Patient states feeling better. Patient states symptoms have improved. Vital Signs: 17:02 BP 161 / 65; Pulse 97; Resp 16; Temp 97.6; Pulse Ox 99% ; Weight 64.41 kg; Height 4 ft. ll1 11 in. ; Pain 9/10; 17:28 BP 155 / 69; Pulse 80; Resp 18; Pulse Ox 99% on R/A; rs5 17:02 Body Mass Index 28.68 (64.41 kg, 149.86 cm) ll1 17:02 Pain Scale: Adult ll1 ED Course: 16:58 Patient arrived in ED. rg4 16:58 Roland Gallo DO is Private Physician. rg4 17:00 Arm band placed on. ll1 17:00 Patient has correct armband on for positive identification. Placed in gown. Bed in low rs5 position. Call light in reach. Side rails up X2. 17:00 No provider procedures requiring assistance completed. rs5 17:02 Jas Gallo MD is Attending Physician. sp3 17:03 Triage completed. ll1 17:08 Degroot, Ayaz, RN is Primary Nurse. rs5 17:24 Valdez cath inserted, using sterile technique, 16 Fr., by la, balloon inflated, Patient jg11 tolerated well. Administered Medications: No medications were administered Medication: 17:25 VIS not applicable for this client. rs5 Outcome: 17:31 Discharge ordered by . sp3 17:56 Patient left the ED. rs5 Signatures: Marium Cota rg4 Juana Gutierrez RN RN ll1 Jas Gallo MD MD sp3 Ayaz Degroot, LUDY RN rs5 Wesley Gonsalez jg11 Corrections: (The following items were deleted from the chart) 17:03 17:02 Pulse 97bpm; Resp 16bpm; Pulse Ox 99%; Temp 97.6F; 64.41 kg; Height 4 ft. 11 in.; ll1 BMI: 28.6; Pain 9/10, Adult; ll1
[2023-06-03 18:22] VITALS: BP 155/69; TEMP 97.6; O2SAT 99
== END 2023-06-03 17:56 | disposition home or self-care (01) ==
LOC: ER 16:57
DX: T83.091A Other mechanical complication of indwelling urethral catheter, initial encounter (principal); Z88.5 Allergy status to narcotic agent; Z91.048 Other nonmedicinal substance allergy status
CPT/HCPCS: 51702; 99283

== ENCOUNTER 2023-08-08 23:43 | Emergency (ER) | payer OTHER ==
--- OUTSIDE RECORDS SUMMARY | 2023-08-08 23:52 | XMS REPORT | Continuity of Care Document ---
Author Name Unknown Address [address] [place] [address] [facility] Address [address] [place] [address] Care Team Providers Care Binder Roller Name Role Phone Roland Gallo Primary Care Physician [phone] Roland Gallo Attending Clinician Unavailable KHOI LAN Attending Clinician UnaTOPHER Lozada Attending Clinician Unavailara Peña, Cl[facility] Attending Clinician UnavailTopher Cardenas MD Attending Clinician [phone] Alpa Godfrey MD Attending Clinician [phone] ALPA GODFREY Attending Clinician Unavailable Doctor Unassigned, [place] Attending Clinician U navailable Unknown, Attending Attending Clinician Unavailab favian Peña, Bls Urogyn Attending Clinician UnavailEstrella Hernandes Attending Clinician [phone] ESTRELLA SMITH Attending Clinician UnavailJAMAR Woods Attending Clinician Unavailable Faustino Ralph MD Attending Clinician FAUSTINO RALPH Attending Clinician Molly talat DUNNE Attending Clinician Unavailable Jamar Lemus MD Attending Clinician [phone] Nurse, [facility] Surgery Gu Attending Clinician Jefferson Boone OFFSHORE WIND OPERATIONS MANAGERKarolina Attending Clinician [phone] KAROLINA BOONE Attending Clinician Unavailable Khoi aLn MD Attending Clinician [phone] Only, [facility] Attending Clinician Unavailable Zehra Israel MD Attending Clinician [phone] Pob, [facility] Main Attending Clinician ZEHRA Hogan Attending Clinician KHOI Moffett Admitting Clinician Jefferson arroyo TREMAYNENAE Admitting Clinician Unavailable Khoi Lan MD Admitting Clinician [phone] Payers Payer Name Policy Type Policy Number Effective Date Expirati on Date Source [facility] [employer] BLANDON [id number] 2020 00:00:00 MEDICARE PART A \\T\\ B [id number] 2000 00:00:00 [place] [id number] [facility] C1 [id number] [facility] Problems Condition Name Condition Details Condition Category Status Onset Date Resolution Date Last Treatment Date Treating Clinician Comments Source 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 compressio n Disease Active 04-21 00:00: 00 [facility] Spinal stenosis of lumbar region without neurogenic claudicati on Spinal stenosis of lumbar region without neurogenic claudicati on Disease Active 04-21 00:00: 00 [facility] Decreased activities of daily living (ADL) Decreased activities of daily living (ADL) Disease Active 04-21 00:00: 00 [facility] 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 Disease Active 04-21 00:00: 00 [facility] Vitamin B1 deficiency Vitamin B1 deficiency Disease Active 202004-21 00:00: 00 [facility] B12 deficiency B12 deficiency Disease Active 04-21 00:00: 00 [facility] Pyridoxine deficiency Pyridoxine deficiency Disease Active 04-21 00:00: 00 [facility] Vitamin D deficiency Vitamin D deficiency Disease Active 04-21 00:00: 00 [facility] Glaucoma suspect of both eyes Glaucoma suspect of both eyes Disease Active 04-17 00:00: 00 [facility] 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 ICD10 Diagnosis Term [employer] [facility] Type 2 diabetes mellitus without complicati on, with long-term current use of insulin Type 2 diabetes mellitus without complicati on, with long-term current use of insulin Disease Active 08-25 00:00: 00 Overview: Formattin g of this note might be different from the original. ICD10 Diagnosis Term [employer] [facility] Essential hypertensi on, benign Essential hypertensi on, benign Disease Active 08-25 00:00: 00 [facility] HLD (hyperlipi demia) HLD (hyperlipi demia) Disease Active 08-25 00:00: 00 Overview: Formattin g of this note might be different from the original. ICD10 Diagnosis Term [employer] [facility] Generalize d osteoarthr osis, unspecifie d site Generalize d osteoarthr osis, unspecifie d site Disease Active 08-25 00:00: 00 [facility] [id number] Hypoglycem ia due to type 2 diabetes mellitus Problem [facility] [id number] Iron deficiency anemia, unspecifie d iron deficiency anemia type Problem [facility] [id number] Urinary incontinen ce, unspecifie d type Problem [facility] Echocardio gram abnormal Abnormal echocardio gram Problem Common [facility] [id number] Urinary catheter in place Problem [facility] [id number] Body mass index [BMI] 32.0-32.9, adult Problem [facility] [id number] Diabetic polyneurop athy associated with type 2 diabetes mellitus Problem [facility] [id number] Essential (primary) hypertensi on Problem [facility] [id number] Hypothyroi dism (acquired) Problem [facility] [id number] 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 Problem [facility] [id number] Other obesity due to excess calories Problem [facility] [id number] Type 2 diabetes mellitus with hyperglyce alyssa Problem [facility] [id number] Mixed hyperlipid emia Problem [facility] Allergies, Adverse Reactions, Alerts Allergy Name Allergy Type Status Severity Reaction(s) Onset Date Inactive Date Treating Clinician Comments Source Iodine Propensi ty to adverse reaction s Active Hives 2005-02 00:00: 00 [facility] IODINE DRUG INGREDI Active Hives 2005-02 00:00: 00 [facility] Codeine Propensi ty to adverse reaction s Active Rash 08-25 00:00: 00 [facility] CODEINE DRUG INGREDI Active Rash 08-25 00:00: 00 [facility] codeine codeine Active hives [facility] 463 Drug allergy Active hives [facility] Social History Social Habit Start Date Stop Date Quantity Comments Source Sex Assigned At [facility] History of Tobacco Use [facility] Gender identity [facility] Sexual orientation U [facility] Alcoholic beverage intake 2023-07-20 00:00:00 2023-07-20 00:00:00 Current non-drinker of alcohol (finding) [facility] Alcohol intake 2023-05-18 00:00:00 2023-05-18 00:00:00 Current non-drinker of alcohol (finding) [facility] Exposure to SARS-CoV-2 (event) 2022-06-13 00:00:00 2022-06-23 12:16:00 Not sure [facility] History of Social function 2021-06-04 00:00:00 2021-06-04 00:00:00 [facility] Smoking Status Start Date Stop Date Source Never smoked tobacco [facility] Medications Ordered Medication Name Filled Medication Name Start Date Stop Date Current Medication? Ordering Clinician Indication Dosage Frequency Signature (SIG) Comments Components Source Lantus 100 UNIT/ML Lantus 100 UNIT/ML 1-25 00:00: 00 No Lantus 100 UNIT/ML fluconazole 150 mg tablet 08-25 00:00: 00 08-26 04:59 :00 No [id number] 150mg Take 1 tablet by mouth once now for 1 dose. Repeat dosage in 72 hours if symptoms persist. [facility] Nitrofurant oin&Nit. Macrocryst (MACROBID) 100 mg capsule 08-11 00:00: 00 08-17 04:59 :00 No 100mg Take 1 capsule by mouth in the morning and 1 capsule in the evening. Do all this for 5 days. [facility] Cyanocobala min Cyanocobala min -17 00:00: 00 No 1000ug [facility] Zinc Zinc 3-08 00:00: 00 No Zinc sulfamethox azole-trime thoprim (BACTRIM DS) 800-160 mg per tablet 2021-02 0-04 00:00: 00 11-23 04:59 :00 No [id number] 1{tbl} Take 1 tablet by mouth in the morning and 1 tablet in the evening. Do all this for 5 days. [facility] tamsulosin 0.4 mg 24 hr capsule 06-04 00:00: 00 Yes [id number] .4mg Take 1 capsule by mouth daily. [facility] furosemide 20 mg tablet -15 00:00: 00 Yes 20mg Take 1 tablet by mouth in the morning. [facility] BD VEO INSULIN SYR, HALF UNIT, 0.3 mL 31 gauge x 15/64" Syrg 2020-02 004 00:00: 00 Yes [id number] USE DIRECTED 4 TIMES DAILY [facility] PREGABALIN 300 mg capsule 6 00:00: 00 Yes [id number] Take 1 capsule by mouth twice daily [facility] blood sugar diagnostic strip 04-19 00:00: 00 Yes [id number] Check sugars 2-3 times a day. Dx Code E11.9. AccuChek guide me brand. [facility] blood sugar diagnostic strip 04-19 00:00: 00 Yes [id number] Check sugars 2-3 times a day. Dx Code E11.9. AccuChek guide me brand. [facility] losartan 100 mg tablet 2018-02 00:00: 00 Yes [id number] 100mg Take 1 tablet by mouth daily. For blood pressure [facility] insulin glargine (LANTUS U-100 INSULIN) 100 unit/mL injection 2018-02 00:00: 00 Yes [id number] 30U inject 30 Units under the skin at bedtime. [facility] hydroCHLORO thiazide 50 mg tablet 2018-02 00:00: 00 Yes [id number] 50mg Take 1 tablet by mouth daily. For blood pressure. [facility] atorvastati n (LIPITOR) 20 mg tablet 2018-02 00:00: 00 Yes [id number] 20mg Take 1 tablet by mouth at bedtime. For cholestero l [facility] insulin regular human (HUMULIN R REGULAR U-100 INSULN) 100 unit/mL injection 2018-02 014 00:00: 00 Yes [id number] 5U inject 5 Units under the skin 3 (three) times daily before meals. [facility] meloxicam 15 mg tablet 10-23 00:00: 00 Yes [id number] 15mg Take 1 tablet by mouth daily. [facility] cholecalcif tamika, vitamin D3, 1,000 unit tablet 08-21 00:00: 00 Yes [id number] Unsure of dose. [facility] vitamin B-12 1,000 mcg tablet 08-21 00:00: 00 Yes [id number] 5000ug Take 5 tablets by mouth daily. [facility] vitamin B-1 (VITAMIN B-1) 50 mg tablet 08-21 00:00: 00 Yes [id number] 50mg Take 1 tablet by mouth daily. [facility] turmeric root extract 500 mg Cap 05-25 00:00: 00 Yes [id number] 1{tbl} Take 1 tablet by mouth daily. [facility] turmeric root extract 500 mg Cap 05-25 00:00: 00 Yes [id number] 1{tbl} Take 1 tablet by mouth daily. [facility] Insulin Syringes, Disposable, 1 mL Syrg 03-07 00:00: 00 Yes Check Fingerstic k blood glucose qid. Please dispense the relion syringes. RX#[id number] ICD-E11.9 [facility] Insulin Syringes, Disposable, 1 mL Syrg 03-07 00:00: 00 Yes Check Fingerstic k blood glucose qid. Please dispense the relion syringes. RX#[id number] ICD-E11.9 [facility] Lancets & Blood Glucose Strips (ONE TOUCH COMBO) [facility] 09-25 00:00: 00 Yes [id number] [facility] Lancets & Blood Glucose Strips (ONE TOUCH COMBO) [facility] 09-25 00:00: 00 Yes [id number] [facility] Cushion (CERVICAL PILLOW/COVE R) [facility] 2011-02 00:00: 00 Yes [id number] [facility] Cushion (CERVICAL PILLOW/COVE R) [facility] 2011-02 00:00: 00 Yes [id number] [facility] metFORMIN HCl 1000 MG metFORMIN HCl 1000 MG No 1{table t_with_ meals} BID metFORMIN HCl 1000 MG Levothyroxi ne Sodium 125 MCG Levothyroxi ne Sodium 125 MCG No Levothyrox ine Sodium 125 MCG Furosemide 20 MG Furosemide 20 MG No 1{table t} QD Furosemide 20 MG BD Veo Insulin Syringe U/F 31G X 15/64" 0.3 ML BD Veo Insulin Syringe U/F 31G X 1564" 0.3 ML No BD Veo Insulin Syringe U/F 31G X 1564" 0.3 ML Estradiol 0.1 MG/GM Estradiol 0.1 [...] MG No 1{table t_in_th e_morni ng} QD hydroCHLOR Othiazide 50 MG Folic Acid 1 MG Folic Acid 1 MG No 1{table t} QD Folic Acid 1 MG OneTouch Ultra - OneTouch Ultra - No OneTouch Ultra - Immunizations Ordered Immunization Name Filled Immunization Name Date Status Comments Source FluAD FluAD 2020-12-14 08:30:00 Completed [facility] Flu Flu 2020-12-14 08:30:00 Completed [facility] Flu Flu 2020-12-14 08:30:00 Completed [facility] Flu Flu 2020-12-14 08:30:00 Completed [facility] Flu Flu 2020-12-14 08:30:00 Completed [facility] Flu Flu 2020-12-14 08:30:00 Completed [facility] Flu Flu 2020-12-14 08:30:00 Completed [facility] Flu Flu 2020-12-14 08:30:00 Completed [facility] Flu Flu 2020-12-14 08:30:00 Completed [facility] Flu Flu 2020-12-14 08:30:00 Completed [facility] Flu Flu 2020-12-14 08:30:00 Completed [facility] FluAD FluAD 2020-12-14 08:30:00 Completed [facility] FluAD FluAD 2020-12-14 08:30:00 Completed [facility] FluAD FluAD 2020-12-14 08:30:00 Completed [facility] FluAD FluAD 2020-12-14 08:30:00 Completed [facility] FluAD FluAD 2020-12-14 08:30:00 Completed [facility] FluAD FluAD 2020-12-14 08:30:00 Completed [facility] FluAD FluAD 2020-12-14 08:30:00 Completed [facility] FluAD FluAD 2020-12-14 08:30:00 Completed [facility] FluAD FluAD 2020-12-14 08:30:00 Completed [facility] FluAD FluAD 2020-12-14 08:30:00 Completed [facility] FluAD FluAD 2020-12-14 08:30:00 Completed [facility] FluAD FluAD 2020-12-14 08:30:00 Completed [facility] SARS-COV-2 COVID-19 PFIZER VACCINE 2020-04-12 00:00:00 Completed [facility] SARS-COV-2 COVID-19 PFIZER VACCINE 2020-04-12 00:00:00 Completed [facility] SARS-COV-2 COVID-19 PFIZER VACCINE 2020-04-12 00:00:00 Completed [facility] SARS-COV-2 COVID-19 PFIZER VACCINE 2020-04-12 00:00:00 Completed [facility] SARS-COV-2 COVID-19 PFIZER VACCINE 2020-04-12 00:00:00 Completed [facility] SARS-COV-2 COVID-19 PFIZER VACCINE 2020-04-12 00:00:00 Completed [facility] SARS-COV-2 COVID-19 PFIZER VACCINE 2020-04-12 00:00:00 Completed [facility] SARS-COV-2 COVID-19 PFIZER VACCINE 2020-04-12 00:00:00 Completed [facility] SARS-COV-2 COVID-19 PFIZER VACCINE 2020-04-12 00:00:00 Completed [facility] SARS-COV-2 COVID-19 PFIZER VACCINE 2020-04-12 00:00:00 Completed [facility] SARS-COV-2 COVID-19 PFIZER VACCINE 2020-04-12 00:00:00 Completed [facility] SARS-COV-2 COVID-19 PFIZER VACCINE 2020-04-12 00:00:00 Completed [facility] SARS-COV-2 COVID-19 PFIZER VACCINE 2020-04-12 00:00:00 Completed [facility] SARS-COV-2 COVID-19 PFIZER VACCINE 2020-04-12 00:00:00 Completed [facility] SARS-COV-2 COVID-19 PFIZER VACCINE 2020-04-12 00:00:00 Completed [facility] SARS-COV-2 COVID-19 PFIZER VACCINE 2020-04-12 00:00:00 Completed [facility] SARS-COV-2 COVID-19 PFIZER VACCINE 2020-04-12 00:00:00 Completed [facility] SARS-COV-2 COVID-19 PFIZER VACCINE 2020-04-12 00:00:00 Completed [facility] SARS-COV-2 COVID-19 PFIZER VACCINE 2020-04-12 00:00:00 Completed [facility] SARS-COV-2 COVID-19 PFIZER VACCINE 2020-04-12 00:00:00 Completed [facility] SARS-COV-2 COVID-19 PFIZER VACCINE 2020-04-12 00:00:00 Completed [facility] SARS-COV-2 COVID-19 PFIZER VACCINE 2020-04-12 00:00:00 Completed [facility] SARS-COV-2 COVID-19 PFIZER VACCINE 2020-04-12 00:00:00 Completed [facility] SARS-COV-2 COVID-19 PFIZER VACCINE 2020-04-12 00:00:00 Completed [facility] SARS-COV-2 COVID-19 PFIZER VACCINE 2020-04-12 00:00:00 Completed [facility] SARS-COV-2 COVID-19 PFIZER VACCINE 2020-04-12 00:00:00 Completed [facility] SARS-COV-2 COVID-19 PFIZER VACCINE 2020-04-12 00:00:00 Completed [facility] SARS-COV-2 COVID-19 PFIZER VACCINE 2020-04-12 00:00:00 Completed [facility] SARS-COV-2 COVID-19 PFIZER VACCINE 2020-04-12 00:00:00 Completed [facility] SARS-COV-2 COVID-19 PFIZER VACCINE 2020-04-12 00:00:00 Completed [facility] SARS-COV-2 COVID-19 PFIZER VACCINE 2020-04-12 00:00:00 Completed [facility] SARS-COV-2 COVID-19 PFIZER VACCINE 2020-03-15 00:00:00 Completed [facility] SARS-COV-2 COVID-19 PFIZER VACCINE 2020-03-15 00:00:00 Completed [facility] SARS-COV-2 COVID-19 PFIZER VACCINE 2020-03-15 00:00:00 Completed [facility] SARS-COV-2 COVID-19 PFIZER VACCINE 2020-03-15 00:00:00 Completed [facility] SARS-COV-2 COVID-19 PFIZER VACCINE 2020-03-15 00:00:00 Completed [facility] SARS-COV-2 COVID-19 PFIZER VACCINE 2020-03-15 00:00:00 Completed [facility] SARS-COV-2 COVID-19 PFIZER VACCINE 2020-03-15 00:00:00 Completed [facility] SARS-COV-2 COVID-19 PFIZER VACCINE 2020-03-15 00:00:00 Completed [facility] SARS-COV-2 COVID-19 PFIZER VACCINE 2020-03-15 00:00:00 Completed [facility] SARS-COV-2 COVID-19 PFIZER VACCINE 2020-03-15 00:00:00 Completed [facility] SARS-COV-2 COVID-19 PFIZER VACCINE 2020-03-15 00:00:00 Completed [facility] SARS-COV-2 COVID-19 PFIZER VACCINE 2020-03-15 00:00:00 Completed [facility] SARS-COV-2 COVID-19 PFIZER VACCINE 2020-03-15 00:00:00 Completed [facility] SARS-COV-2 COVID-19 PFIZER VACCINE 2020-03-15 00:00:00 Completed [facility] SARS-COV-2 COVID-19 PFIZER VACCINE 2020-03-15 00:00:00 Completed [facility] SARS-COV-2 COVID-19 PFIZER VACCINE 2020-03-15 00:00:00 Completed [facility] SARS-COV-2 COVID-19 PFIZER VACCINE 2020-03-15 00:00:00 Completed [facility] SARS-COV-2 COVID-19 PFIZER VACCINE 2020-03-15 00:00:00 Completed [facility] SARS-COV-2 COVID-19 PFIZER VACCINE 2020-03-15 00:00:00 Completed [facility] SARS-COV-2 COVID-19 PFIZER VACCINE 2020-03-15 00:00:00 Completed [facility] SARS-COV-2 COVID-19 PFIZER VACCINE 2020-03-15 00:00:00 Completed [facility] SARS-COV-2 COVID-19 PFIZER VACCINE 2020-03-15 00:00:00 Completed [facility] SARS-COV-2 COVID-19 PFIZER VACCINE 2020-03-15 00:00:00 Completed [facility] SARS-COV-2 COVID-19 PFIZER VACCINE 2020-03-15 00:00:00 Completed [facility] SARS-COV-2 COVID-19 PFIZER VACCINE 2020-03-15 00:00:00 Completed [facility] SARS-COV-2 COVID-19 PFIZER VACCINE 2020-03-15 00:00:00 Completed [facility] SARS-COV-2 COVID-19 PFIZER VACCINE 2020-03-15 00:00:00 Completed [facility] SARS-COV-2 COVID-19 PFIZER VACCINE 2020-03-15 00:00:00 Completed [facility] SARS-COV-2 COVID-19 PFIZER VACCINE 2020-03-15 00:00:00 Completed [facility] SARS-COV-2 COVID-19 PFIZER VACCINE 2020-03-15 00:00:00 Completed [facility] SARS-COV-2 COVID-19 PFIZER VACCINE 2020-03-15 00:00:00 Completed [facility] Zoster Vaccine Recombinant 2018-11-13 00:00:00 Completed [facility] Zoster Vaccine Recombinant 2018-11-13 00:00:00 Completed [facility] Zoster Vaccine Recombinant 2018-11-13 00:00:00 Completed [facility] Zoster Vaccine Recombinant 2018-11-13 00:00:00 Completed [facility] Zoster Vaccine Recombinant 2018-11-13 00:00:00 Completed [facility] Zoster Vaccine Recombinant 2018-11-13 00:00:00 Completed [facility] Zoster Vaccine Recombinant 2018-11-13 00:00:00 Completed [facility] Zoster Vaccine Recombinant 2018-11-13 00:00:00 Completed [facility] Zoster Vaccine Recombinant 2018-11-13 00:00:00 Completed [facility] Zoster Vaccine Recombinant 2018-11-13 00:00:00 [facility]pleted [facility] [facility] Zoster Vaccine Recombinant 2018-11-13 00:00:00 Completed [facility] Zoster Vaccine Recombinant 2018-11-13 00:00:00 Completed [facility] Zoster Vaccine Recombinant 2018-11-13 00:00:00 Completed [facility] Zoster Vaccine Recombinant 2018-11-13 00:00:00 Completed [facility] Zoster Vaccine Recombinant 2018-11-13 00:00:00 Completed [facility] Zoster Vaccine Recombinant 2018-11-13 00:00:00 Completed [facility] Zoster Vaccine Recombinant 2018-11-13 00:00:00 Completed [facility] Zoster Vaccine Recombinant 2018-11-13 00:00:00 Completed [facility] Zoster Vaccine Recombinant 2018-11-13 00:00:00 Completed [facility] Zoster Vaccine Recombinant 2018-11-13 00:00:00 Completed [facility] Zoster Vaccine Recombinant 2018-11-13 00:00:00 Completed [facility] Zoster Vaccine Recombinant 2018-11-13 00:00:00 Completed [facility] Zoster Vaccine Recombinant 2018-11-13 00:00:00 Completed [facility] Zoster Vaccine Recombinant 2018-11-13 00:00:00 Completed [facility] Zoster Vaccine Recombinant 2018-11-13 00:00:00 Completed [facility] Zoster Vaccine Recombinant 2018-11-13 00:00:00 Completed [facility] Zoster Vaccine Recombinant 2018-11-13 00:00:00 Completed [facility] Zoster Vaccine Recombinant 2018-11-13 00:00:00 Completed [facility] Zoster Vaccine Recombinant 2018-11-13 00:00:00 Completed [facility] Zoster Vaccine Recombinant 2018-11-13 00:00:00 Completed [facility] Zoster Vaccine Recombinant 2018-11-13 00:00:00 Completed [facility] Influenza Virus Vaccine 2018-11-10 00:00:00 Completed [facility] Influenza Virus Vaccine 2018-11-10 00:00:00 Completed [facility] Influenza Virus Vaccine 2018-11-10 00:00:00 Completed [facility] Influenza Virus Vaccine 2018-11-10 00:00:00 Completed [facility] Influenza Virus Vaccine 2018-11-10 00:00:00 Completed [facility] Influenza Virus Vaccine 2018-11-10 00:00:00 Completed [facility] Influenza Virus Vaccine 2018-11-10 00:00:00 Completed [facility] Influenza Virus Vaccine 2018-11-10 00:00:00 Completed [facility] Influenza Virus Vaccine 2018-11-10 00:00:00 Completed [facility] Influenza Virus Vaccine 2018-11-10 00:00:00 Completed [facility] Influenza Virus Vaccine 2018-11-10 00:00:00 Completed [facility] Influenza Virus Vaccine 2018-11-10 00:00:00 Completed [facility] Influenza Virus Vaccine 2018-11-10 00:00:00 Completed [facility] Influenza Virus Vaccine 2018-11-10 00:00:00 Completed [facility] Influenza Virus Vaccine 2018-11-10 00:00:00 Completed [facility] Influenza Virus Vaccine 2018-11-10 00:00:00 Completed [facility] Influenza Virus Vaccine 2018-11-10 00:00:00 Completed [facility] Influenza Virus Vaccine 2018-11-10 00:00:00 Completed [facility] Influenza Virus Vaccine 2018-11-10 00:00:00 Completed [facility] Influenza Virus Vaccine 2018-11-10 00:00:00 Completed [facility] Influenza Virus Vaccine 2018-11-10 00:00:00 Completed [facility] Influenza Virus Vaccine 2018-11-10 00:00:00 Completed [facility] Influenza Virus Vaccine 2018-11-10 00:00:00 Completed [facility] Influenza Virus Vaccine 2018-11-10 00:00:00 Completed [facility] Influenza Virus Vaccine 2018-11-10 00:00:00 Completed [facility] Influenza Virus Vaccine 2018-11-10 00:00:00 Completed [facility] Influenza Virus Vaccine 2018-11-10 00:00:00 Completed [facility] Influenza Virus Vaccine 2018-11-10 00:00:00 Completed [facility] Influenza Virus Vaccine 2018-11-10 00:00:00 Completed [facility] Influenza Virus Vaccine 2018-11-10 00:00:00 Completed [facility] Influenza Virus Vaccine 2018-11-10 00:00:00 Completed [facility] Zoster Vaccine Recombinant 2018-09-12 00:00:00 Completed [facility] Zoster Vaccine Recombinant 2018-09-12 00:00:00 Completed [facility] Zoster Vaccine Recombinant 2018-09-12 00:00:00 Completed [facility] Zoster Vaccine Recombinant 2018-09-12 00:00:00 Completed [facility] Zoster Vaccine Recombinant 2018-09-12 00:00:00 Completed [facility] Zoster Vaccine Recombinant 2018-09-12 00:00:00 Completed [facility] Zoster Vaccine Recombinant 2018-09-12 00:00:00 Completed [facility] Zoster Vaccine Recombinant 2018-09-12 00:00:00 Completed [facility] Zoster Vaccine Recombinant 2018-09-12 00:00:00 Completed [facility] Zoster Vaccine Recombinant 2018-09-12 00:00:00 Completed [facility] Zoster Vaccine Recombinant 2018-09-12 00:00:00 Completed [facility] Zoster Vaccine Recombinant 2018-09-12 00:00:00 Completed [facility] Zoster Vaccine Recombinant 2018-09-12 00:00:00 Completed [facility] Zoster Vaccine Recombinant 2018-09-12 00:00:00 Completed [facility] Zoster Vaccine Recombinant 2018-09-12 00:00:00 Completed [facility] Zoster Vaccine Recombinant 2018-09-12 00:00:00 Completed [facility] Zoster Vaccine Recombinant 2018-09-12 00:00:00 Completed [facility] Zoster Vaccine Recombinant 2018-09-12 00:00:00 Completed [facility] Zoster Vaccine Recombinant 2018-09-12 00:00:00 Completed [facility] Zoster Vaccine Recombinant 2018-09-12 00:00:00 Completed [facility] Zoster Vaccine Recombinant 2018-09-12 00:00:00 Completed [facility] Zoster Vaccine Recombinant 2018-09-12 00:00:00 Completed [facility] Zoster Vaccine Recombinant 2018-09-12 00:00:00 Completed [facility] Zoster Vaccine Recombinant 2018-09-12 00:00:00 Completed [facility] Zoster Vaccine Recombinant 2018-09-12 00:00:00 Completed [facility] Zoster Vaccine Recombinant 2018-09-12 00:00:00 Completed [facility] Zoster Vaccine Recombinant 2018-09-12 00:00:00 Completed [facility] Zoster Vaccine Recombinant 2018-09-12 00:00:00 Completed [facility] Zoster Vaccine Recombinant 2018-09-12 00:00:00 Completed [facility] Zoster Vaccine Recombinant 2018-09-12 00:00:00 Completed [facility] Zoster Vaccine Recombinant 2018-09-12 00:00:00 Completed [facility] Influenza Virus Vaccine - Whole 2017-10-28 00:00:00 Completed [facility] Influenza Virus Vaccine - Whole 2017-10-28 00:00:00 Completed [facility] Influenza Virus Vaccine - Whole 2017-10-28 00:00:00 Completed [facility] Influenza Virus Vaccine - Whole 2017-10-28 00:00:00 Completed [facility] Influenza Virus Vaccine - Whole 2017-10-28 00:00:00 Completed [facility] Influenza Virus Vaccine - Whole 2017-10-28 00:00:00 Completed [facility] Influenza Virus Vaccine - Whole 2017-10-28 00:00:00 Completed [facility] Influenza Virus Vaccine - Whole 2017-10-28 00:00:00 Completed [facility] Influenza Virus Vaccine - Whole 2017-10-28 00:00:00 Completed [facility] Influenza Virus Vaccine - Whole 2017-10-28 00:00:00 Completed [facility] Influenza Virus Vaccine - Whole 2017-10-28 00:00:00 Completed [facility] Influenza Virus Vaccine - Whole 2017-10-28 00:00:00 Completed [facility] Influenza Virus Vaccine - Whole 2017-10-28 00:00:00 Completed [facility] Influenza Virus Vaccine - Whole 2017-10-28 00:00:00 Completed [facility] Influenza Virus Vaccine - Whole 2017-10-28 00:00:00 Completed [facility] Influenza Virus Vaccine - Whole 2017-10-28 00:00:00 Completed [facility] Influenza Virus Vaccine - Whole 2017-10-28 00:00:00 Completed [facility] Influenza Virus Vaccine - Whole 2017-10-28 00:00:00 Completed [facility] Influenza Virus Vaccine - Whole 2017-10-28 00:00:00 Completed [facility] Influenza Virus Vaccine - Whole 2017-10-28 00:00:00 Completed [facility] Influenza Virus Vaccine - Whole 2017-10-28 00:00:00 Completed [facility] Influenza Virus Vaccine - Whole 2017-10-28 00:00:00 Completed [facility] Influenza Virus Vaccine - Whole 2017-10-28 00:00:00 Completed [facility] Influenza Virus Vaccine - Whole 2017-10-28 00:00:00 Completed [facility] Influenza Virus Vaccine - Whole 2017-10-28 00:00:00 Completed [facility] Influenza Virus Vaccine - Whole 2017-10-28 00:00:00 Completed [facility] Influenza Virus Vaccine - Whole 2017-10-28 00:00:00 Completed [facility] Influenza Virus Vaccine - Whole 2017-10-28 00:00:00 Completed [facility] Influenza Virus Vaccine - Whole 2017-10-28 00:00:00 Completed [facility] Influenza Virus Vaccine - Whole 2017-10-28 00:00:00 Completed [facility] Influenza Virus Vaccine - Whole 2017-10-28 00:00:00 Completed [facility] Influenza High Dose 2015-11-21 00:00:00 Completed [facility] Influenza High Dose 2015-11-21 00:00:00 Completed [facility] Influenza High Dose 2015-11-21 00:00:00 Completed [facility] Influenza High Dose 2015-11-21 00:00:00 Completed [facility] Influenza High Dose 2015-11-21 00:00:00 Completed [facility] Influenza High Dose 2015-11-21 00:00:00 Completed [facility] Influenza High Dose 2015-11-21 00:00:00 Completed [facility] Influenza High Dose 2015-11-21 00:00:00 Completed [facility] Influenza High Dose 2015-11-21 00:00:00 Completed [facility] Influenza High Dose 2015-11-21 00:00:00 Completed [facility] Influenza High Dose 2015-11-21 00:00:00 Completed [facility] Influenza High Dose 2015-11-21 00:00:00 Completed [facility] Influenza High Dose 2015-11-21 00:00:00 Completed [facility] Influenza High Dose 2015-11-21 00:00:00 Completed [facility] Influenza High Dose 2015-11-21 00:00:00 Completed [facility] Influenza High Dose 2015-11-21 00:00:00 Completed [facility] Influenza High Dose 2015-11-21 00:00:00 Completed [facility] Influenza High Dose 2015-11-21 00:00:00 Completed [facility] Influenza High Dose 2015-11-21 00:00:00 Completed [facility] Influenza High Dose 2015-11-21 00:00:00 Completed [facility] Influenza High Dose 2015-11-21 00:00:00 Completed [facility] Influenza High Dose 2015-11-21 00:00:00 Completed [facility] Influenza High Dose 2015-11-21 00:00:00 Completed [facility] Influenza High Dose 2015-11-21 00:00:00 Completed [facility] Influenza High Dose 2015-11-21 00:00:00 Completed [facility] Influenza High Dose 2015-11-21 00:00:00 Completed [facility] Influenza High Dose 2015-11-21 00:00:00 Completed [facility] Influenza High Dose 2015-11-21 00:00:00 Completed [facility] Influenza High Dose 2015-11-21 00:00:00 Completed [facility] Influenza High Dose 2015-11-21 00:00:00 Completed [facility] Influenza High Dose 2015-11-21 00:00:00 Completed [facility] Pneumococcal Polysaccharide, PPSV23 (PNEUMOVAX) 2014-05-31 00:00:00 Completed [facility] Pneumococcal Polysaccharide, PPSV23 (PNEUMOVAX) 2014-05-31 00:00:00 Completed [facility] Pneumococcal Polysaccharide, PPSV23 (PNEUMOVAX) 2014-05-31 00:00:00 Completed [facility] Pneumococcal Polysaccharide, PPSV23 (PNEUMOVAX) 2014-05-31 00:00:00 Completed [facility] Pneumococcal Polysaccharide, PPSV23 (PNEUMOVAX) 2014-05-31 00:00:00 Completed [facility] Pneumococcal Polysaccharide, PPSV23 (PNEUMOVAX) 2014-05-31 00:00:00 Completed [facility] Pneumococcal Polysaccharide, PPSV23 (PNEUMOVAX) 2014-05-31 00:00:00 Completed [facility] Pneumococcal Polysaccharide, PPSV23 (PNEUMOVAX) 2014-05-31 00:00:00 Completed [facility] Pneumococcal Polysaccharide, PPSV23 (PNEUMOVAX) 2014-05-31 00:00:00 Completed [facility] Pneumococcal Polysaccharide, PPSV23 (PNEUMOVAX) 2014-05-31 00:00:00 Completed [facility] Pneumococcal Polysaccharide, PPSV23 (PNEUMOVAX) 2014-05-31 00:00:00 Completed [facility] Pneumococcal Polysaccharide, PPSV23 (PNEUMOVAX) 2014-05-31 00:00:00 Completed [facility] Pneumococcal Polysaccharide, PPSV23 (PNEUMOVAX) 2014-05-31 00:00:00 Completed [facility] Pneumococcal Polysaccharide, PPSV23 (PNEUMOVAX) 2014-05-31 00:00:00 Completed [facility] Pneumococcal Polysaccharide, PPSV23 (PNEUMOVAX) 2014-05-31 00:00:00 Completed [facility] Pneumococcal Polysaccharide, PPSV23 (PNEUMOVAX) 2014-05-31 00:00:00 Completed [facility] Pneumococcal Polysaccharide, PPSV23 (PNEUMOVAX) 2014-05-31 00:00:00 Completed [facility] Pneumococcal Polysaccharide, PPSV23 (PNEUMOVAX) 2014-05-31 00:00:00 Completed [facility] Pneumococcal Polysaccharide, PPSV23 (PNEUMOVAX) 2014-05-31 00:00:00 Completed [facility] Pneumococcal Polysaccharide, PPSV23 (PNEUMOVAX) 2014-05-31 00:00:00 Completed [facility] Pneumococcal Polysaccharide, PPSV23 (PNEUMOVAX) 2014-05-31 00:00:00 Completed [facility] Pneumococcal Polysaccharide, PPSV23 (PNEUMOVAX) 2014-05-31 00:00:00 Completed [facility] Pneumococcal Polysaccharide, PPSV23 (PNEUMOVAX) 2014-05-31 00:00:00 Completed [facility] Pneumococcal Polysaccharide, PPSV23 (PNEUMOVAX) 2014-05-31 00:00:00 Completed [facility] Pneumococcal Polysaccharide, PPSV23 (PNEUMOVAX) 2014-05-31 00:00:00 Completed [facility] Pneumococcal Polysaccharide, PPSV23 (PNEUMOVAX) 2014-05-31 00:00:00 Completed [facility] Pneumococcal Polysaccharide, PPSV23 (PNEUMOVAX) 2014-05-31 00:00:00 Completed [facility] Pneumococcal Polysaccharide, PPSV23 (PNEUMOVAX) 2014-05-31 00:00:00 Completed [facility] Pneumococcal Polysaccharide, PPSV23 (PNEUMOVAX) 2014-05-31 00:00:00 Completed [facility] Pneumococcal Polysaccharide, PPSV23 (PNEUMOVAX) 2014-05-31 00:00:00 Completed [facility] Pneumococcal Polysaccharide, PPSV23 (PNEUMOVAX) 2014-05-31 00:00:00 Completed [facility] Influenza High Dose 2013-11-09 00:00:00 Completed [facility] Influenza High Dose 2013-11-09 00:00:00 Completed [facility] Influenza High Dose 2013-11-09 00:00:00 Completed [facility] Influenza High Dose 2013-11-09 00:00:00 Completed [facility] Influenza High Dose 2013-11-09 00:00:00 Completed [facility] Influenza High Dose 2013-11-09 00:00:00 Completed [facility] Influenza High Dose 2013-11-09 00:00:00 Completed [facility] Influenza High Dose 2013-11-09 00:00:00 Completed [facility] Influenza High Dose 2013-11-09 00:00:00 Completed [facility] Influenza High Dose 2013-11-09 00:00:00 Completed [facility] Influenza High Dose 2013-11-09 00:00:00 Completed [facility] Influenza High Dose 2013-11-09 00:00:00 Completed [facility] Influenza High Dose 2013-11-09 00:00:00 Completed [facility] Influenza High Dose 2013-11-09 00:00:00 Completed [facility] Influenza High Dose 2013-11-09 00:00:00 Completed [facility] Influenza High Dose 2013-11-09 00:00:00 Completed [facility] Influenza High Dose 2013-11-09 00:00:00 Completed [facility] Influenza High Dose 2013-11-09 00:00:00 Completed [facility] Influenza High Dose 2013-11-09 00:00:00 Completed [facility] Influenza High Dose 2013-11-09 00:00:00 Completed [facility] Influenza High Dose 2013-11-09 00:00:00 Completed [facility] Influenza High Dose 2013-11-09 00:00:00 Completed [facility] Influenza High Dose 2013-11-09 00:00:00 Completed [facility] Influenza High Dose 2013-11-09 00:00:00 Completed [facility] Influenza High Dose 2013-11-09 00:00:00 Completed [facility] Influenza High Dose 2013-11-09 00:00:00 Completed [facility] Influenza High Dose 2013-11-09 00:00:00 Completed [facility] [facility] High Dose 2013-11-09 00:00:00 Completed [facility] Influenza High Dose 2013-11-09 00:00:00 Completed [facility] Influenza High Dose 2013-11-09 00:00:00 Completed [facility] Influenza High Dose 2013-11-09 00:00:00 Completed [facility] Pneumococcal 7 Conjugate, PCV7 (Prevnar7) 2012-11-29 00:00:00 Completed [facility] Pneumococcal 7 Conjugate, PCV7 (Prevnar7) 2012-11-29 00:00:00 Completed [facility] Pneumococcal 7 Conjugate, PCV7 (Prevnar7) 2012-11-29 00:00:00 Completed [facility] Pneumococcal 7 Conjugate, PCV7 (Prevnar7) 2012-11-29 00:00:00 Completed [facility] Pneumococcal 7 Conjugate, PCV7 (Prevnar7) 2012-11-29 00:00:00 Completed [facility] Pneumococcal 7 Conjugate, PCV7 (Prevnar7) 2012-11-29 00:00:00 Completed [facility] Pneumococcal 7 Conjugate, PCV7 (Prevnar7) 2012-11-29 00:00:00 Completed [facility] Pneumococcal 7 Conjugate, PCV7 (Prevnar7) 2012-11-29 00:00:00 Completed [facility] Pneumococcal 7 Conjugate, PCV7 (Prevnar7) 2012-11-29 00:00:00 Completed [facility] Pneumococcal 7 Conjugate, PCV7 (Prevnar7) 2012-11-29 00:00:00 Completed [facility] Pneumococcal 7 Conjugate, PCV7 (Prevnar7) 2012-11-29 00:00:00 Completed [facility] Pneumococcal 7 Conjugate, PCV7 (Prevnar7) 2012-11-29 00:00:00 Completed [facility] Pneumococcal 7 Conjugate, PCV7 (Prevnar7) 2012-11-29 00:00:00 Completed [facility] Pneumococcal 7 Conjugate, PCV7 (Prevnar7) 2012-11-29 00:00:00 Completed [facility] Pneumococcal 7 Conjugate, PCV7 (Prevnar7) 2012-11-29 00:00:00 Completed [facility] Pneumococcal 7 Conjugate, PCV7 (Prevnar7) 2012-11-29 00:00:00 Completed [facility] Pneumococcal 7 Conjugate, PCV7 (Prevnar7) 2012-11-29 00:00:00 Completed [facility] Pneumococcal 7 Conjugate, PCV7 (Prevnar7) 2012-11-29 00:00:00 Completed [facility] Pneumococcal 7 Conjugate, PCV7 (Prevnar7) 2012-11-29 00:00:00 Completed [facility] Pneumococcal 7 Conjugate, PCV7 (Prevnar7) 2012-11-29 00:00:00 Completed [facility] Pneumococcal 7 Conjugate, PCV7 (Prevnar7) 2012-11-29 00:00:00 Completed [facility] Pneumococcal 7 Conjugate, PCV7 (Prevnar7) 2012-11-29 00:00:00 Completed [facility] Pneumococcal 7 Conjugate, PCV7 (Prevnar7) 2012-11-29 00:00:00 Completed [facility] Pneumococcal 7 Conjugate, PCV7 (Prevnar7) 2012-11-29 00:00:00 Completed [facility] Pneumococcal 7 Conjugate, PCV7 (Prevnar7) 2012-11-29 00:00:00 Completed [facility] Pneumococcal 7 Conjugate, PCV7 (Prevnar7) 2012-11-29 00:00:00 Completed [facility] Pneumococcal 7 Conjugate, PCV7 (Prevnar7) 2012-11-29 00:00:00 Completed [facility] Pneumococcal 7 Conjugate, PCV7 (Prevnar7) 2012-11-29 00:00:00 Completed [facility] Pneumococcal 7 Conjugate, PCV7 (Prevnar7) 2012-11-29 00:00:00 Completed [facility] Pneumococcal 7 Conjugate, PCV7 (Prevnar7) 2012-11-29 00:00:00 Completed [facility] Pneumococcal 7 Conjugate, PCV7 (Prevnar7) 2012-11-29 00:00:00 Completed [facility] TDAP 2012-01-10 00:00:00 Completed [facility] Zoster(Zostavax)( laurita) 2012-01-10 00:00:00 Completed [facility] TDAP 2012-01-10 00:00:00 Completed [facility] Zoster(Zostavax)( laurita) 2012-01-10 00:00:00 Completed [facility] TDAP 2012-01-10 00:00:00 Completed [facility] Zoster(Zostavax)( laurita) 2012-01-10 00:00:00 Completed [facility] TDAP 2012-01-10 00:00:00 Completed [facility] Zoster(Zostavax)( laurita) 2012-01-10 00:00:00 Completed [facility] TDAP 2012-01-10 00:00:00 Completed [facility] Zoster(Zostavax)([facility]) 2012-01-10 00:00:00 Completed [facility] TDAP 2012-01-10 00:00:00 Completed [facility] Zoster(Zostavax)([facility]) 2012-01-10 00:00:00 Completed [facility] TDAP 2012-01-10 00:00:00 Completed [facility] Zoster(Zostavax)([facility]) 2012-01-10 00:00:00 Completed [facility] TDAP 2012-01-10 00:00:00 Completed [facility] Zoster(Zostavax)([facility]) 2012-01-10 00:00:00 Completed [facility] TDAP 2012-01-10 00:00:00 Completed [facility] Zoster(Zostavax)([facility]) 2012-01-10 00:00:00 Completed [facility] TDAP 2012-01-10 00:00:00 Completed [facility] Zoster(Zostavax)([facility]) 2012-01-10 00:00:00 Completed [facility] TDAP 2012-01-10 00:00:00 Completed [facility] Zoster(Zostavax)([facility]) 2012-01-10 00:00:00 Completed [facility] TDAP 2012-01-10 00:00:00 Completed [facility] Zoster(Zostavax)([facility]) 2012-01-10 00:00:00 Completed [facility] TDAP 2012-01-10 00:00:00 Completed [facility] Zoster(Zostavax)([facility]) 2012-01-10 00:00:00 Completed [facility] TDAP 2012-01-10 00:00:00 Completed [facility] Zoster(Zostavax)([facility]) 2012-01-10 00:00:00 Completed [facility] TDAP 2012-01-10 00:00:00 Completed [facility] Zoster(Zostavax)([facility]) 2012-01-10 00:00:00 Completed [facility] TDAP 2012-01-10 00:00:00 Completed [facility] Zoster(Zostavax)([facility]) 2012-01-10 00:00:00 Completed [facility] TDAP 2012-01-10 00:00:00 Completed [facility] Zoster(Zostavax)([facility]) 2012-01-10 [facility] Zoster(Zostavax)([facility]) 2012-01-10 [facility] Completed [facility] Zoster(Zostavax)([facility]) 2012-01-10 00:00:00 Completed [facility] 2012-01-10 00:00:00 Completed [facility] Zoster(Zostavax)([facility]) 2012-01-10 00:00:00 Completed [facility] TD 2012-01-10 00:00:00 Completed [facility] Zoster(Zostavax)([facility]) 2012-01-10 00:00:00 Completed [facility] 2012-01-10 00:00:00 Completed [facility] Zoster(Zostavax)([facility]) 2012-01-10 00:00:00 Completed [facility] 2012-01-10 00:00:00 Completed [facility] Zoster(Zostavax)([facility]) 2012-01-10 00:00:00 Completed [facility] 2012-01-10 00:00:00 Completed [facility] Zoster(Zostavax)([facility]) 2012-01-10 00:00:00 Completed [facility] TDAP 2012-01-10 00:00:00 Completed [facility] Zoster(Zostavax)([facility]) 2012-01-10 00:00:00 Completed [facility] TDAP 2012-01-10 00:00:00 Completed [facility] Zoster(Zostavax)([facility]) 2012-01-10 00:00:00 Completed [facility] TDAP 2012-01-10 00:00:00 Completed [facility] Zoster(Zostavax)( [facility]urita) 2012-01-10 00:00:00 Completed [facility] TDAP 2012-01-10 00:00:00 Completed [facility] Zoster(Zostavax)( laurita) 2012-01-10 00:00:00 Completed [facility] TDAP 2012-01-10 00:00:00 Completed [facility] Zoster(Zostavax)([facility]) 2012-01-10 00:00:00 Completed [facility] TDAP 2012-01-10 00:00:00 Completed [facility]:00:00 Completed [facility] TDAP 2012-01-10 00:00:00 Completed [facility] 2012[facility]10 00[facility]00:00 Completed [facility] Influenza Virus Vaccine 2011-12-16 00:00:00 Completed [facility] Influenza Virus Vaccine 2011-12-16 00:00:00 Completed [facility] Influenza Virus Vaccine 2011-12-16 00:00:00 Completed [facility] Influenza Virus Vaccine 2011-12-16 00:00:00 Completed [facility] Influenza Virus Vaccine 2011-12-16 00:00:00 Completed [facility] Influenza Virus Vaccine 2011-12-16 00:00:00 Completed [facility] Influenza Virus Vaccine 2011-12-16 00:00:00 Completed [facility] Influenza Virus Vaccine 2011-12-16 00:00:00 Completed [facility] Influenza Virus Vaccine 2011-12-16 00:00:00 Completed [facility] Influenza Virus Vaccine 2011-12-16 00:00:00 Completed [facility] Influenza Virus Vaccine 2011-12-16 00:00:00 Completed [facility] Influenza Virus Vaccine 2011-12-16 00:00:00 Completed [facility] Influenza Virus Vaccine 2011-12-16 00:00:00 Completed [facility] Influenza Virus Vaccine 2011-12-16 00:00:00 Completed [facility] Influenza Virus Vaccine 2011-12-16 00:00:00 Completed [facility] Influenza Virus Vaccine 2011-12-16 00:00:00 Completed [facility] Influenza Virus Vaccine 2011-12-16 00:00:00 Completed [facility] Influenza Virus Vaccine 2011-12-16 00:00:00 Completed [facility] Influenza Virus Vaccine 2011-12-16 00:00:00 Completed [facility] Influenza Virus Vaccine 2011-12-16 00:00:00 Completed [facility] Influenza Virus Vaccine 2011-12-16 00:00:00 Completed [facility] Influenza Virus Vaccine 2011-12-16 00:00:00 Completed [facility] Influenza Virus Vaccine 2011-12-16 00:00:00 Completed [facility] Influenza Virus Vaccine 2011-12-16 00:00:00 Completed [facility] Influenza Virus Vaccine 2011-12-16 00:00:00 Completed [facility] Influenza Virus Vaccine 2011-12-16 00:00:00 Completed [facility] Influenza Virus Vaccine 2011-12-16 00:00:00 Completed [facility] Influenza Virus Vaccine 2011-12-16 00:00:00 Completed [facility] Influenza Virus Vaccine 2011-12-16 00:00:00 Completed [facility] Influenza Virus Vaccine 2011-12-16 00:00:00 Completed [facility] Influenza Virus Vaccine 2011-12-16 00:00:00 Completed [facility] Influenza Virus Vaccine 2008-11-18 00:00:00 Completed [facility] Influenza Virus Vaccine 2008-11-18 00:00:00 Completed [facility] Influenza Virus Vaccine 2008-11-18 00:00:00 Completed [facility] Influenza Virus Vaccine 2008-11-18 00:00:00 Completed [facility] Influenza Virus Vaccine 2008-11-18 00:00:00 Completed [facility] Influenza Virus Vaccine 2008-11-18 00:00:00 Completed [facility] Influenza Virus Vaccine 2008-11-18 00:00:00 Completed [facility] Influenza Virus Vaccine 2008-11-18 00:00:00 Completed [facility] Influenza Virus Vaccine 2008-11-18 00:00:00 Completed [facility] Influenza Virus Vaccine 2008-11-18 00:00:00 Completed [facility] Influenza Virus Vaccine 2008-11-18 00:00:00 Completed [facility] Influenza Virus Vaccine 2008-11-18 00:00:00 Completed [facility] Influenza Virus Vaccine 2008-11-18 00:00:00 Completed [facility] Influenza Virus Vaccine 2008-11-18 00:00:00 Completed [facility] Influenza Virus Vaccine 2008-11-18 00:00:00 Completed [facility] Influenza Virus Vaccine 2008-11-18 00:00:00 Completed [facility] Influenza Virus Vaccine 2008-11-18 00:00:00 Completed [facility] Influenza Virus Vaccine 2008-11-18 00:00:00 Completed [facility] Influenza Virus Vaccine 2008-11-18 00:00:00 Completed [facility] Influenza Virus Vaccine 2008-11-18 00:00:00 Completed [facility] Influenza Virus Vaccine 2008-11-18 00:00:00 Completed [facility] Influenza Virus Vaccine 2008-11-18 00:00:00 Completed [facility] Influenza Virus Vaccine 2008-11-18 00:00:00 Completed [facility] Influenza Virus Vaccine 2008-11-18 00:00:00 Completed [facility] Influenza Virus Vaccine 2008-11-18 00:00:00 Completed [facility] Influenza Virus Vaccine 2008-11-18 00:00:00 Completed [facility] Influenza Virus Vaccine 2008-11-18 00:00:00 Completed [facility] Influenza Virus Vaccine 2008-11-18 00:00:00 Completed [facility] Influenza Virus Vaccine 2008-11-18 00:00:00 Completed [facility] Influenza Virus Vaccine 2008-11-18 00:00:00 Completed [facility] Influenza Virus Vaccine 2008-11-18 00:00:00 Completed [facility] Pneumococcal 7 Conjugate, PCV7 (Prevnar7) 2007-03-13 00:00:00 Completed [facility] Pneumococcal 7 Conjugate, PCV7 (Prevnar7) 2007-03-13 00:00:00 Completed [facility] Pneumococcal 7 Conjugate, PCV7 (Prevnar7) 2007-03-13 00:00:00 Completed [facility] Pneumococcal 7 Conjugate, PCV7 (Prevnar7) 2007-03-13 00:00:00 Completed [facility] Pneumococcal 7 Conjugate, PCV7 (Prevnar7) 2007-03-13 00:00:00 Completed [facility] Pneumococcal 7 Conjugate, PCV7 (Prevnar7) 2007-03-13 00:00:00 Completed [facility] Pneumococcal 7 Conjugate, PCV7 (Prevnar7) 2007-03-13 00:00:00 Completed [facility] Pneumococcal 7 Conjugate, PCV7 (Prevnar7) 2007-03-13 00:00:00 Completed [facility] Pneumococcal 7 Conjugate, PCV7 (Prevnar7) 2007-03-13 00:00:00 Completed [facility] Pneumococcal 7 Conjugate, PCV7 (Prevnar7) 2007-03-13 00:00:00 Completed [facility] Pneumococcal 7 Conjugate, PCV7 (Prevnar7) 2007-03-13 00:00:00 Completed [facility] Pneumococcal 7 Conjugate, PCV7 (Prevnar7) 2007-03-13 00:00:00 Completed [facility] Pneumococcal 7 Conjugate, PCV7 (Prevnar7) 2007-03-13 00:00:00 Completed [facility] Pneumococcal 7 Conjugate, PCV7 (Prevnar7) 2007-03-13 00:00:00 Completed [facility] Pneumococcal 7 Conjugate, PCV7 (Prevnar7) 2007-03-13 00:00:00 Completed [facility] Pneumococcal 7 Conjugate, PCV7 (Prevnar7) 2007-03-13 00:00:00 Completed [facility] Pneumococcal 7 Conjugate, PCV7 (Prevnar7) 2007-03-13 00:00:00 Completed [facility] Pneumococcal 7 Conjugate, PCV7 (Prevnar7) 2007-03-13 00:00:00 Completed [facility] Pneumococcal 7 Conjugate, PCV7 (Prevnar7) 2007-03-13 00:00:00 Completed [facility] Pneumococcal 7 Conjugate, PCV7 (Prevnar7) 2007-03-13 00:00:00 Completed [facility] Pneumococcal 7 Conjugate, PCV7 (Prevnar7) 2007-03-13 00:00:00 Completed [facility] Pneumococcal 7 Conjugate, PCV7 (Prevnar7) 2007-03-13 00:00:00 Completed [facility] Pneumococcal 7 Conjugate, PCV7 (Prevnar7) 2007-03-13 00:00:00 Completed [facility] Pneumococcal 7 Conjugate, PCV7 (Prevnar7) 2007-03-13 00:00:00 Completed [facility] Pneumococcal 7 Conjugate, PCV7 (Prevnar7) 2007-03-13 00:00:00 Completed [facility] Pneumococcal 7 Conjugate, PCV7 (Prevnar7) 2007-03-13 00:00:00 Completed [facility] Pneumococcal 7 Conjugate, PCV7 (Prevnar7) 2007-03-13 00:00:00 Completed [facility] Pneumococcal 7 Conjugate, PCV7 (Prevnar7) 2007-03-13 00:00:00 Completed [facility] Pneumococcal 7 Conjugate, PCV7 (Prevnar7) 2007-03-13 00:00:00 Completed [facility] Pneumococcal 7 Conjugate, PCV7 (Prevnar7) 2007-03-13 00:00:00 Completed [facility] Pneumococcal 7 Conjugate, PCV7 (Prevnar7) 2007-03-13 00:00:00 Completed [facility] Pneumococcal 7 Conjugate, PCV7 (Prevnar7) Unknown Completed [facility] Influenza Virus Vaccine Unknown Completed [facility] TDAP Unknown Completed [facility] Influenza Virus Vaccine Unknown Completed [facility] Pneumococcal 7 Conjugate, PCV7 (Prevnar7) Unknown Completed [facility] Influenza High Dose Unknown Completed [facility] Pneumococcal Polysaccharide, PPSV23 (PNEUMOVAX) Unknown Completed [facility] Influenza High Dose Unknown Completed [facility] Zoster(Zostavax)(Sh ingles) Unknown Completed [facility] Influenza Virus Vaccine - Whole Unknown Completed [facility] Influenza Virus Vaccine Unknown Completed [facility] Zoster Vaccine Recombinant Unknown Completed [facility] Zoster Vaccine Recombinant Unknown Completed [facility] SARS-COV-2 COVID-19 PFIZER VACCINE Unknown Completed [facility] SARS-COV-2 COVID-19 PFIZER VACCINE Unknown Completed [facility] Pneumococcal 7 Conjugate, PCV7 (Prevnar7) Unknown Completed [facility] Influenza Virus Vaccine Unknown [facility] [facility] TD[facility] Unknown Completed [facility] Influenza Virus Vacc[facility] Unknown Completed [facility] Pneumococcal 7 Conjugate, PCV7 (Prevnar7) Unknown Completed [facility] Influenza High Dose Unknown Completed [facility] Pneumococcal Polysaccharide, PPSV23 (PNEUMOVAX) Unknown Completed [facility] Influenza High Dose Unknown Completed [facility] Zoster(Zostavax)(Sh ingles) Unknown Completed [facility] Influenza Virus Vaccine - Whole Unknown Completed [facility] Influenza Virus Vaccine Unknown Completed [facility] Zoster Vaccine Recombinant Unknown Completed [facility] Zoster Vaccine Recombinant Unknown Completed [facility] SARS-COV-2 COVID-19 PFIZER VACCINE Unknown Completed [facility] SARS-COV-2 COVID-19 PFIZER VACCINE Unknown Completed [facility] Pneumococcal 7 Conjugate, PCV7 (Prevnar7) Unknown Completed [facility] Influenza Virus Vaccine Unknown Completed [facility] TDAP Unknown Completed [facility] Influenza Virus Vaccine Unknown Completed [facility] Pneumococcal 7 Conjugate, PCV7 (Prevnar7) Unknown Completed [facility] Influenza High Dose Unknown Completed [facility] Pneumococcal Polysaccharide, PPSV23 (PNEUMOVAX) Unknown Completed [facility] Influenza High Dose Unknown Completed [facility] Zoster(Zostavax)(Sh ingles) Unknown Completed [facility] Influenza Virus Vaccine - Whole Unknown Completed [facility] Influenza Virus Vaccine Unknown Completed [facility] Zoster Vaccine Recombinant Unknown Completed [facility] Zoster Vaccine Recombinant Unknown Completed [facility] SARS-COV-2 COVID-19 PFIZER VACCINE Unknown Completed [facility] SARS-COV-2 COVID-19 PFIZER VACCINE Unknown Completed [facility] Pneumococcal 7 Conjugate, PCV7 (Prevnar7) Unknown Completed [facility] Influenza Virus Vaccine Unknown Completed [facility] TDAP Unknown Completed [facility] Influenza Virus Vaccine Unknown Completed [facility] Pneumococcal 7 Conjugate, PCV7 (Prevnar7) Unknown Completed [facility] Influenza High Dose Unknown Completed [facility] Pneumococcal Polysaccharide, PPSV23 (PNEUMOVAX) Unknown Completed [facility] Influenza High Dose Unknown Completed [facility] Zoster(Zostavax)(Sh ingles) Unknown Completed [facility] Influenza Virus Vaccine - Whole Unknown Completed [facility] Influenza Virus Vaccine Unknown Completed [facility] Zoster Vaccine Recombinant Unknown Completed [facility] Zoster Vaccine Recombinant Unknown Completed [facility] SARS-COV-2 COVID-19 PFIZER VACCINE Unknown Completed [facility] SARS[facility]COV-2 COVID-19 PFIZER VACCINE Unknown Completed [facility] Pneumococcal 7 Conjugate, PCV7 (Prevnar7) Unknown Completed [facility] Influenza Virus Vaccine Unknown Completed [facility] TDAP Unknown Completed [facility] Influenza Virus Vaccine Unknown Completed [facility] Pneumococcal 7 Conjugate, PCV7 (Prevnar7) Unknown Completed [facility] Influenza High Dose Unknown Completed [facility] Pneumococcal Polysaccharide, PPSV23 (PNEUMOVAX) Unknown Completed [facility] Influenza High Dose Unknown Completed [facility] Zoster(Zostavax)(Sh ingles) Unknown Completed [facility] Influenza Virus Vaccine - Whole Unknown Completed [facility] Influenza Virus Vaccine Unknown Completed [facility] Zoster Vaccine Recombinant Unknown Completed [facility] Zoster Vaccine Recombinant Unknown Completed [facility] SARS-COV-2 COVID-19 PFIZER VACCINE Unknown Completed [facility] SARS-COV-2 COVID-19 PFIZER VACCINE Unknown Completed [facility] Pneumococcal 7 Conjugate, PCV7 (Prevnar7) Unknown Completed [facility] Influenza Virus Vaccine Unknown Completed [facility] TDAP Unknown Completed [facility] Influenza Virus Vaccine Unknown Completed [facility] Pneumococcal 7 Conjugate, PCV7 (Prevnar7) Unknown Completed [facility] Influenza High Dose Unknown Completed [facility] Pneumococcal Polysaccharide, PPSV23 (PNEUMOVAX) Unknown Completed [facility] Influenza High Dose Unknown Completed [facility] Zoster(Zostavax)(Sh ingles) Unknown Completed [facility] Influenza Virus Vaccine - Whole Unknown Completed [facility] Influenza Virus Vaccine Unknown Completed [facility] Zoster Vaccine Recombinant Unknown Completed [facility] Zoster Vaccine Recombinant Unknown Completed [facility] SARS-COV-2 COVID-19 PFIZER VACCINE Unknown Completed [facility] SARS-COV-2 COVID-19 PFIZER VACCINE Unknown Completed [facility] Pneumococcal 7 Conjugate, PCV7 (Prevnar7) Unknown Completed [facility] Influenza Virus Vaccine Unknown Completed [facility] TDAP Unknown Completed [facility] Influenza Virus Vaccine Unknown Completed [facility] Pneumococcal 7 Conjugate, PCV7 (Prevnar7) Unknown Completed [facility] Influenza High Dose Unknown Completed [facility] Pneumococcal Polysaccharide, PPSV23 (PNEUMOVAX) Unknown Completed [facility] Influenza High Dose Unknown Completed [facility] Zoster(Zostavax)(Sh ingles) Unknown Completed [facility] Influenza Virus Vaccine - Whole Unknown Completed [facility] Influenza Virus Vaccine Unknown Completed [facility] Zoster Vaccine Recombinant Unknown Completed [facility] Zoster Vaccine Recombinant Unknown Completed [facility] SARS-COV-2 COVID-19 PFIZER VACCINE Unknown Completed [facility] SARS[facility]COV-2 COVID-19 PFIZER VACCINE Unknown Completed [facility] Pneumococcal 7 Conjugate, PCV7 (Prevnar7) Unknown Completed [facility] Influenza Virus Vaccine Unknown Completed [facility] TDAP Unknown Completed [facility] Influenza Virus Vaccine Unknown Completed [facility] Pneumococcal 7 Conjugate, PCV7 (Prevnar7) Unknown Completed [facility] Influenza High Dose Unknown Completed [facility] Pneumococcal Polysaccharide, PPSV23 (PNEUMOVAX) Unknown Completed [facility] Influenza High Dose Unknown Completed [facility] Zoster(Zostavax)( ingles) Unknown Completed [facility] Influenza Virus Vaccine - Whole Unknown Completed [facility] Influenza Virus Vaccine Unknown Completed [facility] Zoster Vaccine Recombinant Unknown Completed [facility] Zoster Vaccine Recombinant Unknown Completed [facility] SARS-COV-2 COVID-19 PFIZER VACCINE Unknown Completed [facility] SARS-COV-2 COVID-19 PFIZER VACCINE Unknown Completed [facility] Pneumococcal 7 Conjugate, PCV7 (Prevnar7) Unknown Completed [facility] Influenza Virus Vaccine Unknown Completed [facility] TDAP Unknown Completed [facility] Influenza Virus Vaccine Unknown Completed [facility] Pneumococcal 7 Conjugate, PCV7 (Prevnar7) Unknown Completed [facility] Influenza High Dose Unknown Completed [facility] Pneumococcal Polysaccharide, PPSV23 (PNEUMOVAX) Unknown Completed [facility] Influenza High Dose Unknown Completed [facility] Zoster(Zostavax)(Sh ingles) Unknown Completed [facility] Influenza Virus Vaccine - Whole Unknown Completed [facility] Influenza Virus Vaccine Unknown Completed [facility] Zoster Vaccine Recombinant Unknown Completed [facility] Zoster Vaccine Recombinant Unknown Completed [facility] SARS-COV-2 COVID-19 PFIZER VACCINE Unknown Completed [facility] SARS-COV-2 COVID-19 PFIZER VACCINE Unknown Completed [facility] Pneumococcal 7 Conjugate, PCV7 (Prevnar7) Unknown Completed [facility] Influenza Virus Vaccine Unknown Completed [facility] TDAP Unknown Completed [facility] Influenza Virus Vaccine Unknown Completed [facility] Pneumococcal 7 Conjugate, PCV7 (Prevnar7) Unknown Completed [facility] Influenza High Dose Unknown Completed [facility] Pneumococcal Polysaccharide, PPSV23 (PNEUMOVAX) Unknown Completed [facility] Influenza High Dose Unknown Completed [facility] Zoster(Zostavax)(Sh ingles) Unknown Completed [facility] Influenza Virus Vaccine - Whole Unknown Completed [facility] Influenza Virus Vaccine Unknown Completed [facility] Zoster Vaccine Recombinant Unknown Completed [facility] Zoster Vaccine Recombinant Unknown Completed [facility] SARS-COV-2 COVID-19 PFIZER VACCINE Unknown Completed [facility] SARS-COV-2 COVID-19 PFIZER VACCINE Unknown Completed [facility] Pneumococcal 7 Conjugate, PCV7 (Prevnar7) Unknown Completed [facility] Influenza Virus Vaccine Unknown Completed [facility] TDAP Unknown Completed [facility] Influenza Virus Vaccine Unknown Completed [facility] Pneumococcal 7 Conjugate, PCV7 (Prevnar7) Unknown Completed [facility] Influenza High Dose Unknown Completed [facility] Pneumococcal Polysaccharide, PPSV23 (PNEUMOVAX) Unknown Completed [facility] Influenza High Dose Unknown Completed [facility] Zoster(Zostavax)(Sh ingles) Unknown Completed [facility] Influenza Virus Vaccine - Whole Unknown Completed [facility] Influenza Virus Vaccine Unknown Completed [facility] Zoster Vaccine Recombinant Unknown Completed [facility] Zoster Vaccine Recombinant Unknown Completed [facility] SARS-COV-2 COVID-19 PFIZER VACCINE Unknown Completed [facility] SARS-COV-2 COVID-19 PFIZER VACCINE Unknown Completed [facility] Pneumococcal 7 Conjugate, PCV7 (Prevnar7) Unknown Completed [facility] Influenza Virus Vaccine Unknown Completed [facility] TDAP Unknown Completed [facility] Influenza Virus Vaccine Unknown Completed [facility] Pneumococcal 7 Conjugate, PCV7 (Prevnar7) Unknown Completed [facility] Influenza High Dose Unknown Completed [facility] Pneumococcal Polysaccharide, PPSV23 (PNEUMOVAX) Unknown Completed [facility] Influenza High Dose Unknown Completed [facility] Zoster(Zostavax)(Sh ingles) Unknown Completed [facility] Influenza Virus Vaccine - Whole Unknown Completed [facility] Influenza Virus Vaccine Unknown Completed [facility] Zoster Vaccine Recombinant Unknown Completed [facility] Zoster Vaccine Recombinant Unknown Completed [facility] SARS-COV-2 COVID-19 PFIZER VACCINE Unknown Completed [facility] SARS-COV-2 COVID-19 PFIZER VACCINE Unknown Completed [facility] Pneumococcal 7 Conjugate, PCV7 (Prevnar7) Unknown Completed [facility] Influenza Virus Vaccine Unknown Completed [facility] TDAP Unknown Completed [facility] Influenza Virus Vaccine Unknown Completed [facility] Pneumococcal 7 Conjugate, PCV7 (Prevnar7) Unknown Completed [facility] Influenza High Dose Unknown Completed [facility] Pneumococcal Polysaccharide, PPSV23 (PNEUMOVAX) Unknown Completed [facility] Influenza High Dose Unknown Completed [facility] Zoster(Zostavax)(Sh ingles) Unknown Completed [facility] Influenza Virus Vaccine - Whole Unknown Completed [facility] Influenza Virus Vaccine Unknown Completed [facility] Zoster Vaccine Recombinant Unknown Completed [facility] Zoster Vaccine Recombinant Unknown Completed [facility] SARS-COV-2 COVID-19 PFIZER VACCINE Unknown Completed [facility] SARS-COV-2 COVID-19 PFIZER VACCINE Unknown Completed [facility] FluAD FluAD Unknown Completed [facility] FluAD FluAD Unknown Completed [facility] FluAD FluAD Unknown Completed [facility] FluAD FluAD Unknown Com[facility] FluAD FluAD Unknown Com[facility] FluAD FluAD Unknown Com[facility] FluAD FluAD Unknown Com[facility] FluAD FluAD Unknown Com[facility] FluAD FluAD Unknown Com[facility] FluAD FluAD Unknown Com[facility] FluAD FluAD Unknown Com[facility] FluAD FluAD Unknown Com[facility] FluAD FluAD Unknown Com[facility] FluAD FluAD Unknown Com[facility] FluAD FluAD Unknown Completed [facility] FluAD FluAD Unknown Completed [facility] FluAD FluAD Unknown Completed [facility] FluAD FluAD Unknown Completed [facility] FluAD FluAD Unknown Completed [facility] Vital Signs Vital Name Observation Time Observation Value Comments S ource Systolic blood pressure 2023-06-22 18:00:00 139 mm[Hg] [facility] Diastolic blood pressure 2023-06-22 18:00:00 78 mm[Hg] [facility] Heart rate 2023-06-22 18:00:00 80 /min [facility] Body temperature 2023-06-22 18:00:00 37 [place] [facility] Respiratory rate 2023-06-22 18:00:00 16 /min [facility] Body height 2023-06-22 18:00:00 149.9 cm [facility] Body weight 2023-06-22 18:00:00 64.411 kg [facility] BMI 2023-06-22 18:00:00 28.68 kg/m2 [facility] Oxygen saturation in Arterial blood by Pulse oximetry 2023-06-22 18:00:00 97 /min [facility] Respiratory rate 2023-05-18 15:08:00 12 /min [facility] Body height 2023-05-18 15:08:00 149.9 cm [facility] Body weight 2023-05-18 15:08:00 64.864 kg [facility] BMI 2023-05-18 15:08:00 28.88 kg/m2 [facility] height 2023-03-10 10:50:00 59 [in_i] Commo n [facility] weight 2023-03-10 10:50:00 140.4 [lb_av] Co mmon [facility] temperature 2023-03-10 10:50:00 97.7 [degF] Com mon [facility] bmi 2023-03-10 10:50:00 28.35 kg/m2 Comm on [facility] oximetry 2023-03-10 10:50:00 99 % Commo n [facility] respiratory rate 2023-03-10 10:50:00 16 /min [facility] blood pressure systolic 2023-03-10 10:50:00 120 mm[Hg] [facility] blood pressure diastolic 2023-03-10 10:50:00 60 mm[Hg] [facility] height 2023-03-10 10:20:00 59 [in_i] Commo n [facility] weight 2023-03-10 10:20:00 140.4 [lb_av] Co mmon [facility] temperature 2023-03-10 10:20:00 97.7 [degF] Com mon [facility] bmi 2023-03-10 10:20:00 28.35 kg/m2 Comm on [facility] oximetry 2023-03-10 10:20:00 99 % Commo n [facility] blood pressure systolic 2023-03-10 10:20:00 120 mm[Hg] [facility] blood pressure diastolic 2023-03-10 10:20:00 60 mm[Hg] [facility] height 2023-03-10 10:20:00 59 [in_i] Commo n [facility] weight 2023-03-10 10:20:00 140.4 [lb_av] Co m[facility] temperature 2023-03-10 10:20:00 97.7 [degF] Com mon [facility] bmi 2023-03-10 10:20:00 28.35 kg/m2 Comm on [facility] oximetry 2023-03-10 10:20:00 99 % Commo n [facility] blood pressure systolic 2023-03-10 10:20:00 120 mm[Hg] [facility] blood pressure diastolic 2023-03-10 10:20:00 60 mm[Hg] [facility] Respiratory rate 2023-02-16 19:08:00 12 /min [facility] Body height 2023-02-16 19:08:00 149.9 cm [facility] Body weight 2023-02-16 19:08:00 64.864 kg [facility] BMI 2023-02-16 19:08:00 28.88 kg/m2 [facility] Respiratory rate 2023-01-19 16:28:00 16 /min [facility] Body height 2023-01-19 16:28:00 149.9 cm [facility] Body weight 2023-01-19 16:28:00 64.864 kg [facility] BMI 2023-01-19 16:28:00 28.88 kg/m2 [facility] Respiratory rate 2022-12-15 14:58:00 12 /min [facility] Body height 2022-12-15 14:58:00 149.9 cm [facility] Body weight 2022-12-15 14:58:00 64.864 kg [facility] BMI 2022-12-15 14:58:00 28.88 kg/m2 [facility] height 2022-12-06 10:40:00 59 [in_i] Commo n [facility] weight 2022-12-06 10:40:00 144.6 [lb_av] Co [facility] temperature 2022-12-06 10:40:00 98.0 [degF] Com mon [facility] bmi 2022-12-06 10:40:00 29.2 kg/m2 Com[facility] oximetry 2022-12-06 10:40:00 96 % Commo n [facility] respiratory rate 2022-12-06 10:40:00 16 /min [facility] blood pressure systolic 2022-12-06 10:40:00 142 mm[Hg] [facility] blood pressure diastolic 2022-12-06 10:40:00 75 mm[Hg] [facility] height 2022-09-23 14:40:00 59 [in_i] Commo n [facility] weight 2022-09-23 14:40:00 142.6 [lb_av] [facility] temperature 2022-09-23 14:40:00 97.9 [degF] Com mon [facility] bmi 2022-09-23 14:40:00 28.8 kg/m2 Commo n [facility] oximetry 2022-09-23 14:40:00 98 % Commo n [facility] respiratory rate 2022-09-23 14:40:00 18 /min Common [facility] blood pressure systolic 2022-09-23 14:40:00 137 mm[Hg] Common [facility] blood pressure diastolic 2022-09-23 14:40:00 63 mm[Hg] [facility] Body height 2022-09-22 15:37:00 149.9 cm [facility] Body weight 2022-09-22 15:37:00 64.864 kg [facility] BMI 2022-09-22 15:37:00 28.88 kg/m2 [facility] height 2022-08-30 10:20:00 59 [in_i] Commo n [facility] weight 2022-08-30 10:20:00 144.9 [lb_av] Co mmon [facility] temperature 2022-08-30 10:20:00 97.2 [degF] Com mon [facility] bmi 2022-08-30 10:20:00 29.26 kg/m2 Comm on [facility] oximetry 2022-08-30 10:20:00 98 % Commo n [facility] respiratory rate 2022-08-30 10:20:00 18 /min Common [facility] blood pressure systolic 2022-08-30 10:20:00 118 mm[Hg] Common [facility] blood pressure diastolic 2022-08-30 10:20:00 61 mm[Hg] [facility] Respiratory rate 2022-08-25 15:38:00 12 /min [facility] Body height 2022-08-25 15:38:00 149.9 cm [facility] Body weight 2022-08-25 15:38:00 65.137 kg [facility] BMI 2022-08-25 15:38:00 29.00 kg/m2 [facility] Oxygen saturation in Arterial blood by Pulse oximetry 2022-08-25 15:38:00 98 /min [facility] Systolic blood pressure 2022-06-23 17:57:00 126 mm[Hg] [facility] Diastolic blood pressure 2022-06-23 17:57:00 65 mm[Hg] [facility] Heart rate 2022-06-23 17:57:00 84 /min [facility] Body temperature 2022-06-23 17:57:00 36.72 Lena [facility] Respiratory rate 2022-06-23 17:57:00 16 /min [facility] Body height 2022-06-23 17:57:00 149.9 cm [facility] Body weight 2022-06-23 17:57:00 65.137 kg [facility] BMI 2022-06-23 17:57:00 29.00 kg/m2 [facility] Oxygen saturation in Arterial blood by Pulse oximetry 2022-06-23 17:57:00 95 /min [facility] height 2022-04-30 09:30:00 59 [in_i] Commo n [facility] weight 2022-04-30 09:30:00 144 [lb_av] Comm on [facility] temperature 2022-04-30 09:30:00 97.2 [degF] Com [facility] bmi 2022-04-30 09:30:00 29.08 kg/m2 Comm on [facility] oximetry 2022-04-30 09:30:00 99 % Commo n [facility] respiratory rate 2022-04-30 09:30:00 16 /min [facility] blood pressure systolic 2022-04-30 09:30:00 120 mm[Hg] [facility] blood pressure diastolic 2022-04-30 09:30:00 56 mm[Hg] [facility] height 2022-04-30 10:00:00 59 [in_i] Commo n [facility] weight 2022-04-30 10:00:00 144 [lb_av] Comm on [facility] temperature 2022-04-30 10:00:00 97.2 [degF] Com [facility] bmi 2022-04-30 10:00:00 29.08 kg/m2 Comm on [facility] oximetry 2022-04-30 10:00:00 99 % Commo n [facility] respiratory rate 2022-04-30 10:00:00 16 /min Common [facility] blood pressure systolic 2022-04-30 10:00:00 120 mm[Hg] [facility] blood pressure diastolic 2022-04-30 10:00:00 56 mm[Hg] [facility] Systolic blood pressure 2022-03-03 17:12:00 109 mm[Hg] [facility] Diastolic blood pressure 2022-03-03 17:12:00 67 mm[Hg] [facility] Heart rate 2022-03-03 17:12:00 95 /min Unive [facility] Body temperature 2022-03-03 17:12:00 36.89 Lena [facility] Respiratory rate 2022-03-03 17:12:00 18 /min [facility] Body height 2022-03-03 17:12:00 149.9 cm [facility] Body weight 2022-03-03 17:12:00 63.912 kg [facility] BMI 2022-03-03 17:12:00 28.46 kg/m2 [facility] Oxygen saturation in Arterial blood by Pulse oximetry 2022-03-03 17:12:00 98 /min [facility] Systolic blood pressure 2022-01-06 19:11:00 102 mm[Hg] [facility] Diastolic blood pressure 2022-01-06 19:11:00 61 mm[Hg] [facility] Heart rate 2022-01-06 19:11:00 101 /min [facility] Body temperature 2022-01-06 19:11:00 36.83 Lena [facility] Respiratory rate 2022-01-06 19:11:00 16 /min [facility] Body height 2022-01-06 19:11:00 149.9 cm [facility] Body weight 2022-01-06 19:11:00 62.279 kg [facility] BMI 2022-01-06 19:11:00 27.73 kg/m2 [facility] Oxygen saturation in Arterial blood by Pulse oximetry 2022-01-06 19:11:00 95 /min [facility] Systolic blood pressure 2021-12-15 18:56:00 115 mm[Hg] [facility] Diastolic blood pressure 2021-12-15 18:56:00 65 mm[Hg] [facility] Heart rate 2021-12-15 18:56:00 98 /min [facility] Body temperature 2021-12-15 18:56:00 36.89 Lena [facility] Body height 2021-12-15 18:56:00 149.9 cm [facility] Body weight 2021-12-15 18:56:00 64.229 kg [facility] BMI 2021-12-15 18:56:00 28.60 kg/m2 [facility] Oxygen saturation in Arterial blood by Pulse oximetry 2021-12-15 18:56:00 97 /min [facility] Systolic blood pressure 2021-12-09 18:11:00 127 mm[Hg] [facility] Diastolic blood pressure 2021-12-09 18:11:00 77 mm[Hg] [facility] Heart rate 2021-12-09 18:11:00 87 /min Unive [facility] Body temperature 2021-12-09 18:11:00 37 Lena [facility] Respiratory rate 2021-12-09 18:11:00 18 /min [facility] Body height 2021-12-09 18:11:00 149.9 cm [facility] Body weight 2021-12-09 18:11:00 64.184 kg [facility] BMI 2021-12-09 18:11:00 28.58 kg/m2 [facility] Oxygen saturation in Arterial blood by Pulse oximetry 2021-12-09 18:11:00 98 /min [facility] Systolic blood pressure 2021-11-11 18:21:00 110 mm[Hg] [facility] Diastolic blood pressure 2021-11-11 18:21:00 64 mm[Hg] [facility] Heart rate 2021-11-11 18:21:00 103 /min Unive [facility] Body temperature 2021-11-11 18:21:00 36.94 Lena [facility] Respiratory rate 2021-11-11 18:21:00 18 /min [facility] Body height 2021-11-11 18:21:00 149.9 cm [facility] Body weight 2021-11-11 18:21:00 63.594 kg [facility] BMI 2021-11-11 18:21:00 28.32 kg/m2 [facility] Oxygen saturation in Arterial blood by Pulse oximetry 2021-11-11 18:21:00 97 /min [facility] height 2021-10-27 10:50:00 59.5 [in_i] Comm on [facility] weight 2021-10-27 10:50:00 142.5 [lb_av] Co mmon [facility] temperature 2021-10-27 10:50:00 97.4 [degF] Com mon [facility] bmi 2021-10-27 10:50:00 28.3 kg/m2 Commo n [facility] oximetry 2021-10-27 10:50:00 94 % Comm n [facility] respiratory rate 2021-10-27 10:50:00 16 /min [facility] blood pressure systolic 2021-10-27 10:50:00 115 mm[Hg] [facility] blood pressure diastolic 2021-10-27 10:50:00 57 mm[Hg] [facility] Systolic blood pressure 2021-10-14 20:05:00 146 mm[Hg] [facility] Diastolic blood pressure 2021-10-14 20:05:00 77 mm[Hg] [facility] Heart rate 2021-10-14 20:05:00 86 /min [facility] 2021-10-14 20:05:00 36.94 Lena [facility] Respiratory rate 2021-10-14 20:05:00 18 /min [facility] Body height 2021-10-14 20:05:00 149.9 cm [facility] Body weight 2021-10-14 20:05:00 64.547 kg [facility] BMI 2021-10-14 20:05:00 28.74 kg/m2 [facility] Oxygen saturation in Arterial blood by Pulse oximetry 2021-10-14 20:05:00 98 /min [facility] height 2021-07-24 10:50:00 59 [in_i] Commo n [facility] weight 2021-07-24 10:50:00 148.2 [lb_av] Co [facility] temperature 2021-07-24 10:50:00 98.1 [degF] Com [facility] bmi 2021-07-24 10:50:00 29.93 kg/m2 Comm on [facility] oximetry 2021-07-24 10:50:00 100 % Commo n [facility] respiratory rate 2021-07-24 10:50:00 18 /min [facility] blood pressure systolic 2021-07-24 10:50:00 120 mm[Hg] [facility] blood pressure diastolic 2021-07-24 10:50:00 57 mm[Hg] [facility] height 2021-04-27 13:30:00 59 [in_i] Commo n [facility] weight 2021-04-27 13:30:00 161.0 [lb_av] Co on [facility] temperature 2021-04-27 13:30:00 97.3 [degF] Com [facility] bmi 2021-04-27 13:30:00 32.51 kg/m2 Comm on [facility] oximetry 2021-04-27 13:30:00 97 % Commo n [facility] respiratory rate 2021-04-27 13:30:00 17 /min Common [facility] blood pressure systolic 2021-04-27 13:30:00 111 mm[Hg] [facility] blood pressure diastolic 2021-04-27 13:30:00 50 mm[Hg] [facility] height 2021-04-27 13:40:00 59 [in_i] Commo n [facility] weight 2021-04-27 13:40:00 161 [lb_av] Comm on [facility] temperature 2021-04-27 13:40:00 97.3 [degF] Com mon [facility] bmi 2021-04-27 13:40:00 32.51 kg/m2 Comm on [facility] oximetry 2021-04-27 13:40:00 97 % Commo n [facility] respiratory rate 2021-04-27 13:40:00 17 /min Common [facility] blood pressure systolic 2021-04-27 13:40:00 111 mm[Hg] [facility] blood pressure diastolic 2021-04-27 13:40:00 50 mm[Hg] [facility] height 2021-03-26 14:00:00 59 [in_i] Commo n [facility] weight 2021-03-26 14:00:00 164.4 [lb_av] Co mmon [facility] temperature 2021-03-26 14:00:00 96.8 [degF] Com mon [facility] bmi 2021-03-26 14:00:00 33.2 kg/m2 Commo n [facility] oximetry 2021-03-26 14:00:00 98 % Commo n [facility] respiratory rate 2021-03-26 14:00:00 18 /min Common [facility] blood pressure systolic 2021-03-26 14:00:00 108 mm[Hg] Common Spiri t [facility] blood pressure diastolic 2021-03-26 14:00:00 52 mm[Hg] [facility] height 2021-03-10 13:30:00 59 [in_i] Commo n [facility] weight 2021-03-10 13:30:00 158 [lb_av] Comm on [facility] temperature 2021-03-10 13:30:00 97.0 [degF] Com mon [facility] bmi 2021-03-10 13:30:00 31.91 kg/m2 Comm on [facility] oximetry 2021-03-10 13:30:00 98 % Commo n [facility] respiratory rate 2021-03-10 13:30:00 18 /min Common [facility] blood pressure systolic 2021-03-10 13:30:00 126 mm[Hg] Common [facility] blood pressure diastolic 2021-03-10 13:30:00 71 mm[Hg] [facility] height 2021-01-23 09:00:00 59 [in_i] Commo n [facility] weight 2021-01-23 09:00:00 158.8 [lb_av] Co mmon [facility] temperature 2021-01-23 09:00:00 97.2 [degF] Com mon [facility] bmi 2021-01-23 09:00:00 32.07 kg/m2 Comm on [facility] oximetry 2021-01-23 09:00:00 98 % Commo n [facility] respiratory rate 2021-01-23 09:00:00 17 /min [facility] blood pressure systolic 2021-01-23 09:00:00 131 mm[Hg] [facility] blood pressure diastolic 2021-01-23 09:00:00 59 mm[Hg] [facility] Procedures Procedure Date / Time Performed Performing Clinician Source ASSIGNMENT OF BENEFITS 2022-11-17 13:18:12 Docto r Unassigned, [place] [facility] EXTERNAL PROVIDER RECORDS 2022-08-10 05:01:00 Doctor Unassigned, [place] [facility] PATIENT FINANCIAL POLICY 2022-04-28 14:33:31 Doctor Unassigned, [place] [facility] URINALYSIS MICROSCOPIC 2021-11-11 19:24:00 Cayetano Godfrey [facility] URINE CULTURE 2021-11-11 19:24:00 Alpa Godfrey [facility] ASSIGNMENT OF BENEFITS 2021-11-11 18:03:09 Roshan coffey Unassigned, [place] [facility] REFERRAL- REQUEST/RESPONSE 2021-11-03 05:01:00 Doctor Unassigned, [place] [facility] Encounters Start Date/Time End Date/Time Encounter Type Admission Type Attending [facility] Care Facility Care Department Encounter ID Source 2023-07-21 16:31:00 [facility] [id number] [facility] 2023-03-10 15:35:00 Out[facility] [id number] [facility] 2022-09-23 14:51:00 [facility] [id number] [facility] 2022-01-22 11:14:02 Outpatient [facility] STL[facility] [id number] [facility] 2021-04-16 17:04:01 Outpatient Gallo, [facility] STL[facility] [id number] [facility] 2021-04-09 09:00:02 Outpatient Gallo, [facility] STL[facility] [id number] [facility] 2021-04-08 15:59:02 Outpatient Gallo, [facility] STL[facility] [id number] [facility] 2021-03-30 08:52:01 Outpatient Gallo, [facility] STL[facility] [id number] [facility] 2021-03-26 13:28:02 Outpatient Gallo, [facility] ST[facility] [id number] [facility] 2021-03-11 14:40:07 Outpatient Gallo, [facility] ST[facility] [id number] [facility] 2021-03-11 14:16:28 Outpatient Gallo, Roland [facility]LMLC STL[facility]C [id number] [facility] 2021-03-11 14:11:10 Outpatient [facility]Roland [facility] [id number] [facility] 2021-03-11 14:10:16 Outpatient GalloRoland whalen [facility] [id number] [facility] 2020-12-16 05:02:12 Outpatient R [facility] [id number] [facility] 2020-12-15 19:17:29 Outpatient [facility] [id number] [facility] 2023-08-17 10:30:00 2023-08-17 10:30:00 Outpatient R [facility] [id number] [facility] 2023-08-03 00:00:00 2023-08-03 00:00:00 (TEL) [facility] [id number] [facility] 2023-07-20 09:30:00 2023-07-20 10:00:00 Nurse Visit Nurse, Clc Urology Topher Celestin [facility] MEDICAL OFFICE BUILDING 1.2.840.114 350.1.13.10 4.2.7.2.686 [id number] [facility] 2023-07-20 09:30:00 2023-07-20 09:30:00 Outpatient R TOPHER CELESTIN [facility] [id number] [facility] 2023-07-18 00:00:00 2023-07-18 00:00:00 (TEL) ST[facility] STLMLC [id number] [facility] 2023-06-22 13:00:00 2023-06-22 13:15:00 Office Visit Alpa Godfrey [facility] MED[facility] OFF[facility] BUILDING 1.2.840.114 350.1.13.10 4.2.7.2.686 [id number] [facility] 2023-06-22 13:00:00 2023-06-22 13:00:00 Outpatient ALPA ALDRICH [facility] [id number] [facility] 2023-05-18 09:30:00 2023-05-18 10:00:00 Nurse Visit Nurse, Tara [facility] 1.2.840.114 350.1.13.10 4.2.7.2.686 [id number] [facility] 2023-05-18 09:30:00 2023-05-18 09:30:00 Outpatient R EPIFANIO [facility] [id number] [facility] 2023-04-20 09:30:00 2023-04-20 10:00:00 Nurse Visit [facility], [facility] MEDICAL [facility] BUILD[facility] 1.2.840.114 350.1.13.10 4.2.7.2.686 [id number] [facility] 2023-04-20 09:30:00 2023-04-20 09:30:00 Outpatient Jordyn GODFREY [facility] [id number] [facility] 2023-04-07 00:00:00 2023-04-07 00:00:00 (TEL) [facility] [id number] [facility] 2023-03-30 00:00:00 2023-03-30 00:00:00 (TEL) [facility] [id number] [facility] 2023-03-23 09:30:00 2023-03-23 10:00:00 Nurse Visit Nurse, Tara Steffen [facility] MEDICAL OFFICE BUILDING 1.2.840.114 350.1.13.10 4.2.7.2.686 [id number] [facility] 2023-03-23 09:30:00 2023-03-23 09:30:00 Outpatient Jordyn GODFREY [facility] [id number] [facility] 2023-03-10 00:00:00 2023-03-10 00:00:00 SUB ANNUAL [facility] WELLNESS VISIT [facility] [id number] [facility] 2023-03-10 00:00:00 2023-03-10 00:00:00 (TEL) [facility] [id number] [facility] 2023-03-10 00:00:00 2023-03-10 00:00:00 OFFICE VISIT ESTAB PT LEVEL 4 [facility] [id number] [facility] 2023-02-16 10:00:00 2023-02-16 10:30:00 Nurse Visit Nurse, Tara [facility] BUILD[facility] 1.2.840.114 350.1.13.10 4.2.7.2.686 [id number] [facility] 2023-02-16 10:00:00 2023-02-16 10:00:00 Outpatient [facility]ordyn [facility] [id number] [facility] 2023-01-19 10:00:00 2023-01-19 10:26:42 Outpatient ALPA ALDRICH [facility] [id number] [facility] 2023-01-19 10:00:00 2023-01-19 10:26:42 Nurse Visit Nurse, [facility] MEDICAL OFFICE BUILDING 1.2.840.114 350.1.13.10 4.2.7.2.686 [id number] [facility] 2022-12-15 09:30:00 2022-12-15 09:59:18 Outpatient Jordyn [facility] [id number] [facility] 2022-12-15 09:30:00 2022-12-15 09:59:18 Nurse Visit Nurse, [facility] Urology [facility] MEDICAL OFFICE BUILDING 1.2.840.114 350.1.13.10 4.2.7.2.686 [id number] [facility] 2022-12-09 00:00:00 2022-12-09 00:00:00 (TEL) ST[facility]C ST[facility] [id number] [facility] 2022-12-06 00:00:00 2022-12-06 00:00:00 OFFICE VISIT ESTAB PT LEVEL 4 [facility] [id number] [facility] 2022-11-17 08:30:00 2022-11-17 08:30:00 Outpatient Jordyn EPIFANIO [facility] [id number] [facility] 2022-11-17 00:00:00 2022-11-17 00:00:00 Orders Only Doctor Unassigned, [place] [facility] 1.2.840.114 350.1.13.10 4.2.7.2.686 [id number] [facility] 2022-10-20 09:30:00 2022-10-20 10:00:00 [facility] 1.2.840.114 350.1.13.10 4.2.7.2.686 [id number] [facility] 2022-10-20 09:30:00 2022-10-20 09:30:00 Outpatient Jordyn GODFREY [facility] [id number] [facility] 2022-09-23 00:00:00 2022-09-23 00:00:00 (TEL) STLMLC STL[facility] [id number] [facility] 2022-09-23 00:00:00 2022-09-23 00:00:00 OFFICE VISIT ESTAB PT LEVEL 3 STL[facility] STL[facility] [id number] [facility] 2022-09-22 10:00:00 2022-09-22 10:30:00 Nurse Visit Nurse, [facility] Urology Unknown, Attending [facility] MEDICAL OFFICE BUILDING 1.2.840.114 350.1.13.10 4.2.7.2.686 [id number] [facility] 2022-09-22 10:00:00 2022-09-22 10:00:00 Outpatient ALPA ALDRICH [facility] [id number] [facility] 2022-08-30 00:00:00 2022-08-30 00:00:00 OFFICE VISIT ESTAB PT LEVEL 4 [facility] [id number] [facility] 2022-08-25 10:00:00 2022-08-25 10:30:00 Nurse Visit Nurse, [facility] OFF[facility] BUILD[facility] 1.2.840.114 350.1.13.10 4.2.7.2.686 [id number] [facility] 2022-08-25 10:00:00 2022-08-25 10:00:00 Outpatient Jordyn GODFREY [facility] [id number] [facility] 2022-08-25 00:00:00 2022-08-25 00:00:00 Telephone [facility] MEDICAL OFFICE BUILDING 1.2.840.114 350.1.13.10 4.2.7.2.686 [id number] [facility] 2022-08-25 00:00:00 2022-08-25 00:00:00 Patient Secure Msg Doctor Unassigned, [place] [facility] MEDICAL OFFICE BUILDING 1.2.840.114 350.1.13.10 4.2.7.2.686 [id number] [facility] 2022-08-10 00:00:00 2022-08-10 00:00:00 Telephone [facility] 1.2.840.114 350.1.13.10 4.2.7.2.686 [id number] [facility] 2022-08-10 00:00:00 2022-08-10 00:00:00 Orders Only Doctor Unassigned, [place] [facility] 1.2.840.114 350.1.13.10 4.2.7.2.686 [id number] [facility] 2022-08-10 00:00:00 2022-08-10 00:00:00 Telephone [facility] MEDICAL OFFICE BUILDING 1.2.840.114 350.1.13.10 4.2.7.2.686 [id number] [facility] 2022-07-21 10:00:00 2022-07-21 10:30:00 Nurse Visit Nurse, [facility] 1.2.840.114 350.1.13.10 4.2.7.2.686 [id number] [facility] 2022-07-21 10:00:00 2022-07-21 10:00:00 Outpatient R EPIFANIO [facility] [id number] [facility] 2022-06-23 13:00:00 2022-06-23 13:15:00 Office Visit [facility] MEDICAL OFFICE BUILDING 1.2.840.114 350.1.13.10 4.2.7.2.686 [id number] [facility] 2022-06-23 13:00:00 2022-06-23 13:00:00 Outpatient R EPIFANIO [facility] [id number] [facility] 2022-06-08 00:00:00 2022-06-08 00:00:00 (TEL) STLMLC STLMLC [id number] [facility] 2022-05-26 14:00:00 2022-05-26 14:00:00 Outpatient R EPIFANIO [facility] [id number] [facility] 2022-05-26 14:00:00 2022-05-26 14:00:00 Nurse Visit Nurse, [facility] 1.2.840.114 350.1.13.10 4.2.7.2.686 [id number] [facility] 2022-05-05 00:00:00 2022-05-05 00:00:00 [facility]EL[facility] [id number] [facility] 2022-04-30 00:00:00 2022-04-30 00:00:00 OFFICE VISIT ESTAB PT LEVEL 4 [facility] [id number] [facility] 2022-04-30 00:00:00 2022-04-30 00:00:00 SUB ANNUAL [facility] WELLNESS VISIT [facility] [id number] [facility] 2022-04-29 00:00:00 2022-04-29 00:00:00 (TEL) STLC STLC [id number] [facility] 2022-04-28 10:00:00 2022-04-28 10:04:15 Outpatient R EPIFANIO [facility] [id number] [facility] 2022-04-28 10:00:00 2022-04-28 10:04:15 Nurse Visit Nurse, [facility] Urology [facility] MEDICAL OFFICE BUILDING 1.2.840.114 350.1.13.10 4.2.7.2.686 [id number] [facility] 2022-04-28 00:00:00 2022-04-28 00:00:00 Orders Only Doctor Unassigned, [facility] 1.2.840.114 350.1.13.10 4.2.7.2.686 [id number] [facility] 2022-04-21 00:00:00 2022-04-21 00:00:00 (TEL) [facility] [id number] [facility] 2022-04-20 00:00:00 2022-04-20 00:00:00 (TEL) STLC STLC [id number] [facility] 2022-04-20 00:00:00 2022-04-20 00:00:00 (TEL) STLMLC STLC [id number] [facility] 2022-03-31 10:30:00 2022-03-31 11:00:00 Nurse Visit Nurse, [facility] Unknown, Attending [facility] MEDICAL OFFICE BUILDING 1.2.840.114 350.1.13.10 4.2.7.2.686 [id number] [facility] 2022-03-31 10:30:00 2022-03-31 10:30:00 Outpatient Jordyn EPIFANIO [facility] [id number] [facility] 2022-03-03 11:00:00 2022-03-03 11:18:57 Nurse Visit Nurse, Melani Denise [facility] 1.2.840.114 350.1.13.10 4.2.7.2.686 [id number] [facility] 2022-03-03 11:00:00 2022-03-03 11:00:00 Outpatient Jordyn EPIFANIO, [facility] [id number] [facility] 2022-02-03 13:00:00 2022-02-03 13:57:24 [facility] 1.2.840.114 350.1.13.10 4.2.7.2.686 [id number] [facility] 2022-02-03 13:00:00 2022-02-03 13:00:00 Outpatient ESTRELLA SMITH [facility] [id number] [facility] 2022-02-02 13:00:00 2022-02-02 13:00:00 Outpatient JAMAR JOSEPH [facility] [id number] [facility] 2022-01-06 13:00:00 2022-01-06 13:58:14 Nurse Visit Nurse, Melani Denise [facility] MEDICAL OFFICE BUILDING 1..840.114 350.1.13.10 4.2.7.2.686 [id number] [facility] 2022-01-06 13:00:00 2022-01-06 13:00:00 Outpatient Jordyn GODFREY [facility] [id number] [facility] 2021-12-15 14:30:00 2021-12-15 14:45:00 Office Visit Faustino Ralph [facility] 1..840.114 350.1.13.10 4.2.7.2.686 [id number] [facility] 2021-12-15 14:30:00 2021-12-15 14:30:00 Outpatient FAUSTINO PICKENS [facility] [id number] [facility] 2021-12-09 13:00:00 2021-12-09 13:50:42 Outpatient Jordyn GODFREY [facility] [id number] [facility] 2021-12-09 13:00:00 2021-12-09 13:50:42 Nurse Visit Nurse, Melani Denise [facility] MEDICAL OFFICE BUILDING 1..840.114 350.1.13.10 4.2.7.2.686 [id number] [facility] 2021-12-09 00:00:00 2021-12-09 00:00:00 Miladys [facility] MEDICAL OFFICE BUILDING 1..840.114 350.1.13.10 4.2.7.2.686 [id number] [facility] 2021-12-03 00:00:00 2021-12-03 00:00:00 (TEL) STLMLC STLMLC [id number] [facility] 2021-11-16 00:00:00 2021-11-16 00:00:00 Telephone [facility] MEDICAL OFFICE BUILDING 1.2.840.114 350.1.13.10 4.2.7.2.686 [id number] [facility] 2021-11-11 13:00:00 2021-11-11 15:58:43 Nurse Visit Nurse, Melani Denise [facility] 1.2.840.114 350.1.13.10 4.2.7.2.686 [id number] [facility] 2021-11-11 13:00:00 2021-11-11 13:00:00 [facility] [id number] 2021-11-11 00:00:00 2021-11-11 00:00:00 Orders Only Doctor Unassigned, [facility] [place] [address]687.2.840.114 350.1.13.10 4.2.7.2.686 [id number] [facility] 2021-11-03 00:00:00 2021-11-03 00:00:00 Orders Only Doctor Unassigned, [facility] 1.2.840.114 350.1.13.10 4.2.7.2.686 [id number] [facility] 2021-11-02 00:00:00 2021-11-02 00:00:00 (TEL) STLMLC STLMLC [id number] [facility] 2021-10-27 00:00:00 2021-10-27 00:00:00 OFFICE VISIT ESTAB PT LEVEL 4 STLMLC STLMLC [id number] [facility] 2021-10-27 00:00:00 2021-10-27 00:00:00 (TEL) STLMLC STLMLC [id number] [facility] 2021-10-14 16:45:00 2021-10-14 16:45:00 Office Visit [facility] MEDICAL OFFICE BUILDING 1.2.840.114 350.1.13.10 4.2.7.2.686 [id number] [facility] 2021-10-14 16:45:00 2021-10-14 15:48:20 Outpatient R EPIFANIO [facility] [id number] [facility] 2021-10-14 16:45:00 2021-10-14 15:48:20 Outpatient Jordyn GODFREY [facility] [id number] [facility] 2021-09-28 00:00:00 2021-09-28 00:00:[address] [facility] 1.2.840.114 350.1.13.10 4.2.7.2.686 [id number] [facility] 2021-09-16 15:30:00 2021-09-16 16:00:00 Nurse Visit Nurse, Melani Smith [facility] MEDICAL OFFICE BUILDING 1.2.840.114 350.1.13.10 4.2.7.2.686 [id number] [facility] 2021-09-16 15:30:00 2021-09-16 15:30:00 Outpatient ESTRELLA SMITH [facility] [id number] [facility] 2021-09-16 15:30:00 2021-09-16 15:30:00 Outpatient ESTRELLA SMITH [facility] [id number] [facility] 2021-09-14 00:00:00 2021-09-14 00:00:00 Outpatient TENA SERVIN [facility] [id number] 2021-08-19 13:30:00 2021-08-19 14:36:36 Nurse Visit Nurse, Melani Smith [facility] MEDICAL OFFICE BUILDING 1.2.840.114 350.1.13.10 4.2.7.2.686 [id number] [facility] 2021-08-19 13:30:00 2021-08-19 13:30:00 Outpatient R АЛЕКСАНДР ESTRELLA [facility] [id number] [facility] 2021-07-28 13:15:00 2021-07-28 14:01:42 Outpatient R [facility] [id number] [facility] 2021-07-28 13:15:00 2021-07-28 14:01:42 Office Visit [facility] MEDICAL OFFICE BUILDING 1.2.840.114 350.1.13.10 4.2.7.2.686 [id number] [facility] 2021-07-27 00:00:00 2021-07-27 00:00:00 (TEL) STLC STLC [id number] [facility] 2021-07-24 00:00:00 2021-07-24 00:00:00 OFFICE VISIT ESTAB PT LEVEL 4 STLMLC STLC [id number] [facility] 2021-07-22 14:29:30 2021-07-22 23:59:00 Outpatient R JAMAR LEMUS [facility] [id number] [facility] 2021-07-22 14:29:30 2021-07-22 23:59:00 Hospital Encounter [facility] 1.2.840.114 350.1.13.10 4.2.7.2.686 [id number] [facility] 2021-07-22 13:30:00 2021-07-22 14:26:35 Outpatient ALPA ALDRICH [facility] [id number] [facility] 2021-07-22 13:30:00 2021-07-22 14:26:35 Office Visit [facility] MEDICAL OFFICE BUILDING 1.2.840.114 350.1.13.10 4.2.7.2.686 [id number] [facility] 2021-07-22 13:30:00 2021-07-22 14:26:35 Outpatient R EPIFANIO [facility] [id number] [facility] 2021-07-14 14:30:00 2021-07-14 14:36:48 Outpatient R ALLANJAMAR [facility] [id number] [facility] 2021-07-14 14:30:00 2021-07-14 14:36:48 Office Visit Jamar Lemus [facility] MEDICAL OFFICE BUILDING 1.2.840.114 350.1.13.10 4.2.7.2.686 [id number] [facility] 2021-07-07 00:00:00 2021-07-07 00:00:00 (TEL) [facility] [id number] [facility] 2021-07-06 00:00:00 2021-07-06 00:00:00 Telephone [facility] MEDICAL OFFICE BUILDING 1.2.840.114 350.1.13.10 4.2.7.2.686 [id number] [facility] 2021-06-29 00:00:00 2021-06-29 00:00:00 Telephone [facility] MEDICAL OFFICE BUILDING 1.2.840.114 350.1.13.10 4.2.7.2.686 [id number] [facility] 2021-06-24 13:30:00 2021-06-24 17:00:44 Outpatient R EPIFANIO [facility] [id number] [facility] 2021-06-24 13:30:00 2021-06-24 13:45:00 Office Visit [facility] MEDICAL OFFICE BUILDING 1.2.840.114 350.1.13.10 4.2.7.2.686 [id number] [facility] 2021-06-16 09:30:00 2021-06-16 09:30:00 Outpatient Jordyn GODFREY [facility] [id number] [facility] 2021-06-16 09:30:00 2021-06-16 09:30:00 Outpatient Jordyn GODFREY [facility] [id number] [facility] 2021-06-09 09:45:00 2021-06-09 11:04:20 Outpatient Jordyn GODFREY [facility] [id number] [facility] 2021-06-09 09:45:00 2021-06-09 11:04:20 Outpatient Jordyn GODFREY [facility] [id number] [facility] 2021-06-09 09:45:00 2021-06-09 11:04:20 [facility] 1.2.840.114 350.1.13.10 4.2.7.2.686 [id number] [facility] 2021-06-09 09:45:00 2021-06-09 11:04:20 Outpatient ALPA ALDRICH [facility] [id number] [facility] 2021-06-09 09:45:00 2021-06-09 11:04:20 Outpatient Jordyn EPIFANIO [facility] [id number] [facility] 2021-06-04 13:45:00 2021-06-04 14:33:13 Outpatient Jordyn EPIFANIO [facility] [id number] [facility] 2021-06-04 13:45:00 2021-06-04 14:33:13 Outpatient Jordyn EPIFANIO [facility] [id number] [facility] 2021-06-04 13:45:00 2021-06-04 14:33:13 Office Visit Epifanio [facility] 1.2.840.114 350.1.13.10 4.2.7.2.686 [id number] [facility] 2021-05-13 00:00:00 2021-05-13 00:00:00 Telephone Epifanio [facility] 1.2.840.114 350.1.13.10 4.2.7.2.686 [id number] [facility] 2021-05-07 13:00:00 2021-05-07 15:08:05 Outpatient R EPIFANIO [facility] [id number] [facility] 2021-05-07 13:00:00 2021-05-07 15:08:05 Office Visit Epifanio [facility] 1.2.840.114 350.1.13.10 4.2.7.2.686 [id number] [facility] 2021-05-07 13:00:00 2021-05-07 15:08:05 Outpatient R EPIFANIO [facility] [id number] [facility] 2021-05-07 00:00:00 2021-05-07 00:00:00 Orders Only Doctor Unassigned, [facility] 1.2.840.114 350.1.13.10 4.2.7.2.686 [id number] [facility] 2021-04-27 00:00:00 2021-04-27 00:00:00 OFFICE VISIT ESTAB PT [facility]EVEL 4 [facility] [id number] [facility] 2021-04-27 00:00:00 2021-04-27 00:00:00 (TEL) [facility] [id number] [facility] 2021-04-27 00:00:00 2021-04-27 00:00:00 SUB ANNUAL [facility] WELLNESS VISIT STLC STLC [id number] [facility] 2021-04-17 00:00:00 2021-04-17 00:00:00 (TEL) STLC STLC [id number] [facility] 2021-04-14 15:00:00 2021-04-14 16:01:53 Outpatient Jordyn EPIFANIO, [facility] [id number] [facility] 2021-04-14 15:00:00 2021-04-14 16:01:53 [facility] 1..840.114 350.1.13.10 4.2.7.2.686 [id number] [facility] 2021-04-14 15:00:00 2021-04-14 16:01:53 Outpatient Jordyn GODFREY [facility] [id number] [facility] 2021-04-14 15:00:00 2021-04-14 16:01:53 Outpatient Jordyn GODFREY [facility] [id number] [facility] 2021-04-08 00:00:00 2021-04-08 00:00:00 (TEL) [facility] [id number] [facility] 2021-04-03 15:00:00 2021-04-03 15:00:00 Nurse Visit Nurse, [facility] Surgery Karolina Mcfarlnad [facility] 1.2.840.114 350.1.13.10 4.2.7.2.686 [id number] [facility] 2021-04-03 15:00:00 2021-04-03 14:31:18 Outpatient KAROLINA KELLY [facility] [id number] [facility] 2021-04-03 15:00:00 2021-04-03 14:31:18 Outpatient KAROLINA KELLY [facility] [id number] [facility] 2021-04-01 09:00:00 2021-04-01 10:54:30 Outpatient R KAROLINA BOONE [facility] [id number] [facility] 2021-04-01 09:00:00 2021-04-01 10:54:30 Office Visit Gilberto Karolina Brand [facility] 1..840.114 350.1.13.10 4.2.7.2.686 [id number] [facility] 2021-04-01 09:00:00 2021-04-01 10:54:30 Outpatient R KAROLINA BOONE [facility] [id number] [facility] 2021-04-01 09:00:00 2021-04-01 10:54:30 Outpatient R KAROLINA BOONE [facility] [id number] [facility] 2021-03-31 00:00:00 2021-03-31 00:00:00 Orders Only Doctor Unassigned, [facility] .2.840.114 350.1.13.10 4.2.7.2.686 [id number] [facility] 2021-03-30 00:00:00 2021-03-30 00:00:00 (TEL) STLC STLC [id number] [facility] 2021-03-30 00:00:00 2021-03-30 00:00:00 (TEL) STLMLC STLMLC [id number] [facility] 2021-03-30 00:00:00 2021-03-30 00:00:00 (TEL) STLMLC STLMLC [id number] [facility] 2021-03-26 00:00:00 2021-03-26 00:00:00 (HOSP F/U) Hospital Follow Up STLMLC STLMLC [id number] [facility] 2021-03-25 00:00:00 2021-03-25 00:00:00 (TEL) STLMLC STLMLC [id number] [facility] 2021-03-19 00:00:00 2021-03-19 00:00:00 (TEL) STLMLC STLMLC [id number] [facility] 2021-03-18 00:00:00 2021-03-18 00:00:00 (TEL) STLMLC STLMLC [id number] [facility] 2021-03-13 00:00:00 2021-03-13 00:00:00 (TEL) STLMLC STLMLC [id number] [facility] 2021-03-10 00:00:00 2021-03-10 00:00:00 OFFICE VISIT ESTAB PT LEVEL 2 STLMLC STLMLC [id number] [facility] 2021-03-09 00:00:00 2021-03-09 00:00:00 (TEL) STLMLC STLMLC [id number] [facility] 2021-01-23 00:00:00 2021-01-23 00:00:00 OFFICE VISIT NEW PT LEVEL 4 STLMLC STLMLC [id number] [facility] 2020-12-24 00:00:00 2020-12-24 00:00:00 (TEL) STLMLC STLMLC [id number] [facility] 2020-12-22 00:00:00 2020-12-22 00:00:00 (TEL) STLMLC STLMLC [id number] [facility] 2020-11-27 07:37:00 2020-11-27 10:50:00 Hospital Encounter Khoi Lan [facility] 1.2.840.114 350.1.13.10 4.2.7.2.686 [id number] [facility] 2020-11-27 09:51:00 2020-11-27 10:28:00 Surgery Khoi Lan [facility] 1.2.840.114 350.1.13.10 4.2.7.2.686 [id number] [facility] 2020-11-25 11:30:00 2020-11-25 11:30:00 Outpatient R KHOI LAN [facility] [id number] [facility] 2020-11-25 11:13:10 2020-11-25 11:28:10 Laboratory Only Only, Adc Test Khoi Lan [facility] 1.2.840.114 350.1.13.10 4.2.7.2.686 [id number] [facility] 2020-11-25 00:00:00 2020-11-25 00:00:00 Orders Only Doctor Unassigned, [facility] 1.2.840.114 350.1.13.10 4.2.7.2.686 [id number] [facility] 2020-11-11 00:00:00 2020-11-11 00:00:00 Zehra Senior [facility] Building 1.2840.114 350.1.13.10 4.2.7.2.686 [id number] [facility] 2020-10-23 06:56:00 2020-10-23 10:08:00 Hospital Encounter Khoi Lan [facility] Surgical [place] 1.2.840.114 350.1.13.10 4.2.7.2.686 [id number] [facility] 2020-10-23 09:07:00 2020-10-23 09:44:00 Surgery Khoi Lan [facility] [place] 1.2840.114 350.1.13.10 4.2.7.2.686 [id number] [facility] 2020-10-21 11:48:01 2020-10-21 12:03:01 Laboratory Only Only, Adc Test Khoi Lan [facility] 1.84.114 350.1.13.10 4.2.7.2.686 [id number] [facility] 2020-10-21 11:45:00 2020-10-21 11:45:00 Outpatient R [facility] [id number] [facility] 2020-10-16 13:45:00 2020-10-16 13:45:00 Outpatient R KHOI LAN [facility] [id number] [facility] 2020-10-16 12:13:01 2020-10-16 12:28:01 Fairing Worker Visit Pob, [facility] Lab Main [facility] 1.84.114 350.1.13.10 4.2.7.2.686 [id number] [facility] 2020-10-16 00:00:00 2020-10-16 00:00:00 Orders Only Doctor Unassigned, [facility] 1..114 350.1.13.10 4.2.7.2.686 [id number] [facility] 2020-04-12 08:45:00 2020-04-12 08:45:00 Outpatient [facility] [id number] [facility] 2020-04-05 08:45:00 2020-04-05 08:45:00 Outpatient [facility] [id number] [facility] 2020-03-15 10:30:00 2020-03-15 10:30:00 Outpatient [facility] [id number] [facility] 2019-09-29 00:00:00 2019-09-29 00:00:00 Zehra Senior [facility] Professio nal Building 1.840.114 350.1.13.10 4.2.7.2.686 [id number] 2019-09-29 00:00:00 2019-09-29 00:00:00 Refill Zehra Israel [facility] Building 1.2.840.114 350.1.13.10 4.2.7.2.686 [id number] [facility] 2019-09-08 00:00:00 2019-09-08 00:00:00 Refill Zehra Israel [facility] Building 1.2.840.114 350.1.13.10 4.2.7.2.686 [id number] 2019-09-08 00:00:00 2019-09-08 00:00:00 Refill Zehra Israel [facility] 1.2.840.114 350.1.13.10 4.2.7.2.686 [id number] [facility] 2019-08-16 00:00:00 2019-08-16 00:00:00 Orders Only Doctor Unassigned, [facility] 1.2.840.114 350.1.13.10 4.2.7.2.686 [id number] 2019-08-16 00:00:00 2019-08-16 00:00:00 Orders Only Doctor Unassigned, [facility] 1.2.840.114 350.1.13.10 4.2.7.2.686 [id number] [facility] 2019-08-10 12:12:21 2019-08-10 12:52:21 Office Visit Zehra Israel [facility] 1.2.840.114 350.1.13.10 4.2.7.2.686 [id number] [facility] 2019-08-10 12:12:21 2019-08-10 12:52:21 Office Visit Zehra Israel [facility] Professio nal Building 1.2.840.114 350.1.13.10 4.2.7.2.686 [id number] 2019-08-10 12:20:00 2019-08-10 12:20:00 Outpatient R ZEHRA ISRAEL [facility] [id number] [facility] 2019-08-07 00:00:00 2019-08-07 00:00:00 Telephone Zehra Israel [facility] 1.2.840.114 350.1.13.10 4.2.7.2.686 [id number] 231 [id number] [facility] 2019-07-20 00:00:00 2019-07-20 00:00:00 Telephone Zehra Israel [facility] 1.2.840.114 350.1.13.10 4.2.7.2.686 [id number] 231 [id number] [facility] 2019-07-19 00:00:00 2019-07-19 00:00:00 Telephone Zehra Israel [facility] 1.2.840.114 350.1.13.10 4.2.7.2.686 [id number] [facility] 2019-07-16 00:00:00 2019-07-16 00:00:00 Refill Zehra Israel [facility] 1.2.840.114 350.1.13.10 4.2.7.2.686 [id number] 231 [id number] [facility] 2019-05-02 00:00:00 2019-05-02 00:00:00 Refill Zehra Israel [facility] 1.2.840.114 350.1.13.10 4.2.7.2.686 [id number] [facility] 2019-04-24 00:00:00 2019-04-24 00:00:00 Telephone Zehra Israel [facility] 1.2.840.114 350.1.13.10 4.2.7.2.686 [id number] 231 [id number] [facility] 2019-04-20 09:35:10 2019-04-20 11:39:26 Office Visit Zehra Israel [facility] 1.2.840.114 350.1.13.10 4.2.7.2.686 [id number] [facility] 2019-04-20 09:40:00 2019-04-20 09:40:00 Outpatient R [facility] [id number] [facility] 2019-04-20 00:00:00 2019-04-20 00:00:00 Orders Only Doctor Unassigned, [place] [facility] [id number] 350.1.13.10 4.2.7.2.686 [id number] [facility] 2019-01-23 00:00:00 2019-01-23 00:00:00 Orders Only Doctor Unassigned, [place] [facility] 1.2840.114 350.1.13.10 4.2.7.2.686 [id number] [facility] 2018-10-20 00:00:00 2018-10-20 00:00:00 Refill [facility] [id number] 350.1.13.10 4.2.7.2.686 [id number] [facility] 2018-10-19 00:00:00 2018-10-19 00:00:00 Telephone [facility] [id number] 350.1.13.10 4.2.7.2.686 [id number] [facility] 2018-09-28 00:00:00 2018-09-28 00:00:00 Refill Zehra [facility] 1.2.840.114 350.1.13.10 4.2.7.2.686 [id number] [facility] 2018-09-08 00:00:00 2018-09-08 00:00:00 Zehra [facility] [id number] 350.1.13.10 4.2.7.2.686 [id number] [facility] 2018-09-08 00:00:00 2018-09-08 00:00:00 Refill Zehra [facility] 1.2.840.114 350.1.13.10 4.2.7.2.686 [id number] [facility] Results Test Description Test Time Test Comments Results Result Co mments Source LIPID PANEL WITH REFLEX DIRECT [id number] 00:00:00* Test Item Value Reference Range Interpretation Comme nts CALC LDL CHOL (test code = 76235-3) 29 MG/DL See_Comment [Automated immoture.be] The system which generated this result transmitted reference range: <100 MG/DL. The reference range was not used to interpret this result as normal/abnormal. CHOLESTEROL (test code = 2093-3) 95 MG/DL See_Comment [Automated immoture.be] The system which generated this result transmitted reference range: <200 MG/DL. The reference range was not used to interpret this result as normal/abnormal. HDL CHOLESTEROL (test code = 2085-9) 47 MG/DL See_Comment [Automated immoture.be] The system which generated this result transmitted reference range: >39 MG/DL. The reference range was not used to interpret this result as normal/abnormal. RISK RATIO LDL/HDL (test code = 11209-6) 0.62 RATIO See_Comment [Automated message] The system which generated this result transmitted reference range: <3.22 RATIO. The reference range was not used to interpret this result as normal/abnormal. TRIGLYCERIDES (test code = 2571-8) 109 MG/DL See_Comment [Automated [employer]] The system which generated this result transmitted reference range: <150 MG/DL. The reference range was not used to interpret this result as normal/abnormal. TSH + FREE T4 [id number] 00:00:00* Test Item Value Reference Range Interpretation Comme nts FREE T4 (THYROXINE) (test code = 3024-7) 2.09 NG/DL See_Comment H [Automated message] The system which generated this result transmitted reference range: 0.80-1.90 NG/DL. The reference range was not used to interpret this result as normal/abnormal. TSH, THIRD GENERATION (test code = 88321-0) 0.498 UIU/ML See_Comment [Automated [employer]] The system which generated this result transmitted reference range: 0.400-4.100 UIU/ML. The reference range was not used to interpret this result as normal/abnormal. ALBUMIN/CREATININE RATIO, RANDOM [id number] 00:00:00* Test Item Value Reference Range Interpretation Comme nts ALBUMIN, URINE, RANDOM (test code = 91950-0) 6.7 MG/DL NOT ESTAB MG/DL CALC ALBUMIN/CREAT, RND (test code = 06758-0) 74 MG/G See_Comment H [Automated [employer]] The system which generated this result transmitted reference range: <30 MG/G. The reference range was not used to interpret this result as normal/abnormal. CREATININE, URINE, CONC. (test code = 2161-8) 90.8 MG/DL NOT ESTAB MG/DL COMPREHENSIVE METABOLIC [id number] 00:00:00* Test Item Value Reference Range Interpretation Comme nts ALBUMIN (test code = 1751-7) 4.3 G/DL See_Comment [Automated [employer]] The system which generated this result transmitted reference range: 3.5-5.2 G/DL. The reference range was not used to interpret this result as normal/abnormal. ALKALINE PHOSPHATASE (test code = 6768-6) 61 U/L See_Comment [Automated message] The system which [...] as normal/abnormal. BUN (test code = 3094-0) 15 MG/DL See_Comment [Automated messa ge] The system which generated this result transmitted reference range: 8-23 MG/DL. The reference range was not used to interpret this result as normal/abnormal. CALCIUM (test code = 90902-5) 9.9 MG/DL See_Comment [Automated messa ge] The system which generated this result transmitted reference range: 8.5-10.5 MG/DL. The reference range was not used to interpret this result as normal/abnormal. CALC A/G RATIO (test code = 1759-0) 1.7 RATIO See_Comment [Automated messa ge] The system which generated this result transmitted reference range: 1.0-2.6 RATIO. The reference range was not used to interpret this result as normal/abnormal. CALC BUN/CREAT (test code = 3097-3) 18 RATIO See_Comment [Automated messa ge] The system which generated this result transmitted reference range: 6-28 RATIO. The reference range was not used to interpret this result as normal/abnormal. CALC GLOBULIN (test code = 90007-8) 2.6 G/DL See_Comment [Automated messa ge] The system which generated this result transmitted reference range: 1.9-3.7 G/DL. The reference range was not used to interpret this result as normal/abnormal. CARBON DIOXIDE (test code = 1963-8) 25 MEQ/L See_Comment [Automated messa ge] The system which generated this result transmitted reference range: 19-31 MEQ/L. The reference range was not used to interpret this result as normal/abnormal. CHLORIDE (test code = 2075-0) 98 MEQ/L See_Comment [Automated messa ge] The system which generated this result transmitted reference range: 95-107 MEQ/L. The reference range was not used to interpret this result as normal/abnormal. CREATININE (test code = 2160-0) 0.84 MG/DL See_Comment [Automated messa ge] The system which generated this result transmitted reference range: 0.60-1.30 MG/DL. The reference range was not used to interpret this result as normal/abnormal. eGFR (2020 CKD-EPI) (test code = 48065-3) 71 ML/MIN/1.73 See_Comment [Automated messa ge] The system which generated this result transmitted reference range: >60 ML/MIN/1.73. The reference range was not used to interpret this result as normal/abnormal. GLUCOSE (test code = 1558-6) 125 MG/DL See_Comment H [Automated messa ge] The system which generated this result transmitted reference range: 70-99 MG/DL. The reference range was not used to interpret this result as normal/abnormal. POTASSIUM (test code = 2823-3) 4.6 MEQ/L See_Comment [Automated messa ge] The system which generated this result transmitted reference range: 3.5-5.4 MEQ/L. The reference range was not used to interpret this result as normal/abnormal. PROTEIN, TOTAL (test code = 2885-2) 6.9 G/DL See_Comment [Automated messa ge] The system which generated this result transmitted reference range: 6.1-8.3 G/DL. The reference range was not used to interpret this result as normal/abnormal. AST (test code = 1920-8) 8 U/L See_Comment L [Automated messa ge] The system which generated this result transmitted reference range: 9-40 U/L. The reference range was not used to interpret this result as normal/abnormal. ALT (test code = 1742-6) 5 U/L See_Comment [Automated messa ge] The system which generated this result transmitted reference range: 5-40 U/L. The reference range was not used to interpret this result as normal/abnormal. SODIUM (test code = 2951-2) 138 MEQ/L See_Comment [Automated messa ge] The system which generated this result transmitted reference range: 133-146 MEQ/L. The reference range was not used to interpret this result as normal/abnormal. PATHOLOGIST SMEAR [id number] 00:00:00* Test Item Value Reference Range Interpretation Comme nts BASOPHILS (test code = 52505-6) 0.7 % COMMENTS (test code = 25877-1) (NOTE) DIAGNOSIS: (test code = 59686-0) (NOTE) EOSINOPHILS (test code = 86840-4) 1.3 % HEMATOCRIT (test code = 11392-5) 36.0 % See_Comment [Automated messa ge] The system which generated this result transmitted reference range: 34.0-45.0 %. The reference range was not used to interpret this result as normal/abnormal. HEMOGLOBIN (test code = 718-7) 11.8 G/DL See_Comment [Automated messa ge] The system which generated this result transmitted reference range: 11.5-15.5 G/DL. The reference range was not used to interpret this result as normal/abnormal. LYMPHOCYTES (test code = 53715-7) 20.9 % MCH (test code = 51241-8) 30.7 PG See_Comment [Automated messa ge] The system which generated this result transmitted reference range: 25.0-33.0 PG. The reference range was not used to interpret this result as normal/abnormal. MCHC (test code = 35904-2) 32.8 G/DL See_Comment [Automated messa ge] The system which generated this result transmitted reference range: 31.0-36.0 G/DL. The reference range was not used to interpret this result as normal/abnormal. MCV (test code = 66522-6) 93.8 fL See_Comment [Automated messa ge] The system which generated this result transmitted reference range: 80.0-99.0 fL. The reference range was not used to interpret this result as normal/abnormal. MICROSCOPIC DESCRIPTION: (test code = 07540-4) (NOTE) MONOCYTES (test code = 76285-6) 6.6 % NEUTROPHILS (test code = 87489-6) 70.0 % NUCLEATED RBCS (test code = 45900-9) 0.0 /100 WBC'S See_Comment [Automated messa ge] The system which generated this result transmitted reference range: 0.0 /100 WBC'S. The reference range was not used to interpret this result as normal/abnormal. PATHOLOGIST: (test code = 71345-1) (NOTE) PLATELET COUNT (test code = 62676-9) 289 K/UL See_Comment [Automated messa ge] The system which generated this result transmitted reference range: 130-400 K/UL. The reference range was not used to interpret this result as normal/abnormal. RBC (test code = 95223-6) 3.84 M/UL See_Comment [Automated messa ge] The system which generated this result transmitted reference range: 3.80-5.40 M/UL. The reference range was not used to interpret this result as normal/abnormal. RDW (test code = 81476-9) 13.6 % See_Comment [Automated messa ge] The system which generated this result transmitted reference range: 11.5-15.0 %. The reference range was not used to interpret this result as normal/abnormal. WBC (test code = 08672-7) 8.5 K/UL See_Comment [Automated messa ge] The system which generated this result transmitted reference range: 3.5-11.0 K/UL. The reference range was not used to interpret this result as normal/abnormal. [id number] 00:00:00* Test Item Value Reference Range Interpretation Comme nts FERRITIN (test code = 90251-5) 50 NG/ML See_Comment [Automated messa ge] The system which generated this result transmitted reference range: 13-200 NG/ML. The reference range was not used to interpret this result as normal/abnormal. CBC W/AUTO [id number] 00:00:00* Test Item Value Reference Range Interpretation Comme nts NUCLEATED RBCS (test code = 69984-2) 0.0 /100 WBC'S See_Comment [Automated messa ge] The system which generated this result transmitted reference range: 0.0 /100 WBC'S. The reference range was not used to interpret this result as normal/abnormal. ABSOLUTE EOSINOPHILS (test code = 42036-6) 0.18 K/UL See_Comment [Automated messa ge] The system which generated this result transmitted reference range: 0.00-0.50 K/UL. The reference range was not used to interpret this result as normal/abnormal. ABSOLUTE LYMPHOCYTES (test code = 19096-8) 2.32 K/UL See_Comment [Automated messa ge] The system which generated this result transmitted reference range: 1.00-4.00 K/UL. The reference range was not used to interpret this result as normal/abnormal. ABSOLUTE MONOCYTES (test code = 89885-9) 0.60 K/UL See_Comment [Automated messa ge] The system which generated this result transmitted reference range: 0.20-1.00 K/UL. The reference range was not used to interpret this result as normal/abnormal. ABSOLUTE NEUTROPHILS (test code = 48886-9) 5.81 K/UL See_Comment [Automated messa ge] The system which generated this result transmitted reference range: 1.50-7.50 K/UL. The reference range was not used to interpret this result as normal/abnormal. BASOPHILS (test code = 67316-9) 0.9 % EOSINOPHILS (test code = 77026-0) 2.0 % HEMATOCRIT (test code = 60293-3) 37.9 % See_Comment [Automated messa ge] The system which generated this result transmitted reference range: 34.0-45.0 %. The reference range was not used to interpret this result as normal/abnormal. HEMOGLOBIN (test code = 718-7) 12.5 G/DL See_Comment [Automated messa ge] The system which generated this result transmitted reference range: 11.5-15.5 G/DL. The reference range was not used to interpret this result as normal/abnormal. LYMPHOCYTES (test code = 16775-2) 25.7 % MCH (test code = 79279-4) 30.8 PG See_Comment [Automated messa ge] The system which generated this result transmitted reference range: 25.0-33.0 PG. The reference range was not used to interpret this result as normal/abnormal. MCHC (test code = 61795-4) 33.0 G/DL See_Comment [Automated messa ge] The system which generated this result transmitted reference range: 31.0-36.0 G/DL. The reference range was not used to interpret this result as normal/abnormal. MCV (test code = 11808-0) 93.3 fL See_Comment [Automated messa ge] The system which generated this result transmitted reference range: 80.0-99.0 fL. The reference range was not used to interpret this result as normal/abnormal. MONOCYTES (test code = 90836-3) 6.7 % NEUTROPHILS (test code = 55819-7) 64.4 % PLATELET COUNT (test code = 26286-9) 324 K/UL See_Comment [Automated messa ge] The system which generated this result transmitted reference range: 130-400 K/UL. The reference range was not used to interpret this result as normal/abnormal. RBC (test code = 50724-9) 4.06 M/UL See_Comment [Automated messa ge] The system which generated this result transmitted reference range: 3.80-5.40 M/UL. The reference range was not used to interpret this result as normal/abnormal. RDW (test code = 81349-5) 12.6 % See_Comment [Automated messa ge] The system which generated this result transmitted reference range: 11.5-15.0 %. The reference range was not used to interpret this result as normal/abnormal. WBC (test code = 56028-2) 9.0 K/UL See_Comment [Automated messa ge] The system which generated this result transmitted reference range: 3.5-11.0 K/UL. The reference range was not used to interpret this result as normal/abnormal. HEMOGLOBIN [id number] 00:00:00* Test Item Value Reference Range Interpretation Comme [facility] HEMOGLOBIN A1c (test code = 4548-4) 7.7 % See_Comment H [Automated messa ge] The system which generated this result transmitted reference range: 4.2-5.6 %. The reference range was not used to interpret this result as normal/abnormal. LIPID PANEL WITH REFLEX DIRECT [id number] 00:00:00* Test Item Value Reference Range Interpretation Comme [facility] CALC LDL CHOL (test code = 88763-4) 36 MG/DL See_Comment [Automated messa ge] The [...] code = 2085-9) 55 MG/DL See_Comment [Automated messa ge] The system which generated this result transmitted reference range: >39 MG/DL. The reference range was not used to interpret this result as normal/abnormal. RISK RATIO LDL/HDL (test code = 91090-1) 0.65 RATIO See_Comment [Automated message] The system which generated this result transmitted reference range: <3.22 RATIO. The reference range was not used to interpret this result as normal/abnormal. TRIGLYCERIDES (test code = 2571-8) 139 MG/DL See_Comment [Automated [employer]] The system which generated this result transmitted reference range: <150 MG/DL. The reference range was not used to interpret this result as normal/abnormal. TSH + FREE T4 [id number] 00:00:00* Test Item Value Reference Range Interpretation Comme nts FREE T4 (THYROXINE) (test code = 3024-7) 1.74 NG/DL See_Comment [Automated message] The system which generated this result transmitted reference range: 0.80-1.90 NG/DL. The reference range was not used to interpret this result as normal/abnormal. TSH, THIRD GENERATION (test code = 77687-2) 1.420 UIU/ML See_Comment [Automated [employer]] The system which generated this result transmitted reference range: 0.400-4.100 UIU/ML. The reference range was not used to interpret this result as normal/abnormal. ALBUMIN/CREATININE RATIO, RANDOM [id number] 00:00:00* Test Item Value Reference Range Interpretation Comme nts ALBUMIN, URINE, RANDOM (test code = 45158-7) 2.6 MG/DL NOT ESTAB MG/DL CALC ALBUMIN/CREAT, RND (test code = 29832-4) 42 MG/G See_Comment H [Automated [employer]] The system which generated this result transmitted reference range: <30 MG/G. The reference range was not used to interpret this result as normal/abnormal. CREATININE, URINE, CONC. (test code = 2161-8) 62.4 MG/DL NOT ESTAB MG/DL COMPREHENSIVE METABOLIC [id number] 00:00:00* Test Item Value Reference Range Interpretation Comme nts ALBUMIN (test code = 1751-7) 4.6 G/DL See_Comment [Automated [employer]] The system which generated this result transmitted [...] result as normal/abnormal. CALCIUM (test code = 53032-8) 10.3 MG/DL See_Comment [Automated messa ge] The [...] as normal/abnormal. CALC GLOBULIN (test code = 87061-1) 2.8 G/DL See_Comment [Automated messa ge] The [...] normal/abnormal. eGFR (2020 CKD-EPI) (test code = 82676-5) 67 ML/MIN/1.73 See_Comment [Automated messa ge] The [...]
--- NOTE | 2023-08-09 01:08 | EDPHYS ---
Physician Documentation [facility] Name: Hortensia Bergman Age: 77 yrs Sex: Female : 1945 Arrival Date: 08/08/2023 Time: 23:43 Bed 17 Private MD: ED Physician Sabino Griffith HPI: 08/08 00:25 This 77 yrs old Female presents to ER via Ambulatory with complaints of cp Problem With Urinary Catheter. 00:25 The patient presents with Brewer catheter not draining. Onset: The symptoms/episode cp began/occurred yesterday, at 19:00. 00:25 Associated signs and symptoms: Pertinent positives: abdominal pain, Pertinent cp negatives: diarrhea, fever, vomiting. Historical: - Allergies: 00:04 Codeine; lg3 00:04 Iodine; lg3 - PMHx: 00:04 abd hernia; diabetes mellitus; Hypercholesterolemia; Hypertensive disorder; lg3 - PSHx: 00:04 Appendectomy; Cholecystectomy; lg3 - Immunization history:: Adult Immunizations up to date. - Infectious Disease History:: Denies. - Social history:: Smoking status: Patient denies any tobacco usage or history of. Patient/guardian denies using alcohol, street drugs. ROS: 00:30 Constitutional: HX per HPI cp 00:30 Constitutional: Negative for chills, fever, cp 00:30 Respiratory: Negative for cough, shortness of breath, wheezing, 00:30 Abdomen/GI: Positive for abdominal distension, abdominal pressure, 00:30 Neuro: Negative for altered mental status, weakness, 00:30 All other systems are negative, Exam: 00:33 Constitutional: The patient appears in no acute distress, alert, awake, non-toxic, well cp developed, well nourished, uncomfortable, 00:33 Head/Face: Normocephalic, atraumatic. cp 00:33 Cardiovascular: Rate: normal, 00:33 Respiratory: the patient does not display signs of respiratory distress, Respirations: normal, no use of accessory muscles, no retractions, labored breathing, is not present, 00:33 Abdomen/GI: Inspection: distension, that is mild, Palpation: soft, in all quadrants, moderate abdominal tenderness, in the right lower quadrant and left lower quadrant, voluntary guarding, is elicited in the right lower quadrant and left lower quadrant, Vital Signs: 00:02 BP 143 / 63; Pulse 81; Resp 16 S; Temp 97.5(O); Pulse Ox 100% on R/A; Weight 64.41 kg; lg3 Height 4 ft. 11 in. (R); 00:02 Body Mass Index 28.68 (64.41 kg, 149.86 cm) lg3 MDM: 00:17 Patient medically screened. cp 00:35 Differential diagnosis: bladder stone, obstructed Brewer catheter. cp 01:07 Data reviewed: vital signs, nurses notes, and as a result, I will discharge patient. cp 01:07 Counseling: I had a detailed discussion with the patient and/or guardian regarding the cp historical points, exam findings, and any diagnostic results supporting the discharge/admit diagnosis, to return to the emergency department if symptoms worsen or persist or if there are any questions or concerns that arise at home. Response to treatment: the patient's symptoms have resolved after treatment. 08/08 00:17 Order name: [facility]. Order: flush brewer; Complete Time: 01:20 cp Administered Medications: No medications were administered Disposition Summary: 08/09/23 01:08 Discharge Ordered Notes: Location: Home cp Problem: new cp Symptoms: are resolved cp Condition: Stable cp Diagnosis - Mechanical complication of urinary (indwelling) catheter cp Followup: cp - With: Private Physician - When: As needed - Reason: Worsening of condition Discharge Instructions: - Discharge Summary Sheet cp - Indwelling Urinary Catheter Care, Adult cp Forms: - Medication Reconciliation Form cp - Antibiotic Education cp - Prescription Opioid Use cp - Patient Portal Instructions cp - Leadership Thank You Letter cp Signatures: Miguel Hunt PA PA cp Able, Lacie RN RN lg3 Corrections: (The following items were deleted from the chart) 19:53 00:25 Onset: The symptoms/episode began/occurred today, cp cp
--- NOTE | 2023-08-09 01:08 | ER ---
Nurse's Notes [facility] Name: Hortensia Bergman Age: 77 yrs Sex: Female : 1945 Arrival Date: 08/08/2023 Time: 23:43 Bed 17 Private MD: Diagnosis: Mechanical complication of urinary (indwelling) catheter Presentation: 08/08 00:02 Chief complaint: Patient states: no urine in my Brewer since 1900 with pelvic pressure. lg3 Coronavirus screen: Client denies travel out of the [place] in the last 14 days. At this time, the client does not indicate any symptoms associated with coronavirus-19. Ebola Screen: No symptoms or risks identified at this time. Initial Sepsis Screen: Does the patient meet any 2 criteria? No. Patient's initial sepsis screen is negative. Does the patient have a suspected source of infection? No. Patient's initial sepsis screen is negative. Risk Assessment: Do you want to hurt yourself or someone else? Patient reports no desire to harm self or others. Onset of symptoms was August 08, 2023. 00:02 Method Of Arrival: Ambulatory lg3 00:02 Acuity: SPARKLE 4 lg3 Triage Assessment: 00:04 General: Appears in no apparent distress. uncomfortable, Behavior is calm, cooperative. lg3 Pain: Complains of pain in pelvis. EENT: No deficits noted. No signs and/or symptoms were reported regarding the EENT system. Neuro: No deficits noted. Small Agitation-Sedation Scale (RASS): 0 - Alert and Calm Level of Consciousness is awake, alert, obeys commands, Oriented to person, place, time, situation. Cardiovascular: No deficits noted. Denies chest pain, shortness of breath, Capillary refill < 3 seconds Clubbing of nail beds is absent JVD is absent Patient's skin is warm and dry. Respiratory: No deficits noted. Airway is patent Respiratory effort is even, unlabored, Respiratory pattern is regular, symmetrical. GI: No deficits noted. Abdomen is round non-distended. : Rbewer in place to gravity drainage Urine is clear, Last void was August 08, 2023. Reports inability to void, pain. Derm: No deficits noted. No signs and/or symptoms reported regarding the dermatologic system. Skin is intact, is healthy with good turgor, Skin is dry, Skin is normal, Skin temperature is warm. Musculoskeletal: No deficits noted. No signs and/or symptoms reported regarding the musculoskeletal system. Circulation, motion, and sensation intact. Range of motion: intact in all extremities. Historical: - Allergies: 00:04 Codeine; lg3 00:04 Iodine; lg3 - PMHx: 00:04 abd hernia; diabetes mellitus; Hypercholesterolemia; Hypertensive disorder; lg3 - PSHx: 00:04 Appendectomy; Cholecystectomy; lg3 - Immunization history:: Adult Immunizations up to date. - Infectious Disease History:: Denies. - Social history:: Smoking status: Patient denies any tobacco usage or history of. Patient/guardian denies using alcohol, street drugs. Screenin:21 [facility] ED Fall Risk Assessment (Adult) History of falling in the last 3 months, vc1 including since admission No falls in past 3 months (0 pts) Confusion or Disorientation No (0 pts) Intoxicated or Sedated No (0 pts) Impaired Gait Yes (1 pt) Mobility Assist Device Used Yes (1 pt) Altered Elimination No (0 pt) Score/Fall Risk Level 0 - 2 = Low Risk Oriented to surroundings, Maintained a safe environment, Educated pt \T\ family on fall prevention, incl call for assistance when getting out of bed. Abuse screen: Denies threats or abuse. Nutritional screening: No deficits noted. Tuberculosis screening: No symptoms or risk factors identified. Assessment: :22 General: Appears in no apparent distress. uncomfortable, unkempt, Behavior is calm, vc1 cooperative, appropriate for age. Pain: Complains of pain in suprapubic area Pain does not radiate. Pain currently is 10 out of 10 on a pain scale. Cardiovascular: Capillary refill < 3 seconds Patient's skin is warm and dry. Respiratory: Airway is patent Respiratory effort is even, unlabored, Respiratory pattern is regular, symmetrical, Breath sounds are clear bilaterally. GI: Abdomen is bladder distended. : Bladder is distended Reports inability to void, has brewer catheter. EENT: No deficits noted. No signs and/or symptoms were reported regarding the EENT system. Derm: Skin is intact, is healthy with good turgor, Skin is dry, Skin is normal, Skin temperature is warm. Musculoskeletal: Circulation, motion, and sensation intact. Capillary refill < 3 seconds, Range of motion:. Vital Signs: 00:02 BP 143 / 63; Pulse 81; Resp 16 S; Temp 97.5(O); Pulse Ox 100% on R/A; Weight 64.41 kg; lg3 Height 4 ft. 11 in. (R); 00:02 Body Mass Index 28.68 (64.41 kg, 149.86 cm) lg3 ED Course: 08/07 23:45 Patient arrived in ED. [id number] 23:52 Miguel Hunt PA is PHCP. ramos 23:52 Sabino Griffith MD is Attending Physician. cp 08/08 00:04 Triage completed. lg3 00:04 Arm band placed on right wrist. lg3 01:21 No provider procedures requiring assistance completed. Patient did not have IV access vc1 during this emergency room visit. 01:22 Bladder irrigated via Brewer normal saline returned yellow urine Patient tolerated well. vc1 Administered Medications: No medications were administered Medication: 01:22 VIS not applicable for this client. vc1 Outcome: 01:08 Discharge ordered by . cp 01:22 Discharged to home ambulatory, vc1 01:22 Condition: good 01:22 Discharge instructions given to patient, Instructed on discharge instructions, follow up and referral plans. Demonstrated understanding of instructions, follow-up care, 01:25 Patient left the ED. vc1 Signatures: Miguel Hunt PA PA cp Able, Lacie, RN RN lg3 Klaudia Connolly [email or web address] Livier Castillo RN RN vc1
[2023-08-09 07:34] VITALS: BP 143/63; TEMP 97.5; O2SAT 100
== END 2023-08-09 01:25 | disposition home or self-care (01) ==
LOC: ER 23:43
DX: T83.098A Other mechanical complication of other urinary catheter, initial encounter (principal)